=== PATIENT | female | born 1935 | race Caucasian/White ===

== ENCOUNTER 2017-05-30 13:54 | Inpatient (IN) | payer MEDICARE, SELFPAY ==
[2017-05-30] VITALS (15 sets, daily range): BP systolic 128–178; BP diastolic 63–100; PULSE 68–101; RESP 14–20; TEMP 36.5–36.8; O2SAT 96–98; BMI 24.3; BMI 24.1
--- NOTE | 2017-05-30 13:56 | NURSING ---
NO OLD EKGS
--- NOTE | 2017-05-30 14:11 | NURSING ---
NO LW OR POA
--- NOTE | 2017-05-30 14:21 | EKG12_ITS ---
Test Reason : CP Blood Pressure : / mmHG Vent. Rate : 100 BPM Atrial Rate : 100 BPM P-R Int : 166 ms QRS Dur : 102 ms QT Int : 360 ms P-R-T Axes : 063 -43 011 degrees QTc Int : 464 ms Normal sinus rhythm Left axis deviation Nonspecific ST abnormality Abnormal ECG Confirmed by AISHWARYA SOOD ([id number]), editor publications ROSINA ROMAN ([id number]) on 06/04/2017 2:05:06 PM Referred By: LEONILA Confirmed By:AISHWARYA SOOD
--- NOTE | 2017-05-30 14:22 | RAD_ITS ---
STUDY: X-RAY CHEST REASON FOR EXAM: Female, 81 years old. 3 day history of chest pain. TECHNIQUE: Single AP portable view of the chest. COMPARISON: Comparison is made with prior study dated March 22, 2017. FINDINGS: EKG electrodes are seen. Hyperinflation. There is no demonstrated pleural abnormality. Normal size heart. A right-sided dual-chamber pacemaker is seen. Normal mediastinum and nida. Normal visualized pulmonary arteries. There is atherosclerotic calcification of the aortic arch with tortuosity. There are degenerative changes of the visualized thoracic spine. Normal visualized ribs, clavicles, and shoulders. There is no demonstrated abnormality of the visualized soft tissue structures of the upper abdomen. RAD/Chest 1 View (Portable) IMPRESSION: Hyperinflation. The lungs are clear. Electronically Signed: Grabiel Gallagher MD at 14:55 EDT Tel [phone], Service support ,
[2017-05-30] MEDS: Aspirin 81 MG TAB.CHEW 324 MG PO (14:28)
[2017-05-30 14:30] LABS: Absolute Lymphocyte Count 1.82 X10^3/ul (0.83-4.51); Absolute Neutrophil Count 4.4 X10^3/uL (2.0-7.7); Basophil# 0.03 X10^3/uL; Basophil% 0.4 % (0-1); Eosinophil# 0.21 X10^3/uL; Hematocrit 36.3 % (37-47); Hemoglobin 12.4 g/dl (12.0-15.0); Lymphocyte # 1.82 X10^3/ul (4.0); Lymphocyte % 26.4 % (19-41); Mean Corp Hgb Conc 34.2 g/gl (32-36); Mean Corpuscular Volume 93.6 fL (81-99); Mean Platelet Vol. 9.8 fl (6.2-12.0); Monocyte# 0.43 X10^3/uL; Monocyte% 6.2 % (0-10); Neutrophil # 4.39 X10^3/uL (2.7-7.7); Neutrophil % 63.9 % (47-70); Platelet Count 192 K/mm3 (150-450); RBC Distribution Width CV 12.1 % (11.6-14.6); RBC Distribution Width SD 40.9 fl (35.1-43.9); Red Blood Count 3.88 M/mm3 (4.2-5.4); White Blood Count 6.9 K/mm3 (4.4-11.0)
[2017-05-30 14:31] LABS: POSITIVE COUNT NO; POSITIVE DIFFERENTIAL NO; POSITIVE MORPHOLOGY NO
[2017-05-30 14:40] LABS: Anion Gap 10 (5-15); BUN 19 mg/dL (7-18); Calcium,Total 9.3 mg/dL (8.5-10.1); Chloride 106 mmol/L (98-107); EST Glomerular Filtration Rate 57 mL/min (>60); Est Glom Filt Rate - Afr Amer 69 mL/min (>60); Estimated Creatinine Clearance 41.05 ml/min; Glucose 109 mg/dL (74-106); Potassium 4.5 mmol/L (3.5-5.1); Sodium Level 140 mmol/L (136-145)
--- NOTE | 2017-05-30 16:32 | ED.VISSUMM ---
- ER Visit Summary Date of Service: 05/30/17 Chief Complaint: Chest pain History of Present Illness: The patient is a 81 F history of CAD prior [place] pacemaker COPD. Patient states for 3 days she has had gradual intermittent chest pain as a heaviness. This mainly on the right side of her chest and radiates to her right shoulder. She has a pacemaker on that side and says she feels like it is the pocket for the pacemaker was then because it moves from time to time. She does have associated dyspnea. Denies any hemoptysis. No pleuritic nature of the pain. She denies fever or cough. No leg pain or swelling. No recent travel, surgery or hospitalization. No history of DVT or PE. No hemoptysis. Physical Examination: Well-appearing older female. Vital signs are stable afebrile. Pulse ox 90% on room air no signs of hypoxia. HEENT exam unremarkable. Neck nontender no JVD. Lungs clear to auscultation bilaterally. Heart regular rhythm no murmur. Chest wall she does have reproducible chest wall tenderness on the right and along the pacemaker. There is no ecchymosis or bruising. There is no redness or warmth. There is no signs of fluid or infection. There is no subcu air. Abdomen soft nontender. Normal bowel sounds no peritoneal signs. Extremities. Calves are without edema or cords. They are nontender. Neurologically she is awake and alert with no focal deficits. Test Results: Chest x-ray shows normal cardiac silhouette. Pacemaker on the right no acute abnormalities read both by myself and the radiologist. EKG sinus rhythm rate of 100. Nonspecific ST-T wave abnormalities. I do not have an old EKG available. The lady must have him she has had stress test but we cannot find any available at this time for comparison. CBC normal. BMP normal. Her initial troponin is slightly elevated 0.09 I did a repeated 2 hours and 0.12. Emergency Department Course and Treatment: Patient definitely has a reproducible chest wall component to this pain. However she describes as heaviness with shortness of breath. Along with 2 abnormal troponins a second higher than the first she will need admission for further evaluation and workup. I will discuss this with the hospitalist and also her child development director Dr. Abbasi. Treatment Plan: Admission for further cardiac evaluation. Disposition: Admission Impression: Acute chest pain uncertain etiology with abnormal troponin Also chest wall pain Right sided pacemaker History of CAD and [place]. This note was generated with [employer] dictation software. It may contain incorrect words, spelling, and punctuation that were not noted in review of the chart prior to signing ED Disposition - Plan for ED Patient: Chief Complaint: Chest Pain Referrals: Rox Huerta DO [Primary Care Provider] -
--- NOTE | 2017-05-30 16:39 | ED.DCSUM_ITS ---
- ER Visit Summary Date of Service: 05/30/17 Chief Complaint: Chest pain History of Present Illness: The patient is a 81 F history of CAD prior [place] pacemaker COPD. Patient states for 3 days she has had gradual intermittent chest pain as a heaviness. This mainly on the right side of her chest and radiates to her right shoulder. She has a pacemaker on that side and says she feels like it is the pocket for the pacemaker was then because it moves from time to time. She does have associated dyspnea. Denies any hemoptysis. No pleuritic nature of the pain. She denies fever or cough. No leg pain or swelling. No recent travel, surgery or hospitalization. No history of DVT or PE. No hemoptysis. Physical Examination: Well-appearing older female. Vital signs are stable afebrile. Pulse ox 90% on room air no signs of hypoxia. HEENT exam unremarkable. Neck nontender no JVD. Lungs clear to auscultation bilaterally. Heart regular rhythm no murmur. Chest wall she does have reproducible chest wall tenderness on the right and along the pacemaker. There is no ecchymosis or bruising. There is no redness or warmth. There is no signs of fluid or infection. There is no subcu air. Abdomen soft nontender. Normal bowel sounds no peritoneal signs. Extremities. Calves are without edema or cords. They are nontender. Neurologically she is awake and alert with no focal deficits. Test Results: Chest x-ray shows normal cardiac silhouette. Pacemaker on the right no acute abnormalities read both by myself and the radiologist. EKG sinus rhythm rate of 100. Nonspecific ST-T wave abnormalities. I do not have an old EKG available. The lady must have him she has had stress test but we cannot find any available at this time for comparison. CBC normal. BMP normal. Her initial troponin is slightly elevated 0.09 I did a repeated 2 hours and 0.12. Emergency Department Course and Treatment: Patient definitely has a reproducible chest wall component to this pain. However she describes as heaviness with shortness of breath. Along with 2 abnormal troponins a second higher than the first she will need admission for further evaluation and workup. I will discuss this with the hospitalist and also her satellite project site monitor Dr. Abbasi. Treatment Plan: Admission for further cardiac evaluation. Disposition: Admission Impression: Acute chest pain uncertain etiology with abnormal troponin Also chest wall pain Right sided pacemaker History of CAD and [place]. This note was generated with [employer] dictation software. It may contain incorrect words, spelling, and punctuation that were not noted in review of the chart prior to signing ED Disposition - Plan for ED Patient: Chief Complaint: Chest Pain Referrals: Rox Huerta DO [Primary Care Provider] -
--- NOTE | 2017-05-30 17:03 | NURSING ---
106 CP, BORDERLINE ELEVATED TROP ASHELFAH
--- NOTE | 2017-05-30 17:25 | PCM.HP.STD ---
Problem List (1) COPD (chronic obstructive pulmonary disease) Status: Chronic (2) Status post placement of cardiac pacemaker Status: Chronic (3) Hypothyroidism Status: Chronic (4) Hypertension Status: Chronic History of Present Illness Date of Admission: 05/30/17 Chief Complaint: Chest pain The patient is a 81 year old F with past medical history as mentioned above presented to the emergency room because of chest pain. Her symptoms started 2 days ago with right-sided chest pain, around her pacemaker and just down to it, dull aching pain, brought up by activity, intermittent pain, 7 out of 10 in severity, not radiating, associated with mild shortness of breath, aggravated by activity and without relieving factors. She denied associated dizziness, lightheadedness, syncope or presyncope. She mentioned that the pain is only around the pacemaker and pacemaker pops up when she lay on her left side. In the emergency room, her vital signs were stable. Her routine blood work was unremarkable. Her chest x-ray showed no acute findings. EKG revealed normal sinus rhythm without acute ischemic changes. Her first troponin was 0.09 and a second troponin went up to 0.12. She is being admitted for chest pain and borderline elevated troponin for evaluation. Past Medical History Past Medical History (Chronic Problems): Chronic Problems COPD (chronic obstructive pulmonary disease) (Chronic) Status post placement of cardiac pacemaker (Chronic) Left foot pain (Chronic) Ganglion cyst of left foot (Chronic) Bone spur of foot (Chronic) Hypothyroidism (Chronic) Hypertension (Chronic) Allergies metformin Allergy (Verified 05/30/17 14:00) Unknown Penicillins [PCN] Allergy (Verified 05/30/17 14:00) Unknown Home Medications: Ambulatory Orders Medication Instructions Recorded Cholecalciferol (VIT D3) [Vitamin 1,000 unit PO DAILY 04/16/15 D] Lansoprazole [Prevacid] 30 mg PO DAILY 04/16/15 Levothyroxine Sodium [Unithroid] 50 mcg PO DAILY 04/16/15 Lisinopril [Zestril] 10 mg PO DAILY 04/16/15 Fluticasone/Salmeterol [Advair 1 each IH BID 12/01/16 250-50 Diskus] Ipratropium/Albuterol Respimat 1 puff INHALATION BID 12/01/16 [Combivent Respimat Inhal [place]] Buspirone HCl [Buspirone HCl] 7.5 mg PO BID 05/30/17 Ipratropium/Albuterol Sulfate 3 ml INHALATION BID PRN 05/30/17 [Duoneb] Surgical History: noncontributory Psychiatric History: No pertinent psych hx 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 Denies: Edema, Heaviness, Light Headedness, Orthopnea, Palpitations, Paroxysmal Noc. Dyspnea, Syncope Respiratory: Reports: Shortness of Breath. Denies: Cough, Pleuritic Pain, Sputum production, Wheezing Gastrointestinal: Denies: Abdominal Pain, Constipation, Diarrhea, Dyspepsia, Nausea, Vomiting Genitourinary: Denies: Dysuria, Frequency, Hematuria Musculoskeletal: Denies: Arm Pain, Back Pain, Foot Pain Skin: Denies: Dryness, Rash Neurological: Denies: Balance problems, Double vision, Change in Speech, Slurred speech, Confusion, Focal weakness, Headaches, Incoordination Psychiatric: Denies: Anxiety, Depression Endocrine: Denies: Change in Body Habitus, Polydipsia VTE Information - Inpt Only VTE Present on Admission: No VTE Mechan Device Prophylaxis: None VTE Pharm Prophylaxis ordered?: Yes - Physical Exam General: Alert, Oriented x3, Cooperative, No apparent distress HEENT: Atraumatic, PERRLA, EOMI Oral: Moist Mucosa, No Gingival or Mucosal Lesions/ Ulcerations Neck: Supple, No JVD, Negative Carotid Bruits, Trachea Midline, Thyroid Normal Size and Texture Lungs: Clear to auscultation, No rhonchi, No wheeze, No rales, Diminished Cardiovascular: Regular rate, Regular Rhythm, Normal S1, Normal S2, PMI Normal Abdomen: Bowel Sounds Present, Soft, Non Tender, Non-Distended, No Hepato-splenomegaly Extremities: No clubbing, No cyanosis, No edema Skin: No rashes, No breakdown Lymphatic: No Cervical, Supraclavicular, or Inguinal Adenopathy Neurological: Cranial nerves II-XII grossly intact, Motor Exam 5/5 strength throughout Psych/Mental Status: Normal Affect, Appropriate, Alert and oriented to time, place, person, mood and affect Vital Signs Temp Pulse Resp BP Pulse Ox 98.0 F 91 14 162/89 H 97 05/30/17 13:54 05/30/17 17:00 05/30/17 16:09 05/30/17 17:00 05/30/17 17:00 Laboratory Tests 05/30/17 05/30/17 05/30/17 Range/Units 15:48 14:00 14:00 WBC 6.9 (4.4-11.0) K/mm3 RBC 3.88 L (4.2-5.4) M/mm3 Hgb 12.4 (12.0-15.0) g/dl Hct 36.3 L (37-47) % MCV 93.6 (81-99) fL MCH 32.0 (27.0-32.0) pg MCHC 34.2 (32-36) g/gl RDW 12.1 (11.6-14.6) % RDW Differential 40.9 (35.1-43.9) fl Plt Count 192 (150-450) K/mm3 MPV 9.8 (6.2-12.0) fl Immature Gran % (Auto) 0.100 (0.0-0.9) % Neut % (Auto) 63.9 (47-70) % Lymph % (Auto) 26.4 (19-41) % [place] % (Auto) 6.2 (0-10) % Eos % (Auto) 3.0 (0-5) % Baso % (Auto) 0.4 (0-1) % Absolute Neuts (auto) 4.4 (2.0-7.7) X10^3/uL Absolute Lymphs (auto) 1.82 (0.83-4.51) X10^3/ul Total Counted Not Reportable Sodium 140 (136-145) mmol/L Potassium 4.5 (3.5-5.1) mmol/L Chloride 106 (98-107) mmol/L Carbon Dioxide 24.0 (21.0-32.0) mmol/L Anion Gap 10 (5-15) BUN 19 H (7-18) mg/dL Creatinine 1.00 (0.55-1.02) mg/dL Estim Creat Clear Calc 41.05 ml/min Est GFR (MDRD) Af Amer 69 (>60) mL/min Est GFR (MDRD) Non-Af 57 L (>60) mL/min BUN/Creatinine Ratio 19.0 (10-20) RATIO Glucose 109 H (74-106) mg/dL Calcium 9.3 (8.5-10.1) mg/dL Troponin I 0.12 H 0.09 H (<0.06) ng/mL Clinical Impression(s) from Imaging Studies Chest X-Ray 05/30/17 14:22 IMPRESSION: Hyperinflation. The lungs are clear. Electronically Signed: Grabiel Gallagher MD at 14:55 EDT Tel [phone], Service support , Assessment/Plan This is a 81 years old female patient medicine because of right-sided chest pain, found to have borderline elevated troponin and she is being admitted for evaluation. #1 atypical chest pain/borderline elevated troponin: The pain is on the right side and it is around the pacemaker location. Revealed no acute ischemic changes. Troponin was 0.09 initially and then went up to 0.12. Patient mentioned that her pain is improving. Her vital signs are stable. Chest x-ray showed no acute findings. Plan: Admit to PCU, cardiac monitoring, serial cardiac enzymes, repeat EKG tomorrow morning, IV morphine as needed for pain, cardiology consult. #2 hypertension: Blood pressure stable, continue lisinopril. #3 hypothyroidism: Continue levothyroxine. #4 COPD: Clinically stable, pulse ox is normal on room air. Plan to continue Advair, albuterol as needed. Chest x-ray showed no acute findings. #5 status post pacemaker: Not sure why she had this pacemaker. Rate is controlled. Cardiology consulted. #6 DVT prophylaxis: Subcu Lovenox. This note was generated with [employer] software. It may contain incorrect words, spelling, and punctuation that were not noted in checking the note before signing. Code Visit Inpatient E&M: 41169 Init Hosp L3
--- NOTE | 2017-05-30 17:29 | HP.PCM_ITS ---
Problem List (1) COPD (chronic obstructive pulmonary disease) Status: Chronic (2) Status post placement of cardiac pacemaker Status: Chronic (3) Hypothyroidism Status: Chronic (4) Hypertension Status: Chronic History of Present Illness Date of Admission: 05/30/17 Chief Complaint: Chest pain The patient is a 81 year old F with past medical history as mentioned above presented to the emergency room because of chest pain. Her symptoms started 2 days ago with right-sided chest pain, around her pacemaker and just down to it, dull aching pain, brought up by activity, intermittent pain, 7 out of 10 in severity, not radiating, associated with mild shortness of breath, aggravated by activity and without relieving factors. She denied associated dizziness, lightheadedness, syncope or presyncope. She mentioned that the pain is only around the pacemaker and pacemaker pops up when she lay on her left side. In the emergency room, her vital signs were stable. Her routine blood work was unremarkable. Her chest x-ray showed no acute findings. EKG revealed normal sinus rhythm without acute ischemic changes. Her first troponin was 0.09 and a second troponin went up to 0.12. She is being admitted for chest pain and borderline elevated troponin for evaluation. Past Medical History Past Medical History (Chronic Problems): Chronic Problems COPD (chronic obstructive pulmonary disease) (Chronic) Status post placement of cardiac pacemaker (Chronic) Left foot pain (Chronic) Ganglion cyst of left foot (Chronic) Bone spur of foot (Chronic) Hypothyroidism (Chronic) Hypertension (Chronic) Allergies metformin Allergy (Verified 05/30/17 14:00) Unknown Penicillins [PCN] Allergy (Verified 05/30/17 14:00) Unknown Home Medications: Ambulatory Orders Medication Instructions Recorded Cholecalciferol (VIT D3) [Vitamin 1,000 unit PO DAILY 04/16/15 D] Lansoprazole [Prevacid] 30 mg PO DAILY 04/16/15 Levothyroxine Sodium [Unithroid] 50 mcg PO DAILY 04/16/15 Lisinopril [Zestril] 10 mg PO DAILY 04/16/15 Fluticasone/Salmeterol [Advair 1 each IH BID 12/01/16 250-50 Diskus] Ipratropium/Albuterol Respimat 1 puff INHALATION BID 12/01/16 [Combivent Respimat Inhal [place]] Buspirone HCl [Buspirone HCl] 7.5 mg PO BID 05/30/17 Ipratropium/Albuterol Sulfate 3 ml INHALATION BID PRN 05/30/17 [Duoneb] Surgical History: noncontributory Psychiatric History: No pertinent psych hx 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 Denies: Edema, Heaviness, Light Headedness, Orthopnea, Palpitations, Paroxysmal Noc. Dyspnea, Syncope Respiratory: Reports: Shortness of Breath. Denies: Cough, Pleuritic Pain, Sputum production, Wheezing Gastrointestinal: Denies: Abdominal Pain, Constipation, Diarrhea, Dyspepsia, Nausea, Vomiting Genitourinary: Denies: Dysuria, Frequency, Hematuria Musculoskeletal: Denies: Arm Pain, Back Pain, Foot Pain Skin: Denies: Dryness, Rash Neurological: Denies: Balance problems, Double vision, Change in Speech, Slurred speech, Confusion, Focal weakness, Headaches, Incoordination Psychiatric: Denies: Anxiety, Depression Endocrine: Denies: Change in Body Habitus, Polydipsia VTE Information - Inpt Only VTE Present on Admission: No VTE Mechan Device Prophylaxis: None VTE Pharm Prophylaxis ordered?: Yes - Physical Exam General: Alert, Oriented x3, Cooperative, No apparent distress HEENT: Atraumatic, PERRLA, EOMI Oral: Moist Mucosa, No Gingival or Mucosal Lesions/ Ulcerations Neck: Supple, No JVD, Negative Carotid Bruits, Trachea Midline, Thyroid Normal Size and Texture Lungs: Clear to auscultation, No rhonchi, No wheeze, No rales, Diminished Cardiovascular: Regular rate, Regular Rhythm, Normal S1, Normal S2, PMI Normal Abdomen: Bowel Sounds Present, Soft, Non Tender, Non-Distended, No Hepato- splenomegaly Extremities: No clubbing, No cyanosis, No edema Skin: No rashes, No breakdown Lymphatic: No Cervical, Supraclavicular, or Inguinal Adenopathy Neurological: Cranial nerves II-XII grossly intact, Motor Exam 5/5 strength throughout Psych/Mental Status: Normal Affect, Appropriate, Alert and oriented to time, place, person, mood and affect Vital Signs Temp Pulse Resp BP Pulse Ox 98.0 F 91 14 162/89 H 97 05/30/17 13:54 05/30/17 17:00 05/30/17 16:09 05/30/17 17:00 05/30/17 17:00 Laboratory Tests 3 05/30/17 05/30/17 05/30/17 Range/Units 15:48 14:00 14:00 WBC 6.9 (4.4-11.0) K/mm3 RBC 3.88 L (4.2-5.4) M/mm3 Hgb 12.4 (12.0-15.0) g/dl Hct 36.3 L (37-47) % MCV 93.6 (81-99) fL MCH 32.0 (27.0-32.0) pg MCHC 34.2 (32-36) g/gl RDW 12.1 (11.6-14.6) % RDW Differential 40.9 (35.1-43.9) fl Plt Count 192 (150-450) K/mm3 MPV 9.8 (6.2-12.0) fl Immature Gran % (Auto) 0.100 (0.0-0.9) % Neut % (Auto) 63.9 (47-70) % Lymph % (Auto) 26.4 (19-41) % Person % (Auto) 6.2 (0-10) % Eos % (Auto) 3.0 (0-5) % Baso % (Auto) 0.4 (0-1) % Absolute Neuts (auto) 4.4 (2.0-7.7) X10^3/uL Absolute Lymphs (auto) 1.82 (0.83-4.51) X10^3/ul Total Counted Not Reportable Sodium 140 (136-145) mmol/L Potassium 4.5 (3.5-5.1) mmol/L Chloride 106 (98-107) mmol/L Carbon Dioxide 24.0 (21.0-32.0) mmol/L Anion Gap 10 (5-15) BUN 19 H (7-18) mg/dL Creatinine 1.00 (0.55-1.02) mg/dL Estim Creat Clear Calc 41.05 ml/min Est GFR (MDRD) Af Amer 69 (>60) mL/min Est GFR (MDRD) Non-Af 57 L (>60) mL/min BUN/Creatinine Ratio 19.0 (10-20) RATIO Glucose 109 H (74-106) mg/dL Calcium 9.3 (8.5-10.1) mg/dL Troponin I 0.12 H 0.09 H (<0.06) ng/mL Clinical Impression(s) from Imaging Studies Chest X-Ray 05/30/17 14:22 IMPRESSION: Hyperinflation. The lungs are clear. Electronically Signed: Grabiel Gallagher MD at 14:55 EDT Tel [phone], Service support , Assessment/Plan This is a 81 years old female patient medicine because of right-sided chest pain , found to have borderline elevated troponin and she is being admitted for evaluation. #1 atypical chest pain/borderline elevated troponin: The pain is on the right side and it is around the pacemaker location. Revealed no acute ischemic changes. Troponin was 0.09 initially and then went up to 0.12. Patient mentioned that her pain is improving. Her vital signs are stable. Chest x-ray showed no acute findings. Plan: Admit to PCU, cardiac monitoring, serial cardiac enzymes, repeat EKG tomorrow morning, IV morphine as needed for pain, cardiology consult. #2 hypertension: Blood pressure stable, continue lisinopril. #3 hypothyroidism: Continue levothyroxine. #4 COPD: Clinically stable, pulse ox is normal on room air. Plan to continue Advair, albuterol as needed. Chest x-ray showed no acute findings. #5 status post pacemaker: Not sure why she had this pacemaker. Rate is controlled. Cardiology consulted. #6 DVT prophylaxis: Subcu Lovenox. This note was generated with [employer] software. It may contain incorrect words, spelling, and punctuation that were not noted in checking the note before signing. Code Visit Inpatient E&M: 84990 Init Hosp L3
--- NOTE | 2017-05-30 17:30 | ED.RN ---
DR. SAUCEDA WANTS TO SEE PT PRIOR TO GOING TO PCU.
--- NOTE | 2017-05-30 17:48 | CON.PCM_ITS ---
Reason for Consult Date of Consultation: 05/30/17 Reason for Consultation: Chest discomfort. History of Present Illness: The patient is a 81 year old F with past medical history consisting of coronary artery disease status post pacemaker placement who presented to the emergency room because of chest pain. Her symptoms started 2 days ago with right-sided chest pain, around her pacemaker and just down to it, dull aching pain, brought up by activity, intermittent pain, 7 out of 10 in severity, not radiating, associated with mild shortness of breath, aggravated by activity and without relieving factors. She denied associated dizziness, lightheadedness, syncope or presyncope. She mentioned that the pain is only around the pacemaker and pacemaker pops up when she lay on her left side. The pain around her pacemaker site however is different from this discomfort that she had. She had been seen in the office last fall and complained of mild chest discomfort and underwent a pharmacologic myocardial perfusion stress test in January 2017 which did not demonstrate any evidence of ischemia. You do remember that her last catheterization was performed in 2011. At that time demonstrated ejection fraction of 65%, left anterior descending artery with 20-30% proximal stenosis, first diagonal vessel with 50% ostial stenosis, small septal hspt tutor with 2030% stenosis in the circumflex artery 20% stenosis. Medical therapy was recommended. In the emergency room, her vital signs were stable. Her routine blood work was unremarkable. Her chest x-ray showed no acute findings. EKG revealed normal sinus rhythm without acute ischemic changes. Her first troponin was 0.09 and a second troponin went up to 0.12. I was called because of concerns regarding the elevated troponin and chest pain. She currently is pain-free. Past Medical History Allergies/Adverse Reactions: Allergies metformin Allergy (Verified 05/30/17 14:00) Unknown Penicillins [PCN] Allergy (Verified 05/30/17 14:00) Unknown Home Medications: Ambulatory Orders Medication Instructions Recorded Cholecalciferol (VIT D3) [Vitamin 1,000 unit PO DAILY 04/16/15 D] Lansoprazole [Prevacid] 30 mg PO DAILY 04/16/15 Levothyroxine Sodium [Unithroid] 50 mcg PO DAILY 04/16/15 Lisinopril [Zestril] 10 mg PO DAILY 04/16/15 Fluticasone/Salmeterol [Advair 1 each IH BID 12/01/16 250-50 Diskus] Ipratropium/Albuterol Respimat 1 puff INHALATION BID 12/01/16 [Combivent Respimat Inhal Fate] Buspirone HCl [Buspirone HCl] 7.5 mg PO BID 05/30/17 Ipratropium/Albuterol Sulfate 3 ml INHALATION BID PRN 05/30/17 [Duoneb] Past Medical History (Chronic Problems): Chronic Problems COPD (chronic obstructive pulmonary disease) (Chronic) Status post placement of cardiac pacemaker (Chronic) Left foot pain (Chronic) Ganglion cyst of left foot (Chronic) Bone spur of foot (Chronic) Hypothyroidism (Chronic) Hypertension (Chronic) Surgical History: noncontributory Psychiatric History: No pertinent psych hx MEDICAL POLICY SPECIALIST History: No pertinent MEDICAL POLICY SPECIALIST history - *Family History Maternal History Items: No pertinent history Paternal History Items: No pertinent history Smoking Status: Former smoker Alcohol: None Drugs: None Review of Systems - Review of Systems General: Denies: Fever, Night Sweats, Fatigue Cardiovascular: Reports: Chest Discomfort, Chest Discomfort at Rest. Denies: Shortness of Breath, Orthopnea, PND, Peripheral Edema, Palpitations, Lightheadedness, Dizziness, Near Syncope, Syncope Respiratory: Denies: Cough, Sputum Production, Hemoptysis Gastrointestinal: Denies: Hematemesis, Hematochezia, Melena Genitourinary: Denies: Dysuria, Hematuria Skin: Denies: Rash Subjectve: Pleasant lady in no apparent distress Objective: Vital Signs Temp Pulse Resp BP Pulse Ox 98.0 F 91 14 162/89 H 97 05/30/17 13:54 05/30/17 17:00 05/30/17 16:09 05/30/17 17:00 05/30/17 17:00 General: Awake, Alert, Oriented x 3 HEENT: PERRL, EOMI, Sclera Non Icteric Neck: Supple, Good ROM, No Lymph Node Enlargement Chest Wall: - - Pacer right chest cavity. Lungs: Clear to auscultation Cardiovascular: Regular Rhythm, Normal S1, Normal S2, No Murmurs, No Rubs, No Gallops Vascular: No Carotid Bruits, Normal Femoral Pulses, Normal Radial Pulses, Normal Dorsalis Pedal Pulse, Normal Posterior Tibial Pulses Abdomen: Bowel Sounds Present, Soft, Non Tender, No HSM, No Organomegaly Extremities: No Cyanosis, No Clubbing, No edema Neurological: No Focal Motor or Sensory Deficit Psych/Mental Status: Appropriate Rhythm: EKG: Normal sinus rhythm with nonspecific ST-T wave changes incomplete right bundle branch block. Assessment/Plan 1. Chest pain. Patient presents with chest pain with a different location but with concerning pattern. She also has an abnormal cardiac troponin enzyme. She did have mild coronary artery disease documented approximately 6 years ago and recently had a myocardial perfusion stress test which demonstrated no evidence of ischemia. On the basis of the above as well as the elevated troponin I do not think there is a reason to repeat stress testing. It may be prudent to proceed with a cardiac catheterization to exclude any progression of coronary disease. More than likely it may be secondary to small vessel disease. I have discussed this with her and in the presence of her other family members and she agrees to proceed. We will schedule this on . 2. Hypertension Her blood pressure is under good control on the current medical therapy and I would not suggest making any major changes at this time. 3. Status post pacemaker placement She is status post pacemaker placement with change out. She has been following up in the office and my plan for now is for her to continue office follow-up. Thank you for allowing me to participate in the care of your patient. Please don't hesitate to call if any issues arise
[2017-05-30] MEDS: Clopidogrel Bisulfate 300 MG Tablet PO (18:22)
--- NOTE | 2017-05-30 19:41 | EKG12_ITS ---
Test Reason : CP Blood Pressure : / mmHG Vent. Rate : 081 BPM Atrial Rate : 081 BPM P-R Int : 170 ms QRS Dur : 110 ms QT Int : 412 ms P-R-T Axes : 069 -48 -19 degrees QTc Int : 478 ms Normal sinus rhythm Right bundle branch block Left anterior fascicular block Bifascicular block Abnormal ECG When compared with ECG of 30-MAY-2017 13:56, MANUAL COMPARISON REQUIRED, DATA IS UNCONFIRMED Confirmed by AISHWARYA SOOD ([id number]), non linear editor ROSINA ROMAN ([id number]) on 06/04/2017 2:44:59 PM Referred By: DR BALDERRAMA Confirmed By:AISHWARYA SOOD
[2017-05-30] MEDS: Nitroglycerin Oint 1 INCH PACKET TRANSDERM. (20:58)
--- NOTE | 2017-05-30 22:59 | NURSING ---
Nitro paste was applied unscheduled at 2057. Next dose is due at 0000. RN called pharmacy to ask for doses to be retimed. Jian in pharmacy said to give next dose at 0130 and continue regular schedule after that.
[2017-05-31] VITALS (26 sets, daily range): BP systolic 95–147; BP diastolic 48–84; PULSE 60–83; RESP 11–23; TEMP 36.4–36.9; O2SAT 92–100
[2017-05-31] MEDS: Nitroglycerin Oint 1 INCH PACKET TRANSDERM. ×2 (01:38→06:24)
--- NOTE | 2017-05-31 03:50 | NURSING ---
Pt does not want to watch heart video at this time.
--- NOTE | 2017-05-31 05:55 | EKG12_ITS ---
Test Reason : AM Blood Pressure : / mmHG Vent. Rate : 067 BPM Atrial Rate : 067 BPM P-R Int : 126 ms QRS Dur : 108 ms QT Int : 478 ms P-R-T Axes : 030 -48 -49 degrees QTc Int : 505 ms Suspect unspecified pacemaker failure Sinus rhythm with occasional Premature ventricular complexes alternating with paced atrial rhythm Right bundle branch block Left anterior fascicular block Prolonged QT Abnormal ECG When compared with ECG of 30-MAY-2017 20:35, MANUAL COMPARISON REQUIRED, DATA IS UNCONFIRMED Confirmed by AISHWARYA SOOD ([id number]), editor producer ROSINA ROMAN ([id number]) on 06/04/2017 2:47:15 PM Referred By: REDDY Confirmed By:AISHWARYA SOOD
[2017-05-31] MEDS: 0.9% Normal Saline 1,000 ML 15 ML IV (06:24)
[2017-05-31] MEDS: Levothyroxine 50 MCG Tablet PO (06:24)
[2017-05-31] MEDS: Albuterol 2.5 MG/3 ML VIAL.NEB. INHALATION ×2 (06:50→18:46)
[2017-05-31] MEDS: Budesonide Respules 0.5 MG/2 ML AMPUL.NEB. INHALATION ×2 (06:50→18:46)
[2017-05-31 06:59] LABS: Color, Urine Yellow (Yellow); Glucose, Dipstick Normal (Normal); Ketone-Dipstick Negative (Negative); Leukocyte Esterase-Dipstick 500 /ul (Negative); Nitrite-Dipstick Negative (Negative); Occult Blood-Urine Negative /ul (Negative); Protein-Dipstick Negative (Negative); Urine Bilirubin Dipstick Negative (Negative); Urine Clarity Clear (Clear); Urine Urobilinogen Normal (Normal); Urine pH 6.5 (5.0 - 8.0)
[2017-05-31] MEDS: Clopidogrel Bisulfate 75 MG Tablet PO (07:18)
[2017-05-31] MEDS: Lisinopril 10 MG Tablet PO (07:18)
[2017-05-31 08:04] LABS: Absolute Lymphocyte Count 1.77 X10^3/ul (0.83-4.51); Absolute Neutrophil Count 4.1 X10^3/uL (2.0-7.7); Basophil# 0.02 X10^3/uL; Basophil% 0.3 % (0-1); Eosinophil# 0.24 X10^3/uL; Eosinophils% 3.6 % (0-5); Hematocrit 34.7 % (37-47); Hemoglobin 11.6 g/dl (12.0-15.0); Lymphocyte # 1.77 X10^3/ul (4.0); Lymphocyte % 26.5 % (19-41); Mean Corp Hgb Conc 33.4 g/gl (32-36); Mean Corpuscular Hgb 31.3 pg (27.0-32.0); Mean Corpuscular Volume 93.5 fL (81-99); Mean Platelet Vol. 9.3 fl (6.2-12.0); Monocyte# 0.52 X10^3/uL; Monocyte% 7.8 % (0-10); Neutrophil # 4.13 X10^3/uL (2.7-7.7); Neutrophil % 61.7 % (47-70); Platelet Count 157 K/mm3 (150-450); RBC Distribution Width CV 12.5 % (11.6-14.6); RBC Distribution Width SD 42.4 fl (35.1-43.9); Red Blood Count 3.71 M/mm3 (4.2-5.4); White Blood Count 6.7 K/mm3 (4.4-11.0)
[2017-05-31 08:07] LABS: International Normalized Ratio 1.1; Prothrombin Time (Protime)PT. 13.7 SECONDS (11.7-14.9)
[2017-05-31 08:08] LABS: Partial Thromboplast Time 33.8 Seconds (24.1-36.2)
[2017-05-31 08:13] LABS: POSITIVE COUNT NO; POSITIVE DIFFERENTIAL NO; POSITIVE MORPHOLOGY NO
[2017-05-31 08:18] LABS: Anion Gap 8 (5-15); BUN 14 mg/dL (7-18); BUN/Creat Ratio 16.4 RATIO (10-20); Calcium,Total 8.7 mg/dL (8.5-10.1); Chloride 109 mmol/L (98-107); Creatinine, Serum 0.86 mg/dL (0.55-1.02); EST Glomerular Filtration Rate 68 mL/min (>60); Est Glom Filt Rate - Afr Amer 82 mL/min (>60); Estimated Creatinine Clearance 47.73 ml/min; Glucose 99 mg/dL (74-106); Potassium 4.2 mmol/L (3.5-5.1); Sodium Level 142 mmol/L (136-145)
[2017-05-31] MEDS: Pantoprazole Sodium 40 MG Tablet PO (11:18)
--- NOTE | 2017-05-31 12:43 | PCM.PN.CARD ---
Subjectve: Patient seen and evaluated. Objective: Vital Signs Temp Pulse Resp BP Pulse Ox 98.5 F 76 16 109/65 95 05/31/17 07:48 05/31/17 11:03 05/31/17 07:48 05/31/17 07:48 05/31/17 07:48 Oxygen Delivery Method Room Air Weight: 145 lb 3.2 oz Body Mass Index (BMI) 24.1 Intake and Output for Last 24 Hours 05/29/17 05/30/17 05/31/17 23:59 23:59 23:59 Intake Total 924 / 924 60 60 Balance 924 / 924 60 General: Awake, Alert, Oriented x 3 HEENT: PERRL, EOMI, Sclera Non Icteric Neck: Supple, Good ROM, No Lymph Node Enlargement Lungs: Clear to auscultation Cardiovascular: Regular Rhythm, Normal S1, Normal S2, No Murmurs, No Rubs, No Gallops Vascular: No Carotid Bruits, Normal Femoral Pulses, Normal Radial Pulses, Normal Dorsalis Pedal Pulse, Normal Posterior Tibial Pulses Abdomen: Bowel Sounds Present, Soft, Non Tender, No HSM, No Organomegaly Extremities: No Cyanosis, No Clubbing, No edema Neurological: No Focal Motor or Sensory Deficit 05/30/17 21:17: Troponin I 0.14 H 05/31/17 01:48: Troponin I 0.19 H 05/31/17 06:00: Urine Color Yellow, Urine Clarity Clear, Urine pH 6.5, Ur Specific [place] 1.010, Urine Protein Negative, Urine Glucose (UA) Normal, Urine Ketones Negative, Urine Occult Blood Negative, Urine Nitrite Negative, Urine Bilirubin Negative, Urine Urobilinogen Normal, Ur Leukocyte Esterase 500 H 05/31/17 07:43: WBC 6.7, RBC 3.71 L, Hgb 11.6 L, Hct 34.7 L, MCV 93.5, MCH 31.3, MCHC 33.4, RDW 12.5, RDW Differential 42.4, Plt Count 157, MPV 9.3, Immature Gran % (Auto) 0.100, Neut % (Auto) 61.7, Lymph % (Auto) 26.5, Gem % (Auto) 7.8, Eos % (Auto) 3.6, Baso % (Auto) 0.3, Absolute Neuts (auto) 4.1, Total Counted Not Reportable 05/31/17 07:43: Sodium 142, Potassium 4.2, Chloride 109 H, Carbon Dioxide 25.0, Anion Gap 8, BUN 14, Creatinine 0.86, Est GFR (MDRD) Af Amer 82, Est GFR (MDRD) Non-Af 68, BUN/Creatinine Ratio 16.4, Glucose 99, Calcium 8.7 05/31/17 07:43: PT 13.7, INR 1.1, APTT 33.8 Rhythm: EKG: Normal sinus rhythm with no acute changes. Assessment/Plan 1. Chest pain. Patient presents with chest pain with a different location but with concerning pattern. She also has an abnormal cardiac troponin enzyme. She underwent cardiac catheterization today which demonstrated the following: Left main coronary artery which is normal. Left anterior descending artery with mild disease. First septal director of trauma with ostial 30-40% stenosis. Dominant left circumflex artery with mid tandem 80% stenotic lesions. Nondominant right coronary artery with ostial 40% stenosis. Preserved left ventricular systolic function. Based on the above angiographic findings the patient will be considered for angioplasty and stenting of the circumflex artery. Above discussed with interventionalist and patient. 2. Hypertension Her blood pressure is under good control on the current medical therapy and I would not suggest making any major changes at this time. 3. Status post pacemaker placement She is status post pacemaker placement with change out. She has been following up in the office and my plan for now is for her to continue office follow-up. Thank you for allowing me to participate in the care of your patient. Please don't hesitate to call if any issues arise
--- NOTE | 2017-05-31 12:46 | PN.CARD_ITS ---
Subjectve: Patient seen and evaluated. Objective: Vital Signs Temp Pulse Resp BP Pulse Ox 98.5 F 76 16 109/65 95 05/31/17 07:48 05/31/17 11:03 05/31/17 07:48 05/31/17 07:48 05/31/17 07:48 Oxygen Delivery Method Room Air Weight: 145 lb 3.2 oz Body Mass Index (BMI) 24.1 Intake and Output for Last 24 Hours 05/29/17 05/30/17 05/31/17 23:59 23:59 23:59 Intake Total 924 / 924 60 60 Balance 924 / 924 60 General: Awake, Alert, Oriented x 3 HEENT: PERRL, EOMI, Sclera Non Icteric Neck: Supple, Good ROM, No Lymph Node Enlargement Lungs: Clear to auscultation Cardiovascular: Regular Rhythm, Normal S1, Normal S2, No Murmurs, No Rubs, No Gallops Vascular: No Carotid Bruits, Normal Femoral Pulses, Normal Radial Pulses, Normal Dorsalis Pedal Pulse, Normal Posterior Tibial Pulses Abdomen: Bowel Sounds Present, Soft, Non Tender, No HSM, No Organomegaly Extremities: No Cyanosis, No Clubbing, No edema Neurological: No Focal Motor or Sensory Deficit 05/30/17 21:17: Troponin I 0.14 H 05/31/17 01:48: Troponin I 0.19 H 05/31/17 06:00: Urine Color Yellow, Urine Clarity Clear, Urine pH 6.5, Ur Specific [place] 1.010, Urine Protein Negative, Urine Glucose (UA) Normal, Urine Ketones Negative, Urine Occult Blood Negative, Urine Nitrite Negative, Urine Bilirubin Negative, Urine Urobilinogen Normal, Ur Leukocyte Esterase 500 H 05/31/17 07:43: WBC 6.7, RBC 3.71 L, Hgb 11.6 L, Hct 34.7 L, MCV 93.5, MCH 31.3 , MCHC 33.4, RDW 12.5, RDW Differential 42.4, Plt Count 157, MPV 9.3, Immature Gran % (Auto) 0.100, Neut % (Auto) 61.7, Lymph % (Auto) 26.5, [place] % (Auto) 7.8 , Eos % (Auto) 3.6, Baso % (Auto) 0.3, Absolute Neuts (auto) 4.1, Total Counted Not Reportable 05/31/17 07:43: Sodium 142, Potassium 4.2, Chloride 109 H, Carbon Dioxide 25.0, Anion Gap 8, BUN 14, Creatinine 0.86, Est GFR (MDRD) Af Amer 82, Est GFR (MDRD) Non-Af 68, BUN/Creatinine Ratio 16.4, Glucose 99, Calcium 8.7 05/31/17 07:43: PT 13.7, INR 1.1, APTT 33.8 Rhythm: EKG: Normal sinus rhythm with no acute changes. Assessment/Plan 1. Chest pain. Patient presents with chest pain with a different location but with concerning pattern. She also has an abnormal cardiac troponin enzyme. She underwent cardiac catheterization today which demonstrated the following: Left main coronary artery which is normal. Left anterior descending artery with mild disease. First septal client service executive with ostial 30-40% stenosis. Dominant left circumflex artery with mid tandem 80% stenotic lesions. Nondominant right coronary artery with ostial 40% stenosis. Preserved left ventricular systolic function. Based on the above angiographic findings the patient will be considered for angioplasty and stenting of the circumflex artery. Above discussed with interventionalist and patient. 2. Hypertension Her blood pressure is under good control on the current medical therapy and I would not suggest making any major changes at this time. 3. Status post pacemaker placement She is status post pacemaker placement with change out. She has been following up in the office and my plan for now is for her to continue office follow-up. Thank you for allowing me to participate in the care of your patient. Please don't hesitate to call if any issues arise
--- NOTE | 2017-05-31 12:50 | CL.D_ITS ---
Patient Name: MICK CHINCHILLA Study Date: 05/31/2017 Performing: Pako Abbasi MD Ht: 64.96 inches 165 cm : 1935 Wt: 145.51 lbs 66 kg Age: 81 Gender: female BSA: 1.73 PROCEDURE(S) PERFORMED [id number]/COR/LV CLINICAL PROFILE AND INDICATIONS INDICATIONS: 81-year-old lady with a history of unstable angina. Stress/Imaging Stress/Image Study Performed: No Angina Classification Anginal Classification w/in 2 Weeks: CCS III CAD Presentations: Unstable angina. CONCLUSIONS Significant sequential left circumflex artery stenosis. In a dominant vessel. RECOMMENDATIONS Referred for immediate PCI DESCRIPTION OF PROCEDURE The patient arrived to the procedure lab. The risks and benefits of the procedure as well as a full d escription of our services here and current unavailability of surgical backup were fully explained to the patient and/or their significant other prior to the catheterization. The Timeout was completed, verifying the correct patient and procedure. The patient's procedural site was prepped and draped in the usual fashion. Local anesthetic was given subcutaneously to right groin region with Lidocaine 2%. Using a modified Seldinger technique, Left Coronary Artery selective angiography was performed in multiple views using a 5 Fr. JL4 catheter. Right Coronary Artery selective angiography was then perfo rmed in multiple views using a 5 Fr. 3DRC (Jong) catheter. Left Ventriculography was performed in MCLEOD projection using a 5 Fr. Pigtail catheter. LV to AO pullback pressures were then recorded. CORONARY ANGIOGRAPHY DOMINANCE: Left Dominant LEFT HEART ASSESSMENT Left Ventricular Ejection Fraction: by LV Gram 60 % Normal LV wall motion Normal Left Ventricular systolic function LEFT MAIN: Angiographically normal LEFT ANTERIOR DECENDING ARTERY: Mild luminal irregularities CIRCUMFLEX ARTERY: MID CIRC: Tandem sequential 80% stenosis noted RIGHT CORONARY ARTERY: OSTIAL RCA: 40 % Stenosis COMPLICATIONS PROCEDURE MEDICATIONS Versed 1 mg IV Oxygen: 2 L/min via nasal cannula Baby Aspirin (81mg) 81 Tabs PO @ 05/31/2017 12:22:34 Heparin 6000 unit(s) IV 05/31/2017 12:44:29 Nitro 200 mcg IC 05/31/2017 12:45:50 SUMMARY OF HEMODYNAMIC DATA Time AIR REST ECG 12:10:37 AO 84/56 (69) SA 12:25:35 LV 108/-16, 2 12:33:54 LV 115/-17, 1 12:34:03 LV 124/-6, 14 12:35:48 LVp 123/-6, 14 12:35:51 AOp 125/58 (87) 12:35:56 Signed By Pako Abbasi MD On 05/31/2017 12:49:28 Pako Abbasi MD
--- NOTE | 2017-05-31 13:17 | CL.I_ITS ---
Patient Name: MICK CHINCHILLA Study Date: 05/31/2017 Performing: Breezy Johnson MD Ht: 64.96 inches 165 cm : 1935 Wt: 145.51 lbs 66 kg Age: 81 Gender: female BSA: 1.73 PROCEDURE(S) PERFORMED [id number] W OR WO PTCA, SINGLE CORONARY ARTERY CLINICAL PROFILE AND CO-MORBIDITIES INDICATIONS: 81-year-old lady with a history of unstable angina. Stress/Imaging Stress/Image Study Performed: No Angina Classification Anginal Classification w/in 2 Weeks: CCS III CAD Presentations: Unstable angina. CONCLUSIONS Successful PTCA/AFSHAN of the mid LCX with a 2.5 x 24 Promus Synergy, post dilated proximally with a 2.7 5 x 12 NC balloon; 75%-->0%, no dissection. Successful Mynx closure of RFA. RECOMMENDATIONS Highly recommend quitting all tobacco products Follow up with primary trimming operator Risk factor modification ASA Indefinitley Plavix for at least 12 months Routine post interventional care Refer for Outpatient Cardiac Rehab Manual sheath removal per protocol Follow up with Dr. Abbasi DESCRIPTION OF PROCEDURE The patient arrived to the procedure lab. The risks and benefits of the procedure as well as a full d escription of our services here and current unavailability of surgical backup were fully explained to the patient and/or their significant other prior to the catheterization. The Timeout was completed, verifying the correct patient and procedure. The patient's procedural site was prepped and draped in the usual fashion. Local anesthetic was given subcutaneously to right groin region with Lidocaine 2% Using a modified Seldinger technique, Left Coronary Artery selective angiography was performed in mul tiple views using a 5 Fr. JL4 catheter. Right Coronary Artery selective angiography was then performe d in multiple views using a 5 Fr. 3DRC (Jong) catheter. Left Ventriculography was performed in RA O projection using a 5 Fr. Pigtail catheter. LV to AO pullback pressures were then recorded.The image s were reviewed and options discussed. A decision was then made to proceed with an Intervention, IVUS or other adjunct procedure. Arterial sheath was exchanged for a 6 Fr Sheath Angiogram performed pre balloon dilatation. ebu 3.5 G uide catheter was inserted and engaged into the LCA. bmw Guide wire was advanced to the Circumflex. e merge 2.00 x12 Balloon catheter was advanced across lesion in the circumflex, mid. PTCA balloon infla taniya at 10 atms for 11 secs PTCA balloon inflated at 10 atms for 10 secs Angiogram performed post ball oon dilatation. synergy 2.5 x 24 Drug Eluting stent was advanced across the lesion in the circumflex, mid. Angiogram performed post stent deployment. nc emerge 2.75 x 12 Balloon catheter was inserted po st stent. Angiogram performed post balloon dilatation.. . The arterial sheath was pulled and a Mynx closure device was deployed for hemostasis. INTERVENTION INFORMATION LESION SITE: Circumflex (Mid) Lesion Complexity: High/C, lesion at bifurcation: No, thrombus present: No, lesion length: 24 mm, cul prit lesion: Yes Pre Stenosis: 75 % Pre intervention BENNIE flow: 3 PROCEDURE: Drug Eluting Stent with pre and post dilatation Post Stenosis: 0 % Post intervention BENNIE flow: 3 Lesion Devices: Ramos .014 BMW [place] Straight 190cm Medtronic 6 Fr EBU3.5 100cm Guide Catheter Ernie Sci EMERGE MR 2.00x12 BALLOON Ernie Sci NC EMERGE MR 2.75x12 BALLOON Ernie Sci Synergy MR AFSHAN 2.50x24 COMPLICATIONS No Complications PROCEDURE MEDICATIONS Versed 1 mg IV Oxygen: 2 L/min via nasal cannula Baby Aspirin (81mg) 81 Tabs PO @ 05/31/2017 12:22:34 Heparin 6000 unit(s) IV 05/31/2017 12:44:29 Nitro 200 mcg IC 05/31/2017 12:45:50 Nitro 200 mcg IC 05/31/2017 12:45:50 Nitro 200 mcg IC 05/31/2017 12:50:58 SUMMARY OF HEMODYNAMIC DATA Time AIR REST ECG 12:10:37 AO 84/56 (69) SA 12:25:35 LV 108/-16, 2 12:33:54 LV 115/-17, 1 12:34:03 LV 124/-6, 14 12:35:48 LVp 123/-6, 14 12:35:51 AOp 125/58 (87) 12:35:56 Signed By Breezy Johnson MD On 05/31/2017 13:16:27 Breezy Johnson MD
[2017-05-31 13:25] LABS: ACT Activated Clotting Time 208 sec (74-137)
--- NOTE | 2017-05-31 13:27 | EKG12_ITS ---
Test Reason : POST STENT Blood Pressure : / mmHG Vent. Rate : 068 BPM Atrial Rate : 078 BPM P-R Int : 170 ms QRS Dur : 108 ms QT Int : 420 ms P-R-T Axes : 071 -53 -32 degrees QTc Int : 446 ms Suspect unspecified pacemaker failure Normal sinus rhythm with sinus arrhythmia Right bundle branch block Left anterior fascicular block Bifascicular block Abnormal ECG When compared with ECG of 31-MAY-2017 05:14, MANUAL COMPARISON REQUIRED, DATA IS UNCONFIRMED Confirmed by AISHWARYA SOOD ([id number]), makeup editor ROSINA ROMAN ([id number]) on 06/04/2017 2:35:58 PM Referred By: BARRIE Confirmed By:AISHWARYA SOOD
--- NOTE | 2017-05-31 13:36 | CASEMGMT ---
According to [employer] Medicare website, the following are in-network tertiary facilities: [facility], [place], [facility], [facility], [facility], [facility], and . Romi OSORIO CM
[2017-05-31 14:20] LABS: Hemoglobin 11.1 g/dl (12.0-15.0); Mean Corp Hgb Conc 33.6 g/gl (32-36); Mean Corpuscular Hgb 31.8 pg (27.0-32.0); Mean Corpuscular Volume 94.6 fL (81-99); Mean Platelet Vol. 9.6 fl (6.2-12.0); Platelet Count 169 K/mm3 (150-450); RBC Distribution Width CV 12.4 % (11.6-14.6); RBC Distribution Width SD 41.5 fl (35.1-43.9); Red Blood Count 3.49 M/mm3 (4.2-5.4); White Blood Count 7.5 K/mm3 (4.4-11.0)
[2017-05-31] MEDS: 0.9% Normal Saline 1,000 ML 150 ML IV (14:25)
[2017-05-31 14:34] LABS: CPK Total, Creatine Kinase 134 U/L (26-192)
[2017-05-31 14:35] LABS: Scan Indicated on CBC? Y/N NO
[2017-05-31 20:06] LABS: Hematocrit 31.8 % (37-47); Hemoglobin 10.7 g/dl (12.0-15.0); Mean Corp Hgb Conc 33.6 g/gl (32-36); Mean Corpuscular Volume 95.2 fL (81-99); Mean Platelet Vol. 10.1 fl (6.2-12.0); Platelet Count 180 K/mm3 (150-450); RBC Distribution Width CV 12.7 % (11.6-14.6); RBC Distribution Width SD 44.2 fl (35.1-43.9); Red Blood Count 3.34 M/mm3 (4.2-5.4); White Blood Count 8.2 K/mm3 (4.4-11.0)
[2017-05-31 20:07] LABS: Scan Indicated on CBC? Y/N NO
[2017-05-31 20:26] LABS: CPK Total, Creatine Kinase 108 U/L (26-192)
--- NOTE | 2017-05-31 20:35 | PN_ITS ---
Subjective: Patient is a 81-year-old female with a past medical history of COPD, pacemaker, hypothyroidism, former smoking history and hypertension who presented to the emergency room at [facility] on 05/30/2017 complaining of chest pains. EKG in the ER was unremarkable but the troponin was increased at 0.09. Chest x-ray showed no pleural effusions, pulmonary vascular congestion or infiltrates. CBC was unremarkable. BMP was also unremarkable. She was admitted to a monitored bed on PCU and serial cardiac enzymes were obtained. The fourth troponin had increased to 0.19. She was seen in consultation by Dr. Abbasi and he recommended Cardiac catheterization and the pt and her family were agreeable. Cardiac catheterization showed normal left ventricular wall motion. The left main was angiographically normal, the left anterior descending artery had minimal luminal irregularities but the circumflex artery had tandem sequential 80% stenosis and the ostial RCA was 40% stenosed. Dr. Johnson was consulted and patient underwent successful PTCA/AFSHAN of the mid LCx. Postprocedure she was transferred to the intensive care unit. Current vital signs are pulse rate 68, blood pressure 110/69, Respiratory rate 12 and she was 100% saturated on room air. All lab was personally reviewed. - Physical Exam General: Alert, Oriented x3, Cooperative, No apparent distress Oral: Moist Mucosa Neck: Supple, Trachea Midline Lungs: Clear to auscultation, Diminished Cardiovascular: Regular rate, Regular Rhythm, Normal S1, Normal S2, No rub noted , No Gallop Abdomen: Bowel Sounds Present, Soft, Non Tender, Non-Distended Extremities: No clubbing, No cyanosis, No edema Skin: No rashes Musculoskeletal: Arthritic Changes Neurological: Cranial nerves II-XII grossly intact, Neuro grossly intact Psych/Mental Status: Appropriate Vital Signs Temp Pulse Resp BP Pulse Ox 98.5 F 68 16 110/69 100 05/31/17 07:48 05/31/17 19:00 05/31/17 18:00 05/31/17 18:00 05/31/17 18:00 Oxygen Flow Rate (L/min) 2 Oxygen Delivery Method Nasal Cannula Weight: 145 lb 3.2 oz Body Mass Index (BMI) 24.1 Intake and Output for Last 24 Hours 05/29/17 05/30/17 05/31/17 23:59 23:59 23:59 Intake Total 924 / 924 819 / 819 Output Total 500 / 500 Balance 924 / 924 319 / 319 Laboratory Tests Past 24 Hrs 05/30/17 05/31/17 05/31/17 21:17 01:48 06:00 WBC RBC Hgb Hct MCV MCH MCHC RDW RDW Differential Plt Count MPV Immature Gran % (Auto) Neut % (Auto) Lymph % (Auto) [place] % (Auto) Eos % (Auto) Baso % (Auto) Absolute Neuts (auto) Absolute Lymphs (auto) Total Counted PT INR APTT Activated Clotting Time Sodium Potassium Chloride Carbon Dioxide Anion Gap BUN Creatinine Estim Creat Clear Calc Est GFR (MDRD) Af Amer Est GFR (MDRD) Non-Af BUN/Creatinine Ratio Glucose Calcium Total Creatine Kinase Troponin I 0.14 H 0.19 H Urine Color Yellow Urine Clarity Clear Urine pH 6.5 Ur Specific [place] 1.010 Urine Protein Negative Urine Glucose (UA) Normal Urine Ketones Negative Urine Occult Blood Negative Urine Nitrite Negative Urine Bilirubin Negative Urine Urobilinogen Normal Ur Leukocyte Esterase 500 H 05/31/17 05/31/17 05/31/17 07:43 07:43 07:43 WBC 6.7 RBC 3.71 L Hgb 11.6 L Hct 34.7 L MCV 93.5 MCH 31.3 MCHC 33.4 RDW 12.5 RDW Differential 42.4 Plt Count 157 MPV 9.3 Immature Gran % (Auto) 0.100 Neut % (Auto) 61.7 Lymph % (Auto) 26.5 [place] % (Auto) 7.8 Eos % (Auto) 3.6 Baso % (Auto) 0.3 Absolute Neuts (auto) 4.1 Absolute Lymphs (auto) 1.77 Total Counted Not Reportable PT 13.7 INR 1.1 APTT 33.8 Activated Clotting Time Sodium 142 Potassium 4.2 Chloride 109 H Carbon Dioxide 25.0 Anion Gap 8 BUN 14 Creatinine 0.86 Estim Creat Clear Calc 47.73 Est GFR (MDRD) Af Amer 82 Est GFR (MDRD) Non-Af 68 BUN/Creatinine Ratio 16.4 Glucose 99 Calcium 8.7 Total Creatine Kinase Troponin I Urine Color Urine Clarity Urine pH Ur Specific [place] Urine Protein Urine Glucose (UA) Urine Ketones Urine Occult Blood Urine Nitrite Urine Bilirubin Urine Urobilinogen Ur Leukocyte Esterase 05/31/17 05/31/17 05/31/17 13:04 14:10 14:10 WBC 7.5 RBC 3.49 L Hgb 11.1 L Hct 33.0 L MCV 94.6 MCH 31.8 MCHC 33.6 RDW 12.4 RDW Differential 41.5 Plt Count 169 MPV 9.6 Immature Gran % (Auto) Neut % (Auto) Lymph % (Auto) [place] % (Auto) Eos % (Auto) Baso % (Auto) Absolute Neuts (auto) Absolute Lymphs (auto) Total Counted PT INR APTT Activated Clotting Time 208 H Sodium Potassium Chloride Carbon Dioxide Anion Gap BUN Creatinine Estim Creat Clear Calc Est GFR (MDRD) Af Amer Est GFR (MDRD) Non-Af BUN/Creatinine Ratio Glucose Calcium Total Creatine Kinase 134 Troponin I Urine Color Urine Clarity Urine pH Ur Specific [place] Urine Protein Urine Glucose (UA) Urine Ketones Urine Occult Blood Urine Nitrite Urine Bilirubin Urine Urobilinogen Ur Leukocyte Esterase 05/31/17 05/31/17 19:30 19:30 WBC 8.2 RBC 3.34 L Hgb 10.7 L Hct 31.8 L MCV 95.2 MCH 32.0 MCHC 33.6 RDW 12.7 RDW Differential 44.2 H Plt Count 180 MPV 10.1 Immature Gran % (Auto) Neut % (Auto) Lymph % (Auto) [place] % (Auto) Eos % (Auto) Baso % (Auto) Absolute Neuts (auto) Absolute Lymphs (auto) Total Counted PT INR APTT Activated Clotting Time Sodium Potassium Chloride Carbon Dioxide Anion Gap BUN Creatinine Estim Creat Clear Calc Est GFR (MDRD) Af Amer Est GFR (MDRD) Non-Af BUN/Creatinine Ratio Glucose Calcium Total Creatine Kinase Pending Troponin I Urine Color Urine Clarity Urine pH Ur Specific [place] Urine Protein Urine Glucose (UA) Urine Ketones Urine Occult Blood Urine Nitrite Urine Bilirubin Urine Urobilinogen Ur Leukocyte Esterase Assessment/Plan Impressions 1. NSTEMI 2. S/P PTCA/AFSHAN to the mid circumflex 3. CAD 4. HTN 5. Hypothyroidism 6. history of PM placement 7. COPD Dr. Johnson has ordered lab for the AM.....will add a liver panel Add IS Code Visit Inpatient E&M: 58085 Subs Hosp L2
[2017-05-31 21:24] LABS: AST(SGOT) 20 U/L (15-37); Alanine Aminotransfer ALT/SGPT 18 U/L (13-56); Albumin, Serum 3.6 g/dL (3.2-5.0); Alkaline Phosphatase 63 U/L (45-117); Bilirubin, Direct 0.08 mg/dL (0.00-0.30); Protein, Total 6.6 g/dL (6.4-8.2)
[2017-05-31] MEDS: Metoprolol Tartrate 25 MG Tablet 12.5 MG PO (22:10)
[2017-05-31] MEDS: Atorvastatin Calcium 80 MG Tablet PO (22:13)
[2017-06-01] VITALS (13 sets, daily range): BP systolic 95–124; BP diastolic 56–73; PULSE 60–90; RESP 16–23; TEMP 36.4–36.8; O2SAT 95–99; BMI 24.1
[2017-06-01 01:45] LABS: Hematocrit 32.2 % (37-47); Hemoglobin 10.7 g/dl (12.0-15.0); Mean Corp Hgb Conc 33.2 g/gl (32-36); Mean Corpuscular Hgb 31.5 pg (27.0-32.0); Mean Corpuscular Volume 94.7 fL (81-99); Mean Platelet Vol. 8.9 fl (6.2-12.0); Platelet Count 146 K/mm3 (150-450); RBC Distribution Width CV 12.7 % (11.6-14.6); RBC Distribution Width SD 43.9 fl (35.1-43.9); White Blood Count 7.3 K/mm3 (4.4-11.0)
[2017-06-01 02:02] LABS: Scan Indicated on CBC? Y/N NO
[2017-06-01 02:16] LABS: CPK Total, Creatine Kinase 91 U/L (26-192)
--- NOTE | 2017-06-01 05:55 | EKG12_ITS ---
Test Reason : MORNING EKG Blood Pressure : / mmHG Vent. Rate : 061 BPM Atrial Rate : 061 BPM P-R Int : 172 ms QRS Dur : 108 ms QT Int : 444 ms P-R-T Axes : 078 -55 -42 degrees QTc Int : 446 ms Suspect unspecified pacemaker failure Paced atrial rhythm Right bundle branch block Left anterior fascicular block Septal infarct , age undetermined Abnormal ECG When compared with ECG of 31-MAY-2017 14:01, MANUAL COMPARISON REQUIRED, DATA IS UNCONFIRMED Confirmed by AISHWARYA SOOD ([id number]), film and video editor ROSINA ROMAN ([id number]) on 06/04/2017 2:37:22 PM Referred By: FRAN Confirmed By:AISHWARYA SOOD
[2017-06-01 06:15] LABS: Hematocrit 31.8 % (37-47); Hemoglobin 10.5 g/dl (12.0-15.0); Mean Corpuscular Hgb 31.4 pg (27.0-32.0); Mean Corpuscular Volume 95.2 fL (81-99); Mean Platelet Vol. 9.4 fl (6.2-12.0); Platelet Count 148 K/mm3 (150-450); RBC Distribution Width CV 12.7 % (11.6-14.6); RBC Distribution Width SD 44.1 fl (35.1-43.9); Red Blood Count 3.34 M/mm3 (4.2-5.4); White Blood Count 7.4 K/mm3 (4.4-11.0)
[2017-06-01 06:18] LABS: Scan Indicated on CBC? Y/N NO
[2017-06-01 06:30] LABS: Anion Gap 6 (5-15); BUN 13 mg/dL (7-18); BUN/Creat Ratio 15.4 RATIO (10-20); Calcium,Total 8.6 mg/dL (8.5-10.1); Chloride 111 mmol/L (98-107); Cholesterol 184 mg/dL (200); Creatinine, Serum 0.84 mg/dL (0.55-1.02); EST Glomerular Filtration Rate 69 mL/min (>60); Est Glom Filt Rate - Afr Amer 84 mL/min (>60); Estimated Creatinine Clearance 48.87 ml/min; Glucose 97 mg/dL (74-106); High Density Lipoprotein 48 mg/dL; Potassium 4.4 mmol/L (3.5-5.1); Sodium Level 142 mmol/L (136-145); Triglycerides 80 mg/dL; Very Low Density Lipoprotein 16 mg/dL (5-40)
[2017-06-01] MEDS: Levothyroxine 50 MCG Tablet PO (06:53)
[2017-06-01] MEDS: Albuterol 2.5 MG/3 ML VIAL.NEB. INHALATION (07:11)
[2017-06-01] MEDS: Budesonide Respules 0.5 MG/2 ML AMPUL.NEB. INHALATION (07:11)
--- NOTE | 2017-06-01 08:00 | PCM.DC ---
- Discharge Diagnoses Current Active Problems: Current Active and Chronic Problems COPD (chronic obstructive pulmonary disease) (Chronic) Status post placement of cardiac pacemaker (Chronic) Hypothyroidism (Chronic) Hypertension (Chronic) You will use the following diet at home:: Cardiac - low salt and low fat Your food should be the consistency of: Regular Your liquids should be the consistency of: Regular/Thin Discharge Activity: - - You may remove the dressing in 1 day. You may shower in 1 day. No sex for 10-14 days. Do not lift more than 10 punds for the next 10 days No strenuous activity. You may start a walking program and work up to 30 minutes daily 5-6 times a week. No hills. May shower in (days): 1 May resume sexual activity in: 10-14 days Weight Bearing Status: Full weight bearing Call your doctor if your incision/area has: Continuous Slow Oozing, Sudden Increased Bleeding, Increased Pain/ Swelling, Increased Redness, Foul Smelling Discharge, Swelling at the incision site Call your doctor if you observe: Fever of 101 or Higher, Shortness of breath, Dizziness, Fainting spells, Swelling in the ankles, Chest pain, - - Notify Dr. Abbasi if racing heart, bleeding from the Puncture site in the R groin or any swelling, redness increased warmth to touch, purulent discharge, fever or chills. Cleanse incision/area with: Soap & Water Additional Instructions: Dr. Abbasi wants you to follow up in the office in 1 week for the nurse practitioner to check the puncture site in the right groin and see how you are doing. Pending Tests on Discharge: none Allergies/Adverse Reactions: Allergies metformin Allergy (Verified 05/30/17 14:00) Unknown Penicillins [PCN] Allergy (Verified 05/30/17 14:00) Unknown Medications to take at Discharge Cholecalciferol (VIT D3) [Vitamin D3] 1,000 unit PO DAILY 04/16/15 Lansoprazole [Prevacid] 30 mg PO DAILY 04/16/15 Levothyroxine Sodium [Unithroid] 50 mcg PO DAILY 04/16/15 Lisinopril [Zestril] 10 mg PO DAILY 04/16/15 Fluticasone/Salmeterol [Advair 250-50 Diskus] 1 each IH BID 09/15/17 Ipratropium/Albuterol Respimat [Combivent Respimat Inhal Fifty Six] 1 puff INHALATION BID 12/01/16 Buspirone HCl 7.5 mg PO BID 05/30/17 Ipratropium/Albuterol Sulfate [Duoneb] 3 ml INHALATION BID PRN 05/30/17 Acetaminophen [Tylenol Tablet] 650 mg PO Q6H PRN PRN tablet 06/01/17 Atorvastatin Calcium [Lipitor] 80 mg PO QHS #30 tab 06/01/17 Clopidogrel Bisulfate [Plavix] 75 mg PO DAILY #30 tab 06/01/17 Lisinopril [Zestril] 10 mg PO DAILY #30 tab 06/01/17 Metoprolol Tartrate [Lopressor (beta virgilio)] 12.5 mg PO BID #60 tab 06/01/17 The following prescriptions were given: Atorvastatin Calcium [Lipitor] 80 mg PO QHS #30 tab Clopidogrel Bisulfate [Plavix] 75 mg PO DAILY #30 tab Lisinopril [Zestril] 10 mg PO DAILY #30 tab Metoprolol Tartrate [Lopressor (beta virgilio)] 12.5 mg PO BID #60 tab Primary Care Physician: Rox Huerta DO [Primary Care Provider] - Please follow up with your Primary Care Physician in: 2-3 weeks Please Follow Up With: Pako Abbasi MD When: 1 week Please Follow Up With: Oumar Palmer MD When: has appt for Monday 06/05 Proposed Discharge Date: 06/01/17
--- NOTE | 2017-06-01 08:06 | PN.CARD_ITS ---
Subjectve: Patient seen and evaluated and appears to be doing well with no complaints no arm pain anymore Objective: Vital Signs Temp Pulse Resp BP Pulse Ox 97.5 F L 68 17 124/61 H 98 06/01/17 07:49 06/01/17 07:49 06/01/17 07:49 06/01/17 07:49 06/01/17 07:49 Oxygen Flow Rate (L/min) 2 Oxygen Delivery Method Room Air Weight: 145 lb 3.2 oz Body Mass Index (BMI) 24.1 Intake and Output for Last 24 Hours 05/30/17 05/31/17 06/01/17 23:59 23:59 23:59 Intake Total 924 / 924 819 / 819 1126 / 1126 Output Total 500 / 500 700 / 700 Balance 924 / 924 319 / 319 426 / 426 General: Awake, Alert, Oriented x 3 HEENT: PERRL, EOMI, Sclera Non Icteric Neck: Supple, Good ROM, No Lymph Node Enlargement Lungs: Clear to auscultation Cardiovascular: Regular Rhythm, Normal S1, Normal S2, No Murmurs, No Rubs, No Gallops Vascular: No Carotid Bruits, Normal Femoral Pulses, Normal Radial Pulses, Normal Dorsalis Pedal Pulse, Normal Posterior Tibial Pulses Abdomen: Bowel Sounds Present, Soft, Non Tender, No HSM, No Organomegaly Extremities: No Cyanosis, No Clubbing, No edema Neurological: No Focal Motor or Sensory Deficit 05/31/17 01:48: Total Bilirubin 0.30, Direct Bilirubin 0.08 05/31/17 07:43: WBC 6.7, RBC 3.71 L, Hgb 11.6 L, Hct 34.7 L, MCV 93.5, MCH 31.3 , MCHC 33.4, RDW 12.5, RDW Differential 42.4, Plt Count 157, MPV 9.3, Immature Gran % (Auto) 0.100, Neut % (Auto) 61.7, Lymph % (Auto) 26.5, [place] % (Auto) 7.8 , Eos % (Auto) 3.6, Baso % (Auto) 0.3, Absolute Neuts (auto) 4.1, Total Counted Not Reportable 05/31/17 07:43: Sodium 142, Potassium 4.2, Chloride 109 H, Carbon Dioxide 25.0, Anion Gap 8, BUN 14, Creatinine 0.86, Est GFR (MDRD) Af Amer 82, Est GFR (MDRD) Non-Af 68, BUN/Creatinine Ratio 16.4, Glucose 99, Calcium 8.7 05/31/17 07:43: PT 13.7, INR 1.1, APTT 33.8 05/31/17 14:10: WBC 7.5, RBC 3.49 L, Hgb 11.1 L, Hct 33.0 L, MCV 94.6, MCH 31.8 , MCHC 33.6, RDW 12.4, RDW Differential 41.5, Plt Count 169, MPV 9.6 05/31/17 19:30: WBC 8.2, RBC 3.34 L, Hgb 10.7 L, Hct 31.8 L, MCV 95.2, MCH 32.0 , MCHC 33.6, RDW 12.7, RDW Differential 44.2 H, Plt Count 180, MPV 10.1 06/01/17 01:30: WBC 7.3, RBC 3.40 L, Hgb 10.7 L, Hct 32.2 L, MCV 94.7, MCH 31.5 , MCHC 33.2, RDW 12.7, RDW Differential 43.9, Plt Count 146 L, MPV 8.9 06/01/17 06:00: Sodium 142, Potassium 4.4, Chloride 111 H, Carbon Dioxide 25.0, Anion Gap 6, BUN 13, Creatinine 0.84, Est GFR (MDRD) Af Amer 84, Est GFR (MDRD) Non-Af 69, BUN/Creatinine Ratio 15.4, Glucose 97, Calcium 8.6, Triglycerides 80 , Cholesterol 184, LDL Cholesterol 120, VLDL Cholesterol 16, HDL Cholesterol 48 06/01/17 06:00: WBC 7.4, RBC 3.34 L, Hgb 10.5 L, Hct 31.8 L, MCV 95.2, MCH 31.4 , MCHC 33.0, RDW 12.7, RDW Differential 44.1 H, Plt Count 148 L, MPV 9.4 Rhythm: EKG: ECHO: Stress Test: Cardiac Cath: PCI: CT Surgery: Holter monitor: EPS: PPM: CXR: Chest CT Scan: Assessment/Plan 1. Chest pain. Patient presents with chest pain with a different location but with concerning pattern. She also has an abnormal cardiac troponin enzyme. She underwent cardiac catheterization which demonstrated the following: Left main coronary artery which is normal. Left anterior descending artery with mild disease. First septal fixed income analyst with ostial 30-40% stenosis. Dominant left circumflex artery with mid tandem 80% stenotic lesions. Nondominant right coronary artery with ostial 40% stenosis. Preserved left ventricular systolic function. Based on the above angiographic findings the patient went successful angioplasty and stenting of the circumflex artery lesions. This morning is completely free of chest and arm pain. She developed a mild hematoma which is soft with no bruit. Hemoglobin is noted to be stable and creatinine is also stable. EKG demonstrates normal sinus rhythm. 2. Hypertension Her blood pressure is under good control on the current medical therapy and I would not suggest making any major changes at this time. 3. Status post pacemaker placement She is status post pacemaker placement with change out. She has been following up in the office and my plan for now is for her to continue office follow-up. Thank you for allowing me to participate in the care of your patient. Please don't hesitate to call if any issues arise From the cardiovascular standpoint she can be discharged and for her to take it easy and to have an office visit in a week to check her groin. Above discussed with hospitalist.
--- NOTE | 2017-06-01 08:14 | PCM.DC.SUM ---
Discharge Date and Diagnosis - Problem List Patient Problems: Active and Suspected Problems Status post percutaneous transluminal coronary angioplasty (Acute) Coronary artery disease (Acute) NSTEMI (non-ST elevated myocardial infarction) (Acute) Date of Admission: 05/30/17 Date of Discharge: 06/01/17 - Primary Discharge Diagnosis Active and Suspected Problems Status post percutaneous transluminal coronary angioplasty (Acute) Mid LCx Coronary artery disease (Acute) NSTEMI (non-ST elevated myocardial infarction) (Acute) - Secondary Discharge Diagnosis Chronic Problems Dyslipidemia (Chronic) COPD (chronic obstructive pulmonary disease) (Chronic) Status post placement of cardiac pacemaker (Chronic) Left foot pain (Chronic) Ganglion cyst of left foot (Chronic) Bone spur of foot (Chronic) Hypothyroidism (Chronic) Hypertension (Chronic) Hospital Course and Treatment Imaging Results: Clinical Impression(s) from Imaging Studies Chest X-Ray 05/30/17 14:22 IMPRESSION: Hyperinflation. The lungs are clear. Electronically Signed: Grabiel Gallagher MD at 14:55 EDT Tel [phone], Service support , Laboratory Tests 05/30/17 05/30/17 05/30/17 14:00 14:00 15:48 WBC 6.9 RBC 3.88 L Hgb 12.4 Hct 36.3 L MCV 93.6 MCH 32.0 MCHC 34.2 RDW 12.1 RDW Differential 40.9 Plt Count 192 MPV 9.8 Immature Gran % (Auto) 0.100 Neut % (Auto) 63.9 Lymph % (Auto) 26.4 [place] % (Auto) 6.2 Eos % (Auto) 3.0 Baso % (Auto) 0.4 Absolute Neuts (auto) 4.4 Absolute Lymphs (auto) 1.82 Total Counted Not Reportable PT INR APTT Activated Clotting Time Sodium 140 Potassium 4.5 Chloride 106 Carbon Dioxide 24.0 Anion Gap 10 BUN 19 H Creatinine 1.00 Estim Creat Clear Calc 41.05 Est GFR (MDRD) Af Amer 69 Est GFR (MDRD) Non-Af 57 L BUN/Creatinine Ratio 19.0 Glucose 109 H Calcium 9.3 Total Bilirubin Direct Bilirubin AST ALT Alkaline Phosphatase Total Creatine Kinase Troponin I 0.09 H 0.12 H Total Protein Albumin Globulin Triglycerides Cholesterol LDL Cholesterol VLDL Cholesterol HDL Cholesterol Urine Color Urine Clarity Urine pH Ur Specific [place] Urine Protein Urine Glucose (UA) Urine Ketones Urine Occult Blood Urine Nitrite Urine Bilirubin Urine Urobilinogen Ur Leukocyte Esterase 05/30/17 05/31/17 05/31/17 21:17 01:48 01:48 WBC RBC Hgb Hct MCV MCH MCHC RDW RDW Differential Plt Count MPV Immature Gran % (Auto) Neut % (Auto) Lymph % (Auto) [place] % (Auto) Eos % (Auto) Baso % (Auto) Absolute Neuts (auto) Absolute Lymphs (auto) Total Counted PT INR APTT Activated Clotting Time Sodium Potassium Chloride Carbon Dioxide Anion Gap BUN Creatinine Estim Creat Clear Calc Est GFR (MDRD) Af Amer Est GFR (MDRD) Non-Af BUN/Creatinine Ratio Glucose Calcium Total Bilirubin 0.30 Direct Bilirubin 0.08 AST 20 ALT 18 Alkaline Phosphatase 63 Total Creatine Kinase Troponin I 0.14 H 0.19 H Total Protein 6.6 Albumin 3.6 Globulin 3.0 Triglycerides Cholesterol LDL Cholesterol VLDL Cholesterol HDL Cholesterol Urine Color Urine Clarity Urine pH Ur Specific [place] Urine Protein Urine Glucose (UA) Urine Ketones Urine Occult Blood Urine Nitrite Urine Bilirubin Urine Urobilinogen Ur Leukocyte Esterase 05/31/17 05/31/17 05/31/17 06:00 07:43 07:43 WBC 6.7 RBC 3.71 L Hgb 11.6 L Hct 34.7 L MCV 93.5 MCH 31.3 MCHC 33.4 RDW 12.5 RDW Differential 42.4 Plt Count 157 MPV 9.3 Immature Gran % (Auto) 0.100 Neut % (Auto) 61.7 Lymph % (Auto) 26.5 [place] % (Auto) 7.8 Eos % (Auto) 3.6 Baso % (Auto) 0.3 Absolute Neuts (auto) 4.1 Absolute Lymphs (auto) 1.77 Total Counted Not Reportable PT INR APTT Activated Clotting Time Sodium 142 Potassium 4.2 Chloride 109 H Carbon Dioxide 25.0 Anion Gap 8 BUN 14 Creatinine 0.86 Estim Creat Clear Calc 47.73 Est GFR (MDRD) Af Amer 82 Est GFR (MDRD) Non-Af 68 BUN/Creatinine Ratio 16.4 Glucose 99 Calcium 8.7 Total Bilirubin Direct Bilirubin AST ALT Alkaline Phosphatase Total Creatine Kinase Troponin I Total Protein Albumin Globulin Triglycerides Cholesterol LDL Cholesterol VLDL Cholesterol HDL Cholesterol Urine Color Yellow Urine Clarity Clear Urine pH 6.5 Ur Specific [place] 1.010 Urine Protein Negative Urine Glucose (UA) Normal Urine Ketones Negative Urine Occult Blood Negative Urine Nitrite Negative Urine Bilirubin Negative Urine Urobilinogen Normal Ur Leukocyte Esterase 500 H 05/31/17 05/31/17 05/31/17 07:43 13:04 14:10 WBC RBC Hgb Hct MCV MCH MCHC RDW RDW Differential Plt Count MPV Immature Gran % (Auto) Neut % (Auto) Lymph % (Auto) [place] % (Auto) Eos % (Auto) Baso % (Auto) Absolute Neuts (auto) Absolute Lymphs (auto) Total Counted PT 13.7 INR 1.1 APTT 33.8 Activated Clotting Time 208 H Sodium Potassium Chloride Carbon Dioxide Anion Gap BUN Creatinine Estim Creat Clear Calc Est GFR (MDRD) Af Amer Est GFR (MDRD) Non-Af BUN/Creatinine Ratio Glucose Calcium Total Bilirubin Direct Bilirubin AST ALT Alkaline Phosphatase Total Creatine Kinase 134 Troponin I Total Protein Albumin Globulin Triglycerides Cholesterol LDL Cholesterol VLDL Cholesterol HDL Cholesterol Urine Color Urine Clarity Urine pH Ur Specific [place] Urine Protein Urine Glucose (UA) Urine Ketones Urine Occult Blood Urine Nitrite Urine Bilirubin Urine Urobilinogen Ur Leukocyte Esterase 05/31/17 05/31/17 05/31/17 14:10 19:30 19:30 WBC 7.5 8.2 RBC 3.49 L 3.34 L Hgb 11.1 L 10.7 L Hct 33.0 L 31.8 L MCV 94.6 95.2 MCH 31.8 32.0 MCHC 33.6 33.6 RDW 12.4 12.7 RDW Differential 41.5 44.2 H Plt Count 169 180 MPV 9.6 10.1 Immature Gran % (Auto) Neut % (Auto) Lymph % (Auto) [place] % (Auto) Eos % (Auto) Baso % (Auto) Absolute Neuts (auto) Absolute Lymphs (auto) Total Counted PT INR APTT Activated Clotting Time Sodium Potassium Chloride Carbon Dioxide Anion Gap BUN Creatinine Estim Creat Clear Calc Est GFR (MDRD) Af Amer Est GFR (MDRD) Non-Af BUN/Creatinine Ratio Glucose Calcium Total Bilirubin Direct Bilirubin AST ALT Alkaline Phosphatase Total Creatine Kinase 108 Troponin I Total Protein Albumin Globulin Triglycerides Cholesterol LDL Cholesterol VLDL Cholesterol HDL Cholesterol Urine Color Urine Clarity Urine pH Ur Specific [place] Urine Protein Urine Glucose (UA) Urine Ketones Urine Occult Blood Urine Nitrite Urine Bilirubin Urine Urobilinogen Ur Leukocyte Esterase 06/01/17 06/01/17 06/01/17 01:30 01:30 06:00 WBC 7.3 RBC 3.40 L Hgb 10.7 L Hct 32.2 L MCV 94.7 MCH 31.5 MCHC 33.2 RDW 12.7 RDW Differential 43.9 Plt Count 146 L MPV 8.9 Immature Gran % (Auto) Neut % (Auto) Lymph % (Auto) [place] % (Auto) Eos % (Auto) Baso % (Auto) Absolute Neuts (auto) Absolute Lymphs (auto) Total Counted PT INR APTT Activated Clotting Time Sodium 142 Potassium 4.4 Chloride 111 H Carbon Dioxide 25.0 Anion Gap 6 BUN 13 Creatinine 0.84 Estim Creat Clear Calc 48.87 Est GFR (MDRD) Af Amer 84 Est GFR (MDRD) Non-Af 69 BUN/Creatinine Ratio 15.4 Glucose 97 Calcium 8.6 Total Bilirubin Direct Bilirubin AST ALT Alkaline Phosphatase Total Creatine Kinase 91 Troponin I Total Protein Albumin Globulin Triglycerides 80 Cholesterol 184 LDL Cholesterol 120 VLDL Cholesterol 16 HDL Cholesterol 48 Urine Color Urine Clarity Urine pH Ur Specific [place] Urine Protein Urine Glucose (UA) Urine Ketones Urine Occult Blood Urine Nitrite Urine Bilirubin Urine Urobilinogen Ur Leukocyte Esterase 06/01/17 06:00 WBC 7.4 RBC 3.34 L Hgb 10.5 L Hct 31.8 L MCV 95.2 MCH 31.4 MCHC 33.0 RDW 12.7 RDW Differential 44.1 H Plt Count 148 L MPV 9.4 Immature Gran % (Auto) Neut % (Auto) Lymph % (Auto) [place] % (Auto) Eos % (Auto) Baso % (Auto) Absolute Neuts (auto) Absolute Lymphs (auto) Total Counted PT INR APTT Activated Clotting Time Sodium Potassium Chloride Carbon Dioxide Anion Gap BUN Creatinine Estim Creat Clear Calc Est GFR (MDRD) Af Amer Est GFR (MDRD) Non-Af BUN/Creatinine Ratio Glucose Calcium Total Bilirubin Direct Bilirubin AST ALT Alkaline Phosphatase Total Creatine Kinase Troponin I Total Protein Albumin Globulin Triglycerides Cholesterol LDL Cholesterol VLDL Cholesterol HDL Cholesterol Urine Color Urine Clarity Urine pH Ur Specific [place] Urine Protein Urine Glucose (UA) Urine Ketones Urine Occult Blood Urine Nitrite Urine Bilirubin Urine Urobilinogen Ur Leukocyte Esterase Dr[facility] Procedures: Cardiac catheterization, - - PTCA/AFSHAN to the mid LCX Summary of Care Provided: Patient is a 81-year-old female with a past medical history of COPD, pacemaker, hypothyroidism, former smoking history and hypertension who presented to the emergency room at [facility] on 05/30/2017 complaining of chest pains. EKG in the ER was unremarkable but the troponin was increased at 0.09. Chest x-ray showed no pleural effusions, pulmonary vascular congestion or infiltrates. CBC was unremarkable. BMP was also unremarkable. She was admitted to a monitored bed on PCU and serial cardiac enzymes were obtained. The fourth troponin had increased to 0.19. She was seen in consultation by Dr. Abbasi and he recommended Cardiac catheterization and the pt and her family were agreeable. Cardiac catheterization showed normal left ventricular wall motion. The left main was angiographically normal, the left anterior descending artery had minimal luminal irregularities but the circumflex artery had tandem sequential 80% stenosis and the ostial RCA was 40% stenosed. Dr. Johnson was consulted and patient underwent successful PTCA/AFSHAN of the mid LCx. Postprocedure she was transferred to the intensive care unit. Post procedure course was unremarkable. She had no significant ventricular ectopy and VS were stable. she denied CP on the morning of DC and stated that her breathing was much better. The Lungs were CTA and the Heart had a RRR with no MM, No gallop and no rub. There is bruising at the puncture site in the R groin but no palpable hematoma and no pain. There was no fresh blood on the bandage. Dr. Abbasi recommended DC and follow up in the office in 1 week for a groin check. she was discharged on Atorvastatin, clopidogrel, aspirin, lisinopril and metoprolol. She will continue her other home medications. She has a follow-up appointment with Dr. Palmer on 06/05. She was instructed to follow-up with Dr. Huerta in 2-[address] Abbasi's office in 1 week. If she has any bleeding, redness, purulent discharge, swelling or increased warmth to touch at the site of the right groin puncture she will return to the emergency room or call Dr. Abbasi's office to be seen. She will need a lipid panel and liver panel in 6 weeks. This note was generated with [employer]ette dictation software. It may contain incorrect words, spelling, and punctuation that were not noted in checking the note before signing. Discharge Activity: - - You may remove the dressing in 1 day. You may shower in 1 day. No sex for 10-14 days. Do not lift more than 10 punds for the next 10 days No strenuous activity. You may start a walking program and work up to 30 minutes daily 5-6 times a week. No hills. May shower in (days): 1 May resume sexual activity in: 10-14 days Weight Bearing Status: Full weight bearing Call your doctor if your incision/area has: Continuous Slow Oozing, Sudden Increased Bleeding, Increased Pain/ Swelling, Increased Redness, Foul Smelling Discharge, Swelling at the incision site Call your doctor if you observe: Fever of 101 or Higher, Shortness of breath, Dizziness, Fainting spells, Swelling in the ankles, Chest pain, - - Notify Dr. Abbasi if racing heart, bleeding from the Puncture site in the R groin or any swelling, redness increased warmth to touch, purulent discharge, fever or chills. Cleanse incision/area with: Soap & Water Home Medications: Medications to take at Discharge Cholecalciferol (VIT D3) [Vitamin D3] 1,000 unit PO DAILY 04/16/15 Lansoprazole [Prevacid] 30 mg PO DAILY 04/16/15 Levothyroxine Sodium [Unithroid] 50 mcg PO DAILY 04/16/15 Lisinopril [Zestril] 10 mg PO DAILY 04/16/15 Fluticasone/Salmeterol [Advair 250-50 Diskus] 1 each IH BID 12/01/16 Ipratropium/Albuterol Respimat [Combivent Respimat Inhal [employer] Mdl] 1 puff INHALATION BID 12/01/16 Buspirone HCl 7.5 mg PO BID 05/30/17 Ipratropium/Albuterol Sulfate [Duoneb] 3 ml INHALATION BID PRN 05/30/17 Acetaminophen [Tylenol Tablet] 650 mg PO Q6H PRN PRN tablet 06/01/17 Atorvastatin Calcium [Lipitor] 80 mg PO QHS #30 tab 06/01/17 Clopidogrel Bisulfate [Plavix] 75 mg PO DAILY #30 tab 06/01/17 Lisinopril [Zestril] 10 mg PO DAILY #30 tab 06/01/17 Metoprolol Tartrate [Lopressor (beta freddie)] 12.5 mg PO BID #60 tab 06/01/17 Following Prescrptions Were Given to Patient: Atorvastatin Calcium [Lipitor] 80 mg PO QHS #30 tab Clopidogrel Bisulfate [Plavix] 75 mg PO DAILY #30 tab Lisinopril [Zestril] 10 mg PO DAILY #30 tab Metoprolol Tartrate [Lopressor (beta freddie)] 12.5 mg PO BID #60 tab Primary Care Physician: Rox Huerta DO [Primary Care Provider] - Please follow up with your Primary Care Physician in: 2-3 weeks Please Follow Up With: Pako Abbasi MD When: 1 week Please Follow Up With: Oumar Palmer MD When: has appt for Monday 06/05 Disposition: Home Minutes spent on discharge:: 37 Patient Condition:: Good Meaningful Use Info Meaningful Use Diagnoses (Choose all that apply): AMI - AMI Aspirin given w/in 24hrs of arrival?: Yes ASA at discharge?: Yes Statins at discharge?: Yes Inderjit/ARB at discharge?: Yes Beta Freddie at discharge?: Yes Done w/ Acute UT measure.: Yes Code Visit Inpatient E&M: [id number] Disch Hosp
--- NOTE | 2017-06-01 08:47 | CRPHASE1 ---
Patient Data/Charges Drop Hammer Setter Up:: Breezy Johnson Refer Phase II:: Yes Phase II Referral:: [facility] Start Phase II:: After follow up visit with principal system software engineer Phase I Charge:: Level I - Education Risk Factors/Lifestyle Smoking Status: Former smoker - quit 1994 Hx Hypertension: Yes Hx Diabetes Mellitus Type 2: No Hx Dyslipidemia: Yes Hx Obesity: No Height: 1.65 m Weight:: 65.771 kg BMI: 24.1 Post-Menopausal: Yes Stress: Home/Family Risk Factor for Sedentary Lifestyle: Lowest Risk Family History: Heart Disease, Stroke Past Cardiac Illness: Coronary Artery Disease, Myocardial Infarction Laboratory Values: Cardiac Rehab Phase I Labs Triglycerides 80 mg/dL (-199) 06/01/17 06:00 Cholesterol 184 mg/dL (200) 06/01/17 06:00 LDL Cholesterol 120 mg/dL (0-130) 06/01/17 06:00 HDL Cholesterol 48 mg/dL (40-) 06/01/17 06:00 Phase I Education Given On:: [place], Nutrition, Antiplatelet medication, CHF Issues Affecting Care:: None Knowledge of Condition:: Yes Learning Preferences: Verbal, Written, Audio/Visual, Demonstration Hospital Course Pain Description: Sharp - sharp chest and right arm pain Medical/Surgical History [place]:: Yes Angina:: Yes CAD:: Yes COPD:: Yes Asthma:: Yes Hypertension:: Yes Dyslipidemia:: Yes Arthritis:: Yes Orthopedic:: Yes - back surgery, foot surgery Ambulation Notes:: Walks 30 min twice daily prior to event. Discharge/Home/Social Eval Marital Status: - 3 years ago. Exercise/Recreation/Interests:: walks her dog
--- NOTE | 2017-06-01 08:53 | CRPHASE1_ITS ---
Patient Data/Charges Dude Ranch Manager:: rBeezy Johnson Refer Phase II:: Yes Phase II Referral:: [facility] Start Phase II:: After follow up visit with in home nanny Phase I Charge:: Level I - Education Risk Factors/Lifestyle Smoking Status: Former smoker - quit 1994 Hx Hypertension: Yes Hx Diabetes Mellitus Type 2: No Hx Dyslipidemia: Yes Hx Obesity: No Height: 1.65 m Weight:: 65.771 kg BMI: 24.1 Post-Menopausal: Yes Stress: Home/Family Risk Factor for Sedentary Lifestyle: Lowest Risk Family History: Heart Disease, Stroke Past Cardiac Illness: Coronary Artery Disease, Myocardial Infarction Laboratory Values: Cardiac Rehab Phase I Labs Triglycerides 80 mg/dL (-199) 06/01/17 06:00 Cholesterol 184 mg/dL (200) 06/01/17 06:00 LDL Cholesterol 120 mg/dL (0-130) 06/01/17 06:00 HDL Cholesterol 48 mg/dL (40-) 06/01/17 06:00 Phase I Education Given On:: [place], Nutrition, Antiplatelet medication, CHF Issues Affecting Care:: None Knowledge of Condition:: Yes Learning Preferences: Verbal, Written, Audio/Visual, Demonstration Hospital Course Pain Description: Sharp - sharp chest and right arm pain Medical/Surgical History [place]:: Yes Angina:: Yes CAD:: Yes COPD:: Yes Asthma:: Yes Hypertension:: Yes Dyslipidemia:: Yes Arthritis:: Yes Orthopedic:: Yes - back surgery, foot surgery Ambulation Notes:: Walks 30 min twice daily prior to event. Discharge/Home/Social Eval Marital Status: - 3 years ago. Exercise/Recreation/Interests:: walks her dog
--- NOTE | 2017-06-01 08:53 | CRPH1.INSTRU ---
General Education CAD and cardiac anatomy and function:: Patient communicates acknowledgment, Needs reinforcement Explanation of diagnoses and procedures:: Patient communicates acknowledgment, Needs reinforcement Sign/Symptoms of MS:: Patient communicates acknowledgment, Needs reinforcement Antiplatelet therapy: Patient communicates acknowledgment, Needs reinforcement Proper use of NTG-SL: Patient communicates acknowledgment, Needs reinforcement Emergency procedures and activation of EMS: Patient communicates acknowledgment, Needs reinforcement Compliance of all prescribed medications: Patient communicates acknowledgment, Needs reinforcement Smoking Patient Nicotine/Smoking Risk Factors Are:: Non-smoker Recommendations Include:: Previous smoker; encourage continued cessation Nicotine/Smoking Response Code:: Patient communicates acknowledgment Dyslipidemia Patient Dyslipidemia Risk Factors Are:: Total Cholesterol, Triglycerides, HDL, LDL Recommendations Include:: Lipid profile provided, Reviewed NCEP/ATP guidelines, Therapeutic Lifestyle Change dietary guidelines Dyslipidemia Response Code:: Patient communicates acknowledgment, Needs reinforcement Overweight/Obesity Patient Overweight/Obesity Risk Factors Are:: BMI Normal [24-29 & > 65 years old] Recommendations Include:: Exercise 5-7 times/week Overweight/Obesity:: Patient communicates acknowledgment Hypertension Recommendations Include:: Maintain BP <130/85, DASH dietary guidelines, Decrease/maintain normal body weight Hypertension:: Patient communicates acknowledgment, Needs reinforcement Heart Disease Patient Heart Disease Risk Factors Are:: Family history of heart disease < 65 years old, Previous cardiac event Recommendations Include:: Educated family members of their risk, Educated family members of importance of prevention of heart disease Heart Disease Response Code:: Patient communicates acknowledgment, Needs reinforcement Diabetes Patient Diabetes Risk Factors Are:: No documented hx of diabetes Diabetes:: Not instructed Metabolic Syndrome Metabolic Syndrome Response Code:: Not instructed Sedentary Recommendations Include:: Discussed home walking program, Monitored Outpatient Cardiac Rehab Sedentary Response Code:: Patient communicates acknowledgment, Needs reinforcement Stress Recommendations Include:: Identification of stressors, and assessment of coping skills, Stress management techniques Stress Response Code:: Patient communicates acknowledgment, Needs reinforcement
--- NOTE | 2017-06-01 08:56 | CRPH1.INST_ITS ---
General Education CAD and cardiac anatomy and function:: Patient communicates acknowledgment, Needs reinforcement Explanation of diagnoses and procedures:: Patient communicates acknowledgment, Needs reinforcement Sign/Symptoms of CT:: Patient communicates acknowledgment, Needs reinforcement Antiplatelet therapy: Patient communicates acknowledgment, Needs reinforcement Proper use of NTG-SL: Patient communicates acknowledgment, Needs reinforcement Emergency procedures and activation of EMS: Patient communicates acknowledgment , Needs reinforcement Compliance of all prescribed medications: Patient communicates acknowledgment, Needs reinforcement Smoking Patient Nicotine/Smoking Risk Factors Are:: Non-smoker Recommendations Include:: Previous smoker; encourage continued cessation Nicotine/Smoking Response Code:: Patient communicates acknowledgment Dyslipidemia Patient Dyslipidemia Risk Factors Are:: Total Cholesterol, Triglycerides, HDL, LDL Recommendations Include:: Lipid profile provided, Reviewed NCEP/ATP guidelines, Therapeutic Lifestyle Change dietary guidelines Dyslipidemia Response Code:: Patient communicates acknowledgment, Needs reinforcement Overweight/Obesity Patient Overweight/Obesity Risk Factors Are:: BMI Normal [24-29 & > 65 years old ] Recommendations Include:: Exercise 5-7 times/week Overweight/Obesity:: Patient communicates acknowledgment Hypertension Recommendations Include:: Maintain BP <130/85, DASH dietary guidelines, Decrease /maintain normal body weight Hypertension:: Patient communicates acknowledgment, Needs reinforcement Heart Disease Patient Heart Disease Risk Factors Are:: Family history of heart disease < 65 years old, Previous cardiac event Recommendations Include:: Educated family members of their risk, Educated family members of importance of prevention of heart disease Heart Disease Response Code:: Patient communicates acknowledgment, Needs reinforcement Diabetes Patient Diabetes Risk Factors Are:: No documented hx of diabetes Diabetes:: Not instructed Metabolic Syndrome Metabolic Syndrome Response Code:: Not instructed Sedentary Recommendations Include:: Discussed home walking program, Monitored Outpatient Cardiac Rehab Sedentary Response Code:: Patient communicates acknowledgment, Needs reinforcement Stress Recommendations Include:: Identification of stressors, and assessment of coping skills, Stress management techniques Stress Response Code:: Patient communicates acknowledgment, Needs reinforcement
[2017-06-01] MEDS: Metoprolol Tartrate 25 MG Tablet 12.5 MG PO (09:01)
[2017-06-01] MEDS: Clopidogrel Bisulfate 75 MG Tablet PO (09:04)
[2017-06-01] MEDS: Pantoprazole Sodium 40 MG Tablet PO (09:04)
[2017-06-01] MEDS: Lisinopril 10 MG Tablet PO (09:05)
== END 2017-06-01 11:20 | disposition home or self-care (01) | DRG 247 ==
LOC: ED 15:38 → PCU 17:07 → ICU 05-31 13:23
PROVIDERS: Internal Medicine Cardiovascular Disease; Admitting Provider Hospitalist; Emergency Provider Emergency Medicine; Family Provider Internal Medicine; PCP Internal Medicine; Visit Provider Internal Medicine
DX: I21.4 Non-ST elevation (NSTEMI) myocardial infarction (principal); J44.9 Chronic obstructive pulmonary disease, unspecified; E03.9 Hypothyroidism, unspecified; I10 Essential (primary) hypertension; Z95.0 Presence of cardiac pacemaker; E78.5 Hyperlipidemia, unspecified; Z87.891 Personal history of nicotine dependence; I25.110 Atherosclerotic heart disease of native coronary artery with unstable angina pectoris
CPT/HCPCS: 36415; 71045; 80048; 80061; 80076; 81002; 82550; 84484; 85025; 85027; 85347; 85610; 85730; 92928; 93005; 93458; 94640; 99285; C1760; J7030; J7040; A4216; C1725; C1769; C1874; C1887; C9600; Q9967

== ENCOUNTER → 2017-06-27 12:39 | Outpatient (CLI) | payer MEDICARE, SELFPAY ==
[2017-06-01 08:52] VITALS: BMI 24.1
--- NOTE | 2017-06-27 12:50 | PCM.CR.ITP ---
Exercise - Initial Assessment - Visit Date of Eval: 06/27/17 - Initial Eval - Stages of Change Stages of Change:: Contemplate - Exercise Prescription Mode:: Treadmill, Biodyne, Rower, Airdyne, NuStep, Arm Ergometer Angina with exercise?: No Target Heart Rate:: 98-106 - Hypertension Do any of the following apply?: Yes Resting Blood Pressure:: 150/50 - Intervention Home Exercise/Activity Goal:: Sitting Time <3 hrs/day - Education Goals:: Warm-up, RPE BELINDA Scale, S/S, Safe Exercise, Self-Monitoring - Exercise Program Goals Exercise Program Goals: Aerobic Activity >30 min, B/P <140/90 Nutrition - Initial Assessment - Program Goals Nutrition Program Goals: LDL <70. Total Cholesterol <200. HDL >45. Triglycerides <150. HgbA1C <7%. BMI <25 - Visit Date of Assessment:: 06/27/17 - Stages of Change Stages of Change:: Contemplate - Diabetes Diabetes:: No - Weight Management Height: 1.65 m Weight:: 65.771 kg Total Score:: 6 - Intervention Referral to dietitian:: No Referral to Diabetic Clinic:: No Will attend diet classes:: Yes - Education Gave educational materials for:: Signs & symptoms of hypoglycemia, Signs & symptoms of hyperglycemia, Relate diabetes to coronary artery disease, Healthy eating Tobacco - Initial Assessment - Program Goals Tobacco Program Goals: Complete smoking cessation. Attend education classes. Improve Knowledge Test score - Stage of Change Stages of Change:: Contemplate - Learning Barriers Learning Barriers: Vision Total Score:: 8 - Family Support Do you have family support?: Yes - Tobacco Use Tobacco Use: Non-smoker How long ago did you quit using tobacco products?: Greater than or equal to 6 months ago Do you use smokeless tobacco?: No - Intervention Smoking Cessation Referral:: No Individual Education/Counseling:: No Education Schedule Given:: Yes - Education Gave educational material for:: Tobacco triggers, Coronary artery disease, Risk factors, Sexuality, Medical compliance, Cardiac A&P, Angina signs & symptoms Psychosocial - Initial Assess - Target Goals Target Goals: Assess presence or absence of depression. Using a valid screening tool, maximizes coping skills. Positive support system - Stages of Change Stages of Change:: Contemplate - Psychosocial Test Tool Used:: HANDS Depression Questionnaire Total Mood Screening Score:: 9 Self-Efficacy Score:: 3 - Intervention PS - Interventions: Yes Attend Stress Management Classes, Yes Uses Stress Management Skills, No Referral to Mental Health, No Referral to [facility] Case Management, No Referral to Physician - Education Gave educational materials for:: Coping techniques, Signs & symptoms of depression, Stress management, Relaxation techniques - Assistive Devices Assistive Devices:: None Fall Risk Assessed:: Yes Patient Health Questionnaire Initial Assessment 1. Little interest or pleasure in doing things: Several days 2. Feeling down, depressed, or hopeless: Not at all 3. Trouble falling or staying asleep, or sleeping too much: More than half the days 4. Feeling tired or having little energy: More than half the days 5. Poor appetite or overeating: More than half the days 6. Feeling bad about yourself -- or that you are a failure or have let yourself or your family down: Not at all 7. Trouble concentrating on things, such as reading the newspaper or watching television: Not at all 8. Moving or speaking so slowly that other people could have noticed. Or the opposite - being so fidgety or restless that you have been moving around a lot more than usual: More than half the days 9. Thoughts that you would be better off , or of hurting yourself in some way: Not at all How difficult have these problems made it for you to do your work, take care of things at home, or get along with other people?: Somewhat difficult Total Score: 9 Knowledge Test - Check your knowledge Initial The #1 cause of in the [place] each year is:: Heart disease Which of the following is a common treatment for heart disease?: Coronary artery stents The arteries that feed the heart are called:: Coronary arteries HDL cholesterol is known as the good cholesterol.: True What disease increases your risk for heart disease?: Diabetes What food product raises blood cholesterol level the most?: Cholesterol The bad cholesterol in the blood is called:: LDL Hypertension is another word for:: High blood pressure A blood pressure reading of 148/88 is considered normal.: False Exercise will only benefit your health when your heart rate reaches a target level.: False Total Score:: 8 Self-Efficacy Initial Assessment We would like to know how confident you are in doing certain activities. Please select your confidence level for:: Select your confidence level for the following using the scale 1-10 where 1 is not at all confident and 10 is totally confident. Your score is the average of all 6 responses. Fatigue: How confident are you that you can keep the fatigue caused by your disease from interfering with the things you want to do? Select Number: 2 Physical Discomfort or Pain: How confident are you that you can keep the physical discomfort or pain of your disease from interfering with the things you want to do? Select Number: 5 Emotional Distress: How confident are you that you can keep the emotional distress caused by your disease from interfering with the things you want to do? Select Number: 4 Other Symptoms or Health Problems: How confident are you that you can keep other symptoms or health problems from interfering with the things you want to do? Select Number: 1 Different Tasks and Activities: How confident are you that you can do the different tasks and activities needed to manage your health condition so as to reduce your need to see a doctor? Select Number: 2 Medication: How confident are you that you can do things other than just taking medication to reduce how much your illness affects your everyday life? Select Number: 6 Total Score:: 3 Nutrition Survey - Nutrition Survey Instructions Scoring Instructions: Scoring is as follows: Yes = 1 points. No = 0 point. Patient score that is >/=12 is considered to be at potential nutritional risk and could benefit from a referral to a registered dietitian. - Nutrition Survey Initial Have you lost >10 lbs over the past 2 months without trying?: Yes Are you following a special diet at home for diabetes, low fat, or low salt?: Yes Are you interested in meeting with a dietitian for help understanding your diet?: Yes Do you eat less than 3 meals a day?: Yes Do you eat fatty meats (garcia, sausage, ribs, etc), fried foods, desserts, large amounts of salad dressings, margarine, butter, or cheese most days?: Yes Do you have food allergies? [Enter types in comment field]: No Do you eat in restaurants more than 3 times a week?: No Do you season food with salt, seasoning salt, or garlic salt?: No Do you used canned, boxed, frozen meals, or soups, seasoning packets?: Yes Total Score:: 6 Cardiac Rehabilitation Goals - Cardiac Rehab Goals Cardiac Rehabilitation Goals: 1. Maintain the individual as the primary focus of care. 2. To improve the patient's quality of life. 3. Identification of cardiac risk factors and provide cardiac risk factor management. 4. Enhance the psychosocial status of the patient. 5. Reconditioning enough to allow the patient to resume customary activities. 6. Control symptoms of cardiac disease - Scale Scale for measuring improvement of personal goals: Enter appropriate number in Comments. 2 = Unchanged. 3 = Slightly Better. 4 = Moderate Improvement. 5 = Met my Goal Initial Assessment Personal Goals: 30-day Re-assessment: Improve management of stress and emotions, Improve energy level, Improve knowledge of cardiac disease, Improve muscle strength and endurance, Improve diet and eating habits (eat healthier), Control risk factors (learn risk factor modification)
--- NOTE | 2017-06-27 12:51 | PCM.CR.HP2 ---
CR - History & Physical - General Arrival date:: 06/27/17 Arrival time:: 12:51 Date of Admission: 05/31/17 Referring Physician: Dr. Pako Abbasi Primary Diagnosis: Z95.5, I25.10, I21.4 05/31/2017 - History of Present Cardiac Event Onset Date: Enter Onset Date of cardiac illnesses in Comment field below Angina:: Yes PTCA:: Yes Were there any complications?: hematoma - Medications Home Medications: Ambulatory Orders Medication Instructions Recorded Cholecalciferol (VIT D3) [Vitamin 1,000 unit PO DAILY 04/16/15 D3] Lansoprazole [Prevacid] 30 mg PO DAILY 04/16/15 Levothyroxine Sodium [Unithroid] 50 mcg PO DAILY 04/16/15 Fluticasone/Salmeterol [Advair 1 ea IH BID 12/01/16 250-50 Diskus] Ipratropium/Albuterol Respimat 1 puff INHALATION BID 12/01/16 [Combivent Respimat Inhal [place]] Ipratropium/Albuterol Sulfate 3 ml INHALATION BID PRN 05/30/17 [Duoneb] Acetaminophen [Tylenol Tablet] 650 mg PO Q6H PRN PRN tab 06/01/17 atorvastatin 80 mg tablet 80 mg PO QHS #90 tab 06/08/17 clopidogrel 75 mg tablet 75 mg PO DAILY #90 tab 06/08/17 lisinopril 10 mg tablet 10 mg PO DAILY #90 tab 06/08/17 metoprolol tartrate 25 mg tablet 12.5 mg PO BID #90 tab 06/08/17 - Allergies Allergies/Adverse Reactions: Allergies metformin Allergy (Verified 06/08/17 13:43) Unknown Penicillins [PCN] Allergy (Verified 06/08/17 13:43) Unknown - Sleep Disorder Evaluation Hx of Sleep Apnea: No Do you snore loudly (louder than talking or can be heard through closed doors)?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 Living Will: Yes Advance Directives Information Provided: Yes Advance Directives on File: Yes DNR Order?:: No Past Medical History - Problems and Co-Morbidities Problems & Co-Morbidities: Dyslipidemia, Hypertension, Sedentary Lifestyle, Anxiety - Past Medical Illness Past Medical Illness: Lung or Breathing Problems - asthma, COPD - Past Cardiac Illness Past Cardiac Illness: Other - pacer - Other Other: Vision/Eye Problems - Cardiology Procedures/Interventions Cardiology Procedures/Interventions: PCI w/Stenting, Heart Catheterization - Past Surgical History Surgical History: noncontributory - Family History Summary Family History: Diabetes: Offspring, Heart Disease: Paternal, Offspring, Stroke: Maternal, Cancer: Sibling, Paternal, Hypertension: Offspring, Maternal Review of Systems - Review of Systems Hints: Right click = Denies (Slash). Left click = Reports ([place]) Review of Present Symptoms: Reports: Shortness of Breath with Exertion - Asthma, COPD, Angina, Fatigue, Appetite - Normal, Sleep - Normal. Denies: Shortness of Breath at Rest, PVD, Operative Discomfort, Wound Healing, Dizziness/Lightheadedness, Heart Arrhythmia/Irregularities, Appetite - Special Diet, Sexual Changes Risk Factor Assessment - Chief Complaint Chief Complaint: CP - Pulse Pulse Rate: 66 - SPO2 99 Pulse Rhythm: Regular - Hypertension How long have you been treated?: 10 Blood Pressure Sitting - Left Arm: 150/50 - Stress Stress: Long-standing, Home/Family - Diabetes Nutrition Referral for Diabetes: No - Obesity Height: 1.65 m Weight:: 65.771 kg Weight in Pounds: 145.0 lbs Body Mass Index (BMI): 24.1 Nutritional Referral for Obesity: No - Physical Inactivity Physical Inactivity: Reg Exercise 30 min/day, Recreational activity - Risk Stratification Risk Guidelines: Moderate Risk: Risk Factor for Smoking, Risk Factor for Dyslipidemia, Risk Factor for Diabetes, Risk Factor for Obesity, Risk Factor for Hypertension, Risk Factor for Sedentary Lifestyle, Risk Factor for Depression - For Smoking Smoking Risk Guidelines: Smoking Low Risk: None or quit greater than 6 months ago. Smoking Moderate Risk: Smoker or quit 6 months or less ago. Smoking High Risk: Smoker - For Dyslipidemia Dyslipidemia Risk Guidelines: Low Risk: Moderate Risk: High Risk: 15-25% fat 25.1-29% fat >/= 30% fat. <7% sat fat 7-9% sat fat >9% sat fat. <150 mg chol 150-299 mg chol >/= 300 mg chol. LDL <100 LDL 100-129 LDL >/= 130. Chol/HDL ratio <5.0 Chol/HDL ratio 5.0-6.0 Chol/HDL ratio >6.0. Triglycerides <100 Triglycerides 100-149 Triglycerides >/= 150 - For Diabetes Mellitus Diabetes Risk Guidelines: Diabetes Low Risk: HgA1c <6.5% and/or FBG <120. Diabetes Moderate Risk: HgA1c 6.6-7.9% and/or FBG 120-180. Diabetes High Risk: HgA1c >/= 8% and/or FBG >180 - For Obesity/Overweight Obesity/Overweight Risk Guidelines: Obesity Low Risk: BMI <25.0. Obesity Moderate Risk: BMI 25-29.9. Obesity High Risk: BMI >/= 30.0 - For Hypertension Hypertension Risk Guidelines: Hypertension Low Risk: Systolic <120 and Diastolic <80. Hypertension Moderate Risk: Systolic 120-139 and Diastolic 80-89. Hypertension High Risk: Systolic >/= 140 and Diastolic >/= 90 - For Sedentary Lifestyle Sedentary Lifestyle Risk Guidelines: Sedentary Lifestyle Low Risk: >/= 1,500 kcal/week. Sedentary Lifestyle Moderate Risk: 700-1,499 kcal/week. Sedentary Lifestyle High Risk: < 700 kcal/week - For Depression Depression Risk Guidelines: Depression Low Risk: Not clinically depressed. Depression Moderate Risk: Mildly depressed. Depression High Risk: Clinically depressed - Family History Family History: Family History (Last Updated 06/08/17 @ 13:43 by Harvey Ortega) Father Cancer Heart disease Mother CVA (cerebral vascular accident) Hypertension Sister Hypertension Cancer Son Diabetes Hypertension Myocardial infarction, Onset Age: 48 Social History - Smoking History Smoking Status: Former smoker Years Smokin Packs Smoked per Day: 2 Hx Tobacco Use: Yes - reformed Hx Smoking Exposure: Yes - Alcohol Use Alcohol Usage: No - Substance Abuse Hx Substance Use: No - Occupation Occupation (List type of work in comments):: Retired - Hobbies, Recreation, Social Activities Hobbies: Farm, Sewing, Reading, Walking, None Recreational Activities: I am able to engage in all my recreational activities Marital Status - Status Marital Status: - Current Living Arrangements Living Environment:: Alone - Children How many children do you have?: 4 Do any of your children live nearby?: Yes - Safety Do you feel safe in your surroundings?: Yes - Assistance Do you need any assistance at home?: none
--- NOTE | 2017-06-27 13:03 | CR.HP_ITS ---
CR - History & Physical - General Arrival date:: 06/27/17 Arrival time:: 12:51 Date of Admission: 05/31/17 Referring Physician: Dr. Pako Abbasi Primary Diagnosis: Z95.5, I25.10, I21.4 05/31/2017 - History of Present Cardiac Event Onset Date: Enter Onset Date of cardiac illnesses in Comment field below Angina:: Yes PTCA:: Yes Were there any complications?: hematoma - Medications Home Medications: Ambulatory Orders Medication Instructions Recorded Cholecalciferol (VIT D3) [Vitamin 1,000 unit PO DAILY 04/16/15 D3] Lansoprazole [Prevacid] 30 mg PO DAILY 04/16/15 Levothyroxine Sodium [Unithroid] 50 mcg PO DAILY 04/16/15 Fluticasone/Salmeterol [Advair 1 ea IH BID 12/01/16 250-50 Diskus] Ipratropium/Albuterol Respimat 1 puff INHALATION BID 12/01/16 [Combivent Respimat Inhal [place]] Ipratropium/Albuterol Sulfate 3 ml INHALATION BID PRN 05/30/17 [Duoneb] Acetaminophen [Tylenol Tablet] 650 mg PO Q6H PRN PRN tab 06/01/17 atorvastatin 80 mg tablet 80 mg PO QHS #90 tab 06/08/17 clopidogrel 75 mg tablet 75 mg PO DAILY #90 tab 06/08/17 lisinopril 10 mg tablet 10 mg PO DAILY #90 tab 06/08/17 metoprolol tartrate 25 mg tablet 12.5 mg PO BID #90 tab 06/08/17 - Allergies Allergies/Adverse Reactions: Allergies metformin Allergy (Verified 06/08/17 13:43) Unknown Penicillins [PCN] Allergy (Verified 06/08/17 13:43) Unknown - Sleep Disorder Evaluation Hx of Sleep Apnea: No Do you snore loudly (louder than talking or can be heard through closed doors)? 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 Living Will: Yes Advance Directives Information Provided: Yes Advance Directives on File: Yes DNR Order?:: No Past Medical History - Problems and Co-Morbidities Problems & Co-Morbidities: Dyslipidemia, Hypertension, Sedentary Lifestyle, Anxiety - Past Medical Illness Past Medical Illness: Lung or Breathing Problems - asthma, COPD - Past Cardiac Illness Past Cardiac Illness: Other - pacer - Other Other: Vision/Eye Problems - Cardiology Procedures/Interventions Cardiology Procedures/Interventions: PCI w/Stenting, Heart Catheterization - Past Surgical History Surgical History: noncontributory - Family History Summary Family History: Diabetes: Offspring, Heart Disease: Paternal, Offspring, Stroke : Maternal, Cancer: Sibling, Paternal, Hypertension: Offspring, Maternal Review of Systems - Review of Systems Hints: Right click = Denies (Slash). Left click = Reports ([place]) Review of Present Symptoms: Reports: Shortness of Breath with Exertion - Asthma , COPD, Angina, Fatigue, Appetite - Normal, Sleep - Normal. Denies: Shortness of Breath at Rest, PVD, Operative Discomfort, Wound Healing, Dizziness/ Lightheadedness, Heart Arrhythmia/Irregularities, Appetite - Special Diet, Sexual Changes Risk Factor Assessment - Chief Complaint Chief Complaint: CP - Pulse Pulse Rate: 66 - SPO2 99 Pulse Rhythm: Regular - Hypertension How long have you been treated?: 10 Blood Pressure Sitting - Left Arm: 150/50 - Stress Stress: Long-standing, Home/Family - Diabetes Nutrition Referral for Diabetes: No - Obesity Height: 1.65 m Weight:: 65.771 kg Weight in Pounds: 145.0 lbs Body Mass Index (BMI): 24.1 Nutritional Referral for Obesity: No - Physical Inactivity Physical Inactivity: Reg Exercise 30 min/day, Recreational activity - Risk Stratification Risk Guidelines: Moderate Risk: Risk Factor for Smoking, Risk Factor for Dyslipidemia, Risk Factor for Diabetes, Risk Factor for Obesity, Risk Factor for Hypertension, Risk Factor for Sedentary Lifestyle, Risk Factor for Depression - For Smoking Smoking Risk Guidelines: Smoking Low Risk: None or quit greater than 6 months ago. Smoking Moderate Risk: Smoker or quit 6 months or less ago. Smoking High Risk: Smoker - For Dyslipidemia Dyslipidemia Risk Guidelines: Low Risk: Moderate Risk: High Risk: 15-25% fat 25.1-29% fat >/= 30% fat. <7% sat fat 7-9% sat fat >9% sat fat. <150 mg chol 150-299 mg chol >/= 300 mg chol. LDL <100 LDL 100-129 LDL >/= 130. Chol/HDL ratio <5.0 Chol/HDL ratio 5.0-6.0 Chol/HDL ratio >6.0. Triglycerides <100 Triglycerides 100-149 Triglycerides >/= 150 - For Diabetes Mellitus Diabetes Risk Guidelines: Diabetes Low Risk: HgA1c <6.5% and/or FBG <120. Diabetes Moderate Risk: HgA1c 6.6-7.9% and/or FBG 120-180. Diabetes High Risk: HgA1c >/= 8% and/or FBG >180 - For Obesity/Overweight Obesity/Overweight Risk Guidelines: Obesity Low Risk: BMI <25.0. Obesity Moderate Risk: BMI 25-29.9. Obesity High Risk: BMI >/= 30.0 - For Hypertension Hypertension Risk Guidelines: Hypertension Low Risk: Systolic <120 and Diastolic <80. Hypertension Moderate Risk: Systolic 120-139 and Diastolic 80-89. Hypertension High Risk: Systolic >/= 140 and Diastolic >/= 90 - For Sedentary Lifestyle Sedentary Lifestyle Risk Guidelines: Sedentary Lifestyle Low Risk: >/= 1 ,500 kcal/week. Sedentary Lifestyle Moderate Risk: 700-1,499 kcal/week. Sedentary Lifestyle High Risk: < 700 kcal/week - For Depression Depression Risk Guidelines: Depression Low Risk: Not clinically depressed. Depression Moderate Risk: Mildly depressed. Depression High Risk: Clinically depressed - Family History Family History: Family History (Last Updated 06/08/17 @ 13:43 by Harvey Ortega) Father Cancer Heart disease Mother CVA (cerebral vascular accident) Hypertension Sister Hypertension Cancer Son Diabetes Hypertension Myocardial infarction, Onset Age: 48 Social History - Smoking History Smoking Status: Former smoker Years Smokin Packs Smoked per Day: 2 Hx Tobacco Use: Yes - reformed Hx Smoking Exposure: Yes - Alcohol Use Alcohol Usage: No - Substance Abuse Hx Substance Use: No - Occupation Occupation (List type of work in comments):: Retired - Hobbies, Recreation, Social Activities Hobbies: Farm, Sewing, Reading, Walking, None Recreational Activities: I am able to engage in all my recreational activities Marital Status - Status Marital Status: - Current Living Arrangements Living Environment:: Alone - Children How many children do you have?: 4 Do any of your children live nearby?: Yes - Safety Do you feel safe in your surroundings?: Yes - Assistance Do you need any assistance at home?: none
[2017-06-27 13:50] VITALS: BP 150/50
[2017-06-27 13:53] VITALS: BP 150/50; PULSE 66; BMI 24.1
== END ==
PROVIDERS: Family Provider Internal Medicine; PCP Internal Medicine; Visit Provider Internal Medicine Cardiovascular Disease
DX: Z95.5 Presence of coronary angioplasty implant and graft (principal); I25.10 Atherosclerotic heart disease of native coronary artery without angina pectoris; I21.4 Non-ST elevation (NSTEMI) myocardial infarction

== ENCOUNTER → 2017-07-13 09:30 | Outpatient (CLI) | payer MEDICARE, SELFPAY ==
[2017-06-01 08:52] VITALS: BMI 24.1
[2017-07-13 12:03] LABS: AST(SGOT) 113 U/L (15-37); Alanine Aminotransfer ALT/SGPT 133 U/L (13-56); Albumin, Serum 3.7 g/dL (3.2-5.0); Alkaline Phosphatase 245 U/L (45-117); Bilirubin, Direct 0.24 mg/dL (0.00-0.30); Cholesterol 116 mg/dL (200); Globulin 3.7 g/dL (2.2-4.2); High Density Lipoprotein 51 mg/dL; Protein, Total 7.4 g/dL (6.4-8.2); Triglycerides 46 mg/dL; Very Low Density Lipoprotein 9 mg/dL (5-40)
== END ==
PROVIDERS: Family Provider Internal Medicine; PCP Internal Medicine; Visit Provider Physician Assistant Medical
DX: E78.5 Hyperlipidemia, unspecified (principal)
CPT/HCPCS: 36415; 80061; 80076

== ENCOUNTER → 2017-08-08 10:53 | Outpatient (CLI) | payer MEDICARE, SELFPAY ==
[2017-06-01 08:52] VITALS: BMI 24.1
--- NOTE | 2017-08-08 10:56 | BD_ITS ---
STUDY: DUAL ENERGY X-RAY ABSORPTIOMETRY / DXA REASON FOR EXAM: Female, 82 years old. The patient is postmenopausal. TECHNIQUE: Bone Mineral Density (BMD) measurements of lumbar spine and bilateral hips were obtained. COMPARISON: None. FINDINGS: Lumbar Spine (L1-L4): g/cm2 (0.962) / T-score (-1.7) / Z-score (0.1) Findings are suggestive of osteopenia with a moderate fracture risk. Increased thoracic kyphosis. Left Femur Total: g/cm2 (0.821) / T-score (-1.5) / Z-score (0.5) Left Femoral Neck: g/cm2 (0.714) / T-score (-2.3) / Z-score (-0.2) Right Femur Total: g/cm2 (0.776) / T-score (-1.8) / Z-score (0.2) Right Femoral Neck: g/cm2 (0.658) / T-score (-2.7) / Z-score (-0.6) BD/Dexa Bone Density Study IMPRESSION: The patient is considered osteoporotic as outlined below according to World Anoop Organization (WHO) criteria with a high fracture risk. Reference Information: The T-score is the number of standard deviations above or below the standard which is normal for young adults at their peak bone mineral density. The World Health Organization (WHO) interprets the T-scores as follows: Above -1 Normal bone density Between -1 and -2.5 Osteopenia Equal to / or below -2.5 Osteoporosis As a practical clinical guideline, osteopenia may be graded as follows: Mild -1 through -1.5 Moderate -1.6 through -2.0 Severe -2.1 through -2.4 The Z-score is the number of standard deviations above or below age-matched controls. A Z-score of less than -1.5 would be considered abnormal. References: 1. NIH Osteoporosis and Related Bone Diseases http://www.osteo.org 2. International Society for Clinical Densitometry http://www.iscd.org 3. National Osteoporosis Foundation http://www.nof.org Electronically Signed: Grabiel Gallagher MD at 12:33 EDT Tel [phone], Service support ,
== END ==
PROVIDERS: Family Provider Internal Medicine; PCP Internal Medicine; Visit Provider Internal Medicine
DX: Z78.0 Asymptomatic menopausal state (principal)
CPT/HCPCS: 77080; 93798

== ENCOUNTER 2017-08-15 13:00 | Outpatient (RCR) | payer MEDICARE, SELFPAY ==
[2017-06-01 08:52] VITALS: BMI 24.1
--- NOTE | 2017-08-08 10:45 | PCM.CR.ITP ---
General Information - General Information Admitting Diagnosis: NSTEMI w/PCI S/P coronary stenting - Education/Goals Barriers to Learning: None Cardiac Rehabilitation Goals: 1. Maintain the individual as the primary focus of care. 2. To improve the patient's quality of life. 3. Identification of cardiac risk factors and provide cardiac risk factor management. 4. Enhance the psychosocial status of the patient. 5. Reconditioning enough to allow the patient to resume customary activities. 6. Control symptoms of cardiac disease Scale for measuring improvement of personal goals: Enter appropriate number in Comments. 2 = Unchanged. 3 = Slightly Better. 4 = Moderate Improvement. 5 = Met my Goal Personal Goals: 30-day Re-assessment: Improve management of stress and emotions, Improve energy level, Improve diet and eating habits (eat healthier) Exercise - 30-day Assessment - Visit Date of Eval: 08/08/17 Session #:: 9 - Stages of Change Stages of Change:: Contemplate - Exercise Prescription Mode:: Treadmill, Airdyne, NuStep Frequency (x/week): 3 Duration:: 30 METs - Progression: 0.5-1 MET as tolerated: 3.6 Target Heart Rate:: 98-106 Max HR 107 - Hypertension Resting Blood Pressure:: 98/52 - 44% MET increase Peak Exercise Blood Pressure:: 152/70 Medication Changes:: No - Education Goals:: Warm-up, RPE BELINDA Scale, S/S, Safe Exercise, Self-Monitoring - Exercise Program Goals Exercise Program Goals: Aerobic Activity >30 min, B/P <130/80 Nutrition - 30-Day Assessment - Program Goals Nutrition Program Goals: LDL <70. Total Cholesterol <200. HDL >45. Triglycerides <150. HgbA1C <7%. BMI <25 - Visit Date of Eval: 08/08/17 - Stages of Change Stages of Change:: Contemplate - Lipids Has the patient seen the dietitian?: No - Diabetes Diabetes:: No - Weight Management Weight:: 63.957 kg - Intervention Referral to dietitian:: No Referral to Diabetic Clinic:: No Will attend diet classes:: Yes - Education Attended class for:: Signs & symptoms of hypoglycemia, Signs & symptoms of hyperglycemia, Relate diabetes to coronary artery disease Tobacco - Initial Assessment - Program Goals Tobacco Program Goals: Complete smoking cessation. Attend education classes. Improve Knowledge Test score - Learning Barriers Learning Barriers: Vision Tobacco - 30-Day Assessment - Program Goals Tobacco Program Goals: Complete smoking cessation. Attend education classes. Improve Knowledge Test score - Stage of Change Stages of Change:: Contemplate - Learning Barriers Learning Barriers: Participates in education - Family Support Do you have family support?: Yes - Tobacco Use Tobacco Use: Non-smoker Do you use smokeless tobacco?: No - Intervention Smoking Cessation Referral:: No Individual Education/Counseling:: No Education Schedule Given:: Yes - Education Attended class for:: Tobacco triggers, Coronary artery disease, Risk factors, Sexuality, Medical compliance, Cardiac A&P, Angina signs & symptoms Psychosocial - Initial Assess - Target Goals Target Goals: Assess presence or absence of depression. Using a valid screening tool, maximizes coping skills. Positive support system - Psychosocial Test Tool Used:: HANDS Depression Questionnaire - Assistive Devices Fall Risk Assessed:: Yes Psychosocial - 30-Day Assess - Target Goals Target Goals: Assess presence or absence of depression. Using a valid screening tool, maximizes coping skills. Positive support system - Stages of Change Stages of Change:: Contemplate - Psychosocial Test Tool Used:: HANDS Depression Questionnaire - Intervention PS - Interventions: Yes Attend Stress Management Classes, Yes Uses Stress Management Skills, No Referral to Mental Health, No Referral to [facility] Case Management, No Referral to Physician - Education Attended classes for:: Coping techniques, Signs & symptoms of depression, Stress management, Relaxation techniques - Assistive Devices Assistive Devices:: None Fall Risk Assessed:: Yes Patient Health Questionnaire 30-Day Re-eval Assessment 1. Little interest or pleasure in doing things: Several days 2. Feeling down, depressed, or hopeless: Not at all 3. Trouble falling or staying asleep, or sleeping too much: More than half the days 4. Feeling tired or having little energy: More than half the days 5. Poor appetite or overeating: More than half the days 6. Feeling bad about yourself -- or that you are a failure or have let yourself or your family down: Not at all 7. Trouble concentrating on things, such as reading the newspaper or watching television: Not at all 8. Moving or speaking so slowly that other people could have noticed. Or the opposite - being so fidgety or restless that you have been moving around a lot more than usual: More than half the days 9. Thoughts that you would be better off , or of hurting yourself in some way: Not at all How difficult have these problems made it for you to do your work, take care of things at home, or get along with other people?: Somewhat difficult Total Score: 9 Self-Efficacy 30-Day Re-eval Assessment We would like to know how confident you are in doing certain activities. Please select your confidence level for:: Select your confidence level for the following using the scale 1-10 where 1 is not at all confident and 10 is totally confident. Your score is the average of all 6 responses. Fatigue: How confident are you that you can keep the fatigue caused by your disease from interfering with the things you want to do? Select Number: 3 Physical Discomfort or Pain: How confident are you that you can keep the physical discomfort or pain of your disease from interfering with the things you want to do? Select Number: 5 Emotional Distress: How confident are you that you can keep the emotional distress caused by your disease from interfering with the things you want to do? Select Number: 4 Other Symptoms or Health Problems: How confident are you that you can keep other symptoms or health problems from interfering with the things you want to do? Select Number: 1 Different Tasks and Activities: How confident are you that you can do the different tasks and activities needed to manage your health condition so as to reduce your need to see a doctor? Select Number: 2 Medication: How confident are you that you can do things other than just taking medication to reduce how much your illness affects your everyday life? Select Number: 6 Total Score:: 3
[2017-08-08 10:52] VITALS: BP 152/70; BP 98/52
== END 2017-08-16 23:59 ==
LOC: CR 13:00
PROVIDERS: Family Provider Internal Medicine; PCP Internal Medicine; Visit Provider Internal Medicine Cardiovascular Disease
DX: Z95.5 Presence of coronary angioplasty implant and graft (principal); I25.10 Atherosclerotic heart disease of native coronary artery without angina pectoris; I21.4 Non-ST elevation (NSTEMI) myocardial infarction
CPT/HCPCS: 93798

== ENCOUNTER → 2017-08-17 09:32 | Outpatient (CLI) | payer MEDICARE, SELFPAY ==
[2017-06-01 08:52] VITALS: BMI 24.1
[2017-08-17 11:02] LABS: AST(SGOT) 28 U/L (15-37); Alanine Aminotransfer ALT/SGPT 26 U/L (13-56); Albumin, Serum 3.7 g/dL (3.2-5.0); Alkaline Phosphatase 92 U/L (45-117); Cholesterol 191 mg/dL (200); Globulin 3.6 g/dL (2.2-4.2); High Density Lipoprotein 54 mg/dL; Protein, Total 7.3 g/dL (6.4-8.2); Triglycerides 70 mg/dL; Very Low Density Lipoprotein 14 mg/dL (5-40)
== END ==
PROVIDERS: Family Provider Internal Medicine; PCP Internal Medicine; Visit Provider Internal Medicine Cardiovascular Disease
DX: E78.00 Pure hypercholesterolemia, unspecified (principal); I25.10 Atherosclerotic heart disease of native coronary artery without angina pectoris; Z95.5 Presence of coronary angioplasty implant and graft; I25.2 Old myocardial infarction
CPT/HCPCS: 36415; 80061; 80076; 93798

== ENCOUNTER → 2017-08-31 14:16 | Outpatient (CLI) | payer MEDICARE, SELFPAY ==
[2017-06-01 08:52] VITALS: BMI 24.1
[2017-08-31 16:21] LABS: BNP,B-Type NATRIURETIC PEPTIDE 71.7 pg/mL (0-100)
== END ==
PROVIDERS: Nurse Practitioner Family; Family Provider Internal Medicine; PCP Internal Medicine; Visit Provider Internal Medicine Cardiovascular Disease
DX: I25.10 Atherosclerotic heart disease of native coronary artery without angina pectoris (principal); I49.5 Sick sinus syndrome; R06.02 Shortness of breath; R53.83 Other fatigue; Z95.0 Presence of cardiac pacemaker; I21.4 Non-ST elevation (NSTEMI) myocardial infarction; Z95.5 Presence of coronary angioplasty implant and graft
CPT/HCPCS: 36415; 83880; 93798

== ENCOUNTER 2017-09-05 13:00 | Outpatient (RCR) | payer MEDICARE, SELFPAY ==
[2017-06-01 08:52] VITALS: BMI 24.1
[2017-08-17 00:12] VITALS: BP 152/70; BP 98/52
[2017-09-07 10:53] VITALS: BP 154/64; BP 170/80
--- NOTE | 2017-09-07 10:53 | CR.ITP_ITS ---
General Information - General Information Admitting Diagnosis: PCI with coronary stenting - Education/Goals Cardiac Rehabilitation Goals: 1. Maintain the individual as the primary focus of care. 2. To improve the patient's quality of life. 3. Identification of cardiac risk factors and provide cardiac risk factor management. 4. Enhance the psychosocial status of the patient. 5. Reconditioning enough to allow the patient to resume customary activities. 6. Control symptoms of cardiac disease Scale for measuring improvement of personal goals: Enter appropriate number in Comments. 2 = Unchanged. 3 = Slightly Better. 4 = Moderate Improvement. 5 = Met my Goal Personal Goals: 60-day Re-assessment: Improve management of stress and emotions , Improve energy level, Improve diet and eating habits (eat healthier) Exercise - 60-Day Assessment - Visit Date of Eval: 09/07/17 - 60.71 % compliant Session #:: 17 - Stages of Change Stages of Change:: Action - Exercise Prescription Mode:: Treadmill, Airdyne, NuStep Frequency (x/week): 3 Duration:: 30 METs: 4.5 80% increase Target Heart Rate:: 112-120 max 112 - Hypertension Resting Blood Pressure:: 154/64 Peak Exercise Blood Pressure:: 170/80 Medication Changes:: No - Intervention Home Exercise/Activity Goal:: Sitting Time <3 hrs/day - Education Goals:: Warm-up, RPE BELINDA Scale, S/S, Safe Exercise, Self-Monitoring - Exercise Program Goals Exercise Program Goals: Aerobic Activity >30 min, B/P <130/80 Nutrition - 60-Day Assessment - Program Goals Nutrition Program Goals: LDL <70. Total Cholesterol <200. HDL >45. Triglycerides <150. HgbA1C <7%. BMI <25 - Visit Date of Eval: 09/07/17 - Stages of Change Stages of Change:: Action - Lipids Has the patient seen the dietitian?: No - Weight Management Weight:: 64.637 kg - Intervention Referral to dietitian:: No Referral to Diabetic Clinic:: No Will attend diet classes:: Yes - Education Attended class for:: Signs & symptoms of hypoglycemia, Signs & symptoms of hyperglycemia, Relate diabetes to coronary artery disease, Healthy eating Tobacco - Initial Assessment - Program Goals Tobacco Program Goals: Complete smoking cessation. Attend education classes. Improve Knowledge Test score - Learning Barriers Learning Barriers: Vision Tobacco - 60-Day Assessment - Program Goals Tobacco Program Goals: Complete smoking cessation. Attend education classes. Improve Knowledge Test score - Stage of Change Stages of Change:: Action - Learning Barriers Learning Barriers: Participates in education - Family Support Do you have family support?: Yes - Tobacco Use Tobacco Use: Non-smoker Do you use smokeless tobacco?: No - Intervention Smoking Cessation Referral:: No Individual Education/Counseling:: No Education Schedule Given:: Yes - Education Attended class for:: Tobacco triggers, Coronary artery disease, Risk factors, Sexuality, Medical compliance, Cardiac A&P, Angina signs & symptoms Psychosocial - Initial Assess - Target Goals Target Goals: Assess presence or absence of depression. Using a valid screening tool, maximizes coping skills. Positive support system - Psychosocial Test Tool Used:: HANDS Depression Questionnaire - Assistive Devices Fall Risk Assessed:: Yes Psychosocial - 60-Day Assess - Target Goals Target Goals: Assess presence or absence of depression. Using a valid screening tool, maximizes coping skills. Positive support system - Stages of Change Stages of Change:: Action - Psychosocial Test Tool Used:: HANDS Depression Questionnaire - Intervention PS - Interventions: Yes Attend Stress Management Classes, Yes Uses Stress Management Skills, No Referral to Mental Health, No Referral to [facility] Case Management, No Referral to Physician - Education Attended classes for:: Coping techniques, Signs & symptoms of depression, Stress management, Relaxation techniques - Assistive Devices Assistive Devices:: None Fall Risk Assessed:: Yes Patient Health Questionnaire 60-Day Re-eval Assessment 1. Little interest or pleasure in doing things: Several days 2. Feeling down, depressed, or hopeless: Not at all 3. Trouble falling or staying asleep, or sleeping too much: More than half the days 4. Feeling tired or having little energy: More than half the days 5. Poor appetite or overeating: More than half the days 6. Feeling bad about yourself -- or that you are a failure or have let yourself or your family down: Not at all 7. Trouble concentrating on things, such as reading the newspaper or watching television: Not at all 8. Moving or speaking so slowly that other people could have noticed. Or the opposite - being so fidgety or restless that you have been moving around a lot more than usual: Not at all 9. Thoughts that you would be better off , or of hurting yourself in some way: Not at all How difficult have these problems made it for you to do your work, take care of things at home, or get along with other people?: Somewhat difficult Total Score: 7 Self-Efficacy 60-Day Re-eval Assessment We would like to know how confident you are in doing certain activities. Please select your confidence level for:: Select your confidence level for the following using the scale 1-10 where 1 is not at all confident and 10 is totally confident. Your score is the average of all 6 responses. Fatigue: How confident are you that you can keep the fatigue caused by your disease from interfering with the things you want to do? Select Number: 4 Physical Discomfort or Pain: How confident are you that you can keep the physical discomfort or pain of your disease from interfering with the things you want to do? Select Number: 5 Emotional Distress: How confident are you that you can keep the emotional distress caused by your disease from interfering with the things you want to do? Select Number: 4 Other Symptoms or Health Problems: How confident are you that you can keep other symptoms or health problems from interfering with the things you want to do? Select Number: 3 Different Tasks and Activities: How confident are you that you can do the different tasks and activities needed to manage your health condition so as to reduce your need to see a doctor? Select Number: 4 Medication: How confident are you that you can do things other than just taking medication to reduce how much your illness affects your everyday life? Select Number: 4 Total Score:: 4
== END 2017-09-15 23:59 ==
LOC: CR 13:00
PROVIDERS: Family Provider Internal Medicine; PCP Internal Medicine; Visit Provider Internal Medicine Cardiovascular Disease
DX: I21.4 Non-ST elevation (NSTEMI) myocardial infarction (principal); Z95.5 Presence of coronary angioplasty implant and graft; I25.10 Atherosclerotic heart disease of native coronary artery without angina pectoris
CPT/HCPCS: 93798

== ENCOUNTER → 2017-09-05 15:22 | Outpatient (CLI) | payer MEDICARE, SELFPAY ==
[2017-06-01 08:52] VITALS: BMI 24.1
[2017-09-05 15:55] LABS: Hematocrit 34.8 % (37-47); Hemoglobin 11.7 g/dl (12.0-15.0); Mean Corp Hgb Conc 33.6 g/gl (32-36); Mean Corpuscular Hgb 31.1 pg (27.0-32.0); Mean Corpuscular Volume 92.6 fL (81-99); Mean Platelet Vol. 9.5 fl (6.2-12.0); Platelet Count 212 K/mm3 (150-450); RBC Distribution Width CV 12.2 % (11.6-14.6); Red Blood Count 3.76 M/mm3 (4.2-5.4); Scan Indicated on CBC? Y/N NO; White Blood Count 8.3 K/mm3 (4.4-11.0)
[2017-09-05 16:19] LABS: Anion Gap 7 (5-15); BUN 18 mg/dL (7-18); BUN/Creat Ratio 18.6 RATIO (10-20); Calcium,Total 9.1 mg/dL (8.5-10.1); Chloride 104 mmol/L (98-107); Creatinine, Serum 0.97 mg/dL (0.55-1.02); EST Glomerular Filtration Rate 59 mL/min (>60); Est Glom Filt Rate - Afr Amer 71 mL/min (>60); Glucose 88 mg/dL (74-106); Potassium 4.4 mmol/L (3.5-5.1); Sodium Level 140 mmol/L (136-145)
== END ==
PROVIDERS: Family Provider Internal Medicine; PCP Internal Medicine; Visit Provider Internal Medicine Cardiovascular Disease
DX: R06.02 Shortness of breath (principal)
CPT/HCPCS: 36415; 80048; 85027

== ENCOUNTER 2017-09-10 09:49 | Day surgery (SDC) | payer MEDICARE, SELFPAY ==
[2017-06-01 08:52] VITALS: BMI 24.1
[2017-09-07 10:54] VITALS: BMI 23.3
--- NOTE | 2017-09-10 10:51 | CON.PCM_ITS ---
Reason for Consult Date of Consultation: 09/10/17 Reason for Consultation: Chest pain History of Present Illness: The patient is a 82 year old F with past medical history consisting of coronary artery disease status post pacemaker placement who had presented to the emergency room in May because of chest pain. She denied associated dizziness, lightheadedness, syncope or presyncope. She mentioned that the pain is only around the pacemaker and pacemaker pops up when she lay on her left side. The pain around her pacemaker site however is different from this discomfort that she had. She had been seen in the office last fall and complained of mild chest discomfort and underwent a pharmacologic myocardial perfusion stress test in January 2017 which did not demonstrate any evidence of ischemia. You do remember that her last catheterization was performed in 2011. At that time demonstrated ejection fraction of 65%, left anterior descending artery with 20-30% proximal stenosis, first diagonal vessel with 50% ostial stenosis, small septal lens silverer with 20 to 30% stenosis in the circumflex artery 20% stenosis. Medical therapy was recommended. In May when she presented with the chest discomfort it was decided for her to undergo a cardiac catheterization and this was performed her left main coronary artery had mild disease right coronary artery had an ostial 30% stenosis the left anterior descending artery had mild disease. She did have tandem lesions in the circumflex artery and underwent angioplasty and stenting with a 2.5?24 mm Promus drug-eluting stent to the circumflex artery. She had done well since then but then started to complain of chest discomfort once again and so was seen in the office she had her medications changed but she continued to have recurrent chest discomfort and therefore it was decided to proceed with a cardiac catheterization. Past Medical History Allergies/Adverse Reactions: Allergies metformin Allergy (Verified 07/17/17 10:53) Unknown Penicillins [PCN] Allergy (Verified 07/17/17 10:53) Unknown atorvastatin Adverse Reaction (Severe, Verified 07/17/17 10:53) elevated liver enzymes Home Medications: Ambulatory Orders Medication Instructions Recorded Cholecalciferol (VIT D3) [Vitamin 1,000 unit PO DAILY 04/16/15 D3] Lansoprazole [Prevacid] 30 mg PO DAILY 04/16/15 Levothyroxine Sodium [Unithroid] 50 mcg PO DAILY 04/16/15 Ipratropium/Albuterol Respimat 1 puff INHALATION BID 12/01/16 [Combivent Respimat Inhal [place]] Ipratropium/Albuterol Sulfate 3 ml INHALATION BID PRN 05/30/17 [Duoneb] Acetaminophen [Tylenol Tablet] 650 mg PO Q6H PRN PRN tab 06/01/17 clopidogrel 75 mg tablet 75 mg PO DAILY #90 tab 06/08/17 lisinopril 10 mg tablet 10 mg PO DAILY #90 tab 06/08/17 metoprolol tartrate 25 mg tablet 12.5 mg PO BID #90 tab 08/03/17 atorvastatin 40 mg tablet 40 mg PO .every other day #90 tab 08/28/17 isosorbide mononitrate ER 30 mg 30 mg PO QAM #30 tab 08/31/17 tablet,extended release 24 hr aspirin 81 mg tablet,delayed 81 mg PO QDAY 09/05/17 release Past Medical History (Chronic Problems): Chronic Problems (Last Updated 07/31/17 @ 19:06 by Nikki Tamayo) Sick sinus syndrome (Chronic) Cardiac pacemaker in situ (Chronic) Pacemaker implant 12/18/06; Generator change 04/19/15 HLD (hyperlipidemia) (Chronic) Complete heart block by electrocardiogram (Chronic) Encounter for long-term current use of high risk medication (Chronic) Atherosclerotic heart disease of [place] coronary artery without angina pectoris (Chronic) Nonrheumatic mitral (valve) prolapse (Chronic) Dyslipidemia (Chronic) COPD (chronic obstructive pulmonary disease) (Chronic) Left foot pain (Chronic) Ganglion cyst of left foot (Chronic) Bone spur of foot (Chronic) Hypothyroidism (Chronic) Hypertension (Chronic) Surgical History: noncontributory - *Family History Maternal Family History: Family History (Last Reviewed 07/17/17 @ 11:10 by Pako Abbasi MD) Father Cancer Heart disease Mother CVA (cerebral vascular accident) Hypertension Sister Hypertension Cancer Son Diabetes Hypertension Myocardial infarction, Onset Age: 48 History Items: No pertinent history Paternal Family History: Family History (Last Reviewed 07/17/17 @ 11:10 by Pako Abbasi MD) Father Cancer Heart disease Mother CVA (cerebral vascular accident) Hypertension Sister Hypertension Cancer Son Diabetes Hypertension Myocardial infarction, Onset Age: 48 History Items: No pertinent history Smoking Status: Former smoker Alcohol: None Drugs: None Review of Systems - Review of Systems General: Denies: Fever, Night Sweats, Fatigue Cardiovascular: Reports: Chest Discomfort, Chest Discomfort with Exertion. Denies: Shortness of Breath, Orthopnea, PND, Peripheral Edema, Palpitations, Lightheadedness, Dizziness, Near Syncope, Syncope Respiratory: Denies: Cough, Sputum Production, Hemoptysis Gastrointestinal: Denies: Hematemesis, Hematochezia, Melena Genitourinary: Denies: Dysuria, Hematuria Skin: Denies: Rash Subjectve: Pleasant lady in no apparent distress Objective: Weight: 140 lb Body Mass Index (BMI) 23.3 General: Awake, Alert, Oriented x 3 HEENT: PERRL, EOMI, Sclera Non Icteric Neck: Supple, Good ROM, No Lymph Node Enlargement Lungs: Clear to auscultation Cardiovascular: Regular Rhythm, Normal S1, Normal S2, No Murmurs, No Rubs, No Gallops Vascular: No Carotid Bruits, Normal Femoral Pulses, Normal Radial Pulses, Normal Dorsalis Pedal Pulse, Normal Posterior Tibial Pulses Abdomen: Bowel Sounds Present, Soft, Non Tender, No HSM, No Organomegaly Extremities: No Cyanosis, No Clubbing, No edema Neurological: No Focal Motor or Sensory Deficit Rhythm: EKG: ECHO: Stress Test: Cardiac Cath: PCI: CT Surgery: Holter monitor: EPS: PPM: CXR: Chest CT Scan: Assessment/Plan 1. Recurrent chest pain. She does have a history of coronary artery disease status post angioplasty and stenting with a drug-eluting stent to the circumflex artery in May of this year. She has continued with beta-virgilio and clopidogrel and has been on cardiac rehabilitation however due to recurrent chest discomfort it was decided to pursue a cardiac catheterization. The risk benefits and alternatives have been explained to her she understands and agrees to proceed. 2. Hyperlipidemia. She does have a history of hyperlipidemia on high intensity statin her most recent lipid profile demonstrated a total cholesterol of 116, LDL of 56, and HDL of 51. She did have elevated liver function tests and therefore her atorvastatin was discontinued and a repeat lipid profile will be performed. 3. Status post cardiac pacemaker placement. She does have a sequential AV pacemaker which has been interrogated with a pacemaker battery change in 2016 no significant arrhythmias have been noted. 4. Hypertension. Her blood pressure appears to be under good control and will continue the current medical therapy. No major changes will be made at this time. Thank you for allowing me to participate in the care of your patient. Please don't hesitate to call if any issues arise
--- NOTE | 2017-09-10 11:34 | CL.D_ITS ---
Patient Name: MICK CHINCHILLA Study Date: 09/10/2017 Performing: Pako Abbasi MD Ht: 65 inches 165 cm : 1935 Wt: 141.3 lbs 64 kg Age: 82 Gender: female BSA: 1.7 PROCEDURE(S) PERFORMED [id number]/LV CLINICAL PROFILE AND INDICATIONS Indications: Worsening Angina Heart Failure: None Stress/Imaging Stress/Image Study Performed: No CAD Presentations: Symptom unlikely to be ischemic. CONCLUSIONS Mild coronary artery disease involving the second obtuse marginal vessel. Previously placed stent is patent. RECOMMENDATIONS Medical therapy DESCRIPTION OF PROCEDURE The patient arrived to the procedure lab. The risks and benefits of the procedure as well as a full d escription of our services here and current unavailability of surgical backup were fully explained to the patient and/or their significant other prior to the catheterization. The Timeout was completed, verifying the correct patient and procedure. The patient's procedural site was prepped and draped in the usual fashion. Local anesthetic was given subcutaneously to right radial region with Lidocaine 2% . Using a modified Seldinger technique, arterial access was obtained via the right radial artery, a 6 Fr sheath was inserted. Left Coronary Artery selective angiography was performed in multiple views u sing a 5 Fr. 4.0 [place] catheter. Right Coronary Artery selective angiography was then performed in mu ltiple views using a 5 Fr. 4.0 [place] catheter. Left Ventriculography was performed in MCLEOD projection using a 5 Fr. Pigtail catheter. LV to AO pullback pressures were then recorded.The arterial sheath wa s pulled and a TR Band was applied for hemostasis. 18cc of air CORONARY ANGIOGRAPHY DOMINANCE: Left Dominant LEFT HEART ASSESSMENT Left Ventricular Ejection Fraction: by LV Gram 60 % Normal LV wall motion Normal Left Ventricular systolic function LEFT MAIN: Angiographically normal LEFT ANTERIOR DECENDING ARTERY: Mild luminal irregularities OSTIAL LAD: 30 % Stenosis CIRCUMFLEX ARTERY: MID CIRC: Previously placed stent is patent OM 2: Proximal - Moderate luminal irregularities up to 50% RIGHT CORONARY ARTERY: Mild luminal irregularities COMPLICATIONS No Complications PROCEDURE MEDICATIONS Versed 1 mg IV Oxygen: 2 L/min via nasal cannula Heparin diluted in 23cc Heparinized saline. Patient given 10cc IA of this solution. 09/10/2017 11:12: 12 Verapamil 2.5mg, Ntg 100mcgs, 2000 units of Heparin diluted in 23cc Heparinized saline. Patient give n 10cc IA of this solution. 09/10/2017 11:12:12 SUMMARY OF HEMODYNAMIC DATA Time AIR REST ECG 10:33:24 AO 128/72 (96) SA 11:13:50 LV 121/4, 0 11:21:51 LV 122/5, 14 11:21:59 LV 100/7, 15 11:22:42 LVp 100/7, 16 11:22:46 AOp 106/54 (76) 11:22:51 Signed By Pako Abbasi MD On 09/10/2017 11:33:39 AM Pako Abbasi MD
== END 2017-09-10 15:15 | disposition home or self-care (01) ==
LOC: CLSP 09:49
PROVIDERS: Family Provider Internal Medicine; PCP Internal Medicine; Visit Provider Internal Medicine Cardiovascular Disease
DX: I25.10 Atherosclerotic heart disease of native coronary artery without angina pectoris (principal); Z95.5 Presence of coronary angioplasty implant and graft; Z95.0 Presence of cardiac pacemaker; Z79.899 Other long term (current) drug therapy; Z79.82 Long term (current) use of aspirin; J44.9 Chronic obstructive pulmonary disease, unspecified; E03.9 Hypothyroidism, unspecified; I10 Essential (primary) hypertension; Z87.891 Personal history of nicotine dependence
CPT/HCPCS: 93005; 93458; 99152; 99153; J7040; Q9967; A4216; C1769; C1894

== ENCOUNTER 2017-10-15 13:00 | Outpatient (RCR) | payer MEDICARE, SELFPAY ==
[2017-06-01 08:52] VITALS: BMI 24.1
[2017-09-16 00:18] VITALS: BP 154/64; BP 170/80
[2017-10-10 09:22] VITALS: BP 150/78; BP 200/90
--- NOTE | 2017-10-10 09:23 | CR.ITP_ITS ---
General Information - General Information Admitting Diagnosis: PCI with coronary stenting - Education/Goals Barriers to Learning: None Cardiac Rehabilitation Goals: 1. Maintain the individual as the primary focus of care. 2. To improve the patient's quality of life. 3. Identification of cardiac risk factors and provide cardiac risk factor management. 4. Enhance the psychosocial status of the patient. 5. Reconditioning enough to allow the patient to resume customary activities. 6. Control symptoms of cardiac disease Scale for measuring improvement of personal goals: Enter appropriate number in Comments. 2 = Unchanged. 3 = Slightly Better. 4 = Moderate Improvement. 5 = Met my Goal Personal Goals: Discharge Reassessment: Improve management of stress and emotions, Improve energy level, Improve diet and eating habits (eat healthier) Exercise - 90-Day Assessment - Visit Date of Eval: 10/10/17 - Stages of Change Stages of Change:: Action - Exercise Prescription Mode:: Treadmill, Airdyne, NuStep Frequency (x/week): 3 Duration:: 30 METs: 5 Target Heart Rate:: 112-120 Max HR 116 - Hypertension Resting Blood Pressure:: 150/78 Peak Exercise Blood Pressure:: 200/90 Medication Changes:: Yes - 08/31 started Imdur 30 mg QD - Intervention Home Exercise/Activity Goal:: Sitting Time <3 hrs/day - Education Goals:: Warm-up, RPE BELINDA Scale, S/S, Safe Exercise, Self-Monitoring - Exercise Program Goals Exercise Program Goals: Aerobic Activity >30 min, B/P <130/80 Nutrition - 90-Day Assessment - Program Goals Nutrition Program Goals: LDL <70. Total Cholesterol <200. HDL >45. Triglycerides <150. HgbA1C <7%. BMI <25 - Visit Date of Eval: 10/10/17 - Stages of Change Stages of Change:: Action - Lipids Has the patient seen the dietitian?: No - Weight Management Weight:: 64.41 kg - Intervention Referral to dietitian:: No Referral to Diabetic Clinic:: No Will attend diet classes:: Yes - Education Attended class for:: Signs & symptoms of hypoglycemia, Signs & symptoms of hyperglycemia, Relate diabetes to coronary artery disease, Healthy eating Tobacco - Initial Assessment - Program Goals Tobacco Program Goals: Complete smoking cessation. Attend education classes. Improve Knowledge Test score - Learning Barriers Learning Barriers: Vision Tobacco - 90-Day Assessment - Program Goals Tobacco Program Goals: Complete smoking cessation. Attend education classes. Improve Knowledge Test score - Stage of Change Stages of Change:: Action - Learning Barriers Learning Barriers: Participates in education - Family Support Do you have family support?: Yes - Tobacco Use Tobacco Use: Non-smoker Do you use smokeless tobacco?: No - Intervention Smoking Cessation Referral:: No Individual Education/Counseling:: No Education Schedule Given:: Yes - Education Attended class for:: Tobacco triggers, Coronary artery disease, Risk factors, Sexuality, Medical compliance, Cardiac A&P, Angina signs & symptoms Psychosocial - 90-Day Assess - Target Goals Target Goals: Assess presence or absence of depression. Using a valid screening tool, maximizes coping skills. Positive support system - Stages of Change Stages of Change:: Action - Psychosocial Test Tool Used:: HANDS Depression Questionnaire - Intervention PS - Interventions: Yes Attend Stress Management Classes, Yes Uses Stress Management Skills, No Referral to Mental Health, No Referral to [facility] Case Management, No Referral to Physician - Education Attended classes for:: Coping techniques, Signs & symptoms of depression, Stress management, Relaxation techniques - Assistive Devices Assistive Devices:: None Fall Risk Assessed:: Yes Patient Health Questionnaire 90-Day Re-eval Assessment 1. Little interest or pleasure in doing things: Several days 2. Feeling down, depressed, or hopeless: Not at all 3. Trouble falling or staying asleep, or sleeping too much: More than half the days 4. Feeling tired or having little energy: More than half the days 5. Poor appetite or overeating: More than half the days 6. Feeling bad about yourself -- or that you are a failure or have let yourself or your family down: Not at all 7. Trouble concentrating on things, such as reading the newspaper or watching television: Not at all 8. Moving or speaking so slowly that other people could have noticed. Or the opposite - being so fidgety or restless that you have been moving around a lot more than usual: Not at all 9. Thoughts that you would be better off , or of hurting yourself in some way: Not at all How difficult have these problems made it for you to do your work, take care of things at home, or get along with other people?: Not difficult at all Total Score: 7 Self-Efficacy 90-Day Re-eval Assessment We would like to know how confident you are in doing certain activities. Please select your confidence level for:: Select your confidence level for the following using the scale 1-10 where 1 is not at all confident and 10 is totally confident. Your score is the average of all 6 responses. Fatigue: How confident are you that you can keep the fatigue caused by your disease from interfering with the things you want to do? Select Number: 5 Physical Discomfort or Pain: How confident are you that you can keep the physical discomfort or pain of your disease from interfering with the things you want to do? Select Number: 5 Emotional Distress: How confident are you that you can keep the emotional distress caused by your disease from interfering with the things you want to do? Select Number: 5 Other Symptoms or Health Problems: How confident are you that you can keep other symptoms or health problems from interfering with the things you want to do? Select Number: 5 Different Tasks and Activities: How confident are you that you can do the different tasks and activities needed to manage your health condition so as to reduce your need to see a doctor? Select Number: 5 Medication: How confident are you that you can do things other than just taking medication to reduce how much your illness affects your everyday life? Select Number: 5 Total Score:: 5
== END 2017-10-16 23:59 ==
LOC: CR 13:00
PROVIDERS: Family Provider Internal Medicine; PCP Internal Medicine; Visit Provider Internal Medicine Cardiovascular Disease
DX: I21.4 Non-ST elevation (NSTEMI) myocardial infarction (principal); I25.10 Atherosclerotic heart disease of native coronary artery without angina pectoris; Z95.5 Presence of coronary angioplasty implant and graft
CPT/HCPCS: 93798

== ENCOUNTER 2017-10-31 13:00 | Outpatient (RCR) | payer MEDICARE, SELFPAY ==
[2017-06-01 08:52] VITALS: BMI 24.1
[2017-10-17 00:24] VITALS: BP 150/78; BP 200/90
--- NOTE | 2017-11-09 14:50 | PCM.CR.ITP ---
Exercise - Final/Discharge - Visit Date of Eval: 11/09/17 - Stages of Change Stages of Change:: Action - Exercise Prescription Mode:: Treadmill, Rower, Airdyne, NuStep Frequency (x/week): 3 Duration:: 35 METs: 5 Target Heart Rate:: 112-120 - Hypertension Do any of the following apply?: Yes Resting Blood Pressure:: 122/64 Peak Exercise Blood Pressure:: 184/84 - Intervention Home Exercise/Activity Goal:: Moderate Exercise 30 min/day x 5 days/wk - Education Goal Progress: Goal Met - Exercise Program Goals Exercise Program Goals: Aerobic Activity >30 min Nutrition - Final Assessment - Program Goals Nutrition Program Goals: LDL <70. Total Cholesterol <200. HDL >45. Triglycerides <150. HgbA1C <7%. BMI <25 - Visit Date of Eval: 11/09/17 - Stages of Change Stages of Change:: Action - Diabetes Diabetes:: No Insulin: No Non-Insulin Dependent?: No - Weight Management Height: 5 ft 5 in Weight:: 142 lb - Intervention Referral to dietitian:: No Referral to Diabetic Clinic:: No Will attend diet classes:: Yes - Education Education Goal Reached?: Yes Tobacco - Initial Assessment - Program Goals Tobacco Program Goals: Complete smoking cessation. Attend education classes. Improve Knowledge Test score - Learning Barriers Learning Barriers: Vision Tobacco - Final Assessment - Program Goals Tobacco Program Goals: Complete smoking cessation. Attend education classes. Improve Knowledge Test score - Stage of Change Stages of Change:: Action - Learning Barriers Cardiac Knowledge Test Score:: 20 - Family Support Do you have family support?: Yes - Tobacco Use Tobacco Use: Non-smoker Do you use smokeless tobacco?: No - Intervention Smoking Cessation Referral:: No Individual Education/Counseling:: No Education Schedule Given:: Yes - Education Education Goal Reached?: Yes Psychosocial - Initial Assess - Target Goals Target Goals: Assess presence or absence of depression. Using a valid screening tool, maximizes coping skills. Positive support system - Psychosocial Test Tool Used:: HANDS Depression Questionnaire - Assistive Devices Fall Risk Assessed:: Yes Psychosocial - Final Assessmen - Target Goals Target Goals: Assess presence or absence of depression. Using a valid screening tool, maximizes coping skills. Positive support system - Stages of Change Stages of Change:: Action - Psychosocial Test Tool Used:: HANDS Depression Questionnaire - Intervention PS - Interventions: Yes Attend Stress Management Classes, Yes Uses Stress Management Skills, No Referral to Mental Health, No Referral to [facility] Case Management, No Referral to Physician - Education Education Goal Reached?: Yes - Patient/Program Goal Preventative Medication(s):: Aspirin, Clopidogrel, Beta virgilio, Statin/lipid - Assistive Devices Assistive Devices:: None Fall Risk Assessed:: Yes Patient Health Questionnaire Discharge Assessment 1. Little interest or pleasure in doing things: Not at all 2. Feeling down, depressed, or hopeless: Not at all 3. Trouble falling or staying asleep, or sleeping too much: Not at all 4. Feeling tired or having little energy: Not at all 5. Poor appetite or overeating: Not at all 6. Feeling bad about yourself -- or that you are a failure or have let yourself or your family down: Not at all 7. Trouble concentrating on things, such as reading the newspaper or watching television: Not at all 8. Moving or speaking so slowly that other people could have noticed. Or the opposite - being so fidgety or restless that you have been moving around a lot more than usual: Not at all 9. Thoughts that you would be better off , or of hurting yourself in some way: Not at all How difficult have these problems made it for you to do your work, take care of things at home, or get along with other people?: Not difficult at all Total Score: 0 JUSTICE-Q SV Test - Statements CAD is a disease of the arteries in the heart: False Examples of risk factors for heart disease: True Angina is chest pain or discomfort: True The benefits of resistance training include: True Eating more meat and dairy products: False Anti-platelet medications such as aspirin are important: True The only effective way to manage stress: False An exercise warm-up slowly increases heart rate: True Prepared, processed foods usually have high sodium: True Depression is common after a heart attack: True The statin medications lower cholesterol: True To control blood pressure, lower the amount of sodium: True If someone gets chest discomfort during walking: False Transfats are partially hydrogenated vegetable oils: True Sleep apnea that is not treated increases the risk: False To control cholesterol, one should become a vegetarian: False Someone knows if he/she is exercising at the right level: True Diabetes cannot be prevented with exercise & health eating: False Stress is a large risk for heart attack: True A diet that can help lower blood pressure is rich in: True - Total Score Total Correct Responses: 20 Self-Efficacy Discharge Assessment We would like to know how confident you are in doing certain activities. Please select your confidence level for:: Select your confidence level for the following using the scale 1-10 where 1 is not at all confident and 10 is totally confident. Your score is the average of all 6 responses. Fatigue: How confident are you that you can keep the fatigue caused by your disease from interfering with the things you want to do? Select Number: 10 Physical Discomfort or Pain: How confident are you that you can keep the physical discomfort or pain of your disease from interfering with the things you want to do? Select Number: 10 Emotional Distress: How confident are you that you can keep the emotional distress caused by your disease from interfering with the things you want to do? Select Number: 10 Other Symptoms or Health Problems: How confident are you that you can keep other symptoms or health problems from interfering with the things you want to do? Select Number: 10 Different Tasks and Activities: How confident are you that you can do the different tasks and activities needed to manage your health condition so as to reduce your need to see a doctor? Select Number: 10 Medication: How confident are you that you can do things other than just taking medication to reduce how much your illness affects your everyday life? Select Number: 10 Total Score:: 10 Nutrition Survey - Nutrition Survey Instructions Scoring Instructions: Scoring is as follows: Yes = 1 points. No = 0 point. Patient score that is >/=12 is considered to be at potential nutritional risk and could benefit from a referral to a registered dietitian. - Nutrition Survey Discharge Have you lost >10 lbs over the past 2 months without trying?: No Are you following a special diet at home for diabetes, low fat, or low salt?: Yes Are you interested in meeting with a dietitian for help understanding your diet?: No Do you eat less than 3 meals a day?: No Do you eat fatty meats (garcia, sausage, ribs, etc), fried foods, desserts, large amounts of salad dressings, margarine, butter, or cheese most days?: No Do you have food allergies? [Enter types in comment field]: No Do you eat in restaurants more than 3 times a week?: No Do you season food with salt, seasoning salt, or garlic salt?: No Do you used canned, boxed, frozen meals, or soups, seasoning packets?: No Total Score:: 1
[2017-11-09 14:56] VITALS: BP 122/64; BP 184/84
== END 2017-11-16 23:59 ==
LOC: CR 13:00
PROVIDERS: Family Provider Internal Medicine; PCP Internal Medicine; Visit Provider Internal Medicine Cardiovascular Disease
DX: I21.4 Non-ST elevation (NSTEMI) myocardial infarction (principal); I25.10 Atherosclerotic heart disease of native coronary artery without angina pectoris; Z95.5 Presence of coronary angioplasty implant and graft
CPT/HCPCS: 93798

== ENCOUNTER → 2018-07-02 09:12 | Outpatient (CLI) | payer MEDICARE, SELFPAY ==
[2017-06-01 08:52] VITALS: BMI 24.1
[2018-01-18 11:09] VITALS: BMI 23.4
[2018-07-02 09:30] LABS: Mucous, Urine 0 SEEN /hpf (<or=2+); Red Blood Cells-Urine 0 SEEN /hpf (0-5)
[2018-07-02 10:59] LABS: Absolute Lymphocyte Count 1.36 X10^3/ul (0.83-4.51); Absolute Neutrophil Count 4.6 X10^3/uL (2.0-7.7); Basophil# 0.03 X10^3/uL; Basophil% 0.4 % (0-1); Eosinophil# 0.26 X10^3/uL; Eosinophils% 3.8 % (0-5); Hematocrit 37.3 % (37-47); Hemoglobin 12.6 g/dl (12.0-15.0); Lymphocyte # 1.36 X10^3/ul (4.0); Lymphocyte % 20.1 % (19-41); Mean Corp Hgb Conc 33.8 g/gl (32-36); Mean Corpuscular Hgb 31.3 pg (27.0-32.0); Mean Corpuscular Volume 92.8 fL (81-99); Mean Platelet Vol. 9.7 fl (6.2-12.0); Monocyte# 0.51 X10^3/uL; Monocyte% 7.5 % (0-10); Neutrophil # 4.59 X10^3/uL (2.7-7.7); Neutrophil % 68.1 % (47-70); Platelet Count 219 K/mm3 (150-450); RBC Distribution Width CV 12.1 % (11.6-14.6); RBC Distribution Width SD 40.1 fl (35.1-43.9); Red Blood Count 4.02 M/mm3 (4.2-5.4); White Blood Count 6.8 K/mm3 (4.4-11.0)
[2018-07-02 11:00] LABS: Color, Urine Yellow (Yellow); Glucose, Dipstick Normal (Normal); Ketone-Dipstick Negative (Negative); Leukocyte Esterase-Dipstick 500 /ul (Negative); Nitrite-Dipstick Positive (Negative); Occult Blood-Urine 10 /ul (Negative); Protein-Dipstick Negative (Negative); Urine Bilirubin Dipstick Negative (Negative); Urine Clarity Sl. Cloudy (Clear); Urine Urobilinogen Normal (Normal)
[2018-07-02 11:04] LABS: POSITIVE COUNT NO; POSITIVE DIFFERENTIAL NO; POSITIVE MORPHOLOGY NO
[2018-07-02 11:06] LABS: Bacteria 1+ /hpf (None Seen); Squamous Epithelial Cells - UA 0-5 SEEN /hpf (5-10); White Blood Cells >100 SEEN /hpf (0-5)
[2018-07-02 11:17] LABS: Microalbumin,Random Urine 20.9 mg/L (NO RANGE EST.); Microalbumin:Creatinine Ratio 21.5 mg/g CRE (<30 mg/g CRE)
[2018-07-02 11:33] LABS: ALB/GLOB Ratio 1.2 RATIO (0.9-2.4); AST(SGOT) 25 U/L (15-37); Alanine Aminotransfer ALT/SGPT 24 U/L (13-56); Albumin, Serum 3.9 g/dL (3.2-5.0); Alkaline Phosphatase 88 U/L (45-117); Anion Gap 3 (5-15); BUN 13 mg/dL (7-18); BUN/Creat Ratio 13.9 RATIO (10-20); Bilirubin, Direct 0.16 mg/dL (0.00-0.30); Calcium,Total 9.2 mg/dL (8.5-10.1); Chloride 107 mmol/L (98-107); Cholesterol 156 mg/dL (200); Creatinine, Serum 0.93 mg/dL (0.55-1.02); EST Glomerular Filtration Rate 61 mL/min (>60); Est Glom Filt Rate - Afr Amer 74 mL/min (>60); Free T3 2.2 pg/mL (2.18-3.98); Globulin 3.3 g/dL (2.2-4.2); Glucose 89 mg/dL (74-106); High Density Lipoprotein 61 mg/dL; Potassium 4.2 mmol/L (3.5-5.1); Protein, Total 7.2 g/dL (6.4-8.2); Sodium Level 138 mmol/L (136-145); T4 Free Direct 0.94 ng/dL (0.76-1.46); Thyroid Stim Hormone (TSH) 1.68 uIU/mL (0.358-3.74); Triglycerides 85 mg/dL; Very Low Density Lipoprotein 17 mg/dL (5-40)
[2018-07-04 12:08] LABS: CHOLESTEROL TOTAL 166 mg/dL (100-199); HDL-C 62 mg/dL (>39); HDL-P TOTAL 35.9 umol/L (>=30.5); SMALL LDL-P 383 nmol/L (<=527); TRIGLYCERIDES 92 mg/dL (0-149)
[2018-07-04 16:25] LABS: INSULIN RESISTANCE SCORE <25 (<=45); LDL SIZE 21.1 nm (>20.5); LDL-C 86 mg/dL (0-99); LDL-P 967 nmol/L (<1000)
== END ==
PROVIDERS: Family Provider Internal Medicine; PCP Internal Medicine; Referring Provider Nurse Practitioner Family; Visit Provider Nurse Practitioner Family
DX: E78.5 Hyperlipidemia, unspecified (principal); E03.9 Hypothyroidism, unspecified; I10 Essential (primary) hypertension
CPT/HCPCS: 80053; 80061; 81001; 82043; 82248; 82570; 83704; 84439; 84443; 84481; 85025

== ENCOUNTER → 2018-08-21 | Outpatient (CLI) | payer MEDICARE, SELFPAY ==
[2017-06-01 08:52] VITALS: BMI 24.1
[2018-07-23 10:37] VITALS: BMI 24.1
[2018-08-21 11:47] LABS: Absolute Lymphocyte Count 1.51 X10^3/ul (0.83-4.51); Absolute Neutrophil Count 4.7 X10^3/uL (2.0-7.7); Basophil# 0.04 X10^3/uL; Basophil% 0.6 % (0-1); Eosinophil# 0.18 X10^3/uL; Eosinophils% 2.6 % (0-5); Hematocrit 36.6 % (37-47); Hemoglobin 12.6 g/dl (12.0-15.0); Lymphocyte # 1.51 X10^3/ul (4.0); Mean Corp Hgb Conc 34.4 g/gl (32-36); Mean Corpuscular Hgb 31.3 pg (27.0-32.0); Mean Corpuscular Volume 90.8 fL (81-99); Mean Platelet Vol. 9.6 fl (6.2-12.0); Monocyte# 0.43 X10^3/uL; Monocyte% 6.3 % (0-10); Neutrophil # 4.68 X10^3/uL (2.7-7.7); Neutrophil % 68.4 % (47-70); Platelet Count 211 K/mm3 (150-450); RBC Distribution Width CV 11.8 % (11.6-14.6); RBC Distribution Width SD 38.2 fl (35.1-43.9); Red Blood Count 4.03 M/mm3 (4.2-5.4); White Blood Count 6.9 K/mm3 (4.4-11.0)
[2018-08-21 11:50] LABS: POSITIVE COUNT NO; POSITIVE DIFFERENTIAL NO; POSITIVE MORPHOLOGY NO
== END | disposition home or self-care (01) ==
LOC: LAB 11:09
PROVIDERS: Family Provider Internal Medicine; PCP Internal Medicine; Referring Provider Internal Medicine Pulmonary Disease; Visit Provider Internal Medicine Pulmonary Disease
DX: J44.9 Chronic obstructive pulmonary disease, unspecified (principal); I27.20 Pulmonary hypertension, unspecified
CPT/HCPCS: 36415; 85025

== ENCOUNTER → 2018-11-05 11:53 | Outpatient (CLI) | payer MEDICARE, SELFPAY ==
[2017-06-01 08:52] VITALS: BMI 24.1
[2018-07-23 10:37] VITALS: BMI 24.1
--- NOTE | 2018-11-05 11:55 | BI_ITS ---
MAMMOGRAPHY - BILATERAL SCREENING 3-D TOMOSYNTHESIS REASON FOR EXAM: Female, 83 years old. Bilateral Screening 3-D tomosynthesis PERTINENT HISTORY: Sister with breast cancer.. TECHNIQUE: 2-D mammograms and 3-D Tomosynthesis of the breast (s) were performed. CAD was performed. COMPARISON: 03/08/2017. FINDINGS: The breast composition is heterogeneously dense that can obscure small breast masses. Stable right pacemaker. Scattered benign calcifications are seen. No dense spiculated masses or suspicious microcalcifications are identified. No architectural distortion is identified. There is no skin thickening or retraction. There has been no significant change since the prior study. BI/SCREEN MAMM (CAD) W/GENEVIEVE BILAT IMPRESSION: No mammographic signs of malignancy. Routine yearly mammograms recommended. ASSESSMENT CATEGORY: BIRADS Category 2: Benign. A letter regarding these results will be sent to the patient by the facility within 30 days. FOLLOW UP RECOMMENDATION: Yearly follow up mammogram recommended. (A) Approximately 10% of breast cancers are not detected by mammography. A normal mammogram should not delay biopsy of a clinically suspicious abnormality. Electronically Signed: Darell Monte MD at 16:32 EDT Tel [phone], Service support ,
== END ==
PROVIDERS: Family Provider Internal Medicine; PCP Internal Medicine; Referring Provider Internal Medicine; Visit Provider Internal Medicine
DX: Z12.31 Encounter for screening mammogram for malignant neoplasm of breast (principal); Z80.3 Family history of malignant neoplasm of breast
CPT/HCPCS: 77063; 77067

== ENCOUNTER → 2019-01-21 11:25 | Outpatient (CLI) | payer MEDICARE, SELFPAY ==
[2017-06-01 08:52] VITALS: BMI 24.1
[2018-07-23 10:37] VITALS: BMI 24.1
== END ==
PROVIDERS: Family Provider Family Medicine; PCP Family Medicine; Referring Provider Family Medicine; Visit Provider Family Medicine
DX: R30.0 Dysuria (principal)
CPT/HCPCS: 87077; 87086; 87088; 87186

== ENCOUNTER 2019-02-18 11:30 | Outpatient (RCR) | payer MEDICARE, SELFPAY ==
[2017-06-01 08:52] VITALS: BMI 24.1
[2018-07-23 10:37] VITALS: BMI 24.1
--- NOTE | 2018-12-03 12:56 | HP.PTEVAL ---
Patient's Visit Information MICK CHINCHILLA is a 83 year old F referred to Physical Therapy by Jian Savage MD with a diagnosis of LUMBAGO W/SCIATICA AND THORACIC PAIN.. Date of Evaluation: 12/03/18 Physical Therapist: Harika Fraire PT, Cert MDT - Visit Plan Frequency: 2x /Week Duration: 4-6 Weeks Plan: *PACEMAKER*. PROGRESS ROM AND STRENGTHEING SLOW AND CAREFULLY*. POSTURE CORRECTION/STRENGTHENING, INSTRUCTION IN APPROPRIATE BODY MECHANICS AND ACTIVITY MODIFICATIONS. DLS STARTING WITH A NEUTRAL SPINE PROGRESSING ROM TOLERATED. ALLIE LE ROM, STRETCHING AND STRENGTHENING. HEP INSTRUCTION. - Subjective Findings: Work/Leisure: RETIRED. Disability: NO. Present symptoms: ALLIE GROIN PAIN DOWN TOP OF LEGS INTO KNEES AND INTO FEET AND TOES LEFT > RIGHT. NO LOW BACK PAIN. NO UPPER BACK PAIN. ALLIE FOOT NUMBNESS (FOREFOOT AND TOES). Present since: OCT 23 2018 (LONG HISTORY OF BACK PROBLEMS). Pain Scale: WORST 9/10, LEAST 6/10. Currently: 7/10. PATIENT REPORTS SHE IS GETTING WORSE AND IT IS SCARY. Commenced as a result of: NO APPARENT REASON. Symptoms at onset: RECTAL PAIN THEN GROIN PAIN. Worse: WALKING, GROCERY SHOPPING, MOWING, SITTING, GETTING IN/OUT OF CAR, LEG CRAMPS GETTING IN AND OUT OF BED, LIFTING. Better: LYING DOWN, [place]. Disturbed sleep: YES. Previous history/Previous treatment: PATIENT REPORTS EPISODE OF SEVERE CONSTIPATION THAT SHE SELF TREATED AND EVENTUALLY RESOLVED. SHE FEELS THIS IS WHAT STARTED HER GROIN AND LEG SX'S. BACK SURGERY [address] CHONG AT [facility]. PATIENT DESCRIBES HAVING A LUMBAR FUSION 2 YEARS AGO. PHYSICAL THERAPY HERE AT [facility] AFTER THE SURGERY. NO TREVOR'S. CHIRO TREATMENT A LONG LONG TIME AGO. HURT BACK IN FACTORY AND OFF FOR 3 MONTHS A LONG TIME AGO. LONG HISTORY OF BACK PAIN. Coughing/sneezing/straining: NO EFFECT. Gait: WEAK. ESPECIALLY LEFT LEG. TIME AND DISTANCE LIMITED. USING CANE IF NEEDED. Difficulty initiating urinatin: NO. Accidents: NO. NO FALLS. Unexplained weight loss: NO. Imaging: NONE RECENT THAT PATIENT CAN RE-CALL AND NO RECENT IMAGING FOUND IN [facility] EMR. PMH/Recent major surgery: ALLIE FOOT SURGERY. LEFT FOOT ABOUT A YEAR AGO. RIGHT FOOT ABOUT 10 YEARS AGO. GANGLION CYSTS REMOVED FROM FEET. REPORTS SHE WAS FINE AFTER HER FOOT SURGERIES. *PACEMAKER* HEART ATTACK 2017, HEART STENT, COPD, HTN, NOT DIABETIC. NO CANCER. NO STROKE. HISTORY OF DIZZINESS - GETS VERTIGO ATTACKS. PLOF (Prior Level of Function): USE TO WALK HER DOG 30 MINUTES TWICE A DAY. STATES SHE WAS DOING FINE UNTIL SHE CAME HOME FROM [place]. OTHER: PATIENT REPORTS SHE DELAYED STARTING PT UNTIL NOW (ORDERED 2 WEEKS AGO) DUE TO JUST HAVING EYE SURGERY. STATES SHE HAS TO CALL THE DOCTOR TODAY ABOUT AN ACID REFLUX PRESCRIPTION AND SHE IS GOING TO LET THEM KNOW SHE IS WORSENING. - Objective Sitting/Standing Posture: POOR INCREASED KYPHOSIS. DECREASED LORDOSIS. RIGHT ILIAC CREST HIGHER THAN LEFT. Active Correction of posture: NE. Other Observations: INDEP ANTALGIC GAIT INTO PT X APPROX 300 FEET. Motor deficit: ALLIE HIP AND KNEE WEAKNESS. ALLIE ANKLE DORSIFLEX AND EHL 5/5. ALLIE HIPS 4-/5, RIGHT KNEE 4/5, LEFT KNEE 4-/5. Sensory deficit: ALLIE LE LIGHT TOUCH SENSATION APPEARS TO BE INTACT AND SYMMETRICAL BUT TOES ARE TINGLY WITH LIGHT TOUCH. ROM deficit: PATIENT HAS TIGHT ALLIE HIP IR LEFT > RIGHT, TIGHT ALLIE HIP FLEXORS, TIGHT HS AND GASTROC-SOLEUS COMPLEX'S. LLE ROM TESTING PROVOKED LEFT THIGH CRAMPING THAT SUBSIDED QUICKLY. Reflexes: UNABLE TO ELICIT ALLIE LE DTR'S. Dural Signs: POSITIVE ALLIE LE'S. Lumbar mvmt loss: flex - MOD. ext - ANNEMARIE. R SG - ANNEMARIE. L SG - ANNEMARIE. PATIENT IS UNABLE TO STAND ERECT AND LEFT SG TESTING RESULTS IN C/O INCREASED LLE PAIN. Core strength: POOR. Palpation: NO ACUTE TENDERNESS WITH PALPATION OF THE THORACIC, LUMBAR, SACRAL, PELVIC OR HIP REGIONS. OTHER: LEFT HIP IR TESTING PROVOKES LEFT HIP/THIGH PAIN. RECOMMENDED PATIENT USE CANE IN RIGHT UE FOR SAFETY. PATIENT IS AGREEABLE. - Goals Goal 1:: DECREASE C/O ALLIE GROIN AND LE SX'S. Goal Time Frame: 4-6 Weeks Goal 2:: IMPROVE PERSONAL CARE, LIFTING, WALKING, STANDING, SITTING, SLEEP, SOCIAL LIFE, TRAVEL AND HOMEMAKING FUNCTION Goal Time Frame: 4-6 Weeks Goal 3:: INSTRUCT IN PROPHYLAXIS Goal Time Frame: 4-6 Weeks - Rehabilitation Potential Rehabilitation Potential: Fair - Anticipated Interventions Patient/Client Instruction: Educate patient on: Condition, Plan of Care, Risk Factors, Benefits of Fitness Program For the Purpose of:: To improve self management Therapeutic Exercise to Include: Strength training, Body mechanics, Postural training, Flexibilty training, Dynamic Lumbar Stabilization, Scapular Strength/Stabilization For the Purpose of:: To decrease pain, To improve muscle performance and motor function, To increase tolerance to activity/condition/position, To improve ability of physical actions for home/community/work/leisure, To improve gait and locomotor functions Cryotherapy (ice pack, ice massage): Yes Thermo therapy (hot pack): Yes Thank you for the opportunity to evaluate your patient. For Medicare and Medicare HMO plans, please review the plan of care and approve it. It will need to be FAXED BACK to us at [phone] for Medicare purposes. For Medicare only, by signing this I certify the plan of care. Please let me know if there are questions or concerns regarding this plan of care. Physician Signature: Date:
--- NOTE | 2019-01-20 12:38 | HP.PTREVAL_ITS ---
Jian Savage MD, It has been my pleasure to treat MICK CHINCHILLA over the last 8 visits for LUMBAGO W/SCIATICA AND THORACIC PAIN.. Please see the progress note below for an update on the physical therapy plan of care! Subjective: PATIENT REPORTS THAT THE NUMBNESS IN HER LEGS IS GONE BUT LAST SUNDAY NIGHT SHE WOKE UP WITH AN 8/[address] DOWN HER RIGHT LE AND IT TOOK HER ABOUT 5 MINUTES TO GET RID OF IT. SHE REPORTS THAT OVER-ALL HER LEG SX'S ARE A LOT BETTER THAN WHEN SHE STARTED PT BUT THERE ARE SOME EX'S SHE CAN'T DO VERY WELL. STATES SHE HAS A LOT OF DOCTORS SILVER'TS COMING UP AND WANTS TO CONTINUE PT IF THE DOCTORS ARE OK WITH IT. SHE REPORTS SHE LOVES SOME OF THE EX'S BUT SOME OF THEM SHE JUST CAN'T DO VERY WELL. PATIENT REPORTS SHE ONLY USES A CANE WHEN SHE WALKS HER DOG. PATIENT REPORTS SHE DOES NOT WANT TO USE CANE OTHERWISE. Objective/Function: PATIENT HAS MADE SOME PROGRESS TOWARD THE SET PT GOALS AND IS A GOOD CANDIDATE TO CONTINUE PT TOLERATED. UPON EXAM TODAY: INDEP ANTALGIC GAIT INTO PT X APPROX 300 FEET. Motor deficit: ALLIE HIP AND KNEE WEAKNESS. ALLIE ANKLE DORSIFLEX AND EHL 5/5. ALLIE HIPS 4-/5, RIGHT KNEE 4/5, LEFT KNEE 4-/5. Sensory deficit: ALLIE LE LIGHT TOUCH SENSATION APPEARS TO BE INTACT AND SYMMETRICAL BUT TOES ARE TINGLY WITH LIGHT TOUCH. ROM deficit: PATIENT HAS TIGHT ALLIE HIP IR LEFT > RIGHT, TIGHT ALLIE HIP FLEXORS, TIGHT HS AND GASTROC- SOLEUS COMPLEX'S. Dural Signs: NEGATIVE ALLIE LE'S. Lumbar mvmt loss: flex - MOD. ext - ANNEMARIE. R SG - ANNEMARIE. L SG - ANNEMARIE. PATIENT IS UNABLE TO STAND ERECT. LUMBAR ROM TESTING INCREASES LBP BUT DOES NOT PROVOKE LE SX'S TODAY. Core strength: POOR. Palpation: NO ACUTE TENDERNESS WITH PALPATION OF THE THORACIC, LUMBAR, SACRAL, PELVIC OR HIP REGIONS. OTHER: LEFT HIP IR TESTING PROVOKES LEFT HIP/THIGH PAIN. RECOMMENDED PATIENT USE CANE IN RIGHT UE FOR SAFETY. PATIENT IS RELUCTANT. Plan Plan: *PACEMAKER*. PROGRESS ROM AND STRENGTHEING SLOW AND CAREFULLY*. POSTURE CORRECTION/STRENGTHENING, INSTRUCTION IN APPROPRIATE BODY MECHANICS AND ACTIVITY MODIFICATIONS. DLS STARTING WITH A NEUTRAL SPINE PROGRESSING ROM TOLERATED. ALLIE LE ROM, STRETCHING AND STRENGTHENING. HEP INSTRUCTION. Goals Goal 1:: DECREASE C/O ALLIE GROIN AND LE SX'S. Goal Time Frame: 4-6 Weeks Goal Progress: Progressing Goal 2:: IMPROVE PERSONAL CARE, LIFTING, WALKING, STANDING, SITTING, SLEEP, SOCIAL LIFE, TRAVEL AND HOMEMAKING FUNCTION Goal Time Frame: 4-6 Weeks Goal Progress: Progressing Goal 3:: INSTRUCT IN PROPHYLAXIS Goal Time Frame: 4-6 Weeks Goal Progress: Progressing Anticipated Interventions Patient/Client Instruction: Educate patient on: Condition, Plan of Care, Risk Factors, Benefits of Fitness Program For the Purpose of:: To improve self management Therapeutic Exercise to Include: Strength training, Body mechanics, Postural training, Flexibilty training, Dynamic Lumbar Stabilization, Scapular Strength/Stabilization For the Purpose of:: To decrease pain, To improve muscle performance and motor function, To increase tolerance to activity/condition/position, To improve ability of physical actions for home/community/work/leisure, To improve gait and locomotor functions Cryotherapy (ice pack, ice massage): Yes Thermo therapy (hot pack): Yes Please do not hesitate to contact me at [phone] by phone or if you have questions or concerns regarding this new plan of care! Sincerely, Harika Fraire, PT, Cert MDT
--- NOTE | 2019-02-18 12:08 | HP.PTDCSUM ---
HP - PT D/C Summary It has been my pleasure to treat MICK CHINCHILLA under orders from Jian Savage MD, for the diagnosis of LUMBAGO W/SCIATICA AND THORACIC PAIN. for a total of 14 visit(s). Discharge Date: 02/18/19 Please see the following information for a summary of their discharge status. - Subjective Subjective: I'M DOING A LOT BETTER. I AM SLEEPING BETTER. LOTS BETTER AND GOING FURTHER WALKING THE DOG - I DON'T GET OUT OF BREATHE LIKE I DID. I DON'T HAVE THAT PAIN RUNNING DOWN MY LEGS LIKE I DID. PLANS TO DO SILVER SNEAKERS AND HEP NOW. 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 PAIN AND VERY TIRED AFTER. - Pain LOW BACK Pain Intensity (Out of 10): 0 r hip Pain Intensity (Out of 10): 5 bilat knees Pain Intensity (Out of 10): 0 hands Pain Intensity (Out of 10): 6 bilat feet Pain Intensity (Out of 10): 0 R Sh Pain Intensity (Out of 10): 6 - Overall Improvement % Improvement: 60 - Objective Objective/Function: PATIENT HAS MADE GREAT PROGRESS WITH PT. UPON EXAM TODAY: INDEP GAIT INTO AND OUT OF PT X APPROX 300 FEET WITH FAIR CADANCE AND NO LOB. Motor deficit: ALLIE LE STRENGTH 5/5 WITH MMT'ING EXCEPT HIPS 4/5. Sensory deficit: ALLIE LE LIGHT TOUCH SENSATION APPEARS TO BE INTACT AND SYMMETRICAL BUT TOES ARE TINGLY WITH LIGHT TOUCH. ROM deficit: PATIENT HAS TIGHT ALLIE HIP IR LEFT > RIGHT, TIGHT ALLIE HIP FLEXORS, TIGHT HS AND GASTROC-SOLEUS COMPLEX'S. Dural Signs: NEGATIVE ALLIE LE'S. Lumbar mvmt loss: flex - NIL. ext - ANNEMARIE. R SG - ANNEMARIE. L SG - ANNEMARIE. PATIENT IS UNABLE TO STAND ERECT. LUMBAR ROM TESTING DOES NOT INCREASE LBP TODAY. Core strength: POOR. Palpation: NO ACUTE TENDERNESS WITH PALPATION OF THE THORACIC, LUMBAR, SACRAL, PELVIC OR HIP REGIONS. OTHER: LEFT HIP IR TESTING NO LONGER PROVOKES LEFT HIP/THIGH PAIN. - Goals Goal 1:: DECREASE C/O ALLIE GROIN AND LE SX'S. Goal Progress: Goal Met Goal 2:: IMPROVE PERSONAL CARE, LIFTING, WALKING, STANDING, SITTING, SLEEP, SOCIAL LIFE, TRAVEL AND HOMEMAKING FUNCTION Goal Progress: Goal Met Goal 3:: INSTRUCT IN PROPHYLAXIS Goal Progress: Goal Met - Plan Plan: D/C. PATIENT AGREEABLE. - D/C Information If there are questions or concerns regarding this patient's physical therapy, please feel free to call me at [phone]. Thank you for the referral of this patient. Sincerely, Harika Fraire, PT, Cert MDT
== END 2019-02-18 19:00 | disposition home or self-care (01) ==
LOC: PT 11:30
PROVIDERS: Family Provider Family Medicine; PCP Family Medicine; Referring Provider Family Medicine; Visit Provider Family Medicine
DX: M54.40 Lumbago with sciatica, unspecified side (principal); M54.6 Pain in thoracic spine
CPT/HCPCS: 97110; 97162; 97530

== ENCOUNTER → 2019-02-25 10:47 | Outpatient (CLI) | payer MEDICARE, SELFPAY ==
[2017-06-01 08:52] VITALS: BMI 24.1
[2019-01-27 13:45] VITALS: BMI 24.1
--- NOTE | 2019-02-25 10:49 | ECHOD_ITS ---
Reason For Study: DYSPNEA Procedure This was a 2D Doppler, Color Flow transthoracic echocardiogram. Exam performed in department. Left Ventricle Normal LV size. Left ventricular systolic function is normal. The estimated ejection fraction is 65 %. No regional wall motion abnormalities noted. Right Ventricle Normal RV size. ICD or pacer leads identified within the right ventricle. Normal systolic function. Atria Normal left atrium. Normal right atrium. ICD or pacer leads identified within the right atrium. Mitral Valve Normal mitral valve. Mild (1+) eccentric mitral valve insufficiency. Tricuspid Valve Normal tricuspid valve. Mild (1+) tricuspid valve insufficiency. Pulmonary artery systolic pressure is 28 mmHg. Aortic Valve Normal aortic valve. Trisinus/trileaflet aortic valve. Pulmonic Valve Normal pulmonic valve. Great Vessels Normal aortic root. The pulmonary artery is normal size. Normal inferior vena cava. Pericardium/Pleural No pericardial effusion. MMode/2D Measurements & Calculations LVIDd: 4.5 cm IVSd: 0.66 cm Ao root diam: 2.7 cm LVIDs: 3.1 cm LVPWd: 0.81 cm RVDd: 3.0 cm FS: 31.7 % LAV(MOD-bp): 52.1 ml LVAd ap4: 25.7 cm2 SV(MOD-sp4): 43.8 ml LAV(MOD-bp) Indexed: 30.7 ml/m2 EDV(MOD-sp4): 74.1 ml LAV(MOD-sp2): 44.7 ml EDV(sp4-el): 75.7 ml LAV(MOD-sp4): 55.2 ml LVAs ap4: 14.5 cm2 ESV(MOD-sp4): 30.4 ml ESV(sp4-el): 30.7 ml EF(MOD-sp4): 59.1 % EF(sp4-el): 59.4 % SV(sp4-el): 45.0 ml LA A4 area: 19.5 cm2 LA dimension(2D): 4.3 cm RA A4 area: 13.5 cm2 Time Measurements MV dec time: 0.34 sec Doppler Measurements & Calculations MV E max james: 65.6 cm/sec Lat Peak E' James: 9.4 cm/sec Med Peak E' James: 5.6 cm/sec MV A max james: 64.2 cm/sec E/E' lat: 7.0 E/E' med: 11.7 MV E/A: 1.0 Ao V2 max: 134.6 cm/sec LV V1 max: 93.2 cm/sec TR max james: 245.9 cm/sec Ao max P.3 mmHg LV V1 max P.5 mmHg TR max P.3 mmHg Interpretation Summary Normal LV size. Left ventricular systolic function is normal. The estimated ejection fraction is 65 %. Mild (1+) tricuspid valve insufficiency. Pulmonary artery systolic pressure is 28 mmHg. Ordering Physician: Gosia King/Pako Abbasi Referring Physician: GOSIA MARRUFO Performed By: Rochelle Gutierrez, RDYSABEL, RVT
== END ==
PROVIDERS: Family Provider Family Medicine; PCP Internal Medicine; Referring Provider Nurse Practitioner Family; Visit Provider Nurse Practitioner Family
DX: R06.09 Other forms of dyspnea (principal); R06.02 Shortness of breath; I44.2 Atrioventricular block, complete; I25.10 Atherosclerotic heart disease of native coronary artery without angina pectoris; I10 Essential (primary) hypertension; R78.5 Finding of other psychotropic drug in blood; E78.5 Hyperlipidemia, unspecified; Z95.5 Presence of coronary angioplasty implant and graft
CPT/HCPCS: 93306

== ENCOUNTER → 2019-05-21 09:26 | Outpatient (CLI) | payer MEDICARE, SELFPAY ==
[2017-06-01 08:52] VITALS: BMI 24.1
[2019-01-27 13:45] VITALS: BMI 24.1
[2019-05-21 10:23] LABS: Anion Gap 7 (5-15); BUN 19 mg/dL (7-18); BUN/Creat Ratio 19.6 RATIO (10-20); Calcium,Total 8.9 mg/dL (8.5-10.1); Chloride 109 mmol/L (98-107); Cholesterol 179 mg/dL (200); Creatinine, Serum 0.97 mg/dL (0.55-1.02); EST Glomerular Filtration Rate 59 mL/min (>60); Est Glom Filt Rate - Afr Amer 71 mL/min (>60); Glucose 97 mg/dL (74-106); High Density Lipoprotein 61 mg/dL; Potassium 4.1 mmol/L (3.5-5.1); Sodium Level 138 mmol/L (136-145); Triglycerides 67 mg/dL; Very Low Density Lipoprotein 13 mg/dL (5-40)
== END ==
PROVIDERS: PCP Family Medicine; Referring Provider Family Medicine; Visit Provider Family Medicine
DX: I10 Essential (primary) hypertension (principal)
CPT/HCPCS: 36415; 80048; 80061

== ENCOUNTER → 2019-05-23 11:12 | Outpatient (CLI) | payer MEDICARE, SELFPAY ==
[2017-06-01 08:52] VITALS: BMI 24.1
[2019-01-27 13:45] VITALS: BMI 24.1
--- NOTE | 2019-05-23 11:16 | RAD_ITS ---
HISTORY: HISTORY: left hand pain XR Hand Min 3 Views COMPARISON: None FINDINGS: # of images incl. paperwork: 3 3 views of the left hand. Osteoarthritis is present. This is manifested in the carpal bones is subcortical cystic degenerative change with mild sclerosis. Within the interphalangeal joints there is a slight gullwing deformity of bony remodeling and joint space loss. Within the first carpometacarpal joint there is some sclerosis and lateral subluxation of the first metacarpal on the trapezium. No fractures are perceived. No foreign bodies are demonstrated. RAD/Hand Min 3 Views IMPRESSION: Wrist, and digit changes most consistent with osteoarthritis at 0607 Reported and signed by: Carrillo Carson MD Electronically Signed: Carrillo Carson MD at 6:06 EST Tel , Service support ,
== END ==
PROVIDERS: PCP Family Medicine; Referring Provider Family Medicine; Visit Provider Family Medicine
DX: M79.642 Pain in left hand (principal)
CPT/HCPCS: 73130

== ENCOUNTER → 2019-07-25 10:51 | Outpatient (CLI) | payer MEDICARE, SELFPAY ==
[2017-06-01 08:52] VITALS: BMI 24.1
[2019-01-27 13:45] VITALS: BMI 24.1
--- NOTE | 2019-07-25 10:53 | RAD_ITS ---
STUDY: X-RAY CHEST REASON FOR EXAM: Female, 84 years old. Asthma exacerbation -- weakness, sob, some chest pain -- joint pain TECHNIQUE: PA and lateral views of the chest. COMPARISON: Comparison is made with prior examination of May 30, 2017. FINDINGS: Hyperinflation. Scattered calcified granulomas. There is no demonstrated pleural abnormality. Normal size heart. A right-sided dual-chamber pacemaker is seen. Normal mediastinum and nida. There is prominence of the pulmonary hilar arteries without peripheral pulmonary vascular congestion, suggesting pulmonary hypertension. There is atherosclerotic calcification of the aortic arch with tortuosity. There are diffuse degenerative changes of the visualized thoracic spine. Normal visualized ribs, clavicles, and shoulders. Prior fusion of the lumbar spine. RAD/Chest PA and Lateral IMPRESSION: Hyperinflation. Scattered calcified granulomas. The lungs are clear. Electronically Signed: Grabiel Gallagher, at 12:09 EDT , Service support ,
== END ==
PROVIDERS: PCP Family Medicine; Referring Provider Family Medicine; Visit Provider Family Medicine
DX: J45.901 Unspecified asthma with (acute) exacerbation (principal)
CPT/HCPCS: 71046

== ENCOUNTER 2019-08-17 12:39 | Emergency (ER) | payer MEDICARE, SELFPAY ==
[2017-06-01 08:52] VITALS: BMI 24.1
[2019-01-27 13:45] VITALS: BMI 24.1
[2019-08-17 12:40] VITALS: BP 132/82; PULSE 91; RESP 18; TEMP 36.1; O2SAT 100; BMI 23.1
--- NOTE | 2019-08-17 13:06 | EKG12_ITS ---
Test Reason : WEAKNESS Blood Pressure : / mmHG Vent. Rate : 080 BPM Atrial Rate : 080 BPM P-R Int : 172 ms QRS Dur : 104 ms QT Int : 412 ms P-R-T Axes : 047 -34 039 degrees QTc Int : 475 ms Normal sinus rhythm Left axis deviation Incomplete right bundle branch block Abnormal ECG Confirmed by CONCHIS ALCALA, SUREKHA ([id number]), editor magazine CASSANDRA MARIN ([id number]) on 08/19/2019 1:41:08 PM Referred By: BB Confirmed By:SUREKHA BALDERRAMA MD
--- NOTE | 2019-08-17 13:08 | CT_ITS ---
STUDY: CTA HEAD AND NECK WITH CONTRAST REASON FOR EXAM: Female, 84 years old. Dizziness and intermittent vision loss x several weeks, elevated D-dimer, cough, SOB. RADIATION DOSAGE (If Supplied By Facility): CTDIvol = ( 18.82 ) mGy, DLP = ( 1719.71 ) mGycm TECHNIQUE: CT angiography was performed with a multi-detector CT scanner. Data acquisition was obtained from the skull base through the vertex following intravenous administration of 100mL [id number]. MIP images were reconstructed from the axial data set. Post-processing of the angiographic images was performed, with multiplanar reformation and 3D reconstruction. Individualized dose optimization techniques were used for this CT. COMPARISON: No relevant priors. FINDINGS: Normal bilateral petrous carotid arteries. Normal right cavernous carotid artery with a normal supraclinoid bifurcation. Normal left cavernous carotid artery with a normal supraclinoid bifurcation. There is hypoplastic development of the right A1 segment of the anterior cerebral arteries with an atretic but intact artery. Normal left A1 segments of the anterior cerebral artery. Normal intact anterior communicating artery (ACOM). Normal bilateral A2 segments of the anterior cerebral arteries. Normal right M1 and M2 segments of the middle cerebral arteries, with a normal M1 bifurcation. Normal left M1 and M2 segments of the middle cerebral arteries, with a normal M1 bifurcation. There is non-visualization of the right posterior communicating artery (PCOM). There is non-visualization of the left posterior communicating artery (PCOM). Normal bilateral vertebral arteries. Normal basilar artery with a normal basilar bifurcation. The visualized bilateral superior cerebellar (SCA) arteries are normal. Normal bilateral P1, P2 and visualized P3 segments of the posterior cerebral arteries. There is no demonstrated aneurysm of the [place]. Bilateral lens replacements. AORTIC ARCH: Normal visualized aortic arch. Normal origins of the brachiocephalic, left common carotid, and left subclavian arteries. RIGHT CAROTID ARTERIES: Normal right common carotid artery (CCA). Heavy eccentric mixed soft and calcified bulb plaque with associated 50% proximal ICA stenosis. Residual lumen diameter is 2.5 mm with a poststenotic diameter of 5 mm. Normal visualized cervical portion of the right internal carotid artery. Normal origin of the right external carotid artery (ECA). LEFT CAROTID ARTERIES: Normal left common carotid artery (CCA). Heavy concentric calcified bulb plaque with an associated 60% proximal ICA stenosis. Residual lumen diameter is 2 mm with a poststenotic diameter 5 mm.. Normal visualized cervical portion of the left internal carotid artery. Normal origin of the left external carotid artery (ECA). VERTEBRAL ARTERIES: Normal bilateral vertebral arteries. Pulmonary emphysema. Scarring in the right upper lobe. CT/CTA Head AND Neck W/ Contrast IMPRESSION: No CTA evidence of significant intracranial arterial pathology. 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 50% stenosis of the proximal right ICA in the neck. NASCET criteria was used. Electronically Signed: Kaushik Ha MD at 15:05 EDT Tel , Service support ,
--- NOTE | 2019-08-17 13:12 | ED.DCSUM_ITS ---
History of Present Illness Chief Complaint: Dizziness Informant: Patient Onset: Weeks - 3 Context: Sudden Onset Timing: Intermittent, Lasts - mins Quality and Location: Right Leg Weakness, Left Leg Weakness - worse than right when it happens, - - feels like I'm going to pass out when dizzy Onset: when stands up, especially in AMs when gets out of bed Current Severity: Gone - since lying down Maximum Severity: Severe Worsened by: standing up Relieved by: lying down Associated Symptoms: Nausea - sometimes a little, Chest Pain - sore left of sternum, worse w/ breathing, coughing, and palpation; not at all like the heart pain I had in the past. Negative for: Headache, Vomiting Narrative: Patient presents with dizziness. She states he feels like she is going to pass out and is worse when she stands, better when she is lying down. Feels it worst in the mornings when she gets out of bed. She states she had vertigo in the past, and this is different. Her doctor put her on meclizine for this, and it is not helping consistent with that. She states this is been going on for 3 weeks. She has lost her vision twice, where she basically states her vision went black globally, and she states that both times, she felt very close to passing out. She is also had multiple episodes of basically blurry vision, like it is fading, also occurring when she feels this dizziness. She denotes no lateralizing vision changes such as a visual field cut or changes in just one eye or the other. She has had upper respiratory symptoms for 3 months since May 20, 2019. She talked to her doctor about this and was basically on quarantine for 2 weeks since this was in the middle of the national coronavirus emergency declaration. She was never tested for coronavirus. She said she had a neighbor bring her groceries and she was the only 1 allowed in her home. She lives alone. She states in the last 3 weeks or so, when she stands up and feels dizzy, she feels like her legs are extremely weak and ready to give out on her, and furthermore notices that the weakness is worse in her left leg, and when asked about her arms, she feels some weakness occasionally in her right arm. She denies any facial drooping, trouble speaking or understanding others, or numbness anywhere. She also states she has had chronic pain issues in her right shoulder that go up into her right neck anteriorly. She thinks possibly the weakness in her right arm may be related to the pain that she has had in her right shoulder, which she has been told is related to her rotator cuff possibly being torn. She has had some ringing in both of her ears off and on. She denies any earache or discharge. She denies any fevers except she felt like she had one overnight last night. She is still coughing. Is nonproductive. She also has dyspnea with exertion only, and states it does not feel like her asthma or wheezing. She does not have dyspnea at rest. She does not have leg swelling or calf pain or history of blood clots/DVT/PE. He has been on no a nticoagulants, she has been compliant with her clopidogrel. No history of strokes or TIAs. She states that she has called 911 for this before and had a EMS/paramedics come to her house they did an EKG and they said it looked okay, but she refused to go to the hospital. She also had the vision loss and near syncopal episode when her daughter or granddaughter was there, they helped her inside, she refused to go to the hospital. She states that no way I was going to risk getting the COVID-19 by going to the hospital for any of this. Prior similar symptoms: No Recent Illness/Hospitalization: No - no hospitalization Past Medical History - Allergies and Home Meds Allergies/Adverse Reactions: Allergies metformin Allergy (Verified 08/17/19 12:56) Unknown Penicillins [PCN] Allergy (Verified 08/17/19 12:56) Unknown atorvastatin Adverse Reaction (Severe, Verified 08/17/19 12:56) elevated liver enzymes Primary Care Physician: Jian Savage MD [Primary Care Provider] - Doctors: Elroy - nate Surgical History: angioplasty - cardiac stent, pacemaker implantation - x2 Smoking Status: Former smoker - Family History Maternal Family History: Family History (Last Reviewed 01/27/19 @ 13:42 by Dori Veras) Father Cancer Heart disease Mother CVA (cerebral vascular accident) Hypertension Sister Hypertension Cancer Son Diabetes Hypertension Myocardial infarction, Onset Age: 48 Family History: Reports: No pertinent history Paternal Family History: Family History (Last Reviewed 01/27/19 @ 13:42 by Dori Veras) Father Cancer Heart disease Mother CVA (cerebral vascular accident) Hypertension Sister Hypertension Cancer Son Diabetes Hypertension Myocardial infarction, Onset Age: 48 Family History: Reports: No pertinent history Review of Systems General: Reports: Fever, Subjective. Denies: Chills, Sweats Eyes: Reports: Visual changes - bilaterally - see HPI., - - no eye pain, discharge, redness. Denies: Diplopia ENT: Reports: - - intermittent tinnitus. Denies: Bilateral ear pain, Rhinorrhea, Sore throat Cardiovascular: Reports: Chest pain. Denies: Palpitations Respiratory: Reports: Cough, Dyspnea on exertion. Denies: Dyspnea, Sputum, Orthopnea Gastrointestinal: Reports: Nausea - not now. Denies: Abdominal pain, Vomiting, Diarrhea, Melena, Hematochezia Genitourinary: Denies: Dysuria, Hematuria, Frequency Musculoskeletal: Reports: Neck pain - right anterior, Extremity Pain - R shoulder. Denies: Myalgias, Back pain, Swelling Skin: Denies: Rash, Abscess, Wounds Neurological: Reports: Weakness - see HPI, - - dizziness. Denies: Headache, Numbness STROKE Vital Signs/Narrative: Vital Signs Temp Pulse Resp BP Pulse Ox 08/17/19 12:40 97.0 F L 91 18 132/82 H 100 Inital Vital Signs reviewed: Yes - NIHSS Initial 1a Level of Consciousness: 0 1b LOC Questions (Score 2 if aphasic/stupor): 0 1c LOC Commands (Only score 1st attempt): 0 2 Best Gaze (If aphasic, use reflexive mvmts.): 0 3 Visual: 0 4 Facial Palsy: 0 5 Motor Arm Right (UN = amputation/fusion): 0 5 Motor Arm Left: 0 6 Motor Leg Right: 0 6 Motor Leg Left: 0 7 Limb ataxia (Only + if out of proportion): 0 8 Sensory (Aphasia/stupor=0 or 1, coma=2): 0 9 Best Language: 0 10 Dysarthria (mute, coma=2, intubated=UN): 0 11 Extinction and Inattention (only scored if +): 0 Total Score: 0 General: Well nourished, Well developed, - - Well-appearing, NAD Head: Normocephalic, Atraumatic Eyes: Perrl, EOMI, - - Normal fatigable horizontal nystagmus. No abnormal non- fatigable. No vertical or rotatory nystagmus. ENT: Moist mucous membranes, No rhinorrhea, TM's clear, - - Posterior oropharynx clear. No facial/cranial venous distention noted or flushing.. Negative for: Sinus tenderness Neck: Supple, No lymphadenopathy, - - Tender right anterolateral neck soft tissues, no palpable mass and no skin lesions. Cardiovascular: Regular rate, Regular rhythm, No murmurs Respiratory: No distress, CTA bilaterally, Chest tenderness - Just left of sternum, where patient is having pain, which reproduces it. No crepitance, signs of trauma, rash. Abdomen: Soft, Nontender, Nondistended, Normal bowel sounds Back: Nontender, Normal Inspection. Negative for: CVA tenderness Extremities: Nontender, No edema. Negative for: Calf Tenderness Skin: Normal color, No rash, No Trauma Neurological: Alert, Oriented x3, Cranial nerves II-XII grossly intact, Normal Strength, Normal Sensation, Normal Gait, - - Negative Madhuri-Hallpike bilaterally Psychological: Normal affect, Normal Mood Diagnostic/Tx/Re-eval Impressions Head/Neck CTA 08/17/19 13:08 IMPRESSION: No CTA evidence of significant intracranial arterial pathology. 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 50% stenosis of the proximal right ICA in the neck. NASCET criteria was used. Electronically Signed: Kaushik Ha MD at 15:05 EDT Tel , Service support , Chest X-Ray 08/17/19 13:35 IMPRESSION: No acute pulmonary findings. Electronically Signed: Kaushik Ha MD at 14:08 EDT Tel , Service support , Chest CTA 08/17/19 13:40 IMPRESSION: A small nonocclusive embolus is present in a right lower lobe arterial branch. Electronically Signed: Kaushik Ha MD at 14:53 EDT Tel , Service support , ADDENDUM: 08/17/19 1507 IMPRESSION: A small nonocclusive embolus is present in a right lower lobe arterial branch. N.B. : The above information has been verbally conveyed by Kaushik Ha MD to Leonard Don MD, , on 08/17/2019 15:00:48 (ET). Electronically Signed: Kaushik Ha MD at 14:53 EDT Tel , Service support , 08/17/19 13:08 CTA Head AND Neck W/ Contrast [CT] Stat 08/17/19 13:35 Chest 1 View [RAD] Stat 08/17/19 13:40 CTA Chest W/WO Contrast [CT] Stat Laboratory Results 08/17/19 08/17/19 08/17/19 13:16 13:16 13:16 WBC 7.7 RBC 3.94 L Hgb 12.3 Hct 37.4 MCV 94.9 MCH 31.2 MCHC 32.9 RDW Std Deviation 41.7 RDW Coeff of Guy 12.0 Plt Count 292 MPV 9.2 Immature Gran % (Auto) 0.100 Neut % (Auto) 79.8 H Lymph % (Auto) 13.9 L [place] % (Auto) 5.4 Eos % (Auto) 0.4 Baso % (Auto) 0.4 Absolute Neuts (auto) 6.2 Absolute Lymphs (auto) 1.07 Nucleated RBC % 0 PT 14.1 INR 1.1 APTT 35.8 D-Dimer Quant (PE/DVT) 1.75 H* Sodium 137 Potassium 5.0 Chloride 104 Carbon Dioxide 26.0 Anion Gap 7 BUN 18 Creatinine 1.00 Estim Creat Clear Calc 39.03 Est GFR (MDRD) Af Amer 68 Est GFR (MDRD) Non-Af 56 L BUN/Creatinine Ratio 18.0 Glucose 120 H Calcium 9.3 Troponin I < 0.015 - Rhythm Strip Rhythm Strip: Sinus Rhythm Rate: 80 Ectopy: None - EKG Initial EKG Interpretation: Sinus Rhythm, No Acute Injury Pattern, RBBB - incomplete, LAFB Prior: Unchanged - Medical Decision Making Stroke Team Activated: No - timing Patient presenting with multiple symptoms, some of which are ambiguous and nonspecific. Therefore we started with a d-dimer and a metabolic work-up with EKG, which is unchanged compared with her prior showing an incomplete bifascicular block, and a chest x-ray which is unremarkable similar to the one she states she had a couple weeks ago. Her d-dimer was elevated, so CT angiography of the chest was performed along with CT angiography of the head and neck. Findings include a single nonobstructive pulmonary embolism in the right lung, in addition to bilateral carotid stenosis. Brain is unremarkable and no LVO. Given that she has had the symptoms for 3 weeks I do not think she needs to be admitted to consider a central stroke along with negative imaging. She is fairly sharp mentally, and provides a history suggesting that this is not vertigo, or central vertigo. It sounds more like recurrent near syncope, and and episodes where she has come very close to losing consciousness, she has had blackout of her vision. She has had no focal neurologic-sounding visual field symptoms. I discussed with Dr. Johnson, he agrees with placing her on apixaban and having her discontinue aspirin and Plavix. He agrees that from a cardiac standpoint admission would not be necessary, but he would like to put her on an event monitor. On Sunday, I can have respiratory place a Holter but not an event monitor, so he said that would work, we will do a 48-hour and she already has her six-month appointment with cardiology 48 hours from now. She is comfortable with this plan, however, respiratory has no available Holter monitors or event monitors to place on her at this time. I feel it will be best for her to wait until her appointment which is only in 48 hours, to receive 1 then. ED Disposition - Plan for ED Patient: Disposition: Home or Assisted Living Diagnosis: Pulmonary embolism, Near syncope, Cough, Carotid stenosis, bilateral Instructions: ED Near-Fainting Uncertain Cause, Pulmonary Embolism Prescriptions: Apixaban [Eliquis] 10 mg PO BID 30 Days #74 tab.ds.pk Transmission Status: Pending to [facility]/pharmacy #[id number] Referrals: Jian Savage MD [Primary Care Provider] - Pako Abbasi MD [STAFF PHYSICIAN] - Keep Caryl appointment (on Sunday) Additional Instructions: Discontinue your aspirin and clopidogrel and start the new prescription instead.
[2019-08-17] MEDS: 0.9% Normal Saline 1,000 ML 999 ML IV (13:22)
[2019-08-17 13:24] LABS: Absolute Lymphocyte Count 1.07 X10^3/uL (0.83-4.51); Absolute Neutrophil Count 6.2 X10^3/uL (2.0-7.7); Basophil# 0.03 X10^3/uL; Basophil% 0.4 % (0-1); Eosinophil# 0.03 X10^3/uL; Eosinophils% 0.4 % (0-5); Hematocrit 37.4 % (37-47); Hemoglobin 12.3 g/dL (12.0-15.0); Lymphocyte # 1.07 X10^3/ul (4.0); Lymphocyte % 13.9 % (19-41); Mean Corp Hgb Conc 32.9 g/dL (32-36); Mean Corpuscular Hgb 31.2 pg (27.0-32.0); Mean Corpuscular Volume 94.9 fL (81-99); Mean Platelet Vol. 9.2 fl (6.2-12.0); Monocyte# 0.42 X10^3/uL; Monocyte% 5.4 % (0-10); NRBC Flagged by Analyzer 0 % (0-5); Neutrophil # 6.16 X10^3/uL (2.7-7.7); Neutrophil % 79.8 % (47-70); Platelet Count 292 K/mm3 (150-450); RBC Distribution Width SD 41.7 fl (35.1-43.9); Red Blood Count 3.94 M/mm3 (4.2-5.4); White Blood Count 7.7 K/mm3 (4.4-11.0)
[2019-08-17 13:33] LABS: International Normalized Ratio 1.1; Prothrombin Time (Protime)PT. 14.1 SECONDS (11.7-14.9)
[2019-08-17 13:35] LABS: Partial Thromboplast Time 35.8 Seconds (24.1-36.2)
--- NOTE | 2019-08-17 13:35 | RAD_ITS ---
STUDY: X-RAY CHEST REASON FOR EXAM: Female, 84 years old. SOB, COUGH TECHNIQUE: Single frontal view of the chest. COMPARISON: 07/25/2019 FINDINGS: Dual-chamber pacemaker on the right. The lungs are clear and expanded. There is no demonstrated pleural abnormality. Normal size heart. Normal mediastinum and nida. Normal visualized pulmonary arteries. Normal visualized aortic arch and descending thoracic aorta. Normal visualized thoracic spine. Normal visualized ribs, clavicles, and shoulders. There is no demonstrated abnormality of the visualized soft tissue structures of the upper abdomen. RAD/Chest 1 View IMPRESSION: No acute pulmonary findings. Electronically Signed: Kaushik Ha MD at 14:08 EDT Tel , Service support ,
[2019-08-17 13:40] VITALS: BP 128/84; PULSE 80; RESP 16; O2SAT 97
--- NOTE | 2019-08-17 13:40 | CT_ITS ---
We are attempting to reach an attending provider to discuss findings. An addendum with communication details will be sent when the communication is complete. STUDY: CTA CHEST REASON FOR EXAM: Female, 84 years old. Dizziness and intermittent vision loss x several weeks, elevated D-dimer, cough, SOB. RADIATION DOSAGE (If Supplied By Facility): CTDIvol = ( 18.82 ) mGy, DLP = ( 1719.71 ) mGycm TECHNIQUE: The examination was performed with the intravenous administration of 100mL [id number]. Post-processing of the angiographic images was performed, with multiplanar reformation and 3D reconstruction. Individualized dose optimization techniques were used for this CT. COMPARISON: None. FINDINGS: Pacemaker on the right. A small nonocclusive embolus is present in a right lower lobe arterial branch, best seen on image 90 of series 3. Normal thoracic aorta and visualized great vessels. There is no demonstrated aortic dissection. Normal heart and pericardium. Normal mediastinum. Normal hilar regions. Normal visualized trachea and bronchi. Pulmonary emphysema. Calcified pulmonary granulomata. Normal pleura. Normal chest wall structures. Normal osseous structures. Normal visualized upper abdomen. CT/CTA Chest W/WO Contrast IMPRESSION: A small nonocclusive embolus is present in a right lower lobe arterial branch. Electronically Signed: Kaushik Ha MD at 14:53 EDT Tel , Service support ,
[2019-08-17 13:41] LABS: D-Dimer Quantitative (DVT/PE) 1.75 FEU/ug/m (0.27-0.49)
[2019-08-17 13:44] LABS: Anion Gap 7 (5-15); BUN 18 mg/dL (7-18); Calcium,Total 9.3 mg/dL (8.5-10.1); Chloride 104 mmol/L (98-107); EST Glomerular Filtration Rate 56 mL/min (>60); Est Glom Filt Rate - Afr Amer 68 mL/min (>60); Estimated Creatinine Clearance 39.03 ml/min; Glucose 120 mg/dL (74-106); Sodium Level 137 mmol/L (136-145)
[2019-08-17 14:26] VITALS: BP 145/76; BP 145/78; BP 154/80; PULSE 79; PULSE 88; PULSE 89
[2019-08-17 14:31] VITALS: BP 154/80; PULSE 85; RESP 16; O2SAT 100
[2019-08-17 15:16] VITALS: BP 138/77; PULSE 84; RESP 16; O2SAT 99
[2019-08-17 15:47] VITALS: BP 139/67; PULSE 69; RESP 16; O2SAT 100
== END 2019-08-17 16:35 | disposition home or self-care (01) ==
PROVIDERS: Emergency Provider Emergency Medicine; PCP Family Medicine
DX: I65.23 Occlusion and stenosis of bilateral carotid arteries (principal); I26.99 Other pulmonary embolism without acute cor pulmonale; R05 Cough; G89.29 Other chronic pain; Z82.3 Family history of stroke; Z82.49 Family history of ischemic heart disease and other diseases of the circulatory system; Z87.891 Personal history of nicotine dependence; Z88.0 Allergy status to penicillin; Z95.0 Presence of cardiac pacemaker; Z95.5 Presence of coronary angioplasty implant and graft
CPT/HCPCS: 70496; 70498; 71045; 71275; 80048; 84484; 85025; 85379; 85610; 85730; 93005; 96360; 99285; Q9967; A4216

== ENCOUNTER → 2019-09-03 07:35 | Outpatient (CLI) | payer MEDICARE, SELFPAY ==
[2017-06-01 08:52] VITALS: BMI 24.1
[2019-08-19 11:35] VITALS: BMI 23.1
--- NOTE | 2019-09-03 08:17 | VDLE_ITS ---
Reason For Study: Edema RIGHT LEFT GSV is normal. GSV is normal. CFV is compressible, spontaneous, phasic, CFV is compressible, spontaneous, phasic, competent and demonstrates normal competent, and demonstrates normal augmentation. augmentation. FV is compressible, spontaneous, phasic, FV is compressible, spontaneous, phasic, competent and demonstrates normal competent and demonstrates normal augmentation. augmentation. POP V is compressible, spontaneous, phasic, POP V is compressible, spontaneous, phasic, competent and demonstrates normal competent and demonstrates normal augmentation. augmentation. T/P Trunk is compressible. T/P Trunk is compressible. PTV is compressible. PTV is compressible. RT PerV is compressible. LT PerV is compressible. Right SSV is compressible. Left SSV is partially compressible with Procedure bright intraluminal echoes noted consistent Exam performed in department. with chronic DVT. A preliminary report was called and/or faxed to [facility]. Interpretation Summary Deep veins of the lower extremities are bilaterally patent and compressible segmentally. There is no evidence of deep vein thrombosis on either side. Valvular competence appears intact within the proximal deep venous systems bilaterally. The great saphenous veins appear bilaterally patent and compressible segmentally. The right small saphenous vein is patent and compressible. Chronic venous changes are noted in the left small saphenous vein, which is partially compressible and demonstrates bright intraluminal echogenicity. Ordering Physician: Oumar Palmer Referring Physician: Jian Savage Performed By: Claire Galeano RVT
== END ==
LOC: MTDU 07:35 → CVS 07:38
PROVIDERS: PCP Family Medicine; Referring Provider Internal Medicine Pulmonary Disease; Visit Provider Internal Medicine Pulmonary Disease
DX: R60.0 Localized edema (principal); R05 Cough; R06.00 Dyspnea, unspecified; I26.99 Other pulmonary embolism without acute cor pulmonale
CPT/HCPCS: 87635; 93970; G2023; U0003

== ENCOUNTER → 2019-10-21 10:54 | Outpatient (CLI) | payer MEDICARE, SELFPAY ==
[2017-06-01 08:52] VITALS: BMI 24.1
[2019-08-19 11:35] VITALS: BMI 23.1
--- NOTE | 2019-10-21 10:57 | RAD_ITS ---
STUDY: X-RAY - RIGHT SHOULDER REASON FOR EXAM: Female, 84 years old. patient''s shoulder locked up on her about 1 week ago, pain ever since TECHNIQUE: 4 view(s) of the shoulder. COMPARISON: None. FINDINGS: There is mild degenerative arthrosis of the glenohumeral articulation. There is degenerative arthrosis of the acromioclavicular joint without inferior osseous spur formation. Normal acromion. Normal humeral head and visualized proximal humerus. The soft tissue structures are unremarkable. There is no demonstrated fracture. Normal visualized pulmonary apex. RAD/Shoulder min 2 Views IMPRESSION: Degenerative changes. No acute abnormalities. Electronically Signed: Steven Alcantara MD at 23:14 EDT , Service support ,
== END ==
PROVIDERS: PCP Family Medicine; Referring Provider Family Medicine; Visit Provider Family Medicine
DX: S49.91XA Unspecified injury of right shoulder and upper arm, initial encounter (principal)
CPT/HCPCS: 73030

== ENCOUNTER → 2019-11-17 15:41 | Outpatient (CLI) | payer MEDICARE, SELFPAY ==
[2017-06-01 08:52] VITALS: BMI 24.1
[2019-08-19 11:35] VITALS: BMI 23.1
[2019-11-17 18:30] LABS: Vitamin B12 381 pg/mL (211-911)
[2019-11-17 18:31] LABS: Anion Gap 5 (5-15); BUN 14 mg/dL (7-18); Calcium,Total 9.2 mg/dL (8.5-10.1); Chloride 101 mmol/L (98-107); Creatinine, Serum 0.94 mg/dL (0.55-1.02); EST Glomerular Filtration Rate 61 mL/min (>60); Est Glom Filt Rate - Afr Amer 74 mL/min (>60); Glucose 93 mg/dL (74-106); Magnesium 1.9 mg/dL (1.6-2.6); Potassium 4.5 mmol/L (3.5-5.1); Sodium Level 133 mmol/L (136-145)
== END ==
PROVIDERS: PCP Family Medicine; Referring Provider Family Medicine; Visit Provider Family Medicine
DX: R25.2 Cramp and spasm (principal); R20.0 Anesthesia of skin
CPT/HCPCS: 36415; 80048; 82607; 83735

== ENCOUNTER → 2019-11-19 12:18 | Outpatient (CLI) | payer MEDICARE, SELFPAY ==
[2017-06-01 08:52] VITALS: BMI 24.1
[2019-08-19 11:35] VITALS: BMI 23.1
--- NOTE | 2019-11-19 12:21 | BI_ITS ---
MAMMOGRAPHY - BILATERAL SCREENING REASON FOR EXAM: Female, 84 years old. Routine annual screening examination. PERTINENT HISTORY: Sister with breast cancer. Remote left excisional breast biopsy. TECHNIQUE: Digital bilateral breast genevieve (3D mammographic acquisition) in the CC and MLO projections. 2-D mediolateral oblique (MLO) and craniocaudad (CC) views of both breasts were obtained. CAD: Full Field Digital Mammography with Computer Added Detection was performed. COMPARISON: Comparison is made with prior examination in 11/05/2018 and 03/08/2017. FINDINGS: Breast Composition: The breasts are heterogeneously dense, which may obscure small masses. There are no dominant masses or suspicious calcifications. A battery pack from a right-sided pacemaker is seen in the axillary region of the right breast. Stable benign-appearing bilateral axillary lymph nodes. No other significant abnormalities are identified. There has been no significant change since the prior study. BI/SCREEN MAMM (CAD) W/GENEVIEVE BILAT IMPRESSION: Stable bilateral screening mammogram. Yearly follow-up mammogram recommended. (A) ASSESSMENT CATEGORY: BIRADS Category 2: Benign. A letter regarding these results will be sent to the patient by the facility within 30 days. Approximately 10% of breast cancers are not detected by mammography. A normal mammogram should not delay biopsy of a clinically suspicious abnormality. [id number] Electronically Signed: Grabiel Gallagher, at 13:41 EDT , Service support ,
== END ==
PROVIDERS: PCP Family Medicine; Referring Provider Family Medicine; Visit Provider Family Medicine
DX: Z12.31 Encounter for screening mammogram for malignant neoplasm of breast (principal); Z80.3 Family history of malignant neoplasm of breast
CPT/HCPCS: 77063; 77067

== ENCOUNTER → 2019-11-25 10:42 | Outpatient (CLI) | payer MEDICARE, SELFPAY ==
[2017-06-01 08:52] VITALS: BMI 24.1
[2019-08-19 11:35] VITALS: BMI 23.1
[2019-11-26 07:10] LABS: SARS-COV-2 TOTAL ABS Nonreactive (Nonreactive)
== END ==
PROVIDERS: PCP Family Medicine; Referring Provider Internal Medicine Pulmonary Disease; Visit Provider Internal Medicine Pulmonary Disease
DX: J44.9 Chronic obstructive pulmonary disease, unspecified (principal)
CPT/HCPCS: 36415; 86769

== ENCOUNTER 2020-01-20 15:57 | Inpatient (IN) | payer MEDICARE, SELFPAY ==
[2017-06-01 08:52] VITALS: BMI 24.1
[2019-08-19 11:35] VITALS: BMI 23.1
[2020-01-20] VITALS (14 sets, daily range): BP systolic 101–161; BP diastolic 62–128; PULSE 82–134; RESP 13–22; TEMP 36.6–36.7; O2SAT 90–100; BMI 24.0; BMI 22.7
--- NOTE | 2020-01-20 16:25 | EKG12_ITS ---
Test Reason : SOB Blood Pressure : / mmHG Vent. Rate : 115 BPM Atrial Rate : 271 BPM P-R Int : 000 ms QRS Dur : 108 ms QT Int : 336 ms P-R-T Axes : 000 -46 012 degrees QTc Int : 464 ms Atrial flutter with variable A-V block Incomplete right bundle branch block Left anterior fascicular block ST & T wave abnormality, consider anterior ischemia Abnormal ECG Confirmed by CONCHIS ALCALA, SUREKHA ([id number]), non linear editor CASSANDRA MARIN ([id number]) on 01/22/2020 11:29:37 AM Referred By: ALEX Confirmed By:SUREKHA BALDERRAMA MD
[2020-01-20] MEDS: Metoprolol Tartrate 5 MG/5 ML Vial IV ×2 (16:33→16:48)
--- NOTE | 2020-01-20 17:01 | ED.DCSUM_ITS ---
History of Present Illness Chief Complaint: Shortness of Breath Informant: Patient Narrative: 84-year-old female with a history of paroxysmal atrial fibrillation. She tells me that last week she felt very weak. She has had episodes of vertigo. She states it felt like her heart has been racing. She has a history of A. fib that is paroxysmal in nature. She was on Eliquis due to nonocclusive pulmonary embolism and then was taken off of that and placed on Plavix and then taken off of that and placed back on Eliquis. She also states that her metoprolol was increased from 25 mg twice a day to 50 mg twice a day. It was at this point that she began to feel poorly. She tells me she does not understand why her heart should be racing when her pacemaker is set at 65. She notes a chronic cough that has not changed. She went to see primary care today who did an EKG that showed A. fib with RVR and she was sent to the emergency department. - Past Medical History (1) Paroxysmal atrial fibrillation Status: Chronic (2) Paroxysmal atrial flutter Status: Chronic (3) Right pulmonary embolus Status: Resolved (4) Atherosclerotic heart disease of [place] coronary artery without angina pectoris Status: Chronic (5) NSTEMI (non-ST elevated myocardial infarction) Status: Resolved (6) History of coronary artery stent placement Status: Resolved Comment: PCI-AFSHAN-LCx w/ 2.5 x 24 mm Synergy Stent 05/31/17 (7) Presence of permanent cardiac pacemaker Status: Chronic Comment: Pacemaker implant 12/18/06; Generator change 04/19/15 (8) Complete heart block Status: Chronic (9) Sick sinus syndrome Status: Chronic (10) 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 (11) Essential (primary) hypertension Status: Chronic (12) Hyperlipidemia Status: Chronic Past Medical History - Allergies and Home Meds Allergies/Adverse Reactions: Allergies Penicillins [PCN] Allergy (Verified 01/20/20 18:03) Hives aspirin Adverse Reaction (Severe, Verified 01/20/20 15:58) Severe GI upset atorvastatin Adverse Reaction (Severe, Verified 01/20/20 15:58) elevated liver enzymes metformin Adverse Reaction (Verified 01/20/20 18:03) gi upset Primary Care Physician: Jian Savage MD [Primary Care Provider] - Surgical History: angioplasty - cardiac stent, pacemaker implantation - x2 Smoking Status: Former smoker Drugs: None - Family History Maternal Family History: Family History (Last Reviewed 08/19/19 @ 11:[address] Pako Abbasi MD) Father Cancer Heart disease Mother CVA (cerebral vascular accident) Hypertension Sister Hypertension Cancer Son Diabetes Hypertension Myocardial infarction, Onset Age: 48 Family History: Reports: No pertinent history Paternal Family History: Family History (Last Reviewed 08/19/19 @ 11:[address] Pako Abbasi MD) Father Cancer Heart disease Mother CVA (cerebral vascular accident) Hypertension Sister Hypertension Cancer Son Diabetes Hypertension Myocardial infarction, Onset Age: 48 Family History: Reports: No pertinent history Review of Systems General: Reports: Malaise. Denies: Chills, Fever, Sweats Eyes: Denies: Visual changes - bilaterally, Diplopia ENT: Denies: Rhinorrhea, Sore throat Cardiovascular: Reports: Palpitations, Heart racing. Denies: Chest pain Respiratory: Reports: Cough - Chronic cough. Denies: Dyspnea, Dyspnea on exertion Gastrointestinal: Denies: Abdominal pain, Nausea, Vomiting, Diarrhea, Melena, Hematochezia Genitourinary: Denies: Dysuria, Hematuria, Frequency Musculoskeletal: Denies: Back pain, Extremity Pain Skin: Denies: Rash, Wounds Neurological: Reports: Weakness - Generalized no focal deficits. Denies: Headache, Numbness Physical Exam Vital Signs/Narrative: Vital Signs Temp Pulse Resp BP Pulse Ox 01/20/20 15:59 98.0 F 120 H 18 161/99 H 98 Inital Vital Signs reviewed: Yes General: Well nourished, Well developed, No Acute Distress Head: Normocephalic, Atraumatic Eyes: Perrl, EOMI ENT: Moist mucous membranes, No rhinorrhea Neck: Supple, Nontender Cardiovascular: No murmurs, Irregular, Tachycardia Respiratory: No distress, CTA bilaterally, Chest nontender Abdomen: Soft, Nontender, Nondistended, Normal bowel sounds Back: Nontender, Normal Inspection Extremities: Nontender, No edema Skin: Normal color, No rash Neurological: Alert, Oriented x3, Cranial nerves II-XII grossly intact, Normal Strength, Normal Sensation Psychological: Normal affect, Normal Mood Diagnostic/Tx/Re-eval Clinical Impression(s) from Imaging Studies Chest X-Ray 01/20/20 17:28 IMPRESSION: There are findings consistent with COPD. There is no evidence of acute chest disease. Electronically Signed: Steven Alcantara MD at 17:47 EST , Service support , Laboratory Last Values WBC 9.9 K/mm3 (4.4-11.0) 01/20/20 16:15 RBC 4.24 M/mm3 (4.2-5.4) 01/20/20 16:15 Hgb 13.4 g/dL (12.0-15.0) 01/20/20 16:15 Hct 40.9 % (37-47) 01/20/20 16:15 MCV 96.5 fL (81-99) 01/20/20 16:15 MCH 31.6 pg (27.0-32.0) 01/20/20 16:15 MCHC 32.8 g/dL (32-36) 01/20/20 16:15 RDW Std Deviation 44.4 fl (35.1-43.9) H 01/20/20 16:15 RDW Coeff of Guy 12.6 % (11.6-14.6) 01/20/20 16:15 Plt Count 285 K/mm3 (150-450) 01/20/20 16:15 MPV 9.7 fl (6.2-12.0) 01/20/20 16:15 Immature Gran % (Auto) 0.200 % (0.0-0.9) 01/20/20 16:15 Neut % (Auto) 73.0 % (47-70) H 01/20/20 16:15 Lymph % (Auto) 20.3 % (19-41) 01/20/20 16:15 [place] % (Auto) 5.4 % (0-10) 01/20/20 16:15 Eos % (Auto) 0.7 % (0-5) 01/20/20 16:15 Baso % (Auto) 0.4 % (0-1) 01/20/20 16:15 Absolute Neuts (auto) 7.3 X10^3/uL (2.0-7.7) 01/20/20 16:15 Absolute Lymphs (auto) 2.02 X10^3/uL (0.83-4.51) 01/20/20 16:15 Nucleated RBC % 0 % (0-5) 01/20/20 16:15 PT 17.0 SECONDS (11.7-14.9) H 01/20/20 16:15 INR 1.4 01/20/20 16:15 APTT 37.3 Seconds (24.1-36.2) H 01/20/20 16:15 Sodium 137 mmol/L (136-145) 01/20/20 16:15 Potassium 4.2 mmol/L (3.5-5.1) 01/20/20 16:15 Chloride 104 mmol/L (98-107) 01/20/20 16:15 Carbon Dioxide 28.0 mmol/L (21.0-32.0) 01/20/20 16:15 Anion Gap 5 (5-15) 01/20/20 16:15 BUN 11 mg/dL (7-18) 01/20/20 16:15 Creatinine 1.09 mg/dL (0.55-1.02) H 01/20/20 16:15 Estim Creat Clear Calc 35.81 ml/min 01/20/20 16:15 Est GFR (MDRD) Af Amer 62 mL/min (>60) 01/20/20 16:15 Est GFR (MDRD) Non-Af 51 mL/min (>60) L 01/20/20 16:15 BUN/Creatinine Ratio 10.1 RATIO (10-20) 01/20/20 16:15 Glucose 95 mg/dL (74-106) 01/20/20 16:15 Calcium 9.3 mg/dL (8.5-10.1) 01/20/20 16:15 Total Bilirubin 0.60 mg/dL (0.20-1.00) 01/20/20 16:15 AST 24 U/L (15-37) 01/20/20 16:15 ALT 25 U/L (13-56) 01/20/20 16:15 Alkaline Phosphatase 105 U/L (45-117) 01/20/20 16:15 Troponin I < 0.015 ng/mL (<0.045) 01/20/20 16:15 B-Natriuretic Peptide 289.4 pg/mL (0-100) H 01/20/20 16:15 Total Protein 7.8 g/dL (6.4-8.2) 01/20/20 16:15 Albumin 3.9 g/dL (3.2-5.0) 01/20/20 16:15 Globulin 3.9 g/dL (2.2-4.2) 01/20/20 16:15 Albumin/Globulin Ratio 1.0 RATIO (0.9-2.4) 01/20/20 16:15 - EKG Initial EKG Interpretation: Atrial Fibrillation - EKG demonstrates atrial fibrillation at a rate of 115. Incomplete right bundle branch block pattern noted. - Medical Decision Making Patient received 2 doses of metoprolol and her heart rate actually went higher to about 150 and 160. She received Cardizem was placed on a Cardizem drip. Add a Cardizem rate of 10 her heart rate is now 100-1 10. It does appear to be a trial flutter at this point. ED Disposition - Plan for ED Patient: Disposition: Acute Care Hospital [facility] Diagnosis: Atrial fibrillation with rapid ventricular response Referrals: Jian Savage MD [Primary Care Provider] -
[2020-01-20 17:07] LABS: AST(SGOT) 24 U/L (15-37); Alanine Aminotransfer ALT/SGPT 25 U/L (13-56); Albumin, Serum 3.9 g/dL (3.2-5.0); Alkaline Phosphatase 105 U/L (45-117); Anion Gap 5 (5-15); BUN 11 mg/dL (7-18); BUN/Creat Ratio 10.1 RATIO (10-20); Calcium,Total 9.3 mg/dL (8.5-10.1); Chloride 104 mmol/L (98-107); Creatinine, Serum 1.09 mg/dL (0.55-1.02); EST Glomerular Filtration Rate 51 mL/min (>60); Est Glom Filt Rate - Afr Amer 62 mL/min (>60); Estimated Creatinine Clearance 35.81 ml/min; Globulin 3.9 g/dL (2.2-4.2); Glucose 95 mg/dL (74-106); Potassium 4.2 mmol/L (3.5-5.1); Protein, Total 7.8 g/dL (6.4-8.2); Sodium Level 137 mmol/L (136-145)
[2020-01-20 17:10] LABS: Absolute Lymphocyte Count 2.02 X10^3/uL (0.83-4.51); Absolute Neutrophil Count 7.3 X10^3/uL (2.0-7.7); Basophil# 0.04 X10^3/uL; Basophil% 0.4 % (0-1); Eosinophil# 0.07 X10^3/uL; Eosinophils% 0.7 % (0-5); Hematocrit 40.9 % (37-47); Hemoglobin 13.4 g/dL (12.0-15.0); Lymphocyte # 2.02 X10^3/ul (4.0); Lymphocyte % 20.3 % (19-41); Mean Corp Hgb Conc 32.8 g/dL (32-36); Mean Corpuscular Hgb 31.6 pg (27.0-32.0); Mean Corpuscular Volume 96.5 fL (81-99); Mean Platelet Vol. 9.7 fl (6.2-12.0); Monocyte# 0.54 X10^3/uL; Monocyte% 5.4 % (0-10); NRBC Flagged by Analyzer 0 % (0-5); Neutrophil # 7.25 X10^3/uL (2.7-7.7); Platelet Count 285 K/mm3 (150-450); RBC Distribution Width CV 12.6 % (11.6-14.6); RBC Distribution Width SD 44.4 fl (35.1-43.9); Red Blood Count 4.24 M/mm3 (4.2-5.4); White Blood Count 9.9 K/mm3 (4.4-11.0)
[2020-01-20 17:23] LABS: International Normalized Ratio 1.4
[2020-01-20 17:25] LABS: Partial Thromboplast Time 37.3 Seconds (24.1-36.2)
--- NOTE | 2020-01-20 17:28 | RAD_ITS ---
STUDY: X-RAY CHEST REASON FOR EXAM: Female, 84 years old. SOB, DIZZINESS, LIGHTHEADED SINCE LAST SUNDAY. REPORTS RECENT MEDICATION CHANGES. TECHNIQUE: Single AP portable view of the chest. COMPARISON: 08/17/2019. FINDINGS: There is hyperinflation of the lungs consistent with chronic obstructive lung disease (COPD). No infiltrates or effusions. There is no demonstrated pleural abnormality. Normal size heart. Pacemaker is seen with leads terminating in the right atrium and right ventricle. Normal mediastinum and nida. Normal visualized pulmonary arteries. Normal visualized aortic arch and descending thoracic aorta. Normal visualized thoracic spine. Normal visualized ribs, clavicles, and shoulders. There is no demonstrated abnormality of the visualized soft tissue structures of the upper abdomen. RAD/Chest 1 View (Portable) IMPRESSION: There are findings consistent with COPD. There is no evidence of acute chest disease. Electronically Signed: Steven Alcantara MD at 17:47 EST , Service support ,
[2020-01-20 17:36] LABS: BNP,B-Type NATRIURETIC PEPTIDE 289.4 pg/mL (0-100)
[2020-01-20] MEDS: dilTIAZem 25 MG/5 ML Vial 10 MG IV BOLUS (17:58)
--- NOTE | 2020-01-20 18:59 | PCM.HP.STD ---
History of Present Illness Date of Admission: 01/20/20 Ms Parker is a 84 year old F with a PMH of Afib/Flutter, CAD, 3rd degree heart block s/p pacer, HTN, HPL, GERD, B carotid aa stenosis, COPD, and Hypothyroidism who presented to the ED on 01/20/2020 with increased fatigue, SOB, palpitations, and weakness since her metoprolol was increased to 50 mg last . She states that she has been compliant with all of her meds. She went to her PCP today and they sent her here after an EKG showed A-fib with RVR. She was given 5 mg of Metoprolol in the ED and her HR increased to the 150's with the dose so she was placed on a Cardizem ggt and her HR is now controlled better with HR in the upper 90's to 115 range. She states that she feels that the metoprolol makes her heart race. She denies CP. She is hemodynamically stable and sats are 98-99% on RA. She states that she sees Dr. Abbasi. Her lab work is overall unimpressive and her troponin is negative. Her EKG is c/w Afib with RVR. Pt is on NOAC at baseline. Past Medical History Past Medical History (Chronic Problems): Chronic Problems (Last Updated 12/08/19 @ 14:41 by Trinidad Contreras) Paroxysmal atrial fibrillation (Chronic) Paroxysmal atrial flutter (Chronic) Atherosclerotic heart disease of [place] coronary artery without angina pectoris (Chronic) Presence of permanent cardiac pacemaker (Chronic 04/19/15) Pacemaker implant 12/18/06; Generator change 04/19/15 Complete heart block (Chronic) Sick sinus syndrome (Chronic) 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) Bilateral carotid artery stenosis (Chronic) head\[facility] CTA 08/17/2019 left>right Essential (primary) hypertension (Chronic) Hyperlipidemia (Chronic) Medical History: Medical History (Last Reviewed 01/20/20 @ 19:[address] Myriam Odell, DO) Paroxysmal atrial fibrillation (Chronic) I48.0 Paroxysmal atrial flutter (Chronic) I48.92 Right pulmonary embolus (Resolved) Onset Date: 08/17/19 I26.99 Atherosclerotic heart disease of [place] coronary artery without angina pectoris (Chronic) I25.10 NSTEMI (non-ST elevated myocardial infarction) (Resolved) Onset Date: 05/30/17 I21.4 Complete heart block (Chronic) I44.2 Sick sinus syndrome (Chronic) I49.5 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) I45.2 Bilateral carotid artery stenosis (Chronic) I65.23 head\[facility] CTA 08/17/2019 left>right Essential (primary) hypertension (Chronic) I10 Hyperlipidemia (Chronic) E78.5 Anxiety F41.9 Bone spur of foot M77.50 COPD (chronic obstructive pulmonary disease) J44.9 Diverticulosis K57.90 GERD (gastroesophageal reflux disease) K21.9 Ganglion cyst of left foot M67.472 Hypothyroidism E03.9 Lichen sclerosus L90.0 Osteoarthritis M19.90 Dizziness and giddiness R42 Fatigue R53.83 Intermittent chest pain R07.9 Nonrheumatic mitral (valve) prolapse (Inactive) I34.1 Allergies Penicillins [PCN] Allergy (Verified 01/20/20 18:03) Hives aspirin Adverse Reaction (Severe, Verified 01/20/20 15:58) Severe GI upset atorvastatin Adverse Reaction (Severe, Verified 01/20/20 15:58) elevated liver enzymes metformin Adverse Reaction (Verified 01/20/20 18:03) gi upset Home Medications: Ambulatory Orders Medication Instructions Recorded Cholecalciferol (VIT D3) [Vitamin 1,000 unit PO DAILY 04/16/15 D3] Levothyroxine Sodium [Unithroid] 50 mcg PO DAILY 04/16/15 Ipratropium/Albuterol Respimat 1 puff INHALATION BID 12/01/16 [Combivent Respimat Inhal [place]] Ipratropium/Albuterol Sulfate 3 ml INHALATION BID PRN 05/30/17 [Duoneb] lisinopril 10 mg tablet 10 mg PO DAILY #90 tab 06/08/17 lansoprazole 30 mg capsule,delayed 1 tab PO DAILY 90 Days #90 cap 07/23/18 release nitroglycerin 0.4 mg sublingual 0.4 mg SUBLINGUAL Q5-15M PRN #25 08/03/18 tablet tab Apixaban [Eliquis] 5 mg PO BID 01/20/20 Atorvastatin Calcium [Lipitor] 20 mg PO QHS 01/20/20 Metoprolol Tartrate 12.5 mg PO BID 01/20/20 Pyridoxine HCl [Vitamin B-6] 50 mg PO DAILY 01/20/20 Surgical History: Surgical History (Last Reviewed 01/20/20 @ 19:[address] Myriam Odell DO) History of coronary artery stent placement (Resolved) Onset Date: 05/31/17 Z95.5 PCI-AFSHAN-LCx w/ 2.5 x 24 mm Synergy Stent 05/31/17 Presence of permanent cardiac pacemaker (Chronic) Onset Date: 04/19/15 Z95.0 Pacemaker implant 12/18/06; Generator change 04/19/15 H/O bladder repair surgery Z98.890 H/O excision of ganglion cyst Z98.890 left foot History of appendectomy Z90.49 History of back surgery Z98.890 History of carpal tunnel release Z98.890 History of hysterectomy Z90.710 History of left heart catheterization Onset Date: 09/10/17 Z98.890 Surgical History: angioplasty - cardiac stent, pacemaker implantation - x2 Psychiatric History: No pertinent psych hx 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 Myriam Odell DO) Father Cancer Heart disease Mother CVA (cerebral vascular accident) Hypertension Sister Hypertension Cancer Son Diabetes Hypertension Myocardial infarction, Onset Age: 48 History Items: No pertinent history Paternal Family History: Family History (Last Reviewed 01/20/20 @ 19:[address] Myriam Odell DO) Father Cancer Heart disease Mother CVA (cerebral vascular accident) Hypertension Sister Hypertension Cancer Son Diabetes Hypertension Myocardial infarction, Onset Age: 48 History Items: No pertinent history Review of Systems Constitutional: Reports: Weakness, Fatigue. Denies: Anorexia, Chills, Fever, Night Sweats, Malaise, Weight Change Eyes: Denies: Blurred vision, Cataracts, Conjunctivae Inflammation, Double vision, Drainage, Eyelid Inflammation, Pain, Redness, Vision Change HEENT: Denies: Difficulty Hearing, Difficulty Swallowing, Head Aches, Nasal bleeding, Nasal Congestion, Post Nasal Drip, Sinus Congestion, Sinus Drainage, Sore Throat, Visual Changes Cardiovascular: Denies: Chest Pain, Claudication, Chest Pressure, Chest Tightness, Edema, Heaviness, Light Headedness, Orthopnea, Palpitations, Paroxysmal Noc. Dyspnea, Syncope Respiratory: Reports: Cough - chronic, Shortness of Breath, Shortness of breath at rest, Shortness of breath upon exertion. Denies: Hemoptysis, Pleuritic Pain, Sputum production, Wheezing Gastrointestinal: Denies: Abdominal Pain, Constipation, Diarrhea, Dyspepsia, Hematemesis, Hematochezia, Nausea, Melena, Vomiting Genitourinary: Denies: Dysuria, Frequency, Hematuria, Hesitancy, Incontinence, Nocturia, Retention, Urgency Musculoskeletal: Denies: Back Pain, Joint Pain, Joint stiffness, Joint swelling, Joint Tenderness, Muscle pain, Neck Pain Skin: Denies: Dryness, Jaundice, Lesions, Pruritis, Rash, Skin Changes, Wounds Neurological: Reports: - - 1 bout of vertigo--> now resolved. Denies: Balance problems, Blurred vision, Double vision, Change in Speech, Slurred speech, Confusion, Difficulty swallowing, Focal weakness, Headaches, Incoordination, Numbness, Tingling, Tremor Psychiatric: Denies: Anxiety, Depression Endocrine: Denies: Change in Body Habitus, Heat/ Cold Intolerance, Polydipsia, Polyuria Hematologic/ Lymphatic: Reports: Easy Bruising, Easy Bleeding. Denies: Adenopathy, Anemia, Petechiae, Purpura VTE Information - Inpt Only VTE Present on Admission: No VTE Mechan Device Prophylaxis: None VTE Pharm Prophylaxis ordered?: No Patient Problems: Active and Suspected Problems (Last Updated 12/08/19 @ 14:41 by Trinidad Contreras) Atrial fibrillation with rapid ventricular response (Acute) - Physical Exam Vitals/I&O's: Vital Signs Temp Pulse Resp BP Pulse Ox 98.0 F 118 H 16 132/80 H 98 01/20/20 15:59 01/20/20 18:27 01/20/20 18:27 01/20/20 18:27 01/20/20 18:27 Oxygen Delivery Method Room Air Weight: 65.529 kg Body Mass Index (BMI) 24.0 Intake and Output for Last 24 Hours 01/18/20 01/19/20 01/20/20 23:59 23:59 23:59 Intake Total 1.58 / 1.58 Balance 1.58 / 1.58 General: Alert, Oriented x3, Cooperative, No apparent distress, Well developed, Well nourished, - - older WF who appears younger than stated age HEENT: Atraumatic, PERRLA, EOMI, Normocephalic, EAC Clear Oral: Moist Mucosa, No Gingival or Mucosal Lesions/ Ulcerations Neck: Supple, No JVD, Negative Carotid Bruits, Negative Hepatojugular Reflux, No Nodes, No Nuchal Rigidity, Trachea Midline Lungs: Clear to auscultation, No rhonchi, No wheeze, No rales, Diminished - diffusely Cardiovascular: Normal S1, Normal S2, No murmurs, Irregular Rate, No rub noted, No Gallop, Tachycardic, - - irreg rhythm with few ectopic beats Abdomen: Bowel Sounds Present, Soft, Non Tender, Non-Distended, No Hepato-splenomegaly, No hernias noted Extremities: No cyanosis, No edema, Capillary Refill Less than 3 Seconds, Clubbing - mild, Peripheral Pulses Normal Skin: No rashes, No breakdown Musculoskeletal: No Tenderness to Palpation of Joints or Extremities, No Muscle Wasting, Arthritic Changes Lymphatic: No Cervical, Supraclavicular, or Inguinal Adenopathy Neurological: Cranial nerves II-XII grossly intact, Deep Tendon Reflexes 2+/4 and Symmetrical, Neuro grossly intact, Motor Exam 5/5 strength throughout, Muscle tone normal, Sensory exam intact to light touch and pain, Coordination normal Psych/Mental Status: Normal Affect, Appropriate Laboratory Results 01/20/20 16:15: WBC 9.9, RBC 4.24, Hgb 13.4, Hct 40.9, MCV 96.5, MCH 31.6, MCHC 32.8, RDW Std Deviation 44.4 H, RDW Coeff of [place] 12.6, Plt Count 285, MPV 9.7, Immature Gran % (Auto) 0.200, Neut % (Auto) 73.0 H, Lymph % (Auto) 20.3, [place] % (Auto) 5.4, Eos % (Auto) 0.7, Baso % (Auto) 0.4, Absolute Neuts (auto) 7.3, Absolute Lymphs (auto) 2.02, Nucleated RBC % 0 01/20/20 16:15: PT 17.0 H, INR 1.4, APTT 37.3 H 01/20/20 16:15: Sodium 137, Potassium 4.2, Chloride 104, Carbon Dioxide 28.0, Anion Gap 5, BUN 11, Creatinine 1.09 H, Estim Creat Clear Calc 35.81, Est GFR (MDRD) Af Amer 62, Est GFR (MDRD) Non-Af 51 L, BUN/Creatinine Ratio 10.1, Glucose 95, Calcium 9.3, Total Bilirubin 0.60, AST 24, ALT 25, Alkaline Phosphatase 105, Troponin I < 0.015, Total Protein 7.8, Albumin 3.9, Globulin 3.9, Albumin/Globulin Ratio 1.0 01/20/20 16:15: B-Natriuretic Peptide 289.4 H Current Medications Diltiazem HCl 125 mg/ Dextrose 125 mls @ 5 mls/hr IV .Q25H RICCO; Protocol Last Titration: 01/20/20 18:27 Dose: 10 mg/hr, 10 mls/hr Documented by: Sodium Chloride (0.9% Saline Lock 10 Ml Syringe) 10 - 40 ml IV UD PRN PRN Reason: SALINE FLUSH Assessment/Plan All Active Problems (Last Updated 12/08/19 @ 14:41 by Trinidad Contreras) Atrial fibrillation with rapid ventricular response (Acute) Right pulmonary embolus (Resolved 08/17/19) NSTEMI (non-ST elevated myocardial infarction) (Resolved 05/30/17) History of coronary artery stent placement (Resolved 05/31/17) Left foot pain (Resolved) Afib with RVR -has h/o PAF -BB appear to speed up her HR -Cardizem ggt -continue NOAC -check TSH -has had recent ECHO 02/2019 with EF 65% -consult Dr. Elroy GONZALEZ -mild -monitor HTN/HPL -continue Statin -continue lisinopril -stop BB -Cardizem ggt GERD -PPI H/O SSS/ 3rd Degree HB -has pacer COPD -continue home inhalers Carotid aa Stenosis -continue aggressive mgt of risk factors DVT Prophylaxis -DOAC Code Status -Full Inpatient E&M: 57072 Init Hosp L3
[2020-01-20] MEDS: Atorvastatin Calcium 20 MG Tablet PO (22:03)
[2020-01-20] MEDS: APIXABAN 5 MG TABLET PO (22:03)
[2020-01-20] MEDS: Ipratropium/Albuterol Sulfate 3 ML AMPUL.NEB INHALATION (22:07)
[2020-01-21] VITALS (19 sets, daily range): BP systolic 84–135; BP diastolic 61–101; PULSE 84–105; RESP 16–35; TEMP 37–37.1; O2SAT 90–100
[2020-01-21 05:36] LABS: Absolute Lymphocyte Count 1.79 X10^3/uL (0.83-4.51); Basophil# 0.04 X10^3/uL; Basophil% 0.4 % (0-1); Eosinophil# 0.11 X10^3/uL; Eosinophils% 1.1 % (0-5); Hematocrit 38.5 % (37-47); Hemoglobin 12.4 g/dL (12.0-15.0); Lymphocyte # 1.79 X10^3/ul (4.0); Lymphocyte % 18.7 % (19-41); Mean Corp Hgb Conc 32.2 g/dL (32-36); Mean Corpuscular Hgb 31.4 pg (27.0-32.0); Mean Corpuscular Volume 97.5 fL (81-99); Mean Platelet Vol. 9.3 fl (6.2-12.0); Monocyte# 0.62 X10^3/uL; Monocyte% 6.5 % (0-10); NRBC Flagged by Analyzer 0 % (0-5); Neutrophil % 73.1 % (47-70); Platelet Count 233 K/mm3 (150-450); RBC Distribution Width CV 12.4 % (11.6-14.6); RBC Distribution Width SD 44.3 fl (35.1-43.9); Red Blood Count 3.95 M/mm3 (4.2-5.4); White Blood Count 9.6 K/mm3 (4.4-11.0)
[2020-01-21] MEDS: Levothyroxine 50 MCG Tablet PO (05:53)
[2020-01-21 06:04] LABS: ALB/GLOB Ratio 0.9 RATIO (0.9-2.4); AST(SGOT) 19 U/L (15-37); Alanine Aminotransfer ALT/SGPT 22 U/L (13-56); Albumin, Serum 3.3 g/dL (3.2-5.0); Alkaline Phosphatase 91 U/L (45-117); Anion Gap 6 (5-15); BUN 12 mg/dL (7-18); BUN/Creat Ratio 12.7 RATIO (10-20); Chloride 108 mmol/L (98-107); Creatinine, Serum 0.94 mg/dL (0.55-1.02); EST Glomerular Filtration Rate 60 mL/min (>60); Est Glom Filt Rate - Afr Amer 73 mL/min (>60); Estimated Creatinine Clearance 41.52 ml/min; Globulin 3.6 g/dL (2.2-4.2); Glucose 101 mg/dL (74-106); Magnesium 1.8 mg/dL (1.6-2.6); Phosphorus 3.7 mg/dL (2.5-4.9); Potassium 4.2 mmol/L (3.5-5.1); Protein, Total 6.9 g/dL (6.4-8.2); Sodium Level 139 mmol/L (136-145); Thyroid Stim Hormone (TSH) 1.98 uIU/mL (0.358-3.74)
[2020-01-21] MEDS: Ipratropium/Albuterol Sulfate 3 ML AMPUL.NEB INHALATION (07:50)
--- NOTE | 2020-01-21 07:59 | PCM.CONS.C ---
Reason for Consult Date of Consultation: 01/21/20 Reason for Consultation: Irregular heartbeat History of Present Illness: The patient is a 84 year old F who presented to the emergency room yesterday with palpitations. She says that this has been going on for approximately 4 to 5 days except that her dog was not well so she did not want to leave it and come to the hospital. However yesterday it got bad enough that she decided to present. She was noted to be in atrial fibrillation flutter with a rapid ventricular response rate. She was admitted started on intravenous Cardizem and cardiology was called for further evaluation and management. She has a history of coronary artery disease status post drug-eluting stent to LCx in May 2017, status post permanent pacemaker placement, hypertension, and hyperlipidemia. She had previously developed a pulmonary embolism and was placed on Eliquis. Her clopidogrel has been discontinued. She has had no dizziness or diaphoresis no near syncope or syncope. You do remember that her previous echocardiogram had demonstrated an ejection fraction of 65% with no wall motion abnormalities noted. Previous stress test in January 2017 was normal. Her blood pressure has been under good control. She had her pacemaker interrogated today and is noted to be functioning quite well. Her physical exam demonstrates clear lung barreto regular rate and rhythm and no pedal edema. Past Medical History Allergies/Adverse Reactions: Allergies Penicillins [PCN] Allergy (Verified 01/20/20 18:03) Hives aspirin Adverse Reaction (Severe, Verified 01/20/20 15:58) Severe GI upset atorvastatin Adverse Reaction (Severe, Verified 01/20/20 15:58) elevated liver enzymes metformin Adverse Reaction (Verified 01/20/20 18:03) gi upset Home Medications: Ambulatory Orders Medication Instructions Recorded Cholecalciferol (VIT D3) [Vitamin 1,000 unit PO DAILY 04/16/15 D3] Levothyroxine Sodium [Unithroid] 50 mcg PO DAILY 04/16/15 Ipratropium/Albuterol Respimat 1 puff INHALATION BID 12/01/16 [Combivent Respimat Inhal [place]] Ipratropium/Albuterol Sulfate 3 ml INHALATION BID PRN 05/30/17 [Duoneb] lisinopril 10 mg tablet 10 mg PO DAILY #90 tab 06/08/17 lansoprazole 30 mg capsule,delayed 1 tab PO DAILY 90 Days #90 cap 07/23/18 release nitroglycerin 0.4 mg sublingual 0.4 mg SUBLINGUAL Q5-15M PRN #25 08/03/18 tablet tab Apixaban [Eliquis] 5 mg PO BID 01/20/20 Atorvastatin Calcium [Lipitor] 20 mg PO QHS 01/20/20 Metoprolol Tartrate 12.5 mg PO BID 01/20/20 Pyridoxine HCl [Vitamin B-6] 50 mg PO DAILY 01/20/20 Past Medical History (Chronic Problems): Chronic Problems (Last Reviewed 01/20/20 @ 19:[address] 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 Myriam Odell DO) Father Cancer Heart disease Mother CVA (cerebral vascular accident) Hypertension Sister Hypertension Cancer Son Diabetes Hypertension Myocardial infarction, Onset Age: 48 History Items: No pertinent history Paternal Family History: Family History (Last Reviewed 01/20/20 @ 19:[address] Myriam Odell DO) Father Cancer Heart disease Mother CVA (cerebral vascular accident) Hypertension Sister Hypertension Cancer Son Diabetes Hypertension Myocardial infarction, Onset Age: 48 History Items: No pertinent history Lives: Alone Smoking Status: Former smoker Tobacco Use: Cigarettes Alcohol: None Drugs: None Review of Systems - Review of Systems General: Denies: Fever, Night Sweats, Fatigue HEENT: Denies: Vision Change Cardiovascular: Reports: Palpitations. Denies: Chest Discomfort, Shortness of Breath, Orthopnea, PND, Peripheral Edema, Lightheadedness, Dizziness, Near Syncope, Syncope Respiratory: Denies: Cough, Sputum Production, Hemoptysis Gastrointestinal: Denies: Hematemesis, Hematochezia, Melena Genitourinary: Denies: Dysuria, Hematuria Muscoloskeletal: Denies: Myalgias Skin: Denies: Rash Neurological: Denies: Dizziness Psychiatric: Denies: Anxiety Endocrine: Denies: Heat Intolerance Subjectve: Pleasant lady in no distress Objective: Vital Signs Temp Pulse Resp BP Pulse Ox 98.7 F 97 23 H 84/65 L 92 01/21/20 02:23 01/21/20 07:00 01/21/20 07:00 01/21/20 07:00 01/21/20 07:00 Oxygen Delivery Method Room Air Weight: 138 lb 14.259 oz Body Mass Index (BMI) 22.7 Intake and Output for Last 24 Hours 01/19/20 01/20/20 01/21/20 23:59 23:59 23:59 Intake Total 247.08 / 257.08 80.0 / 80.0 Balance 247.08 / 257.08 80.0 / 80.0 General: Awake, Alert, Oriented x 3 HEENT: PERRL, EOMI, Sclera Non Icteric Neck: Supple, Good ROM, No Lymph Node Enlargement Lungs: Clear to auscultation Cardiovascular: Irregular Rhythm, Normal S1, Normal S2, No Murmurs, No Rubs, No Gallops Vascular: No Carotid Bruits, Normal Femoral Pulses, Normal Radial Pulses, Normal Dorsalis Pedal Pulse, Normal Posterior Tibial Pulses Abdomen: Bowel Sounds Present, Soft, Non Tender, No HSM, No Organomegaly Extremities: No Cyanosis, No Clubbing, No edema Lymphatic: No Lymph Node Enlargement Neurological: No Focal Motor or Sensory Deficit Psych/Mental Status: Appropriate 01/20/20 16:15: WBC 9.9, RBC 4.24, Hgb 13.4, Hct 40.9, MCV 96.5, MCH 31.6, MCHC 32.8, Plt Count 285, MPV 9.7, Immature Gran % (Auto) 0.200, Neut % (Auto) 73.0 H, Lymph % (Auto) 20.3, Moca % (Auto) 5.4, Eos % (Auto) 0.7, Baso % (Auto) 0.4, Absolute Neuts (auto) 7.3, Nucleated RBC % 0 01/20/20 16:15: PT 17.0 H, INR 1.4, APTT 37.3 H 01/20/20 16:15: Sodium 137, Potassium 4.2, Chloride 104, Carbon Dioxide 28.0, Anion Gap 5, BUN 11, Creatinine 1.09 H, Est GFR (MDRD) Af Amer 62, Est GFR (MDRD) Non-Af 51 L, BUN/Creatinine Ratio 10.1, Glucose 95, Calcium 9.3, Total Bilirubin 0.60, Troponin I < 0.015 01/20/20 16:15: B-Natriuretic Peptide 289.4 H 01/21/20 05:18: WBC 9.6, RBC 3.95 L, Hgb 12.4, Hct 38.5, MCV 97.5, MCH 31.4, MCHC 32.2, Plt Count 233, MPV 9.3, Immature Gran % (Auto) 0.200, Neut % (Auto) 73.1 H, Lymph % (Auto) 18.7 L, Moca % (Auto) 6.5, Eos % (Auto) 1.1, Baso % (Auto) 0.4, Absolute Neuts (auto) 7.0, Nucleated RBC % 0 01/21/20 05:18: Sodium 139, Potassium 4.2, Chloride 108 H, Carbon Dioxide 25.0, Anion Gap 6, BUN 12, Creatinine 0.94, Est GFR (MDRD) Af Amer 73, Est GFR (MDRD) Non-Af 60, BUN/Creatinine Ratio 12.7, Glucose 101, Calcium 9.0, Phosphorus 3.7, Magnesium 1.8, Total Bilirubin 0.80 Rhythm: EKG: ECHO: Stress Test: Cardiac Cath: PCI: CT Surgery: Holter monitor: EPS: PPM: CXR: Chest CT Scan: Assessment/Plan 1. Recent onset atrial flutter. Patient appears to have developed recent onset atrial flutter. It was briefly noted on her pacemaker interrogation. She has been on anticoagulation with Eliquis. I would recommend at this time that we perform a DC cardioversion on her. We have ascertained that she has been anticoagulated since December 07 at least. Risk benefits and alternatives explained to her she understands and agrees to proceed. I may recommend an antiarrhythmic post cardioversion 2. Presence of permanent cardiac pacemaker Z95.0 Pacemaker implant 12/18/06; Generator change 04/19/15 She is status post permanent pacemaker implantation it was interrogated today with a battery longevity of 9 to 10 years. Her R waves have been noted to be poor and she has had occasional ventricular high rates suggestive of atrial fibrillation or flutter. The longest episode was on August 15 which lasted for about 20 hours. The plan was to keep her on anticoagulation indefinitely. 3. Essential (primary) hypertension I10 Plan She does have a history of hypertension which is well-controlled at the present time and I would not recommend that we make any changes. 4. History of coronary artery stent placement Z95.5 PCI-AFSHAN-LCx w/ 2.5 x 24 mm Synergy Stent 05/31/17 Plan She does have previous coronary artery stenting. Her last catheterization was in August 2017 it demonstrated patent stent in the circumflex artery obtuse marginal branch circumflex demonstrated moderate luminal irregularities up to 40% with distal LAD of 30%. We will continue her current medications and not make any changes.
--- NOTE | 2020-01-21 08:07 | EKG12_ITS ---
Test Reason : Blood Pressure : / mmHG Vent. Rate : 104 BPM Atrial Rate : 288 BPM P-R Int : 000 ms QRS Dur : 104 ms QT Int : 342 ms P-R-T Axes : 000 -43 048 degrees QTc Int : 449 ms Atrial flutter with variable A-V block with frequent ventricular-paced complexes Left axis deviation ST & T wave abnormality, consider anterior ischemia Abnormal ECG When compared with ECG of 20-JAN-2020 16:20, MANUAL COMPARISON REQUIRED, DATA IS UNCONFIRMED Confirmed by KATHRYN ALCALA, ETHAN ([id number]), general expeditor CASSANDRA MARIN ([id number]) on 01/22/2020 1:02:36 PM Referred By: MAYUR Confirmed By:YESSENIA PERALTA MD
[2020-01-21] MEDS: Amiodarone 200 MG Tablet PO (09:19)
[2020-01-21] MEDS: Pyridoxine HCl 50 MG Tablet PO (09:19)
[2020-01-21] MEDS: APIXABAN 5 MG TABLET PO (09:19)
[2020-01-21] MEDS: Pantoprazole Sodium 40 MG Tablet PO (09:19)
[2020-01-21] MEDS: Lisinopril 10 MG Tablet PO (09:19)
--- NOTE | 2020-01-21 10:26 | CASEMGMT ---
Assessment- SW completed assessment with patient at her bedside. SW also confirmed addresses and contact people. Living situation- Patient lives alone in a mobile home with 3 entry steps. PCP: Dr Jian Savage Specialists: Dr Abbasi-Cardiology and Dr Palmer- Pulmonology (patient said she may not return to [facility]) Pharmacy: [facility] DME: shower chair, walker, cane, bed rails, and raised toilet seat ADL's/IADL's: Patient is independent in all adls and iadls. The only equipment she uses is her shower chair. She said she has been having a little trouble lately with basic things like vacuuming, going to the store etc. She said she is more than willing to pay for help. Past SNF/rehab: No Past HH: No LW: Yes. She is aware it is not on file POA: Yes. She is aware it is not on file. She said her sons are her HCPOAs Plan: Patient has no concerns with going home at discharge. She did say she would like to have someone that could stop in and check on her. She said she could use help with getting groceries and cleaning. She said she knows she would have to pay for it and that is fine. SW gave her a list of private duty agencies. Otherwise she does not feel she will need anything at d/c. Dolores MARCANO
--- NOTE | 2020-01-21 13:12 | NURSING ---
To laboratory apparatus glass blower for Cardioversion.
--- NOTE | 2020-01-21 13:18 | PCM.PN.HOSP ---
<Jayme Morgan - Last Filed: 01/21/20 13:18> Patient Problems: Active and Suspected Problems (Last Reviewed 01/20/20 @ 19:[address] Myriam Odell DO) Atrial fibrillation with rapid ventricular response (Acute) Reason for Visit: A. fib with RVR Subjective: Patient resting comfortably in bed. Had palpitations yesterday, no palpitations today. No shortness of breath, lightheadedness, dizziness, chest pain, pressure, tightness, heaviness, lower extremity edema. Patient doing well waiting for cardioversion today. Vitals/I&O's: Vital Signs Temp Pulse Resp BP Pulse Ox 98.6 F 94 26 H 103/70 95 01/21/20 08:00 01/21/20 12:09 01/21/20 11:59 01/21/20 11:59 01/21/20 11:59 Oxygen Delivery Method Room Air Weight: 138 lb 14.259 oz Body Mass Index (BMI) 22.7 Intake and Output for Last 24 Hours 01/19/20 01/20/20 01/21/20 23:59 23:59 23:59 Intake Total 247.08 / 257.08 129.83 / 129.83 Balance 247.08 / 257.08 129.83 / 129.83 General: Alert, Oriented x3, Cooperative HEENT: Atraumatic, PERRLA, EOMI, Normocephalic Neck: Supple, No JVD, Negative Carotid Bruits Lungs: Clear to auscultation, Normal air movement Cardiovascular: No murmurs, Irregular Rate Abdomen: Bowel Sounds Present, Soft, Non Tender Extremities: No edema, Capillary Refill Less than 3 Seconds Skin: No rashes, No breakdown Musculoskeletal: No Tenderness to Palpation of Joints or Extremities Neurological: Cranial nerves II-XII grossly intact Psych/Mental Status: Normal Affect, Appropriate, Alert and oriented to time, place, person, mood and affect Laboratory Results 01/20/20 16:15: WBC 9.9, RBC 4.24, Hgb 13.4, Hct 40.9, MCV 96.5, MCH 31.6, MCHC 32.8, RDW Std Deviation 44.4 H, RDW Coeff of Guy 12.6, Plt Count 285, MPV 9.7, Immature Gran % (Auto) 0.200, Neut % (Auto) 73.0 H, Lymph % (Auto) 20.3, Webb % (Auto) 5.4, Eos % (Auto) 0.7, Baso % (Auto) 0.4, Absolute Neuts (auto) 7.3, Absolute Lymphs (auto) 2.02, Nucleated RBC % 0 01/20/20 16:15: PT 17.0 H, INR 1.4, APTT 37.3 H 01/20/20 16:15: Sodium 137, Potassium 4.2, Chloride 104, Carbon Dioxide 28.0, Anion Gap 5, BUN 11, Creatinine 1.09 H, Estim Creat Clear Calc 35.81, Est GFR (MDRD) Af Amer 62, Est GFR (MDRD) Non-Af 51 L, BUN/Creatinine Ratio 10.1, Glucose 95, Calcium 9.3, Total Bilirubin 0.60, AST 24, ALT 25, Alkaline Phosphatase 105, Troponin I < 0.015, Total Protein 7.8, Albumin 3.9, Globulin 3.9, Albumin/Globulin Ratio 1.0 01/20/20 16:15: B-Natriuretic Peptide 289.4 H 01/21/20 05:18: WBC 9.6, RBC 3.95 L, Hgb 12.4, Hct 38.5, MCV 97.5, MCH 31.4, MCHC 32.2, RDW Std Deviation 44.3 H, RDW Coeff of Guy 12.4, Plt Count 233, MPV 9.3, Immature Gran % (Auto) 0.200, Neut % (Auto) 73.1 H, Lymph % (Auto) 18.7 L, Webb % (Auto) 6.5, Eos % (Auto) 1.1, Baso % (Auto) 0.4, Absolute Neuts (auto) 7.0, Absolute Lymphs (auto) 1.79, Nucleated RBC % 0 01/21/20 05:18: Sodium 139, Potassium 4.2, Chloride 108 H, Carbon Dioxide 25.0, Anion Gap 6, BUN 12, Creatinine 0.94, Estim Creat Clear Calc 41.52, Est GFR (MDRD) Af Amer 73, Est GFR (MDRD) Non-Af 60, BUN/Creatinine Ratio 12.7, Glucose 101, Calcium 9.0, Phosphorus 3.7, Magnesium 1.8, Total Bilirubin 0.80, AST 19, ALT 22, Alkaline Phosphatase 91, Total Protein 6.9, Albumin 3.3, Globulin 3.6, Albumin/Globulin Ratio 0.9, TSH 1.98 Current Medications Acetaminophen (Acetaminophen 325 Mg Tablet) 650 mg PO Q6H PRN PRN PRN Reason: Pain Score 1-10/Temp > 100.7 F Al Hydroxide/Mg Hydroxide (Mag Hydrox/Al Hydrox/Simeth 30 Ml Udc) 30 ml PO Q6H PRN PRN PRN Reason: Gastric Burning Albuterol Sulfate (Albuterol 2.5 Mg/3 Ml Vial.Neb.) 2.5 mg INHALATION Q2H PRN PRN PRN Reason: SOB/Wheezing Albuterol/Ipratropium (Ipratropium/Albuterol Sulfate 3 Ml Ampul.Neb) 3 ml INHALATION BID.RT [facility] Last Admin: 01/21/20 07:50 Dose: 3 ml Documented by: Amiodarone HCl (Amiodarone 200 Mg Tablet) 200 mg PO BID [facility] Last Admin: 01/21/20 09:19 Dose: 200 mg Documented by: Apixaban (Apixaban 5 Mg Tablet) 5 mg PO BID [facility] Last Admin: 01/21/20 09:19 Dose: 5 mg Documented by: Atorvastatin Calcium (Atorvastatin Calcium 20 Mg Tablet) 20 mg PO QHS [facility] Last Admin: 01/20/20 22:03 Dose: 20 mg Documented by: Cholecalciferol (Cholecalciferol (Vit D3) 1,000 Unit (25mcg)) 1,000 unit PO DAILYCM [facility] Last Admin: 01/21/20 09:19 Dose: 1,000 unit Documented by: Diltiazem HCl 125 mg/ Dextrose 125 mls @ 5 mls/hr IV .Q25H [facility]; Protocol Last Titration: 01/21/20 11:59 Dose: 10 mg/hr, 10 mls/hr Documented by: Sodium Chloride () 500 mls @ 0 mls/hr IV .Q0M [facility] Levothyroxine Sodium (Levothyroxine 50 Mcg Tablet) 50 mcg PO DAILY@0600 [facility] Last Admin: 01/21/20 05:53 Dose: 50 mcg Documented by: Lisinopril (Lisinopril 10 Mg Tablet) 10 mg PO DAILY [facility] Last Admin: 01/21/20 09:19 Dose: 10 mg Documented by: Nitroglycerin (Nitroglycerin (Inpatient Use) 0.4 Mg Tab.Subl) 0.4 mg SUBLINGUAL Q5M PRN PRN Reason: chest pain Ondansetron HCl (Ondansetron 4 Mg/2 Ml Vial) 4 mg IV Q8H PRN PRN PRN Reason: NAUSEA/VOMITING Pantoprazole Sodium (Pantoprazole Sodium 40 Mg Tablet) 40 mg PO DAILY [facility] Last Admin: 01/21/20 09:19 Dose: 40 mg Documented by: Pyridoxine HCl (Pyridoxine Hcl 50 Mg Tablet) [facility] Last Admin: 01/21/20 09:19 Dose: 50 mg Documented by: Sodium Chloride (0.9% Saline Lock 10 Ml Syringe) 10 - 40 ml IV UD PRN PRN Reason: SALINE FLUSH STROKE Vital Signs/Narrative: Vital Signs Pulse Resp BP Pulse Ox 01/21/20 12:09 94 01/21/20 11:59 87 26 H 103/70 95 01/21/20 11:12 96 27 H 98/61 93 01/21/20 10:00 99 18 108/93 H 100 Medical Necessity - Tobacco Use Smoking Status: Former smoker Tobacco Use: Cigarettes Assessment/Plan All Active Problems (Last Reviewed 01/20/20 @ 19:[address] Myriam Odell, DO) Atrial fibrillation with rapid ventricular response (Acute) Right pulmonary embolus (Resolved 08/17/19) NSTEMI (non-ST elevated myocardial infarction) (Resolved 05/30/17) History of coronary artery stent placement (Resolved 05/31/17) Left foot pain (Resolved) 1. Atrial fibrillation, atrial flutter with rapid ventricular response-patient on Cardizem drip this morning, going for cardioversion this afternoon. Amiodarone continued. Cardiology following. Patient has pacemaker in place. TSH normal. Patient has been on Eliquis. 2. CARLOS-ruled out, patient creatinine not significantly above baseline. 3. Sick sinus syndrome-pacemaker in place. 4. COPD-no exacerbation, as needed albuterol 5. History of carotid artery stenosis-continue atorvastatin. 6. GERD-PPI 7. Hypothyroidism-levothyroxine, as above TSH normal. DVT prophylaxis: Eliquis Discharge planning: Cardioversion today, monitor overnight This patient was seen by Jayme Morgan PA-C under the supervision of Doctor Sanya. <Winnie Segundo Leanna - Last Filed: 01/21/20 15:07> Vitals/I&O's: Vital Signs Temp Pulse Resp BP Pulse Ox 98.6 F 84 26 H 103/70 95 01/21/20 08:00 01/21/20 14:58 01/21/20 11:59 01/21/20 11:59 01/21/20 11:59 Oxygen Delivery Method Room Air Weight: 138 lb 14.259 oz Body Mass Index (BMI) 22.7 Intake and Output for Last 24 Hours 01/19/20 01/20/20 01/21/20 23:59 23:59 23:59 Intake Total 247.08 / 257.08 141.66 / 141.66 Balance 247.08 / 257.08 141.66 / 141.66 Laboratory Results 01/20/20 16:15: WBC 9.9, RBC 4.24, Hgb 13.4, Hct 40.9, MCV 96.5, MCH 31.6, MCHC 32.8, RDW Std Deviation 44.4 H, RDW Coeff of Guy 12.6, Plt Count 285, MPV 9.7, Immature Gran % (Auto) 0.200, Neut % (Auto) 73.0 H, Lymph % (Auto) 20.3, Webb % (Auto) 5.4, Eos % (Auto) 0.7, Baso % (Auto) 0.4, Absolute Neuts (auto) 7.3, Absolute Lymphs (auto) 2.02, Nucleated RBC % 0 01/20/20 16:15: PT 17.0 H, INR 1.4, APTT 37.3 H 01/20/20 16:15: Sodium 137, Potassium 4.2, Chloride 104, Carbon Dioxide 28.0, Anion Gap 5, BUN 11, Creatinine 1.09 H, Estim Creat Clear Calc 35.81, Est GFR (MDRD) Af Amer 62, Est GFR (MDRD) Non-Af 51 L, BUN/Creatinine Ratio 10.1, Glucose 95, Calcium 9.3, Total Bilirubin 0.60, AST 24, ALT 25, Alkaline Phosphatase 105, Troponin I < 0.015, Total Protein 7.8, Albumin 3.9, Globulin 3.9, Albumin/Globulin Ratio 1.0 01/20/20 16:15: B-Natriuretic Peptide 289.4 H 01/21/20 05:18: WBC 9.6, RBC 3.95 L, Hgb 12.4, Hct 38.5, MCV 97.5, MCH 31.4, MCHC 32.2, RDW Std Deviation 44.3 H, RDW Coeff of Guy 12.4, Plt Count 233, MPV 9.3, Immature Gran % (Auto) 0.200, Neut % (Auto) 73.1 H, Lymph % (Auto) 18.7 L, Webb % (Auto) 6.5, Eos % (Auto) 1.1, Baso % (Auto) 0.4, Absolute Neuts (auto) 7.0, Absolute Lymphs (auto) 1.79, Nucleated RBC % 0 01/21/20 05:18: Sodium 139, Potassium 4.2, Chloride 108 H, Carbon Dioxide 25.0, Anion Gap 6, BUN 12, Creatinine 0.94, Estim Creat Clear Calc 41.52, Est GFR (MDRD) Af Amer 73, Est GFR (MDRD) Non-Af 60, BUN/Creatinine Ratio 12.7, Glucose 101, Calcium 9.0, Phosphorus 3.7, Magnesium 1.8, Total Bilirubin 0.80, AST 19, ALT 22, Alkaline Phosphatase 91, Total Protein 6.9, Albumin 3.3, Globulin 3.6, Albumin/Globulin Ratio 0.9, TSH 1.98 Current Medications Acetaminophen (Acetaminophen 325 Mg Tablet) 650 mg PO Q6H PRN PRN PRN Reason: Pain Score 1-10/Temp > 100.7 F Al Hydroxide/Mg Hydroxide (Mag Hydrox/Al Hydrox/Simeth 30 Ml Udc) 30 ml PO Q6H PRN PRN PRN Reason: Gastric Burning Albuterol Sulfate (Albuterol 2.5 Mg/3 Ml Vial.Neb.) 2.5 mg INHALATION Q2H PRN PRN PRN Reason: SOB/Wheezing Albuterol/Ipratropium (Ipratropium/Albuterol Sulfate 3 Ml Ampul.Neb) 3 ml INHALATION BID.RT [facility] Last Admin: 01/21/20 07:50 Dose: 3 ml Documented by: Amiodarone HCl (Amiodarone 200 Mg Tablet) 200 mg PO BID [facility] Last Admin: 01/21/20 09:19 Dose: 200 mg Documented by: Apixaban (Apixaban 5 Mg Tablet) 5 mg PO BID [facility] Last Admin: 01/21/20 09:19 Dose: 5 mg Documented by: Atorvastatin Calcium (Atorvastatin Calcium 20 Mg Tablet) 20 mg PO QHS [facility] Last Admin: 01/20/20 22:03 Dose: 20 mg Documented by: Cholecalciferol (Cholecalciferol (Vit D3) 1,000 Unit (25mcg)) [facility] Last Admin: 01/21/20 09:19 Dose: 1,000 unit Documented by: Sodium Chloride () 500 mls @ 0 mls/hr IV .Q0M [facility] Levothyroxine Sodium (Levothyroxine 50 Mcg Tablet) 50 mcg PO DAILY@0600 [facility] Last Admin: 01/21/20 05:53 Dose: 50 mcg Documented by: Lisinopril (Lisinopril 10 Mg Tablet) 10 mg PO DAILY [facility] Last Admin: 01/21/20 09:19 Dose: 10 mg Documented by: Metoprolol Tartrate (Metoprolol Tartrate 25 Mg Tablet) 12.5 mg PO BID [facility] Nitroglycerin (Nitroglycerin (Inpatient Use) 0.4 Mg Tab.Subl) 0.4 mg SUBLINGUAL Q5M PRN PRN Reason: chest pain Ondansetron HCl (Ondansetron 4 Mg/2 Ml Vial) 4 mg IV Q8H PRN PRN PRN Reason: NAUSEA/VOMITING Pantoprazole Sodium (Pantoprazole Sodium 40 Mg Tablet) 40 mg PO DAILY [facility] Last Admin: 01/21/20 09:19 Dose: 40 mg Documented by: Pyridoxine HCl (Pyridoxine Hcl 50 Mg Tablet) [facility] Last Admin: 01/21/20 09:19 Dose: 50 mg Documented by: Sodium Chloride (0.9% Saline Lock 10 Ml Syringe) 10 - 40 ml IV UD PRN PRN Reason: SALINE FLUSH STROKE Vital Signs/Narrative: Vital Signs Pulse Resp BP Pulse Ox 01/21/20 14:58 84 01/21/20 12:09 94 01/21/20 11:59 87 26 H 103/70 95 01/21/20 11:12 96 27 H 98/61 93 Assessment/Plan Patient seen by Jayme Morgan PA-C under my supervision Patient seen and examined. She was admitted with a complaint of palpitations and found to be in A. fib with RVR. She is on Cardizem drip and is for cardioversion today. Patient had no complaints at time of review and felt well. Review of symptoms otherwise negative. O/E: Vital Signs Temp Pulse Resp BP Pulse Ox 98.6 F 84 26 H 103/70 95 01/21/20 08:00 01/21/20 14:58 01/21/20 11:59 01/21/20 11:59 01/21/20 11:59 General: Alert, Oriented x3, Cooperative HEENT: Atraumatic, PERRLA, EOMI, Normocephalic Neck: Supple, No JVD, Negative Carotid Bruits Lungs: Clear to auscultation, Normal air movement Cardiovascular: No murmurs, Irregular Rate, afib, mildly tachycardic Abdomen: Bowel Sounds Present, Soft, Non Tender Extremities: No edema, Capillary Refill Less than 3 Seconds Skin: No rashes, No breakdown Musculoskeletal: No Tenderness to Palpation of Joints or Extremities Neurological: Cranial nerves II-XII grossly intact Psych/Mental Status: Normal Affect, Appropriate, Alert and oriented to time, place, person, mood and affect Plan is for DC cardioversion today, then for likely discharge afterwards. Continue metoprolol and eliquis. Rest as per Jayme Morgan PA-C's note which I reviewed and endorsed. Inpatient E&M: 38484 Subs Hosp L2
--- NOTE | 2020-01-21 13:31 | CARDIOVERS ---
Cardioversion Cardioversion: The patient was brought to the cardiac catheterization lab in the postabsorptive nonsedated state. EKG confirmed atrial flutter. Patient has been on anticoagulation for at least 4 weeks. Informed consent was obtained. The patient was seen by Dr. Coto of the critical care division. Anterior-posterior pads were applied. 40 mg of intravenous propofol was administered in 200 J of synchronized DC biphasic energy were applied. The patient promptly converted back to an AV sequentially paced rhythm. Patient tolerated the procedure well. Conclusion: Successful DC cardioversion from atrial flutter. DC IV Cardizem. Start oral amiodarone 200 mg twice a day for 2 weeks and then 200 mg daily. Continue oral beta-virgilio. Continue anticoagulation. Can probably DC home later today.
--- NOTE | 2020-01-21 13:45 | PRO.PCM_ITS ---
Procedure Report Date of Procedure: 01/21/20 CONSCIOUS SEDATION REPORT DATE OF SERVICE: January 21, 2020 BRIEF HISTORY OF PRESENT ILLNESS: The patient is an 84-year-old female, currently admitted to [facility] after presenting with shortness of breath and heart palpitations. The patient was subsequently found to be in atrial fibrillation with a rapid ventricular rate. The patient has been medically managed by cardiology. Her most recent surface echocardiogram revealed an ejection fraction of 65%. The patient is currently anticoagulated on Eliquis. She denies any previous known anesthetic complications. PHYSICAL EXAMINATION: VITAL SIGNS: Reviewed and were acceptable. GENERAL: The patient is a female, in no apparent distress, speaking in full sentences. HEENT: Normocephalic, atraumatic. Mucous membranes are moist and pink. Good mouth opening noted. Trachea is midline. Good neck mobility. CHEST: S1, S2 irregularly irregular. No murmurs, rubs or gallops were noted. LUNGS: Clear to auscultation bilaterally without appreciable wheezes, rales or rhonchi. ABDOMEN: Soft, nontender, nondistended. Positive bowel sounds. EXTREMITIES: There is no clubbing, cyanosis or edema. ASA Class: II DESCRIPTION OF PROCEDURE: After confirmation of informed consent, the patient's anesthesia plan was revie wed in detail. Propofol was chosen. Risks and benefits were reviewed and the patient agreed to proceed. At 1326, the patient was given 40 mg of propofol. The patient achieved an appropriate level of sedation and was given a 200 joule synchronized cardioversion by Dr. Abbasi at the bedside. This was successful in achieving normal sinus rhythm. The patient was monitored until 1336, at which time she reached her baseline mental status and function. The patient tolerated the procedure well. COMPLICATIONS: None ESTIMATED BLOOD LOSS: None RECOMMENDATIONS: Okay to recover in usual fashion. [id number]: Other Procedure See Report - [id number]
--- NOTE | 2020-01-21 13:57 | DCINST_ITS ---
- Discharge Diagnoses Current Active Problems: Current Active and Chronic Problems (Last Reviewed 01/20/20 @ 19:[address] 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) Essential (primary) hypertension (Chronic) Hyperlipidemia (Chronic) You will use the following diet at home:: Cardiac Your food should be the consistency of: Regular Your liquids should be the consistency of: Regular/Thin Discharge Activity: Return to Normal Activity Allergies/Adverse Reactions: Allergies Penicillins [PCN] Allergy (Verified 01/20/20 18:03) Hives aspirin Adverse Reaction (Severe, Verified 01/20/20 15:58) Severe GI upset atorvastatin Adverse Reaction (Severe, Verified 01/20/20 15:58) elevated liver enzymes metformin Adverse Reaction (Verified 01/20/20 18:03) gi upset Medications to take at Discharge Cholecalciferol (VIT D3) [Vitamin D3] 1,000 unit PO DAILY 04/16/15 Levothyroxine Sodium [Unithroid] 50 mcg PO DAILY 04/16/15 Ipratropium/Albuterol Respimat [Combivent Respimat Inhal [place]] 1 puff INHALATION BID 12/01/16 Ipratropium/Albuterol Sulfate [Duoneb] 3 ml INHALATION BID PRN 05/30/17 lisinopril 10 mg tablet 10 mg PO DAILY #90 tab 06/08/17 lansoprazole 30 mg capsule,delayed release 1 tab PO DAILY 90 Days #90 cap 07/23/18 nitroglycerin 0.4 mg sublingual tablet 0.4 mg SUBLINGUAL Q5-15M PRN #25 tab 08/03/18 Apixaban [Eliquis] 5 mg PO BID 01/20/20 Atorvastatin Calcium [Lipitor] 20 mg PO QHS 01/20/20 Metoprolol Tartrate 12.5 mg PO BID 01/20/20 Pyridoxine HCl [Vitamin B6] 50 mg PO DAILY 01/20/20 Amiodarone HCl [Cordarone] 200 mg PO BID #42 tab 01/21/20 The following prescriptions were given: Amiodarone HCl [Cordarone] 200 mg PO BID #42 tab Transmission Status: Pending to [facility]/pharmacy #[id number] Primary Care Physician: Jian Savage MD [Primary Care Provider] - Please follow up with your Primary Care Physician in: 1-2 weeks Test Results: Test results from this visit will be discussed in further detail at your follow- up appointment, if applicable. Please Follow Up With: Pako Abbasi MD When: as directed Proposed Discharge Date: 01/21/20
--- NOTE | 2020-01-21 13:58 | DS.PCM_ITS ---
<Jayme Morgan - Last Filed: 01/21/20 13:58> Discharge Date and Diagnosis - Problem List Patient Problems: Active and Suspected Problems (Last Reviewed 01/20/20 @ 19:[address] Myriam Odell DO) Atrial fibrillation with rapid ventricular response (Acute) Date of Admission: 01/20/20 Date of Discharge: 01/21/20 - Primary Discharge Diagnosis Acute Problems: Active Problems (Last Reviewed 01/20/20 @ 19:[address] Myriam Odell DO) Atrial fibrillation, atrial flutter, with rapid ventricular response (Acute) status post successful DC cardioversion. - Secondary Discharge Diagnosis Chronic Problems: Chronic Problems (Last Reviewed 01/20/20 @ 19:[address] 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 There is no evidence of acute chest disease. Consults: [place] - Cardiology [facility] - critical care Operations: None Procedures: Cardioversion Summary of Care Provided: Hospital course: The patient is a 84 year old F past medical history of paroxysmal atrial fibrillation, sick sinus syndrome, heart block, status post pacemaker placement, who presented to the emergency room with complaints of increased fatigue, shor tness of breath, palpitations. She was at her PCPs office and found to have atrial fibrillation with rapid ventricular response and subsequently sent to the emergency room. She was started on a Cardizem drip and admitted to the PCU. She appeared to have atrial flutter on the monitor. Cardiology was consulted. She underwent a DC cardioversion successfully. She was placed on amiodarone 200 twice daily for 2 weeks followed by 200 once daily. Her metoprolol and Eliquis will be continued. She was discharged home in stable condition. Follow-up with cardiology as directed, follow-up with PCP in 1 to 2 weeks. This patient was seen by Jayme Morgan PA-C under the supervision of Doctor []. [] Patient Problems: Active and Suspected Problems (Last Reviewed 01/20/20 @ 19:[address] Myriam Odell, DO) Atrial fibrillation with rapid ventricular response (Acute) - Physical Exam Vitals/I&O's: Vital Signs Temp Pulse Resp BP Pulse Ox 98.6 F 94 26 H 103/70 95 01/21/20 08:00 01/21/20 12:09 01/21/20 11:59 01/21/20 11:59 01/21/20 11:59 Oxygen Delivery Method Room Air Weight: 138 lb 14.259 oz Body Mass Index (BMI) 22.7 Intake and Output for Last 24 Hours 01/19/20 01/20/20 01/21/20 23:59 23:59 23:59 Intake Total 247.08 / 257.08 129.83 / 129.83 Balance 247.08 / 257.08 129.83 / 129.83 General: Alert, Oriented x3, Cooperative HEENT: Atraumatic, PERRLA, EOMI, Normocephalic Neck: Supple, No JVD, Negative Carotid Bruits Lungs: Clear to auscultation, Normal air movement Cardiovascular: Regular rate, No murmurs Abdomen: Bowel Sounds Present, Soft, Non Tender Extremities: No edema, Capillary Refill Less than 3 Seconds Skin: No rashes, No breakdown Musculoskeletal: No Tenderness to Palpation of Joints or Extremities Neurological: Cranial nerves II-XII grossly intact Psych/Mental Status: Normal Affect, Appropriate Laboratory Results 01/20/20 16:15: WBC 9.9, RBC 4.24, Hgb 13.4, Hct 40.9, MCV 96.5, MCH 31.6, MCHC 32.8, RDW Std Deviation 44.4 H, RDW Coeff of Guy 12.6, Plt Count 285, MPV 9.7, Immature Gran % (Auto) 0.200, Neut % (Auto) 73.0 H, Lymph % (Auto) 20.3, [place] % (Auto) 5.4, Eos % (Auto) 0.7, Baso % (Auto) 0.4, Absolute Neuts (auto) 7.3, Absolute Lymphs (auto) 2.02, Nucleated RBC % 0 01/20/20 16:15: PT 17.0 H, INR 1.4, APTT 37.3 H 01/20/20 16:15: Sodium 137, Potassium 4.2, Chloride 104, Carbon Dioxide 28.0, Anion Gap 5, BUN 11, Creatinine 1.09 H, Estim Creat Clear Calc 35.81, Est GFR (MDRD) Af Amer 62, Est GFR (MDRD) Non-Af 51 L, BUN/Creatinine Ratio 10.1, Glucose 95, Calcium 9.3, Total Bilirubin 0.60, AST 24, ALT 25, Alkaline Phosphatase 105, Troponin I < 0.015, Total Protein 7.8, Albumin 3.9, Globulin 3.9, Albumin/Globulin Ratio 1.0 01/20/20 16:15: B-Natriuretic Peptide 289.4 H 01/21/20 05:18: WBC 9.6, RBC 3.95 L, Hgb 12.4, Hct 38.5, MCV 97.5, MCH 31.4, MCHC 32.2, RDW Std Deviation 44.3 H, RDW Coeff of Guy 12.4, Plt Count 233, MPV 9.3, Immature Gran % (Auto) 0.200, Neut % (Auto) 73.1 H, Lymph % (Auto) 18.7 L, [place] % (Auto) 6.5, Eos % (Auto) 1.1, Baso % (Auto) 0.4, Absolute Neuts (auto) 7.0, Absolute Lymphs (auto) 1.79, Nucleated RBC % 0 01/21/20 05:18: Sodium 139, Potassium 4.2, Chloride 108 H, Carbon Dioxide 25.0, Anion Gap 6, BUN 12, Creatinine 0.94, Estim Creat Clear Calc 41.52, Est GFR (MDRD) Af Amer 73, Est GFR (MDRD) Non-Af 60, BUN/Creatinine Ratio 12.7, Glucose 101, Calcium 9.0, Phosphorus 3.7, Magnesium 1.8, Total Bilirubin 0.80, AST 19, ALT 22, Alkaline Phosphatase 91, Total Protein 6.9, Albumin 3.3, Globulin 3.6, Albumin/Globulin Ratio 0.9, TSH 1.98 Current Medications Acetaminophen (Acetaminophen 325 Mg Tablet) 650 mg PO Q6H PRN PRN PRN Reason: Pain Score 1-10/Temp > 100.7 F Al Hydroxide/Mg Hydroxide (Mag Hydrox/Al Hydrox/Simeth 30 Ml Udc) 30 ml PO Q6H PRN PRN PRN Reason: Gastric Burning Albuterol Sulfate (Albuterol 2.5 Mg/3 Ml Vial.Neb.) 2.5 mg INHALATION Q2H PRN PRN PRN Reason: SOB/Wheezing Albuterol/Ipratropium (Ipratropium/Albuterol Sulfate 3 Ml Ampul.Neb) 3 ml INHALATION BID.RT [facility] Last Admin: 01/21/20 07:50 Dose: 3 ml Documented by: Amiodarone HCl (Amiodarone 200 Mg Tablet) 200 mg PO BID [facility] Last Admin: 01/21/20 09:19 Dose: 200 mg Documented by: Apixaban (Apixaban 5 Mg Tablet) 5 mg PO BID [facility] Last Admin: 01/21/20 09:19 Dose: 5 mg Documented by: Atorvastatin Calcium (Atorvastatin Calcium 20 Mg Tablet) 20 mg PO QHS [facility] Last Admin: 01/20/20 22:03 Dose: 20 mg Documented by: Cholecalciferol (Cholecalciferol (Vit D3) 1,000 Unit (25mcg)) 1,[facility] Last Admin: 01/21/20 09:19 Dose: 1,000 unit Documented by: Sodium Chloride () 500 mls @ 0 mls/hr IV .Q0M [facility] Levothyroxine Sodium (Levothyroxine 50 Mcg Tablet) 50 mcg PO DAILY@0600 [facility] Last Admin: 01/21/20 05:53 Dose: 50 mcg Documented by: Lisinopril (Lisinopril 10 Mg Tablet) 10 mg PO DAILY [facility] Last Admin: 01/21/20 09:19 Dose: 10 mg Documented by: Metoprolol Tartrate (Metoprolol Tartrate 25 Mg Tablet) 12.5 mg PO BID [facility] Nitroglycerin (Nitroglycerin (Inpatient Use) 0.4 Mg Tab.Subl) 0.4 mg SUBLINGUAL Q5M PRN PRN Reason: chest pain Ondansetron HCl (Ondansetron 4 Mg/2 Ml Vial) 4 mg IV Q8H PRN PRN PRN Reason: NAUSEA/VOMITING Pantoprazole Sodium (Pantoprazole Sodium 40 Mg Tablet) 40 mg PO DAILY [facility] Last Admin: 01/21/20 09:19 Dose: 40 mg Documented by: Pyridoxine HCl (Pyridoxine Hcl 50 Mg Tablet) [facility] Last Admin: 01/21/20 09:19 Dose: 50 mg Documented by: Sodium Chloride (0.9% Saline Lock 10 Ml Syringe) 10 - 40 ml IV UD PRN PRN Reason: SALINE FLUSH Discharge Diet: Low fat/ Low Cholesterol, 2000 mg Sodium Diet Discharge Activity: Return to Normal Activity Home Medications: Medications to take at Discharge Cholecalciferol (VIT D3) [Vitamin D3] 1,000 unit PO DAILY 04/16/15 Levothyroxine Sodium [Unithroid] 50 mcg PO DAILY 04/16/15 Ipratropium/Albuterol Respimat [Combivent Respimat Inhal [place]] 1 puff INHALATION BID 12/01/16 Ipratropium/Albuterol Sulfate [Duoneb] 3 ml INHALATION BID PRN 05/30/17 lisinopril 10 mg tablet 10 mg PO DAILY #90 tab 06/08/17 lansoprazole 30 mg capsule,delayed release 1 tab PO DAILY 90 Days #90 cap 07/23/18 nitroglycerin 0.4 mg sublingual tablet 0.4 mg SUBLINGUAL Q5-15M PRN #25 tab 08/03/18 Apixaban [Eliquis] 5 mg PO BID 01/20/20 Atorvastatin Calcium [Lipitor] 20 mg PO QHS 01/20/20 Metoprolol Tartrate 12.5 mg PO BID 01/20/20 Pyridoxine HCl [Vitamin B6] 50 mg PO DAILY 01/20/20 Amiodarone HCl [Cordarone] 200 mg PO BID #42 tab 01/21/20 Following Prescriptions Were Given to Patient: Amiodarone HCl [Cordarone] 200 mg PO BID #42 tab Transmission Status: Received by [facility]/pharmacy #[id number] Primary Care Physician: Jian Savage MD [Primary Care Provider] - Please follow up with your Primary Care Physician in: 1-2 weeks Please Follow Up With: Pako Abbasi MD When: as directed Disposition: Home Minutes spent on discharge:: 35 Patient Condition:: Stable Medical Necessity - Tobacco Use Smoking Status: Former smoker Tobacco Use: Cigarettes Meaningful Use Info Meaningful Use Diagnoses (Choose all that apply): None applicable <Winnie Segundo - Last Filed: 01/21/20 15:02> Discharge Date and Diagnosis - Primary Discharge Diagnosis Acute Problems: Active Problems (Last Reviewed 01/20/20 @ 19:[address] Myriam Odell DO) Atrial fibrillation with rapid ventricular response (Acute) - Secondary Discharge Diagnosis Chronic Problems: Chronic Problems (Last Reviewed 01/20/20 @ 19:[address] 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 fib as well as sick sinus syndrome s/p pacemaker placement. She was admitted through the ED on 01/20/2020 with complaint of increasing fatigue, shortness of breath and palpitations. She was found to be in A. fib with RVR in her PCPs office and was subsequently sent to the ED. She was started on Cardizem drip and admitted and managed for A. fib with RVR. Cardiology was consulted. Patient had DC cardioversion done on 01/21/2020 and this was successful. Patient was placed on amiodarone 200 mg twice daily for 2 weeks to be followed by 200 mg daily. She is continue her metoprolol and Eliquis. She remained stable and was discharged on 01/21/2020. She is follow-up with cardiology and with her primary care doctor in 1 to 2 weeks. Patient seen and examined prior to discharge. She had no complaints and felt well. Review of symptoms otherwise negative. Palpitations have resolved. Labs and vitals reviewed. Home medication reviewed and reconciled. O/E: Vital Signs Temp Pulse Resp BP Pulse Ox 98.6 F 84 26 H 103/70 95 01/21/20 08:00 01/21/20 14:58 01/21/20 11:59 01/21/20 11:59 01/21/20 11:59 [] General: Alert, Oriented x3, Cooperative HEENT: Atraumatic, PERRLA, EOMI, Normocephalic Neck: Supple, No JVD, Negative Carotid Bruits Lungs: Clear to auscultation, Normal air movement Cardiovascular: No murmurs, Irregular Rate Abdomen: Bowel Sounds Present, Soft, Non Tender Extremities: No edema, Capillary Refill Less than 3 Seconds Skin: No rashes, No breakdown Musculoskeletal: No Tenderness to Palpation of Joints or Extremities Neurological: Cranial nerves II-XII grossly intact Psych/Mental Status: Normal Affect, Appropriate, Alert and oriented to time, place, person, mood and affect Plan is for discharge home today. Patient improved much more quickly than expected and so was discharged on 01/21/2020. Rest as per Jayme Morgan PA-C's notes which I reviewed and endorsed. - Physical Exam Vitals/I&O's: Vital Signs Temp Pulse Resp BP Pulse Ox 98.6 F 94 26 H 103/70 95 01/21/20 08:00 01/21/20 12:09 01/21/20 11:59 01/21/20 11:59 01/21/20 11:59 Oxygen Delivery Method Room Air Weight: 138 lb 14.259 oz Body Mass Index (BMI) 22.7 Intake and Output for Last 24 Hours 01/19/20 01/20/20 01/21/20 23:59 23:59 23:59 Intake Total 247.08 / 257.08 129.83 / 129.83 Balance 247.08 / 257.08 129.83 / 129.83 Laboratory Results 01/20/20 16:15: WBC 9.9, RBC 4.24, Hgb 13.4, Hct 40.9, MCV 96.5, MCH 31.6, MCHC 32.8, RDW Std Deviation 44.4 H, RDW Coeff of Guy 12.6, Plt Count 285, MPV 9.7, Immature Gran % (Auto) 0.200, Neut % (Auto) 73.0 H, Lymph % (Auto) 20.3, [place] % (Auto) 5.4, Eos % (Auto) 0.7, Baso % (Auto) 0.4, Absolute Neuts (auto) 7.3, Absolute Lymphs (auto) 2.02, Nucleated RBC % 0 01/20/20 16:15: PT 17.0 H, INR 1.4, APTT 37.3 H 01/20/20 16:15: Sodium 137, Potassium 4.2, Chloride 104, Carbon Dioxide 28.0, Anion Gap 5, BUN 11, Creatinine 1.09 H, Estim Creat Clear Calc 35.81, Est GFR (MDRD) Af Amer 62, Est GFR (MDRD) Non-Af 51 L, BUN/Creatinine Ratio 10.1, Glucose 95, Calcium 9.3, Total Bilirubin 0.60, AST 24, ALT 25, Alkaline Phosphatase 105, Troponin I < 0.015, Total Protein 7.8, Albumin 3.9, Globulin 3.9, Albumin/Globulin Ratio 1.0 01/20/20 16:15: B-Natriuretic Peptide 289.4 H 01/21/20 05:18: WBC 9.6, RBC 3.95 L, Hgb 12.4, Hct 38.5, MCV 97.5, MCH 31.4, MCHC 32.2, RDW Std Deviation 44.3 H, RDW Coeff of Guy 12.4, Plt Count 233, MPV 9.3, Immature Gran % (Auto) 0.200, Neut % (Auto) 73.1 H, Lymph % (Auto) 18.7 L, [place] % (Auto) 6.5, Eos % (Auto) 1.1, Baso % (Auto) 0.4, Absolute Neuts (auto) 7.0, Absolute Lymphs (auto) 1.79, Nucleated RBC % 0 01/21/20 05:18: Sodium 139, Potassium 4.2, Chloride 108 H, Carbon Dioxide 25.0, Anion Gap 6, BUN 12, Creatinine 0.94, Estim Creat Clear Calc 41.52, Est GFR (MDRD) Af Amer 73, Est GFR (MDRD) Non-Af 60, BUN/Creatinine Ratio 12.7, Glucose 101, Calcium 9.0, Phosphorus 3.7, Magnesium 1.8, Total Bilirubin 0.80, AST 19, ALT 22, Alkaline Phosphatase 91, Total Protein 6.9, Albumin 3.3, Globulin 3.6, Albumin/Globulin Ratio 0.9, TSH 1.98 Current Medications Acetaminophen (Acetaminophen 325 Mg Tablet) 650 mg PO Q6H PRN PRN PRN Reason: Pain Score 1-10/Temp > 100.7 F Al Hydroxide/Mg Hydroxide (Mag Hydrox/Al Hydrox/Simeth 30 Ml Udc) 30 ml PO Q6H PRN PRN PRN Reason: Gastric Burning Albuterol Sulfate (Albuterol 2.5 Mg/3 Ml Vial.Neb.) 2.5 mg INHALATION Q2H PRN PRN PRN Reason: SOB/Wheezing Albuterol/Ipratropium (Ipratropium/Albuterol Sulfate 3 Ml Ampul.Neb) 3 ml INHALATION BID.RT [facility] Last Admin: 01/21/20 07:50 Dose: 3 ml Documented by: Amiodarone HCl (Amiodarone 200 Mg Tablet) 200 mg PO BID [facility] Last Admin: 01/21/20 09:19 Dose: 200 mg Documented by: Apixaban (Apixaban 5 Mg Tablet) 5 mg PO BID [facility] Last Admin: 01/21/20 09:19 Dose: 5 mg Documented by: Atorvastatin Calcium (Atorvastatin Calcium 20 Mg Tablet) 20 mg PO QHS [facility] Last Admin: 01/20/20 22:03 Dose: 20 mg Documented by: Cholecalciferol (Cholecalciferol (Vit D3) 1,000 Unit (25mcg)) 1,000 unit [facility] Last Admin: 01/21/20 09:19 Dose: 1,000 unit Documented by: Sodium Chloride () 500 mls @ 0 mls/hr IV .Q0M [facility] Levothyroxine Sodium (Levothyroxine 50 Mcg Tablet) 50 mcg PO DAILY@0600 [facility] Last Admin: 01/21/20 05:53 Dose: 50 mcg Documented by: Lisinopril (Lisinopril 10 Mg Tablet) 10 mg PO DAILY [facility] Last Admin: 01/21/20 09:19 Dose: 10 mg Documented by: Metoprolol Tartrate (Metoprolol Tartrate 25 Mg Tablet) 12.5 mg PO BID [facility] Nitroglycerin (Nitroglycerin (Inpatient Use) 0.4 Mg Tab.Subl) 0.4 mg SUBLINGUAL Q5M PRN PRN Reason: chest pain Ondansetron HCl (Ondansetron 4 Mg/2 Ml Vial) 4 mg IV Q8H PRN PRN PRN Reason: NAUSEA/VOMITING Pantoprazole Sodium (Pantoprazole Sodium 40 Mg Tablet) 40 mg PO DAILY [facility] Last Admin: 01/21/20 09:19 Dose: 40 mg Documented by: Pyridoxine HCl (Pyridoxine Hcl 50 Mg Tablet) 50 mg [facility]ILY[facility] Last Admin: 01/21/20 09:19 Dose: 50 mg Documented by: Sodium Chloride (0.9% Saline Lock 10 Ml Syringe) 10 - 40 ml IV UD PRN PRN Reason: SALINE FLUSH Inpatient E&M: [id number] Disch Hosp
--- NOTE | 2020-01-21 15:00 | NURSING ---
[place] dc'renetta [facility] [employer] at 1310.
--- NOTE | 2020-01-22 15:55 | CASEMGMT ---
JO VARELA Discharge F/U Phone Call LACE: Silvano Strata: 3 Discharge date: 01/21/2020 Call date: 01/22/2020 Call time: [phone] Admission dx: Afib w/ RVR Pt states has been doing 'pretty good' since discharge. Pt states she has been checking her blood pressure and it has been 'alright.' Pt states no questions regarding discharge instructions/medications at this time. Pt states will schedule f/u with PCP as directed. Pt states no suggestions for [facility] at this time and states 'It was terrific, you all were a lot of fun and made me laugh.' Pt voices no further questions/concerns/needs at this time. [place] JO VARELA
== END 2020-01-21 13:57 | disposition home or self-care (01) | DRG 310 ==
LOC: ED 18:36 → PCU 20:30
PROVIDERS: Admitting Provider Internal Medicine; Emergency Provider Emergency Medicine; PCP Family Medicine; Visit Provider Student in an Organized Health Care Education/Training Program
DX: I48.0 Paroxysmal atrial fibrillation (principal); I10 Essential (primary) hypertension; E78.5 Hyperlipidemia, unspecified; K21.9 Gastro-esophageal reflux disease without esophagitis; J44.9 Chronic obstructive pulmonary disease, unspecified; Z95.0 Presence of cardiac pacemaker; Z95.5 Presence of coronary angioplasty implant and graft; E03.9 Hypothyroidism, unspecified; I48.92 Unspecified atrial flutter; R00.2 Palpitations; I65.23 Occlusion and stenosis of bilateral carotid arteries; I44.2 Atrioventricular block, complete; Z79.01 Long term (current) use of anticoagulants; Z79.890 Hormone replacement therapy; I25.10 Atherosclerotic heart disease of native coronary artery without angina pectoris; Z79.899 Other long term (current) drug therapy; Z82.3 Family history of stroke; Z82.49 Family history of ischemic heart disease and other diseases of the circulatory system; Z83.3 Family history of diabetes mellitus; Z86.711 Personal history of pulmonary embolism; Z90.49 Acquired absence of other specified parts of digestive tract; Z90.710 Acquired absence of both cervix and uterus
CPT/HCPCS: 71045; 80053; 83735; 83880; 84100; 84443; 84484; 85025; 85610; 85730; 92960; 93005; 94640; 99251; 99284; J7040; A4216; G0463

== ENCOUNTER → 2020-01-28 17:42 | Outpatient (CLI) | payer MEDICARE, SELFPAY ==
[2017-06-01 08:52] VITALS: BMI 24.1
[2020-01-20 20:34] VITALS: BMI 22.7
== END ==
PROVIDERS: PCP Family Medicine; Referring Provider Family Medicine; Visit Provider Family Medicine
DX: R30.0 Dysuria (principal)
CPT/HCPCS: 87077; 87086; 87088; 87186

== ENCOUNTER → 2020-03-18 11:09 | Outpatient (CLI) | payer MEDICARE, SELFPAY ==
[2017-06-01 08:52] VITALS: BMI 24.1
[2020-01-20 20:34] VITALS: BMI 22.7
[2020-03-18 13:01] LABS: ALB/GLOB Ratio 0.7 RATIO (0.9-2.4); AST(SGOT) 13 U/L (15-37); Alanine Aminotransfer ALT/SGPT 13 U/L (13-56); Albumin, Serum 3.2 g/dL (3.2-5.0); Alkaline Phosphatase 89 U/L (45-117); Anion Gap 8 (5-15); BUN 22 mg/dL (7-18); BUN/Creat Ratio 15.5 RATIO (10-20); Calcium,Total 9.5 mg/dL (8.5-10.1); Chloride 102 mmol/L (98-107); Creatinine, Serum 1.42 mg/dL (0.55-1.02); EST Glomerular Filtration Rate 38 mL/min (>60); Est Glom Filt Rate - Afr Amer 46 mL/min (>60); Globulin 4.8 g/dL (2.2-4.2); Glucose 79 mg/dL (74-106); Potassium 4.3 mmol/L (3.5-5.1); Sodium Level 136 mmol/L (136-145); Thyroid Stim Hormone (TSH) 5.56 uIU/mL (0.358-3.74)
== END ==
PROVIDERS: PCP Family Medicine; Visit Provider Family Medicine
DX: I48.91 Unspecified atrial fibrillation (principal)
CPT/HCPCS: 36415; 80053; 84443

== ENCOUNTER → 2020-04-06 11:26 | Outpatient (CLI) | payer MEDICARE, SELFPAY ==
[2017-06-01 08:52] VITALS: BMI 24.1
[2020-04-06 10:28] VITALS: BMI 22.6
[2020-04-06 13:02] LABS: AST(SGOT) 17 U/L (15-37); Alanine Aminotransfer ALT/SGPT 16 U/L (13-56); Albumin, Serum 3.5 g/dL (3.2-5.0); Alkaline Phosphatase 99 U/L (45-117); Anion Gap 4 (5-15); BUN 19 mg/dL (7-18); BUN/Creat Ratio 16.5 RATIO (10-20); Bilirubin, Direct 0.18 mg/dL (0.00-0.30); Calcium,Total 9.5 mg/dL (8.5-10.1); Chloride 106 mmol/L (98-107); Creatinine, Serum 1.15 mg/dL (0.55-1.02); EST Glomerular Filtration Rate 48 mL/min (>60); Est Glom Filt Rate - Afr Amer 58 mL/min (>60); Globulin 4.1 g/dL (2.2-4.2); Glucose 86 mg/dL (74-106); Potassium 4.4 mmol/L (3.5-5.1); Protein, Total 7.6 g/dL (6.4-8.2); Sodium Level 139 mmol/L (136-145)
== END ==
PROVIDERS: PCP Family Medicine; Visit Provider Internal Medicine Cardiovascular Disease
DX: I48.92 Unspecified atrial flutter (principal); Z95.0 Presence of cardiac pacemaker; I21.4 Non-ST elevation (NSTEMI) myocardial infarction; I10 Essential (primary) hypertension; E78.5 Hyperlipidemia, unspecified
CPT/HCPCS: 36415; 80048; 80076

== ENCOUNTER 2020-04-19 10:14 | Day surgery (SDC) | payer MEDICARE, SELFPAY ==
[2017-06-01 08:52] VITALS: BMI 24.1
[2020-04-06 10:28] VITALS: BMI 22.6
[2020-04-16 11:27] VITALS: BMI 22.6
--- NOTE | 2020-04-19 06:46 | HP_ITS ---
HPI HPI History of Present Illness Details: MICK CHINCHILLA, is a 84 F who presents to the office today for a cardiovascular outpatient follow-up. She has a history of coronary artery disease status post drug-eluting stent to LCx in May 2017, status post permanent pacemaker placement, hypertension, and hyperlipidemia. She tells me that she has had a rough couple of months where she actually presented to the emergency room in July of 2019 with dizziness and feeling like she was going to pass out. She had had respiratory symptoms in May she talked to her doctor who put her on quarantine for 2 weeks and never tested her for the virus. She really did not run any fever she just felt generalized weakness. On that day when she presented to the emergency room she was evaluated she was noted to have an elevated d-dimer underwent a CAT scan which demonstrated a small nonocclusive thrombus present in the right lower lobe and her aspirin and clopidogrel were discontinued and she was put on Eliquis. You do remember that her previous echocardiogram had demonstrated an ejection fraction of 65% with no wall motion abnormalities noted. Her major complaint at this time is that she feels that her urine is discolored and then she also gets weakness and poor balance in the morning. Her TSH was noted to be elevated. Intake Vital Signs 04/06/20 BP 153/92 H 04/06/20 Position Standing 04/06/20 Pulse 80 04/06/20 Height 5 ft 5 in 04/06/20 Weight: 136 lb 04/06/20 BMI 22.6 04/06/20 BP 162/96 H 04/06/20 Position Sitting 04/06/20 Respiration 16 04/06/20 Pulse 80 04/06/20 Pulse Oximetry (%) 97 Intake Visit Reasons: 6 M FU Allergies Penicillins [PCN] Allergy (Verified 01/20/20 18:03) Hives aspirin Adverse Reaction (Severe, Verified 01/20/20 15:58) Severe GI upset atorvastatin Adverse Reaction (Severe, Verified 01/20/20 15:58) elevated liver enzymes metformin Adverse Reaction (Verified 01/20/20 18:03) gi upset Medications Cholecalciferol (VIT D3) [Vitamin D3] 1,000 unit PO DAILY 04/16/15 [History Confirmed 04/06/20] Levothyroxine Sodium [Unithroid] 50 mcg PO DAILY 04/16/15 [History Confirmed 04/06/20] Ipratropium/Albuterol Respimat [Combivent Respimat Inhal [place]] 1 puff INHALATION BID 12/01/16 [History Confirmed 04/06/20] Ipratropium/Albuterol Sulfate [Duoneb] 3 ml INHALATION BID PRN 05/30/17 [History Confirmed 04/06/20] lisinopril 10 mg tablet 10 mg PO DAILY #90 tab 06/08/17 [Rx Confirmed 04/06/20] lansoprazole 30 mg capsule,delayed release 1 tab PO DAILY 90 Days #90 cap 07/23/18 [History Confirmed 04/06/20] nitroglycerin 0.4 mg sublingual tablet 0.4 mg SUBLINGUAL Q5-15M PRN #25 tab 08/03/18 [Rx Confirmed 04/06/20] Pyridoxine HCl [Vitamin B6] 50 mg PO DAILY 01/20/20 [History Confirmed 01/20/20] apixaban 5 mg tablet 5 mg PO BID #180 tab 02/21/20 [Rx Confirmed 04/06/20] amiodarone 200 mg tablet 200 mg PO DAILY #60 tab 04/06/20 [Rx Confirmed 04/06/20] atorvastatin 40 mg tablet 20 mg PO .QOD tab 04/06/20 [History Confirmed 04/06/20] metoprolol tartrate 25 mg tablet 25 mg PO BID tab 04/06/20 [History Confirmed 04/06/20] Ejection fraction %: 65 to 70 PFSH Medical History Atherosclerotic heart disease of [place] coronary artery without angina pectoris (Chronic) NSTEMI (non-ST elevated myocardial infarction) (Resolved 05/30/17) Complete heart block (Chronic) Sick sinus syndrome (Chronic) 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) Atrial fibrillation with rapid ventricular response (Resolved 01/21/20) Paroxysmal atrial fibrillation (Chronic) Paroxysmal atrial flutter (Chronic) Right pulmonary embolus (Resolved 08/17/19) Bilateral carotid artery stenosis (Chronic) Essential (primary) hypertension (Chronic) Hyperlipidemia (Chronic) Anxiety (Chronic) Bone spur of foot (Chronic) COPD (chronic obstructive pulmonary disease) (Chronic) Diverticulosis (Chronic) GERD (gastroesophageal reflux disease) (Chronic) Ganglion cyst of left foot (Chronic) Hypothyroidism (Chronic) Lichen sclerosus (Chronic) Osteoarthritis (Chronic) Dizziness and giddiness (Inactive) Fatigue (Inactive) Intermittent chest pain (Inactive) Nonrheumatic mitral (valve) prolapse (Inactive) Surgical History History of coronary artery stent placement (Resolved 05/31/17) Presence of permanent cardiac pacemaker (Chronic 04/19/15) H/O bladder repair surgery (Resolved) H/O excision of ganglion cyst (Resolved) History of appendectomy (Resolved) History of back surgery (Resolved) History of cardioversion (Resolved 01/21/20) History of carpal tunnel release (Resolved) History of hysterectomy (Resolved) History of left heart catheterization (Resolved 09/10/17) Family History Father Cancer lung cancer Heart disease Mother CVA (cerebral vascular accident) Hypertension Sister Hypertension Cancer lung cancer Son Diabetes Hypertension Myocardial infarction, Onset Age: 48 Social History (Updated 04/06/20 @ 11:[address] Pako Abbasi MD) Smoking Status: Former smoker ROS Const Const: Negative for fatigue, weakness, headache(s), frequent falls, difficulty sleeping or excessive sweating Eyes Eyes: Negative for loss of peripheral vision, transient loss of vision, blurry vision, double vision or tunnel vision ENT ENT: Positive for dizziness (improving since amio decreased to 100 mg); negative for headache(s), Nosebleed/epistaxis or balance problems Cardio Chest Pain: No Palpitations: No Edema: None Muscle aches with walking: None Additional Details: c/o orange urine and diarrhea since starting amiodarone Resp Respiratory: Negative for SOB with activity, SOB at rest, SOB orthopnea\SOB lying down, Cough or paroxysmal nocturnal dyspnea GI GI: Positive for other (diarrhea); negative nausea, vomiting, heartburn or black,tarry stools : Negative for hematuria Musc Musc: Negative for muscle aches/ myalgia, muscle weakness, joint pain or balance problems Skin Skin: Negative non-healing lesions, rash or unusual bruising Neuro Neuro: Positive for dizziness (improving since amio decreased to 100 mg) and other (RLE weakness, ambulating with cane); negative for lightheadedness, near syncope, syncope, orthostatic symptoms, frequent falls, headache(s), weakness, blurry vision, double vision or lack of coordination Ramses Hematologic/Lymphatic: Negative for easy bleeding or easy bruising Endo Endo: Negative for fatigue, excessive sweating or increased thirst/drinking Psych Psych: Negative for anxiety or depression Allergy Allergy/Immunology: Negative for hives, Negative for rash Cardiology Exam Const Appearance: cooperative, healthy appearing, no acute distress, well developed and well groomed Nutritional Appearance: average body habitus and well nourished Orientation: alert, awake and oriented x3 Head Head: normal to inspection, normocephalic and atraumatic Ears: hearing grossly normal bilaterally and external ears normal Nose: external nose normal, nares normal, nasal mucous membranes and turbinates normal, septum normal, no nasal discharge Face and Sinus: face symmetric Mouth: oral mucosae normal, tongue normal, oropharynx normal and moist mucous membranes Teeth and gingiva: dentition normal Throat: posterior oropharynx normal, tonsils normal and uvula midline Eyes General: appearance normal, both eyes and all related structures Eyelids: eyelids normal Conjunctivae: conjunctivae normal Pupils: PERRL, normal by confrontation and accommodation normal EOM: EOM intact bilaterally Neck Neck: normal visual inspection, trachea midline and no JVD JVD: +5 Carotids: normal carotid upstroke and bounding pulses Chest Chest inspection: normal inspection of the chest, symmetric chest movement and normal respiratory effort Auscultation: Bilateral: Clear to Auscultation Cardio Palpation: normal PMI Rate: regular rate Rhythm: regular rhythm Heart sounds: S1 normal, S2 normal and normal, physiologic split S2; negative rub, gallop or murmur GI GI: normal to inspection, soft, no hepatosplenomegaly and bowel sounds present Neuro General: alert, awake, oriented x3, gait normal, moves all extremities and no focal sensory deficit Skin Skin: no rashes or lesions noted Extremities Pulses: Normal: Right Femoral Pulse, Left Femoral Pulse, Right Dorsalis Pedis Pulse, Left Dorsalis Pedis Pulse, Right Posterior Tibial Pulse, Left Posterior Tibial Pulse, Right Radial Pulse, Left Radial Pulse Lower Extremity Edema: None: Bilateral Musculoskel Musculoskeletal: No joint tenderness Psych Psychological: normal affect Assessment & Plan 1. History of coronary artery stent placement Z95.5 PCI-AFSHAN-LCx w/ 2.5 x 24 mm Synergy Stent 05/31/17 Plan She does have a history of coronary artery disease status post angioplasty and stent placement to the left circumflex artery in May 2017. At this time my recommendation is for her to continue the current medical therapy without as making any changes. Orders Orders: 12 Lead EKG performed by BMS Today 2. Presence of permanent cardiac pacemaker Z95.0 Pacemaker implant 12/18/06; Generator change 04/19/15 Plan She is status post permanent pacemaker implantation. Pacemaker was interrogated during her hospitalization and was noted to be functioning well. She was noted to have periods of atrial fibrillation present. Orders Orders: 12 Lead EKG performed by BMS Today Basic Metabolic Profile (BMP) Today 3. Paroxysmal atrial flutter I48.92 Plan She does have evidence of paroxysmal atrial flutter. Her EKG here today demonstrates atrial flutter with a rate of 87 bpm. She did undergo DC cardioversion but it appears that she has reverted back to atrial fibrillation. She was on a low-dose of amiodarone. She has been on anticoagulation. I would consider her remaining on the anticoagulation and for us to perform a DC cardioversion later. Orders Orders: Basic Metabolic Profile (BMP) Today Liver Profile Today Cardioversion 2 Weeks 4. Essential (primary) hypertension I10 Plan She does have a history of hypertension and her blood pressure is slightly elevated. I would recommend that her beta-virgilio be increased to 25 mg twice a day. This will be the metoprolol. Orders Orders: Basic Metabolic Profile (BMP) Today 5. Hyperlipidemia, unspecified hyperlipidemia type E78.5 Plan She will continue with medium intensity statin at this particular time. Orders Orders: Basic Metabolic Profile (BMP) Today Plan Detail Other Orders Orders: 12 Lead EKG performed by BMS Today I21.4, I25.10, I44.2, I45.2, I48.0, I48.91, I49.5 Basic Metabolic Profile (BMP) Today I21.4 Other Medications New: amiodarone 200 mg PO DAILY 60 tabs 2RF Changed: From: metoprolol tartrate 12.5 mg PO BID bp To: metoprolol tartrate 25 mg PO BID Discontinued: amiodarone Discontinued Reason: Order Changed 100 mg PO DAILY Follow Up 4 Months (mmm) Coding Level of Care Code Off vis,est,level 4 Diagnoses History of coronary artery stent placement Z95.5 Presence of permanent cardiac pacemaker Z95.0 Paroxysmal atrial flutter I48.92 Essential (primary) hypertension I10 Hyperlipidemia, unspecified hyperlipidemia type E78.5 ??Hyperlipidemia type: unspecified Coding Level of Care Code Off vis,est,level 4 Diagnoses History of coronary artery stent placement Z95.5 Presence of permanent cardiac pacemaker Z95.0 Paroxysmal atrial flutter I48.92 Essential (primary) hypertension I10 Hyperlipidemia, unspecified hyperlipidemia type E78.5 ??Hyperlipidemia type: unspecified Supplemental Info Supplemental Information Diagnostics Electrocardiogram 04/06/20 Pacemaker Check 12/10/19 Chest X-Ray 01/20/20
--- NOTE | 2020-04-19 12:07 | CARDIOVERS ---
Cardioversion Cardioversion: DC cardioversion. 84-year-old lady with a history of a pacemaker placement and persistent atrial flutter. Patient was brought to the cardiac catheterization lab in the postabsorptive nonsedated state. Patient was seen by Dr. Valadez of the critical care division. Informed consent was obtained. Patient had been taking anticoagulation continuously. Anterior-posterior pads were applied. The patient was then administered 40 mg of intravenous propofol. 200 J of synchronized DC biphasic energy were applied with prompt reversal to sinus rhythm and AV sequentially paced rhythm. Patient tolerated the procedure well. Conclusion: Successful DC cardioversion to sinus rhythm. Continue anticoagulation. Follow-up per office protocol.
--- NOTE | 2020-04-19 13:51 | PRO.PCM_ITS ---
Problem List (1) Atherosclerotic heart disease of [place] coronary artery without angina pectoris Status: Chronic Qualifiers: (2) Bilateral carotid artery stenosis Status: Chronic Comment: head\Pending Sale To [facility]A 08/17/2019 left>right (3) Essential (primary) hypertension Status: Chronic (4) Paroxysmal atrial fibrillation Status: Chronic (5) Paroxysmal atrial flutter Status: Chronic (6) Sick sinus syndrome Status: Chronic Procedure Report Date of Procedure: 04/19/20 - Conscious sedation CONSCIOUS SEDATION REPORT BRIEF HISTORY OF PRESENT ILLNESS: The patient is an 84-year-old female who presented to [facility] for an elective outpatient cardioversion due to underlying atrial fibrillation. The patient reports no PO intake since midnight. The patient does not have a history of obstructive sleep apnea. The patient reports a history of smoking and COPD. The patient denies any recent constitutional symptoms such as fevers, chills, nausea or vomiting. The patient denies previous anesthetic complications. Patient's last known ejection fraction was 65%. Patient did take Eliquis on the day of the procedure. PHYSICAL EXAMINATION: VITAL SIGNS: Reviewed and were acceptable. GENERAL: The patient is a female, in no apparent distress, speaking in full sentences. HEENT: Normocephalic, atraumatic. Mucous membranes are moist and pink. Good mouth opening noted. Trachea is midline. Good neck mobility. MP II CHEST: S1, S2 irregularly irregular. No murmurs, rubs or gallops were noted. LUNGS: Clear to auscultation bilaterally without appreciable wheezes, rales or rhonchi. ABDOMEN: Soft, nontender, nondistended. Positive bowel sounds. EXTREMITIES: There is no clubbing, cyanosis or edema. ASA Class: II DESCRIPTION OF PROCEDURE: After confirmation of informed consent, the patient's anesthesia plan was reviewed in detail. Propofol was chosen. Risks and benefits were reviewed and the patient agreed to proceed. At 12:01 PM, the patient was given 40 mg of propofol. The patient achieved an appropriate level of sedation and received 1 attempt synchronized cardioversion, at [address] Abbasi at the bedside. This was successful in achieving normal sinus rhythm. The patient was monitored until 12:12 PM, at which time the patient reached their baseline mental status and function. The patient tolerated the procedure well. COMPLICATIONS: None ESTIMATED BLOOD LOSS: None RECOMMENDATIONS: Okay to recover in usual fashion. 9xxxx: Other Procedure See Report - 58584 -11 minutes conscious sedation
== END 2020-04-19 13:20 | disposition home or self-care (01) ==
LOC: CLSP 10:15
PROVIDERS: PCP Family Medicine; Referring Provider Internal Medicine Cardiovascular Disease; Visit Provider Internal Medicine Cardiovascular Disease
DX: I48.0 Paroxysmal atrial fibrillation (principal); J44.9 Chronic obstructive pulmonary disease, unspecified; I25.10 Atherosclerotic heart disease of native coronary artery without angina pectoris; I48.92 Unspecified atrial flutter; I10 Essential (primary) hypertension; E78.5 Hyperlipidemia, unspecified; E03.9 Hypothyroidism, unspecified; K21.9 Gastro-esophageal reflux disease without esophagitis; F41.9 Anxiety disorder, unspecified; I65.23 Occlusion and stenosis of bilateral carotid arteries; Z95.5 Presence of coronary angioplasty implant and graft; Z87.891 Personal history of nicotine dependence; Z95.0 Presence of cardiac pacemaker; Z88.0 Allergy status to penicillin; Z88.6 Allergy status to analgesic agent; Z79.02 Long term (current) use of antithrombotics/antiplatelets; Z79.01 Long term (current) use of anticoagulants; I25.2 Old myocardial infarction
CPT/HCPCS: 92960; 93005; J7040

== ENCOUNTER → 2020-08-09 09:07 | Outpatient (CLI) | payer MEDICARE, SELFPAY ==
[2017-06-01 08:52] VITALS: BMI 24.1
--- NOTE | 2020-08-09 09:11 | RAD_ITS ---
STUDY: X-RAY - RIGHT KNEE REASON FOR EXAM: Right knee pain and giving out for several months. TECHNIQUE: 4 view(s) of the knee. COMPARISON: None. FINDINGS: There is osteopenia. Normal visualized distal femur. Normal visualized proximal tibia and fibula. Normal proximal tibiofibular articulation. There is mild joint space narrowing of the medial femorotibial compartment. There is preservation of joint space of the lateral femorotibial compartment. There is mild joint space narrowing of the patellofemoral articulation. There is chondrocalcinosis. There is soft tissue calcification at the posterior aspect of the knee. RAD/Knee 4 or More Views IMPRESSION: Mild arthrosis of the medial femorotibial and patellofemoral compartments. Chondrocalcinosis. Electronically Signed: Imtiaz Vann MD at 15:00 EDT Tel , Service support ,
[2020-08-09 11:18] LABS: ALB/GLOB Ratio 1.2 RATIO (0.9-2.4); AST(SGOT) 26 U/L (15-37); Alanine Aminotransfer ALT/SGPT 24 U/L (13-56); Albumin, Serum 3.6 g/dL (3.2-5.0); Alkaline Phosphatase 97 U/L (45-117); Anion Gap 9 (5-15); BUN 16 mg/dL (7-18); BUN/Creat Ratio 14.7 RATIO (10-20); Calcium,Total 8.7 mg/dL (8.5-10.1); Chloride 101 mmol/L (98-107); Cholesterol 189 mg/dL (200); Creatinine, Serum 1.09 mg/dL (0.55-1.02); EST Glomerular Filtration Rate 51 mL/min (>60); Est Glom Filt Rate - Afr Amer 62 mL/min (>60); Globulin 3.1 g/dL (2.2-4.2); Glucose 85 mg/dL (74-106); High Density Lipoprotein 58 mg/dL; Potassium 4.3 mmol/L (3.5-5.1); Protein, Total 6.7 g/dL (6.4-8.2); Sodium Level 139 mmol/L (136-145); Thyroid Stim Hormone (TSH) 6.41 uIU/mL (0.358-3.74); Triglycerides 117 mg/dL; Very Low Density Lipoprotein 23 mg/dL (5-40)
== END ==
PROVIDERS: PCP Family Medicine; Referring Provider Family Medicine; Visit Provider Family Medicine
DX: I10 Essential (primary) hypertension (principal); E03.9 Hypothyroidism, unspecified; M25.561 Pain in right knee
CPT/HCPCS: 36415; 73564; 80053; 80061; 84443

== ENCOUNTER → 2020-08-20 11:08 | Outpatient (CLI) | payer MEDICARE, SELFPAY ==
[2017-06-01 08:52] VITALS: BMI 24.1
[2020-08-20 12:45] LABS: Thyroid Stim Hormone (TSH) 4.61 uIU/mL (0.358-3.74)
== END ==
PROVIDERS: PCP Family Medicine; Referring Provider Family Medicine; Visit Provider Family Medicine
DX: E03.9 Hypothyroidism, unspecified (principal)
CPT/HCPCS: 36415; 84443

== ENCOUNTER → 2020-09-01 10:19 | Outpatient (CLI) | payer MEDICARE, SELFPAY ==
[2017-06-01 08:52] VITALS: BMI 24.1
[2020-08-20 13:25] VITALS: BMI 23.9
--- NOTE | 2020-09-02 12:18 | PFT ---
INTRODUCTION: The patient is an 85-year-old female that presents for pulmonary function studies secondary to a diagnosis of atrial fibrillation. Respiratory therapy reported good patient effort. Bronchodilators were used during testing. INTERPRETATION: Forced expiration spirometry demonstrates the presence of a mild large airways obstructive ventilatory defect. There was no significant response to aerosolized bronchodilators. Spirograms are of good quality but do not plateau indicating slow emptying of the lungs. Body plethysmography was performed and revealed a decreased TLC to 4.01 L, 82% of predicted, indicative of a mild restrictive ventilatory impairment. Diffusing capacity by single breath CO is reduced at 55% of predicted. IMPRESSION: Irreversible mild mixed ventilatory defect with moderate reduction in diffusing capacity.
== END ==
PROVIDERS: PCP Family Medicine; Referring Provider Physician Assistant Medical; Visit Provider Physician Assistant Medical
DX: I48.0 Paroxysmal atrial fibrillation (principal)
CPT/HCPCS: 94060; 94726; 94729

== ENCOUNTER 2020-09-16 10:30 | Outpatient (RCR) | payer MEDICARE, SELFPAY ==
[2017-06-01 08:52] VITALS: BMI 24.1
[2020-08-20 13:25] VITALS: BMI 23.9
--- NOTE | 2020-09-02 13:57 | HP.PTEVAL ---
Patient's Visit Information MICK CHINCHILLA is a 85 year old F referred to Physical Therapy by Dr. Jian Savage MD with a diagnosis of LOW BACK PAIN. Date of Evaluation: 09/02/20 Physical Therapist: Harika Fraire PT, Cert MDT - Visit Plan Frequency: 1-2x /Week Duration: 4-6 Weeks Plan: *PACEMAKER*. PROGRESS ROM AND STRENGTHEING SLOW AND CAREFULLY*. POSTURE CORRECTION/STRENGTHENING, INSTRUCTION IN APPROPRIATE BODY MECHANICS AND ACTIVITY MODIFICATIONS. DLS STARTING WITH A NEUTRAL SPINE PROGRESSING ROM TOLERATED. ALLIE LE ROM, STRETCHING AND STRENGTHENING. HEP INSTRUCTION. - Subjective Work/Leisure: RETIRED. Present symptoms: RIGHT LOW BACK, HIP, THIGH, LEG, AND FOOT PAIN. THE WHOLE RIGHT LEG GOES NUMB. MY LEFT LEG IS FINE BUT LEFT FOOT GOES NUMB TOO. RIGHT KNEE PAIN. INTERMITTENT GIVING OUT OF RIGHT LEG. KNEE GOES BACKWARDS. STILL HAS SOME RECTAL PAIN BUT NOT GROIN PAIN. Present since: OCT 2019. Pain Scale: WORST 9/10, LEAST 4/10. Currently: 7/10. Commenced as a result of: NO APPARENT REASON. Symptoms at onset: RIGHT BACK AND LEG. Worse: STANDING WASHING A FEW DISHES (5 MINUTES), ROLLING OVER IN BED, DRIVING, BENDING OVER TO PULL WEEDS, SITTING AT COMPUTER. STATES THERE IS NO WAY SHE CAN DO SOME OF THE HOME EX'S DR. PEREZ GAVE HER. Better: LYING ON THE COUCH, TYLON[place]. Disturbed sleep: YES. Previous history/Previous treatment: BACK SURGERY [address] CHONG AT [facility]. PATIENT DESCRIBES HAVING A LUMBAR FUSION 2 YEARS AGO. PHYSICAL THERAPY HERE AT [facility] AFTER THE SURGERY. NO TREVOR'S. CHIRO TREATMENT A LONG LONG TIME AGO. HURT BACK IN FACTORY AND OFF FOR 3 MONTHS A LONG TIME AGO. LONG HISTORY OF BACK PAIN. PHYSICAL THERAPY 2019 - WITH BENEFIT. Treatment this episode: PT CONSULT. RIGHT KNEE X-RAY - PATIENT REPORTS DR. PEREZ TOLD HER IT HAS ARTHRITIS. NO SPECIALIST CONSULTS. Coughing/sneezing/straining: NEGATIVE. Gait: ANTALGIC GAIT THAT IS TIME AND DISTANCE LIMITED BY R BACK AND LE PAIN. SOMETIMES USES CANE. CAN'T WALK DOG VERY FAR. Difficulty initiating urinatin: NO. Accidents: NO. NO FALLS. Unexplained weight loss: NO. Imaging: NO RECENT BACK X-RAYS. PMH/Recent major surgery: ALLIE FOOT SURGERY. LEFT FOOT ABOUT A YEAR AGO. RIGHT FOOT ABOUT 10 YEARS AGO. GANGLION CYSTS REMOVED FROM FEET. REPORTS SHE WAS FINE AFTER HER FOOT SURGERIES. *PACEMAKER* HEART ATTACK 2017, HEART STENT, COPD, HTN, NOT DIABETIC. NO CANCER. NO STROKE. HISTORY OF DIZZINESS - GETS VERTIGO ATTACKS. OTHER: ON BLOOD THINNERS FOR R LUNG BLOOD CLOT CLOSE TO HEART THAT IS BEING MONITORED. BLOOD PRESSURE GOES UP. PATIENT REPORTS SHE WAS DOING GOOD AFTER PT UNTIL MAY OF 2019 WHEN SHE STARTED HAVING CHEST PAINS, COUGHING AND DIFFICULTY BREATHING. SHE WAS DIAGNOSED WITH UPPER RESPIRATORY INFECTION AND SARS II AND COVID-19. SHE WAS TREATED AT HOME AND REPORTS SHE GOT REALLY WEAK. STARTED TO RECOVER IN AUGUST BUT WAS STILL WALKING WITH WALKER. IN SEPTEMBER 2019 SHE WAS SENT TO THE HOSPITAL BY DR. PEREZ DUE TO VERY HIGH BLOOD PRESSURE. HOSPITALIZED X 2 DAYS. BACK STARTED HURTING AFTER THAT SOMETIME AND THEN RE-ADMIT TO THE HOSPITAL IN MAR 2020 AND HAD TO HAVE HEART SHOCKED. IT DIDN'T WORK AND HAD TO BE SHOCKED AGAIN IN APR AND THEN IT WORKED. - Objective Sitting/Standing Posture: POOR INCREASED KYPHOSIS. DECREASED LORDOSIS. RIGHT ILIAC CREST HIGHER THAN LEFT. SCOLIOSIS. Active Correction of posture: NE. Other Observations: INDEP ANTALGIC GAIT INTO PT X APPROX 300 FEET. DECREASED ALLIE STRIDE LENGTH LENGTH - PATIENT TAKES QUICK, SHORT STEPS. PATIENT IS UNABLE TO TRANSFER SIT TO STAND WITHOUT UE ASSIST. INCREASED DIFFICULTY INITIATING GAIT AFTER SITTING. Motor deficit: ALLIE HIP AND KNEE WEAKNESS. ALLIE ANKLE DORSIFLEX AND EHL 5/5. ALLIE HIPS 4-/5, RIGHT KNEE 4-/5, LEFT KNEE 4-/5. Sensory deficit: ALLIE LE LIGHT TOUCH SENSATION APPEARS TO BE INTACT AND SYMMETRICAL BUT TOES ARE TINGLY WITH LIGHT TOUCH. ROM deficit: PATIENT HAS TIGHT ALLIE HIP IR LEFT > RIGHT, TIGHT ALLIE HIP FLEXORS, TIGHT HS AND GASTROC-SOLEUS COMPLEX'S. Dural Signs: POSITIVE ALLIE LE'S. Lumbar mvmt loss: flex - MOD. ext - ANNEMARIE. R SG - ANNEMARIE. L SG - ANNEMARIE. PATIENT IS UNABLE TO STAND ERECT. PATIENT C/O RIGHT LBP WITH LUMBAR ROM TESTING ALL PLANES. Core strength: POOR. Palpation: NO ACUTE TENDERNESS WITH PALPATION OF THE THORACIC, LUMBAR, SACRAL, PELVIC OR HIP REGIONS. OTHER: LEFT HIP IR TESTING PROVOKES LEFT HIP/THIGH PAIN. TREATMENT: NEUROMUSCULAR REEDUCATION - RETRAINING OF MVMT AND POSTURE FOR SITTING, LYING AND STANDING ACTIVITIES. INSTRUCTED PATIENT TO CONTINUE PRIOR HOME EX'S GIVEN BY DR. PEREZ THAT DO NOT INCREASE PAIN AND TO BRING HEP WITH HER NEXT VISIT. - Goals Goal 1:: DECREASE C/O BACK AND LE SX'S. Goal Time Frame: 4-6 Weeks Goal 2:: IMPROVE PERSONAL CARE, LIFTING, WALKING, SITTING, STANDING, SLEEP, SOCIAL LIFE, TRAVEL/DRIVING AND HOMEMAKING FUNCTION Goal Time Frame: 4-6 Weeks Goal 3:: INSTRUCT IN PROPHYLAXIS Goal Time Frame: 4-6 Weeks - Anticipated Interventions Patient/Client Instruction: Educate patient on: Condition, Plan of Care, Risk Factors For the Purpose of:: To improve self management Therapeutic Exercise to Include: Strength training, Body mechanics, Postural training, Flexibilty training, Gait and locomotor training, Neuromotor development, In an aquatic setting, Dynamic Lumbar Stabilization For the Purpose of:: To decrease pain, To improve muscle performance and motor function, To increase tolerance to activity/condition/position, To improve ability of physical actions for home/community/work/leisure, To improve gait and locomotor functions Thank you for the opportunity to evaluate your patient. For Medicare and Medicare HMO plans, please review the plan of care and approve it. It will need to be FAXED BACK to us at [phone] for Medicare purposes. For Medicare only, by signing this I certify the plan of care. Please let me know if there are questions or concerns regarding this plan of care. Physician Signature: Date:
--- NOTE | 2020-10-05 10:43 | HP.PT.NRP ---
MICK CHINCHILLA was seen in my office for initial evaluation on 09/02/20. The following Plan of Care was established for this patient: Initial Frequency: 1-2x /Week Initial Duration: 4-6 Weeks Patient/Client Instruction: Educate patient on: Condition, Plan of Care, Risk Factors For the Purpose of:: To improve self management Therapeutic Exercise to Include: Strength training, Body mechanics, Postural training, Flexibilty training, Gait and locomotor training, Neuromotor development, In an aquatic setting, Dynamic Lumbar Stabilization For the Purpose of:: To decrease pain, To improve muscle performance and motor function, To increase tolerance to activity/condition/position, To improve ability of physical actions for home/community/work/leisure, To improve gait and locomotor functions This patient was last seen in our office . Pertinent comments regarding their Physical therapy will appear below: This patient has not returned to Physical Therapy and is appropriate to return to MD for further follow-up as needed. At this point I will be discontinuing this patient from physical therapy. I would be happy to see this patient again in the future if found appropriate by the physician. Thank you! Harika Fraire, PT, Cert MDT
== END 2020-09-16 19:00 | disposition home or self-care (01) ==
LOC: PT 10:30
PROVIDERS: PCP Family Medicine; Referring Provider Family Medicine; Visit Provider Family Medicine
DX: M54.5 Low back pain (principal); Z98.890 Other specified postprocedural states
CPT/HCPCS: 97112; 97162; 97530

== ENCOUNTER → 2020-09-16 11:35 | Outpatient (CLI) | payer MEDICARE, SELFPAY ==
[2017-06-01 08:52] VITALS: BMI 24.1
[2020-08-20 13:25] VITALS: BMI 23.9
--- NOTE | 2020-09-16 11:39 | RAD_ITS ---
STUDY: X-RAY - LUMBAR SPINE REASON FOR EXAM: Female, 85 years old. low back pain TECHNIQUE: None. view(s) of the lumbar spine were obtained. COMPARISON: 07/29/2013. FINDINGS: The patient is status post posterior fusion at L2-L3. There is disc prosthesis at this level. There is minimal retrolisthesis of L2 in relation to L3. Otherwise normal lumbar lordosis. There is no substantial scoliosis. There is a normal alignment of the vertebrae. There is diffuse demineralization with multi-level endplate spondylosis. There is multi-level degenerative disc disease with multi-level disc space narrowing. There is no demonstrated fracture. There is atherosclerotic calcification of the abdominal aorta without a demonstrated aneurysm. RAD/Lumbar Spine 2 or 3 Views IMPRESSION: Multilevel degenerative disease as described. Postoperative changes at L2-L3. Minimal retrolisthesis of L2 on L3, stable. No acute fracture. Electronically Signed: Demi Del Real MD at 3:12 EDT , Service support ,
== END ==
PROVIDERS: PCP Family Medicine; Referring Provider Family Medicine; Visit Provider Family Medicine
DX: M54.5 Low back pain (principal)
CPT/HCPCS: 72100

== ENCOUNTER → 2020-10-25 11:09 | Outpatient (CLI) | payer MEDICARE, SELFPAY ==
[2017-06-01 08:52] VITALS: BMI 24.1
[2020-08-20 13:25] VITALS: BMI 23.9
[2020-10-25 16:04] LABS: Thyroid Stim Hormone (TSH) 4.84 uIU/mL (0.358-3.74)
== END ==
PROVIDERS: PCP Family Medicine; Referring Provider Family Medicine; Visit Provider Family Medicine
DX: E03.9 Hypothyroidism, unspecified (principal)
CPT/HCPCS: 36415; 84443

== ENCOUNTER → 2020-11-23 10:03 | Outpatient (CLI) | payer MEDICARE, SELFPAY ==
[2017-06-01 08:52] VITALS: BMI 24.1
[2020-08-20 13:25] VITALS: BMI 23.9
--- NOTE | 2020-11-23 10:06 | BI_ITS ---
MAMMOGRAPHY - BILATERAL SCREENING REASON FOR EXAM: Female, 85 years old. Routine annual screening examination. PERTINENT HISTORY: Sister with breast cancer. Remote left excisional breast biopsy. TECHNIQUE: Digital bilateral breast genevieve (3D mammographic acquisition) in the CC and MLO projections. 2-D mediolateral oblique (MLO) and craniocaudad (CC) views of both breasts were obtained. CAD: Full Field Digital Mammography with Computer Added Detection was performed. COMPARISON: Comparison is made with prior study dated 11/19/2019 and 11/05/2018. FINDINGS: Breast Composition: The breasts are heterogeneously dense, which may obscure small masses. There are no dominant masses or suspicious calcifications. Stable small benign-appearing bilateral axillary lymph nodes. A pacemaker battery pack is seen in the right axillary region. No other significant abnormalities are identified. There has been no significant change since the prior study. BI/SCRN MAMM (CAD)W/GENEVIEVE BILAT IMPRESSION: Stable bilateral screening mammogram. Yearly follow-up mammogram recommended. (A) ASSESSMENT CATEGORY: BIRADS Category 2: Benign. A letter regarding these results will be sent to the patient by the facility within 30 days. Approximately 10% of breast cancers are not detected by mammography. A normal mammogram should not delay biopsy of a clinically suspicious abnormality. [id number] Electronically Signed: Grabiel Gallagher MD at 11:57 EDT , Service support ,
--- NOTE | 2020-11-23 10:24 | BD_ITS ---
STUDY: DUAL ENERGY X-RAY ABSORPTIOMETRY / DXA REASON FOR EXAM: Female, 85 years old. [id number] TECHNIQUE: Bone Mineral Density (BMD) measurements of lumbar spine and bilateral hips were obtained. COMPARISON: Comparison is made with prior study 08/08/2017. FINDINGS: Lumbar Spine (L1-L4): g/cm2 (0.750) / T-score (-2.6) / Z-score (0.2) Findings are suggestive of osteoporosis with a high fracture risk. Left Femur Total: g/cm2 (0.666) / T-score (-2.3) / Z-score (0.0) Left Femoral Neck: g/cm2 (0.516) / T-score (-3.0) / Z-score (-0.6) Right Femur Total: g/cm2 (0.685) / T-score (-2.1) / Z-score (0.1) Right Femoral Neck: g/cm2 (0.528) / T-score (-2.1) / Z-score (-0.4) The T-Scores on the most recent prior examination were: Lumbar Spine (L1-L4): There has been worsening of bone density since the previous examination. Left Femur Total: which represents a worsening of . Right Femur Total: which represents a worsening of . BD/Dexa Bone Density Study IMPRESSION: The patient is considered osteoporotic as outlined below according to World Anoop Organization (WHO) criteria with a high fracture risk. There has been worsening of bone density since the previous examination. Reference Information: The T-score is the number of standard deviations above or below the standard which is normal for young adults at their peak bone mineral density. The World Health Organization (WHO) interprets the T-scores as follows: Above -1 Normal bone density Between -1 and -2.5 Osteopenia Equal to / or below -2.5 Osteoporosis As a practical clinical guideline, osteopenia may be graded as follows: Mild -1 through -1.5 Moderate -1.6 through -2.0 Severe -2.1 through -2.4 The Z-score is the number of standard deviations above or below age-matched controls. A Z-score of less than -1.5 would be considered abnormal. References: 1. NIH Osteoporosis and Related Bone Diseases www osteo.org 2. International Society for Clinical Densitometry www iscd.org 3. National Osteoporosis Foundation www nof.org Electronically Signed: Grabiel Gallagher MD at 13:18 EDT , Service support ,
== END ==
PROVIDERS: PCP Family Medicine; Visit Provider Family Medicine
DX: Z12.31 Encounter for screening mammogram for malignant neoplasm of breast (principal); Z78.0 Asymptomatic menopausal state
CPT/HCPCS: 77063; 77067; 77080

== ENCOUNTER 2021-05-24 14:52 | Outpatient (CLI) | payer MEDICARE, SELFPAY ==
[2017-06-01 08:52] VITALS: BMI 24.1
[2021-05-24 17:20] LABS: AST(SGOT) 27 U/L (15-37); Alanine Aminotransfer ALT/SGPT 31 U/L (13-56); Alkaline Phosphatase 77 U/L (45-117); Anion Gap 4 (5-15); BUN 31 mg/dL (7-18); BUN/Creat Ratio 23.7 RATIO (10-20); Bilirubin, Direct 0.17 mg/dL (0.00-0.30); Calcium,Total 9.2 mg/dL (8.5-10.1); Chloride 98 mmol/L (98-107); Creatinine, Serum 1.31 mg/dL (0.55-1.02); EST Glomerular Filtration Rate 41 mL/min (>60); Est Glom Filt Rate - Afr Amer 50 mL/min (>60); Globulin 3.7 g/dL (2.2-4.2); Glucose 91 mg/dL (74-106); Potassium 4.6 mmol/L (3.5-5.1); Protein, Total 7.7 g/dL (6.4-8.2); Sodium Level 131 mmol/L (136-145); T4 Total, Thyroxin 11.2 ug/dL (4.8-13.9); Thyroid Stim Hormone (TSH) 7.25 uIU/mL (0.358-3.74)
== END 2021-05-24 23:59 | disposition home or self-care (01) ==
LOC: LAB 14:55
PROVIDERS: Referring Provider Internal Medicine Cardiovascular Disease; Visit Provider Internal Medicine Cardiovascular Disease
DX: E78.5 Hyperlipidemia, unspecified (principal); I48.0 Paroxysmal atrial fibrillation; Z95.5 Presence of coronary angioplasty implant and graft
CPT/HCPCS: 36415; 80048; 80076; 84436; 84443

== ENCOUNTER → 2021-09-02 | Outpatient (CLI) | payer MEDICARE, SELFPAY ==
[2017-06-01 08:52] VITALS: BMI 24.1
[2021-09-02 17:39] LABS: Absolute Lymphocyte Count 1.21 X10^3/uL (0.83-4.51); Absolute Neutrophil Count 5.8 X10^3/uL (2.0-7.7); Basophil# 0.04 X10^3/uL; Basophil% 0.5 % (0-1); Eosinophil# 0.17 X10^3/uL; Eosinophils% 2.2 % (0-5); Hemoglobin 12.8 g/dL (12.0-15.0); Lymphocyte # 1.21 X10^3/ul (0.83-4.51); Lymphocyte % 15.6 % (19-41); Mean Corp Hgb Conc 33.7 g/dL (32-36); Mean Corpuscular Hgb 32.9 pg (27.0-32.0); Mean Corpuscular Volume 97.7 fL (81-99); Mean Platelet Vol. 9.6 fl (6.2-12.0); Monocyte# 0.55 X10^3/uL; Monocyte% 7.1 % (0-10); NRBC Flagged by Analyzer 0 % (0-5); Neutrophil # 5.76 X10^3/uL (2.7-7.7); Neutrophil % 74.2 % (47-70); Platelet Count 236 K/mm3 (150-450); RBC Distribution Width SD 43.3 fl (35.1-43.9); Red Blood Count 3.89 M/mm3 (4.2-5.4); White Blood Count 7.8 K/mm3 (4.4-11.0)
[2021-09-02 18:07] LABS: ALB/GLOB Ratio 1.1 RATIO (0.9-2.4); AST(SGOT) 29 U/L (15-37); Alanine Aminotransfer ALT/SGPT 29 U/L (13-56); Albumin, Serum 3.9 g/dL (3.2-5.0); Alkaline Phosphatase 79 U/L (45-117); Anion Gap 6 (5-15); BUN 20 mg/dL (7-18); BUN/Creat Ratio 17.4 RATIO (10-20); Calcium,Total 9.4 mg/dL (8.5-10.1); Chloride 102 mmol/L (98-107); Cholesterol 205 mg/dL (200); Creatinine, Serum 1.15 mg/dL (0.55-1.02); EST Glomerular Filtration Rate 48 mL/min (>60); Est Glom Filt Rate - Afr Amer 58 mL/min (>60); Globulin 3.4 g/dL (2.2-4.2); Glucose 94 mg/dL (74-106); High Density Lipoprotein 56 mg/dL; Magnesium 1.7 mg/dL (1.6-2.6); Potassium 4.4 mmol/L (3.5-5.1); Protein, Total 7.3 g/dL (6.4-8.2); Sodium Level 134 mmol/L (136-145); T4 Free Direct 1.65 ng/dL (0.76-1.46); Triglycerides 152 mg/dL; Very Low Density Lipoprotein 30 mg/dL (5-40)
[2021-09-02 18:23] LABS: Vitamin D,25 Hydroxy 39.1 ng/mL
[2021-09-06 07:46] LABS: Anti-Thyroglobulin AB < 1.0 IU/mL (0.0-0.9); Thyroglobulin, Serum Qt. 37.1 ng/mL (1.5-38.5); Thyroid Peroxidase AB < 8 IU/mL (0-34)
== END | disposition home or self-care (01) ==
LOC: MFPLAB 15:50
PROVIDERS: PCP Family Medicine; Referring Provider Family Medicine; Visit Provider Family Medicine
DX: E03.9 Hypothyroidism, unspecified (principal); I25.10 Atherosclerotic heart disease of native coronary artery without angina pectoris; E55.9 Vitamin D deficiency, unspecified
CPT/HCPCS: 36415; 80053; 80061; 82306; 83735; 84432; 84439; 85025; 86376; 86800

== ENCOUNTER → 2021-10-06 | Outpatient (CLI) | payer MEDICARE, SELFPAY ==
[2017-06-01 08:52] VITALS: BMI 24.1
--- NOTE | 2021-10-06 12:35 | RAD_ITS ---
EXAM: XR RIGHT KNEE, 3 VIEWS CLINICAL INDICATION: PAIN TECHNIQUE: Three views of the right knee. This report was created using [employer] report generation technology. COMPARISON: None. FINDINGS: BONES/JOINTS: Mild medial compartment joint space narrowing. Chondrocalcinosis involving the menisci. No acute fracture. No subluxation. Normal alignment. No sclerotic or destructive changes observed. No joint effusions. SOFT TISSUES: Unremarkable. No soft tissue swelling or gas. No radiopaque foreign body. VASCULATURE: Vascular calcifications. RAD/Knee 3 Views IMPRESSION: 1. Mild medial compartment joint space narrowing. 2. Chondrocalcinosis involving the menisci. Electronically Signed: Jin Thompson MD at 2:23 EDT ,
--- NOTE | 2021-10-06 12:35 | RAD_ITS ---
EXAM: XR LEFT KNEE, 3 VIEWS CLINICAL INDICATION: PAIN TECHNIQUE: Three views of the left knee. This report was created using [employer] report generation technology. COMPARISON: None. FINDINGS: BONES/JOINTS: Mild medial compartment narrowing. Chondrocalcinosis involving the menisci. No acute fracture. No subluxation. Normal alignment. No sclerotic or destructive changes observed. No joint effusions. SOFT TISSUES: Unremarkable. No soft tissue swelling or gas. No radiopaque foreign body. VASCULATURE: Vascular calcifications. RAD/Knee 3 Views IMPRESSION: 1. Mild medial compartment narrowing. 2. Chondrocalcinosis involving the menisci. Electronically Signed: Jin Thompson MD at 2:24 EDT ,
== END | disposition home or self-care (01) ==
LOC: MTRAD 12:34
PROVIDERS: PCP Family Medicine; Referring Provider Family Medicine; Visit Provider Family Medicine
DX: M25.562 Pain in left knee (principal); M25.561 Pain in right knee
CPT/HCPCS: 73562

== ENCOUNTER → 2021-10-19 | Outpatient (CLI) | payer MEDICARE, SELFPAY ==
[2017-06-01 08:52] VITALS: BMI 24.1
--- NOTE | 2021-10-19 10:14 | US_ITS ---
INDICATION: NODULE EXAMINATION: Ultrasound US Thyroid (eg thyroid, parathyroid, parotid) TECHNIQUE: Powers scale and color doppler imaging was performed of the thyroid gland. COMPARISON: None. FINDINGS: RIGHT THYROID LOBE: Homogeneous echotexture with normal vascularity. [No thyroid nodules measuring more than 0.5 cm are visualized. 3 hypoechoic nodules are visualized measuring less than 0.5 cm these measure 0.3 x 0.3 x 0.2 cm, 0.4 x 0.4 x 0.2 cm and 0.3 x 0.3 x 0.2 cm. The right lobe of the thyroid gland measures 4.8 x 2.0 x 1.3 cm. LEFT THYROID LOBE: . Homogeneous echotexture with normal vascularity. [No thyroid nodules measuring more than 0.5 cm are visualized. A hypoechoic nodule is visualized measuring less than 0.5 cm this measures 0.3 x 0.2 x 0.2 cm. The left lobe of the thyroid gland measures 3.7 x 1.3 x 1.0 cm. ISTHMUS: The isthmus measures 0.2 cm in AP diameter.. No thyroid nodules are present. US/Thyroid IMPRESSION: Unremarkable thyroid ultrasound examination. No evidence of nodules measuring more than 0.5 cm. Electronically Signed: Chetan Chan MD at 15:21 EDT ,
--- NOTE | 2021-10-19 14:15 | PFTCOMP ---
COMPLETE PULMONARY FUNCTION TEST INTERPRETATION Brief HPI: Patient is an 86-year-old female, currently under the care of Dr. Viveros, who presents to [facility] for complete pulmonary function tests secondary to diagnosis of thyroid nodule. Respiratory therapist reports good effort and reproducible results. Interpretation: Forced expiration spirometry shows no large airways obstructive ventilatory defect with an FEV1 of 121% predicted. There is no significant bronchodilator response by strict ATS criteria. Spirograms are of good quality and plateau slowly, indicating slowly emptying areas of the lungs. The respiratory flow volume loop shows decreased expiratory flow rates at high lung volumes consistent with small airways obstruction. Lung volumes by body plethysmography show a normal total lung capacity at 5.14 L, 109% predicted. All other lung volumes are within normal limits. Diffusion capacity by carbon monoxide is decreased at 58% predicted. The airway resistance is elevated. Compared to previous pulmonary function tests from 09/01/2020, there has been normalization of lung volumes. Impression: Isolated reduction diffusion capacity consistent with a pulmonary vascular disorder. There is some stigmata of small airways disease also noted, but this did not reach clinical significance by ATS criteria.
== END | disposition home or self-care (01) ==
LOC: US 10:11
PROVIDERS: PCP Family Medicine; Referring Provider Family Medicine; Visit Provider Family Medicine
DX: J44.9 Chronic obstructive pulmonary disease, unspecified (principal); E04.1 Nontoxic single thyroid nodule
CPT/HCPCS: 76536; 94060; 94726; 94729

== ENCOUNTER → 2021-11-15 | Outpatient (CLI) | payer MEDICARE, SELFPAY ==
[2017-06-01 08:52] VITALS: BMI 24.1
[2021-11-15 16:44] LABS: Mucous, Urine 0 SEEN /hpf (<or=2+)
[2021-11-15 17:44] LABS: Color, Urine Yellow (Yellow); Glucose, Dipstick Normal (Normal); Ketone-Dipstick Negative (Negative); Leukocyte Esterase-Dipstick 500 /ul (Negative); Nitrite-Dipstick Negative (Negative); Occult Blood-Urine 10 /ul (Negative); Protein-Dipstick Negative (Negative); Urine Bilirubin Dipstick Negative (Negative); Urine Clarity Sl. Cloudy (Clear); Urine Urobilinogen Normal (Normal); Urine pH 6.5 (5.0 - 8.0)
[2021-11-15 17:48] LABS: Absolute Lymphocyte Count 0.91 X10^3/uL (0.83-4.51); Absolute Neutrophil Count 5.4 X10^3/uL (2.0-7.7); Basophil# 0.03 X10^3/uL; Basophil% 0.4 % (0-1); Eosinophil# 0.05 X10^3/uL; Eosinophils% 0.7 % (0-5); Hemoglobin 12.6 g/dL (12.0-15.0); Lymphocyte # 0.91 X10^3/ul (0.83-4.51); Lymphocyte % 13.2 % (19-41); Mean Corp Hgb Conc 34.1 g/dL (32-36); Mean Corpuscular Hgb 33.4 pg (27.0-32.0); Mean Corpuscular Volume 98.1 fL (81-99); Mean Platelet Vol. 9.3 fl (6.2-12.0); Monocyte# 0.51 X10^3/uL; Monocyte% 7.4 % (0-10); NRBC Flagged by Analyzer 0 % (0-5); Neutrophil # 5.36 X10^3/uL (2.7-7.7); Neutrophil % 78.2 % (47-70); Platelet Count 255 K/mm3 (150-450); RBC Distribution Width CV 12.6 % (11.6-14.6); RBC Distribution Width SD 45.4 fl (35.1-43.9); Red Blood Count 3.77 M/mm3 (4.2-5.4); White Blood Count 6.9 K/mm3 (4.4-11.0)
[2021-11-15 17:57] LABS: Protein, Urine (Random) 19.6 mg/dL (<11.9); Protein:Creat Ratio 151 mg/g CRE (0-200)
[2021-11-15 17:58] LABS: White Blood Cells 25-50 SEEN /hpf (0-5)
[2021-11-15 18:00] LABS: Bacteria 4+ /hpf (None Seen); Squamous Epithelial Cells - UA 5-10 SEEN /hpf (5-10)
[2021-11-15 18:01] LABS: Red Blood Cells-Urine 5-10 SEEN /hpf (0-5)
[2021-11-15 18:07] LABS: AST(SGOT) 38 U/L (15-37); Alanine Aminotransfer ALT/SGPT 42 U/L (13-56); Albumin, Serum 3.5 g/dL (3.2-5.0); Alkaline Phosphatase 74 U/L (45-117); Anion Gap 8 (5-15); BUN 23 mg/dL (7-18); Calcium,Total 8.9 mg/dL (8.5-10.1); Chloride 101 mmol/L (98-107); Creatinine, Serum 1.44 mg/dL (0.55-1.02); EST Glomerular Filtration Rate 37 mL/min (>60); Est Glom Filt Rate - Afr Amer 45 mL/min (>60); Globulin 3.5 g/dL (2.2-4.2); Glucose 89 mg/dL (74-106); Magnesium 1.7 mg/dL (1.6-2.6); Phosphorus 3.1 mg/dL (2.5-4.9); Potassium 4.4 mmol/L (3.5-5.1); Sodium Level 135 mmol/L (136-145); T4 Free Direct 1.16 ng/dL (0.76-1.46); Thyroid Stim Hormone (TSH) 9.75 uIU/mL (0.358-3.74)
[2021-11-16 08:20] LABS: PTHIN 74.2 pg/mL (18.4-80.1)
== END | disposition home or self-care (01) ==
LOC: MFPLAB 16:09
PROVIDERS: PCP Family Medicine; Visit Provider Family Medicine
DX: R82.81 Pyuria (principal); I48.91 Unspecified atrial fibrillation; N18.30 Chronic kidney disease, stage 3 unspecified; E03.9 Hypothyroidism, unspecified
CPT/HCPCS: 36415; 80053; 81001; 82570; 83735; 83970; 84100; 84156; 84439; 84443; 85025; 87077; 87086; 87088; 87186

== ENCOUNTER 2021-11-27 09:30 | Emergency (ER) | payer MEDICARE, SELFPAY ==
[2017-06-01 08:52] VITALS: BMI 24.1
[2021-11-27 09:31] VITALS: BP 85/75; PULSE 61; RESP 19; TEMP 36.4; O2SAT 94; BMI 26.2
[2021-11-27 09:46] VITALS: BP 107/95; PULSE 61; RESP 20; O2SAT 98
--- NOTE | 2021-11-27 10:10 | EKG12_ITS ---
Test Reason : FALL Blood Pressure : / mmHG Vent. Rate : 060 BPM Atrial Rate : 060 BPM P-R Int : 224 ms QRS Dur : 150 ms QT Int : 506 ms P-R-T Axes : 055 -27 081 degrees QTc Int : 506 ms AV dual-paced rhythm with prolonged AV conduction Abnormal ECG Confirmed by CONCHIS ALCALA, SUREKHA ([id number]), continuity editor BINU GONGORA ([id number]) on 11/28/2021 10:24:13 AM Referred By: JEFFREY Confirmed By:SUREKHA BALDERRAMA MD
--- NOTE | 2021-11-27 10:10 | CT_ITS ---
HISTORY: fall, headache. TECHNIQUE: Multiple axial images were obtained of the head without intravenous contrast. A radiation dose optimization technique was used for this scan. 233 images. COMPARISON: 08/17/2019. FINDINGS: BRAIN PARENCHYMA: Multiple foci and zones of low attenuation in the bilateral cerebral white matter compatible with chronic small vessel ischemic gliosis. No acute intra-axial hemorrhage identified. CSF SPACES: Mild generalized volume loss. No midline shift or other significant mass effect. No acute extra-axial hemorrhage seen. OTHER: Intact calvarium. No significant air-fluid levels in the paranasal sinuses or mastoid air cells. Bilateral lens resections. CT/Brain/Head without Contrast IMPRESSION: No acute intracranial process identified. Chronic small vessel ischemic gliosis. Electronically Signed: Bette Irene MD at 11:01 EDT ,
--- NOTE | 2021-11-27 10:11 | EDS_ITS ---
HPI HPI - Fall History of Present Illness Chief Complaint: Fall Detail of Chief Complaint: Presents complaint of not feeling well and a fall this morning Informant: patient Narrative Narrative: Patient presents to the emergency department stating that she is not been feeling well for about 2 months. Patient states that she has been telling her doctors that she has been dizzy and nobody will believe her. Patient try to get out of bed this morning and was feeling woozy. Patient felt like she needed to get to the door to unlock the deadbolt and as she was getting out of bed she fell to the ground and could not get up. Patient denies striking her head or loss consciousness. She is on Eliquis for history of A. fib. She denies chest pain or shortness of breath. She denies fever although she had some sweats last night. Patient currently being treated for UTI and has 3 more days of antibiotics left. Patient lives alone. She has had a cough. She has had the COVID-vaccine. Patient has been having frequent headaches. Patient's had a headache since yesterday. She did vomit 3 times today. She denies any diarrhea. [facility] Medical History Anxiety Atherosclerotic heart disease of [place] coronary artery without angina pectoris Atrial fibrillation with rapid ventricular response (01/21/20) Bilateral carotid artery stenosis Bone spur of foot Complete heart block COPD (chronic obstructive pulmonary disease) Diverticulosis Dizziness and giddiness Essential (primary) hypertension Fatigue Ganglion cyst of left foot GERD (gastroesophageal reflux disease) Hyperlipidemia Hypothyroidism Intermittent chest pain Lichen sclerosus Nonrheumatic mitral (valve) prolapse NSTEMI (non-ST elevated myocardial infarction) (05/30/17) Osteoarthritis Paroxysmal atrial fibrillation Paroxysmal atrial flutter Right bundle branch block (RBBB) with left anterior fascicular block Right pulmonary embolus (08/17/19) Sick sinus syndrome Home Medications cholecalciferol (vitamin D3) 25 mcg (1,000 unit) tablet 1,000 unit PO DAILY SUPP LEMENT 04/16/15 [History Last Taken 01/19/20] lisinopril 10 mg tablet 10 mg PO DAILY #90 tabs 06/08/17 [Rx Last Taken 04/19/20] nitroglycerin 0.4 mg sublingual tablet 0.4 mg sublingual Q5-15M PRN chest pain #25 tabs 08/03/18 [Rx Last Taken Unknown] pyridoxine (vitamin B6) 50 mg tablet 50 mg PO DAILY supplement 01/20/20 [History Last Taken 01/19/20] albuterol sulfate 2.5 mg/0.5 mL solution for nebulization 2.5 mg inhalation Q4H PRN 08/20/20 [History Last Taken Unknown] atorvastatin 40 mg tablet 20 mg PO Q OTHER DAY cholesterol 08/20/20 [History Last Taken Unknown] lansoprazole 15 mg capsule,delayed release 15 mg PO DAILY 08/20/20 [History Last Taken Unknown] meclizine 25 mg tablet 25 mg PO DAILY PRN 08/20/20 [History Last Taken Unknown] montelukast 10 mg tablet 10 mg PO DAILY 08/20/20 [History Last Taken Unknown] tiotropium bromide 2.5 mcg/actuation mist for inhalation (Spiriva Respimat) 2 puff inhalation DAILY 08/20/20 [History Last Taken Unknown] metoprolol tartrate 50 mg tablet 25 mg PO BID #90 tabs 09/30/20 [Rx Last Taken Unknown] apixaban 5 mg tablet 5 mg PO BID blood thinner #180 tabs 02/23/21 [Rx Last Taken Unknown] amiodarone 200 mg tablet 200 mg PO DAILY 05/24/21 [History Last Taken Unknown] levothyroxine 88 mcg tablet 88 mcg PO DAILY 05/27/21 [History Last Taken Unknown] Allergy/AdvReac Type Severity Reaction Status Date / Time Penicillins [PCN] Allergy Hives Verified 11/27/21 09:37 aspirin AdvReac Severe Severe GI Verified 11/27/21 09:37 upset atorvastatin AdvReac Severe elevated Verified 11/27/21 09:37 liver enzymes metformin AdvReac gi upset Verified 11/27/21 09:37 Family History Father Cancer lung cancer Heart disease Mother CVA (cerebral vascular accident) Hypertension Sister Hypertension Cancer lung cancer Son Diabetes Hypertension Myocardial infarction, Onset Age: 48 Surgical History H/O bladder repair surgery H/O excision of ganglion cyst History of appendectomy History of back surgery History of cardioversion (04/19/20) History of carpal tunnel release History of coronary artery stent placement (05/31/17) History of hysterectomy History of left heart catheterization (09/10/17) Presence of permanent cardiac pacemaker (04/19/15) Social History Smoking Status: Former smoker alcohol intake: never substance use type: does not use caffeine: Yes Type: coffee Number of servings: 3 what type of physical activity do you participate in: none seatbelt use: always do you feel safe at home: Yes ROS ROS ED Review of Systems ROS Unobtainable: other Constitutional Constitutional ED: Reports lethargy; Denies chills, fever(s), sweats or weight loss Eyes Eyes: Denies blurry vision, change in vision or diplopia ENT ENT ED: Denies rhinorrhea or sore throat Cardiovascular Cardiovascular: Reports racing heartbeat; Denies chest pain or orthopnea Respiratory/Chest Respiratory/Chest: Reports cough, dyspnea and dyspnea on exertion; Denies orthopnea or sputum Gastrointestinal Gastrointestinal: Denies abdominal pain, diarrhea, nausea or vomiting Genitourinary Genitourinary ED: Denies dysuria, hematuria or urinary frequency Musculoskeletal Musculoskeletal: Denies arthralgias, back pain, myalgias or neck pain Integumentary Denies abscess, Abrasions or rash Neurologic Neurologic: Reports headache(s) and other Details: Dizziness, generalized weakness ; Denies weakness Psychiatric Psychiatric: Denies anxiety, depression or suicidal thoughts Endocrine Endocrinology: Denies polydipsia, polyphagia or polyuria Hematologic/Lymphatic Hematologic/Lymphatic: Denies easy bleeding, easy bruising or lymphadenopathy Allergic/Immunologic Allergic/Immunologic ED: Denies mouth swelling, tongue swelling or urticaria EXAM Physical Exam Const Vital Signs: 11/27/21 09:31 11/27/21 09:46 11/27/21 10:27 Temperature 97.5 F L Temperature Source Temporal Pulse Rate 61 61 Pulse Rate [Lying] 60 Pulse Rate [Sitting (for 1 minute prior to obtaining)] 60 Pulse Rate [Standing (for 1 minute prior to obtaining)] 60 Respiratory Rate 19 H 20 H Blood Pressure 85/75 L 107/95 H Blood Pressure [Lying] 127/56 H Blood Pressure [Sitting (for 1 minute prior to obtaining)] 133/58 H Blood Pressure [Standing (for 1 minute prior to obtaining)] 111/56 L Blood Pressure Mean 78 99 Blood Pressure Mean [Lying] 79 Blood Pressure Mean [Sitting (for 1 minute prior to obtaining)] 83 Blood Pressure Mean [Standing (for 1 minute prior to obtaining)] 74 Pulse Ox 94 98 Oxygen Delivery Method Nasal Cannula Nasal Cannula Oxygen Flow Rate (L/min) 2 2 11/27/21 14:00 Temperature Temperature Source Pulse Rate 68 Pulse Rate [Lying] Pulse Rate [Sitting (for 1 minute prior to obtaining)] Pulse Rate [Standing (for 1 minute prior to obtaining)] Respiratory Rate 24 H Blood Pressure 137/58 H Blood Pressure [Lying] Blood Pressure [Sitting (for 1 minute prior to obtaining)] Blood Pressure [Standing (for 1 minute prior to obtaining)] Blood Pressure Mean 84 Blood Pressure Mean [Lying] Blood Pressure Mean [Sitting (for 1 minute prior to obtaining)] Blood Pressure Mean [Standing (for 1 minute prior to obtaining)] Pulse Ox 97 Oxygen Delivery Method Room Air Oxygen Flow Rate (L/min) Positive well nourished and well developed General Appearance ED: well developed and NAD HEENT Reports TM's clear and moist mucous membranes normocephalic and atraumatic; Negative for trauma or tenderness Tympanic Membrane ED: Yes TM's clear Eyes PERRL and EOMs intact bilaterally General Eye ED: Negative for pale conjunctiva or scleral icterus Neck no lymphadenopathy, supple and no JVD General: Negative for tenderness Chest Wall inspection of chest normal and palpation of chest normal Chest: Negative for tenderness Resp normal respiratory effort and clear to auscultation bilaterally Effort and Inspection: Negative for respiratory distress or pain with movement Auscultation: Negative for rhonchi, wheezes or diminished lung sounds Cardio regular rate, regular rhythm, S1 normal heart sound, S2 normal heart sound and no murmurs Peripheral Pulses: pulses 2+ throughout GI normal to inspection, nondistended, normoactive bowel sounds, soft to palpation, non-tender, non-distended and no masses Back/Spine no CVA tenderness and no thoracic nor lumbar tenderness Extremity normal to inspection General Extremety ED: Negative for edema General Extremity: Negative for edema Neuro oriented x3, CN's II-XII intact bilaterally, no sensory deficits noted and gait normal Neuro Narrative: No focal deficits noted. NIH stroke scale 0. Sensorium / Orientation: awake, alert, oriented to person, oriented to place and oriented to time Motor Exam: strength 5/5 throughout and strength abnormal Psych mental status grossly normal Skin no rashes or lesions noted and no wounds MDM MDM MDM Narrative Medical decision making narrative: IV line established on arrival. Patient placed on a nuclear monitoring technician. Orthostatic vital signs were negative. CT scan of the brain without contrast was unremarkable. Patient had a CBC with differential that showed a slightly elevated white count of 15.1 and etiology of this is unclear. Chemistries unremarkable. Troponin was normal. Urinalysis was unremarkable. EKG showed a paced rhythm. At this point I discussed with patient that she has had the symptoms for several months and etiology is unclear. She describes vertiginous type symptoms and has not seen a neurologist. I will refer her to local neurologist that she would like to go home and does not want to be admitted at this time. Lab Data Attestation: I reviewed the patient's lab results. Labs: Laboratory Results - last 24 hr 11/27/21 11/27/21 11/27/21 09:34 09:34 13:45 WBC 15.1 H RBC 3.64 L Hgb 12.4 Hct 35.5 L MCV 97.5 MCH 34.1 H MCHC 34.9 RDW Std Deviation 45.6 H RDW Coeff of Guy 12.7 Plt Count 235 MPV 9.3 Immature Gran % (Auto) 0.500 Neut % (Auto) 88.7 H Lymph % (Auto) 4.8 L [place] % (Auto) 5.8 Eos % (Auto) 0.1 Baso % (Auto) 0.1 Absolute Neuts (auto) 13.4 H Absolute Lymphs (auto) 0.73 L Nucleated RBC % 0 Sodium 134 L Potassium 4.1 Chloride 101 Carbon Dioxide 25.0 Anion Gap 8 BUN 19 H Creatinine 1.19 H Estim Creat Clear Calc 31.67 Est GFR (MDRD) Af Amer 56 L Est GFR (MDRD) Non-Af 46 L BUN/Creatinine Ratio 16.0 Glucose 181 H Calcium 9.1 Troponin I High Sens 7 Urine Color Yellow Urine Clarity Clear Urine pH 6.5 Ur Specific [place] 1.010 Urine Protein 15 H Urine Glucose (UA) Normal Urine Ketones Negative Urine Occult Blood Negative Urine Nitrite Negative Urine Bilirubin Negative Urine Urobilinogen 1 H Ur Leukocyte Esterase 25 H Urine RBC 0 SEEN Urine WBC 0-5 SEEN Ur Squamous Epith Cells 0 SEEN Urine Bacteria 1+ Urine Mucus 0 SEEN Radiography Diagnostic Testing: Clinical Impression(s) from Imaging Studies Brain CT 11/27/21 10:10 IMPRESSION: No acute intracranial process identified. Chronic small vessel ischemic gliosis. Electronically Signed: Bette Irene MD at 11:01 EDT Reading Location ID and State: [facility] / [place] Tel , Service support , EKG Initial EKG: Attestation: I personally reviewed and interpreted this EKG as follows: Comments: AV dual paced rhythm with prolonged AV conduction Discharge Plan Triage Chief Complaint: Fall ED Provider: Elroy Pardo Dx/Rx/DC Orders Clinical Impression: Dizziness, Headache Instructions: ED Dizziness, Uncertain Cause, ED Fall Prevention Prescriptions: No Action lisinopril 10 mg tablet 10 mg PO DAILY Qty: 90 3RF Spiriva Respimat 2.5 mcg/actuation mist 2 puff inhalation DAILY montelukast 10 mg tablet 10 mg PO DAILY Label Comments: TAKE 1 TABLET BY MOUTH EVERY DAY lansoprazole 15 mg capsule,delayed release(DR/EC) 15 mg PO DAILY Label Comments: TAKE 1 CAPSULE BY MOUTH EVERY DAY albuterol sulfate 2.5 mg/0.5 mL solution for nebulization 2.5 mg inhalation Q4H PRN meclizine 25 mg tablet 25 mg PO DAILY PRN amiodarone 200 mg tablet 200 mg PO DAILY cholecalciferol (vitamin D3) 1,000 UNIT tablet 1,000 unit PO DAILY Label Comments: SUPPLEMENT pyridoxine (vitamin B6) 50 MG tablet 50 mg PO DAILY atorvastatin 40 mg tablet 20 mg PO Q OTHER DAY nitroglycerin 0.4 mg tablet, sublingual 0.4 mg SUBLINGUAL Q5-15M PRN (Reason: chest pain) Qty: 25 3RF Rx Instructions: until response; do not exceed 3 doses per episode metoprolol tartrate 50 mg tablet 25 mg PO BID Qty: 90 3RF apixaban 5 mg tablet 5 mg PO BID Qty: 180 3RF levothyroxine 88 mcg tablet 88 mcg PO DAILY Primary Care Provider: Jian Viveros Referrals: Jian Viveros MD [Primary Care Provider] - Ernesto Story MD [Non-Staff -Ordering Privileges] - 3-5 Days Disposition Disposition: Home, Self Care
[2021-11-27 10:27] VITALS: BP 111/56; BP 127/56; BP 133/58; PULSE 60
[2021-11-27 10:35] LABS: Absolute Lymphocyte Count 0.73 X10^3/uL (0.83-4.51); Absolute Neutrophil Count 13.4 X10^3/uL (2.0-7.7); Basophil# 0.02 X10^3/uL; Basophil% 0.1 % (0-1); Eosinophil# 0.02 X10^3/uL; Eosinophils% 0.1 % (0-5); Hematocrit 35.5 % (37-47); Hemoglobin 12.4 g/dL (12.0-15.0); Lymphocyte # 0.73 X10^3/ul (0.83-4.51); Lymphocyte % 4.8 % (19-41); Mean Corp Hgb Conc 34.9 g/dL (32-36); Mean Corpuscular Hgb 34.1 pg (27.0-32.0); Mean Corpuscular Volume 97.5 fL (81-99); Mean Platelet Vol. 9.3 fl (6.2-12.0); Monocyte# 0.87 X10^3/uL; Monocyte% 5.8 % (0-10); NRBC Flagged by Analyzer 0 % (0-5); Neutrophil % 88.7 % (47-70); Platelet Count 235 K/mm3 (150-450); RBC Distribution Width CV 12.7 % (11.6-14.6); RBC Distribution Width SD 45.6 fl (35.1-43.9); Red Blood Count 3.64 M/mm3 (4.2-5.4); White Blood Count 15.1 K/mm3 (4.4-11.0)
[2021-11-27] MEDS: 0.9% Normal Saline 1,000 ML 150 ML IV (10:38)
[2021-11-27 10:45] LABS: Anion Gap 8 (5-15); BUN 19 mg/dL (7-18); Calcium,Total 9.1 mg/dL (8.5-10.1); Chloride 101 mmol/L (98-107); Creatinine, Serum 1.19 mg/dL (0.55-1.02); EST Glomerular Filtration Rate 46 mL/min (>60); Est Glom Filt Rate - Afr Amer 56 mL/min (>60); Estimated Creatinine Clearance 31.67 ml/min; Glucose 181 mg/dL (74-106); Potassium 4.1 mmol/L (3.5-5.1); Sodium Level 134 mmol/L (136-145); Troponin-I HS 7 pg/mL (3.0-54.0)
[2021-11-27 13:53] LABS: Mucous, Urine 0 SEEN /hpf (<or=2+); Red Blood Cells-Urine 0 SEEN /hpf (0-5); Squamous Epithelial Cells - UA 0 SEEN /hpf (5-10)
[2021-11-27 13:59] LABS: Color, Urine Yellow (Yellow); Glucose, Dipstick Normal (Normal); Ketone-Dipstick Negative (Negative); Leukocyte Esterase-Dipstick 25 /ul (Negative); Nitrite-Dipstick Negative (Negative); Occult Blood-Urine Negative /ul (Negative); Protein-Dipstick 15 mg/dl (Negative); Urine Bilirubin Dipstick Negative (Negative); Urine Clarity Clear (Clear); Urine Urobilinogen 1 mg/dl (Normal); Urine pH 6.5 (5.0 - 8.0)
[2021-11-27 14:00] VITALS: BP 137/58; PULSE 68; RESP 24; O2SAT 97
[2021-11-27 14:21] LABS: Bacteria 1+ /hpf (None Seen); White Blood Cells 0-5 SEEN /hpf (0-5)
== END 2021-11-27 15:15 | disposition home or self-care (01) ==
PROVIDERS: Emergency Provider Emergency Medicine; PCP Family Medicine; Visit Provider Emergency Medicine
DX: R42 Dizziness and giddiness (principal); J44.9 Chronic obstructive pulmonary disease, unspecified; I48.91 Unspecified atrial fibrillation; E78.5 Hyperlipidemia, unspecified; I25.10 Atherosclerotic heart disease of native coronary artery without angina pectoris; Z87.891 Personal history of nicotine dependence; I10 Essential (primary) hypertension; R51.9 Headache, unspecified; I25.2 Old myocardial infarction
CPT/HCPCS: 70450; 80048; 81001; 84484; 85025; 87811; 93005; 99285; J7030; A4216

== ENCOUNTER 2021-12-04 16:22 | Observation (INO) | payer MEDICARE, SELFPAY ==
[2017-06-01 08:52] VITALS: BMI 24.1
[2021-12-04] VITALS (7 sets, daily range): BP systolic 97–144; BP diastolic 46–90; PULSE 62–65; RESP 18–30; TEMP 36.7–36.9; O2SAT 95–100; BMI 22.9; BMI 22.8
--- NOTE | 2021-12-04 17:03 | EKG12_ITS ---
Test Reason : WEAKNESS Blood Pressure : / mmHG Vent. Rate : 064 BPM Atrial Rate : 064 BPM P-R Int : 234 ms QRS Dur : 148 ms QT Int : 482 ms P-R-T Axes : 077 -10 084 degrees QTc Int : 497 ms Atrial-sensed ventricular-paced rhythm with prolonged AV conduction Abnormal ECG Confirmed by CONCHIS ALCALA, SUREKHA ([id number]), video tape editor BINU GONGORA ([id number]) on 12/05/2021 10:54:35 AM Referred By: Confirmed By:SUREKHA BALDERRAMA MD
--- NOTE | 2021-12-04 17:06 | EDS_ITS ---
HPI <LOLIS Valera - Last Filed: 12/04/21 19:15> History of Present Illness Chief Complaint: Weakness Narrative Narrative: 86-year-old female with past medical history of HTN, HLD, COPD, A. fib, pacemaker presents with acute on chronic issues. She states she finished antibiotics for UTI within the last 2 weeks. A week ago she was at the hospital for chronic issues of feeling dizzy, intermittently short of breath. They did not find any acute cause. She states she was unable to schedule appointments with her PCP or case finisher. She is having similar issues where she feels short of breath especially with exertion. She tells me she was on home oxygen about a year ago but her machine . 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 She is a former smoker. She also feels hot and shaky all over intermittently. She is not been eating and drinking much. Her neighbor who is present at bedside checks on her and does not feel she is managing well on her own. Patient has adult children but they are not closely involved or in the area. [facility] <LOLIS Valera - Last Filed: 12/04/21 19:15> [facility] Medical History Anxiety Atherosclerotic heart disease of [place] coronary artery without angina pectoris Atrial fibrillation with rapid ventricular response (01/21/20) Bilateral carotid artery stenosis Bone spur of foot Complete heart block COPD (chronic obstructive pulmonary disease) Diverticulosis Dizziness and giddiness Essential (primary) hypertension Fatigue Ganglion cyst of left foot GERD (gastroesophageal reflux disease) Hyperlipidemia Hypothyroidism Intermittent chest pain Lichen sclerosus Nonrheumatic mitral (valve) prolapse NSTEMI (non-ST elevated myocardial infarction) (05/30/17) Osteoarthritis Paroxysmal atrial fibrillation Paroxysmal atrial flutter Right bundle branch block (RBBB) with left anterior fascicular block Right pulmonary embolus (08/17/19) Sick sinus syndrome Home Medications cholecalciferol (vitamin D3) 25 mcg (1,000 unit) tablet 1,000 unit PO DAILY SUPPLEMENT 04/16/15 [History Last Taken 12/03/21] lisinopril 10 mg tablet 10 mg PO DAILY #90 tabs 06/08/17 [Rx Last Taken 12/03/21 08:00] nitroglycerin 0.4 mg sublingual tablet 0.4 mg sublingual Q5-15M PRN chest pain #25 tabs 08/03/18 [Rx Last Taken Unknown] pyridoxine (vitamin B6) 50 mg tablet 50 mg PO DAILY supplement 01/20/20 [History Last Taken 12/03/21] albuterol sulfate 2.5 mg/0.5 mL solution for nebulization 2.5 mg inhalation Q4H PRN Shortness Of Breath 08/20/20 [History Last Taken Unknown] meclizine 25 mg tablet 25 mg PO DAILY PRN Vertigo 08/20/20 [History Last Taken Unknown] tiotropium bromide 2.5 mcg/actuation mist for inhalation (Spiriva Respimat) 2 puff inhalation DAILY COPD 08/20/20 [History Last Taken 12/03/21] apixaban 5 mg tablet 5 mg PO BID blood thinner #180 tabs 02/23/21 [Rx Last Taken 12/03/21 22:00] amiodarone 200 mg tablet 200 mg PO DAILY heart 05/24/21 [History Last Taken 12/03/21 08:00] levothyroxine 50 mcg tablet 50 mcg PO DAILY thyroid 12/04/21 [History Last Taken 12/03/21] metoprolol tartrate 50 mg tablet 25 mg PO DAILY heart 12/04/21 [History Last Taken 12/03/21 08:00] vit C 250 mg-vit E 90 mg-zinc 40 mg-copper 1 [id number] capsule (PreserVision AREDS-2) 1 cap PO BID eye health 12/04/21 [History Last Taken 12/03/21] Allergy/AdvReac Type Severity Reaction Status Date / Time Penicillins [PCN] Allergy Hives Verified 12/04/21 20:35 aspirin AdvReac Severe Severe GI Verified 12/04/21 20:35 upset atorvastatin AdvReac Severe elevated Verified 12/04/21 20:35 liver enzymes metformin AdvReac gi upset Verified 12/04/21 20:35 Family History Father Cancer lung cancer Heart disease Mother CVA (cerebral vascular accident) Hypertension Sister Hypertension Cancer lung cancer Son Diabetes Hypertension Myocardial infarction, Onset Age: 48 Surgical History H/O bladder repair surgery H/O excision of ganglion cyst History of appendectomy History of back surgery History of cardioversion (04/19/20) History of carpal tunnel release History of coronary artery stent placement (05/31/17) History of hysterectomy History of left heart catheterization (09/10/17) Presence of permanent cardiac pacemaker (04/19/15) Social History Smoking Status: Former smoker alcohol intake: never substance use type: does not use caffeine: Yes Type: coffee Number of servings: 3 what type of physical activity do you participate in: none seatbelt use: always do you feel safe at home: Yes ROS <LOLIS Valera - Last Filed: 12/04/21 19:15> ROS ED ROS Narrative Constitutional: Positive for chills, malaise. Negative for fever, chills. Eyes: Negative for visual change. ENT: Negative for sore throat, ear pain, rhinorrhea. CVS: Negative for palpitations, chest pain, syncope. Respiratory: Positive for shortness of breath. Negative for cough, orthopnea. GI: Negative for abdominal pain, nausea, vomiting, diarrhea, constipation, melena, hematochezia. : Negative for dysuria, hematuria or frequency. Neuro: Negative for headache, motor/sensory dysfunction. Skin: Negative for rash, abscess, or wound. Musc: Negative for joint pain, swelling, trauma. Heme: Negative for easy bruising, bleeding, lymphadenopathy. EXAM <LOLIS Valera - Last Filed: 12/04/21 19:15> Physical Exam Narrative Exam Narrative: CONST: Patient sitting in no acute distress. EYES: Normal inspection. ENT: Normal inspection, dry mucous membranes. NECK: Normal inspection. RESP: No respiratory distress, diminished lung sounds. CVS: Regular rate and rhythm, no murmur, no gallop. ABD: Soft and nontender, no guarding or rebound, nondistended. SKIN: Color normal, no rash, warm, dry, intact. EXTREMITIES: Normal appearance, no pedal edema. NEURO: Oriented x4. PSYCH: Normal affect. Const Vital Signs: 12/04/21 16:44 12/04/21 16:51 12/04/21 18:27 Temperature 98.5 F Temperature Source Oral Pulse Rate 65 62 Respiratory Rate 18 20 H Respiratory Effort Normal Respiratory Pattern Normal Blood Pressure 111/46 L 130/62 H Blood Pressure Mean 67 84 Pulse Ox 97 Oxygen Delivery Method Room Air Room Air <Dr. Dieter Sam DO - Last Filed: 12/05/21 00:42> Physical Exam Const Vital Signs: 12/04/21 16:44 12/04/21 16:51 12/04/21 18:27 Temperature 98.5 F Temperature Source Oral Pulse Rate 65 62 Respiratory Rate 18 20 H Respiratory Effort Normal Respiratory Pattern Normal Blood Pressure 111/46 L 130/62 H Blood Pressure Mean 67 84 Pulse Ox 97 Oxygen Delivery Method Room Air Room Air MDM <LOLIS Valera - Last Filed: 12/04/21 19:15> MDM MDM Narrative Medical decision making narrative: Patient presents with generalized weakness and chills. She also has chronic shortness of breath. She appears well and nontoxic. O2 levels between 88 and 92% she was she was placed on 2 L. She was on home oxygen over a year ago but her machine so this is likely from chronic COPD. Heart is regular and lungs are clear. Work-up shows leukocytosis trending up at 24.2 with bandemia. Lactate is 1.9. Creatinine is 1.43 and she appears to run between 1.0 and 1.4. UA has a mild UTI. Previous urine cultures have all been Klebsiella and were sensitive to Rocephin so this was given. Blood and urine cultures were sent. Chest x-ray shows no acute process. Case will be discussed with the hospitalist for admission. Lab Data Attestation: I reviewed the patient's lab results. Labs: Laboratory Results - last 24 hr 12/04/21 12/04/21 12/04/21 16:50 16:50 16:50 WBC 24.2 H RBC 3.74 L Hgb 12.5 Hct 37.3 MCV 99.7 H MCH 33.4 H MCHC 33.5 RDW Std Deviation 46.8 H RDW Coeff of Guy 12.9 Plt Count 283 MPV 9.2 Immature Gran % (Auto) 2.600 H Neut % (Auto) 94.4 H Lymph % (Auto) 1.0 L [place] % (Auto) 1.8 Eos % (Auto) 0.0 Baso % (Auto) 0.2 Absolute Neuts (auto) 22.9 H Absolute Lymphs (auto) 0.23 L Nucleated RBC % 0 Differential Comment SCANNED Sodium 137 Potassium 4.3 Chloride 102 Carbon Dioxide 25.0 Anion Gap 10 BUN 19 H Creatinine 1.48 H Estim Creat Clear Calc 25.46 Est GFR (MDRD) Af Amer 43 L Est GFR (MDRD) Non-Af 36 L BUN/Creatinine Ratio 12.8 Glucose 125 H Lactic Acid 1.9 Calcium 9.2 Urine Color Urine Clarity Urine pH Ur Specific [place] Urine Protein Urine Glucose (UA) Urine Ketones Urine Occult Blood Urine Nitrite Urine Bilirubin Urine Urobilinogen Ur Leukocyte Esterase Urine RBC Urine WBC Ur Squamous Epith Cells Urine Bacteria Urine Mucus 12/04/21 17:56 WBC RBC Hgb Hct MCV MCH MCHC RDW Std Deviation RDW Coeff of Guy Plt Count MPV Immature Gran % (Auto) Neut % (Auto) Lymph % (Auto) [place] % (Auto) Eos % (Auto) Baso % (Auto) Absolute Neuts (auto) Absolute Lymphs (auto) Nucleated RBC % Differential Comment Sodium Potassium Chloride Carbon Dioxide Anion Gap BUN Creatinine Estim Creat Clear Calc Est GFR (MDRD) Af Amer Est GFR (MDRD) Non-Af BUN/Creatinine Ratio Glucose Lactic Acid Calcium Urine Color Yellow Urine Clarity Clear Urine pH 6.5 Ur Specific [place] 1.010 Urine Protein 30 H Urine Glucose (UA) Normal Urine Ketones 5 H Urine Occult Blood Negative Urine Nitrite Negative Urine Bilirubin Negative Urine Urobilinogen 1 H Ur Leukocyte Esterase 25 H Urine RBC 0 SEEN Urine WBC 5-10 SEEN Ur Squamous Epith Cells 0-5 SEEN Urine Bacteria 1+ Urine Mucus 0 SEEN Radiography Diagnostic Testing: Clinical Impression(s) from Imaging Studies Chest X-Ray 12/04/21 18:09 IMPRESSION: Poor inspiration with some bibasilar atelectasis. Electronically Signed: Yonis Patel MD at 18:28 EDT , <Dr. Dieter Sam, DO - Last Filed: 12/05/21 00:42> [facility] Lab Data Labs: Laboratory Results - last 24 hr 12/04/21 12/04/2122 16:50 16:50 16:50 WBC 24.2 H RBC 3.74 L Hgb 12.5 Hct 37.3 MCV 99.7 H MCH 33.4 H MCHC 33.5 RDW Std Deviation 46.8 H RDW Coeff of Guy 12.9 Plt Count 283 MPV 9.2 Immature Gran % (Auto) 2.600 H Neut % (Auto) 94.4 H Lymph % (Auto) 1.0 L [place] % (Auto) 1.8 Eos % (Auto) 0.0 Baso % (Auto) 0.2 Absolute Neuts (auto) 22.9 H Absolute Lymphs (auto) 0.23 L Nucleated RBC % 0 Differential Comment SCANNED Sodium 137 Potassium 4.3 Chloride 102 Carbon Dioxide 25.0 Anion Gap 10 BUN 19 H Creatinine 1.48 H Estim Creat Clear Calc 25.46 Est GFR (MDRD) Af Amer 43 L Est GFR (MDRD) Non-Af 36 L BUN/Creatinine Ratio 12.8 Glucose 125 H Lactic Acid 1.9 Calcium 9.2 Urine Color Urine Clarity Urine pH Ur Specific [place] Urine Protein Urine Glucose (UA) Urine Ketones Urine Occult Blood Urine Nitrite Urine Bilirubin Urine Urobilinogen Ur Leukocyte Esterase Urine RBC Urine WBC Ur Squamous Epith Cells Urine Bacteria Urine Mucus 12/04/21 17:56 WBC RBC Hgb Hct MCV MCH MCHC RDW Std Deviation RDW Coeff of Guy Plt Count MPV Immature Gran % (Auto) Neut % (Auto) Lymph % (Auto) [place] % (Auto) Eos % (Auto) Baso % (Auto) Absolute Neuts (auto) Absolute Lymphs (auto) Nucleated RBC % Differential Comment Sodium Potassium Chloride Carbon Dioxide Anion Gap BUN Creatinine Estim Creat Clear Calc Est GFR (MDRD) Af Amer Est GFR (MDRD) Non-Af BUN/Creatinine Ratio Glucose Lactic Acid Calcium Urine Color Yellow Urine Clarity Clear Urine pH 6.5 Ur Specific [place] 1.010 Urine Protein 30 H Urine Glucose (UA) Normal Urine Ketones 5 H Urine Occult Blood Negative Urine Nitrite Negative Urine Bilirubin Negative Urine Urobilinogen 1 H Ur Leukocyte Esterase 25 H Urine RBC 0 SEEN Urine WBC 5-10 SEEN Ur Squamous Epith Cells 0-5 SEEN Urine Bacteria 1+ Urine Mucus 0 SEEN Radiography Chest X-Ray - ED: 1 View, Read by ED Physician, Read by Radiologist and No Acute Disease Diagnostic Testing: Clinical Impression(s) from Imaging Studies Chest X-Ray 12/04/21 18:09 IMPRESSION: Poor inspiration with some bibasilar atelectasis. Electronically Signed: Yonis Patel MD at 18:28 EDT , Treatment and Re-Evaluation Narrative: I have personally performed a face to face assessment of the patient and have reviewed the SILVER Note. I performed a substantive portion of the visit including all aspects of the following. My morel findings include: History: Patient presents with generalized weakness that has been getting worse over the past week. Patient was seen here last week for this. Patient had negative work-up and was discharged home. Patient states her weakness is getting progressively worse. Patient denies any chest pain. Patient admits to some shortness of breath. Patient denies any nausea or vomiting. Patient denies any fevers or chills. Exam: Vital signs are stable. Patient is afebrile. Patient is in no acute distress. Oral mucosa is pink and moist. Neck is supple. Trachea is midline. There is no JVD. Heart was regular rate and rhythm. Lungs are clear and equal bilaterally. Abdomen is soft. Bowel sounds are normal. There is no tenderne ss. Cranial nerves II through XII are intact. There are no focal motor or sensory deficits noted. Medical Decision Making: EKG was obtained. On my interpretation, there is a normal sinus rhythm. There are no acute ST or T wave changes. Portable 1 view chest x-ray was obtained. On my interpretation, lung barreto are clear. There is normal cardiac silhouette. Bony thorax is normal. There is no acute process noted. Radiologist also interpreted the x-ray and agrees. CBC shows a leukocytosis of 24.2. Basic metabolic profile was within normal limits. Urinalysis shows leukocyte esterase of 25 with 5-10 white blood cells and 1+ bacteria. Urine culture was ordered. Patient was started on Rocephin here. Patient was admitted to the hospital due to weakness and urinary tract infection. Patient understood and was agreeable with the plan. All questions were answered. Discharge Plan Dx/Rx/DC Orders Clinical Impression: Acute UTI, Generalized weakness, Chronic obstructive pulmonary disease with hypoxia Disposition Disposition: Acute Care Hospital [facility] Discharge Date/Time: 12/04/21 20:15
[2021-12-04 17:28] LABS: Absolute Lymphocyte Count 0.23 X10^3/uL (0.83-4.51); Absolute Neutrophil Count 22.9 X10^3/uL (2.0-7.7); Basophil# 0.04 X10^3/uL; Basophil% 0.2 % (0-1); Eosinophil# 0.01 X10^3/uL; Hematocrit 37.3 % (37-47); Hemoglobin 12.5 g/dL (12.0-15.0); Lymphocyte # 0.23 X10^3/ul (0.83-4.51); Mean Corp Hgb Conc 33.5 g/dL (32-36); Mean Corpuscular Hgb 33.4 pg (27.0-32.0); Mean Corpuscular Volume 99.7 fL (81-99); Mean Platelet Vol. 9.2 fl (6.2-12.0); Monocyte# 0.43 X10^3/uL; Monocyte% 1.8 % (0-10); NRBC Flagged by Analyzer 0 % (0-5); Neutrophil # 22.86 X10^3/uL (2.7-7.7); Neutrophil % 94.4 % (47-70); POSITIVE DIFFERENTIAL YES; Platelet Count 283 K/mm3 (150-450); RBC Distribution Width CV 12.9 % (11.6-14.6); RBC Distribution Width SD 46.8 fl (35.1-43.9); Red Blood Count 3.74 M/mm3 (4.2-5.4); White Blood Count 24.2 K/mm3 (4.4-11.0)
[2021-12-04 17:38] LABS: Differential Indicated SCAN CRITERIA MET
[2021-12-04 17:45] LABS: Anion Gap 10 (5-15); BUN 19 mg/dL (7-18); BUN/Creat Ratio 12.8 RATIO (10-20); Calcium,Total 9.2 mg/dL (8.5-10.1); Chloride 102 mmol/L (98-107); Creatinine, Serum 1.48 mg/dL (0.55-1.02); EST Glomerular Filtration Rate 36 mL/min (>60); Est Glom Filt Rate - Afr Amer 43 mL/min (>60); Estimated Creatinine Clearance 25.46 ml/min; Glucose 125 mg/dL (74-106); Potassium 4.3 mmol/L (3.5-5.1); Sodium Level 137 mmol/L (136-145)
[2021-12-04] MEDS: 0.9% Normal Saline 1,000 ML 999 ML IV (17:50)
[2021-12-04 18:02] LABS: Mucous, Urine 0 SEEN /hpf (<or=2+); Red Blood Cells-Urine 0 SEEN /hpf (0-5)
[2021-12-04 18:05] LABS: Differential Comment SCANNED
--- NOTE | 2021-12-04 18:09 | RAD_ITS ---
STUDY: X-RAY CHEST REASON FOR EXAM: Female, 86 years old. dyspnea TECHNIQUE: Single AP portable view of the chest. COMPARISON: 01/20/2020 FINDINGS: Right subclavian dual-lead pacemaker. Poor inspiration with some bibasilar atelectasis. There is no demonstrated pleural abnormality. Normal size heart. Normal mediastinum and nida. Normal visualized pulmonary arteries. Normal visualized aortic arch and descending thoracic aorta. Normal visualized thoracic spine. Normal visualized ribs, clavicles, and shoulders. There is no demonstrated abnormality of the visualized soft tissue structures of the upper abdomen. RAD/Chest 1 View (Portable) IMPRESSION: Poor inspiration with some bibasilar atelectasis. Electronically Signed: Yonis Patel MD at 18:28 EDT ,
[2021-12-04 18:12] LABS: Color, Urine Yellow (Yellow); Glucose, Dipstick Normal (Normal); Ketone-Dipstick 5 mg/dl (Negative); Leukocyte Esterase-Dipstick 25 /ul (Negative); Nitrite-Dipstick Negative (Negative); Occult Blood-Urine Negative /ul (Negative); Protein-Dipstick 30 mg/dl (Negative); Urine Bilirubin Dipstick Negative (Negative); Urine Clarity Clear (Clear); Urine Urobilinogen 1 mg/dl (Normal); Urine pH 6.5 (5.0 - 8.0)
[2021-12-04 18:26] LABS: Bacteria 1+ /hpf (None Seen); Squamous Epithelial Cells - UA 0-5 SEEN /hpf (5-10); White Blood Cells 5-10 SEEN /hpf (0-5)
[2021-12-04 19:11] LABS: Lactic Acid 1.9 mmol/L (0.4-1.9)
[2021-12-04] MEDS: Ceftriaxone 1 GM/50 ML BAG IV (19:21)
--- NOTE | 2021-12-04 19:27 | PCM.HP.STD ---
[facility] - General General Date of Admission: 12/04/21 Date of Service: 12/04/21 Chief Complaint: weakness HPI Narrative MICK CHINCHILLA, is a 86 F with a significant history of atrial fibrillation; former smoker; hypothyroidism; COPD; CAD status post stent and permanent pacemaker who presents to the emergency department with progressively worsening weakness that started the same day of presentation. Reportedly she was so weak that her legs looked like rubber. She reports chills and rigors. She has a wet cough but is unable to exploit her sputum. She reports shortness of breath at rest. She reports anorexia. She reports blurry vision. Of note she was at the ED a week ago for malaise and fall and she was discharged home. [facility] Medical History Anxiety Atherosclerotic heart disease of [place] coronary artery without angina pectoris Atrial fibrillation with rapid ventricular response (01/21/20) Bilateral carotid artery stenosis Bone spur of foot Complete heart block COPD (chronic obstructive pulmonary disease) Diverticulosis Dizziness and giddiness Essential (primary) hypertension Fatigue Ganglion cyst of left foot GERD (gastroesophageal reflux disease) Hyperlipidemia Hypothyroidism Intermittent chest pain Lichen sclerosus Nonrheumatic mitral (valve) prolapse NSTEMI (non-ST elevated myocardial infarction) (05/30/17) Osteoarthritis Paroxysmal atrial fibrillation Paroxysmal atrial flutter Right bundle branch block (RBBB) with left anterior fascicular block Right pulmonary embolus (08/17/19) Sick sinus syndrome Home Medications cholecalciferol (vitamin D3) 25 mcg (1,000 unit) tablet 1,000 unit PO DAILY SUPPLEMENT 04/16/15 [History Last Taken 01/19/20] lisinopril 10 mg tablet 10 mg PO DAILY #90 tabs 06/08/17 [Rx Last Taken 04/19/20] nitroglycerin 0.4 mg sublingual tablet 0.4 mg sublingual Q5-15M PRN chest pain #25 tabs 08/03/18 [Rx Last Taken Unknown] pyridoxine (vitamin B6) 50 mg tablet 50 mg PO DAILY supplement 01/20/20 [History Last Taken 01/19/20] albuterol sulfate 2.5 mg/0.5 mL solution for nebulization 2.5 mg inhalation Q4H PRN Shortness Of Breath 08/20/20 [History Last Taken Unknown] meclizine 25 mg tablet 25 mg PO DAILY PRN Vertigo 08/20/20 [History Last Taken Unknown] montelukast 10 mg tablet 10 mg PO DAILY 08/20/20 [History Last Taken Unknown] tiotropium bromide 2.5 mcg/actuation mist for inhalation (Spiriva Respimat) 2 puff inhalation DAILY 08/20/20 [History Last Taken Unknown] metoprolol tartrate 50 mg tablet 25 mg PO BID #90 tabs 09/30/20 [Rx Last Taken Unknown] apixaban 5 mg tablet 5 mg PO BID blood thinner #180 tabs 02/23/21 [Rx Last Taken Unknown] amiodarone 200 mg tablet 200 mg PO DAILY 05/24/21 [History Last Taken Unknown] levothyroxine 88 mcg tablet 88 mcg PO DAILY 05/27/21 [History Last Taken Unknown] Allergy/AdvReac Type Severity Reaction Status Date / Time Penicillins [PCN] Allergy Hives Verified 12/04/21 16:54 aspirin AdvReac Severe Severe GI Verified 12/04/21 16:54 upset atorvastatin AdvReac Severe elevated Verified 12/04/21 16:54 liver enzymes metformin AdvReac gi upset Verified 12/04/21 16:54 Family History Father Cancer lung cancer Heart disease Mother CVA (cerebral vascular accident) Hypertension Sister Hypertension Cancer lung cancer Son Diabetes Hypertension Myocardial infarction, Onset Age: 48 Surgical History H/O bladder repair surgery H/O excision of ganglion cyst History of appendectomy History of back surgery History of cardioversion (04/19/20) History of carpal tunnel release History of coronary artery stent placement (05/31/17) History of hysterectomy History of left heart catheterization (09/10/17) Presence of permanent cardiac pacemaker (04/19/15) Social History Smoking Status: Former smoker alcohol intake: never substance use type: does not use caffeine: Yes Type: coffee Number of servings: 3 what type of physical activity do you participate in: none seatbelt use: always do you feel safe at home: Yes ROS ROS Narrative Pertinent positives and pertinent negatives as noted in HPI. All other systems were reviewed and are negative Vital Signs Vital Signs Vital Signs: 12/04/21 16:44 12/04/21 16:51 12/04/21 18:27 Temperature 98.5 F Temperature Source Oral Pulse Rate 65 62 Respiratory Rate 18 20 H Respiratory Effort Normal Respiratory Pattern Normal Blood Pressure 111/46 L 130/62 H Blood Pressure Mean 67 84 Pulse Ox 97 Oxygen Delivery Method Room Air Room Air Oxygen Flow Rate (L/min) 12/04/21 19:26 Temperature 98.1 F Temperature Source Oral Pulse Rate 62 Respiratory Rate 30 H Respiratory Effort Respiratory Pattern Blood Pressure 97/71 Blood Pressure Mean 79 Pulse Ox 95 Oxygen Delivery Method Nasal Cannula Oxygen Flow Rate (L/min) 2 Weight Weight: 62.5 kg Body Mass Index (BMI) 22.9 Physical Exam Narrative Physical exam: General: Well-nourished, well-developed. Head: Normocephalic, atraumatic, no tenderness Eyes: Vision is grossly intact. EOMI ENT, no trauma, moist mucous membranes, no rhinorrhea Neck: Nontender, full range of motion. CVS: Regular rate and rhythm. S1-S2 present. No murmur, gallop or rub. Respiratory : Diminished. No wheezes at the anterior right chest. Abdomen: Soft, nontender, nondistended, normal bowel sounds, no masses : Deferred Back: Nontender, no CVA tenderness, no midline spinal tenderness. Extremities: Nontender full range of motion, no trauma Skin: Normal color, no trauma, abrasions Neuro: Alert, oriented, cranial nerves II through XII grossly intact. Psychiatry: Normal mood. Normal affect. Not depressed. Not anxious. Results Lab / Micro Data Result Diagrams: 12/04/21 16:50 12/04/21 16:50 Labs: Laboratory Results - last 24 hr 12/04/21 16:50: WBC 24.2 H, RBC 3.74 L, Hgb 12.5, Hct 37.3, MCV 99.7 H, MCH 33.4 H, MCHC 33.5, RDW Std Deviation 46.8 H, RDW Coeff of Guy 12.9, Plt Count 283, MPV 9.2, Immature Gran % (Auto) 2.600 H, Neut % (Auto) 94.4 H, Lymph % (Auto) 1.0 L, [place] % (Auto) 1.8, Eos % (Auto) 0.0, Baso % (Auto) 0.2, Absolute Neuts (auto) 22.9 H, Absolute Lymphs (auto) 0.23 L, Nucleated RBC % 0, Differential Comment SCANNED 12/04/21 16:50: Sodium 137, Potassium 4.3, Chloride 102, Carbon Dioxide 25.0, Anion Gap 10, BUN 19 H, Creatinine 1.48 H, Estim Creat Clear Calc 25.46, Est GFR (MDRD) Af Amer 43 L, Est GFR (MDRD) Non-Af 36 L, BUN/Creatinine Ratio 12.8, Glucose 125 H, Calcium 9.2 12/04/21 16:50: Lactic Acid 1.9 12/04/21 17:56: Urine Color Yellow, Urine Clarity Clear, Urine pH 6.5, Ur Specific [place] 1.010, Urine Protein 30 H, Urine Glucose (UA) Normal, Urine Ketones 5 H, Urine Occult Blood Negative, Urine Nitrite Negative, Urine Bilirubin Negative, Urine Urobilinogen 1 H, Ur Leukocyte Esterase 25 H, Urine RBC 0 SEEN, Urine WBC 5-10 SEEN, Ur Squamous Epith Cells 0-5 SEEN, Urine Bacteria 1+, Urine Mucus 0 SEEN Radiology Impression Chest X-Ray 12/04/21 18:09 IMPRESSION: Poor inspiration with some bibasilar atelectasis. Electronically Signed: Yonis Patel MD at 18:28 EDT , Assessment & Plan Assessment/Plan (1) Acute UTI: (2) Generalized weakness: (3) COPD exacerbation: PLAN: Plan Acute UTI On presentation urinalysis showed 25 leukocyte esterase; nitrite negative; urine WBC 5-10; urine bacteria 1+. Urine culture ordered emergency department; follow. Urine culture on 11/15/2021 showed Klebsiella cystica pansensitive but resistant to ampicillin. ESBL negative. Ceftriaxone started emergency department and continued. CBC on presentation showed white count of 24.2. Bandemia was 2.6%. Her white count a week ago was 15.1. Previous white count in hospital system normal. Trend CBC Generalized weakness PT and OT to work with patient for strengthening balance training. In the setting of history of hypothyroidism on Synthroid. TSH ordered. Acute COPD exacerbation Impression of chest x-ray by radiologist: Poor inspiration with some bibasilar atelectasis. Chest x-ray was visualized and independent interpreted and I agree with radiologist interpretation. Patient required 2 L of nasal cannula on presentation. Of note patient previously was on home oxygen but reportedly her oxygen machine out and she reports not knowing how to get oxygen machine at home at this time. Lungs diminished and with mild wheezes. Likely beginning of COPD exacerbation. We will put patient on [id number] DuoNeb. Prednisone ordered. Mucinex ordered. CKD stage IIIb Creatinine with mild bump. Stable. Received normal saline hydration at the ED. Trend BMP. Hypertension Blood pressure is stable Home blood pressure medication continued parameters Trend blood pressure and adjust blood pressure medications. Atrial fibrillation Paced rhythm on presentation. Apixaban, amiodarone and metoprolol continued. DVT prophylaxis: Not indicated as patient is on Eliquis for A. fib. Eliquis continued. Charges/Coding Visit Charges Inpatient E&M: 18823 Init Hosp L3
[2021-12-04] MEDS: predniSONE 20 MG Tablet 40 MG PO (21:13)
[2021-12-04] MEDS: guaiFENesin 600 MG Tablet PO (21:13)
[2021-12-04] MEDS: APIXABAN 5 MG TABLET PO (21:14)
[2021-12-04] MEDS: Metoprolol Tartrate 25 MG Tablet PO (21:14)
[2021-12-05] VITALS (13 sets, daily range): BP systolic 95–122; BP diastolic 40–66; PULSE 61–88; RESP 16–20; TEMP 36.3–36.6; O2SAT 94–99
[2021-12-05] MEDS: Ipratropium/Albuterol Sulfate 3 ML AMPUL.NEB INHALATION ×5 (01:07→19:30)
[2021-12-05] MEDS: Levothyroxine 50 MCG Tablet PO (05:27)
[2021-12-05 05:44] LABS: Absolute Lymphocyte Count 0.32 X10^3/uL (0.83-4.51); Absolute Neutrophil Count 20.2 X10^3/uL (2.0-7.7); Basophil# 0.03 X10^3/uL; Basophil% 0.1 % (0-1); Eosinophil# 0.06 X10^3/uL; Eosinophils% 0.3 % (0-5); Hematocrit 32.4 % (37-47); Hemoglobin 11.1 g/dL (12.0-15.0); Lymphocyte # 0.32 X10^3/ul (0.83-4.51); Lymphocyte % 1.5 % (19-41); Mean Corp Hgb Conc 34.3 g/dL (32-36); Mean Corpuscular Volume 99.4 fL (81-99); Monocyte# 0.18 X10^3/uL; Monocyte% 0.8 % (0-10); NRBC Flagged by Analyzer 0 % (0-5); Neutrophil # 20.19 X10^3/uL (2.7-7.7); Neutrophil % 95.1 % (47-70); POSITIVE DIFFERENTIAL YES; Platelet Count 214 K/mm3 (150-450); RBC Distribution Width CV 13.1 % (11.6-14.6); RBC Distribution Width SD 47.5 fl (35.1-43.9); Red Blood Count 3.26 M/mm3 (4.2-5.4); White Blood Count 21.3 K/mm3 (4.4-11.0)
[2021-12-05 05:46] LABS: Differential Indicated SCAN CRITERIA MET
[2021-12-05 06:08] LABS: Macrocytosis 1+
[2021-12-05 06:20] LABS: Anion Gap 6 (5-15); BUN 20 mg/dL (7-18); BUN/Creat Ratio 17.7 RATIO (10-20); Calcium,Total 8.3 mg/dL (8.5-10.1); Chloride 105 mmol/L (98-107); Creatinine, Serum 1.13 mg/dL (0.55-1.02); EST Glomerular Filtration Rate 49 mL/min (>60); Est Glom Filt Rate - Afr Amer 59 mL/min (>60); Estimated Creatinine Clearance 33.35 ml/min; Glucose 170 mg/dL (74-106); Potassium 4.2 mmol/L (3.5-5.1); Sodium Level 136 mmol/L (136-145); Thyroid Stim Hormone (TSH) 1.87 uIU/mL (0.358-3.74)
[2021-12-05] MEDS: predniSONE 20 MG Tablet 40 MG PO (08:55)
[2021-12-05] MEDS: APIXABAN 5 MG TABLET PO ×2 (08:55→21:18)
[2021-12-05] MEDS: Amiodarone 200 MG Tablet PO (08:55)
[2021-12-05] MEDS: guaiFENesin 600 MG Tablet PO ×2 (08:55→21:18)
[2021-12-05] MEDS: Pyridoxine HCl 50 MG Tablet PO (08:56)
[2021-12-05] MEDS: Cholecalciferol (VIT D3) 25 MCG TABLET (1,000 UNITS) PO (08:56)
[2021-12-05] MEDS: Ensure Plus High Protein 120 ML LIQUID PO ×3 (09:00→17:43)
--- NOTE | 2021-12-05 09:49 | PN.HOSP_ITS ---
Subjective Subjective Patient is an 86-year-old lady admitted with progressive generalized weakness. An assessment of acute cystitis as well as COPD with acute exacerbation made admitted to regular nursing floor for further management Objective Data Objective Data Vital Signs: Vital Signs Temp Pulse Resp BP Pulse Ox O2 Del Method O2 Flow Rate 98 F 78 18 116/66 98 Nasal Cannula 2 12/05/21 03:11 12/05/21 07:10 12/05/21 07:10 12/05/21 03:11 12/05/21 09:38 12/05/21 09:38 12/05/21 09:38 Oxygen Flow Rate (L/min) 2 Oxygen Delivery Method Nasal Cannula Weight: 62.3 kg Body Mass Index (BMI) 22.8 Intake & Output: Intake and Output for Last 24 Hours 12/03/21 12/04/21 12/05/21 23:59 23:59 23:59 Intake Total 1050 / 1050 Output Total 550 / 550 Balance 1050 / 800 -550 / -550 Lab / Micro Data Result Diagrams: 12/05/21 05:12 12/05/21 05:12 Labs: Laboratory Results - last 24 hr 12/04/21 16:50: WBC 24.2 H, RBC 3.74 L, Hgb 12.5, Hct 37.3, MCV 99.7 H, MCH 33.4 H, MCHC 33.5, RDW Std Deviation 46.8 H, RDW Coeff of Guy 12.9, Plt Count 283, MPV 9.2, Immature Gran % (Auto) 2.600 H, Neut % (Auto) 94.4 H, Lymph % (Auto) 1.0 L, [place] % (Auto) 1.8, Eos % (Auto) 0.0, Baso % (Auto) 0.2, Absolute Neuts (auto) 22.9 H, Absolute Lymphs (auto) 0.23 L, Nucleated RBC % 0, Differential C omment SCANNED 12/04/21 16:50: Sodium 137, Potassium 4.3, Chloride 102, Carbon Dioxide 25.0, Anion Gap 10, BUN 19 H, Creatinine 1.48 H, Estim Creat Clear Calc 25.46, Est GFR (MDRD) Af Amer 43 L, Est GFR (MDRD) Non-Af 36 L, BUN/Creatinine Ratio 12.8, Glucose 125 H, Calcium 9.2 12/04/21 16:50: Lactic Acid 1.9 12/04/21 17:56: Urine Color Yellow, Urine Clarity Clear, Urine pH 6.5, Ur Specific [place] 1.010, Urine Protein 30 H, Urine Glucose (UA) Normal, Urine Ketones 5 H, Urine Occult Blood Negative, Urine Nitrite Negative, Urine Bilirubin Negative, Urine Urobilinogen 1 H, Ur Leukocyte Esterase 25 H, Urine RBC 0 SEEN, Urine WBC 5-10 SEEN, Ur Squamous Epith Cells 0-5 SEEN, Urine Bacteria 1+, Urine Mucus 0 SEEN 12/05/21 05:12: WBC 21.3 H, RBC 3.26 L, Hgb 11.1 L, Hct 32.4 L, MCV 99.4 H, MCH 34.0 H, MCHC 34.3, RDW Std Deviation 47.5 H, RDW Coeff of Guy 13.1, Plt Count 214, MPV 9.0, Immature Gran % (Auto) 2.200 H, Neut % (Auto) 95.1 H, Lymph % (Auto) 1.5 L, [place] % (Auto) 0.8, Eos % (Auto) 0.3, Baso % (Auto) 0.1, Absolute Neuts (auto) 20.2 H, Absolute Lymphs (auto) 0.32 L, Nucleated RBC % 0, Macrocytosis 1+ 12/05/21 05:12: Sodium 136, Potassium 4.2, Chloride 105, Carbon Dioxide 25.0, Anion Gap 6, BUN 20 H, Creatinine 1.13 H, Estim Creat Clear Calc 33.35, Est GFR (MDRD) Af Amer 59 L, Est GFR (MDRD) Non-Af 49 L, BUN/Creatinine Ratio 17.7, Glucose 170 H, Calcium 8.3 L, TSH 1.87 Radiography Diagnostic Testing: Radiology Impression Chest X-Ray 12/04/21 18:09 IMPRESSION: Poor inspiration with some bibasilar atelectasis. Electronically Signed: Yonis Patel MD at 18:28 EDT , Physical Exam Narrative GENERAL: cooperative HEENT: Atraumatic; EYES; Anicteric, Normal Conjunctiva NECK; supple, normal thyroid, RESPIRATORY: Diminished to auscultation CARDIOVASCULAR: Regular S1 S2, GI: soft, normoactive bowel sounds, : No Renal angle tenderness; EXTREMITIES: No edema, no clubbing, MUSCULOSKELETAL: no muscle wasting NEURO: Awake; no lateralizing signs. SKIN: No Rash PSYCH; Flat affect Assessment & Plan Assessment/Plan (1) Acute UTI: (2) Generalized weakness: (3) COPD exacerbation: PLAN: Plan Patient is an 86-year-old lady admitted with progressive generalized weakness. An assessment of acute cystitis as well as COPD with acute exacerbation made admitted to regular nursing floor for further management 1. Acute cystitis ? Cultures obtained from 11/15/2021 demonstrated Klebsiella oxytoca, resistant to ampicillin sensitive to cephalosporins. Patient started on Rocephin admitted to regular nursing floor 2. COPD with mild exacerbation ? Managed with bronchodilator treatment 3. Paroxysmal A. fib ? Patient is on amiodarone and metoprolol for rate control and systemic anticoagulation with apixaban 4. Coronary artery disease ? With previous PCI with stent placement to left circumflex lesion in May 2017 5. Conduction system disorder ? Status post pacemaker placement 6. Hypertension - Blood pressure controlled, home medications continued with dose adjustment as needed 7. History of right sided pulmonary embolism ? On apixaban 8. Hypothyroidism - Patient is on levothyroxine home dose continued 9. GERD ? Per history 10. Dyslipidemia ? Per history 11. DVT prophylaxis On apixaban Charges/Coding Visit Charges Inpatient E&M: 04498 Subs Hosp L2
--- NOTE | 2021-12-05 10:20 | CASEMGMT ---
Addendum entered by Aida Negrete 12/05/21 11:39: Pt states she cannot do Sunday appt d/t no transportation. TC to [facility] and rescheduled for Sunday12/12/2021 at 2:40pm. Pt agreeable to this time and updated Harika at [facility]. Addendum entered by Aida Negrete 12/05/21 11:30: Received tc back from Harika at [facility] stating they can accept pt but she will need to be seen by prior to them starting. RN NICHOLE in to pt room to make aware. She is agreeable to CM making appt. TC to [facility], pt set up with appt on Sunday at 3:20p. Notified pt and [facility]. Original Note: RN NICHOLE Assessment: Face to Face with pt for initial transition planning/care coordination assessment. RN NICHOLE introduced self and role at [facility], pt voices understanding and consents to assessment. Pt is A/O x4 and answers all questions appropriately at this time. Pt lying in bed in no distress. Care providers, pharmacy, and demographics verified/updated. Admitting Dx: UTI, generalized weakness PCP:Jackeline Specialists:Elroy, cardio; ever Palmer Preferred Pharmacy: [facility] Insurance: [facility] Prescription Benefit: yes LNOK: Jaswinder Wang, son; Montez Wang, son Living Arrangements: Pt lives alone in a mobile home with 3 steps to enter with a rail. Pt states she is I in ADL's using AD and has fallen in the last 6 mos and had a near fall recently. Transportation: Pt drives self and denies concerns with transportation. Pt has not driven lately and is looking into getting her groceries delivered to not have to go out. DME/HHC/SNF: Pt has a rollator, cane, quad cane, FWW and shower chair. Pt denies hx of HHC or SNF stays. Pt states no concerns with going home at time of dc. Pt is interested in HHC. Discussed expectations of HHC. Pt inquires on community resources. Will request PT, OT and DIPLOMATIC INTERPRETER/TRANSLATOR. Patient was provided a list of HHC providers including quality and resource use data and consistent with the patient?s preferred geographic region, medical needs, and insurance network were provided from the [employer] Guide. Pt chooses [facility]. Pt neighbor came in upon end of assessment. Pt states no further concerns/needs. CM to follow. Advised pt to ask CM if any further question/concerns/needs arise, voices understanding. Pt Goal: Home with HHC Plan: Home with HH. TC josefina Shabazz at [facility], referral made, awaiting acceptance.
[2021-12-05] MEDS: Acetaminophen 325 MG Tablet 650 MG PO (13:11)
[2021-12-05] MEDS: 0.9% Saline Lock 10 ML Syringe IV (13:12)
--- NOTE | 2021-12-05 15:03 | CHAPLAIN ---
Type of Pastoral Visit _x__ Initial Visit ___ Follow-up Visit ___ On-call Visit ___ General Patient Visit ___ Spiritual Assessment ___ Family Conference ___ Bereavement ___ Rapid Response ___ Code Blue ___ Other (describe below) Pastoral Care Referral From _x__ Patient ___ Family ___ Nurse ___ Physician ___ Supervisor Respiratory ___ Commissary Representative ___ Other (describe below) Sacrament/Intervention _x__ Active listening ___ Anointing ___ Samaritan ___ Bereavement ___ Communion _x__ Haleigh exploration ___ _x__ Life review _x__ Prayer ___ Reconciliation ___ Sacrament of Sick _x__ Supportive presence ___ Wedding ___ Other (describe below) Pastoral Comments patient is talkative and explains her current health situation, her [place] background, her family, and the decisions needing to be made about staying in her mobile home or moving to be near a son in [place]; pt welcomes prayer and presence of this backend python developer
[2021-12-05] MEDS: BENZOCAINE/MENTHOL 1 LOZENGE MUCOUS MEM (18:38)
[2021-12-05] MEDS: Ceftriaxone 1 GM/50 ML BAG IV (21:15)
[2021-12-06] VITALS (8 sets, daily range): BP systolic 136–153; BP diastolic 68–70; PULSE 60–64; RESP 15–16; TEMP 36.3–36.6; O2SAT 92–99
[2021-12-06] MEDS: Levothyroxine 50 MCG Tablet PO (05:47)
[2021-12-06 07:33] LABS: Absolute Lymphocyte Count 0.77 X10^3/uL (0.83-4.51); Absolute Neutrophil Count 20.3 X10^3/uL (2.0-7.7); Basophil# 0.03 X10^3/uL; Basophil% 0.1 % (0-1); Eosinophil# 0.11 X10^3/uL; Eosinophils% 0.5 % (0-5); Hematocrit 32.4 % (37-47); Hemoglobin 11.2 g/dL (12.0-15.0); Lymphocyte # 0.77 X10^3/ul (0.83-4.51); Lymphocyte % 3.5 % (19-41); Mean Corp Hgb Conc 34.6 g/dL (32-36); Mean Corpuscular Hgb 33.9 pg (27.0-32.0); Mean Corpuscular Volume 98.2 fL (81-99); Mean Platelet Vol. 9.3 fl (6.2-12.0); Monocyte# 0.68 X10^3/uL; Monocyte% 3.1 % (0-10); NRBC Flagged by Analyzer 0 % (0-5); Neutrophil # 20.25 X10^3/uL (2.7-7.7); Neutrophil % 90.8 % (47-70); POSITIVE DIFFERENTIAL YES; Platelet Count 249 K/mm3 (150-450); RBC Distribution Width SD 46.6 fl (35.1-43.9); White Blood Count 22.3 K/mm3 (4.4-11.0)
--- NOTE | 2021-12-06 07:39 | PN.HOSP_ITS ---
Subjective Subjective Patient seen clinical condition improved. Urine cultures positive for strep species nonsignificant colony count Objective Data Objective Data Vital Signs: Vital Signs Temp Pulse Resp BP Pulse Ox O2 Del Method O2 Flow Rate 97.8 F 60 16 153/68 H 98 Room Air 2 12/06/21 05:00 12/06/21 05:00 12/06/21 05:00 12/06/21 05:00 12/06/21 05:00 12/06/21 05:00 12/06/21 05:00 Oxygen Flow Rate (L/min) 2 Oxygen Delivery Method Room Air Weight: 62.3 kg Body Mass Index (BMI) 22.8 Intake & Output: Intake and Output for Last 24 Hours 12/04/21 12/05/21 12/06/21 23:59 23:59 23:59 Intake Total 1050 / 1050 900 / 900 Output Total 1425 / 1425 300 / 300 Balance 1050 / 800 -525 / -525 -300 / -300 Lab / Micro Data Result Diagrams: 12/06/21 06:10 12/06/21 06:10 Physical Exam Narrative GENERAL: cooperative HEENT: Atraumatic; EYES; Anicteric, Normal Conjunctiva NECK; supple, normal thyroid, RESPIRATORY: Diminished to auscultation CARDIOVASCULAR: Regular S1 S2, GI: soft, normoactive bowel sounds, : No Renal angle tenderness; EXTREMITIES: No edema, no clubbing, MUSCULOSKELETAL: no muscle wasting NEURO: Awake; no lateralizing signs. SKIN: No Rash PSYCH; Flat affect Assessment & Plan Assessment/Plan (1) Acute UTI: (2) Generalized weakness: (3) COPD exacerbation: PLAN: Plan Patient is an 86-year-old lady admitted with progressive generalized weakness. An assessment of acute cystitis as well as COPD with acute exacerbation made admitted to regular nursing floor for further management 1. Acute cystitis ? Cultures obtained from 11/15/2021 demonstrated Klebsiella oxytoca, resistant to ampicillin sensitive to cephalosporins. Patient started on Rocephin admitted to regular nursing floor -12/06/2021 urine cultures no significant colony count with strep species. Patient will be discharged home 2. COPD with mild exacerbation ? Managed with bronchodilator treatment 3. Paroxysmal A. fib ? Patient is on amiodarone and metoprolol for rate control and systemic antico agulation with apixaban 4. Coronary artery disease ? With previous PCI with stent placement to left circumflex lesion in May 2017 5. Conduction system disorder ? Status post pacemaker placement 6. Hypertension - Blood pressure controlled, home medications continued with dose adjustment as needed 7. History of right sided pulmonary embolism ? On apixaban 8. Hypothyroidism - Patient is on levothyroxine home dose continued 9. GERD ? Per history 10. Dyslipidemia ? Per history 11. DVT prophylaxis On apixaban Charges/Coding Visit Charges Inpatient E&M: 83313 Subs Hosp L2
[2021-12-06 07:46] LABS: Differential Indicated SCAN CRITERIA MET
[2021-12-06 08:05] LABS: Platelet Estimate ADEQUATE (ADEQ); Red Cell Morphology NORM C+C NORMAL (NORM C&C)
[2021-12-06 08:10] LABS: Anion Gap 10 (5-15); BUN 27 mg/dL (7-18); BUN/Creat Ratio 23.5 RATIO (10-20); Calcium,Total 8.8 mg/dL (8.5-10.1); Chloride 101 mmol/L (98-107); Creatinine, Serum 1.15 mg/dL (0.55-1.02); EST Glomerular Filtration Rate 48 mL/min (>60); Est Glom Filt Rate - Afr Amer 58 mL/min (>60); Estimated Creatinine Clearance 32.77 ml/min; Glucose 118 mg/dL (74-106); Magnesium 1.9 mg/dL (1.6-2.6); Potassium 4.2 mmol/L (3.5-5.1); Sodium Level 136 mmol/L (136-145)
--- NOTE | 2021-12-06 08:39 | DS.PCM_ITS ---
Providers Date of Admission: 12/04/21 Date of Discharge: 12/06/21 Primary Care Physician: Dr. Jian Viveros MD Reason For Visit: UTI, GENERALIZED WEAKNESS Diagnosis Discharge Diagnosis (1) Acute UTI: Status: Acute Code(s): N39.0 - Urinary tract infection, site not specified (2) Generalized weakness: Status: Acute Code(s): R53.1 - Weakness (3) COPD exacerbation: Status: Chronic Code(s): J44.1 - Chronic obstructive pulmonary disease with (acute) exacerbation Plan Patient is an 86-year-old lady admitted with progressive generalized weakness. An assessment of acute cystitis as well as COPD with acute exacerbation made admitted to regular nursing floor for further management 1. Acute cystitis ? Cultures obtained from 11/15/2021 demonstrated Klebsiella oxytoca, resistant to ampicillin sensitive to cephalosporins. Patient started on Rocephin admitted to regular nursing floor -12/06/2021 urine cultures no significant colony count with strep species. Patient will be discharged home 2. COPD with mild exacerbation ? Managed with bronchodilator treatment 3. Paroxysmal A. fib ? Patient is on amiodarone and metoprolol for rate control and systemic anticoagulation with apixaban 4. Coronary artery disease ? With previous PCI with stent placement to left circumflex lesion in May 2017 5. Conduction system disorder ? Status post pacemaker placement 6. Hypertension - Blood pressure controlled, home medications continued with dose adjustment as needed 7. History of right sided pulmonary embolism ? On apixaban 8. Hypothyroidism - Patient is on levothyroxine home dose continued 9. GERD ? Per history 10. Dyslipidemia ? Per history 11. DVT prophylaxis On apixaban Medications at Discharge Home Medications cholecalciferol (vitamin D3) 25 mcg (1,000 unit) tablet 1,000 unit PO DAILY SUPPLEMENT 04/16/15 lisinopril 10 mg tablet 10 mg PO DAILY #90 tabs 06/08/17 nitroglycerin 0.4 mg sublingual tablet 0.4 mg sublingual Q5-15M PRN chest pain #25 tabs 08/03/18 pyridoxine (vitamin B6) 50 mg tablet 50 mg PO DAILY supplement 01/20/20 albuterol sulfate 2.5 mg/0.5 mL solution for nebulization 2.5 mg inhalation Q4H PRN Shortness Of Breath 08/20/20 meclizine 25 mg tablet 25 mg PO DAILY PRN Vertigo 08/20/20 tiotropium bromide 2.5 mcg/actuation mist for inhalation (Spiriva Respimat) 2 puff inhalation DAILY COPD 08/20/20 apixaban 5 mg tablet 5 mg PO BID blood thinner #180 tabs 02/23/21 amiodarone 200 mg tablet 200 mg PO DAILY heart 05/24/21 levothyroxine 50 mcg tablet 50 mcg PO DAILY thyroid 12/04/21 metoprolol tartrate 50 mg tablet 25 mg PO DAILY heart 12/04/21 vit C 250 mg-vit E 90 mg-zinc 40 mg-copper 1 [id number] capsule (PreserVision AREDS-2) 1 cap PO BID eye health 12/04/21 cefdinir 300 mg capsule 300 mg PO BID #10 caps 12/06/21 Hospital Course Summary of Care Provided Minutes Spent on Discharge: 35 Physical Exam Narrative GENERAL: cooperative HEENT: Atraumatic; EYES; Anicteric, Normal Conjunctiva NECK; supple, normal thyroid, RESPIRATORY: Diminished to auscultation CARDIOVASCULAR: Regular S1 S2, GI: soft, normoactive bowel sounds, : No Renal angle tenderness; EXTREMITIES: No edema, no clubbing, MUSCULOSKELETAL: no muscle wasting NEURO: Awake; no lateralizing signs. SKIN: No Rash PSYCH; Flat affect Weight / BMI Weight Weight: 62.3 kg Body Mass Index (BMI) 22.8 ABG / Lab / Microbiology Data Result Diagrams: 12/06/21 06:10 12/06/21 06:10 Laboratory: Laboratory Results - last 24 hr 12/06/21 06:10: WBC 22.3 H, RBC 3.30 L, Hgb 11.2 L, Hct 32.4 L, MCV 98.2, MCH 33.9 H, MCHC 34.6, RDW Std Deviation 46.6 H, RDW Coeff of Guy 13.0, Plt Count 249, MPV 9.3, Immature Gran % (Auto) 2.000 H, Neut % (Auto) 90.8 H, Lymph % (Auto) 3.5 L, [place] % (Auto) 3.1, Eos % (Auto) 0.5, Baso % (Auto) 0.1, Absolute Neuts (auto) 20.3 H, Absolute Lymphs (auto) 0.77 L, Nucleated RBC % 0, Platelet Estimate ADEQUATE, RBC Morphology NORM C+C 12/06/21 06:10: Sodium 136, Potassium 4.2, Chloride 101, Carbon Dioxide 25.0, Anion Gap 10, BUN 27 H, Creatinine 1.15 H, Estim Creat Clear Calc 32.77, Est GFR (MDRD) Af Amer 58 L, Est GFR (MDRD) Non-Af 48 L, BUN/Creatinine Ratio 23.5 H, Glucose 118 H, Calcium 8.8, Phosphorus 2.0 L, Magnesium 1.9 Microbiology: Microbiology 12/04/21 17:56 Urine, Random Urine Culture - Final Streptococcus group B D/C Instructions Discharge Diet: No restrictions Discharge Activity: Return to Normal Activity Call your doctor if you observe: Fever of 101 or Higher, Shortness of breath, Fainting spells and Chest pain Meaningful Use Info Meaningful Use Diagnoses (Choose all that apply): None applicable Discharge Plan Admission Admit Date/Time: 12/04/21 19:20 Attending Provider: Randall Tong Primary Care Provider: Jian Viveros Consulting Providers: Clifford Larsen Discharge Orders/Prescriptions Prescriptions: New cefdinir 300 mg capsule 300 mg PO BID Qty: 10 0RF Continued lisinopril 10 mg tablet 10 mg PO DAILY Qty: 90 3RF Spiriva Respimat 2.5 mcg/actuation mist 2 puff inhalation DAILY albuterol sulfate 2.5 mg/0.5 mL solution for nebulization 2.5 mg inhalation Q4H PRN (Reason: Shortness Of Breath) meclizine 25 mg tablet 25 mg PO DAILY PRN (Reason: Vertigo) amiodarone 200 mg tablet 200 mg PO DAILY cholecalciferol (vitamin D3) 1,000 UNIT tablet 1,000 unit PO DAILY Label Comments: SUPPLEMENT pyridoxine (vitamin B6) 50 MG tablet 50 mg PO DAILY metoprolol tartrate 50 mg Tablet 25 mg PO DAILY PreserVision AREDS-2 250-90-40-1 mg Capsule 1 cap PO BID levothyroxine 50 mcg Tablet 50 mcg PO DAILY nitroglycerin 0.4 mg tablet, sublingual 0.4 mg SUBLINGUAL Q5-15M PRN (Reason: chest pain) Qty: 25 3RF Rx Instructions: until response; do not exceed 3 doses per episode apixaban 5 mg tablet 5 mg PO BID Qty: 180 3RF Referrals / Follow Up: Jian Viveros MD [Primary Care Provider] - 12/12/21 2:20 pm Disposition Disposition (needs filled in before D/C Order can be placed): Home Health Service Charges/Coding Visit Charges Inpatient E&M: 64160 Disch Hosp
[2021-12-06] MEDS: Amiodarone 200 MG Tablet PO (09:36)
[2021-12-06] MEDS: predniSONE 20 MG Tablet 40 MG PO (09:36)
[2021-12-06] MEDS: APIXABAN 5 MG TABLET PO (09:36)
[2021-12-06] MEDS: Metoprolol Tartrate 25 MG Tablet PO (09:37)
[2021-12-06] MEDS: Pyridoxine HCl 50 MG Tablet PO (09:37)
[2021-12-06] MEDS: Cholecalciferol (VIT D3) 25 MCG TABLET (1,000 UNITS) PO (09:37)
[2021-12-06] MEDS: guaiFENesin 600 MG Tablet PO (09:37)
[2021-12-06] MEDS: Lisinopril 10 MG Tablet PO (09:37)
[2021-12-06] MEDS: Ensure Plus High Protein 120 ML LIQUID PO (09:41)
[2021-12-06] MEDS: Ipratropium/Albuterol Sulfate 3 ML AMPUL.NEB INHALATION (11:05)
--- NOTE | 2021-12-06 11:38 | PHA.DC.MC ---
Pharmacy Service has performed discharge medication reconciliation and counseling for this patient. 1. CEFDINIR 300MG PO BID X 5 DAYS The patient's discharge medication list was reviewed for discrepancies and discrepancies were resolved. Home Medications cholecalciferol (vitamin D3) 25 mcg (1,000 unit) tablet 1,000 unit PO DAILY SUPPLEMENT 04/16/15 lisinopril 10 mg tablet 10 mg PO DAILY #90 tabs 06/08/17 nitroglycerin 0.4 mg sublingual tablet 0.4 mg sublingual Q5-15M PRN chest pain #25 tabs 08/03/18 pyridoxine (vitamin B6) 50 mg tablet 50 mg PO DAILY supplement 01/20/20 albuterol sulfate 2.5 mg/0.5 mL solution for nebulization 2.5 mg inhalation Q4H PRN Shortness Of Breath 08/20/20 meclizine 25 mg tablet 25 mg PO DAILY PRN Vertigo 08/20/20 tiotropium bromide 2.5 mcg/actuation mist for inhalation (Spiriva Respimat) 2 puff inhalation DAILY COPD 08/20/20 apixaban 5 mg tablet 5 mg PO BID blood thinner #180 tabs 02/23/21 amiodarone 200 mg tablet 200 mg PO DAILY heart 05/24/21 levothyroxine 50 mcg tablet 50 mcg PO DAILY thyroid 12/04/21 metoprolol tartrate 50 mg tablet 25 mg PO DAILY heart 12/04/21 vit C 250 mg-vit E 90 mg-zinc 40 mg-copper 1 [id number] capsule (PreserVision AREDS-2) 1 cap PO BID eye health 12/04/21 cefdinir 300 mg capsule 300 mg PO BID #10 caps 12/06/21 The patient was counseled on the following discharge medications and changes in medications for homegoing were reviewed. The Reason for Use, instructions for use, and potential side effects were reviewed for all new medications. The patient's questions regarding all of their medications were answered. The patient was able to verbally demonstrate an understanding of their discharge medications. Patient counseled by graduate student instructorReena.
--- NOTE | 2021-12-06 13:22 | CASEMGMT ---
Pt did not qualify for home oxygen.
== END 2021-12-06 13:35 | disposition home health service (06) | DRG 690 ==
LOC: ED 19:25 → MS3 19:50
PROVIDERS: Physician Assistant; Admitting Provider Hospitalist; Emergency Provider Emergency Medicine; PCP Family Medicine; Visit Provider Internal Medicine
DX: N30.00 Acute cystitis without hematuria (principal); J44.1 Chronic obstructive pulmonary disease with (acute) exacerbation; I48.0 Paroxysmal atrial fibrillation; N18.32 Chronic kidney disease, stage 3b; E78.5 Hyperlipidemia, unspecified; I12.9 Hypertensive chronic kidney disease with stage 1 through stage 4 chronic kidney disease, or unspecified chronic kidney disease; I25.10 Atherosclerotic heart disease of native coronary artery without angina pectoris; K21.9 Gastro-esophageal reflux disease without esophagitis; E03.9 Hypothyroidism, unspecified; Z87.891 Personal history of nicotine dependence; Z95.0 Presence of cardiac pacemaker; Z86.711 Personal history of pulmonary embolism; Z79.899 Other long term (current) drug therapy; Z79.01 Long term (current) use of anticoagulants; Z79.890 Hormone replacement therapy; B95.5 Unspecified streptococcus as the cause of diseases classified elsewhere
CPT/HCPCS: 36415; 71045; 80048; 81001; 83605; 83735; 84100; 84443; 85025; 87040; 87077; 87086; 87088; 93005; 94640; 94668; 96361; 96365; 96366; 97116; 97162; 97166; 97530; 97535; 97802; 99218; 99285; J7030; J7050; A4216; G0378

== ENCOUNTER → 2021-12-16 | Outpatient (CLI) | payer MEDICARE, SELFPAY ==
[2017-06-01 08:52] VITALS: BMI 24.1
[2021-12-16 17:45] LABS: Absolute Neutrophil Count 6.5 X10^3/uL (2.0-7.7); Basophil# 0.03 X10^3/uL; Basophil% 0.3 % (0-1); Eosinophils% 28.4 % (0-5); Hematocrit 35.2 % (37-47); Hemoglobin 11.7 g/dL (12.0-15.0); Lymphocyte % 7.3 % (19-41); Mean Corp Hgb Conc 33.2 g/dL (32-36); Mean Corpuscular Hgb 34.1 pg (27.0-32.0); Mean Corpuscular Volume 102.6 fL (81-99); Mean Platelet Vol. 9.5 fl (6.2-12.0); Monocyte# 0.49 X10^3/uL; Monocyte% 4.5 % (0-10); NRBC Flagged by Analyzer 0 % (0-5); Neutrophil # 6.53 X10^3/uL (2.7-7.7); Neutrophil % 59.2 % (47-70); POSITIVE DIFFERENTIAL YES; Platelet Count 255 K/mm3 (150-450); RBC Distribution Width CV 13.3 % (11.6-14.6); RBC Distribution Width SD 50.9 fl (35.1-43.9); Red Blood Count 3.43 M/mm3 (4.2-5.4)
[2021-12-16 18:13] LABS: ALB/GLOB Ratio 0.9 RATIO (0.9-2.4); AST(SGOT) 36 U/L (15-37); Alanine Aminotransfer ALT/SGPT 53 U/L (13-56); Alkaline Phosphatase 60 U/L (45-117); Anion Gap 9 (5-15); BUN 14 mg/dL (7-18); BUN/Creat Ratio 12.1 RATIO (10-20); Calcium,Total 8.8 mg/dL (8.5-10.1); Chloride 102 mmol/L (98-107); Creatinine, Serum 1.16 mg/dL (0.55-1.02); EST Glomerular Filtration Rate 47 mL/min (>60); Est Glom Filt Rate - Afr Amer 57 mL/min (>60); Globulin 3.5 g/dL (2.2-4.2); Glucose 91 mg/dL (74-106); Potassium 4.5 mmol/L (3.5-5.1); Protein, Total 6.5 g/dL (6.4-8.2); Sodium Level 135 mmol/L (136-145); Thyroid Stim Hormone (TSH) 6.98 uIU/mL (0.358-3.74)
[2021-12-16 18:42] LABS: Differential Indicated SCAN CRITERIA MET; Eosinophil# 3.13 X10^3/uL
[2021-12-16 19:02] LABS: Anisocytosis 1+; Macrocytosis 1+; Platelet Estimate ADEQUATE (ADEQ); Red Cell Morphology N CHROM NORMAL (NORM C&C)
[2021-12-16 19:03] LABS: Erythrocyte Sedimentation Rate 27 mm/hr (0-30)
== END | disposition home or self-care (01) ==
LOC: MFPLAB 14:14
PROVIDERS: PCP Family Medicine; Referring Provider Family Medicine; Visit Provider Family Medicine
DX: R30.0 Dysuria (principal); R53.81 Other malaise; R53.83 Other fatigue
CPT/HCPCS: 36415; 80053; 84443; 85025; 85652; 87077; 87086; 87088; 87186

== ENCOUNTER → 2022-04-20 | Outpatient (CLI) | payer MEDICARE, SELFPAY ==
[2017-06-01 08:52] VITALS: BMI 24.1
--- NOTE | 2022-04-20 12:16 | CDU_ITS ---
Reason For Study: central retinal vein occlusion Rt. Velocities/BP Lt. Velocities/BP Prox CCA 69.2/16.3 cm/sec. Prox CCA 72.9/17.9 cm/sec. Mid CCA 50.4/10.7 cm/sec. Mid CCA 78.4/21.2 cm/sec. Dist CCA 50.4/10.7 cm/sec. Dist CCA 66.3/19.0 cm/sec. Prox ICA 152.1/38.0 cm/sec. Prox ICA 79.6/21.1 cm/sec. Mid ICA 191.6/38.0 cm/sec. Mid ICA 174.1/49.0 cm/sec. Dist ICA 74.0/20.1 cm/sec. Dist ICA 134.6/29.2 cm/sec. Rt. ICA/CCA = 3.8. Lt. ICA/CCA = 2.2. Prox ECA 171.9/20.4 cm/sec. Prox ECA 85.3/12.6 cm/sec. Rt. Vert. 41.0/6.9 cm/sec. Lt. Vert. 46.6/13.5 cm/sec. Right Extracranial There is homogeneous, smooth atherosclerotic plaque noted in the right common carotid artery. There is heterogeneous, irregular atherosclerotic plaque noted in the right internal carotid artery. There is heterogeneous, irregular atherosclerotic plaque noted in the right external carotid artery. Antegrade flow is noted in the right vertebral artery. Left Extracranial There is heterogeneous, irregular atherosclerotic plaque noted in the left common carotid artery. There is heterogeneous, irregular atherosclerotic plaque noted in the left internal carotid artery. There is heterogeneous, irregular atherosclerotic plaque noted in the left external carotid artery. Antegrade flow is noted in the left vertebral artery. Procedure Carotid Duplex 34498. This is a Carotid Duplex examination using B-mode, color flow and specral Doppler. The exam was diagnostic. Exam performed in department. VL/Carotid Duplex Ultrasound Interpretation Summary Moderate (50-69%) stenosis right extracranial internal carotid. Moderate (50-69%) stenosis left extracranial internal carotid. Patent and antegrade vertebrals bilaterally. Ordering Physician: Stanton Calles Performed By: Miles Romo RVT
== END | disposition home or self-care (01) ==
LOC: CVS 12:03
PROVIDERS: PCP Family Medicine; Referring Provider Ophthalmology; Visit Provider Ophthalmology
DX: H34.8120 Central retinal vein occlusion, left eye, with macular edema (principal); I65.23 Occlusion and stenosis of bilateral carotid arteries
CPT/HCPCS: 93880

== ENCOUNTER → 2022-05-30 | Outpatient (CLI) | payer MEDICARE, SELFPAY ==
[2017-06-01 08:52] VITALS: BMI 24.1
[2022-05-30 15:24] LABS: Creatinine, Serum 1.21 mg/dL (0.55-1.02); EST Glomerular Filtration Rate 45 mL/min (>60); Est Glom Filt Rate - Afr Amer 54 mL/min (>60)
== END | disposition home or self-care (01) ==
LOC: LAB 13:53
PROVIDERS: PCP Family Medicine; Referring Provider Surgery Trauma Surgery; Visit Provider Surgery Trauma Surgery
DX: I65.23 Occlusion and stenosis of bilateral carotid arteries (principal)
CPT/HCPCS: 36415; 82565

== ENCOUNTER → 2022-06-13 | Outpatient (CLI) | payer MEDICARE, SELFPAY ==
[2017-06-01 08:52] VITALS: BMI 24.1
[2022-06-13 16:09] LABS: Bacteria 0 SEEN /hpf (None Seen); Mucous, Urine 0 SEEN /hpf (<or=2+); Red Blood Cells-Urine 0 SEEN /hpf (0-5); White Blood Cells 0 SEEN /hpf (0-5)
[2022-06-13 18:13] LABS: Absolute Lymphocyte Count 1.29 X10^3/uL (0.83-4.51); Absolute Neutrophil Count 6.1 X10^3/uL (2.0-7.7); Basophil# 0.06 X10^3/uL; Basophil% 0.7 % (0-1); Eosinophil# 0.13 X10^3/uL; Eosinophils% 1.6 % (0-5); Hematocrit 37.5 % (37-47); Hemoglobin 12.3 g/dL (12.0-15.0); Lymphocyte # 1.29 X10^3/ul (0.83-4.51); Mean Corp Hgb Conc 32.8 g/dL (32-36); Mean Corpuscular Hgb 32.5 pg (27.0-32.0); Mean Corpuscular Volume 99.2 fL (81-99); Mean Platelet Vol. 9.7 fl (6.2-12.0); Monocyte# 0.52 X10^3/uL; Monocyte% 6.4 % (0-10); NRBC Flagged by Analyzer 0 % (0-5); Neutrophil # 6.05 X10^3/uL (2.7-7.7); Neutrophil % 75.1 % (47-70); Platelet Count 244 K/mm3 (150-450); RBC Distribution Width CV 12.5 % (11.6-14.6); RBC Distribution Width SD 44.6 fl (35.1-43.9); Red Blood Count 3.78 M/mm3 (4.2-5.4); White Blood Count 8.1 K/mm3 (4.4-11.0)
[2022-06-13 18:14] LABS: Color, Urine Yellow (Yellow); Glucose, Dipstick Normal (Normal); Ketone-Dipstick Negative (Negative); Leukocyte Esterase-Dipstick Negative /ul (Negative); Nitrite-Dipstick Negative (Negative); Occult Blood-Urine Negative /ul (Negative); Protein-Dipstick Negative (Negative); Specific Gravity, Urine 1.015 (1.002-1.030); Urine Bilirubin Dipstick Negative (Negative); Urine Clarity Clear (Clear); Urine Urobilinogen Normal (Normal)
[2022-06-13 18:53] LABS: Protein, Urine (Random) 6.8 mg/dL (<11.9); Protein:Creat Ratio 152 mg/g CRE (0-200)
[2022-06-13 18:54] LABS: Squamous Epithelial Cells - UA 0-5 SEEN /hpf (5-10)
[2022-06-13 19:02] LABS: ALB/GLOB Ratio 1.1 RATIO (0.9-2.4); AST(SGOT) 36 U/L (15-37); Alanine Aminotransfer ALT/SGPT 35 U/L (13-56); Albumin, Serum 3.7 g/dL (3.2-5.0); Alkaline Phosphatase 74 U/L (45-117); Anion Gap 7 (5-15); BUN 21 mg/dL (7-18); BUN/Creat Ratio 15.4 RATIO (10-20); Calcium,Total 9.2 mg/dL (8.5-10.1); Chloride 105 mmol/L (98-107); Cholesterol 202 mg/dL (200); Creatinine, Serum 1.36 mg/dL (0.55-1.02); EST Glomerular Filtration Rate 39 mL/min (>60); Est Glom Filt Rate - Afr Amer 48 mL/min (>60); Globulin 3.3 g/dL (2.2-4.2); Glucose 107 mg/dL (74-106); High Density Lipoprotein 54 mg/dL; Potassium 4.6 mmol/L (3.5-5.1); Sodium Level 137 mmol/L (136-145); Triglycerides 136 mg/dL; Very Low Density Lipoprotein 27 mg/dL (5-40)
[2022-06-14 08:54] LABS: PTHIN 94.9 pg/mL (18.4-80.1)
== END | disposition home or self-care (01) ==
LOC: MFPLAB 16:05
PROVIDERS: PCP Family Medicine; Referring Provider Family Medicine; Visit Provider Family Medicine
DX: I48.91 Unspecified atrial fibrillation (principal); N18.30 Chronic kidney disease, stage 3 unspecified; E78.5 Hyperlipidemia, unspecified; E03.9 Hypothyroidism, unspecified
CPT/HCPCS: 36415; 80053; 80061; 81001; 82570; 83735; 83970; 84100; 84156; 84439; 84443; 85025

== ENCOUNTER → 2022-07-10 | Outpatient (CLI) | payer MEDICARE, SELFPAY ==
[2017-06-01 08:52] VITALS: BMI 24.1
--- NOTE | 2022-07-10 13:02 | CT_ITS ---
EXAM: CT ANGIOGRAPHY HEAD AND NECK WITH INTRAVENOUS CONTRAST CLINICAL INDICATION: carotid stenosis TECHNIQUE: [place]/head and neck CT angiography protocol performed with intravenous contrast. This CT exam was performed using one or more of the following dose reduction techniques: automated exposure control, adjustment of the mA and/or kV according to patient size, and/or use of iterative reconstruction technique. This report was created using [employer] report generation technology. MIP reconstructed images were created and reviewed. CONTRAST: IV 100mL Isovue-[id number] COMPARISON: None. FINDINGS: HEAD: RIGHT ANTERIOR CEREBRAL ARTERY: Unremarkable. No significant stenosis at the visualized segments. Anterior communicating artery is present. No aneurysm. RIGHT MIDDLE CEREBRAL ARTERY: Unremarkable. No significant stenosis at the visualized segments. No aneurysm. RIGHT POSTERIOR CEREBRAL ARTERY: Unremarkable. No occlusion or significant stenosis. No aneurysm. RIGHT INTRACRANIAL INTERNAL CAROTID ARTERY: Unremarkable. No significant stenosis. No dissection or occlusion. RIGHT INTRACRANIAL VERTEBRAL ARTERY: Unremarkable. No significant stenosis. No dissection or occlusion. LEFT ANTERIOR CEREBRAL ARTERY: Unremarkable. No significant stenosis at the visualized segments. No aneurysm. LEFT MIDDLE CEREBRAL ARTERY: Unremarkable. No significant stenosis at the visualized segments. No aneurysm. LEFT POSTERIOR CEREBRAL ARTERY: Unremarkable. No occlusion or significant stenosis. No aneurysm. LEFT INTRACRANIAL INTERNAL CAROTID ARTERY: The distal internal carotid arteries are widely patent. No significant stenosis. No dissection or occlusion. LEFT INTRACRANIAL VERTEBRAL ARTERY: Unremarkable. No significant stenosis. No dissection or occlusion. BASILAR ARTERY: Unremarkable. No significant stenosis. No aneurysm. OTHER VASCULATURE: There is calcific plaque in the origin and proximal left internal carotid artery which narrows the vessel approximately 70% over a 4 to 5 mm segment. NECK: RIGHT COMMON CAROTID ARTERY: Unremarkable. No significant stenosis. No dissection or occlusion. RIGHT EXTRACRANIAL INTERNAL CAROTID ARTERY: There is calcific and soft plaque seen in the right carotid bulb and proximal right internal carotid artery. This narrows the vessel approximately 60% over 5 mm of the right internal carotid artery. RIGHT EXTERNAL CAROTID ARTERY: Unremarkable. No occlusion. RIGHT EXTRACRANIAL VERTEBRAL ARTERY: Unremarkable. No significant stenosis. No dissection or occlusion. LEFT COMMON CAROTID ARTERY: Unremarkable. No significant stenosis. No dissection or occlusion. LEFT EXTRACRANIAL INTERNAL CAROTID ARTERY: Unremarkable. No significant stenosis. No dissection or occlusion. LEFT EXTERNAL CAROTID ARTERY: Unremarkable. No occlusion. LEFT EXTRACRANIAL VERTEBRAL ARTERY: Unremarkable. No significant stenosis. No dissection or occlusion. BRACHIOCEPHALIC AND SUBCLAVIAN ARTERIES: Unremarkable as visualized. No occlusion or significant stenosis. LUNG APICES: Unremarkable as visualized. HEAD and NECK: BONES/JOINTS: Unremarkable. No discrete lytic or blastic abnormalities. SOFT TISSUES: Unremarkable. CAROTID STENOSIS REFERENCE USING NASCET CRITERIA: % ICA stenosis = (1 - narrowest ICA diameter/diameter of distal cervical ICA) x 100. Mild - <50% stenosis. Moderate - 50-69% stenosis. Severe - 70-94% stenosis. Near occlusion - 95-99% stenosis. Occluded - 100% stenosis. CT/CTA Head AND Neck W/ Contrast IMPRESSION: 1. High-grade stenosis of the origin left internal carotid artery with the vessel narrowed approximately 70 % due to calcific plaque. 2. Moderate to high-grade stenosis of the origin of the right internal carotid artery with the vessel narrowed approximately 60% due to calcific and soft plaque. Electronically Signed: Subhsah Glover MD at 23:50 EDT ,
== END | disposition home or self-care (01) ==
LOC: CT 13:01
PROVIDERS: PCP Family Medicine; Referring Provider Surgery Trauma Surgery; Visit Provider Surgery Trauma Surgery
DX: I65.23 Occlusion and stenosis of bilateral carotid arteries (principal)
CPT/HCPCS: 70496; 70498; Q9967

== ENCOUNTER → 2022-07-21 | Outpatient (CLI) | payer MEDICARE, SELFPAY ==
[2017-06-01 08:52] VITALS: BMI 24.1
--- NOTE | 2022-07-21 16:22 | STRESSREP ---
Stress Test Report Pharmacologic myocardial perfusion stress test. 87-year-old lady for preop evaluation Resting EKG demonstrates sinus rhythm with ventricular pacing at 60 bpm. Resting blood pressure is 130/90 mmHg. 0.4 mg of regadenoson was infused per usual protocol followed by rapid intravenous saline flush injection. Continuous EKG monitoring was performed. The maximum heart rate was 66 bpm which was 48% of max impacted heart rate the maximum workload was 1 metabolic equivalent. At rest there were no ST or T wave changes noted to suggest ischemia and at peak infusion nonspecific ST changes were noted which did not meet the criteria for ischemia. No clinical angina is noted. The final blood pressure was 130/72 mmHg. Myocardial perfusion protocol. 11.8 mCi of technetium 99m sestamibi was injected at rest. 0.4 mg of regadenoson was infused per usual protocol. At peak infusion 33.6 mCi of technetium 99m sestamibi was injected stress images were obtained stress and rest images were reconstructed and compared in the short axis vertical long and horizontal long axis. Gated images were also obtained. Perfusion SPECT analysis: Review of the stress images demonstrate normal uptake of tracer noted in all areas of the myocardium. Apical thinning is noted. The resting images similar demonstrated normal uptake of tracer noted in all areas of the myocardium. Apical thinning is present with no areas of reversibility are noted to suggest ischemia and no previous infarct is noted. Gated SPECT analysis: The gated ejection fraction is normal. Conclusion: Normal pharmacologic myocardial perfusion stress test. Preserved ejection fraction.
== END | disposition home or self-care (01) ==
LOC: CVS 07:05
PROVIDERS: PCP Family Medicine; Referring Provider Physician Assistant Medical; Visit Provider Physician Assistant Medical
DX: Z01.810 Encounter for preprocedural cardiovascular examination (principal); Z95.5 Presence of coronary angioplasty implant and graft; I25.2 Old myocardial infarction
CPT/HCPCS: 78452; 93017; A9500; A4216; J2785

== ENCOUNTER 2022-07-24 05:21 | Inpatient (IN) | payer MEDICARE, SELFPAY ==
[2017-06-01 08:52] VITALS: BMI 24.1
[2022-07-17 14:44] LABS: Absolute Lymphocyte Count 1.28 X10^3/uL (0.83-4.51); Absolute Neutrophil Count 6.5 X10^3/uL (2.0-7.7); Basophil# 0.04 X10^3/uL; Basophil% 0.5 % (0-1); Eosinophil# 0.07 X10^3/uL; Eosinophils% 0.8 % (0-5); Hematocrit 38.3 % (37-47); Hemoglobin 12.8 g/dL (12.0-15.0); Lymphocyte # 1.28 X10^3/ul (0.83-4.51); Lymphocyte % 15.1 % (19-41); Mean Corp Hgb Conc 33.4 g/dL (32-36); Mean Corpuscular Hgb 33.2 pg (27.0-32.0); Mean Corpuscular Volume 99.5 fL (81-99); Mean Platelet Vol. 9.3 fl (6.2-12.0); Monocyte# 0.57 X10^3/uL; Monocyte% 6.7 % (0-10); NRBC Flagged by Analyzer 0 % (0-5); Neutrophil # 6.47 X10^3/uL (2.7-7.7); Neutrophil % 76.5 % (47-70); Platelet Count 225 K/mm3 (150-450); RBC Distribution Width CV 12.7 % (11.6-14.6); RBC Distribution Width SD 46.3 fl (35.1-43.9); Red Blood Count 3.85 M/mm3 (4.2-5.4); White Blood Count 8.5 K/mm3 (4.4-11.0)
[2022-07-17 14:52] LABS: International Normalized Ratio 1.2; Prothrombin Time (Protime)PT. 15.1 SECONDS (11.7-14.9)
[2022-07-17 14:53] LABS: Partial Thromboplast Time 37.9 Seconds (24.1-36.2)
[2022-07-17 15:14] LABS: Anion Gap 5 (5-15); BUN 24 mg/dL (7-18); BUN/Creat Ratio 16.7 RATIO (10-20); Calcium,Total 9.2 mg/dL (8.5-10.1); Chloride 105 mmol/L (98-107); Creatinine, Serum 1.44 mg/dL (0.55-1.02); EST Glomerular Filtration Rate 37 mL/min (>60); Est Glom Filt Rate - Afr Amer 45 mL/min (>60); Glucose 93 mg/dL (74-106); Potassium 4.8 mmol/L (3.5-5.1); Sodium Level 137 mmol/L (136-145)
[2022-07-17 15:16] LABS: AST(SGOT) 31 U/L (15-37); Alanine Aminotransfer ALT/SGPT 28 U/L (13-56); Albumin, Serum 3.8 g/dL (3.2-5.0); Alkaline Phosphatase 84 U/L (45-117); Bilirubin, Direct 0.12 mg/dL (0.00-0.30); Globulin 3.7 g/dL (2.2-4.2); Protein, Total 7.5 g/dL (6.4-8.2)
[2022-07-24] VITALS (25 sets, daily range): BP systolic 97–182; BP diastolic 44–100; PULSE 60–63; RESP 13–23; TEMP 36–36.6; O2SAT 92–100; BMI 22.4; BMI 27.1
[2022-07-24] MEDS: Lactated Ringers 1,000 ML 15 ML IV (06:18)
[2022-07-24] MEDS: Vancomycin IV 1,000 MG/200 ML BAG 200 MG IV (06:19)
--- NOTE | 2022-07-24 07:22 | PCM.HP.BLA ---
History and Physical Allergies Penicillins [PCN] Allergy (Verified 07/17/22 14:58) Hivesaspirin Adverse Reaction (Severe, Verified 07/17/22 14:58) Severe GI upsetatorvastatin Adverse Reaction (Severe, Verified 07/17/22 14:58) elevated liver enzymesmetformin Adverse Reaction (Verified 07/17/22 14:58) gi upset Medications nitroglycerin 0.4 mg sublingual tablet 0.4 mg sublingual Q5-15M PRN chest pain #25 tabs 08/03/18 [Rx Confirmed 07/17/22] albuterol sulfate 2.5 mg/0.5 mL solution for nebulization 2.5 mg inhalation Q4H PRN Shortness Of Breath 08/20/20 [History Confirmed 07/17/22] meclizine 25 mg tablet 25 mg PO DAILY PRN Vertigo 08/20/20 [History Confirmed 07/17/22] levothyroxine 50 mcg tablet 25 mcg PO DAILY thyroid 12/04/21 [History Confirmed 07/17/22] vit C 250 mg-vit E 90 mg-zinc 40 mg-copper 1 ip-[id number]-[id number] capsule (PreserVision AREDS-2) 1 cap PO BID eye health 12/04/21 [History Confirmed 07/17/22] apixaban 5 mg tablet 5 mg PO BID blood thinner #180 tabs 05/05/22 [Rx Confirmed 07/17/22] magnesium oxide 400 mg PO DAILY SUPPLEMENT 05/05/22 [History Confirmed 07/17/22] amiodarone 200 mg tablet 200 mg PO DAILY heart #90 tabs 07/03/22 [Rx Confirmed 07/17/22] lisinopril 20 mg tablet 20 mg PO DAILY BP 07/17/22 [History Confirmed 07/17/22] metoprolol tartrate 25 mg tablet 25 mg PO BID BP 07/17/22 [History Confirmed 07/17/22] multivit with [id number]-#190herbal 18 mg iron-800 mcg-150 mg tablet (Vitamin D3 Complete) 1 tab PO DAILY SUPPLEMENT 07/17/22 [History Confirmed 07/17/22] PFSH Medical History? Ambulates with cane Anxiety Arthritis Atherosclerotic heart disease of [place] coronary artery without angina pectoris Atrial fibrillation with rapid ventricular response (01/21/20) Bilateral carotid artery stenosis Bone spur of foot Cardiology follow-up encounter Chronic cough Complete heart block COPD (chronic obstructive pulmonary disease) Depression Diverticulosis Dizziness and giddiness DVT (deep venous thrombosis) Easy bruising Essential (primary) hypertension Excessive bleeding Fatigue Former smoker Ganglion cyst of left foot Gastric reflux GERD (gastroesophageal reflux disease) History of atrial fibrillation History of echocardiogram History of steroid therapy History of ulceration Hyperlipidemia Hypothyroidism Intermittent chest pain Leg cramps Lichen sclerosus Nonrheumatic mitral (valve) prolapse NSTEMI (non-ST elevated myocardial infarction) (05/30/17) On home oxygen therapy Osteoarthritis Paroxysmal atrial fibrillation Paroxysmal atrial flutter Post-menopausal Restless legs Right bundle branch block (RBBB) with left anterior fascicular block Right pulmonary embolus (08/17/19) Seasonal allergies Sick sinus syndrome Vertigo Walker as ambulation aid Wears dentures Wears glasses Surgical History? H/O bladder repair surgery H/O excision of ganglion cyst History of appendectomy History of back surgery History of cardioversion (04/19/20) History of carpal tunnel release History of coronary artery stent placement (05/31/17) History of hysterectomy History of left heart catheterization (09/10/17) Presence of permanent cardiac pacemaker (04/19/15) Family History? Father Cancer ?? ? lung cancer Heart diseaseMother CVA (cerebral vascular accident) HypertensionSister Hypertension Cancer ?? ? lung cancerSon Diabetes Hypertension Myocardial infarction,? Onset Age: 48 Social History? Smoking Status:? Former smoker alcohol intake:? never substance use type:? does not use caffeine:? Yes Type: coffee Number of servings: 3 what type of physical activity do you participate in:? none seatbelt use:? always do you feel safe at home:? Yes HPI HPI HPI: MICK CHINCHILLA, is a 86 F who presents to the office today for follow up discussion of left carotid stenosis. No new neurologic or vision issues. Has had a CTA and is here to discuss. ROS General General: Yes appetite and weakness; No weight change, fatigue, colon cancer or breast cancer HEENT HEENT: Yes hoarseness; No difficulty swallowing, eye injury, eye surgery or swollen glands Endo Endocrine: Yes thyroid disease and Hair loss; No diabetes mellitus, thyroid cancer, heat intolerance or cold intolerance Skin Skin: No rash or changing moles Musc Musculoskeletal: Yes back problems, arthritis and joint pain; No rheumatoid arthritis or gout Cardio Cardiovascular: Yes pacemaker, heart disease, atrial fibrillation, high blood pressure, heart attack, heart stent, palpitations and shortness of breat with exertion; No murmur or chest pain Psych Psychiatric: No depression, anxiety or hearing voices Resp Respiratory: Yes shortness of breath, No sleep apnea, No cough, Yes COPD, Yes asthma, No emphysema and No wheezing Gastro Gastrointestinal: No abdominal pain, No nausea or vomiting, Yes diarrhea, Yes constipation, No blood in stool, No acid reflux, No hemorrhoids, No ulcers, No gallbladder problem and No black,tarry stools Ramses Hematologic: Yes blood thinners, No blood disorders, No bleeding, No anemia and Yes blood clots Neuro Neurologic: No system reviewed and no additional complaints, except as documented, No as per HPI, No abnormal gait, No abnormal hearing, No abnormal movements, No abnormal speech, No behavioral changes, No burning sensations, No confusion, No convulsions, No disequilibrium, No dizziness, No localized weakness, No frequent falls, No headache(s), No lack of coordination, No loss of vision, No memory loss, Yes numbness, No other visual disturbances, No radicular pain, No restless legs, No sensory deficit, No syncope, Yes tingling, No tremor(s), Yes weakness and No other Exam Const General: cooperative, healthy appearing, comfortable, no acute distress and well developed Nutritional Appearance: well nourished Orientation: alert, awake and oriented [facility]3 [facility]: normocephalic and atraumatic Ears: hearing grossly normal bilaterally Nose: external nose normal Eyes General: appearance normal, both eyes and all related structures EOM: EOM intact bilaterally Neck Neck: normal visual inspection, full ROM and trachea midline Resp Effort & Inspection: normal respiratory effort, able to speak in complete sentences, symmetric chest movement, no audible wheezes, not labored, no stridor and no use of accessory muscles Cardio Rate: regular rate Rhythm: regular rhythm Skin General: no rashes or lesions noted and no erythema Wounds: no wounds Neuro Cranial Nerves: CN's II-XI intact bilaterally and EOM intact bilaterally Speech: speech normal Gait: normal gait Motor: strength 5/5 throughout Sensory Exam: no sensory deficits noted Psych Appearance: grossly normal and well kempt Mental Status: mental status grossly normal Mood: congruent mood Speech and Movement: speech and movement normal Thought Content: normal Judgment: judgment good Coding Level of Care Code Off vis,est,level 3 Diagnoses Bilateral carotid artery stenosis? I65.23 Assessment and Plan Assessment and Plan (1) Bilateral carotid artery stenosis: ?Status:?Chronic ?Comment: Duplex- Interpretation Summary Moderate (50-69%) stenosis right extracranial internal carotid. Moderate (50-69%) stenosis left extracranial internal carotid. Patent and antegrade vertebrals bilaterally. CTA- images reviewed: right ICA 60% stenosis, minimal calcification; left ICA 70%, severe calcification ?Plan: -left CEA
--- NOTE | 2022-07-24 07:30 | PLAQ_PTH ---
PATIENT: MICK CHINCHILLA LOC: [facility] U#:[id number] AGE/SX: 87/F ROOM: [place] [id number] RE07/24/[address]: Dr. Dieter Johnson MD : 1935 BED: 1 DIS: 07/25/2022 SPEC #: [id number] RECD: 07/24/22 10:46 STATUS: PABLO REKristie #: [id number] NANCY: 07/24/22 07:[address]: Dieter Johnson DEPT: SURGICAL PATHOLOGY RECD BY: Rosita García ENTERED: 07/24/22 13:28 SP TYPE: PLAQUE OTHR DR: MD Dr. Jian Bauman MD Tissues: PLAQUE Procedures: Decalcification bone/plaque Surgery Specimen Level III HEADER OPERATION: Carotid endarterectomy PRE-OP DIAGNOSIS: Bilateral carotid artery stenosis TISSUE SUBMITTED: Left carotid plaque MICROSCOPIC DIAGNOSIS Left carotid plaque, endarterectomy: Calcified atheromatous plaque consistent with severe stenosis. AM:dinorah 07/27/2022 GROSS DESCRIPTION Received in fixative is one container labeled with the patient's name and designated left carotid plaque. The specimen consists of two tubular pieces of mcgrath, indurated tissue measuring 1.5 cm in length and 1.0 cm in diameter and 1.5 cm in length and 1.2 cm in diameter. Also present in the container are multiple pieces of mcgrath, indurated tissue measuring in aggregate 1.5 x 0.5 x 0.2 cm. The specimen cuts with gritty sensation. The entire specimen is submitted in one cassette after decalcification. / SJ:dinorah 07/24/2022 TC:5 CPT: 25319, [id number]
[2022-07-24] MEDS: Heparin Injection (Vial) 5,000 UNIT/ML VIAL 5000 UNIT (07:38)
[2022-07-24] MEDS: Bupivacaine 0.25% 30 ML Vial (10:22)
--- NOTE | 2022-07-24 10:30 | PCM.OPRPT ---
Report of Operation Date of Procedure: 07/24/22 Pre-Operative Diagnosis: left carotid stenosis Post-Operative Diagnosis: same Surgery/Procedure Performed:: left carotid endarterectomy Surgeon: Dieter Johnson Type of Anesthesia: General Drains: 19 Fr ONELIA Estimated Blood Loss (mL): 20 Description of Procedure: HPI: Patient is an 87-year-old female with high-grade left carotid artery stenosis and retinal ischemia. She presents for elective endarterectomy. Description of procedure: Upon obtaining form consent and verification correct patient center site the patient was taken to the operating where she was placed under general anesthesia. She was then positioned prepped and draped in usual sterile fashion and timeout was performed. Oblique incision was made along the anterior border the sternocleidomastoid and Bovie electrocautery used to dissect down through subcutaneous tissue down to the level of platysma. The platysma was divided and self-retaining retractors put in position. Further dissection of care with Bovie was carried down to the anterior border the sternocleidomastoid along posterior lateral retraction and exposing the jugular vein. Sharp dissection was then used to dissect free the anterior surface of the jugular and the facial vein was ligated with silk ties and divided. The internal jugular vein was then retracted laterally exposing the carotid vessels and sharp dissection was used to dissect free the proximal common carotid artery. Of note the vagus was in an anterior position so it was mobilized and retracted anteriorly. A right angle used to place a vessel loop and care was taken to identify and protect the vagus nerve. We then carried our dissection distally onto the internal carotid artery beyond the area of palpable and visible plaque. A right angle was used to place a vessel loop around the internal carotid artery with care taken to identify and protect the hypoglossal nerve. Patient was then heparinized and allowed to circulate for 3 minutes during which time the external carotid artery was dissected free with sharp dissection and a right angle used to place a vessel loop. The vessels were then occluded first the internal followed by the common the external. A longitudinal arteriotomy was then created with 11 blade on the common carotid artery and then carried onto the internal carotid artery beyond the area of plaque with Serrato scissors. A 10 [place] shunt was then placed first distally in the internal carotid artery then allowed to backbleed before placing in the common carotid artery. The shunt was interrogated Doppler found a patent low resistance signal. We then performed our endarterectomy with a freer elevator with satisfactory endpoint distally onto the internal carotid artery and eversion endarterectomy onto the external carotid artery. The lumen was then flushed with heparinized saline to clear debris in the distal endpoint tacked with 7-0 Prolene interrupted sutures. A bovine pericardial patch was then brought on the field and secured in position with 6-0 Prolene in a running fashion. Prior to completing the suture line the shunt was removed and the vessels backbled. After completing the suture line the internal carotid artery was allowed to backbleed into the bifurcation then reoccluded its origin. Clamps were then removed from the external and common carotid artery allowing 10 heartbeats of antegrade flow to flush before reestablishing antegrade flow into the internal carotid artery. After clamps were removed satisfactory stasis was noted and the vessels were interrogated with Doppler. The internal carotid artery had low resistance signal in the external carotid artery was patent with appropriate signal. The patient was then reversed with protamine and the incision inspected for hemostasis. A 19 Yoruba channel ONELIA was placed via separate stab incision and the incision was then closed with 2-0 Vicryl, 3-0 Vicryl, 4 Monocryl and Dermabond for the skin. At the conclusion the case patient was awakened anesthesia moving all extremities to command. She was then taken the intensive care unit for hemodynamic and neurologic monitoring.
[2022-07-24] MEDS: 0.45% Normal Saline 1,000 ML 75 ML IV (11:41)
[2022-07-24] MEDS: Labetalol (Prefilled) 20 MG/4 ML 10 MG IV ×2 (11:50→22:01)
[2022-07-24] MEDS: oxyCODONE 5 MG Tablet PO (11:50)
[2022-07-24] MEDS: BENZOCAINE/MENTHOL 1 LOZENGE MUCOUS MEM ×2 (11:50→16:10)
[2022-07-24] MEDS: 0.9% Saline Lock 10 ML Syringe IV ×2 (11:50→22:02)
[2022-07-24] MEDS: Acetaminophen 500 MG Tablet 1000 MG PO ×2 (13:17→20:41)
[2022-07-24 13:28] LABS: ACT Activated Clotting Time 137 sec (74-137)
[2022-07-24 13:29] LABS: ACT Activated Clotting Time 239 sec (74-137)
[2022-07-24 13:29] LABS: ACT Activated Clotting Time 233 sec (74-137)
--- NOTE | 2022-07-24 15:45 | CASEMGMT ---
Addendum entered by Ashley Hood 07/31/22 09:09: VM received from Harika @ [facility] that pt did not go to the appt @ Dr Viveros's office on 07/27 and that she rescheduled it for 08/08, so therefore they are unable to start HHC at this time. Per Harika she has spoken w/the nurse @ Dr Viveros's office to inform them, if HHC is still needed after the office visit, that a new order would be needed from Dr Viveros for HHC. Harika also states she has attempted to contact pt to but she has not returned her call. Addendum entered by Ashley Hood 07/25/22 08:47: 07/24/22 @ 1600. Referral made w/Harika @ [facility]. They are able to accept w/SOC slated for . Pt's PCP requires office visit prior to following for HHC. Appt scheduled w/Dr Viveros for 07/27 @ 10 AM. This was added in pt's discharge plan and pt was [facility] aware of [facility], [facility] and [facility] slated for . She voices appreciation. Original Note: RN CM RESIDENT CARE ASSOCIATE CM to room to meet with patient for initial transition planning/care coordination assessment. RN CM introduced self and role at [facility].? Pt voices understanding and consents to assessment at this time.? Pt sitting up in chair in room in no distress at this time.? Pt is A/O at this time and answers all questions appropriately.?? Care providers, pharmacy, and demographics verified/updated at this time. PCP: Dr Viveros Specialists: Dr Johnson-vascular, G/cardiology Preferred Pharmacy: [facility] Retail Insurance: [facility] Prescription Benefit:? Yes Living Will/HPOA:? Has both LW and HCPOA, who is her son, Montez. Pt made aware AD are not on file @ [facility]. LNOK: 4 sons. 2 are Montez (POA) and Jaswinder. Living Arrangements: Lives alone in mobile home w/3 steps to enter w/railing. Pt states she takes them slowly. Indep w/ADL's and IADL's and manages her own medications. Neighbor helps w/cleaning. Transportation: Pt states drives short distances only. Neighbor helps w/transportation and neighbor's sister will be taking pt home @ discharge. DME: ?States has the following DME:? shower chair, cane, walker, rollator, and nebulizer. Pt states is interested in Medical alert system. Provided at this time. Pt states no need for further DME at this time.? HHC/SNF: No hx of SNF. Has had [facility] HHC in the past and would like them again. Pt declines wanting list of other HHC agencies. Pt states wants therapy and declines need for SN. Pt wishes to return home and states has no concerns with going home at time of discharge.? CM to follow for any further discharge planning/needs.? Pt voices no further concerns/needs at this time.? Advised pt to ask for CM if any further questions/concerns/needs arise.? Voices understanding. PLAN: ?Home w/[facility] HHC: PT/OT Sonia GUEVARA RN CM
[2022-07-24] MEDS: Lisinopril 20 MG Tablet PO (16:06)
[2022-07-24] MEDS: Metoprolol Tartrate 25 MG Tablet PO (20:42)
[2022-07-24] MEDS: Multivitamin (Healthy Eyes) Capsule 1 CAP PO (20:42)
[2022-07-24] MEDS: hydrALAZINE 20 MG/ML Vial 10 MG IV (22:39)
[2022-07-25] VITALS (16 sets, daily range): BP systolic 91–159; BP diastolic 46–94; PULSE 60–65; RESP 13–21; TEMP 36.5–37; O2SAT 94–98; BMI 27.8
[2022-07-25 03:32] LABS: Absolute Lymphocyte Count 0.85 X10^3/uL (0.83-4.51); Absolute Neutrophil Count 7.1 X10^3/uL (2.0-7.7); Basophil# 0.02 X10^3/uL; Basophil% 0.2 % (0-1); Eosinophil# 0.02 X10^3/uL; Eosinophils% 0.2 % (0-5); Hemoglobin 10.2 g/dL (12.0-15.0); Lymphocyte # 0.85 X10^3/ul (0.83-4.51); Lymphocyte % 9.8 % (19-41); Mean Corp Hgb Conc 32.9 g/dL (32-36); Mean Corpuscular Volume 100.3 fL (81-99); Mean Platelet Vol. 9.5 fl (6.2-12.0); Monocyte# 0.67 X10^3/uL; Monocyte% 7.7 % (0-10); NRBC Flagged by Analyzer 0 % (0-5); Neutrophil # 7.12 X10^3/uL (2.7-7.7); Neutrophil % 81.8 % (47-70); Platelet Count 171 K/mm3 (150-450); RBC Distribution Width CV 12.5 % (11.6-14.6); RBC Distribution Width SD 45.6 fl (35.1-43.9); Red Blood Count 3.09 M/mm3 (4.2-5.4); White Blood Count 8.7 K/mm3 (4.4-11.0)
[2022-07-25] MEDS: Acetaminophen 500 MG Tablet 1000 MG PO ×2 (05:32→13:47)
[2022-07-25] MEDS: 0.9% Saline Lock 10 ML Syringe IV (05:32)
[2022-07-25] MEDS: Levothyroxine 50 MCG Tablet 25 MCG PO (05:32)
[2022-07-25] MEDS: Metoprolol Tartrate 25 MG Tablet PO (08:36)
[2022-07-25] MEDS: Magnesium Chloride 64 MG Delay Rel.Tablet 128 MG PO (08:36)
[2022-07-25] MEDS: Amiodarone 200 MG Tablet PO (08:36)
[2022-07-25] MEDS: Multivitamin (Healthy Eyes) Capsule 1 CAP PO (08:36)
[2022-07-25] MEDS: Enoxaparin 40 MG/0.4 ML Syringe SC (08:37)
[2022-07-25] MEDS: Multivitamins,Ther W-Minerals Tablet 1 TABLET PO (08:37)
[2022-07-25] MEDS: Lisinopril 20 MG Tablet PO (08:39)
--- NOTE | 2022-07-25 10:11 | PN.SURG_ITS ---
Subjective Subjective Patient is doing well this morning. Reports she feels much better today than she did yesterday. She is tolerating diet. She is voiding, though with some hesitancy (this is her baseline). She was up to the chair this morning without difficulty. Her BPs have been slightly elevated but overall stable, she received her home BP regimen this morning. No CORLEY, sign/symptoms of stroke, SOB, CP. Objective Data Objective Data A&Ox3, NAD RRR Nonlabored respirations L CEA incision site C/D/I, ONELIA drain in place with minimal drainage this morning. CN's II-XI intact bilaterally Vital Signs: Vital Signs Temp Pulse Resp BP Pulse Ox O2 Del Method O2 Flow Rate 97.7 F L 65 15 145/65 H 95 Room Air 8 07/25/22 08:00 07/25/22 08:36 07/25/22 08:00 07/25/22 08:00 07/25/22 08:00 07/25/22 08:00 07/24/22 11:22 FiO2 25 07/25/22 04:00 Oxygen Flow Rate (L/min) 8 Oxygen Delivery Method Room Air Weight: 142 lb 6.698 oz Body Mass Index (BMI) 27.8 Intake & Output: Intake and Output for Last 24 Hours 07/23/22 07/24/22 07/25/22 23:59 23:59 23:59 Intake Total 618.18 / 618.18 1120 / 1120 Output Total 220 / 430 870 / 870 Balance 398.18 / 188.18 250 / 250 Lab / Micro Data Result Diagrams: 07/25/22 03:20 07/17/22 14:30 Labs: Laboratory Results - last 24 hr 07/24/22 08:17: Activated Clotting Time 137 07/24/22 08:52: Activated Clotting Time 239 H 07/24/22 09:27: Activated Clotting Time 233 H 07/25/22 03:20: WBC 8.7, RBC 3.09 L, Hgb 10.2 L, Hct 31.0 L, MCV 100.3 H, MCH 33.0 H, MCHC 32.9, RDW Std Deviation 45.6 H, RDW Coeff of Guy 12.5, Plt Count 171, MPV 9.5, Immature Gran % (Auto) 0.300, Neut % (Auto) 81.8 H, Lymph % (Auto) 9.8 L, [place] % (Auto) 7.7, Eos % (Auto) 0.2, Baso % (Auto) 0.2, Absolute Neuts (auto) 7.1, Absolute Lymphs (auto) 0.85, Nucleated RBC % 0 Assessment & Plan Assessment/Plan (1) Left carotid artery stenosis: PLAN: Plan She is POD#1 Left carotid endarterectomy. ONELIA Drain was pulled without issue. Arterial line was pulled last night d/t leaking/edema at the site. BP overall stable, home BP meds were restarted this morning. Tolerating diet, voiding, pain well controlled. Patient was up to chair this morning. She will ambulate with nursing this morning/early afternoon. Anticipate discharge this afternoon.
--- NOTE | 2022-07-25 14:10 | PCM.DC.SUM ---
Providers Date of Admission: 07/24/22 Primary Care Physician: Dr. Jian Viveros MD Reason For Visit: LT CAROTID ENDARTERECTOMY Diagnosis Discharge Diagnosis (1) Left carotid artery stenosis: Status: Acute Code(s): I65.22 - Occlusion and stenosis of left carotid artery Plan She is POD#1 Left carotid endarterectomy. ONELIA Drain was pulled without issue. Arterial line was pulled last night d/t leaking/edema at the site. BP overall stable, home BP meds were restarted this morning. Tolerating diet, voiding, pain well controlled. Patient was up to chair this morning. She will ambulate with nursing this morning/early afternoon. Anticipate discharge this afternoon. Medications at Discharge Home Medications nitroglycerin 0.4 mg sublingual tablet 0.4 mg sublingual Q5-15M PRN chest pain #25 tabs 08/03/18 albuterol sulfate 2.5 mg/0.5 mL solution for nebulization 2.5 mg inhalation Q4H PRN Shortness Of Breath 08/20/20 meclizine 25 mg tablet 25 mg PO DAILY PRN Vertigo 08/20/20 levothyroxine 50 mcg tablet 25 mcg PO DAILY thyroid 12/04/21 vit C 250 mg-vit E 90 mg-zinc 40 mg-copper 1 [id number] capsule (PreserVision AREDS-2) 1 cap PO BID eye health 12/04/21 apixaban 5 mg tablet 5 mg PO BID blood thinner #180 tabs 05/05/22 magnesium oxide 400 mg PO DAILY SUPPLEMENT 05/05/22 amiodarone 200 mg tablet 200 mg PO DAILY heart #90 tabs 07/03/22 lisinopril 20 mg tablet 20 mg PO DAILY BP 07/17/22 metoprolol tartrate 25 mg tablet 25 mg PO BID BP 07/17/22 multivit with [id number] 18 mg iron-800 mcg-150 mg tablet (Vitamin D3 Complete) 1 tab PO DAILY SUPPLEMENT 07/17/22 oxycodone 5 mg tablet 5 mg PO Q8H PRN PRN Pain Score 4-10 3 days #9 tabs 07/25/22 Hospital Course Operations - (Left carotid endarterectomy) Summary of Care Provided Hospital Course: Patient had left carotid endarterectomy on 07/24/2022. She tolerated the procedure well. She was routinely admitted to ICU for neurologic and hemodynamic monitoring postoperatively. A ONELIA drain was placed during surgery and removed on POD#1 without issue. She was hypertensive following surgery requiring use of PRN medications to manage BP. Today, however, her home medications were restarted and her pressures have been stable without need for PRNs. I do advise patient to check her blood pressure at home, morning and evening, especially if she has a CORLEY or any lightheadedness and she will call the office if her pressures continue to be elevated. Otherwise, she is voiding without difficulty (other than baseline hesitancy symptoms), she is tolerating a full diet, she is ambulating well and her pain is well controlled. She is medically stable for discharge home with HHC being arranged by [facility]. She will follow-up as an outpatient as scheduled. Physical Exam Const oriented x3 and no apparent distress Resp normal respiratory effort and clear to auscultation bilaterally Cardio regular rate and regular rhythm Extremity no clubbing, cyanosis or edema Skin no rashes or lesions noted Trauma: no lacerations or abrasions Wound Narrative: L neck incision site with surgical glue C/D/I. No significant erythema/swelling/bruising. Weight / BMI Weight Weight: 142 lb 6.698 oz Body Mass Index (BMI) 27.8 ABG / Lab / Microbiology Data Result Diagrams: 07/25/22 03:20 07/17/22 14:30 Laboratory: Laboratory Results - last 24 hr 07/25/22 03:20: WBC 8.7, RBC 3.09 L, Hgb 10.2 L, Hct 31.0 L, MCV 100.3 H, MCH 33.0 H, MCHC 32.9, RDW Std Deviation 45.6 H, RDW Coeff of Guy 12.5, Plt Count 171, MPV 9.5, Immature Gran % (Auto) 0.300, Neut % (Auto) 81.8 H, Lymph % (Auto) 9.8 L, [place] % (Auto) 7.7, Eos % (Auto) 0.2, Baso % (Auto) 0.2, Absolute Neuts (auto) 7.1, Absolute Lymphs (auto) 0.85, Nucleated RBC % 0 D/C Instructions Discharge Diet: No restrictions May shower in (days): 1 Weight Bearing Status: Weight bearing as tolerated Lifting Restricted to (Lbs): 20 Lifting Restrictions: Do not lift greater than 20 pounds for 3 weeks Call your doctor if your incision/area has: Sudden Increased Bleeding, Increased Pain/ Swelling and Foul Smelling Discharge Call your doctor if you observe: Fever of 101 or Higher and Uncontrolled pain Remove Dressing in: 1 day Additional Dressing/Incision Instructions: Tomorrow, you may remove the small bandage over where the drain was located. If there is still some drainage from this area, you may re-cover with a band-aid. If there is no drainage then you may leave it uncovered. The rest of your incision is covered with surgical glue which will protect it, no need to keep this covered. Additional Instructions: The surgical glue over the incision will peel off on its own over the next few weeks. Do not pick at it or try to peel it off. You may shower tomorrow. It is okay for soap and water to run over the incision site. Do not submerge the incision site in water/take a bath for 3 weeks. Do not lift greater than 20 pounds for [address] you feel you can move your head/neck enough to check your blindspots. Do not drive if you are taking the prescription pain medication (oxycodone). Do not take the oxycodone with any other prescription pain medications. You may take it with tylenol. Take the oxycodone only as needed as prescribed. Your blood pressure has been a bit high in the hospital, please continue to check it morning and evening at home. If it continues to be higher than usual or >150 top number/systolic please contact our office for instructions, especially if you are having a headache. Please Follow Up With: Dieter Johnson MD When: 08/08/22 Meaningful Use Info Meaningful Use Diagnoses (Choose all that apply): None applicable Discharge Plan Admission Admit Date/Time: 07/24/22 05:21 Primary Reason for Your Visit: Left carotid endarterectomy Attending Provider: Dieter Johnson Primary Care Provider: Jian Viveros Consulting Providers: Clint Montes Discharge Orders/Prescriptions Prescriptions: New oxycodone 5 mg Tablet 5 mg PO Q8H PRN PRN (Reason: Pain Score 4-10) 3 Days Qty: 9 0RF Continued albuterol sulfate 2.5 mg/0.5 mL solution for nebulization 2.5 mg inhalation Q4H PRN (Reason: Shortness Of Breath) meclizine 25 mg tablet 25 mg PO DAILY PRN (Reason: Vertigo) magnesium oxide 400 mg magnesium capsule 400 mg PO DAILY PreserVision AREDS-2 250-90-40-1 mg Capsule 1 cap PO BID levothyroxine 50 mcg Tablet 25 mcg PO DAILY Vitamin D3 Complete 18 mg iron-800 mcg-150 mg Tablet 1 tab PO DAILY lisinopril 20 mg tablet 20 mg PO DAILY metoprolol tartrate 25 mg tablet 25 mg PO BID nitroglycerin 0.4 mg tablet, sublingual 0.4 mg SUBLINGUAL Q5-15M PRN (Reason: chest pain) Qty: 25 3RF Rx Instructions: until response; do not exceed 3 doses per episode amiodarone 200 mg tablet 200 mg PO DAILY Qty: 90 3RF Held apixaban 5 mg tablet 5 mg PO BID Qty: 180 3RF Hold Instructions: Resume on 07/26/22. Hold your evening dose of Eliquis today. Re-start your Eliquis tomorrow (07/26/22) morning and then continue to take as usual. Referrals / Follow Up: Jian Viveros MD [Primary Care Provider] - 07/27/22 10:00 am Disposition Disposition (needs filled in before D/C Order can be placed): Home Health Service
== END 2022-07-25 15:34 | disposition home health service (06) | DRG 39 ==
LOC: ACINP 05:47 → ICU 11:37
PROVIDERS: Anesthesiology; Admitting Provider Surgery Trauma Surgery; PCP Family Medicine; Referring Provider Surgery Trauma Surgery; Visit Provider Surgery Trauma Surgery
PROC: 03CL0ZZ Extirpation of Matter from Left Internal Carotid Artery, Open Approach (ICD-10-PCS; CPT 35301; principal; 2022-07-24 07:10)
DX: I65.22 Occlusion and stenosis of left carotid artery (principal); E78.5 Hyperlipidemia, unspecified; I48.0 Paroxysmal atrial fibrillation; I10 Essential (primary) hypertension; I25.10 Atherosclerotic heart disease of native coronary artery without angina pectoris; Z87.891 Personal history of nicotine dependence
CPT/HCPCS: 36415; 78452; 80048; 80076; 85025; 85347; 85610; 85730; 86850; 86900; 86901; 88304; 88311; 93017; 94668; 97162; 97166; 97802; 99252; A4648; A9500; J7040; J7120; A4216; G0463; J2785

== ENCOUNTER → 2022-09-28 | Outpatient (CLI) | payer MEDICARE, SELFPAY ==
[2017-06-01 08:52] VITALS: BMI 24.1
[2022-09-28 17:40] LABS: Absolute Lymphocyte Count 1.14 X10^3/uL (0.83-4.51); Absolute Neutrophil Count 5.4 X10^3/uL (2.0-7.7); Basophil# 0.05 X10^3/uL; Basophil% 0.7 % (0-1); Eosinophil# 0.08 X10^3/uL; Eosinophils% 1.1 % (0-5); Hematocrit 35.8 % (37-47); Hemoglobin 11.9 g/dL (12.0-15.0); Lymphocyte # 1.14 X10^3/ul (0.83-4.51); Mean Corp Hgb Conc 33.2 g/dL (32-36); Mean Corpuscular Hgb 33.2 pg (27.0-32.0); Mean Platelet Vol. 9.8 fl (6.2-12.0); Monocyte# 0.49 X10^3/uL; Monocyte% 6.9 % (0-10); NRBC Flagged by Analyzer 0 % (0-5); Neutrophil # 5.37 X10^3/uL (2.7-7.7); Neutrophil % 75.2 % (47-70); Platelet Count 215 K/mm3 (150-450); RBC Distribution Width CV 12.3 % (11.6-14.6); RBC Distribution Width SD 45.1 fl (35.1-43.9); Red Blood Count 3.58 M/mm3 (4.2-5.4); White Blood Count 7.1 K/mm3 (4.4-11.0)
[2022-09-28 18:02] LABS: ALB/GLOB Ratio 1.1 RATIO (0.9-2.4); AST(SGOT) 31 U/L (15-37); Alanine Aminotransfer ALT/SGPT 27 U/L (13-56); Albumin, Serum 3.7 g/dL (3.2-5.0); Alkaline Phosphatase 81 U/L (45-117); Anion Gap 6 (5-15); BUN 23 mg/dL (7-18); BUN/Creat Ratio 17.8 RATIO (10-20); Calcium,Total 8.8 mg/dL (8.5-10.1); Chloride 107 mmol/L (98-107); Cholesterol 187 mg/dL (200); Creatinine, Serum 1.29 mg/dL (0.55-1.02); EST Glomerular Filtration Rate 42 mL/min (>60); Est Glom Filt Rate - Afr Amer 51 mL/min (>60); Globulin 3.5 g/dL (2.2-4.2); Glucose 105 mg/dL (74-106); High Density Lipoprotein 52 mg/dL; Magnesium 2.1 mg/dL (1.6-2.6); Phosphorus 3.1 mg/dL (2.5-4.9); Potassium 4.5 mmol/L (3.5-5.1); Protein, Total 7.2 g/dL (6.4-8.2); Sodium Level 137 mmol/L (136-145); T4 Free Direct 0.78 ng/dL (0.76-1.46); Triglycerides 129 mg/dL; Very Low Density Lipoprotein 26 mg/dL (5-40)
[2022-09-28 18:06] LABS: Vitamin B12 342 pg/mL (211-911)
[2022-09-29 14:15] LABS: PTHIN 113.6 pg/mL (18.4-80.1)
[2022-10-03 17:07] LABS: VITAMIN B6 10.5 ug/L (3.4-65.2); Vitamin B1, Thiamine 148.3 nmol/L (66.5-200.0)
== END | disposition home or self-care (01) ==
LOC: MFPLAB 15:25
PROVIDERS: PCP Family Medicine; Visit Provider Family Medicine
DX: I48.91 Unspecified atrial fibrillation (principal); E03.9 Hypothyroidism, unspecified; E55.9 Vitamin D deficiency, unspecified; E78.5 Hyperlipidemia, unspecified
CPT/HCPCS: 80053; 80061; 82306; 82607; 83735; 83970; 84100; 84207; 84425; 84439; 84443; 85025

== ENCOUNTER → 2022-12-22 | Outpatient (CLI) | payer MEDICARE, SELFPAY ==
[2017-06-01 08:52] VITALS: BMI 24.1
--- NOTE | 2022-12-22 12:38 | ART_ITS ---
Reason For Study: Decreased pedal pulses Procedure A bilateral lower extremity continuous wave Doppler with analog waveform analysis,segmental pressures,and ankle brachial indexes without exercise. Patient ambulates with cane and elevated BP due to not taking medicine, did not exercise patient. Left Segmental Pressures Left brachial= 196mmHg. Left posterior tibial artery = 174mmHg. Left dorsalis pedis artery = 203mmHg. Left digit = 130 mmHg. The left dorsalis pedis waveforms are triphasic. The left posterior tibial artery waveforms are biphasic. Right Segmental Pressures Right brachial= 184mmHg. Right posterior tibial artery = 168mmHg. Right dorsalis pedis artery = 202mmHg. Right digit = 169 mmHg. The right dorsalis pedis waveforms are triphasic. The right posterior tibial artery waveforms are biphasic. Indices The right ankle brachial index by the dorsalis pedis is 1.03. The right ankle brachial index by the posterior tibial artery is 0.86. The right digital-brachial index is 0.86. The left ankle brachial index by the dorsalis pedis is 1.04. The left ankle brachial index by the posterior tibial artery is 0.89. The left digital-brachial index is 0.66. VL/Lower Ext Art Exam w/o Exercis Interpretation Summary Right JORGE 1.03, normal. TBI and Doppler/PVR waveforms of the right leg normal a t rest. Left JORGE 1.04, normal. Doppler/PVR waveforms of the left leg normal at rest. TB I diminished, pedal/digit disease vs spasm Ordering Physician: Jian Viveros Referring Physician: Jian Viveros Performed By: Claire Galeano RVT
== END | disposition home or self-care (01) ==
LOC: CVS 12:38
PROVIDERS: PCP Family Medicine; Referring Provider Family Medicine; Visit Provider Family Medicine
DX: R09.89 Other specified symptoms and signs involving the circulatory and respiratory systems (principal)
CPT/HCPCS: 93923

== ENCOUNTER → 2023-01-12 | Outpatient (CLI) | payer MEDICARE, SELFPAY ==
[2017-06-01 08:52] VITALS: BMI 24.1
[2023-01-12 15:37] LABS: Absolute Neutrophil Count 5.7 X10^3/uL (2.0-7.7); Basophil# 0.04 X10^3/uL; Basophil% 0.5 % (0-1); Eosinophil# 0.13 X10^3/uL; Eosinophils% 1.7 % (0-5); Hematocrit 37.7 % (37-47); Hemoglobin 12.1 g/dL (12.0-15.0); Lymphocyte % 13.4 % (19-41); Mean Corp Hgb Conc 32.1 g/dL (32-36); Mean Corpuscular Hgb 32.1 pg (27.0-32.0); Monocyte# 0.54 X10^3/uL; Monocyte% 7.2 % (0-10); NRBC Flagged by Analyzer 0 % (0-5); Neutrophil # 5.73 X10^3/uL (2.7-7.7); Neutrophil % 76.9 % (47-70); Platelet Count 247 K/mm3 (150-450); RBC Distribution Width CV 12.4 % (11.6-14.6); RBC Distribution Width SD 45.3 fl (35.1-43.9); Red Blood Count 3.77 M/mm3 (4.2-5.4); White Blood Count 7.5 K/mm3 (4.4-11.0)
[2023-01-12 16:14] LABS: Protein, Urine (Random) 9.7 mg/dL (<11.9); Protein:Creat Ratio 159 mg/g CRE (0-200)
[2023-01-12 16:22] LABS: Vitamin B12 321 pg/mL (211-911); Vitamin D,25 Hydroxy 29.8 ng/mL
[2023-01-12 16:33] LABS: AST(SGOT) 27 U/L (15-37); Alanine Aminotransfer ALT/SGPT 28 U/L (13-56); Albumin, Serum 3.7 g/dL (3.2-5.0); Alkaline Phosphatase 93 U/L (45-117); Anion Gap 2 (5-15); BUN 22 mg/dL (7-18); BUN/Creat Ratio 15.7 RATIO (10-20); Calcium,Total 9.1 mg/dL (8.5-10.1); Chloride 107 mmol/L (98-107); Cholesterol 177 mg/dL (200); EST Glomerular Filtration Rate 38 mL/min (>60); Est Glom Filt Rate - Afr Amer 46 mL/min (>60); Globulin 3.8 g/dL (2.2-4.2); Glucose 79 mg/dL (74-106); High Density Lipoprotein 63 mg/dL; Phosphorus 3.4 mg/dL (2.5-4.9); Protein, Total 7.5 g/dL (6.4-8.2); Sodium Level 134 mmol/L (136-145); T4 Free Direct 1.31 ng/dL (0.76-1.46); Triglycerides 88 mg/dL; Very Low Density Lipoprotein 18 mg/dL (5-40)
== END | disposition home or self-care (01) ==
LOC: MFPLAB 13:42
PROVIDERS: PCP Family Medicine; Visit Provider Family Medicine
DX: E53.9 Vitamin B deficiency, unspecified (principal); I48.91 Unspecified atrial fibrillation; N18.30 Chronic kidney disease, stage 3 unspecified; E03.9 Hypothyroidism, unspecified; I12.9 Hypertensive chronic kidney disease with stage 1 through stage 4 chronic kidney disease, or unspecified chronic kidney disease
CPT/HCPCS: 36415; 80053; 80061; 82306; 82570; 82607; 83735; 83970; 84100; 84156; 84207; 84425; 84439; 84443; 85025

== ENCOUNTER → 2023-04-24 | Outpatient (CLI) | payer MEDICARE, SELFPAY ==
[2017-06-01 08:52] VITALS: BMI 24.1
[2023-04-24 14:31] LABS: Bacteria 0 SEEN /hpf (None Seen); Mucous, Urine 0 SEEN /hpf (<or=2+)
[2023-04-24 17:31] LABS: Color, Urine Yellow (Yellow); Glucose, Dipstick Normal (Normal); Ketone-Dipstick Negative (Negative); Leukocyte Esterase-Dipstick 25 /ul (Negative); Nitrite-Dipstick Positive (Negative); Occult Blood-Urine 10 /ul (Negative); Protein-Dipstick 15 mg/dl (Negative); Urine Bilirubin Dipstick Negative (Negative); Urine Clarity Sl. Cloudy (Clear); Urine Urobilinogen Normal (Normal); Urine pH 6.5 (5.0 - 8.0)
[2023-04-24 17:39] LABS: Absolute Lymphocyte Count 1.05 X10^3/uL (0.83-4.51); Absolute Neutrophil Count 5.5 X10^3/uL (2.0-7.7); Basophil# 0.05 X10^3/uL; Basophil% 0.7 % (0-1); Eosinophil# 0.22 X10^3/uL; Hematocrit 37.3 % (37-47); Hemoglobin 11.8 g/dL (12.0-15.0); Lymphocyte # 1.05 X10^3/ul (0.83-4.51); Lymphocyte % 14.3 % (19-41); Mean Corp Hgb Conc 31.6 g/dL (32-36); Mean Corpuscular Hgb 32.1 pg (27.0-32.0); Mean Corpuscular Volume 101.4 fL (81-99); Mean Platelet Vol. 10.1 fl (6.2-12.0); Monocyte# 0.48 X10^3/uL; Monocyte% 6.5 % (0-10); NRBC Flagged by Analyzer 0 % (0-5); Neutrophil # 5.51 X10^3/uL (2.7-7.7); Platelet Count 215 K/mm3 (150-450); RBC Distribution Width CV 12.6 % (11.6-14.6); RBC Distribution Width SD 47.2 fl (35.1-43.9); Red Blood Count 3.68 M/mm3 (4.2-5.4); White Blood Count 7.4 K/mm3 (4.4-11.0)
[2023-04-24 17:41] LABS: Protein, Urine (Random) 10.9 mg/dL (<11.9); Protein:Creat Ratio 191 mg/g CRE (0-200)
[2023-04-24 17:48] LABS: Red Blood Cells-Urine 0-5 SEEN /hpf (0-5); Squamous Epithelial Cells - UA 0-5 SEEN /hpf (5-10); White Blood Cells 0-5 SEEN /hpf (0-5)
[2023-04-24 17:52] LABS: PTHIN 105.6 pg/mL (18.4-80.1)
[2023-04-24 17:58] LABS: Vitamin B12 316 pg/mL (211-911); Vitamin D,25 Hydroxy 31.2 ng/mL
[2023-04-24 18:07] LABS: ALB/GLOB Ratio 1.1 RATIO (0.9-2.4); AST(SGOT) 30 U/L (15-37); Alanine Aminotransfer ALT/SGPT 29 U/L (13-56); Albumin, Serum 3.6 g/dL (3.2-5.0); Alkaline Phosphatase 82 U/L (45-117); Anion Gap 3 (5-15); BUN 22 mg/dL (7-18); BUN/Creat Ratio 15.6 RATIO (10-20); Calcium,Total 8.9 mg/dL (8.5-10.1); Chloride 108 mmol/L (98-107); Cholesterol 209 mg/dL (200); Creatinine, Serum 1.41 mg/dL (0.55-1.02); EST Glomerular Filtration Rate 38 mL/min (>60); Est Glom Filt Rate - Afr Amer 46 mL/min (>60); Globulin 3.4 g/dL (2.2-4.2); Glucose 135 mg/dL (74-106); High Density Lipoprotein 60 mg/dL; Magnesium 1.8 mg/dL (1.6-2.6); Phosphorus 3.2 mg/dL (2.5-4.9); Potassium 4.2 mmol/L (3.5-5.1); Sodium Level 136 mmol/L (136-145); T4 Free Direct 0.98 ng/dL (0.76-1.46); Triglycerides 132 mg/dL; Very Low Density Lipoprotein 26 mg/dL (5-40)
[2023-05-01 00:06] LABS: Vitamin B1, Thiamine 134.3 nmol/L (66.5-200.0)
== END | disposition home or self-care (01) ==
LOC: MFPLAB 14:27
PROVIDERS: PCP Family Medicine; Visit Provider Family Medicine
DX: E21.3 Hyperparathyroidism, unspecified (principal); N18.30 Chronic kidney disease, stage 3 unspecified; E53.9 Vitamin B deficiency, unspecified; E55.9 Vitamin D deficiency, unspecified; I12.9 Hypertensive chronic kidney disease with stage 1 through stage 4 chronic kidney disease, or unspecified chronic kidney disease; E03.9 Hypothyroidism, unspecified
CPT/HCPCS: 36415; 80053; 80061; 81001; 82306; 82570; 82607; 83735; 83970; 84100; 84156; 84425; 84439; 84443; 85025

== ENCOUNTER → 2023-06-01 | Outpatient (CLI) | payer MEDICARE, SELFPAY ==
[2017-06-01 08:52] VITALS: BMI 24.1
--- NOTE | 2023-06-01 11:42 | RAD_ITS ---
STUDY: X-RAY - THORACIC SPINE REASON FOR EXAM: Female, 87 years old. Back pain. TECHNIQUE: 3 view(s) of the thoracic spine were obtained. COMPARISON: None. FINDINGS: Marked osteopenia. Mild anterior wedging of lower thoracic vertebral bodies, age indeterminate, with slight increased kyphosis. No significant scoliosis. Diffuse intervertebral disc space narrowing with osteophyte formation most marked in the lower thoracic and upper lumbar spine. Postsurgical changes at L2-3 described on the dedicated lumbar spine x-ray study. Cardiomegaly, aortic tortuosity with calcification and dual lead cardiac pacer. RAD/Thoracic Spine 2 Views IMPRESSION: Osteopenia with increased kyphosis and diffuse moderate spondylosis as described. No acute abnormality. Electronically Signed: Del Loja MD at 13:31 EDT ,
--- NOTE | 2023-06-01 11:50 | RAD_ITS ---
STUDY: X-RAY - LUMBAR SPINE REASON FOR EXAM: Female, 87 years old. Back pain. TECHNIQUE: 5 view(s) of the lumbar spine were obtained. COMPARISON: 09/16/2020 FINDINGS: Marked osteopenia with accentuated lordosis. No scoliosis. Normal vertebral alignment. Laminectomy with posterior fusion and intervertebral disc at L2-3, unchanged. Diffuse moderate lower thoracic and lumbosacral facet sclerosis. Diffuse intervertebral disc space narrowing with osteophytes most marked at L1-2, L2-3 and L3-4, relatively unchanged. Marked vascular calcification. RAD/L/S Spine Min 4 Views IMPRESSION: Stable osteopenia, postsurgical changes and diffuse moderate lower thoracic and lumbosacral spondylosis. No acute abnormality or erosive changes. Electronically Signed: Del Loja MD at 13:30 EDT ,
== END | disposition home or self-care (01) ==
LOC: MTRAD 11:40
PROVIDERS: PCP Family Medicine; Referring Provider Family Medicine; Visit Provider Family Medicine
DX: M54.9 Dorsalgia, unspecified (principal); G89.29 Other chronic pain
CPT/HCPCS: 72070; 72110

== ENCOUNTER → 2023-07-05 | Outpatient (CLI) | payer MEDICARE, SELFPAY ==
[2017-06-01 08:52] VITALS: BMI 24.1
[2023-07-05 11:09] LABS: Bacteria 0 SEEN /hpf (None Seen); Mucous, Urine 0 SEEN /hpf (<or=2+); Red Blood Cells-Urine 0 SEEN /hpf (0-5); Squamous Epithelial Cells - UA 0 SEEN /hpf (5-10); White Blood Cells 0 SEEN /hpf (0-5)
[2023-07-05 12:25] LABS: Color, Urine Yellow (Yellow); Glucose, Dipstick Normal (Normal); Ketone-Dipstick Negative (Negative); Leukocyte Esterase-Dipstick 100 /ul (Negative); Nitrite-Dipstick Negative (Negative); Occult Blood-Urine Negative /ul (Negative); Protein-Dipstick Negative (Negative); Urine Bilirubin Dipstick Negative (Negative); Urine Clarity Clear (Clear); Urine Urobilinogen Normal (Normal)
[2023-07-05 12:26] LABS: Absolute Lymphocyte Count 0.97 X10^3/uL (0.83-4.51); Absolute Neutrophil Count 5.2 X10^3/uL (2.0-7.7); Basophil# 0.04 X10^3/uL; Basophil% 0.6 % (0-1); Eosinophil# 0.02 X10^3/uL; Eosinophils% 0.3 % (0-5); Hematocrit 35.4 % (37-47); Hemoglobin 11.6 g/dL (12.0-15.0); Lymphocyte # 0.97 X10^3/ul (0.83-4.51); Lymphocyte % 14.2 % (19-41); Mean Corp Hgb Conc 32.8 g/dL (32-36); Mean Corpuscular Hgb 32.4 pg (27.0-32.0); Mean Corpuscular Volume 98.9 fL (81-99); Mean Platelet Vol. 9.8 fl (6.2-12.0); Monocyte# 0.57 X10^3/uL; Monocyte% 8.3 % (0-10); NRBC Flagged by Analyzer 0 % (0-5); Neutrophil # 5.24 X10^3/uL (2.7-7.7); Neutrophil % 76.5 % (47-70); Platelet Count 239 K/mm3 (150-450); RBC Distribution Width CV 12.8 % (11.6-14.6); RBC Distribution Width SD 46.3 fl (35.1-43.9); Red Blood Count 3.58 M/mm3 (4.2-5.4); White Blood Count 6.9 K/mm3 (4.4-11.0)
[2023-07-05 12:43] LABS: Protein:Creat Ratio 244 mg/g CRE (0-200)
[2023-07-05 12:55] LABS: PTHIN 136.7 pg/mL (18.4-80.1)
[2023-07-05 12:56] LABS: ALB/GLOB Ratio 1.1 RATIO (0.9-2.4); AST(SGOT) 35 U/L (15-37); Alanine Aminotransfer ALT/SGPT 30 U/L (13-56); Albumin, Serum 3.6 g/dL (3.2-5.0); Alkaline Phosphatase 86 U/L (45-117); Anion Gap 6 (5-15); BUN 23 mg/dL (7-18); BUN/Creat Ratio 15.9 RATIO (10-20); Calcium,Total 9.4 mg/dL (8.5-10.1); Chloride 106 mmol/L (98-107); Cholesterol 144 mg/dL (200); Creatinine, Serum 1.45 mg/dL (0.55-1.02); EST Glomerular Filtration Rate 36 mL/min (>60); Est Glom Filt Rate - Afr Amer 44 mL/min (>60); Globulin 3.3 g/dL (2.2-4.2); Glucose 101 mg/dL (74-106); High Density Lipoprotein 60 mg/dL; Magnesium 1.9 mg/dL (1.6-2.6); Phosphorus 3.1 mg/dL (2.5-4.9); Potassium 4.6 mmol/L (3.5-5.1); Protein, Total 6.9 g/dL (6.4-8.2); Sodium Level 138 mmol/L (136-145); T4 Free Direct 1.58 ng/dL (0.76-1.46); Thyroid Stim Hormone (TSH) 1.58 uIU/mL (0.358-3.74); Triglycerides 69 mg/dL; Very Low Density Lipoprotein 14 mg/dL (5-40)
[2023-07-05 13:03] LABS: Vitamin B12 295 pg/mL (211-911); Vitamin D,25 Hydroxy 36.6 ng/mL
[2023-07-08 18:06] LABS: Vitamin B1, Thiamine 115.2 nmol/L (66.5-200.0)
== END | disposition home or self-care (01) ==
LOC: MFPLAB 11:05
PROVIDERS: PCP Family Medicine; Visit Provider Family Medicine
DX: I12.9 Hypertensive chronic kidney disease with stage 1 through stage 4 chronic kidney disease, or unspecified chronic kidney disease (principal); I48.91 Unspecified atrial fibrillation; N18.30 Chronic kidney disease, stage 3 unspecified; E53.9 Vitamin B deficiency, unspecified; E03.9 Hypothyroidism, unspecified
CPT/HCPCS: 36415; 80053; 80061; 81001; 82306; 82570; 82607; 83735; 83970; 84100; 84156; 84425; 84439; 84443; 85025

== ENCOUNTER → 2023-07-13 | Outpatient (CLI) | payer MEDICARE, SELFPAY ==
[2017-06-01 08:52] VITALS: BMI 24.1
--- NOTE | 2023-07-13 12:40 | ECHOD_ITS ---
Reason For Study: ASHD Procedure This was a 2D Doppler, Color Flow transthoracic echocardiogram. Exam performed in department. Left Ventricle Normal LV size. The estimated ejection fraction is 65 %. Diastolic function is indeterminate. No regional wall motion abnormalities noted. Right Ventricle Normal RV size. ICD or pacer leads identified within the right ventricle. Normal systolic function. Atria The left atrium is moderately enlarged. Normal right atrium. ICD or pacer leads identified within the right atrium. No doppler evidence for ASD. Mitral Valve There is no mitral valve stenosis. Mild (1+) mitral valve insufficiency. Tricuspid Valve There is no tricuspid stenosis. Mild tricuspid valve insufficiency. Pulmonary artery systolic pressure is 40 mmHg. Aortic Valve Trisinus/trileaflet aortic valve. There is no aortic stenosis. Trivial aortic valve insufficiency. Pulmonic Valve There is no pulmonic valvular stenosis. No pulmonic valve insufficiency. Great Vessels Normal aortic root. Pericardium/Pleural No pericardial effusion. MMode/2D Measurements & Calculations LVIDd: 4.6 cm IVSd: 1.0 cm Ao root diam: 3.1 cm LVIDs: 3.2 cm LVPWd: 1.3 cm RVDd: 3.2 cm FS: 29.3 % LAV(MOD-bp): 72.6 ml LVAd ap4: 25.6 cm2 SV(MOD-sp4): 55.9 ml LAV(MOD-bp) Indexed: 43.0 ml/m2 LVLd ap4: 7.1 cm LAV(MOD-sp2): 61.8 ml EDV(MOD-sp4): 81.0 ml LAV(MOD-sp4): 73.2 ml EDV(sp4-el): 78.4 ml LVAs ap4: 12.7 cm2 LVLs ap4: 5.6 cm ESV(MOD-sp4): 25.1 ml ESV(sp4-el): 24.3 ml EF(MOD-sp4): 69.1 % EF(sp4-el): 69.1 % SV(sp4-el): 54.2 ml LA A4 area: 24.9 cm2 LA dimension(2D): 4.5 cm RA A4 area: 21.3 cm2 TAPSE: 1.6 cm Time Measurements MV dec time: 0.23 sec Doppler Measurements & Calculations MV E max james: 79.1 cm/sec Lat Peak E' James: 10.3 cm/sec Med Peak E' James: 5.7 cm/sec MV A max james: 61.0 cm/sec E/E' lat: 7.7 E/E' med: 13.8 MV E/A: 1.3 MV V2 max: 87.0 cm/sec Ao V2 max: 142.9 cm/sec MV max P.0 mmHg MV dec slope: 353.2 cm/sec2 Ao max P.2 mmHg MV V2 mean: 54.7 cm/sec Ao V2 mean: 105.4 cm/sec MV mean P.3 mmHg Ao mean P.0 mmHg MV V2 VTI: 28.2 cm Ao V2 VTI: 36.4 cm AV (velocity ratio): 0.86 LV V1 max: 136.5 cm/sec TR max james: 276.0 cm/sec LV V1 max P.5 mmHg TR max P.5 mmHg LV V1 mean P.1 mmHg LV V1 mean: 94.9 cm/sec LV V1 VTI: 31.3 cm ECHO/Echo Complete Interpretation Summary The estimated ejection fraction is 65 %. Diastolic function is indeterminate. The left atrium is moderately enlarged. Mild (1+) mitral valve insufficiency. Trivial aortic valve insufficiency. Ordering Physician: Jin Barnes Referring Physician: Jin Barnes Performed By: Tete Santana RCS
== END | disposition home or self-care (01) ==
LOC: CVS 12:39
PROVIDERS: PCP Family Medicine; Referring Provider Internal Medicine Cardiovascular Disease; Visit Provider Internal Medicine Cardiovascular Disease
DX: I25.10 Atherosclerotic heart disease of native coronary artery without angina pectoris (principal)
CPT/HCPCS: 93306

== ENCOUNTER → 2023-09-24 | Outpatient (CLI) | payer MEDICARE, SELFPAY ==
[2017-06-01 08:52] VITALS: BMI 24.1
--- NOTE | 2023-09-24 11:27 | CT_ITS ---
STUDY: CT BRAIN WITHOUT CONTRAST REASON FOR EXAM: Female, 88 years old. Head trauma. Patient is on anticoagulants. RADIATION DOSAGE (If Supplied By Facility): CTDIvol = ( 44.99 ) mGy, DLP = ( 762.36 ) mGycm TECHNIQUE: Transaxial CT imaging of the brain was performed without administration of intravenous contrast material. Individualized dose optimization techniques were used for this CT. COMPARISON: Comparison is made with prior examination dated November 27, 2021. FINDINGS: Normal soft tissue structures. Normal calvarium. There is mild cerebral atrophy with widening of the extra-axial spaces and ventricular dilatation. There are areas of decreased attenuation within the white matter tracts of the supratentorial brain, consistent with microvascular disease changes. Normal basal ganglia and thalami. Normal brainstem. Normal cerebellum. There is no intracranial hemorrhage. There are no findings of an acute ischemic infarction. Atherosclerotic calcification of the vertebral arteries and cavernous portions of the internal carotid arteries bilaterally. Normal visualized paranasal sinuses. CT/Brain/Head without Contrast IMPRESSION: Chronic involutional changes of the brain. Electronically Signed: Grabiel Gallagher MD at 12:11 EDT ,
== END | disposition home or self-care (01) ==
LOC: CT 11:27
PROVIDERS: PCP Family Medicine; Referring Provider Physician Assistant Medical; Visit Provider Physician Assistant Medical
DX: S09.8XXA Other specified injuries of head, initial encounter (principal); Z79.01 Long term (current) use of anticoagulants
CPT/HCPCS: 70450

== ENCOUNTER → 2023-10-02 | Outpatient (CLI) | payer MEDICARE, SELFPAY ==
[2017-06-01 08:52] VITALS: BMI 24.1
[2023-10-02 11:34] LABS: Mucous, Urine 0 SEEN /hpf (<or=2+); Red Blood Cells-Urine 0 SEEN /hpf (0-5)
[2023-10-02 15:22] LABS: Absolute Lymphocyte Count 0.76 X10^3/uL (0.83-4.51); Absolute Neutrophil Count 5.1 X10^3/uL (2.0-7.7); Basophil# 0.04 X10^3/uL; Basophil% 0.6 % (0-1); Color, Urine Yellow (Yellow); Eosinophil# 0.03 X10^3/uL; Eosinophils% 0.5 % (0-5); Glucose, Dipstick Normal (Normal); Hematocrit 36.8 % (37-47); Hemoglobin 12.1 g/dL (12.0-15.0); Ketone-Dipstick Negative (Negative); Leukocyte Esterase-Dipstick 500 /ul (Negative); Lymphocyte # 0.76 X10^3/ul (0.83-4.51); Lymphocyte % 11.6 % (19-41); Mean Corp Hgb Conc 32.9 g/dL (32-36); Mean Corpuscular Hgb 31.8 pg (27.0-32.0); Mean Corpuscular Volume 96.8 fL (81-99); Mean Platelet Vol. 9.7 fl (6.2-12.0); Monocyte# 0.61 X10^3/uL; Monocyte% 9.3 % (0-10); NRBC Flagged by Analyzer 0 % (0-5); Neutrophil # 5.08 X10^3/uL (2.7-7.7); Neutrophil % 77.7 % (47-70); Nitrite-Dipstick Negative (Negative); Occult Blood-Urine 10 /ul (Negative); Platelet Count 251 K/mm3 (150-450); Protein-Dipstick Negative (Negative); RBC Distribution Width CV 12.5 % (11.6-14.6); RBC Distribution Width SD 44.7 fl (35.1-43.9); Urine Bilirubin Dipstick Negative (Negative); Urine Clarity Clear (Clear); Urine Urobilinogen 1 mg/dl (Normal); White Blood Count 6.5 K/mm3 (4.4-11.0)
[2023-10-02 15:35] LABS: Bacteria 2+ /hpf (None Seen); Squamous Epithelial Cells - UA 0-5 SEEN /hpf (5-10); White Blood Cells 0-5 SEEN /hpf (0-5)
[2023-10-02 16:00] LABS: ALB/GLOB Ratio 0.9 RATIO (0.9-2.4); AST(SGOT) 29 U/L (15-37); Alanine Aminotransfer ALT/SGPT 28 U/L (13-56); Albumin, Serum 3.4 g/dL (3.2-5.0); Alkaline Phosphatase 101 U/L (45-117); Anion Gap 6 (5-15); BUN 18 mg/dL (7-18); BUN/Creat Ratio 13.5 RATIO (10-20); Calcium,Total 9.3 mg/dL (8.5-10.1); Chloride 103 mmol/L (98-107); Cholesterol 133 mg/dL (200); Creatinine, Serum 1.33 mg/dL (0.55-1.02); EST Glomerular Filtration Rate 40 mL/min (>60); Est Glom Filt Rate - Afr Amer 49 mL/min (>60); Globulin 3.9 g/dL (2.2-4.2); Glucose 97 mg/dL (74-106); High Density Lipoprotein 53 mg/dL; Potassium 4.6 mmol/L (3.5-5.1); Protein, Total 7.3 g/dL (6.4-8.2); Sodium Level 135 mmol/L (136-145); Thyroid Stim Hormone (TSH) 0.05 uIU/mL (0.358-3.74); Triglycerides 78 mg/dL; Very Low Density Lipoprotein 16 mg/dL (5-40)
[2023-10-03 09:57] LABS: T4 Free Direct 1.97 ng/dL (0.76-1.46)
== END | disposition home or self-care (01) ==
LOC: MFPLAB 11:31
PROVIDERS: PCP Family Medicine; Visit Provider Family Medicine
DX: E03.9 Hypothyroidism, unspecified (principal)
CPT/HCPCS: 36415; 80053; 80061; 81001; 83735; 84439; 84443; 85025

== ENCOUNTER 2023-10-11 13:06 | Emergency (ER) | payer MEDICARE, SELFPAY ==
[2017-06-01 08:52] VITALS: BMI 24.1
[2023-10-11 13:07] VITALS: BP 152/93; PULSE 60; RESP 17; TEMP 35.7; O2SAT 99; BMI 27.4
--- NOTE | 2023-10-11 13:22 | CT_ITS ---
STUDY: CT ABDOMEN AND PELVIS WITH CONTRAST REASON FOR EXAM: Female, 88 years old. abdominal pain RADIATION DOSAGE (If Supplied By Facility): CTDIvol = ( 20.13 ) mGy, DLP = ( 655.73 ) mGycm TECHNIQUE: Transaxial images were obtained from the dome of the diaphragm to the symphysis pubis without oral contrast. IV 100mL Isovue-[id number] was administered. Sagittal and coronal images were reconstructed. Individualized dose optimization techniques were used for this CT. COMPARISON: Comparison is made with prior study dated December 09, 2014. FINDINGS: Calcified granulomas in both lower lobes. A dual-chamber pacemaker is seen. Mild coronary artery calcifications. Minimal degree of central intrahepatic biliary ductal dilatation. Questionable small gallstones. There are multiple benign calcified granulomata of the spleen. Normal pancreas. Normal bilateral adrenal glands. Normal right kidney. Normal left kidney. There is a small hiatal hernia. Normal small intestine. There are scattered colonic diverticula consistent with diverticulosis. There is non-visualization of the appendix. Normal abdominal aorta. Normal inferior vena cava. Normal retroperitoneum. Normal urinary bladder. Normal abdominal wall. Prior fusion at the L1-L2 level. Mild degenerative changes. CT/Abdomen/Pelvis W IV Cont ONLY IMPRESSION: Minimal degree of central intrahepatic biliary ductal dilatation. Questionable small gallstones. Electronically Signed: Grabiel Gallagher MD at 14:47 EDT ,
--- NOTE | 2023-10-11 13:22 | EKG12_ITS ---
Test Reason : FALL Blood Pressure : / mmHG Vent. Rate : 060 BPM Atrial Rate : 060 BPM P-R Int : 224 ms QRS Dur : 156 ms QT Int : 498 ms P-R-T Axes : 000 -31 077 degrees QTc Int : 498 ms AV dual-paced rhythm with prolonged AV conduction Abnormal ECG Confirmed by KATHRYN ALCALA, ETHAN ([id number]), purchasing expeditor NEFTALI SAUER ([id number]) on 10/16/2023 2:00:23 PM Referred By: Confirmed By:YESSENIA PERALTA MD
--- NOTE | 2023-10-11 13:27 | CT_ITS ---
STUDY: CT BRAIN WITHOUT CONTRAST REASON FOR EXAM: Female, 88 years old. Dizzy RADIATION DOSAGE (If Supplied By Facility): CTDIvol = ( 44.99 ) mGy, DLP = ( 812.98 ) mGycm TECHNIQUE: Transaxial CT imaging of the brain was performed without administration of intravenous contrast material. Individualized dose optimization techniques were used for this CT. COMPARISON: Comparison is made with prior study dated September 24, 2023. FINDINGS: Normal soft tissue structures. Normal calvarium. There is mild cerebral atrophy with widening of the extra-axial spaces and ventricular dilatation. There are areas of decreased attenuation within the white matter tracts of the supratentorial brain, consistent with microvascular disease changes. Normal basal ganglia and thalami. Normal brainstem. Normal cerebellum. There is no intracranial hemorrhage. There are no findings of an acute ischemic infarction. Atherosclerotic calcification of the vertebral arteries and cavernous portions of the internal carotid arteries bilaterally. Normal visualized paranasal sinuses. CT/Brain/Head without Contrast IMPRESSION: Chronic involutional changes of the brain. Electronically Signed: Grabiel Gallagher MD at 14:48 EDT ,
[2023-10-11] MEDS: 0.9% Normal Saline (1000mL) 1,000 ML 999 ML IV (13:33)
[2023-10-11 13:49] LABS: Absolute Lymphocyte Count 0.57 X10^3/uL (0.83-4.51); Absolute Neutrophil Count 5.2 X10^3/uL (2.0-7.7); Basophil# 0.02 X10^3/uL; Basophil% 0.3 % (0-1); Eosinophil# 0.01 X10^3/uL; Eosinophils% 0.2 % (0-5); Hematocrit 34.6 % (37-47); Hemoglobin 11.6 g/dL (12.0-15.0); Lymphocyte # 0.57 X10^3/ul (0.83-4.51); Lymphocyte % 9.2 % (19-41); Mean Corp Hgb Conc 33.5 g/dL (32-36); Mean Corpuscular Hgb 31.1 pg (27.0-32.0); Mean Corpuscular Volume 92.8 fL (81-99); Monocyte# 0.41 X10^3/uL; Monocyte% 6.6 % (0-10); NRBC Flagged by Analyzer 0 % (0-5); Neutrophil # 5.16 X10^3/uL (2.7-7.7); Neutrophil % 83.2 % (47-70); POSITIVE DIFFERENTIAL YES; Platelet Count 250 K/mm3 (150-450); RBC Distribution Width CV 12.3 % (11.6-14.6); RBC Distribution Width SD 42.3 fl (35.1-43.9); Red Blood Count 3.73 M/mm3 (4.2-5.4); White Blood Count 6.2 K/mm3 (4.4-11.0)
--- NOTE | 2023-10-11 13:59 | EX.ED.GENINJ ---
HPI <SHAHEED Ronquillo - Last Filed: 10/11/23 16:16> History of Present Illness Chief Complaint: Fall Narrative Narrative: Patient is an 88-year-old female with history of atrial fibrillation on Eliquis hypertension hyperlipidemia who presents to the emergency department for 1 week of cough, 3 days of worsening weakness, diarrhea, dizziness and mechanical fall today. Patient states over the last 3 days, she has been unable to care for herself. Today whenever she got up she felt dizzy, she describes that the room felt unsteady and she was going to fall down and felt immediately nauseous. She does have history of vertigo is unsure if this is what is happening. However she is also concerned because she has not been eating or drinking. She denies any chest pain. Patient states the diarrhea started today. However over last 3 days she has not had any appetite. Brought in by EMS. [facility] <SHAHEED Ronquillo - Last Filed: 10/11/23 16:16> [facility] Medical History Ambulates with cane Anxiety Arthritis Atherosclerotic heart disease of [place] coronary artery without angina pectoris Atrial fibrillation with rapid ventricular response (01/21/20) Bilateral carotid artery stenosis Bone spur of foot Cardiology follow-up encounter Chronic cough Complete heart block COPD (chronic obstructive pulmonary disease) Depression Diverticulosis Dizziness and giddiness DVT (deep venous thrombosis) Easy bruising Essential (primary) hypertension Excessive bleeding Fatigue Former smoker Ganglion cyst of left foot Gastric reflux GERD (gastroesophageal reflux disease) History of atrial fibrillation History of echocardiogram History of steroid therapy History of ulceration Hyperlipidemia Hypothyroidism Intermittent chest pain Leg cramps [place] sclerosus Nonrheumatic mitral (valve) prolapse NSTEMI (non-ST elevated myocardial infarction) (05/30/17) On home oxygen therapy Osteoarthritis Paroxysmal atrial fibrillation Paroxysmal atrial flutter Post-menopausal Restless legs Right bundle branch block (RBBB) with left anterior fascicular block Right pulmonary embolus (08/17/19) Seasonal allergies Sick sinus syndrome Vertigo Walker as ambulation aid Wears dentures Wears glasses Home Medications ?Medication ?Instructions ?Recorded ?Last Taken ?Type nitroglycerin 0.4 mg sublingual 0.4 mg sublingual Q5-15M PRN chest 08/03/18 Unknown Rx tablet pain #25 tabs albuterol sulfate 2.5 mg/0.5 mL 2.5 mg inhalation Q4H PRN 08/20/20 Unknown History solution for nebulization Shortness Of Breath vit C 250 mg-vit E 90 mg-zinc 40 1 cap PO BID eye health 12/04/21 12/03/21 History mg-copper 1 [id number] capsule (PreserVision AREDS-2) magnesium oxide 400 mg PO DAILY SUPPLEMENT 05/05/22 07/23/22 History lisinopril 20 mg tablet 20 mg PO DAILY BP 07/17/22 07/23/22 History albuterol sulfate 90 mcg/actuation 2 puff inhalation Q4H PRN 06/19/23 Unknown History aerosol inhaler cholecalciferol (vitamin D3) 125 125 mcg PO DAILY 06/19/23 Unknown History mcg (5,000 unit) capsule fluticasone propionate 50 1 spray intranasal DAILY 06/19/23 Unknown History mcg/actuation nasal spray,suspension pravastatin 20 mg tablet 20 mg PO QDAY 06/19/23 Unknown History vitamin B complex 1 tab PO DAILY 06/19/23 Unknown History amiodarone 200 mg tablet 200 mg PO DAILY heart #90 tabs 07/11/23 Unknown Rx apixaban 5 mg tablet 5 mg PO BID blood thinner #180 tabs 07/11/23 Unknown Rx levothyroxine 137 mcg tablet 25 mcg PO QDAY 09/24/23 Unknown History meclizine 25 mg chewable tablet 25 mg PO TID PRN dizziness 5 days 10/11/23 Unknown Rx (Antivert) #20 tabs nitrofurantoin 100 mg PO BID 5 days #10 caps 10/11/23 Unknown Rx monohydrate/macrocrystals 100 mg capsule (Macrobid) Allergy/AdvReac Type Severity Reaction Status Date / Time Penicillins (PCN) Allergy Hives Verified 09/24/23 10:00 aspirin AdvReac Severe Severe GI Verified 09/24/23 10:00 upset atorvastatin AdvReac Severe elevated Verified 09/24/23 10:00 liver enzymes metformin AdvReac gi upset Verified 09/24/23 10:00 Family History Father Cancer lung cancer Heart disease Mother CVA (cerebral vascular accident) Hypertension Sister Hypertension Cancer lung cancer Son Diabetes Hypertension Myocardial infarction, Onset Age: 48 Surgical History H/O bladder repair surgery H/O excision of ganglion cyst History of appendectomy History of back surgery History of cardioversion (04/19/20) History of carpal tunnel release History of coronary artery stent placement (05/31/17) History of hysterectomy History of left heart catheterization (09/10/17) Presence of permanent cardiac pacemaker (04/19/15) Social History Smoking Status: Former smoker alcohol intake: never substance use type: does not use caffeine: Yes Type: coffee Number of servings: 3 what type of physical activity do you participate in: none seatbelt use: always do you feel safe at home: Yes ROS <SHAHEED Ronquillo - Last Filed: 10/11/23 16:16> ROS ED ROS Narrative Constitutional: Negative for fever, chills, weight loss. Positive for weakness Eyes: Negative for vision loss, vision change, double vision ENT: Negative for any sore throat, ear pain, congestion Cardiovascular: Negative for any chest pain, tightness, palpitations Respiratory: Negative for any sputum production, hemoptysis, dyspnea, dyspnea on exertion, orthopnea. Positive for cough Gastrointestinal: Negative for any abdominal pain, vomiting, constipation, blood in stool, blood in vomit. Positive for nausea, vomiting : Negative for any urinary frequency, dysuria, retention, blood in urine Muscle skeletal: Negative for any neck pain, back pain Neurological: Negative for any headache. Positive for near syncope, dizziness Skin: Negative for any rashes, itching, abrasions, lacerations Psychiatric: Negative for any depression, anxiety, stress, suicidal ideation, homicidal ideation Hematologic: Negative for any excessive bruising, easy bleeding EXAM <SHAHEED Ronquillo - Last Filed: 10/11/23 16:16> Physical Exam Narrative Exam Narrative: Vital signs reviewed. HEET: Head normocephalic atraumatic, TMs clear bilaterally. Posterior pharynx is clear, dry mucous membranes. Nares clear bilaterally. Neck: Supple with no lymphadenopathy or tenderness. No signs of meningismus. Cardiac: Regular rate and rhythm no murmurs gallops or rubs, equal peripheral pulses bilaterally. Respiratory: Lungs clear to auscultation bilaterally. No chest tenderness. Abdomen: Soft, nondistended. No abdominal bruit or pulsatile masses. No hepatosplenomegaly. Patient did have tenderness to the mid abdomen on evaluation. She did jump off the bed. Extremities: No peripheral edema, no signs of gross trauma or deformity. Active full range of motion of all extremities. Neuro: Cranial nerves II through XII intact, no focal neurological deficits. Skin: Clean dry and intact with no rash, purpura, petechiae, vesicles or pustules. Backs/flank: No CVA tenderness, no midline spinal tenderness, no deformity. Psych: Normal mood and affect. No SI, HI or acute psychosis. Const Vital Signs: 10/11/23 13:07 10/11/23 15:06 10/11/23 15:23 Temperature 96.2 F L Temperature Source Tympanic Pulse Rate 60 66 Respiratory Rate 17 16 Respiratory Effort Normal Respiratory Depth Normal Respiratory Pattern Normal Blood Pressure 152/93 H 175/70 H Blood Pressure Mean 112 105 Pulse Ox 99 95 Oxygen Delivery Method Room Air Room Air 10/11/23 16:29 Temperature 97.3 F L Temperature Source Pulse Rate 67 Respiratory Rate 16 Respiratory Effort Respiratory Depth Respiratory Pattern Blood Pressure 189/79 H Blood Pressure Mean 115 Pulse Ox 99 Oxygen Delivery Method <Dr. Leonard Don MD - Last Filed: 10/11/23 23:44> Physical Exam Const Vital Signs: 10/11/23 13:07 10/11/23 15:06 10/11/23 15:23 Temperature 96.2 F L Temperature Source Tympanic Pulse Rate 60 66 Respiratory Rate 17 16 Respiratory Effort Normal Respiratory Depth Normal Respiratory Pattern Normal Blood Pressure 152/93 H 175/70 H Blood Pressure Mean 112 105 Pulse Ox 99 95 Oxygen Delivery Method Room Air Room Air 10/11/23 16:29 Temperature 97.3 F L Temperature Source Pulse Rate 67 Respiratory Rate 16 Respiratory Effort Respiratory Depth Respiratory Pattern Blood Pressure 189/79 H Blood Pressure Mean 115 Pulse Ox 99 Oxygen Delivery Method MDM <SHAHEED Ronquillo - Last Filed: 10/11/23 16:16> [facility] Lab Data Labs: Laboratory Results - last 24 hr 10/11/23 10/11/23 13:39 14:45 WBC 6.2 RBC 3.73 L Hgb 11.6 L Hct 34.6 L MCV 92.8 MCH 31.1 MCHC 33.5 RDW Std Deviation 42.3 RDW Coeff of [place] 12.3 Plt Count 250 MPV 9.0 Immature Gran % (Auto) 0.500 Neut % (Auto) 83.2 H Lymph % (Auto) 9.2 L [place] % (Auto) 6.6 Eos % (Auto) 0.2 Baso % (Auto) 0.3 Absolute Neuts (auto) 5.2 Absolute Lymphs (auto) 0.57 L Nucleated RBC % 0 Sodium 131 L Potassium 4.5 Chloride 102 Carbon Dioxide 23.0 Anion Gap 6 BUN 13 Creatinine 1.22 H Estim Creat Clear Calc 27.60 Est GFR (MDRD) Af Amer 54 L Est GFR (MDRD) Non-Af 44 L BUN/Creatinine Ratio 10.7 Glucose 112 H Calcium 8.9 Total Bilirubin 0.60 AST 53 H ALT 37 Alkaline Phosphatase 111 Troponin I High Sens 7 Total Protein 7.1 Albumin 3.2 Globulin 3.9 Albumin/Globulin Ratio 0.8 L Lipase 45 Urine Color Yellow Urine Clarity Sl. Cloudy Urine pH 7.0 Ur Specific [place] 1.005 Urine Protein 15 H Urine Glucose (UA) Normal Urine Ketones Negative Urine Occult Blood Negative Urine Nitrite Positive H Urine Bilirubin Negative Urine Urobilinogen Normal Ur Leukocyte Esterase 500 H Urine RBC 0 SEEN Urine WBC 10-25 SEEN Ur Squamous Epith Cells 5-10 SEEN Urine Bacteria 2+ Urine Mucus 0 SEEN Radiography Diagnostic Testing: Clinical Impression(s) from Imaging Studies Abdomen/Pelvis CT 10/11/23 13:22 IMPRESSION: Minimal degree of central intrahepatic biliary ductal dilatation. Questionable small gallstones. Electronically Signed: Grabiel Gallagher MD at 14:47 EDT , Brain CT 10/11/23 13:27 IMPRESSION: Chronic involutional changes of the brain. Electronically Signed: Grabiel Gallagher MD at 14:48 EDT , Chest X-Ray 10/11/23 15:00 IMPRESSION: Scattered calcified granulomas. No acute abnormality is seen. Electronically Signed: Grabiel Gallagher MD at 15:24 EDT , EKG AV dual paced rhythm: Attestation: I personally reviewed and interpreted this EKG as follows: Comments: Paced rhythm, rate of 60 bpm, [place] interval 224 ms, QRS duration 156 ms, no acute ST elevation, no acute infarct noted. Treatment and Re-Evaluation Narrative: Differential diagnosis includes however is not limited to: Diverticulitis, bowel obstruction, pneumoperitoneum, electrolyte abnormality, benign positional vertigo, ACS, NM Patient is in no obvious respiratory distress vital signs are stable, nontoxic-appearing. Presenting the emergency department for dizziness, abdominal pain, weakness over the last 3 days, cough for 1 week. Patient will receive a significant workup, CT scan of the brain, CT scan of the abdomen pelvis will be ordered. All radiologic examinations were read, reviewed by the emergency department attending. From these reads, a plan of care will be put in place. IV fluids, Zofran will be given, patient will be reevaluated. Laboratory values such as troponin, EKG to rule out any ACS or NM. Patient will also receive CBC CMP lipase. Patient CT scan of the brain shows chronic involutional changes of the brain. CT scan of the abdomen pelvis shows minimal degree of central intrahepatic biliary ductal dilatation, some gallstones however no acute process. Chest x-ray shows no acute process. Patient's laboratory values showed a chronic anemia with hemoglobin 11.6, patient's chemistries show a creatinine of 1.2 however this is baseline, patient's AST is slight elevated 53 lipase is negative. Troponin was 7. Urinalysis was positive for infection with 2+ bacteria 10-25 white blood cells, 5 and leukocytes, positive nitrites. This we sent for culture. Started on Macrobid. This could be related to the patient's weakness. After IV fluids, patient was get up, ambulate, patient felt much better. She did request some more Antivert secondary to chronic vertigo. Patient was given strict return precautions return here for any worsening weakness, fever chills nausea vomiting. Stable for discharge. <Dr. Leonard Don MD - Last Filed: 10/11/23 23:44> MDM MDM Narrative Medical decision making narrative: I have personally performed a face to face assessment of the patient and have reviewed the SILVER Note. I performed a substantive portion of the visit including all aspects of the following. My morel findings include: History is patient with multiple complaints. She is having some mild upper abdominal discomfort, episodic vertigo triggered by changing positions or getting up/moving, some nausea with that, occasional headache, some coughing, urinary frequency that is new, chronic pain in her back she cannot tell if this is worse or not, occasional visual disturbance that she cannot tell if is related to any of this. She denies focal peripheral neurologic symptoms or confusion. Exam is no nystagmus or peripheral neurologic deficits. No CVA tenderness. Mild epigastric tenderness no guarding or rebound negative Luo. Lungs are clear to auscultation her heart is regular. She is mentating normally. Medical Decison Making CT of the head images reviewed as well as the report which I agree with, it is negative for anything acute. Abdominal CT images I reviewed and agree with the report, it may show some gallstones but she has a normal white blood count and normal liver enzymes I do not think we need to work her up emergently for acute cholecystitis because I do not think she has that at this time. Her urine does appear to be infected. We treated her with some IV fluids and Zofran she was feeling better enough to get around and move, we offered admission she declines and feels okay to go home working to treat her urinary infection, hopefully this will help some of her symptoms in her abdomen/back as well as urinary frequency, I think the vertigo is a separate problem that sounds more acute on chronic, and more likely to be peripheral. She is comfortable following up. Other additions or changes: [None] Lab Data Labs: Laboratory Results - last 24 hr 10/11/23 10/11/23 13:39 14:45 WBC 6.2 RBC 3.73 L Hgb 11.6 L Hct 34.6 L MCV 92.8 MCH 31.1 MCHC 33.5 RDW Std Deviation 42.3 RDW Coeff of [place] 12.3 Plt Count 250 MPV 9.0 Immature Gran % (Auto) 0.500 Neut % (Auto) 83.2 H Lymph % (Auto) 9.2 L [place] % (Auto) 6.6 Eos % (Auto) 0.2 Baso % (Auto) 0.3 Absolute Neuts (auto) 5.2 Absolute Lymphs (auto) 0.57 L Nucleated RBC % 0 Sodium 131 L Potassium 4.5 Chloride 102 Carbon Dioxide 23.0 Anion Gap 6 BUN 13 Creatinine 1.22 H Estim Creat Clear Calc 27.60 Est GFR (MDRD) Af Amer 54 L Est GFR (MDRD) Non-Af 44 L BUN/Creatinine Ratio 10.7 Glucose 112 H Calcium 8.9 Total Bilirubin 0.60 AST 53 H ALT 37 Alkaline Phosphatase 111 Troponin I High Sens 7 Total Protein 7.1 Albumin 3.2 Globulin 3.9 Albumin/Globulin Ratio 0.8 L Lipase 45 Urine Color Yellow Urine Clarity Sl. Cloudy Urine pH 7.0 Ur Specific [place] 1.005 Urine Protein 15 H Urine Glucose (UA) Normal Urine Ketones Negative Urine Occult Blood Negative Urine Nitrite Positive H Urine Bilirubin Negative Urine Urobilinogen Normal Ur Leukocyte Esterase 500 H Urine RBC 0 SEEN Urine WBC 10-25 SEEN Ur Squamous Epith Cells 5-10 SEEN Urine Bacteria 2+ Urine Mucus 0 SEEN Radiography Diagnostic Testing: Clinical Impression(s) from Imaging Studies Abdomen/Pelvis CT 10/11/23 13:22 IMPRESSION: Minimal degree of central intrahepatic biliary ductal dilatation. Questionable small gallstones. Electronically Signed: Graibel Gallagher MD at 14:47 EDT , Brain CT 10/11/23 13:27 IMPRESSION: Chronic involutional changes of the brain. Electronically Signed: Grabiel Gallagher MD at 14:48 EDT , Chest X-Ray 10/11/23 15:00 IMPRESSION: Scattered calcified granulomas. No acute abnormality is seen. Electronically Signed: Grabiel Gallagher MD at 15:24 EDT , Discharge Plan Triage Chief Complaint: Fall ED Midlevel Provider: Benjie Green ED Provider: Leonard Don Dx/Rx/DC Orders Clinical Impression: Acute UTI, Vertigo, Weakness, Multiple somatic complaints Instructions: Urinary Tract Infections in Women, ED Vertigo, Unspecified, ED Weakness (Uncertain Cause) Prescriptions: New nitrofurantoin monohyd/m-cryst [Macrobid] 100 mg capsule 100 mg PO BID 5 Days Qty: 10 0RF Rx Instructions: must administer with a meal/food meclizine [Antivert] 25 mg tablet,chewable 25 mg PO TID PRN (Reason: dizziness) 5 Days Qty: 20 0RF No Action albuterol sulfate 2.5 mg/0.5 mL solution for nebulization 2.5 mg inhalation Q4H PRN (Reason: Shortness Of Breath) magnesium oxide 400 mg magnesium capsule 400 mg PO DAILY vitamin B complex Tablet 1 tab PO DAILY pravastatin 20 mg tablet 20 mg PO QDAY albuterol sulfate 90 mcg/actuation HFA aerosol inhaler 2 puff inhalation Q4H PRN fluticasone propionate 50 mcg/actuation spray,suspension 1 spray intranasal DAILY cholecalciferol (vitamin D3) 125 mcg (5,000 unit) capsule 125 mcg PO DAILY levothyroxine 137 mcg tablet 25 mcg PO QDAY PreserVision AREDS-2 250-90-40-1 mg Capsule 1 cap PO BID lisinopril 20 mg tablet 20 mg PO DAILY nitroglycerin 0.4 mg tablet, sublingual 0.4 mg SUBLINGUAL Q5-15M PRN (Reason: chest pain) Qty: 25 3RF Rx Instructions: until response; do not exceed 3 doses per episode apixaban 5 mg tablet 5 mg PO BID Qty: 180 3RF amiodarone 200 mg tablet 200 mg PO DAILY Qty: 90 3RF Primary Care Provider: Jian Viveros Referrals: Jian Viveros MD [Primary Care Provider] - Activity Restrictions/Additional Instructions: Increase your hydration. You seem to have a UTI, urine culture was sent. You are given Macrobid twice a day for 5 days. Take the entire dose. Antivert as needed. Print Language: [place] Disposition Disposition: Home, Self Care Discharge Date/Time: 10/11/23 16:39
[2023-10-11 14:13] LABS: ALB/GLOB Ratio 0.8 RATIO (0.9-2.4); AST(SGOT) 53 U/L (15-37); Alanine Aminotransfer ALT/SGPT 37 U/L (13-56); Albumin, Serum 3.2 g/dL (3.2-5.0); Alkaline Phosphatase 111 U/L (45-117); Anion Gap 6 (5-15); BUN 13 mg/dL (7-18); BUN/Creat Ratio 10.7 RATIO (10-20); Calcium,Total 8.9 mg/dL (8.5-10.1); Chloride 102 mmol/L (98-107); Creatinine, Serum 1.22 mg/dL (0.55-1.02); EST Glomerular Filtration Rate 44 mL/min (>60); Est Glom Filt Rate - Afr Amer 54 mL/min (>60); Globulin 3.9 g/dL (2.2-4.2); Glucose 112 mg/dL (74-106); Lipase 45 U/L (13-75); Potassium 4.5 mmol/L (3.5-5.1); Protein, Total 7.1 g/dL (6.4-8.2); Sodium Level 131 mmol/L (136-145); Troponin-I HS 7 pg/mL (3.0-54.0)
[2023-10-11 14:53] LABS: Color, Urine Yellow (Yellow); Glucose, Dipstick Normal (Normal); Ketone-Dipstick Negative (Negative); Leukocyte Esterase-Dipstick 500 /ul (Negative); Mucous, Urine 0 SEEN /hpf (<or=2+); Nitrite-Dipstick Positive (Negative); Occult Blood-Urine Negative /ul (Negative); Protein-Dipstick 15 mg/dl (Negative); Red Blood Cells-Urine 0 SEEN /hpf (0-5); Specific Gravity, Urine 1.005 (1.002-1.030); Urine Bilirubin Dipstick Negative (Negative); Urine Clarity Sl. Cloudy (Clear); Urine Urobilinogen Normal (Normal)
--- NOTE | 2023-10-11 15:00 | RAD_ITS ---
STUDY: X-RAY CHEST REASON FOR EXAM: Female, 88 years old. Cough TECHNIQUE: PA and lateral views of the chest. COMPARISON: Comparison is made with prior studies May 06, 2021. FINDINGS: EKG electrodes are seen. Hyperinflation. Scattered bilateral calcified granulomas. There is no demonstrated pleural abnormality. Normal size heart. Normal mediastinum and nida. Normal visualized pulmonary arteries. Normal visualized aortic arch and descending thoracic aorta. Normal visualized thoracic spine. Normal visualized ribs, clavicles, and shoulders. There is no demonstrated abnormality of the visualized soft tissue structures of the upper abdomen. RAD/Chest PA and Lateral IMPRESSION: Scattered calcified granulomas. No acute abnormality is seen. Electronically Signed: Grabiel Gallagher MD at 15:24 EDT ,
[2023-10-11 15:06] VITALS: BP 175/70; PULSE 66; RESP 16; O2SAT 95
[2023-10-11 15:33] LABS: Bacteria 2+ /hpf (None Seen); Squamous Epithelial Cells - UA 5-10 SEEN /hpf (5-10); White Blood Cells 10-25 SEEN /hpf (0-5)
[2023-10-11] MEDS: Nitrofurantoin Macrocrystals 100 MG Capsule PO (16:26)
[2023-10-11 16:29] VITALS: BP 189/79; PULSE 67; RESP 16; TEMP 36.3; O2SAT 99
== END 2023-10-11 16:39 | disposition home or self-care (01) ==
PROVIDERS: Nurse Practitioner; Emergency Provider Emergency Medicine; PCP Family Medicine; Visit Provider Emergency Medicine
DX: N39.0 Urinary tract infection, site not specified (principal); J44.9 Chronic obstructive pulmonary disease, unspecified; I48.0 Paroxysmal atrial fibrillation; R53.1 Weakness; I25.10 Atherosclerotic heart disease of native coronary artery without angina pectoris; G89.29 Other chronic pain; I10 Essential (primary) hypertension; E78.5 Hyperlipidemia, unspecified; R42 Dizziness and giddiness; Z87.891 Personal history of nicotine dependence; Z95.0 Presence of cardiac pacemaker; Z90.710 Acquired absence of both cervix and uterus; Z95.5 Presence of coronary angioplasty implant and graft; Z82.49 Family history of ischemic heart disease and other diseases of the circulatory system; I25.2 Old myocardial infarction; E03.9 Hypothyroidism, unspecified; Z79.01 Long term (current) use of anticoagulants; W19.XXXA Unspecified fall, initial encounter; Z86.718 Personal history of other venous thrombosis and embolism
CPT/HCPCS: 70450; 71046; 74177; 80053; 81001; 83690; 84484; 85025; 87086; 87088; 87186; 87631; 93005; 96361; 96374; 99283; J7030; Q9967

== ENCOUNTER → 2023-10-25 | Outpatient (CLI) | payer MEDICARE, SELFPAY ==
[2017-06-01 08:52] VITALS: BMI 24.1
[2023-10-25 18:06] LABS: Absolute Neutrophil Count 6.4 X10^3/uL (2.0-7.7); Basophil# 0.06 X10^3/uL; Basophil% 0.7 % (0-1); Eosinophil# 0.57 X10^3/uL; Eosinophils% 6.4 % (0-5); Hemoglobin 12.3 g/dL (12.0-15.0); Lymphocyte % 13.6 % (19-41); Mean Corp Hgb Conc 33.2 g/dL (32-36); Mean Corpuscular Hgb 32.1 pg (27.0-32.0); Mean Corpuscular Volume 96.6 fL (81-99); Mean Platelet Vol. 9.3 fl (6.2-12.0); Monocyte# 0.55 X10^3/uL; Monocyte% 6.2 % (0-10); NRBC Flagged by Analyzer 0 % (0-5); Neutrophil # 6.42 X10^3/uL (2.7-7.7); Neutrophil % 72.6 % (47-70); Platelet Count 269 K/mm3 (150-450); RBC Distribution Width CV 12.5 % (11.6-14.6); RBC Distribution Width SD 44.2 fl (35.1-43.9); Red Blood Count 3.83 M/mm3 (4.2-5.4); White Blood Count 8.8 K/mm3 (4.4-11.0)
[2023-10-25 18:15] LABS: Erythrocyte Sedimentation Rate 10 mm/hr (0-30)
[2023-10-25 18:16] LABS: AST(SGOT) 64 U/L (15-37); Alanine Aminotransfer ALT/SGPT 66 U/L (13-56); Albumin, Serum 3.4 g/dL (3.2-5.0); Alkaline Phosphatase 101 U/L (45-117); Anion Gap 4 (5-15); BUN 18 mg/dL (7-18); BUN/Creat Ratio 14.3 RATIO (10-20); CRP 6.26 mg/L (0.0-3.0); Calcium,Total 9.2 mg/dL (8.5-10.1); Chloride 101 mmol/L (98-107); Creatinine, Serum 1.26 mg/dL (0.55-1.02); EST Glomerular Filtration Rate 43 mL/min (>60); Est Glom Filt Rate - Afr Amer 52 mL/min (>60); Globulin 3.5 g/dL (2.2-4.2); Glucose 102 mg/dL (74-106); Potassium 4.6 mmol/L (3.5-5.1); Protein, Total 6.9 g/dL (6.4-8.2); Sodium Level 132 mmol/L (136-145)
== END | disposition home or self-care (01) ==
LOC: MFPLAB 15:22
PROVIDERS: PCP Family Medicine; Visit Provider Family Medicine
DX: R35.0 Frequency of micturition (principal); J32.9 Chronic sinusitis, unspecified
CPT/HCPCS: 36415; 80053; 85025; 85652; 86140; 87086

== ENCOUNTER → 2024-03-04 | Outpatient (CLI) | payer MEDICARE, SELFPAY ==
[2017-06-01 08:52] VITALS: BMI 24.1
--- NOTE | 2024-03-04 17:14 | RAD_ITS ---
INDICATION: pain EXAMINATION/TECHNIQUE: X-RAY - XR Spine Cervical 2 or 3 Views COMPARISON: None. FINDINGS: VERTEBRAE: Vertebral body height is maintained. There is mild leftward convex curvature which can be due to positioning versus spasm. No fractures noted. No destructive bony process. The odontoid process and prevertebral soft tissue planes have normal appearance. DISCS: Only mild disc space narrowing most notable at C5-6 and marginal osteophyte formation. Multilevel facet hypertrophic changes from C3 through C6. NECK SOFT TISSUES: No prevertebral soft tissue widening. Surgical clips are present in the LEFT neck. LUNG APICES: Clear. RAD/Cerv Spine 2 or 3 Views IMPRESSION: 1. Mild leftward convex curvature, sequelae of muscular spasm versus positioning. 2. No evidence however of fracture or malalignment. 3. Multilevel cervical spondylosis.. Electronically Signed: Yonis Rogers MD at 18:30 EST ,
== END | disposition home or self-care (01) ==
LOC: MTRAD 17:14
PROVIDERS: PCP Family Medicine; Referring Provider Family Medicine; Visit Provider Family Medicine
DX: M54.2 Cervicalgia (principal)
CPT/HCPCS: 72040

== ENCOUNTER → 2024-05-29 | Outpatient (CLI) | payer MEDICARE, SELFPAY ==
[2017-06-01 08:52] VITALS: BMI 24.1
[2024-05-29 17:39] LABS: Absolute Lymphocyte Count 0.99 X10^3/uL (0.83-4.51); Absolute Neutrophil Count 6.2 X10^3/uL (2.0-7.7); Basophil# 0.05 X10^3/uL; Basophil% 0.6 % (0-1); Eosinophil# 0.09 X10^3/uL; Eosinophils% 1.1 % (0-5); Hematocrit 35.2 % (37-47); Hemoglobin 11.8 g/dL (12.0-15.0); Lymphocyte # 0.99 X10^3/ul (0.83-4.51); Lymphocyte % 12.5 % (19-41); Mean Corp Hgb Conc 33.5 g/dL (32-36); Mean Corpuscular Volume 98.3 fL (81-99); Mean Platelet Vol. 9.9 fl (6.2-12.0); Monocyte# 0.59 X10^3/uL; Monocyte% 7.4 % (0-10); NRBC Flagged by Analyzer 0 % (0-5); Neutrophil # 6.18 X10^3/uL (2.7-7.7); Neutrophil % 78.1 % (47-70); Platelet Count 251 K/mm3 (150-450); RBC Distribution Width CV 12.7 % (11.6-14.6); RBC Distribution Width SD 45.7 fl (35.1-43.9); Red Blood Count 3.58 M/mm3 (4.2-5.4); White Blood Count 7.9 K/mm3 (4.4-11.0)
[2024-05-29 20:11] LABS: PTHIN 93 pg/mL (11-61)
[2024-05-29 21:33] LABS: ALB/GLOB Ratio 1.4 RATIO (0.9-2.4); AST(SGOT) 36 U/L (<=31); Alanine Aminotransfer ALT/SGPT 29 U/L (<=34); Albumin, Serum 4.1 g/dL (3.4-4.8); Alkaline Phosphatase 96 U/L (35-104); Anion Gap 13 (5-15); BUN 21 mg/dL (4-19); BUN/Creat Ratio 15.1 RATIO (10-20); Calcium,Total 9.3 mg/dL (7.6-11.0); Carbon Dioxide 21.5 mmol/L (21.0-32.0); Chloride 101 mmol/L (98-108); Creatinine, Serum 1.42 mg/dL (0.70-1.20); EST Glomerular Filtration Rate 36 (>60); Globulin 2.9 g/dL (2.2-4.2); Glucose 93 mg/dL (70-99); Potassium 4.7 mmol/L (3.3-5.1); Sodium Level 135 mmol/L (133-145); Vitamin B12 270 pg/mL (180-914); Vitamin D,25 Hydroxy 29.9 ng/mL (30-100)
[2024-05-29 21:47] LABS: Cholesterol 221 mg/dL (<=200); High Density Lipoprotein 69 mg/dL; Low Density Lipoprotein Calc. 135 mg/dL; Triglycerides 87 mg/dL; Very Low Density Lipoprotein 17 mg/dL (5-40)
[2024-06-05 11:08] LABS: VITAMIN B6 77.3 ug/L (3.4-65.2); Vitamin B1, Thiamine 104.8 nmol/L (66.5-200.0)
== END | disposition home or self-care (01) ==
LOC: MFPLAB 14:13
PROVIDERS: PCP Family Medicine; Referring Provider Family Medicine; Visit Provider Family Medicine
DX: I10 Essential (primary) hypertension (principal); I48.91 Unspecified atrial fibrillation; E03.9 Hypothyroidism, unspecified; E21.3 Hyperparathyroidism, unspecified; E55.9 Vitamin D deficiency, unspecified
CPT/HCPCS: 36415; 80053; 80061; 82306; 82607; 83735; 83970; 84207; 84425; 84439; 84443; 85025

== ENCOUNTER 2024-08-08 07:25 | Day surgery (SDC) | payer MEDICARE, SELFPAY ==
[2017-06-01 08:52] VITALS: BMI 24.1
--- NOTE | 2024-07-29 14:25 | RAD_ITS ---
PROCEDURE: CHEST PA AND LATERAL 07/29/2024 REASON FOR EXAM: FOR PPM GENERATOR CHANGE TECHNIQUE: Frontal and lateral views of the chest. COMPARISON: October 11, 2023 FINDINGS: There is a right-sided cardiac device with wires in position. Heart size is within normal limits. Central vascularity is normal. Stable calcified granulomas are noted in the right and left. There is no acute infiltrate or consolidation. Aortic calcifications are visible. Hardware is partly visible in the lumbar region. RAD/Chest PA and Lateral IMPRESSION: No acute process is identified in the chest. Reading Location: [facility]
[2024-07-29 15:02] LABS: Mucous, Urine 0 SEEN /hpf (<or=2+)
[2024-07-29 15:18] LABS: International Normalized Ratio 1.3; Prothrombin Time (Protime)PT. 16.7 SECONDS (11.7-14.9)
[2024-07-29 15:19] LABS: Hemoglobin 12.3 g/dL (12.0-15.0); Mean Corp Hgb Conc 33.2 g/dL (32-36); Mean Corpuscular Hgb 32.5 pg (27.0-32.0); Mean Corpuscular Volume 97.6 fL (81-99); Mean Platelet Vol. 9.7 fl (6.2-12.0); Platelet Count 260 K/mm3 (150-450); RBC Distribution Width CV 12.3 % (11.6-14.6); RBC Distribution Width SD 44.9 fl (35.1-43.9); Red Blood Count 3.79 M/mm3 (4.2-5.4); White Blood Count 9.6 K/mm3 (4.4-11.0)
[2024-07-29 15:44] LABS: Anion Gap 11 (5-15); BUN 27 mg/dL (4-19); BUN/Creat Ratio 19.4 RATIO (10-20); Calcium,Total 9.8 mg/dL (7.6-11.0); Carbon Dioxide 22.6 mmol/L (21.0-32.0); Chloride 102 mmol/L (98-108); Creatinine, Serum 1.38 mg/dL (0.70-1.20); EST Glomerular Filtration Rate 37 (>60); Glucose 107 mg/dL (70-99); Potassium 4.7 mmol/L (3.3-5.1); Sodium Level 136 mmol/L (133-145)
[2024-07-29 16:09] LABS: Color, Urine Straw (Yellow); Glucose, Dipstick Normal (Normal); Ketone-Dipstick Negative (Negative); Leukocyte Esterase-Dipstick Negative /ul (Negative); Nitrite-Dipstick Negative (Negative); Occult Blood-Urine Negative /ul (Negative); Protein-Dipstick 15 mg/dl (Negative); Urine Bilirubin Dipstick Negative (Negative); Urine Clarity Clear (Clear); Urine Urobilinogen Normal (Normal); Urine pH 6.5 (5.0 - 8.0)
[2024-07-29 18:45] LABS: Squamous Epithelial Cells - UA 0-5 SEEN /hpf (5-10)
[2024-07-29 18:46] LABS: Bacteria RARE /hpf (None Seen); Red Blood Cells-Urine 0-5 SEEN /hpf (0-5); White Blood Cells 0-5 SEEN /hpf (0-5)
[2024-08-07 08:12] VITALS: BMI 27.3
--- NOTE | 2024-08-08 09:57 | CL.IE_ITS ---
Patient: MICK CHINCHILLA Study Date: 08/08/2024 Performing: Pako Abbasi MD : [id number] Age: 89 Gender: female PROCEDURES PERFORMED [id number])BATTERY REMOVAL+REPLACEMENT PACER-DUAL LEAD INDICATIONS Atrioventricular (AV) block PROCEDURE DETAILS The patient was brought to the Catheterization Lab in the postabsorptive nonsedated state. Informed consent was obtained prior to the procedure. Local anesthetic was given subcutaneously to the right subclavian region with Lidocaine 2%. Incision was made to the right subclavicular area. PPM generator was attached to the lead(s) and inserted into the pocket. PPM generator was then interrogated by the perl programmer. Device pocket was irrigated with antibiotic. The PPM generator was sutured in place with 3-0 Vicryl. Local anesthetic was given subcutaneously to the right subclavian region with Lidocaine 2%. Subcutaneous closure was completed with 3-0 Vicryl. Skin closure was completed with 4-0 Vicryl. The patient tolerated the procedure well. Estimated Blood Loss: 15 ml's IMPLANTED / EX-PLANTED DEVICES EXPLANTED DEVICE(S): PPM Generator - Install And Repair Technician: [employer], Model # [id number] , Serial # [id number] IMPLANTED DEVICE(S): PPM Generator - Install And Repair Technician: [employer], Model # ASSURITY MRI , Serial # [id number] DEVICE PARAMETERS DEVICE PARAMETERS: Mode- DDDR Lower rate- 60 Upper rate- 120 CONCLUSIONS / RECOMMENDATIONS Device Conclusions: Successful implantation of a dual chamber pacemaker battery change and replacement Device Recommendations: Follow up with Primary Care Physician PROCEDURE MEDICATIONS Fentanyl 50 mcg IV Versed 1 mg IV Oxygen: 2 L/min via nasal cannula Antibiotic given in appropriate timeframe. Clindamycin 900 mg IV 08/08/2024 08:58:00 Signed By Pako Abbasi MD On 08/08/2024 09:56:51 Pako Abbasi MD
== END 2024-08-08 10:59 | disposition home or self-care (01) ==
PROVIDERS: Internal Medicine Cardiovascular Disease; PCP Family Medicine; Referring Provider Internal Medicine Cardiovascular Disease; Visit Provider Internal Medicine Cardiovascular Disease
DX: Z45.010 Encounter for checking and testing of cardiac pacemaker pulse generator [battery] (principal); J44.9 Chronic obstructive pulmonary disease, unspecified; I48.0 Paroxysmal atrial fibrillation; I44.30 Unspecified atrioventricular block; I25.10 Atherosclerotic heart disease of native coronary artery without angina pectoris; Z95.5 Presence of coronary angioplasty implant and graft; E78.5 Hyperlipidemia, unspecified; I10 Essential (primary) hypertension; Z79.01 Long term (current) use of anticoagulants; Z79.899 Other long term (current) drug therapy; I65.23 Occlusion and stenosis of bilateral carotid arteries; K21.9 Gastro-esophageal reflux disease without esophagitis; Z87.891 Personal history of nicotine dependence
CPT/HCPCS: 33228; 36415; 71046; 80048; 81001; 85027; 85610; 99152; 99153

== ENCOUNTER → 2024-09-23 | Outpatient (CLI) | payer MEDICARE, SELFPAY ==
[2017-06-01 08:52] VITALS: BMI 24.1
[2024-09-23 18:07] LABS: Hematocrit 34.9 % (37-47); Hemoglobin 11.3 g/dL (12.0-15.0); Mean Corp Hgb Conc 32.4 g/dL (32-36); Mean Corpuscular Volume 96.7 fL (81-99); Mean Platelet Vol. 9.7 fl (6.2-12.0); Platelet Count 270 K/mm3 (150-450); RBC Distribution Width CV 12.6 % (11.6-14.6); RBC Distribution Width SD 45.1 fl (35.1-43.9); Red Blood Count 3.61 M/mm3 (4.2-5.4); White Blood Count 8.9 K/mm3 (4.4-11.0)
[2024-09-23 19:09] LABS: AST(SGOT) 44 U/L (<=31); Alanine Aminotransfer ALT/SGPT 32 U/L (<=34); Albumin, Serum 4.2 g/dL (3.4-4.8); Alkaline Phosphatase 106 U/L (35-104); Anion Gap 13 (5-15); BUN 26 mg/dL (4-19); BUN/Creat Ratio 19.3 RATIO (10-20); Calcium,Total 9.5 mg/dL (7.6-11.0); Carbon Dioxide 21.7 mmol/L (21.0-32.0); Chloride 101 mmol/L (98-108); Globulin 3.1 g/dL (2.2-4.2); Glucose 94 mg/dL (70-99); Potassium 4.4 mmol/L (3.3-5.1); Vitamin B12 331 pg/mL (180-914)
[2024-09-24 15:27] LABS: Ferritin 30 ng/mL (22-378); Iron 63 ug/dL (50-170); Iron Binding Capacity,Total 319 ug/dL (250-450); Iron Binding Capacity,Unsat 256 ug/dL (228-428)
[2024-09-25 11:09] LABS: ANTINUCLEAR ANTIBODIES DIRECT Negative (Negative)
[2024-09-27 17:07] LABS: VITAMIN B6 72.2 ug/L (3.4-65.2); Vitamin B1, Thiamine 104.5 nmol/L (66.5-200.0)
== END | disposition home or self-care (01) ==
LOC: MFPLAB 15:13
PROVIDERS: PCP Family Medicine; Referring Provider Family Medicine; Visit Provider Family Medicine
DX: D64.9 Anemia, unspecified (principal); G62.9 Polyneuropathy, unspecified
CPT/HCPCS: 36415; 80053; 82607; 82728; 83540; 83550; 84207; 84425; 85027; 86038

== ENCOUNTER → 2024-10-13 | Outpatient (CLI) | payer MEDICARE, SELFPAY ==
[2017-06-01 08:52] VITALS: BMI 24.1
--- NOTE | 2024-10-13 14:30 | US_ITS ---
PROCEDURE: HEAD/NECK SOFT TISSUE 10/13/2024 REASON FOR EXAM: ATTENTION TO LEFT SUBMANDIBULAR GLAND TECHNIQUE: HEAD/NECK SOFT TISSUE COMPARISON: None FINDINGS: The right submandibular gland measures 3.5 cm x 3.2 cm x 0.9 cm. It is unremarkable. The left submandibular gland measures 3.4 cm x 3.8 cm x 0.8 cm. No mass lesion is seen. US/Head/Neck Soft Tissue IMPRESSION: Symmetrically appearing bilateral submandibular glands. No suspicious abnormality is seen. Reading Location: [id number]
== END | disposition home or self-care (01) ==
LOC: US 14:30
PROVIDERS: PCP Family Medicine; Referring Provider Family Medicine; Visit Provider Family Medicine
DX: R22.1 Localized swelling, mass and lump, neck (principal)
CPT/HCPCS: 76536

== ENCOUNTER → 2024-11-06 | Outpatient (CLI) | payer MEDICARE, SELFPAY ==
[2017-06-01 08:52] VITALS: BMI 24.1
--- NOTE | 2024-11-06 12:42 | RAD_ITS ---
PROCEDURE: ACUTE ABDOMEN INC CHEST 11/06/2024 REASON FOR EXAM: ABD PAIN TECHNIQUE: ACUTE ABDOMEN INC CHEST FINDINGS: LINES: Right-sided pacemaker device with right atrial and right ventricular leads. LUNGS: No focal airspace consolidation. Calcified granulomas bilaterally. PLEURAL SPACES: No pleural effusion. No pneumothorax. HEART: The heart size is normal. MEDIASTINUM: Unremarkable. AORTA: Calcified thoracic and abdominal aorta.. PERITONEUM: No appreciable free air. Multiple left upper quadrant calcifications, likely calcified splenic granulomas. BOWEL: The bowel gas pattern is unremarkable. No bowel obstruction. Moderate colonic stool. BONES: No acute osseous abnormality. Prior spinal instrumentation with fusion hardware at L2-L3. Degenerative changes of the spine and both hips. RAD/Acute Abdomen Inc Chest IMPRESSION: NO ACUTE FINDINGS. Reading Location: [id number]
[2024-11-06 12:51] LABS: Mucous, Urine 0 SEEN /hpf (<or=2+)
[2024-11-06 15:13] LABS: Color, Urine Yellow (Yellow); Glucose, Dipstick Normal (Normal); Ketone-Dipstick Negative (Negative); Leukocyte Esterase-Dipstick 25 /ul (Negative); Nitrite-Dipstick Negative (Negative); Occult Blood-Urine 25 /ul (Negative); Protein-Dipstick 30 mg/dl (Negative); Specific Gravity, Urine 1.010 (1.002-1.030); Urine Bilirubin Dipstick Negative (Negative)
[2024-11-06 15:16] LABS: Hematocrit 37.3 % (37-47); Hemoglobin 12.3 g/dL (12.0-15.0); Immature Granulocytes Count 0.020 X10^3/uL (0.0-0.0); Mean Corp Hgb Conc 33.0 g/dL (32-36); Mean Corpuscular Volume 94.9 fL (81-99); Mean Platelet Vol. 9.9 fl (6.2-12.0); NRBC Flagged by Analyzer 0 % (0-5); Platelet Count 283 K/mm3 (150-450); RBC Distribution Width CV 13.1 % (11.6-14.6); RBC Distribution Width SD 45.4 fl (35.1-43.9); Red Blood Count 3.93 M/mm3 (4.2-5.4); White Blood Count 9.5 K/mm3 (4.4-11.0)
[2024-11-06 15:29] LABS: PTHIN 121 pg/mL (11-61)
[2024-11-06 15:30] LABS: Creatinine, Urine (random) 133.00 mg/dL (28.00-217.00); Protein, Urine (Random) 40.9 mg/dL (0.0-12.0); Protein:Creat Ratio 308 mg/g CRE (0-200)
[2024-11-06 17:18] LABS: Squamous Epithelial Cells - UA 5-10 SEEN /hpf (5-10)
[2024-11-06 17:19] LABS: Red Blood Cells-Urine 0-5 SEEN /hpf (0-5)
[2024-11-06 17:28] LABS: AST(SGOT) 54 U/L (<=31); Alanine Aminotransfer ALT/SGPT 51 U/L (<=34); Albumin, Serum 4.3 g/dL (3.4-4.8); Alkaline Phosphatase 100 U/L (35-104); Anion Gap 17 (5-15); BUN 19 mg/dL (4-19); BUN/Creat Ratio 13.3 RATIO (10-20); Calcium,Total 9.0 mg/dL (7.6-11.0); Carbon Dioxide 19.6 mmol/L (21.0-32.0); Chloride 99 mmol/L (98-108); Globulin 2.8 g/dL (2.2-4.2); Glucose 101 mg/dL (70-99); Magnesium 1.9 mg/dL (1.5-2.2); Potassium 4.2 mmol/L (3.3-5.1)
[2024-11-06 18:27] LABS: Cholesterol 143 mg/dL (<=200); Low Density Lipoprotein Calc. 62 mg/dL; Triglycerides 72 mg/dL; Very Low Density Lipoprotein 14 mg/dL (5-40); Vitamin B12 321 pg/mL (180-914); Vitamin D,25 Hydroxy 30.3 ng/mL (30-100); cholesterol:hdl ratio screen 2.14
== END | disposition home or self-care (01) ==
LOC: MTLAB 12:40
PROVIDERS: PCP Family Medicine; Referring Provider Family Medicine; Visit Provider Family Medicine
DX: I10 Essential (primary) hypertension (principal); E78.5 Hyperlipidemia, unspecified; E21.3 Hyperparathyroidism, unspecified; E03.9 Hypothyroidism, unspecified; R10.9 Unspecified abdominal pain
CPT/HCPCS: 36415; 74022; 80053; 80061; 81001; 82306; 82570; 82607; 83735; 83970; 84156; 84207; 84425; 84439; 84443; 85025

== ENCOUNTER → 2024-11-14 | Outpatient (CLI) | payer MEDICARE, SELFPAY ==
[2017-06-01 08:52] VITALS: BMI 24.1
--- NOTE | 2024-11-14 09:45 | US_ITS ---
PROCEDURE: ABDOMEN LIMITED 11/14/2024 REASON FOR EXAM: POST PRANDIAL RUQ PAIN TECHNIQUE: Procedure Code: USABDL Modality: US Procedure: ABDOMEN LIMITED COMPARISON: None FINDINGS: Liver: Grossly normal size and echotexture. Gallbladder: Mildly distended gallbladder. Common bile duct: Normal measuring 6 mm. . Pancreas: Visualized portions are sonographically unremarkable. Other: The right kidney measures 9.3 cm 4 cm 4.9 cm. The renal cortex measures 1.2 cm. There is a 9 mm x 8 mm x 7 mm cyst in the inferior pole. There is a 3 mm x 3 mm x 3 mm calculus in the right kidney. US/Abdomen Limited IMPRESSION: Mildly distended gallbladder. No evidence of gallstones. Small right renal cyst and small nonobstructive intrarenal calculus. Reading Location: [id number]
== END | disposition home or self-care (01) ==
LOC: US 09:43
PROVIDERS: PCP Family Medicine; Referring Provider Family Medicine; Visit Provider Family Medicine
DX: R10.11 Right upper quadrant pain (principal)
CPT/HCPCS: 76705

== ENCOUNTER 2024-11-16 17:15 | Inpatient (IN) | payer MEDICARE, SELFPAY ==
[2017-06-01 08:52] VITALS: BMI 24.1
[2024-11-16] VITALS (7 sets, daily range): BP systolic 109–156; BP diastolic 56–86; PULSE 60–79; RESP 11–19; TEMP 36.4–36.7; O2SAT 95–100; BMI 25.9; BMI 21.8
--- NOTE | 2024-11-16 17:42 | CT_ITS ---
PROCEDURE: BRAIN/HEAD WITHOUT CONTRAST 11/16/2024 REASON FOR EXAM: FALL. ON BLOOD THINNER. TECHNIQUE: Procedure Code: CTBR Modality: CT Procedure: BRAIN/HEAD WITHOUT CONTRAST Coronal and Sagittal reconstruction series were provided. One or more dose reduction techniques were used (e.g., Automated exposure control, adjustment of the mA and/or kV according to patient size, use of iterative reconstruction technique. RADIATION DOSE SUMMARY: CTDlvol: 90 mGy DLP: 1663 mGycm COMPARISON: October 11, 2023 FINDINGS: Brain: There is no evidence of hemorrhage, acute ischemia or mass. No extra- axial fluid collection, midline shift or mass effect. Low-density in the periventricular white matter and deep white matter of the frontal and parietal lobes greatest in the parietal lobes. CSF Spaces: Mild generalized cerebral atrophy Sinuses/Mastoids: Clear Bones: No fracture CT/Brain/Head without Contrast IMPRESSION: 1. No evidence of intracranial hemorrhage or acute ischemia. 2. Changes of chronic microvascular ischemia and volume loss. Reading Location: [id number]
--- NOTE | 2024-11-16 17:42 | CT_ITS ---
PROCEDURE: SPINE CERVICAL WITHOUT CONTRAS 11/16/2024 REASON FOR EXAM: FALL AND NECK PAIN. TECHNIQUE: Procedure Code: CTS Modality: CT Procedure: SPINE CERVICAL WITHOUT CONTRAS Coronal and Sagittal reconstruction series were provided. One or more dose reduction techniques were used (e.g., Automated exposure control, adjustment of the mA and/or kV according to patient size, use of iterative reconstruction technique. RADIATION DOSE SUMMARY: CTDlvol: 306 mGy DLP: 863 mGycm COMPARISON: March 04, 2024 FINDINGS: Alignment: Mild straightening of the lordosis. Minimal anterolisthesis of C4 on C5 of proximally 2-3 mm. This is degenerative in nature. Vertebrae: No fracture or loss of vertebral body height. Marginal endplate spurs are seen C3/4, C4/5, C5/6, C6/7. Facet hypertrophy and uncinate spurring is seen throughout the cervical spine Soft Tissues: Lung apices are clear. No lymphadenopathy. Surgical clips in the left neck. CT/Spine Cervical without Contras IMPRESSION: No fracture. Multilevel degenerative changes. Reading Location: [id number]
--- NOTE | 2024-11-16 17:42 | EKG12_ITS ---
Test Reason : SYNCOPE Blood Pressure : */* mmHG Vent. Rate : 60 BPM Atrial Rate : 60 BPM P-R Int : 168 ms QRS Dur : 148 ms QT Int : 504 ms P-R-T Axes : * -57 69 degrees QTcB Int : 504 ms AV dual-paced rhythm Abnormal ECG Confirmed by Jin Barnes ([id number]), society editor NEFTALI SAUER ([id number]) on 11/18/2024 10:43:17 AM Referred By: JOE Confirmed By: Jin Barnes
--- NOTE | 2024-11-16 17:43 | CT_ITS ---
PROCEDURE: ABDOMEN/PELVIS W IV CONT ONLY 11/16/2024 REASON FOR EXAM: ABDOMINAL PAIN TECHNIQUE: Procedure Code: CTABDPELIV Modality: CT Procedure: ABDOMEN/PELVIS W IV CONT ONLY Coronal and Sagittal reconstruction series were provided. CONTRAST: Isovue 370 VOLUME: 98 mL One or more dose reduction techniques were used (e.g., Automated exposure control, adjustment of the mA and/or kV according to patient size, use of iterative reconstruction technique. RADIATION DOSE SUMMARY: CTDlvol: 91 mGy DLP: 1663 mGycm COMPARISON: October 11, 2023 FINDINGS: Lung bases: Clear Liver: No change in the minimal intrahepatic duct dilation mainly in the periphery of the left lobe. 7.9 mm hypodensity in the anterior segment right hepatic lobe on image 21 is new. Gallbladder: Normal Spleen: Scattered granulomas are present. Otherwise normal. Pancreas: No acute abnormality. Some dystrophic calcification is seen adjacent to or possibly involving the uncinate process. No change. This may be the sequelae of chronic pancreatitis if there is a history of prior pancreatitis. No main duct dilation. Adrenals: Normal Kidneys: Normal Bladder: Normal Reproductive Organs: Hysterectomy Bowel: Minimal sliding hiatus hernia. Stomach otherwise normal. Small bowel is normal caliber. Colon is unremarkable. Appendix: The appendix is not identified. There is no inflammatory process identified in the right lower quadrant to suggest appendicitis. Lymph nodes: None appear enlarged. Vasculature: [id number] atherosclerotic plaque without aneurysm. Peritoneum / Retroperitoneum: No free air, free fluid or mass. Bones: Degenerative changes of the spine. CT/Abdomen/Pelvis W IV Cont ONLY IMPRESSION: 1. No acute abnormality. 2. Small sliding hiatus hernia. 3. 7 mm hypodensity right hepatic lobe is new and nonspecific. Mild intrahepa tic duct dilation similar to prior exam. Correlate with laboratory values. If desired, nonemergent MRI of the liver cou ld be performed to fully characterize the lesion. 4. Advanced atherosclerosis without aneurysm. 5. Hysterectomy Reading Location: [id number]
--- NOTE | 2024-11-16 17:46 | EDS_ITS ---
HPI History of Present Illness Chief Complaint: Syncope Informant: patient Onset/Context/Timing Onset: Weeks Context: Gradual Onset Timing: Continuous Current Severity: Mild Maximum Severity: Mild Narrative Narrative: [id number]-[id number] female history of A-fib and flutter prior PE, COPD, CAD AD on the blood thinner Eliquis. She has been having abdominal pain last several weeks. Said she has had multiple bowel movements yesterday and today. Today while walking in her home she had a syncopal event woke up on the floor. Complaining of neck pain. Denies any melena. No fever. Intermittently she has had constipation and diarrhea. She has no GI bleed history family states she has had very little to eat recently because she has not felt up to it. Also she has had multiple syncopal episodes in the past and has a pacemaker. Prior similar symptoms: Yes Recent Illness/Hospitalization: No PFSH PFSH Medical History History of steroid therapy Vertigo Seasonal allergies Wears glasses Wears dentures Post-menopausal Depression Ambulates with cane Walker as ambulation aid Arthritis DVT (deep venous thrombosis) Easy bruising Excessive bleeding Restless legs History of ulceration Gastric reflux On home oxygen therapy Former smoker Chronic cough Leg cramps History of echocardiogram Cardiology follow-up encounter History of atrial fibrillation Atrial fibrillation with rapid ventricular response (01/21/20) Paroxysmal atrial fibrillation Paroxysmal atrial flutter Bilateral carotid artery stenosis Right bundle branch block (RBBB) with left anterior fascicular block Right pulmonary embolus (08/17/19) Lichen sclerosus Osteoarthritis Bone spur of foot Hypothyroidism COPD (chronic obstructive pulmonary disease) Ganglion cyst of left foot Essential (primary) hypertension Hyperlipidemia Complete heart block Sick sinus syndrome Diverticulosis GERD (gastroesophageal reflux disease) Anxiety Fatigue Dizziness and giddiness Intermittent chest pain Atherosclerotic heart disease of [place] coronary artery without angina pectoris Nonrheumatic mitral (valve) prolapse NSTEMI (non-ST elevated myocardial infarction) (05/30/17) Home Medications ?Medication ?Instructions ?Recorded ?Last Taken ?Type nitroglycerin 0.4 mg sublingual 0.4 mg sublingual Q5-1 5M PRN chest 08/03/18 Unknown Rx tablet pain #25 tabs vit C 250 mg-vit E 90 mg-zinc 40 1 cap PO BID eye heal th 12/04/21 12/03/21 History mg-copper 1 [id number] capsule (PreserVision AREDS-2) magnesium oxide 400 mg PO DAILY SUPPLEMENT 0 05/05/22 07/23/22 History albuterol sulfate 90 mcg/actuation 2 puff inhalation Q 4H PRN 06/19/23 Unknown History aerosol inhaler shortness of breath or wheez ing cholecalciferol (vitamin D3) 125 125 mcg PO DAILY 05/12 Unknown History mcg (5,000 unit) capsule fluticasone propionate 50 1 spray intranasal DAILY 05/12 Unknown History mcg/actuation nasal spray,suspension vitamin B complex 1 tab PO DAILY 06/19/23 Unkn own History amiodarone 200 mg tablet 200 mg PO DAILY heart #90 ta bs 06/30/24 Unknown Rx levothyroxine 125 mcg tablet 125 mcg PO QDAY 07/29/24 Unknown History omeprazole 40 mg capsule,delayed 40 mg PO QAM 07/29/24 Unknown History release apixaban 5 mg tablet 5 mg PO BID blood thinner #1 80 tabs 09/17/24 Unknown Rx Allergy/AdvReac Type Severity Reaction Status Date / Time Penicillins (PCN) Allergy Hives Verified 07/29/24 13:27 aspirin AdvReac Severe Severe GI Verified 07/29/24 13:27 upset atorvastatin AdvReac Severe elevated Verified 07/29/24 13:27 liver enzymes metformin AdvReac gi upset Verified 07/29/24 13:27 Family History Father Cancer lung cancer Heart disease Mother CVA (cerebral vascular accident) Hypertension Sister Hypertension Cancer lung cancer Son Diabetes Hypertension Myocardial infarction, Onset Age: 48 Surgical History History of cardioversion (04/19/20) History of left heart catheterization (09/10/17) H/O excision of ganglion cyst History of back surgery History of hysterectomy History of carpal tunnel release H/O bladder repair surgery History of appendectomy Presence of permanent cardiac pacemaker (04/19/15) History of coronary artery stent placement (05/31/17) Social History Smoking Status: Former smoker alcohol intake: never substance use type: does not use caffeine: Yes Type: coffee Number of servings: 3 what type of physical activity do you participate in: none seatbelt use: always do you feel safe at home: Yes ROS ROS ED ROS Narrative Abdominal pain for weeks. Constipation diarrhea. Syncopal episode today. Denies any chest pain or shortness of breath. Constitutional Constitutional ED: Denies chills or fever(s) Eyes Eyes: Denies blurry vision ENT ENT ED: Denies ear pain Cardiovascular Cardiovascular: Denies chest pain Respiratory/Chest Respiratory/Chest: Denies cough, dyspnea or dyspnea on exertion Gastrointestinal Gastrointestinal: Reports abdominal pain, constipation and diarrhea; Denies melena, nausea or vomiting Genitourinary Genitourinary ED: Denies dysuria or hematuria Musculoskeletal Musculoskeletal: Denies arthralgias Integumentary Denies abscess Neurologic Neurologic: Denies headache(s) Psychiatric Psychiatric: Denies anxiety Endocrine Endocrinology: Denies cold intolerance Hematologic/Lymphatic Hematologic/Lymphatic: Reports none Allergic/Immunologic Allergic/Immunologic ED: Denies mouth swelling, tongue swelling or urticaria EXAM Physical Exam Narrative Exam Narrative: Eczema female sitting upright in bed. Vital signs stable afebrile. Pulse ox 100% on room air no signs hypoxia. H EENT exam pupils round react light. Moist mucous membranes. There is no signs of trauma to her face or scalp nontender no hematomas. No bruising. Neck she has no spine tenderness she has right lateral neck tenderness. But there is no signs of trauma. Trachea midline. Back and spine nontender. Lungs clear to auscultation bilaterally. Heart paced rhythm rate of 60 no murmur. Chest wall and ribs nontender. Pacemaker on the right. Abdomen is soft nondistended normal bowel sounds without peritoneal signs. No obstruction. No pulsatile mass. Very benign abdominal exam. Positive bowel sounds. Pelvic girdle intact. Moving all 4 extremities. 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 Hips nontender. Normal dorsi plantarflexion. Legs nontender no edema. Neurologically she is awake and alert. Answering questions following commands. Const Vital Signs: 11/16/24 17:17 11/16/24 17:46 11/16/24 19:16 Temperature 97.6 F L Temperature Source Oral Pulse Rate 60 69 Respiratory Rate 16 18 Respiratory Effort Normal Respiratory Pattern Normal Blood Pressure 154/68 H 122/86 H Blood Pressure Mean 96 98 Pulse Ox 100 97 Oxygen Delivery Method Room Air Room Air 11/16/24 20:51 11/16/24 21:00 Temperature Temperature Source Pulse Rate 60 60 Respiratory Rate 18 11 L Respiratory Effort Respiratory Pattern Blood Pressure 130/56 H Blood Pressure Mean 80 Pulse Ox 100 100 Oxygen Delivery Method Positive well nourished and well developed; Negative for cachectic, contractures or unkempt General Appearance ED: well developed and NAD; Negative for unkempt, cachectic, contractures, cyanotic, diaphoretic or pallor Nutritional Appearance: Negative for cachectic HEENT Reports moist mucous membranes Negative for trauma or tenderness Eyes PERRL and EOMs intact bilaterally Neck no lymphadenopathy, supple and no JVD Chest Wall inspection of chest normal and palpation of chest normal Resp normal respiratory effort and clear to auscultation bilaterally Cardio regular rate, regular rhythm, S1 normal heart sound, S2 normal heart sound and no murmurs GI normal to inspection, nondistended, normoactive bowel sounds, non-tender, non- distended and no masses Auscultation: normoactive bowel sounds Palpation: soft; Negative for tender, guarding or rebound tenderness present Back/Spine no CVA tenderness General Back: Negative for CVA tenderness Cervical Spine: Negative for cervical spine tenderness Thoracic Spine / Upper Back: Negative for thoracic spinal tenderness or paraspinal muscle tenderness Lumbar Spine / Lower Back: Negative for lumbar spinal tenderness Extremity normal to inspection General Extremety ED: Negative for edema or tenderness General Extremity: Negative for edema Neuro oriented x3 and CN's II-XII intact bilaterally Sensorium / Orientation: alert Motor Exam: strength 5/5 throughout Psych mental status grossly normal Appearance: Negative for unkempt Skin no rashes or lesions noted and no wounds General Skin Exam: Negative for jaundice or pallor Lesions: No lesion noted Rashes: No rashes noted MDM MDM MDM Narrative Medical decision making narrative: Is [age]-year-old female with abdominal pain for weeks with intermittent diarrhea and constipation and today also the syncopal event which she is also had before in the past. She has a history of atrial fibs and flutter she is on Eliquis. Given her syncope she will get a cardiac workup given her abdominal pain show abdominal workup given her syncopal episode and fall with complaint neck pain should get a CT of her head and neck due to the fall and being on blood thinners. Repeat exam patient is doing well resting comfortably. However she is very weak family said she cannot walk around her home she will be admitted for failure to thrive. I have the hospitalist on page. Nurses are assessing if she is strong enough to walk. Patient is willing to be admitted after discussion with both her and her family her granddaughters at bedside. Currently they are unable to take care of her at home and she lives by herself. No History & Record Review Discussion w/independent historian: Patient Additional record(s) reviewed:: Prior inpatient record, Prior outpatient record, Prior ED visit and Prior labs Lab Data Attestation: I reviewed the patient's lab results. Lab results narrative: CBC shows a white count of 10. H&H 11.6 and 33. Platelets 228. Electrolytes show sodium 134. Gap 15. BUN and creatinine 19 and 1.6. Glucose 105. Liver enzymes elevated AST and ALT. Initial troponin 19. Amylase is normal at 32. Lipase normal at 53. Urinalysis shows rare bacteria but no white or red cells. No nitrates. Labs ar e consistent with priors for comparison. Labs: Laboratory Results - last 24 hr 11/16/24 11/16/24 18:00 19:05 WBC 10.0 RBC 3.72 L Hgb 11.6 L Hct 33.4 L MCV 89.8 MCH 31.2 MCHC 34.7 RDW Std Deviation 42.7 RDW Coeff of Guy 13.1 Plt Count 228 MPV 9.5 Immature Gran % (Auto) 0.500 Neut % (Auto) 85.8 H Lymph % (Auto) 7.1 L [place] % (Auto) 6.4 Eos % (Auto) 0.0 Baso % (Auto) 0.2 Absolute Neuts (auto) 8.6 H Absolute Lymphs (auto) 0.71 L Nucleated RBC % 0 Sodium 134 Potassium 3.7 Chloride 99 Carbon Dioxide 19.1 L Anion Gap 15 BUN 19 Creatinine 1.62 H Estim Creat Clear Calc 19.84 L Est GFR (MDRD) Non-Af 31 L BUN/Creatinine Ratio 11.6 Glucose 105 H Calcium 9.2 Total Bilirubin 0.78 AST 101 H ALT 96 H Alkaline Phosphatase 96 Troponin T High Sens 19 H Total Protein 6.6 Albumin 3.9 Globulin 2.7 Albumin/Globulin Ratio 1.5 Amylase 32 Lipase 53 Urine Color Yellow Urine Clarity Clear Urine pH 7.0 Ur Specific [place] 1.005 Urine Protein 30 H Urine Glucose (UA) Normal Urine Ketones 5 H Urine Occult Blood 10 H Urine Nitrite Negative Urine Bilirubin Negative Urine Urobilinogen Normal Ur Leukocyte Esterase 100 H Urine RBC 0-5 SEEN Urine WBC 0-5 SEEN Ur Squamous Epith Cells 0-5 SEEN Urine Bacteria RARE Urine Mucus 0 SEEN Radiography Diagnostic Testing: Clinical Impression(s) from Imaging Studies Brain CT 11/16/24 17:42 IMPRESSION: 1. No evidence of intracranial hemorrhage or acute ischemia. 2. Changes of chronic microvascular ischemia and volume loss. Reading Location: [id number] Cervical Spine CT 11/16/24 17:42 IMPRESSION: No fracture. Multilevel degenerative changes. Reading Location: [id number] Abdomen/Pelvis CT 11/16/24 17:43 IMPRESSION: 1. No acute abnormality. 2. Small sliding hiatus hernia. 3. 7 mm hypodensity right hepatic lobe is new and nonspecific. Mild intra hepatic duct dilation similar to prior exam. Correlate with laboratory values. If desired, nonemergent MRI of the liver could be performed to fully characterize the lesion. 4. Advanced atherosclerosis without aneurysm. 5. Hysterectomy Reading Location: [id number] Chest X-Ray 11/16/24 18:35 IMPRESSION: No acute cardiopulmonary process. Coronary artery atherosclerosis. Pacemaker in place. Reading Location: [facility] Rhythm Strip Rhythm Strip: Paced Rate: 60 Ectopy: None EKG Initial EKG: Attestation: I personally reviewed and interpreted this EKG as follows: Interpretation: No Acute Injury Pattern and Paced Comments: Paced rhythm rate of 60. Discharge Plan Dx/Rx/DC Orders Clinical Impression: Adult failure to thrive, Chronic anticoagulation, Generalized weakness, Unable to ambulate, Syncope, History of atrial fibrillation, History of COPD, Diarrhea, Chronic kidney disease, Mild dehydration Disposition Disposition: [facility] Care [facility]
--- OUTSIDE RECORDS SUMMARY | 2024-11-16 17:49 | XMS RPT_ITS | CCD ---
Author Organization [facility] CliniSyut Care Team Providers Care Pipe Chipper Name Role Phone Rox Huerta Unavailable [facility], [facility] Unavailable Ernesto Vargas Unavailable Lennox Leger Unavailable Geoff Reyna Unavailable MessengerNinoska Unavailable Unavailable Slarb, Donna Unavailable Unavailable Unavailable Unavailable Rox Huerta Attending Unavailable Rox Huerta Referring Unavailable Rox Huerta Consulting Unavailable Rox Huerta Unavailable [facility], [facility] Unavailable Ernesto Vargas A Unavailable Lennox Leger Unavailable Geoff Reyna Unavailable Messenger, Ninoska Unavailable Unavailable Slarb, Donna Unavailable Unavailable Unavailable Unavailable Gravius, Yumiko Unavailable Unavailable Bologna Ernesto Unavailable Gravius, Yumiko Unavailable Unavailable Messenger, Ninoska Unavailable Unavailable Dr. Jian Savage Primary Care Provider [phone] Dr. Jian Savage Referring Provider Dr. Pako Morocho Attending Provider Dr. Jian Viveros Primary Care Provider Dr. Jian Viveros Referring Provider Dr. Jian Viveros Other Provider Dr. Deepak Valadez Attending Provider Dr. Dieter Sam Emergency Provider Dr. Clifford Larsen Admit Provider Dr. Clifford Larsen Attending Provider Dr. Clifford Larsen Other Provider Dr. Randall Tong Attending Provider Unavailable Dr. Randall Tong Other Provider Unavailable Dr. Jian Viveros Primary Care Provider Dr. Jian Viveros Referring Provider Dr. Clifford Pacheco Attending Provider Dr. Dieter Johnson Attending Provider Dr. Jian Viveros Primary Care Provider Dr. Dieter Johnson Attending Provider [phone] Stanton Calles Referring Provider Dr. Jian Viveros Referring Provider LOLIS Goodman Attending Provider Nikki Tamayo Attending Provider Unavailable Dr. Pako Morocho Attending Provider [phone] Pako Morocho Referring Provider [phone] Jian Viveros Primary Care Provider Dr. Jian Viveros Referring Provider Dr. Dieter Johnson Attending Provider [phone] LOLIS Goodman Referring Provider LOLIS Goodman Other Provider Dr. Pako Morocho Attending Provider [phone] Dieter Johnson Admit Provider Dr. Dieter Johnson Referring Provider Dr. Dieter Johnson Other Provider Dr. Clint Montes Other Provider LOLIS Calvin Attending Provider Dr. Jian Viveros Primary Care Provider Dr. Jian Viveros Referring Provider Nikki Tamaoy Attending Provider Unavailable Dr. Dieter Johnson Attending Provider Dr. Jian Viveros Primary Care Provider Dr. Jian Viveros Referring Provider Nikki Tamayo Attending Provider Unavailable Dr. Jian Vivreos Primary Care Provider Dr. Pako Morocho Attending Provider Dr. Pako Morocho Referring Provider Dr. Jian Viveros Referring Provider Dr. Jin Barnes Attending Provider Dr. Jian Viveros MD Primary Care Provider Dr. Jian Viveros MD Referring Provider Dori Goodman Attending Provider Dr. Jian Viveros MD Attending Provider Dr. Pako Morocho MD Attending Provider Dr. Pako Morocho MD Referring Provider Dr. Jian Viveros MD Primary Care Provider [phone] Dr. Jian Viveros MD Attending Provider Dr. Jian Viveros MD Referring Provider Nikki Tamayo Attending Provider Unavailable Dr. Jin Barnes MD Attending Provider Dr. Pako Morocho MD Referring Provider Rashawn ALCALA, Dr. Min Referring Provider Nikki Tamayo Attending Provider Unavailable Dr. Jian Viveros MD Primary Care Provider Rashawn ALCALA, Dr. Min Attending Provider Jackeline ALCALA, Dr. Jian Dejesus Referring Provider Dr. Jian Viveros MD Attending Provider Jian Viveros Primary Care Unavailable Rashawn, Pako Attending Unavailable Rashawn, [place] Referring Unavailable Schinner, Jian E Primary Care Unavailable Rashawn, [place] Attending Unavailable Schinner, Jian E Primary Care Unavailable Dori Goodman Attending Unavail able Schinner, Jian E Referring Unavailable Rashawn, Pako Attending Unavailable Schinner, Jian E Primary Care Unavailable Rashawn, Pako Referring Unavailable Schinner, Jian E Primary Care Unavailable Rashawn, Pako Attending Unavailable Schinner, Jian E Primary Care Unavailable Rashawn, [place] Referring Unavailable Rashawn, Pako Attending Unavailable Schinner, Jian E Primary Care Unavailable Rashawn, [place] Attending Unavailable Rashawn, [place] Referring Unavailable Schinner, Jian E Referring Unavailable Schinner, Jian E Primary Care Unavailable Schinner, Jian E Attending Unavailable Schinner, Jian E Referring Unavailable Schinner, Jian E Attending Unavailable Schinner, Jian E Primary Care Unavailable Schinner, Jian E Referring Unavailable Schinner, Jian E Primary Care Unavailable SchinnerJian E Attending Unavailable Schinner, Jian E Referring Unavailable Schinner, Jian E Attending Unavailable Schinner, Jian E Primary Care Unavailable Schinner, Jian E Primary Care Unavailable Dori Goodman Referring Unavail able Dori Goodman Attending Unavail able Kishor RUBIN, Ninoska Referring Unavailable Kishor RUBIN, Ninoska Attending Unavailable Schinner, Jian E Primary Care Unavailable Schinner, Jian E Referring Unavailable Schinner, Jian E Attending Unavailable Schinner, Jian E Primary Care Unavailable Schinner, Jian E Attending Unavailable Schinner, Jian E Primary Care Unavailable Schinner, Jian E Referring Unavailable Schinner, Jian E Primary Care Unavailable Rashawn, Pako Attending Unavailable Rashawn, Pako Referring Unavailable Schinner, Jian E Referring Unavailable Jin Barnes Attending Unavailable Schinner, Jian E Primary Care Unavailable Schinner, Jian E Primary Care Unavailable Rashawn, [place] Attending Unavailable Rashawn, [place] Referring Unavailable Allergies Allergy Classification Reported Allergen(s) Allergy Type Date of Onset Reaction(s) Facility (19 sources) albuterol; Translations: [ProAir HFA *ANTIASTHMATIC AND BRONCHODILATOR AGENTS*] Drug Allergy [facility] Work Phone: Comment on above: red and swollen face (19 sources) levoFLOXacin; Translations: [Levaquin *FLUOROQUINOLONES *] Drug Allergy [facility] Work Phone: Comment on above: red face and swollen (20 sources) Penicillins; Translations: [Penicillins] allergy to substance 05-25-19 Rash [facility] Work Phone: (20 sources) Aspirin Drug Allergy 05-25-19 Severe GI upset [facility] (20 sources) atorvastatin Drug Allergy 05-25-19 elevated liver enzymes [facility] (20 sources) metFORMIN Drug Allergy 05-25-19 gi upset [facility] (1 source) Aspirin Drug Allergy 07-30-19 [facility] (1 source) atorvastatin Drug Allergy 07-30-19 [facility] (1 source) metFORMIN Drug Allergy 07-30-19 [facility] Medications Current Medications Medication Drug Class(es) Dates Sig (Normalized) Sig (Original) [id number] 200 actuat albuterol 0.09 mg/actuat metered dose inhaler (20 sources) beta2-Adrenergic Agonist Start: 06-19-2023 Albuterol Sulfate 90 mcg/actuation HFA aerosol inhaler Active 2 NMA INHALATION Q4H as needed for shortness of breath or wheezing June 19, 2023 12:00am Start: 06-19-2023 take 1 puff(s) by in halation every four hours Albuterol Sulfate Active 2 PUFF INHALATION Q4H June 19, 2023 12:00am Start: 08-20-2020 End: 07-29-2024 take 2.5 mg by inhalation every four hours as needed Albuterol Sulfate 2.5 mg/0.5 mL solution for nebulization Discontinued 2.5 mg INHALATION Q4H as needed for Shortness Of Breath August 20, 2020 12:00am July 29, 2024 1:36pm Start: 04-05-2017 End: 04-05-2017 take 2 puff(s) by inhalation every six hours as needed ProAir HFA 108 (90 Base) MCG/ACT Inhalation Aerosol Solution 2 (two) Puff q 6 h prn for 30 days Quantity: 1 {Inhaler} Refills: 0 Ordered: 05-Apr-2017 Rox Huerta DO, DO, Kathleen Start : 05-Apr-2017 End : 05-Apr-2017 Inactive Comments: swollen face and red Comment on above: swollen face and red cholecalciferol 0.125 mg oral capsule (20 sources) Vitamin D Start: 06-19-19 24 take 1 capsule by mouth once daily Cholecalciferol (Vitamin D3) 125 mcg (5,000 unit) capsule Active 125 ug PO DAILY June 19, 2023 12:00am Start: 04-16-2015 take 1000 [IU] by mo [facility] once daily Cholecalciferol (Vitamin D3) Active 1000 UNIT PO DAILY April 16, 2015 1:00am Start: 10-10-2012 VITAMIN D, 100 0UNIT (Oral Capsule) 10 Capsule qd for 90 days Refills: 0 Ordered: 10-Oct-2012 Rox Huerta DO, DO, Kathleen Start : 10-Oct-2012 Active Start: 10-10-2012 take 10 capsules by mouth once daily VITAMIN D, 1000UNIT (Oral Capsule) 10 Capsule qd for 90 days Refills: 0 Ordered: 10-Oct-2012 Rox Huerta DO, DO, Kathleen Start : 10-Oct-2012 Active fluticasone propionate 0.05 mg/actuat metered dose nasal spray (12 sources) Corticosteroid Start: 06-19-2023 Fluticasone Pr opionate 50 mcg/actuation spray,suspension Active 1 NMA INTRANASAL DAILY June 19, 2023 12:00am Start: 06-19-2023 Fluticasone Pr opionate Active 1 SPRAY INTRANASAL DAILY June 19, 2023 12:00am lansoprazole 15 mg delayed release oral capsule (20 sources) Proton Pump Inhibitor Start: 08-20-2020 take 15 mg by mouth once daily Lansoprazole Active 15 MG PO DAILY August 20, 2020 12:00am Start: 04-23-2019 Prevacid 30 MG Oral Capsule Delayed Release [address] qd for 90 days Quantity: 90 {Capsule} Refills: 3 Ordered: 23-Apr-2019 Rox Huerta DO, DO, Kathleen Start : 23-Apr-2019 Active Start: 07-23-2018 End: 08-20-2020 Lansoprazole 30 mg capsule,d elayed release(DR/EC) Discontinued 1 {tbl} PO DAILY 90 90 0 July 23, 2018 12:00am August 20, 2020 1:32pm reflux Start: 05-29-2018 Prevacid 30 MG Oral Capsule Delayed Release [address] qd for 90 days Quantity: 90 {Capsule} Refills: 3 Ordered: 29-May-2018 Rox Huerta DO, DO, Kathleen Start : 29-May-2018 Active Start: 01-20-2016 Prevacid 30 MG Oral Capsule Delayed Release [address] qd for 90 days Quantity: 90 {Capsule} Refills: 3 Ordered: 20-Jan-2016 Rox Huerta DO, DO, Kathleen Start : 20-Jan-2016 Active Start: 04-16-2015 End: 01-18-2018 take 1 capsule by mouth once daily Lansoprazole 30 MG capsule Discontinued 30 mg PO DAILY April 16, 2015 1:00am January 18, 2018 11:11am GERD/ACID REFLUX magnesium oxide 400 mg oral capsule (19 sources) Start: 05-05-2022 take 1 capsule by mouth once daily Magnesium Oxide 400 mg magnesium capsule Active 400 mg PO DAILY May 05, 2022 1:00am SUPPLEMENT montelukast 10 mg oral tablet (20 sources) Leukotriene Receptor Antagonist Start: 08-20-2020 take 10 mg by mouth once daily Montelukast Active 10 MG PO DAILY August 20, 2020 12:00am Start: 01-20-2016 End: 05-21-2017 take 1 tablet by mouth once daily Montelukast Sodium 10 MG Oral Tablet 1 (one) Tablet qd for 30 days Quantity: 30 {Tablet} Refills: 3 Ordered: 21-May-2017 SlaDonna boyd LPN Start : 20-Jan-2016 End : 21-May-2017 Inactive Start: 03-27-2012 End: 08-11-2015 take 1 tablet by mouth once daily SINGULAIR, 10MG (Oral Tablet) 1 Tablet qd for 0 days Quantity: 90 {Tablet} Refills: 3 Ordered: 11-Aug-2015 Gianna Pereira Start : 27-Mar-2012 End : 11-Aug-2015 Inactive nitroglycerin 0.4 mg sublingual tablet (20 sources) Nitrate Vasodilator Start: 04-15-2018 End: 08-03-2018 Nitroglycerin 0.4 mg tablet, sublingual Active 0.4 mg SL every 5 to 15 minutes as needed for chest pain 10 06August 03, 2018 10:54am until response; do not exceed 3 doses per episode Start: 04-15-2018 End: 08-03-2018 Nitroglycerin Active 0.4 MG SL every 5 to 15 minutes August 03, 2018 10:54am until response; do not exceed 3 doses per episode omeprazole 40 mg delayed release oral capsule (9 sources) Proton Pump Inhibitor Start: 07-29-2024 take 1 capsule by mouth once daily in the morning Omeprazole 40 mg capsule,delayed release(DR/EC) Active 40 mg PO EVERY MORNING July 29, 2024 12:00am levothyroxine sodium 0.125 mg oral tablet (20 sources) l-Thyroxine Start: 07-29-2024 take 1 tablet by mouth once daily Levothyroxine 125 mcg tablet Active 125 ug PO daily July 29, 2024 12:00am Start: 02-11-2024 End: 07-29-2024 take 1 tablet by mouth once daily Levothyroxine 100 mcg tablet Discontinued 100 ug PO daily February 11, 2024 1:00am July 29, 2024 1:32pm Start: 09-24-2023 End: 02-11-2024 Levothyroxine 137 mcg tablet Discontinued 25 ug PO daily September 24, 2023 10:01am February 11, 2024 3:09pm Start: 06-19-2023 End: 09-24-2023 take 1 tablet by mouth once daily Levothyroxine 137 mcg tablet Discontinued 137 ug PO daily June 19, 2023 12:00am September 24, 2023 10:02am Start: 12-04-2021 End: 06-19-2023 Levothyroxine 50 mcg Tablet Discontinued 25 ug PO DAILY December 04, 2021 12:00am June 19, 2023 10:51am thyroid Start: 12-04-2021 End: 06-19-2023 take 25 ug by mouth once daily Levothyroxine Discontin ued 25 MCG PO DAILY December 04, 2021 12:00am June 19, 2023 10:51am Start: 12-04-2021 take 50 ug by mouth once daily Levothyroxine Active 50 MCG PO DAILY December 04, 2021 12:00am Start: 05-27-2021 take 88 ug by mouth once daily Levothyroxine Active 88 MCG PO DAILY May 27, 2021 1:00am Start: 05-24-2021 End: 05-27-2021 Levothyroxine 50 mcg tablet Discontinued NMA PO May 24, 2021 1:00am May 27, 2021 11:17am Start: 05-24-2021 End: 05-27-2021 Levothyroxine Discontinued E ACH PO May 24, 2021 1:00am May 27, 2021 11:17am Start: 08-20-2020 End: 05-24-2021 take 1 tablet by mouth once daily Levothyroxine 75 mcg tablet Discontinued 75 ug PO DAILY August 20, 2020 12:00am May 24, 2021 3:16pm Start: 10-09-2018 End: 01-07-2019 take 1 tablet by mouth once daily Levothyroxine Sodium 50 MCG Oral Tablet 1 Tablet qd for 90 days Quantity: 90 {Tablet} Refills: 0 Ordered: 09-Oct-2018 Rox Huerta DO, DO, Kathleen Start : 09-Oct-2018 End : 07-Jan-2019 Inactive Comments: NEEDS APPT FOR MORE REFILLS. Start: 10-09-2018 End: 04-22-2018 take 1 tablet by mouth once daily Levothyroxine Sodium 50 MCG Oral Tablet 1 Tablet qd for 90 days Quantity: 90 {Tablet} Refills: 0 Ordered: 09-Oct-2018 Rox Huerta DO, DO, Kathleen Start : 09-Oct-2018 End : 22-Apr-2018 Active Comments: NEEDS APPT FOR MORE REFILLS. Start: 10-09-2018 End: 04-22-2018 take 1 tablet by mouth once daily Levothyroxine Sodium 50 MCG Oral Tablet 1 Tablet qd for 90 days Quantity: 90 {Tablet} Refills: 0 Ordered: 09-Oct-2018 Rox Huerta DO, DO, Kathleen Start : 09-Oct-2018 End : 22-Apr-2018 Active Comments: NEEDS APPT FOR MORE REFILLS. Start: 10-09-2018 End: 04-22-2018 take 1 tablet by mouth once daily Levothyroxine Sodium 50 MCG Oral Tablet 1 Tablet qd for 90 days Quantity: 90 {Tablet} Refills: 0 Ordered: 09-Oct-2018 Rox Huerta DO, DO, Kathleen Start : 09-Oct-2018 End : 22-Apr-2018 Active Comments: NEEDS APPT FOR MORE REFILLS. Start: 10-09-2018 End: 04-22-2018 take 1 tablet by mouth once daily Levothyroxine Sodium 50 MCG Oral Tablet 1 Tablet qd for 90 days Quantity: 90 {Tablet} Refills: 0 Ordered: 09-Oct-2018 Rox Huerta DO, DO, Kathleen Start : 09-Oct-2018 End : 22-Apr-2018 Active Comments: NEEDS APPT FOR MORE REFILLS. Start: 10-09-2018 End: 04-22-2018 take 1 tablet by mouth once daily Levothyroxine Sodium 50 MCG Oral Tablet 1 Tablet qd for 90 days Quantity: 90 {Tablet} Refills: 0 Ordered: 09-Oct-2018 Rox Huerta DO, DO, Kathleen Start : 09-Oct-2018 End : 22-Apr-2018 Active Comments: NEEDS APPT FOR MORE REFILLS. Start: 10-09-2018 End: 04-22-2018 take 1 tablet by mouth once daily Levothyroxine Sodium 50 MCG Oral Tablet 1 Tablet qd for 90 days Quantity: 90 {Tablet} Refills: 0 Ordered: 09-Oct-2018 Rox Huerta DO, DO, Kathleen Start : 09-Oct-2018 End : 22-Apr-2018 Active Comments: NEEDS APPT FOR MORE REFILLS. Start: 10-09-2018 End: 04-22-2018 take 1 tablet by mouth once daily Levothyroxine Sodium 50 MCG Oral Tablet 1 Tablet qd for 90 days Quantity: 90 {Tablet} Refills: 0 Ordered: 09-Oct-2018 Rox Huerta DO, DO, Kathleen Start : 09-Oct-2018 End : 22-Apr-2018 Active Comments: NEEDS APPT FOR MORE REFILLS. Start: 10-09-2018 End: 04-22-2018 take 1 tablet by mouth once daily Levothyroxine Sodium 50 MCG Oral Tablet 1 Tablet qd for 90 days Quantity: 90 {Tablet} Refills: 0 Ordered: 09-Oct-2018 Rox Huerta DO, DO, Kathleen Start : 09-Oct-2018 End : 22-Apr-2018 Active Comments: NEEDS APPT FOR MORE REFILLS. Start: 10-09-2018 End: 04-22-2018 take 1 tablet by mouth once daily Levothyroxine Sodium 50 MCG Oral Tablet 1 Tablet qd for 90 days Quantity: 90 {Tablet} Refills: 0 Ordered: 09-Oct-2018 Rox Huerta DO, DO, Kathleen Start : 09-Oct-2018 End : 22-Apr-2018 Active Comments: NEEDS APPT FOR MORE REFILLS. Start: 10-09-2018 End: 04-22-2018 take 1 tablet by mouth once daily Levothyroxine Sodium 50 MCG Oral Tablet 1 Tablet qd for 90 days Quantity: 90 {Tablet} Refills: 0 Ordered: 09-Oct-2018 Rox Huerta DO, DO, Kathleen Start : 09-Oct-2018 End : 22-Apr-2018 Active Comments: NEEDS APPT FOR MORE REFILLS. Start: 10-09-2018 End: 04-22-2018 take 1 tablet by mouth once daily Levothyroxine Sodium 50 MCG Oral Tablet 1 Tablet qd for 90 days Quantity: 90 {Tablet} Refills: 0 Ordered: 09-Oct-2018 Rox Huerta DO, DO, Kathleen Start : 09-Oct-2018 End : 22-Apr-2018 Active Comments: NEEDS APPT FOR MORE REFILLS. Start: 10-09-2018 End: 04-22-2018 take 1 tablet by mouth once daily Levothyroxine Sodium 50 MCG Oral Tablet 1 Tablet qd for 90 days Quantity: 90 {Tablet} Refills: 0 Ordered: 09-Oct-2018 Rox Huerta DO, DO, Kathleen Start : 09-Oct-2018 End : 22-Apr-2018 Active Comments: NEEDS APPT FOR MORE REFILLS. Start: 07-12-2018 End: 04-22-2018 take 1 tablet by mouth once daily Levothyroxine Sodium 50 MCG Oral Tablet 1 Tablet qd for 90 days Quantity: 90 {Tablet} Refills: 0 Ordered: 12-Jul-2018 Rox Huerta DO, DO, Kathleen Start : 12-Jul-2018 End : 22-Apr-2018 Active Start: 07-12-2018 End: 04-22-2018 take 1 tablet by mouth once daily Levothyroxine Sodium 50 MCG Oral Tablet 1 Tablet qd for 90 days Quantity: 90 {Tablet} Refills: 0 Ordered: 12-Jul-2018 Rox Huerta DO, DO, Kathleen Start : 12-Jul-2018 End : 22-Apr-2018 Active Start: 04-16-2015 End: 08-20-2020 take 1 tablet by mouth once daily Levothyroxine 50 MCG tablet Discontinued 50 ug PO DAILY April 16, 2015 1:00am August 20, 2020 1:28pm thyroid Comment on above: NEEDS APPT FOR MORE REFILLS. 60 actuat tiotropium 0.0025 mg/actuat inhalation spray (20 sources) Anticholinergic Start: 08-21-19 take 1 puff(s) by inhalation once daily Tiotropium [place] (Spiriva Respimat) 2.5 mcg/actuation mist Active 2 PUFF INHALATION DAILY August 20, 2020 12:00am Start: 03-27-2012 End: 01-20-2016 take 1 capsule by inhalation once daily Spiriva HandiHaler 18 MCG Inhalation Capsule 1 Capsule qd for 0 days Quantity: 3 {Capsule} Refills: 3 Ordered: 20-Jan-2016 Ninoska Kemp RN Start : 27-Mar-2012 End : 20-Jan-2016 Inactive Vit C,Z-Zc-Ihowo-Lutein-Zeax an (Preservision Areds-2) 250-90-40-1 mg Capsule (20 sources) Start: 12-04-2021 take 2 capsules by mouth twice daily Vit C,P-As-Cjtjo-Lutein-Zeaxan (Preservision Areds-2) 250-90-40-1 mg Capsule Active 1 NMA PO TWICE A DAY December 04, 2021 12:00am eye health Start: 12-04-2021 take 2 capsules by m outh twice daily Vit C,L-Ac-Ssgsv-Lutein-Zeaxan (Preservision Areds-2) 250-90-40-1 mg Capsule Active 1 NMA PO TWICE A DAY December 04, 2021 12:00am Start: 12-04-2021 Vit C,E-Zn-Toll Testboard Worker jv-Bztduk-Dqkiqc (Preservision Areds-2) 250-90-40-1 mg Capsule Active 1 CAP PO TWICE A DAY December 03, 2021 11:00pm Start: 12-04-2021 Vit C,E-Zn-Toll Testboard Worker [id number]-Zqqppn-Kshepq (Preservision Areds-2) 250-90-40-1 mg Capsule Active 1 CAP PO TWICE A DAY December 04, 2021 12:00am Vitamin B Complex (2 sources) Start: 06-19-2023 take 1 tablet by mouth once daily Vitamin B Complex Active 1 TABLET PO DAILY June 19, 2023 12:00am Vitamin B Complex tablet (10 sources) Start: 06-19-2023 Vitamin B Comp tammie tablet Active 1 {tbl} PO DAILY June 19, 2023 12:00am Completed/Discontinued Medications Medication Drug Class(es) Dates Sig (Normalized) Sig (Original) acetaminophen 325 mg oral tablet (20 sources) Start: 06-01-2017 End: 01-18-2018 take 2 tablets by mouth every six hours as needed for pain Acetaminophen 325 MG tablet Discontinued 650 mg PO EVERY 6 HOURS NEEDED as needed for Pain, fever, headache 0 June 01, 2017 12:00am January 18, 2018 11:12am Start: 06-01-2017 End: 01-18-2018 take 650 mg by mouth every six hours as needed Acetaminophen Discontinued 650 MG PO EVERY 6 HOURS NEEDED June 01, 2017 12:00am January 18, 2018 11:12am albuterol 0.833 mg/ml / ipratropium bromide 0.167 mg/ml inhalation solution (20 sources) Anticholinergic, beta2-Adrenergic Agonist Start: 05-30-2017 End: 08-20-2020 take 1 mL by inhalation twice daily as needed for wheezing Ipratropium-Albuterol 3 ML solution for nebulization Discontinued 3 mL INHALATION TWICE A DAY as needed for Sob &/Or Wheezing May 30, 2017 12:00am August 20, 2020 1:38pm Start: 05-30-2017 End: 08-20-2020 take 1 mL by inhalation twice daily Ipratropium-Albuterol Discontinued 3 ML INHALATION TWICE A DAY May 30, 2017 12:00am August 20, 2020 1:38pm Start: 12-01-2016 End: 08-20-2020 take 1 puff(s) by inhalation twice daily Ipratropium-Albuterol Discontinued 1 PUFF INHALATION TWICE A DAY December 01, 2016 12:00am August 20, 2020 1:38pm Start: 01-20-2016 End: 08-20-2020 Ipratropium-Albuterol 1 PUFF inhaler Discontinued 1 NMA INHALATION TWICE A DAY December 01, 2016 12:00am August 20, 2020 1:38pm COPD Start: 01-20-2016 take 2 puff(s) by in halation twice daily Combivent Respimat 20-100 MCG/ACT Inhalation Aerosol Solution 2 (two) puffs bid for 30 days Quantity: 1 {Box} Refills: 4 Ordered: 20-Jan-2016 Rox Huerta DO, DO, Kathleen Start : 20-Jan-2016 Active take 18-103 ug by in halation once daily Ipratropium-Albuterol 18-103 MCG/ACT Inhalation Aerosol 1 qd (18-103 MCG/ACT) Active 24 hr ALPRAZolam 0.5 mg extended release oral tablet (19 sources) Benzodiazepine Start: 08-11-2015 End: 01-20-2016 take 1 tablet by mouth every twenty-four hours as needed ALPRAZolam ER 0.5 MG Oral Tablet Extended Release 24 Hour 1 Tablet ER 24HR bid/prn for 90 days Quantity: 120 {Tablet} Refills: 0 Ordered: 20-Jan-2016 Ninoska Kemp RN Start : 11-Aug-2015 End : 20-Jan-2016 Inactive Comments: one hundred and twenty Comment on above: one hundred and twen ty amiodarone hydrochloride 200 mg oral tablet (20 sources) Antiarrhythmic Start: 08-20-2020 End: 08-20-2020 Amiodarone 200 mg tablet Discontinued 100 mg PO DAILY August 20, 2020 1:29pm August 20, 2020 2:08pm Start: 08-20-2020 End: 08-20-2020 take 100 mg by mouth once daily Amiodarone Discontinue d 100 MG PO DAILY August 20, 2020 1:29pm August 20, 2020 2:08pm Start: 04-06-2020 End: 04-06-2020 Amiodarone 200 mg tablet Discontinued 100 mg PO DAILY April 06, 2020 11:35am April 06, 2020 11:59am Start: 04-06-2020 End: 04-06-2020 take 100 mg by mouth once daily Amiodarone Discontinue d 100 MG PO DAILY April 06, 2020 11:35am April 06, 2020 11:59am Start: 02-21-2020 End: 06-30-2024 take 1 tablet by mouth once daily Amiodarone 200 mg tablet Discontinued 200 mg PO DAILY 90 3 July 11, 2023 11:52am June 30, 2024 10:16am heart Start: 01-21-2020 End: 02-21-2020 take 1 tablet by mouth twice daily, then take 1 tablet by mouth once daily Amiodarone 200 MG tablet Discontinued 200 mg PO TWICE A DAY 42 0 January 21, 2020 1:00am February 21, 2020 9:17am 200 mg PO BID for 14 days, then 200 mg qd after that. amLODIPine 5 mg oral tablet (9 sources) Dihydropyridine Calcium Channel Virgilio Start: 07-29-2024 End: 09-04-2024 take 2.5 mg by mouth once daily Amlodipine 5 mg tablet Discontinued 2.5 mg PO daily July 29, 2024 12:00am September 04, 2024 2:04pm apixaban 5 mg oral tablet (20 sources) Factor Xa Inhibitor Start: 12-08-2019 End: 09-17-2024 take 1 tablet by mouth twice daily Apixaban 5 mg tablet Discontinued 5 mg PO TWICE A DAY 180 August 25, 2024 8:25am September 17, 2024 4:53pm blood thinner Start: 08-17-2019 End: 09-16-2019 take 2 tablets by mouth twice daily, then take 1 tablet by mouth twice daily Apixaban 5 MG tablets,dose pack Discontinued 10 mg PO TWICE A DAY 74 August 17, 2019 12:00am September 15, 2019 12:00am September 16, 2019 12:02am 10mg po BID x 7 days; then, 5mg po BID Start: 08-17-2019 End: 09-16-2019 take 10 mg by mouth twice daily, then take 5 mg by mouth twice daily Apixaban Discontinued 10 MG PO TWICE A DAY 74 August 16, 2019 11:00pm September 15, 2019 11:02pm 10mg po BID x 7 days; then, 5mg po BID Start: 08-17-2019 End: 09-16-2019 take 10 mg by mouth twice daily, then take 5 mg by mouth twice daily Apixaban Discontinued 10 MG PO TWICE A DAY 74 August 17, 2019 12:00am September 16, 2019 12:02am 10mg po BID x 7 days; then, 5mg po BID aspirin 81 mg delayed release oral tablet (20 sources) Platelet Aggregation Inhibitor, Nonsteroidal Anti-inflammatory Drug Start: 09-05-2017 End: 08-19-2019 take 1 tablet by mouth once daily Aspirin (Adult Aspirin Regimen) 81 mg tablet,delayed release (DR/EC) Discontinued 81 mg PO daily September 05, 2017 12:00am August 19, 2019 11:54am Start: 03-27-2012 End: 08-11-2015 take 1 tablet by mouth once daily ASPIRIN, 325MG (Oral Tablet) 1 Tablet qd for 0 days Quantity: 90 {Tablet} Refills: 0 Ordered: 11-Aug-2015 Gianna Pereira Start : 27-Mar-2012 End : 11-Aug-2015 Inactive atorvastatin 40 mg oral tablet (20 sources) HMG-CoA Reductase Inhibitor Start: 01-20-2020 End: 08-20-2020 Atorvastatin 40 mg tablet Discontinued 20 mg PO .QOD April 06, 2020 11:58am August 20, 2020 1:38pm cholesterol Start: 01-20-2020 End: 08-20-2020 take 20 mg by mouth every other day Atorvastatin Discontinued 20 MG PO .QOD April 06, 2020 11:58am August 20, 2020 1:38pm Start: 12-31-2017 End: 01-30-2018 take 1 tablet by mouth every other day Atorvastatin Calcium 10 MG Oral Tablet 1 (one) Tablet Tablet qod for 30 days Quantity: 30 {Tablet} Refills: 0 Ordered: 22-Feb-2018 Ninoska Kemp RN Start : 31-Dec-2017 End : 30-Jan-2018 Inactive Comments: giuliana morocho Start: 08-28-2017 End: 01-20-2020 take 1 tablet by mouth every other day Atorvastatin 40 mg tablet Discontinued 40 mg PO .every other day 90 August 28, 2017 5:19pm January 20, 2020 6:25pm Start: 08-28-2017 End: 08-28-2017 take 1 tablet by mouth once daily Atorvastatin 40 mg tablet Discontinued 40 mg PO daily 90 August 28, 2017 12:00am August 28, 2017 5:19pm Start: 06-01-2017 End: 08-02-2017 take 1 tablet by mouth at bedtime Atorvastatin 80 mg tablet Discontinued 80 mg PO AT BEDTIME 90 3 June 08, 2017 2:26pm July 16, 2017 9:16am Comment on above: per rashawn azithromycin 250 mg oral tablet (19 sources) Macrolide Antimicrobial Start: End: take 1 tablet by mouth once daily Zithromax Z-Nicolás 250 MG Oral Tablet tad Tablet qd for 0 days Quantity: 1 {Package} Refills: 0 Ordered: 21-May-2017 Slarb TRASH COLLECTOR SUPERVISOR, Donna Start : 05-Apr-2017 End : 21-May-2017 Inactive benzonatate 200 mg oral capsule (19 sources) Non-narcotic Antitussive Start: End: take 1 capsule by mouth three times daily as needed for cough Benzonatate 200 MG Oral Capsule 1 (one) Capsule tid prn cough for 0 days Quantity: 30 {Capsule} Refills: 0 Ordered: 21-May-2017 Donna Carrillo LPN Start : 22-Mar-2017 End : 21-May-2017 Inactive betamethasone 0.5 mg/ml / clotrimazole 10 mg/ml topical cream (19 sources) Azole Antifungal, Corticosteroid Start: 013 End: Lotrisone 1-0.05 % External Cream 1 Cream prn for 90 days Quantity: 1 {Cream} Refills: 3 Ordered: 20-Jan-2016 Ninoska Kemp RN Start : 27-Mar-2012 End : 20-Jan-2016 Inactive 60 actuat budesonide 0.16 mg/actuat / formoterol fumarate 0.0045 mg/actuat metered dose inhaler (19 sources) Corticosteroid, beta2-Adrenergic Agonist Start: 018 take 2 puff(s) by inhalation once daily Symbicort 160-4.5 MCG/ACT Inhalation Aerosol 2 (two) Puff Puff qd for 0 days Quantity: 1 {Inhalation} Refills: 0 Ordered: 21-Jan-2018 Ninoska Kemp RN Start : 31-Dec-2017 Active Comments: per sibilia Start: 12-31-2017 Symbicort 160- 4.5 MCG/ACT Inhalation Aerosol 2 (two) Puff Puff qd for 0 days Quantity: 1 {Inhalation} Refills: 0 Ordered: 21-Jan-2018 Ninoska Kemp LPN Start : 31-Dec-2017 Active Comments: per jacinda Comment on above: per jacinda busPIRone hydrochloride 7.5 mg oral tablet (20 sources) Start: 12-31-2017 take 0.5 tablet by mouth twice daily BusPIRone HCl 7.5 MG Oral Tablet 1/2 Tablet Tablet bid for 30 days Quantity: 60 {Tablet} Refills: 3 Ordered: 31-Dec-2017 Ninoska Kemp RN Start : 31-Dec-2017 Active Start: 05-30-2017 End: 06-08-2017 take 1 tablet by mouth twice daily Buspirone 7.5 MG tablet Discontinued 7.5 mg PO TWICE A DAY May 30, 2017 12:00am June 08, 2017 2:24pm ANXIETY/DEPRESSION calcium citrate 1040 mg oral tablet (19 sources) Start: 08-11-2015 End: 09-10-2015 take 1 tablet by mouth twice daily CALCIUM CITRATE, 250MG (Oral Tablet) 1 (one) Tablet bid for 30 days Quantity: 30 {Tablet} Refills: 0 Ordered: 11-Nov-2015 Rox Huerta DO, DO, Kathleen Start : 11-Aug-2015 End : 10-Sep-2015 Inactive cefdinir 300 mg oral capsule (20 sources) Cephalosporin Antibacterial Start: 12-06-2021 End: 05-05-2022 take 1 capsule by mouth twice daily Cefdinir 300 mg capsule Discontinued 300 mg PO TWICE A DAY 10 0 December 06, 2021 12:00am May 05, 2022 3:53pm celecoxib 200 mg oral capsule (20 sources) Nonsteroidal Anti-inflammatory Drug Start: 02-10-2013 End: 08-11-2015 take 1 capsule by mouth once daily CELEBREX, 200MG (Oral Capsule) 1 Capsule qd for 0 days Quantity: 90 {Capsule} Refills: 3 Ordered: 11-Aug-2015 Gianna Pereira Start : 10-Feb-2013 End : 11-Aug-2015 Inactive Comments: Mail order. Comment on above: Mail order. ciprofloxacin 250 mg oral tablet (19 sources) Quinolone Antimicrobial Start: 02-08-2016 End: 03-06-2016 take 1 tablet by mouth twice daily Ciprofloxacin HCl 250 MG Oral Tablet 1 (one) Tablet bid for 0 days Quantity: 20 {Tablet} Refills: 0 Ordered: 06-Mar-2016 Ninosak Kemp RN Start : 08-Feb-2016 End : 06-Mar-2016 Inactive clopidogrel 75 mg oral tablet (20 sources) P2Y12 Platelet Inhibitor Start: 11-26-2019 End: 12-08-2019 take 1 tablet by mouth once daily Clopidogrel 75 mg tablet Discontinued 75 mg PO DAILY November 26, 2019 12:00am December 08, 2019 2:38pm Start: 06-01-2017 End: 08-19-2019 take 1 tablet by mouth once daily Clopidogrel 75 mg tablet Discontinued 75 mg PO DAILY April 11, 2019 10:02am August 19, 2019 11:52am codeine phosphate 2 mg/ml / guaiFENesin 20 mg/ml oral solution (19 sources) Opioid Agonist Start: 03-16-2014 End: 08-11-2015 take 1 [tsp_us] by mouth once daily at bedtime as needed for cough CHERATUSSIN AC, 100-10MG/5ML (Oral Syrup) 1 (one) Teaspoon Teaspoon qhs prn for cough for 0 days Quantity: 6 {Ounce} Refills: 0 Ordered: 11-Aug-2015 Gianna ePreira Start : 16-Mar-2014 End : 11-Aug-2015 Inactive denosumab 60 mg/ml injectable solution (19 sources) RANK Ligand Inhibitor Start: 09-27-2017 End: 09-27-2017 Prolia 60 MG/ML Subcutaneous Solution 1 (one) Milliliter q 6mo for 0 days Quantity: 1 {Milliliter} Refills: 1 Ordered: 27-Sep-2017 Rox Huerta DO, DO, Kathleen Start : 27-Sep-2017 End : 27-Sep-2017 Inactive Start: 09-27-2017 End: 09-27-2017 Prolia 60 MG/ML Subcutaneous Solution 1 (one) Milliliter q 6mo for 0 days Quantity: 1 {Milliliter} Refills: 1 Ordered: 27-Sep-2017 Rox Huerta DO, DO, Kathleen Start : 27-Sep-2017 End : 27-Sep-2017 Inactive Fluticasone Propion-Salmeterol (20 sources) Corticosteroid, beta2-Adrenergic Agonist Start: 12-01-2016 End: 07-17-2017 take 1 dose by inhalation twice daily Fluticasone Propion-Salmeterol 1 EACH blister with device Discontinued 1 NMA IH TWICE A DAY December 01, 2016 12:00am July 17, 2017 10:54am ALLERGIES Start: 12-01-2016 End: 07-17-2017 take 1 dose by inhalation twice daily Fluticasone Propion-Salmeterol 1 EACH blister with device Discontinued 1 NMA IH TWICE A DAY December 01, 2016 12:00am July 17, 2017 10:54am Start: 12-01-2016 End: 07-17-2017 Fluticasone Propion-Salmeter ol Discontinued 1 EACH IH TWICE A DAY November 30, 2016 11:00pm July 17, 2017 9:54am Start: 12-01-2016 End: 07-17-2017 Fluticasone Propion-Salmeter ol Discontinued 1 EACH IH TWICE A DAY December 01, 2016 12:00am July 17, 2017 10:54am Start: 06-29-2016 End: 12-31-2017 Advair Diskus 500-50 MCG/DOS E Inhalation Aerosol Powder Breath Activated 1 Aero Pow Br Act bid for 90 days Quantity: 3 {Box} Refills: 3 Ordered: 31-Dec-2017 Rox Huerta DO, DO, Kathleen Start : 29-Jun-2016 End : 31-Dec-2017 Inactive gabapentin 300 mg oral capsule (19 sources) Anti-epileptic Agent Start: 11-12-2014 End: 08-11-2015 NEURONTIN, 300MG (Oral Capsule) 1 (one) Capsule Capsule qhs for 5 days then bid for 0 days Quantity: 60 {Capsule} Refills: 3 Ordered: 11-Aug-2015 Gianna Pereira Start : 12-Nov-2014 End : 11-Aug-2015 Inactive halobetasol propionate 0.5 mg/ml topical cream (19 sources) Corticosteroid Start: 07-28-2015 End: 08-04-2015 ULTRAVATE, 0.05% (External Cream) apply to affected areas Cream sparingly bid for 7 days Quantity: 45 {grams} Refills: 0 Ordered: 28-Jul-2015 Rox Huerta DO, DO, Kathleen Start : 28-Jul-2015 End : 04-Aug-2015 Inactive hydroCHLOROthiazide 25 mg oral tablet (8 sources) Thiazide Diuretic Start: 03-14-2019 take 1 tablet by mouth once daily in the morning hydroCHLOROthiazide 25 MG Oral Tablet 1 (one) Tablet qam for 30 days Quantity: 30 {Tablet} Refills: 2 Ordered: 14-Mar-2019 Rox Huerta DO, DO, Kathleen Start : 14-Mar-2019 Active Start: 12-05-2018 take 1 tablet by casey th once daily in the morning hydroCHLOROthiazide 25 MG Oral Tablet 1 (one) Tablet qam for 0 days Quantity: 30 {Tablet} Refills: 2 Ordered: 05-Dec-2018 Rox Huerta DO, DO, Kathleen Start : 05-Dec-2018 Active Start: 11-08-2018 take 1 tablet by casey th once daily in the morning hydroCHLOROthiazide 25 MG Oral Tablet 1 (one) Tablet qam for 0 days Quantity: 30 {Tablet} Refills: 2 Ordered: 05-Dec-2018 Rox Huerta DO, DO, Kathleen Start : 05-Dec-2018 Active Ipratropium-Albuterol 18-103 MCG/ACT Inhalation Aerosol (1 source) take 18-103 ug by inhalation once daily Ipratropium-Albuterol 18-103 MCG/ACT Inhalation Aerosol 1 qd (18-103 MCG/ACT) Active 24 hr isosorbide mononitrate 30 mg extended release oral tablet (20 sources) Nitrate Vasodilator Star t: 08-17 18 End: 10-05 19 take 1 tablet by mouth once daily in the morning, then take 1 tablet by mouth every twenty-four hours Isosorbide Mononitrate 30 mg tablet extended release 24 hr Discontinued 30 mg PO EVERY MORNING 15 02June 24, 2018 8:55am July 23, 2018 1:29pm isosorbide dinitrate 30 mg oral tablet (19 sources) Nitrate Vasodilator Star t: 12-17 18 End: 12-06 19 take 1 tablet by mouth once daily in the morning Isosorbide Dinitrate 30 MG Oral Tablet 1 (one) Tablet Tablet qam for 0 days Quantity: 30 {Tablet} Refills: 0 Ordered: 25-Oct-2018 Ninoska Kemp RN Start : 31-Dec-2017 End : 25-Oct-2018 Inactive levoFLOXacin 500 mg oral tablet (19 sources) Quinolone Antimicrobial Star t: 07-06 18 End: 03-19 18 take 1 tablet by mouth once daily Levaquin 500 MG Oral Tablet 1 (one) Tablet daily for 7 days Quantity: 7 {Tablet} Refills: 0 Ordered: 22-Mar-2017 Rox Huerta DO, DO, Kathleen Start : 22-Mar-2017 End : 29-Mar-2017 Inactive lisinopril 20 mg oral tablet (20 sources) Angiotensin Converting Enzyme Inhibitor Star t: 04-19 End: 08-17 take 1 tablet by mouth once daily Lisinopril 20 mg tablet Discontinued 20 mg PO DAILY October 29, 2023 8:02am September 04, 2024 2:04pm Start: 10-25-2018 take 1 tablet by casey th once daily Lisinopril 20 MG Oral Tablet 1 (one) Tablet daily for 90 days Quantity: 90 {Tablet} Refills: 3 Ordered: 25-Oct-2018 Rox Huerta DO, DO, Kathleen Start : 25-Oct-2018 Active Start: 12-31-2017 take 1 tablet by casey th once daily Lisinopril 20 MG Oral Tablet 1 (one) Tablet daily for 90 days Quantity: 90 {Tablet} Refills: 3 Ordered: 31-Dec-2017 Rox Huerta DO, DO, Kathleen Start : 31-Dec-2017 Active Start: 04-16-2015 End: 05-05-2022 take 1 tablet by mouth once daily Lisinopril 10 MG tablet Discontinued 10 mg PO DAILY 30 0 June 01, 2017 12:00am June 08, 2017 2:27pm loratadine 10 mg oral tablet (19 sources) Start: 03-27-2012 End: 08-11-2015 take 1 tablet by mouth once daily LORATADINE, 10MG (Oral Tablet) 1 Tablet qd for 90 days Quantity: 90 {Tablet} Refills: 3 Ordered: 11-Aug-2015 Gianna Pereira Start : 27-Mar-2012 End : 11-Aug-2015 Inactive meclizine hydrochloride 25 mg chewable tablet (20 sources) Antiemetic Start: 10-11-2023 End: 07-29-2024 take 1 tablet by mouth three times daily as needed for dizziness Meclizine (Antivert) 25 mg tablet,chewable Discontinued 25 mg PO THREE TIMES A DAY as needed for dizziness 20 5 0 October 11, 2023 4:15pm July 29, 2024 1:35pm Start: 08-20-2020 End: 06-19-2023 take 1 tablet by mouth once daily as needed Meclizine 25 mg tablet Discontinued 25 mg PO DAILY as needed for Vertigo August 20, 2020 12:00am June 19, 2023 10:54am Start: 08-28-2016 End: 05-21-2017 take 1 tablet by mouth every eight hours as needed Meclizine HCl 25 MG Oral Tablet 1 (one) Tablet Tablet q 8 hr prn dizzy for 0 days Quantity: 30 {Tablet} Refills: 0 Ordered: 21-May-2017 Donna Carrillo LPN Start : 28-Aug-2016 End : 21-May-2017 Inactive Start: 03-27-2012 End: 08-11-2015 take 1 tablet by mouth four times daily MECLIZINE HCL, 25MG (Oral Tablet Chewable) 1 Tablet Chewable qid for 90 days Quantity: 360 {Tablet_Chewable} Refills: 1 Ordered: 11-Aug-2015 Gianna Pereira Start : 27-Mar-2012 End : 11-Aug-2015 Inactive meloxicam 7.5 mg oral tablet (19 sources) Nonsteroidal Anti-inflammatory Drug Start: 07-29-2013 End: 08-11-2015 take 1 tablet by mouth once daily for pain MELOXICAM, 7.5MG (Oral Tablet) 1 (one) Tablet Tablet daily for back pain for 0 days Quantity: 30 {Tablet} Refills: 0 Ordered: 11-Aug-2015 Gianna Pereira Start : 29-Jul-2013 End : 11-Aug-2015 Inactive metaxalone 800 mg oral tablet (19 sources) Start: 11-12-2014 End: 08-11-2015 take 1 tablet by mouth twice daily as needed METAXALONE, 800MG (Oral Tablet) 1 (one) Tablet Tablet bid prn for 0 days Quantity: 20 {Tablet} Refills: 0 Ordered: 11-Aug-2015 Gianna Pereira Start : 12-Nov-2014 End : 11-Aug-2015 Inactive 24 hr metFORMIN hydrochloride 500 mg extended release oral tablet (19 sources) Biguanide Start: 06-10-2012 End: 06-10-2012 take 1 tablet by mouth once daily METFORMIN HCL ER, 500MG (Oral Tablet Extended Release 24 Hour) 1 Tablet ER 24HR qd for 0 days Quantity: 30 {Tablet_ER_24HR} Refills: 5 Ordered: 10-Jun-2012 Vera Bhatt MD Start : 10-Jun-2012 End : 10-Jun-2012 Inactive Comments: ?rash Comment on above: ?rash metoprolol tartrate 25 mg oral tablet (20 sources) beta-Adrenergic Virgilio Start: 02-11-2024 End: 09-04-2024 take 1 tablet by mouth twice daily Metoprolol Tartrate 25 mg tablet Discontinued 25 mg PO TWICE A DAY February 11, 2024 1:00am September 04, 2024 2:02pm Start: 06-19-2023 End: 09-24-2023 take 2 tablets by mouth once daily Metoprolol Succinate 50 mg tablet extended release 24 hr Discontinued 25 mg PO DAILY July 19, 2023 11:30am September 24, 2023 10:36am Start: 06-19-2023 take 25 mg by mouth once daily Metoprolol Succinate Active 25 MG PO DAILY June 19, 2023 12:00am Start: 05-05-2022 End: 06-19-2023 take 1 tablet by mouth twice daily Metoprolol Tartrate 25 mg tablet Discontinued 25 mg PO TWICE A DAY July 17, 2022 9:21am June 19, 2023 10:52am BP Start: 12-04-2021 End: 05-05-2022 Metoprolol Tartrate 50 mg Ta blet Discontinued 25 mg PO DAILY December 04, 2021 12:00am May 05, 2022 4:47pm heart Start: 12-04-2021 End: 05-05-2022 take 25 mg by mouth once daily Metoprolol Tartrate Dis continued 25 MG PO DAILY December 04, 2021 12:00am May 05, 2022 4:47pm Start: 08-20-2020 End: 09-30-2020 Metoprolol Tartrate 50 mg ta blet Discontinued 25 mg PO TWICE A DAY August 20, 2020 12:00am September 30, 2020 4:58pm Start: 08-20-2020 End: 09-30-2020 take 25 mg by mouth twice daily Metoprolol Tartrate Di scontinued 25 MG PO TWICE A DAY August 20, 2020 12:00am September 30, 2020 4:58pm Start: 04-06-2020 End: 08-20-2020 take 1 tablet by mouth twice daily Metoprolol Tartrate 25 mg tablet Discontinued 25 mg PO TWICE A DAY April 06, 2020 12:00pm August 20, 2020 1:31pm bp Start: 01-20-2020 End: 04-06-2020 Metoprolol Tartrate 25 MG ta blet Discontinued 12.5 mg PO TWICE A DAY January 20, 2020 1:00am April 06, 2020 12:02pm bp Start: 01-20-2020 End: 04-06-2020 take 12.5 mg by mouth twice daily Metoprolol Tartrate Discontinued 12.5 MG PO TWICE A DAY January 20, 2020 1:00am April 06, 2020 12:02pm Start: 12-08-2019 End: 12-15-2019 take 1 tablet by mouth twice daily Metoprolol Tartrate 50 mg tablet Discontinued 50 mg PO TWICE A DAY 60 December 08, 2019 12:00am December 15, 2019 3:55pm Start: 06-01-2017 End: 12-08-2019 Metoprolol Tartrate 25 mg ta blet Discontinued 12.5 mg PO TWICE A DAY 90 July 17, 2019 10:31am December 08, 2019 2:38pm Start: 06-01-2017 End: 12-08-2019 take 12.5 mg by mouth twice daily Metoprolol Tartrate Discontinued 12.5 MG PO TWICE A DAY July 17, 2019 10:31am December 08, 2019 2:38pm take 0.5 tablet by m outh twice daily Metoprolol Tartrate 25 MG Oral Tablet 1/2 bid (25 MG) Active Uu-Xz-Ibge-Fa-Herbal Cmplx#1 90 (Vitamin D3 Complete) 18 mg iron-800 mcg-150 mg Tablet (16 sources) Start: 07-17-2022 End: 06-19-2023 Se-Px-Tavq-Fa-Herbal Cmplx#1 90 (Vitamin D3 Complete) 18 mg iron-800 mcg-150 mg Tablet Discontinued 1 {tbl} PO DAILY July 17, 2022 12:00am June 19, 2023 10:54am SUPPLEMENT Start: 07-17-2022 End: 06-19-2023 Yp-Yz-Rcvv-Fa-Herbal Cmplx#1 90 (Vitamin D3 Complete) 18 mg iron-800 mcg-150 mg Tablet Discontinued 1 {tbl} PO DAILY July 17, 2022 12:00am June 19, 2023 10:54am Start: 07-17-2022 End: 06-19-2023 take 1 tablet by mouth once daily Ja-Cw-Cyxo-Fa-Herbal Cmplx#190 (Vitamin D3 Complete) 18 mg iron-800 mcg-150 mg Tablet Discontinued 1 TABLET PO DAILY July 17, 2022 12:00am June 19, 2023 10:54am Start: 07-17-2022 take 1 tablet by casey th once daily Tr-Dy-Wmhr-Fa-Herbal Cmplx#190 (Vitamin D3 Complete) 18 mg iron-800 mcg-150 mg Tablet Active 1 TABLET PO DAILY July 16, 2022 11:00pm Start: 07-17-2022 take 1 tablet by casey th once daily Xt-Fi-Yfrr-Fa-Herbal Cmplx#190 (Vitamin D3 Complete) 18 mg iron-800 mcg-150 mg Tablet Active 1 TABLET PO DAILY July 17, 2022 12:00am nitrofurantoin, macrocrystals 25 mg / nitrofurantoin, monohydrate 75 mg oral capsule (10 sources) Nitrofuran Antibacterial Start: 10-11-2023 End: 02-11-2024 take 1 capsule by mouth twice daily at mealtime Nitrofurantoin Monohyd/M-Cryst (Macrobid) 100 mg capsule Discontinued 100 mg PO TWICE A DAY 10 5 0 October 11, 2023 12:00am February 11, 2024 3:10pm must administer with a meal/food oseltamivir 75 mg oral capsule (19 sources) Neuraminidase Inhibitor Start: 03-16-2014 End: 03-21-2014 take 1 capsule by mouth twice daily TAMIFLU, 75MG (Oral Capsule) 1 (one) Capsule Capsule bid for 5 days Quantity: 10 {Capsule} Refills: 0 Ordered: 16-Mar-2014 Libia Lama CNP Start : 16-Mar-2014 End : 21-Mar-2014 Inactive oxyCODONE hydrochloride 5 mg oral tablet (16 sources) Opioid Agonist Start: 07-25-2022 End: 06-19-2023 take 1 tablet by mouth every eight hours as needed for pain Oxycodone 5 mg Tablet Discontinued 5 mg PO EVERY 8 HOURS NEEDED as needed for Pain Score 4-10 9 3 0 July 25, 2022 June 19, 2023 10:54am Postoperative pain Other acute postprocedural pain pravastatin sodium 20 mg oral tablet (12 sources) HMG-CoA Reductase Inhibitor Start: 06-19-2023 End: 07-29-2024 take 1 tablet by mouth once daily Pravastatin 20 mg tablet Discontinued 20 mg PO daily June 19, 2023 12:00am July 29, 2024 1:33pm predniSONE 10 mg oral tablet (20 sources) Start: 04-05-2017 End: 05-21-2017 PredniSONE 10 MG Oral Tablet 1 (one) Tablet 1bidx 2 days, 1 daily x 2 days, 1/2 daily x 4 days for 0 days Quantity: 10 {Tablet} Refills: 0 Ordered: 21-May-2017 Donna Carrillo LPN Start : 05-Apr-2017 End : 21-May-2017 Inactive Start: 06-15-2016 End: 06-20-2016 take 1 tablet by mouth once daily PredniSONE 10 MG Oral Tablet 1 (one) Tablet daily for 5 days Quantity: 5 {Tablet} Refills: 0 Ordered: 15-Jun-2016 Ninoska Iverson Start : 15-Jun-2016 End : 20-Jun-2016 Inactive Start: 02-17-2015 End: 02-27-2015 PREDNISONE, 20MG (Oral Table t) 1 (one) Tablet Tablet bid for 2days then qd for 4days then 1/2 tab qd for 4 days for 10 days Refills: 0 Ordered: 17-Feb-2015 Rox Huerta DO, DO, Kathleen Start : 17-Feb-2015 End : 27-Feb-2015 Inactive Start: 06-11-2012 End: 06-11-2013 PREDNISONE, 20MG (Oral Table t) 2 (two) Tablet uad for 10 days Refills: 0 Ordered: 11-Jun-2013 Ninoska Kemp RN Start : 11-Jun-2012 End : 11-Jun-2013 Inactive sertraline 25 mg oral tablet (20 sources) Serotonin Reuptake Inhibitor Start: 02-11-2024 End: 07-29-2024 take 1 tablet by mouth once daily Sertraline (Zoloft) 25 mg tablet Discontinued 25 mg PO daily February 11, 2024 1:00am July 29, 2024 1:33pm Start: 05-21-2013 End: 08-11-2015 take 1.5 tablets by mouth once daily SERTRALINE HCL, 100MG (Oral Tablet) 1.5 Tablet qd for 0 days Quantity: 135 {Tablet} Refills: 3 Ordered: 11-Aug-2015 Gianna Pereira Start : 21-May-2013 End : 11-Aug-2015 Inactive Comments: new dose Comment on above: new dose simvastatin 40 mg oral tablet (19 sources) HMG-CoA Reductase Inhibitor Start: 12-27-2012 End: 08-11-2015 take 1 tablet by mouth once daily SIMVASTATIN, 40MG (Oral Tablet) 1 Tablet qd for 0 days Quantity: 90 {Tablet} Refills: 3 Ordered: 11-Aug-2015 Gianna Pereira Start : 27-Dec-2012 End : 11-Aug-2015 Inactive traMADol hydrochloride 50 mg oral tablet (20 sources) Opioid Agonist Start: 05-24-2015 End: 08-11-2015 take 1 tablet by mouth every six hours as needed TRAMADOL HCL, 50MG (Oral Tablet) 1 Tablet q 6 hr prn for 0 days Quantity: 10 {Tablet} Refills: 0 Ordered: 11-Aug-2015 Gianna Pereira Start : 24-May-2015 End : 11-Aug-2015 Inactive Comments: ten Start: 01-07-2015 End: 08-11-2015 take 1 tablet by mouth four times daily ULTRAM, 50MG (Oral Tablet) 1 (one) Tablet qid for 30 days Refills: 0 Ordered: 11-Aug-2015 Gianna Pereira Start : 07-Jan-2015 End : 11-Aug-2015 Inactive Comment on above: ten vitamin b6 50 mg oral tablet (20 sources) Start: 01-20-2020 End: 05-05-2022 take 1 tablet by mouth once daily Pyridoxine (Vitamin B6) 50 MG tablet Discontinued 50 mg PO DAILY January 20, 2020 1:00am May 05, 2022 3:53pm supplement Problems Active Problems Problem Classification Problem Date Documented Da te Episodic/Chronic Abdominal pain (20 sources) Acute abdominal pain; Translations: [Right upper quadrant pain] Onset: 5 Resolved: 4 02-01-2015 Episodic Acute myocardial infarction (20 sources) Acute non-ST segment elevation myocardial infarction; Translations: [Acute myocardial infarction] Onset: 8 01-21-2018 Chronic Comment on above: 06/03 s/p stent circumflex artery ( 80%blockage) 07/04 on plavix for one yearDr Rashawn Anxiety disorders (20 sources) Anxiety; Translations: [Acute stress disorder] 01-21-2018 Chronic Asthma (20 sources) Mild intermittent asthma; Translations: [Exacerbation of asthma] 01-21-2018 Chronic Comment on above: sees sibila Asthma (20 sources) Asthma Cardiac dysrhythmias (20 sources) Paroxysmal atrial flutter; Translations: [Unspecified atrial flutter] Onset: 0 Chronic Comment on above: The patient is on am iodarone 200 mg daily with metoprolol. The patient is currently tolerating her medical regiment. She denies any nuisance bleeding. We discussed spreading out her metoprolol and lisinopril if she continues to be lightheaded and dizzy I would discontinue the metoprolol completely. She does have an elevated TSH and this is managed by her primary service. Chronic obstructive pulmonary disease and bronchiectasis (20 sources) Pulmonary emphysema; Translations: [Chronic obstructive lung disease] Resolved: 6 01-21-2018 Chronic Chronic obstructive pulmonary disease and bronchiectasis (20 sources) Bronchitis; Translations: [Bronchitis] Resolved: 8 09-27-2017 Episodic Conditions associated with dizziness or vertigo (20 sources) Vertigo; Translations: [Dizziness and giddiness] Onset: 4 07-04-2017 Episodic Comment on above: improving but has ap pt for eply on sunday i thkn hypoglymeia - - will snack while making dinner bc large gap btw lunch and idnner and take trylenol pill before do gardening instead of after and when eat fruit snack eat prot with it-- Conduction disorders (20 sources) Atrioventricular block, unspecified; Translations: [Cardiac pacemaker in situ] Onset: 6 01-21-2018 Chronic Comment on above: Pacemaker implant ; Generator change 04/19/15 Patient has complete heart block and is pacer dependent. The pacemaker device check was normal May 31, 2023. She has 1.4 years of battery life. Coronary atherosclerosis and other heart disease (20 sources) Coronary atherosclerosis of unspecified type of vessel, [place] or graft; Translations: [Coronary atherosclerosis] 01-21-2018 Chronic Comment on above: Patient has a histor y of coronary disease status post remote stenting. She denies any anginal type symptoms the patient is intolerant of aspirin due to her GI upset she is currently on apixaban 5 mg twice daily she has a history of pulmonary embolus July 2019. Deficiency and other anemia (1 source) Anemia, unspecified; Translations: [Anemia, unspecified] Onset: 5 Episodic Diabetes mellitus without complication (20 sources) Abnormal glucose tolerance test; Translations: [Abnormal glucose tolerance test] Resolved: 6 10-05-2016 Episodic Diseases of white blood cells (20 sources) Leukocytosis; Translations: [Elevated white blood cell count, unspecified] 01-05-2022 Chronic Comment on above: Has resolved. Disorders of lipid metabolism (20 sources) Dyslipidemia; Translations: [Hyperlipidemia] 01-21-2018 Chronic Esophageal disorders (19 sources) Gastroesophageal reflux disease; Translations: [Chronic GERD] 01-21-2018 Chronic Comment on above: pt wants to try qod - or otc str pt wants to try qod - or otc str--- prevacid was working but now no longer otc and others arent working ( own brand etc ) tums dialy so will do prevacid rx Esophageal disorders (20 sources) Esophageal disorders Essential hypertension (20 sources) Hypertensive disorder; Translations: [Benign essential hypertension] Onset: 5 05-21-2017 Chronic Comment on above: new pacemaker Patient reports low blood pressures in the morning when she first gets up that slowly rise up in the 150 systolic range over the day. The blood pressure in the office today was 141/76. Fever of unknown origin (20 sources) Fever with chills; Translations: [Fever and chills] Resolved: 8 09-27-2017 Episodic Comment on above: did /RSV study Fluid and electrolyte disorders (20 sources) Dehydration; Translations: [Dehydration] Resolved: 8 09-27-2017 Episodic Genitourinary symptoms and ill-defined conditions (20 sources) Polyuria; Translations: [Increased frequency of urination] Resolved: 7 10-05-2016 Episodic Comment on above: prob multifactorial -- prolapse, aging, will ck sugars --- HAIC 5.3 so will refer to urology for treatment options: sling?, shannon valentina laser if atrohy is cause?, or pacemaker in bladder ro rx Headache; including migraine (20 sources) Headache; Translations: [Headache] 12-05-2021 Episodic Heart valve disorders (20 sources) Mitral valve prolapse; Translations: [Nonrheumatic mitral (valve) prolapse] 08-19-2019 Chronic Immunizations and screening for infectious disease (20 sources) Need for prophylactic vaccination and inoculation against influenza Episodic Influenza (20 sources) Influenza Malaise and fatigue (20 sources) Fatigue; Translations: [Asthenia] Resolved: 7 02-05-2017 Episodic Comment on above: took female stress b uster kit after loss of adn stressful situ and doing great Normal and/or delivery (19 sources) History of past delivery; Translations: [Vaginal Delivery] 01-21-2018 Episodic Comment on above: [id number] Nutritional deficiencies (20 sources) Vitamin D deficiency; Translations: [Vitamin D deficiency] 01-21-2018 Chronic Occlusion or stenosis of precerebral arteries (20 sources) Bilateral stenosis of carotid arteries; Translations: [Occlusion and stenosis of bilateral carotid arteries] 01-20-2020 Chronic Osteoarthritis (20 sources) Osteoarthritis; Translations: [Osteoarthritis] 01-21-2018 Chronic Comment on above: gets upset stomach o n nsaid or even her asa dauily -- takes tylenol products but not much relief for oa Osteoporosis (20 sources) Other osteoporosis; Translations: [Osteoporosis] 01-21-2018 Chronic Comment on above: prolia not covered - - considered boniva -- caltrate w d and wt bearing exercise for now -- per patient Other aftercare (18 sources) Long-term current use of anticoagulant; Translations: [hand heel seat fitter (current) use of anticoagulants] 09-24-2023 Episodic Other aftercare (1 source) hand heel seat fitter (current) use of anticoagulants; Translations: [snf (current) use of anticoagulants] Onset: 5 Episodic Other bone disease and musculoskeletal deformities (20 sources) Costal chondritis; Translations: [Chondrocostal junction syndrome [Tietze]] 01-05-2022 Episodic Comment on above: improving Other bone disease and musculoskeletal deformities (1 source) Chondrocostal junction syndrome [Tietze]; Translations: [Tietze's disease] 01-05-2022 Episodic Other connective tissue disease (12 sources) Trochanteric bursitis; Translations: [Greater trochanteric bursitis, right] 10-25-2018 Episodic Other connective tissue disease (8 sources) Iliotibial band friction syndrome; Translations: [Iliotibial band syndrome of both sides] 11-08-2018 Episodic Other connective tissue disease (20 sources) Foot pain; Translations: [Pain in left foot] 07-12-2018 Episodic Other diseases of kidney and ureters (17 sources) Renal impairment; Translations: [Renal insufficiency] 01-21-2018 Episodic Other ear and sense organ disorders (19 sources) Unspecified hearing loss; Translations: [Hearing decreased] 01-21-2018 Chronic Other ear and sense organ disorders (19 sources) Impacted cerumen; Translations: [Cerumen impaction] 01-21-2018 Episodic Other endocrine disorders (20 sources) Hypoglycemia; Translations: [Hypoglycemia] 01-21-2018 Chronic Other gastrointestinal disorders (20 sources) Irritable bowel syndrome; Translations: [Irritable Bowel Syndrome] 01-21-2018 Chronic Other injuries and conditions due to external causes (10 sources) Injury of head; Translations: [Other specified injuries of head, initial encounter] 09-24-2023 Episodic Other liver diseases (20 sources) Fatty liver; Translations: [Steatosis of liver] 01-21-2018 Chronic Other liver diseases (20 sources) Jaundice; Translations: [Jaundice (Renamed from Icterus)] Resolved: 3 04-30-2013 Episodic Other lower respiratory disease (19 sources) Dyspnea on exertion; Translations: [SOB (shortness of breath) on exertion] 01-21-2018 Episodic Other lower respiratory disease (20 sources) Cough; Translations: [Cough] 01-21-2018 Episodic Other nervous system disorders (16 sources) Postoperative pain ; Translations: [Other acute postprocedural pain] 07-25-2022 Episodic Other nutritional; endocrine; and metabolic disorders (20 sources) Hypercalcemia; Translations: [Hypercalcemia] Resolved: 8 01-21-2018 Chronic Other nutritional; endocrine; and metabolic disorders (20 sources) Excessive thirst; Translations: [Polydipsia] Resolved: 7 02-05-2017 Episodic Other skin disorders (19 sources) Eruption; Translations: [Rash] 01-21-2018 Episodic Comment on above: etiology - anxiety a nd nervous rash -- excessive dry skin adn scratching Other skin disorders (1 source) Localized swelling, mass and lump, neck; Translations: [Localized swelling, mass and lump, neck] Onset: 5 Episodic Other upper respiratory disease (20 sources) Epistaxis; Translations: [Bleeding from nose] 10-25-2018 Episodic Comment on above: hi bp -- also needs moisuture-- saline nasal spr and humidifier Pulmonary heart disease (20 sources) Pulmonary embolism; Translations: [Other pulmonary embolism without acute cor pulmonale] Onset: 0 08-18-2019 Episodic Residual codes; unclassified (18 sources) Family history of diabetes mellitus Episodic Residual codes; unclassified (20 sources) Memory loss; Translations: [Memory impairment] 01-21-2018 Episodic Residual codes; unclassified (18 sources) H/O: hysterectomy; Translations: [Hysterectomy] 01-21-2018 Episodic Residual codes; unclassified (18 sources) Postmenopausal state; Translations: [Postmenopausal (Renamed from Postmenopausal status)] 01-21-2018 Episodic Residual codes; unclassified (16 sources) Body mass index (BMI) 24.0-24.9, adult; Translations: [Body mass index (BMI) 23.0-23.9, adult] Resolved: 9 09-27-2017 Episodic Residual codes; unclassified (18 sources) Needs influenza immunization; Translations: [NEED FOR PROPHYLACTIC VACCINATION AND INOCULATION AGAINST INFLUENZA (V04.81) (Renamed from NEED FOR PROPHYLACTIC VACCINATION AND INOCULATION AGAINST INFLUENZA)] 01-21-2018 Episodic Residual codes; unclassified (18 sources) FH: Diabetes mellitus; Translations: [FAMILY HISTORY OF DIABETES MELLITUS] 01-21-2018 Episodic Residual codes; unclassified (12 sources) Noncompliance with medication regimen; Translations: [Noncompliance with medications] 10-25-2018 Episodic Residual codes; unclassified (14 sources) Computed tomography result abnormal Episodic Residual codes; unclassified (10 sources) Multiple somatic complaints; Translations: [Other general symptoms and signs] 10-19-2023 Episodic Screening or history of mental health and substance abuse (19 sources) Tobacco use and exposure - finding; Translations: [History of tobacco abuse] 01-21-2018 Chronic Syncope (20 sources) Near syncope; Translations: [Syncope and collapse] 08-18-2019 Episodic Thyroid disorders (19 sources) Hypothyroidism; Translations: [Adult hypothyroidism] 01-21-2018 Chronic Unclassified (20 sources) Other specified abnormal findings of blood chemistry; Translations: [Breast neoplasm screening status] Resolved: 7 02-05-2017 Episodic Comment on above: mamm up to date Unclassified (20 sources) Chill; Translations: [Body mass index (BMI) 23.0-23.9, adult] Resolved: 8 01-20-2016 Episodic Unclassified (20 sources) Unclassified (20 sources) Nonsmoker; Translations: [Non-smoker] 01-21-2018 Unclassified (20 sources) BMI 22.0-22.9, adult Unclassified (20 sources) Benign essential HTN Unclassified (20 sources) Emphysema of lung Unclassified (20 sources) Adult hypothyroidism Unclassified (20 sources) CAD (coronary artery disease) (414.00) Unclassified (20 sources) Pacemaker 01-21-2018 Unclassified (20 sources) Encounter for screening mammogram for breast cancer (Renamed from Encounter for screening mammogram for malignant neoplasm of breast) Unclassified (20 sources) Postmenopausal (Renamed from Postmenopausal status) Unclassified (20 sources) Body mass index (BMI) 24.0-24.9, adult Unclassified (20 sources) Nutritional counseling Unclassified (19 sources) Body mass index 25.0-25.9, adult Unclassified (20 sources) BMI 24.0-24.9, adult Unclassified (20 sources) Benign essential HTN (401.1) Unclassified (12 sources) Noncompliance with medications Unclassified (20 sources) Greater trochanteric bursitis, right Urinary tract infections (20 sources) Acute urinary tract infection; Translations: [Urinary tract infection, site not specified] Episodic Past or Other Problems Problem Classification Problem Date Documented Date Episodic/Chronic Acute myocardial infarction (20 sources) Acute myocardial infarction Administrative/social admission (8 sources) Counseling procedure with explicit context; Translations: [Medical examinations/reports status] Resolved: 05-29-2018 01-21-2018 Episodic Chronic obstructive pulmonary disease and bronchiectasis (19 sources) Chronic obstructive pulmonary disease and bronchiectasis Conditions associated with dizziness or vertigo (20 sources) Conditions associated with dizziness or vertigo Coronary atherosclerosis and other heart disease (7 sources) Presence of coronary angioplasty implant and graft; Translations: [Percutaneous transluminal coronary angioplasty status] Onset: 05-31-2017 Episodic External Injury - Adverse effects of medical drugs (19 sources) Unspecified adverse effect of unspecified drug, medicinal and biological substance; Translations: [Drug reaction] Resolved: 10-07-2012 10-07-2012 Episodic External Injury - Fall (20 sources) Fall; Translations: [Fall] Resolved: 01-20-2016 01-20-2016 Comment on above: fell off of rowing [employer] Other bone disease and musculoskeletal deformities (19 sources) Bone pain; Translations: [Iliac bone pain] Resolved: 02-05-2017 02-05-2017 Episodic Other connective tissue disease (18 sources) Soft tissue lesion of foot region; Translations: [Foot lesion] Resolved: 01-20-2016 01-20-2016 Episodic Comment on above: improved Other connective tissue disease (5 sources) Muscle weakness (generalized); Translations: [Proximal leg weakness] Resolved: 02-05-2017 02-05-2017 Episodic Other connective tissue disease (19 sources) Cramp in lower limb; Translations: [Leg cramps] Resolved: 05-29-2018 01-21-2018 Episodic Other non-traumatic joint disorders (1 source) Disorder of foot; Translations: [Foot lesion] Resolved: 01-20-2016 01-20-2016 Episodic Comment on above: improved Other nutritional; endocrine; and metabolic disorders (19 sources) Body mass index 25-29 - overweight; Translations: [Body mass index 25.0-25.9, adult] Resolved: 02-05-2017 02-05-2017 Chronic Poisoning by other medications and drugs (19 sources) Allergic reaction to drug; Translations: [Allergic reaction to drug, initial encounter] Resolved: 01-21-2018 01-21-2018 Episodic Residual codes; unclassified (18 sources) Generalized aches and pains; Translations: [Body aches] Resolved: 01-20-2016 01-20-2016 Episodic Residual codes; unclassified (15 sources) Vaccination required; Translations: [Encounter for immunization] 08-30-2016 Episodic Residual codes; unclassified (14 sources) Radiology result abnormal; Translations: [Abnormal findings on diagnostic imaging of other specified body structures] Resolved: 02-05-2017 02-05-2017 Episodic Spondylosis; intervertebral disc disorders; other back problems (20 sources) Backache; Translations: [Sciatica] Onset: 04-05-2024 Resolved: 02-05-2017 01-20-2016 Episodic Comment on above: Rt secondary to fall off of a rowing machine cant do mri bc pacem aidan Unclassified (20 sources) Annual Medicare Phyiscal WITHOUT abnormal findings (Renamed from Encounter for general adult medical examination without abnormal findings); Translations: [Patient encounter status] 01-21-2018 Unclassified (20 sources) Encounter for screening for malignant neoplasm of colon (Renamed from Special screening for malignant neoplasms, colon); Translations: [Screening status] 01-21-2018 Comment on above: no scope at 82 y/o - Unclassified (20 sources) Encounter for screening for malignant neoplasm of rectum; Translations: [Patient encounter status] 01-21-2018 Unclassified (20 sources) BMI 23.0-23.9, adult Unclassified (19 sources) Dizzy Unclassified (19 sources) Dizzy spells Unclassified (20 sources) SOB (shortness of breath) on exertion Unclassified (19 sources) Abnormal TSH Unclassified (19 sources) Urine frequency Unclassified (20 sources) Annual Medicare Physical WITH abnormal findings (Renamed from Encounter for general adult medical examination with abnormal findings); Translations: [Patient encounter status] 01-21-2018 Unclassified (20 sources) Leg cramps Unclassified (20 sources) Rash (782.1) Unclassified (20 sources) Iliac bone pain Unclassified (20 sources) Abnormal CT(793.9) Unclassified (20 sources) Foot lesion Unclassified (19 sources) History of tobacco abuse Unclassified (20 sources) LOW BACK PAIN WITH RADICULOPATHY (724.4) Unclassified (20 sources) Annual Medicare Physical (V70.0) Unclassified (5 sources) Bulge of lumbar disc without myelopathy Unclassified (20 sources) Breast screening Unclassified (19 sources) Proximal leg weakness Unclassified (19 sources) Sciatic pain Unclassified (19 sources) Hearing decreased (389.9) Unclassified (19 sources) Preprocedural examination done; Translations: [Pre-op evaluation] Resolved: 02-05-2017 02-05-2017 Unclassified (19 sources) Allergic reaction to drug, initial encounter Unclassified (19 sources) SHINGLES,NEED FOR PROPHYLACTIC VACCINATION AND INOCULATION AGAINST (V05.8) Unclassified (19 sources) Stress Reaction (308.4) Unclassified (19 sources) CERUMEN IMPACTION (380.4) Unclassified (19 sources) Abdominal Pain,RUQ(789.01) Unclassified (19 sources) Pregnancies (); Translations: [Pregnancies ()] 01-21-2018 Comment on above: 4. 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) Unclassified (20 sources) Renal insufficiency; Translations: [Renal insufficiency] 05-29-2018 Unclassified (19 sources) Elevated serum creatinine Unclassified (20 sources) Patient encounter status; Translations: [Annual Medicare Phyiscal WITHOUT abnormal findings (Renamed from Encounter for general adult medical examination without abnormal findings)] Resolved: 05-29-2018 01-21-2018 Comment on above: mamm up to date Unclassified (20 sources) Screening status; Translations: [Encounter for screening for malignant neoplasm of colon (Renamed from Special screening for malignant neoplasms, colon)] 01-21-2018 Comment on above: no scope at 82 y/o - Unclassified (18 sources) Non-smoker; Translations: [Nonsmoker] 03-01-2018 Unclassified (18 sources) Pre-op evaluation Unclassified (20 sources) Body mass index 20-24 - normal; Translations: [BMI 22.0-22.9, adult] Resolved: 05-29-2018 10-25-2018 Unclassified (14 sources) Musculoskeletal finding; Translations: [Proximal leg weakness] Resolved: 02-05-2017 02-05-2017 Unclassified (8 sources) Iliotibial band syndrome of both sides Results Test Name Value Interpretation Reference Range Facility Abdomen Limitedon 11-14-2024 Abdomen Limited [facility] [address] [place] [address] Abdomen Limited MR#: [id number] Acct: [id number] Name: TRINIDAD PARKER Rep #: [id number] : 1935 F 89 From: Grabiel valencia MD PCP: Dr. Jian Viveros MD Status: REG CLI Study: Abdomen Limited Date of Exam: 11/14/24 Exam# [id number] Ordering Dr: Jian Viveros MD PROCEDURE: ABDOMEN LIMITED 11/14/2024 REASON FOR EXAM: POST PRANDIAL RUQ PAIN TECHNIQUE: Procedure Code: USABDL Modality: US Procedure: ABDOMEN LIMITED COMPARISON: None FINDINGS: Liver: Grossly normal size and echotexture. Gallbladder: Mildly distended gallbladder. Common bile duct: Normal measuring 6 mm. . Pancreas: Visualized portions are sonographically unremarkable. Other: The right kidney measures 9.3 cm 4 cm 4.9 cm. The renal cortex measures 1.2 cm. There is a 9 mm x 8 mm x 7 mm cyst in the inferior pole. There is a 3 mm x 3 mm x 3 mm calculus in the right kidney. US/Abdomen Limited IMPRESSION: Mildly distended gallbladder. No evidence of gallstones. Small right renal cyst and small nonobstructive intrarenal calculus. Reading Location: [id number] CC: Dr. Jian Viveros MD Terminal Worker: Signed Normal [facility] L3300.8200on 11-14-2024 VITAMIN B6 19.6 ug/L Normal 3.4-65.2 [facility] Comment on above: Order Comment: Test( s) 561843-Wxrqodl B6was developed and its performance characteristicsdetermined by [facility]. It has not been cleared or approvedby the Food and Drug Administration. Result Comment: Defi ciency: <3.4 Marginal: 3.4 - 5.1 Adequate: >5.1 Performed By: #### L 503.0106, L3300.8200, L400.0001, L501.0900, L506.1001, L3300.8000 ####[facility] [address] [place], [place], [address] Vitamin B1, Thiamineon 11-14 VIT B1 THIAMINE 108.3 nmol/L Normal 66.5-200.0 [facility] Comment on above: Order Comment: Test( s) 112855-Dtanhzv B6was developed and its performance characteristicsdetermined by [facility]. It has not been cleared or approvedby the Food and Drug Administration. Result Comment: Perf ormed at: - [facility] [address] [id number] [employer] Operator: Rick Boone MD, Phone: [phone] Performed By: #### L 503.0106, L3300.8200, L400.0001, L501.0900, L506.1001, L3300.8000 ####[facility] [address] [facility] [place], [address] Absolute lymphocyte countOrd ered By: Jian Viveros on 11-06-2024 Lymphocytes Auto (Unsp spec) [#/Vol] 1.26 10*3/uL 0.83-4.51 [facility] Absolute neutrophil countOrd ered By: Jian Viveros on 11-06-2024 Neutrophils (Bld) [#/Vol] 7.5 10*3/uL 2.0-7.7 [facility] Acute Abdomen Inc Cheston Acute Abdomen Inc Chest [facility] Services [address] [place] [address] Acute Abdomen Inc Chest MR#: [id number] Acct: [id number] Name: TRINIDAD PARKER Rep #: [id number] : 1935 F 89 From: Ernestine Weeks MD PCP: Dr. Jian Viveros MD Status: REG CLI Study: Acute Abdomen Inc Chest Date of Exam: 11/06/24 Exam# [id number] Ordering Dr: Jian Viveros MD PROCEDURE: ACUTE ABDOMEN INC CHEST 11/06/2024 REASON FOR EXAM: ABD PAIN TECHNIQUE: ACUTE ABDOMEN INC CHEST FINDINGS: LINES: Right-sided pacemaker device with right atrial and right ventricular leads. LUNGS: No focal airspace consolidation. Calcified granulomas bilaterally. PLEURAL SPACES: No pleural effusion. No pneumothorax. HEART: The heart size is normal. MEDIASTINUM: Unremarkable. AORTA: Calcified thoracic and abdominal aorta.. PERITONEUM: No appreciable free air. Multiple left upper quadrant calcifications, likely calcified splenic granulomas. BOWEL: The bowel gas pattern is unremarkable. No bowel obstruction. Moderate colonic stool. BONES: No acute osseous abnormality. Prior spinal instrumentation with fusion hardware at L2-L3. Degenerative changes of the spine and both hips. RAD/Acute Abdomen Inc Chest IMPRESSION: NO ACUTE FINDINGS. Reading Location: [id number] CC: Dr. Jian Viveros MD Terminal Worker: Signed Normal [facility] Anion gap in Serum or Plasma Ordered By: Jian Viveros on 11-06-2024 Anion gap [Moles/Vol] 17 mmol/L High 5-15 [facility] Automated lymphocyte count a s percentage of total leukocytesOrdered By: Jian Viveros on 11-06-2024 Lymphocytes/100 WBC Auto (Unsp spec) 13.3 % Low 19-41 [facility] BUN/creatinine ratioOrdered By: Jian Viveros on 11-06-2024 Urea nitrogen/Creatinine [Mass ratio] 13.3 mg/mg 10-20 [facility] Basophil percentageOrdered B y: Jian Viveros on 11-06-2024 Basophils/100 WBC (Bld) 0.5 % 0-1 [facility] Bilirubin Test strip Ql (U)O rdered By: Jian Viveros on 11-06-2024 Bilirubin Ql (U) Negative Negative [facility] Bilirubin, totalOrdered By: Jian Viveros on 11-06-2024 Bilirubin [Mass/Vol] 0.62 mg/dL 0.00-1.30 [facility] CBC W/Diff, Automatedon 10-18 Absolute Lymph 1.26 X10 3/uL Normal 0.83-4.51 [facility] Comment on above: Order Comment: Order Date: 11/06/24Order Info: 0184-1 - CBCD Performed By: #### L 506.0400, L501.9520, L501.5200, L500.4100, L500.4050, L509.1000, L100.0100 ####[facility] [address] [place], [place], [phone] Absolute Neut 7.5 X10 3/uL Normal 2.0-7.7 [facility] Comment on above: Order Comment: Order Date: 11/06/24Order Info: 0184-1 - CBCD Performed By: #### L 506.0400, L501.9520, L501.5200, L500.4100, L500.4050, L509.1000, L100.0100 ####[facility] [address] [place], [address] Basophils/100 WBC (Bld) 0.5 % Normal 0-1 [facility] Comment on above: Order Comment: Order Date: 11/06/24Order Info: 0184-1 - CBCD Performed By: #### L 506.0400, L501.9520, L501.5200, L500.4100, L500.4050, L509.1000, L100.0100 ####[facility] [address] [place], [address] Eosinophils/100 WBC (Bld) 0.1 % Normal 0-5 [facility] Comment on above: Order Comment: Order Date: 11/06/24Order Info: 0184-1 - CBCD Performed By: #### L 506.0400, L501.9520, L501.5200, L500.4100, L500.4050, L509.1000, L100.0100 ####[facility] [address] [place], [address] Erythrocyte distribution width (RBC) [Ratio] 13.1 % Normal 11.6-14.6 [facility] Comment on above: Order Comment: Order Date: 11/06/24Order Info: 0184-1 - CBCD Performed By: #### L 506.0400, L501.9520, L501.5200, L500.4100, L500.4050, L509.1000, L100.0100 ####[facility] [address] [place], [address] Hematocrit (Bld) [Volume fraction] 37.3 % Normal 37-47 [facility] Comment on above: Order Comment: Order Date: 11/06/24Order Info: 0184-1 - CBCD Performed By: #### L 506.0400, L501.9520, L501.5200, L500.4100, L500.4050, L509.1000, L100.0100 ####[facility] [address] [place], [address] Hemoglobin (Bld) [Mass/Vol] 12.3 g/dL Normal 12.0-15.0 [facility] Comment on above: Order Comment: Order Date: 11/06/24Order Info: 0184-1 - CBCD Performed By: #### L 506.0400, L501.9520, L501.5200, L500.4100, L500.4050, L509.1000, L100.0100 ####[facility] [address] [place], [address] IG% 0.200 Normal 0.0-0.9 [facility] Comment on above: Order Comment: Order Date: 11/06/24Order Info: [id number] - CBCD Result Comment: IG% - Immature Granulocytes (promyelocytes, myelocytes and metamyelocytes) > 1% indicates that a LEFT SHIFT is Present. Performed By: #### L 506.0400, L501.9520, L501.5200, L500.4100, L500.4050, L509.1000, L100.0100 ####[facility] [address] [place], [address] Lymphocytes/100 WBC (Bld) 13.3 % Low 19-41 [facility] Comment on above: Order Comment: Order Date: 11/06/24Order Info: 0184-1 - CBCD Performed By: #### L 506.0400, L501.9520, L501.5200, L500.4100, L500.4050, L509.1000, L100.0100 ####[facility] [address] [place], [address] MCH (RBC) [Entitic mass] 31.3 pg Normal 27.0-32.0 [facility] Comment on above: Order Comment: Order Date: 11/06/24Order Info: 018- - CBCD Performed By: #### L 506.0400, L501.9520, L501.5200, L500.4100, L500.4050, L509.1000, L100.0100 ####[facility] [address] [place], [address] MCHC (RBC) [Mass/Vol] 33.0 g/dL Normal 32-36 [facility] Comment on above: Order Comment: Order Date: 11/06/24Order Info: 018- - CBCD Performed By: #### L 506.0400, L501.9520, L501.5200, L500.4100, L500.4050, L509.1000, L100.0100 ####[facility] [address] [place], [address] MCV (RBC) [Entitic vol] 94.9 fL Normal 81-99 [facility] Comment on above: Order Comment: Order Date: 11/06/24Order Info: 018- - CBCD Performed By: #### L 506.0400, L501.9520, L501.5200, L500.4100, L500.4050, L509.1000, L100.0100 ####[facility] [address] [place], [address] Monocytes/100 WBC (Bld) 7.2 % Normal 0-10 [facility] Comment on above: Order Comment: Order Date: 11/06/24Order Info: 018- - CBCD Performed By: #### L 506.0400, L501.9520, L501.5200, L500.4100, L500.4050, L509.1000, L100.0100 ####[facility] [address] [place], [address] Neutrophils/100 WBC (Bld) 78.7 % High 47-70 [facility] Comment on above: Order Comment: Order Date: 11/06/24Order Info: 018- - CBCD Performed By: #### L 506.0400, L501.9520, L501.5200, L500.4100, L500.4050, L509.1000, L100.0100 ####[facility] [address] [place], [address] Nucleated RBC (Bld) [#/Vol] 0 10*3/uL Normal 0-5 [facility] Comment on above: Order Comment: Order Date: 11/06/24Order Info: 018- - CBCD Performed By: #### L 506.0400, L501.9520, L501.5200, L500.4100, L500.4050, L509.1000, L100.0100 ####[facility] [address] [place], [address] Platelet mean volume (Bld) [Entitic vol] 9.9 fL Normal 6.2-12.0 [facility] Comment on above: Order Comment: Order Date: 11/06/24Order Info: 018- - CBCD Performed By: #### L 506.0400, L501.9520, L501.5200, L500.4100, L500.4050, L509.1000, L100.0100 ####[facility] [address] [place], [address] Platelets (Bld) [#/Vol] 283 10*3/uL Normal 150-450 [facility] Comment on above: Order Comment: Order Date: 11/06/24Order Info: 018- - CBCD Performed By: #### L 506.0400, L501.9520, L501.5200, L500.4100, L500.4050, L509.1000, L100.0100 ####[facility] [address] [place], [place], [phone]([phone] RBC (Bld) [#/Vol] 3.93 10*6/uL Low 4.2-5.4 [facility] Comment on above: Order Comment: Order Date: 11/06/24Order Info: 0184-1 - CBCD Performed By: #### L 506.0400, L501.9520, L501.5200, L500.4100, L500.4050, L509.1000, L100.0100 ####[facility] [address] [place], [address] RDW SD 45.4 fl High 35.1-43.9 [facility] Comment on above: Order Comment: Order Date: 11/06/24Order Info: [id number] - CBCD Performed By: #### L 506.0400, L501.9520, L501.5200, L500.4100, L500.4050, L509.1000, L100.0100 ####[facility] [address] [place], [address] WBC (Bld) [#/Vol] 9.5 10*3/uL Normal 4.4-11.0 [facility] Comment on above: Order Comment: Order Date: 11/06/24Order Info: 0184-1 - CBCD Performed By: #### L 506.0400, L501.9520, L501.5200, L500.4100, L500.4050, L509.1000, L100.0100 ####[facility] [address] [place], [place], [id number] Calculated very low density lipoprotein (VLDL) cholesterol measurementOrdered By: Jian Viveros on 11-06-2024 Calculated very low density lipoprotein (VLDL) cholesterol measurement 14 mg/dL 5-40 [facility] Carbon dioxide, total [Moles /volume] in Central venous bloodOrdered By: Jian Viveros on 11-06-2024 CO2 [Moles/Vol] 19.6 mmol/L Low 21.0-32.0 [facility] Chloride assayOrdered By: Nighat Viveros on 11-06-2024 Chloride [Moles/Vol] 99 mmol/L 98-108 [facility] Comprehensive Metabolic Prof ilon 11-06-2024 Albumin [Mass/Vol] 4.3 g/dL Normal 3.4-4.8 [facility] Comment on above: Order Comment: Order Date: 11/06/24Order Info: 785-1 - CMPOrder Info: [id number] - LIPIDOrder Info: [id number] - MGOrder Info: 3 - TSHOrder Info: 3023-7 - T4F Performed By: #### L 506.0400, L501.9520, L501.5200, L500.4100, L500.4050, L509.1000, L100.0100 ####[facility] [address] [place], [address] Albumin/Globulin [Mass ratio] 1.6 {ratio} Normal 0.9-2.4 [facility] Comment on above: Order Comment: Order Date: 11/06/24Order Info: 785-1 - CMPOrder Info: [id number] - LIPIDOrder Info: [id number] - MGOrder Info: 6-3 - TSHOrder Info: 3024-7 - T4F Performed By: #### L 506.0400, L501.9520, L501.5200, L500.4100, L500.4050, L509.1000, L100.0100 ####[facility] [address] [place], [address] ALK PHOS 100 U/L Normal 35-104 [facility] Comment on above: Order Comment: Order Date: 11/06/24Order Info: [id number] - CMPOrder Info: [id number] - LIPIDOrder Info: [id number] - MGOrder Info: 3016-3 - TSHOrder Info: 3024-7 - T4F Performed By: #### L 506.0400, L501.9520, L501.5200, L500.4100, L500.4050, L509.1000, L100.0100 ####[facility] [address] [place], [address] ALT [Catalytic activity/Vol] 51 U/L High <=34 [facility] Comment on above: Order Comment: Order Date: 11/06/24Order Info: 86-1 - CMPOrder Info: [id number] - LIPIDOrder Info: [id number] - MGOrder Info: 3016-3 - TSHOrder Info: 3024-7 - T4F Performed By: #### L 506.0400, L501.9520, L501.5200, L500.4100, L500.4050, L509.1000, L100.0100 ####[facility] [address] [place], [place], [phone] AST [Catalytic activity/Vol] 54 U/L High <=31 [facility] Comment on above: Order Comment: Order Date: 11/06/24Order Info: 86-1 - CMPOrder Info: [id number] - LIPIDOrder Info: [id number] - MGOrder Info: [id number] - TSHOrder Info: 3024-7 - T4F Performed By: #### L 506.0400, L501.9520, L501.5200, L500.4100, L500.4050, L509.1000, L100.0100 ####[facility] [address] [place], [address] Bilirubin [Mass/Vol] 0.62 mg/dL Normal 0.00-1.30 [facility] Comment on above: Order Comment: Order Date: 11/06/24Order Info: [id number] - CMPOrder Info: [id number] - LIPIDOrder Info: [id number] - MGOrder Info: 3016-3 - TSHOrder Info: 3024-7 - T4F Performed By: #### L 506.0400, L501.9520, L501.5200, L500.4100, L500.4050, L509.1000, L100.0100 ####[facility] [address] [place], [address] BUN/CRE 13.3 RATIO Normal 10-20 [facility] Comment on above: Order Comment: Order Date: 11/06/24Order Info: [id number] - CMPOrder Info: [id number] - LIPIDOrder Info: [id number] - MGOrder Info: [id number] - TSHOrder Info: 3024-7 - T4F Performed By: #### L 506.0400, L501.9520, L501.5200, L500.4100, L500.4050, L509.1000, L100.0100 ####[facility] [address] [place], [address] Calcium [Mass/Vol] 9.0 mg/dL Normal 7.6-11.0 [facility] Comment on above: Order Comment: Order Date: 11/06/24Order Info: [id number] - CMPOrder Info: [id number] - LIPIDOrder Info: [id number] - MGOrder Info: [id number] - TSHOrder Info: 3024-7 - T4F Performed By: #### L 506.0400, L501.9520, L501.5200, L500.4100, L500.4050, L509.1000, L100.0100 ####[facility] [address] [place], [address] Chloride [Moles/Vol] 99 mmol/L Normal 98-108 [facility] Comment on above: Order Comment: Order Date: 11/06/24Order Info: [id number] - CMPOrder Info: [id number] - LIPIDOrder Info: [id number] - MGOrder Info: [id number] - TSHOrder Info: 3024-7 - T4F Performed By: #### L 506.0400, L501.9520, L501.5200, L500.4100, L500.4050, L509.1000, L100.0100 ####[facility] [address] [place], [address] CO2 [Moles/Vol] 19.6 mmol/L Low 21.0-32.0 [facility] Comment on above: Order Comment: Order Date: 11/06/24Order Info: [id number] - CMPOrder Info: [id number] - LIPIDOrder Info: [id number] - MGOrder Info: [id number] - TSHOrder Info: 3024-7 - T4F Performed By: #### L 506.0400, L501.9520, L501.5200, L500.4100, L500.4050, L509.1000, L100.0100 ####[facility] [address] [place], [place], [address] Creatinine [Mass/Vol] 1.46 mg/dL High 0.70-1.20 [facility] Comment on above: Order Comment: Order Date: 11/06/24Order Info: 785-1 - CMPOrder Info: [id number] - LIPIDOrder Info: [id number] - MGOrder Info: [id number] - TSHOrder Info: 3024-7 - T4F Performed By: #### L 506.0400, L501.9520, L501.5200, L500.4100, L500.4050, L509.1000, L100.0100 ####[facility] [address] [place], [address] GAP 17 High 5-15 [facility] Comment on above: Order Comment: Order Date: 11/06/24Order Info: [id number] - CMPOrder Info: [id number] - LIPIDOrder Info: [id number] - MGOrder Info: [id number] - TSHOrder Info: 3024-7 - T4F Performed By: #### L 506.0400, L501.9520, L501.5200, L500.4100, L500.4050, L509.1000, L100.0100 ####[facility] [address] [place], [address] GFR/1.73 sq M.predicted among non-blacks MDRD (S/P/Bld) [Vol rate/Area] 35 mL/min/{1.73_m2} Low >60 [facility] Comment on above: Order Comment: Order Date: 11/06/24Order Info: [id number] - CMPOrder Info: [id number] - LIPIDOrder Info: [id number] - MGOrder Info: 3 - TSHOrder Info: 302-7 - T4F Result Comment: mL/m in/1.73m2 CKD-EPI Creatinine Equation (2020) Performed By: #### L 506.0400, L501.9520, L501.5200, L500.4100, L500.4050, L509.1000, L100.0100 ####[facility] [address] [place], [place], [id number] Globulin (S) [Mass/Vol] 2.8 g/dL Normal 2.2-4.2 [facility] Comment on above: Order Comment: Order Date: 11/06/24Order Info: 785-1 - CMPOrder Info: [id number] - LIPIDOrder Info: [id number] - MGOrder Info: [id number] - TSHOrder Info: 7 - T4F Performed By: #### L 506.0400, L501.9520, L501.5200, L500.4100, L500.4050, L509.1000, L100.0100 ####[facility] [address] [place], [place], [address] Glucose [Mass/Vol] 101 mg/dL High 70-99 [facility] Comment on above: Order Comment: Order Date: 11/06/24Order Info: 86-1 - CMPOrder Info: [id number] - LIPIDOrder Info: [id number] - MGOrder Info: [id number] - TSHOrder Info: 3024-7 - T4F Performed By: #### L 506.0400, L501.9520, L501.5200, L500.4100, L500.4050, L509.1000, L100.0100 ####[facility] [address] [place], [address] Potassium [Moles/Vol] 4.2 mmol/L Normal 3.3-5.1 [facility] Comment on above: Order Comment: Order Date: 11/06/24Order Info: [id number] - CMPOrder Info: [id number] - LIPIDOrder Info: [id number] - MGOrder Info: [id number] - TSHOrder Info: 3024-7 - T4F Performed By: #### L 506.0400, L501.9520, L501.5200, L500.4100, L500.4050, L509.1000, L100.0100 ####[facility] [address] [place], [address] Sodium [Moles/Vol] 135 mmol/L Normal 133-145 [facility] Comment on above: Order Comment: Order Date: 11/06/24Order Info: 86-1 - CMPOrder Info: [id number] - LIPIDOrder Info: [id number] - MGOrder Info: [id number] - TSHOrder Info: 3024-7 - T4F Performed By: #### L 506.0400, L501.9520, L501.5200, L500.4100, L500.4050, L509.1000, L100.0100 ####[facility] [address] [place], [address] T PROT 7.0 g/dL Normal 5.9-8.4 [facility] Comment on above: Order Comment: Order Date: 11/06/24Order Info: 86-1 - CMPOrder Info: [id number] - LIPIDOrder Info: [id number] - MGOrder Info: [id number] - TSHOrder Info: 3024-7 - T4F Performed By: #### L 506.0400, L501.9520, L501.5200, L500.4100, L500.4050, L509.1000, L100.0100 ####[facility] [address] [place], [place], [address] Urea nitrogen [Mass/Vol] 19 mg/dL Normal 4-19 [facility] Comment on above: Order Comment: Order Date: 11/06/24Order Info: [id number] - CMPOrder Info: [id number] - LIPIDOrder Info: [id number] - MGOrder Info: [id number] - TSHOrder Info: 3024-7 - T4F Performed By: #### L 506.0400, L501.9520, L501.5200, L500.4100, L500.4050, L509.1000, L100.0100 ####[facility] [address] [place], [address] Eosinophil percentageOrdered By: Jian Viveros on 11-06-2024 Eosinophils/100 WBC (Bld) 0.1 % 0-5 [facility] Erythrocyte distribution wid th ratioOrdered By: Jian Viveros on 11-06-2024 Erythrocyte distribution width (RBC) [Ratio] 13.1 % 11.6-14.6 [facility] Erythrocyte distribution wid th standard deviationOrdered By: Jian Viveros on 11-06-2024 Erythrocyte distribution width (RBC) [Ratio] 45.4 fl High 35.1-43.9 [facility] Glomerular filtration rate ( GFR) estimation/1.73 sq m using serum, plasma, or whole bOrdered By: Jian Viveros on 11-06-2024 GFR/1.73 sq M.predicted among non-blacks MDRD (S/P/Bld) [Vol rate/Area] 35 mL/min/{1.73_m2} Low >60 [facility] Comment on above: mL/min/1.73m2 CKD-EP I Creatinine Equation (2020) Hematocrit Auto (Bld) [Volum e fraction]Ordered By: Jian Viveros on 11-06-2024 Hematocrit (Bld) [Volume fraction] 37.3 % 37-47 [facility] Hemoglobin measurementOrdere d By: Jian Viveros on 11-06-2024 Hemoglobin (Bld) [Mass/Vol] 12.3 g/dL 12.0-15.0 [facility] Immature granulocytes/100 WB C Auto (Bld)Ordered By: Jian Viveros on 11-06-2024 Immature granulocytes/100 WBC (Bld) 0.200 % 0.0-0.9 [facility] Comment on above: IG% - Immature Granu locytes (promyelocytes, myelocytes and metamyelocytes) > 1% indicates that a LEFT SHIFT is Present. Ketones Test strip Ql (U)Ord ered By: Jian Viveros on 11-06-2024 Ketones Ql (U) Negative Negative [facility] LDL calc ser/plasOrdered By: Jian Viveros on 11-06-2024 Cholesterol in LDL [Mass/Vol] 62 mg/dL [facility] Comment on above: Sgykstafna=027-840 m g/dL & Higher Hugt=342 mg/dL or greaterFriedwald Equation for LDL-C Laboratory - Chemistry and C hemistry - challengeOrdered By: Jian Viveros on 11-06-2024 AST [Catalytic activity/Vol] 54 U/L High <32 [facility] Lipid Profileon 11-06-2024 CHOL:HDL 2.14 Normal [facility] Comment on above: Order Comment: Order Date: 11/06/24Order Info: [id number] - CMPOrder Info: [id number] - LIPIDOrder Info: [id number] - MGOrder Info: [id number] - TSHOrder Info: 3023-09 - T4F Performed By: #### L 506.0400, L501.9520, L501.5200, L500.4100, L500.4050, L509.1000, L100.0100 ####[facility] [address] [place], [address] Cholesterol [Mass/Vol] 143 mg/dL Normal <=200 [facility] Comment on above: Order Comment: Order Date: 11/06/24Order Info: [id number] - CMPOrder Info: [id number] - LIPIDOrder Info: [id number] - MGOrder Info: [id number] - TSHOrder Info: 3024-7 - T4F Result Comment: Chol esterol level, Desirable <200 mg/dL Borderline high cholesterol 200-239 mg/dL High cholesterol >=240 mg/dL Recommendations of the NCEP Adult Treatment Panel for the following risk-cutoff thresholds for the [place] population. Performed By: #### L 506.0400, L501.9520, L501.5200, L500.4100, L500.4050, L509.1000, L100.0100 ####[facility] [address] [place], [address] Cholesterol in HDL [Mass/Vol] 67 mg/dL Normal [facility] Comment on above: Order Comment: Order Date: 11/06/24Order Info: [id number] - CMPOrder Info: [id number] - LIPIDOrder Info: [id number] - MGOrder Info: [id number] - TSHOrder Info: 3023-09 T4F Result Comment: Joanne onal Cholesterol Education Program (NCEP) guidelines: <40 mg/dL: Low HDL-cholesterol (major risk factor for CHD) >= 60 mg/dL: High HDL-cholesterol (negative risk factor for CHD) HDL-cholesterol is affected by a number of factors, e.g. smoking, exercise, hormones, sex and age. Performed By: #### L 506.0400, L501.9520, L501.5200, L500.4100, L500.4050, L509.1000, L100.0100 ####[facility] [address] [place], [address] Cholesterol in LDL [Mass/Vol] 62 mg/dL Normal [facility] Comment on above: Order Comment: Order Date: 11/06/24Order Info: [id number] - CMPOrder Info: [id number] - LIPIDOrder Info: [id number] - MGOrder Info: 3 - TSHOrder Info: 3023-09 T4F Result Comment: Bord zxmcuf=728-733 mg/dL Higher Feof=428 mg/dL or greater Friedwald Equation for LDL-C Performed By: #### L 506.0400, L501.9520, L501.5200, L500.4100, L500.4050, L509.1000, L100.0100 ####[facility] [address] [place], [place], [address] Cholesterol in VLDL [Mass/Vol] 14 mg/dL Normal 5-40 [facility] Comment on above: Order Comment: Order Date: 11/06/24Order Info: 86- - CMPOrder Info: [id number] - LIPIDOrder Info: [id number] - MGOrder Info: [id number] - TSHOrder Info: 302-7 - T4F Performed By: #### L 506.0400, L501.9520, L501.5200, L500.4100, L500.4050, L509.1000, L100.0100 ####[facility] [address] [place], [place], [address] Triglyceride [Mass/Vol] 72 mg/dL Normal [facility] Comment on above: Order Comment: Order Date: 11/06/24Order Info: [id number] - CMPOrder Info: - LIPIDOrder Info: - MGOrder Info: 3 - TSHOrder Info: [id number] - T4F Result Comment: The drugs N-Acetylcysteine and Metamizole may falsely depress this assay. Normal range: <150 mg/dL Borderline High: 150-199 mg/dL High: 200-499 mg/dL Very High: >500 mg/dL Performed By: #### L 506.0400, L501.9520, L501.5200, L500.4100, L500.4050, L509.1000, L100.0100 ####[facility] [address] [place], [address] MCV (mean corpuscular volume ) determinationOrdered By: Jian Viveros on 11-06-2024 MCV (RBC) [Entitic vol] 94.9 fL 81-99 [facility] Magnesiumon 11-06-2024 Magnesium [Mass/Vol] 1.9 mg/dL Normal 1.5-2.2 [facility] Comment on above: Order Comment: Order Date: 11/06/24Order Info: [id number]- - CMPOrder Info: - LIPIDOrder Info: [id number] - MGOrder Info: 3 - TSHOrder Info: 3024-7 - T4F Performed By: #### L 506.0400, L501.9520, L501.5200, L500.4100, L500.4050, L509.1000, L100.0100 ####[facility] [address] [place], [address] Magnesium measurement (mass/ volume)Ordered By: Jian Viveros on 11-06-2024 Magnesium (Unsp spec) [Mass/Vol] 1.9 mg/dL 1.5-2.2 [facility] Mean corpuscular hemoglobin (MCH) determinationOrdered By: Jian Viveros on 11-06-2024 MCH (RBC) [Entitic mass] 31.3 pg 27.0-32.0 [facility] Mean corpuscular hemoglobin concentration (MCHC) determinationOrdered By: Jian Viveros on 11-06-2024 MCHC (RBC) [Mass/Vol] 33.0 g/dL 32-36 [facility] Mean platelet volume determi nationOrdered By: Jian Viveros on 11-06-2024 Platelet mean volume (Bld) [Entitic vol] 9.9 fL 6.2-12.0 [facility] Microscopic analysis of urin e for red blood cells (RBC)Ordered By: Jian Viveros on 11-06-2024 Microscopic analysis of urine for red blood cells (RBC) 0-5 SEEN /hpf 0-5 [facility] Monocyte percentageOrdered B y: Jian Viveros on 11-06-2024 Monocytes/100 WBC (Bld) 7.2 % 0-10 [facility] Mucus LM Ql (Urine sed)Order ed By: Jian Viveros on 11-06-2024 Mucus Ql (Urine sed) 0 SEEN /hpf [facility] Neutrophil percentageOrdered By: Jian Viveros on 11-06-2024 Neutrophils/100 WBC (Bld) 78.7 % High 47-70 [facility] Nitrite Test strip Ql (U)Ord ered By: Jian Viveros on 11-06-2024 Nitrite Ql (U) Negative Negative [facility] Nucleated red blood cell per centageOrdered By: Jian Viveros on 11-06-2024 Nucleated RBC/100 WBC (Bld) [Ratio] 0 % 0-5 [facility] PTHINon 11-06-2024 PTH 121 pg/mL High 11-61 [facility] Comment on above: Order Comment: Order Date: 11/06/24Order Info: [id number] - PTHIN Performed By: #### L 506.0400, L501.9520, L501.5200, L500.4100, L500.4050, L509.1000, L100.0100 ####[facility] [address] [place], [address] Platelet countOrdered By: Nighat Viveros on 11-06-2024 Platelets (Bld) [#/Vol] 283 10*3/uL 150-450 [facility] Potassium measurement (mass/ volume)Ordered By: Jian Viveros on 11-06-2024 Potassium (Unsp spec) [Mass/Vol] 4.2 mmol/L 3.3-5.1 [facility] Protein Test strip Ql (U)Ord ered By: Jian Viveros on 11-06-2024 Protein Ql (U) 30 mg/dl High Negative [facility] Protein+Creatinine Ratio,Uri neon 11-06-2024 PROT:CRE RATIO 308 mg/g CRE High 0-200 [facility] Comment on above: Performed By: #### L 503.0106, L3300.8200, L400.0001, L501.0900, L506.1001, L3300.8000 ####[facility] [address] [place], [address] Protein (U) [Mass/Vol] 40.9 mg/dL High 0.0-12.0 [facility] Comment on above: Performed By: #### L 503.0106, L3300.8200, L400.0001, L501.0900, L506.1001, L3300.8000 ####[facility] [address] [place], [address] UR CREAT 133.00 mg/dL Normal 28.00-217. 00 [facility] Comment on above: Performed By: #### L 503.0106, L3300.8200, L400.0001, L501.0900, L506.1001, L3300.8000 ####[facility] [address] [place], [address] RBC Auto (Bld) [#/Vol]Ordere d By: Jian Viveros on 11-06-2024 RBC (Bld) [#/Vol] 3.93 10*6/uL Low 4.2-5.4 [facility] Random urine creatinine benigno urement (mass/volume)Ordered By: Jian Viveros on 11-06-2024 Creatinine Unsp time (U) [Mass/Vol] 133.00 mg/dL 28.00-217. 00 [facility] Screening total cholesterol/ high density lipoprotein (HDL) cholesterol ratioOrdered By: Jian Viveros on 11-06-2024 Cholesterol.total/Cho lesterol in HDL [Mass ratio] 2.14 {ratio} [facility] Serum creatinine measurement (mass/volume)Ordered By: Jian Viveros on 11-06-2024 Creatinine [Mass/Vol] 1.46 mg/dL High 0.70-1.20 [facility] Serum globulin measurementOr dered By: Jian Viveros on 11-06-2024 Globulin (S) [Mass/Vol] 2.8 g/dL 2.2-4.2 [facility] Serum glucose measurement (m ass/volume)Ordered By: Jian Viveros on 11-06-2024 Glucose [Mass/Vol] 101 mg/dL High 70-99 [facility] Serum or plasma alanine murphy otransferase (ALT) measurementOrdered By: Jian Viveros on 11-06-2024 ALT [Catalytic activity/Vol] 51 U/L High <35 [facility] Serum or plasma albumin benigno urement (mass/volume)Ordered By: Jian Viveros on 11-06-2024 Albumin [Mass/Vol] 4.3 g/dL 3.4-4.8 [facility] Serum or plasma albumin/glob ulin mass ratioOrdered By: Jian Viveros on 11-06-2024 Albumin/Globulin [Mass ratio] 1.6 {ratio} 0.9-2.4 [facility] Serum or plasma alkaline marlene sphatase measurementOrdered By: Jian Viveros on 11-06-2024 ALP [Catalytic activity/Vol] 100 U/L 35-104 [facility] Serum or plasma calcium benigno urement (mass/volume)Ordered By: Jian Viveros on 11-06-2024 Calcium [Mass/Vol] 9.0 mg/dL 7.6-11.0 [facility] Serum or plasma cholesterol in HDL measurement (mass/volume)Ordered By: Jian Viveros on 11-06-2024 Cholesterol in HDL [Mass/Vol] 67 mg/dL >40 [facility] Comment on above: National Cholesterol Education Program (NCEP) guidelines:<40 mg/dL: Low HDL-cholesterol (major risk factor for CHD)>= 60 mg/dL: High HDL-cholesterol (negative risk factor for CHD)HDL-cholesterol is affected by a number of factors, e.g. smoking, exercise, hormones, sex and age. Serum or plasma cholesterol measurement (mass/volume)Ordered By: Jian Viveros on 11-06-2024 Cholesterol [Mass/Vol] 143 mg/dL <201 [facility] Comment on above: Cholesterol level, D esirable <200 mg/dLBorderline high cholesterol 200-239 mg/dLHigh cholesterol >=240 mg/dLRecommendations of the NCEP Adult Treatment Panel for the following risk-cutoff thresholds for the [place] population. Serum or plasma urea nitroge n measurement (mass/volume)Ordered By: Jian Viveros on 11-06-2024 Urea nitrogen [Mass/Vol] 19 mg/dL 4-19 [facility] Sodium levelOrdered By: Jian Viveros on 11-06-2024 Sodium [Moles/Vol] 135 mmol/L 133-145 [facility] Squamous epithelial cells de tection in urine sediment by light microscopyOrdered By: Jian Viveros on 11-06-2024 Epithelial cells.squamous LM Ql (Urine sed) 5-10 SEEN /hpf 5-10 [facility] T4 Free Directon 11-06-2024 T4 FREE DIRECT 2.00 ng/dL High 0.76-1.46 [facility] Comment on above: Order Comment: Order Date: 11/06/24Order Info: [id number] - CMPOrder Info: [id number] - LIPIDOrder Info: [id number] - MGOrder Info: 3 - TSHOrder Info: 7 - T4F Performed By: #### L 506.0400, L501.9520, L501.5200, L500.4100, L500.4050, L509.1000, L100.0100 ####[facility] [address] [place], [place], [id number] T4 freeOrdered By: Jian andino on 11-06-2024 Free T4 [Mass/Vol] 2.00 ng/dL High 0.76-1.46 [facility] TSH DL <= 0.005 mIU/L QnOrde red By: Jian Viveros on 11-06-2024 TSH Qn 1.020 uIU/mL 0.300-4.20 0 [facility] Thyroid Stim Hormone (TSH)on 11-06-2024 TSH 1.020 uIU/mL Normal 0.300-4.20 0 [facility] Comment on above: Order Comment: Order Date: 11/06/24Order Info: [id number]- - CMPOrder Info: [id number] - LIPIDOrder Info: [id number] - MGOrder Info: 63 - TSHOrder Info: [id number] - T4F Performed By: #### L 506.0400, L501.9520, L501.5200, L500.4100, L500.4050, L509.1000, L100.0100 ####[facility] [address] [place], [place], [id number] Total proteinOrdered By: Raghu Viveros on 11-06-2024 Protein [Mass/Vol] 7.0 g/dL 5.9-8.4 [facility] Triglycerides measurementOrd ered By: Jian Viveros on 11-06-2024 Triglyceride [Mass/Vol] 72 mg/dL <199 [facility] Comment on above: The drugs N-Acetylcy steine and Metamizole may falsely depress this assay. Normal range: <150 mg/dLBorderline High: 150-199 mg/dLHigh: 200-499 mg/dLVery High: >500 mg/dL Urinalysis, Completeon 11-06 RBC 0-5 SEEN Normal 0-5 [facility] Comment on above: Order Comment: Urine , Random Performed By: #### L 503.0106, L3300.8200, L400.0001, L501.0900, L506.1001, L3300.8000 ####[facility] [address] [place], [address] WBC 5-10 SEEN Normal 0-5 [facility] Comment on above: Order Comment: Urine , Random Performed By: #### L 503.0106, L3300.8200, L400.0001, L501.0900, L506.1001, L3300.8000 ####[facility] [address] [place], [address] EPI,SQUAMOUS 5-10 SEEN Normal 5-10 [facility] Comment on above: Order Comment: Urine , Random Performed By: #### L 503.0106, L3300.8200, L400.0001, L501.0900, L506.1001, L3300.8000 ####[facility] [address] [place], [address] BACTERIA 0 SEEN Normal None Seen [facility] Comment on above: Order Comment: Urine , Random Performed By: #### L 503.0106, L3300.8200, L400.0001, L501.0900, L506.1001, L3300.8000 ####[facility] [address] [place], [address] Mucus Ql (Urine sed) 0 SEEN Normal [facility] Comment on above: Order Comment: Urine , Random Performed By: #### L 503.0106, L3300.8200, L400.0001, L501.0900, L506.1001, L3300.8000 ####[facility] [address] [place], [address] Urine clarityOrdered By: Raghu Viveros on 11-06-2024 Clarity (U) Sl. Cloudy Clear [facility] Urine color determinationOrd ered By: Jian Viveros on 11-06-2024 Color (U) Yellow Yellow [facility] Urine glucose detectionOrder ed By: Jian Viverso on 11-06-2024 Glucose Ql (U) Normal mg/dl Normal [facility] Urine leukocyte esterase det ection by dipstickOrdered By: Jian Viveros on 11-06-2024 Leukocyte esterase Test strip Ql (U) 25 /ul High Negative [facility] Urine pHOrdered By: Jian santoyo on 11-06-2024 pH (U) 6.5 [pH] 5.0 - 8.0 [facility] Urine protein measurement (m ass/volume)Ordered By: Jian Viveros on 11-06-2024 Protein (U) [Mass/Vol] 40.9 mg/dL High 0.0-12.0 [facility] Urine protein/creatinine mas s ratioOrdered By: Jian Viveros on 11-06-2024 Protein/Creatinine (U) [Mass ratio] 308 mg/g CRE High 0-200 [facility] Urine sediment bacteria coun t by microscopy (number/high power field)Ordered By: Jian Viveros on 11-06-2024 Bacteria LM.HPF (Urine sed) [#/Area] 0 /[HPF] None Seen [facility] Urine specific gravity measu rementOrdered By: Jian Viveros on 11-06-2024 Specific gravity (U) [Rel density] 1.010 1.002-1.03 0 [facility] Urine urobilinogen measureme ntOrdered By: Jian Viveros on 11-06-2024 Urobilinogen Ql (U) 1 mg/dl High Normal [facility] Vitamin B12on 11-06-2024 Cobalamin (Vitamin B12) [Mass/Vol] 321 pg/mL Normal 180-914 [facility] Comment on above: Order Comment: Order Date: 11/06/24Order Info: [id number] - CMPOrder Info: [id number] - LIPIDOrder Info: [id number] - MGOrder Info: [id number] - TSHOrder Info: [id number] - T4F Performed By: #### L 503.0106, L3300.8200, L400.0001, L501.0900, L506.1001, L3300.8000 ####[facility] [address] [place], [address] Vitamin B12 ser/plasOrdered By: Jian Viveros on 11-06-2024 Cobalamin (Vitamin B12) [Mass/Vol] 321 pg/mL 180-914 [facility] Vitamin D,25 Hydroxyon 11-06 Vitamin D 25-OH 30.3 ng/mL Normal 30-100 [facility] Comment on above: Order Comment: Order Date: 11/06/24Order Info: [id number] - CMPOrder Info: [id number] - LIPIDOrder Info: - MGOrder Info: [id number] - TSHOrder Info: [id number] - T4F Result Comment: Akosua min D Status Deficiency: <20 ng/mL (50nmol/L) Insufficiency: 20-30 ng/mL (50-75 nmol/L) Sufficiency: 30-100 ng/mL (75-250 nmol/L) Toxicity: >100 ng/mL (>250 nmol/L) Performed By: #### L 503.0106, L3300.8200, L400.0001, L501.0900, L506.1001, L3300.8000 ####[facility] [address] [place], [address] White blood cell (WBC) count Ordered By: Jian Viveros on 11-06-2024 WBC (Bld) [#/Vol] 9.5 10*3/uL 4.4-11.0 [facility] White blood cell countOrdere d By: Jian Viveros on 11-06-2024 White blood cell count 5-10 SEEN /hpf 0-5 [facility] Head/Neck Soft Tissueon 07-2 Head/Neck Soft Tissue [facility] [address] [place] [address] Head/Neck Soft Tissue MR#: [id number] Acct: [id number] Name: TRINIDAD PARKER Rep #: [id number] : 1935 F 89 From: Grabiel valencia MD PCP: Dr. Jian Viveros MD Status: [facility] CL Study: Head/Neck Soft Tissue Date of Exam: 10/13/24 Exam# [id number] Ordering Dr: Jian Viveros MD PROCEDURE: HEAD/NECK SOFT TISSUE 10/13/2024 REASON FOR EXAM: ATTENTION TO LEFT SUBMANDIBULAR GLAND TECHNIQUE: HEAD/NECK SOFT TISSUE COMPARISON: None FINDINGS: The right submandibular gland measures 3.5 cm x 3.2 cm x 0.9 cm. It is unremarkable. The left submandibular gland measures 3.4 cm x 3.8 cm x 0.8 cm. No mass lesion is seen. US/Head/Neck Soft Tissue IMPRESSION: Symmetrically appearing bilateral submandibular glands. No suspicious abnormality is seen. Reading Location: [facility] CC: Dr. Jian Viveros MD Terminal Worker: Signed Normal [facility] L3300.8200on 09-27-2024 VITAMIN B6 72.2 ug/L High 3.4-65.2 [facility] Comment on above: Order Comment: Test( s) [id number] B6was developed and its performance characteristicsdetermined by [facility]. It has not been cleared or approvedby the Food and Drug Administration. Result Comment: Defi ciency: <3.4 Marginal: 3.4 - 5.1 Adequate: >5.1 Performed By: #### L 503.0106, L503.6030, L503.5450, L3300.8000, L3300.8200 ####[facility] [address] [place], [address] Vitamin B1, Thiamineon 09-27 VIT B1 THIAMINE 104.5 nmol/L Normal 66.5-200.0 [facility] Comment on above: Order Comment: Test( s) [id number]-[id number] B6was developed and its performance characteristicsdetermined by [facility]. It has not been cleared or approvedby the Food and Drug Administration. Result Comment: Perf ormed at: [facility] [address] [id number] [employer] Operator: Rick Boone MD, Phone: [phone] Performed By: #### L 503.0106, L503.6030, L503.6550, L3300.8000, L3300.8200 ####[facility] [address] [place], [place], [id number] ANTINUCLEAR ANTIBODIES DIREC Ton 09-25-2024 ASHLEIGH,DIRECT Negative Normal Negative [facility] Comment on above: Order Comment: Order Date: 09/23/24Order Info: [id number] - ASHLEIGH Result Comment: Perf ormed at: [address] [id number] [employer] Operator: Irvin Goins PhD, Phone: [phone] Performed By: #### L 3100.5475, L500.4050, L100.0500 ####[facility] [address] [place], [place], [id number] Ferritinon 09-24-2024 Ferritin [Mass/Vol] 30 ng/mL Normal 22-378 [facility] Comment on above: Order Comment: IVÁN Dejesus ADD YULIA IBC TO BLOOD DRAWN 09/23/24 PER Order Date: 09/23/24Order Info: [id number] - CMP Performed By: #### L 503.0106, L503.6030, L503.6550, L3300.8000, L3300.8200 ####[facility] [address] [place], [place], [id number] Iron+Iron Binding Capacityon 09-24-2024 Iron [Mass/Vol] 63 ug/dL Normal 50-170 [facility] Comment on above: Order Comment: IVÁN Dejesus ADD YULIA IBC TO BLOOD DRAWN 09/23/24 PER Order Date: 09/23/24Order Info: [id number] - CMP Performed By: #### L 503.0106, L503.6030, L503.6550, L3300.8000, L3300.8200 ####[facility] [address] [place], [address] IRON SATURATION 20.0 Normal 13-59 [facility] Comment on above: Order Comment: IVÁN Dejesus ADD YULIA IBC TO BLOOD DRAWN 09/23/24 PER Order Date: 09/23/24Order Info: [id number]- - CMP Performed By: #### L 503.0106, L503.6030, L503.6550, L3300.8000, L3300.8200 ####[facility] [address] [place], [address] TIBC 319 ug/dL Normal 250-450 [facility] Comment on above: Order Comment: IVÁN Dejesus ADD YULIA IBC TO BLOOD DRAWN 09/23/24 PER Order Date: 09/23/24Order Info: [id number] - CMP Performed By: #### L 503.0106, L503.6030, L503.6550, L3300.8000, L3300.8200 ####[facility] [address] [facility] [place], [address] UIBC 256 ug/dL Normal 228-428 [facility] Comment on above: Order Comment: IVÁN Dejesus ADD YULIA IBC TO BLOOD DRAWN 09/23/24 PER Order Date: 09/23/24Order Info: [id number] - CMP Performed By: #### L 503.0106, L503.6030, L503.6550, L3300.8000, L3300.8200 ####[facility] [address] [place], [address] Anion gap in Serum or Plasma Ordered By: Jian Viveros on 09-23-2024 Anion gap [Moles/Vol] 13 mmol/L 5-15 [facility] BUN/creatinine ratioOrdered By: Jian Viveros on 09-23-2024 Urea nitrogen/Creatinine [Mass ratio] 19.3 mg/mg 10-20 [facility] Bilirubin, totalOrdered By: Jian Viveros on 09-23-2024 Bilirubin [Mass/Vol] 0.49 mg/dL 0.00-1.30 [facility] CBC-Complete Blood Cnt No Di ffon 09-23-2024 Erythrocyte distribution width (RBC) [Ratio] 12.6 % Normal 11.6-14.6 [facility] Comment on above: Order Comment: Order Date: 09/23/24Order Info: [id number] - CBC Performed By: #### L 3100.5475, L500.4050, L100.0500 ####[facility] [address] [place], [address] Hematocrit (Bld) [Volume fraction] 34.9 % Low 37-47 [facility] Comment on above: Order Comment: Order Date: 09/23/24Order Info: [id number] - CBC Performed By: #### L 3100.5475, L500.4050, L100.0500 ####[facility] [address] [place], [address] Hemoglobin (Bld) [Mass/Vol] 11.3 g/dL Low 12.0-15.0 [facility] Comment on above: Order Comment: Order Date: 09/23/24Order Info: [id number] - CBC Performed By: #### L 3100.5475, L500.4050, L100.0500 ####[facility] [address] [place], [address] MCH (RBC) [Entitic mass] 31.3 pg Normal 27.0-32.0 [facility] Comment on above: Order Comment: Order Date: 09/23/24Order Info: [id number] - CBC Performed By: #### L 3100.5475, L500.4050, L100.0500 ####[facility] [address] [place], [address] MCHC (RBC) [Mass/Vol] 32.4 g/dL Normal 32-36 [facility] Comment on above: Order Comment: Order Date: 09/23/24Order Info: [id number] - CBC Performed By: #### L 3100.5475, L500.4050, L100.0500 ####[facility] [address] [place], [address] MCV (RBC) [Entitic vol] 96.7 fL Normal 81-99 [facility] Comment on above: Order Comment: Order Date: 09/23/24Order Info: [id number] - CBC Performed By: #### L 3100.5475, L500.4050, L100.0500 ####[facility] [address] [place], [address] Platelet mean volume (Bld) [Entitic vol] 9.7 fL Normal 6.2-12.0 [facility] Comment on above: Order Comment: Order Date: 09/23/24Order Info: [id number] - CBC Performed By: #### L 3100.5475, L500.4050, L100.0500 ####[facility] [address] [place], [address] Platelets (Bld) [#/Vol] 270 10*3/uL Normal 150-450 [facility] Comment on above: Order Comment: Order Date: 09/23/24Order Info: [id number] - CBC Performed By: #### L 3100.5475, L500.4050, L100.0500 ####[facility] [address] [place], [address] RBC (Bld) [#/Vol] 3.61 10*6/uL Low 4.2-5.4 [facility] Comment on above: Order Comment: Order Date: 09/23/24Order Info: [id number] - CBC Performed By: #### L 3100.5475, L500.4050, L100.0500 ####[facility] [address] [place], [address] RDW SD 45.1 fl High 35.1-43.9 [facility] Comment on above: Order Comment: Order Date: 09/23/24Order Info: [id number] - CBC Performed By: #### L 3100.5475, L500.4050, L100.0500 ####[facility] [address] [place], [address] WBC (Bld) [#/Vol] 8.9 10*3/uL Normal 4.4-11.0 [facility] Comment on above: Order Comment: Order Date: 09/23/24Order Info: [id number] - CBC Performed By: #### L 3100.5475, L500.4050, L100.0500 ####[facility] [address] [place], [address] Carbon dioxide, total [Moles /volume] in Central venous bloodOrdered By: Jian Viveros on 09-23-2024 CO2 [Moles/Vol] 21.7 mmol/L 21.0-32.0 [facility] Chloride assayOrdered By: Nighat Viveros on 09-23-2024 Chloride [Moles/Vol] 101 mmol/L 98-108 [facility] Comprehensive Metabolic Prof ilon 09-23-2024 Albumin [Mass/Vol] 4.2 g/dL Normal 3.4-4.8 [facility] Comment on above: Order Comment: Order Date: 09/23/24Order Info: [id number] - CMP Performed By: #### L 3100.5475, L500.4050, L100.0500 ####[facility] [address] [place], [address] Albumin/Globulin [Mass ratio] 1.3 {ratio} Normal 0.9-2.4 [facility] Comment on above: Order Comment: Order Date: 09/23/24Order Info: 0786-1 - CMP Performed By: #### L 3100.5475, L500.4050, L100.0500 ####[facility] [address] [place], [address] ALK PHOS 106 U/L High 35-104 [facility] Comment on above: Order Comment: Order Date: 09/23/24Order Info: 0786-1 - CMP Performed By: #### L 3100.5475, L500.4050, L100.0500 ####[facility] [address] [place], [address] ALT [Catalytic activity/Vol] 32 U/L Normal <=34 [facility] Comment on above: Order Comment: Order Date: 09/23/24Order Info: 0786-1 - CMP Performed By: #### L 3100.5475, L500.4050, L100.0500 ####[facility] [address] [place], [address] AST [Catalytic activity/Vol] 44 U/L High <=31 [facility] Comment on above: Order Comment: Order Date: 09/23/24Order Info: 0786-1 - CMP Performed By: #### L 3100.5475, L500.4050, L100.0500 ####[facility] [address] [place], [address] Bilirubin [Mass/Vol] 0.49 mg/dL Normal 0.00-1.30 [facility] Comment on above: Order Comment: Order Date: 09/23/24Order Info: 0786-1 - CMP Performed By: #### L 3100.5475, L500.4050, L100.0500 ####[facility] [address] [place], [address] BUN/CRE 19.3 RATIO Normal 10-20 [facility] Comment on above: Order Comment: Order Date: 09/23/24Order Info: 0786-1 - CMP Performed By: #### L 3100.5475, L500.4050, L100.0500 ####[facility] [address] [place], [address] Calcium [Mass/Vol] 9.5 mg/dL Normal 7.6-11.0 [facility] Comment on above: Order Comment: Order Date: 09/23/24Order Info: 0786-1 - CMP Performed By: #### L 3100.5475, L500.4050, L100.0500 ####[facility] [address] [place], [address] Chloride [Moles/Vol] 101 mmol/L Normal 98-108 [facility] Comment on above: Order Comment: Order Date: 09/23/24Order Info: 0786-1 - CMP Performed By: #### L 3100.5475, L500.4050, L100.0500 ####[facility] [address] [place], [address] CO2 [Moles/Vol] 21.7 mmol/L Normal 21.0-32.0 [facility] Comment on above: Order Comment: Order Date: 09/23/24Order Info: 0786-1 - CMP Performed By: #### L 3100.5475, L500.4050, L100.0500 ####[facility] [address] [place], [address] Creatinine [Mass/Vol] 1.34 mg/dL High 0.70-1.20 [facility] Comment on above: Order Comment: Order Date: 09/23/24Order Info: 0786-1 - CMP Performed By: #### L 3100.5475, L500.4050, L100.0500 ####[facility] [address] [place], [address] GAP 13 Normal 5-15 [facility] Comment on above: Order Comment: Order Date: 09/23/24Order Info: 0786-1 - CMP Performed By: #### L 3100.5475, L500.4050, L100.0500 ####[facility] [address] [place], [address] GFR/1.73 sq M.predicted among non-blacks MDRD (S/P/Bld) [Vol rate/Area] 38 mL/min/{1.73_m2} Low >60 [facility] Comment on above: Order Comment: Order Date: 09/23/24Order Info: 0786-1 - CMP Result Comment: mL/m in/1.73m2 CKD-EPI Creatinine Equation (2020) Performed By: #### L 3100.5475, L500.4050, L100.0500 ####[facility] [address] [place], [address] Globulin (S) [Mass/Vol] 3.1 g/dL Normal 2.2-4.2 [facility] Comment on above: Order Comment: Order Date: 09/23/24Order Info: 0786-1 - CMP Performed By: #### L 3100.5475, L500.4050, L100.0500 ####[facility] [address] [place], [address] Glucose [Mass/Vol] 94 mg/dL Normal 70-99 [facility] Comment on above: Order Comment: Order Date: 09/23/24Order Info: 0786-1 - CMP Performed By: #### L 3100.5475, L500.4050, L100.0500 ####[facility] [address] [place], [address] Potassium [Moles/Vol] 4.4 mmol/L Normal 3.3-5.1 [facility] Comment on above: Order Comment: Order Date: 09/23/24Order Info: 0786-1 - CMP Performed By: #### L 3100.5475, L500.4050, L100.0500 ####[facility] [address] [place], [address] Sodium [Moles/Vol] 136 mmol/L Normal 133-145 [facility] Comment on above: Order Comment: Order Date: 09/23/24Order Info: 0786-1 - CMP Performed By: #### L 3100.5475, L500.4050, L100.0500 ####[facility] [address] [place], [place], [id number] T PROT 7.2 g/dL Normal 5.9-8.4 [facility] Comment on above: Order Comment: Order Date: 09/23/24Order Info: 0786-1 - CMP Performed By: #### L 3100.5475, L500.4050, L100.0500 ####[facility] [address] [place], [address] Urea nitrogen [Mass/Vol] 26 mg/dL High 4-19 [facility] Comment on above: Order Comment: Order Date: 09/23/24Order Info: 0786-1 - CMP Performed By: #### L 3100.5475, L500.4050, L100.0500 ####[facility] [address] [place], [place], [address] Erythrocyte distribution wid th ratioOrdered By: Jian Viveros on 09-23-2024 Erythrocyte distribution width (RBC) [Ratio] 12.6 % 11.6-14.6 [facility] Erythrocyte distribution wid th standard deviationOrdered By: Jian Viveros on 09-23-2024 Erythrocyte distribution width (RBC) [Ratio] 45.1 fl High 35.1-43.9 [facility] Glomerular filtration rate ( GFR) estimation/1.73 sq m using serum, plasma, or whole bOrdered By: Jian Viveros on 09-23-2024 GFR/1.73 sq M.predicted among non-blacks MDRD (S/P/Bld) [Vol rate/Area] 38 mL/min/{1.73_m2} Low >60 [facility] Comment on above: mL/min/1.73m2 CKD-EP I Creatinine Equation (2020) Hematocrit Auto (Bld) [Volum e fraction]Ordered By: Jian Viveros on 09-23-2024 Hematocrit (Bld) [Volume fraction] 34.9 % Low 37-47 [facility] Hemoglobin measurementOrdere d By: Jian Viveros on 09-23-2024 Hemoglobin (Bld) [Mass/Vol] 11.3 g/dL Low 12.0-15.0 [facility] Iron measurement (mass/mass) Ordered By: Jian Viveros on 09-23-2024 Iron (Unsp spec) [Mass/Mass] 63 ug/dL 50-170 [facility] Laboratory - Chemistry and C hemistry - challengeOrdered By: Jian Viveros on 09-23-2024 AST [Catalytic activity/Vol] 44 U/L High <32 [facility] MCV (mean corpuscular volume ) determinationOrdered By: Jian Viveros on 09-23-2024 MCV (RBC) [Entitic vol] 96.7 fL 81-99 [facility] Mean corpuscular hemoglobin (MCH) determinationOrdered By: Jian Viveros on 09-23-2024 MCH (RBC) [Entitic mass] 31.3 pg 27.0-32.0 [facility] Mean corpuscular hemoglobin concentration (MCHC) determinationOrdered By: Jian Viveros on 09-23-2024 MCHC (RBC) [Mass/Vol] 32.4 g/dL 32-36 [facility] Mean platelet volume determi nationOrdered By: Jian Viveros on 09-23-2024 Platelet mean volume (Bld) [Entitic vol] 9.7 fL 6.2-12.0 [facility] No Panel InformationOrdered By: Jian Viveros on 09-23-2024 Unsaturated Iron Binding Capacity 256 ug/dL 228-428 [facility] Platelet countOrdered By: Nighat Viveros on 09-23-2024 Platelets (Bld) [#/Vol] 270 10*3/uL 150-450 [facility] Potassium measurement (mass/ volume)Ordered By: Jian Viveros on 09-23-2024 Potassium (Unsp spec) [Mass/Vol] 4.4 mmol/L 3.3-5.1 [facility] RBC Auto (Bld) [#/Vol]Ordere d By: Jian Viveros on 09-23-2024 RBC (Bld) [#/Vol] 3.61 10*6/uL Low 4.2-5.4 [facility] Serum creatinine measurement (mass/volume)Ordered By: Jian Viveros on 09-23-2024 Creatinine [Mass/Vol] 1.34 mg/dL High 0.70-1.20 [facility] Serum globulin measurementOr dered By: Jian Viveros on 09-23-2024 Globulin (S) [Mass/Vol] 3.1 g/dL 2.2-4.2 [facility] Serum glucose measurement (m ass/volume)Ordered By: Jian Viveros on 09-23-2024 Glucose [Mass/Vol] 94 mg/dL 70-99 [facility] Serum or plasma alanine murphy otransferase (ALT) measurementOrdered By: Jian Viveros on 09-23-2024 ALT [Catalytic activity/Vol] 32 U/L <35 [facility] Serum or plasma albumin benigno urement (mass/volume)Ordered By: Jian Viveros on 09-23-2024 Albumin [Mass/Vol] 4.2 g/dL 3.4-4.8 [facility] Serum or plasma albumin/glob ulin mass ratioOrdered By: Jian Viveros on 09-23-2024 Albumin/Globulin [Mass ratio] 1.3 {ratio} 0.9-2.4 [facility] Serum or plasma alkaline marlene sphatase measurementOrdered By: Jian Viveros on 09-23-2024 ALP [Catalytic activity/Vol] 106 U/L High 35-104 [facility] Serum or plasma calcium benigno urement (mass/volume)Ordered By: Jian Viveros on 09-23-2024 Calcium [Mass/Vol] 9.5 mg/dL 7.6-11.0 [facility] Serum or plasma ferritin leslie surement (mass/volume)Ordered By: Jian Viveros on 09-23-2024 Ferritin [Mass/Vol] 30 ng/mL 22-378 [facility] Serum or plasma iron saturat ion measurement (mass fraction)Ordered By: Jian Viveros on 09-23-2024 Iron saturation [Mass fraction] 20.0 % 13-59 [facility] Serum or plasma thiamine leslie surement (mass/volume)Ordered By: Jian Viveros on 09-23-2024 Thiamine [Mass/Vol] 104.5 nmol/L 66.5-200.0 [facility] Comment on above: Performed at: - [address] [id number] Director: Rick Boone MD, Phone: [phone] Serum or plasma urea nitroge n measurement (mass/volume)Ordered By: Jian Viveros on 09-23-2024 Urea nitrogen [Mass/Vol] 26 mg/dL High 4-19 [facility] Sodium levelOrdered By: Jian Viveros on 09-23-2024 Sodium [Moles/Vol] 136 mmol/L 133-145 [facility] Total proteinOrdered By: Raghu Viveros on 09-23-2024 Protein [Mass/Vol] 7.2 g/dL 5.9-8.4 [facility] Vitamin B12on 09-23-2024 Cobalamin (Vitamin B12) [Mass/Vol] 331 pg/mL Normal 180-914 [facility] Comment on above: Order Comment: Order Date: 09/23/24Order Info: 0786-1 - CMP Performed By: #### L 503.0106, L503.6030, L503.6550, L3300.8000, L3300.8200 ####[facility] Rxomipdnny0086 [facility] [address] [place], [place], [id number] Vitamin B12 ser/plasOrdered By: Jian Viveros on 09-23-2024 Cobalamin (Vitamin B12) [Mass/Vol] 331 pg/mL 180-914 [facility] White blood cell (WBC) count Ordered By: Jian Viveros on 09-23-2024 WBC (Bld) [#/Vol] 8.9 10*3/uL 4.4-11.0 [facility] Pacemaker Checkon 08-14-2024 Pacemaker Check [facility] [address] [place], [place] [address] Pacemaker Check Date of Service: 05/1642 MR#: [id number] Acct: [id number] Name: TRINIDAD PARKER Rep #: [id number] : 1935 From: Nikki Roni Age/Sex: 89/F Location: [facility] Status: Signed Billing Codes PM Device Codes: 87149 PM Dev Prog Eval, Dual Assessment and Plan Assessment and Plan (1) Sick sinus syndrome: Status: Chronic (2) Complete heart block: Status: Chronic Comment: Patient has complete heart block and is pacer dependent. The pacemaker device check was normal May 31, 2023. She has 1.4 years of battery life. (3) Presence of permanent cardiac pacemaker: Status: Chronic Comment: Pacemaker implant 12/18/06; Generator change 04/19/15 (4) Paroxysmal atrial fibrillation: Status: Chronic Comment: The patient is on amiodarone 200 mg daily with metoprolol. The patient is currently tolerating her medical regiment. She denies any nuisance bleeding. We discussed spreading out her metoprolol and lisinopril if she continues to be lightheaded and dizzy I would discontinue the metoprolol completely. She does have an elevated TSH and this is managed by her primary service. (5) Paroxysmal atrial flutter: Status: Chronic 08/14/241643 Date Nikki Tamayo Heather Signature: Date (if applicable) CC: Normal [facility] TXT:Device Implant / Explant on 08-08-2024 TXT:Device Implant / Explant [facility] Imaging Services [address] [place] [address] TXT:Device Implant / Explant MR#: [id number] Acct: [id number] Name: TRINIADD PARKER Rep #: [id number] : 1935 89 From: Pako Morocho MD PCP: Dr. Jian Viveros MD Status:[facility] Patient: TRINIDAD PARKER Study Date: 08/08/2024 Performing: Pako Morocho MD : 1935 Age: 89 Gender: female PROCEDURES PERFORMED LP07-(40127)BATTERY REMOVAL+REPLACEMENT PACER-DUAL LEAD INDICATIONS Atrioventricular (AV) block PROCEDURE DETAILS The patient was brought to the Catheterization Lab in the postabsorptive nonsedated state. Informed consent was obtained prior to the procedure. Local anesthetic was given subcutaneously to the right subclavian region with Lidocaine 2%. Incision was made to the right subclavicular area. PPM generator was attached to the lead(s) and inserted into the pocket. PPM generator was then interrogated by the object oriented programmer. Device pocket was irrigated with antibiotic. The PPM generator was sutured in place with 3-0 Vicryl. Local anesthetic was given subcutaneously to the right subclavian region with Lidocaine 2%. Subcutaneous closure was completed with 3-0 Vicryl. Skin closure was completed with 4-0 Vicryl. The patient tolerated the procedure well. Estimated Blood Loss: 15 ml's IMPLANTED / EX-PLANTED DEVICES EXPLANTED DEVICE(S): PPM Generator - Customer Operations Associate: [employer], Model # [id number] , Serial # [id number] IMPLANTED DEVICE(S): PPM Generator - Customer Operations Associate: [employer], Model # ASSURITY MRI , Serial # [id number] DEVICE PARAMETERS DEVICE PARAMETERS: Mode- DDDR Lower rate- 60 Upper rate- 120 CONCLUSIONS / RECOMMENDATIONS Device Conclusions: Successful implantation of a dual chamber pacemaker battery change and replacement Device Recommendations: Follow up with Primary Care Physician PROCEDURE MEDICATIONS Fentanyl 50 mcg IV Versed 1 mg IV Oxygen: 2 L/min via nasal cannula Antibiotic given in appropriate timeframe. Clindamycin 900 mg IV 08/08/2024 08:58:00 Signed By Pako Morocho MD On 08/08/2024 09:56:51 Pako Morocho MD 08/08/2457 Date Pako Romero Signature: Date (if indicated) CC: Dr. Pako Morocho MD; Dr. Jian Viveros MD Date Dictated: 08/08/24906 Date Transcribed: 08/08/24955 Terminal Worker: [place] Signed Normal [facility] Anion gap in Serum or Plasma Ordered By: Jin Barnes on 07-29-2024 Anion gap [Moles/Vol] 11 mmol/L 07-31 [facility] BUN/creatinine ratioOrdered By: Jin Barnes on 07-29-2024 Urea nitrogen/Creatinine [Mass ratio] 19.4 mg/mg 01-05 [facility] Basic Metabolic Profile (BMP )on 07-29-2024 BUN/CRE 19.4 RATIO Normal 01-05 [facility] Comment on above: Order Comment: For P PM generator change Performed By: #### L 500.2500, L300.3900, L100.0500, L400.0001 #### [facility] [address] [place], [address] Calcium [Mass/Vol] 9.8 mg/dL Normal 7.6-11.0 [facility] Comment on above: Order Comment: For P PM generator change Performed By: #### L 500.2500, L300.3900, L100.0500, L400.0001 #### [facility] [address] [place], [address] Chloride [Moles/Vol] 102 mmol/L Normal 98-108 [facility] Comment on above: Order Comment: For P PM generator change Performed By: #### L 500.2500, L300.3900, L100.0500, L400.0001 #### [facility] [address] [place], [address] CO2 [Moles/Vol] 22.6 mmol/L Normal 21.0-32.0 [facility] Comment on above: Order Comment: For P PM generator change Performed By: #### L 500.2500, L300.3900, L100.0500, L400.0001 #### [facility] [address] [place], [address] Creatinine [Mass/Vol] 1.38 mg/dL High 0.70-1.20 [facility] Comment on above: Order Comment: For P PM generator change Performed By: #### L 500.2500, L300.3900, L100.0500, L400.0001 #### [facility] [address] [place], [address] GAP 11 Normal 5-15 [facility] Comment on above: Order Comment: For P PM generator change Performed By: #### L 500.2500, L300.3900, L100.0500, L400.0001 #### [facility] [address] [place], [address] GFR/1.73 sq M.predicted among non-blacks MDRD (S/P/Bld) [Vol rate/Area] 37 mL/min/{1.73_m2} Low >60 [facility] Comment on above: Order Comment: For P PM generator change Result Comment: mL/m in/1.73m2 CKD-EPI Creatinine Equation (2020) Performed By: #### L 500.2500, L300.3900, L100.0500, L400.0001 #### [facility] [address] [place], [address] Glucose [Mass/Vol] 107 mg/dL High 70-99 [facility] Comment on above: Order Comment: For P PM generator change Performed By: #### L 500.2500, L300.3900, L100.0500, L400.0001 #### [facility] [address] [place], [address] Potassium [Moles/Vol] 4.7 mmol/L Normal 3.3-5.1 [facility] Comment on above: Order Comment: For P PM generator change Performed By: #### L 500.2500, L300.3900, L100.0500, L400.0001 #### [facility] [address] [place], [address] Sodium [Moles/Vol] 136 mmol/L Normal 133-145 [facility] Comment on above: Order Comment: For P PM generator change Performed By: #### L 500.2500, L300.3900, L100.0500, L400.0001 #### [facility] [address] [place], [address] Urea nitrogen [Mass/Vol] 27 mg/dL High 4-19 [facility] Comment on above: Order Comment: For P PM generator change Performed By: #### L 500.2500, L300.3900, L100.0500, L400.0001 #### [facility] [address] [place], [address] Bilirubin Test strip Ql (U)O rdered By: Jin Barnes on 07-29-2024 Bilirubin Ql (U) Negative Negative [facility] CBC-Complete Blood Cnt No Di ffon 07-29-2024 Erythrocyte distribution width (RBC) [Ratio] 12.3 % Normal 11.6-14.6 [facility] Comment on above: Order Comment: Comme nts: For PPM generator change Performed By: #### L 500.2500, L300.3900, L100.0500, L400.0001 #### [facility] [address] [place], [address] Hematocrit (Bld) [Volume fraction] 37.0 % Normal 37-47 [facility] Comment on above: Order Comment: Comme nts: For PPM generator change Performed By: #### L 500.2500, L300.3900, L100.0500, L400.0001 #### [facility] [address] [place], [address] Hemoglobin (Bld) [Mass/Vol] 12.3 g/dL Normal 12.0-15.0 [facility] Comment on above: Order Comment: Comme nts: For PPM generator change Performed By: #### L 500.2500, L300.3900, L100.0500, L400.0001 #### [facility] [address] [place], [address] MCH (RBC) [Entitic mass] 32.5 pg High 27.0-32.0 [facility] Comment on above: Order Comment: Comme nts: For PPM generator change Performed By: #### L 500.2500, L300.3900, L100.0500, L400.0001 #### [facility] [address] [place], [address] MCHC (RBC) [Mass/Vol] 33.2 g/dL Normal 32-36 [facility] Comment on above: Order Comment: Comme nts: For PPM generator change Performed By: #### L 500.2500, L300.3900, L100.0500, L400.0001 #### [facility] [address] [place], [address] MCV (RBC) [Entitic vol] 97.6 fL Normal 81-99 [facility] Comment on above: Order Comment: Comme nts: For PPM generator change Performed By: #### L 500.2500, L300.3900, L100.0500, L400.0001 #### [facility] [address] [place], [address] Platelet mean volume (Bld) [Entitic vol] 9.7 fL Normal 6.2-12.0 [facility] Comment on above: Order Comment: Comme nts: For PPM generator change Performed By: #### L 500.2500, L300.3900, L100.0500, L400.0001 #### [facility] [address] [place], [address] Platelets (Bld) [#/Vol] 260 10*3/uL Normal 150-450 [facility] Comment on above: Order Comment: Comme nts: For PPM generator change Performed By: #### L 500.2500, L300.3900, L100.0500, L400.0001 #### [facility] [address] [place], [address] RBC (Bld) [#/Vol] 3.79 10*6/uL Low 4.2-5.4 [facility] Comment on above: Order Comment: Comme nts: For PPM generator change Performed By: #### L 500.2500, L300.3900, L100.0500, L400.0001 #### [facility] [address] [place], [address] RDW SD 44.9 fl High 35.1-43.9 [facility] Comment on above: Order Comment: Comme nts: For PPM generator change Performed By: #### L 500.2500, L300.3900, L100.0500, L400.0001 #### [facility] [address] [place], [address] WBC (Bld) [#/Vol] 9.6 10*3/uL Normal 4.4-11.0 [facility] Comment on above: Order Comment: Comme nts: For PPM generator change Performed By: #### L 500.2500, L300.3900, L100.0500, L400.0001 #### [facility] [address] [place], [address] Carbon dioxide, total [Moles /volume] in Central venous bloodOrdered By: Jin Barnes on 07-29-2024 CO2 [Moles/Vol] 22.6 mmol/L 21.0-32.0 [facility] Cardiology Visit Reporton Cardiology Visit Report [facility] [address] [place] [address] OFFICE VISIT Date of Service: 07/29/24 MR#: [id number] Acct: [id number] Name: TRINIDAD PARKER Rep #: [id number] : 1935 Provider: Dr. Jin vargas MD Age/Sex: 89/F Location: [facility] Status: Signed HPI HPI History of Present Illness Details: Patient is 89-year-old white female who comes in with her ST and aide that assists her with her medical care. Patient carries a history of coronary disease status post remote stenting of the circumflex in May 2017 she was recath in August 2017 and the stent was widely patent. The patient is intolerant to aspirin due to GI upset she only has mild residual coronary disease in her cath August 2017. Patient carries a history of hyperlipidemia. She is not certain if she is taken statins or not. She also has a permanent pacemaker in place that is at end-of-life. She is being scheduled for generator change. This is monitored through the [facility]. Patient also carries a history of hypertension her blood pressure was elevated at 180/84 in the office today she brought in several readings from home that vary from 115 systolic up to 163. Patient also had a remote PE in 2019 and is on Eliquis she also has a history of paroxysmal atrial fibrillation on amiodarone and oral anticoagulation with Eliquis. Her device check today showed no evidence of atrial fibrillation. She was last cardioverted April 2020 due to being dizzy. Patient does have a history of carotid disease her left internal carotid artery had an 70% stenosis and a calcified plaque in June 2022 there is moderate to high-grade stenosis in the right internal carotid artery. The patient reports that she had some type of numbness in her left neck after her left internal carotid endarterectomy and refuses to go back to the surgeon to be evaluated. Intake Vital Signs 02/11/24 13:42 07/29/24 13:26 Height 5 ft 5 ft Weight: 140 lb BMI 27.3 BP 180/84 H Blood Pressure Location Lt brachial Position Sitting Respiration 18 Pulse 55 L Pulse Source Monitor Pulse Oximetry (%) 98 Oxygen Delivery Method room air Intake Visit Reasons: 1 Y FU/Sees Jade @ 1 Oil Boiler Required: No Accompanied by: Aide Is patient in pain?: No Allergies Penicillins (PCN) Allergy (Verified 07/29/24 13:27) Hives aspirin Adverse Reaction (Severe, Verified 07/29/24 13:27) Severe GI upset atorvastatin Adverse Reaction (Severe, Verified 07/29/24 13:27) elevated liver enzymes metformin Adverse Reaction (Verified 07/29/24 13:27) gi upset Medications ???Medication ???Instructions ???Recorded ???Confirmed ???Type nitroglycerin 0.4 mg sublingual 0.4 mg sublingual Q5-15M PRN chest 08/03/18 07/29/24 Rx tablet pain #25 tabs vit C 250 mg-vit E 90 mg-zinc 40 1 cap PO BID eye health 12/04/21 0 07/29/24 History mg-copper 1 [id number]-unycjk capsule (PreserVision AREDS-2) magnesium oxide 400 mg PO DAILY SUPPLEMENT 3 07/29/24 History albuterol sulfate 90 mcg/actuation 2 puff inhalation Q4H PRN 07/29/24 History aerosol inhaler cholecalciferol (vitamin D3) 125 125 mcg PO DAILY 06/19/23 07/29/24 History mcg (5,000 unit) capsule fluticasone propionate 50 1 spray intranasal DAILY 06/19/23 07/29/24 History mcg/actuation nasal spray,suspension vitamin B complex 1 tab PO DAILY 06/19/23 07/29/24 H istory apixaban 5 mg tablet 5 mg PO BID blood thinner #180 tab s 07/11/23 07/29/24 Rx lisinopril 20 mg tablet 20 mg PO DAILY #90 TABLETS 4 07/29/24 Rx metoprolol tartrate 25 mg tablet 25 mg PO BID 02/11/24 07/29/24 His tory amiodarone 200 mg tablet 200 mg PO DAILY heart #90 tabs 07/29/24 Rx amlodipine 5 mg tablet 2.5 mg PO QDAY 07/29/24 07/29/24 H istory levothyroxine 125 mcg tablet 125 mcg PO QDAY 07/29/24 07/29/24 History omeprazole 40 mg capsule,delayed 40 mg PO QAM 07/29/24 07/29/24 His tory release Ejection fraction %: 65 Have you fallen in the past year?: Yes [facility] Medical History History of steroid therapy Vertigo Seasonal allergies Wears glasses Wears dentures Post-menopausal Depression Ambulates with cane Walker as ambulation aid Arthritis DVT (deep venous thrombosis) Easy bruising Excessive bleeding Restless legs History of ulceration Gastric reflux On home oxygen therapy Former smoker Chronic cough Leg cramps History of echocardiogram Cardiology follow-up encounter History of atrial fibrillation Atrial fibrillation with rapid ventricular response (01/21/20) Paroxysmal atrial fibrillation Paroxysmal atrial flutter Bilateral carotid artery stenosis Right bundle branch block (RBBB) with l (more content not included)... Normal [facility] Chest PA and Lateralon 07-29 Chest PA and Lateral [facility] Imaging Services [facility] [place], [place] [address] Chest PA and Lateral MR#: [id number] Acct: [id number] Name: TRINIDAD PARKER Rep #: [id number] : 1935 F 89 From: Cristopher Harry MD PCP: Dr. Jian Viveros MD Status: [facility] Study: Chest PA and Lateral Date of Exam: 07/29/24 Exam# [id number] Ordering Dr: Jin Barnes MD PROCEDURE: CHEST PA AND LATERAL 07/29/2024 REASON FOR EXAM: FOR PPM GENERATOR CHANGE TECHNIQUE: Frontal and lateral views of the chest. COMPARISON: October 11, 2023 FINDINGS: There is a right-sided cardiac device with wires in position. Heart size is within normal limits. Central vascularity is normal. Stable calcified granulomas are noted in the right and left. There is no acute infiltrate or consolidation. Aortic calcifications are visible. Hardware is partly visible in the lumbar region. RAD/Chest PA and Lateral IMPRESSION: No acute process is identified in the chest. Reading Location: [facility] CC: Dr. Jian Viveros MD; Dr. Jin Barnes MD Terminal Worker: Signed [facility] Chloride assayOrdered By: Marjan Barnes on 07-29-2024 Chloride [Moles/Vol] 102 mmol/L 98-108 [facility] Erythrocyte distribution wid th ratioOrdered By: Jin Barnes on 07-29-2024 Erythrocyte distribution width (RBC) [Ratio] 12.3 % 11.6-14.6 [facility] Erythrocyte distribution wid th standard deviationOrdered By: Jin Barnes on 07-29-2024 Erythrocyte distribution width (RBC) [Ratio] 44.9 fl High 35.1-43.9 [facility] Glomerular filtration rate ( GFR) estimation/1.73 sq m using serum, plasma, or whole bOrdered By: Jin Barnes on 07-29-2024 GFR/1.73 sq M.predicted among non-blacks MDRD (S/P/Bld) [Vol rate/Area] 37 mL/min/{1.73_m2} Low >60 [facility] Comment on above: mL/min/1.73m2 CKD-EP I Creatinine Equation (2020) Hematocrit Auto (Bld) [Volum e fraction]Ordered By: Jin Barnes on 07-29-2024 Hematocrit (Bld) [Volume fraction] 37.0 % 37-47 [facility] Hemoglobin measurementOrdere d By: Jin Barnes on 07-29-2024 Hemoglobin (Bld) [Mass/Vol] 12.3 g/dL 12.0-15.0 [facility] International normalized rat io (INR) calculationOrdered By: Jin Barnes on 07-29-2024 INR Coag (Bld) [Relative time] 1.3 {INR} [facility] Ketones Test strip Ql (U)Ord ered By: Jin Barnes on 07-29-2024 Ketones Ql (U) Negative Negative [facility] MCV (mean corpuscular volume ) determinationOrdered By: Jin Barnes on 07-29-2024 MCV (RBC) [Entitic vol] 97.6 fL 81-99 [facility] Mean corpuscular hemoglobin (MCH) determinationOrdered By: Jin Barnes on 07-29-2024 MCH (RBC) [Entitic mass] 32.5 pg High 27.0-32.0 [facility] Mean corpuscular hemoglobin concentration (MCHC) determinationOrdered By: Jin Barnes on 07-29-2024 MCHC (RBC) [Mass/Vol] 33.2 g/dL 32-36 [facility] Mean platelet volume determi nationOrdered By: Jin Barnes on 07-29-2024 Platelet mean volume (Bld) [Entitic vol] 9.7 fL 6.2-12.0 [facility] Microscopic analysis of urin e for red blood cells (RBC)Ordered By: Jin Barnes on 07-29-2024 Microscopic analysis of urine for red blood cells (RBC) 0-5 SEEN /hpf 0-5 [facility] Mucus LM Ql (Urine sed)Order ed By: Jin Barnes on 07-29-2024 Mucus Ql (Urine sed) 0 SEEN /hpf [facility] Nitrite Test strip Ql (U)Ord ered By: Jin Barnes on 07-29-2024 Nitrite Ql (U) Negative Negative [facility] Pacemaker Checkon 07-29-2024 Pacemaker Check [facility] [address] [place] [address]. [address] [place] [address] Pacemaker Check Date of Service: 07/29/24 1352 MR#: [id number] Acct: [id number] Name: TRINIDAD PARKER Rep #: [id number] : 1935 From: Nikki Tamayo Age/Sex: 89/F Location: [facility] Status: Signed Billing Codes PM Device Codes: 93071 PM Dev Prog Eval, Dual Assessment and Plan Assessment and Plan (1) Presence of permanent cardiac pacemaker: Status: Chronic Comment: Pacemaker implant 12/18/06; Generator change 04/19/15 (2) Complete heart block: Status: Chronic Comment: Patient has complete heart block and is pacer dependent. The pacemaker device check was normal May 31, 2023. She has 1.4 years of battery life. (3) Paroxysmal atrial fibrillation: Status: Chronic Comment: The patient is on amiodarone 200 mg daily with metoprolol. The patient is currently tolerating her medical regiment. She denies any nuisance bleeding. We discussed spreading out her metoprolol and lisinopril if she continues to be lightheaded and dizzy I would discontinue the metoprolol completely. She does have an elevated TSH and this is managed by her primary service. Orders: Orders CBC-Complete Blood Cnt No Diff Today I44.2 - Atrioventricular block, complete, I48.0 - Paroxysmal atrial fibrillation, Z95.0 - Presence of cardiac pacemaker Basic Metabolic Profile (BMP) Today I44.2 - Atrioventricular block, complete, I48.0 - Paroxysmal atrial fibrillation, Z95.0 - Presence of cardiac pacemaker Prothrombin Time w/INR Today I44.2 - Atrioventricular block, complete, I48.0 - Paroxysmal atrial fibrillation, Z79.01 - hand heel seat fitter (current) use of anticoagulants, Z95.0 - Presence of cardiac pacemaker Urinalysis, Complete Today I44.2 - Atrioventricular block, complete, I48.0 - Paroxysmal atrial fibrillation, Z95.0 - Presence of cardiac pacemaker Chest PA and Lateral Today I44.2 - Atrioventricular block, complete, I48.0 - Paroxysmal atrial fibrillation, Z95.0 - Presence of cardiac pacemaker Pacemaker Generator Change 08/08/24 I44.2 - Atrioventricular block, complete, I48.0 - Paroxysmal atrial fibrillation, Z95.0 - Presence of cardiac pacemaker 07/29/24 1353 Date Nikki Roni Heather Signature: Date (if applicable) CC: Normal [facility] Platelet countOrdered By: Marjan Barnes on 07-29-2024 Platelets (Bld) [#/Vol] 260 10*3/uL 150-450 [facility] Potassium measurement (mass/ volume)Ordered By: Jin Barnes on 07-29-2024 Potassium (Unsp spec) [Mass/Vol] 4.7 mmol/L 3.3-5.1 [facility] Protein Test strip Ql (U)Ord ered By: Jin Barnes on 07-29-2024 Protein Ql (U) 15 mg/dl High Negative [facility] Prothrombin Time w/INRon INR Coag (PPP) [Relative time] 1.3 {INR} Normal [facility] Comment on above: Order Comment: Comme nts: For PPM generator change Performed By: #### L 500.2500, L300.3900, L100.0500, L400.0001 #### [facility] [address] [place], [address] PT Coag (PPP) [Time] 16.7 s High 11.7-14.9 [facility] Comment on above: Order Comment: Comme nts: For PPM generator change Performed By: #### L 500.2500, L300.3900, L100.0500, L400.0001 #### [facility] [address] [facility] [address] [place], [place], [address] [phone] Prothrombin timeOrdered By: Jin Barnes on 07-29-2024 PT Coag (PPP) [Time] 16.7 s High 11.7-14.9 [facility] RBC Auto (Bld) [#/Vol]Ordere d By: Jin Barnes on 07-29-2024 RBC (Bld) [#/Vol] 3.79 10*6/uL Low 4.2-5.4 [facility] Serum creatinine measurement (mass/volume)Ordered By: Jin Barnes on 07-29-2024 Creatinine [Mass/Vol] 1.38 mg/dL High 0.70-1.20 [facility] Serum glucose measurement (m ass/volume)Ordered By: Jin Barnes on 07-29-2024 Glucose [Mass/Vol] 107 mg/dL High 70-99 [facility] Serum or plasma calcium benigno urement (mass/volume)Ordered By: Jin Barnes on 07-29-2024 Calcium [Mass/Vol] 9.8 mg/dL 7.6-11.0 [facility] Serum or plasma urea nitroge n measurement (mass/volume)Ordered By: Jin Barnes on 07-29-2024 Urea nitrogen [Mass/Vol] 27 mg/dL High 4-19 [facility] Sodium levelOrdered By: Medhat Barnes on 07-29-2024 Sodium [Moles/Vol] 136 mmol/L 133-145 [facility] Squamous epithelial cells de tection in urine sediment by light microscopyOrdered By: Jin Barnes on 07-29-2024 Epithelial cells.squamous LM Ql (Urine sed) 0-5 SEEN /hpf 5-10 [facility] Urinalysis, Completeon 07-29 [facility] Normal None Seen [facility] Comment on above: Order Comment: For P PM generator change CUSTOMER DEVELOPMENT REPRESENTATIVE TO SPECIFY Performed By: #### L 500.2500, L300.3900, L100.0500, L400.0001 #### [facility] [address] [place], [address] RBC 0-5 SEEN Normal 0-5 [facility] Comment on above: Order Comment: For P PM generator change CUSTOMER DEVELOPMENT REPRESENTATIVE TO SPECIFY Performed By: #### L 500.2500, L300.3900, L100.0500, L400.0001 #### [facility] [address] [place], [address] WBC 0-5 SEEN Normal 0-5 [facility] Comment on above: Order Comment: For P PM generator change CUSTOMER DEVELOPMENT REPRESENTATIVE TO SPECIFY Performed By: #### L 500.2500, L300.3900, L100.0500, L400.0001 #### [facility] [address] [place], [address] EPI,SQUAMOUS 0-5 SEEN Normal 5-10 [facility] Comment on above: Order Comment: For P PM generator change CUSTOMER DEVELOPMENT REPRESENTATIVE TO SPECIFY Performed By: #### L 500.2500, L300.3900, L100.0500, L400.0001 #### [facility] [address] [place], [address] Mucus Ql (Urine sed) 0 SEEN Normal [facility] Comment on above: Order Comment: For P PM generator change CUSTOMER DEVELOPMENT REPRESENTATIVE TO SPECIFY Performed By: #### L 500.2500, L300.3900, L100.0500, L400.0001 #### [facility] [address] [place], [address] Urine clarityOrdered By: Arnav Barnes on 07-29-2024 Clarity (U) Clear Clear [facility] Urine color determinationOrd ered By: Jin Barnes on 07-29-2024 Color (U) Straw Yellow [facility] Urine glucose detectionOrder ed By: Jin Barnes on 07-29-2024 Glucose Ql (U) Normal mg/dl Normal [facility] Urine leukocyte esterase det ection by dipstickOrdered By: Jin Barnes on 07-29-2024 Leukocyte esterase Test strip Ql (U) Negative Negative [facility] Urine pHOrdered By: Jin Barnes on 07-29-2024 pH (U) 6.5 [pH] 5.0 - 8.0 [facility] Urine sediment bacteria coun t by microscopy (number/high power field)Ordered By: Jin Barnes on 07-29-2024 Bacteria LM.HPF (Urine sed) [#/Area] RARE /hpf None Seen [facility] Urine specific gravity measu rementOrdered By: Jin Barnes on 07-29-2024 Specific gravity (U) [Rel density] 1.010 1.002-1.03 0 [facility] Urine urobilinogen measureme ntOrdered By: Jin Barnes on 07-29-2024 Urobilinogen Ql (U) Normal mg/dl Normal [facility] White blood cell (WBC) count Ordered By: Jin Barnes on 07-29-2024 WBC (Bld) [#/Vol] 9.6 10*3/uL 4.4-11.0 [facility] White blood cell countOrdere d By: Jin Barnes on 07-29-2024 White blood cell count 0-5 SEEN /hpf 0-5 [facility] L3300.8200on 06-05-2024 VITAMIN B6 77.3 ug/L High 3.4-65.2 [facility] Comment on above: Order Comment: Test( s) 547376-Cfvkctg B6was developed and its performance characteristicsdetermined by [employer]. It has not been cleared or approvedby the Food and Drug Administration. Result Comment: Defi ciency: <3.4 Marginal: 3.4 - 5.1 Adequate: >5.1 Performed By: #### L 3300.8000, L3300.8200, L506.1001, L503.0106 ####[facility] [address] [place], [place], [address] Vitamin B1, Thiamineon 06-05 VIT B1 THIAMINE 104.8 nmol/L Normal 66.5-200.0 [facility] Comment on above: Order Comment: Test( s) 661343-Bfpehoy B6was developed and its performance characteristicsdetermined by [facility]. It has not been cleared or approvedby the Food and Drug Administration. Result Comment: Perf ormed at: - [facility] [id number] [employer] Operator: Rick Boone MD, Phone: [phone] Performed By: #### L 3300.8000, L3300.8200, L506.1001, L503.0106 ####[facility] [address] [place], [place], [address] Absolute lymphocyte countOrd ered By: Jian Viveros on 05-29-2024 Lymphocytes Auto (Unsp spec) [#/Vol] 0.99 10*3/uL 0.83-4.51 [facility] Absolute neutrophil countOrd ered By: Jian Viveros on 05-29-2024 Neutrophils (Bld) [#/Vol] 6.2 10*3/uL 2.0-7.7 [facility] Anion gap in Serum or Plasma Ordered By: Jian Viveros on 05-29-2024 Anion gap [Moles/Vol] 13 mmol/L 5-15 [facility] Automated lymphocyte count a s percentage of total leukocytesOrdered By: Jian Viveros on 05-29-2024 Lymphocytes/100 WBC Auto (Unsp spec) 12.5 % Low 19-41 [facility] BUN/creatinine ratioOrdered By: Jian Viveros on 05-29-2024 Urea nitrogen/Creatinine [Mass ratio] 15.1 mg/mg 10-20 [facility] Basophil percentageOrdered B y: Jian Viveros on 05-29-2024 Basophils/100 WBC (Bld) 0.6 % 0-1 [facility] Bilirubin, totalOrdered By: Jian Viveros on 05-29-2024 Bilirubin [Mass/Vol] 0.40 mg/dL 0.00-1.30 [facility] CBC W/Diff, Automatedon 05-17-2024 Absolute Lymph 0.99 X10 3/uL Normal 0.83-4.51 [facility] Comment on above: Order Comment: Order Date: 05/29/24Order Info: [id number]- - CBCD Performed By: #### L 500.4050, L506.0400, L501.9520, L509.1000, L501.5200, L500.4100, L100.0100 ####[facility] [address] [place], [address] Absolute Neut 6.2 X10 3/uL Normal 2.0-7.7 [facility] Comment on above: Order Comment: Order Date: 05/29/24Order Info: 0184- - CBCD Performed By: #### L 500.4050, L506.0400, L501.9520, L509.1000, L501.5200, L500.4100, L100.0100 ####[facility] [address] [place], [address] Basophils/100 WBC (Bld) 0.6 % Normal 0-1 [facility] Comment on above: Order Comment: Order Date: 05/29/24Order Info: 0184- - CBCD Performed By: #### L 500.4050, L506.0400, L501.9520, L509.1000, L501.5200, L500.4100, L100.0100 ####[facility] [address] [place], [address] Eosinophils/100 WBC (Bld) 1.1 % Normal 0-5 [facility] Comment on above: Order Comment: Order Date: 05/29/24Order Info: 0184- - CBCD Performed By: #### L 500.4050, L506.0400, L501.9520, L509.1000, L501.5200, L500.4100, L100.0100 ####[facility] [address] [place], [address] Erythrocyte distribution width (RBC) [Ratio] 12.7 % Normal 11.6-14.6 [facility] Comment on above: Order Comment: Order Date: 05/29/24Order Info: [id number] - CBCD Performed By: #### L 500.4050, L506.0400, L501.9520, L509.1000, L501.5200, L500.4100, L100.0100 ####[facility] [address] [place], [address] Hematocrit (Bld) [Volume fraction] 35.2 % Low 37-47 [facility] Comment on above: Order Comment: Order Date: 05/29/24Order Info: 0184-1 - CBCD Performed By: #### L 500.4050, L506.0400, L501.9520, L509.1000, L501.5200, L500.4100, L100.0100 ####[facility] [address] [place], [place], [phone] Hemoglobin (Bld) [Mass/Vol] 11.8 g/dL Low 12.0-15.0 [facility] Comment on above: Order Comment: Order Date: 05/29/24Order Info: 0184-1 - CBCD Performed By: #### L 500.4050, L506.0400, L501.9520, L509.1000, L501.5200, L500.4100, L100.0100 ####[facility] [address] [place], [address] IG% 0.300 Normal 0.0-0.9 [facility] Comment on above: Order Comment: Order Date: 05/29/24Order Info: [id number] - CBCD Result Comment: IG% - Immature Granulocytes (promyelocytes, myelocytes and metamyelocytes) > 1% indicates that a LEFT SHIFT is Present. Performed By: #### L 500.4050, L506.0400, L501.9520, L509.1000, L501.5200, L500.4100, L100.0100 ####[facility] [address] [place], [address] Lymphocytes/100 WBC (Bld) 12.5 % Low 19-41 [facility] Comment on above: Order Comment: Order Date: 05/29/24Order Info: 0184-1 - CBCD Performed By: #### L 500.4050, L506.0400, L501.9520, L509.1000, L501.5200, L500.4100, L100.0100 ####[facility] [address] [place], [address] MCH (RBC) [Entitic mass] 33.0 pg High 27.0-32.0 [facility] Comment on above: Order Comment: Order Date: 05/29/24Order Info: 0184-1 - CBCD Performed By: #### L 500.4050, L506.0400, L501.9520, L509.1000, L501.5200, L500.4100, L100.0100 ####[facility] [address] [place], [address] MCHC (RBC) [Mass/Vol] 33.5 g/dL Normal 32-36 [facility] Comment on above: Order Comment: Order Date: 05/29/24Order Info: 0184-1 - CBCD Performed By: #### L 500.4050, L506.0400, L501.9520, L509.1000, L501.5200, L500.4100, L100.0100 ####[facility] [address] [place], [address] MCV (RBC) [Entitic vol] 98.3 fL Normal 81-99 [facility] Comment on above: Order Comment: Order Date: 05/29/24Order Info: 0184-1 - CBCD Performed By: #### L 500.4050, L506.0400, L501.9520, L509.1000, L501.5200, L500.4100, L100.0100 ####[facility] [address] [place], [address] Monocytes/100 WBC (Bld) 7.4 % Normal 0-10 [facility] Comment on above: Order Comment: Order Date: 05/29/24Order Info: 0184-1 - CBCD Performed By: #### L 500.4050, L506.0400, L501.9520, L509.1000, L501.5200, L500.4100, L100.0100 ####[facility] [address] [facility] [place], [address] Neutrophils/100 WBC (Bld) 78.1 % High 47-70 [facility] Comment on above: Order Comment: Order Date: 05/29/24Order Info: 0184-1 - CBCD Performed By: #### L 500.4050, L506.0400, L501.9520, L509.1000, L501.5200, L500.4100, L100.0100 ####[facility] [address] [facility] [place], [address] Nucleated RBC (Bld) [#/Vol] 0 10*3/uL Normal 0-5 [facility] Comment on above: Order Comment: Order Date: 05/29/24Order Info: 0184-1 - CBCD Performed By: #### L 500.4050, L506.0400, L501.9520, L509.1000, L501.5200, L500.4100, L100.0100 ####[facility] [address] [facility] [place], [address] Platelet mean volume (Bld) [Entitic vol] 9.9 fL Normal 6.2-12.0 [facility] Comment on above: Order Comment: Order Date: 05/29/24Order Info: [id number] - CBCD Performed By: #### L 500.4050, L506.0400, L501.9520, L509.1000, L501.5200, L500.4100, L100.0100 ####[facility] [address] [place], [address] Platelets (Bld) [#/Vol] 251 10*3/uL Normal 150-450 [facility] Comment on above: Order Comment: Order Date: 05/29/24Order Info: 0184-1 - CBCD Performed By: #### L 500.4050, L506.0400, L501.9520, L509.1000, L501.5200, L500.4100, L100.0100 ####[facility] [address] [place], [address] RBC (Bld) [#/Vol] 3.58 10*6/uL Low 4.2-5.4 [facility] Comment on above: Order Comment: Order Date: 05/29/24Order Info: [id number] - CBCD Performed By: #### L 500.4050, L506.0400, L501.9520, L509.1000, L501.5200, L500.4100, L100.0100 ####[facility] [address] [place], [address] RDW SD 45.7 fl High 35.1-43.9 [facility] Comment on above: Order Comment: Order Date: 05/29/24Order Info: [id number] - CBCD Performed By: #### L 500.4050, L506.0400, L501.9520, L509.1000, L501.5200, L500.4100, L100.0100 ####[facility] [address] [place], [address] WBC (Bld) [#/Vol] 7.9 10*3/uL Normal 4.4-11.0 [facility] Comment on above: Order Comment: Order Date: 05/29/24Order Info: [id number] - CBCD Performed By: #### L 500.4050, L506.0400, L501.9520, L509.1000, L501.5200, L500.4100, L100.0100 ####[facility] [address] [place], [place], [address] Calculated very low density lipoprotein (VLDL) cholesterol measurementOrdered By: Jian Viveros on 05-29-2024 Calculated very low density lipoprotein (VLDL) cholesterol measurement 17 mg/dL -40 [facility] VLDL Cholesterol 17 mg/dL -40 [facility] Carbon dioxide, total [Moles /volume] in Central venous bloodOrdered By: Jian Viveros on 05-29-2024 CO2 [Moles/Vol] 21.5 mmol/L 21.0-32.0 [facility] Chloride assayOrdered By: Nighta Viveros on 05-29-2024 Chloride [Moles/Vol] 101 mmol/L 98-108 [facility] Comprehensive Metabolic Prof ilon 05-29-2024 Albumin [Mass/Vol] 4.1 g/dL Normal 3.4-4.8 [facility] Comment on above: Order Comment: Order Date: 05/29/24Order Info: [id number]- - CMPOrder Info: [id number] - LIPIDOrder Info: [id number] - MGOrder Info: 3 - TSHOrder Info: 7 - T4F Performed By: #### L 500.4050, L506.0400, L501.9520, L509.1000, L501.5200, L500.4100, L100.0100 ####[facility] [address] [place], [place], [address] Albumin/Globulin [Mass ratio] 1.4 {ratio} Normal 0.9-2.4 [facility] Comment on above: Order Comment: Order Date: 05/29/24Order Info: [id number] - CMPOrder Info: [id number] - LIPIDOrder Info: [id number] - MGOrder Info: 3 - TSHOrder Info: [id number] - T4F Performed By: #### L 500.4050, L506.0400, L501.9520, L509.1000, L501.5200, L500.4100, L100.0100 ####[facility] [address] [place], [address] ALK PHOS 96 U/L Normal 35-104 [facility] Comment on above: Order Comment: Order Date: 05/29/24Order Info: [id number] - CMPOrder Info: [id number] - LIPIDOrder Info: [id number] - MGOrder Info: [id number] - TSHOrder Info: [id number] - T4F Performed By: #### L 500.4050, L506.0400, L501.9520, L509.1000, L501.5200, L500.4100, L100.0100 ####[facility] [address] [place], [place], [id number] ALT [Catalytic activity/Vol] 29 U/L Normal <=34 [facility] Comment on above: Order Comment: Order Date: 05/29/24Order Info: [id number] - CMPOrder Info: [id number] - LIPIDOrder Info: [id number] - MGOrder Info: [id number] - TSHOrder Info: 3024-7 - T4F Performed By: #### L 500.4050, L506.0400, L501.9520, L509.1000, L501.5200, L500.4100, L100.0100 ####[facility] [address] [place], [place], [address] AST [Catalytic activity/Vol] 36 U/L High <=31 [facility] Comment on above: Order Comment: Order Date: 05/29/24Order Info: [id number] - CMPOrder Info: [id number] - LIPIDOrder Info: [id number] - MGOrder Info: [id number] - TSHOrder Info: [id number] - T4F Performed By: #### L 500.4050, L506.0400, L501.9520, L509.1000, L501.5200, L500.4100, L100.0100 ####[facility] [address] [place], [address] Bilirubin [Mass/Vol] 0.40 mg/dL Normal 0.00-1.30 [facility] Comment on above: Order Comment: Order Date: 05/29/24Order Info: [id number] - CMPOrder Info: [id number] - LIPIDOrder Info: [id number] - MGOrder Info: [id number] - TSHOrder Info: [id number] - T4F Performed By: #### L 500.4050, L506.0400, L501.9520, L509.1000, L501.5200, L500.4100, L100.0100 ####[facility] [address] [place], [place], [phone]) BUN/CRE 15.1 RATIO Normal 10-20 [facility] Comment on above: Order Comment: Order Date: 05/29/24Order Info: [id number] - CMPOrder Info: [id number] - LIPIDOrder Info: [id number] - MGOrder Info: [id number] - TSHOrder Info: [id number] - T4F Performed By: #### L 500.4050, L506.0400, L501.9520, L509.1000, L501.5200, L500.4100, L100.0100 ####[facility] [address] [place], [place], [phone](852) Calcium [Mass/Vol] 9.3 mg/dL Normal 7.6-11.0 [facility] Comment on above: Order Comment: Order Date: 05/29/24Order Info: [id number] - CMPOrder Info: [id number] - LIPIDOrder Info: [id number] - MGOrder Info: [id number] - TSHOrder Info: [id number] - T4F Performed By: #### L 500.4050, L506.0400, L501.9520, L509.1000, L501.5200, L500.4100, L100.0100 ####[facility] [address] [place], [address] Chloride [Moles/Vol] 101 mmol/L Normal 98-108 [facility] Comment on above: Order Comment: Order Date: 05/29/24Order Info: [id number] - CMPOrder Info: [id number] - LIPIDOrder Info: [id number] - MGOrder Info: [id number] - TSHOrder Info: [id number] - T4F Performed By: #### L 500.4050, L506.0400, L501.9520, L509.1000, L501.5200, L500.4100, L100.0100 ####[facility] [address] [place], [address] CO2 [Moles/Vol] 21.5 mmol/L Normal 21.0-32.0 [facility] Comment on above: Order Comment: Order Date: 05/29/24Order Info: 86-1 - CMPOrder Info: [id number] - LIPIDOrder Info: [id number] - MGOrder Info: [id number] - TSHOrder Info: [id number] - T4F Performed By: #### L 500.4050, L506.0400, L501.9520, L509.1000, L501.5200, L500.4100, L100.0100 ####[facility] [address] [place], [address] Creatinine [Mass/Vol] 1.42 mg/dL High 0.70-1.20 [facility] Comment on above: Order Comment: Order Date: 05/29/24Order Info: [id number] - CMPOrder Info: [id number] - LIPIDOrder Info: [id number] - MGOrder Info: [id number] - TSHOrder Info: [id number] - T4F Performed By: #### L 500.4050, L506.0400, L501.9520, L509.1000, L501.5200, L500.4100, L100.0100 ####[facility] [address] [place], [place], [address] GAP 13 Normal 5-15 [facility] Comment on above: Order Comment: Order Date: 05/29/24Order Info: [id number] - CMPOrder Info: [id number] - LIPIDOrder Info: [id number] - MGOrder Info: [id number] - TSHOrder Info: 3027 - T4F Performed By: #### L 500.4050, L506.0400, L501.9520, L509.1000, L501.5200, L500.4100, L100.0100 ####[facility] [address] [place], [place], [address] GFR/1.73 sq M.predicted among non-blacks MDRD (S/P/Bld) [Vol rate/Area] 36 mL/min/{1.73_m2} Low >60 [facility] Comment on above: Order Comment: Order Date: 05/29/24Order Info: 07- - CMPOrder Info: - LIPIDOrder Info: [id number] - MGOrder Info: 3 - TSHOrder Info: 7 - T4F Result Comment: mL/m in/1.73m2 CKD-EPI Creatinine Equation (2020) Performed By: #### L 500.4050, L506.0400, L501.9520, L509.1000, L501.5200, L500.4100, L100.0100 ####[facility] [address] [place], [place], [address] Globulin (S) [Mass/Vol] 2.9 g/dL Normal 2.2-4.2 [facility] Comment on above: Order Comment: Order Date: 05/29/24Order Info: [id number] - CMPOrder Info: [id number] - LIPIDOrder Info: [id number] - MGOrder Info: 63 - TSHOrder Info: [id number] - T4F Performed By: #### L 500.4050, L506.0400, L501.9520, L509.1000, L501.5200, L500.4100, L100.0100 ####[facility] [address] [place], [address] Glucose [Mass/Vol] 93 mg/dL Normal 70-99 [facility] Comment on above: Order Comment: Order Date: 05/29/24Order Info: [id number] - CMPOrder Info: [id number] - LIPIDOrder Info: [id number] - MGOrder Info: [id number] - TSHOrder Info: [id number] - T4F Performed By: #### L 500.4050, L506.0400, L501.9520, L509.1000, L501.5200, L500.4100, L100.0100 ####[facility] [address] [place], [address] Potassium [Moles/Vol] 4.7 mmol/L Normal 3.3-5.1 [facility] Comment on above: Order Comment: Order Date: 05/29/24Order Info: 86-1 - CMPOrder Info: [id number] - LIPIDOrder Info: [id number] - MGOrder Info: [id number] - TSHOrder Info: [id number] - T4F Performed By: #### L 500.4050, L506.0400, L501.9520, L509.1000, L501.5200, L500.4100, L100.0100 ####[facility] [address] [place], [address] Sodium [Moles/Vol] 135 mmol/L Normal 133-145 [facility] Comment on above: Order Comment: Order Date: 05/29/24Order Info: [id number] - CMPOrder Info: [id number] - LIPIDOrder Info: [id number] - MGOrder Info: [id number] - TSHOrder Info: [id number] - T4F Performed By: #### L 500.4050, L506.0400, L501.9520, L509.1000, L501.5200, L500.4100, L100.0100 ####[facility] [address] [place], [place], [phone] T PROT 7.0 g/dL Normal 5.9-8.4 [facility] Comment on above: Order Comment: Order Date: 05/29/24Order Info: [id number] - CMPOrder Info: [id number] - LIPIDOrder Info: [id number] - MGOrder Info: [id number] - TSHOrder Info: [id number] - T4F Performed By: #### L 500.4050, L506.0400, L501.9520, L509.1000, L501.5200, L500.4100, L100.0100 ####[facility] [address] [place], [place], [phone] Urea nitrogen [Mass/Vol] 21 mg/dL High 4-19 [facility] Comment on above: Order Comment: Order Date: 05/29/24Order Info: [id number]- - CMPOrder Info: [id number] - LIPIDOrder Info: [id number] - MGOrder Info: 3 - TSHOrder Info: [id number] - T4F Performed By: #### L 500.4050, L506.0400, L501.9520, L509.1000, L501.5200, L500.4100, L100.0100 ####[facility] [address] [place], [place], [phone] Eosinophil percentageOrdered By: Jian Viveros on 05-29-2024 Eosinophils/100 WBC (Bld) 1.1 % 0-5 [facility] Erythrocyte distribution wid th ratioOrdered By: Jian Viveros on 05-29-2024 Erythrocyte distribution width (RBC) [Ratio] 12.7 % 11.6-14.6 [facility] Erythrocyte distribution wid th standard deviationOrdered By: Jian Viveros on 05-29-2024 Erythrocyte distribution width (RBC) [Entitic vol] 45.7 fL High 35.1-43.9 [facility] Erythrocyte distribution width (RBC) [Ratio] 45.7 fl High 35.1-43.9 [facility] GFR/1.73 sq M.predicted sebastian g non-blacks MDRD (S/P/Bld) [Vol rate/Area]Ordered By: Jian Viveros on 05-29-2024 Estimated GFR (MDRD) Non-Af Amer 36 Low >60 [facility] Comment on above: mL/min/1.73m2 CKD-EP I Creatinine Equation (2020) Glomerular filtration rate ( GFR) estimation/1.73 sq m using serum, plasma, or whole bOrdered By: Jian Viveros on 05-29-2024 GFR/1.73 sq M.predicted among non-blacks MDRD (S/P/Bld) [Vol rate/Area] 36 mL/min/{1.73_m2} Low >60 [facility] Comment on above: mL/min/1.73m2 CKD-EP I Creatinine Equation (2020) Hematocrit Auto (Bld) [Volum e fraction]Ordered By: Jian Viveros on 05-29-2024 Hematocrit (Bld) [Volume fraction] 35.2 % Low 37-47 [facility] Hemoglobin measurementOrdere d By: Jian Viveros on 05-29-2024 Hemoglobin (Bld) [Mass/Vol] 11.8 g/dL Low 12.0-15.0 [facility] Immature granulocytes/100 WB C Auto (Bld)Ordered By: Jian Viveros on 05-29-2024 Immature granulocytes/100 WBC (Bld) 0.300 % 0.0-0.9 [facility] Comment on above: IG% - Immature Granu locytes (promyelocytes, myelocytes and metamyelocytes) > 1% indicates that a LEFT SHIFT is Present. L503.0106on 05-29-2024 Cobalamin (Vitamin B12) [Mass/Vol] 270 pg/mL Normal 180-914 [facility] Comment on above: Order Comment: Order Date: 05/29/24 Order Info: [id number] - CMP Order Info: [id number] - LIPID Order Info: [id number] - MG Order Info: [id number] - TSH Order Info: [id number] - T4F Performed By: #### L 3300.8000, L3300.8200, L506.1001, L503.0106 #### [facility] [address] [place], [address] L506.1001on 05-29-2024 Vitamin D 25-OH 29.9 ng/mL Low 30-100 [facility] Comment on above: Order Comment: Order Date: 05/29/24Order Info: [id number] - CMPOrder Info: [id number] - LIPIDOrder Info: [id number] - MGOrder Info: 3015-05 - TSHOrder Info: 3023-09 - T4F Result Comment: [place] min D Status Deficiency: <20 ng/mL (50nmol/L) Insufficiency: 20-30 ng/mL (50-75 nmol/L) Sufficiency: 30-100 ng/mL (75-250 nmol/L) Toxicity: >100 ng/mL (>250 nmol/L) Performed By: #### L 3300.8000, L3300.8200, L506.1001, L503.0106 ####[facility] [address] [place], [address] LDL calc ser/plasOrdered By: Jian Viveros on 05-29-2024 Cholesterol in LDL [Mass/Vol] 135 mg/dL [facility] Comment on above: Kdvwxedrxa=035-866 m g/dL & Higher Qrio=949 mg/dL or greater LDL Cholesterol, Calculated 135 mg/dL [facility] Comment on above: Vuzrxfusbu=093-513 m g/dL & Higher Orje=121 mg/dL or greater Laboratory - Chemistry and C hemistry - challengeOrdered By: Jian Viveros on 05-29-2024 AST [Catalytic activity/Vol] 36 U/L High <32 [facility] Lipid Profileon 05-29-2024 CHOL:HDL 3.20 Normal [facility] Comment on above: Order Comment: Order Date: 05/29/24Order Info: [id number]- - CMPOrder Info: [id number] - LIPIDOrder Info: - MGOrder Info: [id number] - TSHOrder Info: 3023-09 - T4F Performed By: #### L 500.4050, L506.0400, L501.9520, L509.1000, L501.5200, L500.4100, L100.0100 ####[facility] [address] [place], [address] Cholesterol [Mass/Vol] 221 mg/dL High <=200 [facility] Comment on above: Order Comment: Order Date: 05/29/24Order Info: [id number] - CMPOrder Info: [id number] - LIPIDOrder Info: [id number] - MGOrder Info: 3015-3 - TSHOrder Info: 7 - T4F Result Comment: Chol esterol level, Desirable <200 mg/dL Borderline high cholesterol 200-239 mg/dL High cholesterol >=240 mg/dL Recommendations of the NCEP Adult Treatment Panel for the following risk-cutoff thresholds for the [place] population. Performed By: #### L 500.4050, L506.0400, L501.9520, L509.1000, L501.5200, L500.4100, L100.0100 ####[facility] [address] [place], [address] Cholesterol in HDL [Mass/Vol] 69 mg/dL Normal [facility] Comment on above: Order Comment: Order Date: 05/29/24Order Info: [id number] - CMPOrder Info: [id number] - LIPIDOrder Info: [id number] - MGOrder Info: 3 - TSHOrder Info: 7 - T4F Result Comment: Joanne onal Cholesterol Education Program (NCEP) guidelines: <40 mg/dL: Low HDL-cholesterol (major risk factor for CHD) >= 60 mg/dL: High HDL-cholesterol (negative risk factor for CHD) HDL-cholesterol is affected by a number of factors, e.g. smoking, exercise, hormones, sex and age. Performed By: #### L 500.4050, L506.0400, L501.9520, L509.1000, L501.5200, L500.4100, L100.0100 ####[facility] [address] [place], [address] Cholesterol in LDL [Mass/Vol] 135 mg/dL Normal [facility] Comment on above: Order Comment: Order Date: 05/29/24Order Info: [id number] - CMPOrder Info: [id number] - LIPIDOrder Info: [id number] - MGOrder Info: [id number] - TSHOrder Info: 7 - T4F Result Comment: Bord szesyx=983-092 mg/dL Higher Dnla=845 mg/dL or greater Performed By: #### L 500.4050, L506.0400, L501.9520, L509.1000, L501.5200, L500.4100, L100.0100 ####[facility] [address] [place], [address] Cholesterol in VLDL [Mass/Vol] 17 mg/dL Normal 5-40 [facility] Comment on above: Order Comment: Order Date: 05/29/24Order Info: [id number] - CMPOrder Info: - LIPIDOrder Info: [id number] - MGOrder Info: [id number] - TSHOrder Info: [id number] - T4F Performed By: #### L 500.4050, L506.0400, L501.9520, L509.1000, L501.5200, L500.4100, L100.0100 ####[facility] [address] [place], [address] Triglyceride [Mass/Vol] 87 mg/dL Normal [facility] Comment on above: Order Comment: Order Date: 05/29/24Order Info: 07 - CMPOrder Info: - LIPIDOrder Info: [id number] - MGOrder Info: [id number] - TSHOrder Info: [id number] - T4F Result Comment: The drugs N-Acetylcysteine and Metamizole may falsely depress this assay. Normal range: <150 mg/dL Borderline High: 150-199 mg/dL High: 200-499 mg/dL Very High: >500 mg/dL Performed By: #### L 500.4050, L506.0400, L501.9520, L509.1000, L501.5200, L500.4100, L100.0100 ####[facility] [address] [place], [place], [address] Lymphocytes Auto (Unsp spec) [#/Vol]Ordered By: Jian Viveros on 05-29-2024 Lymphocytes (Bld) [#/Vol] 0.99 10*3/uL 0.83-4.51 [facility] Lymphocytes/100 WBC Auto (Un sp spec)Ordered By: iJan Viveros on 05-29-2024 Lymphocytes/100 WBC (Bld) 12.5 % Low 19-41 [facility] MCV (mean corpuscular volume ) determinationOrdered By: Jian Viveros on 05-29-2024 MCV (RBC) [Entitic vol] 98.3 fL 81-99 [facility] Magnesiumon 05-29-2024 Magnesium [Mass/Vol] 2.0 mg/dL Normal 1.5-2.2 [facility] Comment on above: Order Comment: Order Date: 05/29/24Order Info: [id number] - CMPOrder Info: [id number] - LIPIDOrder Info: [id number] - MGOrder Info: [id number] - TSHOrder Info: [id number] - T4F Performed By: #### L 500.4050, L506.0400, L501.9520, L509.1000, L501.5200, L500.4100, L100.0100 ####[facility] [address] [place], [place], [id number] Magnesium (Unsp spec) [Mass/ Vol]Ordered By: Jian Viveros on 05-29-2024 Magnesium [Mass/Vol] 2.0 mg/dL 1.5-2.2 [facility] Magnesium measurement (mass/ volume)Ordered By: Jian Viveros on 05-29-2024 Magnesium (Unsp spec) [Mass/Vol] 2.0 mg/dL 1.5-2.2 [facility] Mean corpuscular hemoglobin (MCH) determinationOrdered By: Jian Viveros on 05-29-2024 MCH (RBC) [Entitic mass] 33.0 pg High 27.0-32.0 [facility] Mean corpuscular hemoglobin concentration (MCHC) determinationOrdered By: Jian Viveros on 05-29-2024 MCHC (RBC) [Mass/Vol] 33.5 g/dL 32-36 [facility] Mean platelet volume determi nationOrdered By: Jian Viveros on 05-29-2024 Platelet mean volume (Bld) [Entitic vol] 9.9 fL 6.2-12.0 [facility] Monocyte percentageOrdered B y: Jian Viveros on 05-29-2024 Monocytes/100 WBC (Bld) 7.4 % 0-10 [facility] Neutrophil percentageOrdered By: Jian Viveros on 05-29-2024 Neutrophils/100 WBC (Bld) 78.1 % High 47-70 [facility] Nucleated red blood cell per centageOrdered By: Jian Viveros on 05-29-2024 Nucleated RBC/100 WBC (Bld) [Ratio] 0 % 0-5 [facility] PTH intactOrdered By: Jian martinez on 05-29-2024 Parathyroid Hormone (Intact) 93 pg/mL High [facility] PTHINon 05-29-2024 PTH 93 pg/mL High [facility] Comment on above: Order Comment: Order Date: 05/29/24Order Info: [id number] - PTHIN Performed By: #### L 500.4050, L506.0400, L501.9520, L509.1000, L501.5200, L500.4100, L100.0100 ####[facility] [address] [place], [address] Platelet countOrdered By: Nighat Viveros on 05-29-2024 Platelets (Bld) [#/Vol] 251 10*3/uL 150-450 [facility] Potassium (Unsp spec) [Mass/ Vol]Ordered By: Jian Viveros on 05-29-2024 Potassium [Moles/Vol] 4.7 mmol/L 3.3-5.1 [facility] Potassium measurement (mass/ volume)Ordered By: Jian Viveros on 05-29-2024 Potassium (Unsp spec) [Mass/Vol] 4.7 mmol/L 3.3-5.1 [facility] RBC Auto (Bld) [#/Vol]Ordere d By: Jian Viveros on 05-29-2024 RBC (Bld) [#/Vol] 3.58 10*6/uL Low 4.2-5.4 [facility] Screening total cholesterol/ high density lipoprotein (HDL) cholesterol ratioOrdered By: Jian Viveros on 05-29-2024 Cholesterol.total/Cho lesterol in HDL [Mass ratio] 3.20 {ratio} [facility] Serum creatinine measurement (mass/volume)Ordered By: Jian Viveros on 05-29-2024 Creatinine [Mass/Vol] 1.42 mg/dL High 0.70-1.20 [facility] Serum globulin measurementOr dered By: Jian Viveros on 05-29-2024 Globulin (S) [Mass/Vol] 2.9 g/dL 2.2-4.2 [facility] Serum glucose measurement (m ass/volume)Ordered By: Jian Viveros on 05-29-2024 Glucose [Mass/Vol] 93 mg/dL 70-99 [facility] Serum or plasma alanine murphy otransferase (ALT) measurementOrdered By: Jian Viveros on 05-29-2024 ALT [Catalytic activity/Vol] 29 U/L <35 [facility] Serum or plasma albumin benigno urement (mass/volume)Ordered By: Jian Viveros on 05-29-2024 Albumin [Mass/Vol] 4.1 g/dL 3.4-4.8 [facility] Serum or plasma albumin/glob ulin mass ratioOrdered By: Jian Viveros on 05-29-2024 Albumin/Globulin [Mass ratio] 1.4 {ratio} 0.9-2.4 [facility] Serum or plasma alkaline marlene sphatase measurementOrdered By: Jian Viveros on 05-29-2024 ALP [Catalytic activity/Vol] 96 U/L 35-104 [facility] Serum or plasma calcium benigno urement (mass/volume)Ordered By: Jian Viveros on 05-29-2024 Calcium [Mass/Vol] 9.3 mg/dL 7.6-11.0 [facility] Serum or plasma cholesterol in HDL measurement (mass/volume)Ordered By: Jian Viveros on 03-13-2025 Cholesterol in HDL [Mass/Vol] 69 mg/dL >40 [facility] Comment on above: National Cholesterol Education Program (NCEP) guidelines:<40 mg/dL: Low HDL-cholesterol (major risk factor for CHD)>= 60 mg/dL: High HDL-cholesterol (negative risk factor for CHD)HDL-cholesterol is affected by a number of factors, e.g. smoking, exercise, hormones, sex and age. Serum or plasma cholesterol measurement (mass/volume)Ordered By: Jian Viveros on 05-29-2024 Cholesterol [Mass/Vol] 221 mg/dL High <201 [facility] Comment on above: Cholesterol level, D esirable <200 mg/dLBorderline high cholesterol 200-239 mg/dLHigh cholesterol >=240 mg/dLRecommendations of the NCEP Adult Treatment Panel for the following risk-cutoff thresholds for the [place] population. Serum or plasma thiamine leslie surement (mass/volume)Ordered By: Jian Viveros on 05-29-2024 Thiamine [Mass/Vol] 104.8 nmol/L 66.5-200.0 [facility] Comment on above: Performed at: - [address] [id number] Director: Rick Boone MD, Phone: [phone] Serum or plasma urea nitroge n measurement (mass/volume)Ordered By: Jian Viveros on 05-29-2024 Urea nitrogen [Mass/Vol] 21 mg/dL High 4-19 [facility] Sodium levelOrdered By: Jian Viveros on 05-29-2024 Sodium [Moles/Vol] 135 mmol/L 133-145 [facility] T4 Free Directon 05-29-2024 T4 FREE DIRECT 0.90 ng/dL Normal 0.76-1.46 [facility] Comment on above: Order Comment: Order Date: 05/29/24Order Info: [id number] - CMPOrder Info: [id number] - LIPIDOrder Info: [id number] - MGOrder Info: [id number] - TSHOrder Info: [id number] - T4F Performed By: #### L 500.4050, L506.0400, L501.9520, L509.1000, L501.5200, L500.4100, L100.0100 ####[facility] [address] [place], [address] T4 freeOrdered By: Jian andino on 05-29-2024 Free T4 [Mass/Vol] 0.90 ng/dL 0.76-1.46 [facility] TSH DL <= 0.005 mIU/L QnOrde red By: Jian Viveros on 05-29-2024 Thyroid Stimulating Hormone (TSH) 16.400 uIU/mL High 0.300-4.20 0 [facility] TSH Qn 16.400 uIU/mL High 0.300-4.20 0 [facility] Thiamine [Mass/Vol]Ordered B y: Jian Viveros on 05-29-2024 Whole Blood Vitamin B1 Level 104.8 nmol/L 66.5-200.0 [facility] Comment on above: Performed at: [address] [id number] Director: Rick Boone MD, Phone: [phone] Thyroid Stim Hormone (TSH)on 05-29-2024 TSH 16.400 uIU/mL High 0.300-4.20 0 [facility] Comment on above: Order Comment: Order Date: 05/29/24Order Info: [id number] - CMPOrder Info: [id number] - LIPIDOrder Info: [id number] - MGOrder Info: [id number] - TSHOrder Info: [id number] - T4F Performed By: #### L 500.4050, L506.0400, L501.9520, L509.1000, L501.5200, L500.4100, L100.0100 ####[facility] [address] [place], [address] Total proteinOrdered By: Raghu Viveros on 05-29-2024 Protein [Mass/Vol] 7.0 g/dL 5.9-8.4 [facility] Triglycerides measurementOrd ered By: Jian Viveros on 05-29-2024 Triglyceride [Mass/Vol] 87 mg/dL <199 [facility] Comment on above: The drugs N-Acetylcy steine and Metamizole may falsely depress this assay. Normal range: <150 mg/dLBorderline High: 150-199 mg/dLHigh: 200-499 mg/dLVery High: >500 mg/dL Vitamin B12 ser/plasOrdered By: Jian Viveros on 05-29-2024 Cobalamin (Vitamin B12) [Mass/Vol] 270 pg/mL 180-914 [facility] Vitamin B6, plasmaOrdered By : Jian Viveros on 05-29-2024 Vitamin B6 Level 77.3 ug/L High 3.4-65.2 [facility] Comment on above: Deficiency: <3.4 Mar ginal: 3.4 - 5.1 Adequate: >5.1 Vitamin D, 25-hydroxyOrdered By: Jian Viveros on 05-29-2024 Vitamin D 25-Hydroxy 29.9 ng/mL Low 30-100 [facility] Comment on above: Vitamin D StatusDefi ciency: <20 ng/mL (50nmol/L)Insufficiency: 20-30 ng/mL (50-75 nmol/L)Sufficiency: 30-100 ng/mL (75-250 nmol/L)Toxicity: >100 ng/mL (>250 nmol/L) White blood cell (WBC) count Ordered By: Jian Viveros on 05-29-2024 WBC (Bld) [#/Vol] 7.9 10*3/uL 4.4-11.0 [facility] Cerv Spine 2 or 3 Viewson Cerv Spine 2 or 3 Views [facility] [address] [place] [address] Cerv Spine 2 or 3 Views MR#: [id number] Acct: [id number] Name: TRINIDAD PARKER Rep #: [id number] : 1935 F 88 From: Yonis Larkin PCP: Dr. Jian Viveros MD Status: [facility] Study: Cerv Spine 2 or 3 Views Date of Exam: 03/04/24 Exam# [id number] Ordering Dr: Jian Viveros MD [id number] INDICATION: pain EXAMINATION/TECHNIQUE: X-RAY - XR Spine Cervical 2 or 3 Views COMPARISON: None. FINDINGS: VERTEBRAE: Vertebral body height is maintained. There is mild leftward convex curvature which can be due to positioning versus spasm. No fractures noted. No destructive bony process. The odontoid process and prevertebral soft tissue planes have normal appearance. DISCS: Only mild disc space narrowing most notable at C5-6 and marginal osteophyte formation. Multilevel facet hypertrophic changes from C3 through C6. NECK SOFT TISSUES: No prevertebral soft tissue widening. Surgical clips are present in the LEFT neck. LUNG APICES: Clear. RAD/Cerv Spine 2 or 3 Views IMPRESSION: 1. Mild leftward convex curvature, sequelae of muscular spasm versus positioning. 2. No evidence however of fracture or malalignment. 3. Multilevel cervical spondylosis.. Electronically Signed: Yonis Rogers MD at 18:30 EST , CC: Dr. Jian Viveros MD Terminal Worker: Signed Normal [facility] 12 Lead EKG performed by [facility] on 02-11-2024 12 Lead EKG performed by [facility] [address] [place] [address] 12 Lead EKG performed by [facility] 02/11/24 0751 MR#: [id number] Acct: [id number] Name: TRINIDAD PARKER Rep #: [id number] : 1935 88 From: Dori Bob Attending Dr: LOLIS Lee Status: DEP AMB Ordering Dr: Dori Wong Date: 01/18 08/09 Location: [facility] Sex: F C Admitted: [facility]/12 Lead EKG performed by [facility] ECG Report Interpretation -Electronic ventricular pacemaker Pacemaker ECG, No further analysis Electronically signed on 02/22/2024 at 16:39 by Pako Moroch[employer] Software Version [id number] 02/22/24 1643 Date Dori DANIELLE CC: Dr. Jian Viveros MD Date Dictated: 02/11/24750 Date Transcribed: 02/11/24750 Terminal Worker: RIKKI Signed Normal [facility] Cardiology Visit Reporton Cardiology Visit Report [facility] [facility] [facility] [address] [place] [address] OFFICE VISIT Date of Service: 02/11/24 MR#: [id number] Acct: [id number] Name: TRINIDAD PARKER Rep #: [id number] : 1935 Provider: LOLIS Evangelista Age/Sex: 88/F Location: [facility] Status: Signed HPI HPI History of Present Illness Details: TRINIDAD PARKER, is a 88 F with a history of coronary artery disease status post drug-eluting stent to LCx in May 2017, status post permanent pacemaker placement, hypertension, and hyperlipidemia. In [address] which demonstrated a small nonocclusive thrombus present in the right lower lobe and her aspirin and clopidogrel were discontinued and she was put on Eliquis. She also presented in January of 2020 with atrial fibrillation with a rapid ventricular response rate and underwent DC cardioversion in April 2020. She was put on amiodarone and has done fairly well since then. She did undergo a cardioversion on 04/19/20. Pt notes that she does have dizziness, this is every morning after she takes her medications. She needs to lay down and rest. She also notes left ear pain this was after her LCEA in 07/2022. She has opted not to move to her sons out of state. Her one son in June of this year. Her dog the following month. She notes that she is fatigued. She does not have any chest pain. Her PPM interrogation did not demonstrated any arrhythmias. Intake Vital Signs 10/11/23 13:07 02/11/24 13:42 Height 5 ft 5 ft Weight: 139 lb BMI 27.1 BP 175/94 H Blood Pressure Location Lt brachial Position Sitting Respiration 18 Pulse 59 L Pulse Source Monitor Pulse Oximetry (%) 100 Intake Visit Reasons: 2 M FU Oil Boiler Required: No Is patient in pain?: No Allergies Penicillins (PCN) Allergy (Verified 02/11/24 13:43) Hives aspirin Adverse Reaction (Severe, Verified 02/11/24 13:43) Severe GI upset atorvastatin Adverse Reaction (Severe, Verified 02/11/24 13:43) elevated liver enzymes metformin Adverse Reaction (Verified 02/11/24 13:43) gi upset Medications ???Medication ???Instructions ???Recorded ???Confirmed ???Type nitroglycerin 0.4 mg sublingual 0.4 mg sublingual Q5-15M PRN chest 08/03/18 02/11/24 Rx tablet pain #25 tabs albuterol sulfate 2.5 mg/0.5 mL 2.5 mg inhalation Q4H PRN 08/20/20 02/11/24 History solution for nebulization Shortness Of Breath vit C 250 mg-vit E 90 mg-zinc 40 1 cap PO BID eye health 12/04/21 02/11/24 History mg-copper 1 ex-oiwuuh-[id number] capsule (PreserVision AREDS-2) magnesium oxide 400 mg PO DAILY SUPPLEMENT 05/05/22 02/11/24 History albuterol sulfate 90 mcg/actuation 2 puff inhalation Q4H PRN 06/19/23 02/11/24 History aerosol inhaler cholecalciferol (vitamin D3) 125 125 mcg PO DAILY 06/19/23 02/11/24 History mcg (5,000 unit) capsule fluticasone propionate 50 1 spray intranasal DAILY 06/19/23 02/11/24 History mcg/actuation nasal spray,suspension pravastatin 20 mg tablet 20 mg PO QDAY 06/19/23 02/11/24 History vitamin B complex 1 tab PO DAILY 06/19/23 02/11/24 History amiodarone 200 mg tablet 200 mg PO DAILY heart #90 tabs 07/11/23 02/11/24 Rx apixaban 5 mg tablet 5 mg PO BID blood thinner #180 tabs 07/11/23 02/11/24 Rx meclizine 25 mg chewable tablet 25 mg PO TID PRN dizziness 5 days 10/11/23 02/11/24 Rx (Antivert) #20 tabs lisinopril 20 mg tablet 20 mg PO DAILY #90 TABLETS 10/29/23 02/11/24 Rx levothyroxine 100 mcg tablet 100 mcg PO QDAY 02/11/24 02/11/24 History metoprolol tartrate 25 mg tablet 25 mg PO BID 02/11/24 02/11/24 History sertraline 25 mg tablet (Zoloft) 25 mg PO QDAY 02/11/24 02/11/24 History Have you fallen in the past year?: Yes Nurse's Note: no medication list, states no changes [facility] Medical History History of steroid therapy Vertigo Seasonal allergies Wears glasses Wears dentures Post-menopausal Depression Ambulates with cane Walker as ambulation aid Arthritis DVT (deep venous thrombosis) Easy bruising Excessive bleeding Restless legs History of ulceration Gastric reflux On home oxygen therapy Former smoker Chronic cough Leg cramps History of echocardiogram Cardiology follow-up encounter History of atrial fibrillation Atrial fibrillation with rapid ventricular response (01/21/20) Paroxysmal atrial fibrillation Paroxysmal atrial flutter Bilateral carotid artery stenosis Right bundle branch block (RBBB) with left anterior fascicular block Right pulmonary embolus (08/17/19) Lichen sclerosus Osteoarthritis Bone spur of foot Hypothyroidism COPD (chronic obstructive pulmonary disease) Ganglion cyst of left foot Essential (primary) hypertension Hyperlipidemia Comp (more content not included)... Normal [facility] Absolute lymphocyte countOrd ered By: Jian Viveros on 07-05-2023 Lymphocytes Auto (Unsp spec) [#/Vol] 0.97 10*3/uL 0.83-4.51 [facility] Automated lymphocyte count a s percentage of total leukocytesOrdered By: Jian Viveros on 07-05-2023 Lymphocytes/100 WBC Auto (Unsp spec) 14.2 % 19-41 [facility] Basophil percentageOrdered B y: Jian Viveros on 07-05-2023 Basophil percentage 0 SEEN /hpf 0-5 [facility] Basophil percentage 3.1 mg/dL 2.5-4.9 [facility] Basophils/100 WBC (Bld) 0.6 % 0-1 [facility] Bilirubin [Mass/Vol] 0.70 mg/dL 0.20-1.00 [facility] Comment on above: For patients on eltr ombopag therapy, use of Dimension Petros TBIL is not recommended. Chloride [Moles/Vol] 106 mmol/L 98-107 [facility] Cholesterol [Mass/Vol] 144 mg/dL <200 [facility] Comment on above: <200 mg/dL Desirable 200-240 mg/dL Borderline >240 mg/dL High Risk Eosinophils/100 WBC (Bld) 0.3 % 0-5 [facility] Glucose [Mass/Vol] 101 mg/dL 74-106 [facility] Comment on above: Fasting Glucose resu lt from 100 to 125 mg/dL suggests IMPAIRED HOMEOSTASIS per A.D.A. criteria. Hemoglobin (Bld) [Mass/Vol] 11.6 g/dL 12.0-15.0 [facility] Monocytes/100 WBC (Bld) 8.3 % 0-10 [facility] Neutrophils (Bld) [#/Vol] 5.2 10*3/uL 2.0-7.7 [facility] Neutrophils/100 WBC (Bld) 76.5 % 47-70 [facility] Potassium [Moles/Vol] 4.6 mmol/L 3.5-5.1 [facility] Protein [Mass/Vol] 6.9 g/dL 6.4-8.2 [facility] Sodium [Moles/Vol] 138 mmol/L 136-145 [facility] Triglyceride [Mass/Vol] 69 mg/dL <199 [facility] Comment on above: The drugs N-Acetylcy steine and Metamizole may falsely depress this assay.Serum Triglycerides Reference Interval Normal <150 mg/dL Borderline high 150 - 199 mg/dL High 200 - 499 mg/dL Very High > or = 500 mg/dL WBC (Bld) [#/Vol] 6.9 10*3/uL 4.4-11.0 [facility] Bilirubin Test strip Ql (U)O rdered By: Jian Viveros on 07-05-2023 Bilirubin Ql (U) Negative Negative [facility] Determination of erythrocyte mean corpuscular volume (MCV)Ordered By: Jian Viveros on 07-05-2023 MCV (RBC) [Entitic vol] 98.9 fL 81-99 [facility] Erythrocyte distribution wid th ratioOrdered By: Jian Viveros on 07-05-2023 Erythrocyte distribution width (RBC) [Ratio] 12.8 % 11.6-14.6 [facility] Erythrocyte distribution wid th standard deviationOrdered By: Jian Viveros on 07-05-2023 Erythrocyte distribution width (RBC) [Entitic vol] 46.3 fL 35.1-43.9 [facility] Hematocrit Auto (Bld) [Volum e fraction]Ordered By: Jian Viveros on 07-05-2023 Hematocrit (Bld) [Volume fraction] 35.4 % 37-47 [facility] Immature granulocytes/100 WB C Auto (Bld)Ordered By: Jian Viveros on 07-05-2023 Immature granulocytes/100 WBC (Bld) 0.100 % 0.0-0.9 [facility] Comment on above: IG% - Immature Granu locytes (promyelocytes, myelocytes and metamyelocytes) > 1% indicates that a LEFT SHIFT is Present. Ketones Test strip Ql (U)Ord ered By: Jian Viveros on 07-05-2023 Ketones Ql (U) Negative Negative [facility] Laboratory - Chemistry and C hemistry - challengeOrdered By: Jian Viveros on 07-05-2023 Albumin/Globulin [Mass ratio] 1.1 {ratio} 0.9-2.4 [facility] ALP [Catalytic activity/Vol] 86 U/L 45-117 [facility] ALT [Catalytic activity/Vol] 30 U/L 13-56 [facility] Cholesterol in HDL [Mass/Vol] 60 mg/dL >40 [facility] Comment on above: The drugs N-Acetylcy steine and Metamizole may falsely depress this assay. Reference Range HDL <40 mg/dL Low HDL Cholesterol HDL >or= 60 mg/dL High HDL Cholesterol Cholesterol in LDL [Mass/Vol] 70 mg/dL 0-130 [facility] CO2 [Moles/Vol] 26.0 mmol/L 21.0-32.0 [facility] Cobalamin (Vitamin B12) [Mass/Vol] 295 pg/mL 211-911 [facility] Globulin (S) [Mass/Vol] 3.3 g/dL 2.2-4.2 [facility] Magnesium [Mass/Vol] 1.9 mg/dL 1.6-2.6 [facility] Urea nitrogen/Creatinine [Mass ratio] 15.9 mg/mg 10-20 [facility] - Hematology and Cell countsOrdered By: Jian Viveros on 07-05-2023 MCH (RBC) [Entitic mass] 32.4 pg 27.0-32.0 [facility] MCHC (RBC) [Mass/Vol] 32.8 g/dL 32- [facility] Nucleated RBC/100 WBC (Bld) [Ratio] 0 % 0-5 [facility] Platelet mean volume (Bld) [Entitic vol] 9.8 fL 6.2-12.0 [facility] Platelets (Bld) [#/Vol] 239 10*3/uL 150-450 [facility] Mucus LM Ql (Urine sed)Order ed By: Jina Viveros on 07-05-2023 Mucus Ql (Urine sed) 0 SEEN /hpf [facility] Nitrite Test strip Ql (U)Ord ered By: Jian Viveros on 07-05-2023 Nitrite Ql (U) Negative Negative [facility] No Panel InformationOrdered By: Jian Viveros on 07-05-2023 Urine RBC 0 SEEN /hpf 0-5 [facility] Estimated GFR (MDRD) Amer 44 mL/min >60 [facility] Comment on above: GFR Calc Estimated GFR (MDRD) Non-Af Amer 36 mL/min >60 [facility] Comment on above: Non- GFR Calc Parathyroid Hormone (Intact) 136.7 pg/mL 18.4-80.1 [facility] Vitamin D 25-Hydroxy 36.6 ng/mL [facility] Comment on above: Vitamin D 25(OH) Sta tus Range Deficiency <20 ng/mL (50nmol/L) Insufficiency 20 - 30 ng/mL (50 - 75 nmol/L) Sufficiency 30 - 100 ng/mL (75 - 250 nmol/L) Toxicity >100 ng/mL (>250 nmol/L) VLDL Cholesterol 14 mg/dL 5-40 [facility] Protein Test strip Ql (U)Ord ered By: Jian Viveros on 07-05-2023 Protein Ql (U) Negative Negative [facility] RBC Auto (Bld) [#/Vol]Ordere d By: Jian Viveros on 07-05-2023 RBC (Bld) [#/Vol] 3.58 10*6/uL 4.2-5.4 [facility] Serum or plasma calcium benigno urement (mass/volume)Ordered By: Jian Viveros on 07-05-2023 Calcium [Mass/Vol] 9.4 mg/dL 8.5-10.1 [facility] Serum or plasma creatinine m easurement (mass/volume)Ordered By: Jian Viveros on 07-05-2023 Creatinine [Mass/Vol] 1.45 mg/dL 0.55-1.02 [facility] Comment on above: The validity of the calculated GFR & GFRAA in patients over 70 years has not been determined. Clinical correlation is essential. Serum or plasma thiamine leslie surement (mass/volume)Ordered By: Jian Viveros on 07-05-2023 Thiamine [Mass/Vol] 115.2 nmol/L 66.5-200.0 [facility] Comment on above: Performed at: [address] [id number] Director: Rick Boone MD, Phone: [phone] Serum or plasma thyroid stim ulating hormone (TSH) measurement (units/volume)Ordered By: Jian Viveros on 07-05-2023 TSH Qn 1.58 uIU/mL 0.358-3.74 [facility] Serum or plasma urea nitroge n measurement (mass/volume)Ordered By: Jian Viveros on 07-05-2023 Urea nitrogen [Mass/Vol] 23 mg/dL 10-03 [facility] Squamous epithelial cells de tection in urine sediment by light microscopyOrdered By: Jian Viveros on 07-05-2023 Epithelial cells.squamous LM Ql (Urine sed) 0 SEEN /hpf 5-10 [facility] Thin prep Papanicolaou smear with manual screeningOrdered By: Jian Viveros on 07-05-2023 Protein (U) [Mass/Vol] 7.0 mg/dL 0.0-11.8 [facility] Thin prep Papanicolaou smear with manual screening 3.6 g/dL 3.2-5.0 [facility] Thin prep Papanicolaou smear with manual screening 35 U/L 15-37 [facility] Thin prep Papanicolaou smear with manual screening 6 5-15 [facility] Thin prep Papanicolaou smear with manual screening 1.58 ng/dL 0.76-1.46 [facility] Urine blood detectionOrdered By: Jian Viveros on 07-05-2023 RBC Ql (U) Negative Negative [facility] Urine clarityOrdered By: Raghu Viveros on 07-05-2023 Clarity (U) Clear Clear [facility] Urine color determinationOrd ered By: Jian Viveros on 07-05-2023 Color (U) Yellow Yellow [facility] Urine creatinine measurement (mass/volume)Ordered By: Jian Viveros on 07-05-2023 Creatinine (U) [Mass/Vol] 28.70 mg/dL NO RANGE EST. [facility] Urine glucose detectionOrder ed By: Jian Viveros on 07-05-2023 Glucose Ql (U) Normal mg/dl Normal [facility] Urine leukocyte esterase det ection by dipstickOrdered By: Jian Viveros on 07-05-2023 Leukocyte esterase Test strip Ql (U) 100 /ul Negative [facility] Urine pHOrdered By: Jian santoyo on 07-05-2023 pH (U) 8.0 [pH] 5.0 - 8.0 [facility] Urine protein/creatinine mas s ratioOrdered By: Jian Viveros on 07-05-2023 Protein/Creatinine (U) [Mass ratio] 244 mg/g CRE 0-200 [facility] Urine sediment bacteria coun t by microscopy (number/high power field)Ordered By: Jian Viveros on 07-05-2023 Bacteria LM.HPF (Urine sed) [#/Area] 0 /[HPF] None Seen [facility] Urine specific gravity measu rementOrdered By: Jian Viveros on 07-05-2023 Specific gravity (U) [Rel density] 1.010 1.002-1.03 0 [facility] Urine urobilinogen measureme ntOrdered By: Jian Viveros on 07-05-2023 Urobilinogen Ql (U) Normal mg/dl Normal [facility] Absolute lymphocyte countOrd ered By: Jian Viveros on 04-24-2023 Lymphocytes Auto (Unsp spec) [#/Vol] 1.05 10*3/uL 0.83-4.51 [facility] Automated lymphocyte count a s percentage of total leukocytesOrdered By: Jian Viveros on 04-24-2023 Lymphocytes/100 WBC Auto (Unsp spec) 14.3 % 19-41 [facility] Basophil percentageOrdered B y: Jian Viveros on 04-24-2023 Basophil percentage 0-5 SEEN /hpf 0-5 [facility] Basophil percentage 3.2 mg/dL 2.5-4.9 [facility] Basophils/100 WBC (Bld) 0.7 % 0-1 [facility] Bilirubin [Mass/Vol] 0.60 mg/dL 0.20-1.00 [facility] Comment on above: For patients on eltr ombopag therapy, use of Dimension Petros TBIL is not recommended. Chloride [Moles/Vol] 108 mmol/L 98-107 [facility] Cholesterol [Mass/Vol] 209 mg/dL <200 [facility] Comment on above: <200 mg/dL Desirable 200-240 mg/dL Borderline >240 mg/dL High Risk Eosinophils/100 WBC (Bld) 3.0 % 0-5 [facility] Glucose [Mass/Vol] 135 mg/dL 74-106 [facility] Comment on above: Fasting Glucose resu lt greater than or equal to 126 mg/dL suggests DIABETES MELLITUS per A.D.A. criteria. Hemoglobin (Bld) [Mass/Vol] 11.8 g/dL 12.0-15.0 [facility] Monocytes/100 WBC (Bld) 6.5 % 0-10 [facility] Neutrophils (Bld) [#/Vol] 5.5 10*3/uL 2.0-7.7 [facility] Neutrophils/100 WBC (Bld) 75.0 % 47-70 [facility] Potassium [Moles/Vol] 4.2 mmol/L 3.5-5.1 [facility] Protein [Mass/Vol] 7.0 g/dL 6.4-8.2 [facility] Sodium [Moles/Vol] 136 mmol/L 136-145 [facility] Triglyceride [Mass/Vol] 132 mg/dL <199 [facility] Comment on above: The drugs N-Acetylcy steine and Metamizole may falsely depress this assay.Serum Triglycerides Reference Interval Normal <150 mg/dL Borderline high 150 - 199 mg/dL High 200 - 499 mg/dL Very High > or = 500 mg/dL WBC (Bld) [#/Vol] 7.4 10*3/uL 4.4-11.0 [facility] Bilirubin Test strip Ql (U)O rdered By: Jian Viveros on 04-24-2023 Bilirubin Ql (U) Negative Negative [facility] Determination of erythrocyte mean corpuscular volume (MCV)Ordered By: Jian Viveros on 04-24-2023 MCV (RBC) [Entitic vol] 101.4 fL 81-99 [facility] Erythrocyte distribution wid th ratioOrdered By: Jian Viveros on 04-24-2023 Erythrocyte distribution width (RBC) [Ratio] 12.6 % 11.6-14.6 [facility] Erythrocyte distribution wid th standard deviationOrdered By: Jian Viveros on 04-24-2023 Erythrocyte distribution width (RBC) [Entitic vol] 47.2 fL 35.1-43.9 [facility] Hematocrit Auto (Bld) [Volum e fraction]Ordered By: Jian Viveros on 04-24-2023 Hematocrit (Bld) [Volume fraction] 37.3 % 37-47 [facility] Immature granulocytes/100 WB C Auto (Bld)Ordered By: Jian Viveros on 04-24-2023 Immature granulocytes/100 WBC (Bld) 0.500 % 0.0-0.9 [facility] Comment on above: IG% - Immature Granu locytes (promyelocytes, myelocytes and metamyelocytes) > 1% indicates that a LEFT SHIFT is Present. Ketones Test strip Ql (U)Ord ered By: Jian Viveros on 04-24-2023 Ketones Ql (U) Negative Negative [facility] - Chemistry and C hemistry - challengeOrdered By: Jian Viveros on 04-24-2023 Albumin/Globulin [Mass ratio] 1.1 {ratio} 0.9-2.4 [facility] ALP [Catalytic activity/Vol] 82 U/L 45-117 [facility] ALT [Catalytic activity/Vol] 29 U/L 13-56 [facility] Cholesterol in HDL [Mass/Vol] 60 mg/dL >40 [facility] Comment on above: The drugs N-Acetylcy steine and Metamizole may falsely depress this assay. Reference Range HDL <40 mg/dL Low HDL Cholesterol HDL >or= 60 mg/dL High HDL Cholesterol Cholesterol in LDL [Mass/Vol] 123 mg/dL 0-130 [facility] CO2 [Moles/Vol] 25.0 mmol/L 21.0-32.0 [facility] Cobalamin (Vitamin B12) [Mass/Vol] 316 pg/mL 211-911 [facility] Globulin (S) [Mass/Vol] 3.4 g/dL 2.2-4.2 [facility] Magnesium [Mass/Vol] 1.8 mg/dL 1.6-2.6 [facility] Urea nitrogen/Creatinine [Mass ratio] 15.6 mg/mg 10-20 [facility] - Hematology and Cell countsOrdered By: Jian Viveros on 04-24-2023 MCH (RBC) [Entitic mass] 32.1 pg 27.0-32.0 [facility] MCHC (RBC) [Mass/Vol] 31.6 g/dL 32-36 [facility] Nucleated RBC/100 WBC (Bld) [Ratio] 0 % 0-5 [facility] Platelet mean volume (Bld) [Entitic vol] 10.1 fL 6.2-12.0 [facility] Platelets (Bld) [#/Vol] 215 10*3/uL 150-450 [facility] Mucus LM Ql (Urine sed)Order ed By: Jian Viveros on 04-24-2023 Mucus Ql (Urine sed) 0 SEEN /hpf [facility] Nitrite Test strip Ql (U)Ord ered By: Jian Viveros on 04-24-2023 Nitrite Ql (U) Positive Negative [facility] No Panel InformationOrdered By: Jian Viveros on 04-24-2023 Urine RBC 0-5 SEEN /hpf 0-5 [facility] Estimated GFR (MDRD) Amer 46 mL/min >60 [facility] Comment on above: GFR Calc Estimated GFR (MDRD) Non-Af Amer 38 mL/min >60 [facility] Comment on above: Non- GFR Calc Parathyroid Hormone (Intact) 105.6 pg/mL 18.4-80.1 [facility] Vitamin D 25-Hydroxy 31.2 ng/mL [facility] Comment on above: Vitamin D 25(OH) Sta tus Range Deficiency <20 ng/mL (50nmol/L) Insufficiency 20 - 30 ng/mL (50 - 75 nmol/L) Sufficiency 30 - 100 ng/mL (75 - 250 nmol/L) Toxicity >100 ng/mL (>250 nmol/L) VLDL Cholesterol 26 mg/dL 5-40 [facility] Protein Test strip Ql (U)Ord ered By: Jian Viveros on 04-24-2023 Protein Ql (U) 15 mg/dl Negative [facility] RBC Auto (Bld) [#/Vol]Ordere d By: Jian Viveros on 04-24-2023 RBC (Bld) [#/Vol] 3.68 10*6/uL 4.2-5.4 [facility] Serum or plasma calcium benigno urement (mass/volume)Ordered By: Jian Viveros on 04-24-2023 Calcium [Mass/Vol] 8.9 mg/dL 8.5-10.1 [facility] Serum or plasma creatinine m easurement (mass/volume)Ordered By: Jian Viveros on 04-24-2023 Creatinine [Mass/Vol] 1.41 mg/dL 0.55-1.02 [facility] Comment on above: The validity of the calculated GFR & GFRAA in patients over 70 years has not been determined. Clinical correlation is essential. Serum or plasma thiamine leslie surement (mass/volume)Ordered By: Jian Viveros on 04-24-2023 Thiamine [Mass/Vol] 134.3 nmol/L 66.5-200.0 [facility] Comment on above: Performed at: [address], [place] [id number] Director: Rick Boone MD, Phone: [phone] Serum or plasma thyroid stim ulating hormone (TSH) measurement (units/volume)Ordered By: Jian Viveros on 04-24-2023 TSH Qn 10.30 uIU/mL 0.358-3.74 [facility] Serum or plasma urea nitroge n measurement (mass/volume)Ordered By: Jian Viveros on 04-24-2023 Urea nitrogen [Mass/Vol] 22 mg/dL 7-18 [facility] Squamous epithelial cells de tection in urine sediment by light microscopyOrdered By: Jian Viveros on 04-24-2023 Epithelial cells.squamous LM Ql (Urine sed) 0-5 SEEN /hpf 5-10 [facility] Thin prep Papanicolaou smear with manual screeningOrdered By: Jian Viveros on 04-24-2023 Protein (U) [Mass/Vol] 10.9 mg/dL 0.0-11.8 [facility] Thin prep Papanicolaou smear with manual screening 3.6 g/dL 3.2-5.0 [facility] Thin prep Papanicolaou smear with manual screening 30 U/L 15-37 [facility] Thin prep Papanicolaou smear with manual screening 3 5-15 [facility] Thin prep Papanicolaou smear with manual screening 0.98 ng/dL 0.76-1.46 [facility] Urine blood detectionOrdered By: Jian Viveros on 04-24-2023 RBC Ql (U) 10 /ul Negative [facility] Urine clarityOrdered By: Raghu Viveros on 04-24-2023 Clarity (U) Sl. Cloudy Clear [facility] Urine color determinationOrd ered By: Jian Viveros on 04-24-2023 Color (U) Yellow Yellow [facility] Urine creatinine measurement (mass/volume)Ordered By: Jian Viveros on 04-24-2023 Creatinine (U) [Mass/Vol] 57.00 mg/dL NO RANGE EST. [facility] Urine glucose detectionOrder ed By: Jian Viveros on 04-24-2023 Glucose Ql (U) Normal mg/dl Normal [facility] Urine leukocyte esterase det ection by dipstickOrdered By: Jian Viveros on 04-24-2023 Leukocyte esterase Test strip Ql (U) 25 /ul Negative [facility] Urine pHOrdered By: Jian santoyo on 04-24-2023 pH (U) 6.5 [pH] 5.0 - 8.0 [facility] Urine protein/creatinine mas s ratioOrdered By: Jian Viveros on 04-24-2023 Protein/Creatinine (U) [Mass ratio] 191 mg/g CRE 0-200 [facility] Urine sediment bacteria coun t by microscopy (number/high power field)Ordered By: Jian Viveros on 04-24-2023 Bacteria LM.HPF (Urine sed) [#/Area] 0 /[HPF] None Seen [facility] Urine specific gravity measu rementOrdered By: Jian Viveros on 04-24-2023 Specific gravity (U) [Rel density] 1.010 1.002-1.03 0 [facility] Urine urobilinogen measureme ntOrdered By: Jian Viveros on 04-24-2023 Urobilinogen Ql (U) Normal mg/dl Normal [facility] Absolute lymphocyte countOrd ered By: Jian Viveros on 01-12-2023 Lymphocytes Auto (Unsp spec) [#/Vol] 1.00 10*3/uL 0.83-4.51 [facility] Basophil percentageOrdered B y: Jian Viveros on 01-12-2023 Basophil percentage 3.4 mg/dL 2.5-4.9 [facility] Basophils/100 WBC (Bld) 0.5 % 0-1 [facility] Bilirubin [Mass/Vol] 0.70 mg/dL 0.20-1.00 [facility] Comment on above: For patients on eltr ombopag therapy, use of Dimension Petros TBIL is not recommended. Chloride [Moles/Vol] 107 mmol/L 98-107 [facility] Cholesterol [Mass/Vol] 177 mg/dL <200 [facility] Comment on above: <200 mg/dL Desirable 200-240 mg/dL Borderline >240 mg/dL High Risk Eosinophils/100 WBC (Bld) 1.7 % 0-5 [facility] Glucose [Mass/Vol] 79 mg/dL 74-106 [facility] Neutrophils (Bld) [#/Vol] 5.7 10*3/uL 2.0-7.7 [facility] Neutrophils/100 WBC (Bld) 76.9 % 47-70 [facility] Potassium [Moles/Vol] 4.0 mmol/L 3.5-5.1 [facility] Protein [Mass/Vol] 7.5 g/dL 6.4-8.2 [facility] Sodium [Moles/Vol] 134 mmol/L 136-145 [facility] Triglyceride [Mass/Vol] 88 mg/dL <199 [facility] Comment on above: The drugs N-Acetylcy steine and Metamizole may falsely depress this assay.Serum Triglycerides Reference Interval Normal <150 mg/dL Borderline high 150 - 199 mg/dL High 200 - 499 mg/dL Very High > or = 500 mg/dL WBC (Bld) [#/Vol] 7.5 10*3/uL 4.4-11.0 [facility] Blood erythrocytes count (nu mber/volume)Ordered By: Jian Viveros on 01-12-2023 RBC (Bld) [#/Vol] 3.77 10*6/uL 4.2-5.4 [facility] Blood hemoglobin measurement (mass/volume)Ordered By: Jian Viveros on 01-12-2023 Hemoglobin (Bld) [Mass/Vol] 12.1 g/dL 12.0-15.0 [facility] Blood lymphocytes/100 leukoc ytesOrdered By: Jian Viveros on 01-12-2023 Lymphocytes/100 WBC (Bld) 13.4 % 19-41 [facility] Blood monocytes/100 leukocyt esOrdered By: Jian Viveros on 01-12-2023 Monocytes/100 WBC (Bld) 7.2 % 0-10 [facility] Blood platelet mean volumeOr dered By: Jian Viveros on 01-12-2023 Platelet mean volume (Bld) [Entitic vol] 10.0 fL 6.2-12.0 [facility] Determination of erythrocyte mean corpuscular volume (MCV)Ordered By: Jian Viveros on 01-12-2023 MCV (RBC) [Entitic vol] 100.0 fL 81-99 [facility] Hematocrit Auto (Bld) [Volum e fraction]Ordered By: Jian Viveros on 01-12-2023 Hematocrit (Bld) [Volume fraction] 37.7 % 37-47 [facility] - Chemistry and C hemistry - challengeOrdered By: Jian Viveros on 01-12-2023 ALP [Catalytic activity/Vol] 93 U/L 45-117 [facility] ALT [Catalytic activity/Vol] 28 U/L 13-56 [facility] CO2 [Moles/Vol] 25.0 mmol/L 21.0-32.0 [facility] Cobalamin (Vitamin B12) [Mass/Vol] 321 pg/mL 211-911 [facility] Free T4 [Mass/Vol] 1.31 ng/dL 0.76-1.46 [facility] Globulin (S) [Mass/Vol] 3.8 g/dL 2.2-4.2 [facility] Magnesium [Mass/Vol] 2.0 mg/dL 1.6-2.6 [facility] Urea nitrogen/Creatinine [Mass ratio] 15.7 mg/mg 10-20 [facility] - Hematology and Cell countsOrdered By: Jian Viveros on 01-12-2023 Erythrocyte distribution width (RBC) [Entitic vol] 45.3 fL 35.1-43.9 [facility] Erythrocyte distribution width (RBC) [Ratio] 12.4 % 11.6-14.6 [facility] Immature granulocytes/100 WBC (Bld) 0.300 % 0.0-0.9 [facility] Comment on above: IG% - Immature Granu locytes (promyelocytes, myelocytes and metamyelocytes) > 1% indicates that a LEFT SHIFT is Present. MCH (RBC) [Entitic mass] 32.1 pg 27.0-32.0 [facility] Nucleated RBC/100 WBC (Bld) [Ratio] 0 % 0-5 [facility] MCHC Auto (RBC) [Mass/Vol]Or dered By: Jian Viveros on 01-12-2023 MCHC (RBC) [Mass/Vol] 32.1 g/dL 32-36 [facility] No Panel InformationOrdered By: Jian Viveros on 01-12-2023 Whole Blood Vitamin B1 Level See comment [facility] Comment on above: TEST RESULTS LIMITSV itamin B1 (Thiamine), BloodVit. B1, Whole Blood 143.7 nmol/L 66.5-200.0 TESTING PERFORMED AT [facility]. ORIGINAL REPORT ON FILE IN LAB CONTAINS ADDITIONAL TEST SITE INFORMATION. Estimated GFR (MDRD) Amer 46 mL/min >60 [facility] Comment on above: GFR Calc Estimated GFR (MDRD) Non-Af Amer 38 mL/min >60 [facility] Comment on above: Non- GFR Calc Parathyroid Hormone (Intact) 93.0 pg/mL 18.4-80.1 [facility] Thyroid Stimulating Hormone (TSH) 3.70 uIU/mL 0.358-3.74 [facility] Vitamin D 25-Hydroxy 29.8 ng/mL [facility] Comment on above: Vitamin D 25(OH) Sta tus Range Deficiency <20 ng/mL (50nmol/L) Insufficiency 20 - 30 ng/mL (50 - 75 nmol/L) Sufficiency 30 - 100 ng/mL (75 - 250 nmol/L) Toxicity >100 ng/mL (>250 nmol/L) Platelets bldOrdered By: Raghu Viveros on 01-12-2023 Platelets (Bld) [#/Vol] 247 10*3/uL 150-450 [facility] Serum or plasma albumin benigno urement (mass/volume)Ordered By: Jian Viveros on 01-12-2023 Albumin [Mass/Vol] 3.7 g/dL 3.2-5.0 [facility] Serum or plasma albumin/glob ulin mass ratioOrdered By: Jian Viveros on 01-12-2023 Albumin/Globulin [Mass ratio] 1.0 {ratio} 0.9-2.4 [facility] Serum or plasma calcium benigno urement (mass/volume)Ordered By: Jian Viveros on 01-12-2023 Calcium [Mass/Vol] 9.1 mg/dL 8.5-10.1 [facility] Serum or plasma cholesterol in HDL measurement (mass/volume)Ordered By: Jian Viveros on 01-12-2023 Cholesterol in HDL [Mass/Vol] 63 mg/dL >40 [facility] Comment on above: The drugs N-Acetylcy steine and Metamizole may falsely depress this assay. Reference Range HDL <40 mg/dL Low HDL Cholesterol HDL >or= 60 mg/dL High HDL Cholesterol Serum or plasma cholesterol in VLDL measurement (mass/volume)Ordered By: Jian Viveros on 01-12-2023 Cholesterol in VLDL [Mass/Vol] 18 mg/dL 5-40 [facility] Serum or plasma creatinine m easurement (mass/volume)Ordered By: Jian Viveros on 01-12-2023 Creatinine [Mass/Vol] 1.40 mg/dL 0.55-1.02 [facility] Comment on above: The validity of the calculated GFR & GFRAA in patients over 70 years has not been determined. Clinical correlation is essential. Serum or plasma low density lipoprotein (LDL) cholesterol measurement (mass/volume)Ordered By: Jian Viveros on 01-12-2023 Cholesterol in LDL [Mass/Vol] 96 mg/dL 0-130 [facility] Serum or plasma urea nitroge n measurement (mass/volume)Ordered By: Jian Viveros on 01-12-2023 Urea nitrogen [Mass/Vol] 22 mg/dL 7-18 [facility] Thin prep Papanicolaou smear with manual screeningOrdered By: Jian Viveros on 01-12-2023 Thin prep Papanicolaou smear with manual screening 27 U/L 15-37 [facility] Thin prep Papanicolaou smear with manual screening 2 5-15 [facility] Urine creatinine measurement (mass/volume)Ordered By: Jian Viveros on 01-12-2023 Creatinine (U) [Mass/Vol] 60.90 mg/dL NO RANGE EST. [facility] Urine protein measurement (m ass/volume)Ordered By: Jian Viveros on 01-12-2023 Protein (U) [Mass/Vol] 9.7 mg/dL 0.0-11.8 [facility] Urine protein/creatinine mas s ratioOrdered By: Jian Viveros on 01-12-2023 Protein/Creatinine (U) [Mass ratio] 159 mg/g CRE 0-200 [facility] Absolute lymphocyte countOrd ered By: Jian Viveros on 09-28-2022 Lymphocytes Auto (Unsp spec) [#/Vol] 1.14 10*3/uL 0.83-4.51 [facility] Basophil percentageOrdered B y: Jian Sampsonaldo on 09-28-2022 Basophil percentage 3.1 mg/dL 2.5-4.9 [facility] Basophils/100 WBC (Bld) 0.7 % 0-1 [facility] Bilirubin [Mass/Vol] 0.40 mg/dL 0.20-1.00 [facility] Comment on above: For patients on eltr ombopag therapy, use of Dimension Petros TBIL is not recommended. Chloride [Moles/Vol] 107 mmol/L 98-107 [facility] Cholesterol [Mass/Vol] 187 mg/dL <200 [facility] Comment on above: <200 mg/dL Desirable 200-240 mg/dL Borderline >240 mg/dL High Risk Eosinophils/100 WBC (Bld) 1.1 % 0-5 [facility] Glucose [Mass/Vol] 105 mg/dL 74-106 [facility] Comment on above: Fasting Glucose resu lt from 100 to 125 mg/dL suggests IMPAIRED HOMEOSTASIS per A.D.A. criteria. Neutrophils (Bld) [#/Vol] 5.4 10*3/uL 2.0-7.7 [facility] Neutrophils/100 WBC (Bld) 75.2 % 47-70 [facility] Potassium [Moles/Vol] 4.5 mmol/L 3.5-5.1 [facility] Protein [Mass/Vol] 7.2 g/dL 6.4-8.2 [facility] Sodium [Moles/Vol] 137 mmol/L 136-145 [facility] Triglyceride [Mass/Vol] 129 mg/dL <199 [facility] Comment on above: The drugs N-Acetylcy steine and Metamizole may falsely depress this assay.Serum Triglycerides Reference Interval Normal <150 mg/dL Borderline high 150 - 199 mg/dL High 200 - 499 mg/dL Very High > or = 500 mg/dL WBC (Bld) [#/Vol] 7.1 10*3/uL 4.4-11.0 [facility] Blood erythrocytes count (nu mber/volume)Ordered By: Jian Viveros on 09-28-2022 RBC (Bld) [#/Vol] 3.58 10*6/uL 4.2-5.4 [facility] Blood hemoglobin measurement (mass/volume)Ordered By: Jian Viveros on 09-28-2022 Hemoglobin (Bld) [Mass/Vol] 11.9 g/dL 12.0-15.0 [facility] Blood lymphocytes/100 leukoc ytesOrdered By: Jian Viveros on 09-28-2022 Lymphocytes/100 WBC (Bld) 16.0 % 19-41 [facility] Blood monocytes/100 leukocyt esOrdered By: Jian Viveros on 09-28-2022 Monocytes/100 WBC (Bld) 6.9 % 0-10 [facility] Blood platelet mean volumeOr dered By: Jian Viveros on 09-28-2022 Platelet mean volume (Bld) [Entitic vol] 9.8 fL 6.2-12.0 [facility] Determination of erythrocyte mean corpuscular volume (MCV)Ordered By: Jian Viveros on 09-28-2022 MCV (RBC) [Entitic vol] 100.0 fL 81-99 [facility] Hematocrit Auto (Bld) [Volum e fraction]Ordered By: Jian Viveros on 09-28-2022 Hematocrit (Bld) [Volume fraction] 35.8 % 37-47 [facility] - Chemistry and C hemistry - challengeOrdered By: Jian Viveros on 09-28-2022 ALP [Catalytic activity/Vol] 81 U/L 45-117 [facility] ALT [Catalytic activity/Vol] 27 U/L 13-56 [facility] CO2 [Moles/Vol] 24.0 mmol/L 21.0-32.0 [facility] Cobalamin (Vitamin B12) [Mass/Vol] 342 pg/mL 211-911 [facility] Free T4 [Mass/Vol] 0.78 ng/dL 0.76-1.46 [facility] Globulin (S) [Mass/Vol] 3.5 g/dL 2.2-4.2 [facility] Magnesium [Mass/Vol] 2.1 mg/dL 1.6-2.6 [facility] Urea nitrogen/Creatinine [Mass ratio] 17.8 mg/mg 10-20 [facility] - Hematology and Cell countsOrdered By: Jian Viveros on 09-28-2022 Erythrocyte distribution width (RBC) [Entitic vol] 45.1 fL 35.1-43.9 [facility] Erythrocyte distribution width (RBC) [Ratio] 12.3 % 11.6-14.6 [facility] Immature granulocytes/100 WBC (Bld) 0.100 % 0.0-0.9 [facility] Comment on above: IG% - Immature Granu locytes (promyelocytes, myelocytes and metamyelocytes) > 1% indicates that a LEFT SHIFT is Present. MCH (RBC) [Entitic mass] 33.2 pg 27.0-32.0 [facility] Nucleated RBC/100 WBC (Bld) [Ratio] 0 % 0-5 [facility] MCHC Auto (RBC) [Mass/Vol]Or dered By: Jian Viveros on 09-28-2022 MCHC (RBC) [Mass/Vol] 33.2 g/dL 32-36 [facility] No Panel InformationOrdered By: Jian Viveros on 09-28-2022 Estimated GFR (MDRD) Amer 51 mL/min >60 [facility] Comment on above: GFR Calc Estimated GFR (MDRD) Non-Af Amer 42 mL/min >60 [facility] Comment on above: Non- GFR Calc Parathyroid Hormone (Intact) 113.6 pg/mL 18.4-80.1 [facility] Thyroid Stimulating Hormone (TSH) 21.20 uIU/mL 0.358-3.74 [facility] Vitamin B6 Level 10.5 ug/L 3.4-65.2 [facility] Comment on above: Deficiency: <3.4 Mar ginal: 3.4 - 5.1 Adequate: >5.1 Vitamin D 25-Hydroxy 33.0 ng/mL [facility] Comment on above: Vitamin D 25(OH) Sta tus Range Deficiency <20 ng/mL (50nmol/L) Insufficiency 20 - 30 ng/mL (50 - 75 nmol/L) Sufficiency 30 - 100 ng/mL (75 - 250 nmol/L) Toxicity >100 ng/mL (>250 nmol/L) Whole Blood Vitamin B1 Level 148.3 nmol/L 66.5-200.0 [facility] Comment on above: Performed at: [address] [id number] Director: Rick Boone MD, Phone: [phone] Platelets bldOrdered By: Raghu Viveros on 09-28-2022 Platelets (Bld) [#/Vol] 215 10*3/uL 150-450 [facility] Serum or plasma albumin benigno urement (mass/volume)Ordered By: Jian Viveros on 09-28-2022 Albumin [Mass/Vol] 3.7 g/dL 3.2-5.0 [facility] Serum or plasma albumin/glob ulin mass ratioOrdered By: Jian Viveros on 09-28-2022 Albumin/Globulin [Mass ratio] 1.1 {ratio} 0.9-2.4 [facility] Serum or plasma calcium benigno urement (mass/volume)Ordered By: Jian Viveros on 09-28-2022 Calcium [Mass/Vol] 8.8 mg/dL 8.5-10.1 [facility] Serum or plasma cholesterol in HDL measurement (mass/volume)Ordered By: Jian Viveros on 09-28-2022 Cholesterol in HDL [Mass/Vol] 52 mg/dL >40 [facility] Comment on above: The drugs N-Acetylcy steine and Metamizole may falsely depress this assay. Reference Range HDL <40 mg/dL Low HDL Cholesterol HDL >or= 60 mg/dL High HDL Cholesterol Serum or plasma cholesterol in VLDL measurement (mass/volume)Ordered By: Jian Viveros on 09-28-2022 Cholesterol in VLDL [Mass/Vol] 26 mg/dL 5-40 [facility] Serum or plasma creatinine m easurement (mass/volume)Ordered By: Jian Viveros on 09-28-2022 Creatinine [Mass/Vol] 1.29 mg/dL 0.55-1.02 [facility] Comment on above: The validity of the calculated GFR & GFRAA in patients over 70 years has not been determined. Clinical correlation is essential. Serum or plasma low density lipoprotein (LDL) cholesterol measurement (mass/volume)Ordered By: Jian Viveros on 09-28-2022 Cholesterol in LDL [Mass/Vol] 109 mg/dL 0-130 [facility] Serum or plasma urea nitroge n measurement (mass/volume)Ordered By: Jian Viveros on 09-28-2022 Urea nitrogen [Mass/Vol] 23 mg/dL 7-18 [facility] Thin prep Papanicolaou smear with manual screeningOrdered By: Jian Viveros on 09-28-2022 Thin prep Papanicolaou smear with manual screening 31 U/L 15-37 [facility] Thin prep Papanicolaou smear with manual screening 6 5-15 [facility] Absolute lymphocyte countOrd ered By: Dieter Johnson on 07-25-2022 Lymphocytes Auto (Unsp spec) [#/Vol] 0.85 10*3/uL 0.83-4.51 [facility] Basophil percentageOrdered B y: Dieter Johnson on 07-25-2022 Basophils/100 WBC (Bld) 0.2 % 0-1 [facility] Eosinophils/100 WBC (Bld) 0.2 % 0-5 [facility] Neutrophils (Bld) [#/Vol] 7.1 10*3/uL 2.0-7.7 [facility] Neutrophils/100 WBC (Bld) 81.8 % 47-70 [facility] WBC (Bld) [#/Vol] 8.7 10*3/uL 4.4-11.0 [facility] Blood erythrocytes count (nu mber/volume)Ordered By: Dieter Johnson on 07-25-2022 RBC (Bld) [#/Vol] 3.09 10*6/uL 4.2-5.4 [facility] Blood hemoglobin measurement (mass/volume)Ordered By: Dieter Johnson on 07-25-2022 Hemoglobin (Bld) [Mass/Vol] 10.2 g/dL 12.0-15.0 [facility] Blood lymphocytes/100 leukoc ytesOrdered By: Dieter Johnson on 07-25-2022 Lymphocytes/100 WBC (Bld) 9.8 % 19-41 [facility] Blood monocytes/100 leukocyt esOrdered By: Dieter Johnson on 07-25-2022 Monocytes/100 WBC (Bld) 7.7 % 0-10 [facility] Blood platelet mean volumeOr dered By: Dieter Johnson on 07-25-2022 Platelet mean volume (Bld) [Entitic vol] 9.5 fL 6.2-12.0 [facility] Determination of erythrocyte mean corpuscular volume (MCV)Ordered By: Dieter Johnson on 07-25-2022 MCV (RBC) [Entitic vol] 100.3 fL 81-99 [facility] Hematocrit Auto (Bld) [Volum e fraction]Ordered By: Dieter Johnson on 07-25-2022 Hematocrit (Bld) [Volume fraction] 31.0 % 37-47 [facility] Laboratory - Hematology and Cell countsOrdered By: Dieter Johnson on 07-25-2022 Erythrocyte distribution width (RBC) [Entitic vol] 45.6 fL 35.1-43.9 [facility] Erythrocyte distribution width (RBC) [Ratio] 12.5 % 11.6-14.6 [facility] Immature granulocytes/100 WBC (Bld) 0.300 % 0.0-0.9 [facility] Comment on above: IG% - Immature Granu locytes (promyelocytes, myelocytes and metamyelocytes) > 1% indicates that a LEFT SHIFT is Present. MCH (RBC) [Entitic mass] 33.0 pg 27.0-32.0 [facility] Nucleated RBC/100 WBC (Bld) [Ratio] 0 % 0-5 [facility] MCHC Auto (RBC) [Mass/Vol]Or dered By: Dieter Johnson on 07-25-2022 MCHC (RBC) [Mass/Vol] 32.9 g/dL 32-36 [facility] Platelets bldOrdered By: Sharda Johnson on 07-25-2022 Platelets (Bld) [#/Vol] 171 10*3/uL 150-450 [facility] No Panel InformationOrdered By: Dieter Johnson on 07-24-2022 Activated Clotting Time 233 sec 74-137 [facility] Basophil percentageOrdered B y: Dieter Johnson on 07-17-2022 Chloride [Moles/Vol] 105 mmol/L 98-107 [facility] Glucose [Mass/Vol] 93 mg/dL 74-106 [facility] Potassium [Moles/Vol] 4.8 mmol/L 3.5-5.1 [facility] Sodium [Moles/Vol] 137 mmol/L 136-145 [facility] Basophil percentageOrdered B y: Clint Montes on 07-17-2022 Bilirubin [Mass/Vol] 0.40 mg/dL 0.20-1.00 [facility] Comment on above: For patients on eltr ombopag therapy, use of Dimension Petros TBIL is not recommended. Protein [Mass/Vol] 7.5 g/dL 6.4-8.2 [facility] Direct bilirubinOrdered By: Clint Montes on 07-17-2022 Bilirubin.direct [Mass/Vol] 0.12 mg/dL 0.00-0.30 [facility] INR in Blood by Coagulation assayOrdered By: Clint Montes on 07-17-2022 INR Coag (Bld) [Relative time] 1.2 {INR} [facility] Laboratory - Chemistry and C hemistry - challengeOrdered By: Dieter Johnson on 07-17-2022 CO2 [Moles/Vol] 27.0 mmol/L 21.0-32.0 [facility] Urea nitrogen/Creatinine [Mass ratio] 16.7 mg/mg 10-20 [facility] - Chemistry and C hemistry - challengeOrdered By: Clint Montes on 07-17-2022 ALP [Catalytic activity/Vol] 84 U/L 45-117 [facility] ALT [Catalytic activity/Vol] 28 U/L 13-56 [facility] Globulin (S) [Mass/Vol] 3.7 g/dL 2.2-4.2 [facility] - CoagulationOrde red By: Clint Montes on 07-17-2022 aPTT Coag (Bld) [Time] 37.9 s 24.1-36.2 [facility] PT Coag (PPP) [Time] 15.1 s 11.7-14.9 [facility] No Panel InformationOrdered By: Dieter Johnson on 07-17-2022 Estimated GFR (MDRD) Amer 45 mL/min >60 [facility] Comment on above: GFR Calc Estimated GFR (MDRD) Non-Af Amer 37 mL/min >60 [facility] Comment on above: Non- GFR Calc Serum or plasma albumin benigno urement (mass/volume)Ordered By: Clint Montes on 07-17-2022 Albumin [Mass/Vol] 3.8 g/dL 3.2-5.0 [facility] Serum or plasma calcium benigno urement (mass/volume)Ordered By: Dieter Johnson on 07-17-2022 Calcium [Mass/Vol] 9.2 mg/dL 8.5-10.1 [facility] Serum or plasma creatinine m easurement (mass/volume)Ordered By: Dieter Johnson on 07-17-2022 Creatinine [Mass/Vol] 1.44 mg/dL 0.55-1.02 [facility] Comment on above: The validity of the calculated GFR & GFRAA in patients over 70 years has not been determined. Clinical correlation is essential. Serum or plasma urea nitroge n measurement (mass/volume)Ordered By: Dieter Johnson on 07-17-2022 Urea nitrogen [Mass/Vol] 24 mg/dL 7-18 [facility] Thin prep Papanicolaou smear with manual screeningOrdered By: Dieter Johnson on 07-17-2022 Thin prep Papanicolaou smear with manual screening 5 5-15 [facility] Thin prep Papanicolaou smear with manual screeningOrdered By: Clint Montes on 07-17-2022 Thin prep Papanicolaou smear with manual screening 31 U/L 15-37 [facility] Absolute lymphocyte countOrd ered By: Dr. Viveros on 06-13-2022 Lymphocytes Auto (Unsp spec) [#/Vol] 1.29 10*3/uL 0.83-4.51 [facility] Basophil percentageOrdered B y: Dr. Viveros on 06-13-2022 Basophil percentage 0 SEEN /hpf 0-5 [facility] Basophil percentage 3.0 mg/dL 2.5-4.9 [facility] Basophils/100 WBC (Bld) 0.7 % 0-1 [facility] Bilirubin [Mass/Vol] 0.40 mg/dL 0.20-1.00 [facility] Comment on above: For patients on eltr ombopag therapy, use of Dimension Petros TBIL is not recommended. Chloride [Moles/Vol] 105 mmol/L 98-107 [facility] Cholesterol [Mass/Vol] 202 mg/dL <200 [facility] Comment on above: <200 mg/dL Desirable 200-240 mg/dL Borderline >240 mg/dL High Risk Eosinophils/100 WBC (Bld) 1.6 % 0-5 [facility] Glucose [Mass/Vol] 107 mg/dL 74-106 [facility] Comment on above: Fasting Glucose resu lt from 100 to 125 mg/dL suggests IMPAIRED HOMEOSTASIS per A.D.A. criteria. Neutrophils (Bld) [#/Vol] 6.1 10*3/uL 2.0-7.7 [facility] Neutrophils/100 WBC (Bld) 75.1 % 47-70 [facility] Potassium [Moles/Vol] 4.6 mmol/L 3.5-5.1 [facility] Protein [Mass/Vol] 7.0 g/dL 6.4-8.2 [facility] Sodium [Moles/Vol] 137 mmol/L 136-145 [facility] Triglyceride [Mass/Vol] 136 mg/dL <199 [facility] Comment on above: The drugs N-Acetylcy steine and Metamizole may falsely depress this assay.Serum Triglycerides Reference Interval Normal <150 mg/dL Borderline high 150 - 199 mg/dL High 200 - 499 mg/dL Very High > or = 500 mg/dL WBC (Bld) [#/Vol] 8.1 10*3/uL 4.4-11.0 [facility] Bilirubin Test strip Ql (U)O rdered By: Dr. Viveros on 06-13-2022 Bilirubin Ql (U) Negative Negative [facility] Blood erythrocytes count (nu mber/volume)Ordered By: Dr. Viveros on 06-13-2022 RBC (Bld) [#/Vol] 3.78 10*6/uL 4.2-5.4 [facility] Blood hemoglobin measurement (mass/volume)Ordered By: Dr. Viveros on 06-13-2022 Hemoglobin (Bld) [Mass/Vol] 12.3 g/dL 12.0-15.0 [facility] Blood lymphocytes/100 leukoc ytesOrdered By: Dr. Viveros on 06-13-2022 Lymphocytes/100 WBC (Bld) 16.0 % 19-41 [facility] Blood monocytes/100 leukocyt esOrdered By: Dr. Viveros on 06-13-2022 Monocytes/100 WBC (Bld) 6.4 % 0-10 [facility] Blood platelet mean volumeOr dered By: Dr. Viveros on 06-13-2022 Platelet mean volume (Bld) [Entitic vol] 9.7 fL 6.2-12.0 [facility] Determination of erythrocyte mean corpuscular volume (MCV)Ordered By: Dr. Viveros on 06-13-2022 MCV (RBC) [Entitic vol] 99.2 fL 81-99 [facility] Hematocrit Auto (Bld) [Volum e fraction]Ordered By: Dr. Viveros on 06-13-2022 Hematocrit (Bld) [Volume fraction] 37.5 % 37-47 [facility] Ketones Test strip Ql (U)Ord ered By: Dr. Viveros on 06-13-2022 Ketones Ql (U) Negative Negative [facility] Laboratory - Chemistry and C hemistry - challengeOrdered By: Dr. Viveros on 06-13-2022 ALP [Catalytic activity/Vol] 74 U/L 45-117 [facility] ALT [Catalytic activity/Vol] 35 U/L 13-56 [facility] CO2 [Moles/Vol] 25.0 mmol/L 21.0-32.0 [facility] Free T4 [Mass/Vol] 0.90 ng/dL 0.76-1.46 [facility] Globulin (S) [Mass/Vol] 3.3 g/dL 2.2-4.2 [facility] Magnesium [Mass/Vol] 2.0 mg/dL 1.6-2.6 [facility] Urea nitrogen/Creatinine [Mass ratio] 15.4 mg/mg 10-20 [facility] - Hematology and Cell countsOrdered By: Dr. Viveros on 06-13-2022 Erythrocyte distribution width (RBC) [Entitic vol] 44.6 fL 35.1-43.9 [facility] Erythrocyte distribution width (RBC) [Ratio] 12.5 % 11.6-14.6 [facility] Immature granulocytes/100 WBC (Bld) 0.200 % 0.0-0.9 [facility] Comment on above: IG% - Immature Granu locytes (promyelocytes, myelocytes and metamyelocytes) > 1% indicates that a LEFT SHIFT is Present. MCH (RBC) [Entitic mass] 32.5 pg 27.0-32.0 [facility] Nucleated RBC/100 WBC (Bld) [Ratio] 0 % 0-5 [facility] MCHC Auto (RBC) [Mass/Vol]Or dered By: Dr. Viveros on 06-13-2022 MCHC (RBC) [Mass/Vol] 32.8 g/dL 32-36 [facility] Mucus LM Ql (Urine sed)Order ed By: Dr. Viveros on 06-13-2022 Mucus Ql (Urine sed) 0 SEEN /hpf [facility] Nitrite Test strip Ql (U)Ord ered By: Dr. Viveros on 06-13-2022 Nitrite Ql (U) Negative Negative [facility] No Panel InformationOrdered By: Dr. Viveros on 06-13-2022 Estimated GFR (MDRD) Amer 48 mL/min >60 [facility] Comment on above: GFR Calc Estimated GFR (MDRD) Non-Af Amer 39 mL/min >60 [facility] Comment on above: Non- GFR Calc Parathyroid Hormone (Intact) 94.9 pg/mL 18.4-80.1 [facility] Thyroid Stimulating Hormone (TSH) 13.60 uIU/mL 0.358-3.74 [facility] Platelets bldOrdered By: Dr. Viveros on 06-13-2022 Platelets (Bld) [#/Vol] 244 10*3/uL 150-450 [facility] Protein Test strip Ql (U)Ord ered By: Dr. Viveros on 06-13-2022 Protein Ql (U) Negative Negative [facility] Serum or plasma albumin benigno urement (mass/volume)Ordered By: Dr. Viveros on 06-13-2022 Albumin [Mass/Vol] 3.7 g/dL 3.2-5.0 [facility] Serum or plasma albumin/glob ulin mass ratioOrdered By: Dr. Viveros on 06-13-2022 Albumin/Globulin [Mass ratio] 1.1 {ratio} 0.9-2.4 [facility] Serum or plasma calcium bengino urement (mass/volume)Ordered By: Dr. Viveros on 06-13-2022 Calcium [Mass/Vol] 9.2 mg/dL 8.5-10.1 [facility] Serum or plasma cholesterol in HDL measurement (mass/volume)Ordered By: Dr. Viveros on 06-13-2022 Cholesterol in HDL [Mass/Vol] 54 mg/dL >40 [facility] Comment on above: The drugs N-Acetylcy steine and Metamizole may falsely depress this assay. Reference Range HDL <40 mg/dL Low HDL Cholesterol HDL >or= 60 mg/dL High HDL Cholesterol Serum or plasma cholesterol in VLDL measurement (mass/volume)Ordered By: Dr. Viveros on 06-13-2022 Cholesterol in VLDL [Mass/Vol] 27 mg/dL 5-40 [facility] Serum or plasma creatinine m easurement (mass/volume)Ordered By: Dr. Viveros on 06-13-2022 Creatinine [Mass/Vol] 1.36 mg/dL 0.55-1.02 [facility] Comment on above: The validity of the calculated GFR & GFRAA in patients over 70 years has not been determined. Clinical correlation is essential. Serum or plasma low density lipoprotein (LDL) cholesterol measurement (mass/volume)Ordered By: Dr. Viveros on 06-13-2022 Cholesterol in LDL [Mass/Vol] 121 mg/dL 0-130 [facility] Serum or plasma urea nitroge n measurement (mass/volume)Ordered By: Dr. Viveros on 06-13-2022 Urea nitrogen [Mass/Vol] 21 mg/dL 7-18 [facility] Squamous epithelial cells de tection in urine sediment by light microscopyOrdered By: Dr. Viveros on 06-13-2022 Epithelial cells.squamous LM Ql (Urine sed) 0-5 SEEN /hpf 5-10 [facility] Thin prep Papanicolaou smear with manual screeningOrdered By: Dr. Viveros on 06-13-2022 Thin prep Papanicolaou smear with manual screening 36 U/L 15-37 [facility] Thin prep Papanicolaou smear with manual screening 7 5-15 [facility] Urine blood detectionOrdered By: Dr. Viveros on 06-13-2022 RBC Ql (U) Negative Negative [facility] RBC Ql (U) 0 SEEN /hpf 0-5 [facility] Urine clarityOrdered By: Dr. Viveros on 06-13-2022 Clarity (U) Clear Clear [facility] Urine color determinationOrd ered By: Dr. Viveros on 06-13-2022 Color (U) Yellow Yellow [facility] Urine creatinine measurement (mass/volume)Ordered By: Dr. Viveros on 06-13-2022 Creatinine (U) [Mass/Vol] 44.60 mg/dL NO RANGE EST. [facility] Urine glucose detectionOrder ed By: Dr. Viveros on 06-13-2022 Glucose Ql (U) Normal mg/dl Normal [facility] Urine leukocyte esterase det ection by dipstickOrdered By: Dr. Viveros on 06-13-2022 Leukocyte esterase Test strip Ql (U) Negative Negative [facility] Urine pHOrdered By: Dr. Dewey andino on 06-13-2022 pH (U) 7.0 [pH] 5.0 - 8.0 [facility] Urine protein measurement (m ass/volume)Ordered By: Dr. Viveros on 06-13-2022 Protein (U) [Mass/Vol] 6.8 mg/dL 0.0-11.8 [facility] Urine protein/creatinine mas s ratioOrdered By: Dr. Viveros on 06-13-2022 Protein/Creatinine (U) [Mass ratio] 152 mg/g CRE 0-200 [facility] Urine sediment bacteria coun t by microscopy (number/high power field)Ordered By: Dr. Viveros on 06-13-2022 Bacteria LM.HPF (Urine sed) [#/Area] 0 /[HPF] None Seen [facility] Urine specific gravity measu rementOrdered By: Dr. Viveros on 06-13-2022 Specific gravity (U) [Rel density] 1.015 1.002-1.03 0 [facility] Urobilinogen Auto test strip Ql (U)Ordered By: Dr. Viveros on 06-13-2022 Urobilinogen Ql (U) Normal mg/dl Normal [facility] No Panel InformationOrdered By: Dr. Johnson on 05-30-2022 Estimated GFR (MDRD) Amer 54 mL/min >60 [facility] Comment on above: GFR Calc Estimated GFR (MDRD) Non-Af Amer 45 mL/min >60 [facility] Comment on above: Non- GFR Calc Serum or plasma creatinine m easurement (mass/volume)Ordered By: Dr. Johnson on 05-30-2022 Creatinine [Mass/Vol] 1.21 mg/dL 0.55-1.02 [facility] Comment on above: The validity of the calculated GFR & GFRAA in patients over 70 years has not been determined. Clinical correlation is essential. Absolute lymphocyte counton 12-06-2021 Lymphocytes Auto (Unsp spec) [#/Vol] 0.77 10*3/uL 0.83-4.51 [facility] Work Phone: Basophil percentageon 2021 Basophil percentage 2.0 mg/dL 2.5-4.9 [facility] Work Phone: Basophils/100 WBC (Bld) 0.1 % 0-1 [facility] Work Phone: Chloride [Moles/Vol] 101 mmol/L 98-107 [facility] Work Phone: Eosinophils/100 WBC (Bld) 0.5 % 0-5 [facility] Work Phone: Glucose [Mass/Vol] 118 mg/dL 74-106 [facility] Work Phone: Comment on above: Fasting Glucose resu lt from 100 to 125 mg/dL suggests IMPAIRED HOMEOSTASIS per A.D.A. criteria. Neutrophils (Bld) [#/Vol] 20.3 10*3/uL 2.0-7.7 [facility] Work Phone: Neutrophils/100 WBC (Bld) 90.8 % 47-70 [facility] Work Phone: Potassium [Moles/Vol] 4.2 mmol/L 3.5-5.1 [facility] Work Phone: Sodium [Moles/Vol] 136 mmol/L 136-145 [facility] Work Phone: WBC (Bld) [#/Vol] 22.3 10*3/uL 4.4-11.0 [facility] Work Phone: Blood erythrocytes count (nu mber/volume)on 12-06-2021 RBC (Bld) [#/Vol] 3.30 10*6/uL 4.2-5.4 [facility] Work Phone: Blood hemoglobin measurement (mass/volume)on 12-06-2021 Hemoglobin (Bld) [Mass/Vol] 11.2 g/dL 12.0-15.0 [facility] Work Phone: Blood lymphocytes/100 leukoc yteson 12-06-2021 Lymphocytes/100 WBC (Bld) 3.5 % 19-41 [facility] Work Phone: Blood monocytes/100 leukocyt eson 12-06-2021 Monocytes/100 WBC (Bld) 3.1 % 0-10 [facility] Work Phone: Blood platelet adequacy dete ction by light microscopyon 12-06-2021 Platelets LM Ql (Bld) ADEQUATE ADEQ [facility] Work Phone: Blood platelet mean volumeon 12-06-2021 Platelet mean volume (Bld) [Entitic vol] 9.3 fL 6.2-12.0 [facility] Work Phone: Determination of erythrocyte mean corpuscular volume (MCV)on 12-06-2021 MCV (RBC) [Entitic vol] 98.2 fL 81-99 [facility] Work Phone: Hematocrit Auto (Bld) [Volum e fraction]on 12-06-2021 Hematocrit (Bld) [Volume fraction] 32.4 % 37-47 [facility] Work Phone: Laboratory - Chemistry and C hemistry - challengeon 12-06-2021 CO2 [Moles/Vol] 25.0 mmol/L 21.0-32.0 [facility] Work Phone: Magnesium [Mass/Vol] 1.9 mg/dL 1.6-2.6 [facility] Work Phone: Urea nitrogen/Creatinine [Mass ratio] 23.5 mg/mg - [facility] Work Phone: Laboratory - Hematology and Cell countson 12-06-2021 Erythrocyte distribution width (RBC) [Entitic vol] 46.6 fL 35.1-43.9 [facility] Work Phone: Erythrocyte distribution width (RBC) [Ratio] 13.0 % 11.6-14.6 [facility] Work Phone: Immature granulocytes/100 WBC (Bld) 2.000 % 0.0-0.9 [facility] Work Phone: Comment on above: IG% - Immature Granu locytes (promyelocytes, myelocytes and metamyelocytes) > 1% indicates that a LEFT SHIFT is Present. MCH (RBC) [Entitic mass] 33.9 pg 27.0-32.0 [facility] Work Phone: Nucleated RBC/100 WBC (Bld) [Ratio] 0 % 0-5 [facility] Work Phone: MCHC Auto (RBC) [Mass/Vol]on 12-06-2021 MCHC (RBC) [Mass/Vol] 34.6 g/dL 32-36 [facility] Work Phone: No Panel Informationon 12-06 Estimated Creatinine Clearance Calc 32.77 ml/min [facility] Work Phone: Estimated GFR (MDRD) Amer 58 mL/min >60 [facility] Work Phone: Comment on above: GFR Calc Estimated GFR (MDRD) Non-Af Amer 48 mL/min >60 [facility] Work Phone: Comment on above: Non- GFR Calc Platelets bldon 12-06-2021 Platelets (Bld) [#/Vol] 249 10*3/uL 150-450 [facility] Work Phone: RBC morphologyon 12-06-2021 RBC morphology finding Nom (Bld) NORM C+C NORMAL NORM C&C [facility] Work Phone: Serum or plasma calcium benigno urement (mass/volume)on 12-06-2021 Calcium [Mass/Vol] 8.8 mg/dL 8.5-10.1 [facility] Work Phone: Serum or plasma creatinine m easurement (mass/volume)on 12-06-2021 Creatinine [Mass/Vol] 1.15 mg/dL 0.55-1.02 [facility] Work Phone: Comment on above: The validity of the calculated GFR & GFRAA in patients over 70 years has not been determined. Clinical correlation is essential. Serum or plasma urea nitroge n measurement (mass/volume)on 12-06-2021 Urea nitrogen [Mass/Vol] 27 mg/dL 7-18 [facility] Work Phone: Thin prep Papanicolaou smear with manual screeningon 12-06-2021 Thin prep Papanicolaou smear with manual screening 10 5-15 [facility] Work Phone: Macrocytes detectionon 12-05 [facility]l (Bld) [facility]: No Panel Informationon 12-05 Thyroid Stimulating Hormone (TSH) 1.87 uIU/mL 0.358-3.74 [facility] Work Phone: Absolute lymphocyte counton 12-04-2021 Lymphocytes Auto (Unsp spec) [#/Vol] 0.23 10*3/uL 0.83-4.51 [facility] Work Phone: Basophil percentageon 2021 Basophil percentage 5-10 SEEN /hpf 0-5 [facility] Work Phone: Basophils/100 WBC (Bld) 0.2 % 0-1 [facility] Work Phone: Chloride [Moles/Vol] 102 mmol/L 98-107 [facility] Work Phone: Eosinophils/100 WBC (Bld) 0.0 % 0-5 [facility] Work Phone: Glucose [Mass/Vol] 125 mg/dL 74-106 [facility] Work Phone: Comment on above: Fasting Glucose resu lt from 100 to 125 mg/dL suggests IMPAIRED HOMEOSTASIS per A.D.A. criteria. Lactate [Moles/Vol] 1.9 mmol/L 0.4-2.0 [facility] Work Phone: Neutrophils (Bld) [#/Vol] 22.9 10*3/uL 2.0-7.7 [facility] Work Phone: Neutrophils/100 WBC (Bld) 94.4 % 47-70 [facility] Work Phone: Potassium [Moles/Vol] 4.3 mmol/L 3.5-5.1 [facility] Work Phone: Sodium [Moles/Vol] 137 mmol/L 136-145 [facility] Work Phone: WBC (Bld) [#/Vol] 24.2 10*3/uL 4.4-11.0 [facility] Work Phone: Bilirubin Test strip Ql (U)o n 12-04-2021 Bilirubin Ql (U) Negative Negative [facility] Work Phone: Blood erythrocytes count (nu mber/volume)on 12-04-2021 RBC (Bld) [#/Vol] 3.74 10*6/uL 4.2-5.4 [facility] Work Phone: Blood hemoglobin measurement (mass/volume)on 12-04-2021 Hemoglobin (Bld) [Mass/Vol] 12.5 g/dL 12.0-15.0 [facility] Work Phone: Blood lymphocytes/100 leukoc yteson 12-04-2021 Lymphocytes/100 WBC (Bld) 1.0 % 19-41 [facility] Work Phone: Blood manual differential co mment interpretation (narrative result)on 12-04-2021 Manual differential comment Daniel (Bld) [Interp] SCANNED [facility] Work Phone: Comment on above: NEUTROPHILIA NOTEDLY MPHOPENIA NOTED Blood monocytes/100 leukocyt eson 12-04-2021 Monocytes/100 WBC (Bld) 1.8 % 0-10 [facility] Work Phone: Blood platelet mean volumeon 12-04-2021 Platelet mean volume (Bld) [Entitic vol] 9.2 fL 6.2-12.0 [facility] Work Phone: Determination of erythrocyte mean corpuscular volume (MCV)on 12-04-2021 MCV (RBC) [Entitic vol] 99.7 fL 81-99 [facility] Work Phone: Hematocrit Auto (Bld) [Volum e fraction]on 12-04-2021 Hematocrit (Bld) [Volume fraction] 37.3 % 37-47 [facility] Work Phone: Ketones Test strip Ql (U)on 12-04-2021 Ketones Ql (U) 5 mg/dl Negative [facility] Work Phone: Laboratory - Chemistry and C hemistry - challengeon 12-04-2021 CO2 [Moles/Vol] 25.0 mmol/L 21.0-32.0 [facility] Work Phone: Urea nitrogen/Creatinine [Mass ratio] 12.8 mg/mg 10-20 [facility] Work Phone: Laboratory - Hematology and Cell countson 12-04-2021 Erythrocyte distribution width (RBC) [Entitic vol] 46.8 fL 35.1-43.9 [facility] Work Phone: Erythrocyte distribution width (RBC) [Ratio] 12.9 % 11.6-14.6 [facility] Work Phone: Immature granulocytes/100 WBC (Bld) 2.600 % 0.0-0.9 [facility] Work Phone: Comment on above: IG% - Immature Granu locytes (promyelocytes, myelocytes and metamyelocytes) > 1% indicates that a LEFT SHIFT is Present. MCH (RBC) [Entitic mass] 33.4 pg 27.0-32.0 [facility] Work Phone: Nucleated RBC/100 WBC (Bld) [Ratio] 0 % 0-5 [facility] Work Phone: MCHC Auto (RBC) [Mass/Vol]on 12-04-2021 MCHC (RBC) [Mass/Vol] 33.5 g/dL 32-36 [facility] Work Phone: Mucus LM Ql (Urine sed)on Mucus Ql (Urine sed) 0 SEEN /hpf [facility] Work Phone: Nitrite Test strip Ql (U)on 12-04-2021 Nitrite Ql (U) Negative Negative [facility] Work Phone: No Panel Informationon 12-04 Estimated Creatinine Clearance Calc 25.46 ml/min [facility] Work Phone: Estimated GFR (MDRD) Amer 43 mL/min >60 [facility] Work Phone: Comment on above: GFR Calc Estimated GFR (MDRD) Non-Af Amer 36 mL/min >60 [facility] Work Phone: Comment on above: Non- GFR Calc Platelets bldon 12-04-2021 Platelets (Bld) [#/Vol] 283 10*3/uL 150-450 [facility] Work Phone: Protein Test strip Ql (U)on 12-04-2021 Protein Ql (U) 30 mg/dl Negative [facility] Work Phone: Serum or plasma calcium benigno urement (mass/volume)on 12-04-2021 Calcium [Mass/Vol] 9.2 mg/dL 8.5-10.1 [facility] Work Phone: Serum or plasma creatinine m easurement (mass/volume)on 12-04-2021 Creatinine [Mass/Vol] 1.48 mg/dL 0.55-1.02 [facility] Work Phone: Comment on above: The validity of the calculated GFR & GFRAA in patients over 70 years has not been determined. Clinical correlation is essential. Serum or plasma urea nitroge n measurement (mass/volume)on 12-04-2021 Urea nitrogen [Mass/Vol] 19 mg/dL 10-03 [facility] Work Phone: Squamous epithelial cells de tection in urine sediment by light microscopyon 12-04-2021 Epithelial cells.squamous LM Ql (Urine sed) 0-5 SEEN /hpf 5-10 [facility] Work Phone: Thin prep Papanicolaou smear with manual screeningon 12-04-2021 Thin prep Papanicolaou smear with manual screening 10 5-15 [facility] Work Phone: Urine blood detectionon 11-17 RBC Ql (U) Negative Negative [facility] Work Phone: RBC Ql (U) 0 SEEN /hpf 0-5 [facility] Work Phone: Urine clarityon 12-04-2021 Clarity (U) Clear Clear [facility] Work Phone: Urine color determinationon 12-04-2021 Color (U) Yellow Yellow [facility] Work Phone: Urine glucose detectionon Glucose Ql (U) Normal mg/dl Normal [facility] Work Phone: Urine leukocyte esterase det ection by dipstickon 12-04-2021 Leukocyte esterase Test strip Ql (U) 25 /ul Negative [facility] Work Phone: Urine pHon 12-04-2021 pH (U) 6.5 [pH] 5.0 - 8.0 [facility] Work Phone: Urine sediment bacteria coun t by microscopy (number/high power field)on 12-04-2021 Bacteria LM.HPF (Urine sed) [#/Area] 1 /[HPF] None Seen [facility] Work Phone: Urine specific gravity measu rementon 12-04-2021 Specific gravity (U) [Rel density] 1.010 1.002-1.03 0 [facility] Work Phone: Urobilinogen Auto test strip Ql (U)on 12-04-2021 Urobilinogen Ql (U) 1 mg/dl Normal [facility] Work Phone: Absolute lymphocyte counton 11-27-2021 Lymphocytes Auto (Unsp spec) [#/Vol] 0.73 10*3/uL 0.83-4.51 [facility] Work Phone: Basophil percentageon 2021 Basophil percentage 0-5 SEEN /hpf 0-5 [facility] Work Phone: Basophils/100 WBC (Bld) 0.1 % 0-1 [facility] Work Phone: Chloride [Moles/Vol] 101 mmol/L 98-107 [facility] Work Phone: Eosinophils/100 WBC (Bld) 0.1 % 0-5 [facility] Work Phone: Glucose [Mass/Vol] 181 mg/dL 74-106 [facility] Work Phone: Comment on above: Fasting Glucose resu lt greater than or equal to 126 mg/dL suggests DIABETES MELLITUS per A.D.A. criteria. Neutrophils (Bld) [#/Vol] 13.4 10*3/uL 2.0-7.7 [facility] Work Phone: Neutrophils/100 WBC (Bld) 88.7 % 47-70 [facility] Work Phone: Potassium [Moles/Vol] 4.1 mmol/L 3.5-5.1 [facility] Work Phone: Sodium [Moles/Vol] 134 mmol/L 136-145 [facility] Work Phone: WBC (Bld) [#/Vol] 15.1 10*3/uL 4.4-11.0 [facility] Work Phone: Bilirubin Test strip Ql (U)o n 11-27-2021 Bilirubin Ql (U) Negative Negative [facility] Work Phone: Blood erythrocytes count (nu mber/volume)on 11-27-2021 RBC (Bld) [#/Vol] 3.64 10*6/uL 4.2-5.4 [facility] Work Phone: Blood hemoglobin measurement (mass/volume)on 11-27-2021 Hemoglobin (Bld) [Mass/Vol] 12.4 g/dL 12.0-15.0 [facility] Work Phone: Blood lymphocytes/100 leukoc yteson 11-27-2021 Lymphocytes/100 WBC (Bld) 4.8 % 19-41 [facility] Work Phone: Blood monocytes/100 leukocyt eson 11-27-2021 Monocytes/100 WBC (Bld) 5.8 % 0-10 [facility] Work Phone: Blood platelet mean volumeon 11-27-2021 Platelet mean volume (Bld) [Entitic vol] 9.3 fL 6.2-12.0 [facility] Work Phone: Determination of erythrocyte mean corpuscular volume (MCV)on 11-27-2021 MCV (RBC) [Entitic vol] 97.5 fL 81-99 [facility] Work Phone: Hematocrit Auto (Bld) [Volum e fraction]on 11-27-2021 Hematocrit (Bld) [Volume fraction] 35.5 % 37-47 [facility] Work Phone: Ketones Test strip Ql (U)on 11-27-2021 Ketones Ql (U) Negative Negative [facility] Work Phone: Laboratory - Chemistry and C hemistry - challengeon 11-27-2021 CO2 [Moles/Vol] 25.0 mmol/L 21.0-32.0 [facility] Work Phone: Urea nitrogen/Creatinine [Mass ratio] 16.0 mg/mg 10-20 [facility] Work Phone: Laboratory - Hematology and Cell countson 11-27-2021 Erythrocyte distribution width (RBC) [Entitic vol] 45.6 fL 35.1-43.9 [facility] Work Phone: Erythrocyte distribution width (RBC) [Ratio] 12.7 % 11.6-14.6 [facility] Work Phone: Immature granulocytes/100 WBC (Bld) 0.500 % 0.0-0.9 [facility] Work Phone: Comment on above: IG% - Immature Granu locytes (promyelocytes, myelocytes and metamyelocytes) > 1% indicates that a LEFT SHIFT is Present. MCH (RBC) [Entitic mass] 34.1 pg 27.0-32.0 [facility] Work Phone: Nucleated RBC/100 WBC (Bld) [Ratio] 0 % 0-5 [facility] Work Phone: MCHC Auto (RBC) [Mass/Vol]on 11-27-2021 MCHC (RBC) [Mass/Vol] 34.9 g/dL 32-36 [facility] Work Phone: Mucus LM Ql (Urine sed)on Mucus Ql (Urine sed) 0 SEEN /hpf [facility] Work Phone: Nitrite Test strip Ql (U)on 11-27-2021 Nitrite Ql (U) Negative Negative [facility] Work Phone: No Panel Informationon 11-27 Estimated Creatinine Clearance Calc 31.67 ml/min [facility] Work Phone: Estimated GFR (MDRD) Amer 56 mL/min >60 [facility] Work Phone: Comment on above: GFR Calc Estimated GFR (MDRD) Non-Af Amer 46 mL/min >60 [facility] Work Phone: Comment on above: Non- GFR Calc Troponin I High Sensitivity 7 pg/mL 3.0-54.0 [facility] Work Phone: Comment on above: Please Note: New Joselyn t Units and Gender Specific Reference Ranges. For more information see Policy Stat Procedure Petros High Sensitivity Troponin (TNIH) and attachments. Platelets bldon 11-27-2021 Platelets (Bld) [#/Vol] 235 10*3/uL 150-450 [facility] Work Phone: Protein Test strip Ql (U)on 11-27-2021 Protein Ql (U) 15 mg/dl Negative [facility] Work Phone: Serum or plasma calcium benigno urement (mass/volume)on 11-27-2021 Calcium [Mass/Vol] 9.1 mg/dL 8.5-10.1 [facility] Work Phone: Serum or plasma creatinine m easurement (mass/volume)on 11-27-2021 Creatinine [Mass/Vol] 1.19 mg/dL 0.55-1.02 [facility] Work Phone: Comment on above: The validity of the calculated GFR & GFRAA in patients over 70 years has not been determined. Clinical correlation is essential. Serum or plasma urea nitroge n measurement (mass/volume)on 11-27-2021 Urea nitrogen [Mass/Vol] 19 mg/dL 7-18 [facility] Work Phone: Squamous epithelial cells de tection in urine sediment by light microscopyon 11-27-2021 Epithelial cells.squamous LM Ql (Urine sed) 0 SEEN /hpf 5-10 [facility] Work Phone: Thin prep Papanicolaou smear with manual screeningon 11-27-2021 Thin prep Papanicolaou smear with manual screening 8 5-15 [facility] Work Phone: Urine blood detectionon 11-17 RBC Ql (U) Negative Negative [facility] Work Phone: RBC Ql (U) 0 SEEN /hpf 0-5 [facility] Work Phone: Urine clarityon 11-27-2021 Clarity (U) Clear Clear [facility] Work Phone: Urine color determinationon 11-27-2021 Color (U) Yellow Yellow [facility] Work Phone: Urine glucose detectionon Glucose Ql (U) Normal mg/dl Normal [facility] Work Phone: Urine leukocyte esterase det ection by dipstickon 11-27-2021 Leukocyte esterase Test strip Ql (U) 25 /ul Negative [facility] Work Phone: Urine pHon 11-27-2021 pH (U) 6.5 [pH] 5.0 - 8.0 [facility] Work Phone: Urine sediment bacteria coun t by microscopy (number/high power field)on 11-27-2021 Bacteria LM.HPF (Urine sed) [#/Area] 1 /[HPF] None Seen [facility] Work Phone: Urine specific gravity measu rementon 11-27-2021 Specific gravity (U) [Rel density] 1.010 1.002-1.03 0 [facility] Work Phone: Urobilinogen Auto test strip Ql (U)on 11-27-2021 Urobilinogen Ql (U) 1 mg/dl Normal [facility] Work Phone: Absolute lymphocyte counton 11-15-2021 Lymphocytes Auto (Unsp spec) [#/Vol] 0.91 10*3/uL 0.83-4.51 [facility] Work Phone: Basophil percentageon 2021 Basophil percentage 25-50 SEEN /hpf 0-5 [facility] Work Phone: Basophil percentage 3.1 mg/dL 2.5-4.9 [facility] Work Phone: Basophils/100 WBC (Bld) 0.4 % 0-1 [facility] Work Phone: Bilirubin [Mass/Vol] 0.60 mg/dL 0.20-1.00 [facility] Work Phone: Comment on above: For patients on eltr ombopag therapy, use of Dimension Petros TBIL is not recommended. Chloride [Moles/Vol] 101 mmol/L 98-107 [facility] Work Phone: Eosinophils/100 WBC (Bld) 0.7 % 0-5 [facility] Work Phone: Glucose [Mass/Vol] 89 mg/dL 74-106 [facility] Work Phone: Neutrophils (Bld) [#/Vol] 5.4 10*3/uL 2.0-7.7 [facility] Work Phone: Neutrophils/100 WBC (Bld) 78.2 % 47-70 [facility] Work Phone: Potassium [Moles/Vol] 4.4 mmol/L 3.5-5.1 [facility] Work Phone: Protein [Mass/Vol] 7.0 g/dL 6.4-8.2 [facility] Work Phone: Sodium [Moles/Vol] 135 mmol/L 136-145 [facility] Work Phone: WBC (Bld) [#/Vol] 6.9 10*3/uL 4.4-11.0 [facility] Work Phone: Bilirubin Test strip Ql (U)o n 11-15-2021 Bilirubin Ql (U) Negative Negative [facility] Work Phone: Blood erythrocytes count (nu mber/volume)on 11-15-2021 RBC (Bld) [#/Vol] 3.77 10*6/uL 4.2-5.4 [facility] Work Phone: Blood hemoglobin measurement (mass/volume)on 11-15-2021 Hemoglobin (Bld) [Mass/Vol] 12.6 g/dL 12.0-15.0 [facility] Work Phone: Blood lymphocytes/100 leukoc yteson 11-15-2021 Lymphocytes/100 WBC (Bld) 13.2 % 19-41 [facility] Work Phone: Blood monocytes/100 leukocyt eson 11-15-2021 Monocytes/100 WBC (Bld) 7.4 % 0-10 [facility] Work Phone: Blood platelet mean volumeon 11-15-2021 Platelet mean volume (Bld) [Entitic vol] 9.3 fL 6.2-12.0 [facility] Work Phone: Determination of erythrocyte mean corpuscular volume (MCV)on 11-15-2021 MCV (RBC) [Entitic vol] 98.1 fL 81-99 [facility] Work Phone: Hematocrit Auto (Bld) [Volum e fraction]on 11-15-2021 Hematocrit (Bld) [Volume fraction] 37.0 % 37-47 [facility] Work Phone: Ketones Test strip Ql (U)on 11-15-2021 Ketones Ql (U) Negative Negative [facility] Work Phone: Laboratory - Chemistry and C hemistry - challengeon 11-15-2021 ALP [Catalytic activity/Vol] 74 U/L 45-117 [facility] Work Phone: ALT [Catalytic activity/Vol] 42 U/L 13-56 [facility] Work Phone: CO2 [Moles/Vol] 26.0 mmol/L 21.0-32.0 [facility] Work Phone: Free T4 [Mass/Vol] 1.16 ng/dL 0.76-1.46 [facility] Work Phone: Globulin (S) [Mass/Vol] 3.5 g/dL 2.2-4.2 [facility] Work Phone: Magnesium [Mass/Vol] 1.7 mg/dL 1.6-2.6 [facility] Work Phone: Urea nitrogen/Creatinine [Mass ratio] 16.0 mg/mg 10-20 [facility] Work Phone: Laboratory - Hematology and Cell countson 11-15-2021 Erythrocyte distribution width (RBC) [Entitic vol] 45.4 fL 35.1-43.9 [facility] Work Phone: Erythrocyte distribution width (RBC) [Ratio] 12.6 % 11.6-14.6 [facility] Work Phone: Immature granulocytes/100 WBC (Bld) 0.100 % 0.0-0.9 [facility] Work Phone: Comment on above: IG% - Immature Granu locytes (promyelocytes, myelocytes and metamyelocytes) > 1% indicates that a LEFT SHIFT is Present. MCH (RBC) [Entitic mass] 33.4 pg 27.0-32.0 [facility] Work Phone: Nucleated RBC/100 WBC (Bld) [Ratio] 0 % 0-5 [facility] Work Phone: MCHC Auto (RBC) [Mass/Vol]on 11-15-2021 MCHC (RBC) [Mass/Vol] 34.1 g/dL 32-36 [facility] Work Phone: Mucus LM Ql (Urine sed)on Mucus Ql (Urine sed) 0 SEEN /hpf [facility] Work Phone: Nitrite Test strip Ql (U)on 11-15-2021 Nitrite Ql (U) Negative Negative [facility] Work Phone: No Panel Informationon 11-15 Estimated GFR (MDRD) Amer 45 mL/min >60 [facility] Work Phone: Comment on above: GFR Calc Estimated GFR (MDRD) Non-Af Amer 37 mL/min >60 [facility] Work Phone: Comment on above: Non- GFR Calc Parathyroid Hormone (Intact) 74.2 pg/mL 18.4-80.1 [facility] Work Phone: Thyroid Stimulating Hormone (TSH) 9.75 uIU/mL 0.358-3.74 [facility] Work Phone: Platelets bldon 11-15-2021 Platelets (Bld) [#/Vol] 255 10*3/uL 150-450 [facility] Work Phone: Protein Test strip Ql (U)on 11-15-2021 Protein Ql (U) Negative Negative [facility] Work Phone: Serum or plasma albumin benigno urement (mass/volume)on 11-15-2021 Albumin [Mass/Vol] 3.5 g/dL 3.2-5.0 [facility] Work Phone: Serum or plasma albumin/glob ulin mass ratioon 11-15-2021 Albumin/Globulin [Mass ratio] 1.0 {ratio} 0.9-2.4 [facility] Work Phone: Serum or plasma calcium benigno urement (mass/volume)on 11-15-2021 Calcium [Mass/Vol] 8.9 mg/dL 8.5-10.1 [facility] Work Phone: Serum or plasma creatinine m easurement (mass/volume)on 11-15-2021 Creatinine [Mass/Vol] 1.44 mg/dL 0.55-1.02 [facility] Work Phone: Comment on above: The validity of the calculated GFR & GFRAA in patients over 70 years has not been determined. Clinical correlation is essential. Serum or plasma urea nitroge n measurement (mass/volume)on 11-15-2021 Urea nitrogen [Mass/Vol] 23 mg/dL 7-18 [facility] Work Phone: Squamous epithelial cells de tection in urine sediment by light microscopyon 11-15-2021 Epithelial cells.squamous LM Ql (Urine sed) 5-10 SEEN /hpf 5-10 [facility] Work Phone: Thin prep Papanicolaou smear with manual screeningon 11-15-2021 Thin prep Papanicolaou smear with manual screening 38 U/L 15-37 [facility] Work Phone: Thin prep Papanicolaou smear with manual screening 8 5-15 [facility] Work Phone: Urine blood detectionon 08-3 0-2021 RBC Ql (U) 10 /ul Negative [facility] Work Phone: RBC Ql (U) 5-10 SEEN /hpf 0-5 [facility] Work Phone: Urine clarityon 11-15-2021 Clarity (U) Sl. Cloudy Clear [facility] Work Phone: Urine color determinationon 11-15-2021 Color (U) Yellow Yellow [facility] Work Phone: Urine creatinine measurement (mass/volume)on 11-15-2021 Creatinine (U) [Mass/Vol] 130.00 mg/dL NO RANGE EST. [facility] Work Phone: Urine glucose detectionon Glucose Ql (U) Normal mg/dl Normal [facility] Work Phone: Urine leukocyte esterase det ection by dipstickon 11-15-2021 Leukocyte esterase Test strip Ql (U) 500 /ul Negative [facility] Work Phone: Urine pHon 11-15-2021 pH (U) 6.5 [pH] 5.0 - 8.0 [facility] Work Phone: Urine protein measurement (m ass/volume)on 11-15-2021 Protein (U) [Mass/Vol] 19.6 mg/dL 0.0-11.8 [facility] Work Phone: Urine protein/creatinine mas s ratioon 11-15-2021 Protein/Creatinine (U) [Mass ratio] 151 mg/g CRE 0-200 [facility] Work Phone: Urine sediment bacteria coun t by microscopy (number/high power field)on 11-15-2021 Bacteria LM.HPF (Urine sed) [#/Area] 4 /[HPF] None Seen [facility] Work Phone: Urine specific gravity measu rementon 11-15-2021 Specific gravity (U) [Rel density] 1.010 1.002-1.03 0 [facility] Work Phone: Urobilinogen Auto test strip Ql (U)on 11-15-2021 Urobilinogen Ql (U) Normal mg/dl Normal [facility] Work Phone: Absolute lymphocyte counton 09-02-2021 Lymphocytes Auto (Unsp spec) [#/Vol] 1.21 10*3/uL 0.83-4.51 [facility] Work Phone: Basophil percentageon 2021 Basophils/100 WBC (Bld) 0.5 % 0-1 [facility] Work Phone: Bilirubin [Mass/Vol] 0.60 mg/dL 0.20-1.00 [facility] Work Phone: Comment on above: For patients on eltr ombopag therapy, use of Dimension Petros TBIL is not recommended. Chloride [Moles/Vol] 102 mmol/L 98-107 [facility] Work Phone: Cholesterol [Mass/Vol] 205 mg/dL <200 [facility] Work Phone: Comment on above: <200 mg/dL Desirable 200-240 mg/dL Borderline >240 mg/dL High Risk Eosinophils/100 WBC (Bld) 2.2 % 0-5 [facility] Work Phone: Glucose [Mass/Vol] 94 mg/dL 74-106 [facility] Work Phone: Neutrophils (Bld) [#/Vol] 5.8 10*3/uL 2.0-7.7 [facility] Work Phone: Neutrophils/100 WBC (Bld) 74.2 % 47-70 [facility] Work Phone: Potassium [Moles/Vol] 4.4 mmol/L 3.5-5.1 [facility] Work Phone: Protein [Mass/Vol] 7.3 g/dL 6.4-8.2 [facility] Work Phone: Sodium [Moles/Vol] 134 mmol/L 136-145 [facility] Work Phone: Triglyceride [Mass/Vol] 152 mg/dL <199 [facility] Work Phone: Comment on above: The drugs N-Acetylcy steine and Metamizole may falsely depress this assay.Serum Triglycerides Reference Interval Normal <150 mg/dL Borderline high 150 - 199 mg/dL High 200 - 499 mg/dL Very High > or = 500 mg/dL WBC (Bld) [#/Vol] 7.8 10*3/uL 4.4-11.0 [facility] Work Phone: Blood erythrocytes count (nu mber/volume)on 09-02-2021 RBC (Bld) [#/Vol] 3.89 10*6/uL 4.2-5.4 [facility] Work Phone: Blood hemoglobin measurement (mass/volume)on 09-02-2021 Hemoglobin (Bld) [Mass/Vol] 12.8 g/dL 12.0-15.0 [facility] Work Phone: Blood lymphocytes/100 leukoc yteson 09-02-2021 Lymphocytes/100 WBC (Bld) 15.6 % 19-41 [facility] Work Phone: Blood monocytes/100 leukocyt eson 09-02-2021 Monocytes/100 WBC (Bld) 7.1 % 0-10 [facility] Work Phone: Blood platelet mean volumeon 09-02-2021 Platelet mean volume (Bld) [Entitic vol] 9.6 fL 6.2-12.0 [facility] Work Phone: Determination of erythrocyte mean corpuscular volume (MCV)on 09-02-2021 MCV (RBC) [Entitic vol] 97.7 fL 81-99 [facility] Work Phone: Hematocrit Auto (Bld) [Volum e fraction]on 09-02-2021 Hematocrit (Bld) [Volume fraction] 38.0 % 37-47 [facility] Work Phone: Laboratory - Chemistry and C hemistry - challengeon 09-02-2021 ALP [Catalytic activity/Vol] 79 U/L 45-117 [facility] Work Phone: ALT [Catalytic activity/Vol] 29 U/L 13-56 [facility] Work Phone: CO2 [Moles/Vol] 26.0 mmol/L 21.0-32.0 [facility] Work Phone: Free T4 [Mass/Vol] 1.65 ng/dL 0.76-1.46 [facility] Work Phone: Globulin (S) [Mass/Vol] 3.4 g/dL 2.2-4.2 [facility] Work Phone: Magnesium [Mass/Vol] 1.7 mg/dL 1.6-2.6 [facility] Work Phone: Urea nitrogen/Creatinine [Mass ratio] 17.4 mg/mg 10-20 [facility] Work Phone: Laboratory - Hematology and Cell countson 09-02-2021 Erythrocyte distribution width (RBC) [Entitic vol] 43.3 fL 35.1-43.9 [facility] Work Phone: Erythrocyte distribution width (RBC) [Ratio] 12.0 % 11.6-14.6 [facility] Work Phone: Immature granulocytes/100 WBC (Bld) 0.400 % 0.0-0.9 [facility] Work Phone: Comment on above: IG% - Immature Granu locytes (promyelocytes, myelocytes and metamyelocytes) > 1% indicates that a LEFT SHIFT is Present. MCH (RBC) [Entitic mass] 32.9 pg 27.0-32.0 [facility] Work Phone: Nucleated RBC/100 WBC (Bld) [Ratio] 0 % 0-5 [facility] Work Phone: MCHC Auto (RBC) [Mass/Vol]on 09-02-2021 MCHC (RBC) [Mass/Vol] 33.7 g/dL 32-36 [facility] Work Phone: No Panel Informationon 09-02 Estimated GFR (MDRD) Amer 58 mL/min >60 [facility] Work Phone: Comment on above: GFR Calc Estimated GFR (MDRD) Non-Af Amer 48 mL/min >60 [facility] Work Phone: Comment on above: Non- GFR Calc Thyroglobulin Antibody < 1.0 IU/mL 0.0-0.9 [facility] Work Phone: Comment on above: Thyroglobulin Antibo dy measured by [employer]ier[employer] Thyroglobulin Level 37.1 ng/mL 1.5-38.5 [facility] Work Phone: Comment on above: According to the [facility] [employer],the reference interval for Thyroglobulin (TG) should berelated to euthyroid patients and not for patients whounderwent thyroidectomy. TG reference intervals for thesepatients depend on the residual mass of the thyroid tissueleft after surgery. Establishing a post-operative baselineis recommended. The assay limit of quantitation is 0.1ng/mLThyroglobulin measured by Kiersten [employer] Vitamin D 25-Hydroxy 39.1 ng/mL [facility] Work Phone: Comment on above: Vitamin D 25(OH) Sta tus Range Deficiency <20 ng/mL (50nmol/L) Insufficiency 20 - 30 ng/mL (50 - 75 nmol/L) Sufficiency 30 - 100 ng/mL (75 - 250 nmol/L) Toxicity >100 ng/mL (>250 nmol/L) Platelets bldon 09-02-2021 Platelets (Bld) [#/Vol] 236 10*3/uL 150-450 [facility] Work Phone: Serum or plasma albumin benigno urement (mass/volume)on 09-02-2021 Albumin [Mass/Vol] 3.9 g/dL 3.2-5.0 [facility] Work Phone: Serum or plasma albumin/glob ulin mass ratioon 09-02-2021 Albumin/Globulin [Mass ratio] 1.1 {ratio} 0.9-2.4 [facility] Work Phone: Serum or plasma calcium benigno urement (mass/volume)on 09-02-2021 Calcium [Mass/Vol] 9.4 mg/dL 8.5-10.1 [facility] Work Phone: Serum or plasma cholesterol in HDL measurement (mass/volume)on 09-02-2021 Cholesterol in HDL [Mass/Vol] 56 mg/dL >40 [facility] Work Phone: Comment on above: The drugs N-Acetylcy steine and Metamizole may falsely depress this assay. Reference Range HDL <40 mg/dL Low HDL Cholesterol HDL >or= 60 mg/dL High HDL Cholesterol Serum or plasma cholesterol in VLDL measurement (mass/volume)on 09-02-2021 Cholesterol in VLDL [Mass/Vol] 30 mg/dL 5-40 [facility] Work Phone: Serum or plasma creatinine m easurement (mass/volume)on 09-02-2021 Creatinine [Mass/Vol] 1.15 mg/dL 0.55-1.02 [facility] Work Phone: Comment on above: The validity of the calculated GFR & GFRAA in patients over 70 years has not been determined. Clinical correlation is essential. Serum or plasma low density lipoprotein (LDL) cholesterol measurement (mass/volume)on 09-02-2021 Cholesterol in LDL [Mass/Vol] 119 mg/dL 0-130 [facility] Work Phone: Serum or plasma thyroperoxid ase antibody assay (units/volume)on 09-02-2021 TPO Ab Qn [IU]/mL 0-34 [facility] Work Phone: Comment on above: Performed at: [address] [id number] Director: Irvin Goins PhD, Phone: [phone] Serum or plasma urea nitroge n measurement (mass/volume)on 09-02-2021 Urea nitrogen [Mass/Vol] 20 mg/dL 7-18 [facility] Work Phone: Thin prep Papanicolaou smear with manual screeningon 09-02-2021 Thin prep Papanicolaou smear with manual screening 29 U/L 15-37 [facility] Work Phone: Thin prep Papanicolaou smear with manual screening 6 5-15 [facility] Work Phone: Basophil percentageon 2021 Bilirubin [Mass/Vol] 0.60 mg/dL 0.20-1.00 [facility] Work Phone: Comment on above: For patients on eltr ombopag therapy, use of Dimension Petros TBIL is not recommended. Chloride [Moles/Vol] 98 mmol/L 98-107 [facility] Work Phone: Glucose [Mass/Vol] 91 mg/dL 74-106 [facility] Work Phone: Potassium [Moles/Vol] 4.6 mmol/L 3.5-5.1 [facility] Work Phone: Protein [Mass/Vol] 7.7 g/dL 6.4-8.2 [facility] Work Phone: Sodium [Moles/Vol] 131 mmol/L 136-145 [facility] Work Phone: Direct bilirubinon 2 Bilirubin.direct [Mass/Vol] 0.17 mg/dL 0.00-0.30 [facility] Work Phone: Laboratory - Chemistry and C hemistry - challengeon 05-24-2021 ALP [Catalytic activity/Vol] 77 U/L 45-117 [facility] Work Phone: ALT [Catalytic activity/Vol] 31 U/L 13-56 [facility] Work Phone: CO2 [Moles/Vol] 29.0 mmol/L 21.0-32.0 [facility] Work Phone: Globulin (S) [Mass/Vol] 3.7 g/dL 2.2-4.2 [facility] Work Phone: T4 [Mass/Vol] 11.2 ug/dL 4.8-13.9 [facility] Work Phone: Urea nitrogen/Creatinine [Mass ratio] 23.7 mg/mg 10-20 [facility] Work Phone: No Panel Informationon 05-24 Estimated GFR (MDRD) Amer 50 mL/min >60 [facility] Work Phone: Comment on above: GFR Calc Estimated GFR (MDRD) Non-Af Amer 41 mL/min >60 [facility] Work Phone: Comment on above: Non- GFR Calc Thyroid Stimulating Hormone (TSH) 7.25 uIU/mL 0.358-3.74 [facility] Work Phone: Serum or plasma albumin benigno urement (mass/volume)on 05-24-2021 Albumin [Mass/Vol] 4.0 g/dL 3.2-5.0 [facility] Work Phone: Serum or plasma calcium benigno urement (mass/volume)on 05-24-2021 Calcium [Mass/Vol] 9.2 mg/dL 8.5-10.1 [facility] Work Phone: Serum or plasma creatinine m easurement (mass/volume)on 05-24-2021 Creatinine [Mass/Vol] 1.31 mg/dL 0.55-1.02 [facility] Work Phone: Comment on above: The validity of the calculated GFR & GFRAA in patients over 70 years has not been determined. Clinical correlation is essential. Serum or plasma urea nitroge n measurement (mass/volume)on 05-24-2021 Urea nitrogen [Mass/Vol] 31 mg/dL 7-18 [facility] Work Phone: Thin prep Papanicolaou smear with manual screeningon 05-24-2021 Thin prep Papanicolaou smear with manual screening 27 U/L 15-37 [facility] Work Phone: Thin prep Papanicolaou smear with manual screening 4 5-15 [facility] Work Phone: Jacek 06-29-2020 JESSICA Telephone (GASTTW) ----- TRINIDAD PARKER ([id number]) 1935 F Date Time Provider Department 06/29/20 YAIR RUELAS (GRICELDA) GASTTW During your visit today, we recorded the following information about you: Yair Ruelas APRN.CNP 06/29/2020 1:09 PM Signed Left voicemail for patient regarding health maintenance. Last colonoscopy was in 02/2013 and was recommended repeat in 3 years. Phone number given for patient to call to discuss. Yair Ruelas APRN.CNP Allergies As of Date: 06/29/2020 Noted Allergy Reaction METFORMIN 07/25/2012 8 - GI Upset CODEINE 11/15/2005 Comments: severe headache HAS RECENTLY STARTED TAKING A CODEINE MED. FOR COUGH AND IS TOLERATING IT WELL. 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 BABY ASPIRIN ORAL Take by mouth. CLOPIDOGREL 75 MG TABLET METOPROLOL TARTRATE 25 MG TAB* MECLIZINE 25 MG TABLET meclizine 25 mg Tab ISOSORBIDE MONONITRATE ER 30 * MONTELUKAST 10 MG TABLET Take 10 mg by mouth daily at * BUSPIRONE 7.5 MG TABLET Take 7.5 mg by mouth daily at* PEG 3350-ELECTROLYTES 236 GRA* take as directed on instructi* * BENZONATATE 200 MG CAPSULE * ZYRTEC 10 MG TABLET Take one(1) tablet daily. * PRILOSEC 20 MG CAPSULE,DELAYE* Take one(1) capsule twice abebe* * IPRATROPIUM 18 MCG-ALBUTEROL * * ONE-A-DAY WOMENS FORMULA 27 M* * ADVAIR DISKUS 100 MCG-50 MCG/* Take one(1) inhalation twice * * SPIRIVA WITH HANDIHALER 18 MC* * ZOLOFT 100 MG TABLET Take one(1) tablet daily. * LIPITOR 10 MG TABLET Take one(1) tablet daily. * LISINOPRIL 10 MG TABLET Take one(1) tablet daily. 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] 08/16/2018 Encounter Status:Closed by YAIR RUELAS on 06/29/20 Normal [facility] Metabolic Panel, Basic (8004 8)Ordered By: Materials Handler on 01-21-2018 Calcium mass conc 9.6 mg/dL Normal 8.7-10.3 [facility] Work Phone: Comment on above: PATIENT NOT FASTINGP ERFORMED BY: CB [facility] Nxxrjr9943 [facility] [id number] Chloride molar conc 100 mmol/L Normal 96-106 [facility]pr e[facility] Work Phone: Comment on above: PATIENT NOT FASTINGP ERFORMED BY: DAYDAY [facility] Ppdusc6135 Vann RoadDublin [place] [id number] CO2 molar conc 23 mmol/L Normal 20-29 [facility] Work Phone: Comment on above: PATIENT NOT FASTINGP ERFORMED BY: DAYDAY [facility] Dqukkz4062 [address] RoadDublin [place] [id number] Creatinine mass conc 0.87 mg/dL Normal 0.57-1.00 Comp rehens[facility] Work Phone: Comment on above: PATIENT NOT FASTINGP ERFORMED BY: DAYDAY [facility] Nkhqvm4431 [address] RoadNov[facility] Centerin [place] [id number] GFR/1.73 sq M predicted among blacks CKD-EPI vol rate/area (S/P/Bld) 73 mL/min/1.73 Normal [facility] Work Phone: Comment on above: PATIENT NOT FASTINGP ERFORMED BY: DAYDAY [facility] Sufaie4647 [address] RoadNov[facility] Centerin [place] [id number] GFR/1.73 sq M predicted among non-blacks CKD-EPI vol rate/area (S/P/Bld) 63 mL/min/1.73 Normal [facility] Work Phone: Comment on above: PATIENT NOT FASTINGP ERFORMED BY: DAYDAY [facility] Fbxfza4674 [address] [facility] [place] [id number] Glucose mass conc 86 mg/dL Normal 65-99 [facility] Work Phone: Comment on above: PATIENT NOT FASTINGP ERFORMED BY: DAYDAY [facility] Cfblwt8764 [address] Roadblin [place] [id number] Potassium molar conc 4.9 mmol/L Normal 3.5-5.2 Comp rehens[facility] Work Phone: Comment on above: PATIENT NOT FASTINGP ERFORMED BY: DAYDAY [facility] Hcvpde5929 [address] RoadDublin [place] [id number] Sodium molar conc 138 mmol/L Normal 134-144 [facility] Work Phone: Comment on above: PATIENT NOT FASTINGP ERFORMED BY: [facility] Mdijgg8680 [facility] [id number] Urea nitrogen mass conc 15 mg/dL Normal 8-27 [facility] Work Phone: Comment on above: PATIENT NOT FASTINGP ERFORMED BY: [facility] Greyma0338 [facility] [id number] Urea nitrogen/Creatinine mass ratio 17 mg/mg Normal 12-28 [facility] Work Phone: Comment on above: PATIENT NOT FASTINGP ERFORMED BY: [facility] Vqtqhf2527 [facility] [id number] Basic Metabolic Profile (BMP )Ordered By: Materials Handler on 09-05-2017 Basic metabolic 2000 panel 71 mL/min Normal [facility] Work Phone: Comment on above: GFR Calc Comments: for heart cathComments: for [facility] [address] [place], [place], [id number] Basic metabolic 2000 panel 59 mL/min Abnormal [facility] Work Phone: Comment on above: Non- GFR Calc Comments: for heart cathComments: for [facility] Hy[address]thvtlk[address] [place], [place], [id number] Basic metabolic 2000 panel 0.97 mg/dL Normal 0.55-1.02 [facility] Work Phone: Comment on above: The validity of the calculated GFR AND GFRAA in patients over70 years has not been determined. Clinical correlation isessential. Comments: for heart cathComments: for [facility] Wxbtxmbicp65[address] [place], [place], [phone] Basic metabolic 2000 panel 18 mg/dL Normal 7-18 [facility] Work Phone: Comment on above: Comments: for heart cathComments: for [facility] [address] [place], [place], [id number] Basic metabolic 2000 panel 4.4 mmol/L Normal 3.5-5.1 [facility] Work Phone: Comment on above: Comments: for heart cathComments: for [facility] Oahgziookz[address] [place], [place], [id number] Basic metabolic 2000 panel 7 1 Normal 5-15 [facility] Work Phone: Comment on above: Comments: for heart cathComments: for [facility] Zjhlkbijoi[address] [place], [place], [id number] Basic metabolic 2000 panel 88 mg/dL Normal 74-106 [facility] Work Phone: Comment on above: Please note revised GLUCOSE reference range epkfbrhnd76/02/2018. Comments: for heart cathComments: for [facility] K[address]rxhy[address] [place], [place], [id number] Basic metabolic 2000 panel 104 mmol/L Normal 98-107 [facility] Work Phone: Comment on above: Comments: for heart cathComments: for [facility] Thcwmvblca7[address] [place], [place], [address] Basic metabolic 2000 panel 29.0 mmol/L Normal 21.0-32.0 [facility] Work Phone: Comment on above: Comments: for heart cathComments: for [facility] [address]uzjizmg[address] [place], [address] Basic metabolic 2000 panel 140 mmol/L Normal 136-145 [facility] Work Phone: Comment on above: Comments: for heart cathComments: for [facility] I[address]yucri[address] [place], [address] Basic metabolic 2000 panel 18.6 {RATIO} Normal 10-20 [facility] Work Phone: Comment on above: Comments: for heart cathComments: for [facility] Ixmktfivfx[address] [place], [place], [id number] Basic metabolic 2000 panel 9.1 mg/dL Normal 8.5-10.1 [facility] Work Phone: Comment on above: Comments: for heart cathComments: for [facility] Tdklphyecm[address] [place], [id number] CBC-Complete Blood Cnt No Di ffOrdered By: Materials Handler on 09-05-2017 Erythrocyte distribution width Auto Ratio (RBC) 12.2 % Normal 11.6-14.6 [facility] Work Phone: Erythrocyte distribution width Ratio (RBC) 12.2 % Normal 11.6-14.6 [facility] Work Phone: Comment on above: Comments: For heart cathComments: for [facility] [address]aiiw[address] [place], [address] Hematocrit Auto Volume Fraction (Bld) 34.8 % Abnormal 37-47 [facility] Work Phone: Hematocrit Volume Fraction (Bld) 34.8 % Abnormal 37-47 [facility] Work Phone: Comment on above: Comments: For heart cathComments: for [facility] Qqdrfjbstg74[address] [place], [place], [phone] Hemoglobin mass conc (Bld) 11.7 g/dL Abnormal 12.0-15.0 [facility] Work Phone: Comment on above: Comments: For heart cathComments: for [facility] [address]odwuhyk[address] [place], [place], [phone] MCH Auto Entitic mass (RBC) 31.1 pg Normal 27.0-32.0 [facility] Work Phone: MCH Entitic mass (RBC) 31.1 pg Normal 27.0-32.0 [facility] Work Phone: Comment on above: Comments: For heart cathComments: for [facility] Aulvxnfeoa60[address] [place], [phone] MCHC Auto mass conc (RBC) 33.6 {g/gl} Normal 32-36 [facility] Work Phone: MCHC mass conc (RBC) 33.6 {g/gl} Normal 32-36 [facility] prehensive [facility] Work Phone: Comment on above: Comments: For heart cathComments: for [facility] Bqmgtswbdw4127 [address] [place] [place], [phone] MCV Auto Entitic volume (RBC) 92.6 fL Normal 81-99 [facility] Work Phone: MCV Entitic volume (RBC) 92.6 fL Normal 81-99 [facility] Work Phone: Comment on above: Comments: For heart cathComments: for [facility] Idkvdgdrbj[address]25 [place], [address] Platelet mean volume Auto Entitic volume (Bld) 9.5 fL Normal 6.2-12.0 [facility] Work Phone: Platelet mean volume Entitic volume (Bld) 9.5 fL Normal 6.2-12.0 Comprehen[facility] Work Phone: Comment on above: Comments: For heart cathComments: for [facility] [address]uj[address]padxl5[address] [place], [address] Platelets #/vol (Bld) 212 10*3/uL Normal 150-450 [facility] Work Phone: Comment on above: Comments: For heart cathComments: for [facility] Clygxluiug3752 [place], [address] Platelets Auto #/vol (Bld) 212 10*3/uL Normal 150-450 [facility] Work Phone: RBC #/vol (Bld) 3.76 {M/mm3} Abnormal 4.2-5.4 [facility] ens[facility] Work Phone: Comment on above: Comments: For heart cathComments: for [facility] As[address]wfxdmw[address] [place], [address] RBC Auto #/vol (Bld) 3.76 {M/mm3} Abnormal 4.2-5.4 Co m[facility] Work Phone: RDW SD 41.0 fL Normal 35.1-43.9 [facility] Work Phone: WBC #/vol (Bld) 8.3 10*3/uL Normal 4.4-11.0 Comprehe ns[facility] Work Phone: Comment on above: Comments: For heart cathComments: for [facility] [address] [place], [address] WBC Auto #/vol (Bld) 8.3 10*3/uL Normal 4.4-11.0 [facility] prehensive [facility] Work Phone: CBC-Complete Blood Cnt No Diff 41.0 fL Normal 35.1-43.9 [facility] Work Phone: Comment on above: Comments: For heart cathComments: for [facility] [address] [place], [address] BNP,B-Type NATRIURETIC PEPTI DEOrdered By: Materials Handler on 08-31-2017 B-TYPE SALEEM PEP 71.7 pg/mL Normal 0-100 [facility] Work Phone: BNP,B-Type NATRIURETIC PEPTIDE 71.7 pg/mL Normal 0-100 Comprehensiv e [facility] Work Phone: Comment on above: [facility] [address]jcleb[address] [place], [address] ALKALINE PHOSPHATASE ([id number]) Ordered By: Materials Handler on 08-23-2017 ALP enzyme act/vol 84 [iU]/L Normal 39-117 [facility] Work Phone: Comment on above: PATIENT NOT FASTINGP ERFORMED BY: CB [facility] Ztmyjm8453 [address] RoadDublin [place] [id number]; ov 612 C-REACTIVE PROTEIN ([id number])Or dered By: Materials Handler on 08-23-2017 CRP mass conc 2.0 mg/L Normal 0.0-4.9 Comprehensi [facility] Work Phone: Comment on above: PATIENT NOT FASTINGP ERFORMED BY: CB [facility] Dzxfzc4562 [address] RoadDublin [place] [id number] CALCIUM SERUM ([id number])Ordered By: Materials Handler on 08-23-2017 Calcium mass conc 9.5 mg/dL Normal 8.7-10.3 Compreh ens[facility] Work Phone: Comment on above: PATIENT NOT FASTINGP ERFORMED BY: DAYDAY [facility] Ahhcrq0097 [address] RoadDublin [place] [id number] CBC (AUTO) ([id number])Ordered By : Materials Handler on 08-23-2017 Erythrocyte distribution width Auto Ratio (RBC) 12.9 % Normal 12.3-15.4 [facility] Work Phone: Erythrocyte distribution width Ratio (RBC) 12.9 % Normal 12.3-15.4 [facility] Work Phone: Comment on above: PATIENT NOT FASTINGP ERFORMED BY: DAYDAY [facility] Qntkgo0102 [address] RoadDublin [place] [id number] Hematocrit Auto Volume Fraction (Bld) 37.2 % Normal 34.0-46.6 [facility] Work Phone: Hematocrit Volume Fraction (Bld) 37.2 % Normal 34.0-46.6 [facility] Work Phone: Comment on above: PATIENT NOT FASTINGP ERFORMED BY: CB [facility] Tgrjmd6868 [address] RoadDublin [place] [id number] Hemoglobin mass conc (Bld) 12.1 g/dL Normal 11.1-15.9 [facility] Work Phone: Comment on above: PATIENT NOT FASTINGP ERFORMED BY: CB [facility] Hkfwna7845 [address] RoadDublin [place] [id number] MCH Auto Entitic mass (RBC) 31.1 pg Normal 26.6-33.0 [facility] Work Phone: MCH Entitic mass (RBC) 31.1 pg Normal 26.6-33.0 [facility] Work Phone: Comment on above: PATIENT NOT FASTINGP ERFORMED BY: DAYDAY [facility] Bkdoch7283 [facility] [id number] MCHC Auto mass conc (RBC) 32.5 g/dL Normal 31.5-35.7 [facility] Work Phone: MCHC mass conc (RBC) 32.5 g/dL Normal 31.5-35.7 Comp rehensive [facility] Work Phone: Comment on above: PATIENT NOT FASTINGP ERFORMED BY: DAYDAY LabRomaine DangeloOpcmss5340 [facility] [id number] MCV Auto Entitic volume (RBC) 96 fL Normal 79-97 [facility] Work Phone: MCV Entitic volume (RBC) 96 fL Normal 79-97 [facility] Work Phone: Comment on above: PATIENT NOT FASTINGP ERFORMED BY: DAYDAY [facility] Tzmsne0575 [facility] [id number] Platelets #/vol (Bld) 205 {x10E3/uL} Normal 150-379 [facility] Work Phone: Comment on above: PATIENT NOT FASTINGP ERFORMED BY: CB [facility] Ocaipr6847 [facility] [id number] Platelets Auto #/vol (Bld) 205 {x10E3/uL} Normal 150-379 [facility] Work Phone: RBC #/vol (Bld) 3.89 {x10E6/uL} Normal 3.77-5.28 Comp rehensive [facility] Work Phone: Comment on above: PATIENT NOT FASTINGP ERFORMED BY: DAYDAY [facility] Yatjjn6095 [facility] [id number] RBC Auto #/vol (Bld) 3.89 {x10E6/uL} Normal 3.77-5.28 [facility] Work Phone: WBC #/vol (Bld) 6.7 {x10E3/uL} Normal 3.4-10.8 [facility] Work Phone: Comment on above: PATIENT NOT FASTINGP ERFORMED BY: CB [facility] Ovgbin8462 [address]Dublin [place] [id number] WBC Auto #/vol (Bld) 6.7 {x10E3/uL} Normal 3.4-10.8 [facility] Work Phone: PARATHORMONE ([id number])Ordered By: Materials Handler on 08-23-2017 Parathyrin.intact mass conc 31 pg/mL Normal 15-65 [facility] Work Phone: Comment on above: PATIENT NOT FASTINGP ERFORMED BY: CB [facility] Izyijv2686 [address] RoadDublin [place] [id number] PHOSPHORUS ([id number])Ordered By : Materials Handler on 08-23-2017 Phosphate mass conc 3.6 mg/dL Normal 2.5-4.5 [facility] Work Phone: Comment on above: PATIENT NOT FASTINGP ERFORMED BY: CB [facility] Hdtsbu0940 [address] [place] [id number] SED RATE ERYTHROCYTE ([id number]) Ordered By: Materials Handler on 08-23-2017 ESR Velocity (Bld) 3 mm/h Normal 0-40 [facility] Work Phone: Comment on above: PATIENT NOT FASTINGP ERFORMED BY: CB [facility] Ssbxjs1725 [address]Dublin [place] [id number] SPEP ([id number])Ordered By: Syst em Atg Architect on 08-23-2017 Albumin mass conc 3.5 g/dL Normal 2.9-4.4 [facility] Work Phone: Comment on above: PATIENT NOT FASTINGP ERFORMED BY: CB [facility] Itgucl1571 [address] RoadDublin [place] [id number] Albumin/Globulin mass ratio 1.1 {ratio} Normal 0.7-1.7 [facility] Work Phone: Comment on above: PATIENT NOT FASTINGP ERFORMED BY: CB [facility] Dajfcq7921 [address] RoadNovant [facility] Fors[facility] Centerin [place] [id number] Alpha 1 globulin Elph mass conc 0.2 g/dL Normal 0.0-0.4 [facility] Work Phone: Comment on above: PATIENT NOT FASTINGP ERFORMED BY: CB [facility] Ogwbsb2250 V[address] RoadNovant [facility] Fors[facility] Centerin [place] [id number] Alpha 2 globulin Elph mass conc 0.7 g/dL Normal 0.4-1.0 [facility] Work Phone: Comment on above: PATIENT NOT FASTINGP ERFORMED BY: CB [facility] Pukvtv3248 [address] [facility] [place] [id number] Beta globulin Elph mass conc 1.0 g/dL Normal 0.7-1.3 [facility] Work Phone: Comment on above: PATIENT NOT FASTINGP ERFORMED BY: CB [facility] Ewrnlt3462 [address] RoadNovant [facility] Centerin [place] [id number] Gamma globulin Elph mass conc 1.2 g/dL Normal 0.4-1.8 [facility] Work Phone: Comment on above: PATIENT NOT FASTINGP ERFORMED BY: CB [facility] Bzzteg0849 [address] [facility] [id number] Globulin Calculated mass conc (S) 3.1 g/dL Normal 2.2-3.9 [facility] Work Phone: Globulin mass conc (S) 3.1 g/dL Normal 2.2-3.9 [facility] Work Phone: Comment on above: PATIENT NOT FASTINGP ERFORMED BY: CB [facility] Skmnpb9920 [address] [facility] [place] [id number] Laboratory comment Daniel (Report) SPRCS Normal [facility] Work Phone: Comment on above: Protein electrophore sis scan will follow via computer, mail, orcourier delivery. PATIENT NOT FASTINGP ERFORMED BY: CB [facility] Lfcgkg8235 [address] [facility] [place] [id number] Laboratory report . Normal Compreh ensive [facility] Medicine Work Phone: Comment on above: PATIENT NOT FASTINGP ERFORMED BY: DAYDAY Parks6370 [address] [facility] [id number] Protein mass conc 6.6 g/dL Normal 6.0-8.5 Compreh ens[facility] Work Phone: Comment on above: PATIENT NOT FASTINGP ERFORMED BY: DAYDAY Dangelolin6370 [address] [facility] [id number] Protein.monoclonal Elph mass conc Not Observed Normal [facility] Work Phone: Comment on above: PATIENT NOT FASTINGP ERFORMED BY: DAYDAY Dangelolin6370 [facility] [id number] TSH ([id number])Ordered By: Romotivee m Atg Architect on 08-23-2017 Thyrotropin Qn 1.350 {uIU/mL} Normal 0.450-4.50 0 [facility] Work Phone: Comment on above: PATIENT NOT FASTINGP ERFORMED BY: DAYDAY Paul Qhvsep9486 [facility] [id number] UPEP ([id number])Ordered By: Syst em Atg Architect on 08-23-2017 Albumin/Protein.total Elph mass fraction (U) 34.9 % Normal [facility] Work Phone: Comment on above: PATIENT NOT FASTINGP ERFORMED BY: DAYDAY Paulrp Imehxw9977 [facility] [id number] Alpha 1 globulin/Protein.tota l Elph mass fraction (U) 4.7 % Normal [facility] Work Phone: Comment on above: PATIENT NOT FASTINGP ERFORMED BY: DAYDAY [facility] Lwhwen0481 [facility] [id number] Alpha 2 globulin/Protein.tota l Elph mass fraction (U) 14.0 % Normal [facility] Work Phone: Comment on above: PATIENT NOT FASTINGP ERFORMED BY: DAYDAY [facility] Hgchea5105 [facility] [id number] Beta globulin/Protein.tota l Elph mass fraction (U) 34.6 % Normal [facility] Work Phone: Comment on above: PATIENT NOT FASTINGP ERFORMED BY: CB [facility] Ibruqs1472 [address]ann RoadDublin [place] [id number] Gamma globulin/Protein.tota l Elph mass fraction (U) 11.8 % Normal [facility] Work Phone: Comment on above: PATIENT NOT FASTINGP ERFORMED BY: CB [facility] Gocasi1946 [address]ann RoadDublin [place] [id number] Protein mass conc (U) 7.2 mg/dL Normal Com prehensive [facility] Medicine Work Phone: Comment on above: PATIENT NOT FASTINGP ERFORMED BY: CB [facility] Ymvvbb2932 [address]ann RoadDublin [place] [id number] Protein.monoclonal/Pr otein.total Elph mass fraction (U) Not Observed Normal [facility] Work Phone: Comment on above: PATIENT NOT FASTINGP ERFORMED BY: CB [facility] Qfqfov1015 [address]ann RoadDublin [place] [id number] Vitamin D Hydroxy (14164)Ord ered By: Materials Handler on 08-23-2017 25-Hydroxyvitamin D2+25-Hydroxyvitamin D3 mass conc 34.5 ng/mL Normal 30.0-100.0 [facility] Work Phone: Comment on above: Vitamin D deficiency has been defined by the [place] [employer] and an Endocrine Society practice guideline as alevel of serum 25-OH vitamin D less than 20 ng/mL (1,2).The Endocrine Society went on to further define vitamin Dinsufficiency as a level between 21 and 29 ng/mL (2).1. IOM ([place] [employer]). 2010. Dietary reference intakes for calcium and D. [place]: The National Academies Press.2. Trevon MF, Sherrell JEFFERSON, Treva CORLEY, et al. Evaluation, treatment, and prevention of vitamin D deficiency: an Endocrine Society clinical practice guideline. JCEM. 2010; 96(7):1911-30. PATIENT NOT FASTINGP ERFORMED BY: CB [facility] Wziuds[address] [place] [place] [id number] Lipid ProfileOrdered By: Liam tem Atg Architect on 08-17-2017 Cholesterol in HDL mass conc 54 mg/dL Normal [facility] Work Phone: Comment on above: The drugs N-Acetylcy steine and Metamizole may falselydepress this assay. Reference Range HDL <40 mg/dL Low HDL Cholesterol HDL >or= 60 mg/dL High HDL Cholesterol [facility] [address] [place], [place], [address] Cholesterol in LDL mass conc 123 mg/dL Normal 0-130 [facility] Work Phone: Cholesterol in LDL mass conc 123 mg/dL Normal 0-130 [facility] Work Phone: Comment on above: [facility] [address] [place], [place], [id number] Cholesterol in VLDL mass conc 14 mg/dL Normal 5-40 [facility] Work Phone: Comment on above: [facility] [address] [place], [place], [phone] Cholesterol mass conc 191 mg/dL Normal Com prehensive [facility] Medicine Work Phone: Comment on above: <200 mg/dL Desirable 200-240 mg/dL Borderline >240 mg/dL High Risk [facility] [address] [place], [place], [id number] Triglyceride mass conc 70 mg/dL Normal [facility] Work Phone: Comment on above: The drugs N-Acetylcy steine and Metamizole may falselydepress this assay.Serum Triglycerides Reference Interval Normal <150 mg/dL Borderline high 150 - 199 mg/dL High 200 - 499 mg/dL Very High > or = 500 mg/dL [facility] [address] [place], [place], [id number] Lipid Profile 14 mg/dL Normal 5-40 Comprehensi Internal Medicine Work Phone: Liver ProfileOrdered By: Liam tem Atg Architect on 08-17-2017 Albumin mass conc 3.7 g/dL Normal 3.2-5.0 [facility] Internal Medicine Work Phone: Comment on above: [facility] [address] [place], [place], [address]695[address] ALP enzyme act/vol 92 U/L Normal 45-117 [facility] Work Phone: Comment on above: [facility] [address] [place], [place], [phone] ALT enzyme act/vol 26 U/L Normal 13-56 [facility] Work Phone: Comment on above: [facility] [address] [place], [place], [address] AST enzyme act/vol 28 U/L Normal 15-37 [facility] Work Phone: Comment on above: [facility] [address] [place], [place], [phone] Bilirubin mass conc 0.50 mg/dL Normal 0.20-1.00 [facility] Internal Medicine Work Phone: Comment on above: [facility] [address] [place], [place], [address] Bilirubin.direct mass conc 0.10 mg/dL Normal 0.00-0.30 [facility] Work Phone: Comment on above: [facility] [address] [place], [place], [address] Globulin Calculated mass conc (S) 3.6 g/dL Normal 2.2-4.2 [facility] Work Phone: Globulin mass conc (S) 3.6 g/dL Normal 2.2-4.2 [facility] Work Phone: Comment on above: [facility] [address] [place], [address] Protein mass conc 7.3 g/dL Normal 6.4-8.2 Compreh ensive Internal Medicine Work Phone: Comment on above: [facility] [address] [place], [place], [address] Lipid ProfileOrdered By: Liam tem Atg Architect on 07-13-2017 Cholesterol in HDL mass conc 51 mg/dL Normal [facility] Work Phone: Comment on above: The drugs N-Acetylcy steine and Metamizole may falselydepress this assay. Reference Range HDL <40 mg/dL Low HDL Cholesterol HDL >or= 60 mg/dL High HDL Cholesterol [facility] [address] [place], [address] Cholesterol in LDL mass conc 56 mg/dL Normal 0-130 [facility] Work Phone: Cholesterol in LDL mass conc 56 mg/dL Normal 0-130 [facility] Work Phone: Comment on above: [facility] [address] [place], [place], [address] Cholesterol in VLDL mass conc 9 mg/dL Normal 5-40 [facility] Work Phone: Comment on above: [facility] [address] [place], [place], [address] Cholesterol mass conc 116 mg/dL Normal Com prehensive [facility] Medicine Work Phone: Comment on above: <200 mg/dL Desirable 200-240 mg/dL Borderline >240 mg/dL High Risk [facility] [address] [place], [place], [address] Triglyceride mass conc 46 mg/dL Normal [facility] Work Phone: Comment on above: The drugs N-Acetylcy steine and Metamizole may falselydepress this assay.Serum Triglycerides Reference Interval Normal <150 mg/dL Borderline high 150 - 199 mg/dL High 200 - 499 mg/dL Very High > or = 500 mg/dL [facility] [address] [place], [place], [address] Lipid Profile 9 mg/dL Normal 5-40 Comprehensi ve Internal Medicine Work Phone: Liver ProfileOrdered By: Liam tem Atg Architect on 07-13-2017 Albumin mass conc 3.7 g/dL Normal 3.2-5.0 Compreh ensive Internal Medicine Work Phone: Comment on above: [facility] [address] [place], [place], [address] ALP enzyme act/vol 245 U/L Abnormal 45-117 Compre hensive [facility] Medicine Work Phone: Comment on above: [facility] [address] [place], [place], [address] ALT enzyme act/vol 133 U/L Abnormal 13-56 Compre hensive [facility] Medicine Work Phone: Comment on above: [facility] [address] [place], [place], [address] AST enzyme act/vol 113 U/L Abnormal 15-37 [facility] Work Phone: Comment on above: [facility] [address] [place], [place], [address] Bilirubin mass conc 0.70 mg/dL Normal 0.20-1.00 Compr ehensive Internal Medicine Work Phone: Comment on above: [facility] [address] [place], [place], [address] Bilirubin.direct mass conc 0.24 mg/dL Normal 0.00-0.30 [facility] Work Phone: Comment on above: [facility] [address] [place], [place], [address] Globulin Calculated mass conc (S) 3.7 g/dL Normal 2.2-4.2 [facility] Work Phone: Globulin mass conc (S) 3.7 g/dL Normal 2.2-4.2 [facility] Work Phone: Comment on above: [facility] [address] [place], [place], [address] Protein mass conc 7.4 g/dL Normal 6.4-8.2 Compreh ensive Internal Medicine Work Phone: Comment on above: [facility] [address] [place], [place], [address] Basic Metabolic Profile (BMP )Ordered By: Materials Handler on 05-30-2017 Basic metabolic 2000 panel 19.0 {RATIO} Normal 10-20 [facility] Work Phone: Comment on above: 'TROP' Serial specim en #1, #2, #3, or #4: [address] [place] [address] [place], [place], [address] Basic metabolic 2000 panel 10 1 Normal 5-15 [facility] Work Phone: Comment on above: 'TROP' Serial specim en #1, #2, #3, or #4: [address] [place] [address] [place], [place], [address] Basic metabolic 2000 panel 106 mmol/L Normal 98-107 [facility] Work Phone: Comment on above: 'TROP' Serial specim en #1, #2, #3, or #4: [address] [place] [address] [place], [place], [phone] Basic metabolic 2000 panel 4.5 mmol/L Normal 3.5-5.1 [facility] Work Phone: Comment on above: 'TROP' Serial specim en #1, #2, #3, or #4: [address] [place] [address] [place], [place], [address] Basic metabolic 2000 panel 140 mmol/L Normal 136-145 [facility] Work Phone: Comment on above: 'TROP' Serial specim en #1, #2, #3, or #4: [address] [place] [address] [place], [place], 831351 Basic metabolic 2000 panel 9.3 mg/dL Normal 8.5-10.1 [facility] Work Phone: Comment on above: 'TROP' Serial specim en #1, #2, #3, or #4: [address] [place] [address] [place], [address] Basic metabolic 2000 panel 24.0 mmol/L Normal 21.0-32.0 [facility] Work Phone: Comment on above: 'TROP' Serial specim en #1, #2, #3, or #4: [address] [place] [address] [place], [place], [phone] Basic metabolic 2000 panel 41.05 ml/min Normal [facility] Work Phone: Comment on above: 'TROP' Serial specim en #1, #2, #3, or #4: [address] [place] [address] [place], [address] Basic metabolic 2000 panel 57 mL/min Abnormal [facility] Work Phone: Comment on above: Non- GFR Calc 'TROP' Serial specim en #1, #2, #3, or #4: [address] [place] [address] [place], [address] Basic metabolic 2000 panel 1.00 mg/dL Normal 0.55-1.02 [facility] Work Phone: Comment on above: The validity of the calculated GFR AND GFRAA in patients over70 years has not been determined. Clinical correlation isessential. 'TROP' Serial specim en #1, #2, #3, or #4: [address] [place] [address] [place], [address] Basic metabolic 2000 panel 109 mg/dL Abnormal 74-106 [facility] Work Phone: Comment on above: Fasting Glucose resu lt from 100 to 125 mg/dLsuggests IMPAIRED HOMEOSTASIS per A.D.A. criteria.Please note revised GLUCOSE reference range blknipmyg22/02/2018. 'TROP' Serial specim en #1, #2, #3, or #4: [address] [place] [address] [place], [place], [address] Basic metabolic 2000 panel 69 mL/min Normal [facility] Work Phone: Comment on above: GFR Calc 'TROP' Serial specim en #1, #2, #3, or #4: [address] [place] [address] [place], [place], [address] Basic metabolic 2000 panel 19 mg/dL Abnormal 7-18 [facility] Work Phone: Comment on above: 'TROP' Serial specim en #1, #2, #3, or #4: [address] [place] [address] [place], [place], [address] CBC W/Diff, AutomatedOrdered By: Materials Handler on 05-30-2017 Absolute Lymph 1.82 {X10_3/ul} Normal 0.83-4.51 Compr ehensive [facility] Medicine Work Phone: Absolute Neut 4.4 {X10_3/uL} Normal 2.0-7.7 Compreh ensive Internal Medicine Work Phone: Comment on above: [facility] [address] [place], [address] Basophils/100 WBC (Bld) 0.4 % Normal 0-1 [facility] Work Phone: Comment on above: [facility] [address] [place], [address] Basophils/100 WBC Auto (Bld) 0.4 % Normal 0-1 [facility] Work Phone: Eosinophils/100 WBC (Bld) 3.0 % Normal 0-5 [facility] Work Phone: Comment on above: [facility] [address] [place], [address] Eosinophils/100 WBC Auto (Bld) 3.0 % Normal 0-5 [facility] Work Phone: Erythrocyte distribution width Auto Ratio (RBC) 12.1 % Normal 11.6-14.6 [facility] Work Phone: Erythrocyte distribution width Ratio (RBC) 12.1 % Normal 11.6-14.6 [facility] Work Phone: Comment on above: [facility] [address] [place], [address] Hematocrit Auto Volume Fraction (Bld) 36.3 % Abnormal 37-47 Comprehens [facility] Work Phone: Hematocrit Volume Fraction (Bld) 36.3 % Abnormal 37-47 [facility] Work Phone: Comment on above: [facility] [address] [place], [address] Hemoglobin mass conc (Bld) 12.4 g/dL Normal 12.0-15.0 [facility] Work Phone: Comment on above: [facility] [address] [place], [address] IM GRAN % 0.100 % Normal 0.0-0.9 [facility] Work Phone: Comment on above: IG% - Immature Granu locytes (promyelocytes, myelocytes andmetamyelocytes) > 1% indicates that a LEFT SHIFT is Present. [facility] [address] [place], [address] Lymphocytes #/vol (Bld) 1.82 {X10_3/ul} Normal 0.83-4.51 [facility] Work Phone: Comment on above: [facility] [address] [place], [address] Lymphocytes/100 WBC (Bld) 26.4 % Normal 19-41 [facility] Work Phone: Comment on above: [facility] [address] [place], [address] Lymphocytes/100 WBC Auto (Bld) 26.4 % Normal 19-41 [facility] Work Phone: MCH Auto Entitic mass (RBC) 32.0 pg Normal 27.0-32.0 [facility] Work Phone: MCH Entitic mass (RBC) 32.0 pg Normal 27.0-32.0 [facility] Work Phone: Comment on above: [facility] [address] [place], [address] MCHC Auto mass conc (RBC) 34.2 {g/gl} Normal 32-36 [facility] Work Phone: MCHC mass conc (RBC) 34.2 {g/gl} Normal 32-36 [facility] prehensive Internal Medicine Work Phone: Comment on above: [facility] [address] [place], [address] MCV Auto Entitic volume (RBC) 93.6 fL Normal 81-99 [facility] Work Phone: MCV Entitic volume (RBC) 93.6 fL Normal 81-99 [facility] Work Phone: Comment on above: [facility] [address] [place], [address] Monocytes/100 WBC Auto (Bld) 6.2 % Normal 0-10 [facility] Work Phone: Comment on above: [facility] [address] [place], [address] Monocytes/100 WBC Auto (Bld) 6.2 % Normal 0-10 [facility] Work Phone: Neutrophils/100 WBC (Bld) 63.9 % Normal 47-70 [facility] Work Phone: Comment on above: [facility] [address] [place], [address] Neutrophils/100 WBC Auto (Bld) 63.9 % Normal 47-70 [facility] Work Phone: Platelet mean volume Auto Entitic volume (Bld) 9.8 fL Normal 6.2-12.0 [facility] Work Phone: Platelet mean volume Entitic volume (Bld) 9.8 fL Normal 6.2-12.0 Comprehensi [facility] Medicine Work Phone: Comment on above: [facility] [address] [place], [address] Platelets #/vol (Bld) 192 10*3/uL Normal 150-450 Co [facility] Internal Medicine Work Phone: Comment on above: [facility] [address] [place], [address] Platelets Auto #/vol (Bld) 192 10*3/uL Normal 150-450 [facility] Work Phone: RBC #/vol (Bld) 3.88 {M/mm3} Abnormal 4.2-5.4 Compreh ensive Internal Medicine Work Phone: Comment on above: [facility] [address] [place], [address] RBC Auto #/vol (Bld) 3.88 {M/mm3} Abnormal 4.2-5.4 [facility] Internal Medicine Work Phone: RDW SD 40.9 fL Normal 35.1-43.9 [facility] Internal Medicine Work Phone: Comment on above: [facility] [address] [place], [address] WBC #/vol (Bld) 6.9 10*3/uL Normal 4.4-11.0 Comprehe nsive Internal Medicine Work Phone: Comment on above: [facility] [address] [place], [address] WBC Auto #/vol (Bld) 6.9 10*3/uL Normal 4.4-11.0 [facility] prehensive Internal Medicine Work Phone: CBC W/Diff, Automated 4.4 {X10_3/uL} Normal 2.0-7.7 [facility] Work Phone: CBC W/Diff, Automated 0.100 % Normal 0.0-0.9 [facility] prehensive Internal Medicine Work Phone: Comment on above: IG% - Immature Granu locytes (promyelocytes, myelocytes andmetamyelocytes) > 1% indicates that a LEFT SHIFT is Present. CBC W/Diff, Automated 40.9 fL Normal 35.1-43.9 [facility] prehensive Internal Medicine Work Phone: CBC W/Diff, Automated 1.82 {X10_3/ul} Normal 0.83-4.51 [facility] Work Phone: Troponin-IOrdered By: Materials Handler on 05-30-2017 Troponin I.cardiac mass conc 0.09 ng/mL Abnormal [facility] Work Phone: Comment on above: TROPONIN-I EXPECTED VALUES <0.05 NEGATIVE 0.06 - 0.59 AT RISK OF DE > OR = 0.60 SUGGEST DE 'TROP' Serial specim en #1, #2, #3, or #4: [address] [place] [address] [place], [address] Troponin I.cardiac mass conc 0.12 ng/mL Abnormal [facility] Work Phone: Comment on above: TROPONIN-I EXPECTED VALUES <0.05 NEGATIVE 0.06 - 0.59 AT RISK OF DE > OR = 0.60 SUGGEST DE Has pt arrived? Y'TR OP' Serial specimen #1, #2, #3, or #4: [address] [place] [address] [place], [address] CBC, Platelets & Auto Diff ( [id number])Ordered By: Materials Handler on 05-21-2017 Basophils #/vol (Bld) 0.1 {x10E3/uL} Normal 0.0-0.2 [facility] Work Phone: Comment on above: PATIENT NOT FASTINGP ERFORMED BY: [place] [id number] [facility] [id number] Basophils Auto #/vol (Bld) 0.1 {x10E3/uL} Normal 0.0-0.2 [facility] Work Phone: Basophils/100 WBC (Bld) 1 % Normal [facility] Work Phone: Comment on above: PATIENT NOT FASTINGP ERFORMED BY: [place] [id number] [facility] [id number] Basophils/100 WBC Auto (Bld) 1 % Normal [facility] Work Phone: Eosinophils #/vol (Bld) 0.2 {x10E3/uL} Normal 0.0-0.4 [facility] Work Phone: Comment on above: PATIENT NOT FASTINGP ERFORMED BY: [address] [id number] Eosinophils Auto #/vol (Bld) 0.2 {x10E3/uL} Normal 0.0-0.4 [facility] Work Phone: Eosinophils/100 WBC (Bld) 2 % Normal [facility] Work Phone: Comment on above: PATIENT NOT FASTINGP ERFORMED BY: [place] [id number] [facility] [id number] Eosinophils/100 WBC Auto (Bld) 2 % Normal [facility] Work Phone: Erythrocyte distribution width Auto Ratio (RBC) 13.2 % Normal 12.3-15.4 [facility] Work Phone: Erythrocyte distribution width Ratio (RBC) 13.2 % Normal 12.3-15.4 [facility] Work Phone: Comment on above: PATIENT NOT FASTINGP ERFORMED BY: [place] [id number] [address] [place] [id number] Hematocrit Auto Volume Fraction (Bld) 37.2 % Normal 34.0-46.6 [facility] Internal Medicine Work Phone: Hematocrit Volume Fraction (Bld) 37.2 % Normal 34.0-46.6 [facility] Work Phone: Comment on above: PATIENT NOT FASTINGP ERFORMED BY: CB [facility] Docibf1202 [address] RoadDublin [place] [id number] Hemoglobin mass conc (Bld) 12.5 g/dL Normal 11.1-15.9 [facility] Work Phone: Comment on above: PATIENT NOT FASTINGP ERFORMED BY: DAYDAY Olena Dangelolin6370 [address] RoadDublin [place] [id number] Immature granulocytes #/vol (Bld) 0.0 {x10E3/uL} Normal 0.0-0.1 [facility] Work Phone: Comment on above: PATIENT NOT FASTINGP ERFORMED BY: [facility] Hwwjrk2391 [address] [place] [id number] Immature granulocytes/100 WBC (Bld) 0 % Normal [facility] Work Phone: Comment on above: PATIENT NOT FASTINGP ERFORMED BY: [facility] Ovadhk9860 [address] Road[address]ublin [place] [id number] Lymphocytes #/vol (Bld) 2.2 {x10E3/uL} Normal 0.7-3.1 [facility] Work Phone: Comment on above: PATIENT NOT FASTINGP ERFORMED BY: [facility] Cizofx4[address]ublin [place] [id number] Lymphocytes Auto #/vol (Bld) 2.2 {x10E3/uL} Normal 0.7-3.1 [facility] Work Phone: Lymphocytes/100 WBC (Bld) 26 % Normal [facility] Work Phone: Comment on above: PATIENT NOT FASTINGP ERFORMED BY: CB [facility] Rqypqq0451 [address] [place] [id number] Lymphocytes/100 WBC Auto (Bld) 26 % Normal [facility] Work Phone: MCH Auto Entitic mass (RBC) 31.7 pg Normal 26.6-33.0 [facility] Work Phone: MCH Entitic mass (RBC) 31.7 pg Normal 26.6-33.0 [facility] Work Phone: Comment on above: PATIENT NOT FASTINGP ERFORMED BY: DAYDAY [place] [id number] [facility] [id number] MCHC Auto mass conc (RBC) 33.6 g/dL Normal 31.5-35.7 [facility] Work Phone: MCHC mass conc (RBC) 33.6 g/dL Normal 31.5-35.7 Comp rehensive Internal Medicine Work Phone: Comment on above: PATIENT NOT FASTINGP ERFORMED BY: DAYDAY [place] [id number] [facility] [id number] MCV Auto Entitic volume (RBC) 94 fL Normal 79-97 [facility] Work Phone: MCV Entitic volume (RBC) 94 fL Normal 79-97 [facility] Work Phone: Comment on above: PATIENT NOT FASTINGP ERFORMED BY: DAYDAY [facility] Rnlodr4385 [facility] [id number] Monocytes #/vol (Bld) 0.6 {x10E3/uL} Normal 0.1-0.9 [facility] Work Phone: Comment on above: PATIENT NOT FASTINGP ERFORMED BY: [facility]6370 [facility] [id number] Monocytes Auto #/vol (Bld) 0.6 {x10E3/uL} Normal 0.1-0.9 [facility] Work Phone: Monocytes/100 WBC (Bld) 7 % Normal [facility] Work Phone: Comment on above: PATIENT NOT FASTINGP ERFORMED BY: [place] [id number] [facility] [id number] Monocytes/100 WBC Auto (Bld) 7 % Normal [facility] Work Phone: Neutrophils #/vol (Bld) 5.3 {x10E3/uL} Normal 1.4-7.0 [facility] Work Phone: Comment on above: PATIENT NOT FASTINGP ERFORMED BY: DAYDAY [place] [id number] [facility] [id number] Neutrophils Auto #/vol (Bld) 5.3 {x10E3/uL} Normal 1.4-7.0 [facility] Work Phone: Neutrophils/100 WBC (Bld) 64 % Normal [facility] Work Phone: Comment on above: PATIENT NOT FASTINGP ERFORMED BY: DAYDAY [facility]Rom[facility] DangeloWkrqyx2928 [facility] [id number] Neutrophils/100 WBC Auto (Bld) 64 % Normal [facility] Work Phone: Platelets #/vol (Bld) 245 {x10E3/uL} Normal 150-379 [facility] Work Phone: Comment on above: PATIENT NOT FASTINGP ERFORMED BY: DAYDAY [place] [id number] [facility] [id number] Platelets Auto #/vol (Bld) 245 {x10E3/uL} Normal 150-379 [facility] Work Phone: RBC #/vol (Bld) 3.94 {x10E6/uL} Normal 3.77-5.28 [facility] Internal Medicine Work Phone: Comment on above: PATIENT NOT FASTINGP ERFORMED BY: [facility]6370 [place] [facility] [id number] RBC Auto #/vol (Bld) 3.94 {x10E6/uL} Normal 3.77-5.28 [facility] Work Phone: WBC #/vol (Bld) 8.3 {x10E3/uL} Normal 3.4-10.8 [facility] Internal Medicine Work Phone: Comment on above: PATIENT NOT FASTINGP ERFORMED BY: CB [facility] Jjaatk5660 [address]ann RoadDublin [place] [id number] WBC Auto #/vol (Bld) 8.3 {x10E3/uL} Normal 3.4-10.8 [facility] Work Phone: Metabolic Panel, Comprehensi ve ([id number])Ordered By: Materials Handler on 05-21-2017 Albumin mass conc 4.4 g/dL Normal 3.5-4.[address] [facility] Internal Medicine Work Phone: Comment on above: PATIENT NOT FASTINGP ERFORMED BY: CB [facility] Udfmjs8845 Vann RoadDublin [place] [id number] Albumin/Globulin mass ratio 1.8 {ratio} Normal 1.2-2.2 [facility] Work Phone: Comment on above: PATIENT NOT FASTINGP ERFORMED BY: CB [facility] Trgftw0650 Vann RoadDublin [place] [id number] ALP enzyme act/vol 71 [iU]/L Normal 39-117 [facility] Work Phone: Comment on above: PATIENT NOT FASTINGP ERFORMED BY: CB [facility] Edqjwm7960 [address] RoadDublin [place] [id number] ALT enzyme act/vol 13 [iU]/L Normal 0-32 [facility] Work Phone: Comment on above: PATIENT NOT FASTINGP ERFORMED BY: CB [facility] Rpulgn7543 [address] RoadDublin [place] [id number] AST enzyme act/vol 22 [iU]/L Normal 0-40 [facility] Internal Medicine Work Phone: Comment on above: PATIENT NOT FASTINGP ERFORMED BY: CB [facility] Rypxdt7877 [address]ann RoadDublin [place] [id number] Bilirubin mass conc 0.4 mg/dL Normal 0.0-1.2 [facility] Internal Medicine Work Phone: Comment on above: PATIENT NOT FASTINGP ERFORMED BY: CB [facility] Ipoits7883 Vann RoadDublin [place] [id number] Calcium mass conc 10.7 mg/dL Abnormal 8.7-10.3 Compreh ensive Internal Medicine Work Phone: Comment on above: PATIENT NOT FASTINGP ERFORMED BY: DAYDAY [facility] Rcsust2241 [address] [facility] [id number] Chloride molar conc 101 mmol/L Normal 96-106 Compr ehensive Internal Medicine Work Phone: Comment on above: PATIENT NOT FASTINGP ERFORMED BY: DAYDAY [facility] Mzugit2582 [address] [facility] [id number] CO2 molar conc 24 mmol/L Normal 18-29 Comprehens [facility] Internal Medicine Work Phone: Comment on above: PATIENT NOT FASTINGP ERFORMED BY: DAYDAY [facility] Taaucg0148 [facility] [id number] Creatinine mass conc 0.96 mg/dL Normal 0.57-1.00 Comp rehensive Internal Medicine Work Phone: Comment on above: PATIENT NOT FASTINGP ERFORMED BY: DAYDAY [facility] Fkymwi3417 [address] [facility] [id number] GFR/1.73 sq M predicted among blacks CKD-EPI vol rate/area (S/P/Bld) 65 mL/min/1.73 Normal Comprehensiv e Internal Medicine Work Phone: Comment on above: PATIENT NOT FASTINGP ERFORMED BY: CB [facility] Ewytuj2475 [address] [facility] [id number] GFR/1.73 sq M predicted among non-blacks CKD-EPI vol rate/area (S/P/Bld) 56 mL/min/1.73 Abnormal [facility] Work Phone: Comment on above: PATIENT NOT FASTINGP ERFORMED BY: CB [facility] Vwpoub7763 [address] [facility] [id number] Globulin Calculated mass conc (S) 2.4 g/dL Normal 1.5-4.5 [facility] Work Phone: Globulin mass conc (S) 2.4 g/dL Normal 1.5-4.5 [facility] Work Phone: Comment on above: PATIENT NOT FASTINGP ERFORMED BY: DAYDAY [facility] Amrmhg2433 [address] RoadDublin [place] [id number] Glucose mass conc 108 mg/dL Abnormal 65-99 Compreh ensive Internal Medicine Work Phone: Comment on above: PATIENT NOT FASTINGP ERFORMED BY: DAYDAY [facility] Lrmbmu8560 [address] RoadDublin [place] [id number] Potassium molar conc 4.5 mmol/L Normal 3.5-5.2 Comp rehensive Internal Medicine Work Phone: Comment on above: PATIENT NOT FASTINGP ERFORMED BY: DAYDAY [facility] Gxevtg0089 Vann RoadDublin [place] [id number] Protein mass conc 6.8 g/dL Normal 6.0-8.5 Compreh ensive Internal Medicine Work Phone: Comment on above: PATIENT NOT FASTINGP ERFORMED BY: DAYDAY [facility] Ekaxsc6113 [address] RoadDublin [place] [id number] Sodium molar conc 140 mmol/L Normal 134-144 Compreh ensive Internal Medicine Work Phone: Comment on above: PATIENT NOT FASTINGP ERFORMED BY: DAYDAY LabRomaine DangeloRxrmgj0631 Vann RoadNovant Health Forsyth Medical Centerin [place] [id number] Urea nitrogen mass conc 18 mg/dL Normal 8-27 [facility] Work Phone: Comment on above: PATIENT NOT FASTINGP ERFORMED BY: DAYDAY LabKarinarp Rtwlcu5540 Vann Roadblin [place] [id number] Urea nitrogen/Creatinine mass ratio 19 mg/mg Normal 12-28 [facility] Work Phone: Comment on above: PATIENT NOT FASTINGP ERFORMED BY: DAYDAY [facility] Vrhmio1851 Vann RoadDublin [place] [id number] TSH ([id number])Ordered By: Ying Cordero on 05-21-2017 Thyrotropin Qn 1.640 {uIU/mL} Normal 0.450-4.50 0 [facility] Work Phone: Comment on above: PATIENT NOT FASTINGP ERFORMED BY: LabRomaine DangeloIpfxhf8153 [facility] [id number] Rapid Flu (20860 x 2)Ordered By: Gianna Pereira on 03-22-2017 FLUAV Ag IA Ql (Throat) Negative Normal [facility] Work Phone: HgA1C , Office ([phone])Ordere d By: Lucinda Colbert on 02-05-2017 Hemoglobin A1c/Hemoglobin.total mass fraction (Bld) 5.3 % Normal 4.6 - 7.1 Comprehensiv e Internal Medicine Work Phone: GANGLIONOrdered By: Dorene cronin on 12-08-2016 GANGLION See Note Normal [facility] Work Phone: Comment on above: Patient: MAXI PARKER : 1935 (81/F) Acct Num: [id number] Phys: Fascione DPM,Patricia Unit Num: [id number] Loc: [facility] [place] Specimen: [id number] Received: 12/08/161448 Spec Type: GANGLION TISSUES TISSUES: GROSS DESCRIPTION Received is one container labeled with the patient name and designated ganglioncyst left foot (proximal tag). The specimen consists of one irregular piece oftan soft tissue that measures 7 x 1 x 0.7 cm. A suture is noted and identified as proximal portion. The proximal end is inked black. The sections reveal a focal cystic area. Box Car Checker sections are submitted in one cassette. /SJ:jeremy12/08/16 TC: 5 CPT: 88679 HEADER OPERATION: Excision ganglion cyst, foot PRE-OP DIAGNOSIS: Ganglion cyst, left foot TISSUE SUBMITTED: Ganglion cyst, left foot (proximal tag) MICROSCOPIC DESCRIPTION Slides are reviewed. MICROSCOPIC DIAGNOSIS Soft tissue left foot, excision: Consistent with ganglion cyst. AM:jeremy 12/11/16 Signed Hussein Stephani 12/11/16 [facility] [address] [place], [place], [id number] CBC W/Diff, AutomatedOrdered By: Materials Handler on 12-02-2016 Absolute Lymph 1.87 {X10_3/ul} Normal 0.83-4.51 Compr ehensive Internal Medicine Work Phone: Absolute Neut 3.3 {X10_3/uL} Normal 2.0-7.7 Compreh ensive Internal Medicine Work Phone: Comment on above: [facility] [address] [place], [address] Basophils/100 WBC (Bld) 0.5 % Normal 0-1 [facility] Work Phone: Comment on above: [facility] [address] [place], [address] Basophils/100 WBC Auto (Bld) 0.5 % Normal 0-1 [facility] Work Phone: Eosinophils/100 WBC (Bld) 3.7 % Normal 0-5 [facility] Work Phone: Comment on above: [facility] [address] [place], [address] Eosinophils/100 WBC Auto (Bld) 3.7 % Normal 0-5 [facility] Work Phone: Erythrocyte distribution width Auto Ratio (RBC) 11.9 % Normal 11.6-14.6 [facility] Work Phone: Erythrocyte distribution width Ratio (RBC) 11.9 % Normal 11.6-14.6 [facility] Work Phone: Comment on above: [facility] [address] [place], [address] Hematocrit Auto Volume Fraction (Bld) 36.4 % Abnormal 37-47 Com[facility] Internal [facility] Work Phone: Hematocrit Volume Fraction (Bld) 36.4 % Abnormal 37-47 [facility] Work Phone: Comment on above: [facility] [address] [place], [phone]) Hemoglobin mass conc (Bld) 12.4 g/dL Normal 12.0-15.0 [facility] Work Phone: Comment on above: [facility] [address] [place], [place], [address] IM GRAN % 0.000 % Normal 0.0-0.9 [facility] Work Phone: Comment on above: IG% - Immature Granu locytes (promyelocytes, myelocytes andmetamyelocytes) > 1% indicates that a LEFT SHIFT is Present. [facility] [address] [place], [place], [phone] Lymphocytes #/vol (Bld) 1.87 {X10_3/ul} Normal 0.83-4.51 [facility] Work Phone: Comment on above: [facility] [address] [place], [address] Lymphocytes/100 WBC (Bld) 31.3 % Normal 19-41 [facility] Work Phone: Comment on above: [facility] [address] [place], [address] Lymphocytes/100 WBC Auto (Bld) 31.3 % Normal 19-41 [facility] Work Phone: MCH Auto Entitic mass (RBC) 31.8 pg Normal 27.0-32.0 [facility] Work Phone: MCH Entitic mass (RBC) 31.8 pg Normal 27.0-32.0 [facility] Work Phone: Comment on above: [facility] [address] [place], [place], [id number] MCHC Auto mass conc (RBC) 34.1 {g/gl} Normal 32-36 [facility] Work Phone: MCHC mass conc (RBC) 34.1 {g/gl} Normal 32-36 [facility] prehensive Internal Medicine Work Phone: Comment on above: [facility] [address] [place], [address] MCV Auto Entitic volume (RBC) 93.3 fL Normal 81-99 [facility] Work Phone: MCV Entitic volume (RBC) 93.3 fL Normal 81-99 [facility] Work Phone: Comment on above: [facility] [address] [place], [address] Monocytes/100 WBC Auto (Bld) 8.7 % Normal 0-10 [facility] Work Phone: Comment on above: [facility] [address] [place], [address] Monocytes/100 WBC Auto (Bld) 8.7 % Normal 0-10 [facility] Work Phone: Neutrophils/100 WBC (Bld) 55.8 % Normal 47-70 [facility] Work Phone: Comment on above: [facility] [address] [place], [address] Neutrophils/100 WBC Auto (Bld) 55.8 % Normal 47-70 [facility] Work Phone: Platelet mean volume Auto Entitic volume (Bld) 9.5 fL Normal 6.2-12.0 [facility] Work Phone: Platelet mean volume Entitic volume (Bld) 9.5 fL Normal 6.2-12.0 Comprehensi Internal Medicine Work Phone: Comment on above: [facility] [address] [place], [address] Platelets #/vol (Bld) 217 10*3/uL Normal 150-450 [facility] Internal [facility] Work Phone: Comment on above: [facility] [address] [place], [address] Platelets Auto #/vol (Bld) 217 10*3/uL Normal 150-450 [facility] Work Phone: RBC #/vol (Bld) 3.90 {M/mm3} Abnormal 4.2-5.4 Compreh ensive Internal Medicine Work Phone: Comment on above: [facility] [address] [place], [address] RBC Auto #/vol (Bld) 3.90 {M/mm3} Abnormal 4.2-5.4 Co [facility] Internal [facility] Work Phone: RDW SD 40.2 fL Normal 35.1-43.9 [facility] Work Phone: Comment on above: [facility] [address] [place], [address] WBC #/vol (Bld) 6.0 10*3/uL Normal 4.4-11.0 [facility]prehe [facility] Internal Medicine Work Phone: Comment on above: [facility] [address] [place], [address] WBC Auto #/vol (Bld) 6.0 10*3/uL Normal 4.4-11.0 [facility] prehensive Internal Medicine Work Phone: CBC W/Diff, Automated 3.3 {X10_3/uL} Normal 2.0-7.7 [facility] Work Phone: CBC W/Diff, Automated 0.000 % Normal 0.0-0.9 [facility] prehensive Internal Medicine Work Phone: Comment on above: IG% - Immature Granu locytes (promyelocytes, myelocytes andmetamyelocytes) > 1% indicates that a LEFT SHIFT is Present. CBC W/Diff, Automated 40.2 fL Normal 35.1-43.9 [facility] prehensive Internal Medicine Work Phone: CBC W/Diff, Automated 1.87 {X10_3/ul} Normal 0.83-4.51 [facility] Work Phone: Comprehensive Metabolic Prof ilOrdered By: Materials Handler on 12-02-2016 Comprehensive metabolic 2000 panel 1.19 mg/dL Abnormal 0.55-1.02 Comprehensi ve Internal Medicine Work Phone: Comment on above: The validity of the calculated GFR AND GFRAA in patients over70 years has not been determined. Clinical correlation isessential. [facility] [address] [place], [place], [address] Comprehensive metabolic 2000 panel 17 mg/dL Normal 7-18 Comprehensi ve Internal Medicine Work Phone: Comment on above: [facility] [address] [place], [place], [address] Comprehensive metabolic 2000 panel 0.50 mg/dL Normal 0.20-1.00 Comprehensi ve Internal Medicine Work Phone: Comment on above: [facility] [address] [place], [place], [address] Comprehensive metabolic 2000 panel 71 U/L Normal 45-117 Comprehensi ve Internal Medicine Work Phone: Comment on above: [facility] [address] [place], [place], [address] Comprehensive metabolic 2000 panel 26 U/L Normal 15-37 Comprehensi ve Internal Medicine Work Phone: Comment on above: [facility] [address] [place], [place], [address] Comprehensive metabolic 2000 panel 4.3 mmol/L Normal 3.5-5.1 Comprehensi ve Internal Medicine Work Phone: Comment on above: [facility] [address] [place], [place], [address] Comprehensive metabolic 2000 panel 99 mg/dL Normal 70-110 Comprehensi ve Internal Medicine Work Phone: Comment on above: [facility] [address] [place], [place], [address] Comprehensive metabolic 2000 panel 106 mmol/L Normal 98-107 Comprehensi ve Internal Medicine Work Phone: Comment on above: [facility] [address] [place], [place], [address] Comprehensive metabolic 2000 panel 9.2 mg/dL Normal 8.5-10.1 Comprehensi ve Internal Medicine Work Phone: Comment on above: [facility] [address] [place], [place], [address] Comprehensive metabolic 2000 panel 1.0 {RATIO} Normal 0.9-2.4 Comprehensi ve Internal Medicine Work Phone: Comment on above: [facility] [address] [place], [place], [address] Comprehensive metabolic 2000 panel 3.7 g/dL Abnormal 2.3-3.5 Comprehensi ve Internal Medicine Work Phone: Comment on above: [facility] [address] [place], [place], [address] Comprehensive metabolic 2000 panel 8 1 Normal 5-15 Comprehensi ve Internal Medicine Work Phone: Comment on above: [facility] [address] [place], [place], [address] Comprehensive metabolic 2000 panel 3.8 g/dL Normal 3.4-5.0 Comprehensi ve Internal Medicine Work Phone: Comment on above: [facility] [address] [place], [place], [address] Comprehensive metabolic 2000 panel 140 mmol/L Normal 136-145 Comprehensi ve Internal Medicine Work Phone: Comment on above: [facility] [address] [place], [place], [address] Comprehensive metabolic 2000 panel 7.5 g/dL Normal 6.4-8.2 Comprehensi ve Internal Medicine Work Phone: Comment on above: [facility] [address] [place], [place], [address] Comprehensive metabolic 2000 panel 14.3 {RATIO} Normal 10-20 Comprehensi ve Internal Medicine Work Phone: Comment on above: [facility] [address] [place], [place], [address] Comprehensive metabolic 2000 panel 56 mL/min Abnormal Comprehensi ve Internal Medicine Work Phone: Comment on above: GFR Calc [facility] [address] [place], [place], [address] Comprehensive metabolic 2000 panel 26.0 mmol/L Normal 21.0-32.0 Comprehensi ve Internal Medicine Work Phone: Comment on above: [facility] [address] [place], [place], [address] Comprehensive metabolic 2000 panel 25 U/L Normal 12-78 Comprehensi ve Internal Medicine Work Phone: Comment on above: [facility] [address] [place], [place], [address] Comprehensive metabolic 2000 panel 47 mL/min Abnormal Comprehensi ve Internal Medicine Work Phone: Comment on above: Non- GFR Calc [facility] [address] [place], [place], [address] RENAL FUNCTION PANEL (55497) Ordered By: Materials Handler on 10-13-2016 Albumin mass conc 4.1 g/dL Normal 3.5-4.8 Compreh ensive Internal Medicine Work Phone: Comment on above: PATIENT WAS FASTINGP ERFORMED BY: DAYDAY [facility] Adhrrf7101 [facility] [id number] Calcium mass conc 9.4 mg/dL Normal 8.7-10.3 Compreh ensive Internal Medicine Work Phone: Comment on above: PATIENT WAS FASTINGP ERFORMED BY: [facility] Ayueba2897 [facility] [id number] Chloride molar conc 105 mmol/L Normal 96-106 Compr ehensive Internal Medicine Work Phone: Comment on above: PATIENT WAS FASTINGP ERFORMED BY: CB [facility] Xjgwsc2740 [address] RoadDublin [place] [id number] CO2 molar conc 23 mmol/L Normal 18-29 Comprehens [facility] Internal Medicine Work Phone: Comment on above: PATIENT WAS FASTINGP ERFORMED BY: CB [facility] Rgexfv9200 Vann RoadDublin [place] [id number] Creatinine mass conc 1.11 mg/dL Abnormal 0.57-1.00 Comp [facility] Work Phone: Comment on above: PATIENT WAS FASTINGP ERFORMED BY: CB [facility] Cnumbk7230 Vann RoadDublin [place] [id number] GFR/1.73 sq M predicted among blacks CKD-EPI vol rate/area (S/P/Bld) 55 mL/min/1.73 Abnormal Comprehensiv e Internal Medicine Work Phone: Comment on above: PATIENT WAS FASTINGP ERFORMED BY: DAYDAY [facility] Tiqjrb8672 Vann RoadDublin [place] [id number] GFR/1.73 sq M predicted among non-blacks CKD-EPI vol rate/area (S/P/Bld) 47 mL/min/1.73 Abnormal [facility] Work Phone: Comment on above: PATIENT WAS FASTINGP ERFORMED BY: DAYDAY [facility] Xwyjet9204 Vann RoadDublin [place] [id number] Glucose mass conc 93 mg/dL Normal 65-99 Compreh ensive Internal Medicine Work Phone: Comment on above: PATIENT WAS FASTINGP ERFORMED BY: CB [facility] Rgclab5637 [address] RoadDublin [place] [id number] Phosphate mass conc 3.4 mg/dL Normal 2.5-4.5 Compr ensive Internal Medicine Work Phone: Comment on above: PATIENT WAS FASTINGP ERFORMED BY: CB [facility] Wtcokg6967 Vann RoadDublin [place] [id number] Potassium molar conc 4.9 mmol/L Normal 3.5-5.2 Comp rehensive Internal Medicine Work Phone: Comment on above: PATIENT WAS FASTINGP ERFORMED BY: [facility] Advnht0284 [facility] [id number] Sodium molar conc 143 mmol/L Normal 134-144 Compreh ensive Internal Medicine Work Phone: Comment on above: PATIENT WAS FASTINGP ERFORMED BY: [facility] Kucvld3972 [facility] [id number] Urea nitrogen mass conc 21 mg/dL Normal 8-27 [facility] Work Phone: Comment on above: PATIENT WAS FASTINGP ERFORMED BY: [facility] Yrndxx2347 [facility] [id number] Urea nitrogen/Creatinine mass ratio 19 mg/mg Normal 12- [facility] Work Phone: Comment on above: PATIENT WAS FASTINGP ERFORMED BY: [facility] Xemdmo3954 [facility] [id number] (821 05)Ordered By: Materials Handler on 10-05-2016 AFP.tumor marker mass conc 5.3 ng/mL Normal 0.0-8.3 [facility] Work Phone: Comment on above: Leslie ECLIA methodol ogy PATIENT WAS FASTINGP ERFORMED BY: [facility] Rfcfyy7633 [facility] [id number] BY: [address] [id number] Blood Glucose , Office (8296 2)Ordered By: Rox Huerta on 10-05-2016 Glucose Glucometer molar conc (BldC) 115 1 Normal [facility] Work Phone: CALCIFEDIOL ([id number])Ordered B y: Materials Handler on 10-05-2016 25-Hydroxyvitamin D2+25-Hydroxyvitamin D3 mass conc 54.9 ng/mL Normal 30.0-100.0 [facility] Work Phone: Comment on above: Vitamin D deficiency has been defined by the [place] of[place]icine and an Endocrine Society practice guideline as alevel of serum 25-OH vitamin D less than 20 ng/mL (1,2).The Endocrine Society went on to further define vitamin Dinsufficiency as a level between 21 and 29 ng/mL (2).1. IOM ([place] of Medicine). 2010. Dietary reference intakes for calcium and D. [place]: The National Academies Press.2. Trevon MF, Sherrell JEFFERSON, Treva CORLEY, et al. Evaluation, treatment, and prevention of vitamin D deficiency: an Endocrine Society clinical practice guideline. JCEM. 2010; 96(7):1911-30. PATIENT WAS FASTINGP ERFORMED BY: Border Stylolin6370 [facility] [id number] BY: PEMRED [address] [id number] CBC with auto diff (79272)Or dered By: Materials Handler on 10-05-2016 Basophils #/vol (Bld) 0.0 {x10E3/uL} Normal 0.0-0.2 [facility] Work Phone: Comment on above: PATIENT WAS FASTINGP ERFORMED BY: Border Stylolin6370 [facility] [id number] BY: PEMRED [address] [id number] Basophils Auto #/vol (Bld) 0.0 {x10E3/uL} Normal 0.0-0.2 [facility] Work Phone: Basophils/100 WBC (Bld) 0 % Normal [facility] Work Phone: Comment on above: PATIENT WAS FASTINGP ERFORMED BY: [employer] Qpjtkb5196 [facility] [id number] BY: [employer] [address] [id number] Basophils/100 WBC Auto (Bld) 0 % Normal [facility] Work Phone: Eosinophils #/vol (Bld) 0.2 {x10E3/uL} Normal 0.0-0.4 [facility] Work Phone: Comment on above: PATIENT WAS FASTINGP ERFORMED BY: CB [employer]70 [facility] [id number] BY: [employer] [id number] Eosinophils Auto #/vol (Bld) 0.2 {x10E3/uL} Normal 0.0-0.4 [facility] Work Phone: Eosinophils/100 WBC (Bld) 3 % Normal [facility] Work Phone: Comment on above: PATIENT WAS FASTINGP ERFORMED BY: DAYDAY Mir Vrachalin6370 [facility] [id number] BY: [employer] [id number] Eosinophils/100 WBC Auto (Bld) 3 % Normal [facility] Work Phone: Erythrocyte distribution width Auto Ratio (RBC) 13.0 % Normal 12.3-15.4 [facility] Work Phone: Erythrocyte distribution width Ratio (RBC) 13.0 % Normal 12.3-15.4 [facility] Work Phone: Comment on above: PATIENT WAS FASTINGP ERFORMED BY: DAYDAY [employer]70 [facility] [id number] BY: [employer] [id number] Hematocrit Auto Volume Fraction (Bld) 36.9 % Normal 34.0-46.6 [facility] Internal Medicine Work Phone: Hematocrit Volume Fraction (Bld) 36.9 % Normal 34.0-46.6 [facility] Work Phone: Comment on above: PATIENT WAS FASTINGP ERFORMED BY: [employer]70 [facility] [id number] BY: [employer] [id number] Hemoglobin mass conc (Bld) 12.4 g/dL Normal 11.1-15.9 [facility] Work Phone: Comment on above: PATIENT WAS FASTINGP ERFORMED BY: DAYDAY [facility] Swgpxo9192 [facility] [id number] BY: [address] [id number] Immature granulocytes #/vol (Bld) 0.0 {x10E3/uL} Normal 0.0-0.1 [facility] Work Phone: Comment on above: PATIENT WAS FASTINGP ERFORMED BY: DAYDAY [facility] Mvdvwd6260 [facility] [id number] BY: [address] [id number] Immature granulocytes/100 WBC (Bld) 0 % Normal [facility] Work Phone: Comment on above: PATIENT WAS FASTINGP ERFORMED BY: DAYDAY [employer] Kjbvnx6100 [facility] [id number] BY: [address] [id number] Lymphocytes #/vol (Bld) 1.8 {x10E3/uL} Normal 0.7-3.1 [facility] Work Phone: Comment on above: PATIENT WAS FASTINGP ERFORMED BY: DAYDAY LabCoPalisades Medical CenterWwotys5642 [facility] [id number] BY: [address] [id number] Lymphocytes Auto #/vol (Bld) 1.8 {x10E3/uL} Normal 0.7-3.1 [facility] Work Phone: Lymphocytes/100 WBC (Bld) 25 % Normal [facility] Work Phone: Comment on above: PATIENT WAS FASTINGP ERFORMED BY: DAYDAY [facility] Ogxqah3928 [facility] [id number] BY: [address] [id number] Lymphocytes/100 WBC Auto (Bld) 25 % Normal [facility] Work Phone: MCH Auto Entitic mass (RBC) 30.8 pg Normal 26.6-33.0 [facility] Work Phone: MCH Entitic mass (RBC) 30.8 pg Normal 26.6-33.0 [facility] Work Phone: Comment on above: PATIENT WAS FASTINGP ERFORMED BY: Gigit[address] [id number] BY: [address] [id number] MCHC Auto mass conc (RBC) 33.6 g/dL Normal 31.5-35.7 [facility] Work Phone: MCHC mass conc (RBC) 33.6 g/dL Normal 31.5-35.7 [facility] Internal Medicine Work Phone: Comment on above: PATIENT WAS FASTINGP ERFORMED BY: Gigit[address] [id number] BY: [address] [id number] MCV Auto Entitic volume (RBC) 92 fL Normal 79-97 [facility] Work Phone: MCV Entitic volume (RBC) 92 fL Normal 79-97 [facility] Work Phone: Comment on above: PATIENT WAS FASTINGP ERFORMED BY: Gigit[address] [id number] BY: [address] [id number] Monocytes #/vol (Bld) 0.6 {x10E3/uL} Normal 0.1-0.9 [facility] Work Phone: Comment on above: PATIENT WAS FASTINGP ERFORMED BY: [facility] CenterHypeSpark[address] [id number] BY: [address] [id number] Monocytes Auto #/vol (Bld) 0.6 {x10E3/uL} Normal 0.1-0.9 [facility] Work Phone: Monocytes/100 WBC (Bld) 8 % Normal [facility] Work Phone: Comment on above: PATIENT WAS FASTINGP ERFORMED BY: [employer] Hjwysj1175 [facility] [id number] BY: Gigit[address] [id number] Monocytes/100 WBC Auto (Bld) 8 % Normal [facility] Work Phone: Neutrophils #/vol (Bld) 4.6 {x10E3/uL} Normal 1.4-7.0 [facility] Work Phone: Comment on above: PATIENT WAS FASTINGP ERFORMED BY: Border Stylo[address] [id number] BY: Gigit[address] [id number] Neutrophils Auto #/vol (Bld) 4.6 {x10E3/uL} Normal 1.4-7.0 [facility] Work Phone: Neutrophils/100 WBC (Bld) 64 % Normal [facility] Work Phone: Comment on above: PATIENT WAS FASTINGP ERFORMED BY: Border Stylo[address] [id number] BY: Gigit[address] [id number] Neutrophils/100 WBC Auto (Bld) 64 % Normal [facility] Work Phone: Platelets #/vol (Bld) 256 {x10E3/uL} Normal 150-379 [facility] Work Phone: Comment on above: PATIENT WAS FASTINGP ERFORMED BY: [employer] [id number] BY: [address] [id number] Platelets Auto #/vol (Bld) 256 {x10E3/uL} Normal 150-379 [facility] Work Phone: RBC #/vol (Bld) 4.03 {x10E6/uL} Normal 3.77-5.28 [facility] Work Phone: Comment on above: PATIENT WAS FASTINGP ERFORMED BY: [employer]70 [facility] InformaticsCarolinaEast [facility] Center [id number] BY: [employer] [id number] RBC Auto #/vol (Bld) 4.03 {x10E6/uL} Normal 3.77-5.28 [facility] Work Phone: WBC #/vol (Bld) 7.2 {x10E3/uL} Normal 3.4-10.8 [facility] Work Phone: Comment on above: PATIENT WAS FASTINGP ERFORMED BY: ClassiphixCarolinaEast Medical Center [id number] BY: [employer] [id number] WBC Auto #/vol (Bld) 7.2 {x10E3/uL} Normal 3.4-10.8 [facility] Work Phone: FOLIC ACID SERUM (38258)Orde red By: Materials Handler on 10-05-2016 Folate mass conc ng/mL Normal Comprehe nsive Internal Medicine Work Phone: Comment on above: A serum folate juany ntration of less than 3.1 ng/mL isconsidered to represent clinical deficiency. PATIENT WAS FASTINGP ERFORMED BY: [employer]70 Health InformaticsCarolinaEast [facility] Center [id number] BY: [employer] [id number] HgA1C , Office (90016)Ordere d By: Rox Huerta on 10-05-2016 Hemoglobin A1c/Hemoglobin.total mass fraction (Bld) 5.3 % Normal 4.6 - 7.1 Comprehensiv e Internal Medicine Work Phone: LIPID PANEL (77359)Ordered B y: Materials Handler on 10-05-2016 Cholesterol in HDL mass conc 61 mg/dL Normal [facility] Work Phone: Comment on above: PATIENT WAS FASTINGP ERFORMED BY: CB [facility] Yeavnx3304 Vann RoadDublin [place] [id number] BY: LabCo[address] [id number] Cholesterol in LDL mass conc 155 mg/dL Abnormal 0-99 [facility] Work Phone: Comment on above: PATIENT WAS FASTINGP ERFORMED BY: CB [facility] Ghrpxn0183 Vann RoadDublin [place] [id number] BY: LabCo[address] [id number] Cholesterol in LDL/Cholesterol in HDL mass ratio 2.5 {ratio_units} Normal 0.0-3.2 [facility] Work Phone: Comment on above: LDL/HDL Ratio Men Wo men 1/2 Avg.Risk 1.0 1.5 Avg.Risk 3.6 3.2 2X Avg.Risk 6.2 5.0 3X Avg.Risk 8.0 6.1 PATIENT WAS FASTINGP ERFORMED BY: CB [facility] Qyfhlh9730 [address] [facility]in [place] [id number] BY: LabCo[address] [id number] Cholesterol in VLDL mass conc 18 mg/dL Normal 5-40 [facility] Work Phone: Comment on above: PATIENT WAS FASTINGP ERFORMED BY: CB [facility] Aaioja4620 Vann RoadDublin [place] [id number] BY: [facility] [address] [id number] Cholesterol mass conc 234 mg/dL Abnormal 100-199 [facility] prehensive Internal Medicine Work Phone: Comment on above: PATIENT WAS FASTINGP ERFORMED BY: CB [facility] Jdqtsu5064 Vann RoadDublin [place] [id number] BY: Lab[address] [id number] Triglyceride mass conc 89 mg/dL Normal 0-149 [facility] Work Phone: Comment on above: PATIENT WAS FASTINGP ERFORMED BY: DAYDAY [facility] Xnobis2312 [address] [facility]in [place] [id number] BY: [address] [id number] METABOLIC PANEL, COMPREHENSI VE (44526)Ordered By: Materials Handler on 10-05-2016 Albumin mass conc 4.5 g/dL Normal 3.5-4.[address] [facility] Internal Medicine Work Phone: Comment on above: PATIENT WAS FASTINGP ERFORMED BY: DAYDAY [facility] Tuvmam4310 [facility] [id number] BY: [address] [id number] Albumin/Globulin mass ratio 1.6 {ratio} Normal 1.2-2.2 [facility] Work Phone: Comment on above: PATIENT WAS FASTINGP ERFORMED BY: DAYDAY [facility] Rxlexw1233 [facility] [id number] BY: Lab[address] [id number] ALP enzyme act/vol 66 [iU]/L Normal 39-117 [facility] Work Phone: Comment on above: PATIENT WAS FASTINGP ERFORMED BY: CB [facility] Szpthm0430 [facility] [id number] BY: Lab[address] [id number] ALT enzyme act/vol 19 [iU]/L Normal 0-32 [facility] Work Phone: Comment on above: PATIENT WAS FASTINGP ERFORMED BY: CB [facility] Ynqejv6510 [facility] [id number] BY: Lab[address] [id number] AST enzyme act/vol 32 [iU]/L Normal 0-40 Compre hensive Internal Medicine Work Phone: Comment on above: PATIENT WAS FASTINGP ERFORMED BY: DAYDAY [facility] Yowvwm1763 [address] [facility] [id number] BY: LabCo[address] [id number] Bilirubin mass conc 0.6 mg/dL Normal 0.0-1.2 Compr ehensive Internal Medicine Work Phone: Comment on above: PATIENT WAS FASTINGP ERFORMED BY: DAYDAY [facility] Tcoyre8273 [address] [facility] [id number] BY: LabCo[address] [id number] Calcium mass conc 10.3 mg/dL Normal 8.7-10.3 Compreh ensive Internal Medicine Work Phone: Comment on above: PATIENT WAS FASTINGP ERFORMED BY: DAYDAY [facility] Veptrr4811 [facility] [id number] BY: LabCo[address] [id number] Chloride molar conc 99 mmol/L Normal 96-106 Compr ensive Internal Medicine Work Phone: Comment on above: PATIENT WAS FASTINGP ERFORMED BY: DAYDAY [facility] Ceacgt2910 [facility] [id number] BY: LabCo[address] [id number] CO2 molar conc 22 mmol/L Normal 18-29 Comprehens [facility] Internal Medicine Work Phone: Comment on above: PATIENT WAS FASTINGP ERFORMED BY: CB [facility] Sbdcye3328 [address] [facility] [id number] BY: Lab[address] [id number] Creatinine mass conc 1.03 mg/dL Abnormal 0.57-1.00 Comp rehensive Internal Medicine Work Phone: Comment on above: PATIENT WAS FASTINGP ERFORMED BY: [facility] Tabnpg8833 [facility] [id number] BY: [address] [id number] GFR/1.73 sq M predicted among blacks CKD-EPI vol rate/area (S/P/Bld) 60 mL/min/1.73 Normal Comprehensiv e Internal Medicine Work Phone: Comment on above: PATIENT WAS FASTINGP ERFORMED BY: [facility] Frgxzp1244 [facility] [id number] BY: [address] [id number] GFR/1.73 sq M predicted among non-blacks CKD-EPI vol rate/area (S/P/Bld) 52 mL/min/1.73 Abnormal [facility] Work Phone: Comment on above: PATIENT WAS FASTINGP ERFORMED BY: [facility] Mzogsa0749 [facility] [id number] BY: [address] [id number] Globulin Calculated mass conc (S) 2.8 g/dL Normal 1.5-4.5 [facility] Work Phone: Globulin mass conc (S) 2.8 g/dL Normal 1.5-4.5 [facility] Work Phone: Comment on above: PATIENT WAS FASTINGP ERFORMED BY: [facility] Jlzoid4877 [facility] [id number] BY: Lab[address] [id number] Glucose mass conc 91 mg/dL Normal 65-99 Compreh ensive Internal Medicine Work Phone: Comment on above: PATIENT WAS FASTINGP ERFORMED BY: [facility] Aloihw6227 [facility] [id number] BY: [address] [id number] Potassium molar conc 5.3 mmol/L Abnormal 3.5-5.2 Comp rehensive Internal Medicine Work Phone: Comment on above: PATIENT WAS FASTINGP ERFORMED BY: DAYDAY [facility] Pptkdu8446 [address] [facility] [id number] BY: LabCo[address] [id number] Protein mass conc 7.3 g/dL Normal 6.0-8.5 Compreh ensive Internal Medicine Work Phone: Comment on above: PATIENT WAS FASTINGP ERFORMED BY: CB [facility] Mwoucp5987 [address] [facility] [id number] BY: LabCo[address] [id number] Sodium molar conc 138 mmol/L Normal 134-144 Compreh ensive Internal Medicine Work Phone: Comment on above: PATIENT WAS FASTINGP ERFORMED BY: CB [facility] Stuuqc8443 [address] [facility] [id number] BY: LabCo[address] [id number] Urea nitrogen mass conc 17 mg/dL Normal 8-27 [facility] Work Phone: Comment on above: PATIENT WAS FASTINGP ERFORMED BY: CB [facility] Mnmdrx4133 [address] [facility] [id number] BY: LabCo[address] [id number] Urea nitrogen/Creatinine mass ratio 17 mg/mg Normal 12-28 [facility] Work Phone: Comment on above: PATIENT WAS FASTINGP ERFORMED BY: CB [facility] Jucwji1863 [address] [facility] [place] [id number] BY: Lab[address] [id number] MICROALBUMINOrdered By: Syst em Atg Architect on 10-05-2016 Albumin DL <= 20 mg/L mass conc (U) 3.5 ug/mL Normal [facility] Work Phone: Comment on above: PATIENT WAS FASTINGP ERFORMED BY: [facility] Jylygh5667 [address] [facility] [id number] BY: [address] [id number] Albumin/Creatinine mass ratio (U) 12.1 {mg/g_creat} Normal 0.0-30.0 [facility] Work Phone: Comment on above: PATIENT WAS FASTINGP ERFORMED BY: CB [facility] Bcgumw3702 [facility] [id number] BY: [address] [id number] Creatinine mass conc (U) 28.9 mg/dL Normal [facility] Work Phone: Comment on above: PATIENT WAS FASTINGP ERFORMED BY: [facility] Nmydpb0664 [facility] [id number] BY: [address] [id number] Methymalonic Acid, Serum (83 921)Ordered By: Materials Handler on 10-05-2016 Methylmalonate molar conc 291 nmol/L Normal 0-378 [facility] Work Phone: Comment on above: PATIENT WAS FASTINGP ERFORMED BY: [facility] Ldopcp5180 [facility] [id number] BY: [address] [id number] Microscopic ExaminationOrder ed By: Materials Handler on 10-05-2016 Bacteria LM.HPF #/area (Urine sed) None seen Normal [facility] Work Phone: Comment on above: PATIENT WAS FASTINGP ERFORMED BY: CB [facility] Pijvrm6101 [address] [facility] [id number] BY: [address] [id number] Epithelial cells LM.HPF #/area (Urine sed) None seen Normal 0 - 10 [facility] Work Phone: Comment on above: PATIENT WAS FASTINGP ERFORMED BY: [facility] Edbylt1824 [facility] [id number] BY: [address] [id number] Mucus LM Ql (Urine sed) Present Normal [facility] Work Phone: Mucus Ql (Urine sed) Present Normal Comp rehensive Internal Medicine Work Phone: Comment on above: PATIENT WAS FASTINGP ERFORMED BY: [facility] Lrtzru6572 [facility] [id number] BY: [address] [id number] RBC LM.HPF #/area (Urine sed) 0-2 Normal 0 - 2 [facility] Work Phone: Comment on above: PATIENT WAS FASTINGP ERFORMED BY: LabHypeSpark Dqpoxv5657 [facility] [id number] BY: [address] [id number] WBC LM.HPF #/area (Urine sed) /[HPF] Abnormal 0 - 5 [facility] Work Phone: Comment on above: PATIENT WAS FASTINGP ERFORMED BY: [facility] Uszwnl4279 [facility] [id number] BY: [address] [id number] TSH (94929)Ordered By: Syste m Atg Architect on 10-05-2016 Thyrotropin Qn 3.320 {uIU/mL} Normal 0.450-4.50 0 [facility] Work Phone: Comment on above: PATIENT WAS FASTINGP ERFORMED BY: [facility] Hjqnke5573 [facility] [id number] BY: [address] [id number] URINALYSIS, W/ MICRO ([id number]) Ordered By: Materials Handler on 10-05-2016 Appearance Nom (U) Clear Normal Compre hensive Internal Medicine Work Phone: Comment on above: PATIENT WAS FASTINGP ERFORMED BY: DAYDAY [facility] Refoxr1906 Vann RoadDublin [place] [id number] BY: [facility] [address] [id number] Bilirubin Ql (U) Negative Normal Comprehe nsive Internal Medicine Work Phone: Comment on above: PATIENT WAS FASTINGP ERFORMED BY: CB [facility] Fncajy7810 V[address] RoadDublin [place] [id number] BY: [facility] [address] [id number] Color Nom (U) Yellow Normal Comprehensi ve Internal Medicine Work Phone: Comment on above: PATIENT WAS FASTINGP ERFORMED BY: DAYDAY [facility] Qbvrcs8614 Vann RoadDublin [place] [id number] BY: [facility] [address] [id number] Glucose Ql (U) Negative Normal Comprehens [facility] Work Phone: Comment on above: PATIENT WAS FASTINGP ERFORMED BY: DAYDAY [facility] Dbmoks4670 [address]ann RoadDublin [place] [id number] BY: [facility] [address] [id number] Hemoglobin Ql (U) Negative Normal Compreh ensive Internal Medicine Work Phone: Comment on above: PATIENT WAS FASTINGP ERFORMED BY: CB [facility] Kdtynu5682 [address]ann RoadDublin [place] [id number] BY: LabCo[address] [id number] Hemoglobin Test strip Ql (U) Negative Normal [facility] Work Phone: Ketones Ql (U) Negative Normal Comprehens [facility] Work Phone: Comment on above: PATIENT WAS FASTINGP ERFORMED BY: DAYDAY [facility] Fgmwps6490 [address] RoadDublin [place] [id number] BY: [address] [id number] Leukocyte esterase Test strip Ql (U) 3+ Abnormal [facility] Work Phone: Comment on above: PATIENT WAS FASTINGP ERFORMED BY: DAYDAY [facility] Fluano5728 [address] [facility] [id number] BY: [address] [id number] Microscopic observation LM Nom (Urine sed) See below: Normal [facility] Work Phone: Comment on above: Microscopic was komal cated and was performed. PATIENT WAS FASTINGP ERFORMED BY: DAYDAY [facility] Auirox0483 [facility] [id number] BY: [address] [id number] Nitrite Ql (U) Negative Normal Comprehens [facility] Work Phone: Comment on above: PATIENT WAS FASTINGP ERFORMED BY: DAYDAY [facility] Rqadkl4352 [address] [facility] [id number] BY: [address] [id number] Nitrite Test strip Ql (U) Negative Normal [facility] Work Phone: pH (U) 7.0 [pH] Normal 5.0-7.5 [facility] Work Phone: Comment on above: PATIENT WAS FASTINGP ERFORMED BY: [facility] Pzuxpf8526 [address] [facility] [id number] BY: [address] [id number] pH Test strip (U) 7.0 [pH] Normal 5.0-7.5 Compreh ensive Internal Medicine Work Phone: Protein Ql (U) Negative Normal Comprehens [facility] Work Phone: Comment on above: PATIENT WAS FASTINGP ERFORMED BY: [facility] Bzsepc2071 [address] [facility] [id number] BY: Gigit[address] [id number] Protein Test strip Ql (U) Negative Normal [facility] Work Phone: Specific gravity Relative Density (U) 1.008 1 Normal 1.005-1.03 0 [facility] Work Phone: Comment on above: PATIENT WAS FASTINGP ERFORMED BY: [employer] Xotmzs2404 [address] [facility] [place] [id number] BY: [employer] [id number] Urobilinogen Test strip mass conc (U) 0.2 mg/dL Normal 0.2-1.0 Comprehensiv e Internal Medicine Work Phone: Comment on above: PATIENT WAS FASTINGP ERFORMED BY: [employer] Anser Innovationblin [place] [id number] BY: Gigit[address] [id number] VITAMIN B-12 (CYANOCOBALAMIN ) (11464)Ordered By: Materials Handler on 10-05-2016 Cobalamin (Vitamin B12) mass conc 356 pg/mL Normal 211-946 [facility] Work Phone: Comment on above: PATIENT WAS FASTINGP ERFORMED BY: Life[employer]6370 [address] [facility] [id number] BY: [employer] [id number] T3, FREE (TRIDOTHYRONINE) (8 2884)Ordered By: Materials Handler on 05-29-2016 T3 free mass conc 2.1 pg/mL Normal 2.0-4.4 Compreh ensive Internal Medicine Work Phone: Comment on above: PATIENT NOT FASTINGP ERFORMED BY: [employer] Pzdfyr2471 [address] RoadDublin [place] [id number] T4, FREE (THYROXINE) ([id number]) Ordered By: Materials Handler on 05-29-2016 T4 free mass conc 1.67 ng/dL Normal 0.82-1.77 Compreh ensive Internal Medicine Work Phone: Comment on above: PATIENT NOT FASTINGP ERFORMED BY: [employer] Mtxbmi1167 [facility] [id number] TSH (34520)Ordered By: Ying m Atg Architect on 05-29-2016 Thyrotropin Qn 1.640 {uIU/mL} Normal 0.450-4.50 0 [facility] Work Phone: Comment on above: PATIENT NOT FASTINGP ERFORMED BY: [facility] Joyjwe3136 [facility] [id number] CALCIFIDIOL (84021) VIT D 25 Ordered By: Materials Handler on 02-08-2016 25-Hydroxyvitamin D2+25-Hydroxyvitamin D3 mass conc 27.5 ng/mL Abnormal 30.0-100.0 [facility] Work Phone: Comment on above: Vitamin D deficiency has been defined by the [place] of[facility] Hospitalcine and an Endocrine Society practice guideline as alevel of serum 25-OH vitamin D less than 20 ng/mL (1,2).The Endocrine Society went on to further define vitamin Dinsufficiency as a level between 21 and 29 ng/mL (2).1. IOM ([place] of Medicine). 2010. Dietary reference intakes for calcium and D. [place]: The National Academies Press.2. Trevon MF, Sherrell JEFFERSON, Treva CORLEY, et al. Evaluation, treatment, and prevention of vitamin D deficiency: an Endocrine Society clinical practice guideline. JCEM. 2010; 96(7):1911-30. PATIENT WAS FASTINGP ERFORMED BY: Life[employer]ribe6370 [facility] [id number] CBC W/AUTO DIFF WBC (71474)O rdered By: Materials Handler on 02-08-2016 Basophils #/vol (Bld) 0.0 {x10E3/uL} Normal 0.0-0.2 [facility] Work Phone: Comment on above: PATIENT WAS FASTINGP ERFORMED BY: [facility] Fvsguy8832 [facility] [place] [id number] Basophils Auto #/vol (Bld) 0.0 {x10E3/uL} Normal 0.0-0.2 [facility] Work Phone: Basophils/100 WBC (Bld) 1 % Normal [facility] Work Phone: Comment on above: PATIENT WAS FASTINGP ERFORMED BY: DAYDAY [facility]PointM[facility] Hospital6370 [facility] [id number] Basophils/100 WBC Auto (Bld) 1 % Normal [facility] Work Phone: Eosinophils #/vol (Bld) 0.2 {x10E3/uL} Normal 0.0-0.4 [facility] Work Phone: Comment on above: PATIENT WAS FASTINGP ERFORMED BY: GigitPalisades Medical CenterXhjzdw1005 [facility] [id number] Eosinophils Auto #/vol (Bld) 0.2 {x10E3/uL} Normal 0.0-0.4 [facility] Work Phone: Eosinophils/100 WBC (Bld) 4 % Normal [facility] Work Phone: Comment on above: PATIENT WAS FASTINGP ERFORMED BY: [facility]Point[facility]6370 [facility] [id number] Eosinophils/100 WBC Auto (Bld) 4 % Normal [facility] Work Phone: Erythrocyte distribution width Auto Ratio (RBC) 12.9 % Normal 12.3-15.4 [facility] Work Phone: Erythrocyte distribution width Ratio (RBC) 12.9 % Normal 12.3-15.4 [facility] Work Phone: Comment on above: PATIENT WAS FASTINGP ERFORMED BY: [place] 3792570 [facility] [id number] Hematocrit Auto Volume Fraction (Bld) 36.1 % Normal 34.0-46.6 Comprehens [facility] Work Phone: Hematocrit Volume Fraction (Bld) 36.1 % Normal 34.0-46.6 [facility] Work Phone: Comment on above: PATIENT WAS FASTINGP ERFORMED BY: [facility]6370 [address] [facility] [id number] Hemoglobin mass conc (Bld) 12.2 g/dL Normal 11.1-15.9 [facility] Work Phone: Comment on above: PATIENT WAS FASTINGP ERFORMED BY: [place] 3792570 [address] [facility] [id number] Immature granulocytes #/vol (Bld) 0.0 {x10E3/uL} Normal 0.0-0.1 [facility] Work Phone: Comment on above: PATIENT WAS FASTINGP ERFORMED BY: [place] [id number] [facility] [id number] Immature granulocytes/100 WBC (Bld) 0 % Normal [facility] Work Phone: Comment on above: PATIENT WAS FASTINGP ERFORMED BY: [place] [id number] [facility] [id number] Lymphocytes #/vol (Bld) 1.2 {x10E3/uL} Normal 0.7-3.1 [facility] Work Phone: Comment on above: PATIENT WAS FASTINGP ERFORMED BY: [place] [id number] [facility] [id number] Lymphocytes Auto #/vol (Bld) 1.2 {x10E3/uL} Normal 0.7-3.1 [facility] Work Phone: Lymphocytes/100 WBC (Bld) 24 % Normal [facility] Work Phone: Comment on above: PATIENT WAS FASTINGP ERFORMED BY: [place] [id number] [facility] [id number] Lymphocytes/100 WBC Auto (Bld) 24 % Normal [facility] Work Phone: MCH Auto Entitic mass (RBC) 31.1 pg Normal 26.6-33.0 [facility] Work Phone: MCH Entitic mass (RBC) 31.1 pg Normal 26.6-33.0 [facility] Work Phone: Comment on above: PATIENT WAS FASTINGP ERFORMED BY: DAYDAY [facility] Jeymvp8680 [facility] [id number] MCHC Auto mass conc (RBC) 33.8 g/dL Normal 31.5-35.7 [facility] Work Phone: MCHC mass conc (RBC) 33.8 g/dL Normal 31.5-35.7 Comp rehensive [facility] Medicine Work Phone: Comment on above: PATIENT WAS FASTINGP ERFORMED BY: DAYDAY [place] [id number] [facility] [id number] MCV Auto Entitic volume (RBC) 92 fL Normal 79-97 [facility] Work Phone: MCV Entitic volume (RBC) 92 fL Normal 79-97 [facility] Work Phone: Comment on above: PATIENT WAS FASTINGP ERFORMED BY: DAYDAY [facility] Gypktg3077 [facility] [id number] Monocytes #/vol (Bld) 0.4 {x10E3/uL} Normal 0.1-0.9 [facility] Work Phone: Comment on above: PATIENT WAS FASTINGP ERFORMED BY: DAYDAY [facility] Zoydrn8487 [facility] [id number] Monocytes Auto #/vol (Bld) 0.4 {x10E3/uL} Normal 0.1-0.9 [facility] Work Phone: Monocytes/100 WBC (Bld) 8 % Normal [facility] Work Phone: Comment on above: PATIENT WAS FASTINGP ERFORMED BY: DAYDAY [facility]6370 [facility] [id number] Monocytes/100 WBC Auto (Bld) 8 % Normal [facility] Work Phone: Neutrophils #/vol (Bld) 3.3 {x10E3/uL} Normal 1.4-7.0 [facility] Work Phone: Comment on above: PATIENT WAS FASTINGP ERFORMED BY: DAYDAY [facility] Uumghh9120 [facility] [id number] Neutrophils Auto #/vol (Bld) 3.3 {x10E3/uL} Normal 1.4-7.0 [facility] Work Phone: Neutrophils/100 WBC (Bld) 63 % Normal [facility] Work Phone: Comment on above: PATIENT WAS FASTINGP ERFORMED BY: DAYDAY [facility] Hdaoml3412 [facility] [id number] Neutrophils/100 WBC Auto (Bld) 63 % Normal [facility] Work Phone: Platelets #/vol (Bld) 265 {x10E3/uL} Normal 150-379 [facility] Work Phone: Comment on above: PATIENT WAS FASTINGP ERFORMED BY: DAYDAY [facility] Kbvjdk9128 [facility] [id number] Platelets Auto #/vol (Bld) 265 {x10E3/uL} Normal 150-379 [facility] Work Phone: RBC #/vol (Bld) 3.92 {x10E6/uL} Normal 3.77-5.28 [facility] Internal Medicine Work Phone: Comment on above: PATIENT WAS FASTINGP ERFORMED BY: DAYDAY [facility] Zonoyz7315 [facility] [id number] RBC Auto #/vol (Bld) 3.92 {x10E6/uL} Normal 3.77-5.28 [facility] Work Phone: WBC #/vol (Bld) 5.2 {x10E3/uL} Normal 3.4-10.8 [facility] Internal Medicine Work Phone: Comment on above: PATIENT WAS FASTINGP ERFORMED BY: [facility]6370 [facility] [id number] WBC Auto #/vol (Bld) 5.2 {x10E3/uL} Normal 3.4-10.8 [facility] Work Phone: LIPID PANEL ([id number])Ordered B y: Materials Handler on 02-08-2016 Cholesterol in HDL mass conc 49 mg/dL Normal [facility] Work Phone: Comment on above: PATIENT WAS FASTINGP ERFORMED BY: DAYDAY Parks6370 [facility] [id number] Cholesterol in LDL mass conc 142 mg/dL Abnormal 0-99 [facility] Work Phone: Comment on above: PATIENT WAS FASTINGP ERFORMED BY: DAYDAY Parks6370 [facility] [id number] Cholesterol in LDL/Cholesterol in HDL mass ratio 2.9 {ratio_units} Normal 0.0-3.2 [facility] Work Phone: Comment on above: LDL/HDL Ratio Men Wo men 1/2 Avg.Risk 1.0 1.5 Avg.Risk 3.6 3.2 2X Avg.Risk 6.2 5.0 3X Avg.Risk 8.0 6.1 PATIENT WAS FASTINGP ERFORMED BY: DAYDAY Parks6370 [facility] [id number] Cholesterol in VLDL mass conc 16 mg/dL Normal 5-40 [facility] Work Phone: Comment on above: PATIENT WAS FASTINGP ERFORMED BY: DAYDAY Parks6370 [facility] [id number] Cholesterol mass conc 207 mg/dL Abnormal 100-199 Com prehensive [facility] Medicine Work Phone: Comment on above: PATIENT WAS FASTINGP ERFORMED BY: DAYDAY Parks6370 [facility] [id number] Triglyceride mass conc 80 mg/dL Normal 0-149 [facility] Work Phone: Comment on above: PATIENT WAS FASTINGP ERFORMED BY: DAYDAY Dangelolin6370 [facility] [id number] METABOLIC PANEL, COMPREHENSI VE ([id number])Ordered By: Materials Handler on 02-08-2016 Albumin mass conc 4.1 g/dL Normal 3.5-4.8 Compreh ensive Internal Medicine Work Phone: Comment on above: PATIENT WAS FASTINGP ERFORMED BY: DAYDAY Dangelolin[address] Road[address]ublin [place] [id number] Albumin/Globulin mass ratio 1.5 {ratio} Normal 1.1-2.5 [facility] Internal Medicine Work Phone: Comment on above: PATIENT WAS FASTINGP ERFORMED BY: [facility] Hiouis8985 [address] RoadDublin [place] [id number] ALP enzyme act/vol 73 [iU]/L Normal 39-117 [facility] Internal Medicine Work Phone: Comment on above: PATIENT WAS FASTINGP ERFORMED BY: [facility] Rwoptz9891 [address] RoadDublin [place] [id number] ALT enzyme act/vol 14 [iU]/L Normal 0-32 [facility] Internal Medicine Work Phone: Comment on above: PATIENT WAS FASTINGP ERFORMED BY: [facility] Tzxrge2025 [address] RoadDublin [place] [id number] AST enzyme act/vol 25 [iU]/L Normal 0-40 [facility] Internal Medicine Work Phone: Comment on above: PATIENT WAS FASTINGP ERFORMED BY: [facility] Spkfzv3062 [address] RoadDublin [place] [id number] Bilirubin mass conc 0.4 mg/dL Normal 0.0-1.2 [facility] Internal Medicine Work Phone: Comment on above: PATIENT WAS FASTINGP ERFORMED BY: [facility] Nalttt13[address] RoadDublin [place] [id number] Calcium mass conc 9.9 mg/dL Normal 8.7-10.[address] [facility] Internal Medicine Work Phone: Comment on above: PATIENT WAS FASTINGP ERFORMED BY: [facility] Jipxdw5309 [address] RoadDublin [place] [id number] Chloride molar conc 100 mmol/L Normal 97-106 [facility] Internal Medicine Work Phone: Comment on above: PATIENT WAS FASTINGP ERFORMED BY: [facility] Iyalwj3689 [address] RoadDublin [place] [id number] CO2 molar conc 22 mmol/L Normal 18-29 Comprehens [facility] Internal Medicine Work Phone: Comment on above: PATIENT WAS FASTINGP ERFORMED BY: DAYDAY LabRomaine Parks[address] [facility] [id number] Creatinine mass conc 0.98 mg/dL Normal 0.57-1.00 Comp rehensive [facility] Medicine Work Phone: Comment on above: PATIENT WAS FASTINGP ERFORMED BY: DAYDAY [facility] Tpvtft8168 [address] [facility] [id number] GFR/1.73 sq M predicted among blacks CKD-EPI vol rate/area (S/P/Bld) 64 mL/min/1.73 Normal Comprehensiv e Internal Medicine Work Phone: Comment on above: PATIENT WAS FASTINGP ERFORMED BY: DAYDAY Dangelolin6370 [facility] [id number] GFR/1.73 sq M predicted among non-blacks CKD-EPI vol rate/area (S/P/Bld) 55 mL/min/1.73 Abnormal [facility] Work Phone: Comment on above: PATIENT WAS FASTINGP ERFORMED BY: DAYDAY Paul Dgkgxw1943 [facility] [id number] Globulin Calculated mass conc (S) 2.8 g/dL Normal 1.5-4.5 [facility] Work Phone: Globulin mass conc (S) 2.8 g/dL Normal 1.5-4.5 [facility] Work Phone: Comment on above: PATIENT WAS FASTINGP ERFORMED BY: DAYDAY [facility] Cppkoe6388 [facility] [id number] Glucose mass conc 91 mg/dL Normal 65-99 Compreh ensive Internal Medicine Work Phone: Comment on above: PATIENT WAS FASTINGP ERFORMED BY: DAYDAY LabKarina Leooaj6512 [facility] [id number] Potassium molar conc 4.6 mmol/L Normal 3.5-5.2 Comp rehensive [facility] Work Phone: Comment on above: PATIENT WAS FASTINGP ERFORMED BY: DAYDAY Dangelolin[address]ublin [place] [id number] Protein mass conc 6.9 g/dL Normal 6.0-8.5 Compreh ensive [facility] Medicine Work Phone: Comment on above: PATIENT WAS FASTINGP ERFORMED BY: DAYDAY Parks[address] [place] [id number] Sodium molar conc 138 mmol/L Normal 136-144 Compreh ensive Internal Medicine Work Phone: Comment on above: PATIENT WAS FASTINGP ERFORMED BY: DAYDAY Parks[address] [place] [id number] Urea nitrogen mass conc 15 mg/dL Normal - [facility] Work Phone: Comment on above: PATIENT WAS FASTINGP ERFORMED BY: DAYDAY Parks[address]Duin [place] [id number] Urea nitrogen/Creatinine mass ratio 15 mg/mg Normal 02-11 [facility] Work Phone: Comment on above: PATIENT WAS FASTINGP ERFORMED BY: DAYDAY Parks[address] [facility] HospitalBee Cave Gamesin [place] [id number] MICROALBUMINOrdered By: Syst em Atg Architect on 02-08-2016 Albumin DL <= 20 mg/L mass conc (U) 42.9 ug/mL Normal [facility] Work Phone: Comment on above: PATIENT WAS FASTINGP ERFORMED BY: DAYDAY Parks[address] [facility]in [place] [id number] Albumin/Creatinine mass ratio (U) 39.0 {mg/g_creat} Abnormal 0.0-30.0 [facility] Work Phone: Comment on above: PATIENT WAS FASTINGP ERFORMED BY: DAYDAY LabRomaine DangeloGnnikw4841 [address] RoadDublin [place] [id number] Creatinine mass conc (U) 110.1 mg/dL Normal [facility] Work Phone: Comment on above: PATIENT WAS FASTINGP ERFORMED BY: DAYDAY Dangelolin6[address]Dublin [place] [id number] Microscopic ExaminationOrder ed By: Materials Handler on 02-08-2016 Bacteria LM.HPF #/area (Urine sed) Few Normal [facility] Work Phone: Comment on above: PATIENT WAS FASTINGP ERFORMED BY: DAYDAY LabCoelier Cwewtm3776 [address] [facility]in [place] [id number] Epithelial cells LM.HPF #/area (Urine sed) 0-10 Normal 0 - 10 [facility] Work Phone: Comment on above: PATIENT WAS FASTINGP ERFORMED BY: DAYDAY [facility] Jsajfc0832 [address] [facility]in [place] [id number] Mucus LM Ql (Urine sed) Present Normal [facility] Work Phone: Mucus Ql (Urine sed) Present Normal Comp rehensive [facility] Medicine Work Phone: Comment on above: PATIENT WAS FASTINGP ERFORMED BY: DAYDAY LabCoelier Branen[address] [facility]in [place] [id number] RBC LM.HPF #/area (Urine sed) 3-10 Abnormal 0 - 2 [facility] Work Phone: Comment on above: PATIENT WAS FASTINGP ERFORMED BY: DAYDAY [facility] Dggpog4090 [address] [facility]in [place] [id number] WBC LM.HPF #/area (Urine sed) /[HPF] Abnormal 0 - 5 [facility] Work Phone: Comment on above: PATIENT WAS FASTINGP ERFORMED BY: DAYDAY [facility] Ruwqyh7899 [facility] [id number] TSH ([id number])Ordered By: Syste m Atg Architect on 02-08-2016 Thyrotropin Qn 4.920 {uIU/mL} Abnormal 0.450-4.50 0 [facility] Work Phone: Comment on above: PATIENT WAS FASTINGP ERFORMED BY: DAYDAY [facility] Hiossy3253 [facility]in [place] [id number] URINALYSIS, W/ MICRO ([id number]) Ordered By: Materials Handler on 02-08-2016 Appearance Nom (U) Clear Normal Compre hensive [facility] Medicine Work Phone: Comment on above: PATIENT WAS FASTINGP ERFORMED BY: DAYDAY LabCo Iftavx2256 [address] RoadDublin [place] [id number] Color Nom (U) Yellow Normal Comprehensi ve Internal Medicine Work Phone: Comment on above: PATIENT WAS FASTINGP ERFORMED BY: DAYDAY [facility] Klpawl1435 [address] RoadDublin [place] [id number] Glucose Ql (U) Negative Normal Comprehens bur[facility] Internal [facility] Work Phone: Comment on above: PATIENT WAS FASTINGP ERFORMED BY: [facility] Apyscb0585 [address] RoadDublin [place] [id number] Hemoglobin Ql (U) Negative Normal Compreh ensive [facility] Medicine Work Phone: Comment on above: PATIENT WAS FASTINGP ERFORMED BY: DAYDAY [facility] Ftjmkv3119 [address] RoadDublin [place] [id number] Ketones Ql (U) Negative Normal Comprehens [facility] Work Phone: Comment on above: PATIENT WAS FASTINGP ERFORMED BY: [facility] Wmugms4943 [address] RoadDublin [place] [id number] Leukocyte esterase Test strip Ql (U) 2+ Abnormal [facility] Work Phone: Comment on above: PATIENT WAS FASTINGP ERFORMED BY: DAYDAY LabSt. Louis Va Medical CenterNnfaxj4116 V[address] RoadDublin [place] [id number] Microscopic observation LM Nom (Urine sed) See below: Normal [facility] Work Phone: Comment on above: Microscopic was komal cated and was performed. PATIENT WAS FASTINGP ERFORMED BY: [facility] Hkkujs7728 [address] RoadDublin [place] [id number] Nitrite Test strip Ql (U) Negative Normal [facility] Work Phone: pH (U) 6.5 [pH] Normal 5.0-7.5 [facility] Work Phone: Comment on above: PATIENT WAS FASTINGP ERFORMED BY: [facility] Ktqkfl7380 [address] RoadDublin [place] [id number] pH Test strip (U) 6.5 [pH] Normal 5.0-7.5 Compreh ensive Internal Medicine Work Phone: Urobilinogen Test strip mass conc (U) 0.2 mg/dL Normal 0.2-1.0 Comprehensiv e Internal Medicine Work Phone: Comment on above: PATIENT WAS FASTINGP ERFORMED BY: DAYDAY LabHypeSparkrp Xlsgvl1118 GlistenCumberland Hall Hospital [id number] URINE LISSETTE CULTURE (DAKSHA COL COUNT) ([id number])Ordered By: Materials Handler on 02-08-2016 Bacteria identified Cx Nom (U) Final report Abnormal [facility] Work Phone: Comment on above: PATIENT NOT FASTINGP ERFORMED BY: LabHypeSparkrp Yozzlt5004Instreet NetworkCarolinaEast Medical Center [id number] Information: SRC: Bacteria identified Cx Nom (U) Escherichia coli Abnormal [facility] Work Phone: Comment on above: Greater than 100,000 colony forming units per mL PATIENT NOT FASTINGP ERFORMED BY: LabHypeSparkrp Aiwcif0195 Health InformaticsCarolinaEast Medical Center [id number] Information: SRC: Other Antibiotic [facility] prehensive Internal Medicine Work Phone: Comment on above: S = Susceptible; I = Intermediate; R = Resistant P = Positive; N = Negative MICS are expressed in micrograms per mL Antibiotic RSLT#1 RSLT#2 RSLT#3 RSLT#4Amoxicillin/Clavulanic Acid SAmpicillin SCefepime SCeftriaxone SCefuroxime SCephalothin SCiprofloxacin SErtapenem SGentamicin SImipenem SLevofloxacin SNitrofurantoin SPiperacillin STetracycline STobramycin STrimethoprim/Sulfa S PATIENT NOT FASTINGP ERFORMED BY: LabHypeSparkrp Rlwanq9649 [address] Anser InnovationFirstHealth Moore [facility] [id number] Information: SRC:TEMITOPE Urinalysis, Office ([id number])Or dered By: VIRGINIA Arroyo on 02-08-2016 Bilirubin Ql (U) Negative Normal Comprehe nsive Internal Medicine Work Phone: Comment on above: PATIENT WAS FASTINGP ERFORMED BY: DAYDAY [employer] Xqppjb0911 [address] ShoutWirein [place] [id number] Glucose Test strip mass conc (U) Negative Normal [facility] Work Phone: Hemoglobin Test strip Ql (U) Negative Normal [facility] Work Phone: Leukocyte esterase Test strip Ql (U) Moderate Normal [facility] Work Phone: Nitrite Ql (U) Negative Normal Comprehens [facility] Work Phone: Comment on above: PATIENT WAS FASTINGP ERFORMED BY: DAYDAY [employer] ShoutWireCarolinaEast Medical Center [id number] pH (U) 7.0 [pH] Normal [facility] Work Phone: pH Test strip (U) 7.0 [pH] Normal Compreh ensive Internal Medicine Work Phone: Protein Ql (U) Negative Normal Comprehens bur[facility] Work Phone: Comment on above: PATIENT WAS FASTINGP ERFORMED BY: DAYDAY [employer] Jhjfyn2506 [address] ShoutWireCarolinaEast Medical Center [id number] Protein Test strip Ql (U) Negative Normal [facility] Work Phone: Specific gravity Relative Density (U) 1.015 1 Normal Comprehensi ve Internal Medicine Work Phone: Comment on above: PATIENT WAS FASTINGP ERFORMED BY: DAYDAY LabePropertyData6370 [address] Anser InnovationFirstHealth Moore [facility] [id number] Urobilinogen mass/time (24H U) 2 mg/dL Normal [facility] Work Phone: Blood Glucose , Office ([phone])Ordered By: Ninoska Kemp on 01-20-2016 Glucose Glucometer molar conc (BldC) 85 1 Normal [facility] Work Phone: HgA1C , Office ([phone])Ordere d By: Ninoska Kemp on 01-20-2016 Hemoglobin A1c/Hemoglobin.total mass fraction (Bld) 5.5 % Normal 4.6 - 7.1 Comprehensiv e Internal Medicine Work Phone: Fluid/WashingOrdered By: Liam tem Atg Architect on 09-16-2015 Fluid/Washing See Note Normal Comprehensi ve Internal Medicine Work Phone: Comment on above: Patient: MAXI PARKER : 1935 (80/F) Acct Num: [id number] Phys: Allenone DPM,Patricia Unit Num: [id number] Loc: LABSPEC Specimen: [id number] Received: 09/16/15 - 1424 Spec Type: Fluid TISSUES TISSUES: COMMENT Touch imprint evaluation for crystals by Dr. 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 Negative for uric acid crystals. Case has been reviewed in consultation with Dr. Styles who concurs with the above diagnosis. IDC:AM CULTURE RESULTS No results available. CYTOLOGY GROSS Received is 1 ml of thick red fluid labeled with the patient's name and and designated per the requisition as cyst. A touch imprint prepared for evaluation of the crystals. Submitted for cytology preparation including cell block. / 09/17/15 TC:5 CPT:88011, 16933, 86652 CYTOLOGY STUDY Slides are reviewed. The specimen is bloody and consists of numerous macrophages. Malignant cells are not identified. DIAGNOSIS CYTOLOGY Ganglion cyst versus gout fluid (cytospin and cell block): Negative for malignant cells. Consistent with cyst contents. See cytology study and comment. SJ:dinorah 09/21/15 HEADER OPERATION: Not noted PRE-OP DIAGNOSIS: Ganglion cyst, gout TISSUE SUBMITTED: Cyst Signed Magdi Long 09/21/15 [facility] [address] [place], [place], [id number] Basic Metabolic Profile (BMP )Ordered By: Materials Handler on 04-14-2015 Basic metabolic 2000 panel 4.4 mmol/L Normal 3.5-5.1 [facility] Work Phone: Comment on above: [facility] Vdcsmibbes[address] [place], [place], [address] Basic metabolic 2000 panel 0.88 mg/dL Normal 0.55-1.20 [facility] Work Phone: Comment on above: The validity of the calculated GFR AND GFRAA in patients over70 years has not been determined. Clinical correlation isessential. [facility] [address] [place], [address] Basic metabolic 2000 panel 9 mg/dL Normal 7-18 [facility] Work Phone: Comment on above: [facility] [address] [place], [address] Basic metabolic 2000 panel 29.0 mmol/L Normal 21.0-32.0 [facility] Work Phone: Comment on above: [facility] [address] [place], [address] Basic metabolic 2000 panel 104 mmol/L Normal 98-107 [facility] Work Phone: Comment on above: [facility] [address] [place], [address] Basic metabolic 2000 panel 6 1 Normal 5-15 [facility] Work Phone: Comment on above: [facility] [address] [place], [address] Basic metabolic 2000 panel 10.2 {RATIO} Normal 10-20 [facility] Work Phone: Comment on above: [facility] [address] [place], [address] Basic metabolic 2000 panel 80 mL/min Normal [facility] Work Phone: Comment on above: GFR Calc [facility] [address] [place], [address] Basic metabolic 2000 panel 66 mL/min Normal [facility] Work Phone: Comment on above: Non- GFR Calc [facility] [address] [place], [place], [id number] Basic metabolic 2000 panel 139 mmol/L Normal 136-145 [facility] Work Phone: Comment on above: [facility] [address] [place], [place], [id number] Basic metabolic 2000 panel 9.0 mg/dL Normal 8.5-10.1 [facility] Work Phone: Comment on above: [facility] [address] [place], [place], [address] Basic metabolic 2000 panel 85 mg/dL Normal 70-110 [facility] Work Phone: Comment on above: [facility] [address] [place], [place], [id number] CBC-Complete Blood Cnt No Di ffOrdered By: Materials Handler on 04-14-2015 Erythrocyte distribution width Auto Ratio (RBC) 12.2 % Normal 11.6-14.6 [facility] Work Phone: Erythrocyte distribution width Ratio (RBC) 12.2 % Normal 11.6-14.6 [facility] Work Phone: Comment on above: [facility] [address] [place], [place], [phone] Hematocrit Auto Volume Fraction (Bld) 38.3 % Normal 37-47 [facility] Internal Medicine Work Phone: Hematocrit Volume Fraction (Bld) 38.3 % Normal 37-47 [facility] Work Phone: Comment on above: [facility] [address] [place], [address] Hemoglobin mass conc (Bld) 13.0 g/dL Normal 12.0-15.0 [facility] Work Phone: Comment on above: [facility] [address] [place], [place], [phone] MCH Auto Entitic mass (RBC) 31.8 pg Normal 27.0-32.0 [facility] Work Phone: MCH Entitic mass (RBC) 31.8 pg Normal 27.0-32.0 [facility] Work Phone: Comment on above: [facility] [address] [place], [place], [address] MCHC Auto mass conc (RBC) 33.9 {g/gl} Normal 32-36 [facility] Work Phone: MCHC mass conc (RBC) 33.9 {g/gl} Normal 32-36 [facility] prehensive Internal Medicine Work Phone: Comment on above: [facility] [address] [place], [address] MCV Auto Entitic volume (RBC) 93.6 fL Normal 81-99 [facility] Work Phone: MCV Entitic volume (RBC) 93.6 fL Normal 81-99 [facility] Work Phone: Comment on above: [facility] [address] [place], [address] Platelet mean volume Auto Entitic volume (Bld) 9.6 fL Normal 6.2-12.0 [facility] Work Phone: Platelet mean volume Entitic volume (Bld) 9.6 fL Normal 6.2-12.0 [facility] Work Phone: Comment on above: [facility] [address] [place], [address] Platelets #/vol (Bld) 237 10*3/uL Normal 150-450 [facility] Internal [facility] Work Phone: Comment on above: [facility] [address] [place], [address] Platelets Auto #/vol (Bld) 237 10*3/uL Normal 150-450 [facility] Internal Medicine Work Phone: RBC #/vol (Bld) 4.09 {M/mm3} Abnormal 4.2-5.4 Compreh ensive Internal Medicine Work Phone: Comment on above: [facility] [address] [place], [address] RBC Auto #/vol (Bld) 4.09 {M/mm3} Abnormal 4.2-5.4 Co mprehensive Internal Medicine Work Phone: RDW SD 41.0 fL Normal 35.1-43.9 [facility] Internal [facility] Work Phone: WBC #/vol (Bld) 8.4 10*3/uL Normal 4.4-11.0 Comprehe nsive Internal Medicine Work Phone: Comment on above: [facility] [address] [place], [address] WBC Auto #/vol (Bld) 8.4 10*3/uL Normal 4.4-11.0 Com prehensive Internal Medicine Work Phone: CBC-Complete Blood Cnt No Diff 41.0 fL Normal 35.1-43.9 [facility] Internal Medicine Work Phone: Comment on above: [facility] [address] [place], [address] Prothrombin Time w/INROrdere d By: Materials Handler on 04-14-2015 INR Coag RelTime (PPP) 1.0 {INR} Normal [facility] Medicine Work Phone: Comment on above: [facility] [address] [place], [address] Prothrombin time (PT) Coag time (PPP) 13.6 s Normal 11.7-14.9 [facility] Internal Medicine Work Phone: Comment on above: [facility] [address] [place], [address] Urinalysis, Routine (Dipstic k)Ordered By: Materials Handler on 04-14-2015 BILIRUBIN URINE Negative Normal Comprehen sive Internal Medicine Work Phone: CLARITY Clear Normal [facility] Work Phone: Clarity Nom (U) Clear Normal Comprehen sive Internal Medicine Work Phone: Comment on above: How was Urine Obtain ed? CUSTOMER DEVELOPMENT REPRESENTATIVE TO SPECIFY[facility] [address] [place], [address] COLOR Straw Normal [facility] Internal Medicine Work Phone: Color Nom (U) Straw Normal Comprehensi ve Internal Medicine Work Phone: Comment on above: How was Urine Obtain ed? CUSTOMER DEVELOPMENT REPRESENTATIVE TO SPECIFYMart[facility] [address] [place], [id number] GLUCOSE, UR Normal Normal [facility] Medicine Work Phone: LEUK ESTERASE 100 /ul Abnormal Comprehensi ve Internal Medicine Work Phone: pH UR 6.5 1 Normal 5.0 - 8.0 [facility] Internal Medicine Work Phone: SP.GR. DIPSTX 1.005 1 Normal 1.002-1.03 0 [facility] Medicine Work Phone: Urinalysis, Routine (Dipstick) Normal Normal [facility] Work Phone: Comment on above: How was Urine Obtain ed? CUSTOMER DEVELOPMENT REPRESENTATIVE TO SPECIFYMart[facility] [address] [place], [address] Urinalysis, Routine (Dipstick) Clear Normal [facility] Work Phone: Urinalysis, Routine (Dipstick) 100 /ul Abnormal [facility] Work Phone: Comment on above: How was Urine Obtain ed? CUSTOMER DEVELOPMENT REPRESENTATIVE TO SPECIFYMart[facility] [address] [place], [address] Urinalysis, Routine (Dipstick) Negative Normal [facility] Medicine Work Phone: Comment on above: How was Urine Obtain ed? CUSTOMER DEVELOPMENT REPRESENTATIVE TO SPECIFYMart[facility] [address] [place], [id number] Urinalysis, Routine (Dipstick) Straw Normal [facility] Work Phone: Urinalysis, Routine (Dipstick) 6.5 1 Normal 5.0 - 8.0 [facility] Work Phone: Comment on above: How was Urine Obtain ed? CUSTOMER DEVELOPMENT REPRESENTATIVE TO SPECIFYMart[facility] [address] [place], [address] Urinalysis, Routine (Dipstick) 1.005 1 Normal 1.002-1.03 0 [facility] Medicine Work Phone: Comment on above: How was Urine Obtain ed? CUSTOMER DEVELOPMENT REPRESENTATIVE TO SPECIFYMart[facility] [address] [place], [place], [id number] Bilirubin, DirectOrdered By: Materials Handler on 12-08-2014 Bilirubin.conjugated mass conc 0.10 mg/dL Normal 0.00-0.30 [facility] Medicine Work Phone: Comment on above: Serial Specimen #1, #2 or #3? 1Test performed at:[facility] [address] [place] [address] CA 15-3 Serial MonitorOrdere d By: Materials Handler on 12-08-2014 Cancer Ag 15-3 Qn Normal Compreh ensive Internal Medicine Work Phone: Comment on above: Scanned image report available in EMR Is Patient Fasting? NTest performed at:[facility] [address] [place] [address] Cancer Ag 15-3 Qn 12.7 U/mL Normal 0.0-25.0 Compreh ensive Internal Medicine Work Phone: Comment on above: Leslie ECLIA methodol ogy Is Patient Fasting? NTest performed at:[facility] [address] [place] [address] CA 19-9 Serial MonitorOrdere d By: Materials Handler on 12-08-2014 CA 19-9 2261 24 U/mL Normal 0-35 Comprehensiv e Internal Medicine Work Phone: Comment on above: Leslie ECLIA methodol ogy CA19-9 GRAPH Normal Comprehensiv e Internal Medicine Work Phone: Comment on above: Scanned image report available in EMR CA 19-9 Serial Monitor 24 U/mL Normal 0-35 [facility] Medicine Work Phone: Comment on above: Leslie ECLIA methodol ogy Is Patient Fasting? NTest performed at:[facility] [address] [place] [address] CA 27.29 Serial MonitorOrder ed By: Materials Handler on 12-08-2014 Cancer Ag 27-29 Qn Normal [facility] Internal Medicine Work Phone: Comment on above: Scanned image report available in EMR Is Patient Fasting? NTest performed at:[facility] [address] [place] [address] Cancer Ag 27-29 Qn 13.7 U/mL Normal 0.0-38.6 [facility] Internal Medicine Work Phone: Comment on above: Zechariah Centaur/ACS me thodology Is Patient Fasting? NTest performed at:[facility] [address] [place] [address] CBC W/Diff, AutomatedOrdered By: Materials Handler on 12-08-2014 Absolute Lymph 1.07 {X10_3/ul} Normal 0.83-4.51 Compr ehensive Internal Medicine Work Phone: Absolute Neut 3.8 {X10_3/uL} Normal 2.0-7.7 Compreh ensive Internal Medicine Work Phone: Comment on above: Test performed at:[facility] [address] [place] [address] Basophils/100 WBC (Bld) 0.7 % Normal 0-1 [facility] Medicine Work Phone: Comment on above: Test performed at:[facility] [address] [place] [address] Basophils/100 WBC Auto (Bld) 0.7 % Normal 0-1 [facility] Work Phone: Eosinophils/100 WBC (Bld) 4.8 % Normal 0-5 [facility] Work Phone: Comment on above: Test performed at:[facility] [address] [place] [address] Eosinophils/100 WBC Auto (Bld) 4.8 % Normal 0-5 [facility] Work Phone: Erythrocyte distribution width Auto Ratio (RBC) 12.4 % Normal 11.6-14.6 [facility] Work Phone: Erythrocyte distribution width Ratio (RBC) 12.4 % Normal 11.6-14.6 [facility] Work Phone: Comment on above: Test performed at:[facility] [address] [place] [address] Hematocrit Auto Volume Fraction (Bld) 37.4 % Normal 37-47 Comprehens [facility] Internal Medicine Work Phone: Hematocrit Volume Fraction (Bld) 37.4 % Normal 37-47 [facility] Work Phone: Comment on above: Test performed at:[facility] [address] [place] [address] Hemoglobin mass conc (Bld) 12.6 g/dL Normal 12.0-15.0 [facility] Medicine Work Phone: Comment on above: Test performed at:[facility] [address] [place] [address] IM GRAN % 0.200 % Normal 0.0-0.9 [facility] Work Phone: Comment on above: IG% - Immature Granu locytes (promyelocytes, myelocytes andmetamyelocytes) > 1% indicates that a LEFT SHIFT is Present. Test performed at:[facility] [address] [place] [address] Lymphocytes #/vol (Bld) 1.07 {X10_3/ul} Normal 0.83-4.51 [facility] Work Phone: Comment on above: Test performed at:[facility] [address] [place] [address] Lymphocytes/100 WBC (Bld) 18.9 % Abnormal 19-41 [facility] Work Phone: Comment on above: Test performed at:[facility] [address] [place] [address] Lymphocytes/100 WBC Auto (Bld) 18.9 % Abnormal 19-41 [facility] Work Phone: MCH Auto Entitic mass (RBC) 31.3 pg Normal 27.0-32.0 [facility] Work Phone: MCH Entitic mass (RBC) 31.3 pg Normal 27.0-32.0 [facility] Work Phone: Comment on above: Test performed at:[facility] [address] [place] [address] MCHC Auto mass conc (RBC) 33.7 {g/gl} Normal 32-36 [facility] Work Phone: MCHC mass conc (RBC) 33.7 {g/gl} Normal 32-36 [facility] prehensive Internal Medicine Work Phone: Comment on above: Test performed at:[facility] [address] [place] [address] MCV Auto Entitic volume (RBC) 93.0 fL Normal 81-99 [facility] Work Phone: MCV Entitic volume (RBC) 93.0 fL Normal 81-99 [facility] Work Phone: Comment on above: Test performed at:[facility] [address] [place] [address] Monocytes/100 WBC Auto (Bld) 8.0 % Normal 0-10 [facility] Work Phone: Comment on above: Test performed at:[facility] [address] [place] [address] Monocytes/100 WBC Auto (Bld) 8.0 % Normal 0-10 [facility] Work Phone: Neutrophils/100 WBC (Bld) 67.4 % Normal 47-70 [facility] Work Phone: Comment on above: Test performed at:[facility] [address] [place] [address] Neutrophils/100 WBC Auto (Bld) 67.4 % Normal 47-70 [facility] Work Phone: Platelet mean volume Auto Entitic volume (Bld) 9.3 fL Normal 6.2-12.0 [facility] Work Phone: Platelet mean volume Entitic volume (Bld) 9.3 fL Normal 6.2-12.0 Comprehensi ve Internal Medicine Work Phone: Comment on above: Test performed at:[facility] [address] [place] [address] Platelets #/vol (Bld) 237 10*3/uL Normal 150-450 Co mprehensive Internal Medicine Work Phone: Comment on above: Test performed at:[facility] [address] [place] [address] Platelets Auto #/vol (Bld) 237 10*3/uL Normal 150-450 [facility] Medicine Work Phone: RBC #/vol (Bld) 4.02 {M/mm3} Abnormal 4.2-5.4 Compreh ensive Internal Medicine Work Phone: Comment on above: Test performed at:[facility] [address] [place] [address] RBC Auto #/vol (Bld) 4.02 {M/mm3} Abnormal 4.2-5.4 Co mprehensive Internal Medicine Work Phone: RDW SD 42.1 fL Normal 35.1-43.9 [facility] Medicine Work Phone: Comment on above: Test performed at:[facility] [address] [place] [address] WBC #/vol (Bld) 5.7 10*3/uL Normal 4.4-11.0 Comprehe nsive Internal Medicine Work Phone: Comment on above: Test performed at:[facility] [address] [place] [address] WBC Auto #/vol (Bld) 5.7 10*3/uL Normal 4.4-11.0 Com prehensive Internal Medicine Work Phone: CBC W/Diff, Automated 0.200 % Normal 0.0-0.9 [facility] prehensive Internal Medicine Work Phone: Comment on above: IG% - Immature Granu locytes (promyelocytes, myelocytes andmetamyelocytes) > 1% indicates that a LEFT SHIFT is Present. CBC W/Diff, Automated 42.1 fL Normal 35.1-43.9 [facility] prehensive Internal Medicine Work Phone: CBC W/Diff, Automated 3.8 {X10_3/uL} Normal 2.0-7.7 [facility] Work Phone: CBC W/Diff, Automated 1.07 {X10_3/ul} Normal 0.83-4.51 [facility] Medicine Work Phone: Cancer Antigen 125Ordered By : Materials Handler on 12-08-2014 Cancer Ag 125 Qn 10.1 U/mL Normal 0.0-34.0 Comprehe nsive Internal Medicine Work Phone: Comment on above: Leslie ECLIA methodol ogy Is Patient Fasting? NTest performed at:[facility] [address] [place] [address] Carcinoembryonic AntigenOrde red By: Materials Handler on 12-08-2014 Carcinoembryonic Ag mass conc 2.0 ng/mL Normal 0.0-4.7 [facility] Medicine Work Phone: Comment on above: Leslie ECLIA methodol ogy Nonsmokers <3.9 Smokers <5.6 Is Patient Fasting? NTest performed at:[facility] [address] [place] [address] Comprehensive Metabolic Prof ilOrdered By: Materials Handler on 12-08-2014 Comprehensive metabolic 2000 panel 50 mL/min Abnormal Comprehensi ve Internal Medicine Work Phone: Comment on above: Serial Specimen #1, #2 or #3? 1Test performed at:[facility] [address] [place] [address] Comprehensive metabolic 2000 panel 3.7 g/dL Normal 3.4-5.0 Comprehensi ve Internal Medicine Work Phone: Comment on above: Serial Specimen #1, #2 or #3? 1Test performed at:[facility] [address] [place] [address] Comprehensive metabolic 2000 panel 7.4 g/dL Normal 6.4-8.2 Comprehensi ve Internal Medicine Work Phone: Comment on above: Serial Specimen #1, #2 or #3? 1Test performed at:[facility] [address] [place] [address] Comprehensive metabolic 2000 panel 1.0 {RATIO} Normal 0.9-2.4 Comprehensi ve Internal Medicine Work Phone: Comment on above: Serial Specimen #1, #2 or #3? 1Test performed at:[facility] [address] [place] [address] Comprehensive metabolic 2000 panel 8.8 mg/dL Normal 8.5-10.1 Comprehensi ve Internal Medicine Work Phone: Comment on above: Serial Specimen #1, #2 or #3? 1Test performed at:[facility] [address] [place] [address] Comprehensive metabolic 2000 panel 24 U/L Normal 12-78 Comprehensi ve Internal Medicine Work Phone: Comment on above: Serial Specimen #1, #2 or #3? 1Test performed at:[facility] [address] [place] [address] Comprehensive metabolic 2000 panel 70 U/L Normal 50-136 Comprehensi ve Internal Medicine Work Phone: Comment on above: Serial Specimen #1, #2 or #3? 1Test performed at:[facility] [address] [place] [address] Comprehensive metabolic 2000 panel 15.2 {RATIO} Normal 10-20 Comprehensi ve Internal Medicine Work Phone: Comment on above: Serial Specimen #1, #2 or #3? 1Test performed at:[facility] [address] [place] [address] Comprehensive metabolic 2000 panel 61 mL/min Normal Comprehensi ve Internal Medicine Work Phone: Comment on above: Serial Specimen #1, #2 or #3? 1Test performed at:[facility] [address] [place] [address] Comprehensive metabolic 2000 panel 1.12 mg/dL Normal 0.55-1.20 Comprehensi ve Internal Medicine Work Phone: Comment on above: The validity of the calculated GFR AND GFRAA in patients over70 years has not been determined. Clinical correlation isessential. Serial Specimen #1, #2 or #3? 1Test performed at:[facility] [address] [place] [address] Comprehensive metabolic 2000 panel 0.50 mg/dL Normal 0.20-1.00 Comprehensi ve Internal Medicine Work Phone: Comment on above: Serial Specimen #1, #2 or #3? 1Test performed at:[facility] [address] [place], [place] [id number] Comprehensive metabolic 2000 panel 17 mg/dL Normal 7-18 Comprehensi ve Internal Medicine Work Phone: Comment on above: Serial Specimen #1, #2 or #3? 1Test performed at:[facility] [address] [place] [address] Comprehensive metabolic 2000 panel 82 mg/dL Normal 70-110 Comprehensi ve Internal Medicine Work Phone: Comment on above: Serial Specimen #1, #2 or #3? 1Test performed at:[facility] [address] [place], [place] [address] Comprehensive metabolic 2000 panel 6 1 Normal 5-15 Comprehensi ve Internal Medicine Work Phone: Comment on above: Serial Specimen #1, #2 or #3? 1Test performed at:[facility] [address] [place] [address] Comprehensive metabolic 2000 panel 26.0 mmol/L Normal 21.0-32.0 Comprehensi ve Internal Medicine Work Phone: Comment on above: Serial Specimen #1, #2 or #3? 1Test performed at:[facility] [address] [place] [address] Comprehensive metabolic 2000 panel 103 mmol/L Normal 98-107 Comprehensi ve Internal Medicine Work Phone: Comment on above: Serial Specimen #1, #2 or #3? 1Test performed at:[facility] [address] [place], [place] [address] Comprehensive metabolic 2000 panel 4.5 mmol/L Normal 3.5-5.1 Comprehensi ve Internal Medicine Work Phone: Comment on above: Serial Specimen #1, #2 or #3? 1Test performed at:[facility] [address] [place], [place] [address] Comprehensive metabolic 2000 panel 135 mmol/L Abnormal 136-145 Comprehensi ve Internal Medicine Work Phone: Comment on above: Serial Specimen #1, #2 or #3? 1Test performed at:[facility] [address] [place], [place] [address] Erythrocyte Sed RateOrdered By: Materials Handler on 12-08-2014 SED RATE 14 mm/h Normal 0-30 [facility] Internal Medicine Work Phone: Erythrocyte Sed Rate 14 mm/h Normal 0-30 Comp rehensive Internal Medicine Work Phone: Comment on above: Test performed at:[facility] [address] [place] [address] FerritinOrdered By: Dorene cronin on 12-08-2014 Ferritin mass conc 102 ng/mL Normal 8-252 Compre hensive Internal Medicine Work Phone: Comment on above: Serial Specimen #1, #2 or #3? 1Test performed at:[facility] [address] [place] [address] HaptoglobinOrdered By: Ying Cordero on 12-08-2014 Haptoglobin mass conc 82 mg/dL Normal 34-200 Com prehensive Internal Medicine Work Phone: Comment on above: Performed at: [place] [id number] Director: Irvin Goins PhD, Phone: [phone] Is Patient Fasting? NTest performed at:[facility] [address] [place] [address] Immunoglobulins G/A/M/EOrder ed By: Materials Handler on 12-08-2014 IMMUNO A 1784 181 mg/dL Normal 91-414 Comprehensi ve Internal Medicine Work Phone: IMMUNO E 2173 11 {IU/mL} Normal 0-100 Comprehensi ve Internal Medicine Work Phone: IMMUNO G 1776 1068 mg/dL Normal 700-1600 Comprehensi ve Internal Medicine Work Phone: IMMUNOGL M 1792 55 mg/dL Normal 40-230 Comprehen sive Internal Medicine Work Phone: Immunoglobulins G/A/M/E 1068 mg/dL Normal 700-1600 [facility] Internal Medicine Work Phone: Comment on above: Is Patient Fasting? NTest performed at:[facility] [address] [place], [place] [id number] Immunoglobulins G/A/M/E 181 mg/dL Normal 91-414 [facility] Internal Medicine Work Phone: Comment on above: Is Patient Fasting? NTest performed at:[facility] [address] [place] [address] Immunoglobulins G/A/M/E 55 mg/dL Normal 40-230 [facility] Internal Medicine Work Phone: Comment on above: Is Patient Fasting? NTest performed at:[facility] [address] [place] [address] Immunoglobulins G/A/M/E 11 {IU/mL} Normal 0-100 [facility] Internal Medicine Work Phone: Comment on above: Is Patient Fasting? NTest performed at:[facility] [address] [place] [address] IronOrdered By: System Manag er on 12-08-2014 Iron mass conc 72 ug/dL Normal 50-170 [facility] Internal Medicine Work Phone: Comment on above: Serial Specimen #1, #2 or #3? 1Test performed at:[facility] [address] [place] [address] Iron Binding Capacity,TotalO rdered By: Materials Handler on 12-08-2014 Iron binding capacity mass conc 270 ug/dL Normal 250-450 [facility] Internal Medicine Work Phone: Comment on above: Serial Specimen #1, #2 or #3? 1Test performed at:[facility] [address] [place] [address] [place] Lambda Lt Chn Ser. Mon .Ordered By: Materials Handler on 12-08-2014 Immunoglobulin light chains.kappa.free/Imm unoglobulin light chains.lambda.free mass ratio (S) 20.70 mg/L Abnormal 3.30-19.40 [facility] Medicine Work Phone: Comment on above: Is Patient Fasting? NTest performed at:[facility] [address] [place] [address] Immunoglobulin light chains.kappa.free/Imm unoglobulin light chains.lambda.free mass ratio (S) Normal [facility] Medicine Work Phone: Comment on above: Scanned image report available in EMR Is Patient Fasting? NTest performed at:[facility] [address] [place] [address] Immunoglobulin light chains.kappa.free/Imm unoglobulin light chains.lambda.free mass ratio (S) 1.25 1 Normal 0.26-1.65 [facility] Medicine Work Phone: Comment on above: Is Patient Fasting? NTest performed at:[facility] [address] [place] [address] Immunoglobulin light chains.kappa.free/Imm unoglobulin light chains.lambda.free mass ratio (S) 16.60 mg/L Normal 5.71-26.30 [facility] Work Phone: Comment on above: Is Patient Fasting? NTest performed at:[facility] [address] [place] [address] LDHOrdered By: System Manage r on 12-08-2014 LDH enzyme act/vol 204 U/L Normal 84-246 [facility] Work Phone: Comment on above: Serial Specimen #1, #2 or #3? 1Test performed at:[facility] [address] [place] [address] MagnesiumOrdered By: Materials Handler on 12-08-2014 Magnesium mass conc 1.7 mg/dL Abnormal 1.8-2.4 Compr [facility] Internal Medicine Work Phone: Comment on above: Serial Specimen #1, #2 or #3? 1Test performed at:[facility] [address] [place] [address] Protein Electroph, SOrdered By: Materials Handler on 12-08-2014 Albumin mass conc 4.0 g/dL Normal 3.2-5.[address] [facility] Internal Medicine Work Phone: Comment on above: Is Patient Fasting? NTest performed at:[facility] [address] [place] [address] Albumin/Globulin mass ratio 1.5 {ratio} Normal 0.7-2.0 [facility] Internal Medicine Work Phone: Comment on above: Is Patient Fasting? NTest performed at:[facility] [address] [place] [address] ALPHA-1 GLOBUL 0.2 g/dL Normal 0.1-0.4 Comprehens [facility] Work Phone: ALPHA-2 GLOBUL 0.6 g/dL Normal 0.4-1.2 Comprehens [facility] Work Phone: BETA GLOBULIN 0.9 g/dL Normal 0.5-1.6 Comprehensi ve Internal Medicine Work Phone: Globulin Calculated mass conc (S) 2.6 g/dL Normal 2.0-4.5 [facility] Work Phone: Globulin mass conc (S) 2.6 g/dL Normal 2.0-4.5 [facility] Medicine Work Phone: Comment on above: Is Patient Fasting? NTest performed at:[facility] [address] [place] [address] INTERPRETATION Comment Normal Comprehens [facility] Work Phone: Comment on above: Protein electrophore sis scan will follow via computer,mail, or heavy equipment service technician delivery. The SPE pattern appe ars essentially unremarkable. Evidenceof monoclonal protein is not apparent. M-SPIKE Normal [facility] Internal Medicine Work Phone: Comment on above: Not Observed Protein mass conc 6.6 g/dL Normal 6.0-8.5 Compreh ensive Internal Medicine Work Phone: Comment on above: Is Patient Fasting? NTest performed at:[facility] [address] [place] [address] Protein Electroph, S 0.2 g/dL Normal 0.1-0.4 Comp rehensive Internal Medicine Work Phone: Comment on above: Is Patient Fasting? NTest performed at:[facility] [address] [place] [address] Protein Electroph, S 0.6 g/dL Normal 0.4-1.2 [facility] Internal Medicine Work Phone: Comment on above: Is Patient Fasting? NTest performed at:[facility] [address] [place] [address] Protein Electroph, S 0.9 g/dL Normal 0.5-1.6 [facility] Internal Medicine Work Phone: Comment on above: Is Patient Fasting? NTest performed at:[facility] [address] [place] [address] Protein Electroph, S Normal [facility] Internal Medicine Work Phone: Comment on above: Not Observed Scanned image report available in EMR Is Patient Fasting? NTest performed at:[facility] [address] [place] [address] Protein Electroph, S Comment Normal [facility] Work [facility]: Comment on above: Protein electrophore sis scan will follow via computer,mail, or heavy equipment service technician delivery. The SPE pattern appe ars essentially unremarkable. Evidenceof monoclonal protein is not apparent. Is Patient Fasting? NTest performed at:[facility] [address] [place] [address] Retic PanelOrdered By: Ying pierson Atg Architect on 12-08-2014 IM RET FRACTION 5.80 % Normal 3.00-15.90 [facility] Internal Medicine Work Phone: IPF 1.4 % Normal 1.0-7.9 [facility] Work Phone: Comment on above: Low PLT + Low IPF rowley ggest a bone marrow production disorderLow PLT + high IPF suggests peripheral destruction(e.g.ITP, TTP, HIT, DIC, autoimmune) or bone marrow recoveryTrending of serial IPF measurements is recommended whenevaluating for bone marrow responesValue above normal range indicates an increase in RBCcellular response from bone marrow. RET-HE 32.6 pg Normal 30-35 [facility] Work Phone: RETIC 1.62 % Abnormal 0.5-1.5 [facility] Work Phone: Retic Panel 1.62 % Abnormal 0.5-1.5 [facility] Work Phone: Comment on above: Test performed at:[facility] [address] [place] [address] Retic Panel 32.6 pg Normal 30-35 [facility] Work Phone: Comment on above: Test performed at:[facility] [address] [place] [address] Retic Panel 1.4 % Normal 1.0-7.9 [facility] Work Phone: Comment on above: Low PLT + Low IPF rowley ggest a bone marrow production disorderLow PLT + high IPF suggests peripheral destruction(e.g.ITP, TTP, HIT, DIC, autoimmune) or bone marrow recoveryTrending of serial IPF measurements is recommended whenevaluating for bone marrow responesValue above normal range indicates an increase in RBCcellular response from bone marrow. Test performed at:[facility] [address] [place] [address] Retic Panel 5.80 % Normal 3.00-15.90 [facility] Work Phone: Comment on above: Test performed at:[facility] [address] [place] [address] Thyroid Stim Hormone (TSH)Or dered By: Materials Handler on 12-08-2014 Thyrotropin Qn 2.82 {uIU/mL} Normal 0.358-3.74 Compreh ensive Internal Medicine Work Phone: Comment on above: Serial Specimen #1, #2 or #3? 1Test performed at:[facility] [address] [place] [address] Uric AcidOrdered By: Materials Handler on 12-08-2014 Urate mass conc 6.4 mg/dL Abnormal 2.6-6.0 Comprehen sive Internal Medicine Work Phone: Comment on above: Serial Specimen #1, #2 or #3? 1Test performed at:[facility] [address] [place] [address] Rapid Flu (98532 x 2)Ordered By: Donna Carrillo on 03-16-2014 FLUAV Ag IA Ql (Throat) Negative Normal [facility] Work Phone: Blood Glucose , Office ([phone])Ordered By: Ninoska Kemp on 04-30-2013 Glucose Glucometer molar conc (BldC) 100 1 Normal [facility] Work Phone: C-REACTIVE PROTEIN ([id number])Or dered By: Materials Handler on 04-30-2013 CRP mass conc 4.7 mg/L Normal 0.0-4.9 Comprehensi Internal Medicine Work Phone: Comment on above: PATIENT NOT FASTINGP ERFORMED BY: [employer] [place] [id number] CALCIFIDIOL (92537) VIT D 25 Ordered By: Materials Handler on 04-30-2013 25-Hydroxyvitamin D2+25-Hydroxyvitamin D3 mass conc 35.0 ng/mL Normal 30.0-100.0 [facility] Work Phone: Comment on above: Vitamin D deficiency has been defined by the [place] of[place]icine and an Endocrine Society practice guideline as alevel of serum 25-OH vitamin D less than 20 ng/mL (1,2).The Endocrine Society went on to further define vitamin Dinsufficiency as a level between 21 and 29 ng/mL (2).1. IOM ([place] of Medicine). 2010. Dietary reference intakes for calcium and D. [place]: The National Academies Press.2. Trevon MF, Sherrell JEFFERSON, Treva CORLEY, et al. Evaluation, treatment, and prevention of vitamin D deficiency: an Endocrine Society clinical practice guideline. JCEM. 2010; 96(7):1911-30. PATIENT NOT FASTINGP ERFORMED BY: [employer] [place] [id number] CBC (AUTO) (18801)Ordered By : Materials Handler on 04-30-2013 Erythrocyte distribution width Auto Ratio (RBC) 13.0 % Normal 12.3-15.4 [facility] Work Phone: Erythrocyte distribution width Ratio (RBC) 13.0 % Normal 12.3-15.4 [facility] Work Phone: Comment on above: PATIENT NOT FASTINGP ERFORMED BY: DAYDAY [facility] Vyyaiw4733 [facility] [id number] Hematocrit Auto Volume Fraction (Bld) 41.2 % Normal 34.0-46.6 [facility] Internal Medicine Work Phone: Hematocrit Volume Fraction (Bld) 41.2 % Normal 34.0-46.6 [facility] Work Phone: Comment on above: PATIENT NOT FASTINGP ERFORMED BY: DAYDAY Paul Efmlpi5136 [facility] [id number] Hemoglobin mass conc (Bld) 13.8 g/dL Normal 11.1-15.9 [facility] Work Phone: Comment on above: PATIENT NOT FASTINGP ERFORMED BY: DAYDAY Dangelolin6370 [facility] [id number] MCH Auto Entitic mass (RBC) 31.2 pg Normal 26.6-33.0 [facility] Work Phone: MCH Entitic mass (RBC) 31.2 pg Normal 26.6-33.0 [facility] Work Phone: Comment on above: PATIENT NOT FASTINGP ERFORMED BY: DAYDAY [facility] Mbfkzp7297 [facility] [id number] MCHC Auto mass conc (RBC) 33.5 g/dL Normal 31.5-35.7 [facility] Work Phone: MCHC mass conc (RBC) 33.5 g/dL Normal 31.5-35.[address] [facility] Internal Medicine Work Phone: Comment on above: PATIENT NOT FASTINGP ERFORMED BY: CB [facility] Oneexp6537 [address] [facility] [id number] MCV Auto Entitic volume (RBC) 93 fL Normal 79-97 [facility] Work Phone: MCV Entitic volume (RBC) 93 fL Normal 79-97 [facility] Work Phone: Comment on above: PATIENT NOT FASTINGP ERFORMED BY: CB [facility] Miyxfy0477 [address] [facility] [id number] Platelets #/vol (Bld) 232 {x10E3/uL} Normal 155-379 [facility] Work Phone: Comment on above: PATIENT NOT FASTINGP ERFORMED BY: CB [facility] Yhveaw5309 [address] [facility] [id number] Platelets Auto #/vol (Bld) 232 {x10E3/uL} Normal 155-379 [facility] Work Phone: RBC #/vol (Bld) 4.42 {x10E6/uL} Normal 3.77-5.28 [facility] Work Phone: Comment on above: PATIENT NOT FASTINGP ERFORMED BY: [facility] Woekmm6712 [address] [facility] [id number] RBC Auto #/vol (Bld) 4.42 {x10E6/uL} Normal 3.77-5.28 [facility] Work Phone: WBC #/vol (Bld) 7.5 {x10E3/uL} Normal 3.4-10.8 [facility] Work Phone: Comment on above: PATIENT NOT FASTINGP ERFORMED BY: CB [facility] Jpxpvl4353 [facility] [id number] WBC Auto #/vol (Bld) 7.5 {x10E3/uL} Normal 3.4-10.8 [facility] Work Phone: Folate ([id number])Ordered By: Sy stem Atg Architect on 04-30-2013 Folate mass conc ng/mL Normal Comprehe nsive Internal Medicine Work Phone: Comment on above: A serum folate juany ntration of less than 3.1 ng/mL isconsidered to represent clinical deficiency. PATIENT NOT FASTINGP ERFORMED BY: DAYDAY [facility] Dxihcx3131 [facility] [place] [id number] HgA1C , Office ([id number])Ordere d By: Ninoska Kemp on 04-30-2013 Hemoglobin A1c/Hemoglobin.total mass fraction (Bld) 5.9 % Normal 4.6 - 7.1 Comprehensiv e Internal Medicine Work Phone: METABOLIC PANEL, COMPREHENSI VE ([id number])Ordered By: Materials Handler on 04-30-2013 Albumin mass conc 4.4 g/dL Normal 3.5-4.8 Compreh ensive Internal Medicine Work Phone: Comment on above: PATIENT NOT FASTINGP ERFORMED BY: DAYDAY [facility] Waabtv8251 [address] [facility] [id number] Information: [id number] Albumin/Globulin mass ratio 1.6 {ratio} Normal 1.1-2.5 [facility] Work Phone: Comment on above: PATIENT NOT FASTINGP ERFORMED BY: CB [facility] Kjnvhb2853 [address] An[employer] InnovationDuin [place] [id number] Information: [id number] ALP enzyme act/vol 76 [iU]/L Normal 39-117 [facility] Internal Medicine Work Phone: Comment on above: PATIENT NOT FASTINGP ERFORMED BY: CB [facility] Mrwhdh5146 [address] Anser InnovationNovant Health Forsy[facility] Medical Centerin [place] [id number] Information: [id number] ALT enzyme act/vol 19 [iU]/L Normal 0-32 [facility] Internal Medicine Work Phone: Comment on above: PATIENT NOT FASTINGP ERFORMED BY: CB [facility] Jtfhzh3194 [address] [facility] HospitalD[facility] [place] [id number] Information: [id number] AST enzyme act/vol 26 [iU]/L Normal 0-40 [facility] Internal Medicine Work Phone: Comment on above: PATIENT NOT FASTINGP ERFORMED BY: CB [facility] Viljse3213 [address] [facility] [place] [id number] Information: [id number] Bilirubin mass conc 0.4 mg/dL Normal 0.0-1.2 Compr ehensive Internal Medicine Work Phone: Comment on above: PATIENT NOT FASTINGP ERFORMED BY: DAYDAY [facility] Icpccu5479 [address] [facility] [id number] Information: [id number] Calcium mass conc 9.9 mg/dL Normal 8.6-10.2 Compreh ensive Internal Medicine Work Phone: Comment on above: PATIENT NOT FASTINGP ERFORMED BY: DAYDAY [facility] Wwxvde1562 [address] [facility] [id number] Information: [id number] Chloride molar conc 99 mmol/L Normal 97-108 Compr ensive Internal Medicine Work Phone: Comment on above: PATIENT NOT FASTINGP ERFORMED BY: DAYDAY [facility] Codobe2014 [address] [facility] [id number] Information: [id number] CO2 molar conc 25 mmol/L Normal 19-28 Comprehens burke Internal Medicine Work Phone: Comment on above: PATIENT NOT FASTINGP ERFORMED BY: DAYDAY [facility] Gwiwyt6767 [address] [facility] [id number] Information: [id number] Creatinine mass conc 0.99 mg/dL Normal 0.57-1.00 [facility] Work Phone: Comment on above: PATIENT NOT FASTINGP ERFORMED BY: CB [facility] Kvmfgx2057 [address] [facility] [id number] Information: [id number] GFR/1.73 sq M predicted among blacks CKD-EPI vol rate/area (S/P/Bld) 64 mL/min/1.73 Normal Comprehensiv e Internal Medicine Work Phone: Comment on above: PATIENT NOT FASTINGP ERFORMED BY: DAYDAY [facility] Lxmmpd9260 [facility] [id number] Information: [id number] GFR/1.73 sq M predicted among non-blacks CKD-EPI vol rate/area (S/P/Bld) 56 mL/min/1.73 Abnormal [facility] Work Phone: Comment on above: PATIENT NOT FASTINGP ERFORMED BY: DAYDAY [facility] Aqhovr9286 [facility] [id number] Information: [id number] Globulin Calculated mass conc (S) 2.7 g/dL Normal 1.5-4.5 [facility] Work Phone: Globulin mass conc (S) 2.7 g/dL Normal 1.5-4.5 [facility] Work Phone: Comment on above: PATIENT NOT FASTINGP ERFORMED BY: DAYDAY [facility]6370 [facility] [id number] Information: [id number] Glucose mass conc 85 mg/dL Normal 65-99 Compreh ensive Internal Medicine Work Phone: Comment on above: PATIENT NOT FASTINGP ERFORMED BY: DAYDAY [facility] Hpmvfz7857 [facility] [id number] Information: [id number] Potassium molar conc 5.0 mmol/L Normal 3.5-5.2 Comp rehensive Internal Medicine Work Phone: Comment on above: PATIENT NOT FASTINGP ERFORMED BY: [facility] Wwlnfe0848 [facility] [id number] Information: [id number] Protein mass conc 7.1 g/dL Normal 6.0-8.5 Compreh ensive Internal Medicine Work Phone: Comment on above: PATIENT NOT FASTINGP ERFORMED BY: [facility] Cdlaxo6279 [facility] [id number] Information: [id number] Sodium molar conc 138 mmol/L Normal 134-144 Compreh ensive Internal Medicine Work Phone: Comment on above: PATIENT NOT FASTINGP ERFORMED BY: CB [facility] Ljhvgg5839 [address] RoadDublin [place] [id number] Information: [id number] Urea nitrogen mass conc 17 mg/dL Normal 8- [facility] Work Phone: Comment on above: PATIENT NOT FASTINGP ERFORMED BY: CB [facility] Axslph4368 [address] RoadDublin [place] [id number] Information: [id number] Urea nitrogen/Creatinine mass ratio 17 mg/mg Normal - [facility] Work Phone: Comment on above: PATIENT NOT FASTINGP ERFORMED BY: CB [facility] Jpuqcj4992 [address] RoadDublin [place] [id number] Information: [id number] SED RATE ERYTHROCYTE (14769) Ordered By: Materials Handler on 04-30-2013 ESR Velocity (Bld) 6 mm/h Normal 0-40 [facility] Internal Medicine Work Phone: Comment on above: PATIENT NOT FASTINGP ERFORMED BY: CB [facility] Snelpo6370 [address] [place] [id number] TSH (98151)Ordered By: Ying m Atg Architect on 04-30-2013 Thyrotropin Qn 2.540 {uIU/mL} Normal 0.450-4.50 0 [facility] Work Phone: Comment on above: PATIENT NOT FASTINGP ERFORMED BY: CB [facility] Maaocj2262 [address] Road[address] [place] [id number] VITAMIN B-12 (CYANOCOBALAMIN ) (00094)Ordered By: Materials Handler on 04-30-2013 Cobalamin (Vitamin B12) mass conc 520 pg/mL Normal 211-946 [facility] Work Phone: Comment on above: PATIENT NOT FASTINGP ERFORMED BY: CB [facility] Rduzhp4459 [address] [place] [id number] HgA1C , Office ([id number])Ordere d By: Ninoska Kemp on 12-27-2012 Hemoglobin A1c/Hemoglobin.total mass fraction (Bld) 6.0 % Normal 4.6 - 7.1 Comprehensiv e Internal Medicine Work Phone: ABDOMEN COMPLETEOrdered By: Materials Handler on 12-16-2012 ABDOMEN COMPLETE See Note Normal Comprehe nsive Internal Medicine Work Phone: Comment on above: STUDY: ABDOMINAL ULT RASOUND REASON FOR EXAM: Female, 77 years old. Jaundice. TECHNIQUE: Transabdominal ultrasound was performed with real-time andstatic wallace scale imaging. TECHNICAL QUALITY: Adequate. COMPARISON: None. FINDINGS: Liver: The liver measures 15.0 cm. There is increased echogenicityconsistent with fatty infiltration. The bile ducts are within normallimits. There is hepatic color flow. The direction of portal flow ishepatopetal. There is no demonstrated mass lesion. Gallbladder: Normal distended gallbladder. The gallbladder wallmeasures2.0 mm. There is a negative sonographic Luo's sign. There is nopericholecystic fluid. There are small echogenic foci adherent to theanterior wall of the gallbladder with posterior ringdown artifacts. Thisis suggestive of adenomyomatosis. Common Bile Duct (C.B.D.): The common bile duct measures 3.0 mm. Pancreas: Normal size of the head, body of the pancreas. The tailportion is obscured due to overlying bowel gas. There is normalechogenicity of the pancreas. There is no demonstrated pancreatic massorcyst. Spleen: Mild splenomegaly. The spleen measures 11.4 cm x 4.2 cm x 4.1cm.cm. There are multiple calcified granulomas. Right Kidney: Normal size of the right kidney. The right obvelepnvjjpxz03.7 cm. Normal renal cortex. The right cortex measures 1.2 cm. Thereisno demonstrated renal mass or cyst. There is no right hydronephrosis. Left Kidney: Normal size of the left kidney. The left kidney kzpwkqoj12.3cm. Normal renal cortex. The left cortex measures 1.0 cm. There is nodemonstrated renal mass or cyst. There is no left hydronephrosis. Aorta: Unremarkable. I.V.C.: The IVC is patent. There is no ascites. IMPRESSION:Fatty infiltration of the liver appearFindings suggestive of adenomyomatosis of the gallbladder. Correlationwith nuclear medicine hepatobiliary scan is recommended. Signed:Grabiel Gallagher M.D.December 16, 2012 at 12:39:21 PM [id number] Signed GP/GP If you are the referring physician and would like to consult with theradiologist who provided this interpretation, please contact Milagros Reyes at [phone]. If this radiologist is unavailable, youwill be directed to another radiologist to assist. If you are a patient with a question regarding this report, pleasecontactyour referring physician directly. Professional Interpretation Provided By: [employer], Phone , These documents contain legally protected and confidential healthinformation intended only for the use of the individual or entity namedabove. If you are not the intended recipient, you are hereby notifiedthatany disclosure, copying, distribution, or other use of these documents isstrictly prohibited. If you have received this information in error,pleasenotify the sender immediately and arrange for the return or destructionofthese documents. Dictated on 12/16/12 1239 by Nitesh Gallagher MDranscribed on 12/16/12 1242 by ITS IMPORTSign by Grabiel Gallagher MD on 12/16/12 1243 Sign by: Grabiel Gallagher MD Antinuclear Antibodies Direc tOrdered By: Materials Handler on 12-11-2012 Nuclear Ab Ql (S) Negative Normal Compreh ensive Internal Medicine Work Phone: Comment on above: PERFORMED BY: [employer] [address] [id number] C-Reactive Protein, QuantOrd ered By: Materials Handler on 12-11-2012 CRP mass conc 9.5 mg/L Abnormal 0.0-4.9 Comprehensi ve Internal Medicine Work Phone: Comment on above: PERFORMED BY: [facility] [id number] CBC With Differential/Platel etOrdered By: Materials Handler on 12-11-2012 Basophils #/vol (Bld) 0.0 {x10E3/uL} Normal 0.0-0.2 [facility] Work Phone: Comment on above: PERFORMED BY: [facility] [id number] Basophils Auto #/vol (Bld) 0.0 {x10E3/uL} Normal 0.0-0.2 [facility] Work Phone: Basophils/100 WBC (Bld) 0 % Normal 0-3 [facility] Work Phone: Comment on above: PERFORMED BY: [facility] [id number] Basophils/100 WBC Auto (Bld) 0 % Normal 0-3 [facility] Work Phone: Eosinophils #/vol (Bld) 0.2 {x10E3/uL} Normal 0.0-0.4 [facility] Work Phone: Comment on above: PERFORMED BY: [facility] [id number] Eosinophils Auto #/vol (Bld) 0.2 {x10E3/uL} Normal 0.0-0.4 [facility] Work Phone: Eosinophils/100 WBC (Bld) 2 % Normal 0-5 [facility] Work Phone: Comment on above: PERFORMED BY: [facility] [id number] Eosinophils/100 WBC Auto (Bld) 2 % Normal 0-5 [facility] Work Phone: Erythrocyte distribution width Auto Ratio (RBC) 13.2 % Normal 12.3-15.4 [facility] Work Phone: Erythrocyte distribution width Ratio (RBC) 13.2 % Normal 12.3-15.4 [facility] Work Phone: Comment on above: PERFORMED BY: [employer] [place] [id number] Hematocrit Auto Volume Fraction (Bld) 37.8 % Normal 34.0-46.6 [facility] Internal Medicine Work Phone: Hematocrit Volume Fraction (Bld) 37.8 % Normal 34.0-46.6 [facility] Work Phone: Comment on above: PERFORMED BY: [employer] [place] [id number] Hemoglobin mass conc (Bld) 12.8 g/dL Normal 11.1-15.9 [facility] Work Phone: Comment on above: PERFORMED BY: [employer] [place] [id number] Immature granulocytes #/vol (Bld) 0.0 {x10E3/uL} Normal 0.0-0.1 [facility] Work Phone: Comment on above: PERFORMED BY: [employer]70 [address] Anser InnovationNovant Health Forsy[facility] Medical Centerin [place] [id number] Immature granulocytes/100 WBC (Bld) 0 % Normal 0-2 [facility] Work Phone: Comment on above: PERFORMED BY: [employer]70 [address] Anser InnovationNov[facility] Health Fors[facility] Medical Centerin [place] [id number] Lymphocytes #/vol (Bld) 2.2 {x10E3/uL} Normal 0.7-3.1 [facility] Work Phone: Comment on above: PERFORMED BY: [employer] [facility] [place] [id number] Lymphocytes Auto #/vol (Bld) 2.2 {x10E3/uL} Normal 0.7-3.1 [facility] Work Phone: Lymphocytes/100 WBC (Bld) 19 % Normal 14-46 [facility] Work Phone: Comment on above: PERFORMED BY: [employer]70 [address] Anser InnovationFirst[facility] [id number] Lymphocytes/100 WBC Auto (Bld) 19 % Normal 14-46 [facility] Work Phone: MCH Auto Entitic mass (RBC) 30.8 pg Normal 26.6-33.0 [facility] Work Phone: MCH Entitic mass (RBC) 30.8 pg Normal 26.6-33.0 [facility] Work Phone: Comment on above: PERFORMED BY: [facility] [id number] MCHC Auto mass conc (RBC) 33.9 g/dL Normal 31.5-35.7 [facility] Work Phone: MCHC mass conc (RBC) 33.9 g/dL Normal 31.5-35.7 [facility] Internal Medicine Work Phone: Comment on above: PERFORMED BY: [facility] [id number] MCV Auto Entitic volume (RBC) 91 fL Normal 79-97 [facility] Work Phone: MCV Entitic volume (RBC) 91 fL Normal 79-97 [facility] Work Phone: Comment on above: PERFORMED BY: [facility] [id number] Monocytes #/vol (Bld) 0.6 {x10E3/uL} Normal 0.1-0.9 [facility] Work Phone: Comment on above: PERFORMED BY: [facility] [id number] Monocytes Auto #/vol (Bld) 0.6 {x10E3/uL} Normal 0.1-0.9 [facility] Work Phone: Monocytes/100 WBC (Bld) 5 % Normal 4-12 [facility] Work Phone: Comment on above: PERFORMED BY: [facility] [id number] Monocytes/100 WBC Auto (Bld) 5 % Normal 4-12 [facility] Work Phone: Neutrophils #/vol (Bld) 8.2 {x10E3/uL} Abnormal 1.4-7.0 [facility] Work Phone: Comment on above: PERFORMED BY: [facility] [id number] Neutrophils Auto #/vol (Bld) 8.2 {x10E3/uL} Abnormal 1.4-7.0 [facility] Work Phone: Neutrophils/100 WBC (Bld) 74 % Normal 40-74 [facility] Work Phone: Comment on above: PERFORMED BY: [facility] [id number] Neutrophils/100 WBC Auto (Bld) 74 % Normal 40-74 [facility] Work Phone: Platelets #/vol (Bld) 230 {x10E3/uL} Normal 155-379 [facility] Work Phone: Comment on above: PERFORMED BY: [employer]70 [facility] [id number] Platelets Auto #/vol (Bld) 230 {x10E3/uL} Normal 155-379 [facility] Work Phone: RBC #/vol (Bld) 4.15 {x10E6/uL} Normal 3.77-5.28 Comp rehensive Internal Medicine Work Phone: Comment on above: PERFORMED BY: Mindmancerlin6370 [facility] [id number] RBC Auto #/vol (Bld) 4.15 {x10E6/uL} Normal 3.77-5.28 [facility] Work Phone: WBC #/vol (Bld) 11.3 {x10E3/uL} Abnormal 3.4-10.8 Comp rehensive Internal Medicine Work Phone: Comment on above: PERFORMED BY: Bio[employer]6370 [facility] [id number] WBC Auto #/vol (Bld) 11.3 {x10E3/uL} Abnormal 3.4-10.8 [facility] Work Phone: Comp. Metabolic Panel (14)Or dered By: Materials Handler on 12-11-2012 Albumin mass conc 4.3 g/dL Normal 3.5-4.8 [facility]: Comment on above: PERFORMED BY: [employer] ShoutWireblin [place] [id number] Albumin/Globulin mass ratio 1.6 {ratio} Normal 1.1-2.5 [facility] Work Phone: Comment on above: PERFORMED BY: [employer]bl[place] [id number] ALP enzyme act/vol 76 [iU]/L Normal 45-108 [facility] Work Phone: Comment on above: PERFORMED BY: [employer] [place] [id number] ALT enzyme act/vol 17 [iU]/L Normal 0-32 [facility] Internal Medicine Work Phone: Comment on above: PERFORMED BY: [employer] [place] [id number] AST enzyme act/vol 22 [iU]/L Normal 0-40 [facility] Internal Medicine Work Phone: Comment on above: PERFORMED BY: [employer]70 Health [facility] [place] [id number] Bilirubin mass conc 0.5 mg/dL Normal 0.0-1.2 [facility] Internal Medicine Work Phone: Comment on above: PERFORMED BY: [employer]70 Health In[facility] [place] [id number] Calcium mass conc 9.8 mg/dL Normal 8.6-10.2 [facility] Work Phone: Comment on above: PERFORMED BY: [employer]70 [facility] [employer] [id number] Chloride molar conc 101 mmol/L Normal 97-108 Compr ensive Internal Medicine Work Phone: Comment on above: PERFORMED BY: Bio[employer]6370 [address] RoadBee Cave Gamesblin [place] [id number] CO2 molar conc 22 mmol/L Normal 19-28 [facility] Internal [facility] Work Phone: Comment on above: PERFORMED BY: Bio[employer]6370 [address] ShoutWirebl[place] [id number] Creatinine mass conc 0.95 mg/dL Normal 0.57-1.00 Comp rehensive Internal Medicine Work Phone: Comment on above: PERFORMED BY: Bioceptive6370 [address] RoadBee Cave Gamesblin [place] [id number] GFR/1.73 sq M predicted among blacks CKD-EPI vol rate/area (S/P/Bld) 68 mL/min/1.73 Normal Comprehensiv e Internal Medicine Work Phone: Comment on above: PERFORMED BY: Bio[employer]6370 [address] RoadBee Cave Gamesblin [place] [id number] GFR/1.73 sq M predicted among non-blacks CKD-EPI vol rate/area (S/P/Bld) 59 mL/min/1.73 Abnormal [facility] Work Phone: Comment on above: PERFORMED BY: [employer]6370 [address] Sh[address] [id number] Globulin Calculated mass conc (S) 2.7 g/dL Normal 1.5-4.5 [facility] Work Phone: Globulin mass conc (S) 2.7 g/dL Normal 1.5-4.5 [facility] Work Phone: Comment on above: PERFORMED BY: Bio[employer]6[address] Sh[address] [id number] Glucose mass conc 84 mg/dL Normal 65-99 Compreh ensive Internal Medicine Work Phone: Comment on above: PERFORMED BY: Bio[employer]6370 Health Informaticsbl[place] [id number] Potassium molar conc 4.8 mmol/L Normal 3.5-5.2 Comp rehensive Internal Medicine Work Phone: Comment on above: PERFORMED BY: Bio[employer]6370 [facility] [id number] Protein mass conc 7.0 g/dL Normal 6.0-8.5 Compreh ensive Internal Medicine Work Phone: Comment on above: PERFORMED BY: [employer]6370 [facility] [id number] Sodium molar conc 141 mmol/L Normal 134-144 Compreh ensive Internal Medicine Work Phone: Comment on above: PERFORMED BY: [employer]70 [facility] [id number] Urea nitrogen mass conc 13 mg/dL Normal 8-27 [facility] Work Phone: Comment on above: PERFORMED BY: [employer]70 [facility] [id number] Urea nitrogen/Creatinine mass ratio 14 mg/mg Normal 11-26 [facility] Work Phone: Comment on above: PERFORMED BY: [employer]70 [facility] [id number] Cytomegalovirus (CMV) Ab, Ig GOrdered By: Materials Handler on 12-11-2012 CMV IgG IA Qn 8.8 {index} Abnormal 0.0-0.8 [facility] Work Phone: Comment on above: Negative <0.9 Equivo anel 0.9 - 1.0 Positive >1.0 PERFORMED BY: [employer]70 [facility] [id number] Cytomegalovirus (CMV) Ab, Ig MOrdered By: Materials Handler on 12-11-2012 Cytomegalovirus (CMV) Ab, IgM <0.9 Normal 0.0-0.8 [facility] Work Phone: Comment on above: Negative <0.9 Equivo anel 0.9 - 1.0 Positive >1.0 PERFORMED BY: Bio[employer]6370 [facility] [id number] EBV Acute Infection Antibodi esOrdered By: Materials Handler on 12-11-2012 EBV Acute Infection Antibodies 0.5 {AI} Normal 0.0-0.8 [facility] Work Phone: Comment on above: Negative <0.9 Equivo anel 0.9 - 1.0 Positive >1.0 PERFORMED BY: [employer]70 [facility] [id number] EBV Acute Infection Antibodies <0.2 Normal 0.0-0.8 [facility] Work Phone: Comment on above: Negative <0.9 Equivo anel 0.9 - 1.0 Positive >1.0 PERFORMED BY: [employer]70 [facility] [id number] EBV Acute Infection Antibodies >8.0 Abnormal 0.0-0.8 [facility] Work Phone: Comment on above: Negative <0.9 Equivo anel 0.9 - 1.0 Positive >1.0 PERFORMED BY: [facility] [id number] EBV Acute Infection Antibodies SPRCS Normal [facility] Work Phone: Comment on above: EBV Interpretation C delcid . Interpretation VCA-IgM EA-IgG VCA- IgG NA-ABS . Susceptible - - - - Acute Infection + +or- +or- - Convalescent Phase +or- +or- + + Chronic or Reactivated - + + +or- Old Infection - - +or- + + Antibody Present - Antibody Absent PERFORMED BY: [facility] [id number] Rheumatoid Arthritis FactorO rdered By: Materials Handler on 12-11-2012 Rheumatoid factor Qn 8.3 {IU/mL} Normal 0.0-13.9 [facility] prehensive Internal Medicine Work Phone: Comment on above: PERFORMED BY: [facility] [id number] Sedimentation Rate-Westergre nOrdered By: Materials Handler on 12-11-2012 ESR Velocity (Bld) 19 mm/h Normal 0-40 [facility] Internal [facility] Work Phone: Comment on above: PERFORMED BY: Freta.lá [facility] [id number] TSHOrdered By: System Manage r on 12-11-2012 Thyrotropin Qn 2.660 {uIU/mL} Normal 0.450-4.50 0 [facility] Work Phone: Comment on above: PERFORMED BY: [employer] Romaine Vqkewk4629 [facility] [id number] URINE LISSETTE CULTURE-IDENTIFICA [place] ([id number])Ordered By: Materials Handler on 12-11-2012 Bacteria identified Cx Nom (U) Final report Normal [facility] Work Phone: Comment on above: PATIENT NOT FASTINGP ERFORMED BY: [facility] Wlwlxw2358 [facility] [id number] Information: [id number] Bacteria identified Cx Nom (U) Staphylococcus aureus Normal [facility] Work Phone: Comment on above: 3,000 Colonies/mLBas ed on resistance to penicillin and susceptibility to oxacillinthis isolate would be susceptible to:* Penicillinase-stable penicillins; such as: Cloxacillin Dicloxacillin Nafcillin* Beta-lactam/beta-lactamase inhibitor combinations; such as: Amoxicillin-clavulanic acid Ampicillin-sulbactam* Antistaphylococcal cephems; such as: Cefaclor Cefuroxime* Antistaphylococcal carbapenems; such as: Imipenem Meropenem PATIENT NOT FASTINGP ERFORMED BY: [facility] Yhrvut9480 [facility] [id number] Information: [id number] Bacteria identified Cx Nom (U) Enterococcus faecalis Normal [facility] Work Phone: Comment on above: 10,000-25,000 colony forming units per mLNote: this isolate is vancomycin-susceptible.This information is provided for epidemiologic purposesonly: vancomycin is not among the antibioticsrecommended for therapy of urinary tract infectionscaused by Enterococcus.For Enterococcus species, cephalosporins, aminoglycosides (except forhigh-level resistance screening), clindamycin, and trimethoprim-sulfamethoxazole are not effective clinically. Fluoroquinolones areused primarily for treating urinary tract infections. (CLSI, Q912-P21,2009) PATIENT NOT FASTINGP ERFORMED BY: [facility] Dcypnv1124 [facility] [id number] Information: [id number] Bacteria identified Cx Nom (U) Escherichia coli Normal [facility] Work Phone: Comment on above: 2,000 Colonies/mL PATIENT NOT FASTINGP ERFORMED BY: [facility] Papkqa5310 [facility] [id number] Information: [id number] Other Antibiotic [facility] prehensive Internal Medicine Work Phone: Comment on above: S = Susceptibl e; I = Intermediate; R = Resistant P = Positive; N = Negative MICS are expressed in micrograms per mL Antibiotic RSLT#1 RSLT#2 RSLT#3 RSLT#4Amoxicillin/Clavulanic Acid SAmpicillin SCefazolin SCefepime SCeftriaxone SCefuroxime SCephalothin SCiprofloxacin S S RESBL NErtapenem SGentamicin S SImipenem SLevofloxacin S S ILinezolid SMoxifloxacin INitrofurantoin S S SOxacillin SPenicillin S RPiperacillin SQuinupristin/Dalfopristin SRifampin STetracycline S R STobramycin STrimethoprim/Sulfa S SVancomycin S S PATIENT NOT FASTINGP ERFORMED BY: [facility] Hxedsa4482 [facility] [id number] Information: [id number] Urinalysis, Office ([id number])Or dered By: Lucinda Colbert on 12-11-2012 Bilirubin Ql (U) Negative Normal Comprehe nsive Internal Medicine Work Phone: Glucose Test strip mass conc (U) Negative Normal [facility] Work Phone: Hemoglobin Ql (U) Negative Normal Compreh ensive Internal Medicine Work Phone: Hemoglobin Test strip Ql (U) Negative Normal [facility] Work Phone: Ketones Ql (U) Negative Normal [facility] Work Phone: Leukocyte esterase Test strip Ql (U) Small Normal [facility] Work Phone: Nitrite Ql (U) Negative Normal [facility] Work Phone: Nitrite Test strip Ql (U) Negative Normal [facility] Work Phone: pH (U) 7.0 [pH] Normal [facility] Work Phone: pH Test strip (U) 7.0 [pH] Normal Compreh ensive Internal Medicine Work Phone: Protein Ql (U) Negative Normal [facility] Work Phone: Protein Test strip Ql (U) Negative Normal [facility] Work Phone: Specific gravity Relative Density (U) 1.015 1 Normal Comprehensi ve Internal Medicine Work Phone: Urobilinogen mass/time (24H U) Normal Normal [facility] Work Phone: Vitamin B12 and FolateOrdere d By: Materials Handler on 12-11-2012 Cobalamin (Vitamin B12) mass conc 485 pg/mL Normal 211-946 [facility] Work Phone: Comment on above: PERFORMED BY: [employer]6370 [employer] [id number] Folate mass conc 18.1 ng/mL Normal Comprehe nsive Internal Medicine Work Phone: Comment on above: A serum folate juany ntration of less than 3.1 ng/mL isconsidered to represent clinical deficiency. PERFORMED BY: [employer] [place] [id number] Vitamin D, 25-HydroxyOrdered By: Materials Handler on 12-11-2012 25-Hydroxyvitamin D2+25-Hydroxyvitamin D3 mass conc 34.1 ng/mL Normal 30.0-100.0 [facility] Work Phone: Comment on above: Vitamin D deficiency has been defined by the [place] of[place]icine and an Endocrine Society practice guideline as alevel of serum 25-OH vitamin D less than 20 ng/mL (1,2).The Endocrine Society went on to further define vitamin Dinsufficiency as a level between 21 and 29 ng/mL (2).1. IOM ([place] of [employer]). 2010. Dietary reference intakes for calcium and D. [place]: The National Academies Press.2. Trevon MF, Sherrell JEFFERSON, Treva CORLEY, et al. Evaluation, treatment, and prevention of vitamin D deficiency: an Endocrine Society clinical practice guideline. JCEM. 2010; 96(7):1911-30. PERFORMED BY: [employer] Uasbdb5065 [facility] [id number] BILAT SCRN DIGITAL & CADOrde red By: Materials Handler on 10-10-2012 BILAT SCRN DIGITAL & CAD See Note Normal [facility] Work Phone: Comment on above: MAMMOGRAPHY - BILATE RAL SCREENING REASON FOR EXAM: Female, 77 years old. Routine annual screeningexamination. PERTINENT HISTORY: Non-contributory. TECHNIQUE: Digital examination. Mediolateral oblique (MLO) andcraniocaudad (CC) views of both breasts were obtained. CAD: CAD wasperformed on this study. COMPARISON: Comparison is made with prior outside examination datedNove2010 and January 20, 2010. FINDINGS:The breast composition is composed of scattered fibroglandular tissuesranging from 25% to 50% of the breast. There are no dominant masses or suspicious calcifications. No other significant abnormalities are identified. There has been nosignificant change since the prior study. IMPRESSION:Stable bilateral screening mammogram. Yearly follow-up recommended. (A) ASSESSMENT CATEGORY:BIRADS Category 2: Benign finding(s). A letter regarding these resultswill be sent to the patient by the facility within 30 days. Approximately 10% of breast cancers are not detected by mammography. Anormal mammogram should not delay biopsy of a clinically suspiciousabnormality. Signed:Grabiel Gallagher M.D.October 14, 2012 at 1:00:27 PM [id number] Signed GP/GP If you are the referring physician and would like to consult with theradiologist who provided this interpretation, please contact Milagros Reyes at [phone]. If this radiologist is unavailable, youwill be directed to another radiologist to assist. If you are a patient with a question regarding this report, pleasecontactyour referring physician directly. Professional Interpretation Provided By: [employer], Phone , These documents contain legally protected and confidential healthinformation intended only for the use of the individual or entity namedabove. If you are not the intended recipient, you are hereby notifiedthatany disclosure, copying, distribution, or other use of these documents isstrictly prohibited. If you have received this information in error,pleasenotify the sender immediately and arrange for the return or destructionofthese documents. Dictated on 10/14/12 1300 by Aileen ALCALA,Niteshranscribed on 10/14/12 1303 by ITS IMPORTSign by Grabiel Gallagher MD on 10/14/12 1304 Sign by: Grabiel Gallagher MD Blood Glucose , Office ([phone])Ordered By: Ninoska Kemp on 10-07-2012 Glucose Glucometer molar conc (BldC) 92 1 Normal [facility] Work Phone: CBC WITH MANUAL DIFF ([id number]) Ordered By: Materials Handler on 10-07-2012 Basophils #/vol (Bld) 0.1 {x10E3/uL} Normal 0.0-0.2 [facility] Work Phone: Comment on above: PATIENT WAS FASTINGP ERFORMED BY: [facility]Co[facility] CenterPapnhu7849 [facility] [id number] Information: [id number] Basophils Auto #/vol (Bld) 0.1 {x10E3/uL} Normal 0.0-0.2 [facility] Work Phone: Basophils/100 WBC (Bld) 1 % Normal 0-3 [facility] Work Phone: Comment on above: PATIENT WAS FASTINGP ERFORMED BY: DAYDAY [place] [id number] [facility] [id number] Information: [id number] Basophils/100 WBC Auto (Bld) 1 % Normal 0-3 [facility] Work Phone: Eosinophils #/vol (Bld) 0.2 {x10E3/uL} Normal 0.0-0.4 [facility] Work Phone: Comment on above: PATIENT WAS FASTINGP ERFORMED BY: DAYDAY [place] [id number] [facility] [id number] Information: [id number] Eosinophils Auto #/vol (Bld) 0.2 {x10E3/uL} Normal 0.0-0.4 [facility] Work Phone: Eosinophils/100 WBC (Bld) 3 % Normal 0-7 [facility] Work Phone: Comment on above: PATIENT WAS FASTINGP ERFORMED BY: DAYDAY [place] [address]7570 [facility] [id number] Information: [id number] Eosinophils/100 WBC Auto (Bld) 3 % Normal 0-7 [facility] Work Phone: Erythrocyte distribution width Auto Ratio (RBC) 13.0 % Normal 12.3-15.4 [facility] Work Phone: Erythrocyte distribution width Ratio (RBC) 13.0 % Normal 12.3-15.4 [facility] Work Phone: Comment on above: PATIENT WAS FASTINGP ERFORMED BY: [address] [id number] Information: [id number] Hematocrit Auto Volume Fraction (Bld) 37.6 % Normal 34.0-46.6 [facility] Work Phone: Hematocrit Volume Fraction (Bld) 37.6 % Normal 34.0-46.6 [facility] Work Phone: Comment on above: PATIENT WAS FASTINGP ERFORMED BY: DAYDAY [address] [id number] Information: [id number] Hemoglobin mass conc (Bld) 12.8 g/dL Normal 11.1-15.9 [facility] Work Phone: Comment on above: PATIENT WAS FASTINGP ERFORMED BY: [address] [id number] Information: [id number] Immature granulocytes #/vol (Bld) 0.0 {x10E3/uL} Normal 0.0-0.1 [facility] Work Phone: Comment on above: PATIENT WAS FASTINGP ERFORMED BY: [address] [id number] Information: [id number] Immature granulocytes/100 WBC (Bld) 0 % Normal 0-2 [facility] Work Phone: Comment on above: PATIENT WAS FASTINGP ERFORMED BY: [address] [id number] Information: [id number] Lymphocytes #/vol (Bld) 1.8 {x10E3/uL} Normal 0.7-4.5 [facility] Work Phone: Comment on above: PATIENT WAS FASTINGP ERFORMED BY: [address] [id number] Information: [id number] Lymphocytes Auto #/vol (Bld) 1.8 {x10E3/uL} Normal 0.7-4.5 [facility] Work Phone: Lymphocytes/100 WBC (Bld) 22 % Normal 14-46 [facility] Work Phone: Comment on above: PATIENT WAS FASTINGP ERFORMED BY: [address] RoadDublin [place] [id number] Information: [id number] Lymphocytes/100 WBC Auto (Bld) 22 % Normal 14-46 [facility] Work Phone: MCH Auto Entitic mass (RBC) 31.7 pg Normal 26.6-33.0 [facility] Work Phone: MCH Entitic mass (RBC) 31.7 pg Normal 26.6-33.0 [facility] Work Phone: Comment on above: PATIENT WAS FASTINGP ERFORMED BY: [address] [id number] Information: [id number] MCHC Auto mass conc (RBC) 34.0 g/dL Normal 31.5-35.7 [facility] Work Phone: MCHC mass conc (RBC) 34.0 g/dL Normal 31.5-35.7 [facility] Internal Medicine Work Phone: Comment on above: PATIENT WAS FASTINGP ERFORMED BY: [address] [id number] Information: [id number] MCV Auto Entitic volume (RBC) 93 fL Normal 79-97 [facility] Work Phone: MCV Entitic volume (RBC) 93 fL Normal 79-97 [facility] Work Phone: Comment on above: PATIENT WAS FASTINGP ERFORMED BY: [address] [id number] Information: [id number] Monocytes #/vol (Bld) 0.5 {x10E3/uL} Normal 0.1-1.0 [facility] Work Phone: Comment on above: PATIENT WAS FASTINGP ERFORMED BY: [address] [id number] Information: [id number] Monocytes Auto #/vol (Bld) 0.5 {x10E3/uL} Normal 0.1-1.0 [facility] Work Phone: Monocytes/100 WBC (Bld) 6 % Normal 4-13 [facility] Work Phone: Comment on above: PATIENT WAS FASTINGP ERFORMED BY: DAYDAY [place] [address]7570 [facility] [id number] Information: [id number] Monocytes/100 WBC Auto (Bld) 6 % Normal 4-13 [facility] Work Phone: Neutrophils #/vol (Bld) 5.7 {x10E3/uL} Normal 1.8-7.8 [facility] Work Phone: Comment on above: PATIENT WAS FASTINGP ERFORMED BY: DAYDAY [place] [address]7570 [facility] [id number] Information: [id number] Neutrophils Auto #/vol (Bld) 5.7 {x10E3/uL} Normal 1.8-7.8 [facility] Work Phone: Neutrophils/100 WBC (Bld) 68 % Normal 40-74 [facility] Work Phone: Comment on above: PATIENT WAS FASTINGP ERFORMED BY: DAYDAY [facility] HospitalRomaine DangeloEpecar9133 [facility] [id number] Information: [id number] Neutrophils/100 WBC Auto (Bld) 68 % Normal 40-74 [facility] Work Phone: Platelets #/vol (Bld) 226 {x10E3/uL} Normal 140-415 [facility] Work Phone: Comment on above: PATIENT WAS FASTINGP ERFORMED BY: DAYDAY [place] [address]7570 [facility] [id number] Information: [id number] Platelets Auto #/vol (Bld) 226 {x10E3/uL} Normal 140-415 [facility] Work Phone: RBC #/vol (Bld) 4.04 {x10E6/uL} Normal 3.77-5.28 Comp rehensive Internal Medicine Work Phone: Comment on above: PATIENT WAS FASTINGP ERFORMED BY: DAYDAY JessieRomaine Ofmqra5023 [facility] [id number] Information: [id number] RBC Auto #/vol (Bld) 4.04 {x10E6/uL} Normal 3.77-5.28 [facility] Work Phone: WBC #/vol (Bld) 8.3 {x10E3/uL} Normal 4.0-10.5 [facility] Internal Medicine Work Phone: Comment on above: PATIENT WAS FASTINGP ERFORMED BY: DAYDAY [facility] Ktmgxe1096 [facility] [id number] Information: [id number] WBC Auto #/vol (Bld) 8.3 {x10E3/uL} Normal 4.0-10.5 [facility] Work Phone: HgA1C , Office ([phone])Ordere d By: Ninoska Kemp on 10-07-2012 Hemoglobin A1c/Hemoglobin.total mass fraction (Bld) 5.7 % Normal 4.6 - 7.1 Comprehensiv e Internal Medicine Work Phone: LIPID PANEL ([id number])Ordered B y: Materials Handler on 10-07-2012 Cholesterol in HDL mass conc 54 mg/dL Normal [facility] Work Phone: Comment on above: According to ATP-III Guidelines, HDL-C >59 mg/dL is considered anegative risk factor for CHD. PATIENT WAS FASTINGP ERFORMED BY: DAYDAY [employer] Lpkvcv9192 [address] Anser InnovationFirst[facility] [id number] Cholesterol in LDL mass conc 141 mg/dL Abnormal 0-99 [facility] Work Phone: Comment on above: PATIENT WAS FASTINGP ERFORMED BY: DAYDAY [employer] Nummfs6778 [facility] [id number] Cholesterol in LDL/Cholesterol in HDL mass ratio 2.6 {ratio_units} Normal 0.0-3.2 [facility] Work Phone: Comment on above: PATIENT WAS FASTINGP ERFORMED BY: DAYDAY LabCoelier Zdemjn7663 Vann Roadblin [place] [id number] Cholesterol in VLDL mass conc 20 mg/dL Normal 5-40 [facility] Work Phone: Comment on above: PATIENT WAS FASTINGP ERFORMED BY: DAYDAY LabRomaine DangeloDftize3779 Vann RoadNovant Health Forsyth Medical [place] [id number] Cholesterol mass conc 215 mg/dL Abnormal 100-199 Com prehensive Internal Medicine Work Phone: Comment on above: PATIENT WAS FASTINGP ERFORMED BY: DAYDAY LabCoelier Fndiob1044 [facility] [place] [id number] Triglyceride mass conc 98 mg/dL Normal 0-149 [facility] Work Phone: Comment on above: PATIENT WAS FASTINGP ERFORMED BY: DAYDAY LabRomaine DangeloWurbtv4804 [facility] [id number] METABOLIC PANEL, COMPREHENSI VE ([id number])Ordered By: Materials Handler on 10-07-2012 Albumin mass conc 4.3 g/dL Normal 3.5-4.8 Compreh [facility] Work Phone: Comment on above: PATIENT WAS FASTINGP ERFORMED BY: DAYDAY LabCoelier DangeloTbftsv5919 [facility] [id number] Albumin/Globulin mass ratio 1.6 {ratio} Normal 1.1-2.5 [facility] Work Phone: Comment on above: PATIENT WAS FASTINGP ERFORMED BY: DAYDAY LabCoeleir DangeloGhnlrs7148 [facility] [id number] ALP enzyme act/vol 76 [iU]/L Normal 45-108 Compre [facility] Internal Medicine Work Phone: Comment on above: PATIENT WAS FASTINGP ERFORMED BY: DAYDAY [facility] Ddijbf0272 [facility] [id number] ALT enzyme act/vol 19 [iU]/L Normal 0-32 Compre [facility] Internal Medicine Work Phone: Comment on above: PATIENT WAS FASTINGP ERFORMED BY: DAYDAY LabCo Zqhrfc1566 [facility] [place] [id number] AST enzyme act/vol 24 [iU]/L Normal 0-40 Compre [facility] Internal Medicine Work Phone: Comment on above: PATIENT WAS FASTINGP ERFORMED BY: DAYDAY [facility] Qeiymk4000 Vann RoadDublin [place] [id number] Bilirubin mass conc 0.5 mg/dL Normal 0.0-1.2 Compr ensive Internal Medicine Work Phone: Comment on above: PATIENT WAS FASTINGP ERFORMED BY: [facility] Wxssml7975 [facility] RoadNov[facility] Centerin [place] [id number] Calcium mass conc 9.8 mg/dL Normal 8.6-10.2 Compreh [facility] Work Phone: Comment on above: PATIENT WAS FASTINGP ERFORMED BY: DAYDAY LabCo Nmkyww2651 [facility]in [place] [id number] Chloride molar conc 100 mmol/L Normal 97-108 Compr ensive Internal Medicine Work Phone: Comment on above: PATIENT WAS FASTINGP ERFORMED BY: DAYDAY LabCo Lkqica8387 [facility]in [place] [id number] CO2 molar conc 22 mmol/L Normal 19-28 Comprehens [facility] Work Phone: Comment on above: PATIENT WAS FASTINGP ERFORMED BY: DAYDAY LabCo Tufsgr5688 [facility]in [place] [id number] Creatinine mass conc 0.96 mg/dL Normal 0.57-1.00 Comp [facility] Work Phone: Comment on above: PATIENT WAS FASTINGP ERFORMED BY: [facility] Nwjukg3423 [address] RoadNovant [facility] Forsy[facility] Medical Centerin [place] [id number] GFR/1.73 sq M predicted among blacks CKD-EPI vol rate/area (S/P/Bld) 67 mL/min/1.73 Normal Comprehensiv e Internal Medicine Work Phone: Comment on above: PATIENT WAS FASTINGP ERFORMED BY: [facility] Kcyqmy2927 [address] RoadNovant [facility] Forsy[facility] Medical Centerin [place] [id number] GFR/1.73 sq M predicted among non-blacks CKD-EPI vol rate/area (S/P/Bld) 58 mL/min/1.73 Abnormal [facility] Work Phone: Comment on above: PATIENT WAS FASTINGP ERFORMED BY: DAYDAY Olena Dangelolin6370 [facility] [id number] Globulin Calculated mass conc (S) 2.7 g/dL Normal 1.5-4.5 [facility] Work Phone: Globulin mass conc (S) 2.7 g/dL Normal 1.5-4.5 [facility] Work Phone: Comment on above: PATIENT WAS FASTINGP ERFORMED BY: DAYDAY JessieRomaine DangeloKvxtnj6199 [facility] [id number] Glucose mass conc 93 mg/dL Normal 65-99 Compreh ensive Internal Medicine Work Phone: Comment on above: PATIENT WAS FASTINGP ERFORMED BY: DAYDAY Paul Ricctt4934 [facility] [id number] Potassium molar conc 5.0 mmol/L Normal 3.5-5.2 Comp rehensive Internal Medicine Work Phone: Comment on above: PATIENT WAS FASTINGP ERFORMED BY: DAYDAY JessieRomaine DangeloGpbqjl1886 [facility] [id number] Protein mass conc 7.0 g/dL Normal 6.0-8.5 Compreh ensive Internal Medicine Work Phone: Comment on above: PATIENT WAS FASTINGP ERFORMED BY: DAYDAY LabKarina Zgwqtz1945 [facility] [id number] Sodium molar conc 136 mmol/L Normal 134-144 Compreh ensive Internal Medicine Work Phone: Comment on above: PATIENT WAS FASTINGP ERFORMED BY: DAYDAY LabCo Rezlww1682 [facility] [id number] Urea nitrogen mass conc 14 mg/dL Normal 8-27 [facility] Work Phone: Comment on above: PATIENT WAS FASTINGP ERFORMED BY: DAYDAY LabMet[facility] Dokvug8205 [facility] [id number] Urea nitrogen/Creatinine mass ratio 15 mg/mg Normal 11-26 [facility] Work Phone: Comment on above: PATIENT WAS FASTINGP ERFORMED BY: DAYDAY Dangelolin6370 V[address] Roadblin [place] [id number] MICROALBUMINOrdered By: Syst em Atg Architect on 10-07-2012 Albumin DL <= 20 mg/L mass conc (U) mg/dL Normal 0.0-17.0 [facility] Work Phone: Comment on above: PATIENT WAS FASTINGP ERFORMED BY: DAYDAY Dangelolin6370 [facility] RoadNovant [facility] Medical Centerin [place] [id number] Albumin/Creatinine mass ratio (U) <3.7 Normal 0.0-30.0 [facility] Work Phone: Comment on above: PATIENT WAS FASTINGP ERFORMED BY: DAYDAY Dangelolin6370 [facility]First[facility] [id number] Creatinine mass conc (U) 26.8 mg/dL Normal 15.0-278.0 [facility] Work Phone: Comment on above: PATIENT WAS FASTINGP ERFORMED BY: DAYDAY Parks6370 [facility] [place] [id number] Microscopic ExaminationOrder ed By: Materials Handler on 10-07-2012 Bacteria LM.HPF #/area (Urine sed) Few Normal [facility] Work Phone: Comment on above: PATIENT WAS FASTINGP ERFORMED BY: DAYDAY Dangelolin6370 [facility] [place] [id number] Epithelial cells LM.HPF #/area (Urine sed) None seen Normal 0 - 10 [facility] Work Phone: Comment on above: PATIENT WAS FASTINGP ERFORMED BY: DAYDAY LabRomaine DangeloRftzqh0640 [address] RoadDublin [place] [id number] RBC LM.HPF #/area (Urine sed) None seen Normal 0 - 3 [facility] Work Phone: Comment on above: PATIENT WAS FASTINGP ERFORMED BY: DAYDAY LabRomaine DangeloZioybg9396 [facility] [id number] WBC LM.HPF #/area (Urine sed) None seen Normal 0 - 5 [facility] Work Phone: Comment on above: PATIENT WAS FASTINGP ERFORMED BY: DAYDAY [facility] Thdiko4473 V[address] RoadDublin [place] [id number] TSH ([id number])Ordered By: Syste m Atg Architect on 10-07-2012 Thyrotropin Qn 3.100 {uIU/mL} Normal 0.450-4.50 0 [facility] Work Phone: Comment on above: PATIENT WAS FASTINGP ERFORMED BY: DAYDAY [facility] Akvnks8386 [address] RoadDublin [place] [id number] URINALYSIS, W/ MICRO ([id number]) Ordered By: Materials Handler on 10-07-2012 Appearance Nom (U) Clear Normal Compre hensive Internal Medicine Work Phone: Comment on above: PATIENT WAS FASTINGP ERFORMED BY: DAYDAY [facility] Wicdws7839 [address] RoadDublin [place] [id number] Bilirubin Ql (U) Negative Normal Comprehe nsive Internal Medicine Work Phone: Comment on above: PATIENT WAS FASTINGP ERFORMED BY: DAYDAY [facility] Jvxiys5549 [address] RoadDublin [place] [id number] Color Nom (U) Yellow Normal Comprehensi ve Internal Medicine Work Phone: Comment on above: PATIENT WAS FASTINGP ERFORMED BY: DAYDAY [facility] Njxzav4984 [address] RoadDublin [place] [id number] Glucose Ql (U) Negative Normal Comprehens [facility] Internal [facility] Work Phone: Comment on above: PATIENT WAS FASTINGP ERFORMED BY: DAYDAY [facility] Kqyfsz5390 [address] RoadDublin [place] [id number] Hemoglobin Ql (U) Negative Normal Compreh ensive Internal Medicine Work Phone: Comment on above: PATIENT WAS FASTINGP ERFORMED BY: DAYDAY [facility] Pilykp8992 [address] RoadDublin [place] [id number] Hemoglobin Test strip Ql (U) Negative Normal [facility] Work Phone: Ketones Ql (U) Negative Normal Comprehens [facility] Work Phone: Comment on above: PATIENT WAS FASTINGP ERFORMED BY: DAYDAY Parks6370 [address] RoadDublin [place] [id number] Leukocyte esterase Test strip Ql (U) Negative Normal [facility] Work Phone: Comment on above: PATIENT WAS FASTINGP ERFORMED BY: DAYDAY Sanford70 [address] RoadDublin [place] [id number] Microscopic observation LM Nom (Urine sed) MICRON Normal [facility] Work Phone: Comment on above: Microscopic follows if indicated. PATIENT WAS FASTINGP ERFORMED BY: DAYDAY Parks6370 [address]ublin [place] [id number] Microscopic observation LM Nom (Urine sed) See below: Normal [facility] Work Phone: Comment on above: PATIENT WAS FASTINGP ERFORMED BY: DAYDAY Sanford70 [address] RoadDublin [place] [id number] Nitrite Ql (U) Negative Normal Comprehens [facility] Work Phone: Comment on above: PATIENT WAS FASTINGP ERFORMED BY: DAYDAY Sanford70 [address]Dublin [place] [id number] Nitrite Test strip Ql (U) Negative Normal [facility] Work Phone: pH (U) 7.5 [pH] Normal 5.0-7.5 [facility] Work Phone: Comment on above: PATIENT WAS FASTINGP ERFORMED BY: DAYDAY Dangelolin6370 [address] RoadDublin [place] [id number] pH Test strip (U) 7.5 [pH] Normal 5.0-7.5 Compreh ensive Internal Medicine Work Phone: Protein Ql (U) Negative Normal Comprehens [facility] Work Phone: Comment on above: PATIENT WAS FASTINGP ERFORMED BY: DAYDAY Parks6370 [address] [place] [id number] Protein Test strip Ql (U) Negative Normal [facility] Work Phone: Specific gravity Relative Density (U) <=1.005 Abnormal 1.005-1.03 0 [facility] Work Phone: Comment on above: PATIENT WAS FASTINGP ERFORMED BY: [employer]6370 [facility] TogetherFirstHealth [facility] [id number] Urobilinogen Test strip mass conc (U) 0.2 mg/dL Normal 0.0-1.9 Comprehensiv e Internal Medicine Work Phone: Comment on above: PATIENT WAS FASTINGP ERFORMED BY: LifeScribe6370 VannNPRFirstHealth [facility] [id number] Vitamin D Hydroxy (52662)Ord ered By: Materials Handler on 10-07-2012 25-Hydroxyvitamin D2+25-Hydroxyvitamin D3 mass conc 22.2 ng/mL Abnormal 30.0-100.0 [facility] Work Phone: Comment on above: Vitamin D deficiency has been defined by the [place] of[place]icine and an Endocrine Society practice guideline as alevel of serum 25-OH vitamin D less than 20 ng/mL (1,2).The Endocrine Society went on to further define vitamin Dinsufficiency as a level between 21 and 29 ng/mL (2).1. IOM ([place] of Medicine). 2010. Dietary reference intakes for calcium and D. [place]: The National Academies Press.2. Trevon MF, Sherrell NC, Treva CORLEY, et al. Evaluation, treatment, and prevention of vitamin D deficiency: an Endocrine Society clinical practice guideline. JCEM. 2010; 96(7):1911-30. PATIENT WAS FASTINGP ERFORMED BY: [employer] Tkrjeu3844 [facility] [id number] Hemoglobin Glyclated (HGB A1 C) (59855)Ordered By: Materials Handler on 06-03-2012 Hemoglobin A1c/Hemoglobin.total mass fraction (Bld) 6.2 % Abnormal 4.8-5.6 Comprehensiv e Internal Medicine Work Phone: Comment on above: . Increased risk for diabetes: 5.7 - 6.4 Diabetes: >6.4 Glycemic control for adults with diabetes: <7.0 PATIENT NOT FASTINGP ERFORMED BY: [employer] Xnkrwj5791 V[address] RoadDublin [place] [id number] Information: ADD [id number] AND DRAW FEE 99 0066 ASHLEIGH (ANTINUCLEAR ANTIBODY) ( 18950)Ordered By: Materials Handler on 03-27-2012 Nuclear Ab Ql (S) Negative Normal Compreh ensive Internal Medicine Work Phone: Comment on above: PATIENT NOT FASTINGP ERFORMED BY: [employer] Sadcjl5167 [address] RoadDublin [place] [id number] C-REACTIVE PROTEIN (60954)Or dered By: Materials Handler on 03-27-2012 CRP mass conc 3.2 mg/L Normal 0.0-4.9 Comprehensi ve Internal Medicine Work Phone: Comment on above: PATIENT NOT FASTINGP ERFORMED BY: [employer] Flfrlp9536 Vann ShoutWireblin [place] [id number] CALCIFIDIOL (18286) VIT D 25 Ordered By: Materials Handler on 03-27-2012 25-Hydroxyvitamin D2+25-Hydroxyvitamin D3 mass conc 15.9 ng/mL Abnormal 30.0-100.0 [facility] Work Phone: Comment on above: Vitamin D deficiency has been defined by the [place] of[place]icine and an Endocrine Society practice guideline as alevel of serum 25-OH vitamin D less than 20 ng/mL (1,2).The Endocrine Society went on to further define vitamin Dinsufficiency as a level between 21 and 29 ng/mL (2).1. IOM ([place]). 2010. Dietary reference intakes for calcium and D. [place]: The National Academies Press.2. Trevon MF, Sherrell [place], Treva CORLEY, et al. Evaluation, treatment, and prevention of vitamin D deficiency: an Endocrine Society clinical practice guideline. JCEM. 2010; 96(7):1911-30. PATIENT NOT FASTINGP ERFORMED BY: Solution Dynamics Grouprp Cuwjbz3171 [address] RoadDublin [place] [id number] CBC (AUTO) (17089)Ordered By : Materials Handler on 03-27-2012 Erythrocyte distribution width Auto Ratio (RBC) 12.7 % Normal 12.3-15.4 [facility] Work Phone: Erythrocyte distribution width Ratio (RBC) 12.7 % Normal 12.3-15.4 [facility] Work Phone: Comment on above: PATIENT NOT FASTINGP ERFORMED BY: DAYDAY LabCo Tjfwdm9185 V[facility] [id number] Hematocrit Auto Volume Fraction (Bld) 37.9 % Normal 34.0-46.6 [facility] Internal Medicine Work Phone: Hematocrit Volume Fraction (Bld) 37.9 % Normal 34.0-46.6 [facility] Internal Medicine Work Phone: Comment on above: PATIENT NOT FASTINGP ERFORMED BY: DAYDAY LabRomaine DangeloMdqrov4901 [facility] [id number] Hemoglobin mass conc (Bld) 13.1 g/dL Normal 11.1-15.9 [facility] Work Phone: Comment on above: PATIENT NOT FASTINGP ERFORMED BY: DAYDAY LabCo Jbsfpv9035 [facility] [id number] MCH Auto Entitic mass (RBC) 31.6 pg Normal 26.6-33.0 [facility] Work Phone: MCH Entitic mass (RBC) 31.6 pg Normal 26.6-33.0 [facility] Work Phone: Comment on above: PATIENT NOT FASTINGP ERFORMED BY: DAYDAY LabCo Dcxpso0960 [facility] [id number] MCHC Auto mass conc (RBC) 34.6 g/dL Normal 31.5-35.7 [facility] Work Phone: MCHC mass conc (RBC) 34.6 g/dL Normal 31.5-35.7 Comp [facility] Internal Medicine Work Phone: Comment on above: PATIENT NOT FASTINGP ERFORMED BY: DAYDAY [facility] Afyoxf2010 [facility] [facility] [id number] MCV Auto Entitic volume (RBC) 92 fL Normal 79-97 [facility] Work Phone: MCV Entitic volume (RBC) 92 fL Normal 79-97 [facility] Work Phone: Comment on above: PATIENT NOT FASTINGP ERFORMED BY: DAYDAY Humbertoelier Yiskhn0631 [facility] [id number] Platelets #/vol (Bld) 249 {x10E3/uL} Normal 140-415 [facility] Work Phone: Comment on above: PATIENT NOT FASTINGP ERFORMED BY: DAYDAY JessieRomaine Wofjwv1371 [facility] [id number] Platelets Auto #/vol (Bld) 249 {x10E3/uL} Normal 140-415 [facility] Work Phone: RBC #/vol (Bld) 4.14 {x10E6/uL} Normal 3.77-5.28 Comp [facility] Work Phone: Comment on above: PATIENT NOT FASTINGP ERFORMED BY: DAYDAY MilePointKarinaPenny [place] 9511670 [facility] [id number] RBC Auto #/vol (Bld) 4.14 {x10E6/uL} Normal 3.77-5.28 [facility] Work Phone: WBC #/vol (Bld) 9.2 {x10E3/uL} Normal 4.0-10.5 [facility] Work Phone: Comment on above: PATIENT NOT FASTINGP ERFORMED BY: DAYDAY GigitPalisades Medical CenterElcvan4697 [facility] [id number] WBC Auto #/vol (Bld) 9.2 {x10E3/uL} Normal 4.0-10.5 [facility] Work Phone: Folate ([id number])Ordered By: Julio stem Atg Architect on 03-27-2012 Folate mass conc 14.0 ng/mL Normal Comprehe nsive Internal Medicine Work Phone: Comment on above: A serum folate juany ntration of less than 3.1 ng/mL isconsidered to represent clinical deficiency. PATIENT NOT FASTINGP ERFORMED BY: GigitPalisades Medical CenterQyftty8472 [facility] [id number] METABOLIC PANEL, COMPREHENSI VE ([id number])Ordered By: Materials Handler on 03-27-2012 Albumin mass conc 4.5 g/dL Normal 3.5-4.8 Compreh ensive Internal Medicine Work Phone: Comment on above: PATIENT NOT FASTINGP ERFORMED BY: DAYDAY [facility] Ssmceq7066 [address] RoadDublin [place] [id number] Albumin/Globulin mass ratio 1.8 {ratio} Normal 1.1-2.5 [facility] Work Phone: Comment on above: PATIENT NOT FASTINGP ERFORMED BY: CB [facility] Zepvwg8844 [address] RoadDublin [place] [id number] ALP enzyme act/vol 70 [iU]/L Normal 25-165 Compre [facility] Internal Medicine Work Phone: Comment on above: PATIENT NOT FASTINGP ERFORMED BY: DAYDAY [facility] Nxnhxi0250 [address] RoadDublin [place] [id number] ALT enzyme act/vol 20 [iU]/L Normal 0-32 Compre [facility] Internal Medicine Work Phone: Comment on above: PATIENT NOT FASTINGP ERFORMED BY: DAYDAY [facility] Vueube4177 [address] RoadDublin [place] [id number] AST enzyme act/vol 24 [iU]/L Normal 0-40 Compre [facility] Internal Medicine Work Phone: Comment on above: PATIENT NOT FASTINGP ERFORMED BY: CB [facility] Yieiix1929 [address] RoadDublin [place] [id number] Bilirubin mass conc 0.3 mg/dL Normal 0.0-1.2 Compr [facility] Internal Medicine Work Phone: Comment on above: PATIENT NOT FASTINGP ERFORMED BY: CB [facility] Dbmknz5928 [address] RoadDublin [place] [id number] Calcium mass conc 9.7 mg/dL Normal 8.6-10.2 Compreh ensive Internal Medicine Work Phone: Comment on above: PATIENT NOT FASTINGP ERFORMED BY: CB [facility] Vispuf4755 [address] RoadDublin [place] [id number] Chloride molar conc 101 mmol/L Normal 97-108 Compr ehensive Internal Medicine Work Phone: Comment on above: PATIENT NOT FASTINGP ERFORMED BY: DAYDAY LabRomaine Parks6370 [facility] [id number] CO2 molar conc 22 mmol/L Normal 20-32 Comprehens [facility] Internal [facility] Work Phone: Comment on above: PATIENT NOT FASTINGP ERFORMED BY: DAYDAY [facility] Srykzg5575 [facility] [id number] Creatinine mass conc 1.01 mg/dL Abnormal 0.57-1.00 Comp rehensive Internal Medicine Work Phone: Comment on above: PATIENT NOT FASTINGP ERFORMED BY: DAYDAY Dangelolin6370 [facility] [id number] GFR/1.73 sq M predicted among blacks CKD-EPI vol rate/area (S/P/Bld) 63 mL/min/1.73 Normal Comprehensiv e Internal Medicine Work Phone: Comment on above: PATIENT NOT FASTINGP ERFORMED BY: DAYDAY [facility] Dzzsjy9008 [facility] [id number] GFR/1.73 sq M predicted among non-blacks CKD-EPI vol rate/area (S/P/Bld) 55 mL/min/1.73 Abnormal [facility] Work Phone: Comment on above: PATIENT NOT FASTINGP ERFORMED BY: DAYDAY [facility] Zcjczy1675 [facility] [id number] Globulin Calculated mass conc (S) 2.5 g/dL Normal 1.5-4.5 [facility] Work Phone: Globulin mass conc (S) 2.5 g/dL Normal 1.5-4.5 [facility] Work Phone: Comment on above: PATIENT NOT FASTINGP ERFORMED BY: DAYDAY [facility] Zgfjap4824 [facility] [id number] Glucose mass conc 84 mg/dL Normal 65-99 Compreh ensive Internal Medicine Work Phone: Comment on above: PATIENT NOT FASTINGP ERFORMED BY: DAYDAY LabRomaine DangeloKizaef6152 [facility] [place] [id number] Potassium molar conc 4.8 mmol/L Normal 3.5-5.2 Comp rehensive Internal Medicine Work Phone: Comment on above: PATIENT NOT FASTINGP ERFORMED BY: DAYDAY LabCoelier Ndzjsy6461 V[address] [facility] [id number] Protein mass conc 7.0 g/dL Normal 6.0-8.5 Compreh ensive Internal Medicine Work Phone: Comment on above: PATIENT NOT FASTINGP ERFORMED BY: DAYDAY LabCoelier DangeloTxjmgo4069 [address] [facility] [id number] Sodium molar conc 136 mmol/L Normal 134-144 Compreh ensive Internal Medicine Work Phone: Comment on above: PATIENT NOT FASTINGP ERFORMED BY: DAYDAY Parks6370 [facility] [id number] Urea nitrogen mass conc 15 mg/dL Normal 8-27 [facility] Work Phone: Comment on above: PATIENT NOT FASTINGP ERFORMED BY: DAYDAY LabRomaine DangeloBjagzq3300 [facility] [id number] Urea nitrogen/Creatinine mass ratio 15 mg/mg Normal 11-26 [facility] Work Phone: Comment on above: PATIENT NOT FASTINGP ERFORMED BY: DAYDAY Parks6370 [facility] [id number] RHEUMATOID FACTOR-QUANT (861 31)Ordered By: Materials Handler on 03-27-2012 Rheumatoid factor Qn 7.4 {IU/mL} Normal 0.0-13.9 Com prehensive Internal Medicine Work Phone: Comment on above: PATIENT NOT FASTINGP ERFORMED BY: DAYDAY LabRomaine DangeloXgwwju9900 V[address] [facility] [id number] SED RATE ERYTHROCYTE ([id number]) Ordered By: Materials Handler on 03-27-2012 ESR Velocity (Bld) 9 mm/h Normal 0-40 Compre [facility] Internal Medicine Work Phone: Comment on above: PATIENT NOT FASTINGP ERFORMED BY: CB [facility] Rxkasd0442 [address] RoadDublin [place] [id number] TSH ([id number])Ordered By: Ying m Atg Architect on 03-27-2012 Thyrotropin Qn 2.220 {uIU/mL} Normal 0.450-4.50 0 [facility] Work Phone: Comment on above: PATIENT NOT FASTINGP ERFORMED BY: CB [facility] Dgbbhq0795 [address] RoadDublin [place] [id number] VITAMIN B-12 (CYANOCOBALAMIN ) ([id number])Ordered By: Materials Handler on 03-27-2012 Cobalamin (Vitamin B12) mass conc 401 pg/mL Normal 211-946 [facility] Work Phone: Comment on above: PATIENT NOT FASTINGP ERFORMED BY: CB [facility] Iczpnq6300 [address] RoadDublin [place] [id number] Culture, urine Bacteria identified Cx Nom (U) Klebsiella oxytoca [facility] Work Phone: Bacteria identified Cx Nom (U) Streptococcus group B [facility] Work Phone: Vital Signs Date Time Vital Sign Value Performing Clinician Facility 08-08-2024 07:49-0400 Body height 152.[address] Jian Viveros MD Work Phone: [facility] 08-08-2024 07:49-0400 Body weight 63.[address] Jian Viveros MD Work Phone: [facility] 08-07-2024 08:12-0400 Body mass index (BMI) [Ratio] 27.3 kg/m2 Dr. Jian Viveros MD Work Phone: [facility] 07-29-2024 13:26-0400 Body height 152.[address] Jian Viveros MD Work Phone: [facility] 07-29-2024 13:26-0400 Body mass index (BMI) [Ratio] 27.3 kg/m2 Dr. Jian Viveros MD Work Phone: [facility] 07-29-2024 13:26-0400 Body weight 63.[address] Jian Viveros MD Work Phone: [facility] 07-29-2024 13:26-0400 Diastolic blood pressure 84 mm[Hg] Dr. Jian Viveros MD Work Phone: [facility] 07-29-2024 13:26-0400 Heart rate 55 /min Dr. Jian Viveros MD Work Phone: [facility] 07-29-2024 13:26-0400 Respiratory rate 18 /min Dr. Jian Viveros MD Work Phone: [phone] [address] 07-29-2024 13:26-0400 SaO2% (BldA) [Mass fraction] 98 % Dr. Jian Viveros MD Work Phone: [facility] 07-29-2024 13:26-0400 Systolic blood pressure 180 mm[Hg] Dr. Jian Viveros MD Work Phone: [facility] 02-11-2024 13:42-0500 Body height 152.[address] Jian Viveros MD Work Phone: [phone] [address] [address] 02-11-2024 13:42-0500 Body mass index (BMI) [Ratio] 27.1 kg/m2 Dr. Jian Viveros MD Work Phone: [phone])[phone] [address] [address] 02-11-2024 13:42-0500 Body weight 63.[address] Jian Viveros MD Work Phone: [facility] 02-11-2024 13:42-0500 Diastolic blood pressure 94 mm[Hg] Dr. Jian Viveros MD Work Phone: [facility] 02-11-2024 13:42-0500 Heart rate 59 /min Dr. Jian Viveros MD Work Phone: [facility] 02-11-2024 13:42-0500 Respiratory rate 18 /min Dr. Jian Viveros MD Work Phone: [facility] 02-11-2024 13:42-0500 SaO2% (BldA) [Mass fraction] 100 % Dr. Jian Viveros MD Work Phone: [facility] 02-11-2024 13:42-0500 Systolic blood pressure 175 mm[Hg] Dr. Jian Viveros MD Work Phone: [facility] 06-19-2023 10:43-0400 Body height 152.[address] Jian Viveros Work Phone: [facility] 06-19-2023 10:43-0400 Body mass index (BMI) [Ratio] 27.7 kg/m2 Dr. Jian Viveros Work Phone: [phone] [address] [address] 06-19-2023 10:43-0400 Body weight 64.[address] Jian Viveros Work Phone: 4(351)[phone] [address] [address] 06-19-2023 10:43-0400 Diastolic blood pressure 76 mm[Hg] Dr. Jian Viveros Work Phone: [facility] 06-19-2023 10:43-0400 Heart rate 60 /min Dr. Jian Viveros Work Phone: [facility] 06-19-2023 10:43-0400 Respiratory rate 18 /min Dr. Jian Viveros Work Phone: [facility] 06-19-2023 10:43-0400 Systolic blood pressure 141 mm[Hg] Dr. Jian Viveros Work Phone: [facility] 08-08-2022 14:37-0400 Diastolic blood pressure 90 mm[Hg] Dr. Jian Viveros Work Phone: [facility] 08-08-2022 14:37-0400 Heart rate 60 /min Dr. Jian Viveros Work Phone: [facility] 08-08-2022 14:37-0400 Respiratory rate 16 /min Dr. Jian Viveros Work Phone: [facility] 08-08-2022 14:37-0400 SaO2% (BldA) [Mass fraction] 100 % Dr. Jian Viveros Work Phone: [facility] 08-08-2022 14:37-0400 Systolic blood pressure 178 mm[Hg] Dr. Jian Viveros Work Phone: [facility] 07-25-2022 14:00-0400 Diastolic blood pressure 71 mm[Hg] Dr. Jian Viveros Work Phone: [facility] 07-25-2022 14:00-0400 Heart rate 60 /min Dr. Jian Viveros Work Phone: [facility] 07-25-2022 14:00-0400 Respiratory rate 17 /min Dr. Jian Viveros Work Phone: [facility] 07-25-2022 14:00-0400 SaO2% (BldA) [Mass fraction] 97 % Dr. Jian Viveros Work Phone: [facility] 07-25-2022 14:00-0400 Systolic blood pressure 159 mm[Hg] Dr. Jian Viveros Work Phone: [facility] 07-25-2022 13:00-0400 Body temperature 97.9 [degF] Dr. Jian Viveros Work Phone: [facility] 07-25-2022 06:00-0400 Body mass index (BMI) [Ratio] 27.8 kg/m2 Dr. Jian Viveros Work Phone: [facility] 07-25-2022 06:00-0400 Body weight 64.[address] Jian Viveros Work Phone: [facility] 07-25-2022 04:00-0400 Inhaled oxygen concentration 25 % Dr. Jian Viveros Work Phone: [facility] 07-24-2022 15:09-0400 Body height 152.[address] Jian Viveros Work Phone: [facility] 07-24-2022 11:22-0400 Inhaled oxygen flow rate 8 L/min Dr. Jian Viveros Work Phone: [facility] 07-17-2022 14:52-0400 Body weight 61.[address] Jian Viveros Work Phone: [facility] 07-17-2022 14:52-0400 Diastolic blood pressure 90 mm[Hg] Dr. Jian Viveros Work Phone: [facility] 07-17-2022 14:52-0400 Heart rate 64 /min Dr. Jian Viveros Work Phone: [facility] 07-17-2022 14:52-0400 Respiratory rate 18 /min Dr. Jian Viveros Work Phone: [facility] 07-17-2022 14:52-0400 SaO2% (BldA) [Mass fraction] 100 % Dr. Jian Viveros Work Phone: [facility] 07-17-2022 14:52-0400 Systolic blood pressure 158 mm[Hg] Dr. Jian Viveros Work Phone: [facility] 05-30-2022 13:05-0400 Body temperature 97.7 [degF] Dr. Jian Viveros Work Phone: [facility] 05-30-2022 13:05-0400 Body weight 61.[address] Jian Viveros Work Phone: [facility] 05-30-2022 13:05-0400 Diastolic blood pressure 80 mm[Hg] Dr. Jian Viveros Work Phone: [facility] 05-30-2022 13:05-0400 Heart rate 60 /min Dr. Jian Viveros Work Phone: [facility] 05-30-2022 13:05-0400 Respiratory rate 16 /min Dr. Jian Viveros Work Phone: [facility] 05-30-2022 13:05-0400 SaO2% (BldA) [Mass fraction] 98 % Dr. Jian Viveros Work Phone: [facility] 05-30-2022 13:05-0400 Systolic blood pressure 176 mm[Hg] Dr. Jian Viveros Work Phone: [facility] 05-05-2022 14:47-0500 Body height 165.[address] Jian Viveros Work Phone: [facility] 05-05-2022 14:46-0500 Body mass index (BMI) [Ratio] 22.9 kg/m2 Dr. Jian Viveros Work Phone: [facility] 05-05-2022 14:46-0500 Body weight 62.[address] Jian Viveros Work Phone: [facility] 05-05-2022 14:46-0500 Diastolic blood pressure 93 mm[Hg] Dr. Jian Viveros Work Phone: [facility] 05-05-2022 14:46-0500 Heart rate 59 /min Dr. Jian Viveros Work Phone: [facility] 05-05-2022 14:46-0500 Respiratory rate 18 /min Dr. Jian Viveros Work Phone: [facility] 05-05-2022 14:46-0500 SaO2% (BldA) [Mass fraction] 100 % Dr. Jian Viveros Work Phone: [facility] 05-05-2022 14:46-0500 Systolic blood pressure 168 mm[Hg] Dr. Jian Viveros Work Phone: [facility] 01-05-2022 14:07-0400 Body height 165.[address] Jian Viveros Work Phone: [facility] 01-05-2022 14:06-0400 Body mass index (BMI) [Ratio] 22.6 kg/m2 Dr. Jian Viveros Work Phone: [facility] 01-05-2022 14:06-0400 Body temperature 98 [degF] Dr. Jian Viveros Work Phone: [facility] 01-05-2022 14:06-0400 Body weight 61.[address] Jian Viveros Work Phone: [facility] 01-05-2022 14:06-0400 Diastolic blood pressure 90 mm[Hg] Dr. Jian Viveros Work Phone: [facility] 01-05-2022 14:06-0400 Heart rate 60 /min Dr. Jian Viveros Work Phone: [facility] 01-05-2022 14:06-0400 Respiratory rate 15 /min Dr. Jian Viveros Work Phone: [facility] 01-05-2022 14:06-0400 SaO2% (BldA) [Mass fraction] 100 % Dr. Jian Viveros Work Phone: [facility] 01-05-2022 14:06-0400 Systolic blood pressure 153 mm[Hg] Dr. Jian Viveros Work Phone: [facility] 12-06-2021 10:21-0400 SaO2% (BldA) [Mass fraction] 99 % Dr. Jian Viveros Work Phone: [facility] Work Phone: 12-06-2021 09:37-0400 Heart rate 64 /min Dr. Jian Vvieros Work Phone: [facility] Work Phone: 12-06-2021 09:30-0400 Body temperature 97.4 [degF] Dr. Jian Viveros Work Phone: [facility] Work Phone: 12-06-2021 09:30-0400 Diastolic blood pressure 70 mm[Hg] Dr. Jian Viveros Work Phone: [facility] Work Phone: 12-06-2021 09:30-0400 Respiratory rate 15 /min Dr. Jian Viveros Work Phone: [facility] Work Phone: 12-06-2021 09:30-0400 Systolic blood pressure 136 mm[Hg] Dr. Jian Viveros Work Phone: [facility] Work Phone: 12-06-2021 07:45-0400 Inhaled oxygen flow rate 2 L/min Dr. Jian Viveros Work Phone: [facility] Work Phone: 12-05-2021 14:43-0400 Body height 165.[address] Jian Viveros Work Phone: [facility] Work Phone: 12-05-2021 14:43-0400 Body weight 62.[address] Jian Viveros Work Phone: [facility] Work Phone: 12-04-2021 20:20-0400 Body mass index (BMI) [Ratio] 22.8 kg/m2 Dr. Jian Viveros Work Phone: [facility] Work Phone: 12-04-2021 19:26-0400 Body temperature 98.1 [degF] Dr. Jian Viveros Work Phone: [facility] Work Phone: 12-04-2021 19:26-0400 Diastolic blood pressure 71 mm[Hg] Dr. Jian Viveros Work Phone: [facility] Work Phone: 12-04-2021 19:26-0400 Heart rate 62 /min Dr. Jian Viveros Work Phone: [facility] Work Phone: 12-04-2021 19:26-0400 Inhaled oxygen flow rate 2 L/min Dr. Jian Viveros Work Phone: [facility] Work Phone: 12-04-2021 19:26-0400 Respiratory rate 30 /min Dr. Jian Viveros Work Phone: [facility] Work Phone: 12-04-2021 19:26-0400 SaO2% (BldA) [Mass fraction] 95 % Dr. Jian Viveros Work Phone: [facility] Work Phone: 12-04-2021 19:26-0400 Systolic blood pressure 97 mm[Hg] Dr. Jian Viveros Work Phone: [facility] Work Phone: 12-04-2021 16:44-0400 Body height 165.[address] Jian Viveros Work Phone: [facility] Work Phone: 12-04-2021 16:44-0400 Body mass index (BMI) [Ratio] 22.9 kg/m2 Dr. Jian Viveros Work Phone: [facility] Work Phone: 12-04-2021 16:44-0400 Body weight 62.[address] Jian iVveros Work Phone: [facility] Work Phone: 11-27-2021 14:00-0400 Diastolic blood pressure 58 mm[Hg] Dr. Jian Viveros Work Phone: [facility] Work Phone: 11-27-2021 14:00-0400 Heart rate 68 /min Dr. Jian Viveros Work Phone: [facility] Work Phone: 11-27-2021 14:00-0400 Respiratory rate 24 /min Dr. Jian Viveros Work Phone: [facility] Work Phone: 11-27-2021 14:00-0400 SaO2% (BldA) [Mass fraction] 97 % Dr. Jian Viveros Work Phone: [facility] Work Phone: 11-27-2021 14:00-0400 Systolic blood pressure 137 mm[Hg] Dr. Jian Viveros Work Phone: [facility] Work Phone: 11-27-2021 09:46-0400 Inhaled oxygen flow rate 2 L/min Dr. Jian Viveros Work Phone: [facility] Work Phone: 11-27-2021 09:31-0400 Body height 165.[address] Jian Viveros Work Phone: [facility] Work Phone: 11-27-2021 09:31-0400 Body mass index (BMI) [Ratio] 26.2 kg/m2 Dr. Jian Viveros Work Phone: [facility] Work Phone: 11-27-2021 09:31-0400 Body temperature 97.5 [degF] Dr. Jian Viveros Work Phone: [facility] Work Phone: 11-27-2021 09:31-0400 Body weight 71.[address] Jian Viveros Work Phone: [facility] Work Phone: 05-24-2021 12:26-0500 Body height 165.[address] Jian Savage Work Phone: [facility] Work Phone: 05-24-2021 12:26-0500 Body mass index (BMI) [Ratio] 23.9 kg/m2 Dr. Jian Savage Work Phone: [facility] Work Phone: 05-24-2021 12:26-0500 Body weight 65.[address] Jian Savage Work Phone: [facility] Work Phone: 05-24-2021 12:26-0500 Diastolic blood pressure 94 mm[Hg] Dr. Jian Savage Work Phone: [facility] Work Phone: 05-24-2021 12:26-0500 Heart rate 60 /min Dr. Jian Savage Work Phone: [facility] Work Phone: 05-24-2021 12:26-0500 Respiratory rate 16 /min Dr. Jian Savage Work Phone: [facility] Work Phone: 05-24-2021 12:26-0500 SaO2% (BldA) [Mass fraction] 98 % Dr. Jian Savage Work Phone: [facility] Work Phone: 05-24-2021 12:26-0500 Systolic blood pressure 186 mm[Hg] Dr. Jian Savage Work Phone: [facility] Work Phone: 11-08-2018 12:15-0400 BMI (Body Mass Index) 23.02 kg/m2 Rox Huerta [facility] Work Phone: 11-08-2018 12:15-0400 Body weight 63.73 kg Rox Bradley [facility] Work Phone: 11-08-2018 12:15-0400 BP Diastolic 82 mm[Hg] Rox Huerta [facility] Work Phone: Comment on above: Patient Position: Sitting; Cuff Location : Left Arm; Cuff Size: Large 11-08-2018 12:15-0400 BP Systolic 158 mm[Hg] Rox Bradley [facility] Work Phone: Comment on above: Patient Position: Sitting; Cuff Location : Left Arm; Cuff Size: Large 11-08-2018 12:15-0400 BSA (Body Surface Area) 1.71 m2 Rox Huerta [facility] Work Phone: 11-08-2018 12:15-0400 Height 166.37 cm Rox Huerta [facility] Work Phone: 11-08-2018 12:15-0400 Pulse (Heart Rate) 67 /min Rox Huerta [facility] Work Phone: Comment on above: Pattern: Regular 11-08-2018 12:15-0400 Pulse Oximetry 99 % Rox Huerta [facility] Work Phone: Comment on above: Room air 11-08-2018 12:15-0400 Respiratory Rate 18 /min Rox Huerta [facility] Work Phone: Comment on above: Pattern: Unlabored 10-25-2018 10:22-0400 BMI (Body Mass Index) 22.84 kg/m2 Rox Huerta [facility] Work Phone: 10-25-2018 10:22-0400 Body weight 63.22 kg Rox Huerta [facility] Work Phone: 10-25-2018 10:22-0400 BP Diastolic 92 mm[Hg] Rox Huerta [facility] Work Phone: Comment on above: Patient Position: Sitting; Cuff Location : Left Arm; Cuff Size: Standard 10-25-2018 10:22-0400 BP Systolic 180 mm[Hg] Rox Huerta [facility] Work Phone: Comment on above: Patient Position: Sitting; Cuff Location : Left Arm; Cuff Size: Standard 10-25-2018 10:22-0400 BSA (Body Surface Area) 1.71 m2 Rox Huerta [facility] Work Phone: 10-25-2018 10:22-0400 Height 166.37 cm Rox Huerta [facility] Work Phone: 10-25-2018 10:22-0400 Pulse (Heart Rate) 84 /min Rox Huerta [facility] Work Phone: Comment on above: Pattern: Regular 10-25-2018 10:22-0400 Pulse Oximetry 98 % Rox Huerta [facility] Work Phone: Comment on above: Room air 10-25-2018 10:22-0400 Respiratory Rate 20 /min Rox [facility] Work Phone: Comment on above: Pattern: Unlabored 05-29-2018 12:05-0400 BMI (Body Mass Index) 23.31 kg/m2 Rox Huerta [facility] Work Phone: 05-29-2018 12:05-0400 Body weight 64.52 kg Rox [facility] Work Phone: 05-29-2018 12:05-0400 BP Diastolic 82 mm[Hg] Rox [facility] Work Phone: Comment on above: Patient Position: Sitting; Cuff Location : Left Arm; Cuff Size: Large 05-29-2018 12:05-0400 BP Systolic 160 mm[Hg] Rox [facility] Work Phone: Comment on above: Patient Position: Sitting; Cuff Location : Left Arm; Cuff Size: Large 05-29-2018 12:05-0400 BSA (Body Surface Area) 1.72 m2 Rox [facility] Work Phone: 05-29-2018 12:05-0400 Height 166.37 cm Rox [facility] Work Phone: 05-29-2018 12:05-0400 Pulse (Heart Rate) 59 /min Rox [facility] Work Phone: Comment on above: Pattern: Regular 05-29-2018 12:05-0400 Pulse Oximetry 96 % Rox [facility] Work Phone: Comment on above: Room air 05-29-2018 12:05-0400 Respiratory Rate 18 /min Rox [facility] Work Phone: Comment on above: Pattern: Unlabored 05-29-2018 12:05-0400 Weight 64.52 kg Rox [facility] Work Phone: 03-01-2018 11:13-0500 BMI (Body Mass Index) 23.31 kg/m2 Rox [facility] Work Phone: 03-01-2018 11:13-0500 Body weight 64.52 kg Rox Huerta [facility] Work Phone: 03-01-2018 11:13-0500 BP Diastolic 82 mm[Hg] Rox Huerta [facility] Work Phone: Comment on above: Patient Position: Sitting; Cuff Location : Left Arm; Cuff Size: Large 03-01-2018 11:13-0500 BP Systolic 124 mm[Hg] Rox Huerta [facility] Work Phone: Comment on above: Patient Position: Sitting; Cuff Location : Left Arm; Cuff Size: Large 03-01-2018 11:13-0500 BSA (Body Surface Area) 1.72 m2 Rox Huerta [facility] Work Phone: 03-01-2018 11:13-0500 Height 166.37 cm Rox Huerta [facility] Work Phone: 03-01-2018 11:13-0500 Pulse (Heart Rate) 84 /min Rox Hureta [facility] Work Phone: Comment on above: Pattern: Regular 03-01-2018 11:13-0500 Pulse Oximetry 99 % Rox Huerta [facility] Work Phone: Comment on above: Room air 03-01-2018 11:13-0500 Respiratory Rate 18 /min Rox Huerta [facility] Work Phone: Comment on above: Pattern: Unlabored 03-01-2018 11:13-0500 Weight 64.52 kg Rox Huerta [facility] Work Phone: 01-21-2018 11:37-0500 BMI (Body Mass Index) 23.31 kg/m2 Rox Huerta [facility] Work Phone: 01-21-2018 11:37-0500 Body weight 64.52 kg Rox Huerta [facility] Work Phone: 01-21-2018 11:37-0500 BP Diastolic 70 mm[Hg] Rox Huerta [facility] Work Phone: Comment on above: Patient Position: Sitting; Cuff Location : Left Arm; Cuff Size: Standard 01-21-2018 11:37-0500 BP Systolic 128 mm[Hg] Rox Huerta [facility] Work Phone: Comment on above: Patient Position: Sitting; Cuff Location : Left Arm; Cuff Size: Standard 01-21-2018 11:37-0500 BSA (Body Surface Area) 1.72 m2 Rox Huerta [facility] Work Phone: 01-21-2018 11:37-0500 Height 166.37 cm Rox Huerta [facility] Work Phone: 01-21-2018 11:37-0500 Pulse (Heart Rate) 66 /min Rox Huerta [facility] Work Phone: Comment on above: Pattern: Regular 01-21-2018 11:37-0500 Pulse Oximetry 99 % Rox Huerta [facility] Work Phone: Comment on above: Room air 01-21-2018 11:37-0500 Respiratory Rate 18 /min Rox Huerta [facility] Work Phone: Comment on above: Pattern: Unlabored 01-21-2018 11:37-0500 Weight 64.52 kg Rox Huerta [facility] Work Phone: 12-31-2017 10:12-0400 BMI (Body Mass Index) 23.19 kg/m2 Rox Huerta [facility] Work Phone: 12-31-2017 10:12-0400 Body weight 64.18 kg Rox Huerta [facility] Work Phone: 12-31-2017 10:12-0400 BP Diastolic 78 mm[Hg] Rox Huerta [facility] Work Phone: Comment on above: Patient Position: Sitting; Cuff Location : Left Arm; Cuff Size: Standard 12-31-2017 10:12-0400 BP Systolic 138 mm[Hg] Rox Huerta [facility] Work Phone: Comment on above: Patient Position: Sitting; Cuff Location : Left Arm; Cuff Size: Standard 12-31-2017 10:12-0400 BSA (Body Surface Area) 1.72 m2 Rox Huerta [facility] Work Phone: 12-31-2017 10:12-0400 Height 166.37 cm Rox Huerta [facility] Work Phone: 12-31-2017 10:12-0400 Pulse (Heart Rate) 80 /min Rox Huerta [facility] Work Phone: Comment on above: Pattern: Regular 12-31-2017 10:12-0400 Pulse Oximetry 98 % Rox Huerta [facility] Work Phone: Comment on above: Room air 12-31-2017 10:12-0400 Respiratory Rate 18 /min Rox Huerta [facility] Work Phone: Comment on above: Pattern: Unlabored 12-31-2017 10:12-0400 Weight 64.18 kg Rox Huerta [facility] Work Phone: 09-27-2017 12:18-0400 BMI (Body Mass Index) 23.29 kg/m2 Rox Huerta [facility] Work Phone: 09-27-2017 12:18-0400 Body Temperature 97.6 [degF] Rox Huerta [facility] Work Phone: Comment on above: Method: Temporal 09-27-2017 12:18-0400 Body weight 64.47 kg Rox Huerta [facility] Work Phone: 09-27-2017 12:18-0400 BP Diastolic 68 mm[Hg] Rox Huerta [facility] Work Phone: Comment on above: Patient Position: Sitting; Cuff Location : Left Arm; Cuff Size: Large 09-27-2017 12:18-0400 BP Systolic 140 mm[Hg] Rox Huerta [facility] Work Phone: Comment on above: Patient Position: Sitting; Cuff Location : Left Arm; Cuff Size: Large 09-27-2017 12:18-0400 BSA (Body Surface Area) 1.72 m2 Rox Huerta [facility] Work Phone: 09-27-2017 12:18-0400 Height 166.37 cm Rox Huerta [facility] Work Phone: 09-27-2017 12:18-0400 Pulse (Heart Rate) 80 /min Rox Huerta [facility] Work Phone: Comment on above: Pattern: Regular 09-27-2017 12:18-0400 Pulse Oximetry 97 % Rox Huerta [facility] Work Phone: Comment on above: Room air 09-27-2017 12:18-0400 Respiratory Rate 16 /min Rox Huerta [facility] Work Phone: Comment on above: Pattern: Unlabored 09-27-2017 12:18-0400 Weight 64.47 kg Rox Huerta [facility] Work Phone: 08-23-2017 12:47-0400 BMI (Body Mass Index) 22.98 kg/m2 Rxo Huerta [facility] Work Phone: 08-23-2017 12:47-0400 Body weight 63.62 kg Rox Huerta [facility] Work Phone: 08-23-2017 12:47-0400 BP Diastolic 80 mm[Hg] Rox Huerta [facility] Work Phone: Comment on above: Patient Position: Sitting; Cuff Location : Left Arm; Cuff Size: Standard 08-23-2017 12:47-0400 BP Systolic 144 mm[Hg] Rox Huerta [facility] Work Phone: Comment on above: Patient Position: Sitting; Cuff Location : Left Arm; Cuff Size: Standard 08-23-2017 12:47-0400 BSA (Body Surface Area) 1.71 m2 Rox Huerta [facility] Work Phone: 08-23-2017 12:47-0400 Height 166.37 cm Rox Huerta [facility] Work Phone: 08-23-2017 12:47-0400 Pulse (Heart Rate) 64 /min Rox Huerta [facility] Work Phone: Comment on above: Pattern: Regular 08-23-2017 12:47-0400 Respiratory Rate 16 /min Rox Huerta [facility] Work Phone: Comment on above: Pattern: Unlabored 08-23-2017 12:47-0400 Weight 63.62 kg Rox uHerta [facility] Work Phone: 08-02-2017 13:53-0400 BMI (Body Mass Index) 22.98 kg/m2 Rox Huerta [facility] Work Phone: Comment on above: hearing wnlDr. Adhikari and had a glauc kong test 08-02-2017 13:53-0400 Body weight 63.62 kg Rox Huerta [facility] Work Phone: Comment on above: hearing wnlDr. Adhikari and had a glauc kong test 08-02-2017 13:53-0400 BP Diastolic 86 mm[Hg] Rox Huerta [facility] Work Phone: Comment on above: Patient Position: Sitting; Cuff Location : Left Arm; Cuff Size: Large hearing wnlDr. Jazte rson and had a glaucoma test 08-02-2017 13:53-0400 BP Systolic 146 mm[Hg] Rox Huerta [facility] Work Phone: Comment on above: Patient Position: Sitting; Cuff Location : Left Arm; Cuff Size: Large hearing wnlDr. Patte rson and had a glaucoma test 08-02-2017 13:53-0400 BSA (Body Surface Area) 1.71 m2 Rox Huerta [facility] Work Phone: Comment on above: hearing wnlDr. Adhikari and had a glauc kong test 08-02-2017 13:53-0400 Height 166.37 cm Rox Huerta [facility] Work Phone: Comment on above: hearing wnlDr. Adhikari and had a glauc kong test 08-02-2017 13:53-0400 Pulse (Heart Rate) 58 /min Rox Huerta [facility] Work Phone: Comment on above: Pattern: Regular hearing wnlDr. Álvaro ortega and had a glaucoma test 08-02-2017 13:53-0400 Pulse Oximetry 98 % Rox Huerta [facility] Work Phone: Comment on above: Room air hearing wnlDr. Álvaro ortega and had a glaucoma test 08-02-2017 13:53-0400 Respiratory Rate 18 /min Rox Huerta [facility] Work Phone: Comment on above: Pattern: Unlabored hearing wnlDr. Álvaro ortega and had a glaucoma test 08-02-2017 13:53-0400 Weight 63.62 kg Rox Huerta [facility] Work Phone: Comment on above: hearing willlDr. Zeynep and had a glauc kong test 07-04-2017 11:32-0400 BMI (Body Mass Index) 23.29 kg/m2 Rox Huerta [facility] Work Phone: 07-04-2017 11:32-0400 Body Temperature 97.1 [degF] Rox [facility] Internal Medicine Work Phone: Comment on above: Method: Temporal 07-04-2017 11:32-0400 Body weight 64.47 kg Rox [facility] Internal Medicine Work Phone: 07-04-2017 11:32-0400 BP Diastolic 70 mm[Hg] Rox [facility] Internal Medicine Work Phone: Comment on above: Patient Position: Sitting; Cuff Location : Left Arm; Cuff Size: Large 07-04-2017 11:32-0400 BP Systolic 158 mm[Hg] Rox [facility] Internal Medicine Work Phone: Comment on above: Patient Position: Sitting; Cuff Location : Left Arm; Cuff Size: Large 07-04-2017 11:32-0400 BSA (Body Surface Area) 1.72 m2 Rox [facility] Internal Medicine Work Phone: 07-04-2017 11:32-0400 Height 166.37 cm Rox [facility] Internal Medicine Work Phone: 07-04-2017 11:32-0400 Pulse (Heart Rate) 70 /min Rox [facility] Internal Medicine Work Phone: Comment on above: Pattern: Regular 07-04-2017 11:32-0400 Pulse Oximetry 99 % Rox [facility] Internal Medicine Work Phone: Comment on above: Room air 07-04-2017 11:32-0400 Respiratory Rate 18 /min Rox [facility] Internal Medicine Work Phone: Comment on above: Pattern: Unlabored 07-04-2017 11:32-0400 Weight 64.47 kg Rox [facility] Internal Medicine Work Phone: 06-25-2017 11:36-0400 BMI (Body Mass Index) 23.8 kg/m2 Rox Huerta [facility] Internal Medicine Work Phone: 06-25-2017 11:36-0400 Body weight 65.89 kg Rox Huerta [facility] Internal Medicine Work Phone: 06-25-2017 11:36-0400 BP Diastolic 90 mm[Hg] Rox [facility] Internal Medicine Work Phone: Comment on above: Patient Position: Sitting; Cuff Location : Left Arm; Cuff Size: Large 06-25-2017 11:36-0400 BP Systolic 154 mm[Hg] Rox [facility] Internal Medicine Work Phone: Comment on above: Patient Position: Sitting; Cuff Location : Left Arm; Cuff Size: Large 06-25-2017 11:36-0400 BSA (Body Surface Area) 1.74 m2 Rox [facility] Internal Medicine Work Phone: 06-25-2017 11:36-0400 Height 166.37 cm Rox [facility] Internal Medicine Work Phone: 06-25-2017 11:36-0400 Pulse (Heart Rate) 75 /min Rox [facility] Internal Medicine Work Phone: Comment on above: Pattern: Regular 06-25-2017 11:36-0400 Pulse Oximetry 97 % Rox [facility] Internal Medicine Work Phone: Comment on above: Room air 06-25-2017 11:36-0400 Respiratory Rate 18 /min Rox [facility] Internal Medicine Work Phone: Comment on above: Pattern: Unlabored 06-25-2017 11:36-0400 Weight 65.89 kg Rox [facility] Internal Medicine Work Phone: 05-21-2017 14:52-0500 BMI (Body Mass Index) 23.93 kg/m2 Rox Huerta [facility] Internal Medicine Work Phone: 05-21-2017 14:52-0500 Body Temperature 98.2 [degF] Rox [facility] Internal Medicine Work Phone: 05-21-2017 14:52-0500 Body weight 66.23 kg Rox [facility] Internal Medicine Work Phone: 05-21-2017 14:52-0500 BP Diastolic 82 mm[Hg] Rox [facility] Internal Medicine Work Phone: Comment on above: Patient Position: Sitting; Cuff Location : Left Arm; Cuff Size: Standard 05-21-2017 14:52-0500 BP Systolic 154 mm[Hg] Rox [facility] Internal Medicine Work Phone: Comment on above: Patient Position: Sitting; Cuff Location : Left Arm; Cuff Size: Standard 05-21-2017 14:52-0500 BSA (Body Surface Area) 1.74 m2 Rox [facility] Internal Medicine Work Phone: 05-21-2017 14:52-0500 Height 166.37 cm Rox [facility] Internal Medicine Work Phone: 05-21-2017 14:52-0500 Pulse (Heart Rate) 77 /min Rox [facility] Internal Medicine Work Phone: Comment on above: Pattern: Regular 05-21-2017 14:52-0500 Pulse Oximetry 99 % Rox [facility] Internal Medicine Work Phone: Comment on above: Room air 05-21-2017 14:52-0500 Respiratory Rate 16 /min Rox [facility] Internal Medicine Work Phone: Comment on above: Pattern: Unlabored 05-21-2017 14:52-0500 Weight 66.23 kg Rox [facility] Internal Medicine Work Phone: 04-12-2017 12:53-0500 BMI (Body Mass Index) 23.82 kg/m2 Rox Huerta [facility] Internal Medicine Work Phone: 04-12-2017 12:53-0500 Body weight 65.94 kg Rox [facility] Internal Medicine Work Phone: 04-12-2017 12:53-0500 BP Diastolic 80 mm[Hg] Rox [facility] Internal Medicine Work Phone: Comment on above: Patient Position: Sitting; Cuff Location : Left Arm; Cuff Size: Large 04-12-2017 12:53-0500 BP Systolic 122 mm[Hg] Rox [facility] Internal Medicine Work Phone: Comment on above: Patient Position: Sitting; Cuff Location : Left Arm; Cuff Size: Large 04-12-2017 12:53-0500 BSA (Body Surface Area) 1.74 m2 Rox [facility] Internal Medicine Work Phone: 04-12-2017 12:53-0500 Height 166.37 cm Rox Hu[facility] Internal Medicine Work Phone: 04-12-2017 12:53-0500 Pulse (Heart Rate) 77 /min Rox [facility] Internal Medicine Work Phone: Comment on above: Pattern: Regular 04-12-2017 12:53-0500 Pulse Oximetry 98 % Rox [facility] Internal Medicine Work Phone: Comment on above: Room air 04-12-2017 12:53-0500 Respiratory Rate 18 /min Rox [facility] Internal Medicine Work Phone: Comment on above: Pattern: Unlabored 04-12-2017 12:53-0500 Weight 65.94 kg [facility] Work Phone: 04-05-2017 14:24-0500 BMI (Body Mass Index) 23.82 kg/m2 [facility]ox [facility] Work Phone: 04-05-2017 14:24-0500 Body weight 65.94 kg [facility]ox [facility] Work Phone: 04-05-2017 14:24-0500 BP Diastolic 100 mm[Hg] [facility] Work Phone: Comment on above: Patient Position: Sitting; Cuff Location : Left Arm; Cuff Size: Standard 04-05-2017 14:24-0500 BP Systolic 162 mm[Hg] [facility] Work Phone: Comment on above: Patient Position: Sitting; Cuff Location : Left Arm; Cuff Size: Standard 04-05-2017 14:24-0500 BSA (Body Surface Area) 1.74 m2 [facility] Work Phone: 04-05-2017 14:24-0500 Height 166.37 cm [facility] Work Phone: 04-05-2017 14:24-0500 Pulse (Heart Rate) 81 /min [facility] Work Phone: Comment on above: Pattern: Regular 04-05-2017 14:24-0500 Pulse Oximetry 91 % [facility] Work Phone: Comment on above: Room air 04-05-2017 14:24-0500 Respiratory Rate 18 /min [facility] Work Phone: Comment on above: Pattern: Unlabored 04-05-2017 14:24-0500 Weight 65.94 kg [facility] Work Phone: 03-22-2017 10:12-0500 BMI (Body Mass Index) 24.66 kg/m2 [facility] Work Phone: 03-22-2017 10:12-0500 Body weight 68.27 kg Rox [facility] Internal Medicine Work Phone: 03-22-2017 10:12-0500 BP Diastolic 60 mm[Hg] Rox [facility] Internal Medicine Work Phone: Comment on above: Patient Position: Sitting; Cuff Location : Left Arm; Cuff Size: Large 03-22-2017 10:12-0500 BP Systolic 110 mm[Hg] Rox [facility] Internal Medicine Work Phone: Comment on above: Patient Position: Sitting; Cuff Location : Left Arm; Cuff Size: Large 03-22-2017 10:12-0500 BSA (Body Surface Area) 1.76 m2 Rox [facility] Internal Medicine Work Phone: 03-22-2017 10:12-0500 Height 166.37 cm Rox [facility] Medicine Work Phone: 03-22-2017 10:12-0500 Pulse (Heart Rate) 61 /min Rox [facility] Internal Medicine Work Phone: Comment on above: Pattern: Regular 03-22-2017 10:12-0500 Pulse Oximetry 98 % Rox [facility] Internal Medicine Work Phone: Comment on above: Room air 03-22-2017 10:12-0500 Respiratory Rate 18 /min Rox [facility] Internal Medicine Work Phone: Comment on above: Pattern: Unlabored 03-22-2017 10:12-0500 Weight 68.27 kg Rox [facility] Internal Medicine Work Phone: 02-05-2017 11:21-0500 BMI (Body Mass Index) 24.66 kg/m2 Rox Aguiar [facility] Internal Medicine Work Phone: 02-05-2017 11:21-0500 Body weight 68.27 kg Rox [facility] Internal Medicine Work Phone: 02-05-2017 11:21-0500 BP Diastolic 70 mm[Hg] Rox [facility] Internal Medicine Work Phone: Comment on above: Patient Position: Sitting; Cuff Location : Left Arm; Cuff Size: Standard 02-05-2017 11:21-0500 BP Systolic 120 mm[Hg] Rox [facility] Internal Medicine Work Phone: Comment on above: Patient Position: Sitting; Cuff Location : Left Arm; Cuff Size: Standard 02-05-2017 11:21-0500 BSA (Body Surface Area) 1.76 m2 Rox [facility] Internal Medicine Work Phone: 02-05-2017 11:21-0500 Height 166.37 cm Rox [facility] Internal Medicine Work Phone: 02-05-2017 11:21-0500 Pulse (Heart Rate) 82 /min Rox [facility] Internal Medicine Work Phone: Comment on above: Pattern: Regular 02-05-2017 11:21-0500 Pulse Oximetry 98 % Rox [facility] Internal Medicine Work Phone: Comment on above: Room air 02-05-2017 11:21-0500 Respiratory Rate 16 /min Rox [facility] Internal Medicine Work Phone: Comment on above: Pattern: Unlabored 02-05-2017 11:21-0500 Weight 68.27 kg Rox [facility] Internal Medicine Work Phone: 11-17-2016 11:22-0400 BMI (Body Mass Index) 24.99 kg/m2 Rox Huerta [facility] Internal Medicine Work Phone: 11-17-2016 11:22-0400 Body weight 69.17 kg Rox Huerta [facility] Internal Medicine Work Phone: 11-17-2016 11:22-0400 BP Diastolic 78 mm[Hg] Rox [facility] Internal Medicine Work Phone: Comment on above: Patient Position: Sitting; Cuff Location : Left Arm; Cuff Size: Large 11-17-2016 11:22-0400 BP Systolic 122 mm[Hg] Rox [facility] Internal Medicine Work Phone: Comment on above: Patient Position: Sitting; Cuff Location : Left Arm; Cuff Size: Large 11-17-2016 11:22-0400 BSA (Body Surface Area) 1.77 m2 Rox [facility] Internal Medicine Work Phone: 11-17-2016 11:22-0400 Height 166.37 cm Rox [facility] Internal Medicine Work Phone: 11-17-2016 11:22-0400 Pulse (Heart Rate) 77 /min Rox [facility] Internal Medicine Work Phone: Comment on above: Pattern: Regular 11-17-2016 11:22-0400 Pulse Oximetry 98 % Rox [facility] Internal Medicine Work Phone: Comment on above: Room air 11-17-2016 11:22-0400 Respiratory Rate 16 /min Rox [facility] Internal Medicine Work Phone: Comment on above: Pattern: Unlabored 11-17-2016 11:22-0400 Weight 69.17 kg Rox [facility] Internal Medicine Work Phone: 10-05-2016 10:18-0400 BMI (Body Mass Index) 24.48 kg/m2 Rox Huerta [facility] Internal Medicine Work Phone: 10-05-2016 10:18-0400 Body weight 67.76 kg Rox Huerta [facility] Internal Medicine Work Phone: 10-05-2016 10:18-0400 BP Diastolic 78 mm[Hg] Rox [facility] Internal Medicine Work Phone: Comment on above: Patient Position: Sitting; Cuff Location : Left Arm; Cuff Size: Large 10-05-2016 10:18-0400 BP Systolic 120 mm[Hg] Rox [facility] Internal Medicine Work Phone: Comment on above: Patient Position: Sitting; Cuff Location : Left Arm; Cuff Size: Large 10-05-2016 10:18-0400 BSA (Body Surface Area) 1.76 m2 Rox [facility] Internal Medicine Work Phone: 10-05-2016 10:18-0400 Height 166.37 cm Rox [facility] Internal Medicine Work Phone: 10-05-2016 10:18-0400 Pulse (Heart Rate) 89 /min Rox [facility] Internal Medicine Work Phone: Comment on above: Pattern: Regular 10-05-2016 10:18-0400 Pulse Oximetry 98 % Rox [facility] Internal Medicine Work Phone: Comment on above: Room air 10-05-2016 10:18-0400 Respiratory Rate 18 /min Rox [facility] Internal Medicine Work Phone: Comment on above: Pattern: Unlabored 10-05-2016 10:18-0400 Weight 67.76 kg Rox Hu[facility] Internal Medicine Work Phone: 08-30-2016 11:59-0400 BMI (Body Mass Index) 24.27 kg/m2 Rox Huerta [facility] Internal Medicine Work Phone: 08-30-2016 11:59-0400 Body weight 67.19 kg Rox Huerta [facility] Internal Medicine Work Phone: 08-30-2016 11:59-0400 BP Diastolic 78 mm[Hg] Rox [facility] Internal Medicine Work Phone: Comment on above: Patient Position: Sitting; Cuff Location : Left Arm; Cuff Size: Standard 08-30-2016 11:59-0400 BP Systolic 120 mm[Hg] Rox [facility] Internal Medicine Work Phone: Comment on above: Patient Position: Sitting; Cuff Location : Left Arm; Cuff Size: Standard 08-30-2016 11:59-0400 BSA (Body Surface Area) 1.75 m2 Rox [facility] Internal Medicine Work Phone: 08-30-2016 11:59-0400 Height 166.37 cm Rox [facility] Medicine Work Phone: 08-30-2016 11:59-0400 Pulse (Heart Rate) 76 /min Rox [facility] Internal Medicine Work Phone: Comment on above: Pattern: Regular 08-30-2016 11:59-0400 Pulse Oximetry 98 % Rox [facility] Internal Medicine Work Phone: Comment on above: Room air 08-30-2016 11:59-0400 Respiratory Rate 18 /min Rox [facility] Internal Medicine Work Phone: Comment on above: Pattern: Unlabored 08-30-2016 11:59-0400 Weight 67.19 kg Rox [facility] Internal Medicine Work Phone: 08-28-2016 14:28-0400 BMI (Body Mass Index) 24.27 kg/m2 Rox Huerta [facility] Internal Medicine Work Phone: 08-28-2016 14:28-0400 Body weight 67.19 kg Rox [facility] Internal Medicine Work Phone: 08-28-2016 14:28-0400 BP Diastolic 84 mm[Hg] Rox [facility] Internal Medicine Work Phone: Comment on above: Patient Position: Sitting; Cuff Location : Left Arm; Cuff Size: Standard 08-28-2016 14:28-0400 BP Systolic 182 mm[Hg] Rox [facility] Internal Medicine Work Phone: Comment on above: Patient Position: Sitting; Cuff Location : Left Arm; Cuff Size: Standard 08-28-2016 14:28-0400 BSA (Body Surface Area) 1.75 m2 Rox [facility] Internal Medicine Work Phone: 08-28-2016 14:28-0400 Height 166.37 cm Rox [facility] Medicine Work Phone: 08-28-2016 14:28-0400 Pulse (Heart Rate) 92 /min Rox [facility] Medicine Work Phone: Comment on above: Pattern: Regular 08-28-2016 14:28-0400 Pulse Oximetry 98 % Rox [facility] Internal Medicine Work Phone: Comment on above: Room air 08-28-2016 14:28-0400 Respiratory Rate 18 /min Rox [facility] Internal Medicine Work Phone: Comment on above: Pattern: Unlabored 08-28-2016 14:28-0400 Weight 67.19 kg Rox Huerta [facility] Internal Medicine Work Phone: 06-29-2016 11:32-0400 BMI (Body Mass Index) 24.77 kg/m2 Rox Huerta [facility] Internal Medicine Work Phone: 06-29-2016 11:32-0400 Body weight 68.55 kg Rox [facility]erta [facility] Internal Medicine Work Phone: 06-29-2016 11:32-0400 BP Diastolic 80 mm[Hg] Rox [facility] Internal Medicine Work Phone: Comment on above: Patient Position: Sitting; Cuff Location : Left Arm; Cuff Size: Standard 06-29-2016 11:32-0400 BP Systolic 138 mm[Hg] Rox [facility] Internal Medicine Work Phone: Comment on above: Patient Position: Sitting; Cuff Location : Left Arm; Cuff Size: Standard 06-29-2016 11:32-0400 BSA (Body Surface Area) 1.77 m2 Rox [facility] Internal Medicine Work Phone: 06-29-2016 11:32-0400 Height 166.37 cm Rox [facility] Medicine Work Phone: 06-29-2016 11:32-0400 Pulse (Heart Rate) 76 /min Rox [facility] Internal Medicine Work Phone: Comment on above: Pattern: Regular 06-29-2016 11:32-0400 Pulse Oximetry 98 % Rox [facility] Internal Medicine Work Phone: Comment on above: Room air 06-29-2016 11:32-0400 Respiratory Rate 18 /min Rox [facility] Internal Medicine Work Phone: Comment on above: Pattern: Unlabored 06-29-2016 11:32-0400 Weight 68.55 kg Rox [facility]erta [facility] Internal Medicine Work Phone: 06-15-2016 11:17-0400 BMI (Body Mass Index) 24.77 kg/m2 [facility] Work Phone: 06-15-2016 11:17-0400 Body weight 68.55 kg Rox [facility] Medicine Work Phone: 06-15-2016 11:17-0400 BP Diastolic 78 mm[Hg] Rox [facility] Medicine Work Phone: Comment on above: Patient Position: Sitting; Cuff Location : Left Arm; Cuff Size: Large 06-15-2016 11:17-0400 BP Systolic 138 mm[Hg] Rox [facility] Internal Medicine Work Phone: Comment on above: Patient Position: Sitting; Cuff Location : Left Arm; Cuff Size: Large 06-15-2016 11:17-0400 BSA (Body Surface Area) 1.77 m2 Rox [facility] Work Phone: 06-15-2016 11:17-0400 Height 166.37 cm Rox [facility] Medicine Work Phone: 06-15-2016 11:17-0400 Pulse (Heart Rate) 80 /min Rox [facility] Medicine Work Phone: Comment on above: Pattern: Regular 06-15-2016 11:17-0400 Pulse Oximetry 98 % Rox [facility] Internal Medicine Work Phone: Comment on above: Room air 06-15-2016 11:17-0400 Respiratory Rate 18 /min Rox [facility] Work Phone: Comment on above: Pattern: Unlabored 06-15-2016 11:17-0400 Weight 68.55 kg Rox [facility]erta [facility] Medicine Work Phone: 05-25-2016 11:19-0500 BMI (Body Mass Index) 24.83 kg/m2 [facility] Work Phone: 05-25-2016 11:19-0500 Body weight 68.72 kg Rox [facility]erta [facility] Medicine Work Phone: 05-25-2016 11:19-0500 BP Diastolic 82 mm[Hg] Rox [facility] Internal Medicine Work Phone: Comment on above: Patient Position: Sitting; Cuff Location : Left Arm; Cuff Size: Large 05-25-2016 11:19-0500 BP Systolic 158 mm[Hg] Rox [facility] Medicine Work Phone: Comment on above: Patient Position: Sitting; Cuff Location : Left Arm; Cuff Size: Large 05-25-2016 11:19-0500 BSA (Body Surface Area) 1.77 m2 Rox [facility] Medicine Work Phone: 05-25-2016 11:19-0500 Height 166.37 cm Rox [facility] Medicine Work Phone: 05-25-2016 11:19-0500 Pulse (Heart Rate) 90 /min Rox [facility] Medicine Work Phone: Comment on above: Pattern: Regular 05-25-2016 11:19-0500 Pulse Oximetry 98 % Rox [facility] Medicine Work Phone: Comment on above: Room air 05-25-2016 11:19-0500 Respiratory Rate 18 /min Rox [facility] Work Phone: Comment on above: Pattern: Unlabored 05-25-2016 11:19-0500 Weight 68.72 kg Rox Huerta [facility] Medicine Work Phone: 03-06-2016 11:26-0500 BMI (Body Mass Index) 24.46 kg/m2 Rox Huerta [facility] Internal Medicine Work Phone: 03-06-2016 11:26-0500 Body weight 67.7 kg Rox Huerta [facility] Medicine Work Phone: 03-06-2016 11:26-0500 BP Diastolic 78 mm[Hg] Rox [facility] Medicine Work Phone: Comment on above: Patient Position: Sitting; Cuff Location : Left Arm; Cuff Size: Standard 03-06-2016 11:26-0500 BP Systolic 138 mm[Hg] Rox [facility] Medicine Work Phone: Comment on above: Patient Position: Sitting; Cuff Location : Left Arm; Cuff Size: Standard 03-06-2016 11:26-0500 BSA (Body Surface Area) 1.76 m2 Rox [facility] Work Phone: 03-06-2016 11:26-0500 Height 166.37 cm Rox [facility] Medicine Work Phone: 03-06-2016 11:26-0500 Pulse (Heart Rate) 89 /min Rox [facility] Work Phone: Comment on above: Pattern: Regular 03-06-2016 11:26-0500 Pulse Oximetry 99 % Rox [facility] Work Phone: Comment on above: Room air 03-06-2016 11:26-0500 Respiratory Rate 18 /min Rox [facility] Work Phone: Comment on above: Pattern: Unlabored 03-06-2016 11:26-0500 Weight 67.7 kg Rox Hu[facility] Internal Medicine Work Phone: 02-08-2016 11:30-0500 BMI (Body Mass Index) 24.6 kg/m2 Rox Huerta [facility] Internal Medicine Work Phone: Comment on above: hearing wnlDr. Rivas and had a glaucom a test done 02-08-2016 11:30-0500 Body weight 68.1 kg Rox Huerta [facility] Internal Medicine Work Phone: Comment on above: hearing wnlDr. Rivas and had a glaucom a test done 02-08-2016 11:30-0500 BP Diastolic 82 mm[Hg] Rox Hu[facility] Internal Medicine Work Phone: Comment on above: Patient Position: Sitting; Cuff Location : Left Arm; Cuff Size: Standard hearing wnlDr. Judith christopher and had a glaucoma test done 02-08-2016 11:30-0500 BP Systolic 148 mm[Hg] Rox [facility] Internal Medicine Work Phone: Comment on above: Patient Position: Sitting; Cuff Location : Left Arm; Cuff Size: Standard hearing wnlDr. Wong er and had a glaucoma test done 02-08-2016 11:30-0500 BSA (Body Surface Area) 1.76 m2 Rox [facility] Internal Medicine Work Phone: Comment on above: hearing wnlDr. Rivas and had a glaucom a test done 02-08-2016 11:30-0500 Height 166.37 cm [facility] Internal Medicine Work Phone: Comment on above: hearing willlDrKatharina Rivas and had a glaucom a test done 02-08-2016 11:30-0500 Pulse (Heart Rate) 79 /min [facility] Internal Medicine Work Phone: Comment on above: Pattern: Regular hearing wnlDr. Wong er and had a glaucoma test done 02-08-2016 11:30-0500 Pulse Oximetry 98 % Rox [facility] Internal Medicine Work Phone: Comment on above: Room air hearing wnlDr. Wong er and had a glaucoma test done 02-08-2016 11:30-0500 Respiratory Rate 18 /min Rox [facility] Internal Medicine Work Phone: Comment on above: Pattern: Unlabored hearing wnlDr. Wong er and had a glaucoma test done 02-08-2016 11:30-0500 Weight 68.1 kg Rox [facility] Internal Medicine Work Phone: Comment on above: hearing wnlDr. Rivas and had a glaucom a test done 01-20-2016 10:58-0400 BMI (Body Mass Index) 25.28 kg/m2 Rox [facility] Internal Medicine Work Phone: 01-20-2016 10:58-0400 Body weight 69.97 kg [facility] Internal Medicine Work Phone: 01-20-2016 10:58-0400 BP Diastolic 78 mm[Hg] [facility] Internal Medicine Work Phone: Comment on above: Patient Position: Sitting; Cuff Location : Left Arm; Cuff Size: Large 01-20-2016 10:58-0400 BP Systolic 142 mm[Hg] Rox [facility]erta [facility] Internal Medicine Work Phone: Comment on above: Patient Position: Sitting; Cuff Location : Left Arm; Cuff Size: Large 01-20-2016 10:58-0400 BSA (Body Surface Area) 1.78 m2 Rox Huerta [facility] Internal Medicine Work Phone: 01-20-2016 10:58-0400 Height 166.37 cm Rox Huerta [facility] Medicine Work Phone: 01-20-2016 10:58-0400 Pulse (Heart Rate) 71 /min Rox Huerta [facility] Internal Medicine Work Phone: Comment on above: Pattern: Regular 01-20-2016 10:58-0400 Pulse Oximetry 98 % Rox [facility]erta [facility] Internal Medicine Work Phone: Comment on above: Room air 01-20-2016 10:58-0400 Respiratory Rate 18 /min Rox Huerta [facility] Internal Medicine Work Phone: Comment on above: Pattern: Unlabored 01-20-2016 10:58-0400 Weight 69.97 kg Rox Huerta [facility] Internal Medicine Work Phone: 08-11-2015 11:02-0400 BMI (Body Mass Index) 23.11 kg/m2 Rox Huerta [facility] Internal Medicine Work Phone: 08-11-2015 11:02-0400 Body weight 63.96 kg Rox Huerta [facility] Internal Medicine Work Phone: 08-11-2015 11:02-0400 BP Diastolic 60 mm[Hg] Rox Huerta [facility] Internal Medicine Work Phone: Comment on above: Patient Position: Sitting; Cuff Location : Left Arm; Cuff Size: Standard 08-11-2015 11:02-0400 BP Systolic 120 mm[Hg] Rox Huerta [facility] Internal Medicine Work Phone: Comment on above: Patient Position: Sitting; Cuff Location : Left Arm; Cuff Size: Standard 08-11-2015 11:02-0400 BSA (Body Surface Area) 1.71 m2 Rox Huerta [facility] Internal Medicine Work Phone: 08-11-2015 11:02-0400 Height 166.37 cm Rox Huerta [facility] Internal Medicine Work Phone: 08-11-2015 11:02-0400 Pulse (Heart Rate) 75 /min Rox Huerta [facility] Internal Medicine Work Phone: Comment on above: Pattern: Regular 08-11-2015 11:02-0400 Pulse Oximetry 98 % Rox Huerta [facility] Internal Medicine Work Phone: Comment on above: Room air 08-11-2015 11:02-0400 Respiratory Rate 18 /min Rox Huerta [facility] Internal Medicine Work Phone: Comment on above: Pattern: Unlabored 08-11-2015 11:02-0400 Weight 63.96 kg Rox Huerta [facility] Internal Medicine Work Phone: 02-17-2015 14:05-0500 BMI (Body Mass Index) 25.79 kg/m2 Rox Huerta [facility] Internal Medicine Work Phone: 02-17-2015 14:05-0500 Body Temperature 97.6 [degF] Rox Huerta [facility] Internal Medicine Work Phone: Comment on above: Method: Tympanic 02-17-2015 14:05-0500 Body weight 71.39 kg Rox Huerta [facility] Internal Medicine Work Phone: 02-17-2015 14:05-0500 BP Diastolic 62 mm[Hg] Rox Huerta [facility] Internal Medicine Work Phone: Comment on above: Patient Position: Sitting; Cuff Location : Left Arm; Cuff Size: Standard 02-17-2015 14:05-0500 BP Systolic 122 mm[Hg] Rox Huerta [facility] Internal Medicine Work Phone: Comment on above: Patient Position: Sitting; Cuff Location : Left Arm; Cuff Size: Standard 02-17-2015 14:05-0500 BSA (Body Surface Area) 1.8 m2 Rox Huerta [facility] Internal Medicine Work Phone: 02-17-2015 14:05-0500 Height 166.37 cm Rox Huerta [facility] Internal Medicine Work Phone: 02-17-2015 14:05-0500 Pulse (Heart Rate) 82 /min Rox Huerta [facility] Internal Medicine Work Phone: Comment on above: Pattern: Regular 02-17-2015 14:05-0500 Pulse Oximetry 93 % Rox Huerta [facility] Internal Medicine Work Phone: Comment on above: Room air 02-17-2015 14:05-0500 Respiratory Rate 18 /min Rox Huerta [facility] Internal Medicine Work Phone: Comment on above: Pattern: Unlabored 02-17-2015 14:05-0500 Weight 71.39 kg Rox Huerta [facility] Internal Medicine Work Phone: 01-07-2015 09:19-0400 BMI (Body Mass Index) 26.28 kg/m2 Rox Huerta [facility] Internal Medicine Work Phone: 01-07-2015 09:19-0400 Body weight 72.75 kg Rox Huerta [facility] Internal Medicine Work Phone: 01-07-2015 09:19-0400 BP Diastolic 70 mm[Hg] Rox Huerta [facility] Internal Medicine Work Phone: Comment on above: Patient Position: Sitting; Cuff Location : Left Arm; Cuff Size: Standard 01-07-2015 09:19-0400 BP Systolic 120 mm[Hg] Rox Huerta [facility] Internal Medicine Work Phone: Comment on above: Patient Position: Sitting; Cuff Location : Left Arm; Cuff Size: Standard 01-07-2015 09:19-0400 BSA (Body Surface Area) 1.81 m2 Rox Huerta [facility] Internal Medicine Work Phone: 01-07-2015 09:190400 Height 166.37 cm Rox Huerta [facility] Medicine Work Phone: 01-07-2015 09:19-0400 Pulse (Heart Rate) 71 /min Rox Huerta [facility] Internal Medicine Work Phone: Comment on above: Pattern: Regular 01-07-2015 09:19-0400 Pulse Oximetry 97 % Rox Huerta [facility] Internal Medicine Work Phone: Comment on above: Room air 01-07-2015 09:19-0400 Respiratory Rate 18 /min Rox Huerta [facility] Internal Medicine Work Phone: Comment on above: Pattern: Unlabored 01-07-2015 09:19-0400 Weight 72.75 kg Rox Huerta [facility] Internal Medicine Work Phone: 12-10-2014 08:55-0400 BMI (Body Mass Index) 26.38 kg/m2 Rox Huerta [facility] Internal Medicine Work Phone: 12-10-2014 08:55-0400 Body Temperature 97.6 [degF] Rox Huerta [facility] Internal Medicine Work Phone: Comment on above: Method: Temporal 12-10-2014 08:55-0400 Body weight 73.03 kg Rox Huerta [facility] Medicine Work Phone: 12-10-2014 08:55-0400 BP Diastolic 68 mm[Hg] Rox Huerta [facility] Internal Medicine Work Phone: Comment on above: Patient Position: Sitting; Cuff Location : Left Arm; Cuff Size: Standard 12-10-2014 08:55-0400 BP Systolic 108 mm[Hg] Rox Huerta [facility] Internal Medicine Work Phone: Comment on above: Patient Position: Sitting; Cuff Location : Left Arm; Cuff Size: Standard 12-10-2014 08:55-0400 BSA (Body Surface Area) 1.81 m2 Rox Huerta [facility] Internal Medicine Work Phone: 12-10-2014 08:55-0400 Height 166.37 cm Rox Huerta [facility] Medicine Work Phone: 12-10-2014 08:55-0400 Pulse (Heart Rate) 72 /min Rox Huerta [facility] Medicine Work Phone: Comment on above: Pattern: Regular 12-10-2014 08:55-0400 Respiratory Rate 17 /min Rox Huerta [facility] Internal Medicine Work Phone: Comment on above: Pattern: Unlabored 12-10-2014 08:55-0400 Weight 73.03 kg Rox Huerta [facility] Internal Medicine Work Phone: 12-02-2014 07:57-0400 BMI (Body Mass Index) 25.56 kg/m2 Rox Huerta [facility] Internal Medicine Work Phone: 12-02-2014 07:57-0400 Body Temperature 97.2 [degF] Rox Huerta [facility] Medicine Work Phone: Comment on above: Method: Temporal 12-02-2014 07:57-0400 Body weight 70.76 kg Rox Huerta [facility] Medicine Work Phone: 12-02-2014 07:57-0400 BP Diastolic 68 mm[Hg] Rox Huerta [facility] Medicine Work Phone: Comment on above: Patient Position: Sitting; Cuff Location : Left Arm; Cuff Size: Standard 12-02-2014 07:57-0400 BP Systolic 126 mm[Hg] Rox Huerta [facility] Medicine Work Phone: Comment on above: Patient Position: Sitting; Cuff Location : Left Arm; Cuff Size: Standard 12-02-2014 07:57-0400 BSA (Body Surface Area) 1.79 m2 Rox Huerta [facility] Medicine Work Phone: 12-02-2014 07:57-0400 Height 166.37 cm Rox Huerta [facility] Medicine Work Phone: 12-02-2014 07:57-0400 Pulse (Heart Rate) 91 /min Rox Huerta [facility] Medicine Work Phone: Comment on above: Pattern: Regular 12-02-2014 07:57-0400 Pulse Oximetry 98 % Rox Huerta [facility] Medicine Work Phone: Comment on above: Room air 12-02-2014 07:57-0400 Respiratory Rate 16 /min Rox Huerta [facility] Medicine Work Phone: Comment on above: Pattern: Unlabored 12-02-2014 07:57-0400 Weight 70.76 kg Rox Huerta [facility] Medicine Work Phone: 11-26-2014 11:43-0400 BMI (Body Mass Index) 25.56 kg/m2 Rox Huerta [facility] Internal Medicine Work Phone: Comment on above: had eye exam with Dr Moore in [place] 6mos ago with glaucoma test 11-26-2014 11:43-0400 Body weight 70.76 kg Rox Huerta [facility] Internal Medicine Work Phone: Comment on above: had eye exam with Dr Moore in [place] 6mos ago with glaucoma test 11-26-2014 11:43-0400 BP Diastolic 74 mm[Hg] Rox Bradley [facility] Medicine Work Phone: Comment on above: Patient Position: Sitting; Cuff Location : Left Arm; Cuff Size: Standard had eye exam with Dr Moore in [place] 6mos ago with glaucoma test 11-26-2014 11:43-0400 BP Systolic 124 mm[Hg] Rox Huerta [facility] Medicine Work Phone: Comment on above: Patient Position: Sitting; Cuff Location : Left Arm; Cuff Size: Standard had eye exam with Dr Moore in [place] 6mos ago with glaucoma test 11-26-2014 11:43-0400 BSA (Body Surface Area) 1.79 m2 Rox Cohenon [facility] Medicine Work Phone: Comment on above: had eye exam with Dr Moore in [place] 6mos ago with glaucoma test 11-26-2014 11:43-0400 Height 166.37 cm Rox Bradley [facility] Medicine Work Phone: Comment on above: had eye exam with Dr Moore in [place] 6mos ago with glaucoma test 11-26-2014 11:43-0400 Pulse (Heart Rate) 74 /min Rox Bradley [facility] Work Phone: Comment on above: Pattern: Regular had eye exam with Dr Moore in [place] 6mos ago with glaucoma test 11-26-2014 11:43-0400 Respiratory Rate 17 /min Rox Cohenon [facility] Work Phone: Comment on above: Pattern: Unlabored had eye exam with Dr Moore in [place] 6mos ago with glaucoma test 11-26-2014 11:43-0400 Weight 70.76 kg Rox Cohenon [facility] Medicine Work Phone: Comment on above: had eye exam with Dr Moore in [place] 6mos ago with glaucoma test 11-12-2014 12:30-0400 BMI (Body Mass Index) 27.09 kg/m2 Roxalyson Huerta [facility] Internal Medicine Work Phone: 11-12-2014 12:30-0400 Body Temperature 98.2 [degF] Rox Cohenon [facility] Medicine Work Phone: Comment on above: Method: Temporal 11-12-2014 12:30-0400 Body weight 74.99 kg Rox Cohenon [facility] Medicine Work Phone: 11-12-2014 12:30-0400 BP Diastolic 74 mm[Hg] Rox Huerta [facility] Medicine Work Phone: Comment on above: Patient Position: Sitting; Cuff Location : Left Arm; Cuff Size: Standard 11-12-2014 12:30-0400 BP Systolic 122 mm[Hg] Rox Huerta [facility] Medicine Work Phone: Comment on above: Patient Position: Sitting; Cuff Location : Left Arm; Cuff Size: Standard 11-12-2014 12:30-0400 BSA (Body Surface Area) 1.83 m2 Rox Cohenon [facility] Work Phone: 11-12-2014 12:30-0400 Height 166.37 cm Rox Bradley [facility] Medicine Work Phone: 11-12-2014 12:30-0400 Pulse (Heart Rate) 72 /min Roxtherese Huerta [facility] Medicine Work Phone: Comment on above: Pattern: Regular 11-12-2014 12:30-0400 Respiratory Rate 16 /min Rox Huerta [facility] Work Phone: Comment on above: Pattern: Unlabored 11-12-2014 12:30-0400 Weight 74.99 kg Rox Huerta [facility] Work Phone: 03-18-2014 13:24-0500 BMI (Body Mass Index) 27.09 kg/m2 Rox Huerta [facility] Internal Medicine Work Phone: 03-18-2014 13:24-0500 Body Temperature 97.9 [degF] Rox Huerta [facility] Medicine Work Phone: Comment on above: Method: Oral 03-18-2014 13:24-0500 Body weight 74.99 kg Rox Huerta [facility] Medicine Work Phone: 03-18-2014 13:24-0500 BP Diastolic 72 mm[Hg] Rox Huerta [facility] Medicine Work Phone: Comment on above: Patient Position: Sitting; Cuff Location : Left Arm; Cuff Size: Standard 03-18-2014 13:24-0500 BP Systolic 116 mm[Hg] Rox Huerta [facility] Work Phone: Comment on above: Patient Position: Sitting; Cuff Location : Left Arm; Cuff Size: Standard 03-18-2014 13:24-0500 BSA (Body Surface Area) 1.83 m2 Rox Huerta [facility] Work Phone: 03-18-2014 13:24-0500 Height 166.37 cm Rox Huerta [facility] Medicine Work Phone: 03-18-2014 13:24-0500 Pulse (Heart Rate) 60 /min Rox Huerta [facility] Work Phone: Comment on above: Pattern: Regular 03-18-2014 13:24-0500 Pulse Oximetry 96 % Rox Huerta [facility] Medicine Work Phone: Comment on above: Room air 03-18-2014 13:24-0500 Respiratory Rate 18 /min Rox Huerta [facility] Work Phone: 03-18-2014 13:24-0500 Weight 74.99 kg Rox Huerta [facility] Work Phone: 03-16-2014 15:49-0500 BMI (Body Mass Index) 27.09 kg/m2 Rox [facility]ar [facility] Work Phone: 03-16-2014 15:49-0500 Body Temperature 97.7 [degF] Rox Huerta [facility] Work Phone: Comment on above: Method: Oral 03-16-2014 15:49-0500 Body weight 74.99 kg Rox Huerta [facility] Medicine Work Phone: 03-16-2014 15:49-0500 BP Diastolic 60 mm[Hg] Rox Huerta [facility] Medicine Work Phone: Comment on above: Patient Position: Sitting; Cuff Location : Left Arm; Cuff Size: Standard 03-16-2014 15:49-0500 BP Systolic 110 mm[Hg] Rox Huerta [facility] Medicine Work Phone: Comment on above: Patient Position: Sitting; Cuff Location : Left Arm; Cuff Size: Standard 03-16-2014 15:49-0500 BSA (Body Surface Area) 1.83 m2 Rox Huerta [facility] Medicine Work Phone: 03-16-2014 15:49-0500 Height 166.37 cm Rox Huerta [facility] Medicine Work Phone: 03-16-2014 15:49-0500 Pulse (Heart Rate) 70 /min Rox Huerta [facility] Medicine Work Phone: Comment on above: Pattern: Regular 03-16-2014 15:49-0500 Respiratory Rate 18 /min Rox Huerta [facility] Medicine Work Phone: 03-16-2014 15:49-0500 Weight 74.99 kg Rox Huerta [facility] Medicine Work Phone: 07-29-2013 14:15-0400 BMI (Body Mass Index) 27.09 kg/m2 Rox Aguiar [facility] Internal Medicine Work Phone: 07-29-2013 14:15-0400 Body Temperature 98.6 [degF] Rox Huerta [facility] Medicine Work Phone: Comment on above: Method: Oral 07-29-2013 14:15-0400 Body weight 74.99 kg Rox Huerta [facility] Medicine Work Phone: 07-29-2013 14:15-0400 BP Diastolic 74 mm[Hg] Rox Huerta [facility] Work Phone: Comment on above: Patient Position: Sitting; Cuff Location : Left Arm; Cuff Size: Standard 07-29-2013 14:15-0400 BP Systolic 126 mm[Hg] Rox Huerta [facility] Medicine Work Phone: Comment on above: Patient Position: Sitting; Cuff Location : Left Arm; Cuff Size: Standard 07-29-2013 14:15-0400 BSA (Body Surface Area) 1.83 m2 Rox Huerta [facility] Medicine Work Phone: 07-29-2013 14:15-0400 Height 166.37 cm Rox Huerta [facility] Medicine Work Phone: 07-29-2013 14:15-0400 Pulse (Heart Rate) 86 /min Rox Huerta [facility] Work Phone: Comment on above: Pattern: Regular 07-29-2013 14:15-0400 Pulse Oximetry 98 % Rox Huerta [facility] Medicine Work Phone: Comment on above: Room air 07-29-2013 14:15-0400 Respiratory Rate 18 /min Rox Huerta [facility] Work Phone: 07-29-2013 14:15-0400 Weight 74.99 kg Rox Huerta [facility] Work Phone: 06-11-2013 14:07-0400 BMI (Body Mass Index) 27.09 kg/m2 Rox Aguiar [facility] Internal Medicine Work Phone: Comment on above: vision DrGuptahearinf [facility] 06-11-2013 14:07-0400 Body Temperature 96.1 [degF] [facility]: Comment on above: Method: Oral vision [facility] 06-11-2013 14:07-0400 Body [facility] 74.99 [facility] Work [facility]: Comment on above: vision [facility] 06-11-2013 14:07-0400 BP Diastolic 70 mm[Hg] Rox [facility] Internal Medicine Work Phone: Comment on above: Patient Position: Sitting; Cuff Location : Left Arm; Cuff Size: Large vision [facility] 06-11-2013 14:07-0400 BP Systolic 120 mm[Hg] [facility] Work [facility]: Comment on above: Patient Position: Sitting; Cuff Location : Left Arm; Cuff Size: Large vision [facility] 06-11-2013 14:07-0400 BSA (Body Surface Area) 1.83 m2 Rox [facility] Internal Medicine Work Phone: Comment on above: vision [facility] 06-11-2013 14:07-0400 Height 166.37 cm Rox [facility] Internal Medicine Work Phone: Comment on above: vision [facility] 06-11-2013 14:07-0400 Pulse (Heart Rate) 77 /min Rox [facility] Internal Medicine Work Phone: Comment on above: Pattern: Regular vision [facility] 06-11-2013 14:07-0400 Pulse Oximetry 97 % Rox [facility] Internal Medicine Work Phone: Comment on above: Room air vision [facility] 06-11-2013 14:07-0400 Respiratory Rate 20 /min Rox [facility] Internal Medicine Work Phone: Comment on above: Pattern: Unlabored vision [facility] 06-11-2013 14:07-0400 Weight 74.99 kg Rox Huerta [facility] Medicine Work Phone: Comment on above: vision [facility]ptahearinf [facility] 05-21-2013 13:06-0500 BMI (Body Mass Index) 26.93 kg/m2 [facility] Work Phone: 05-21-2013 13:06-0500 Body Temperature 97.6 [degF] Rox Huerat [facility] Medicine Work Phone: Comment on above: Method: Oral 05-21-2013 13:06-0500 Body weight 74.53 kg Rox Huerta [facility] Medicine Work Phone: 05-21-2013 13:06-0500 BP Diastolic 80 mm[Hg] Rox Huerta [facility] Medicine Work Phone: Comment on above: Patient Position: Sitting; Cuff Location : Left Arm; Cuff Size: Large 05-21-2013 13:06-0500 BP Systolic 120 mm[Hg] Rox Huerta [facility] Medicine Work Phone: Comment on above: Patient Position: Sitting; Cuff Location : Left Arm; Cuff Size: Large 05-21-2013 13:06-0500 BSA (Body Surface Area) 1.83 m2 Rox Huerta [facility] Medicine Work Phone: 05-21-2013 13:06-0500 Height 166.37 cm Rox Huerta [facility] Work Phone: 05-21-2013 13:06-0500 Pulse (Heart Rate) 77 /min Rox Huerta [facility] Medicine Work Phone: Comment on above: Pattern: Regular 05-21-2013 13:06-0500 Pulse Oximetry 97 % Rox Huerta [facility] Medicine Work Phone: Comment on above: Room air 05-21-2013 13:06-0500 Respiratory Rate 20 /min Rox Huerta [facility] Medicine Work Phone: Comment on above: Pattern: Unlabored 05-21-2013 13:06-0500 Weight 74.53 kg Rox Huerta [facility] Medicine Work Phone: 04-30-2013 09:58-0500 BMI (Body Mass Index) 26.6 kg/m2 Rox Aguiar [facility] Work Phone: 04-30-2013 09:58-0500 Body weight 73.62 kg Rox Huerta [facility] Medicine Work Phone: 04-30-2013 09:58-0500 BP Diastolic 80 mm[Hg] Rox Huerta [facility] Medicine Work Phone: Comment on above: Patient Position: Sitting; Cuff Location : Left Arm; Cuff Size: Large 04-30-2013 09:58-0500 BP Systolic 120 mm[Hg] Rox Huerta [facility] Medicine Work Phone: Comment on above: Patient Position: Sitting; Cuff Location : Left Arm; Cuff Size: Large 04-30-2013 09:58-0500 BSA (Body Surface Area) 1.82 m2 Rox Huerta [facility] Medicine Work Phone: 04-30-2013 09:58-0500 Height 166.37 cm Rox Huerta [facility] Medicine Work Phone: 04-30-2013 09:58-0500 Pulse (Heart Rate) 59 /min Rox Huerta [facility] Medicine Work Phone: Comment on above: Pattern: Regular 04-30-2013 09:58-0500 Pulse Oximetry 98 % Rox Huerta [facility] Medicine Work Phone: Comment on above: Room air 04-30-2013 09:58-0500 Respiratory Rate 20 /min Rox Huerta [facility] Medicine Work Phone: Comment on above: Pattern: Unlabored 04-30-2013 09:58-0500 Weight 73.62 kg Rox Huerta [facility] Medicine Work Phone: 12-27-2012 11:15-0400 BMI (Body Mass Index) 26.58 kg/m2 Rox Aguiar [facility] Internal Medicine Work Phone: 12-27-2012 11:15-0400 Body weight 73.57 kg Rox Huerta [facility] Medicine Work Phone: 12-27-2012 11:15-0400 BP Diastolic 76 mm[Hg] Rox Huerta [facility] Work Phone: Comment on above: Patient Position: Sitting; Cuff Location : Left Arm; Cuff Size: Standard 12-27-2012 11:15-0400 BP Systolic 148 mm[Hg] Rox Huerta [facility] Work Phone: Comment on above: Patient Position: Sitting; Cuff Location : Left Arm; Cuff Size: Standard 12-27-2012 11:15-0400 BSA (Body Surface Area) 1.82 m2 Rox Huerta [facility] Medicine Work Phone: 12-27-2012 11:15-0400 Height 166.37 cm Rox Huerta [facility] Work Phone: 12-27-2012 11:15-0400 Pulse (Heart Rate) 70 /min Rox Huerta [facility] Work Phone: Comment on above: Pattern: Regular 12-27-2012 11:15-0400 Pulse Oximetry 98 % Rox Huerta [facility] Medicine Work Phone: Comment on above: Room air 12-27-2012 11:15-0400 Respiratory Rate 20 /min Rox Huerta [facility] Work Phone: Comment on above: Pattern: Unlabored 12-27-2012 11:15-0400 Weight 73.57 kg Rox Huerta [facility] Medicine Work Phone: 12-11-2012 15:13-0400 BMI (Body Mass Index) 26.61 kg/m2 Rox Huerta [facility] Internal Medicine Work Phone: 12-11-2012 15:13-0400 Body Temperature 98.1 [degF] Rox Huerta [facility] Medicine Work Phone: Comment on above: Method: Oral 12-11-2012 15:13-0400 Body weight 73.65 kg Rox Huerta [facility] Medicine Work Phone: 12-11-2012 15:13-0400 BP Diastolic 62 mm[Hg] Rox Huerta [facility] Work Phone: Comment on above: Patient Position: Sitting; Cuff Location : Left Arm; Cuff Size: Large 12-11-2012 15:13-0400 BP Systolic 122 mm[Hg] Rox [facility] Work Phone: Comment on above: Patient Position: Sitting; Cuff Location : Left Arm; Cuff Size: Large 12-11-2012 15:13-0400 BSA (Body Surface Area) 1.82 m2 Rox Huerta [facility] Medicine Work Phone: 12-11-2012 15:130400 Height 166.37 cm Rox Huerta [facility] Medicine Work Phone: 12-11-2012 15:13-0400 Pulse (Heart Rate) 60 /min Rox Huerta [facility] Work Phone: Comment on above: Pattern: Regular 12-11-2012 15:13-0400 Pulse Oximetry 98 % Rox Huerta [facility] Medicine Work Phone: Comment on above: Room air 12-11-2012 15:13-0400 Respiratory Rate 18 /min Rox Huerta [facility] Medicine Work Phone: Comment on above: Pattern: Unlabored 12-11-2012 15:13-0400 Weight 73.65 kg Rox Huerta [facility] Internal Medicine Work Phone: 10-07-2012 10:10-0400 BMI (Body Mass Index) 26.61 kg/m2 Rox Huerta [facility] Internal Medicine Work Phone: 10-07-2012 10:10-0400 Body Temperature 97.8 [degF] Rox Huerta [facility] Medicine Work Phone: Comment on above: Method: Oral 10-07-2012 10:10-0400 Body weight 73.65 kg Rox Huerta [facility] Medicine Work Phone: 10-07-2012 10:10-0400 BP Diastolic 62 mm[Hg] Rox Huerta [facility] Medicine Work Phone: Comment on above: Patient Position: Sitting; Cuff Location : Left Arm; Cuff Size: Large 10-07-2012 10:10-0400 BP Systolic 118 mm[Hg] Rox Huerta [facility] Medicine Work Phone: Comment on above: Patient Position: Sitting; Cuff Location : Left Arm; Cuff Size: Large 10-07-2012 10:10-0400 BSA (Body Surface Area) 1.82 m2 Rox Huerta [facility] Internal Medicine Work Phone: 10-07-2012 10:100400 Height 166.37 cm Rox Huerta [facility] Internal Medicine Work Phone: 10-07-2012 10:10-0400 Pulse (Heart Rate) 62 /min Rox Huerta [facility] Internal Medicine Work Phone: Comment on above: Pattern: Regular 10-07-2012 10:100400 Pulse Oximetry 96 % Rox Huerta [facility] Internal Medicine Work Phone: Comment on above: Room air 10-07-2012 10:100400 Respiratory Rate 20 /min Rox Huerta [facility] Internal Medicine Work Phone: Comment on above: Pattern: Unlabored 10-07-2012 10:10-0400 Weight 73.65 kg Rox Huerta [facility] Internal Medicine Work Phone: 07-05-2012 08:26-0400 BMI (Body Mass Index) 26.57 kg/m2 Rox Huerta [facility] Internal Medicine Work Phone: 07-05-2012 08:26-0400 Body Temperature 97.5 [degF] Rox Huerta [facility] Internal Medicine Work Phone: 07-05-2012 08:26-0400 Body weight 73.54 kg Rox Huerta [facility] Internal Medicine Work Phone: 07-05-2012 08:26-0400 BP Diastolic 78 mm[Hg] Rox Huerta [facility] Internal Medicine Work Phone: Comment on above: Patient Position: Sitting; Cuff Location : Left Arm; Cuff Size: Standard 07-05-2012 08:26-0400 BP Systolic 115 mm[Hg] Rox Huerta [facility] Internal Medicine Work Phone: Comment on above: Patient Position: Sitting; Cuff Location : Left Arm; Cuff Size: Standard 07-05-2012 08:26-0400 BSA (Body Surface Area) 1.82 m2 Rox Huerta [facility] Internal Medicine Work Phone: 07-05-2012 08:26-0400 Height 166.37 cm Rox Huerta [facility] Internal Medicine Work Phone: 07-05-2012 08:26-0400 Pulse (Heart Rate) 68 /min Rox Huerta [facility] Internal Medicine Work Phone: Comment on above: Pattern: Regular 07-05-2012 08:26-0400 Respiratory Rate 16 /min Rox Huerta [facility] Internal Medicine Work Phone: Comment on above: Pattern: Unlabored 07-05-2012 08:26-0400 Weight 73.54 kg oRx Huerta [facility] Internal Medicine Work Phone: 06-11-2012 11:46-0400 BMI (Body Mass Index) 26.73 kg/m2 Rox Huerta [facility] Internal Medicine Work Phone: 06-11-2012 11:46-0400 Body Temperature 97.7 [degF] Rox Huerta [facility] Internal Medicine Work Phone: Comment on above: Method: Oral 06-11-2012 11:46-0400 Body weight 73.99 kg Rox Huerta [facility] Internal Medicine Work Phone: 06-11-2012 11:46-0400 BP Diastolic 62 mm[Hg] Rox Huerta [facility] Internal Medicine Work Phone: Comment on above: Patient Position: Sitting; Cuff Location : Left Arm; Cuff Size: Large 06-11-2012 11:46-0400 BP Systolic 120 mm[Hg] Rox Huerta [facility] Internal Medicine Work Phone: Comment on above: Patient Position: Sitting; Cuff Location : Left Arm; Cuff Size: Large 06-11-2012 11:46-0400 BSA (Body Surface Area) 1.82 m2 Rox Huerta [facility] Internal Medicine Work Phone: 06-11-2012 11:46-0400 Height 166.37 cm Rox Huerta [facility] Internal Medicine Work Phone: 06-11-2012 11:46-0400 Pulse (Heart Rate) 80 /min Rox Huerta [facility] Internal Medicine Work Phone: Comment on above: Pattern: Regular 06-11-2012 11:46-0400 Respiratory Rate 18 /min Rox Huerta [facility] Internal Medicine Work Phone: Comment on above: Pattern: Unlabored 06-11-2012 11:46-0400 Weight 73.99 kg Rox Huerta [facility] Internal Medicine Work Phone: 06-07-2012 09:31-0400 BMI (Body Mass Index) 26.73 kg/m2 Rox Huerta [facility] Internal Medicine Work Phone: 06-07-2012 09:31-0400 Body weight 73.99 kg Rox Huerta [facility] Internal Medicine Work Phone: 06-07-2012 09:31-0400 BP Diastolic 78 mm[Hg] Rox Huerta [facility] Internal Medicine Work Phone: Comment on above: Patient Position: Sitting; Cuff Location : Left Arm; Cuff Size: Large 06-07-2012 09:31-0400 BP Systolic 122 mm[Hg] Rox Huerta [facility] Internal Medicine Work Phone: Comment on above: Patient Position: Sitting; Cuff Location : Left Arm; Cuff Size: Large 06-07-2012 09:31-0400 BSA (Body Surface Area) 1.82 m2 Rox Huetra [facility] Internal Medicine Work Phone: 06-07-2012 09:31-0400 Height 166.37 cm Rox Huerta [facility] Internal Medicine Work Phone: 06-07-2012 09:31-0400 Pulse (Heart Rate) 72 /min Rox Huerta [facility] Internal Medicine Work Phone: Comment on above: Pattern: Regular 06-07-2012 09:31-0400 Respiratory Rate 20 /min Rox Huerta [facility] Internal Medicine Work Phone: Comment on above: Pattern: Unlabored 06-07-2012 09:31-0400 Weight 73.99 kg Rox Huerta [facility] Medicine Work Phone: 06-03-2012 09:290400 BMI (Body Mass Index) 26.73 kg/m2 Rox Huerta [facility] Internal Medicine Work Phone: Comment on above: hearing wnlvision with correction ou=20/ 30 od=20/30 os=20/40 06-03-2012 09:29-0400 Body Temperature 97 [degF] [facility]: Comment on above: Method: Oral hearing wnlvision wi th correction ou=20/30 od=20/30 os=20/40 06-03-2012 09:290400 Body weight 73.99 [facility] Work [facility]: Comment on above: hearing wnlvision with correction ou=20/ 30 od=20/30 os=20/40 06-03-2012 09:29-0400 BP Diastolic 80 mm[Hg] Rox [facility] Internal Medicine Work Phone: Comment on above: Patient Position: Sitting; Cuff Location : Left Arm; Cuff Size: Large hearing wnlvision wi th correction ou=20/30 od=20/30 os=20/40 06-03-2012 09:29-0400 BP Systolic 138 mm[Hg] [facility] Internal Medicine Work Phone: Comment on above: Patient Position: Sitting; Cuff Location : Left Arm; Cuff Size: Large hearing wnlvision wi th correction ou=20/30 od=20/30 os=20/40 06-03-2012 09:29-0400 BSA (Body Surface Area) 1.82 m2 [facility] Internal Medicine Work Phone: Comment on above: hearing wnlvision with correction ou=20/ 30 od=20/30 os=20/40 06-03-2012 09:290400 Height 166.37 cm [facility] Work [facility]: Comment on above: hearing wnlvision with correction ou=20/ 30 od=20/30 os=20/40 06-03-2012 09:29-0400 Pulse (Heart Rate) 80 /min [facility] Work Phone: Comment on above: Pattern: Regular hearing wnlvision wi th correction ou=20/30 od=20/30 os=20/40 06-03-2012 09:29-0400 Respiratory Rate 20 /min [facility] Work Phone: Comment on above: Pattern: Unlabored hearing wnlvision wi th correction ou=20/30 od=20/30 os=20/40 06-03-2012 09:290400 [facility] 73.99 [facility] Work [facility]: Comment on above: hearing wnlvision with correction ou=20/ 30 od=20/30 os=20/40 03-27-2012 13:51-0500 BMI (Body Mass Index) 26.12 kg/m2 Rox Huerta [facility] Internal Medicine Work Phone: 03-27-2012 13:51-0500 Body Temperature 97.8 [degF] Rox [facility] Internal Medicine Work Phone: Comment on above: Method: Oral 03-27-2012 13:51-0500 Body weight 72.29 kg Rox [facility] Internal Medicine Work Phone: 03-27-2012 13:51-0500 BP Diastolic 68 mm[Hg] [facility] Internal Medicine Work Phone: Comment on above: Patient Position: Sitting; Cuff Location : Left Arm; Cuff Size: Large 03-27-2012 13:51-0500 BP Systolic 118 mm[Hg] Rox [facility] Internal Medicine Work Phone: Comment on above: Patient Position: Sitting; Cuff Location : Left Arm; Cuff Size: Large 03-27-2012 13:51-0500 BSA (Body Surface Area) 1.81 m2 Rox Huerta [facility] Medicine Work Phone: 03-27-2012 13:51-0500 Height 166.37 cm Rox Huerta [facility] Medicine Work Phone: 03-27-2012 13:51-0500 Pulse (Heart Rate) 64 /min Rox Huerta [facility] Medicine Work Phone: Comment on above: Pattern: Regular 03-27-2012 13:51-0500 Respiratory Rate 18 /min Rox Huerta [facility] Medicine Work Phone: Comment on above: Pattern: Unlabored 03-27-2012 13:51-0500 Weight 72.29 kg Rox Huerta [facility] Internal Medicine Work Phone: Encounters Encounter Date Encounter Type Care Provider Facility Start: 11-14-2024 ambulatory Jian Viveros [facility] Start: 11-07-2024 End: 11-07-[address] Jian Viveros MD Work Phone: -[facility] Start: 11-07-2024 End: 11-07-[address] Pako Morocho MD -[facility] Work Phone: Start: 11-06-2024 End: 11-06-[address] Jian Viveros MD Work Phone: -[facility] Start: 11-06-2024 End: 11-06-[address] [facility] Work Phone: Start: 11-06-2024 End: 11-06-2024 ambulatory Jian Viveros Facility:[facility] Start: 10-13-2024 End: 10-13-[address] Jian Viveros MD Work Phone: -Ultrasound [facility] Start: 10-13-2024 End: 10-13-[address] Jian Viveros MD -Ultrasound [facility] Work Phone: Start: 10-13-2024 End: 10-13-2024 ambulatory Jian Viveros Facility:[facility] Start: 09-23-2024 End: 09-23-[address] Jian Viveros MD Work Phone: -Laboratory [facility] Start: 09-23-2024 End: 09-23-[address] Jian Viveros MD -Laboratory [facility] Start: 09-23-2024 End: 09-23-2024 ambulatory Jian Viveros Facility:[facility] Start: 08-14-2024 End: 08-14-[address] Jian Viveros MD Work Phone: [facility] Work Phone: Start: 08-14-2024 End: 08-14-2024 Patient encounter procedure Nikki Roni -[facility] Work Phone: Start: 08-08-2024 End: 08-08-2024 Admission to same day surgery center Dr. Pako Morocho MD -[employer]/Special Procedures Work Phone: Start: 08-08-2024 End: 08-08-2024 ambulatory Jian Viveros Facility:[facility] [place] Start: 07-29-2024 End: 07-29-[address] Jian Viveros MD Work Phone: [facility] Work Phone: Start: 07-29-2024 End: 07-29-[address] Jin Barnes MD -[facility] Work Phone: Start: 05-29-2024 End: 05-29-[address] Jian Viveros MD Work Phone: [facility] Work Phone: Start: 05-29-2024 End: 05-29-[address] [facility] Start: 05-29-2024 End: 05-29-2024 ambulatory Jian Viveros Facility:[facility] Start: 05-19-2024 End: 05-19-2024 ambulatory Pako Morocho Facility:[facility] Start: 05-19-2024 End: 05-19-[address] Pako Morocho MD -[facility] Work Phone: Start: 04-17-2024 ambulatory Jian Viveros Facilit y:[facility] Start: 03-04-2024 End: 03-04-[address] [facility] Start: 03-04-2024 End: 03-04-2024 ambulatory Jian Viveros Facility:[facility] Start: 02-11-2024 End: 02-11-2024 Patient encounter procedure Dori Wong PA -[facility] Work Phone: Start: 02-11-2024 End: 02-11-2024 ambulatory Jian Viveros Facility:[facility] Start: 01-31-2024 End: 01-31-2024 ambulatory Jian Viveros Facility:[facility] Start: 07-13-2023 End: 07-13-[address] Jian Viveros Work Phone: [facility] Work Phone: Start: 07-13-2023 End: 07-13-[address] Jian Viveros Work Phone: [facility]-Cardiovascular Services Work Phone: Start: 07-05-2023 End: 07-05-[address] Jian Viveros Work Phone: [facility] Work Phone: Start: 07-05-2023 End: 07-05-[address] Jian Viveros Work Phone: [facility] Start: 06-19-2023 End: 06-19-[address] Jian Viveros Work Phone: [facility] Work Phone: Start: 06-01-2023 End: 06-01-[address] Jian Viveros Work Phone: [facility] Work Phone: Start: 06-01-2023 End: 06-01-[address] Jian Viveros Work Phone: [facility] Work Phone: Start: 05-31-2023 End: 05-31-[address] Jian Viveros Work Phone: [facility] Work Phone: Start: 04-24-2023 End: 04-24-2023 ambulatory [facility] Work Phone: Start: 04-24-2023 End: 04-24-2023 Patient encounter procedure [facility] Start: 01-12-2023 End: 01-12-2023 Patient encounter procedure [facility] Start: 12-22-2022 Non-patient / Non-visit Dr. Jian [facility] Start: 12-22-2022 End: 12-22-[address] Jian Viveros Work Phone: [facility] Work Phone: Start: 12-22-2022 End: 12-22-[address] [facility]Jan [facility] Start: 11-23-2022 End: 11-23-[address] Jian Viveros Work Phone: [facility] Work Phone: Start: 09-28-2022 End: 09-28-[address] Jian Viveros Work Phone: [facility] Work Phone: Start: 09-28-2022 End: 09-28-[address] Jian Viveros Work Phone: [facility] Start: 08-08-2022 End: 08-08-[address] Jian Viveros Work Phone: [facility] Work Phone: Start: 07-25-2022 Non-patient / Non-visit Dr. Jian Viveros Work Phone: [facility] Start: 07-24-2022 Non-patient / Non-visit Dr. Jian Viveros Work Phone: [facility] Start: 07-24-2022 End: 07-25-2022 Evaluation and management of inpatient Dr. Jian Viveros Work Phone: [facility]-Intensive Care Unit Work Phone: Start: 07-21-2022 Non-patient / Non-visit Dr. Jian Viveros Work Phone: [facility] Start: 07-21-2022 End: 07-21-[address] [facility] Start: 07-17-2022 End: 07-17-[address] Jian Viveros Work Phone: [facility] Work Phone: Start: 07-10-2022 End: 07-10-[address] Jian Viveros Work Phone: [facility] Work Phone: Start: 07-10-2022 End: 07-10-[address] Jian Viveros Work Phone: [facility] Start: 06-13-2022 End: 06-13-[address] Jian Viveros Work Phone: [facility] Work Phone: Start: 06-13-2022 End: 06-13-[address] Jian Viveros Work Phone: [facility] Start: 05-30-2022 End: 05-30-[address] Jian Viveros Work Phone: [facility] Work Phone: Start: 05-30-2022 End: 05-30-[address] Jian Viveros Work Phone: [facility] V[facility] Start: 05-18-2022 End: 05-18-[address] Jian Viveros Work Phone: [facility] Start: 05-05-2022 End: 05-05-[address] Jian Viveros Work Phone: [facility] Start: 04-20-2022 Non-patient / Non-visit Dr. Jian Viveros Work Phone: [facility] Start: 04-20-2022 End: 04-20-[address] Jian Viveros Work Phone: [facility] Work Phone: Start: 04-20-2022 End: 04-20-[address] Jian Viveros Work Phone: [facility]-Cardiovascular Services Start: 01-05-2022 End: 01-05-[address] Jian Viveros Work Phone: [facility] Start: 12-06-2021 Non-patient / Non-visit Dr. Jian Viveros Work Phone: [facility] Inpatient Physicians Start: 12-05-2021 Non-patient / Non-visit Dr. Jian Viveros Work Phone: [facility] Phys[facility] Start: 12-04-2021 Non-patient / Non-visit Dr. Jian Viveros Work Phone: [facility]patient Phys[facility] Start: 12-04-2021 End: 12-06-2021 Evaluation and management of inpatient Dr. Jian Viveros Work Phone: [facility]-Medical Surgical 3 Start: 11-27-2021 End: 11-27-2021 Emergency department patient visit Dr. Jian Viveros Work Phone: [facility]-Emergency Department Start: 11-15-2021 End: 11-15-[address] [facility] Start: 10-19-2021 Non-patient / Non-visit Dr. Jian Viveros Work Phone: [facility] Start: 10-19-2021 End: 10-19-[address] Jian Viveros Work Phone: [facility] [place], [facility] Start: 10-06-2021 End: 10-06-2021 [facility] encounter [facility] Start: 09-02-2021 End: 09-02-[address] Jian Savage Work Phone: [facility] Start: 05-24-2021 End: 05-24-[address] [facility] Start: 11-08-2018 End: 11-08-2018 Office outpatient visit 15 minutes Rox Huerta [facility] Internal Medicine Start: 10-25-2018 End: 10-25-2018 Office outpatient visit 25 minutes Rox Mohan Internal Medicine Start: 10-25-2018 Review Rox Huerta [facility] Medicine Start: 05-29-2018 Patient encounter procedure Rox Mohan Internal Med Start: 05-29-2018 End: 05-29-2018 Office outpatient visit 25 minutes Rox Mohan Internal Medicine Start: 05-29-2018 Review Rox Huerta [facility] Start: 03-01-2018 End: 03-01-2018 Office outpatient visit 15 minutes Rxo Mohan Internal Medicine Start: 01-21-2018 End: 01-21-2018 Office outpatient visit 25 minutes Rox Mohan Internal Medicine Start: 12-31-2017 End: 12-31-2017 Office outpatient visit 40 minutes Rox Mohan Internal Medicine Start: 10-08-2017 End: 10-08-2017 Phone Encounter Rox Mohan [facility] Start: 09-27-2017 End: 09-28-2017 Office outpatient visit 25 minutes Rox Mohan Internal Medicine Start: 08-23-2017 End: 08-23-2017 Office outpatient visit 15 minutes Rox Mohan Internal Medicine Start: 08-02-2017 End: 08-02-2017 Periodic preventive med est patient 65yrs& older Rox Mohan Internal Medicine Start: 07-04-2017 End: 07-04-2017 Office outpatient visit 15 minutes Rox Mohan Internal Medicine Start: 06-25-2017 End: 06-25-2017 Office outpatient visit 25 minutes Rox Mohan Internal [facility] Start: 05-22-2017 End: 05-22-2017 Annotation/Addendum Rox Mohan [facility] Start: 05-21-2017 End: 05-21-2017 Office outpatient visit 15 minutes Rox Mohan Internal Medicine Start: 04-12-2017 End: 04-12-2017 Office outpatient visit 15 minutes Rox Mohan [facility] Start: 04-05-2017 End: 04-05-2017 Office outpatient visit 15 minutes Rox Mohan [facility] Start: 03-22-2017 End: 03-22-2017 Office outpatient visit 15 minutes Rox Mohan [facility] Medicine Start: 02-05-2017 End: 02-05-2017 Office outpatient visit 25 minutes Rox Mohan Internal Medicine Start: 11-17-2016 End: 11-17-2016 Office outpatient visit 25 minutes Rox Mohan [facility] Medicine Start: 10-16-2016 End: 10-16-2016 Phone Encounter Rox Mohan [facility] Start: 10-10-2016 End: 10-10-2016 Phone Encounter Rox Mohan [facility] Start: 10-05-2016 End: 10-05-2016 Office outpatient visit 40 minutes Rox Mohan Internal Medicine Start: 08-30-2016 End: 08-30-2016 Office outpatient visit 10 minutes Rox Mohan Internal Medicine Start: 08-28-2016 End: 08-28-2016 Office outpatient visit 25 minutes Rox Mohan Internal Medicine Start: 06-29-2016 End: 06-29-2016 Office outpatient visit 15 minutes Rox Mohan Internal Medicine Start: 06-15-2016 End: 06-15-2016 Office outpatient visit 25 minutes Rox Mohan [facility] Start: 05-25-2016 End: 05-25-2016 Office outpatient visit 25 minutes Rox Mohan [facility] Start: 03-06-2016 End: 03-06-2016 Office outpatient visit 25 minutes Rox Mohan [facility] Start: 02-08-2016 End: 02-08-2016 Periodic preventive med est patient 65yrs& older Rox Mohan Internal Medicine Start: 01-20-2016 End: 01-20-2016 Office outpatient visit 25 minutes Rox Mohan [facility] Medicine Start: 08-11-2015 End: 08-11-2015 Office outpatient visit 15 minutes Rox Mohan [facility] Start: 02-17-2015 End: 02-17-2015 Office outpatient visit 15 minutes Rox Mohan [facility] Start: 01-07-2015 End: 01-07-2015 Office outpatient visit 15 minutes Rox Mohan [facility] Start: 12-10-2014 End: 12-10-2014 Office outpatient visit 25 minutes Rox Mohan [facility] Start: 12-02-2014 End: 12-02-2014 Office outpatient visit 10 minutes Rox Mohan [facility] Start: 11-26-2014 End: 11-26-2014 Office outpatient visit 25 minutes Rox Mohan [facility] Medicine Start: 11-12-2014 End: 11-12-2014 Office outpatient visit 25 minutes Roxalyson Cohenon [facility] Medicine Start: 03-18-2014 End: 03-18-2014 Office outpatient visit 25 minutes Roxalyson Huerta [facility] Medicine Start: 03-16-2014 End: 03-16-2014 Office outpatient visit 25 minutes Rox Huerta [facility] Start: 01-21-2014 End: 01-21-2014 Office outpatient visit 5 minutes Rox Bradley [facility] Medicine Start: 12-18-2013 End: 12-26-2013 Office outpatient visit 5 minutes Rox Bradley [facility] Start: 07-29-2013 End: 07-29-2013 Office outpatient visit 25 minutes Roxalyson Huerta [facility] Medicine Start: 06-11-2013 End: 06-11-2013 Patient encounter Rox Huerta [facility] Start: 05-21-2013 End: 05-21-2013 Patient encounter Rox Huerta [facility] Start: 04-30-2013 End: 04-30-2013 Patient encounter Rox Huerta [facility] Start: 12-27-2012 End: 12-27-2012 Patient encounter Rox Huerta [facility] Start: 12-16-2012 End: 12-16-2012 Phone Encounter Rox Huerta [facility] Start: 12-11-2012 End: 12-11-2012 Patient encounter Rox Huerta [facility] Start: 10-07-2012 End: 10-07-2012 Patient encounter Rox Huerta [facility] Start: 07-05-2012 End: 07-05-2012 Patient encounter Roxalyson Huerta [facility] Start: 06-11-2012 End: 06-11-2012 Patient encounter Rox Huerta [facility] Start: 06-07-2012 End: 06-07-2012 Patient encounter Rox Huerta [facility] Start: 06-03-2012 End: 06-03-2012 Patient encounter Rox Huerta [facility] Start: 03-27-2012 End: 03-27-2012 Phone Encounter Rox Huerta [facility] Start: 03-27-2012 End: 03-27-2012 Patient encounter Rox Huerta [facility] Procedures Date Procedure Procedure Detail Performing Clinician Start: 11-06-[address] Jian Viveros MD Work Phone: Start: 11-06-2024 Urnls dip stick/tablet reagent auto microscopy Dr. Jian Viveros MD Work Phone: Start: 11-06-2024 Vitamin D, 25-hydroxy measurement Dr. Jian Viveros MD Work Phone: Comment on above: Vitamin D StatusDeficiency: <20 ng/mL (5 0nmol/L)Insufficiency: 20-30 ng/mL (50-75 nmol/L)Sufficiency: 30-100 ng/mL (75-250 nmol/L)Toxicity: >100 ng/mL (>250 nmol/L) Start: 11-06-2024 Plain X-ray abdomen Dr. Jian Viveros MD Work Phone: Start: 10-13-2024 Ultrasonography of thyroid and parathyroid Dr. Jian Viveros MD Work Phone: Start: 09-23-[address] Jian Viveros MD Work Phone: Comment on above: Performed at: [place] [id number] Director: Irvin Goins PhD, Phone: [phone] Start: 09-23-2024 Total iron binding capacity measurement Dr. Jian Viveros MD Work Phone: Start: 09-23-[address] Jian Viveros MD Work Phone: Comment on above: Deficiency: <3.4 Marginal: 3.4 - 5.1 Alyssa quate: >5.1 Start: 07-29-2024 Urnls dip stick/tablet reagent auto microscopy Dr. Jian Viveros MD Work Phone: Start: 07-29-2024 X-ray of chest, PA and lateral views Dr. Jian Viveros MD Work Phone: Start: 05-29-[address] Jian Viveros MD Work Phone: Start: 05-29-[address] Jian Viveros MD Work Phone: Comment on above: Deficiency: <3.4 Marginal: 3.4 - 5.1 Alyssa quate: >5.1 Start: 05-29-2024 Vitamin D, 25-hydroxy measurement Dr. Jian Viveros MD Work Phone: Comment on above: Vitamin D StatusDeficiency: <20 ng/mL (5 0nmol/L)Insufficiency: 20-30 ng/mL (50-75 nmol/L)Sufficiency: 30-100 ng/mL (75-250 nmol/L)Toxicity: >100 ng/mL (>250 nmol/L) Start: 03-04-2024 X-ray of cervical spine Dr. Jian quintanilla MD Work Phone: Start: 02-11-2024 Evaluation of diagnostic study results Dr. Jian Viveros MD Work Phone: Start: 06-01-2023 X-ray of lumbosacral spine Dr. Jian Viveros Work Phone: Start: 06-01-2023 Radiography of thoracic spine Dr. Jian Viveros Work Phone: Start: 07-24-[address] Jian Viveros Work Phone: Start: 07-21-2022 Cardiovascular stress test using pharmacologic stress agent Dr. Jian Viveros Work Phone: Start: 07-10-2022 CT angiography of head and neck Dr. Jian Viveros Work Phone: Start: 12-04-2021 Plain chest X-ray Dr. Jian Viveros Work Phone: Start: 11-27-2021 CT of head without contrast Dr. Jian Viveros Work Phone: Start: 10-19-2021 US scan of thyroid Dr. 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 [place] [address] OFFICE VISIT Date of Service: 01/27/19 MR#: [id number] Acct: [id number] Name: TRINIDAD PARKER Rep #: [id number] : 1935 Provider: SCOTTIE Gabriel Age/Sex: 83/F Location: [facility] Status: Signed Intake Vital Signs01/27/19 Body Mass Index (BMI) 24.1 01/27/19 Height 5 ft 5 in 01/27/19 Weight: 141 lb 4 oz 01/27/19 Body Mass Index (BMI) 23.5 01/27/19 Blood Pressure 118/78 Intake Visit Reasons: Labial cyst, Dr. Savage ref, ok per EM Oil Boiler Required: No Is patient in pain?: No Allergies metformin Allergy (Verified 01/27/19 13:41) Unknown Penicillins [PCN] Allergy (Verified 01/27/19 13:41) Unknown atorvastatin Adverse Reaction (Severe, Verified 01/27/19 13:41) elevated liver enzymes Medications Cholecalciferol (VIT D3) [Vitamin D3] 1,000 unit PO DAILY 04/16/15 [History Confirmed 01/27/19] Levothyroxine Sodium [Unithroid] 50 mcg PO DAILY 04/16/15 [History Confirmed 01/27/19] Ipratropium/Albuterol Respimat [Combivent Respimat Inhal [place]] 1 puff INHALATION BID 12/01/16 [History Confirmed 01/27/19] Ipratropium/Albuterol Sulfate [Duoneb] 3 ml INHALATION BID PRN 05/30/17 [History Confirmed 01/27/19] lisinopril 10 mg tablet 10 mg PO DAILY #90 tab 06/08/17 [Rx Confirmed 01/27/19] atorvastatin 40 mg tablet 40 mg PO .every other day #90 tab 08/28/17 [Rx Confirmed 01/27/19] aspirin 81 mg tablet,delayed release 81 mg PO QDAY 09/05/17 [History Confirmed 01/27/19] clopidogrel 75 mg tablet 75 mg PO DAILY #90 tab 07/01/18 [Rx Confirmed 01/27/19] lansoprazole 30 mg capsule,delayed release PO 90 Days #90 cap 07/23/18 [History Confirmed 01/27/19] nitroglycerin 0.4 mg sublingual tablet 0.4 mg SUBLINGUAL Q5-15M PRN #25 tab 08/03/18 [Rx Confirmed 01/27/19] metoprolol tartrate 25 mg tablet 12.5 mg PO BID #90 tab 08/08/18 [Rx Confirmed 01/27/19] hydrochlorothiazide 25 mg tablet 25 mg PO DAILY 01/23/19 [History Confirmed 01/27/19] clobetasol 0.05 % topical cream 1 applic TOPICAL .COMPLEX #15 g 01/27/19 [Rx Confirmed 01/27/19] Is last menstrual period known: No Post menopausal: Yes Patient : No : No PFSH Medical History Essential (primary) hypertension (Chronic) Hyperlipidemia (Chronic) Complete heart block (Chronic) Sick sinus syndrome (Chronic) Atherosclerotic heart disease of [place] coronary artery without angina pectoris (Chronic) Nonrheumatic mitral (valve) prolapse (Chronic) NSTEMI (non-ST elevated myocardial infarction) (Resolved 05/30/17) Anxiety (Chronic) Bone spur of foot (Chronic) COPD (chronic obstructive pulmonary disease) (Chronic) Diverticulosis (Chronic) GERD (gastroesophageal reflux disease) (Chronic) Ganglion cyst of left foot (Chronic) Hypothyroidism (Chronic) Osteoarthritis (Chronic) Dizziness and giddiness (Inactive) Fatigue (Inactive) Intermittent chest pain (Inactive) Surgical History Presence of permanent cardiac pacemaker (Chronic 04/19/15) History of coronary artery stent placement (Resolved 05/31/17) H/O bladder repair surgery (Resolved) H/O excision of ganglion cyst (Resolved) History of appendectomy (Resolved) History of back surgery (Resolved) History of carpal tunnel release (Resolved) History of hysterectomy (Resolved) History of left heart catheterization (Resolved 09/10/17) Family History Father Cancer lung cancer Heart disease Mother CVA (cerebral vascular accident) Hypertension Sister Hypertension Cancer lung cancer Son Diabetes Hypertension Myocardial infarction, Onset Age: 48 Social History (Updated 01/27/19 @ 14:09 by Niecy Gabriel NP-C) Smoking Status: Former smoker alcohol intake: never substance use type: does not use caffeine: Yes Type: coffee Number of servings: 3 what type of physical activity do you participate in: none seatbelt use: always do you feel safe at home: Yes HPI Labial cyst, Dr. Savage ref, ok per EM: Details: TRINIDAD PARKER is a 83 year old who presents for new patient evaluation of vulvar lesion and itching. Referral per Dr. Jian Savage. States that she is on cephalexin for lesion per PCP. She is not sexually active Pregancy History 4 Elective abortions Hx Para 4 Spontaneous abortions ROS Const Constitutional: Reports system reviewed and no additional complaints, except as docu Eyes Eyes: Reports system reviewed and no additional complaints, except as docu GI GI: Denies abdominal pain or change in bowel habits : Reports as per HPI Exam Const General: cooperative, no acute distress Nutritional Appearance: well nourished Orientation: oriented x3 Other: Healing vulvar abscess inner left labia <1cm in size. Silver whitening noted around clitoral pardo extending down bilateral labia and around anus. Cracking noted near anus Regression of bilateral labia minora Assessment AND Plan Problems 1. Lichen sclerosus L90.0 2. Inclusion cyst of vulva N90.7 Plan Cyst on inner labia is resolving Rx clobetesol RTO 4 weeks Medications New: clobetasol 0.05% 1 applic TOPICAL apply thin layer as directed bid X 2 weeks then daily X 2 weeks; apply thin layer; massage in to cover area 15 grams 2RF Coding Level of Care Code Off vis,new,level 3 Diagnoses Lichen sclerosus L90.0 Inclusion cyst of vulva N90.7 01/27/19 1409 <Electronically signed by Niecy HUMMEL> Date Niecy HUMMEL Cosigner Signature: Date (if applicable) CC: Rox Huerta Start: 01-23-2019 End: 01-23-2019 Cardiology Visit Report Comments: See Note; NOTES: [facility] [address] [place] [address] OFFICE VISIT Date of Service: 01/23/19 MR#: [id number] Acct: [id number] Name: TRINIDAD PARKER Rep #: [id number] : 1935 Provider: SHAHEED King Age/Sex: 83/F Location: [facility] Status: Signed HPI HPI History of Present Illness Details: TRINIDAD PARKER, is a 83 F who presents to the office today for a cardiovascular outpatient follow-up. She has a history of coronary artery disease status post drug-eluting stent to LCx in May 2017, status post permanent pacemaker placement, hypertension, and hyperlipidemia. She denies arm, jaw, or neck discomfort. Her exercise tolerance is stable. She denies symptoms of near syncope, or syncopal episodes. She denies edema or claudication issues. She denies orthopnea, PND, blood in urine, blood in stool, myalgia. She states taking a nap in the afternoon d/t fatigue. She states multiple stressors that she relates to her Atrial-flutter episodes. She states associated fatigue. Both were short lasting. She has spaced her blood pressure medication to help with her dizziness. She states lightheadedness and dizziness with activity from being over tired. She states with her stress she notes short lasting chest discomfort. This resolves with rest. She denies chest pain with ambulation/activity. She continues with intermittent shortness of breath that is most noted during times of stress. Intake Vital Signs01/23/19 Height 5 ft 5 in 01/23/19 Weight: 147 lb 01/23/19 Body Mass Index (BMI) 24.4 01/23/19 Blood Pressure 146/76 H 01/23/19 Blood Pressure Location Lt brachial Intake Visit Reasons: 6 M FU; Pacer 1pm Oil Boiler Required: No Accompanied by: None Is patient in pain?: No Allergies metformin Allergy (Verified 01/23/19 13:14) Unknown Penicillins [PCN] Allergy (Verified 01/23/19 13:14) Unknown atorvastatin Adverse Reaction (Severe, Verified 01/23/19 13:14) elevated liver enzymes Medications Cholecalciferol (VIT D3) [Vitamin D3] 1,000 unit PO DAILY 04/16/15 [History Confirmed 01/23/19] Levothyroxine Sodium [Unithroid] 50 mcg PO DAILY 04/16/15 [History Confirmed 01/23/19] Ipratropium/Albuterol Respimat [Combivent Respimat Inhal [place]] 1 puff INHALATION BID 12/01/16 [History Confirmed 01/23/19] Ipratropium/Albuterol Sulfate [Duoneb] 3 ml INHALATION BID PRN 05/30/17 [History Confirmed 01/23/19] lisinopril 10 mg tablet 10 mg PO DAILY #90 tab 06/08/17 [Rx Confirmed 01/23/19] atorvastatin 40 mg tablet 40 mg PO .every other day #90 tab 08/28/17 [Rx Confirmed 01/23/19] aspirin 81 mg tablet,delayed release 81 mg PO QDAY 09/05/17 [History Confirmed 01/23/19] clopidogrel 75 mg tablet 75 mg PO DAILY #90 tab 07/01/18 [Rx Confirmed 01/23/19] lansoprazole 30 mg capsule,delayed release PO 90 Days #90 cap 07/23/18 [History Confirmed 01/23/19] nitroglycerin 0.4 mg sublingual tablet 0.4 mg SUBLINGUAL Q5-15M PRN #25 tab 08/03/18 [Rx Confirmed 01/23/19] metoprolol tartrate 25 mg tablet 12.5 mg PO BID #90 tab 08/08/18 [Rx Confirmed 01/23/19] hydrochlorothiazide 25 mg tablet 25 mg PO DAILY 01/23/19 [History Confirmed 01/23/19] [facility] Medical History (Updated 01/23/19 @ 15:32 by NADAI CordovaC) Essential (primary) hypertension (Chronic) Hyperlipidemia (Chronic) Complete heart block (Chronic) Sick sinus syndrome (Chronic) Atherosclerotic heart disease of [place] coronary artery without angina pectoris (Chronic) Nonrheumatic mitral (valve) prolapse (Chronic) NSTEMI (non-ST elevated myocardial infarction) (Resolved 05/30/17) Anxiety (Chronic) Bone spur of foot (Chronic) COPD (chronic obstructive pulmonary disease) (Chronic) Diverticulosis (Chronic) GERD (gastroesophageal reflux disease) (Chronic) Ganglion cyst of left foot (Chronic) Hypothyroidism (Chronic) Osteoarthritis (Chronic) Dizziness and giddiness (Inactive) Fatigue (Inactive) Intermittent chest pain (Inactive) Surgical History (Updated 07/12/18 @ 10:04 by Trinidad Contreras) Presence of permanent cardiac pacemaker (Chronic 04/19/15) History of coronary artery stent placement (Resolved 05/31/17) H/O bladder repair surgery (Resolved) H/O excision of ganglion cyst (Resolved) History of appendectomy (Resolved) History of back surgery (Resolved) History of carpal tunnel release (Resolved) History of hysterectomy (Resolved) History of left heart catheterization (Resolved 09/10/17) Family History (Updated 06/08/17 @ 13:43 by Harvey Ortega) Father Cancer lung cancer Heart disease Mother CVA (cerebral vascular accident) Hypertension Sister Hypertension Cancer lung cancer Son Diabetes Hypertension Myocardial infarction, Onset Age: 48 Social History (Updated 01/23/19 @ 15:33 by Jian King, TEAMCENTER SOLUTION ARCHITECT-C) Smoking Status: Former smoker alcohol intake: never substance use type: does not use caffeine: Yes Type: coffee Number of servings: 3 what type of physical activity do you participate in: none seatbelt use: always do you feel safe at home: Yes ROS Const Const: Positive for fatigue; negative for weakness, body ache, fever(s) or chills ENT ENT: Positive for dizziness Cardio Chest Pain: Yes Palpitations: No Edema: None Muscle aches with walking: None Resp Respiratory: Positive for SOB with activity; negative for SOB at rest, SOB orthopnea\SOB lying down or paroxysmal nocturnal dyspnea GI GI: Negative nausea, vomiting blood/hematemesis, bright, red blood in stools or black,tarry stools : Negative for hematuria or frequent nighttime urination/ nocturia Musc Musc: Negative for muscle aches/ myalgia Skin Skin: Negative non-healing lesions or rash Neuro Neuro: Positive for dizziness and lightheadedness; negative for near syncope, syncope, orthostatic symptoms or weakness Endo Endo: Positive for fatigue Allergy Allergy/Immunology: Negative for rash Cardiology Exam Const Appearance: cooperative, healthy appearing, comfortable and no acute distress Nutritional Appearance: average body habitus and well nourished Orientation: alert, awake and oriented x3 Head Head: normal to inspection Ears: hearing grossly normal bilaterally Nose: external nose normal Face and Sinus: face symmetric Mouth: oral mucosae normal Eyes General: appearance normal, both eyes and all related structures Eyelids: eyelids normal EOM: EOM intact bilaterally Neck Neck: normal visual inspection and no JVD Carotids: normal carotid upstroke Chest Chest inspection: normal inspection of the chest, symmetric chest movement and normal respiratory effort; negative cough Auscultation: Bilateral: Clear to Auscultation Cardio Rate: regular rate Rhythm: regular rhythm Heart sounds: S1 normal and S2 normal; negative rub, gallop or murmur GI GI: normal to inspection Neuro General: alert, awake, oriented x3 and CN's II-XI intact bilaterally Skin Skin: no rashes or lesions noted Extremities Pulses: Normal: Right Posterior Tibial Pulse, Left Posterior Tibial Pulse, Right Radial Pulse, Left Radial Pulse Lower Extremity Edema: None: Bilateral Psych Psychological: normal affect Assessment AND Plan 1. Atherosclerosis of [place] coronary artery of [place] heart without angina pectoris I25.10 PCI-AFSHAN-LCx w/ 2.5 x 24 mm Synergy Stent 05/31/17 Plan Patient does acknowledge chest pain during times of stress and intermittent shortness of breath. This appears atypical for coronary artery disease. Her heart catheterization in August 2017 showed ostial LAD with 30% stenosis, mid LCx with patent previous placed stent, OM 2 with moderate luminal irregularities up to 40%, and mild luminal irregularities of RCA. Due to her continued shortness of breath and unknown etiology of her symptoms, she will undergo an echocardiogram to help assess LV function and wall motion. Based on results, further recommendation be made. Orders Orders: 2. History of coronary artery stent placement Z95.5 PCI-AFSHAN-LCx w/ 2.5 x 24 mm Synergy Stent 05/31/17 Plan Her most recent heart catheterization August 2017 showed patent LCx stent. Her OM 2 showed moderate luminal irregularities up to 40% and ostial LAD with 30% stenosis. At this time she will continue current medications and we will continue to monitor. Orders Orders: 3. Sick sinus syndrome I49.5 Plan She is status post permanent pacemaker for this. Her pacemaker report prior to office visit showed battery longevity 9.5-10.5 years AP percent at 61% HOSPICE SOCIAL WORKER percent less than 1% and 2V HR episodes of atrial flutter with RVR on 01/04 and 10/08. Patient does acknowledge feeling fatigue that she believes was associated with those to atrial fibrillation episodes. She is on aspirin and Plavix therapy. She is on low-dose beta-virgilio. At this time, we will continue to monitor. 4. Presence of permanent cardiac pacemaker Z95.0 Pacemaker implant 12/18/06; Generator change 04/19/15 Plan Patient's pacemaker/ICD appears to be functioning appropriately. We will continue to monitor this with routine/scheduled follow-ups. 5. Essential (primary) hypertension I10 Plan Patient's blood pressure is well-controlled. We will continue to monitor. We will not make any medication regimen changes. Orders Orders: 6. Hyperlipidemia, unspecified hyperlipidemia type E78.5 Plan Lipid panel from June 2018 showed cholesterol: 156, HDL: 62, LDL: 86, and triglycerides: 85. She will continue current statin medication. Orders Orders: Plan Detail Other Orders Orders: Additional Comments Thank you for allowing us to participate in the patients plan of care, if you have any questions please do not hesitate to call. This note was generated using a voice recognition system and there may be incorrect words, spelling or punctuation that were not noted when reviewing the office note prior to saving. 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 transplanted heart: [place] heart History of coronary artery stent placement Z95.5 Sick sinus syndrome I49.5 Presence of permanent cardiac pacemaker Z95.0 Essential (primary) hypertension I10 Hyperlipidemia, unspecified hyperlipidemia type E78.5 Hyperlipidemia type: unspecified Coding Level of Care Code Off vis,est,level 4 Diagnoses Atherosclerosis of [place] coronary artery of [place] heart without angina pectoris I25.10 [place] vs. transplanted heart: [place] heart History of coronary artery stent placement Z95.5 Sick sinus syndrome I49.5 Presence of permanent cardiac pacemaker Z95.0 Essential (primary) hypertension I10 Hyperlipidemia, unspecified hyperlipidemia type E78.5 Hyperlipidemia type: unspecified Supplemental Info Supplemental Information Heart catheterization from August 2017 showed ejection fraction of 60%, left main as angiographically normal, ostial LAD with 30% stenosis, mid LCx with previous placed stent as patent, OM 2 with proximal moderate luminal irregularities up to 40%, and RCA with mild luminal irregularities. Medical management was recommended. Carotid duplex ultrasound from November 2011 showed no significant atherotic plaque or stenosis noted internal carotid arteries bilaterally. Bilateral internal carotid artery stenosis less than 50%, which is not hemodynamically significant. Echocardiogram 11/30/2011: Estimated ejection fraction of 63%, mild diffuse mitral thickening, mild mitral valve prolapse, mild mitral valve insufficiency, trivial tricuspid valve in systole, aortic sclerosis, no stenosis, trivial aortic valve insufficiency, trivial pulmonic valve insufficiency, RVSP of 26 mmHg, ICD or pacer leads identified within the right atrium and right ventricle. Stress test from January 2017 was a normal pharmacologic myocardial perfusion stress test with a preserved ejection fraction of 84%. Labs LDL Cholesterol 86 mg/dL (0-99) 07/02/18 HDL Cholesterol 62 mg/dL (>39) 07/02/18 Triglycerides 85 mg/dL (-199) 07/02/18 VLDL Cholesterol 17 mg/dL (5-40) 07/02/18 Diagnostics Pacemaker Check 01/23/19 01/23/19 1533 <Electronically signed by Jian HUMMEL> Date Jian HUMMEL Cosigner Signature: Date (if applicable) CC: Rox Jones Start: 01-23-2019 End: 01-23-2019 Pacemaker Check Comments: See Note; NOTES: [facility] [place] [address] Pacemaker Check Date of Service: 01/23/19 1344 MR#: [id number] Acct: [id number] Name: TRINIDAD PARKER Karl Rep #: [id number] : 1935 From: Nikki Tamayo Age/Sex: 83/F Location: [facility] Status: Signed Billing Codes PM Device Codes: PM Dev Prog Eval, Dual 01/23/19 1346 <Electronically signed by Nikki Tamayo > Date Nikki Romero Signature: Date (if applicable) CC: Rox Huerta Start: 11-05-2018 End: 11-05-2018 SCREEN MAMM (CAD) W/GENEVIEVE BILAT Comments: See Note; NOTES: [facility] Imaging Services [address] [place] [address] SCREEN MAMM (CAD) W/GENEVIEVE BILAT MR#: [id number] Acct: [id number] Name: TRINIDAD PARKER Rep #: [id number] : 1935 F 83 From: Darell Monte MD PCP: Rox Huerta DO Status: REG CLI Study: SCREEN MAMM (CAD) W/GENEVIEVE BILAT Date of Exam: 11/05/18 Exam# [id number] Ordering Dr: Rox Huerta DO MAMMOGRAPHY - BILATERAL SCREENING 3-D TOMOSYNTHESIS REASON FOR EXAM: Female, 83 years old. Bilateral Screening 3-D tomosynthesis PERTINENT HISTORY: Sister with breast cancer.. TECHNIQUE: 2-D mammograms and 3-D Tomosynthesis of the breast (s) were performed. CAD was performed. COMPARISON: 03/08/2017. FINDINGS: The breast composition is heterogeneously dense that can obscure small breast masses. Stable right pacemaker. Scattered benign calcifications are seen. No dense spiculated masses or suspicious microcalcifications are identified. No architectural distortion is identified. There is no skin thickening or retraction. There has been no significant change since the prior study. BI/SCREEN MAMM (CAD) W/GENEVIEVE BILAT IMPRESSION: No mammographic signs of malignancy. Routine yearly mammograms recommended. ASSESSMENT CATEGORY: BIRADS Category 2: Benign. A letter regarding these results will be sent to the patient by the facility within 30 days. FOLLOW UP RECOMMENDATION: Yearly follow up mammogram recommended. (A) Approximately 10% of breast cancers are not detected by mammography. A normal mammogram should not delay biopsy of a clinically suspicious abnormality. Electronically Signed: Darell Monte MD at 16:32 EDT Tel [phone], Service support , CC: Rox Huerta DO Terminal Worker: Signed Rox Huerta Work Phone: Start: 07-24-2018 End: 07-24-2018 Pacemaker Check Comments: See Note; NOTES: [facility] [address] [place] [address] Pacemaker Check Date of Service: 07/24/18718 MR#: [id number] Acct: [id number] Name: RENÉEPITATRINIDAD Karl Rep #: [id number] : 1935 From: Nikki Tamayo Age/Sex: 83/F Location: [facility] Status: Signed Billing Codes PM Device Codes: PM Dev Prog Eval, Dual 07/24/18719 <Electronically signed by Nikki Tamayo > Date Nikki Tamayo Cosigner Signature: Date (if applicable) CC: Rox Huerta Start: 07-23-2018 End: 07-23-2018 Cardiology Visit Report Comments: See Note; NOTES: [facility] [address] [place], [place] [address] OFFICE VISIT Date of Service: 07/23/18 MR#: [id number] Acct: [id number] Name: TRINIDAD PARKER Rep #: [id number] : 1935 Provider: Pako Morocho MD Age/Sex: 83/F Location: [facility] Status: Signed HPI HPI Details: TRINIDAD PARKER, is a 83 F who presents to the office today for a cardiovascular outpatient follow-up. She has a history of coronary artery disease status post drug-eluting stent to LCx in May 2017, status post permanent pacemaker placement, hypertension, and hyperlipidemia. Pt. denies arm, jaw, or neck discomfort. Her exercise tolerance is stable. Pt. denies symptoms of CHF, palpitations, near syncope, or syncopal episodes. Pt. denies edema or claudication issues. Patient says that she has been under significant amount of stress. She says that her blood pressures at home with a radial cuff has been elevated. She is also had some problems with her vision. She has had no dizziness or diaphoresis near syncope or syncope. You do remember she also had a pacemaker generator change in 2015. Her physical exam here today demonstrates clear lung barreto regular rate and rhythm and no pedal edema. Intake Vital Signs07/23/18 Height 5 ft 5 in Intake Visit Reasons: 6 M FU; Pacer @ 1pm Allergies metformin Allergy (Verified 07/23/18 10:38) Unknown Penicillins [PCN] Allergy (Verified 07/23/18 10:38) Unknown atorvastatin Adverse Reaction (Severe, Verified 07/23/18 10:38) elevated liver enzymes Medications Cholecalciferol (VIT D3) [Vitamin D3] 1,000 unit PO DAILY 04/16/15 [History Confirmed 07/23/18] Levothyroxine Sodium [Unithroid] 50 mcg PO DAILY 04/16/15 [History Confirmed 07/23/18] Ipratropium/Albuterol Respimat [Combivent Respimat Inhal [place]] 1 puff INHALATION BID 12/01/16 [History Confirmed 07/23/18] Ipratropium/Albuterol Sulfate [Duoneb] 3 ml INHALATION BID PRN 05/30/17 [History Confirmed 07/23/18] lisinopril 10 mg tablet 10 mg PO DAILY #90 tab 06/08/17 [Rx Confirmed 07/23/18] metoprolol tartrate 25 mg tablet 12.5 mg PO BID #90 tab 08/03/17 [Rx Confirmed 07/23/18] atorvastatin 40 mg tablet 40 mg PO .every other day #90 tab 08/28/17 [Rx Confirmed 07/23/18] aspirin 81 mg tablet,delayed release 81 mg PO QDAY 09/05/17 [History Confirmed 07/23/18] nitroglycerin 0.4 mg sublingual tablet 0.4 mg SUBLINGUAL Q5-15M PRN #25 tab 04/15/18 [Rx Confirmed 07/23/18] clopidogrel 75 mg tablet 75 mg PO DAILY #90 tab 07/01/18 [Rx Confirmed 07/23/18] lansoprazole 30 mg capsule,delayed release PO 90 Days #90 cap 07/23/18 [History Confirmed 07/23/18] [facility] Medical History Essential (primary) hypertension (Chronic) Hyperlipidemia (Chronic) Complete heart block (Chronic) Sick sinus syndrome (Chronic) Atherosclerotic heart disease of [place] coronary artery without angina pectoris (Chronic) Nonrheumatic mitral (valve) prolapse (Chronic) NSTEMI (non-ST elevated myocardial infarction) (Resolved 05/30/17) Anxiety (Chronic) Bone spur of foot (Chronic) COPD (chronic obstructive pulmonary disease) (Chronic) Diverticulosis (Chronic) GERD (gastroesophageal reflux disease) (Chronic) Ganglion cyst of left foot (Chronic) Hypothyroidism (Chronic) Osteoarthritis (Chronic) Dizziness and giddiness (Inactive) Fatigue (Inactive) Intermittent chest pain (Inactive) Surgical History Presence of permanent cardiac pacemaker (Chronic 04/19/15) History of coronary artery stent placement (Resolved 05/31/17) H/O bladder repair surgery (Resolved) H/O excision of ganglion cyst (Resolved) History of appendectomy (Resolved) History of back surgery (Resolved) History of carpal tunnel release (Resolved) History of hysterectomy (Resolved) History of left heart catheterization (Resolved 09/10/17) Family History Father Cancer lung cancer Heart disease Mother CVA (cerebral vascular accident) Hypertension Sister Hypertension Cancer lung cancer Son Diabetes Hypertension Myocardial infarction, Onset Age: 48 Social History Smoking Status: Former smoker alcohol intake: never substance use type: does not use caffeine: Yes Type: coffee Number of servings: 3 what type of physical activity do you participate in: none seatbelt use: always do you feel safe at home: Yes ROS Const Const: Positive for fatigue (in the afternoon), weakness and other (Becomes very weak and tired after taking metoprolol); negative for headache(s), frequent falls, difficulty sleeping or excessive sweating Eyes Eyes: Positive for change in vision and other (Sensitivity to bright lights); negative for loss of peripheral vision, transient loss of vision, blurry vision, double vision or tunnel vision ENT ENT: Negative for headache(s), dizziness, Nosebleed/epistaxis or balance problems Cardio Chest Pain: No Palpitations: No Edema: None Muscle aches with walking: None Resp Respiratory: Negative for SOB with activity, SOB at rest, SOB orthopnea\SOB lying down, Cough or paroxysmal nocturnal dyspnea GI GI: Negative nausea, vomiting, heartburn or black,tarry stools : Negative for hematuria Musc Musc: Negative for muscle aches/ myalgia, muscle weakness, joint pain or balance problems Skin Skin: Negative non-healing lesions, rash or unusual bruising Neuro Neuro: Positive for lightheadedness and weakness; negative for dizziness, near syncope, syncope, orthostatic symptoms, frequent falls, headache(s), blurry vision, double vision or lack of coordination Rams[place] Hematologic/Lymphatic: Negative for easy bleeding or easy bruising Endo Endo: Positive for fatigue (in the afternoon); negative for excessive sweating or increased thirst/drinking Psych Psych: Negative for anxiety or depression Allergy Allergy/Immunology: Negative for hives, Negative for rash Cardiology Exam Const Appearance: cooperative, healthy appearing, no acute distress, well developed and well groomed Nutritional Appearance: average body habitus and well nourished Orientation: alert, awake and oriented x3 Head Head: normal to inspection, normocephalic and atraumatic Ears: hearing grossly normal bilaterally and external ears normal Nose: external nose normal, nares normal, nasal mucous membranes and turbinates normal, septum normal, no nasal discharge Face and Sinus: face symmetric Mouth: oral mucosae normal, tongue normal, oropharynx normal and moist mucous membranes Teeth and gingiva: dentition normal Throat: posterior oropharynx normal, tonsils normal and uvula midline Eyes General: appearance normal, both eyes and all related structures Eyelids: eyelids normal Conjunctivae: conjunctivae normal Pupils: PERRL, normal by confrontation and accommodation normal EOM: EOM intact bilaterally Neck Neck: normal visual inspection, trachea midline and no JVD JVD: +5 Carotids: normal carotid upstroke and bounding pulses Chest Chest inspection: normal inspection of the chest, symmetric chest movement and normal respiratory effort Auscultation: Bilateral: Clear to Auscultation Cardio Palpation: normal PMI Rate: regular rate Rhythm: regular rhythm Heart sounds: S1 normal, S2 normal and normal, physiologic split S2; negative rub, gallop or murmur GI GI: normal to inspection, soft, no hepatosplenomegaly and bowel sounds present Neuro General: alert, awake, oriented x3, gait normal, moves all extremities and no focal sensory deficit Skin Skin: no rashes or lesions noted Extremities Pulses: Normal: Right Femoral Pulse, Left Femoral Pulse, Right Dorsalis Pedis Pulse, Left Dorsalis Pedis Pulse, Right Posterior Tibial Pulse, Left Posterior Tibial Pulse, Right Radial Pulse, Left Radial Pulse Lower Extremity Edema: None: Bilateral Musculoskel Musculoskeletal: No joint tenderness Psych Psychological: normal affect Assessment AND Plan 1. Essential (primary) hypertension I10 Plan She does have a history of hypertension but her blood pressure is under good control at this particular time I would recommend that she continue the lisinopril as well as the beta-virgilio. Her isosorbide can be discontinued. 2. Presence of permanent cardiac pacemaker Z95.0 Pacemaker implant 12/18/06; Generator change 04/19/15 Plan She does have permanent pacemaker implanted. Her pacemaker was interrogated today she is a paced V sensed at 60 bpm battery longevity is 10 years she has had no mode switches. Overall her pacemaker appears to be functioning well. 3. Atherosclerosis of [place] coronary artery of [place] heart without angina pectoris I25.10 PCI-AFSHAN-LCx w/ 2.5 x 24 mm Synergy Stent 05/31/17 Plan She does have a history of atherosclerotic cardiovascular disease. She underwent a cardiac catheterization in August 2017 which demonstrated patent stents with an ejection fraction of 60%. She will continue with aspirin the clopidogrel. I think we can discontinue the isosorbide at this time as she does not appear to have had any angina. 4. Hyperlipidemia E78.5 Plan She does have a history of hyperlipidemia she will continue on her current dose of statin. Her most recent lipid profile demonstrated total cholesterol 156, LDL of 86 and HDL of 62. No changes will be made. Some fatigue as well as visual issues and occasional dizziness. I am suggesting that we discontinue the isosorbide and continue to observe her. Thank you for allowing me to participate in her care. Thank you for allowing me to participate in the care of your patient. Please don't hesitate to call if any issues arise Plan Detail Other Medications Discontinued: isosorbide mononitrate ER Discontinued Reason: Order [id number] mg PO QAM 30 tabs 11RF d Follow Up 6 Months (r) Coding Level of Care Code Off vis,est,level 4 Diagnoses Essential (primary) hypertension I10 Presence of permanent cardiac pacemaker Z95.0 Atherosclerosis of [place] coronary artery of [place] heart without angina pectoris I25.10 [place] vs. transplanted heart: [place] heart Hyperlipidemia E78.5 Coding Level of Care Code Off vis,est,level 4 Diagnoses Essential (primary) hypertension I10 Presence of permanent cardiac pacemaker Z95.0 Atherosclerosis of [place] coronary artery of [place] heart without angina pectoris I25.10 [place] vs. transplanted heart: [place] heart Hyperlipidemia E78.5 Supplemental Info Supplemental Information Labs LDL Cholesterol 86 mg/dL (0-99) 07/02/18 HDL Cholesterol 62 mg/dL (>39) 07/02/18 Triglycerides 85 mg/dL (-199) 07/02/18 VLDL Cholesterol 17 mg/dL (5-40) 07/02/18 Diagnostics Electrocardiogram 09/10/17 Pacemaker Check 01/18/18 Cardiac Catheterization 09/10/17 07/23/18 1330 <Electronically signed by Pako Morocho MD> Date Pako Morocho MD Cosigner Signature: Date (if applicable) CC: Rox Jones Start: 05-30-2018 End: 05-30-2018 Cardiology Visit Report Comments: See Note; NOTES: [facility] [place] [address] OFFICE VISIT Date of Service: 01/18/18 MR#: [id number] Acct: [id number] Name: TRINIDDA PARKER Rep #: [id number] : 1935 Provider: SCOTTIE King Age/Sex: 82/F Location: [facility] [place] Status: Signed HPI HPI Chief Complaint: Follow-up visit Details: TRINIDAD PARKER, is a 82 F who presents to the office today for a cardiovascular outpatient follow-up. She has a history of coronary artery disease status post drug-eluting stent to LCx in May 2017, status post permanent pacemaker placement, hypertension, and hyperlipidemia. Pt. denies arm, jaw, or neck discomfort. Her exercise tolerance is stable. Pt. denies symptoms of CHF, palpitations, near syncope, or syncopal episodes. Pt. denies edema or claudication issues. Pt. denies orthopnea, PND, blood in urine, blood in stool, myalgia, or unexplainable fatigue. She states a funny feeling in her right side of chest that she describes as a pressure. This occurs when really busy and stressed/nervous. There are no associated secondary symptoms. She states lightheadedness and dizziness at times after taking medications. She states taking a 30min-60min nap mid day. Intake Vital Signs01/18/18 Height 5 ft 5 in 01/18/18 Weight: 141 lb 01/18/18 Body Mass Index (BMI) 23.4 01/18/18 Blood Pressure 142/62 H H 01/18/18 Blood Pressure Location Lt brachial Intake Visit Reasons: 6 M FU; pacer @ 11am Oil Boiler Required: No Accompanied by: None Is patient in pain?: No Allergies metformin Allergy (Verified 07/17/17 10:53) Unknown Penicillins [PCN] Allergy (Verified 07/17/17 10:53) Unknown atorvastatin Adverse Reaction (Severe, Verified 07/17/17 10:53) elevated liver enzymes Medications Cholecalciferol (VIT D3) [Vitamin D3] 1,000 unit PO DAILY 04/16/15 [History Confirmed 01/18/18] Levothyroxine Sodium [Unithroid] 50 mcg PO DAILY 04/16/15 [History Confirmed 01/18/18] Ipratropium/Albuterol Respimat [Combivent Respimat Inhal [place]] 1 puff INHALATION BID 12/01/16 [History Confirmed 01/18/18] Ipratropium/Albuterol Sulfate [Duoneb] 3 ml INHALATION BID PRN 05/30/17 [History Confirmed 01/18/18] clopidogrel 75 mg tablet 75 mg PO DAILY #90 tab 06/08/17 [Rx Confirmed 01/18/18] lisinopril 10 mg tablet 10 mg PO DAILY #90 tab 06/08/17 [Rx Confirmed 01/18/18] metoprolol tartrate 25 mg tablet 12.5 mg PO BID #90 tab 08/03/17 [Rx Confirmed 01/18/18] atorvastatin 40 mg tablet 40 mg PO .every other day #90 tab 08/28/17 [Rx Confirmed 01/18/18] isosorbide mononitrate ER 30 mg tablet,extended release 24 hr 30 mg PO QAM #30 tab 08/31/17 [Rx Confirmed 01/18/18] aspirin 81 mg tablet,delayed release 81 mg PO QDAY 09/05/17 [History Confirmed 01/18/18] PFSH Medical History Sick sinus syndrome (Chronic) HLD (hyperlipidemia) (Chronic) Complete heart block by electrocardiogram (Chronic) Atherosclerotic heart disease of [place] coronary artery without angina pectoris (Chronic) Nonrheumatic mitral (valve) prolapse (Chronic) Atherosclerosis of coronary artery of [place] heart without angina pectoris (Acute) NSTEMI (non-ST elevated myocardial infarction) (Acute) COPD (chronic obstructive pulmonary disease) (Chronic) Hypothyroidism (Chronic) Hypertension (Chronic) Dizziness and giddiness (Acute) Fatigue (Acute) Intermittent chest pain (Acute) Anxiety (Chronic) Diverticulosis (Chronic) GERD (gastroesophageal reflux disease) (Chronic) Surgical History Cardiac pacemaker in situ (Chronic) History of coronary artery stent placement (Acute 05/31/17) Family History Father Cancer lung cancer Heart disease Mother CVA (cerebral vascular accident) Hypertension Sister Hypertension Cancer lung cancer Son Diabetes Hypertension Myocardial infarction, Onset Age: 48 Social History Smoking Status: Former smoker alcohol intake: never substance use type: does not use caffeine: Yes Type: coffee Number of servings: 3 what type of physical activity do you participate in: none seatbelt use: always do you feel safe at home: Yes ROS Const Const: Negative for body ache, fever(s), chills, fatigue or weakness ENT ENT: Positive for dizziness Cardio Chest Pain: Yes Palpitations: No Edema: None Muscle aches with walking: None Resp Respiratory: Negative for SOB with activity, SOB at rest, SOB orthopnea\SOB lying down or paroxysmal nocturnal dyspnea GI GI: Negative nausea, black,tarry stools, bright, red blood in stools or vomiting blood/hematemesis : Negative for hematuria or frequent nighttime urination/ nocturia Musc Musc: Negative for muscle aches/ myalgia Skin Skin: Negative non-healing lesions or rash Neuro Neuro: Positive for dizziness and lightheadedness; negative for weakness, near syncope, syncope or orthostatic symptoms Endo Endo: Negative for fatigue Allergy Allergy/Immunology: Negative for rash Cardiology Exam Const Appearance: cooperative, healthy appearing, comfortable and no acute distress Nutritional Appearance: average body habitus and well nourished Orientation: alert, awake and oriented x3 Head Head: normal to inspection Ears: hearing grossly normal bilaterally Nose: external nose normal Face and Sinus: face symmetric Mouth: oral mucosae normal Eyes General: appearance normal, both eyes and all related structures Eyelids: eyelids normal EOM: EOM intact bilaterally Neck Neck: no JVD and normal visual inspection Carotids: normal carotid upstroke Chest Chest inspection: normal inspection of the chest and normal respiratory effort; negative cough Auscultation: Bilateral: Clear to Auscultation Cardio Rate: regular rate Rhythm: regular rhythm Heart sounds: S1 normal and S2 normal; negative rub, gallop or murmur GI GI: normal to inspection Neuro General: alert, awake, oriented x3 and CN's II-XI intact bilaterally Skin Skin: no rashes or lesions noted Extremities Pulses: Normal: Right Posterior Tibial Pulse, Left Posterior Tibial Pulse, Right Radial Pulse, Left Radial Pulse Lower Extremity Edema: None: Bilateral Psych Psychological: normal affect Supplemental Info Heart catheterization from August 2017 showed ejection fraction of 60%, left main as angiographically normal, ostial LAD with 30% stenosis, mid LCx with previous placed stent as patent, OM 2 with proximal moderate luminal irregularities up to 40%, and RCA with mild luminal irregularities. Medical management was recommended. Carotid duplex ultrasound from November 2011 showed no significant atherotic plaque or stenosis noted internal carotid arteries bilaterally. Bilateral internal carotid artery stenosis less than 50%, which is not hemodynamically significant. Estimated ejection fraction of 63%, mild diffuse mitral thickening, mild mitral valve prolapse, mild mitral valve insufficiency, trivial tricuspid valve in systole, aortic sclerosis, no stenosis, trivial aortic valve insufficiency, trivial pulmonic valve insufficiency, RVSP of 26 mmHg, ICD or pacer leads identified within the right atrium and right ventricle. Stress test from January 2017 was a normal pharmacologic myocardial perfusion stress test with a preserved ejection fraction of 84%. Assessment AND Plan 1. Dizziness R42 SHAHEED Finley She was asked to adjust the timing of her medications. She was asked to take isosorbide and lisinopril at different times. Hopefully this improves her lightheaded and dizziness that she experiences after medications. There will be no adjustments with her metoprolol at this time. 2. Atherosclerosis of [place] coronary artery of [place] heart without angina pectoris I25.10 SHAHEED Finley Patient denies any chest pain, arm pain, jaw pain, neck pain, shortness of breath, or fatigue suggestive of angina at this time. We will continue to monitor this. We will not make any medication regimen changes and will continue risk factor modification. 3. History of coronary artery stent placement Z95.5 [id number] Cx 2.5 x 24 mm Synergy Stent 05/31/17 SHAHEED Finley Her most recent heart catheterization August 2017 showed patent LCx stent. Her OM 2 showed moderate luminal irregularities up to 40% and ostial LAD with 30% stenosis. At this time she will continue current medications and we will continue to monitor. 4. Cardiac pacemaker in situ Z95.0 Pacemaker implant 12/18/06; Generator change 04/19/15 SHAHEED Finley Her most recent pacemaker check from January 2018 showed AP%=54%, HOSPICE SOCIAL WORKER%=2.2%, battery longevity of 10-10.6 years, 5 MS episodes comprising of less than 1% total time, episode of atrial flutter on 12/09/2017 for 1 minute and 20 seconds, and 2 VHR episodes. She will continue to follow-up with pacemaker clinic on a routine/scheduled basis. 5. Essential hypertension I10 SHHAEED Finley Her blood pressure is slightly elevated. Her medication will be adjusted as outlined above. She was asked to continue to monitor blood pressure at home and contact our office if it increases. 6. Pure hypercholesterolemia E78.00 SHAHEED Finley Her most recent lipid panel from August 2017 showed cholesterol: 191, HDL: 54, LDL: 123, and triglycerides: 70. Her liver function also normalized at this time. She has adjusted her atorvastatin to 40 mg every other day. She will undergo repeat liver and lipid panel for further evaluation at her convenience. Plan Detail Other Orders Orders: Other Medications Discontinued: acetaminophen Discontinued Reason: Pt no 650 mg (2 x 325 mg) PO Q6H PRN PRN 0RF Pain, longer taking fever, headache Additional Comments - NADIA CordovaC Discussed the above patient with Dr. Morocho, he agrees with the plan of care. Thank you for allowing us to participate in the patients plan of care, if you have any questions please do not hesitate to call. This note was generated using a voice recognition system and there may be incorrect words, spelling or punctuation that were not noted when reviewing the office note prior to saving. 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 transplanted heart: [place] heart History of coronary artery stent placement Z95.5 Cardiac pacemaker in situ Z95.0 Essential hypertension I10 Hypertension type: essential hypertension Pure hypercholesterolemia E78.00 Hyperlipidemia type: pure hypercholesterolemia Coding Level of Care Code Off vis,est,level 3 Diagnoses Dizziness R42 Atherosclerosis of [place] coronary artery of [place] heart without angina pectoris I25.10 [place] vs. transplanted heart: [place] heart History of coronary artery stent placement Z95.5 Cardiac pacemaker in situ Z95.0 Essential hypertension I10 Hypertension type: essential hypertension Pure hypercholesterolemia E78.00 Hyperlipidemia type: pure hypercholesterolemia 01/18/18 1249 <Electronically signed by Jian ZUNIGAC> Date Jian ZUNIGAC 01/21/18 0717<Electronically signed by Pako Morocho MD> Cosigner Signature: Date (if applicable) Pako Morocho MD CC: Rox Jones Start: 01-21-2018 End: 01-21-2018 Pacemaker Check Comments: See Note; NOTES: [facility] [address] [place] [address] Pacemaker Check Date of Service: 01/18/18 1450 MR#: [id number] Acct: [id number] Name: RENÉETRINIDAD Karl Rep #: [id number] : 1935 From: Nikki Tamayo Age/Sex: 82/F Location: [facility] [place] Status: Signed Billing Codes PM Device Codes: PM Dev Prog Eval, Dual 01/18/18 145 <Electronically signed by Nikki Tamayo > Date Nikki Tamayo 01/21/18 0717<Electronically signed by Pako Morocho MD> Cosigner Signature: Date (if applicable) Pako Morocho MD CC: Rox Huerta Start: 09-10-2017 End: 09-10-2017 Consultation Comments: See Note; NOTES: [facility] Medical Records Department [address] [place] [address] Consultation 09/10/17 1043 MR#: [id number] Acct: [id number] Name: TRINIDAD PARKER Rep #: [id number] : 1935 82 From: Pako Morocho MD PCP: Rox Huerta DO Status: REG SD Y Location: [facility] Reason for Consult Date of Consultation: 09/10/17 Reason for Consultation: Chest pain History of Present Illness: The patient is a 82 year old F with past medical history consisting of coronary artery disease status post pacemaker placement who had presented to the emergency room in May because of chest pain. She denied associated dizziness, lightheadedness, syncope or presyncope. She mentioned that the pain is only around the pacemaker and pacemaker pops up when she lay on her left side. The pain around her pacemaker site however is different from this discomfort that she had. She had been seen in the office last fall and complained of mild chest discomfort and underwent a pharmacologic myocardial perfusion stress test in January 2017 which did not demonstrate any evidence of ischemia. You do remember that her last catheterization was performed in 2011. At that time demonstrated ejection fraction of 65%, left anterior descending artery with 20-30% proximal stenosis, first diagonal vessel with 50% ostial stenosis, small septal software engineer kernel with 20 to 30% stenosis in the circumflex artery 20% stenosis. Medical therapy was recommended. In May when she presented with the chest discomfort it was decided for her to undergo a cardiac catheterization and this was performed her left main coronary artery had mild disease right coronary artery had an ostial 30% stenosis the left anterior descending artery had mild disease. She did have tandem lesions in the circumflex artery and underwent angioplasty and stenting with a 2.5 24 mm Promus drug-eluting stent to the circumflex artery. She had done well since then but then started to complain of chest discomfort once again and so was seen in the office she had her medications changed but she continued to have recurrent chest discomfort and therefore it was decided to proceed with a cardiac catheterization. Past Medical History Allergies/Adverse Reactions: Allergies metformin Allergy (Verified 07/17/17 10:53) Unknown Penicillins [PCN] Allergy (Verified 07/17/17 10:53) Unknown atorvastatin Adverse Reaction (Severe, Verified 07/17/17 10:53) elevated liver enzymes Home Medications: Ambulatory Orders Medication Instructions Recorded Cholecalciferol (VIT D3) [Vitamin 1,000 unit PO DAILY 04/16/15 Past Medical History (Chronic Problems): Chronic Problems (Last Updated 07/31/17 @ 19:06 by Nikki Tamayo) Sick sinus syndrome (Chronic) Cardiac pacemaker in situ (Chronic) Pacemaker implant 12/18/06; Generator change 04/19/15 HLD (hyperlipidemia) (Chronic) Complete heart block by electrocardiogram (Chronic) Encounter for long-term current use of high risk medication (Chronic) Atherosclerotic heart disease of [place] coronary artery without angina pectoris (Chronic) Nonrheumatic mitral (valve) prolapse (Chronic) Dyslipidemia (Chronic) COPD (chronic obstructive pulmonary disease) (Chronic) Left foot pain (Chronic) Ganglion cyst of left foot (Chronic) Bone spur of foot (Chronic) Hypothyroidism (Chronic) Hypertension (Chronic) Surgical History: noncontributory - *Family History Maternal Family History: Family History (Last Reviewed 07/17/17 @ 11:10 by Pako Morocho MD) Father Cancer Heart disease Mother CVA (cerebral vascular accident) Hypertension Sister Hypertension Cancer Son Diabetes Hypertension Myocardial infarction, Onset Age: 48 History Items: No pertinent history Paternal Family History: Family History (Last Reviewed 07/17/17 @ 11:10 by Pako Morocho MD) Father Cancer Heart disease Mother CVA (cerebral vascular accident) Hypertension Sister Hypertension Cancer Son Diabetes Hypertension Myocardial infarction, Onset Age: 48 History Items: No pertinent history Smoking Status: Former smoker Alcohol: None Drugs: None Review of Systems - Review of Systems General: Denies: Fever, Night Sweats, Fatigue Cardiovascular: Reports: Chest Discomfort, Chest Discomfort with Exertion. Denies: Shortness of Breath, Orthopnea, PND, Peripheral Edema, Palpitations, Lightheadedness, Dizziness, Near Syncope, Syncope Respiratory: Denies: Cough, Sputum Production, Hemoptysis Gastrointestinal: Denies: Hematemesis, Hematochezia, Melena Genitourinary: Denies: Dysuria, Hematuria Skin: Denies: Rash Subjectve: Pleasant lady in no apparent distress Objective: Weight: 140 lb Body Mass Index (BMI) 23.3 General: Awake, Alert, Oriented x 3 HEENT: PERRL, EOMI, Sclera Non Icteric Neck: Supple, Good ROM, No Lymph Node Enlargement Lungs: Clear to auscultation Cardiovascular: Regular Rhythm, Normal S1, Normal S2, No Murmurs, No Rubs, No Gallops Vascular: No Carotid Bruits, Normal Femoral Pulses, Normal Radial Pulses, Normal Dorsalis Pedal Pulse, Normal Posterior Tibial Pulses Abdomen: Bowel Sounds Present, Soft, Non Tender, No HSM, No Organomegaly Extremities: No Cyanosis, No Clubbing, No edema Neurological: No Focal Motor or Sensory Deficit Rhythm: EKG: ECHO: Stress Test: Cardiac Cath: PCI: CT Surgery: Holter monitor: EPS: PPM: CXR: Chest CT Scan: Assessment/Plan 1. Recurrent chest pain. She does have a history of coronary artery disease status post angioplasty and stenting with a drug-eluting stent to the circumflex artery in May of this year. She has continued with beta-virgilio and clopidogrel and has been on cardiac rehabilitation however due to recurrent chest discomfort it was decided to pursue a cardiac catheterization. The risk benefits and alternatives have been explained to her she understands and agrees to proceed. 2. Hyperlipidemia. She does have a history of hyperlipidemia on high intensity statin her most recent lipid profile demonstrated a total cholesterol of 116, LDL of 56, and HDL of 51. She did have elevated liver function tests and therefore her atorvastatin was discontinued and a repeat lipid profile will be performed. 3. Status post cardiac pacemaker placement. She does have a sequential AV pacemaker which has been interrogated with a pacemaker battery change in 2015 no significant arrhythmias have been noted. 4. Hypertension. Her blood pressure appears to be under good control and will continue the current medical therapy. No major changes will be made at this time. Thank you for allowing me to participate in the care of your patient. Please don't hesitate to call if any issues arise 09/10/17 1051 <Electronically signed by Pako Morocho MD> Date Pako Morocho MD Cosigner Signature (if applicable): Date CC: Pako Morocho MD; Rox Huerta DO Signed Rox Huerta Start: 09-05-2017 End: 09-05-2017 Office Visit Report Comments: See Note; NOTES: [facility] [address] [place] [address] OFFICE VISIT Date of Service: 09/05/17 MR#: [id number] Acct: [id number] Patient: TRINIDAD PARKER Rep #: [id number] : 1935 Provider: Pako Morocho MD Age/Sex: 82/F Location: [facility] [place] Status: Signed Intake Intake Visit Reasons: cath teaching and EKG Chief Complaint: CHEST PAIN W/ BRODERLINE TROPONIN Allergies metformin Allergy (Verified 07/17/17 10:53) Unknown Penicillins [PCN] Allergy (Verified 07/17/17 10:53) Unknown atorvastatin Adverse Reaction (Severe, Verified 07/17/17 10:53) elevated liver enzymes Medications Cholecalciferol (VIT D3) [Vitamin D3] 1,000 unit PO DAILY 04/16/15 [History Confirmed 07/17/17] Lansoprazole [Prevacid] 30 mg PO DAILY 04/16/15 [History Confirmed 07/17/17] Levothyroxine Sodium [Unithroid] 50 mcg PO DAILY 04/16/15 [History Confirmed 07/17/17] Ipratropium/Albuterol Respimat [Combivent Respimat Inhal [place]] 1 puff INHALATION BID 12/01/16 [History Confirmed 07/17/17] Ipratropium/Albuterol Sulfate [Duoneb] 3 ml INHALATION BID PRN 05/30/17 [History Confirmed 07/17/17] Acetaminophen [Tylenol Tablet] 650 mg PO Q6H PRN PRN tab 06/01/17 [Rx Confirmed 07/17/17] clopidogrel 75 mg tablet 75 mg PO DAILY #90 tab 06/08/17 [Rx Confirmed 07/17/17] lisinopril 10 mg tablet 10 mg PO DAILY #90 tab 06/08/17 [Rx Confirmed 07/17/17] metoprolol tartrate 25 mg tablet 12.5 mg PO BID #90 tab 08/03/17 [Rx] atorvastatin 40 mg tablet 40 mg PO .every other day #90 tab 08/28/17 [Rx] isosorbide mononitrate ER 30 mg tablet,extended release 24 hr 30 mg PO QAM #30 tab 08/31/17 [Rx] aspirin 81 mg tablet,delayed release 81 mg PO QDAY 09/05/17 [History] Assessment AND Plan Orders Orders: Nursing Note Pt here for heart cath instructions. Cath scheduled for Sunday at 11:30 am, pt to arrive at 10am. 09/05/17 4694 <Electronically signed by Pako Morocho MD> Date Pako Morocho MD Cosigner Signature: Date (if applicable) CC: Rox Jones Start: 08-08-2017 End: 08-08-2017 Dexa Bone Density Study Comments: See Note; NOTES: [facility] Imaging Services [address] [place] [address] Dexa Bone Density Study MR#: [id number] Acct: [id number] Name: TRINIDAD PARKER Rep #: [id number] : 1935 F 82 From: Grabiel Gallagher MD PCP: Rox Huerta DO Status: REG CLI Study: Dexa Bone Density Study Date of Exam: 08/08/17 Exam# [id number] Ordering Dr: Rox Huerta DO STUDY: DUAL ENERGY X-RAY ABSORPTIOMETRY / DXA REASON FOR EXAM: Female, 82 years old. The patient is postmenopausal. TECHNIQUE: Bone Mineral Density (BMD) measurements of lumbar spine and bilateral hips were obtained. COMPARISON: None. FINDINGS: Lumbar Spine (L1-L4): g/cm2 (0.962) / T-score (-1.7) / Z-score (0.1) Findings are suggestive of osteopenia with a moderate fracture risk. Increased thoracic kyphosis. Left Femur Total: g/cm2 (0.821) / T-score (-1.5) / Z-score (0.5) Left Femoral Neck: g/cm2 (0.714) / T-score (-2.3) / Z-score (-0.2) Right Femur Total: g/cm2 (0.776) / T-score (-1.8) / Z-score (0.2) Right Femoral Neck: g/cm2 (0.658) / T-score (-2.7) / Z-score (-0.6) BD/Dexa Bone Density Study IMPRESSION: The patient is considered osteoporotic as outlined below according to World Anoop Organization (WHO) criteria with a high fracture risk. Reference Information: The T-score is the number of standard deviations above or below the standard which is normal for young adults at their peak bone mineral density. The World Health Organization (WHO) interprets the T-scores as follows: Above -1 Normal bone density Between -1 and -2.5 Osteopenia Equal to / or below -2.5 Osteoporosis As a practical clinical guideline, osteopenia may be graded as follows: Mild -1 through -1.5 Moderate -1.6 through -2.0 Severe -2.1 through -2.4 The Z-score is the number of standard deviations above or below age-matched controls. A Z-score of less than -1.5 would be considered abnormal. References: 1. NIH Osteoporosis and Related Bone Diseases http://www.osteo.org 2. International Society for Clinical Densitometry http://www.iscd.org 3. National Osteoporosis Foundation http://www.nof.org Electronically Signed: Grabiel Gallagher MD at 12:33 EDT Tel [phone], Service support , CC: Rox Huerta DO Terminal Worker: Signed Rox Huerta Work Phone: Start: 08-01-2017 End: 08-01-2017 Pacemaker Check Comments: See Note; NOTES: [facility] [address] [place] [address]. [address] [place] [address] Pacemaker Check Date of Service: 07/17/17 1726 MR#: [id number] Acct: [id number] Name: TRINIDAD PARKER Rep #: [id number] : 1935 From: Nikki Tamayo Age/Sex: 81/F Location: [facility] [place] Status: Signed Comments Summary Comments: Dual Chamber Pacemaker Evaluation: See attached scanned object oriented programmer report. Interrogation shows 4 MS episodes, <1% total time and 1 VHR episode since 01/19/17. Stored e-gram for VHR 0n 05/28/17 shows what appears to be supraventricular tachycardia @ 190 bpm x 7 beats. Right pectoral pocket/incision w/o s/s of infection or erosion. Pt states she had DE approx 1 mos ago and had been tired. Starts Cardiac Rehab on 07/18/17. Presenting rhythm shows AV sequential paced @ 60 ppm. HOSPICE SOCIAL WORKER=1.4%. Estimate battery life 10 to 10.8 yrs. Device and lead measurements remain stable. No parameter changes made. Counters cleared. Next f/u appt scheduled for in 6 mos. Device Device Date Interviewed: 07/17/17 Follow-up Location: in office Interview Reason: routine follow up Customer Operations Associate: [employer] Name: Patricia AL Model: 2240 Serial #: [id number] Implant Date: 04/19/15 Year(s): 2 Implant Physician: Dr. Pako Morocho/[facility] Patient Characteristics Atrial Indication: sick sinus syndrome AV/Node Indication: Complete heart block Ejection fraction %: 60 to 64 (11/30/2011) By: Echo Underlying rhythm: Sinus bradycardia Pacemaker Dependent: No Device Characteristics Device: Dual Chamber Type: Pacemaker Remote Follow-Up: No Device Physical Exam Yes Incision well healed Leads Lead #1 Customer Operations Associate Lead 1: [employer] Model Lead 1: 1688T Serial# Lead 1: [id number] Date Implanted Lead 1: 01/07/07 Position Lead 1: RA Lead #2 Customer Operations Associate Lead 2: [employer] Model Lead 2: 1688T Serial# Lead 2: [id number] Date Implanted Lead 2: 01/07/07 Position Lead 2: RA Lead #3 Customer Operations Associate Lead 3: [employer] Model Lead 3: 1688T Serial# Lead 3: [id number] Date Implanted Lead 3: 01/07/07 Position Lead 3: RV Juan Jose Settings radycardia Mode and Timing Settings Pacemaker Mode: DDDR Base Rate: 60 bpm Max Track Rate: 125 bpm Max Sensor Rate: 115 bpm Maximum AV Delay: 275 msec Bradycardia Output and Sensitivity Settings Right Atrium: 0.5 msec, 2.0 volts, 0.5 mV sensitivity. Right Ventricle: 0.5 msec, Automatic0.875 volts, 2 mV sensitivity. Billing Codes PM Device Codes: PM Dev Prog Eval, Dual Assessment AND Plan Problems 1. Cardiac pacemaker in situ Z95.0 Pacemaker implant 12/18/06; Generator change 04/19/15 2. Complete heart block by electrocardiogram I44.2 07/31/17 1907 <Electronically signed by Nikki Tamayo > Date Nikki Tamayo 08/01/17 0739<Electronically signed by Pako Morocho MD> Cosigner Signature: Date (if applicable) Pako Morocho MD CC: Rox Huerta Start: 07-17-2017 End: 07-17-2017 Cardiology Visit Report Comments: See Note; NOTES: [facility] [address] [place] [address] OFFICE VISIT Date of Service: 07/17/17 MR#: [id number] Acct: [id number] Name: TRINIDAD PARKER Rep #: [id number] : 1935 Provider: Pako Morocho MD Age/Sex: 81/F Location: [facility] [place] Status: Signed HPI HPI Chief Complaint: Follow-up visit Details: The patient is a 81 year old F with past medical history consisting of coronary artery disease status post pacemaker placement who presented to the emergency room because of chest pain in May of this year. You do remember that her last catheterization was performed in 2011. At that time demonstrated ejection fraction of 65%, left anterior descending artery with 20-30% proximal stenosis, first diagonal vessel with 50% ostial stenosis, small septal software engineer kernel with 2030% stenosis in the circumflex artery 20% stenosis. Medical therapy was recommended. After she presented in May she underwent a repeat cardiac catheterization which demonstrated tandem 80% stenotic lesions in the circumflex artery, the left anterior descending artery had mild luminal irregularities in the right coronary artery had a 30% stenosis. She underwent angioplasty and stenting with a 2.5 24 mm Promus drug-eluting stent to the circumflex artery and has done well. She is denied any chest pain or shortness breath or paroxysmal nocturnal dyspnea or pedal edema she has had some muscle aches and mild discomfort at her groin site but otherwise she has been doing well. Intake Vital Signs07/17/17 Height 5 ft 5 in 07/17/17 Weight: 140 lb 07/17/17 Body Mass Index (BMI) 23.3 07/17/17 Blood Pressure 122/64 07/17/17 Blood Pressure Location Lt brachial Intake Visit Reasons: 6 M FU (pacer @ 11:30am) Oil Boiler Required: No Accompanied by: None Is patient in pain?: No Allergies metformin Allergy (Verified 07/17/17 10:53) Unknown Penicillins [PCN] Allergy (Verified 07/17/17 10:53) Unknown atorvastatin Adverse Reaction (Severe, Verified 07/17/17 10:53) elevated liver enzymes Medications Cholecalciferol (VIT D3) [Vitamin D3] 1,000 unit PO DAILY 04/16/15 [History Confirmed 07/17/17] Lansoprazole [Prevacid] 30 mg PO DAILY 04/16/15 [History Confirmed 07/17/17] Levothyroxine Sodium [Unithroid] 50 mcg PO DAILY 04/16/15 [History Confirmed 07/17/17] Ipratropium/Albuterol Respimat [Combivent Respimat Inhal [place]] 1 puff INHALATION BID 12/01/16 [History Confirmed 07/17/17] Ipratropium/Albuterol Sulfate [Duoneb] 3 ml INHALATION BID PRN 05/30/17 [History Confirmed 07/17/17] Acetaminophen [Tylenol Tablet] 650 mg PO Q6H PRN PRN tab 06/01/17 [Rx Confirmed 07/17/17] clopidogrel 75 mg tablet 75 mg PO DAILY #90 tab 06/08/17 [Rx Confirmed 07/17/17] lisinopril 10 mg tablet 10 mg PO DAILY #90 tab 06/08/17 [Rx Confirmed 07/17/17] metoprolol tartrate 25 mg tablet 12.5 mg PO BID #90 tab 06/08/17 [Rx Confirmed 07/17/17] Ejection fraction %: 60 to 64 (63% per echo 11/30/2011 at [facility]) [facility] Medical History HLD (hyperlipidemia) (Chronic) Complete heart block by electrocardiogram (Chronic) Atherosclerotic heart disease of [place] coronary artery without angina pectoris (Chronic) Nonrheumatic mitral (valve) prolapse (Chronic) Atherosclerosis of coronary artery of [place] heart without angina pectoris (Acute) NSTEMI (non-ST elevated myocardial infarction) (Acute) COPD (chronic obstructive pulmonary disease) (Chronic) Hypothyroidism (Chronic) Hypertension (Chronic) Dizziness and giddiness (Acute) Fatigue (Acute) Intermittent chest pain (Acute) Anxiety (Chronic) Diverticulosis (Chronic) GERD (gastroesophageal reflux disease) (Chronic) Surgical History Cardiac pacemaker in situ (Chronic) History of coronary artery stent placement (Acute 05/31/17) Family History Father Cancer lung cancer Heart disease Mother CVA (cerebral vascular accident) Hypertension Sister Hypertension Cancer lung cancer Son Diabetes Hypertension Myocardial infarction, Onset Age: 48 Social History Smoking Status: Former smoker alcohol intake: never substance use type: does not use caffeine: Yes Type: coffee Number of servings: 3 what type of physical activity do you participate in: none seatbelt use: always do you feel safe at home: Yes ROS Const Const: Positive for fatigue; negative for body ache, fever(s), chills, night sweats, daytime sleepiness, difficulty sleeping, weight gain, weight loss, increased appetite, poor appetite, anorexia, other, frequent falls, headache(s), weakness or excessive sweating Eyes Eyes: Negative for blind spots, loss of peripheral vision, transient loss of vision, change in vision, floaters, tunnel vision, other, blurry vision or double vision ENT ENT: Negative for hearing loss, tinnitus, Nosebleed/epistaxis, post nasal drip, bleeding gums, hoarseness, neck pain, dry mouth, other, balance problems, dizziness, headache(s), tongue swelling or lip swelling Cardio Chest Pain: No Palpitations: No Edema: None Muscle aches with walking: None Resp Respiratory: Positive for SOB with activity; negative for SOB at rest, SOB orthopnea\SOB lying down, Cough, Coughing up blood/hemoptysis, chest congestion, pain on inspiration, snoring, stridor, wheezing, crackles, paroxysmal nocturnal dyspnea or other GI GI: Positive for nausea; negative vomiting, heartburn, constipation, belching, bloating, cramping, vomiting blood/hematemesis, bright, red blood in stools, black,tarry stools, loose stools, Difficulty Swallowing or other : Negative for hematuria, frequent nighttime urination/ nocturia, erectile dysfunction or abnormal vaginal bleeding Musc Musc: Positive for muscle aches/ myalgia (Right lower extremity); negative for muscle weakness, joint pain or balance problems Skin Skin: Negative redness, non-healing lesions, unusual bruising, skin ulcer, wounds, jaundice, other or rash Neuro Neuro: Negative for dizziness, lightheadedness, near syncope, syncope, orthostatic symptoms, frequent falls, headache(s), weakness, confusion, memory loss, restless legs, blurry vision, double vision, vertigo, seizures, lack of coordination or other Ramses Hematologic/Lymphatic: Negative for easy bleeding, easy bruising, enlarged lymph nodes or other Endo Endo: Positive for fatigue; negative for cold intolerance, heat intolerance, excessive sweating, flushing, increased thirst/drinking, increased hunger, hair loss, hair growth or other Psych Psych: Negative for anxiety, depression, thoughts of harming anyone, thoughts of harming yourself, visual hallucinations, panic attacks or audible hallucinations Allergy Allergy/Immunology: Negative for throat swelling, Negative for tongue swelling, Negative for hives, Negative for rash, Negative for lip swelling Cardiology Exam Const Appearance: cooperative, healthy appearing, well developed, well groomed and no acute distress Nutritional Appearance: well nourished and average body habitus Orientation: alert, awake and oriented x3 Head Head: normal to inspection, normocephalic and atraumatic Ears: hearing grossly normal bilaterally and external ears normal Nose: external nose normal, nasal mucous membranes and turbinates normal, nares normal, septum normal, no nasal discharge Face and Sinus: face symmetric Mouth: oral mucosae normal, tongue normal, oropharynx normal and moist mucous membranes Teeth and gingiva: dentition normal Throat: posterior oropharynx normal, tonsils normal and uvula midline Eyes General: appearance normal, both eyes and all related structures Eyelids: eyelids normal Conjunctivae: conjunctivae normal Pupils: PERRL, normal by confrontation and accommodation normal EOM: EOM intact bilaterally Neck Neck: normal visual inspection, trachea midline and no JVD JVD: +5 Carotids: normal carotid upstroke and bounding pulses Chest Chest inspection: normal inspection of the chest, symmetric chest movement and normal respiratory effort Auscultation: Bilateral: Clear to Auscultation Cardio Palpation: normal PMI Rate: regular rate Rhythm: regular rhythm Heart sounds: S1 normal, S2 normal and normal, physiologic split S2; negative rub, gallop or murmur GI GI: normal to inspection, soft, no hepatosplenomegaly and bowel sounds present Neuro General: alert, awake, oriented x3, no focal sensory deficit, gait normal and moves all extremities Skin Skin: no rashes or lesions noted Extremities Pulses: Normal: Right Femoral Pulse, Left Femoral Pulse, Right Dorsalis Pedis Pulse, Left Dorsalis Pedis Pulse, Right Posterior Tibial Pulse, Left Posterior Tibial Pulse, Right Radial Pulse, Left Radial Pulse Lower Extremity Edema: None: Bilateral Musculoskel Musculoskeletal: No joint tenderness Psych Psychological: normal affect Assessment AND Plan 1. NSTEMI (non-ST elevated myocardial infarction) I21.4 Plan She does have coronary artery disease and status post Darlyn plasty and stenting with a drug-eluting stent to the circumflex artery. The plan will be for her to continue on the beta virgilio clopidogrel and to start cardiac rehabilitation. She can also exercise as tolerated. 2. Pure hypercholesterolemia E78.00; E78.0 Plan She does have a history of hyperlipidemia and was started on high intensity statin her recent lipid profile demonstrated a cluster 116 LDL 56 and HDL of 51. Unfortunately her liver function tests were elevated with an alkaline phosphatase of 245, ALT of 133 and AST of 115. Her atorvastatin has thus been discontinued and a lipid repeat liver function tests we obtained in a month. Orders Orders: 3. Cardiac pacemaker in situ Z95.0 Pacemaker implant 12/18/06; Generator change 04/19/15 Plan She does have a pacemaker in situ with a generator change in 2015. Her presenting rhythm at this time is AV sequentially paced rhythm with battery longevity of 10 years and she did have one episode of supraventricular tachyarrhythmia in May lasting 2 seconds. No other changes will be made. 4. Essential hypertension I10 Plan Her blood pressure appears to be under excellent control at this particular time and no other major changes will be advocated. Thank you for allowing me to participate in the care of your patient. Please don't hesitate to call if any issues arise Plan Detail Follow Up 6 Months (mmm) Coding Level of Care Code Off vis,est,level 4 Diagnoses NSTEMI (non-ST elevated myocardial infarction) I21.4 Pure hypercholesterolemia E78.00; E78.0 Hyperlipidemia type: pure hypercholesterolemia Cardiac pacemaker in situ Z95.0 Essential hypertension I10 Hypertension type: essential hypertension Coding Level of Care Code Off vis,est,level 4 Diagnoses NSTEMI (non-ST elevated myocardial infarction) I21.4 Pure hypercholesterolemia E78.00; E78.0 Hyperlipidemia type: pure hypercholesterolemia Cardiac pacemaker in situ Z95.0 Essential hypertension I10 Hypertension type: essential hypertension 07/17/17 1116 <Electronically signed by Pako Morocho MD> Date Pako Morocho MD Cosigner Signature: Date (if applicable) CC: Rox Jones Start: 06-28-2017 End: 06-28-2017 CR - History AND Physical Comments: See Note; NOTES: [facility] Cardiac Rehab [address] [place] [address] CR - History AND Physical MR#: [id number] Acct: [id number] Name: TRINIDAD PARKER Rep #: [id number] : 1935 81 From: Miles Romo BS, RVT PCP: Rox Huerta DO DOS: 06/27/17 CR - History AND Physical - General Arrival date:: 06/27/17 Arrival time:: 12:51 Date of Admission: 05/31/17 Referring Physician: Dr. Pako Morocho Primary Diagnosis: Z95.5, I25.10, I21.4 05/31/2017 - History of Present Cardiac Event Onset Date: Enter Onset Date of cardiac illnesses in Comment field below Angina:: Yes PTCA:: Yes Were there any complications?: hematoma - Medications Home Medications: Ambulatory Orders Medication Instructions Recorded Cholecalciferol (VIT D3) [Vitamin 1,000 unit PO DAILY 04/16/15 D3] Lansoprazole [Prevacid] 30 mg PO DAILY 04/16/15 Levothyroxine Sodium [Unithroid] 50 mcg PO DAILY 04/16/15 - Allergies Allergies/Adverse Reactions: Allergies metformin Allergy (Verified 06/08/17 13:43) Unknown Penicillins [PCN] Allergy (Verified 06/08/17 13:43) Unknown - Sleep Disorder Evaluation Hx of Sleep Apnea: No Do you snore loudly (louder than talking or can be heard through closed doors)?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 Power of Livestock Ranch Hand: Yes Living Will: Yes Advance Directives Information Provided: Yes Advance Directives on File: Yes DNR Order?:: No Past Medical History - Problems and Co-Morbidities Problems AND Co-Morbidities: Dyslipidemia, Hypertension, Sedentary Lifestyle, Anxiety - Past Medical Illness Past Medical Illness: Lung or Breathing Problems - asthma, COPD - Past Cardiac Illness Past Cardiac Illness: Other - pacer - Other Other: Vision/Eye Problems - Cardiology Procedures/Interventions Cardiology Procedures/Interventions: PCI w/Stenting, Heart Catheterization - Past Surgical History Surgical History: noncontributory - Family History Summary Family History: Diabetes: Offspring, Heart Disease: Paternal, Offspring, Stroke: Maternal, Cancer: Sibling, Paternal, Hypertension: Offspring, Maternal Review of Systems - Review of Systems Hints: Right click = Denies (Slash). Left click = Reports ([place]) Review of Present Symptoms: Reports: Shortness of Breath with Exertion - Asthma, COPD, Angina, Fatigue, Appetite - Normal, Sleep - Normal. Denies: Shortness of Breath at Rest, PVD, Operative Discomfort, Wound Healing, Dizziness/Lightheadedness, Heart Arrhythmia/Irregularities, Appetite - Special Diet, Sexual Changes Risk Factor Assessment - Chief Complaint Chief Complaint: CP - Pulse Pulse Rate: 66 - SPO2 99 Pulse Rhythm: Regular - Hypertension How long have you been treated?: 10 Blood Pressure Sitting - Left Arm: 150/50 - Stress Stress: Long-standing, Home/Family - Diabetes Nutrition Referral for Diabetes: No - Obesity Height: 1.65 m Weight:: 65.771 kg Weight in Pounds: 145.0 lbs Body Mass Index (BMI): 24.1 Nutritional Referral for Obesity: No - Physical Inactivity Physical Inactivity: Reg Exercise 30 min/day, Recreational activity - Risk Stratification Risk Guidelines: Moderate Risk: Risk Factor for Smoking, Risk Factor for Dyslipidemia, Risk Factor for Diabetes, Risk Factor for Obesity, Risk Factor for Hypertension, Risk Factor for Sedentary Lifestyle, Risk Factor for Depression - For Smoking Smoking Risk Guidelines: Smoking Low Risk: None or quit greater than 6 months ago. Smoking Moderate Risk: Smoker or quit 6 months or less ago. Smoking High Risk: Smoker - For Dyslipidemia Dyslipidemia Risk Guidelines: Low Risk: Moderate Risk: High Risk: 15-25% fat 25.1-29% fat >/= 30% fat. <7% sat fat 7-9% sat fat >9% sat fat. <150 mg chol 150-299 mg chol >/= 300 mg chol. LDL <100 LDL 100-129 LDL >/= 130. Chol/HDL ratio <5.0 Chol/HDL ratio 5.0-6.0 Chol/HDL ratio >6.0. Triglycerides <100 Triglycerides 100-149 Triglycerides >/= 150 - For Diabetes Mellitus Diabetes Risk Guidelines: Diabetes Low Risk: HgA1c <6.5% and/or FBG <120. Diabetes Moderate Risk: HgA1c 6.6-7.9% and/or FBG 120-180. Diabetes High Risk: HgA1c >/= 8% and/or FBG >180 - For Obesity/Overweight Obesity/Overweight Risk Guidelines: Obesity Low Risk: BMI <25.0. Obesity Moderate Risk: BMI 25-29.9. Obesity High Risk: BMI >/= 30.0 - For Hypertension Hypertension Risk Guidelines: Hypertension Low Risk: Systolic <120 and Diastolic <80. Hypertension Moderate Risk: Systolic 120-139 and Diastolic 80-89. Hypertension High Risk: Systolic >/= 140 and Diastolic >/= 90 - For Sedentary Lifestyle Sedentary Lifestyle Risk Guidelines: Sedentary Lifestyle Low Risk: >/= 1,500 kcal/week. Sedentary Lifestyle Moderate Risk: 700-1,499 kcal/week. Sedentary Lifestyle High Risk: < 700 kcal/week - For Depression Depression Risk Guidelines: Depression Low Risk: Not clinically depressed. Depression Moderate Risk: Mildly depressed. Depression High Risk: Clinically depressed - Family History Family History: Family History (Last Updated 06/08/17 @ 13:43 by Harvey Ortega) Father Cancer Heart disease Mother CVA (cerebral vascular accident) Hypertension Sister Hypertension Cancer Son Diabetes Hypertension Myocardial infarction, Onset Age: 48 Social History - Smoking History Smoking Status: Former smoker Years Smokin Packs Smoked per Day: 2 Hx Tobacco Use: Yes - reformed Hx Smoking Exposure: Yes - Alcohol Use Alcohol Usage: No - Substance Abuse Hx Substance Use: No - Occupation Occupation (List type of work in comments):: Retired - Hobbies, Recreation, Social Activities Hobbies: Farm, Sewing, Reading, Walking, None Recreational Activities: I am able to engage in all my recreational activities Marital Status - Status Marital Status: - Current Living Arrangements Living Environment:: Alone - Children How many children do you have?: 4 Do any of your children live nearby?: Yes - Safety Do you feel safe in your surroundings?: Yes - Assistance Do you need any assistance at home?: none 06/27/17 1353 <Electronically signed by Miles WONG RVT> Date Miles WONG RVT Outcome assessment reviewed. Exercise plan approved as documented. Treatment plan and goals support patient needs/abilities. Continue with current plan. I certify the patient demonstrates improvement and remains willing and capable of participation. the patient continues to benefit from cardiac rehab services/training. The patient may continue at current intensity, endurance and modality and progress per protocol. 06/28/17 0942 <Electronically signed by Pako Morocho MD> [place] Signature: Date Pako Morocho MD CC: Signed Rox Huerta Start: 06-08-2017 End: 06-08-2017 Cardiology Visit Report Comments: See Note; NOTES: [facility] [address] [place], [place] [address] OFFICE VISIT Date of Service: 06/08/17 MR#: [id number] Acct: [id number] Name: TRINIDAD PARKER Rep #: [id number] : 1935 Provider: Dori Wong Age/Sex: 81/F Location: [facility] Status: Signed HPI HPI Details: TRINIDAD PARKER, is a 81 F who presents to the office today for a hospital follow-up. She was admitted to [facility] on May 31 for chest and left arm discomfort. Second troponin was elevated at 0.19. She underwent a diagnostic heart catheterization which demonstrated significant disease of the circumflex where he underwent stenting for this. Post catheterization she was noted to have a hematoma and no bruit at time of discharge. Patient does have a history of coronary artery disease, pacemaker placement for complete heart block and hypertension. Pt sts that she does not have any further chest pain/left arm pain. She does not have any worsening SOB. She does not have orthopnea. She does not have any near syncope/syncope. She does occasionally have lightheadedness. She does not have any palpitations. She does not have any edema. Intake Vital Signs06/08/17 Height 5 ft 5 in 06/08/17 Weight: 145 lb 06/08/17 Body Mass Index (BMI) 24.1 06/08/17 Blood Pressure 120/62 06/08/17 Blood Pressure Location Lt brachial Intake Visit Reasons: CP/ Elevated troponin Oil Boiler Required: No Accompanied by: None Is patient in pain?: Yes (heart cath insertion site) Pain scale (1-10): 3 Allergies metformin Allergy (Verified 06/08/17 13:43) Unknown Penicillins [PCN] Allergy (Verified 06/08/17 13:43) Unknown Medications Cholecalciferol (VIT D3) [Vitamin D3] 1,000 unit PO DAILY 04/16/15 [History Confirmed 06/05/17] Lansoprazole [Prevacid] 30 mg PO DAILY 04/16/15 [History Confirmed 06/05/17] Levothyroxine Sodium [Unithroid] 50 mcg PO DAILY 04/16/15 [History Confirmed 06/05/17] Fluticasone/Salmeterol [Advair 250-50 Diskus] 1 ea IH BID 12/01/16 [History Confirmed 06/08/17] Ipratropium/Albuterol Respimat [Combivent Respimat Inhal [place]] 1 puff INHALATION BID 12/01/16 [History Confirmed 06/08/17] Ipratropium/Albuterol Sulfate [Duoneb] 3 ml INHALATION BID PRN 05/30/17 [History Confirmed 06/08/17] Acetaminophen [Tylenol Tablet] 650 mg PO Q6H PRN PRN tab 06/01/17 [Rx Confirmed 06/08/17] atorvastatin 80 mg tablet 80 mg PO QHS #90 tab 06/08/17 [Rx Confirmed 06/08/17] clopidogrel 75 mg tablet 75 mg PO DAILY #90 tab 06/08/17 [Rx Confirmed 06/08/17] lisinopril 10 mg tablet 10 mg PO DAILY #90 tab 06/08/17 [Rx Confirmed 06/08/17] metoprolol tartrate 25 mg tablet 12.5 mg PO BID #90 tab 06/08/17 [Rx Confirmed 06/08/17] PFSH Medical History HLD (hyperlipidemia) (Chronic) Complete heart block by electrocardiogram (Chronic) Atherosclerotic heart disease of [place] coronary artery without angina pectoris (Chronic) Nonrheumatic mitral (valve) prolapse (Chronic) Atherosclerosis of coronary artery of [place] heart without angina pectoris (Acute) Hypertension (Chronic) Dizziness and giddiness (Acute) Fatigue (Acute) Intermittent chest pain (Acute) Surgical History History of coronary artery stent placement (Acute 05/31/17) Status post placement of cardiac pacemaker (Chronic) Family History Father Cancer lung cancer Heart disease Mother CVA (cerebral vascular accident) Hypertension Sister Hypertension Cancer lung cancer Son Diabetes Hypertension Myocardial infarction, Onset Age: 48 Social History Smoking Status: Former smoker alcohol intake: never substance use type: does not use caffeine: Yes Type: coffee what type of physical activity do you participate in: none seatbelt use: always do you feel safe at home: Yes ROS Const Const: Negative for weakness, fatigue, fever(s) or headache(s) Eyes Eyes: Negative for blind spots, loss of peripheral vision or transient loss of vision ENT ENT: Negative for headache(s), dizziness, tinnitus or Nosebleed/epistaxis Cardio Chest Pain: No Palpitations: No Edema: None Muscle aches with walking: None Resp Respiratory: Negative for SOB with activity, SOB at rest, SOB orthopnea\SOB lying down or Cough GI GI: Negative nausea, vomiting, heartburn or vomiting blood/hematemesis : Negative for hematuria Musc Musc: Negative for muscle aches/ myalgia Neuro Neuro: Negative for weakness, headache(s), dizziness, near syncope, syncope, lightheadedness or orthostatic symptoms Ramses Hematologic/Lymphatic: Negative for easy bleeding Endo Endo: Negative for fatigue Cardiology Exam Const Appearance: cooperative, no acute distress and well developed Orientation: alert, awake and oriented x3 Head Head: normocephalic and atraumatic Mouth: moist mucous membranes Eyes General: appearance normal, both eyes and all related structures Conjunctivae: conjunctivae normal Pupils: PERRL EOM: EOM intact bilaterally Neck Neck: normal visual inspection, no lymphadenopathy and no JVD Carotids: Negative bruit Neck Mass: Negative Neck mass Chest Chest inspection: normal inspection of the chest, symmetric chest movement and Pacemaker/ICD Yes left pectoral incision Auscultation: Bilateral: Clear to Auscultation Cardio Palpation: normal PMI Rate: regular rate Rhythm: regular rhythm Heart sounds: S1 normal and S2 normal; negative rub, gallop or murmur GI GI: normal to inspection, soft, no hepatosplenomegaly and bowel sounds present; negative tender Neuro General: alert, awake, oriented x3, CN's II-XI intact bilaterally and moves all extremities Extremities Pulses: Normal: Right Femoral Pulse, Left Femoral Pulse (Hematoma noted at that is 3 x 2, no bruit noted, old ecchymosis noted), Right Posterior Tibial Pulse, Left Posterior Tibial Pulse, Right Radial Pulse, Left Radial Pulse Lower Extremity Edema: None: Bilateral Psych Psychological: normal affect Assessment AND Plan 1. Atherosclerosis of [place] coronary artery of [place] heart without angina pectoris I25.10 Plan - LOLIS Lee Patient has not had any episodes of chest discomfort or arm discomfort since she has had her stent done. She will continue with current aggressive medical management. She knows she needs to stay on her Plavix for at least one year. She was advised to start cardiac rehab. Patient Instructions - LOLIS Lee If you do not here back from cardiac rehab next week give them a call Orders Orders: 2. Essential hypertension I10 Plan - LOLIS Lee Blood pressure is well controlled on current medications, we do not recommend any changes at this time. 3. Dyslipidemia E78.5 Plan - LOLIS Lee Patient was recently started on statins. She is due to have her lipids checked again at the end of June. Will adjust accordingly. Patient Instructions - LOLIS Lee you need to have fasting labs done at the end of june. Orders Orders: 4. Status post placement of cardiac pacemaker Z95.0 Pacemaker implant 12/18/06; Generator change 04/19/15 Plan - LOLIS Lee Pacemaker is functioning appropriately. We will continue to monitor at routine scheduled pacemaker interrogations. 5. Hematoma and contusion T14.8XXA Plan - LOLIS Lee Patient's hematoma from her heart catheterization is improving. We will continue to monitor. She was advised of symptoms Plan Detail Other Orders Orders: Other Medications Refilled: Additional Comments - LOLIS Lee The above patient was discussed with Dr. Morocho, he agrees with plan of care. Thank you for allowing us to participate in patient's plan of care, if you have any questions please do not hesitate to call. This note was generated using a voice recognition system and there may be incorrect words, spelling or punctuation errors that were not noted when reviewing the office note prior to saving. Follow Up 06/08/17 (Keep as is) Coding Level of Care Code Off vis,est,level 3 Diagnoses Atherosclerosis of [place] coronary artery of [place] heart without angina pectoris I25.10 [place] vs. transplanted heart: [place] heart Essential hypertension I10 Hypertension type: essential hypertension Dyslipidemia E78.5 Status post placement of cardiac pacemaker Z95.0 Hematoma and contusion T14.8XXA Coding Level of Care Code Off vis,est,level 3 Diagnoses Atherosclerosis of [place] coronary artery of [place] heart without angina pectoris I25.10 [place] vs. transplanted heart: [place] heart Essential hypertension I10 Hypertension type: essential hypertension Dyslipidemia E78.5 Status post placement of cardiac pacemaker Z95.0 Hematoma and contusion T14.8XXA 06/08/17 1445 <Electronically signed by Dori DANIELLE> Date Dori DANIELLE 06/08/17 1700<Electronically signed by Pako Morocho MD> Cosigner Signature: Date (if applicable) Pako Morocho MD CC: Rox Jones Start: 06-08-2017 End: 06-23-2017 12 Lead EKG performed by [facility] Comments: See Note; NOTES: [facility] [address] [place] [address] 12 Lead EKG performed by [facility] 06/08/17 1345 MR#: [id number] Acct: [id number] Name: TRINIDAD PARKER Karl Rep #: [id number] : 1935 81 From: Dori DANIELLE Attending Dr: Dori Wogn Status: DEP AMB Ordering Dr: Dori Wong Date: 06/08/17 Location: [facility] Sex: F C Admitted: [facility]/12 Lead EKG performed by [facility] Electronic atrial pacemaker Low voltage in precordial leads. -Incomplete right undle branch block and left axis -anterior fascicular block. -Right atrial nlargement. ABNORMAL 06/09/17 1201 <Electronically signed by Dori DANIELLE> Date Dori DANIELLE CC: Rox Huerta DO Date Dictated: 06/08/171344 Date Transcribed: 06/08/171344 Terminal Worker: RIKKI Signed Rox Huerta Start: 05-31-2017 History of placement of stent for coronary artery disease History of coronary artery stent placement Dr. Jian Savage Work Phone: Comment on above: PCI-AFSHAN-LCx w/ 2.5 x 24 mm Synergy Stent 05/31/17 Start: 05-30-2017 End: 05-30-2017 Chest 1 View (Portable) Comments: See Note; NOTES: [facility] Imaging Services [address] [place] [address] Chest 1 View (Portable) MR#: [id number] Acct: [id number] Name: TRINIDAD PARKER Rep #: [id number] : 1935 F 81 From: Grabiel Gallagher MD PCP: Rox Huerta DO Status: PRE ER Study: Chest 1 View (Portable) Date of Exam: 05/30/17 Exam# [id number] Ordering Dr: Rudy Christian MD STUDY: X-RAY CHEST REASON FOR EXAM: Female, 81 years old. 3 day history of chest pain. TECHNIQUE: Single AP portable view of the chest. COMPARISON: Comparison is made with prior study dated March 22, 2017. FINDINGS: EKG electrodes are seen. Hyperinflation. There is no demonstrated pleural abnormality. Normal size heart. A right-sided dual-chamber pacemaker is seen. Normal mediastinum and nida. Normal visualized pulmonary arteries. There is atherosclerotic calcification of the aortic arch with tortuosity. There are degenerative changes of the visualized thoracic spine. Normal visualized ribs, clavicles, and shoulders. There is no demonstrated abnormality of the visualized soft tissue structures of the upper abdomen. RAD/Chest 1 View (Portable) IMPRESSION: Hyperinflation. The lungs are clear. Electronically Signed: Grabiel Gallagher MD at 14:55 EDT Tel [phone], Service support , CC: Rudy Christian MD; Rox Huerta DO Terminal Worker: Signed Rox Huerta Start: 03-22-2017 End: 03-22-2017 Chest PA and Lateral Comments: See Note; NOTES: [facility] Imaging Services [address] [place] [address] Chest PA and Lateral MR#: [id number] Acct: [id number] Name: TRINIDAD PARKER Rep #: [id number] : 1935 F 81 From: Laura Navarrete MD PCP: Rox Huerta DO Status: REG CLI Study: Chest PA and Lateral Date of Exam: 03/22/17 Exam# [id number] Ordering Dr: Rox Huerta DO STUDY: X-RAY CHEST REASON FOR EXAM: Female, 81 years old. Cough, congestion and achy feeling. TECHNIQUE: 2 views COMPARISON: Prior chest radiograph of December 02, 2016 FINDINGS: Lung barreto are well expanded to mildly hyperexpanded without new consolidation or focal atelectasis. Scattered calcified granuloma. Normal size heart. Dual-chamber pacemaker remains in good position. Normal visualized pulmonary arteries. There is atherosclerotic calcification of the aortic arch with tortuosity. There are diffuse degenerative changes of the visualized thoracic spine. There is degenerative osteoarthritis of the bilateral shoulders. There is no demonstrated abnormality of the visualized soft tissue structures of the upper abdomen. RAD/Chest PA and Lateral IMPRESSION: No acute cardiopulmonary findings or changes. Negative for new consolidation, focal atelectasis or a substantial pleural effusion. Stigmata of old granulomatous disease. Mild hyperexpansion. Dual chamber pacemaker remains in good position. Atherosclerosis. Electronically Signed: Laura Navarrete MD at 16:00 EST , Service support , CC: Rox Huerta DO Terminal Worker: Signed Rox Huerta Work Phone: Start: 03-08-2017 End: 03-08-2017 SCREENING MAMM (CAD), BILAT Comments: See Note; NOTES: [facility] Imaging Services [address] [place] [address] SCREENING MAMM (CAD), BILAT MR#: [id number] Acct: [id number] Name: TRINIDAD PARKER Rep #: [id number] : 1935 F 81 From: Grabiel Gallagher MD PCP: Rox Huerta DO Status: REG CLI Study: SCREENING MAMM (CAD), BILAT Date of Exam: 03/08/17 Exam# [id number] Ordering Dr: Rox Huerta DO MAMMOGRAPHY - BILATERAL SCREENING REASON FOR EXAM: Female, 81 years old. Routine annual screening examination. PERTINENT HISTORY: Sister with breast cancer. Remote left excisional breast biopsy. TECHNIQUE: Digital bilateral breast genevieve (3D mammographic acquisition) in the CC and MLO projections. 2-D mediolateral oblique (MLO) and craniocaudad (CC) views of both breasts were obtained. CAD: Full Field Digital Mammography with Computer Added Detection was performed. COMPARISON: Comparison is made with prior study dated October 05, 2013 and October 10, 2012. FINDINGS: Breast Composition: The breasts are heterogeneously dense, which may obscure small masses. There are no dominant masses or suspicious calcifications. Stable appearance of the bilateral axillary lymph nodes. A pacemaker battery pack is seen in the right axillary region. No other significant abnormalities are identified. There has been no significant change since the prior study. HPBI/SCREENING MAMM (CAD), BILAT IMPRESSION: Stable bilateral screening mammogram. Yearly follow-up mammogram recommended. (A) ASSESSMENT CATEGORY: BIRADS Category 2: Benign. A letter regarding these results will be sent to the patient by the facility within 30 days. Approximately 10% of breast cancers are not detected by mammography. A normal mammogram should not delay biopsy of a clinically suspicious abnormality. [id number] Electronically Signed: Grabiel Gallagher MD at 15:38 EST Tel [phone], Service support , CC: Rox Huerta DO Terminal Worker: Signed Rox Huerta Work Phone: Start: 01-29-2017 End: 01-29-2017 Stress Report Comments: See Note; NOTES: [facility] Cardiovascular Services [address] [address] MR#: [id number] Acct: [id number] Name: TRINIDAD PARKER Rep #: [id number] : 1935 81 From: Pako Morocho MD Primary Care: Rox Huerta DO Status: REG CLI Ordering Dr: Sex: F C Stress Test Report - Stress Test Report Stress Test Report: Pharmacologic myocardial perfusion stress test. 81-year-old lady with a history of chest pain. Stress protocol: Resting EKG demonstrates normal sinus rhythm with a rate of 77 bpm and incomplete right bundle branch block. Resting blood pressure is 132/82. 0.4 mg of regadenoson was infused per usual protocol followed by rapid intravenous saline flush injection. Continuous EKG monitoring was performed. The patient maintained sinus rhythm throughout the recording. At rest there were no ST or T-wave changes noted suggest abnormal flow reserve. At peak infusion no ST or T-wave changes were noted suggest abnormal flow reserve. No clinical angina was noted. The resting blood pressure is 132/82 with a peak blood pressure 140/82. Myocardial perfusion protocol: 11.7 mCi of technetium 99m sestamibi was injected at rest. 0.4 mg of regadenoson was infused per usual protocol. At peak infusion 33.1 mCi of technetium 99m sestamibi was injected. Stress images were obtained. Stress and resting images were reconstructed and compared in the short axis vertical long and horizontal long axis. Gated images were also obtained. Perfusion SPECT analysis:. Review of the stress images demonstrate normal uptake of tracer noted in all areas of the myocardium. The resting images similarly demonstrate normal uptake of tracer noted in all areas of the myocardium. No reversibility is noted suggest ischemia. No previous infarct is noted. Gated SPECT analysis. Gated ejection fraction is noted to be 84%. Conclusion: Normal pharmacologic myocardial perfusion stress test. 2. preserved ejection fraction. 01/29/171748 <Electronically signed by Pako Morocho MD> Date Pako Morocho MD CC: Pako Morocho MD; Rox Huerta DO Date Dictated: 01/29/171744 Date Transcribed: 01/29/171744 Terminal Worker: [place] Signed Rox Huerta Start: 01-19-2017 End: 01-19-2017 Inital Evaluation (1) - PT Comments: See Note; NOTES: [facility] [address] [place], [place] [address] Fax REHABILITATION SERVICES INITIAL EVALUATION MR#: [id number] Acct: [id number] Name: TRINIDAD PARKER Rep #: [id number] : 1935 81 From: Donna Pemberton MPT Referring Dr.: Patricia Roland DPM Status: REG RCR Insurance: MEDICARE PART A B FOR[facility]LY [facility] Patient's Visit Information TRINIDAD PARKER is a 81 year old F referred to Physical Therapy by Patricia Roland DPM with a diagnosis of L ganglion cysts removar. Date of Evaluation: 01/17/17 Physical Therapist: Donna Pemberton - Visit Plan Frequency: 2x /Week Duration: 6 Weeks Plan: 2X/ week for 6 weeks for L great toe ROM/PROM, L ankle ROM, L ankle strength, gait training, functional activities, balance activities with US with HEP. - Subjective Subjective: Pt had L foot surgery on Dec 08 where they took out 4 cysts out of her foot. She reports that she can not wear a shoe because it hurt too much and rubs on the incision. She feels that she limps when she walks and it does hurt when her foot is down and she is walking around. She wore a blue shoe until 2 weeks ago. She does not see the Dr under Feb 16, 2017. SHe can do stairs ok....walking is the worst. She has the cane but does not want to rely on that at all. She just started driving. She feels like someone is taking a vice and someone is squeezing it and letting it go. - Pain L foot pain Pain Intensity (Out of 10): 0 - Objective Gait: Walks with decrease stance time on the L LE and decrease toe push off on the L. Very hyper-sensitive to the touch over the incison. Ankle AROM L: DF neutral, PF 45 degrees. MMT: not tested due to increase pain. Tight gastroc on the B but much worse on the L. Very little toe movement (great big toe on the L with towel scrunches). Very tight PF of great toe with manual stretching - Goals Goal 1:: I HEP - Rehabilitation Potential Rehabilitation Potential: Good - Anticipated Interventions Patient/Client Instruction: Educate patient on: Condition, Plan of Care For the Purpose of:: To decrease pain, To decrease swelling/inflammation, To increase ROM, To improve nutrient delivery to tissue, To increase oxygenation perfusion, To improve muscle performance and motor function, To improve ability to perform ADL's, To increase tolerance to activity/condition/position, To improve gait and locomotor functions, To improve health of tissue, To decrease soft tissue restriction, To increase flexibility/ROM, To improve balance Therapeutic Exercise to Include: Strength training, Balance training, Postural training, Flexibilty training, Gait and locomotor training, Neuromotor development, Passive ROM, Active ROM For the Purpose of:: To decrease pain, To decrease swelling/inflammation, To increase ROM, To improve nutrient delivery to tissue, To improve muscle performance and motor function, To improve ability to perform ADL's, To increase tolerance to activity/condition/position, To decrease level of supervision to perform tasks, To improve gait and locomotor functions, To improve health of tissue, To decrease soft tissue restriction, To increase flexibility/ROM, To improve balance, To improve safety with gait Functional Training to Include: Gait training For the Purpose of:: To improve gait and locomotor functions Manual Therapy Techniques to Include: Passive ROM, Soft tissue mobilization For the Purpose of:: To decrease pain, To increase ROM, To improve nutrient delivery to tissue, To improve muscle performance and motor function, To improve ability to perform ADL's Ultrasound (thermal/non thermal): Yes For the Purpose of:: To decrease pain, To decrease swelling/inflammation, To increase ROM, To improve nutrient delivery to tissue, To improve muscle performance and motor function Thank you for the opportunity to evaluate your patient. For Medicare and Medicare HMO plans, please review the plan of care and approve it. It will need to be FAXED BACK to us at [phone] for Medicare purposes. Please let me know if there are questions or concerns regarding this plan of care. Physician Signature: ___Date: <Electronically signed by Donna Pemberton MPT> 01/19/17 1405 CC: Patricia Roland DPM; Rox Huerta DO Signed For Medicare only, by signing this I certify the plan of care. Physicians Signature Date Rox Huerta Start: 12-17-2016 End: 12-17-2016 Operative Report Comments: See Note; NOTES: [facility] Medical Records Department [address] [place] [address] Operative Report 12/08/16 1438 MR#: [id number] Acct: [id number] Name: TRINIDAD PARKER Rep #: [id number] : 1935 81 From: Patricia Roland DPM PCP: Rox Huerta DO Status: [facility] Location: [facility] [place] Problem List (1) Ganglion cyst of left foot Status: Chronic (2) Left foot pain Status: Chronic (3) Bone spur of foot Status: Chronic Report of Operation Date of Procedure: 12/08/16 - Surgeon: Patricia Roland DPM. Technology Coach: Jin Harris, PGY 2 Pre-Operative Diagnosis: left foot ganglion cyst. Post-Operative Diagnosis: left foot ganglion cyst. left foot dorsal bone spur Surgery/Procedure Performed:: excision of ganglion cyst with spur excision of left foot Description of Surgical Findings:: Hemostasis: Left well-padded pneumatic ankle tourniquet, 250 mmHg, 53 minutes Materials 2-0 and 3-0 Vicryl, 4-0 nylon Complications: none silverer: Chloe Benavidez Type of Anesthesia:: Local MAC - Preoperative injection: 13 mL of 1 :1 mixture of 1% lidocaine plain and Marcaine plain administered in anterior ankle block fashion postoperative injection: 8 cc of 1-1 mixture of same anesthetic administered in the local infiltrated manner to cyst excision site of left foot Specimen's removed: Soft tissue mass/cyst left dorsal foot (proximal tag) Estimated Blood Loss (mL): < 20 mL Description of Procedure: Indications: This 81-year-old female with significant past medical history of coronary artery disease disease including pacemaker placement, COPD, dyslipidemia, GERD, irritable bowel syndrome, hypothyroidism, hypertension, anxiety, and previous smoking habits (not current) has ongoing continuous left foot pain. She developed a soft mobile mass that was drained 3 times by her primary care physician and in home sales representative. The fluid from the cyst was tested and it was consistent with a ganglion cyst material. This is affecting her ability to complete her daily activities and wear shoes. She has also tried a compression dressing, pain medication, activity modification, cortisone injections, and rest. The cyst does measure clinically approximately 2.3 cm in diameter and is raised approximately a centimeter and half dorsal to the first and second metatarsal tarsal region. Her x-ray does not demonstrate any osseous destruction or acute injuries. There is soft tissue increased contour at the site of the cyst. Her neurovascular status is intact however she has new parasthesia development to the great toe that has progressed. She has failed conservative care and wants to proceed with surgery at this time. The possible benefits, risks, complications, risks, and anticipated healing time, and management were discussed in detail with the patient. No guarantees were made. Preoperative clearance was obtained by her primary care physician Dr. Huerta and she was risk stratified as low risk for this MAC and local anesthesia type procedure. Her preoperative diagnostic data was reviewed including EKG without acute cardiopulmonary changes compared to previous tests, chest xray consistent with COPD and without acute changes, CBC, and CMP. She understands that potential complications and risks may include the following but not limited to:, Pain, infection, swelling, need for additional surgery, recurrence of the cyst, infection, loss of sensation or numbness which is already present preoperatively, loss of limb, function, life. Her questions were answered. Informed surgical consent and surgical the surgical limb were signed. Procedure in detail: The patient was transported to the operating room via cart and placed on the operating table in supine position. Final verification of the patient, surgery, and limited designation was performed in the timeout procedure. MAC anesthesia was initiated preoperatively. Clindamycin was administered preoperatively and her penicillin allergy is noted. A well-padded pneumatic left ankle tourniquet was placed. The left lower extremity was prepped and draped in the usual aseptic manner. The tourniquet was inflated at this time. Surgery began as the following after an Esmarch bandage was used to exsanguinate the surgical limb: Attention was first directed to the dorsal medial aspect of the left foot in which a 5 cm curvilinear incision was made over the palpable 2.5 diameter mass with smaller proximal lateral satellite mobile mass ( 0.5 cm) that was palpable through the skin. Blunt dissection was performed down to immediately identify this cyst taking care to identify, protect, and retract all neurovascular structures at this point and throughout the remainder of the surgery. The mass was mobilized and appeared to be communicating with the sheath of the extensor hallucis longus tendon. There was a stalk that did travel even further distally down into the capsule of the first metatarsophalangeal joint in which the incision was extended distally. The stalk was identified and tied off with Vicryl suture and further cauterized with Bovie technique. The distal aspect of this cyst was released and there appeared to be multiple lobulated areas and this was followed proximally to the proximal lateral satellite cyst which an additional stalk was identified to be coming from the proximal midfoot area this was tied off with Vicryl and cauterized in a similar fashion to the distal stalks. The cyst was noted to be surrounding the entire sheath of the extensor hallucis longus tendon but not invading the actual tendon tissues. There were three main lobulations. Therefore the sheath was excised off of any adjacent tissue to prevent the chance of recurrence. Upon removal of this cyst it was tagged proximally and sent to pathology for further evaluation. There was no infection or other deep invasion into the adjacent tissues. There was no necrosis. After removal, the deeper midfoot was evaluated and there was a prominent spur noted to the dorsal proximal first metatarsal base area. A rongeur was used to smooth and remove this. Saline copious irrigation was performed. The tourniquet was deflated at this time and there was no pulsatile bleeding noted. Brisk capillary refill time is noted to all digits of the left foot. Deep closure was performed with 2-0 and 3-0 Vicryl. The skin was next reapproximated with 4-0 nylon utilizing horizontal and simple suture techniques. A postoperative injection was administered as noted above. A dressing consisting of Betadine soaked Adaptic, 4 x 4 gauze, Amol, and Inderjit wraps were applied. After procedure: The patient tolerated the procedure and anesthesia well and was transferred to the PACU with vital signs stable and vascular status intact to left lower extremity. She will be transferred home after continued PACU stability and pain control. She is to keep her dressing clean, dry, and intact until she follows up with Dr. Roland at the [facility] in one week. To ice and elevate for pain and inflammation management. She was also given postoperative pain medication and advised on proper and safe use. She already has a surgical shoe and was advised to weight-bear as tolerated taking care to avoid tight strap placement over the incision site. All postoperative orders were entered electronically including postoperative foot x-ray. Again the soft tissue mass was sent to pathology and these results are pending. Patricia Roland DPM [facility] [phone] 12/17/16 1140 <Electronically signed by Patricia Roland DPM> Date Patricia Roland DPM CC: Patricia Roland DPM; Rox Huerta DO Signed Rox Huerta Start: 12-08-2016 End: 12-08-2016 Foot 2 Views Comments: See Note; NOTES: [facility] Imaging Services [address] [place] [address] Foot 2 Views MR#: [id number] Acct: [id number] Name: TRINIDAD PARKER Rep #: [id number] : 1935 F 81 From: Grabiel Gallagher MD PCP: Rox Huerta DO Status: [facility] Study: Foot 2 Views Date of Exam: 12/08/16 Exam# [id number] Ordering Dr: Patricia Roland DPM STUDY: X-RAY - LEFT FOOT CLINICAL: Female, 81 years old. Postoperative spur reduction in the dorsal aspect of the foot. TECHNIQUE: AP and lateral. view(s) of the foot. COMPARISON: None. FINDINGS: There is an enthesophyte involving the posterior superior calcaneus at the site of insertion of the Achilles tendon. Small plantar spur. Normal visualized subtalar, talonavicular, calcaneocuboid, tarsal and tarsometatarsal articulations. Normal metatarsi. Normal metatarsophalangeal joint of the great toe. Normal tibial and fibular sesamoid bones. Normal interphalangeal joint of the great toe. Normal phalanges of the great toe. Normal second through fifth metatarsophalangeal joints. Normal interphalangeal joints and phalanges of the lesser toes. Soft tissue swelling. RAD/Foot 2 Views IMPRESSION: Postoperative soft tissue swelling. Electronically Signed: Grabiel Gallagher MD at 14:42 EDT Tel [phone], Service support , CC: Patricia Roland DPM; Rox Huerta DO Terminal Worker: Signed Rox Huerta Start: 12-08-2016 End: 12-08-2016 Discharge Instruction Comments: See Note; NOTES: [facility] Medical Records Department [address] [place] [address] Instructions for Home/Discharge Instructions 12/08/16 1057 MR#: [id number] Acct: [id number] Name: RENÉETRINIDAD M Rep #: [id number] : 1935 81 From: Patricia Roland DPM PCP: Rox Huerta DO Status: REG MAC Discharge Diet: No Restrictions Discharge Activity: May not drive while taking narcotic pain medications., - Weight Bearing Status: Weight bearing as tolerated - surgical shoe. limit excessive activity Keep extremity elevated above heart level: Left Leg Call your doctor if your incision/area has: Continuous Slow Oozing, Sudden Increased Bleeding, Increased Pain/ Swelling, Increased Redness, Foul Smelling Discharge, Swelling at the incision site Call your doctor if you observe: Fever of 101 or Higher, Coldness, Increased Pain, Numbness or Tingling, Change in Color, Inability to urinate, Inability to have a bowel movement, Using more than one pad per hour, Shortness of breath, Dizziness, Fainting spells, Swelling in the ankles, Chest pain, Prolonged hiccoughing, Increased palpitations (irregular heartbeat), Calf discomfort, Uncontrolled pain Cleanse incision/area with: Keep Dressing Clean AND Dry Allergies/Adverse Reactions: Allergies metformin Allergy (Verified 12/01/16 13:56) Unknown Penicillins [PCN] Allergy (Verified 12/01/16 13:56) Unknown Medications to take at Discharge Cholecalciferol (VIT D3) [Vitamin D] 1,000 unit PO DAILY 04/16/15 Lansoprazole [Prevacid] 30 mg PO DAILY 04/16/15 Levothyroxine Sodium [Unithroid] 50 mcg PO DAILY 04/16/15 Lisinopril [Zestril] 10 mg PO DAILY 04/16/15 Loratadine [Claritin] 10 mg PO PRN PRN 04/16/15 Fluticasone/Salmeterol [Advair 250-50 Diskus] 1 each IH BID 12/01/16 Ipratropium/Albuterol Respimat [Combivent Respimat Inhal [place]] 1 puff INHALATION BID 12/01/16 Primary Care Physician: Rox Huerta DO [Primary Care Provider] - Please Follow Up With: Patricia Roland When: 1 week at the [facility]; call [phone] if questions earlier Proposed Discharge Date: 12/08/16 12/08/16 1102 <Electronically signed by Patricia Roland DPM> Date Patricia Roland DPM CC: Rox Bradley HERNDON Rox Huerta Start: 12-02-2016 End: 12-02-2016 Chest PA and Lateral Comments: See Note; NOTES: [facility] Imaging Services [address] [place] [address] Chest PA and Lateral MR#: [id number] Acct: [id number] Name: TRINIDAD PARKER Rep #: [id number] : 1935 F 81 From: Milan Hernandez PCP: Rox Huerta DO Status: PRE SDC Study: Chest PA and Lateral Date of Exam: 12/02/16 Exam# [id number] Ordering Dr: Patricia Roland DPM STUDY: X-RAY CHEST REASON FOR EXAM: Female, 81 years old. Preop. TECHNIQUE: PA and lateral views of the chest. COMPARISON: 04/14/2015 FINDINGS: Right subclavian cardiac pacemaker is again seen in place. There is hyperinflation of the lungs consistent with chronic obstructive lung disease (COPD). A few scattered small calcified granulomas are seen in both lungs. Perihilar chronic mild interstitial thickening. There is no demonstrated pleural abnormality. Normal size heart. There are small calcified mediastinal lymph nodes. There is prominence of the pulmonary hilar arteries without peripheral pulmonary vascular congestion. Atherosclerotic calcification of the aortic arch. There is demineralization of the osseous structures. Increased thoracic kyphosis. There is no obvious acute bony process. Postsurgical lumbar spine. There is no demonstrated abnormality of the visualized soft tissue structures of the upper abdomen. RAD/Chest PA and Lateral IMPRESSION: 1. Stable-appearing chest. No acute cardiopulmonary abnormality noted. 2. COPD changes. Electronically Signed: Bobbi Hernandez MD at 9:00 EDT Tel , Service support , CC: Patricia Roland DPM; Rox Huerta DO Terminal Worker: Signed Rox Huerta Start: 09-05-2016 End: 09-05-2016 Inital Evaluation (1) - PT Comments: See Note; NOTES: [facility] [address] [place], [place] [address] Fax REHABILITATION SERVICES INITIAL EVALUATION MR#: [id number] Acct: [id number] Name: TRINIDAD PARKER Rep #: [id number] : 1935 81 From: Dieter Fan DPT, OCS, CSCS Referring Dr.: Rox Huerta DO Status: REG RCR Insurance: MEDICARE PART A B ANTHEM Patient's Visit Information TRINIDAD PARKER is a 81 year old F referred to Physical Therapy by Rox Huetra with a diagnosis of vertigo. Date of Evaluation: 09/04/16 Physical Therapist: Dieter Fan DPT, OC - Visit Plan Frequency: 1x/Week Duration: 4-6 Weeks Plan: weekly as needed x 4-6 for monitor positional and treat with adaptation as helpful. - Subjective Subjective: Gets this every spring. This is the worst year. Room spinning is how it started. Woke up two weeks ago Sunday and the room was spinning when she opened her eyes. Had to hold on to get to bathroom. Same thing happened two hours later. Much better now as nothing is spinning but does not feel like she is walking right or seeing right. Slightly upset stomach. This is an intermittent feeling that is improving. Sleep is OK. Tired all the time. Avoids everythin and is sitting alot. Feels OK sitting and doing nothing. No falls. L ear feels full. Not employed but usually never ists, cuts grass, weed shop, visit kids, holiness. - Objective Walks back to [facility] room I, transfers are I chair and bed. C/S AROM WFL and no pain. - B hallpike hipolito, - roll test. No dizzyness or nystagmus. Balance is good. Oculomotor: no nystagmus with gaze or head shake. Pursuit, saccades and VOR are normal without symptoms. VOR walking is challenging and blurry. - B head thrust. - Balance Scores Functional Gait Assessment Score: 26 % Disability: 13.3400 - Goals Goal 1:: abolish dizzy feeling without meds Goal Time Frame: 2-4 Weeks Goal 2:: Back to normal activities without symptoms. Goal Time Frame: 2-4 Weeks - Rehabilitation Potential Physical Therapy Diagnosis: improving vertigo likely unilateral vestibulopathy. Rehabilitation Potential: Fair - Anticipated Interventions Patient/Client Instruction: Educate patient on: Condition, Plan of Care Other: to diminish dizzyness. Comment: adaptation exercises and positional monitor. For the Purpose of:: To improve ability of physical actions for home/community/work/leisure Thank you for the opportunity to evaluate your patient. For Medicare and Medicare HMO plans, please review the plan of care and approve it. It will need to be FAXED BACK to us at [phone] for Medicare purposes. Please let me know if there are questions or concerns regarding this plan of care. Physician Signature: ___Date: <Electronically signed by Dieter Fan DPT, [facility], [facility]> 09/05/16 0923 CC: Rox Huerta DO EBG Signed For Medicare only, by signing this I certify the plan of care. Physicians Signature Date Rox Huerta Start: 04-20-2015 End: 04-20-2015 Operative Report Comments: See Note; NOTES: [facility] Medical Records Department [address] [place] [address] Operative Report MR#: [id number] Acct: [id number] Name: TRINIDAD PARKER Rep #: [id number] : 1935 79 From: Pako Morocho MD PCP: Rox Huerta DO Status: REG CLI DATE OF SERVICE: PROCEDURE: Pacemaker generator change out. INDICATIONS: End-of-life replacement index. DESCRIPTION OF PROCEDURE: After informed consent was obtained, the patient was brought to the cardiac catheterization lab in the postabsorptive nonsedated state. Xylocaine 1% was used to anesthetize over the right infraclavicular area. The patient had received intravenous vancomycin. Using sharp and blunt dissection, the old pacemaker generator was explanted. The leads were sequentially tested. P waves were tested at 3.0 millivolts with impedance of 468 ohms and threshold of 0.5 volts at 0.5 milliseconds. R waves tested at 5.7 millivolts, impedance of 555 ohms and threshold of 0.6 volts at 0.5 milliseconds. The new pacemaker generator was then connected. It was a [employer], model #[id number], serial #[id number]. The leads were inserted. The set screws were tightened and the entire device placed into the pocket after bacitracin solution was used in the pocket. The pocket was then closed in 2 layers with 3-0 and 4-0 Vicryl. Steri-Strips were applied. The patient tolerated the procedure well. Sponge, instrument and needle counts were all normal. Pako Morocho MD T: NTS JOB: [id number] 04/20/15 1729 <Electronically signed by Pako Morocho MD> Date Pako Morocho MD Cosigner Signature (If Indicated): Date CC: Pako Morocho MD; Rox Huerta DO Date Dictated: 04/19/15 1359 Date Transcribed: 04/19/151358 Terminal Worker: Signed Rox Huerta Start: 12-25-2014 End: 12-25-2014 PT Discharge Summary Comments: See Note; NOTES: [facility] [address] [place] [address] Fax REHABILITATION SERVICES DISCHARGE SUMMARY MR#: [id number] Acct: [id number] Name: TRINIDAD PARKER Rep #: [id number] : 1935 79 From: Harika Fraire Referring Dr.: Rox Huerta DO Status: PRE RCR Eval Date: Discharge Date: DATE OF SERVICE: This patient was referred to physical therapy by Dr. Rox Huerta with a diagnosis of low back pain with radiculopathy. She has been seen in our clinic times a total of 3 visits. Her physical therapy has mainly consisted of therapeutic exercise for trunk and lower extremity and postural strengthening. She then canceled all remaining appointments stating that she was going to be seeing an oncologist. I am discharging her chart at this time. Harika Fraire, PT T: NTS JOB: [id number] <Electronically signed by Harika Fraire > 12/25/14 1351 CC: Rox Huerta DO Signed Rox Huerta Start: 12-09-2014 End: 12-10-2014 Abdomen/Pelvis WITH Contrast Comments: See Note; NOTES: [facility] Imaging Services [address] [place] [address] CAT Scan Report MR#: [id number] Acct: [id number] Name: TRINIDAD PARKER Rep #: [id number] : 1935 F 79 From: Leah Lua MD PCP: Rox Huerta DO Status: REG CLI Study: Abdomen/Pelvis WITH Contrast Date of Exam: 12/09/14 Exam# [id number] Ordering Dr: Roney Reyna MD STUDY: CT ABDOMEN AND PELVIS WITH CONTRAST REASON FOR EXAM: Female, 79 years old. Back and bone pain, bilateral leg numbness, difficult to stand. Controlled hypertension. Borderline diabetes. History of pacemaker and COPD. RADIATION DOSAGE (If Supplied By Facility): CTDIvol = ( 25.31 ) mGy, DLP = ( 3549.64 ) mGycm TECHNIQUE: Transaxial 3.75 mm enhanced and delayed images were obtained from the dome of the diaphragm to the symphysis pubis with oral contrast. 100 ml of Isovue 300 contrast was administered. Sagittal and coronal images were reconstructed. COMPARISON: CT chest 03/22/2005 FINDINGS: Multiple calcified nodules in the lung bases, mild interstitial prominence and hyperinflation. Mild cardiac enlargement without pericardial effusion. Mild streak artifact caused by right atrial and ventricular pacemaker leads. There is decreased attenuation of the liver consistent with steatosis. Normal gallbladder and extrahepatic biliary system. There are multiple benign calcified granulomata of the spleen. Normal pancreas. Normal bilateral adrenal glands. Normal right kidney. Normal left kidney. There is no obstructive uropathy, obstructive renal or ureteral calculi. Normal visualized stomach. Normal small intestine. Normal colon. There is non-visualization of the appendix. There is diffuse atherosclerotic calcification of the abdominal aorta, without a demonstrated aneurysm. Normal inferior vena cava. Normal retroperitoneum. Normal urinary bladder. The uterus is not visualized. Normal abdominal wall. There are diffuse degenerative and discogenic changes of the visualized lumbar spine and sacroiliac joints. There is demineralization of osseous structures. There is heterogeneous trabecular pattern in the left ilium and L4 vertebral body. Retrolisthesis L2 on L3. IMPRESSION: There is no acute abdomen and pelvic pathology. There is old granulomatous disease. Hepatic steatosis. Degenerative and discogenic disease. Heterogeneous trabecular pattern with osteopenia. A neoplastic etiology is not excluded such as multiple myeloma. Arterial sclerosis. Electronically Signed: Leah Lua MD at 6:05 EDT , Service support [phone], CC: Rox Reyna Terminal Worker: Signed Rox Huerta Start: 12-09-2014 End: 12-10-2014 Chest WITH Contrast Comments: See Note; NOTES: [facility] [facility] [address] [place] [address] CAT Scan Report MR#: [id number] Acct: [id number] Name: TRINIDAD PARKER Rep #: [id number] : 1935 F 79 From: Leah Lua MD PCP: Rox Huerta DO Status: REG CLI Study: Chest WITH Contrast Date of Exam: 12/09/14 Exam# [id number] Ordering Dr: Roney Reyna MD STUDY: CT CHEST WITH CONTRAST REASON FOR EXAM: Female, 79 years old. Back and bone pain, bilateral leg numbness, difficult to stand. Controlled hypertension. Borderline diabetes. History of pacemaker and COPD. RADIATION DOSAGE (If Supplied By Facility): CTDIvol = ( 25.31 ) mGy, DLP = ( 3549.64 ) mGycm TECHNIQUE: High resolution 2.5 mm transaxial imaging was performed following intravenous administration of 100ml ml of Isovue 300 contrast material. Multiplanar coronal and sagittal images were reformatted. COMPARISON: CT chest 03/22/2005 axial images. FINDINGS: There is moderate emphysema with bilateral too numerous to count stable the largest in the posterior right lower lobe measuring 0.9 x 0.9 cm and in the left lower lobe 0.9 x 1 cm. Calcified and noncalcified parenchymal nodules There is no demonstrated pleural abnormality. There is mild cardiac enlargement. There is no pericardial effusion. There is a multilead permanent pacemaker. There are calcified mediastinal and bilateral hilar lymph nodes. Normal enhanced pulmonary arteries. There is atherosclerotic tortuosity of the aortic arch and descending thoracic aorta. There are multi-level degenerative changes of the thoracic spine. There is a small hiatal hernia and multiple splenic granulomata. IMPRESSION: Moderate emphysema, slightly progressed since previous examination. There is old granulomatous disease. No pulmonary edema, congestive heart failure or confluent pneumonia. Interval placement of right atrial and ventricular dual pacemaker, mild cardiac enlargement. Electronically Signed: Leah Lua MD at 5:51 EDT , Service support [phone], CC: Rox Huerta DO; Roney Reyna Terminal Worker: Signed Rox Huerta Start: 11-17-2014 End: 11-17-2014 Spine Lumbar without Contrast Comments: See Note; NOTES: [facility] Imaging Services [address] [place] [address] CAT Scan Report MR#: [id number] Acct: [id number] Name: TRINIDAD PARKER Rep #: [id number] : 1935 F 79 From: Bib Moses MD PCP: Rox Huerta DO Status: REG CLI Study: Spine Lumbar without Contrast Date of Exam: 11/17/14 Exam# [id number] Ordering Dr: Rox Huerta DO STUDY: CT LUMBAR SPINE WITHOUT CONTRAST REASON FOR EXAM: Female, 79 years old. Low back pain. RADIATION DOSAGE (If Supplied By Facility): CTDIvol = ( 29.03 ) mGy, DLP = ( 758.17 ) mGycm TECHNIQUE: The patient was scanned in a multi detector CT scanner. High resolution transaxial imaging was performed. Images were obtained from T12-L1 to S1. Sagittal and coronal images were reconstructed. COMPARISON: 5 views of the lumbar spine July 29, 2013. FINDINGS: Normal lumbar lordosis. There is a mild levoscoliosis of the lumbar spine. There is 4-5 mm retrolistheses of L2 on L3. There is spotty demineralization of the vertebrae of the lumbar spine. Diffuse increased lucency of the L4 vertebra with thickened trabeculae suggest vertebral hemangioma. There is no demonstrated compression deformity or fracture of the visualized lumbar vertebrae. L1-2: Anterolateral endplate spondylosis greater on the left. Borderline disc height narrowing with left anterolateral protrusion and mild vacuum phenomenon. Mild degenerative arthroses of the bilateral facet joints. Normal central canal and bilateral lateral recesses. Normal bilateral intervertebral neural foramina. L2-3: Anterolateral endplate spondylosis and sclerosis, greater on the right. Moderate to severe disc narrowing, greater on the right, With vacuum phenomena. There is a right posterolateral disc bulge. There is widening of the bilateral facet joints, accompanied by mild to moderate hypertrophic degenerative change, greater on the right. Mild narrowing of the central canal as well as bone and disc impingement on the bilateral lateral recesses. There is moderate encroachment on the bilateral intervertebral neural foramina with probable irritation/impingement on the nerve roots after they exit the foramina. L3-4: Anterior endplate spondylosis. Mild disc height narrowing with annular bulge. Mild degenerative change of the bilateral facet joints as well as calcification of the ligamentum flavum. There is disc effacement of the central canal and bilateral lateral recesses. Mild narrowing of the bilateral intervertebral neural foramina. L4-5: Anterior endplate spurring. Mild to moderate disc narrowing with annular bulge. Moderately severe degenerative arthroses of the bilateral facet joints, as well as calcification of the ligamentum flavum. Mild narrowing of the central canal and bilateral lateral recesses. Mild narrowing of the bilateral intervertebral neural foramina. L5-S1: Mild endplate spurring. Normal disc height with an annular bulge and marginal disc calcifications. Moderate degenerative arthrosis of the. Normal central canal and bilateral lateral recesses. Normal bilateral intervertebral neural foramina. Normal visualized paraspinous soft tissue structures. There is diffuse aortoiliac atherosclerotic calcification. IMPRESSION: 1. Multilevel degenerative changes, as described above, including a 4-5 mm L2-3 retrolisthesis. 2. Probable hemangioma involvement of the L4 vertebra. 3. Diffuse aortoiliac atherosclerotic calcification. Electronically Signed: Amish Moses MD at 18:52 EDT , Service support [phone], CC: Rox Huerta DO Terminal Worker: Signed Rox Huerta Work Phone: Start: 11-17-2014 End: 11-17-2014 Inital Evaluation - PT Comments: See Note; NOTES: [facility] [address] [place] [address]. [address] [place] [address] Fax REHABILITATION SERVICES INITIAL EVALUATION MR#: [id number] Acct: [id number] Name: TRINIDAD PARKER Rep #: [id number] : 1935 79 From: Harika Fraire Referring : Rox Huerta DO Status: DIS RCR Insurance: MEDICARE PART A B Eval Date: DATE OF SERVICE: 11/16/2014 SUBJECTIVE: This patient was referred to physical therapy by Dr. Huerta with low back pain with radiculopathy. She presents to physical therapy with complaint of constant bilateral low back pain ranging 5-8/10 and intermittent bilateral lower extremity pain, numbness, tingling and weakness. She reports that her on July 27, 2014, and therefore she has been doing more than normal for the last 6-8 months. About 2 weeks ago, she was sitting on the couch when her left leg went numb, then her right also. She could not get up. Currently, her symptoms are unchanging. Bending, rising from sitting, standing, walking, and being on the move increases her pain. She reports decreased pain in sitting, lying and with medication. The pain is disturbing her sleep. She has a prior history of low back pain that started more than 10 years ago. She had a work injury quite a while ago that took her off work for 3 months and got better with physical therapy. She then had another injury lifting at a [employer], which was helped again by physical therapy. Currently, straining increases her pain. She is unable to walk normally, but is not using any assistive devices. She has bowel and bladder incontinence that started about [address] Huerta is aware of it. I right away cautioned her to make sure that she keep Dr. Huerta up-to-date on the symptoms. She is currently taking prednisone, muscle relaxer and Meloxicam, which she feels are helpful. PAST MEDICAL HISTORY: Significant for having a PACEMAKER, COPD, emphysema, allergies and high blood pressure. She denies having cancer, diabetes or history of stroke; however, she did have a heart attack. She has a CAT scan of her lumbar spine pending tomorrow. She denies having been in any other accidents or any unexplained weight loss. OBJECTIVE: This patient ambulates independently into physical therapy with an antalgic gait pattern, but no assistive devices. Her sitting posture is poor. Her standing posture is poor. She has a reduced lumbar lordosis and increased kyphosis. Bilateral lower extremity strength: Right hip flexion 4-/5, knee extension 4-/5, knee flexion 4/5, ankle dorsiflexion 5/5, extensor hallucis longus 5/5. Left hip flexion 4/5, knee extension 5/5, knee flexion 5/5, ankle dorsiflexion 5/5 and extensor hallucis longus 5/5. Bilateral lower extremity reflexes are 1/2. Bilateral lower extremity light touch sensation appears to be intact and symmetrical. Bilateral lower extremity dural signs are negative. The patient has major lumbar movement loss in all planes except for flexion, which is moderate. She has complaint of increased pain with lumbar range of motion testing in all planes. All transfers are slow and antalgic. She has poor core strength. She has tenderness of the lumbar spine with light palpation, but not tender in the sacrum or thoracic regions. TREATMENT: The patient was seen today for instruction in use of lumbar support in sitting, avoidance of bending, lifting and twisting. ASSESSMENT: This patient is a 79-year-old female with recent onset of increased low back pain and bilateral lower extremity numbness. Oswestry equals 64 percent, [id number], [id number]. GOALS: 1. Decrease complaint of low back pain. 2. Decrease complaint of bilateral lower extremity symptoms. 3. Improve bending, rising from sitting, standing, walking and sleep function. 4. Instruct in prophylaxis. PLAN: We plan to see this patient 2-3 times a week x4-6 weeks (for 10 visits) for instruction in proper posture control/body mechanics, aquatic therapy for pain relief, and general mobility and core strengthening as tolerated to help meet the above goals. She was agreeable with this plan of care. Harika Fraire, PT T: CRUZ JOB: [id number] <Electronically signed by Harika Fraire > 11/17/14 1426 CC: Signed For Medicare only, by signing this I certify the plan of care. Physicians Signature Date Rox Huerta Start: 10-13-2013 End: 10-13-2013 Bilat Scrn Digital & CAD Comments: See Note; NOTES: [facility] [address] [place] [address] Breast Imaging Report MR#: [id number] Acct: [id number] Name: TRINIDAD PARKER Rep #: [id number] : 1935 F 78 From: Grabiel Gallagher MD PCP: Rox Huerta DO Status: REG CLI Exam# [id number] Ordering Dr: Rox Huerta DO MAMMOGRAPHY - BILATERAL SCREENING REASON FOR EXAM: Female, 78 years old. Routine annual screening examination. PERTINENT HISTORY: Breast tenderness. TECHNIQUE: Digital examination. Mediolateral oblique (MLO) and craniocaudad (CC) views of both breasts were obtained. CAD: CAD was performed on this study. COMPARISON: Comparison is made with prior study dated October 10, 2012 and prior outside examination dated January 31, 2011. FINDINGS: The breast composition is heterogeneously dense, ranging from 51% to 75% of the total breast volume, which may obscure small masses. There are no dominant masses or suspicious calcifications. Stable bilateral axillary lymph nodes. No other significant abnormalities are identified. There has been no significant change since the prior study. IMPRESSION: Stable bilateral screening mammogram. Yearly follow-up recommended. (A) ASSESSMENT CATEGORY: BIRADS Category 2: Benign finding(s). A letter regarding these results will be sent to the patient by the facility within 30 days. Approximately 10% of breast cancers are not detected by mammography. A normal mammogram should not delay biopsy of a clinically suspicious abnormality. Electronically Signed: Grabiel Gallagher MD at 10:18 EDT Tel [phone], Service support [phone], CC: Rox Huerta DO Terminal Worker: Signed Rox Bradley Work Phone: Start: 07-29-2013 End: 07-29-2013 L/S Spine Min 4 Views Comments: See Note; NOTES: [facility] Services [address] [place] [address] Radiology Report MR#: [id number] Acct: [id number] Name: TRINIDAD PARKER Rep #: [id number] : 1935 F 78 From: Steven Alcantara MD PCP: oRx Huerta DO Status: REG CLI Study: L/S Spine Min 4 Views Date of Exam: 07/29/13 Exam# [id number] Ordering Dr: Libia Lama STUDY: X-RAY - LUMBAR SPINE REASON FOR EXAM: Female, 78 years old. Pain. Injury. TECHNIQUE: 5 view(s) of the lumbar spine were obtained. COMPARISON: None FINDINGS: Normal lumbar lordosis. There is a levoscoliosis of the lumbar spine. 7 mm of anterolisthesis of L3 relative to L2 is seen. There is otherwise normal curvature and alignment. There is moderate degenerative disc disease at L2-L3 with chronic endplate changes. No compression fractures are seen. There is atherosclerotic calcification of the abdominal aorta without a demonstrated aneurysm. IMPRESSION: No definite acute abnormality. Prominent degenerative changes at L2-L3. Electronically Signed: Steven Alcantara MD at 16:09 EDT Tel , Service support [phone], RAD/L/S Spine Min 4 Views IMPRESSION: No definite acute abnormality. Prominent degenerative changes at L2-L3. Electronically Signed: Steven Alcantara MD at 16:09 EDT Tel , Service support [phone], CC: Libia Lama; Rox Huerta DO Terminal Worker: Signed Libia Lama Work Phone: Start: 12-20-2012 End: 12-25-2012 Hepatobilliary Imaging Comments: See Note; NOTES: [facility] Imaging Services [address] [place] [address] Nuclear Medicine Report MR#: [id number] Acct: [id number] Name: TRINIDAD PARKER Rep #: [id number] : 1935 F 77 From: Yonis Colmenares PCP: Rox Huerta DO Status: REG CLI Study: Hepatobilliary Imaging Date of Exam: 12/20/12 Exam# [id number] Ordering Dr: Rox Huerta DO CLINICAL: 77-year-old female with reported history of right upper quadrant abdominal pain. RADIONUCLIDE HEPATOBILIARY SCINTIGRAPHY COMPARISON: Abdominal ultrasound report 12/16/12 FINDINGS: Following the intravenous administration of 5.2 mCi of Tc Mebrofenin, hepatobiliary images reveal: 1. Relatively prompt and homogeneous radiopharmaceutical concentration is noted by a normal sized liver. No parenchymal defects are identified. 2. Gallbladder activity is identified at 30 minutes post radiopharmaceutical administration. 3. Small intestinal tract is not visualized during 60 minutes of pre-fatty meal sequential imaging acquisition. Small bowel is observed following fatty meal provision. 4. Washout of the radiopharmaceutical by the hepatic parenchyma appears qualitatively delayed. The patient was administered a fatty meal (8 ounces Ensure). The post fatty meal consumption gallbladder ejection fraction calculated at 60 minutes was noted to be 86.2 % (normal greater than 30%). IMPRESSION: 1. A gallbladder ejection fraction calculated to greater than 30% following the administration of a consumed fatty meal makes the probability of functional hepatobiliary disease (gallbladder and/or sphincter of Oddi dyskinesia) and/or organic hepatobiliary disease (chronic acalculous cholecystitis and/or cystic duct syndrome) to be low. (Juan, J Nucl Med 43: 1603, 2002). 2. 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 Signed: Yonis Colmenares M.D. December 21, 2012 at 10:54:18 AM EDT [phone] Electronically Signed RB/RB If you are the referring physician and would like to consult with the radiologist who provided this interpretation, please contact Yonis Colmenares M.D. at [phone]. If this radiologist is unavailable, you will be directed to another radiologist to assist. If you are a patient with a question regarding this report, please contact your referring physician directly. Professional Interpretation Provided By: [employer], Phone , CLINICAL: 77-year-old female with reported history of right upper quadrant abdominal pain. RADIONUCLIDE HEPATOBILIARY SCINTIGRAPHY COMPARISON: Abdominal ultrasound report 12/16/12 FINDINGS: Following the intravenous administration of 5.2 mCi of Tc Mebrofenin, hepatobiliary images reveal: 1. Relatively prompt and homogeneous radiopharmaceutical concentration is noted by a normal sized liver. No parenchymal defects are identified. 2. Gallbladder activity is identified at 30 minutes post radiopharmaceutical administration. 3. Small intestinal tract is not visualized during 60 minutes of pre-fatty meal sequential imaging acquisition. Small bowel is observed following fatty meal provision. 4. Washout of the radiopharmaceutical by the hepatic parenchyma appears qualitatively delayed. The patient was administered a fatty meal (8 ounces Ensure). The post fatty meal consumption gallbladder ejection fraction calculated at 60 minutes was noted to be 86.2 % (normal greater than 30%). IMPRESSION: 1. A gallbladder ejection fraction calculated to greater than 30% following the administration of a consumed fatty meal makes the probability of functional hepatobiliary disease (gallbladder and/or sphincter of Oddi dyskinesia) and/or organic hepatobiliary disease (chronic acalculous cholecystitis and/or cystic duct syndrome) to be low. (Alfreda and Nnamdi, J Nucl Med 43: 1603, 2002). 2. 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 Signed: Yonis Colmenares M.D. December 21, 2012 at 10:54:58 AM EDT [phone] Electronically Signed RB/RB If you are the referring physician and would like to consult with the radiologist who provided this interpretation, please contact Yonis Colmenares M.D. at [phone]. If this radiologist is unavailable, you will be directed to another radiologist to assist. If you are a patient with a question regarding this report, please contact your referring physician directly. Professional Interpretation Provided By: [employer], Phone , These documents contain legally protected and confidential health information intended only for the use of the individual or entity named above. If you are not the intended recipient, you are hereby notified that any disclosure, copying, distribution, or other use of these documents is strictly prohibited. If you have received this information in error, please notify the sender immediately and arrange for the return or destruction of these documents. CC: Rox Huerta DO Terminal Worker: Signed Rox Huerta Work Phone: Appendectomy [facility] Messenger Appendectomy [facility] Messenger Appendectomy Yumiko Gravius Bladder tied up Ninoska Messen asad Bladder tied up Ninoska Messen asad Bladder tied up Yumiko Gravi us Cataract Surgery Ninoska Messe nger Cataract Surgery Ninoska Messe nger Cataract Surgery Yumiko Grav ius Colon sx [facility]inoska Messenger Colon sx Ninoska Messenger Colon sx Yumiko Gravius History of carotid endarterectomy History of left-sided carotid endarterectomy Dr. Jian Viveros Work Phone: new pace maker put i n 2015 [facility] Messenger new pace maker put i n 2015 [facility] Messenger new pace maker put i n 2016 Yumiko Gravius spinal fusion surger y 2016 [facility] Messenger Comment on above: dr Blaise Aparicio MD spinal fusion surger y 2015 [facility] [employer] Messenger Comment on above: dr Blaise Aparicio MD spinal fusion surger y 2015 [facility] Yumiko Gravius Comment on above: dr Blaise Aparicio MD Urine culture Dr. Jian carlson Work Phone: Viral antigen assay Dr. Jian Viveros Work Phone: Plan of Treatment Date Care Activity Detail Author Start: 11-19-2024 ambulatory Ambulatory Facility:[facility] Start: 11-06-2024 Thiamine measurement [facility] Start: 11-06-2024 Vitamin B6 measurement [facility] Start: 05-23-2025 Patient discharge [facility] Start: 07-29-2024 XR Chest PA and Lateral [facility] Start: 04-24-2023 Thiamine measurement [facility] Start: 09-28-2022 Thiamine measurement [facility] Start: 09-28-2022 Vitamin B6 measurement [facility] Start: 07-25-2022 Patient discharge [facility] Start: 07-24-2022 [facility] Start: 07-24-2022 Referral to service [facility] Start: 07-24-2022 Ambulation without limitation [facility] Start: 07-24-2022 Assessment of risk of venous thromboembolism [facility] Start: 07-24-2022 Catheterization of vein [facility] Start: 07-24-2022 Continuous pulse oximetry [facility] Start: 07-24-2022 Deep breathing and coughing exercises [facility] Start: 07-24-2022 Elevation of head of bed [facility] Start: 07-24-2022 Incentive spirometry [facility] Start: 07-24-2022 Insertion of catheter into peripheral vein [facility] Start: 07-24-2022 Measuring intake and output [facility] Start: 07-24-2022 Notification of physician [facility] Start: 07-24-2022 Oxygen therapy [facility] Start: 07-24-2022 Patient referral to dietitian [facility] Start: 07-24-2022 Providing care according to standard [facility] Start: 07-24-2022 Provision of activity privileges [facility] Start: 07-24-2022 Referral to occupational therapist [facility] Start: 07-24-2022 Referral to service [facility] Start: 07-24-2022 Vital signs measurements [facility] Start: 07-24-2022 [facility] Start: 07-24-2022 Following clinical pathway protocol [facility] Start: 07-24-2022 Admission procedure [facility] Start: 07-24-2022 Maintenance of invasive device [facility] Start: 07-24-2022 Inhalation therapy procedure [facility] Start: 12-08-2021 Blood chemistry [facility] Work Phone: Start: 12-07-2021 Blood chemistry [facility] Work Phone: Start: 12-06-2021 Patient discharge [facility] Work Phone: Start: 12-05-2021 Referral to service [facility] Work Phone: Start: 12-04-2021 Following clinical pathway protocol [facility] Work Phone: Start: 12-04-2021 Assessment of risk of venous thromboembolism [facility] Work Phone: Start: 12-04-2021 Catheterization of vein [facility] Work Phone: Start: 12-04-2021 Inhalation therapy procedure [facility] Work Phone: Start: 12-04-2021 Insertion of catheter into peripheral vein [facility] Work Phone: Start: 12-04-2021 Oxygen therapy [facility] Work Phone: Start: 12-04-2021 Physiotherapy of chest [facility] Work Phone: Start: 12-04-2021 Providing care according to standard [facility] Work Phone: Start: 12-04-2021 Provision of activity privileges [facility] Work Phone: Start: 12-04-2021 Referral to occupational therapist [facility] Work Phone: Start: 12-04-2021 Referral to service [facility] Work Phone: Start: 12-04-2021 End: 12-04-2021 Blood culture [facility] Work Phone: Start: 12-04-2021 Verification routine [facility] Work Phone: Start: 12-04-2021 Following clinical pathway protocol [facility] Work Phone: Start: 12-04-2021 Admission procedure [facility] Work Phone: Start: 12-04-2021 End: 12-04-2021 [facility] Work Phone: Start: 12-04-2021 End: 12-04-2021 Blood culture [facility] Work Phone: Start: 12-04-2021 End: 12-04-2021 [facility] Work Phone: Start: 12-04-2021 Patient referral to dietitian [facility] Work Phone: Start: 11-08-2018 Provider Instructions for Treatment Continue Current Prescription(s) [facility] Work Phone: Start: 10-25-2018 Procedure Education Eprescribed prescriptions ([id number]) [facility] Work Phone: Start: 10-25-2018 Provider Instructions for Treatment [facility] Work Phone: Start: 05-29-2018 Provider Instructions for Treatment [facility] Work Phone: Start: 05-29-2018 T4 free mass conc T4, FREE (THYROXINE) ([id number]) [facility] Work Phone: Start: 05-29-2018 T3 free mass conc T3, FREE (TRIDOTHYRONINE) (20904) [facility] Work Phone: Start: 05-29-2018 Thyrotropin Qn TSH (56265) [facility] Work Phone: Start: 05-29-2018 Lipoprotein blood daksha numbers & subclasses NMR Profile (25309) [facility] Work Phone: Start: 05-29-2018 Protein mass conc NMR Profile (26137) [facility] Work Phone: Start: 05-29-2018 Urnls dip stick/tablet reagent auto microscopy URINALYSIS, W/ MICRO (53649) [facility] Work Phone: Start: 05-29-2018 Urine albumin quantitative MICROALBUMIN: CREATININE RATIO (45760) AND (29027) [facility] Work Phone: Start: 05-29-2018 Comprehensive metabolic panel METABOLIC PANEL, COMPREHENSIVE (98981) [facility] Work Phone: Start: 05-29-2018 Blood count complete auto&auto difrntl wbc CBC W/AUTO DIFF WBC (90838) [facility] Work Phone: Start: 03-01-2018 Provider Instructions for Treatment [facility] Work Phone: Start: 01-21-2018 Provider Instructions for Treatment [facility] Work Phone: Start: 01-21-2018 Basic metabolic panel calcium total Metabolic Panel, Basic (76299) [facility] Work Phone: Start: 12-31-2017 Provider Instructions for Treatment [facility] Work Phone: Start: 09-28-2017 Provider Instructions for Treatment [facility] Work Phone: Start: 08-23-2017 Procedure Education Eprescribed prescriptions (G8553) [facility] Work Phone: Start: 08-23-2017 Provider Instructions for Treatment [facility] Work Phone: Start: 08-02-2017 Oncology colorectal screening daksha 10 dna markrs Cologuard - Strool Based DNA Test, CRC SCREEN (44671) [facility] Work Phone: Start: 08-02-2017 Provider Instructions for Treatment [facility] Work Phone: Start: 06-25-2017 Provider Instructions for Treatment [facility] Work Phone: Start: 05-22-2017 Calcium mass conc CALCIUM SERUM (97721) [facility] Work Phone: Start: 05-22-2017 Calcium ionized CALCIUM, IONIZED (89887) [facility] Work Phone: Start: 05-22-2017 25 hydroxy includes fractions if performed CALCIFEDIOL (04474) [facility] Work Phone: Start: 05-22-2017 Assay of parathormone PARATHORMONE (42986) [facility] Work Phone: Start: 05-21-2017 Procedure Education Eprescribed prescriptions (G8553) [facility] Work Phone: Start: 05-21-2017 Provider Instructions for Treatment Follow up in 2 weeks [facility] Work Phone: Start: 04-12-2017 Provider Instructions for Treatment Continue Current Prescription(s) [facility] Work Phone: Start: 04-05-2017 Provider Instructions for Treatment Follow up in 1 week [facility] Work Phone: Start: 03-22-2017 Provider Instructions for Treatment Solu Medrol Injection/ Education [facility] Work Phone: Start: 02-05-2017 Procedure Education Eprescribed prescriptions (G8553) [facility] Work Phone: Start: 02-05-2017 Provider Instructions for Treatment [facility] Work Phone: Start: 02-05-2017 Thyrotropin Qn TSH (58519) [facility] Work Phone: Start: 02-05-2017 25 hydroxy includes fractions if performed CALCIFEDIOL (18002) [facility] Work Phone: Start: 02-05-2017 Urine albumin quantitative MICROALBUMIN: CREATININE RATIO (83198) AND (33446) [facility] Work Phone: Start: 02-05-2017 Comprehensive metabolic panel METABOLIC PANEL, COMPREHENSIVE (34906) [facility] Work Phone: Start: 02-05-2017 Lipid panel LIPID PANEL (34966) [facility] Work Phone: Start: 02-05-2017 Blood count complete auto&auto difrntl wbc CBC with auto diff (46304) [facility] Work Phone: Start: 11-17-2016 Provider Instructions for Treatment [facility] Work Phone: Start: 10-16-2016 Basic metabolic panel calcium total METABOLIC PANEL, BASIC (37123) [facility] Work Phone: Start: 10-05-2016 Provider Instructions for Treatment [facility] Work Phone: Start: 08-30-2016 Provider Instructions for Treatment Continue Current Prescription(s) [facility] Work Phone: Start: 08-28-2016 Provider Instructions for Treatment [facility] Work Phone: Start: 06-29-2016 Provider Instructions for Treatment [facility] Work Phone: Start: 06-15-2016 Provider Instructions for Treatment [facility] Work Phone: Start: 05-25-2016 Procedure Education Eprescribed prescriptions (G8553) [facility] Work Phone: Start: 05-25-2016 Provider Instructions for Treatment [facility] Work Phone: Start: 05-25-2016 25 hydroxy includes fractions if performed CALCIFIDIOL (82355) VIT D 25 [facility] Work Phone: Start: 05-25-2016 T4 free mass conc T4, FREE (THYROXINE) (03136) [facility] Work Phone: Start: 05-25-2016 T3 free mass conc T3, FREE (TRIDOTHYRONINE) (29235) [facility] Work Phone: Start: 05-25-2016 Thyrotropin Qn TSH (35826) [facility] Work Phone: Start: 05-25-2016 Urnls dip stick/tablet reagent auto microscopy URINALYSIS, W/ MICRO (14995) [facility] Work Phone: Start: 05-25-2016 Urine albumin quantitative MICROALBUMIN: CREATININE RATIO (10135) AND (68371) [facility] Work Phone: Start: 05-25-2016 Comprehensive metabolic panel METABOLIC PANEL, COMPREHENSIVE (47674) [facility] Work Phone: Start: 05-25-2016 Lipid panel LIPID PANEL (51226) [facility] Work Phone: Start: 05-25-2016 Blood count complete auto&auto difrntl wbc CBC W/AUTO DIFF WBC (02292) [facility] Work Phone: Start: 03-06-2016 Provider Instructions for Treatment Reviewed Lab [facility] Work Phone: Start: 02-08-2016 Procedure Education Eprescribed prescriptions (G8553) [facility] Work Phone: Start: 02-08-2016 Provider Instructions for Treatment [facility] Work Phone: Start: 02-08-2016 Blood occult fecal hgb deter ia qual feces 1-3 FECAL OCCULT- Tubes sent home (40296) [facility] Work Phone: Start: 01-20-2016 Procedure Education Eprescribed prescriptions (G8553) [facility] Work Phone: Start: 01-20-2016 Provider Instructions for Treatment [facility] Work Phone: Start: 08-11-2015 Procedure Education Eprescribed prescriptions (G8553) [facility] Work Phone: Start: 08-11-2015 Provider Instructions for Treatment Follow up in 1 week [facility] Work Phone: Start: 02-17-2015 Procedure Education Eprescribed prescriptions (G8553) [facility] Work Phone: Start: 02-17-2015 Provider Instructions for Treatment Reviewed Diagnostic Tests [facility] Work Phone: Start: 01-07-2015 Provider Instructions for Treatment [facility] Work Phone: Start: 12-10-2014 Procedure Education Eprescribed prescriptions (G8553) [facility] Work Phone: Start: 12-10-2014 Provider Instructions for Treatment [facility] Work Phone: Start: 12-02-2014 Procedure Education Eprescribed prescriptions (G8553) [facility] Work Phone: Start: 11-26-2014 Procedure Education Eprescribed prescriptions (G8553) [facility] Work Phone: Start: 11-26-2014 Provider Instructions for Treatment [facility] Work Phone: Start: 11-12-2014 Procedure Education Eprescribed prescriptions (G8553) [facility] Work Phone: Start: 11-12-2014 Provider Instructions for Treatment Follow up in 2 weeks [facility] Work Phone: Start: 03-16-2014 Provider Instructions for Treatment Follow up in 2 days [facility] Work Phone: Start: 07-29-2013 Provider Instructions for Treatment Follow up in 2 weeks [facility] Work Phone: Start: 06-11-2013 Provider Instructions for Treatment [facility] Work Phone: Start: 05-21-2013 Provider Instructions for Treatment Reviewed Lab [facility] Work Phone: Start: 04-30-2013 Provider Instructions for Treatment [facility] Work Phone: Start: 12-27-2012 Patient Education [facility] Work Phone: Start: 12-27-2012 Provider Instructions for Treatment [facility] Work Phone: Start: 12-11-2012 Antibody cytomegalovirus cmv CMV ANTIBODY (55318) [facility] Work Phone: Start: 12-11-2012 Antibody cytomegalovirus cmv igm CMV IGM ANTBDY (65226) [facility] Work Phone: Start: 12-11-2012 Antibody kareem-patino eb virus viral capsid vca EB ANTIBODY VIRAL CAPSID (45700) X2 [facility] Work Phone: Start: 12-11-2012 Antibody kareem-pation eb virus nuclear ag ebna EB ANTIBODY NUCLR ANTIGN (44903) [facility] Work Phone: Start: 12-11-2012 Antibody kareem-patino eb virus early antigen ea EB ANTIBODY EARLY ANTIGN (05038) [facility] Work Phone: Start: 12-11-2012 25 hydroxy includes fractions if performed CALCIFIDIOL (72605) VIT D 25 [facility] Work Phone: Start: 12-11-2012 Assay of folic acid serum Folate (67390) [facility] Work Phone: Start: 12-11-2012 Cobalamin (Vitamin B12) mass conc VITAMIN B-12 (CYANOCOBALAMIN) (27236) [facility] Work Phone: Start: 12-11-2012 Thyrotropin Qn TSH (95726) [facility] Work Phone: Start: 12-11-2012 Sedimentation rate rbc non-automated SED RATE ERYTHROCYTE (02544) [facility] Work Phone: Start: 12-11-2012 Rheumatoid factor quantitative RHEUMATOID FACTOR-QUANT (72774) [facility] Work Phone: Start: 12-11-2012 Comprehensive metabolic panel METABOLIC PANEL, COMPREHENSIVE (23645) [facility] Work Phone: Start: 12-11-2012 CRP mass conc C-REACTIVE PROTEIN (51259) [facility] Work Phone: Start: 12-11-2012 Blood count complete automated CBC (AUTO) (63076) [facility] Work Phone: Start: 12-11-2012 Nuclear Ab IF titer (S) ASHLEIGH (ANTINUCLEAR ANTIBODY) (70193) [facility] Work Phone: Start: 12-11-2012 Provider Instructions for Treatment [facility] Work Phone: Start: 10-07-2012 Patient Education Allergies: allergen [facility] Work Phone: Start: 10-07-2012 Provider Instructions for Treatment [facility] Work Phone: Start: 07-05-2012 Patient Education Allergies: allergies [facility] Work Phone: Start: 06-11-2012 Patient Education Itching: itch [facility] Work Phone: Start: 06-11-2012 Provider Instructions for Treatment [facility] Work Phone: Start: 06-07-2012 Provider Instructions for Treatment [facility] Work Phone: Start: 06-03-2012 Provider Instructions for Treatment [facility] Work Phone: Start: 03-27-2012 Provider Instructions for Treatment [facility] Work Phone: Bacteria identified in Blood by Culture Blood Culture [facility] Work Phone: Bacteria identified in Urine by Culture Urine Culture [facility] Work Phone: Basic metabolic 2008 panel with ionized calcium - Serum or Plasma [facility] Blood culture [facility] Work Phone: Complete blood count [facility] CTA Head vessels and Neck vessels W contrast IV [facility] Patient referral [facility] Work Phone: Prothrombin time [facility] Replacement of elect ronic heart device, pulse generator [facility] Urinalysis complete panel - Urine [facility] US Carotid arteries [facility] US Carotid arteries [facility] Heart [facility] Work Phone: [facility] Work Phone: [facility] Work Phone: [facility] Work Phone: [facility] Work Phone: [facility] Work [facility] Work Phone: [facility] Work Phone[facility] Work Phone: [facility] Work [facility] Work Phone: [facility] Work Phone: [facility] Work Phone: [facility] Work Phone: [facility] Work Phone: [facility] Work Phone: [facility] Work Phone: [facility] Work Phone: [facility] Work Phone: [facility] Work Phone: [facility] Work Phone[facility] Work Phone: [facility] Work Phone: [facility] Work Phone: [facility] Work Phone[facility] Work Phone: [facility] Work Phone: [facility] Work Phone: [facility] Work Phone: [facility] Work Phone: [facility] Work Phone: [facility] Work Phone: [facility] Work Phone: [facility] Work Phone: [facility] Work Phone[facility] Work Phone[facility] Work Phone: [facility] Work Phone: [facility] Work Phone: [facility] Work Phone: Immunizations Immunization Date Immunization Notes Care Provider Fa [facility] 08-20-2020 Covjocelin (Moderna) Dr. Jian santoyo Work Phone: [facility] 07-23-2020 Jeimy SalazarModernmukesh) Dr. Jian santoyo Work Phone: [facility] 01-17-2018 pneumococcal conjuga te vaccine, 7 valent Rox Huerta [facility] Work Phone: Payers Date Payer Category Payer Self-pay [id number] 2023 Unknown [id number] 2018 Medicare [id number] 2014 Unknown [id number] 2002 Medicare [id number] 2002 Medicare [id number] 1935 Unknown [id number] 6 Private Health Insurance [facility] [id number] Unknown [employer] Life Ins/Medicare Unknown [id number] Unknown [id number] [id number] 2 Unknown [id number] 2.16.840.1.822931.3.579.2.46 2 Unknown [id number] 2.16.840.1.888898.3.579.2.46 2 Unknown [id number] 2.16.840.1.677619.3.579.2.46 2 Unknown [id number] 2.16.840.1.648679.3.579.2.46 2 Unknown [id number] 2.16.840.1.593199.3.579.2.46 2 Unknown [id number] 2.16.840.1.537259.3.579.2.46 2 Unknown [id number] 2.16.840.1.205850.3.579.2.46 2 Unknown [id number] 2.16.840.1.074444.3.579.2.46 2 Unknown [id number] 2.16.840.1.904397.3.579.2.46 2 Unknown [id number] 2.16.840.1.955559.3.579.2.46 2 Unknown [id number] 2.16.840.1.258623.3.579.2.46 2 Unknown [id number] 2.16.840.1.356295.3.579.2.46 2 Unknown [id number] 2.16.840.1.974774.3.579.2.46 2 Unknown [id number] 2.16.840.1.861817.3.579.2.46 2 Unknown [id number] 2.16.840.1.210565.3.579.2.46 2 Unknown [id number] 2.16.840.1.279143.3.579.2.46 2 Unknown [id number] 2.16.840.1.796830.3.579.2.46 2 Unknown [id number] 2.16.840.1.738816.3.579.2.46 2 Unknown [id number] 2.16.840.1.792344.3.579.2.46 2 Social History Date Type Detail Facility Caffeine Use Former smoker [facility] Work Phone: Comment on above: qd Exercise History: Does not exercise. [facility] Work Phone: Living Situation: Lives with spouse. [facility] Work Phone: Pets/Animals: Dog. [facility] Work Phone: Tobacco use: Former smoker. [facility] Work Phone: Start: 05-24-2021 End: 06-19-2023 Tobacco smoking status [facility] Unknown if ever smoked [facility] Start: 01-20-2020 None [facility] Start: 01-20-2020 Alone [facility] Start: 01-20-2020 Cigarettes [facility] Start: 1935 Sex Assigned At Female [facility] Start: 10-11-2023 End: 08-08-2024 Tobacco smoking status [facility] Ex-smoker (finding) [facility] Start: 06-10-2024 Sex Female (finding) [facility] Medical Equipment Procedure Code Equipment Code Equipment Origin al Text Equipment Identifier Dates Endarterectomy, carotid Cardiovascular patch, animal-derived [id number] FDA Start: 07-24-2022 Endarterectomy, carotid Ligation clip, metallic [id number] FDA Start: 07-24-2022 Endarterectomy, carotid Ligation clip, metallic [id number] FDA Start: 07-24-2022 Endarterectomy, carotid Ligation clip, metallic [id number] FDA Start: 07-24-2022 Endarterectomy, carotid Ligation clip, metallic [id number] FDA Start: 07-24-2022 Endarterectomy, carotid Ligation clip, metallic [id number] FDA Start: 07-24-2022 LANCETS (Miscellaneous) 1 Misc qd for 90 days Quantity: 1 {Box} Refills: 3 Ordered: 21-May-2013 Bradley DO, Rox Bradley DO, Rox Start : 21-May-2013 Active Start: 05-21-2013 LANCETS (Miscellaneous) 1 Misc qd for 90 days Quantity: 1 {Box} Refills: 3 Ordered: 21-May-2013 Bradley DO, Rox Bradley DO, Rox Start : 21-May-2013 Active Start: 05-21-2013 LANCETS (Miscellaneous) 1 Misc qd for 90 days Quantity: 1 {Box} Refills: 3 Ordered: 21-May-2013 Bradley DO, Rox Bradley DO, Rox Start : 21-May-2013 Active Start: 05-21-2013 LANCETS (Miscellaneous) 1 Misc qd for 90 days Quantity: 1 {Box} Refills: 3 Ordered: 21-May-2013 Bradley DO, Rox Bradley DO, Rox Start : 21-May-2013 Active Start: 05-21-2013 LANCETS (Miscellaneous) 1 Misc qd for 90 days Quantity: 1 {Box} Refills: 3 Ordered: 21-May-2013 Bradley DO, Rox Bradley DO, Rox Start : 21-May-2013 Active Start: 05-21-2013 LANCETS (Miscellaneous) 1 Misc qd for 90 days Quantity: 1 {Box} Refills: 3 Ordered: 21-May-2013 Bradley DO, Rox Bradley DO, Rox Start : 21-May-2013 Active Start: 05-21-2013 LANCETS (Miscellaneous) 1 Misc qd for 90 days Quantity: 1 {Box} Refills: 3 Ordered: 21-May-2013 Bradley DO, Rox Bradley DO, Rox Start : 21-May-2013 Active Start: 05-21-2013 LANCETS (Miscellaneous) 1 Misc qd for 90 days Quantity: 1 {Box} Refills: 3 Ordered: 21-May-2013 Bradley DO, Rox Bradley DO, Rox Start : 21-May-2013 Active Start: 05-21-2013 LANCETS (Miscellaneous) 1 Misc qd for 90 days Quantity: 1 {Box} Refills: 3 Ordered: 21-May-2013 Bradley DO, Rox Bradley DO, Rox Start : 21-May-2013 Active Start: 05-21-2013 LANCETS (Miscellaneous) 1 Misc qd for 90 days Quantity: 1 {Box} Refills: 3 Ordered: 21-May-2013 Bradley DO, Rox Bradley DO, Rox Start : 21-May-2013 Active Start: 05-21-2013 LANCETS (Miscellaneous) 1 Misc qd for 90 days Quantity: 1 {Box} Refills: 3 Ordered: 21-May-2013 Bradley DO, Rox Bradley DO, Rox Start : 21-May-2013 Active Start: 05-21-2013 LANCETS (Miscellaneous) 1 Misc qd for 90 days Quantity: 1 {Box} Refills: 3 Ordered: 21-May-2013 Bradley DO, Rox Bradley DO, Rox Start : 21-May-2013 Active Start: 05-21-2013 LANCETS (Miscellaneous) 1 Misc qd for 90 days Quantity: 1 {Box} Refills: 3 Ordered: 21-May-2013 Bradley DO, Rox Bradley DO, Rox Start : 21-May-2013 Active Start: 05-21-2013 LANCETS (Miscellaneous) 1 Misc qd for 90 days Quantity: 1 {Box} Refills: 3 Ordered: 21-May-2013 Bradley DO, Rox Bradley DO, Rox Start : 21-May-2013 Active Start: 05-21-2013 LANCETS (Miscellaneous) 1 Misc qd for 90 days Quantity: 1 {Box} Refills: 3 Ordered: 21-May-2013 Rox Huerta DO, DO, Kathleen Start : 21-May-2013 Active Start: 05-21-2013 LANCETS (Miscellaneous) 1 Misc qd for 90 days Quantity: 1 {Box} Refills: 3 Ordered: 21-May-2013 Rox Huerta DO, DO, Kathleen Start : 21-May-2013 Active Start: 05-21-2013 LANCETS (Miscellaneous) 1 Misc qd for 90 days Quantity: 1 {Box} Refills: 3 Ordered: 21-May-2013 Rox Huerta DO, DO, Kathleen Start : 21-May-2013 Active Start: 05-21-2013 LANCETS (Miscellaneous) 1 Misc qd for 90 days Quantity: 1 {Box} Refills: 3 Ordered: 21-May-2013 Rox Huerta DO, DO, Kathleen Start : 21-May-2013 Active Start: 05-21-2013 LANCETS (Miscellaneous) 1 Misc qd for 90 days Quantity: 1 {Box} Refills: 3 Ordered: 21-May-2013 Rox Huerta DO, DO, Kathleen Start : 21-May-2013 Active Start: 05-21-2013 LANCETS (Miscellaneous) 1 Misc qd for 90 days Quantity: 1 {Box} Refills: 3 Ordered: 21-May-2013 Rox Huerta DO, DO, Kathleen Start : 21-May-2013 Active Start: 05-21-2013 ([id number]) Dual-chamber implantable pacemaker, rate-responsive ()[id number] FDA Start: 08-08-2024 Goals Date Patient Goal Desired Activity /State Functional Status Date Assessment Result Facility 07-25-2022 Functional status Up ad arnaldo [facility] Work Phone: 12-06-2021 Functional status Chair [facility] Work Phone: Mental Status Date Assessment Result Facility 07-25-2022 Cognitive function Voice/Name [facility] Work Phone: 12-06-2021 Cognitive function Appropriate;Cooperativ e [facility] Work Phone: 12-05-2021 Cognitive function Arousable To Voice/Nam e [facility] Work Phone: 12-04-2021 Cognitive function Level Of Cons ciousness Awake;Alert [facility] Work Phone: 11-27-2021 Cognitive function Awake;Alert;A ppropriate;Follow s Commands [facility] Work Phone: Clinical Notes 04-19-2015 to 11-06-2024 Note Date & Type Note Facility 11-06-2024 Radiology Diagnostic study note [facility] Imaging Services [address] [place] [address] Acute Abdomen Inc Chest MR#: [id number] Acct: [id number] Name: TRINIDAD PARKER Rep #: [id number] : 1935 F 89 From: Oj Weeks MD PCP: Dr. Jian Viveros MD Status: RE G CLI Study:Acute Abdomen Inc Chest Date of Exam: 11/06/24 Exam# [id number] Ordering Dr: Jian Viveros MD PROCEDURE: ACUTE ABDOMEN INC CHEST 11/06/2024 REASON FOR EXAM: ABD PAIN TECHNIQUE: ACUTE ABDOMEN INC CHEST FINDINGS: LINES: Right-sided pacemaker device with right atrial and right ventricular leads. LUNGS: No focal airspace consolidation. Calcified granulomas bilaterally. PLEURAL SPACES: No pleural effusion. No pneumothorax. HEART: The heart size is normal. MEDIASTINUM: Unremarkable. AORTA: Calcified thoracic and abdominal aorta.. PERITONEUM: No appreciable free air. Multiple left upper quadrant calcifications, likely calcified splenic granulomas. BOWEL: The bowel gas pattern is unremarkable. No bowel obstruction. Moderate colonic stool. BONES: No acute osseous abnormality. Prior spinal instrumentation with fusion hardwareat L2-L3. Degenerative changes of the spine and both hips. RAD/Acute Abdomen Inc Chest IMPRESSION: NO ACUTE FINDINGS. Reading Location: [id number] CC: Dr. Jian Viveros MD ~ Terminal Worker: Signed [facility] 10-15-2024 Radiology Diagnostic study note [facility] Imaging Services [address] [place] [address] Head/Neck Soft Tissue MR#: [id number] Acct: [id number] Name: TRINIDAD PARKER Rep #: [id number] : 1935 F 89 From: Howard Gallagher MD PCP: Dr. Jian Viveros MD Status: RE G CLI Study:Head/Neck Soft Tissue Date of Exam: 10/13/24 Exam# [id number] Ordering Dr: Jian Viveros MD PROCEDURE: HEAD/NECK SOFT TISSUE 10/13/2024 REASON FOR EXAM: ATTENTION TO LEFT SUBMANDIBULAR GLAND TECHNIQUE: HEAD/NECK SOFT TISSUE COMPARISON: None FINDINGS: The right submandibular gland measures 3.5 cm x 3.2 cm x 0.9 cm. It is unremarkable. The left submandibular gland measures 3.4 cm x 3.8 cm x 0.8 cm. No mass lesion is seen. US/Head/Neck Soft Tissue IMPRESSION: Symmetrically appearing bilateral submandibular glands. No suspicious abnormality is seen. Reading Location: [facility] CC: Dr. Jian Viveros MD ~ Terminal Worker: Signed [facility] 08-14-2024 Procedure note [facility] 07-29-2024 Evaluation note Diagnosis Onset Date Resolution Complete heart block chronic July 29, 2024 12:52pm Paroxysmal atrial fibrillation chronic July 29, 2024 12:52pm Presence of permanent cardiac pacemaker April 19, 2015 chronic July 29, 2024 12:52pm snf current use of anticoagulant therapy acute July 29, 2024 12:53pm Atherosclerotic heart disease of [place] coronary artery without angina pectoris chronic July 29, 2024 12:53pm Hyperlipidemia chronic July 29, 2024 12:53pm Paroxysmal atrial fibrillation chronic July 29, 2024 12:53pm Presence of permanent cardiac pacemaker April 19, 2015 chronic July 29, 2024 12:53pm [facility] Work Phone: [phone] Evaluation note* Diagnosis Onset Date Resolution Status Admit Date Complete heart block chronic July 29, 2024 12:52pm Paroxysmal atrial fibrillation chronic July 29, 2024 12:52pm Presence of permanent cardia c pacemaker April 19, 2015 chronic July 29 12:52pm snf current use of anticoagulant therapy acute July 29, 2024 12:53pm Atherosclerotic heart diseas e of [place] coronary artery without angina pectoris chronic July 12:53pm Hyperlipidemia chronic July 29, 2024 12:53pm Paroxysmal atrial fibrillation chronic July 29, 2024 12:53pm Presence of permanent cardia c pacemaker April 19, 2015 chronic July 29 12:53pm Complete heart block chronic August 14, 2024 12:58pm Paroxysmal atrial fibrillation chronic August 14, 2024 12:58pm Paroxysmal atrial flutter chronic August 14, 2024 12:58pm Presence of permanent cardia c pacemaker April 19, 2015 chronic August 14 12:58pm Sick sinus syndrome chronic July 182024 12:58pm [facility] Work Phone: [phone] Procedure [facility] [address] [place] [address] Pacemaker Check Date of Service: 07/29/24 1352 MR#: [id number] Acct: [id number] Name: TRINIDAD PARKER Rep #: [id number] : 1935 From: Nikki quintanilla Age/Sex: 89/F Location: [facility] [place] Status: Signed Billing Codes PM Device Codes: 20269 PM Dev Prog Eval, Dual Assessment and Plan Assessment and Plan (1) Presence of permanent cardiac pacemaker: Status: Chronic Comment: Pacemaker implant 12/18/06; Generator change 04/19/15 (2) Complete heart block: Status: Chronic Comment: Patient has complete heart block and is pacer dependent. The pacemaker device check was normal May 31, 2023. She has 1.4 years of battery life. (3) Paroxysmal atrial fibrillation: Status: Chronic Comment: The patient is on amiodarone 200 mg daily with metoprolol. The patient is currently tolerating her medical regiment. She denies any nuisance bleeding. We discussed spreading out her metoprolol and lisinopril if she continues to be lightheaded and dizzy I would discontinue the metoprolol completely.She does have an elevated TSH and this is managed by her primary service. Orders: Orders CBC-Complete Blood Cnt No Diff Today I44.2 - Atrioventricular block, complete, I48.0 - Paroxysmal atrial fibrillation, Z95.0 - Presence of cardiac pacemaker Basic Metabolic Profile (BMP) Today I44.2 - Atrioventricular block, complete, I48.0 - Paroxysmal atrial fibrillation, Z95.0 - Presence of cardiac pacemaker Prothrombin Time w/INR Today I44.2 - Atrioventricular block, complete, I48.0 - Paroxysmal atrial fibrillation, Z79.01 - snf (current) use of anticoagulants, Z95.0 - Presence of cardiac pacemaker Urinalysis, Complete Today I44.2 - Atrioventricular block, complete, I48.0 - Paroxysmal atrial fibrillation, Z95.0 - Presence of cardiac pacemaker Chest PA and Lateral Today I44.2 - Atrioventricular block, complete, I48.0 - Paroxysmal atrial fibrillation, Z95.0 - Presence of cardiac pacemaker Pacemaker Generator Change 08/08/24 I44.2 - Atrioventricular block, complete, I48.0 - Paroxysmal atrial fibrillation, Z95.0 - Presence of cardiac pacemaker 07/29/24 1353 > Date _ Nikki Romero Signature: Date (if applicable) CC: ~ [facility]11-25-2024 Evaluation note* Diagnosis Onset Date Resolution Status Admit Date Dizziness acute February 11, 2024 1:39pm Atherosclerotic heart disease of [place] coronary artery without angina pectoris chronic February 10, 2 024 1:39pm Essential (primary) hypertension chronic February 10, 2 024 1:39pm Paroxysmal atrial fibrillation chronic February 10, 2 024 1:39pm Presence of permanent cardiac pacemaker April 19, 2015 chronic February 102023 1:39pm [facility] Work Phone: 1([phone]) 209-185707-27-2021 NoteHNO ID: [id number] Author: Chance Zhang MD Service: ? Author Type: Physician Type: Progress Notes Filed: 10/12/2020 3:16 PM Note Text: Assessment and Plan 1. 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 3. Fuchs' corneal dystrophy of both eyes -mild guttaae 4. 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 Pseudophakia of both eyes -stable both eyes s/p YAG capsulotomy both eyes Plan: -patient has undergone multiple hospitalizations for respiratory infections, and had 2 cardioversions since last visit -feels that vision has been worse since hospitalization -stable both eyes exam today including OCT macula and refraction -will try artificial tears -follow-up 6 months with refraction, pachymetry, dilation, OCT nerve and macula if not better, sooner as needed I have confirmed and edited as necessary the relevant ophthalmic history, ROS, and the neuro exam findings as obtained by others. I have seen and examined Trinidad Parker. I have discussed the case and the management of this patient's care with the Resident/Fellow, if applicable. I also have reviewed and agree with the assessment and plan as stated above and agree with all of its relevant components. Chance Zhang MD October 12, 2020 3:13 [facility]02-01-2016 Evaluation note* Diagnosis Onset Date Resolution Status Essential (primary) hypertension chronic Hyperlipidemia chronic Paroxysmal atrial fibrillation chronic Presence of permanent cardiac pacemaker April 19, 2015 chronic History of coronary artery stent placement May 31, 2017 resolved [facility] Work Phone: 1([phone]) 713-450602-01-2016 Evaluation note* Diagnosis Onset Date Resolution Status Essential (primary) hypertension chronic Hyperlipidemia chronic Paroxysmal atrial fibrillation chronic Presence of permanent cardiac pacemaker April 19, 2015 chronic History of coronary artery stent placement May 31, 2017 resolved Complete heart block chronic Paroxysmal atrial fibrillation chronic Paroxysmal atrial flutter bj Presence of permanent cardiac pacemaker April 19, 2015 chronic 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 Sick sinus syndrome chronic Bilateral carotid artery stenosis chronic [facility] Work Phone: [phone]) 520-717802-01-2016 Evaluation note* Diagnosis Onset Date Resolution Status Complete heart block chronic Paroxysmal atrial fibrillation chronic Paroxysmal atrial flutter ch ronic Presence of permanent cardiac pacemaker April 19, 2015 chronic 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 Sick sinus syndrome chronic [facility] Work Phone: 1([phone]) 196-973602-01-2016 Evaluation note* Diagnosis Onset Date Resolution Status Complete heart block chronic Paroxysmal atrial fibrillation chronic Presence of permanent cardiac pacemaker April 19, 2015 chronic 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 History of coronary artery stent placement May 31, 2017 resolved [facility] Work Phone: 1([phone]) 862-810102-01-2016 Evaluation note* Diagnosis Onset Date Resolution Status Complete heart block chronic Paroxysmal atrial fibrillation chronic Presence of permanent cardiac pacemaker April 19, 2015 chronic 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 History of coronary artery stent placement May 31, 2017 resolved Atherosclerotic heart diseas e of [place] coronary artery without angina pectoris chronic Complete heart block chronic Essential (primary) hypertension chronic Paroxysmal atrial fibrillation chronic [facility] Work Phone: [phone]) 268-506902-01-2016 Evaluation note* Diagnosis Onset Date Resolution Status Admit Date Complete heart block chronic July 29, 2024 12:52pm Paroxysmal atrial fibrillation chronic July 29, 2024 12:52pm Presence of permanent cardiac pacemaker April 19, 2015 chronic July 29, 025 12:52pm [facility] Work Phone: Evaluation noteNo assessment information available [facility] Work Phone: Evaluation note* Diagnosis Onset Date Resolution Status Acute UTI acute Generalized weakness acute Chronic obstructive pulmonary disease with hypoxia chronic COPD exacerbation chronic [facility] Work Phone: Evaluation note* Diagnosis Onset Date Resolution Status Leukocytosis (leucocytosis) acute Acute costochondritis resolv ed [facility] Work Phone: Evaluation note* Diagnosis Onset Date Resolution Status Bilateral carotid artery stenosis chronic Left carotid artery stenosis acute Bilateral carotid artery stenosis chronic [facility] Work Phone: Reason for referral (narrative)No reason for referral information available[facility] Work Phone: Family History No Family History Records FoundUnknown Family Member Name Dates Details Alcohol Abuse Status:Active Anxiety Disorder Status:Active Cancer Status:Active Diabetes Mellitus Status:Active Heart Disease Status:Active Hypercholesterolemia Status:Active Hypertension Status:Active Thyroid problems Status:Active Ulcer Disease Status:Active Unknown Family Member Name Dates Details Alcohol Abuse Status:Active Anxiety Disorder Status:Active Cancer Status:Active Diabetes Mellitus Status:Active Heart Disease Status:Active Hypercholesterolemia Status:Active Hypertension Status:Active Thyroid problems Status:Active Ulcer Disease Status:Active Unknown Family Member Name Dates Details Alcohol Abuse Status:Active Anxiety Disorder Status:Active Cancer Status:Active Diabetes Mellitus Status:Active Heart Disease Status:Active Hypercholesterolemia Status:Active Hypertension Status:Active Thyroid problems Status:Active Ulcer Disease Status:Active Unknown Family Member Name Dates Details Alcohol Abuse Status:Active Anxiety Disorder Status:Active Cancer Status:Active Diabetes Mellitus Status:Active Heart Disease Status:Active Hypercholesterolemia Status:Active Hypertension Status:Active Thyroid problems Status:Active Ulcer Disease Status:Active Unknown Family Member Name Dates Details Alcohol Abuse Status:Active Anxiety Disorder Status:Active Cancer Status:Active Diabetes Mellitus Status:Active Heart Disease Status:Active Hypercholesterolemia Status:Active Hypertension Status:Active Thyroid problems Status:Active Ulcer Disease Status:Active Unknown Family Member Name Dates Details Alcohol Abuse Status:Active Anxiety Disorder Status:Active Cancer Status:Active Diabetes Mellitus Status:Active Heart Disease Status:Active Hypercholesterolemia Status:Active Hypertension Status:Active Thyroid problems Status:Active Ulcer Disease Status:Active Unknown Family Member Name Dates Details Alcohol Abuse Status:Active Anxiety Disorder Status:Active Cancer Status:Active Diabetes Mellitus Status:Active Heart Disease Status:Active Hypercholesterolemia Status:Active Hypertension Status:Active Thyroid problems Status:Active Ulcer Disease Status:Active Unknown Family Member Name Dates Details Alcohol Abuse Status:Active Anxiety Disorder Status:Active Cancer Status:Active Diabetes Mellitus Status:Active Heart Disease Status:Active Hypercholesterolemia Status:Active Hypertension Status:Active Thyroid problems Status:Active Ulcer Disease Status:Active Unknown Family Member Name Dates Details Alcohol Abuse Status:Active Anxiety Disorder Status:Active Cancer Status:Active Diabetes Mellitus Status:Active Heart Disease Status:Active Hypercholesterolemia Status:Active Hypertension Status:Active Thyroid problems Status:Active Ulcer Disease Status:Active Unknown Family Member Name Dates Details Alcohol Abuse Status:Active Anxiety Disorder Status:Active Cancer Status:Active Diabetes Mellitus Status:Active Heart Disease Status:Active Hypercholesterolemia Status:Active Hypertension Status:Active Thyroid problems Status:Active Ulcer Disease Status:Active Unknown Family Member Name Dates Details Alcohol Abuse Status:Active Anxiety Disorder Status:Active Cancer Status:Active Diabetes Mellitus Status:Active Heart Disease Status:Active Hypercholesterolemia Status:Active Hypertension Status:Active Thyroid problems Status:Active Ulcer Disease Status:Active Unknown Family Member Name Dates Details Alcohol Abuse Status:Active Anxiety Disorder Status:Active Cancer Status:Active Diabetes Mellitus Status:Active Heart Disease Status:Active Hypercholesterolemia Status:Active Hypertension Status:Active Thyroid problems Status:Active Ulcer Disease Status:Active Relationship Condition Age at Onset Recorded Date/T alexx father Malignant neoplasm Unknown Cardiac disease Unknown mother Cerebrovascular accident (CVA) Unknown Hypertension Unknown sister Hypertension Unknown Malignant neoplasm Unknown son Diabetes mellitus Unknown Myocardial infarction 50 Instructions Name Dates Details Nonsmoker : How to access he alth information online Indication:Nonsmoker Nonsmoker : How to access he alth information online - Detail Indication:Nonsmoker Nonsmoker : Patient Instruct ions Indication:Nonsmoker SOB (shortness of breath) on exertion : Patient Instructions Indication:SOB (shortness of breath) on exertion Hypercalcemia : How to acces s health information online Indication:Hypercalcemia Hypercalcemia : How to acces s health information online - Detail Indication:Hypercalcemia Hypercalcemia : Patient Inst ructions Indication:Hypercalcemia Acute myocardial infarction, unspecified DE type, unspecified artery : cardiovascular counseling Indication:Acute myocardial infarction, unspecified DE type, unspecified artery Hypertension : How to access health information online Indication:Hypertension Hypertension : How to access health information online - Detail Indication:Hypertension Hypertension : Patient Instr uctions Indication:Hypertension BMI 24.0-24.9, adult : How t o access health information online Indication:BMI 24.0-24.9, adult BMI 24.0-24.9, adult : How t o access health information online - Detail Indication:BMI 24.0-24.9, adult BMI 24.0-24.9, adult : Patie nt Instructions Indication:BMI 24.0-24.9, adult Body mass index (BMI) 24.0-2 4.9, adult : How to access health information online Indication:Body mass index (BMI) 24.0-24.9, adult Body mass index (BMI) 24.0-2 4.9, adult : How to access health information online - Detail Indication:Body mass index (BMI) 24.0-24.9, adult Body mass index (BMI) 24.0-2 4.9, adult : Patient Instructions Indication:Body mass index (BMI) 24.0-24.9, adult FATIGUE : Patient Instructio ns Indication:FATIGUE Abnormal glucose tolerance t est : How to access health information online Indication:Abnormal glucose tolerance test Abnormal glucose tolerance t est : How to access health information online - Detail Indication:Abnormal glucose tolerance test Abnormal glucose tolerance t est : Patient Instructions Indication:Abnormal glucose tolerance test Benign essential HTN : How t o access health information online Indication:Benign essential HTN Benign essential HTN : How t o access health information online - Detail Indication:Benign essential HTN Benign essential HTN : Patie nt Instructions Indication:Benign essential HTN Iliac bone pain : How to acc ess health information online Indication:Iliac bone pain Iliac bone pain : How to acc ess health information online - Detail Indication:Iliac bone pain Iliac bone pain : Patient In structions Indication:Iliac bone pain Foot lesion : How to access health information online Indication:Foot lesion Foot lesion : How to access health information online - Detail Indication:Foot lesion Foot lesion : Patient Instru ctions Indication:Foot lesion Low back pain potentially as sociated with radiculopathy : How to access health information online Indication:Low back pain potentially associated with radiculopathy Low back pain potentially as sociated with radiculopathy : How to access health information online - Detail Indication:Low back pain potentially associated with radiculopathy Low back pain potentially as sociated with radiculopathy : Patient Instructions Indication:Low back pain potentially associated with radiculopathy Encounter for immunization : Patient Instructions Indication:Encounter for immunization Rash : Patient Instructions Indication:Rash Name Dates Details Nonsmoker : How to access he alth information online Indication:Nonsmoker Nonsmoker : How to access he alth information online - Detail Indication:Nonsmoker Nonsmoker : Patient Instruct ions Indication:Nonsmoker SOB (shortness of breath) on exertion : Patient Instructions Indication:SOB (shortness of breath) on exertion Hypercalcemia : How to acces s health information online Indication:Hypercalcemia Hypercalcemia : How to acces s health information online - Detail Indication:Hypercalcemia Hypercalcemia : Patient Inst ructions Indication:Hypercalcemia Acute myocardial infarction, unspecified DE type, unspecified artery : cardiovascular counseling Indication:Acute myocardial infarction, unspecified DE type, unspecified artery Hypertension : How to access health information online Indication:Hypertension Hypertension : How to access health information online - Detail Indication:Hypertension Hypertension : Patient Instr uctions Indication:Hypertension BMI 24.0-24.9, adult : How t o access health information online Indication:BMI 24.0-24.9, adult BMI 24.0-24.9, adult : How t o access health information online - Detail Indication:BMI 24.0-24.9, adult BMI 24.0-24.9, adult : Patie nt Instructions Indication:BMI 24.0-24.9, adult Body mass index (BMI) 24.0-2 4.9, adult : How to access health information online Indication:Body mass index (BMI) 24.0-24.9, adult Body mass index (BMI) 24.0-2 4.9, adult : How to access health information online - Detail Indication:Body mass index (BMI) 24.0-24.9, adult Body mass index (BMI) 24.0-2 4.9, adult : Patient Instructions Indication:Body mass index (BMI) 24.0-24.9, adult FATIGUE : Patient Instructio ns Indication:FATIGUE Abnormal glucose tolerance t est : How to access health information online Indication:Abnormal glucose tolerance test Abnormal glucose tolerance t est : How to access health information online - Detail Indication:Abnormal glucose tolerance test Abnormal glucose tolerance t est : Patient Instructions Indication:Abnormal glucose tolerance test Benign essential HTN : How t o access health information online Indication:Benign essential HTN Benign essential HTN : How t o access health information online - Detail Indication:Benign essential HTN Benign essential HTN : Patie nt Instructions Indication:Benign essential HTN Iliac bone pain : How to acc ess health information online Indication:Iliac bone pain Iliac bone pain : How to acc ess health information online - Detail Indication:Iliac bone pain Iliac bone pain : Patient In structions Indication:Iliac bone pain Foot lesion : How to access health information online Indication:Foot lesion Foot lesion : How to access health information online - Detail Indication:Foot lesion Foot lesion : Patient Instru ctions Indication:Foot lesion Low back pain potentially as sociated with radiculopathy : How to access health information online Indication:Low back pain potentially associated with radiculopathy Low back pain potentially as sociated with radiculopathy : How to access health information online - Detail Indication:Low back pain potentially associated with radiculopathy Low back pain potentially as sociated with radiculopathy : Patient Instructions Indication:Low back pain potentially associated with radiculopathy Encounter for immunization : Patient Instructions Indication:Encounter for immunization Rash : Patient Instructions Indication:Rash Name Dates Details Nonsmoker : How to access he alth information online Indication:Nonsmoker Nonsmoker : How to access he alth information online - Detail Indication:Nonsmoker Nonsmoker : Patient Instruct ions Indication:Nonsmoker SOB (shortness of breath) on exertion : Patient Instructions Indication:SOB (shortness of breath) on exertion Hypercalcemia : How to acces s health information online Indication:Hypercalcemia Hypercalcemia : How to acces s health information online - Detail Indication:Hypercalcemia Hypercalcemia : Patient Inst ructions Indication:Hypercalcemia Acute myocardial infarction, unspecified DE type, unspecified artery : cardiovascular counseling Indication:Acute myocardial infarction, unspecified DE type, unspecified artery Hypertension : How to access health information online Indication:Hypertension Hypertension : How to access health information online - Detail Indication:Hypertension Hypertension : Patient Instr uctions Indication:Hypertension BMI 24.0-24.9, adult : How t o access health information online Indication:BMI 24.0-24.9, adult BMI 24.0-24.9, adult : How t o access health information online - Detail Indication:BMI 24.0-24.9, adult BMI 24.0-24.9, adult : Patie nt Instructions Indication:BMI 24.0-24.9, adult Body mass index (BMI) 24.0-2 4.9, adult : How to access health information online Indication:Body mass index (BMI) 24.0-24.9, adult Body mass index (BMI) 24.0-2 4.9, adult : How to access health information online - Detail Indication:Body mass index (BMI) 24.0-24.9, adult Body mass index (BMI) 24.0-2 4.9, adult : Patient Instructions Indication:Body mass index (BMI) 24.0-24.9, adult FATIGUE : Patient Instructio ns Indication:FATIGUE Abnormal glucose tolerance t est : How to access health information online Indication:Abnormal glucose tolerance test Abnormal glucose tolerance t est : How to access health information online - Detail Indication:Abnormal glucose tolerance test Abnormal glucose tolerance t est : Patient Instructions Indication:Abnormal glucose tolerance test Benign essential HTN : How t o access health information online Indication:Benign essential HTN Benign essential HTN : How t o access health information online - Detail Indication:Benign essential HTN Benign essential HTN : Patie nt Instructions Indication:Benign essential HTN Iliac bone pain : How to acc ess health information online Indication:Iliac bone pain Iliac bone pain : How to acc ess health information online - Detail Indication:Iliac bone pain Iliac bone pain : Patient In structions Indication:Iliac bone pain Foot lesion : How to access health information online Indication:Foot lesion Foot lesion : How to access health information online - Detail Indication:Foot lesion Foot lesion : Patient Instru ctions Indication:Foot lesion Low back pain potentially as sociated with radiculopathy : How to access health information online Indication:Low back pain potentially associated with radiculopathy Low back pain potentially as sociated with radiculopathy : How to access health information online - Detail Indication:Low back pain potentially associated with radiculopathy Low back pain potentially as sociated with radiculopathy : Patient Instructions Indication:Low back pain potentially associated with radiculopathy Encounter for immunization : Patient Instructions Indication:Encounter for immunization Rash : Patient Instructions Indication:Rash Name Dates Details Nonsmoker : How to access he alth information online Indication:Nonsmoker Nonsmoker : How to access he alth information online - Detail Indication:Nonsmoker Nonsmoker : Patient Instruct ions Indication:Nonsmoker SOB (shortness of breath) on exertion : Patient Instructions Indication:SOB (shortness of breath) on exertion Hypercalcemia : How to acces s health information online Indication:Hypercalcemia Hypercalcemia : How to acces s health information online - Detail Indication:Hypercalcemia Hypercalcemia : Patient Inst ructions Indication:Hypercalcemia Acute myocardial infarction, unspecified DE type, unspecified artery : cardiovascular counseling Indication:Acute myocardial infarction, unspecified DE type, unspecified artery Hypertension : How to access health information online Indication:Hypertension Hypertension : How to access health information online - Detail Indication:Hypertension Hypertension : Patient Instr uctions Indication:Hypertension BMI 24.0-24.9, adult : How t o access health information online Indication:BMI 24.0-24.9, adult BMI 24.0-24.9, adult : How t o access health information online - Detail Indication:BMI 24.0-24.9, adult BMI 24.0-24.9, adult : Patie nt Instructions Indication:BMI 24.0-24.9, adult Body mass index (BMI) 24.0-2 4.9, adult : How to access health information online Indication:Body mass index (BMI) 24.0-24.9, adult Body mass index (BMI) 24.0-2 4.9, adult : How to access health information online - Detail Indication:Body mass index (BMI) 24.0-24.9, adult Body mass index (BMI) 24.0-2 4.9, adult : Patient Instructions Indication:Body mass index (BMI) 24.0-24.9, adult FATIGUE : Patient Instructio ns Indication:FATIGUE Abnormal glucose tolerance t est : How to access health information online Indication:Abnormal glucose tolerance test Abnormal glucose tolerance t est : How to access health information online - Detail Indication:Abnormal glucose tolerance test Abnormal glucose tolerance t est : Patient Instructions Indication:Abnormal glucose tolerance test Benign essential HTN : How t o access health information online Indication:Benign essential HTN Benign essential HTN : How t o access health information online - Detail Indication:Benign essential HTN Benign essential HTN : Patie nt Instructions Indication:Benign essential HTN Iliac bone pain : How to acc ess health information online Indication:Iliac bone pain Iliac bone pain : How to acc ess health information online - Detail Indication:Iliac bone pain Iliac bone pain : Patient In structions Indication:Iliac bone pain Foot lesion : How to access health information online Indication:Foot lesion Foot lesion : How to access health information online - Detail Indication:Foot lesion Foot lesion : Patient Instru ctions Indication:Foot lesion Low back pain potentially as sociated with radiculopathy : How to access health information online Indication:Low back pain potentially associated with radiculopathy Low back pain potentially as sociated with radiculopathy : How to access health information online - Detail Indication:Low back pain potentially associated with radiculopathy Low back pain potentially as sociated with radiculopathy : Patient Instructions Indication:Low back pain potentially associated with radiculopathy Encounter for immunization : Patient Instructions Indication:Encounter for immunization Rash : Patient Instructions Indication:Rash Name Dates Details How to access health informa tion online Indication:Nonsmoker Start:29-May-2018 Instruction Type:Patient Education How to access health informa tion online - Detail Indication:Nonsmoker Start:29-May-2018 Instruction Type:Patient Education Patient Instructions Indication:Nonsmoker Start:29-May-2018 Instruction Type:Provider Instructions for Treatment How to access health informa tion online Indication:Nonsmoker Start:01-Mar-2018 Instruction Type:Patient Education How to access health informa tion online - Detail Indication:Nonsmoker Start:01-Mar-2018 Instruction Type:Patient Education Patient Instructions Indication:Nonsmoker Start:01-Mar-2018 Instruction Type:Provider Instructions for Treatment How to access health informa tion online Indication:Nonsmoker Start:21-Jan-2018 Instruction Type:Patient Education How to access health informa tion online - Detail Indication:Nonsmoker Start:21-Jan-2018 Instruction Type:Patient Education Patient Instructions Indication:Nonsmoker Start:21-Jan-2018 Instruction Type:Provider Instructions for Treatment How to access health informa tion online Indication:Nonsmoker Start:31-Dec-2017 Instruction Type:Patient Education How to access health informa tion online - Detail Indication:Nonsmoker Start:31-Dec-2017 Instruction Type:Patient Education Patient Instructions Indication:Nonsmoker Start:31-Dec-2017 Instruction Type:Provider Instructions for Treatment Patient Instructions Indication:SOB (shortness of breath) on exertion Start:28-Sep-2017 Instruction Type:Provider Instructions for Treatment How to access health informa tion online Indication:Hypercalcemia Start:23-Aug-2017 Instruction Type:Patient Education How to access health informa tion online - Detail Indication:Hypercalcemia Start:23-Aug-2017 Instruction Type:Patient Education Patient Instructions Indication:Hypercalcemia Start:23-Aug-2017 Instruction Type:Provider Instructions for Treatment cardiovascular counseling Indication:Acute myocardial infarction, unspecified DE type, unspecified artery Start:02-Aug-2017 Instruction Type:Provider Instructions for Treatment How to access health informa tion online Indication:Nonsmoker Start:02-Aug-2017 Instruction Type:Patient Education How to access health informa tion online - Detail Indication:Nonsmoker Start:02-Aug-2017 Instruction Type:Patient Education Patient Instructions Indication:Nonsmoker Start:02-Aug-2017 Instruction Type:Provider Instructions for Treatment How to access health informa tion online Indication:Nonsmoker Start:04-Jul-2017 Instruction Type:Patient Education How to access health informa tion online - Detail Indication:Nonsmoker Start:04-Jul-2017 Instruction Type:Patient Education Patient Instructions Indication:Nonsmoker Start:04-Jul-2017 Instruction Type:Provider Instructions for Treatment How to access health informa tion online Indication:Nonsmoker Start:25-Jun-2017 Instruction Type:Patient Education How to access health informa tion online - Detail Indication:Nonsmoker Start:25-Jun-2017 Instruction Type:Patient Education Patient Instructions Indication:Nonsmoker Start:25-Jun-2017 Instruction Type:Provider Instructions for Treatment How to access health informa tion online Indication:Hypertension Start:21-May-2017 Instruction Type:Patient Education How to access health informa tion online - Detail Indication:Hypertension Start:21-May-2017 Instruction Type:Patient Education Patient Instructions Indication:Hypertension Start:21-May-2017 Instruction Type:Provider Instructions for Treatment How to access health informa tion online Indication:BMI 24.0-24.9, adult Start:12-Apr-2017 Instruction Type:Patient Education How to access health informa tion online - Detail Indication:BMI 24.0-24.9, adult Start:12-Apr-2017 Instruction Type:Patient Education Patient Instructions Indication:BMI 24.0-24.9, adult Start:12-Apr-2017 Instruction Type:Provider Instructions for Treatment How to access health informa tion online Indication:Nonsmoker Start:05-Apr-2017 Instruction Type:Patient Education How to access health informa tion online - Detail Indication:Nonsmoker Start:05-Apr-2017 Instruction Type:Patient Education Patient Instructions Indication:Nonsmoker Start:05-Apr-2017 Instruction Type:Provider Instructions for Treatment How to access health informa tion online Indication:Nonsmoker Start:22-Mar-2017 Instruction Type:Patient Education How to access health informa tion online - Detail Indication:Nonsmoker Start:22-Mar-2017 Instruction Type:Patient Education Patient Instructions Indication:Nonsmoker Start:22-Mar-2017 Instruction Type:Provider Instructions for Treatment How to access health informa tion online Indication:BMI 24.0-24.9, adult Start:05-Feb-2017 Instruction Type:Patient Education How to access health informa tion online - Detail Indication:BMI 24.0-24.9, adult Start:05-Feb-2017 Instruction Type:Patient Education Patient Instructions Indication:BMI 24.0-24.9, adult Start:05-Feb-2017 Instruction Type:Provider Instructions for Treatment How to access health informa tion online Indication:Body mass index (BMI) 24.0-24.9, adult Start:17-Nov-2016 Instruction Type:Patient Education How to access health informa tion online - Detail Indication:Body mass index (BMI) 24.0-24.9, adult Start:17-Nov-2016 Instruction Type:Patient Education Patient Instructions Indication:Body mass index (BMI) 24.0-24.9, adult Start:17-Nov-2016 Instruction Type:Provider Instructions for Treatment How to access health informa tion online Indication:Nonsmoker Start:05-Oct-2016 Instruction Type:Patient Education How to access health informa tion online - Detail Indication:Nonsmoker Start:05-Oct-2016 Instruction Type:Patient Education Patient Instructions Indication:Nonsmoker Start:05-Oct-2016 Instruction Type:Provider Instructions for Treatment How to access health informa tion online Indication:Nonsmoker Start:30-Aug-2016 Instruction Type:Patient Education How to access health informa tion online - Detail Indication:Nonsmoker Start:30-Aug-2016 Instruction Type:Patient Education Patient Instructions Indication:Nonsmoker Start:30-Aug-2016 Instruction Type:Provider Instructions for Treatment How to access health informa tion online Indication:Nonsmoker Start:28-Aug-2016 Instruction Type:Patient Education How to access health informa tion online - Detail Indication:Nonsmoker Start:28-Aug-2016 Instruction Type:Patient Education Patient Instructions Indication:Nonsmoker Start:28-Aug-2016 Instruction Type:Provider Instructions for Treatment How to access health informa tion online Indication:Body mass index (BMI) 24.0-24.9, adult Start:29-Jun-2016 Instruction Type:Patient Education How to access health informa tion online - Detail Indication:Body mass index (BMI) 24.0-24.9, adult Start:29-Jun-2016 Instruction Type:Patient Education Patient Instructions Indication:Body mass index (BMI) 24.0-24.9, adult Start:29-Jun-2016 Instruction Type:Provider Instructions for Treatment How to access health informa tion online Indication:Nonsmoker Start:15-Jun-2016 Instruction Type:Patient Education How to access health informa tion online - Detail Indication:Nonsmoker Start:15-Jun-2016 Instruction Type:Patient Education Patient Instructions Indication:Nonsmoker Start:15-Jun-2016 Instruction Type:Provider Instructions for Treatment How to access health informa tion online Indication:Nonsmoker Start:25-May-2016 Instruction Type:Patient Education How to access health informa tion online - Detail Indication:Nonsmoker Start:25-May-2016 Instruction Type:Patient Education Patient Instructions Indication:Nonsmoker Start:25-May-2016 Instruction Type:Provider Instructions for Treatment Patient Instructions Indication:FATIGUE Start:06-Mar-2016 Instruction Type:Provider Instructions for Treatment How to access health informa tion online Indication:Nonsmoker Start:08-Feb-2016 Instruction Type:Patient Education How to access health informa tion online - Detail Indication:Nonsmoker Start:08-Feb-2016 Instruction Type:Patient Education Patient Instructions Indication:Nonsmoker Start:08-Feb-2016 Instruction Type:Provider Instructions for Treatment How to access health informa tion online Indication:Abnormal glucose tolerance test Start:20-Jan-2016 Instruction Type:Patient Education How to access health informa tion online - Detail Indication:Abnormal glucose tolerance test Start:20-Jan-2016 Instruction Type:Patient Education Patient Instructions Indication:Abnormal glucose tolerance test Start:20-Jan-2016 Instruction Type:Provider Instructions for Treatment How to access health informa tion online Indication:Benign essential HTN Start:11-Aug-2015 Instruction Type:Patient Education How to access health informa tion online - Detail Indication:Benign essential HTN Start:11-Aug-2015 Instruction Type:Patient Education Patient Instructions Indication:Benign essential HTN Start:11-Aug-2015 Instruction Type:Provider Instructions for Treatment How to access health informa tion online Indication:Iliac bone pain Start:17-Feb-2015 Instruction Type:Patient Education How to access health informa tion online - Detail Indication:Iliac bone pain Start:17-Feb-2015 Instruction Type:Patient Education Patient Instructions Indication:Iliac bone pain Start:17-Feb-2015 Instruction Type:Provider Instructions for Treatment How to access health informa tion online Indication:Foot lesion Start:10-Dec-2014 Instruction Type:Patient Education How to access health informa tion online - Detail Indication:Foot lesion Start:10-Dec-2014 Instruction Type:Patient Education Patient Instructions Indication:Foot lesion Start:10-Dec-2014 Instruction Type:Provider Instructions for Treatment How to access health informa tion online Indication:Foot lesion Start:02-Dec-2014 Instruction Type:Patient Education How to access health informa tion online - Detail Indication:Foot lesion Start:02-Dec-2014 Instruction Type:Patient Education Patient Instructions Indication:Foot lesion Start:02-Dec-2014 Instruction Type:Provider Instructions for Treatment How to access health informa tion online Indication:Low back pain potentially associated with radiculopathy Start:26-Nov-2014 Instruction Type:Patient Education How to access health informa tion online - Detail Indication:Low back pain potentially associated with radiculopathy Start:26-Nov-2014 Instruction Type:Patient Education Patient Instructions Indication:Low back pain potentially associated with radiculopathy Start:26-Nov-2014 Instruction Type:Provider Instructions for Treatment How to access health informa tion online Indication:Low back pain potentially associated with radiculopathy Start:12-Nov-2014 Instruction Type:Patient Education How to access health informa tion online - Detail Indication:Low back pain potentially associated with radiculopathy Start:12-Nov-2014 Instruction Type:Patient Education Patient Instructions Indication:Low back pain potentially associated with radiculopathy Start:12-Nov-2014 Instruction Type:Provider Instructions for Treatment Patient Instructions Indication:Encounter for immunization Start:11-Jun-2013 Instruction Type:Provider Instructions for Treatment Patient Instructions Indication:FATIGUE Start:30-Apr-2013 Instruction Type:Provider Instructions for Treatment Patient Instructions Indication:FATIGUE Start:27-Dec-2012 Instruction Type:Provider Instructions for Treatment Patient Instructions Indication:Abnormal glucose tolerance test Start:07-Oct-2012 Instruction Type:Provider Instructions for Treatment Patient Instructions Indication:Rash Start:05-Jul-2012 Instruction Type:Provider Instructions for Treatment Patient Instructions Indication:Rash Start:11-Jun-2012 Instruction Type:Provider Instructions for Treatment Patient Instructions Indication:Abnormal glucose tolerance test Start:07-Jun-2012 Instruction Type:Provider Instructions for Treatment Name Dates Details How to access health informa tion online Indication:Nonsmoker Start:25-Oct-2018 Instruction Type:Patient Education How to access health informa tion online - Detail Indication:Nonsmoker Start:25-Oct-2018 Instruction Type:Patient Education Patient Instructions Indication:Nonsmoker Start:25-Oct-2018 Instruction Type:Provider Instructions for Treatment How to access health informa tion online Indication:Nonsmoker Start:29-May-2018 Instruction Type:Patient Education How to access health informa tion online - Detail Indication:Nonsmoker Start:29-May-2018 Instruction Type:Patient Education Patient Instructions Indication:Nonsmoker Start:29-May-2018 Instruction Type:Provider Instructions for Treatment How to access health informa tion online Indication:Nonsmoker Start:01-Mar-2018 Instruction Type:Patient Education How to access health informa tion online - Detail Indication:Nonsmoker Start:01-Mar-2018 Instruction Type:Patient Education Patient Instructions Indication:Nonsmoker Start:01-Mar-2018 Instruction Type:Provider Instructions for Treatment How to access health informa tion online Indication:Nonsmoker Start:21-Jan-2018 Instruction Type:Patient Education How to access health informa tion online - Detail Indication:Nonsmoker Start:21-Jan-2018 Instruction Type:Patient Education Patient Instructions Indication:Nonsmoker Start:21-Jan-2018 Instruction Type:Provider Instructions for Treatment How to access health informa tion online Indication:Nonsmoker Start:31-Dec-2017 Instruction Type:Patient Education How to access health informa tion online - Detail Indication:Nonsmoker Start:31-Dec-2017 Instruction Type:Patient Education Patient Instructions Indication:Nonsmoker Start:31-Dec-2017 Instruction Type:Provider Instructions for Treatment Patient Instructions Indication:SOB (shortness of breath) on exertion Start:28-Sep-2017 Instruction Type:Provider Instructions for Treatment How to access health informa tion online Indication:Hypercalcemia Start:23-Aug-2017 Instruction Type:Patient Education How to access health informa tion online - Detail Indication:Hypercalcemia Start:23-Aug-2017 Instruction Type:Patient Education Patient Instructions Indication:Hypercalcemia Start:23-Aug-2017 Instruction Type:Provider Instructions for Treatment cardiovascular counseling Indication:Acute myocardial infarction, unspecified DE type, unspecified artery Start:02-Aug-2017 Instruction Type:Provider Instructions for Treatment How to access health informa tion online Indication:Nonsmoker Start:02-Aug-2017 Instruction Type:Patient Education How to access health informa tion online - Detail Indication:Nonsmoker Start:02-Aug-2017 Instruction Type:Patient Education Patient Instructions Indication:Nonsmoker Start:02-Aug-2017 Instruction Type:Provider Instructions for Treatment How to access health informa tion online Indication:Nonsmoker Start:04-Jul-2017 Instruction Type:Patient Education How to access health informa tion online - Detail Indication:Nonsmoker Start:04-Jul-2017 Instruction Type:Patient Education Patient Instructions Indication:Nonsmoker Start:04-Jul-2017 Instruction Type:Provider Instructions for Treatment How to access health informa tion online Indication:Nonsmoker Start:25-Jun-2017 Instruction Type:Patient Education How to access health informa tion online - Detail Indication:Nonsmoker Start:25-Jun-2017 Instruction Type:Patient Education Patient Instructions Indication:Nonsmoker Start:25-Jun-2017 Instruction Type:Provider Instructions for Treatment How to access health informa tion online Indication:Hypertension Start:21-May-2017 Instruction Type:Patient Education How to access health informa tion online - Detail Indication:Hypertension Start:21-May-2017 Instruction Type:Patient Education Patient Instructions Indication:Hypertension Start:21-May-2017 Instruction Type:Provider Instructions for Treatment How to access health informa tion online Indication:BMI 24.0-24.9, adult Start:12-Apr-2017 Instruction Type:Patient Education How to access health informa tion online - Detail Indication:BMI 24.0-24.9, adult Start:12-Apr-2017 Instruction Type:Patient Education Patient Instructions Indication:BMI 24.0-24.9, adult Start:12-Apr-2017 Instruction Type:Provider Instructions for Treatment How to access health informa tion online Indication:Nonsmoker Start:05-Apr-2017 Instruction Type:Patient Education How to access health informa tion online - Detail Indication:Nonsmoker Start:05-Apr-2017 Instruction Type:Patient Education Patient Instructions Indication:Nonsmoker Start:05-Apr-2017 Instruction Type:Provider Instructions for Treatment How to access health informa tion online Indication:Nonsmoker Start:22-Mar-2017 Instruction Type:Patient Education How to access health informa tion online - Detail Indication:Nonsmoker Start:22-Mar-2017 Instruction Type:Patient Education Patient Instructions Indication:Nonsmoker Start:22-Mar-2017 Instruction Type:Provider Instructions for Treatment How to access health informa tion online Indication:BMI 24.0-24.9, adult Start:05-Feb-2017 Instruction Type:Patient Education How to access health informa tion online - Detail Indication:BMI 24.0-24.9, adult Start:05-Feb-2017 Instruction Type:Patient Education Patient Instructions Indication:BMI 24.0-24.9, adult Start:05-Feb-2017 Instruction Type:Provider Instructions for Treatment How to access health informa tion online Indication:Body mass index (BMI) 24.0-24.9, adult Start:17-Nov-2016 Instruction Type:Patient Education How to access health informa tion online - Detail Indication:Body mass index (BMI) 24.0-24.9, adult Start:17-Nov-2016 Instruction Type:Patient Education Patient Instructions Indication:Body mass index (BMI) 24.0-24.9, adult Start:17-Nov-2016 Instruction Type:Provider Instructions for Treatment How to access health informa tion online Indication:Nonsmoker Start:05-Oct-2016 Instruction Type:Patient Education How to access health informa tion online - Detail Indication:Nonsmoker Start:05-Oct-2016 Instruction Type:Patient Education Patient Instructions Indication:Nonsmoker Start:05-Oct-2016 Instruction Type:Provider Instructions for Treatment How to access health informa tion online Indication:Nonsmoker Start:30-Aug-2016 Instruction Type:Patient Education How to access health informa tion online - Detail Indication:Nonsmoker Start:30-Aug-2016 Instruction Type:Patient Education Patient Instructions Indication:Nonsmoker Start:30-Aug-2016 Instruction Type:Provider Instructions for Treatment How to access health informa tion online Indication:Nonsmoker Start:28-Aug-2016 Instruction Type:Patient Education How to access health informa tion online - Detail Indication:Nonsmoker Start:28-Aug-2016 Instruction Type:Patient Education Patient Instructions Indication:Nonsmoker Start:28-Aug-2016 Instruction Type:Provider Instructions for Treatment How to access health informa tion online Indication:Body mass index (BMI) 24.0-24.9, adult Start:29-Jun-2016 Instruction Type:Patient Education How to access health informa tion online - Detail Indication:Body mass index (BMI) 24.0-24.9, adult Start:29-Jun-2016 Instruction Type:Patient Education Patient Instructions Indication:Body mass index (BMI) 24.0-24.9, adult Start:29-Jun-2016 Instruction Type:Provider Instructions for Treatment How to access health informa tion online Indication:Nonsmoker Start:15-Jun-2016 Instruction Type:Patient Education How to access health informa tion online - Detail Indication:Nonsmoker Start:15-Jun-2016 Instruction Type:Patient Education Patient Instructions Indication:Nonsmoker Start:15-Jun-2016 Instruction Type:Provider Instructions for Treatment How to access health informa tion online Indication:Nonsmoker Start:25-May-2016 Instruction Type:Patient Education How to access health informa tion online - Detail Indication:Nonsmoker Start:25-May-2016 Instruction Type:Patient Education Patient Instructions Indication:Nonsmoker Start:25-May-2016 Instruction Type:Provider Instructions for Treatment Patient Instructions Indication:FATIGUE Start:06-Mar-2016 Instruction Type:Provider Instructions for Treatment How to access health informa tion online Indication:Nonsmoker Start:08-Feb-2016 Instruction Type:Patient Education How to access health informa tion online - Detail Indication:Nonsmoker Start:08-Feb-2016 Instruction Type:Patient Education Patient Instructions Indication:Nonsmoker Start:08-Feb-2016 Instruction Type:Provider Instructions for Treatment How to access health informa tion online Indication:Abnormal glucose tolerance test Start:20-Jan-2016 Instruction Type:Patient Education How to access health informa tion online - Detail Indication:Abnormal glucose tolerance test Start:20-Jan-2016 Instruction Type:Patient Education Patient Instructions Indication:Abnormal glucose tolerance test Start:20-Jan-2016 Instruction Type:Provider Instructions for Treatment How to access health informa tion online Indication:Benign essential HTN Start:11-Aug-2015 Instruction Type:Patient Education How to access health informa tion online - Detail Indication:Benign essential HTN Start:11-Aug-2015 Instruction Type:Patient Education Patient Instructions Indication:Benign essential HTN Start:11-Aug-2015 Instruction Type:Provider Instructions for Treatment How to access health informa tion online Indication:Iliac bone pain Start:17-Feb-2015 Instruction Type:Patient Education How to access health informa tion online - Detail Indication:Iliac bone pain Start:17-Feb-2015 Instruction Type:Patient Education Patient Instructions Indication:Iliac bone pain Start:17-Feb-2015 Instruction Type:Provider Instructions for Treatment How to access health informa tion online Indication:Foot lesion Start:10-Dec-2014 Instruction Type:Patient Education How to access health informa tion online - Detail Indication:Foot lesion Start:10-Dec-2014 Instruction Type:Patient Education Patient Instructions Indication:Foot lesion Start:10-Dec-2014 Instruction Type:Provider Instructions for Treatment How to access health informa tion online Indication:Foot lesion Start:02-Dec-2014 Instruction Type:Patient Education How to access health informa tion online - Detail Indication:Foot lesion Start:02-Dec-2014 Instruction Type:Patient Education Patient Instructions Indication:Foot lesion Start:02-Dec-2014 Instruction Type:Provider Instructions for Treatment How to access health informa tion online Indication:Low back pain potentially associated with radiculopathy Start:26-Nov-2014 Instruction Type:Patient Education How to access health informa tion online - Detail Indication:Low back pain potentially associated with radiculopathy Start:26-Nov-2014 Instruction Type:Patient Education Patient Instructions Indication:Low back pain potentially associated with radiculopathy Start:26-Nov-2014 Instruction Type:Provider Instructions for Treatment How to access health informa tion online Indication:Low back pain potentially associated with radiculopathy Start:12-Nov-2014 Instruction Type:Patient Education How to access health informa tion online - Detail Indication:Low back pain potentially associated with radiculopathy Start:12-Nov-2014 Instruction Type:Patient Education Patient Instructions Indication:Low back pain potentially associated with radiculopathy Start:12-Nov-2014 Instruction Type:Provider Instructions for Treatment Patient Instructions Indication:Encounter for immunization Start:11-Jun-2013 Instruction Type:Provider Instructions for Treatment Patient Instructions Indication:FATIGUE Start:30-Apr-2013 Instruction Type:Provider Instructions for Treatment Patient Instructions Indication:FATIGUE Start:27-Dec-2012 Instruction Type:Provider Instructions for Treatment Patient Instructions Indication:Abnormal glucose tolerance test Start:07-Oct-2012 Instruction Type:Provider Instructions for Treatment Patient Instructions Indication:Rash Start:05-Jul-2012 Instruction Type:Provider Instructions for Treatment Patient Instructions Indication:Rash Start:11-Jun-2012 Instruction Type:Provider Instructions for Treatment Patient Instructions Indication:Abnormal glucose tolerance test Start:07-Jun-2012 Instruction Type:Provider Instructions for Treatment Name Dates Details How to access health informa tion online Indication:Nonsmoker Start:25-Oct-2018 Instruction Type:Patient Education How to access health informa tion online - Detail Indication:Nonsmoker Start:25-Oct-2018 Instruction Type:Patient Education Patient Instructions Indication:Nonsmoker Start:25-Oct-2018 Instruction Type:Provider Instructions for Treatment How to access health informa tion online Indication:Nonsmoker Start:29-May-2018 Instruction Type:Patient Education How to access health informa tion online - Detail Indication:Nonsmoker Start:29-May-2018 Instruction Type:Patient Education Patient Instructions Indication:Nonsmoker Start:29-May-2018 Instruction Type:Provider Instructions for Treatment How to access health informa tion online Indication:Nonsmoker Start:01-Mar-2018 Instruction Type:Patient Education How to access health informa tion online - Detail Indication:Nonsmoker Start:01-Mar-2018 Instruction Type:Patient Education Patient Instructions Indication:Nonsmoker Start:01-Mar-2018 Instruction Type:Provider Instructions for Treatment How to access health informa tion online Indication:Nonsmoker Start:21-Jan-2018 Instruction Type:Patient Education How to access health informa tion online - Detail Indication:Nonsmoker Start:21-Jan-2018 Instruction Type:Patient Education Patient Instructions Indication:Nonsmoker Start:21-Jan-2018 Instruction Type:Provider Instructions for Treatment How to access health informa tion online Indication:Nonsmoker Start:31-Dec-2017 Instruction Type:Patient Education How to access health informa tion online - Detail Indication:Nonsmoker Start:31-Dec-2017 Instruction Type:Patient Education Patient Instructions Indication:Nonsmoker Start:31-Dec-2017 Instruction Type:Provider Instructions for Treatment Patient Instructions Indication:SOB (shortness of breath) on exertion Start:28-Sep-2017 Instruction Type:Provider Instructions for Treatment How to access health informa tion online Indication:Hypercalcemia Start:23-Aug-2017 Instruction Type:Patient Education How to access health informa tion online - Detail Indication:Hypercalcemia Start:23-Aug-2017 Instruction Type:Patient Education Patient Instructions Indication:Hypercalcemia Start:23-Aug-2017 Instruction Type:Provider Instructions for Treatment cardiovascular counseling Indication:Acute myocardial infarction, unspecified DE type, unspecified artery Start:02-Aug-2017 Instruction Type:Provider Instructions for Treatment How to access health informa tion online Indication:Nonsmoker Start:02-Aug-2017 Instruction Type:Patient Education How to access health informa tion online - Detail Indication:Nonsmoker Start:02-Aug-2017 Instruction Type:Patient Education Patient Instructions Indication:Nonsmoker Start:02-Aug-2017 Instruction Type:Provider Instructions for Treatment How to access health informa tion online Indication:Nonsmoker Start:04-Jul-2017 Instruction Type:Patient Education How to access health informa tion online - Detail Indication:Nonsmoker Start:04-Jul-2017 Instruction Type:Patient Education Patient Instructions Indication:Nonsmoker Start:04-Jul-2017 Instruction Type:Provider Instructions for Treatment How to access health informa tion online Indication:Nonsmoker Start:25-Jun-2017 Instruction Type:Patient Education How to access health informa tion online - Detail Indication:Nonsmoker Start:25-Jun-2017 Instruction Type:Patient Education Patient Instructions Indication:Nonsmoker Start:25-Jun-2017 Instruction Type:Provider Instructions for Treatment How to access health informa tion online Indication:Hypertension Start:21-May-2017 Instruction Type:Patient Education How to access health informa tion online - Detail Indication:Hypertension Start:21-May-2017 Instruction Type:Patient Education Patient Instructions Indication:Hypertension Start:21-May-2017 Instruction Type:Provider Instructions for Treatment How to access health informa tion online Indication:BMI 24.0-24.9, adult Start:12-Apr-2017 Instruction Type:Patient Education How to access health informa tion online - Detail Indication:BMI 24.0-24.9, adult Start:12-Apr-2017 Instruction Type:Patient Education Patient Instructions Indication:BMI 24.0-24.9, adult Start:12-Apr-2017 Instruction Type:Provider Instructions for Treatment How to access health informa tion online Indication:Nonsmoker Start:05-Apr-2017 Instruction Type:Patient Education How to access health informa tion online - Detail Indication:Nonsmoker Start:05-Apr-2017 Instruction Type:Patient Education Patient Instructions Indication:Nonsmoker Start:05-Apr-2017 Instruction Type:Provider Instructions for Treatment How to access health informa tion online Indication:Nonsmoker Start:22-Mar-2017 Instruction Type:Patient Education How to access health informa tion online - Detail Indication:Nonsmoker Start:22-Mar-2017 Instruction Type:Patient Education Patient Instructions Indication:Nonsmoker Start:22-Mar-2017 Instruction Type:Provider Instructions for Treatment How to access health informa tion online Indication:BMI 24.0-24.9, adult Start:05-Feb-2017 Instruction Type:Patient Education How to access health informa tion online - Detail Indication:BMI 24.0-24.9, adult Start:05-Feb-2017 Instruction Type:Patient Education Patient Instructions Indication:BMI 24.0-24.9, adult Start:05-Feb-2017 Instruction Type:Provider Instructions for Treatment How to access health informa tion online Indication:Body mass index (BMI) 24.0-24.9, adult Start:17-Nov-2016 Instruction Type:Patient Education How to access health informa tion online - Detail Indication:Body mass index (BMI) 24.0-24.9, adult Start:17-Nov-2016 Instruction Type:Patient Education Patient Instructions Indication:Body mass index (BMI) 24.0-24.9, adult Start:17-Nov-2016 Instruction Type:Provider Instructions for Treatment How to access health informa tion online Indication:Nonsmoker Start:05-Oct-2016 Instruction Type:Patient Education How to access health informa tion online - Detail Indication:Nonsmoker Start:05-Oct-2016 Instruction Type:Patient Education Patient Instructions Indication:Nonsmoker Start:05-Oct-2016 Instruction Type:Provider Instructions for Treatment How to access health informa tion online Indication:Nonsmoker Start:30-Aug-2016 Instruction Type:Patient Education How to access health informa tion online - Detail Indication:Nonsmoker Start:30-Aug-2016 Instruction Type:Patient Education Patient Instructions Indication:Nonsmoker Start:30-Aug-2016 Instruction Type:Provider Instructions for Treatment How to access health informa tion online Indication:Nonsmoker Start:28-Aug-2016 Instruction Type:Patient Education How to access health informa tion online - Detail Indication:Nonsmoker Start:28-Aug-2016 Instruction Type:Patient Education Patient Instructions Indication:Nonsmoker Start:28-Aug-2016 Instruction Type:Provider Instructions for Treatment How to access health informa tion online Indication:Body mass index (BMI) 24.0-24.9, adult Start:29-Jun-2016 Instruction Type:Patient Education How to access health informa tion online - Detail Indication:Body mass index (BMI) 24.0-24.9, adult Start:29-Jun-2016 Instruction Type:Patient Education Patient Instructions Indication:Body mass index (BMI) 24.0-24.9, adult Start:29-Jun-2016 Instruction Type:Provider Instructions for Treatment How to access health informa tion online Indication:Nonsmoker Start:15-Jun-2016 Instruction Type:Patient Education How to access health informa tion online - Detail Indication:Nonsmoker Start:15-Jun-2016 Instruction Type:Patient Education Patient Instructions Indication:Nonsmoker Start:15-Jun-2016 Instruction Type:Provider Instructions for Treatment How to access health informa tion online Indication:Nonsmoker Start:25-May-2016 Instruction Type:Patient Education How to access health informa tion online - Detail Indication:Nonsmoker Start:25-May-2016 Instruction Type:Patient Education Patient Instructions Indication:Nonsmoker Start:25-May-2016 Instruction Type:Provider Instructions for Treatment Patient Instructions Indication:FATIGUE Start:06-Mar-2016 Instruction Type:Provider Instructions for Treatment How to access health informa tion online Indication:Nonsmoker Start:08-Feb-2016 Instruction Type:Patient Education How to access health informa tion online - Detail Indication:Nonsmoker Start:08-Feb-2016 Instruction Type:Patient Education Patient Instructions Indication:Nonsmoker Start:08-Feb-2016 Instruction Type:Provider Instructions for Treatment How to access health informa tion online Indication:Abnormal glucose tolerance test Start:20-Jan-2016 Instruction Type:Patient Education How to access health informa tion online - Detail Indication:Abnormal glucose tolerance test Start:20-Jan-2016 Instruction Type:Patient Education Patient Instructions Indication:Abnormal glucose tolerance test Start:20-Jan-2016 Instruction Type:Provider Instructions for Treatment How to access health informa tion online Indication:Benign essential HTN Start:11-Aug-2015 Instruction Type:Patient Education How to access health informa tion online - Detail Indication:Benign essential HTN Start:11-Aug-2015 Instruction Type:Patient Education Patient Instructions Indication:Benign essential HTN Start:11-Aug-2015 Instruction Type:Provider Instructions for Treatment How to access health informa tion online Indication:Iliac bone pain Start:17-Feb-2015 Instruction Type:Patient Education How to access health informa tion online - Detail Indication:Iliac bone pain Start:17-Feb-2015 Instruction Type:Patient Education Patient Instructions Indication:Iliac bone pain Start:17-Feb-2015 Instruction Type:Provider Instructions for Treatment How to access health informa tion online Indication:Foot lesion Start:10-Dec-2014 Instruction Type:Patient Education How to access health informa tion online - Detail Indication:Foot lesion Start:10-Dec-2014 Instruction Type:Patient Education Patient Instructions Indication:Foot lesion Start:10-Dec-2014 Instruction Type:Provider Instructions for Treatment How to access health informa tion online Indication:Foot lesion Start:02-Dec-2014 Instruction Type:Patient Education How to access health informa tion online - Detail Indication:Foot lesion Start:02-Dec-2014 Instruction Type:Patient Education Patient Instructions Indication:Foot lesion Start:02-Dec-2014 Instruction Type:Provider Instructions for Treatment How to access health informa tion online Indication:Low back pain potentially associated with radiculopathy Start:26-Nov-2014 Instruction Type:Patient Education How to access health informa tion online - Detail Indication:Low back pain potentially associated with radiculopathy Start:26-Nov-2014 Instruction Type:Patient Education Patient Instructions Indication:Low back pain potentially associated with radiculopathy Start:26-Nov-2014 Instruction Type:Provider Instructions for Treatment How to access health informa tion online Indication:Low back pain potentially associated with radiculopathy Start:12-Nov-2014 Instruction Type:Patient Education How to access health informa tion online - Detail Indication:Low back pain potentially associated with radiculopathy Start:12-Nov-2014 Instruction Type:Patient Education Patient Instructions Indication:Low back pain potentially associated with radiculopathy Start:12-Nov-2014 Instruction Type:Provider Instructions for Treatment Patient Instructions Indication:Encounter for immunization Start:11-Jun-2013 Instruction Type:Provider Instructions for Treatment Patient Instructions Indication:FATIGUE Start:30-Apr-2013 Instruction Type:Provider Instructions for Treatment Patient Instructions Indication:FATIGUE Start:27-Dec-2012 Instruction Type:Provider Instructions for Treatment Patient Instructions Indication:Abnormal glucose tolerance test Start:07-Oct-2012 Instruction Type:Provider Instructions for Treatment Patient Instructions Indication:Rash Start:05-Jul-2012 Instruction Type:Provider Instructions for Treatment Patient Instructions Indication:Rash Start:11-Jun-2012 Instruction Type:Provider Instructions for Treatment Patient Instructions Indication:Abnormal glucose tolerance test Start:07-Jun-2012 Instruction Type:Provider Instructions for Treatment Name Dates Details How to access health informa tion online Indication:Nonsmoker Start:08-Nov-2018 Instruction Type:Patient Education How to access health informa tion online - Detail Indication:Nonsmoker Start:08-Nov-2018 Instruction Type:Patient Education Patient Instructions Indication:Nonsmoker Start:08-Nov-2018 Instruction Type:Provider Instructions for Treatment How to access health informa tion online Indication:Nonsmoker Start:25-Oct-2018 Instruction Type:Patient Education How to access health informa tion online - Detail Indication:Nonsmoker Start:25-Oct-2018 Instruction Type:Patient Education Patient Instructions Indication:Nonsmoker Start:25-Oct-2018 Instruction Type:Provider Instructions for Treatment How to access health informa tion online Indication:Nonsmoker Start:29-May-2018 Instruction Type:Patient Education How to access health informa tion online - Detail Indication:Nonsmoker Start:29-May-2018 Instruction Type:Patient Education Patient Instructions Indication:Nonsmoker Start:29-May-2018 Instruction Type:Provider Instructions for Treatment How to access health informa tion online Indication:Nonsmoker Start:01-Mar-2018 Instruction Type:Patient Education How to access health informa tion online - Detail Indication:Nonsmoker Start:01-Mar-2018 Instruction Type:Patient Education Patient Instructions Indication:Nonsmoker Start:01-Mar-2018 Instruction Type:Provider Instructions for Treatment How to access health informa tion online Indication:Nonsmoker Start:21-Jan-2018 Instruction Type:Patient Education How to access health informa tion online - Detail Indication:Nonsmoker Start:21-Jan-2018 Instruction Type:Patient Education Patient Instructions Indication:Nonsmoker Start:21-Jan-2018 Instruction Type:Provider Instructions for Treatment How to access health informa tion online Indication:Nonsmoker Start:31-Dec-2017 Instruction Type:Patient Education How to access health informa tion online - Detail Indication:Nonsmoker Start:31-Dec-2017 Instruction Type:Patient Education Patient Instructions Indication:Nonsmoker Start:31-Dec-2017 Instruction Type:Provider Instructions for Treatment Patient Instructions Indication:SOB (shortness of breath) on exertion Start:28-Sep-2017 Instruction Type:Provider Instructions for Treatment How to access health informa tion online Indication:Hypercalcemia Start:23-Aug-2017 Instruction Type:Patient Education How to access health informa tion online - Detail Indication:Hypercalcemia Start:23-Aug-2017 Instruction Type:Patient Education Patient Instructions Indication:Hypercalcemia Start:23-Aug-2017 Instruction Type:Provider Instructions for Treatment cardiovascular counseling Indication:Acute myocardial infarction, unspecified DE type, unspecified artery Start:02-Aug-2017 Instruction Type:Provider Instructions for Treatment How to access health informa tion online Indication:Nonsmoker Start:02-Aug-2017 Instruction Type:Patient Education How to access health informa tion online - Detail Indication:Nonsmoker Start:02-Aug-2017 Instruction Type:Patient Education Patient Instructions Indication:Nonsmoker Start:02-Aug-2017 Instruction Type:Provider Instructions for Treatment How to access health informa tion online Indication:Nonsmoker Start:04-Jul-2017 Instruction Type:Patient Education How to access health informa tion online - Detail Indication:Nonsmoker Start:04-Jul-2017 Instruction Type:Patient Education Patient Instructions Indication:Nonsmoker Start:04-Jul-2017 Instruction Type:Provider Instructions for Treatment How to access health informa tion online Indication:Nonsmoker Start:25-Jun-2017 Instruction Type:Patient Education How to access health informa tion online - Detail Indication:Nonsmoker Start:25-Jun-2017 Instruction Type:Patient Education Patient Instructions Indication:Nonsmoker Start:25-Jun-2017 Instruction Type:Provider Instructions for Treatment How to access health informa tion online Indication:Hypertension Start:21-May-2017 Instruction Type:Patient Education How to access health informa tion online - Detail Indication:Hypertension Start:21-May-2017 Instruction Type:Patient Education Patient Instructions Indication:Hypertension Start:21-May-2017 Instruction Type:Provider Instructions for Treatment How to access health informa tion online Indication:BMI 24.0-24.9, adult Start:12-Apr-2017 Instruction Type:Patient Education How to access health informa tion online - Detail Indication:BMI 24.0-24.9, adult Start:12-Apr-2017 Instruction Type:Patient Education Patient Instructions Indication:BMI 24.0-24.9, adult Start:12-Apr-2017 Instruction Type:Provider Instructions for Treatment How to access health informa tion online Indication:Nonsmoker Start:05-Apr-2017 Instruction Type:Patient Education How to access health informa tion online - Detail Indication:Nonsmoker Start:05-Apr-2017 Instruction Type:Patient Education Patient Instructions Indication:Nonsmoker Start:05-Apr-2017 Instruction Type:Provider Instructions for Treatment How to access health informa tion online Indication:Nonsmoker Start:22-Mar-2017 Instruction Type:Patient Education How to access health informa tion online - Detail Indication:Nonsmoker Start:22-Mar-2017 Instruction Type:Patient Education Patient Instructions Indication:Nonsmoker Start:22-Mar-2017 Instruction Type:Provider Instructions for Treatment How to access health informa tion online Indication:BMI 24.0-24.9, adult Start:05-Feb-2017 Instruction Type:Patient Education How to access health informa tion online - Detail Indication:BMI 24.0-24.9, adult Start:05-Feb-2017 Instruction Type:Patient Education Patient Instructions Indication:BMI 24.0-24.9, adult Start:05-Feb-2017 Instruction Type:Provider Instructions for Treatment How to access health informa tion online Indication:Body mass index (BMI) 24.0-24.9, adult Start:17-Nov-2016 Instruction Type:Patient Education How to access health informa tion online - Detail Indication:Body mass index (BMI) 24.0-24.9, adult Start:17-Nov-2016 Instruction Type:Patient Education Patient Instructions Indication:Body mass index (BMI) 24.0-24.9, adult Start:17-Nov-2016 Instruction Type:Provider Instructions for Treatment How to access health informa tion online Indication:Nonsmoker Start:05-Oct-2016 Instruction Type:Patient Education How to access health informa tion online - Detail Indication:Nonsmoker Start:05-Oct-2016 Instruction Type:Patient Education Patient Instructions Indication:Nonsmoker Start:05-Oct-2016 Instruction Type:Provider Instructions for Treatment How to access health informa tion online Indication:Nonsmoker Start:30-Aug-2016 Instruction Type:Patient Education How to access health informa tion online - Detail Indication:Nonsmoker Start:30-Aug-2016 Instruction Type:Patient Education Patient Instructions Indication:Nonsmoker Start:30-Aug-2016 Instruction Type:Provider Instructions for Treatment How to access health informa tion online Indication:Nonsmoker Start:28-Aug-2016 Instruction Type:Patient Education How to access health informa tion online - Detail Indication:Nonsmoker Start:28-Aug-2016 Instruction Type:Patient Education Patient Instructions Indication:Nonsmoker Start:28-Aug-2016 Instruction Type:Provider Instructions for Treatment How to access health informa tion online Indication:Body mass index (BMI) 24.0-24.9, adult Start:29-Jun-2016 Instruction Type:Patient Education How to access health informa tion online - Detail Indication:Body mass index (BMI) 24.0-24.9, adult Start:29-Jun-2016 Instruction Type:Patient Education Patient Instructions Indication:Body mass index (BMI) 24.0-24.9, adult Start:29-Jun-2016 Instruction Type:Provider Instructions for Treatment How to access health informa tion online Indication:Nonsmoker Start:15-Jun-2016 Instruction Type:Patient Education How to access health informa tion online - Detail Indication:Nonsmoker Start:15-Jun-2016 Instruction Type:Patient Education Patient Instructions Indication:Nonsmoker Start:15-Jun-2016 Instruction Type:Provider Instructions for Treatment How to access health informa tion online Indication:Nonsmoker Start:25-May-2016 Instruction Type:Patient Education How to access health informa tion online - Detail Indication:Nonsmoker Start:25-May-2016 Instruction Type:Patient Education Patient Instructions Indication:Nonsmoker Start:25-May-2016 Instruction Type:Provider Instructions for Treatment Patient Instructions Indication:FATIGUE Start:06-Mar-2016 Instruction Type:Provider Instructions for Treatment How to access health informa tion online Indication:Nonsmoker Start:08-Feb-2016 Instruction Type:Patient Education How to access health informa tion online - Detail Indication:Nonsmoker Start:08-Feb-2016 Instruction Type:Patient Education Patient Instructions Indication:Nonsmoker Start:08-Feb-2016 Instruction Type:Provider Instructions for Treatment How to access health informa tion online Indication:Abnormal glucose tolerance test Start:20-Jan-2016 Instruction Type:Patient Education How to access health informa tion online - Detail Indication:Abnormal glucose tolerance test Start:20-Jan-2016 Instruction Type:Patient Education Patient Instructions Indication:Abnormal glucose tolerance test Start:20-Jan-2016 Instruction Type:Provider Instructions for Treatment How to access health informa tion online Indication:Benign essential HTN Start:11-Aug-2015 Instruction Type:Patient Education How to access health informa tion online - Detail Indication:Benign essential HTN Start:11-Aug-2015 Instruction Type:Patient Education Patient Instructions Indication:Benign essential HTN Start:11-Aug-2015 Instruction Type:Provider Instructions for Treatment How to access health informa tion online Indication:Iliac bone pain Start:17-Feb-2015 Instruction Type:Patient Education How to access health informa tion online - Detail Indication:Iliac bone pain Start:17-Feb-2015 Instruction Type:Patient Education Patient Instructions Indication:Iliac bone pain Start:17-Feb-2015 Instruction Type:Provider Instructions for Treatment How to access health informa tion online Indication:Foot lesion Start:10-Dec-2014 Instruction Type:Patient Education How to access health informa tion online - Detail Indication:Foot lesion Start:10-Dec-2014 Instruction Type:Patient Education Patient Instructions Indication:Foot lesion Start:10-Dec-2014 Instruction Type:Provider Instructions for Treatment How to access health informa tion online Indication:Foot lesion Start:02-Dec-2014 Instruction Type:Patient Education How to access health informa tion online - Detail Indication:Foot lesion Start:02-Dec-2014 Instruction Type:Patient Education Patient Instructions Indication:Foot lesion Start:02-Dec-2014 Instruction Type:Provider Instructions for Treatment How to access health informa tion online Indication:Low back pain potentially associated with radiculopathy Start:26-Nov-2014 Instruction Type:Patient Education How to access health informa tion online - Detail Indication:Low back pain potentially associated with radiculopathy Start:26-Nov-2014 Instruction Type:Patient Education Patient Instructions Indication:Low back pain potentially associated with radiculopathy Start:26-Nov-2014 Instruction Type:Provider Instructions for Treatment How to access health informa tion online Indication:Low back pain potentially associated with radiculopathy Start:12-Nov-2014 Instruction Type:Patient Education How to access health informa tion online - Detail Indication:Low back pain potentially associated with radiculopathy Start:12-Nov-2014 Instruction Type:Patient Education Patient Instructions Indication:Low back pain potentially associated with radiculopathy Start:12-Nov-2014 Instruction Type:Provider Instructions for Treatment Patient Instructions Indication:Encounter for immunization Start:11-Jun-2013 Instruction Type:Provider Instructions for Treatment Patient Instructions Indication:FATIGUE Start:30-Apr-2013 Instruction Type:Provider Instructions for Treatment Patient Instructions Indication:FATIGUE Start:27-Dec-2012 Instruction Type:Provider Instructions for Treatment Patient Instructions Indication:Abnormal glucose tolerance test Start:07-Oct-2012 Instruction Type:Provider Instructions for Treatment Patient Instructions Indication:Rash Start:05-Jul-2012 Instruction Type:Provider Instructions for Treatment Patient Instructions Indication:Rash Start:11-Jun-2012 Instruction Type:Provider Instructions for Treatment Patient Instructions Indication:Abnormal glucose tolerance test Start:07-Jun-2012 Instruction Type:Provider Instructions for Treatment Name Dates Details How to access health informa tion online Indication:Nonsmoker Start:08-Nov-2018 Instruction Type:Patient Education How to access health informa tion online - Detail Indication:Nonsmoker Start:08-Nov-2018 Instruction Type:Patient Education Patient Instructions Indication:Nonsmoker Start:08-Nov-2018 Instruction Type:Provider Instructions for Treatment How to access health informa tion online Indication:Nonsmoker Start:25-Oct-2018 Instruction Type:Patient Education How to access health informa tion online - Detail Indication:Nonsmoker Start:25-Oct-2018 Instruction Type:Patient Education Patient Instructions Indication:Nonsmoker Start:25-Oct-2018 Instruction Type:Provider Instructions for Treatment How to access health informa tion online Indication:Nonsmoker Start:29-May-2018 Instruction Type:Patient Education How to access health informa tion online - Detail Indication:Nonsmoker Start:29-May-2018 Instruction Type:Patient Education Patient Instructions Indication:Nonsmoker Start:29-May-2018 Instruction Type:Provider Instructions for Treatment How to access health informa tion online Indication:Nonsmoker Start:01-Mar-2018 Instruction Type:Patient Education How to access health informa tion online - Detail Indication:Nonsmoker Start:01-Mar-2018 Instruction Type:Patient Education Patient Instructions Indication:Nonsmoker Start:01-Mar-2018 Instruction Type:Provider Instructions for Treatment How to access health informa tion online Indication:Nonsmoker Start:21-Jan-2018 Instruction Type:Patient Education How to access health informa tion online - Detail Indication:Nonsmoker Start:21-Jan-2018 Instruction Type:Patient Education Patient Instructions Indication:Nonsmoker Start:21-Jan-2018 Instruction Type:Provider Instructions for Treatment How to access health informa tion online Indication:Nonsmoker Start:31-Dec-2017 Instruction Type:Patient Education How to access health informa tion online - Detail Indication:Nonsmoker Start:31-Dec-2017 Instruction Type:Patient Education Patient Instructions Indication:Nonsmoker Start:31-Dec-2017 Instruction Type:Provider Instructions for Treatment Patient Instructions Indication:SOB (shortness of breath) on exertion Start:28-Sep-2017 Instruction Type:Provider Instructions for Treatment How to access health informa tion online Indication:Hypercalcemia Start:23-Aug-2017 Instruction Type:Patient Education How to access health informa tion online - Detail Indication:Hypercalcemia Start:23-Aug-2017 Instruction Type:Patient Education Patient Instructions Indication:Hypercalcemia Start:23-Aug-2017 Instruction Type:Provider Instructions for Treatment cardiovascular counseling Indication:Acute myocardial infarction, unspecified DE type, unspecified artery Start:02-Aug-2017 Instruction Type:Provider Instructions for Treatment How to access health informa tion online Indication:Nonsmoker Start:02-Aug-2017 Instruction Type:Patient Education How to access health informa tion online - Detail Indication:Nonsmoker Start:02-Aug-2017 Instruction Type:Patient Education Patient Instructions Indication:Nonsmoker Start:02-Aug-2017 Instruction Type:Provider Instructions for Treatment How to access health informa tion online Indication:Nonsmoker Start:04-Jul-2017 Instruction Type:Patient Education How to access health informa tion online - Detail Indication:Nonsmoker Start:04-Jul-2017 Instruction Type:Patient Education Patient Instructions Indication:Nonsmoker Start:04-Jul-2017 Instruction Type:Provider Instructions for Treatment How to access health informa tion online Indication:Nonsmoker Start:25-Jun-2017 Instruction Type:Patient Education How to access health informa tion online - Detail Indication:Nonsmoker Start:25-Jun-2017 Instruction Type:Patient Education Patient Instructions Indication:Nonsmoker Start:25-Jun-2017 Instruction Type:Provider Instructions for Treatment How to access health informa tion online Indication:Hypertension Start:21-May-2017 Instruction Type:Patient Education How to access health informa tion online - Detail Indication:Hypertension Start:21-May-2017 Instruction Type:Patient Education Patient Instructions Indication:Hypertension Start:21-May-2017 Instruction Type:Provider Instructions for Treatment How to access health informa tion online Indication:BMI 24.0-24.9, adult Start:12-Apr-2017 Instruction Type:Patient Education How to access health informa tion online - Detail Indication:BMI 24.0-24.9, adult Start:12-Apr-2017 Instruction Type:Patient Education Patient Instructions Indication:BMI 24.0-24.9, adult Start:12-Apr-2017 Instruction Type:Provider Instructions for Treatment How to access health informa tion online Indication:Nonsmoker Start:05-Apr-2017 Instruction Type:Patient Education How to access health informa tion online - Detail Indication:Nonsmoker Start:05-Apr-2017 Instruction Type:Patient Education Patient Instructions Indication:Nonsmoker Start:05-Apr-2017 Instruction Type:Provider Instructions for Treatment How to access health informa tion online Indication:Nonsmoker Start:22-Mar-2017 Instruction Type:Patient Education How to access health informa tion online - Detail Indication:Nonsmoker Start:22-Mar-2017 Instruction Type:Patient Education Patient Instructions Indication:Nonsmoker Start:22-Mar-2017 Instruction Type:Provider Instructions for Treatment How to access health informa tion online Indication:BMI 24.0-24.9, adult Start:05-Feb-2017 Instruction Type:Patient Education How to access health informa tion online - Detail Indication:BMI 24.0-24.9, adult Start:05-Feb-2017 Instruction Type:Patient Education Patient Instructions Indication:BMI 24.0-24.9, adult Start:05-Feb-2017 Instruction Type:Provider Instructions for Treatment How to access health informa tion online Indication:Body mass index (BMI) 24.0-24.9, adult Start:17-Nov-2016 Instruction Type:Patient Education How to access health informa tion online - Detail Indication:Body mass index (BMI) 24.0-24.9, adult Start:17-Nov-2016 Instruction Type:Patient Education Patient Instructions Indication:Body mass index (BMI) 24.0-24.9, adult Start:17-Nov-2016 Instruction Type:Provider Instructions for Treatment How to access health informa tion online Indication:Nonsmoker Start:05-Oct-2016 Instruction Type:Patient Education How to access health informa tion online - Detail Indication:Nonsmoker Start:05-Oct-2016 Instruction Type:Patient Education Patient Instructions Indication:Nonsmoker Start:05-Oct-2016 Instruction Type:Provider Instructions for Treatment How to access health informa tion online Indication:Nonsmoker Start:30-Aug-2016 Instruction Type:Patient Education How to access health informa tion online - Detail Indication:Nonsmoker Start:30-Aug-2016 Instruction Type:Patient Education Patient Instructions Indication:Nonsmoker Start:30-Aug-2016 Instruction Type:Provider Instructions for Treatment How to access health informa tion online Indication:Nonsmoker Start:28-Aug-2016 Instruction Type:Patient Education How to access health informa tion online - Detail Indication:Nonsmoker Start:28-Aug-2016 Instruction Type:Patient Education Patient Instructions Indication:Nonsmoker Start:28-Aug-2016 Instruction Type:Provider Instructions for Treatment How to access health informa tion online Indication:Body mass index (BMI) 24.0-24.9, adult Start:29-Jun-2016 Instruction Type:Patient Education How to access health informa tion online - Detail Indication:Body mass index (BMI) 24.0-24.9, adult Start:29-Jun-2016 Instruction Type:Patient Education Patient Instructions Indication:Body mass index (BMI) 24.0-24.9, adult Start:29-Jun-2016 Instruction Type:Provider Instructions for Treatment How to access health informa tion online Indication:Nonsmoker Start:15-Jun-2016 Instruction Type:Patient Education How to access health informa tion online - Detail Indication:Nonsmoker Start:15-Jun-2016 Instruction Type:Patient Education Patient Instructions Indication:Nonsmoker Start:15-Jun-2016 Instruction Type:Provider Instructions for Treatment How to access health informa tion online Indication:Nonsmoker Start:25-May-2016 Instruction Type:Patient Education How to access health informa tion online - Detail Indication:Nonsmoker Start:25-May-2016 Instruction Type:Patient Education Patient Instructions Indication:Nonsmoker Start:25-May-2016 Instruction Type:Provider Instructions for Treatment Patient Instructions Indication:FATIGUE Start:06-Mar-2016 Instruction Type:Provider Instructions for Treatment How to access health informa tion online Indication:Nonsmoker Start:08-Feb-2016 Instruction Type:Patient Education How to access health informa tion online - Detail Indication:Nonsmoker Start:08-Feb-2016 Instruction Type:Patient Education Patient Instructions Indication:Nonsmoker Start:08-Feb-2016 Instruction Type:Provider Instructions for Treatment How to access health informa tion online Indication:Abnormal glucose tolerance test Start:20-Jan-2016 Instruction Type:Patient Education How to access health informa tion online - Detail Indication:Abnormal glucose tolerance test Start:20-Jan-2016 Instruction Type:Patient Education Patient Instructions Indication:Abnormal glucose tolerance test Start:20-Jan-2016 Instruction Type:Provider Instructions for Treatment How to access health informa tion online Indication:Benign essential HTN Start:11-Aug-2015 Instruction Type:Patient Education How to access health informa tion online - Detail Indication:Benign essential HTN Start:11-Aug-2015 Instruction Type:Patient Education Patient Instructions Indication:Benign essential HTN Start:11-Aug-2015 Instruction Type:Provider Instructions for Treatment How to access health informa tion online Indication:Iliac bone pain Start:17-Feb-2015 Instruction Type:Patient Education How to access health informa tion online - Detail Indication:Iliac bone pain Start:17-Feb-2015 Instruction Type:Patient Education Patient Instructions Indication:Iliac bone pain Start:17-Feb-2015 Instruction Type:Provider Instructions for Treatment How to access health informa tion online Indication:Foot lesion Start:10-Dec-2014 Instruction Type:Patient Education How to access health informa tion online - Detail Indication:Foot lesion Start:10-Dec-2014 Instruction Type:Patient Education Patient Instructions Indication:Foot lesion Start:10-Dec-2014 Instruction Type:Provider Instructions for Treatment How to access health informa tion online Indication:Foot lesion Start:02-Dec-2014 Instruction Type:Patient Education How to access health informa tion online - Detail Indication:Foot lesion Start:02-Dec-2014 Instruction Type:Patient Education Patient Instructions Indication:Foot lesion Start:02-Dec-2014 Instruction Type:Provider Instructions for Treatment How to access health informa tion online Indication:Low back pain potentially associated with radiculopathy Start:26-Nov-2014 Instruction Type:Patient Education How to access health informa tion online - Detail Indication:Low back pain potentially associated with radiculopathy Start:26-Nov-2014 Instruction Type:Patient Education Patient Instructions Indication:Low back pain potentially associated with radiculopathy Start:26-Nov-2014 Instruction Type:Provider Instructions for Treatment How to access health informa tion online Indication:Low back pain potentially associated with radiculopathy Start:12-Nov-2014 Instruction Type:Patient Education How to access health informa tion online - Detail Indication:Low back pain potentially associated with radiculopathy Start:12-Nov-2014 Instruction Type:Patient Education Patient Instructions Indication:Low back pain potentially associated with radiculopathy Start:12-Nov-2014 Instruction Type:Provider Instructions for Treatment Patient Instructions Indication:Encounter for immunization Start:11-Jun-2013 Instruction Type:Provider Instructions for Treatment Patient Instructions Indication:FATIGUE Start:30-Apr-2013 Instruction Type:Provider Instructions for Treatment Patient Instructions Indication:FATIGUE Start:27-Dec-2012 Instruction Type:Provider Instructions for Treatment Patient Instructions Indication:Abnormal glucose tolerance test Start:07-Oct-2012 Instruction Type:Provider Instructions for Treatment Patient Instructions Indication:Rash Start:05-Jul-2012 Instruction Type:Provider Instructions for Treatment Patient Instructions Indication:Rash Start:11-Jun-2012 Instruction Type:Provider Instructions for Treatment Patient Instructions Indication:Abnormal glucose tolerance test Start:07-Jun-2012 Instruction Type:Provider Instructions for Treatment Name Dates Details How to access health informa tion online Indication:Nonsmoker Start:08-Nov-2018 Instruction Type:Patient Education How to access health informa tion online - Detail Indication:Nonsmoker Start:08-Nov-2018 Instruction Type:Patient Education Patient Instructions Indication:Nonsmoker Start:08-Nov-2018 Instruction Type:Provider Instructions for Treatment How to access health informa tion online Indication:Nonsmoker Start:25-Oct-2018 Instruction Type:Patient Education How to access health informa tion online - Detail Indication:Nonsmoker Start:25-Oct-2018 Instruction Type:Patient Education Patient Instructions Indication:Nonsmoker Start:25-Oct-2018 Instruction Type:Provider Instructions for Treatment How to access health informa tion online Indication:Nonsmoker Start:29-May-2018 Instruction Type:Patient Education How to access health informa tion online - Detail Indication:Nonsmoker Start:29-May-2018 Instruction Type:Patient Education Patient Instructions Indication:Nonsmoker Start:29-May-2018 Instruction Type:Provider Instructions for Treatment How to access health informa tion online Indication:Nonsmoker Start:01-Mar-2018 Instruction Type:Patient Education How to access health informa tion online - Detail Indication:Nonsmoker Start:01-Mar-2018 Instruction Type:Patient Education Patient Instructions Indication:Nonsmoker Start:01-Mar-2018 Instruction Type:Provider Instructions for Treatment How to access health informa tion online Indication:Nonsmoker Start:21-Jan-2018 Instruction Type:Patient Education How to access health informa tion online - Detail Indication:Nonsmoker Start:21-Jan-2018 Instruction Type:Patient Education Patient Instructions Indication:Nonsmoker Start:21-Jan-2018 Instruction Type:Provider Instructions for Treatment How to access health informa tion online Indication:Nonsmoker Start:31-Dec-2017 Instruction Type:Patient Education How to access health informa tion online - Detail Indication:Nonsmoker Start:31-Dec-2017 Instruction Type:Patient Education Patient Instructions Indication:Nonsmoker Start:31-Dec-2017 Instruction Type:Provider Instructions for Treatment Patient Instructions Indication:SOB (shortness of breath) on exertion Start:28-Sep-2017 Instruction Type:Provider Instructions for Treatment How to access health informa tion online Indication:Hypercalcemia Start:23-Aug-2017 Instruction Type:Patient Education How to access health informa tion online - Detail Indication:Hypercalcemia Start:23-Aug-2017 Instruction Type:Patient Education Patient Instructions Indication:Hypercalcemia Start:23-Aug-2017 Instruction Type:Provider Instructions for Treatment cardiovascular counseling Indication:Acute myocardial infarction, unspecified DE type, unspecified artery Start:02-Aug-2017 Instruction Type:Provider Instructions for Treatment How to access health informa tion online Indication:Nonsmoker Start:02-Aug-2017 Instruction Type:Patient Education How to access health informa tion online - Detail Indication:Nonsmoker Start:02-Aug-2017 Instruction Type:Patient Education Patient Instructions Indication:Nonsmoker Start:02-Aug-2017 Instruction Type:Provider Instructions for Treatment How to access health informa tion online Indication:Nonsmoker Start:04-Jul-2017 Instruction Type:Patient Education How to access health informa tion online - Detail Indication:Nonsmoker Start:04-Jul-2017 Instruction Type:Patient Education Patient Instructions Indication:Nonsmoker Start:04-Jul-2017 Instruction Type:Provider Instructions for Treatment How to access health informa tion online Indication:Nonsmoker Start:25-Jun-2017 Instruction Type:Patient Education How to access health informa tion online - Detail Indication:Nonsmoker Start:25-Jun-2017 Instruction Type:Patient Education Patient Instructions Indication:Nonsmoker Start:25-Jun-2017 Instruction Type:Provider Instructions for Treatment How to access health informa tion online Indication:Hypertension Start:21-May-2017 Instruction Type:Patient Education How to access health informa tion online - Detail Indication:Hypertension Start:21-May-2017 Instruction Type:Patient Education Patient Instructions Indication:Hypertension Start:21-May-2017 Instruction Type:Provider Instructions for Treatment How to access health informa tion online Indication:BMI 24.0-24.9, adult Start:12-Apr-2017 Instruction Type:Patient Education How to access health informa tion online - Detail Indication:BMI 24.0-24.9, adult Start:12-Apr-2017 Instruction Type:Patient Education Patient Instructions Indication:BMI 24.0-24.9, adult Start:12-Apr-2017 Instruction Type:Provider Instructions for Treatment How to access health informa tion online Indication:Nonsmoker Start:05-Apr-2017 Instruction Type:Patient Education How to access health informa tion online - Detail Indication:Nonsmoker Start:05-Apr-2017 Instruction Type:Patient Education Patient Instructions Indication:Nonsmoker Start:05-Apr-2017 Instruction Type:Provider Instructions for Treatment How to access health informa tion online Indication:Nonsmoker Start:22-Mar-2017 Instruction Type:Patient Education How to access health informa tion online - Detail Indication:Nonsmoker Start:22-Mar-2017 Instruction Type:Patient Education Patient Instructions Indication:Nonsmoker Start:22-Mar-2017 Instruction Type:Provider Instructions for Treatment How to access health informa tion online Indication:BMI 24.0-24.9, adult Start:05-Feb-2017 Instruction Type:Patient Education How to access health informa tion online - Detail Indication:BMI 24.0-24.9, adult Start:05-Feb-2017 Instruction Type:Patient Education Patient Instructions Indication:BMI 24.0-24.9, adult Start:05-Feb-2017 Instruction Type:Provider Instructions for Treatment How to access health informa tion online Indication:Body mass index (BMI) 24.0-24.9, adult Start:17-Nov-2016 Instruction Type:Patient Education How to access health informa tion online - Detail Indication:Body mass index (BMI) 24.0-24.9, adult Start:17-Nov-2016 Instruction Type:Patient Education Patient Instructions Indication:Body mass index (BMI) 24.0-24.9, adult Start:17-Nov-2016 Instruction Type:Provider Instructions for Treatment How to access health informa tion online Indication:Nonsmoker Start:05-Oct-2016 Instruction Type:Patient Education How to access health informa tion online - Detail Indication:Nonsmoker Start:05-Oct-2016 Instruction Type:Patient Education Patient Instructions Indication:Nonsmoker Start:05-Oct-2016 Instruction Type:Provider Instructions for Treatment How to access health informa tion online Indication:Nonsmoker Start:30-Aug-2016 Instruction Type:Patient Education How to access health informa tion online - Detail Indication:Nonsmoker Start:30-Aug-2016 Instruction Type:Patient Education Patient Instructions Indication:Nonsmoker Start:30-Aug-2016 Instruction Type:Provider Instructions for Treatment How to access health informa tion online Indication:Nonsmoker Start:28-Aug-2016 Instruction Type:Patient Education How to access health informa tion online - Detail Indication:Nonsmoker Start:28-Aug-2016 Instruction Type:Patient Education Patient Instructions Indication:Nonsmoker Start:28-Aug-2016 Instruction Type:Provider Instructions for Treatment How to access health informa tion online Indication:Body mass index (BMI) 24.0-24.9, adult Start:29-Jun-2016 Instruction Type:Patient Education How to access health informa tion online - Detail Indication:Body mass index (BMI) 24.0-24.9, adult Start:29-Jun-2016 Instruction Type:Patient Education Patient Instructions Indication:Body mass index (BMI) 24.0-24.9, adult Start:29-Jun-2016 Instruction Type:Provider Instructions for Treatment How to access health informa tion online Indication:Nonsmoker Start:15-Jun-2016 Instruction Type:Patient Education How to access health informa tion online - Detail Indication:Nonsmoker Start:15-Jun-2016 Instruction Type:Patient Education Patient Instructions Indication:Nonsmoker Start:15-Jun-2016 Instruction Type:Provider Instructions for Treatment How to access health informa tion online Indication:Nonsmoker Start:25-May-2016 Instruction Type:Patient Education How to access health informa tion online - Detail Indication:Nonsmoker Start:25-May-2016 Instruction Type:Patient Education Patient Instructions Indication:Nonsmoker Start:25-May-2016 Instruction Type:Provider Instructions for Treatment Patient Instructions Indication:FATIGUE Start:06-Mar-2016 Instruction Type:Provider Instructions for Treatment How to access health informa tion online Indication:Nonsmoker Start:08-Feb-2016 Instruction Type:Patient Education How to access health informa tion online - Detail Indication:Nonsmoker Start:08-Feb-2016 Instruction Type:Patient Education Patient Instructions Indication:Nonsmoker Start:08-Feb-2016 Instruction Type:Provider Instructions for Treatment How to access health informa tion online Indication:Abnormal glucose tolerance test Start:20-Jan-2016 Instruction Type:Patient Education How to access health informa tion online - Detail Indication:Abnormal glucose tolerance test Start:20-Jan-2016 Instruction Type:Patient Education Patient Instructions Indication:Abnormal glucose tolerance test Start:20-Jan-2016 Instruction Type:Provider Instructions for Treatment How to access health informa tion online Indication:Benign essential HTN Start:11-Aug-2015 Instruction Type:Patient Education How to access health informa tion online - Detail Indication:Benign essential HTN Start:11-Aug-2015 Instruction Type:Patient Education Patient Instructions Indication:Benign essential HTN Start:11-Aug-2015 Instruction Type:Provider Instructions for Treatment How to access health informa tion online Indication:Iliac bone pain Start:17-Feb-2015 Instruction Type:Patient Education How to access health informa tion online - Detail Indication:Iliac bone pain Start:17-Feb-2015 Instruction Type:Patient Education Patient Instructions Indication:Iliac bone pain Start:17-Feb-2015 Instruction Type:Provider Instructions for Treatment How to access health informa tion online Indication:Foot lesion Start:10-Dec-2014 Instruction Type:Patient Education How to access health informa tion online - Detail Indication:Foot lesion Start:10-Dec-2014 Instruction Type:Patient Education Patient Instructions Indication:Foot lesion Start:10-Dec-2014 Instruction Type:Provider Instructions for Treatment How to access health informa tion online Indication:Foot lesion Start:02-Dec-2014 Instruction Type:Patient Education How to access health informa tion online - Detail Indication:Foot lesion Start:02-Dec-2014 Instruction Type:Patient Education Patient Instructions Indication:Foot lesion Start:02-Dec-2014 Instruction Type:Provider Instructions for Treatment How to access health informa tion online Indication:Low back pain potentially associated with radiculopathy Start:26-Nov-2014 Instruction Type:Patient Education How to access health informa tion online - Detail Indication:Low back pain potentially associated with radiculopathy Start:26-Nov-2014 Instruction Type:Patient Education Patient Instructions Indication:Low back pain potentially associated with radiculopathy Start:26-Nov-2014 Instruction Type:Provider Instructions for Treatment How to access health informa tion online Indication:Low back pain potentially associated with radiculopathy Start:12-Nov-2014 Instruction Type:Patient Education How to access health informa tion online - Detail Indication:Low back pain potentially associated with radiculopathy Start:12-Nov-2014 Instruction Type:Patient Education Patient Instructions Indication:Low back pain potentially associated with radiculopathy Start:12-Nov-2014 Instruction Type:Provider Instructions for Treatment Patient Instructions Indication:Encounter for immunization Start:11-Jun-2013 Instruction Type:Provider Instructions for Treatment Patient Instructions Indication:FATIGUE Start:30-Apr-2013 Instruction Type:Provider Instructions for Treatment Patient Instructions Indication:FATIGUE Start:27-Dec-2012 Instruction Type:Provider Instructions for Treatment Patient Instructions Indication:Abnormal glucose tolerance test Start:07-Oct-2012 Instruction Type:Provider Instructions for Treatment Patient Instructions Indication:Rash Start:05-Jul-2012 Instruction Type:Provider Instructions for Treatment Patient Instructions Indication:Rash Start:11-Jun-2012 Instruction Type:Provider Instructions for Treatment Patient Instructions Indication:Abnormal glucose tolerance test Start:07-Jun-2012 Instruction Type:Provider Instructions for Treatment Name Dates Details How to access health informa tion online Indication:Nonsmoker Start:29-May-2018 Instruction Type:Patient Education How to access health informa tion online - Detail Indication:Nonsmoker Start:29-May-2018 Instruction Type:Patient Education Patient Instructions Indication:Nonsmoker Start:29-May-2018 Instruction Type:Provider Instructions for Treatment How to access health informa tion online Indication:Nonsmoker Start:01-Mar-2018 Instruction Type:Patient Education How to access health informa tion online - Detail Indication:Nonsmoker Start:01-Mar-2018 Instruction Type:Patient Education Patient Instructions Indication:Nonsmoker Start:01-Mar-2018 Instruction Type:Provider Instructions for Treatment How to access health informa tion online Indication:Nonsmoker Start:21-Jan-2018 Instruction Type:Patient Education How to access health informa tion online - Detail Indication:Nonsmoker Start:21-Jan-2018 Instruction Type:Patient Education Patient Instructions Indication:Nonsmoker Start:21-Jan-2018 Instruction Type:Provider Instructions for Treatment How to access health informa tion online Indication:Nonsmoker Start:31-Dec-2017 Instruction Type:Patient Education How to access health informa tion online - Detail Indication:Nonsmoker Start:31-Dec-2017 Instruction Type:Patient Education Patient Instructions Indication:Nonsmoker Start:31-Dec-2017 Instruction Type:Provider Instructions for Treatment Patient Instructions Indication:SOB (shortness of breath) on exertion Start:28-Sep-2017 Instruction Type:Provider Instructions for Treatment How to access health informa tion online Indication:Hypercalcemia Start:23-Aug-2017 Instruction Type:Patient Education How to access health informa tion online - Detail Indication:Hypercalcemia Start:23-Aug-2017 Instruction Type:Patient Education Patient Instructions Indication:Hypercalcemia Start:23-Aug-2017 Instruction Type:Provider Instructions for Treatment cardiovascular counseling Indication:Acute myocardial infarction, unspecified DE type, unspecified artery Start:02-Aug-2017 Instruction Type:Provider Instructions for Treatment How to access health informa tion online Indication:Nonsmoker Start:02-Aug-2017 Instruction Type:Patient Education How to access health informa tion online - Detail Indication:Nonsmoker Start:02-Aug-2017 Instruction Type:Patient Education Patient Instructions Indication:Nonsmoker Start:02-Aug-2017 Instruction Type:Provider Instructions for Treatment How to access health informa tion online Indication:Nonsmoker Start:04-Jul-2017 Instruction Type:Patient Education How to access health informa tion online - Detail Indication:Nonsmoker Start:04-Jul-2017 Instruction Type:Patient Education Patient Instructions Indication:Nonsmoker Start:04-Jul-2017 Instruction Type:Provider Instructions for Treatment How to access health informa tion online Indication:Nonsmoker Start:25-Jun-2017 Instruction Type:Patient Education How to access health informa tion online - Detail Indication:Nonsmoker Start:25-Jun-2017 Instruction Type:Patient Education Patient Instructions Indication:Nonsmoker Start:25-Jun-2017 Instruction Type:Provider Instructions for Treatment How to access health informa tion online Indication:Hypertension Start:21-May-2017 Instruction Type:Patient Education How to access health informa tion online - Detail Indication:Hypertension Start:21-May-2017 Instruction Type:Patient Education Patient Instructions Indication:Hypertension Start:21-May-2017 Instruction Type:Provider Instructions for Treatment How to access health informa tion online Indication:BMI 24.0-24.9, adult Start:12-Apr-2017 Instruction Type:Patient Education How to access health informa tion online - Detail Indication:BMI 24.0-24.9, adult Start:12-Apr-2017 Instruction Type:Patient Education Patient Instructions Indication:BMI 24.0-24.9, adult Start:12-Apr-2017 Instruction Type:Provider Instructions for Treatment How to access health informa tion online Indication:Nonsmoker Start:05-Apr-2017 Instruction Type:Patient Education How to access health informa tion online - Detail Indication:Nonsmoker Start:05-Apr-2017 Instruction Type:Patient Education Patient Instructions Indication:Nonsmoker Start:05-Apr-2017 Instruction Type:Provider Instructions for Treatment How to access health informa tion online Indication:Nonsmoker Start:22-Mar-2017 Instruction Type:Patient Education How to access health informa tion online - Detail Indication:Nonsmoker Start:22-Mar-2017 Instruction Type:Patient Education Patient Instructions Indication:Nonsmoker Start:22-Mar-2017 Instruction Type:Provider Instructions for Treatment How to access health informa tion online Indication:BMI 24.0-24.9, adult Start:05-Feb-2017 Instruction Type:Patient Education How to access health informa tion online - Detail Indication:BMI 24.0-24.9, adult Start:05-Feb-2017 Instruction Type:Patient Education Patient Instructions Indication:BMI 24.0-24.9, adult Start:05-Feb-2017 Instruction Type:Provider Instructions for Treatment How to access health informa tion online Indication:Body mass index (BMI) 24.0-24.9, adult Start:17-Nov-2016 Instruction Type:Patient Education How to access health informa tion online - Detail Indication:Body mass index (BMI) 24.0-24.9, adult Start:17-Nov-2016 Instruction Type:Patient Education Patient Instructions Indication:Body mass index (BMI) 24.0-24.9, adult Start:17-Nov-2016 Instruction Type:Provider Instructions for Treatment How to access health informa tion online Indication:Nonsmoker Start:05-Oct-2016 Instruction Type:Patient Education How to access health informa tion online - Detail Indication:Nonsmoker Start:05-Oct-2016 Instruction Type:Patient Education Patient Instructions Indication:Nonsmoker Start:05-Oct-2016 Instruction Type:Provider Instructions for Treatment How to access health informa tion online Indication:Nonsmoker Start:30-Aug-2016 Instruction Type:Patient Education How to access health informa tion online - Detail Indication:Nonsmoker Start:30-Aug-2016 Instruction Type:Patient Education Patient Instructions Indication:Nonsmoker Start:30-Aug-2016 Instruction Type:Provider Instructions for Treatment How to access health informa tion online Indication:Nonsmoker Start:28-Aug-2016 Instruction Type:Patient Education How to access health informa tion online - Detail Indication:Nonsmoker Start:28-Aug-2016 Instruction Type:Patient Education Patient Instructions Indication:Nonsmoker Start:28-Aug-2016 Instruction Type:Provider Instructions for Treatment How to access health informa tion online Indication:Body mass index (BMI) 24.0-24.9, adult Start:29-Jun-2016 Instruction Type:Patient Education How to access health informa tion online - Detail Indication:Body mass index (BMI) 24.0-24.9, adult Start:29-Jun-2016 Instruction Type:Patient Education Patient Instructions Indication:Body mass index (BMI) 24.0-24.9, adult Start:29-Jun-2016 Instruction Type:Provider Instructions for Treatment How to access health informa tion online Indication:Nonsmoker Start:15-Jun-2016 Instruction Type:Patient Education How to access health informa tion online - Detail Indication:Nonsmoker Start:15-Jun-2016 Instruction Type:Patient Education Patient Instructions Indication:Nonsmoker Start:15-Jun-2016 Instruction Type:Provider Instructions for Treatment How to access health informa tion online Indication:Nonsmoker Start:25-May-2016 Instruction Type:Patient Education How to access health informa tion online - Detail Indication:Nonsmoker Start:25-May-2016 Instruction Type:Patient Education Patient Instructions Indication:Nonsmoker Start:25-May-2016 Instruction Type:Provider Instructions for Treatment Patient Instructions Indication:FATIGUE Start:06-Mar-2016 Instruction Type:Provider Instructions for Treatment How to access health informa tion online Indication:Nonsmoker Start:08-Feb-2016 Instruction Type:Patient Education How to access health informa tion online - Detail Indication:Nonsmoker Start:08-Feb-2016 Instruction Type:Patient Education Patient Instructions Indication:Nonsmoker Start:08-Feb-2016 Instruction Type:Provider Instructions for Treatment How to access health informa tion online Indication:Abnormal glucose tolerance test Start:20-Jan-2016 Instruction Type:Patient Education How to access health informa tion online - Detail Indication:Abnormal glucose tolerance test Start:20-Jan-2016 Instruction Type:Patient Education Patient Instructions Indication:Abnormal glucose tolerance test Start:20-Jan-2016 Instruction Type:Provider Instructions for Treatment How to access health informa tion online Indication:Benign essential HTN Start:11-Aug-2015 Instruction Type:Patient Education How to access health informa tion online - Detail Indication:Benign essential HTN Start:11-Aug-2015 Instruction Type:Patient Education Patient Instructions Indication:Benign essential HTN Start:11-Aug-2015 Instruction Type:Provider Instructions for Treatment How to access health informa tion online Indication:Iliac bone pain Start:17-Feb-2015 Instruction Type:Patient Education How to access health informa tion online - Detail Indication:Iliac bone pain Start:17-Feb-2015 Instruction Type:Patient Education Patient Instructions Indication:Iliac bone pain Start:17-Feb-2015 Instruction Type:Provider Instructions for Treatment How to access health informa tion online Indication:Foot lesion Start:10-Dec-2014 Instruction Type:Patient Education How to access health informa tion online - Detail Indication:Foot lesion Start:10-Dec-2014 Instruction Type:Patient Education Patient Instructions Indication:Foot lesion Start:10-Dec-2014 Instruction Type:Provider Instructions for Treatment How to access health informa tion online Indication:Foot lesion Start:02-Dec-2014 Instruction Type:Patient Education How to access health informa tion online - Detail Indication:Foot lesion Start:02-Dec-2014 Instruction Type:Patient Education Patient Instructions Indication:Foot lesion Start:02-Dec-2014 Instruction Type:Provider Instructions for Treatment How to access health informa tion online Indication:Low back pain potentially associated with radiculopathy Start:26-Nov-2014 Instruction Type:Patient Education How to access health informa tion online - Detail Indication:Low back pain potentially associated with radiculopathy Start:26-Nov-2014 Instruction Type:Patient Education Patient Instructions Indication:Low back pain potentially associated with radiculopathy Start:26-Nov-2014 Instruction Type:Provider Instructions for Treatment How to access health informa tion online Indication:Low back pain potentially associated with radiculopathy Start:12-Nov-2014 Instruction Type:Patient Education How to access health informa tion online - Detail Indication:Low back pain potentially associated with radiculopathy Start:12-Nov-2014 Instruction Type:Patient Education Patient Instructions Indication:Low back pain potentially associated with radiculopathy Start:12-Nov-2014 Instruction Type:Provider Instructions for Treatment Patient Instructions Indication:Encounter for immunization Start:11-Jun-2013 Instruction Type:Provider Instructions for Treatment Patient Instructions Indication:FATIGUE Start:30-Apr-2013 Instruction Type:Provider Instructions for Treatment Patient Instructions Indication:FATIGUE Start:27-Dec-2012 Instruction Type:Provider Instructions for Treatment Patient Instructions Indication:Abnormal glucose tolerance test Start:07-Oct-2012 Instruction Type:Provider Instructions for Treatment Patient Instructions Indication:Rash Start:05-Jul-2012 Instruction Type:Provider Instructions for Treatment Patient Instructions Indication:Rash Start:11-Jun-2012 Instruction Type:Provider Instructions for Treatment Patient Instructions Indication:Abnormal glucose tolerance test Start:07-Jun-2012 Instruction Type:Provider Instructions for Treatment Advance Directives No Advanced Directives Records Found Name Dates Details Immunization Registry [place] - Effective on 03/01/2018. Expiration date unspecified Effective:01-Mar-2018 Name Dates Details Immunization Registry [place] - Effective on 03/01/2018. Expiration date unspecified Effective:01-Mar-2018 Name Dates Details Immunization Registry [place] - Effective on 03/01/2018. Expiration date unspecified Effective:01-Mar-2018 Name Dates Details Immunization Registry [place] - Effective on 03/01/2018. Expiration date unspecified Effective:01-Mar-2018 Name Dates Details Immunization Registry [place] - Effective on 03/01/2018. Expiration date unspecified Effective:01-Mar-2018 Name Dates Details Immunization Registry [place] - Effective on 03/01/2018. Expiration date unspecified Effective:01-Mar-2018 Name Dates Details Immunization Registry [place] - Effective on 03/01/2018. Expiration date unspecified Effective:01-Mar-2018 Name Dates Details Immunization Registry [place] - Effective on 03/01/2018. Expiration date unspecified Effective:01-Mar-2018 Name Dates Details Immunization Registry [place] - Effective on 03/01/2018. Expiration date unspecified Effective:01-Mar-2018 Name Dates Details Immunization Registry [place] - Effective on 03/01/2018. Expiration date unspecified Effective:01-Mar-2018 Advance Directive Response Recorded Date/ Time Advance Directives Yes April 19, 2020 11:46am Living Will Yes April 19 11:46am Power of Livestock [place] Yes April 19, 2020 11:46am Advance Directive Response Recorded Date/ Time Name of Medical Power of Livestock [place] MIGUEL VARGAS November 27, 2021 9:39am Advance Directives Yes April 19, 2020 11:46am Living Will Yes November 27, 2021 9:39am Power of Livestock [place] Yes November 9:39am Advance Directive Response Recorded Date/ Time Name of Medical Power of Livestock [place] MONTEZ Wilson, MIGUEL November 27, 2021 9:39am Advance Directives Yes April 19, 2020 11:46am Living Will No December 04, 2021 4:52pm Power of Livestock [place] No November 4:52pm Advance Directive Response Recorded Date/ Time Name of Medical Power of Livestock [place] MONTEZ WANG, SON November 27, 2021 9:39am Name of Medical Power of Livestock [place] Montez Wang and Leon Wang December 04, 2021 8:37pm Advance Directives Yes April 19, 2020 11:46am Living Will Yes December 04, 2021 8:37pm Power of Livestock [place] Yes November 8:37pm Advance Directive Response Recorded Date/ Time Advance Directives Yes April 19, 2020 10:46am Living Will Yes December 04, 2021 7:37pm Power of Livestock [place] Yes November 7:37pm Advance Directive Response Recorded Date/ Time Advance Directives Yes April 19, 2020 11:46am Living Will Yes December 04, 2021 8:37pm Power of Livestock [place] Yes November 8:37pm Advance Directive Response Recorded Date/ Time Name of Medical Power of Livestock [place] Oumar Parker - son July 24, 2022 11:35am Advance Directives Yes April 19, 2020 11:46am Living Will Yes July 24, 2022 11 :35am Power of Livestock [place] Yes July 24, 2022 11:35am Advance Directive Response Recorded Date/ Time Advance Directives Yes April 19, 2020 11:46am Living Will Yes July 24, 2022 11 :35am Power of Livestock [place] Yes July 24, 2022 11:35am Advance Directive Response Recorded Date/ Time Advance Directives Yes April 19, 2020 10:46am Living Will Yes July 24, 2022 10 :35am Power of Livestock [place] Yes July 24, 2022 10:35am Advance Directive Response Recorded Date/ Time Living Will Yes October 11, 2023 1:12pm Do you have a Healthcare Power of Livestock [place]? Yes October 11, 2023 1:12pm Advance Directives Yes April 19, 2020 11:46am Advance Directive Response Recorded Date/ Time Advance Directives Yes April 19, 2020 11:46am Advance Directive Response Recorded Date/ Time Advance Directives on File Yes July 182024 7:49am Living Will Yes August 08, 2024 7 :49am Do you have a Healthcare Power of Livestock [place]? Yes August 08, 2024 7:49am Name of Medical Power of Livestock [place] Oumar Wang August 08, 2024 7:49am Advance Directives Yes August 08 7:49am Summary Purpose Chief Complaint and Reason for Visit Chief Complaint 9 m fu EORDERS Reason for Visit Essential (primary) hypertension Hyperlipidemia Paroxysmal atrial fibrillation Presence of permanent cardiac pacemaker History of coronary artery stent placement Chief Complaint knee pain- BOTH Chief Complaint knee pain- BOTH THYROID NODULE/COPD THYROID NODULE/COPD Chief Complaint knee pain- BOTH THYROID NODULE/COPD THYROID NODULE/COPD fall Chief Complaint knee pain- BOTH THYROID NODULE/COPD THYROID NODULE/COPD fall UTI, GENERALIZED WEAKNESS UTI, GENERALIZED WEAKNESS Reason for Visit Acute UTI Generalized weakness Chronic obstructive pulmonary disease with hypoxia COPD exacerbation Chief Complaint knee pain- BOTH THYROID NODULE/COPD THYROID NODULE/COPD fall UTI, GENERALIZED WEAKNESS UTI, GENERALIZED WEAKNESS UTI, GENERALIZED WEAKNESS UTI, GENERALIZED WEAKNESS Reason for Visit Acute UTI Generalized weakness Chronic obstructive pulmonary disease with hypoxia COPD exacerbation Chief Complaint 1WK LABS PRIOR LT EYE CENTRAL RETINAL VEIN OCCLUSION Reason for Visit Leukocytosis (leucoc ytosis) Acute costochondritis Chief Complaint LT EYE CENTRAL RETIN AL VEIN OCCLUSION 1 y fu and talk about med changes OVER DUE FOR PACER CHECK Consult E ORDER Reason for Visit Essential (primary) hypertension Hyperlipidemia Paroxysmal atrial fibrillation Presence of permanent cardiac pacemaker History of coronary artery stent placement Complete heart block Paroxysmal atrial fibrillation Paroxysmal atrial flutter 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 Sick sinus syndrome Bilateral carotid artery stenosis Chief Complaint LT EYE CENTRAL RETIN AL VEIN OCCLUSION 1 y fu and talk about med changes OVER DUE FOR PACER CHECK Consult E ORDER CAROTID STENOSIS Reason for Visit Essential (primary) hypertension Hyperlipidemia Paroxysmal atrial fibrillation Presence of permanent cardiac pacemaker History of coronary artery stent placement Complete heart block Paroxysmal atrial fibrillation Paroxysmal atrial flutter 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 Sick sinus syndrome Bilateral carotid artery stenosis Chief Complaint CAROTID STENOSIS FU DISCUSS SURGERY PRE OP PRE OP LT CAROTID ENDARTERECTOMY LT CAROTID ENDARTERECTOMY LT CAROTID ENDARTERECTOMY 2-3 WK FU Reason for Visit Bilateral carotid ar arnel stenosis Left carotid artery stenosis Bilateral carotid artery stenosis Chief Complaint 6 mos PPM f/u DECREASED PEDAL PULSES Reason for Visit Complete heart block Paroxysmal atrial fibrillation Paroxysmal atrial flutter 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 Sick sinus syndrome Chief Complaint 6 mos PPM f/u BACK PAIN Reason for Visit Complete heart block Paroxysmal atrial fibrillation 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 History of coronary artery stent placement Chief Complaint Pacer Check Remote 6 mos PPM f/u BACK PAIN CP / SOB / DIZZINESS PER JADE ATHEROSCLEROTIC HEART DISEASE Reason for Visit Complete heart block Paroxysmal atrial fibrillation 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 History of coronary artery stent placement Atherosclerotic heart disease of [place] coronary artery without angina pectoris Complete heart block Essential (primary) hypertension Paroxysmal atrial fibrillation Chief Complaint Admit Date 2 M FU February 11, 2024 1:39pm pain March 04, 2024 5:13pm Pacer Check Remote May 19, 2024 5:47 pm Reason for Visit Admit Date Dizziness February 11, 2024 1:39pm Atherosclerotic heart diseas e of [place] coronary artery without angina pectoris February 11, 2024 1:39pm Essential (primary) hypertension Novembe r 2023 1:39pm Paroxysmal atrial fibrillation February 11, 2024 1:39pm Presence of permanent cardiac pacemaker February 11, 2024 1:39pm Chief Complaint Admit Date Pacer Check Remote May 19, 2024 5:47 pm Annual In-Clinic Check/Sees MH @ 1:30 Ma y 2024 12:52pm 1 Y FU/Sees Jade @ 1 July 29, 2024 12:53 pm Reason for Visit Admit Date Complete heart block July 29, 2024 12:5 2pm Paroxysmal atrial fibrillation July 29, 2024 12:52pm Presence of permanent cardiac pacemaker July 29, 2024 12:52pm Reason for Visit Admit Date Complete heart block July 29, 2024 12:5 2pm Paroxysmal atrial fibrillation July 29, 2024 12:52pm Presence of permanent cardiac pacemaker July 29, 2024 12:52pm 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 July 29, 2024 12:53pm Atherosclerotic heart diseas e of [place] coronary artery without angina pectoris July 29, 2024 12:53pm Hyperlipidemia July 29, 2024 12:53 pm Paroxysmal atrial fibrillation July 29, 2024 12:53pm Presence of permanent cardiac pacemaker July 29, 2024 12:53pm Chief Complaint Admit Date Pacer Check Remote May 19, 2024 5:47 pm Pacer Check Remote July 29, 2024 9:00a m Annual In-Clinic Check/Sees MH @ 1:30 Ma y 2024 12:52pm 1 Y FU/Sees Jade @ 1 July 29, 2024 12:53 pm Chief Complaint Admit Date Pacer Check Remote May 19, 2024 5:47 pm Pacer Check Remote July 29, 2024 9:00a m Annual In-Clinic Check/Sees MH @ 1:30 Ma y 2024 12:52pm 1 Y FU/Sees Jade @ 1 July 29, 2024 12:53 pm #[id number] for Normal battery depletion with Dr. Morocho August 08, 2024 7:25am 1 wk s/p PPM generator change f/u August 142024 12:58pm Reason for Visit Admit Date Complete heart block July 29, 2024 12:5 2pm Paroxysmal atrial fibrillation July 29, 2024 12:52pm Presence of permanent cardiac pacemaker July 29, 2024 12:52pm snf current use of anticoagulant t herapy July 29, 2024 12:53pm Atherosclerotic heart diseas e of [place] coronary artery without angina pectoris July 29, 2024 12:53pm Hyperlipidemia July 29, 2024 12:53 pm Paroxysmal atrial fibrillation July 29, 2024 12:53pm Presence of permanent cardiac pacemaker July 29, 2024 12:53pm Complete heart block August 14, 2024 12:5 8pm Paroxysmal atrial fibrillation August 14, 2024 12:58pm Paroxysmal atrial flutter August 14, 2024 12:58pm Presence of permanent cardiac pacemaker August 14, 2024 12:58pm Sick sinus syndrome August 14, 2024 12:58 pm Chief Complaint Admit Date Pacer Check Remote May 19, 2024 5:47 pm Pacer Check Remote July 29, 2024 9:00a m Annual In-Clinic Check/Sees MH @ 1:30 Ma y 2024 12:52pm 1 Y FU/Sees Jade @ 1 July 29, 2024 12:53 pm #[id number] for Normal battery depletion with Dr. Morocho August 08, 2024 7:25am Pacer Check Remote August 14, 2024 9:00a m 1 wk s/p PPM generator change f/u August 142024 12:58pm Chief Complaint Admit Date Pacer Check Remote July 29, 2024 9:00a m Annual In-Clinic Check/Sees MH @ 1:30 Ma y 2024 12:52pm 1 Y FU/Sees Jade @ 1 July 29, 2024 12:53 pm #[id number] for Normal battery depletion with Dr. Morocho August 08, 2024 7:25am Pacer Check Remote August 14, 2024 9:00a m 1 wk s/p PPM generator change f/u August 142024 12:58pm Chief Complaint Admit Date Pacer Check Remote July 29, 2024 9:00a m Annual In-Clinic Check/Sees MH @ 1:30 Ma y 2024 12:52pm 1 Y FU/Sees Jade @ 1 July 29, 2024 12:53 pm #[id number] for Normal battery depletion with Dr. Morocho August 08, 2024 7:25am Pacer Check Remote August 14, 2024 9:00a m 1 wk s/p PPM generator change f/u August 142024 12:58pm attention to left submandibular gland Ju ly 2024 2:30pm Chief Complaint Admit Date Pacer Check Remote July 29, 2024 9:00a m Annual In-Clinic Check/Sees MH @ 1:30 Ma y 2024 12:52pm 1 Y FU/Sees Jade @ 1 July 29, 2024 12:53 pm #[id number] for Normal battery depletion with Dr. Morocho August 08, 2024 7:25am Pacer Check Remote August 14, 2024 9:00a m 1 wk s/p PPM generator change f/u August 142024 12:58pm attention to left submandibular gland Ju ly 2024 2:30pm INT ORDERS/XRAY ABDOMINAL November 06, 2 025 12:39pm Pacer Check Remote November 07, 2024 2: 00am Additional Source Comments INFORMATION SOURCE (unrecogn ized section and content) DATE CREATED AUTHOR 05/30/2018 [facility] DATE CREATED AUTHOR AUTHOR'S ORGANIZ ATION 04/27/2021 [facility] DATE CREATED AUTHOR AUTHOR'S ORGANIZ ATION 11/16/2024 [facility] [place], [place] Goals (unrecognized section and content) Goals may be documented in a n alternate sectionGoals may be documented in an alternate sectionGoals may be documented in an alternate sectionGoals may be documented in an alternate sectionGoals may be documented in an alternate sectionGoals may be documented in an alternate sectionGoals may be documented in an alternate sectionGoals may be documented in an alternate sectionGoals may be documented in an alternate sectionGoals may be documented in an alternate sectionGoals may be documented in an alternate sectionGoals may be documented in an alternate sectionGoals may be documented in an alternate sectionGoals may be documented in an alternate sectionGoals may be documented in an alternate sectionGoals may be documented in an alternate sectionGoals may be documented in an alternate sectionGoals may be documented in an alternate sectionGoals may be documented in an alternate sectionGoals may be documented in an alternate sectionGoals may be documented in an alternate sectionGoals may be documented in an alternate sectionGoals may be documented in an alternate sectionGoals may be documented in an alternate section Care Teams (unrecognized sec tion and content) Team Status: Active Member Role Status Dates Dr. Jian Viveros MD Primary Care Provider Active Team Status: Inactive Member Role Status Dates Dr. Jian Viveros MD Primary Care Provider Active Start: May 19, 2024 End: May 19, 2024 Dr. Pako Morocho MD Attending Provider Active S tart: May 19, 2024 End: May 19, 2024 Dr. Pako Morocho MD Referring Provider Active S tart: May 19, 2024 End: May 19, 2024 Team Status: Inactive Member Role Status Dates Dr. Jian Viveros MD Primary Care Provider Active Start: May 29, 2024 End: May 29, 2024 Dr. Jian Viveros MD Attending Provider Active Start: May 29, 2024 End: May 29, 2024 Dr. Jian Viveros MD Referring Provider Active Start: May 29, 2024 End: May 29, 2024 Team Status: Active Member Role Status Dates Dr. Jian Viveros MD Primary Care Provider Active Start: July 29, 2024 Dr. Jian Viveros MD Referring Provider Active Start: July 29, 2024 Nikki Tamayo Attending Provider Active Start: 2024 Team Status: Inactive Member Role Status Dates Dr. Jian Viveros MD Primary Care Provider Active Start: July 29, 2024 End: July 29, 2024 Dr. Jian Viveros MD Referring Provider Active Start: July 29, 2024 End: July 29, 2024 Dr. Jin Barnes MD Attending Provider Active Start: July 29, 2024 End: July 29, 2024 Team Status: Active Member Role Status Dates Dr. Jian Savage MD Family Provider Active Dr. Jian Viveros MD Primary Care Provider Active Team Status: Inactive Member Role Status Dates Dr. Jian Viveros MD Primary Care Provider, Referr ing Provider Active Dr. Clifford Pacheco MD Attending Provider Active Team Status: Active Member Role Status Dates Dr. Jian Viveros MD Primary Care Provider Active Dr. Dieter Johnson MD Attending Provider Active Team Status: Inactive Member Role Status Dates Dr. Jian Viveros MD Primary Care Provider Active Dr. Stanton Calles MD Attending Provider, Referring P rovider Active Team Status: Inactive Member Role Status Dates Dr. Jian Viveros MD Primary Care Provider, Referr ing Provider Active Dori Wong PA, PA Attending Provider Active Team Status: Active Member Role Status Dates Dr. Jian Viveros MD Primary Care Provider Active Dr. Dieter Johnson MD Attending Provider Active Dr. Stanton Calles MD Referring Provider Active Team Status: Inactive Member Role Status Dates Dr. Jian Viveros MD Primary Care Provider, Referr ing Provider Active Dr. Dieter Johnson MD Attending Provider Active Team Status: Inactive Member Role Status Dates Dr. Jian Viveros MD Primary Care Provider, Referr ing Provider Active Nikki Tamayo Attending Provider Active Team Status: Inactive Member Role Status Dates Dr. Jian Viveros MD Primary Care Provider Active Dr. Dieter Johnson MD Attending Provider, Referring Pro vider Active Team Status: Inactive Member Role Status Dates Dr. Jian Viveros MD Primary Care Provider Active Nikki Tamayo Active Dr. Pako Morocho MD Attending Provider, Referring Pro vider Active Team Status: Inactive Member Role Status Dates Dr. Jian Viveros MD Primary Care Pr ovider, Attending Provider, Referring Provider Active Team Status: Active Member Role Status Dates Dr. Jian Viveros MD Primary Care Provider Active Dori Wong PA, PA Referring Provider, Other Provider Active Dr. Pako Morocho MD Attending Provider Active Team Status: Active Member Role Status Dates Dr. Jian Viveros MD Primary Care Provider Active Dr. Dieter Johnson MD Admit Provider, Att ending Provider, Referring Provider, Other Provider Active Dr. Clint Montes MD Other Provider Active Team Status: Active Member Role Status Dates Dr. Jian Viveros MD Primary Care Provider Active Dr. Dieter Johnson MD Admit Provider, Ref erring Provider, Other Provider Active Dr. Clint Montes MD Other Provider Active LOLIS Marte Attending Provider Active Team Status: Inactive Member Role Status Dates Dr. Jian Viveros MD Primary Care Provider Active Dr. Dieter Johnson MD Admit Provider, Att ending Provider, Referring Provider Active Dr. Clint Montes MD Other Provider Active Team Status: Inactive Member Role Status Dates Dr. Jian Viveros MD Primary Care Provider Active Dori DANIELLE PA Attending Provider, Referr ing Provider Active Team Status: Inactive Member Role Status Dates Dr. Jian Viveros MD Primary Care Provider, Attend ing Provider Active Team Status: Inactive Member Role Status Dates Dr. Jian Viveros MD Primary Care Provider, Referr ing Provider Active Dr. Jin Barnes MD Attending Provider Active Team Status: Inactive Member Role Status Dates Dr. Jian Viveros MD Primary Care Provider Active Dr. Pako Morocho MD Attending Provider Active Team Status: Active Member Role Status Dates Dr. Jian Viveros MD Primary Care Provider Active Dr. Jin Barnes MD Attending Provider, Referring Provider Active Team Status: Inactive Member Role Status Dates Dr. Jian Viveros MD Primary Care Provider Active Dr. Jin Barnes MD Attending Provider, Referring Provider Active Team Status: Inactive Member Role Status Dates Dr. Jian Viveros MD Primary Care Provider Active Start: February 11, 2024 End: February 11, 2024 Dr. Jian Viveros MD Referring Provider Active Start: February 11, 2024 End: February 11, 2024 Dori DANIELLE PA Attending Provider Active Start: February 11, 2024 End: February 11, 2024 Team Status: Inactive Member Role Status Dates Dr. Jian Viveros MD Primary Care Provider Active Start: March 04, 2024 End: March 04, 2024 Dr. Jian Viveros MD Attending Provider Active Start: March 04, 2024 End: March 04, 2024 Dr. Jian Viveros MD Referring Provider Active Start: March 04, 2024 End: March 04, 2024 Team Status: Inactive Member Role Status Dates Dr. Jian Viveros MD Primary Care Provider Active Start: July 29, 2024 End: July 29, 2024 Dr. Jian Viveros MD Referring Provider Active Start: July 29, 2024 End: July 29, 2024 Nikki Tamayo Attending Provider Active Start: M ay 2024 End: July 29, 2024 Team Status: Inactive Member Role Status Dates Dr. Jian Viveros MD Primary Care Provider Active Start: July 29, 2024 End: July 29, 2024 Dr. Pako Morocho MD Attending Provider Active S tart: July 29, 2024 End: July 29, 2024 Team Status: Inactive Member Role Status Dates Dr. Jian Viveros MD Primary Care Provider Active Start: August 08, 2024 End: August 08, 2024 Dr. Pako Morocho MD Attending Provider Active S tart: August 08, 2024 End: August 08, 2024 Dr. Pako Morocho MD Referring Provider Active S tart: August 08, 2024 End: August 08, 2024 Team Status: Inactive Member Role Status Dates Dr. Jian Viveros MD Primary Care Provider Active Start: August 14, 2024 End: August 14, 2024 Dr. Jian Viveros MD Referring Provider Active Start: August 14, 2024 End: August 14, 2024 Nikki Tamayo Attending Provider Active Start: M ay 2024 End: August 14, 2024 Team Status: Inactive Member Role Status Dates Dr. Jian Viveros MD Primary Care Provider Active Start: July 29, 2024 End: July 29, 2024 Dr. Pako Morocho MD Attending Provider Active S tart: July 29, 2024 End: July 29, 2024 Dr. Pako Morocho MD Referring Provider Active S tart: July 29, 2024 End: July 29, 2024 Team Status: Inactive Member Role Status Dates Dr. Jian Viveros MD Primary Care Provider Active Start: August 14, 2024 End: August 14, 2024 Dr. Pako Morocho MD Attending Provider Active S tart: August 14, 2024 End: August 14, 2024 Team Status: Active Member Role/Relationship Status Dates Dr. Jian Viveros MD Primary Care Provider Active Team Status: Inactive Member Role/Relationship Status Dates Dr. Jian Viveros MD Primary Care Provider Active Start: July 29, 2024 End: July 29, 2024 Dr. Pako Morocho MD Attending Provider Active S tart: July 29, 2024 End: July 29, 2024 Dr. Pako Morocho MD Referring Provider Active S tart: July 29, 2024 End: July 29, 2024 Team Status: Inactive Member Role/Relationship Status Dates Dr. Jian Viveros MD Primary Care Provider Active Start: July 29, 2024 End: July 29, 2024 Dr. Pako Morocho MD Attending Provider Active S tart: July 29, 2024 End: July 29, 2024 Dr. Pako Morocho MD Referring Provider Active S tart: July 29, 2024 End: July 29, 2024 Team Status: Inactive Member Role/Relationship Status Dates Dr. Jian Viveros MD Primary Care Provider Active Start: July 29, 2024 End: July 29, 2024 Dr. Jian Viveros MD Referring Provider Active Start: July 29, 2024 End: July 29, 2024 Dr. Jin Barnes MD Attending Provider Active Start: July 29, 2024 End: July 29, 2024 Team Status: Inactive Member Role/Relationship Status Dates Dr. Jian Viveros MD Primary Care Provider Active Start: August 08, 2024 End: August 08, 2024 Dr. Pako Morocho MD Attending Provider Active S tart: August 08, 2024 End: August 08, 2024 Dr. Pako Morocho MD Referring Provider Active S tart: August 08, 2024 End: August 08, 2024 Team Status: Inactive Member Role/Relationship Status Dates Dr. Jian Viveros MD Primary Care Provider Active Start: August 14, 2024 End: August 14, 2024 Dr. Pako Morocho MD Attending Provider Active S tart: August 14, 2024 End: August 14, 2024 Team Status: Inactive Member Role/Relationship Status Dates Dr. Jian Viveros MD Primary Care Provider Active Start: August 14, 2024 End: August 14, 2024 Dr. Pako Morocho MD Attending Provider Active S tart: August 14, 2024 End: August 14, 2024 Dr. Pako Morocho MD Referring Provider Active S tart: August 14, 2024 End: August 14, 2024 Team Status: Inactive Member Role/Relationship Status Dates Dr. Jian Viveros MD Primary Care Provider Active Start: September 23, 2024 End: September 23, 2024 Dr. Jian Viveros MD Attending Provider Active Start: September 23, 2024 End: September 23, 2024 Dr. Jian Viveros MD Referring Provider Active Start: September 23, 2024 End: September 23, 2024 Team Status: Inactive Member Role/Relationship Status Dates Dr. Jian Viveros MD Primary Care Provider Active Start: October 13, 2024 End: October 13, 2024 Dr. Jian Viveros MD Attending Provider Active Start: October 13, 2024 End: October 13, 2024 Dr. Jian Viveros MD Referring Provider Active Start: October 13, 2024 End: October 13, 2024 Team Status: Inactive Member Role/Relationship Status Dates Dr. Jian Viveros MD Primary Care Provider Active Start: November 06, 2024 End: November 06, 2024 Dr. Jian Viveros MD Attending Provider Active Start: November 06, 2024 End: November 06, 2024 Dr. Jian Viveros MD Referring Provider Active Start: November 06, 2024 End: November 06, 2024 Team Status: Active Member Role/Relationship Status Dates Dr. Jian Viverso MD Primary Care Provider Active Start: November 07, 2024 Dr. Pako Morocho MD Attending Provider Active S tart: November 07, 2024 Team Status: Inactive Member Role/Relationship Status Dates Dr. Jian Viveros MD Primary Care Provider Active Start: November 07, 2024 End: November 07, 2024 Dr. Pako Morocho MD Attending Provider Active S tart: November 07, 2024 End: November 07, 2024 FOR RECORDS PERTAINING TO PATIENTS WHO ARE OR HAVE BEEN ENROLLED IN A CHEMICAL DEPENDENCY/SUBSTANCEABUSE PROGRAM, SOME INFORMATION MAY BE OMITTED. This clinical summary was aggregated from multiple sources. Caution should be exercised in using it in the provision of clinical care. This summary normalizes information from multiple sources, and as a consequence, information in this document may materially change the coding, format and clinical context of patient data. In addition, data may be omitted in some cases. CLINICAL DECISIONS SHOULD BE BASED ON THE PRIMARY CLINICAL RECORDS. [facility]. provides no warranty or guarantee of the accuracy or completeness of information in this document.
--- NOTE | 2024-11-16 17:50 | ED.RN ---
PT HAS BEEN STRUGGLING WITH CONSTIPATION AND WHILE RUSHING TO THE BATHROOM HAD A SYNCOPAL EPISODE. PT STATES SHE WAS TRYING TO HURRY D/T FEELING LIKE THE WAS HAVING A BM ON HERSELF. SHE STATES IT WAS AN EXPLOSION PT'S NEIGHBOR FOUND HER AND SHE HAD A BM ALL OVER HER. PT STATES SHE IS TO GET A HOLTER MONITOR SUNDAY. SHE CURRENTLY HAS A PACEMAKER/DEFIB.
--- NOTE | 2024-11-16 18:14 | ED.RN ---
BLOOD DRAWN BY A-EMT STUDENT, NATHAN
[2024-11-16] MEDS: 0.9% Normal Saline (1000mL) 1,000 ML 999 ML IV (18:16)
[2024-11-16 18:20] LABS: Hematocrit 33.4 % (37-47); Hemoglobin 11.6 g/dL (12.0-15.0); Immature Granulocytes Count 0.050 X10^3/uL (0.0-0.0); Mean Corp Hgb Conc 34.7 g/dL (32-36); Mean Corpuscular Volume 89.8 fL (81-99); Mean Platelet Vol. 9.5 fl (6.2-12.0); NRBC Flagged by Analyzer 0 % (0-5); Platelet Count 228 K/mm3 (150-450); RBC Distribution Width CV 13.1 % (11.6-14.6); RBC Distribution Width SD 42.7 fl (35.1-43.9); Red Blood Count 3.72 M/mm3 (4.2-5.4); White Blood Count 10.0 K/mm3 (4.4-11.0)
[2024-11-16 18:35] LABS: Troponin T High Sensitivity 19 ng/L (<=14)
--- NOTE | 2024-11-16 18:35 | RAD_ITS ---
PROCEDURE: CHEST PA AND LATERAL 11/16/2024 REASON FOR EXAM: SYNCOPE TECHNIQUE: Procedure Code: RADCXR Modality: DX Procedure: CHEST PA AND LATERAL COMPARISON: July 29, 2024 FINDINGS: Hardware: Dual lead pacemaker is in place with its lead tips overlying the right atrium and right ventricular apex. Heart: Normal-size. Coronary artery atherosclerosis. Aortic atherosclerosis. Mediastinum: No mass Lungs: Clear. No pneumothorax or pleural effusion. 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 Surgical clips over the left neck. RAD/Chest PA and Lateral IMPRESSION: No acute cardiopulmonary process. Coronary artery atherosclerosis. Pacemaker in place. Reading Location: [id number]
[2024-11-16 18:37] LABS: AST(SGOT) 101 U/L (<=31); Alanine Aminotransfer ALT/SGPT 96 U/L (<=34); Albumin, Serum 3.9 g/dL (3.4-4.8); Alkaline Phosphatase 96 U/L (35-104); Amylase 32 U/L (28-100); Anion Gap 15 (5-15); BUN 19 mg/dL (4-19); BUN/Creat Ratio 11.6 RATIO (10-20); Calcium,Total 9.2 mg/dL (7.6-11.0); Carbon Dioxide 19.1 mmol/L (21.0-32.0); Chloride 99 mmol/L (98-108); Estimated Creatinine Clearance 19.84 ml/min (50-250); Globulin 2.7 g/dL (2.2-4.2); Glucose 105 mg/dL (70-99); Lipase 53 U/L (13-75); Potassium 3.7 mmol/L (3.3-5.1)
--- NOTE | 2024-11-16 18:52 | CM.ED ---
Social Work Date of referral: 11/16/24 Reason for referral: Advanced Care Directives (ACD's) not on file. Referred by: Social Work Identification Patient provided consent to social work visit. cut and cover line worker requested patient to bring in a copy of the ACD's which patient was agreeable to. Destinee Menendez, HOME VISITOR, AUTOMATIC SCREWMAKER
[2024-11-16 19:10] LABS: Mucous, Urine 0 SEEN /hpf (<or=2+)
[2024-11-16 19:12] LABS: Color, Urine Yellow (Yellow); Glucose, Dipstick Normal (Normal); Ketone-Dipstick 5 mg/dl (Negative); Leukocyte Esterase-Dipstick 100 /ul (Negative); Nitrite-Dipstick Negative (Negative); Occult Blood-Urine 10 /ul (Negative); Protein-Dipstick 30 mg/dl (Negative); Specific Gravity, Urine 1.005 (1.002-1.030); Urine Bilirubin Dipstick Negative (Negative)
[2024-11-16 19:44] LABS: Red Blood Cells-Urine 0-5 SEEN /hpf (0-5); Squamous Epithelial Cells - UA 0-5 SEEN /hpf (5-10)
--- NOTE | 2024-11-16 21:56 | HP.PCM.HOS_ITS ---
[facility] - General General Date of Admission: 11/16/24 Date of Service: 11/16/24 Chief Complaint: Syncope and Abdominal Pain. [facility] Narrative MICK CHINCHILLA, is a 89 F with a past medical history of essential hypertension; on amlodipine, hypothyroidism; levothyroxine, overweight; with BMI 25.9 this admission, CAD; s/p NSTEMI with LCx stent (2017), paroxysmal atrial fibrillation; on amiodarone and apixaban twice daily, history of SSS; s/p PPM (2006 with generator change 2015), history of nonrheumatic mitral valve prolapse, history of Left DVT/PE (2019), history of bilateral carotid artery stenosis; s/p Left CEA, history of recurrent syncope with multiple falls, former tobacco abuse (quit 1995); subsequent COPD, history of vertigo, RLS, history of diverticulosis, GERD; on omeprazole and OA; s/p back surgery causing patient ambulating with cane at baseline who presents [facility] ER complaining of syncope and abdominal pain. Ms. Chinchilla reports her symptoms began over the last several weeks with intermittent abdominal pain complicated by intermittent alternating constipation and diarrhea. She informed the ER provider she had multiple bowel movements yesterday and today and today while walking in her home she had a syncopal event and woke up on the floor. She hit her head and she noted neck pain but she denies blood in stools. She denies associated fever, chills, changes in vision, discharge from eyes, runny nose, sore throat, ear pain, chest pain, palpitations, heart racing, lower extremity edema, shortness of breath, cough, dysuria, hematuria, headache or rash. In the ER she was noted to have clinical evidence of Generalized Weakness with Ambulatory Dysfunction with unremarkable vital signs, laboratory studies and imaging with CT scan of the head that revealed no evidence of ICH or acute ischemia with chronic microvascular ischemia and volume loss with CT scan of the cervical spine without contrast that revealed multilevel degenerative changes in addition to CT scan of the abdomen and pelvis without IV contrast that showed no acute abnormality plus CXR that revealed no acute cardiopulmonary process with coronary artery atherosclerosis with pacemaker in place in the setting of known recurrent syncope with multiple falls. She was then admitted to the PCU for syncope evaluation in addition to investigation for cause of diarrhea and abdominal pain for status is expected to extend beyond 2 midnights. PFSH Medical History (Updated 11/16/24 @ 23:57 by Niyah Clarke) ICD (implantable cardioverter-defibrillator) in place History of steroid therapy Vertigo Seasonal allergies Wears glasses Wears dentures Post-menopausal Depression Ambulates with cane Walker as ambulation aid Arthritis DVT (deep venous thrombosis) Easy bruising Excessive bleeding Restless legs History of ulceration Gastric reflux On home oxygen therapy Former smoker Chronic cough Leg cramps History of echocardiogram Cardiology follow-up encounter History of atrial fibrillation Atrial fibrillation with rapid ventricular response (01/21/20) Paroxysmal atrial fibrillation Paroxysmal atrial flutter Bilateral carotid artery stenosis Right bundle branch block (RBBB) with left anterior fascicular block Right pulmonary embolus (08/17/19) Lichen sclerosus Osteoarthritis Bone spur of foot Hypothyroidism COPD (chronic obstructive pulmonary disease) Ganglion cyst of left foot Essential (primary) hypertension Hyperlipidemia Complete heart block Sick sinus syndrome Diverticulosis GERD (gastroesophageal reflux disease) Anxiety Fatigue Dizziness and giddiness Intermittent chest pain Atherosclerotic heart disease of [place] coronary artery without angina pectoris Nonrheumatic mitral (valve) prolapse NSTEMI (non-ST elevated myocardial infarction) (05/30/17) Home Medications ?Medication ?Instructions ?Recorded ?Last Taken ?Type nitroglycerin 0.4 mg sublingual 0.4 mg sublingual Q5-1 5M PRN chest 08/03/18 Unknown Rx tablet pain #25 tabs vit C 250 mg-vit E 90 mg-zinc 40 1 cap PO BID eye heal th 12/04/21 12/03/21 History mg-copper 1 [id number] capsule (PreserVision AREDS-2) albuterol sulfate 90 mcg/actuation 2 puff inhalation Q 4H PRN 06/19/23 Unknown History aerosol inhaler shortness of breath or wheez ing cholecalciferol (vitamin D3) 125 125 mcg PO DAILY supp lement 06/19/23 Unknown History mcg (5,000 unit) capsule fluticasone propionate 50 1 spray intranasal DAILY 05/12 Unknown History mcg/actuation nasal spray,suspension vitamin B complex 1 tab PO DAILY supplement Unknown History amiodarone 200 mg tablet 200 mg PO DAILY heart #90 ta bs 06/30/24 Unknown Rx omeprazole 40 mg capsule,delayed 40 mg PO QAM 07/29/24 Unknown History release apixaban 5 mg tablet 5 mg PO BID blood thinner #1 80 tabs 09/17/24 Unknown Rx amlodipine 10 mg tablet 10 mg PO DAILY 11/16/24 Unkn own History levothyroxine 100 mcg tablet 100 mcg PO DAILY 11/16/24 Unknown History Allergy/AdvReac Type Severity Reaction Status Date / Time Penicillins (PCN) Allergy Hives Verified 07/29/24 13:27 aspirin AdvReac Severe Severe GI Verified 07/29/24 13:27 upset atorvastatin AdvReac Severe elevated Verified 07/29/24 13:27 liver enzymes metformin AdvReac gi upset Verified 07/29/24 13:27 Family History Father Cancer lung cancer Heart disease Mother CVA (cerebral vascular accident) Hypertension Sister Hypertension Cancer lung cancer Son Diabetes Hypertension Myocardial infarction, Onset Age: 48 Surgical History History of cardioversion (04/19/20) History of left heart catheterization (09/10/17) H/O excision of ganglion cyst History of back surgery History of hysterectomy History of carpal tunnel release H/O bladder repair surgery History of appendectomy Presence of permanent cardiac pacemaker (04/19/15) History of coronary artery stent placement (05/31/17) Social History Smoking Status: Former smoker alcohol intake: never substance use type: does not use caffeine: Yes Type: coffee Number of servings: 3 what type of physical activity do you participate in: none seatbelt use: always do you feel safe at home: Yes ROS ROS Narrative Review of Systems: Constitutional: Patient denies fever or chills. Eyes: Patient denies change in vision or discharge from eyes. ENT: Patient denies runny nose, sore throat or ear pain. Resp: Patient denies shortness of breath or cough. CV: Patient admits to syncopal event with loss of consciousness but she denies chest pain, palpitations, heart racing or lower extremity edema. GI: Patient admits to generalized cramping abdominal pain with alternating constipation and diarrhea as per HPI. She denies nausea, vomiting or blood in stools. : Patient denies dysuria, hematuria or urinary frequency. MSK: Patient denies arthralgias or myalgias. Skin: Patient denies rash, abscess, wounds or jaundice. Psych: Patient denies symptoms of uncontrolled depression or anxiety. Neuro: Patient denies headache, paresthesias or focal neurologic deficits. Allergy: Patient denies lip swelling, tongue swelling or urticaria. Hematology: Patient admits to easy bleeding and easy bruisability on apixaban. Endocrinology: Patient denies polyuria, polydipsia, polyphagia or heat/cold intolerance. 14 point ROS otherwise negative except for positives noted above in HPI. Vital Signs Vital Signs Vital Signs: 11/16/24 17:17 11/16/24 17:46 11/16/24 19:16 Temperature 97.6 F L Temperature Source Oral Pulse Rate 60 69 Respiratory Rate 16 18 Respiratory Effort Normal Respiratory Pattern Normal Blood Pressure 154/68 H 122/86 H Blood Pressure Mean 96 98 Pulse Ox 100 97 Oxygen Delivery Method Room Air Room Air 11/16/24 20:51 11/16/24 21:00 11/16/24 21:52 Temperature 98.1 F Temperature Source Pulse Rate 60 60 79 Respiratory Rate 18 11 L 19 H Respiratory Effort Respiratory Pattern Blood Pressure 130/56 H 156/71 H Blood Pressure Mean 80 99 Pulse Ox 100 100 95 Oxygen Delivery Method Weight Weight: 132 lb 11.492 oz Body Mass Index (BMI) 25.9 Physical Exam Const alert, oriented x3, no apparent distress and average body habitus Constitutional Narrative: Patient is chronically ill but nontoxic appearance. General Appearance: cooperative HEENT normocephalic, head/scalp atraumatic, hearing grossly normal bilaterally and moist oral mucous membranes Eyes PERRL, EOMs intact bilaterally and conjunctivae normal Neck no lymphadenopathy, supple and no JVD Resp normal respiratory effort, no retractions, no use of accessory muscles and clear to auscultation bilaterally Cardio regular rate and regular rhythm GI normal to inspection, nondistended, normoactive bowel sounds, soft to palpation, non-tender and non-distended Extremity normal to inspection, full ROM and no clubbing, cyanosis or edema Skin Skin Narrative: Patient has no evidence of rash, abscess, wounds or jaundice. Neuro oriented x3, CN's II-XII intact bilaterally, moves all extremities and no focal motor deficits Sensorium / Orientation: awake, alert, oriented to person, oriented to place and oriented to time Speech: speech normal Psych affect normal Results Medical Records Data Attestation: I reviewed the patient's medical records Lab / Micro Data Attestation: I reviewed the patient's lab results. 11/16/24 18:00 11/16/24 18:00 Labs: Laboratory Results - last 24 hr 11/16/24 18:00: WBC 10.0, RBC 3.72 L, Hgb 11.6 L, Hct 33.4 L, MCV 89.8, MCH 31.2, MCHC 34.7, RDW Std Deviation 42.7, RDW Coeff of Guy 13.1, Plt Count 228, MPV 9.5, Immature Gran % (Auto) 0.500, Neut % (Auto) 85.8 H, Lymph % (Auto) 7.1 L, [place] % (Auto) 6.4, Eos % (Auto) 0.0, Baso % (Auto) 0.2, Absolute Neuts (auto) 8.6 H, Absolute Lymphs (auto) 0.71 L, Nucleated RBC % 0, Sodium 134, Potassium 3.7, Chloride 99, Carbon Dioxide 19.1 L, Anion Gap 15, BUN 19, Creatinine 1.62 H , Estim Creat Clear Calc 19.84 L, Est GFR (MDRD) Non-Af 31 L, BUN/Creatinine Ratio 11.6, Glucose 105 H, Calcium 9.2, Total Bilirubin 0.78, AST 101 H, ALT 96 H, Alkaline Phosphatase 96, Troponin T High Sens 19 H, Total Protein 6.6, Albumin 3.9, Globulin 2.7, Albumin/Globulin Ratio 1.5, Amylase 32, Lipase 53 11/16/24 19:05: Urine Color Yellow, Urine Clarity Clear, Urine pH 7.0, Ur Specific [place] 1.005, Urine Protein 30 H, Urine Glucose (UA) Normal, Urine Ketones 5 H, Urine Occult Blood 10 H, Urine Nitrite Negative, Urine Bilirubin Negative, Urine Urobilinogen Normal, Ur Leukocyte Esterase 100 H, Urine RBC 0-5 SEEN, Urine WBC 0-5 SEEN, Ur Squamous Epith Cells 0-5 SEEN, Urine Bacteria RARE, Urine Mucus 0 SEEN Rhythm Strip Rhythm Strip: Paced Rate: 60 Ectopy: None Imaging Radiology Impression Brain CT 11/16/24 17:42 IMPRESSION: 1. No evidence of intracranial hemorrhage or acute ischemia. 2. Changes of chronic microvascular ischemia and volume loss. Reading Location: [facility] Cervical Spine CT 11/16/24 17:42 IMPRESSION: No fracture. Multilevel degenerative changes. Reading Location: [facility] Abdomen/Pelvis CT 11/16/24 17:43 IMPRESSION: 1. No acute abnormality. 2. Small sliding hiatus hernia. 3. 7 mm hypodensity right hepatic lobe is new and nonspecific. Mild intrahepatic duct dilation similar to prior exam. Correlate with laboratory values. If desired, nonemergent MRI of the liver could be performed to fully characterize the lesion. 4. Advanced atherosclerosis without aneurysm. 5. Hysterectomy Reading Location: [facility] Chest X-Ray 11/16/24 18:35 IMPRESSION: No acute cardiopulmonary process. Coronary artery atherosclerosis. Pacemaker in place. Reading Location: [facility] Assessment & Plan Assessment/Plan (1) Syncope and collapse: (2) Frequent falls: (3) Diarrhea: QUALIFIERS: Diarrhea type: presumed infectious Qualified Code(s): R19.7 - Diarrhea, unspecified (4) Abdominal pain: QUALIFIERS: Abdominal location: generalized Qualified Code(s): R 10.84 - Generalized abdominal pain (5) Intermittent constipation: (6) Paroxysmal atrial fibrillation: (7) halfway current use of anticoagulant therapy: (8) Overweight (BMI 25.0-29.9): PLAN: Plan 1. Syncope and Collapse in the setting of previously known recurrent syncope; multiple falls - Admit to PCU. Check new echocardiogram to reevaluate LVEF with last one done in July 2023 that revealed LVEF ~65% with indeterminate diastolic dysfunction, mild (1+) mitral valve insufficiency with moderately enlarged Left atrium. Check carotid Doppler to evaluate for stenosis. Serialize troponin. Otherwise, gently volume resuscitate and monitor for improvement. 2. Diarrhea with Abdominal Pain and intermittent Constipation complicating #1 - Check stool studies and place on enteric precautions. Give acetaminophen as needed for [id number] (level 1-5/10) pain or fever. Give morphine IV as needed for severe (level 6-10/10) pain. 3. Generalized Weakness with Ambulatory Dysfunction attributable to #1 & #2 in the setting of previously known OA; s/p back surgery causing patient ambulating with cane at baseline - PT/OT and Case Management to see this patient on-rounds in the AM fo further recommendations with help appreciated in advance. 4. Paroxysmal atrial fibrillation; on amiodarone and apixaban twice daily adding to the medical complexity of #1 - #3 - This patient is a poor candidate for DOAC with recurrent falls as risks probably outweigh any potential benefits, but will defer final decision to stop to dayshift hospitalist/cardiology. 5. Overweight; with BMI 25.9 this admission - Weight loss will be recommended. Check TSH. 6. Essential hypertension; on amlodipine - Continue amlodipine as previous. 7. Hypothyroidism; levothyroxine - Maintain levothyroxine and check TSH. 8. CAD; s/p NSTEMI with LCx stent (2017) - Noted. 9. History of SSS; s/p PPM (2006 with generator change 2015) - Noted with PPM functioning at time of admission. 10. History of nonrheumatic mitral valve prolapse - Noted. 11. History of Left DVT/PE (2019) - Noted. 12. History of bilateral carotid artery stenosis; s/p Left CEA - We are checking carotid Doppler for #1. 13. Former tobacco abuse (quit 1995); subsequent COPD - Stable with no evidence of acute flare a this time. Give nebulizers prn. 14. RLS - Stable. 15. History of diverticulosis - Noted. 16. GERD; on omeprazole - Maintain PPI. 17. DVT prophylaxis - Patient on apixaban for #4 which will be continued for now. Total time: Approximately (but not less than) 75 minutes. Charges/Coding Visit Charges Inpatient E&M: 49759 Init Hosp L3
--- NOTE | 2024-11-16 22:43 | CDU_ITS ---
Reason For Study Reason For Study: STENOSIS Rt. Velocities/BP Lt. Velocities/BP Prox CCA 83.3/10.8 cm/sec. Prox CCA 108.9/19.4 cm/sec. Mid CCA 105.2/19.4 cm/sec. Mid CCA 101.6/19.4 cm/sec. Dist CCA 74.4/15.5 cm/sec. Dist CCA 97.9/19.4 cm/sec. Prox ICA 314.8/33.8 cm/sec. Prox ICA 79.3/19.2 cm/sec. Mid ICA 59.1/8.6 cm/sec. Mid ICA 83.2/21.1 cm/sec. Dist ICA 81.0/15.1 cm/sec. Dist ICA 65.5/19.3 cm/sec. Rt. ICA/CCA = 314.8/105.2=3.0. Lt. ICA/CCA = 83.2/101.6=0.8. Prox ECA 331.1/29.2 cm/sec. Prox ECA 94.2/12.1 cm/sec. Rt. Vert. 61.3/9.7 cm/sec. Lt. Vert. 45.0/11.0 cm/sec. Right Extracranial There is homogeneous, smooth atherosclerotic plaque noted in the right common carotid artery. There is heterogeneous, irregular atherosclerotic plaque noted in the right internal carotid artery. There is heterogeneous, irregular atherosclerotic plaque noted in the right external carotid artery. Antegrade flow is noted in the right vertebral artery. There is heterogeneous, irregular atherosclerotic plaque noted in the right bulb. Left Extracranial There is heterogeneous, smooth atherosclerotic plaque noted in the left common carotid artery. There is homogeneous, smooth atherosclerotic plaque noted in the left internal carotid artery. There is intimal thickening but no significant atherosclerotic plaque noted in the left external carotid artery. Antegrade flow is noted in the left vertebral artery. Procedure Carotid Duplex 30571. This is a Carotid Duplex examination using B-mode, color flow and specral Doppler. Exam performed portable in patient room. VL/Carotid Duplex Ultrasound Interpretation Summary Severe (>70%) stenosis right extracranial internal carotid. Mild (<50%) stenosi s left extracranial internal carotid. Flow within the vertebral arteries is antegrade bilaterally. Elevated velocitie s are noted in the right external carotid artery, indicative of stenosis >50%. Ordering Physician: Randall Eid Referring Physician: Jian Viveros Performed By: Estelita Yo RVT, RDCS and Student
--- NOTE | 2024-11-16 22:43 | ECHOD_ITS ---
Reason For Study Reason For Study: Syncope Procedure This was a 2D Doppler, Color Flow transthoracic echocardiogram. Exam performed portable in patient room. Left Ventricle Normal left ventricle. The estimated ejection fraction is 55???60 %. Right Ventricle Normal right ventricle. Normal systolic function. Atria Normal left atrium. Normal right atrium. Mitral Valve The mitral valve is structurally normal. No prolapse or stenosis seen. Mild (1+) mitral valve insufficiency. Tricuspid Valve Normal tricuspid valve. Mild (1+) tricuspid valve insufficiency. Aortic Valve Trisinus/trileaflet aortic valve. Pulmonic Valve The pulmonic valve is not well visualized. Great Vessels The aortic root is not well visualized. Pericardium/Pleural No pericardial effusion. MMode/2D Measurements & Calculations LVIDd: 4.1 cm IVSd: 1.0 cm Ao root diam: 1.1 cm LVIDs: 2.4 cm LVPWd: 1.1 cm RVDd: 3.7 cm FS: 41.5 % LAV(MOD-bp): 51.3 ml LVAd ap4: 22.1 cm2 SV(MOD-sp4): 38.7 ml LAV(MOD-bp) Indexed: 33.4 ml/m2 LVLd ap4: 6.7 cm SI(MOD-sp4): 25.3 ml/m2 LAV(MOD-sp2): 37.9 ml EDV(MOD-sp4): 59.9 ml LAV(MOD-sp4): 52.2 ml EDV(sp4-el): 61.8 ml LVAs ap4: 11.3 cm2 LVLs ap4: 5.6 cm ESV(MOD-sp4): 21.1 ml ESV(sp4-el): 19.3 ml EF(MOD-sp4): 64.7 % EF(sp4-el): 68.7 % SV(sp4-el): 42.5 ml LA A4 area: 18.8 cm2 LA dimension(2D): 4.5 cm RA A4 area: 11.7 cm2 Time Measurements MV dec time: 0.21 sec Doppler Measurements & Calculations MV E max james: 78.0 cm/sec Lat Peak E' James: 15.6 cm/sec Med Peak E' James: 7.3 cm/sec MV A max james: 58.9 cm/sec E/E' lat: 5.0 E/E' med: 10.7 MV E/A: 1.3 MV V2 max: 95.1 cm/sec MV P1/2t max james: 97.1 cm/sec Ao V2 max: 121.9 cm/sec MV max P.6 mmHg MV P1/2t: 79.6 msec Ao max P.0 mmHg MV V2 mean: 47.7 cm/sec Ao V2 mean: 84.4 cm/sec MV mean P.1 mmHg MV dec slope: 357.3 cm/sec2 Ao mean P.3 mmHg MV V2 VTI: 29.8 cm MVA(P1/2t): 2.8 cm2 Ao V2 VTI: 27.8 cm AV (velocity ratio): 0.64 LV V1 max: 79.0 cm/sec MR max james: 415.9 cm/sec PA V2 max: 73.0 cm/sec LV V1 max P.5 mmHg MR max P.2 mmHg LV V1 mean P.5 mmHg LV V1 mean: 56.4 cm/sec LV V1 VTI: 17.8 cm TR max james: 288.1 cm/sec TR max P.3 mmHg ECHO/Echo Complete Interpretation Summary The estimated ejection fraction is 55???60 %. Normal LV systolic function Mild MR Mild TR In comparison to previous echocardiogram no significant change. Ordering Physician: Randall Eid Performed By: Jesus Manuel Tovar RCS
--- OUTSIDE RECORDS SUMMARY | 2024-11-16 22:53 | XMS RPT_ITS | CCD ---
Author Organization [facility] CliniSysc Care Team Providers Care C Wpf Developer Name Role Phone Rox Huerta Unavailable [facility] Unavailable Ernesto Vargas Unavailable Lennox Leger Unavailable Geoff Reyna Unavailable MessengerNinoska Unavailable Unavailable Slarb, Donna Unavailable Unavailable Unavailable Unavailable Rox Huerta Attending Unavailable Rox Huerta Referring Unavailable Rox Huerta Consulting Unavailable Rox Huerta Unavailable [facility] Unavailable Ernesto Vargas A Unavailable Lennox Leger Unavailable Geoff Reyna Unavailable Messenger, Ninoska Unavailable Unavailable Slarb, Donna Unavailable Unavailable Unavailable Unavailable Gravius, Yumiko Unavailable Unavailable Bologna Ernesto Unavailable Gravius, Yumiko Unavailable Unavailable Messenger, Ninoska Unavailable Unavailable Dr. Jian Savage Primary Care Provider Dr. Jian Savage Referring Provider Dr. Pako Morocho Attending Provider Dr. Jian Viveros Primary Care Provider Dr. Jian Viveros Referring Provider [phone] Dr. Jian Viveros Other Provider Dr. Deepak [...] Provider Nikki Tamayo Attending Provider Unavailable Dr. Dieter Johnson Attending Provider Dr. Jian Viveros Primary Care Provider Dr. Jian Viveros Referring Provider Nikki Tamayo Attending Provider Unavailable Dr. Jian Viveros Primary Care Provider Dr. Pako Morocho Attending [...] Jian Viveros MD Primary Care Provider [phone] Dr. Jian Viveros MD Attending Provider Dr. [...] Provider Dr. Jian Viveros MD Attending Provider [phone] Jian Viveros Primary Care Unavailable Rashawn, Pako Attending Unavailable Rashawn, [place] Referring Unavailable Schinner, Jian E Primary Care Unavailable Rashawn, [place] Attending Unavailable Schinner, Jian E Primary Care Unavailable Dori Goodman Attending Unavail able Schinner, Jian E Referring Unavailable Rashawn, Pako Attending Unavailable Schinner, Jian E Primary Care Unavailable Rashawn, Pako Referring Unavailable Schinner, Jian E Primary Care Unavailable Rashawn, Pako Attending Unavailable Schinner, Jian E Primary Care Unavailable Rashawn, [place] Referring Unavailable Rashawn, Pako Attending Unavailable Schinner, Jian E Primary Care Unavailable Rashawn, [place] Attending Unavailable Rashawn, [place] Referring Unavailable Schinner, Jian E Referring Unavailable [...] Schinner, Jian E Primary Care Unavailable Rashawn, [place] Attending Unavailable Rashwan, [place] Referring Unavailable Allergies Allergy Classification Reported Allergen(s) [...] Aspirin Drug Allergy 05-25-19 Severe GI upset [facility] (20 sources) atorvastatin Drug Allergy 05-25-19 elevated liver enzymes [facility] (20 sources) metFORMIN Drug Allergy 05-25-19 gi upset [facility] (1 source) Aspirin Drug Allergy 07-30-19 [facility] Repository (1 source) atorvastatin Drug Allergy 07-30-19 [facility] Repository (1 source) metFORMIN Drug Allergy 07-30-19 [facility] Repository Medications Current Medications Medication Drug Class(es) Dates Sig (Normalized) Sig (Original) [id number] 200 actuat albuterol 0.09 mg/actuat metered dose [...] Start: 04-16-2015 take 1000 [IU] by mo [facility] once daily Cholecalciferol (Vitamin D3) [...] 1 puff(s) by inhalation once daily Tiotropium [place] (Spiriva Respimat) 2.5 mcg/actuation mist Active 2 PUFF INHALATION DAILY August 20, 2020 12:00am Start: 03-27-2012 End: 01-20-2016 take 1 capsule by inhalation once daily Spiriva HandiHaler 18 MCG Inhalation Capsule 1 Capsule qd for 0 days Quantity: 3 {Capsule} Refills: 3 Ordered: 20-Jan-2016 Ninoska Kemp RN Start : 27-Mar-2012 End : 20-Jan-2016 Inactive Vit C,X-Fm-Toaen-Lutein-Zeax an (Preservision Areds-2) 250-90-40-1 mg Capsule (20 sources) Start: 12-04-2021 take 2 capsules by mouth twice daily Vit C,P-Qa-Krota-Lutein-Zeaxan (Preservision Areds-2) 250-90-40-1 mg Capsule Active 1 NMA PO TWICE A DAY December 04, 2021 12:00am eye health Start: 12-04-2021 take 2 capsules by m outh twice daily Vit C,Y-Hn-Nahfu-Lutein-Zeaxan (Preservision Areds-2) 250-90-40-1 mg Capsule Active 1 NMA PO TWICE A DAY December 04, 2021 12:00am Start: 12-04-2021 Vit C,E-Zn-Pressure Controller he-Lfkhuv-Jcdrdn (Preservision Areds-2) 250-90-40-1 mg Capsule Active 1 CAP PO TWICE A DAY December 03, 2021 11:00pm Start: 12-04-2021 Vit C,E-Zn-Pressure Controller ae-Nyuank-Jiatva (Preservision Areds-2) 250-90-40-1 mg Capsule Active 1 [...] 1 {Package} Refills: 0 Ordered: 21-May-2017 Slarb STABLE HELPER, Donna Start : 05-Apr-2017 End : 21-May-2017 [...] Quantity: 20 {Tablet} Refills: 0 Ordered: 06-Mar-2016 Ninoska Kemp RN Start : 08-Feb-2016 End : [...] 6 {Ounce} Refills: 0 Ordered: 11-Aug-2015 Gianna Pereira Start : 16-Mar-2014 End : 11-Aug-2015 Inactive [...] Oral Tablet 1/2 bid (25 MG) Active My-Nr-Ffof-Fa-Herbal Cmplx#1 90 (Vitamin D3 Complete) 18 mg iron-800 mcg-150 mg Tablet (16 sources) Start: 07-17-2022 End: 06-19-2023 Mi-Rw-Aigf-Fa-Herbal Cmplx#1 90 (Vitamin D3 Complete) 18 mg iron-800 mcg-150 mg Tablet Discontinued 1 {tbl} PO DAILY July 17, 2022 12:00am June 19, 2023 10:54am SUPPLEMENT Start: 07-17-2022 End: 06-19-2023 Kf-Gd-Vjfn-Fa-Herbal Cmplx#1 90 (Vitamin D3 Complete) 18 mg iron-800 mcg-150 mg Tablet Discontinued 1 {tbl} PO DAILY July 17, 2022 12:00am June 19, 2023 10:54am Start: 07-17-2022 End: 06-19-2023 take 1 tablet by mouth once daily Zn-Hy-Uofu-Fa-Herbal Cmplx#190 (Vitamin D3 Complete) 18 mg iron-800 mcg-150 mg Tablet Discontinued 1 TABLET PO DAILY July 17, 2022 12:00am June 19, 2023 10:54am Start: 07-17-2022 take 1 tablet by casey th once daily Iv-Iy-Njvh-Fa-Herbal Cmplx#190 (Vitamin D3 Complete) 18 mg iron-800 mcg-150 mg Tablet Active 1 TABLET PO DAILY July 16, 2022 11:00pm Start: 07-17-2022 take 1 tablet by casey th once daily Ml-Uo-Aoxx-Fa-Herbal Cmplx#190 (Vitamin D3 Complete) 18 mg iron-800 [...] Coronary atherosclerosis of unspecified type of vessel, [place] or graft; Translations: [Coronary atherosclerosis] 01-21-2018 Chronic [...] [Vaginal Delivery] 01-21-2018 Episodic Comment on above: [id number] Nutritional deficiencies (20 sources) Vitamin D deficiency; [...] sources) Long-term current use of anticoagulant; Translations: [watermaster (current) use of anticoagulants] 09-24-2023 Episodic Other aftercare (1 source) watermaster (current) use of anticoagulants; Translations: [longterm (current) use of anticoagulants] Onset: 5 Episodic [...] Comment on above: fell 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 Jian Viveros MD Status: REG CLI Study: Abdomen Limited Date of Exam: 11/14/24 Exam# [id number] Ordering Dr: Jian Viveros MD PROCEDURE: ABDOMEN [...] and small nonobstructive intrarenal calculus. Reading Location: [id number] CC: Dr. Jian Viveros MD Qc Chemist: Signed Normal [facility] L3300.8200on 11-14-2024 VITAMIN B6 19.6 ug/L Normal 3.4-65.2 [facility] Comment on above: Order Comment: Test( s) 447692-Xstvxkm B6was developed and its performance characteristicsdetermined by [facility]. It has not been cleared or approvedby the Food and Drug Administration. Result Comment: Defi ciency: <3.4 Marginal: 3.4 - 5.1 Adequate: >5.1 Performed By: #### L 503.0106, L3300.8200, L400.0001, L501.0900, L506.1001, L3300.8000 ####[facility] [address] [place], [place], [address] Vitamin B1, Thiamineon 11-14 VIT B1 THIAMINE 108.3 nmol/L Normal 66.5-200.0 [facility] Comment on above: Order Comment: Test( s) 523285-Comgisg B6was developed and its performance characteristicsdetermined by [facility]. It has not been cleared or approvedby the Food and Drug Administration. Result Comment: Perf ormed at: - [facility] [address] [id number] Ground Operations Supervisor: Rick Boone MD, Phone: [phone] Performed By: #### L 503.0106, L3300.8200, L400.0001, L501.0900, L506.1001, L3300.8000 ####[facility] [address] [facility] [place], [address] Absolute lymphocyte countOrd ered By: Jian Viveros on 11-06-2024 Lymphocytes Auto (Unsp spec) [#/Vol] 1.26 10*3/uL 0.83-4.51 [facility] Absolute neutrophil countOrd ered By: Jian Viveros on 11-06-2024 Neutrophils (Bld) [#/Vol] 7.5 10*3/uL 2.0-7.7 [facility] Acute Abdomen Inc Cheston Acute Abdomen Inc Chest [facility] Imaging Services [address] [place] [address] Acute Abdomen Inc Chest MR#: [id number] Acct: [id number] Name: TRINIDAD PARKER Rep #: [id number] : 1935 F 89 From: Ernestine Weeks MD PCP: Dr. Jian Viveros MD Status: REG CLI Study: Acute Abdomen Inc Chest Date of Exam: 11/06/24 Exam# [id number] Ordering Dr: Jian Viveros MD PROCEDURE: ACUTE [...] Chest IMPRESSION: NO ACUTE FINDINGS. Reading Location: [id number] CC: Dr. Jian Viveros MD Qc Chemist: Signed Normal [facility] Anion gap in Serum or Plasma Ordered By: Jian Viveros on 11-06-2024 Anion gap [Moles/Vol] 17 mmol/L High 5-15 [facility] Automated lymphocyte count a s percentage of total leukocytesOrdered By: Jian Viveros on 11-06-2024 Lymphocytes/100 WBC Auto (Unsp spec) 13.3 % Low 19-41 [facility] BUN/creatinine ratioOrdered By: Jian Viveros on 11-06-2024 Urea nitrogen/Creatinine [Mass ratio] 13.3 mg/mg 10-20 [facility] Basophil percentageOrdered B y: Jian Viveros on 11-06-2024 Basophils/100 WBC (Bld) 0.5 % 0-1 [facility] Bilirubin Test strip Ql (U)O rdered By: Jian Viveros on 11-06-2024 Bilirubin Ql (U) Negative Negative [facility] Bilirubin, totalOrdered By: Jian Viveros on 11-06-2024 Bilirubin [Mass/Vol] 0.62 mg/dL 0.00-1.30 [facility] CBC W/Diff, Automatedon 10-18 Absolute Lymph 1.26 X10 3/uL Normal 0.83-4.51 [facility] Comment on above: Order Comment: Order Date: 11/06/24Order Info: 0184-1 - CBCD Performed By: #### L 506.0400, L501.9520, L501.5200, L500.4100, L500.4050, L509.1000, L100.0100 ####[facility] [address] [place], [place], [phone] Absolute Neut 7.5 X10 3/uL Normal 2.0-7.7 [facility] Comment on above: Order Comment: Order Date: 11/06/24Order Info: 0184-1 - CBCD Performed By: #### L 506.0400, L501.9520, L501.5200, L500.4100, L500.4050, L509.1000, L100.0100 ####[facility] [address] [place], [address] Basophils/100 WBC (Bld) 0.5 % Normal 0-1 [facility] Comment on above: Order Comment: Order Date: 11/06/24Order Info: 0184-1 - CBCD Performed By: #### L 506.0400, L501.9520, L501.5200, L500.4100, L500.4050, L509.1000, L100.0100 ####[facility] [address] [place], [address] Eosinophils/100 WBC (Bld) 0.1 % Normal 0-5 [facility] Comment on above: Order Comment: Order Date: 11/06/24Order Info: 0184-1 - CBCD Performed By: #### L 506.0400, L501.9520, L501.5200, L500.4100, L500.4050, L509.1000, L100.0100 ####[facility] [address] [place], [address] Erythrocyte distribution width (RBC) [Ratio] 13.1 % Normal 11.6-14.6 [facility] Comment on above: Order Comment: Order Date: 11/06/24Order Info: 0184-1 - CBCD Performed By: #### L 506.0400, L501.9520, L501.5200, L500.4100, L500.4050, L509.1000, L100.0100 ####[facility] [address] [place], [address] Hematocrit (Bld) [Volume fraction] 37.3 % Normal 37-47 [facility] Comment on above: Order Comment: Order Date: 11/06/24Order Info: 0184-1 - CBCD Performed By: #### L 506.0400, L501.9520, L501.5200, L500.4100, L500.4050, L509.1000, L100.0100 ####[facility] [address] [place], [address] Hemoglobin (Bld) [Mass/Vol] 12.3 g/dL Normal 12.0-15.0 [facility] Comment on above: Order Comment: Order Date: 11/06/24Order Info: 0184-1 - CBCD Performed By: #### L 506.0400, L501.9520, L501.5200, L500.4100, L500.4050, L509.1000, L100.0100 ####[facility] [address] [place], [address] IG% 0.200 Normal 0.0-0.9 [facility] Comment on above: Order Comment: Order Date: 11/06/24Order Info: 0184-1 - CBCD Result Comment: IG% - Immature Granulocytes (promyelocytes, myelocytes and metamyelocytes) > 1% indicates that a LEFT SHIFT is Present. Performed By: #### L 506.0400, L501.9520, L501.5200, L500.4100, L500.4050, L509.1000, L100.0100 ####[facility] [address] [place], [address] Lymphocytes/100 WBC (Bld) 13.3 % Low 19-41 [facility] Comment on above: Order Comment: Order Date: 11/06/24Order Info: 0184-1 - CBCD Performed By: #### L 506.0400, L501.9520, L501.5200, L500.4100, L500.4050, L509.1000, L100.0100 ####[facility] [address] [place], [address] MCH (RBC) [Entitic mass] 31.3 pg Normal 27.0-32.0 [facility] Comment on above: Order Comment: Order Date: 11/06/24Order Info: 018- - CBCD Performed By: #### L 506.0400, L501.9520, L501.5200, L500.4100, L500.4050, L509.1000, L100.0100 ####[facility] [address] [place], [address] MCHC (RBC) [Mass/Vol] 33.0 g/dL Normal 32-36 [facility] Comment on above: Order Comment: Order Date: 11/06/24Order Info: 018- - CBCD Performed By: #### L 506.0400, L501.9520, L501.5200, L500.4100, L500.4050, L509.1000, L100.0100 ####[facility] [address] [place], [address] MCV (RBC) [Entitic vol] 94.9 fL Normal 81-99 [facility] Comment on above: Order Comment: Order Date: 11/06/24Order Info: 018- - CBCD Performed By: #### L 506.0400, L501.9520, L501.5200, L500.4100, L500.4050, L509.1000, L100.0100 ####[facility] [address] [place], [address] Monocytes/100 WBC (Bld) 7.2 % Normal 0-10 [facility] Comment on above: Order Comment: Order Date: 11/06/24Order Info: 018- - CBCD Performed By: #### L 506.0400, L501.9520, L501.5200, L500.4100, L500.4050, L509.1000, L100.0100 ####[facility] [address] [place], [address] Neutrophils/100 WBC (Bld) 78.7 % High 47-70 [facility] Comment on above: Order Comment: Order Date: 11/06/24Order Info: 018- - CBCD Performed By: #### L 506.0400, L501.9520, L501.5200, L500.4100, L500.4050, L509.1000, L100.0100 ####[facility] [address] [place], [address] Nucleated RBC (Bld) [#/Vol] 0 10*3/uL Normal 0-5 [facility] Comment on above: Order Comment: Order Date: 11/06/24Order Info: 018- - CBCD Performed By: #### L 506.0400, L501.9520, L501.5200, L500.4100, L500.4050, L509.1000, L100.0100 ####[facility] [address] [place], [address] Platelet mean volume (Bld) [Entitic vol] 9.9 fL Normal 6.2-12.0 [facility] Comment on above: Order Comment: Order Date: 11/06/24Order Info: 018- - CBCD Performed By: #### L 506.0400, L501.9520, L501.5200, L500.4100, L500.4050, L509.1000, L100.0100 ####[facility] [address] [place], [address] Platelets (Bld) [#/Vol] 283 10*3/uL Normal 150-450 [facility] Comment on above: Order Comment: Order Date: 11/06/24Order Info: 018- - CBCD Performed By: #### L 506.0400, L501.9520, L501.5200, L500.4100, L500.4050, L509.1000, L100.0100 ####[facility] [address] [place], [place], [phone](529) RBC (Bld) [#/Vol] 3.93 10*6/uL Low 4.2-5.[address] [facility] Comment on above: Order Comment: Order Date: 11/06/24Order Info: 0184-1 - CBCD Performed By: #### L 506.0400, L501.9520, L501.5200, L500.4100, L500.4050, L509.1000, L100.0100 ####[facility] [address] [place], [address] RDW SD 45.4 fl High 35.1-43.9 [facility] Comment on above: Order Comment: Order Date: 11/06/24Order Info: 0184-1 - CBCD Performed By: #### L 506.0400, L501.9520, L501.5200, L500.4100, L500.4050, L509.1000, L100.0100 ####[facility] [address] [place], [address] WBC (Bld) [#/Vol] 9.5 10*3/uL Normal 4.4-11.0 [facility] Comment on above: Order Comment: Order Date: 11/06/24Order Info: 0184-1 - CBCD Performed By: #### L 506.0400, L501.9520, L501.5200, L500.4100, L500.4050, L509.1000, L100.0100 ####[facility] [address] [place], [place], [address] Calculated very low density lipoprotein (VLDL) cholesterol measurementOrdered By: Jian Viveros on 11-06-2024 Calculated very low density lipoprotein (VLDL) cholesterol measurement 14 mg/dL 5-40 [facility] Carbon dioxide, total [Moles /volume] in Central venous bloodOrdered By: Jian Viveros on 11-06-2024 CO2 [Moles/Vol] 19.6 mmol/L Low 21.0-32.0 [facility] Chloride assayOrdered By: Nighat Viveros on 11-06-2024 Chloride [Moles/Vol] 99 mmol/L 98-108 [facility] Comprehensive Metabolic Prof ilon 11-06-2024 Albumin [Mass/Vol] 4.3 g/dL Normal 3.4-4.8 [facility] Comment on above: Order Comment: Order Date: 11/06/24Order Info: 785-1 - CMPOrder Info: [id number] - LIPIDOrder Info: [id number] - MGOrder Info: 3 - TSHOrder Info: 3023-7 - T4F Performed By: #### L 506.0400, L501.9520, L501.5200, L500.4100, L500.4050, L509.1000, L100.0100 ####[facility] [address] [place], [address] Albumin/Globulin [Mass ratio] 1.6 {ratio} Normal 0.9-2.4 [facility] Comment on above: Order Comment: Order Date: 11/06/24Order Info: 785-1 - CMPOrder Info: [id number] - LIPIDOrder Info: [id number] - MGOrder Info: 6-3 - TSHOrder Info: 3024-7 - T4F Performed By: #### L 506.0400, L501.9520, L501.5200, L500.4100, L500.4050, L509.1000, L100.0100 ####[facility] [address] [place], [address] ALK PHOS 100 U/L Normal 35-104 [facility] Comment on above: Order Comment: Order Date: 11/06/24Order Info: [id number] - CMPOrder Info: [id number] - LIPIDOrder Info: [id number] - MGOrder Info: 3016-3 - TSHOrder Info: 3024-7 - T4F Performed By: #### L 506.0400, L501.9520, L501.5200, L500.4100, L500.4050, L509.1000, L100.0100 ####[facility] [address] [place], [address] ALT [Catalytic activity/Vol] 51 U/L High <=34 [facility] Comment on above: Order Comment: Order Date: 11/06/24Order Info: 86-1 - CMPOrder Info: [id number] - LIPIDOrder Info: [id number] - MGOrder Info: 3016-3 - TSHOrder Info: 3024-7 - T4F Performed By: #### L 506.0400, L501.9520, L501.5200, L500.4100, L500.4050, L509.1000, L100.0100 ####[facility] [address] [place], [place], [phone] [Catalytic activity/Vol] 54 U/L High <=31 [facility] Comment on above: Order Comment: Order Date: 11/06/24Order Info: 86-1 - CMPOrder Info: [id number] - LIPIDOrder Info: [id number] - MGOrder Info: 3016-3 - TSHOrder Info: 3024-7 - T4F Performed By: #### L 506.0400, L501.9520, L501.5200, L500.4100, L500.4050, L509.1000, L100.0100 ####[facility] [address] [place], [address] Bilirubin [Mass/Vol] 0.62 mg/dL Normal 0.00-1.30 [facility] Comment on above: Order Comment: Order Date: 11/06/24Order Info: [id number] - CMPOrder Info: [id number] - LIPIDOrder Info: [id number] - MGOrder Info: [id number] - TSHOrder Info: 3024-7 - T4F Performed By: #### L 506.0400, L501.9520, L501.5200, L500.4100, L500.4050, L509.1000, L100.0100 ####[facility] [address] [place], [address] BUN/CRE 13.3 RATIO Normal 10-20 [facility] Comment on above: Order Comment: Order Date: 11/06/24Order Info: [id number] - CMPOrder Info: [id number] - LIPIDOrder Info: [id number] - MGOrder Info: 3016-3 - TSHOrder Info: 3024-7 - T4F Performed By: #### L 506.0400, L501.9520, L501.5200, L500.4100, L500.4050, L509.1000, L100.0100 ####[facility] [address] [place], [address] Calcium [Mass/Vol] 9.0 mg/dL Normal 7.6-11.0 [facility] Comment on above: Order Comment: Order Date: 11/06/24Order Info: 0786-1 - CMPOrder Info: [id number] - LIPIDOrder Info: [id number] - MGOrder Info: 3016-3 - TSHOrder Info: 3024-7 - T4F Performed By: #### L 506.0400, L501.9520, L501.5200, L500.4100, L500.4050, L509.1000, L100.0100 ####[facility] [address] [place], [address] Chloride [Moles/Vol] 99 mmol/L Normal 98-108 [facility] Comment on above: Order Comment: Order Date: 11/06/24Order Info: [id number] - CMPOrder Info: [id number] - LIPIDOrder Info: [id number] - MGOrder Info: 3016-3 - TSHOrder Info: 3024-7 - T4F Performed By: #### L 506.0400, L501.9520, L501.5200, L500.4100, L500.4050, L509.1000, L100.0100 ####[facility] [address] [place], [address] CO2 [Moles/Vol] 19.6 mmol/L Low 21.0-32.0 [facility] Comment on above: Order Comment: Order Date: 11/06/24Order Info: [id number] - CMPOrder Info: [id number] - LIPIDOrder Info: [id number] - MGOrder Info: [id number] - TSHOrder Info: 3024-7 - T4F Performed By: #### L 506.0400, L501.9520, L501.5200, L500.4100, L500.4050, L509.1000, L100.0100 ####[facility] [address] [place], [place], [address] Creatinine [Mass/Vol] 1.46 mg/dL High 0.70-1.20 [facility] Comment on above: Order Comment: Order Date: 11/06/24Order Info: 785-1 - CMPOrder Info: [id number] - LIPIDOrder Info: [id number] - MGOrder Info: [id number] - TSHOrder Info: 3024-7 - T4F Performed By: #### L 506.0400, L501.9520, L501.5200, L500.4100, L500.4050, L509.1000, L100.0100 ####[facility] [address] [place], [address] GAP 17 High 5-15 [facility] Comment on above: Order Comment: Order Date: 11/06/24Order Info: 0786-1 - CMPOrder Info: [id number] - LIPIDOrder Info: [id number] - MGOrder Info: 3016-3 - TSHOrder Info: 3024-7 - T4F Performed By: #### L 506.0400, L501.9520, L501.5200, L500.4100, L500.4050, L509.1000, L100.0100 ####[facility] [address] [place], [address] GFR/1.73 sq M.predicted among non-blacks MDRD (S/P/Bld) [Vol rate/Area] 35 mL/min/{1.73_m2} Low >60 [facility] Comment on above: Order Comment: Order Date: 11/06/24Order Info: [id number] - CMPOrder Info: [id number] - LIPIDOrder Info: [id number] - MGOrder Info: 3 - TSHOrder Info: 302-7 - T4F Result Comment: mL/m in/1.73m2 CKD-EPI Creatinine Equation (2020) Performed By: #### L 506.0400, L501.9520, L501.5200, L500.4100, L500.4050, L509.1000, L100.0100 ####[facility] [address] [place], [place], [address] Globulin (S) [Mass/Vol] 2.8 g/dL Normal 2.2-4.2 [facility] Comment on above: Order Comment: Order Date: 11/06/24Order Info: 785-1 - CMPOrder Info: [id number] - LIPIDOrder Info: [id number] - MGOrder Info: [id number] - TSHOrder Info: 7 - T4F Performed By: #### L 506.0400, L501.9520, L501.5200, L500.4100, L500.4050, L509.1000, L100.0100 ####[facility] [address] [place], [place], [id number] Glucose [Mass/Vol] 101 mg/dL High 70-99 [facility] – [place] Comment on above: Order Comment: Order Date: 11/06/24Order Info: 86-1 - CMPOrder Info: [id number] - LIPIDOrder Info: [id number] - MGOrder Info: [id number] - TSHOrder Info: [id number] - T4F Performed By: #### L 506.0400, L501.9520, L501.5200, L500.4100, L500.4050, L509.1000, L100.0100 ####[facility] [address] [place], [address] Potassium [Moles/Vol] 4.2 mmol/L Normal 3.3-5.1 [facility] Comment on above: Order Comment: Order Date: 11/06/24Order Info: [id number] - CMPOrder Info: [id number] - LIPIDOrder Info: [id number] - MGOrder Info: [id number] - TSHOrder Info: [id number] - T4F Performed By: #### L 506.0400, L501.9520, L501.5200, L500.4100, L500.4050, L509.1000, L100.0100 ####[facility] [address] [place], [address] Sodium [Moles/Vol] 135 mmol/L Normal 133-145 [facility] Comment on above: Order Comment: Order Date: 11/06/24Order Info: 86-1 - CMPOrder Info: [id number] - LIPIDOrder Info: [id number] - MGOrder Info: [id number] - TSHOrder Info: [id number] - T4F Performed By: #### L 506.0400, L501.9520, L501.5200, L500.4100, L500.4050, L509.1000, L100.0100 ####[facility] [address] [place], [address] T PROT 7.0 g/dL Normal 5.9-8.4 [facility] Comment on above: Order Comment: Order Date: 11/06/24Order Info: 86-1 - CMPOrder Info: [id number] - LIPIDOrder Info: [id number] - MGOrder Info: [id number] - TSHOrder Info: [id number] - T4F Performed By: #### L 506.0400, L501.9520, L501.5200, L500.4100, L500.4050, L509.1000, L100.0100 ####[facility] [address] [place], [place], [address] Urea nitrogen [Mass/Vol] 19 mg/dL Normal 4-19 [facility] Comment on above: Order Comment: Order Date: 11/06/24Order Info: [id number] - CMPOrder Info: [id number] - LIPIDOrder Info: [id number] - MGOrder Info: [id number] - TSHOrder Info: [id number] - T4F Performed By: #### L 506.0400, L501.9520, L501.5200, L500.4100, L500.4050, L509.1000, L100.0100 ####[facility] [address] [place], [address] Eosinophil percentageOrdered By: Jian Viveros on 11-06-2024 Eosinophils/100 WBC (Bld) 0.1 % 0-5 [facility] Erythrocyte distribution wid th ratioOrdered By: Jian Viveros on 11-06-2024 Erythrocyte distribution width (RBC) [Ratio] 13.1 % 11.6-14.6 [facility] Erythrocyte distribution wid th standard deviationOrdered By: Jian Viveros on 11-06-2024 Erythrocyte distribution width (RBC) [Ratio] 45.4 fl High 35.1-43.9 [facility] Glomerular filtration rate ( GFR) estimation/1.73 sq m using serum, plasma, or whole bOrdered By: Jian Viveros on 11-06-2024 GFR/1.73 sq M.predicted among non-blacks MDRD (S/P/Bld) [Vol rate/Area] 35 mL/min/{1.73_m2} Low >60 [facility] Comment on above: mL/min/1.73m2 CKD-EP I Creatinine Equation (2020) Hematocrit Auto (Bld) [Volum e fraction]Ordered By: Jian Viveros on 11-06-2024 Hematocrit (Bld) [Volume fraction] 37.3 % 37-47 [facility] Hemoglobin measurementOrdere d By: Jian Viveros on 11-06-2024 Hemoglobin (Bld) [Mass/Vol] 12.3 g/dL 12.0-15.0 [facility] Immature granulocytes/100 WB C Auto (Bld)Ordered By: Jian Viveros on 11-06-2024 Immature granulocytes/100 WBC (Bld) 0.200 % 0.0-0.9 [facility] Comment on above: IG% - Immature Granu locytes (promyelocytes, myelocytes and metamyelocytes) > 1% indicates that a LEFT SHIFT is Present. Ketones Test strip Ql (U)Ord ered By: Jian Viveros on 11-06-2024 Ketones Ql (U) Negative Negative [facility] LDL calc ser/plasOrdered By: Jian Viveros on 11-06-2024 Cholesterol in LDL [Mass/Vol] 62 mg/dL [facility] Comment on above: Dopnxdymss=368-109 m g/dL & Higher Snej=382 mg/dL or greaterFriedwald Equation for LDL-C Laboratory - Chemistry and C hemistry - challengeOrdered By: Jian Viveros on 11-06-2024 AST [Catalytic activity/Vol] 54 U/L High <32 [facility] Lipid Profileon 11-06-2024 CHOL:HDL 2.14 Normal [facility] Comment on above: Order Comment: Order Date: 11/06/24Order Info: [id number] - CMPOrder Info: [id number] - LIPIDOrder Info: [id number] - MGOrder Info: [id number] - TSHOrder Info: [id number] - T4F Performed By: #### L 506.0400, L501.9520, L501.5200, L500.4100, L500.4050, L509.1000, L100.0100 ####[facility] [address] [facility] [place], [address] Cholesterol [Mass/Vol] 143 mg/dL Normal <=200 [facility] Comment on above: Order Comment: Order Date: 11/06/24Order Info: [id number] - CMPOrder Info: [id number] - LIPIDOrder Info: [id number] - MGOrder Info: [id number] - TSHOrder Info: [id number] - T4F Result Comment: Chol esterol level, Desirable <200 mg/dL Borderline high cholesterol 200-239 mg/dL High cholesterol >=240 mg/dL Recommendations of the NCEP Adult Treatment Panel for the following risk-cutoff thresholds for the [place] population. Performed By: #### L 506.0400, L501.9520, L501.5200, L500.4100, L500.4050, L509.1000, L100.0100 ####[facility] [address] [place], [address] Cholesterol in HDL [Mass/Vol] 67 mg/dL Normal [facility] Comment on above: Order Comment: Order Date: 11/06/24Order Info: [id number] - CMPOrder Info: [id number] - LIPIDOrder Info: [id number] - MGOrder Info: [id number] - TSHOrder Info: [id number] T4F Result Comment: Joanne onal Cholesterol Education Program (NCEP) guidelines: <40 mg/dL: Low HDL-cholesterol (major risk factor for CHD) >= 60 mg/dL: High HDL-cholesterol (negative risk factor for CHD) HDL-cholesterol is affected by a number of factors, e.g. smoking, exercise, hormones, sex and age. Performed By: #### L 506.0400, L501.9520, L501.5200, L500.4100, L500.4050, L509.1000, L100.0100 ####[facility] [address] [place], [address] Cholesterol in LDL [Mass/Vol] 62 mg/dL Normal [facility] Comment on above: Order Comment: Order Date: 11/06/24Order Info: [id number] - CMPOrder Info: [id number] - LIPIDOrder Info: [id number] - MGOrder Info: 3 - TSHOrder Info: [id number] T4F Result Comment: Bord fnzsee=032-824 mg/dL Higher Aivo=879 mg/dL or greater Friedwald Equation for LDL-C Performed By: #### L 506.0400, L501.9520, L501.5200, L500.4100, L500.4050, L509.1000, L100.0100 ####[facility] [address] [place], [place], [address] Cholesterol in VLDL [Mass/Vol] 14 mg/dL Normal 5-40 [facility] Comment on above: Order Comment: Order Date: 11/06/24Order Info: 86- - CMPOrder Info: [id number] - LIPIDOrder Info: [id number] - MGOrder Info: [id number] - TSHOrder Info: 302-7 - T4F Performed By: #### L 506.0400, L501.9520, L501.5200, L500.4100, L500.4050, L509.1000, L100.0100 ####[facility] [address] [place], [place], [address] Triglyceride [Mass/Vol] 72 mg/dL Normal [facility] Comment on above: Order Comment: Order Date: [...] 506.0400, L501.9520, L501.5200, L500.4100, L500.4050, L509.1000, L100.0100 ####[facility] [address] [place], [address] MCV (mean corpuscular volume ) determinationOrdered By: Jian Viveros on 11-06-2024 MCV (RBC) [Entitic vol] 94.9 fL 81-99 [facility] Magnesiumon 11-06-2024 Magnesium [Mass/Vol] 1.9 mg/dL Normal 1.5-2.2 [facility] Comment on above: Order Comment: Order Date: 11/06/24Order Info: [id number] - CMPOrder Info: - LIPIDOrder Info: [id number] - MGOrder Info: 3 - TSHOrder Info: [id number] - T4F Performed By: #### L 506.0400, L501.9520, L501.5200, L500.4100, L500.4050, L509.1000, L100.0100 ####[facility] [address] [place], [address] Magnesium measurement (mass/ volume)Ordered By: Jian Viveros on 11-06-2024 Magnesium (Unsp spec) [Mass/Vol] 1.9 mg/dL 1.5-2.2 [facility] Mean corpuscular hemoglobin (MCH) determinationOrdered By: Jian Viveros on 11-06-2024 MCH (RBC) [Entitic mass] 31.3 pg 27.0-32.0 [facility] Mean corpuscular hemoglobin concentration (MCHC) determinationOrdered By: Jian Viveros on 11-06-2024 MCHC (RBC) [Mass/Vol] 33.0 g/dL 32-36 [facility] Mean platelet volume determi nationOrdered By: Jian Viveros on 11-06-2024 Platelet mean volume (Bld) [Entitic vol] 9.9 fL 6.2-12.0 [facility] Microscopic analysis of urin e for red blood cells (RBC)Ordered By: Jian Viveros on 11-06-2024 Microscopic analysis of urine for red blood cells (RBC) 0-5 SEEN /hpf 0-5 [facility] Monocyte percentageOrdered B y: Jian Viveros on 11-06-2024 Monocytes/100 WBC (Bld) 7.2 % 0-10 [facility] Mucus LM Ql (Urine sed)Order ed By: Jian Viveros on 11-06-2024 Mucus Ql (Urine sed) 0 SEEN /hpf [facility] Neutrophil percentageOrdered By: Jian Viveros on 11-06-2024 Neutrophils/100 WBC (Bld) 78.7 % High 47-70 [facility] Nitrite Test strip Ql (U)Ord ered By: Jian Viveros on 11-06-2024 Nitrite Ql (U) Negative Negative [facility] Nucleated red blood cell per centageOrdered By: Jian Viveros on 11-06-2024 Nucleated RBC/100 WBC (Bld) [Ratio] 0 % 0-5 [facility] PTHINon 11-06-2024 PTH 121 pg/mL High 11-61 [facility] Comment on above: Order Comment: Order Date: 11/06/24Order Info: [id number] - PTHIN Performed By: #### L 506.0400, L501.9520, L501.5200, L500.4100, L500.4050, L509.1000, L100.0100 ####[facility] [address] [place], [address] Platelet countOrdered By: Nighat Viveros on 11-06-2024 Platelets (Bld) [#/Vol] 283 10*3/uL 150-450 [facility] Potassium measurement (mass/ volume)Ordered By: Jian Viveros on 11-06-2024 Potassium (Unsp spec) [Mass/Vol] 4.2 mmol/L 3.3-5.1 [facility] Protein Test strip Ql (U)Ord ered By: Jian Viveros on 11-06-2024 Protein Ql (U) 30 mg/dl High Negative [facility] Protein+Creatinine Ratio,Uri neon 11-06-2024 PROT:CRE RATIO 308 mg/g CRE High 0-200 [facility] Comment on above: Performed By: #### L 503.0106, L3300.8200, L400.0001, L501.0900, L506.1001, L3300.8000 ####[facility] [address] [place], [address] Protein (U) [Mass/Vol] 40.9 mg/dL High 0.0-12.0 [facility] Comment on above: Performed By: #### L 503.0106, L3300.8200, L400.0001, L501.0900, L506.1001, L3300.8000 ####[facility] [address] [place], [address] UR CREAT 133.00 mg/dL Normal 28.00-217. 00 [facility] Comment on above: Performed By: #### L 503.0106, L3300.8200, L400.0001, L501.0900, L506.1001, L3300.8000 ####[facility] [address] [place], [address] RBC Auto (Bld) [#/Vol]Ordere d By: Jian Viveros on 11-06-2024 RBC (Bld) [#/Vol] 3.93 10*6/uL Low 4.2-5.[address] [facility] Random urine creatinine benigno urement (mass/volume)Ordered By: Jian Viveros on 11-06-2024 Creatinine Unsp time (U) [Mass/Vol] 133.00 mg/dL 28.00-217. 00 [facility] Screening total cholesterol/ high density lipoprotein (HDL) cholesterol ratioOrdered By: Jian Viveros on 11-06-2024 Cholesterol.total/Cho lesterol in HDL [Mass ratio] 2.14 {ratio} [facility] Serum creatinine measurement (mass/volume)Ordered By: Jian Viveros on 11-06-2024 Creatinine [Mass/Vol] 1.46 mg/dL High 0.70-1.20 [facility] Serum globulin measurementOr dered By: Jian Viveros on 11-06-2024 Globulin (S) [Mass/Vol] 2.8 g/dL 2.2-4.2 [facility] Serum glucose measurement (m ass/volume)Ordered By: Jian Viveros on 11-06-2024 Glucose [Mass/Vol] 101 mg/dL High 70-99 [facility] Serum or plasma alanine murphy otransferase (ALT) measurementOrdered By: Jian Viveros on 11-06-2024 ALT [Catalytic activity/Vol] 51 U/L High <35 [facility] Serum or plasma albumin benigno urement (mass/volume)Ordered By: Jian Viveros on 11-06-2024 Albumin [Mass/Vol] 4.3 g/dL 3.4-4.8 [facility] Serum or plasma albumin/glob ulin mass ratioOrdered By: Jian Viveros on 11-06-2024 Albumin/Globulin [Mass ratio] 1.6 {ratio} 0.9-2.4 [facility] Serum or plasma alkaline marlene sphatase measurementOrdered By: Jian Viveros on 11-06-2024 ALP [Catalytic activity/Vol] 100 U/L 35-104 [facility] Serum or plasma calcium benigno urement (mass/volume)Ordered By: Jian Viveros on 11-06-2024 Calcium [Mass/Vol] 9.0 mg/dL 7.6-11.0 [facility] Serum or plasma cholesterol in HDL measurement (mass/volume)Ordered By: Jian Viveros on 11-06-2024 Cholesterol in HDL [Mass/Vol] 67 mg/dL >40 [facility] Comment on above: National Cholesterol Education Program (NCEP) guidelines:<40 mg/dL: Low HDL-cholesterol (major risk factor for CHD)>= 60 mg/dL: High HDL-cholesterol (negative risk factor for CHD)HDL-cholesterol is affected by a number of factors, e.g. smoking, exercise, hormones, sex and age. Serum or plasma cholesterol measurement (mass/volume)Ordered By: Jian Viveros on 11-06-2024 Cholesterol [Mass/Vol] 143 mg/dL <201 [facility] Comment on above: Cholesterol level, D esirable <200 mg/dLBorderline high cholesterol 200-239 mg/dLHigh cholesterol >=240 mg/dLRecommendations of the NCEP Adult Treatment Panel for the following risk-cutoff thresholds for the [place] population. Serum or plasma urea nitroge n measurement (mass/volume)Ordered By: Jian Viveros on 11-06-2024 Urea nitrogen [Mass/Vol] 19 mg/dL 4-19 [facility] Sodium levelOrdered By: Jian Viveros on 11-06-2024 Sodium [Moles/Vol] 135 mmol/L 133-145 [facility] Squamous epithelial cells de tection in urine sediment by light microscopyOrdered By: Jian Viveros on 11-06-2024 Epithelial cells.squamous LM Ql (Urine sed) 5-10 SEEN /hpf 5-10 [facility] T4 Free Directon 11-06-2024 T4 FREE DIRECT 2.00 ng/dL High 0.76-1.46 [facility] Comment on above: Order Comment: Order Date: 11/06/24Order Info: [id number] - CMPOrder Info: [id number] - LIPIDOrder Info: [id number] - MGOrder Info: 3 - TSHOrder Info: 7 - T4F Performed By: #### L 506.0400, L501.9520, L501.5200, L500.4100, L500.4050, L509.1000, L100.0100 ####[facility] [address] [place], [place], [address] T4 freeOrdered By: Jian andino on 11-06-2024 Free T4 [Mass/Vol] 2.00 ng/dL High 0.76-1.46 [facility] TSH DL <= 0.005 mIU/L QnOrde red By: Jian Viveros on 11-06-2024 TSH Qn 1.020 uIU/mL 0.300-4.20 0 [facility] Thyroid Stim Hormone (TSH)on 11-06-2024 TSH 1.020 uIU/mL Normal 0.300-4.20 0 [facility] Comment on above: Order Comment: Order Date: 11/06/24Order Info: [id number]- - CMPOrder Info: [id number] - LIPIDOrder Info: [id number] - MGOrder Info: 63 - TSHOrder Info: [id number] - T4F Performed By: #### L 506.0400, L501.9520, L501.5200, L500.4100, L500.4050, L509.1000, L100.0100 ####[facility] [address] [place], [place], [address] Total proteinOrdered By: Raghu Viveros on 11-06-2024 Protein [Mass/Vol] 7.0 g/dL 5.9-8.4 [facility] Triglycerides measurementOrd ered By: Jian Viveros on 11-06-2024 Triglyceride [Mass/Vol] 72 mg/dL <199 [facility] Comment on above: The drugs N-Acetylcy steine and Metamizole may falsely depress this assay. Normal range: <150 mg/dLBorderline High: 150-199 mg/dLHigh: 200-499 mg/dLVery High: >500 mg/dL Urinalysis, Completeon 11-06 RBC 0-5 SEEN Normal 0-5 [facility] Comment on above: Order Comment: Urine , Random Performed By: #### L 503.0106, L3300.8200, L400.0001, L501.0900, L506.1001, L3300.8000 ####[facility] [address] [place], [address] WBC 5-10 SEEN Normal 0-5 [facility] Comment on above: Order Comment: Urine , Random Performed By: #### L 503.0106, L3300.8200, L400.0001, L501.0900, L506.1001, L3300.8000 ####[facility] [address] [place], [address] EPI,SQUAMOUS 5-10 SEEN Normal 5-10 [facility] Comment on above: Order Comment: Urine , Random Performed By: #### L 503.0106, L3300.8200, L400.0001, L501.0900, L506.1001, L3300.8000 ####[facility] [address] [place], [address] BACTERIA 0 SEEN Normal None Seen [facility] Comment on above: Order Comment: Urine , Random Performed By: #### L 503.0106, L3300.8200, L400.0001, L501.0900, L506.1001, L3300.8000 ####[facility] [address] [place], [address] Mucus Ql (Urine sed) 0 SEEN Normal [facility] Comment on above: Order Comment: Urine , Random Performed By: #### L 503.0106, L3300.8200, L400.0001, L501.0900, L506.1001, L3300.8000 ####[facility] [address] [place], [address] Urine clarityOrdered By: Raghu Viveros on 11-06-2024 Clarity (U) Sl. Cloudy Clear [facility] Urine color determinationOrd ered By: Jain Viveros on 11-06-2024 Color (U) Yellow Yellow [facility] Urine glucose detectionOrder ed By: Jian Viveros on 11-06-2024 Glucose Ql (U) Normal mg/dl Normal [facility] Urine leukocyte esterase det ection by dipstickOrdered By: Jian Viveros on 11-06-2024 Leukocyte esterase Test strip Ql (U) 25 /ul High Negative [facility] Urine pHOrdered By: Jian santoyo on 11-06-2024 pH (U) 6.5 [pH] 5.0 - 8.0 [facility] Urine protein measurement (m ass/volume)Ordered By: Jian Viveros on 11-06-2024 Protein (U) [Mass/Vol] 40.9 mg/dL High 0.0-12.0 [facility] Urine protein/creatinine mas s ratioOrdered By: Jian Viveros on 11-06-2024 Protein/Creatinine (U) [Mass ratio] 308 mg/g CRE High 0-200 [facility] Urine sediment bacteria coun t by microscopy (number/high power field)Ordered By: Jian Viveros on 11-06-2024 Bacteria LM.HPF (Urine sed) [#/Area] 0 /[HPF] None Seen [facility] Urine specific gravity measu rementOrdered By: Jian Viveros on 11-06-2024 Specific gravity (U) [Rel density] 1.010 1.002-1.03 0 [facility] Urine urobilinogen measureme ntOrdered By: Jian Viveros on 11-06-2024 Urobilinogen Ql (U) 1 mg/dl High Normal [facility] Vitamin B12on 11-06-2024 Cobalamin (Vitamin B12) [Mass/Vol] 321 pg/mL Normal 180-914 [facility] Comment on above: Order Comment: Order Date: 11/06/24Order Info: [id number] - CMPOrder Info: [id number] - LIPIDOrder Info: [id number] - MGOrder Info: [id number] - TSHOrder Info: [id number] - T4F Performed By: #### L 503.0106, L3300.8200, L400.0001, L501.0900, L506.1001, L3300.8000 ####[facility] [address] [place], [address] Vitamin B12 ser/plasOrdered By: Jian Viveros on 11-06-2024 Cobalamin (Vitamin B12) [Mass/Vol] 321 pg/mL 180-914 [facility] Vitamin D,25 Hydroxyon 11-06 Vitamin D 25-OH 30.3 ng/mL Normal 30-100 [facility] Comment on above: Order Comment: Order Date: 11/06/24Order Info: [id number] - CMPOrder Info: [id number] - LIPIDOrder Info: - MGOrder Info: [id number] - TSHOrder Info: [id number] - T4F Result Comment: [place] min D Status Deficiency: <20 ng/mL (50nmol/L) Insufficiency: 20-30 ng/mL (50-75 nmol/L) Sufficiency: 30-100 ng/mL (75-250 nmol/L) Toxicity: >100 ng/mL (>250 nmol/L) Performed By: #### L 503.0106, L3300.8200, L400.0001, L501.0900, L506.1001, L3300.8000 ####[facility] [address] [place], [address] White blood cell (WBC) count Ordered By: Jian Viveros on 11-06-2024 WBC (Bld) [#/Vol] 9.5 10*3/uL 4.4-11.0 [facility] White blood cell countOrdere d By: Jian Viveros on 11-06-2024 White blood cell count 5-10 SEEN /hpf 0-5 [facility] Head/Neck Soft Tissueon 07-2 Head/Neck Soft Tissue [facility] Imaging Services [address] [place] [address] Head/Neck Soft Tissue MR#: [id number] Acct: [id number] Name: TRINIDAD PARKER Rep #: [id number] : 1935 F 89 From: Grabiel valencia MD PCP: Dr. Jian Viveros MD Status: [facility] Study: Head/Neck Soft Tissue Date of Exam: 10/13/24 Exam# [id number] Ordering Dr: Jian Viveros MD PROCEDURE: HEAD/NECK [...] No suspicious abnormality is seen. Reading Location: [facility] CC: Dr. Jian Viveros MD Qc Chemist: Signed Normal [facility] L3300.8200on 09-27-2024 VITAMIN B6 72.2 ug/L High 3.4-65.2 [facility] Comment on above: Order Comment: Test( s) 922290-Gaeiocm B6was developed and its performance characteristicsdetermined by [facility]. It has not been cleared or approvedby the Food and Drug Administration. Result Comment: Defi ciency: <3.4 Marginal: 3.4 - 5.1 Adequate: >5.1 Performed By: #### L 503.0106, L503.6030, L503.6050, L3300.8000, L3300.8200 ####[facility] [address] [place], [address] Vitamin B1, Thiamineon 09-27 VIT B1 THIAMINE 104.5 nmol/L Normal 66.5-200.0 [facility] Comment on above: Order Comment: Test( s) 372352-Rpomdhi B6was developed and its performance characteristicsdetermined by [facility]. It has not been cleared or approvedby the Food and Drug Administration. Result Comment: Perf ormed at: [facility] [address] [id number] [employer] Supervisor: Rick Boone MD, Phone: [phone] Performed By: #### L 503.0106, L503.6030, L503.6550, L3300.8000, L3300.8200 ####[facility] [address] [place], [place], [address] ANTINUCLEAR ANTIBODIES DIREC Ton 09-25-2024 ASHLEIGH,DIRECT Negative Normal Negative [facility] Comment on above: Order Comment: Order Date: 09/23/24Order Info: [id number] - ASHLEIGH Result Comment: Perf ormed at: [address] [id number] Ground Operations Supervisor: Irvin Goins PhD, Phone: [phone] Performed By: #### L 3100.5475, L500.4050, L100.0500 ####[facility] [address] [place], [place], [id number] Ferritinon 09-24-2024 Ferritin [Mass/Vol] 30 ng/mL Normal 22-[address] [facility] Comment on above: Order Comment: IVÁN Dejesus ADD YULIA IBC TO BLOOD DRAWN 09/23/24 PER Order Date: 09/23/24Order Info: [id number] - CMP Performed By: #### L 503.0106, L503.6030, L503.6550, L3300.8000, L3300.8200 ####[facility] [address] [place], [place], [address] Iron+Iron Binding Capacityon 09-24-2024 Iron [Mass/Vol] 63 ug/dL Normal 50-170 [facility] Comment on above: Order Comment: IVÁN Dejesus ADD YULIA IBC TO BLOOD DRAWN 09/23/24 PER Order Date: 09/23/24Order Info: [id number] - CMP Performed By: #### L 503.0106, L503.6030, L503.6550, L3300.8000, L3300.8200 ####[facility] [address] [place], [address] IRON SATURATION 20.0 Normal 13-59 [facility] Comment on above: Order Comment: IVÁN Dejesus ADD YULIA IBC TO BLOOD DRAWN 09/23/24 PER Order Date: 09/23/24Order Info: 0786- - CMP Performed By: #### L 503.0106, L503.6030, L503.6550, L3300.8000, L3300.8200 ####[facility] [address] [place], [address] TIBC 319 ug/dL Normal 250-450 [facility] Comment on above: Order Comment: IVÁN Dejesus ADD YULIA IBC TO BLOOD DRAWN 09/23/24 PER Order Date: 09/23/24Order Info: [id number] - CMP Performed By: #### L 503.0106, L503.6030, L503.6550, L3300.8000, L3300.8200 ####[facility] [address] [facility] [place], [address] UIBC 256 ug/dL Normal 228-428 [facility] Comment on above: Order Comment: IVÁN Dejesus ADD YULIA IBC TO BLOOD DRAWN 09/23/24 PER Order Date: 09/23/24Order Info: 0786-1 - CMP Performed By: #### L 503.0106, L503.6030, L503.6550, L3300.8000, L3300.8200 ####[facility] [address], [address] Anion gap in Serum or Plasma Ordered By: Jian Viveros on 09-23-2024 Anion gap [Moles/Vol] 13 mmol/L 5-15 [facility] BUN/creatinine ratioOrdered By: Jian Viveros on 09-23-2024 Urea nitrogen/Creatinine [Mass ratio] 19.3 mg/mg 10-20 [facility] Bilirubin, totalOrdered By: Jian Viveros on 09-23-2024 Bilirubin [Mass/Vol] 0.49 mg/dL 0.00-1.30 [facility] CBC-Complete Blood Cnt No Di ffon 09-23-2024 Erythrocyte distribution width (RBC) [Ratio] 12.6 % Normal 11.6-14.6 [facility] Comment on above: Order Comment: Order Date: 09/23/24Order Info: [id number] - CBC Performed By: #### L 3100.5475, L500.4050, L100.0500 ####[facility] [address] [place], [address] Hematocrit (Bld) [Volume fraction] 34.9 % Low 37-47 [facility] Comment on above: Order Comment: Order Date: 09/23/24Order Info: [id number] - CBC Performed By: #### L 3100.5475, L500.4050, L100.0500 ####[facility] [address] [place], [address] Hemoglobin (Bld) [Mass/Vol] 11.3 g/dL Low 12.0-15.0 [facility] Comment on above: Order Comment: Order Date: 09/23/24Order Info: [id number] - CBC Performed By: #### L 3100.5475, L500.4050, L100.0500 ####[facility] [address] [place], [address] MCH (RBC) [Entitic mass] 31.3 pg Normal 27.0-32.0 [facility] Comment on above: Order Comment: Order Date: 09/23/24Order Info: [id number] - CBC Performed By: #### L 3100.5475, L500.4050, L100.0500 ####[facility] [address] [place], [address] MCHC (RBC) [Mass/Vol] 32.4 g/dL Normal 32-36 [facility] Comment on above: Order Comment: Order Date: 09/23/24Order Info: [id number] - CBC Performed By: #### L 3100.5475, L500.4050, L100.0500 ####[facility] [address] [place], [address] MCV (RBC) [Entitic vol] 96.7 fL Normal 81-99 [facility] Comment on above: Order Comment: Order Date: 09/23/24Order Info: [id number] - CBC Performed By: #### L 3100.5475, L500.4050, L100.0500 ####[facility] [address] [place], [address] Platelet mean volume (Bld) [Entitic vol] 9.7 fL Normal 6.2-12.0 [facility] Comment on above: Order Comment: Order Date: 09/23/24Order Info: [id number] - CBC Performed By: #### L 3100.5475, L500.4050, L100.0500 ####[facility] [address] [place], [address] Platelets (Bld) [#/Vol] 270 10*3/uL Normal 150-450 [facility] Comment on above: Order Comment: Order Date: 09/23/24Order Info: [id number] - CBC Performed By: #### L 3100.5475, L500.4050, L100.0500 ####[facility] [address] [place], [address] RBC (Bld) [#/Vol] 3.61 10*6/uL Low 4.2-5.[address] [facility] Comment on above: Order Comment: Order Date: 09/23/24Order Info: [id number] - CBC Performed By: #### L 3100.5475, L500.4050, L100.0500 ####[facility] [address] [place], [address] RDW SD 45.1 fl High 35.1-43.9 [facility] Comment on above: Order Comment: Order Date: 09/23/24Order Info: [id number] - CBC Performed By: #### L 3100.5475, L500.4050, L100.0500 ####[facility] [address] [place], [address] WBC (Bld) [#/Vol] 8.9 10*3/uL Normal 4.4-11.0 [facility] Comment on above: Order Comment: Order Date: 09/23/24Order Info: [id number] - CBC Performed By: #### L 3100.5475, L500.4050, L100.0500 ####[facility] [address] [place], [address] Carbon dioxide, total [Moles /volume] in Central venous bloodOrdered By: Jian Viveros on 09-23-2024 CO2 [Moles/Vol] 21.7 mmol/L 21.0-32.0 [facility] Chloride assayOrdered By: Nighat Viveros on 09-23-2024 Chloride [Moles/Vol] 101 mmol/L 98-108 [facility] Comprehensive Metabolic Prof ilon 09-23-2024 Albumin [Mass/Vol] 4.2 g/dL Normal 3.4-4.8 [facility] Comment on above: Order Comment: Order Date: 09/23/24Order Info: [id number] - CMP Performed By: #### L 3100.5475, L500.4050, L100.0500 ####[facility] [address] [place], [address] Albumin/Globulin [Mass ratio] 1.3 {ratio} Normal 0.9-2.4 [facility] Comment on above: Order Comment: Order Date: 09/23/24Order Info: 0786-1 - CMP Performed By: #### L 3100.5475, L500.4050, L100.0500 ####[facility] [address] [place], [address] ALK PHOS 106 U/L High 35-104 [facility] Comment on above: Order Comment: Order Date: 09/23/24Order Info: 0786-1 - CMP Performed By: #### L 3100.5475, L500.4050, L100.0500 ####[facility] [address] [place], [address] ALT [Catalytic activity/Vol] 32 U/L Normal <=34 [facility] Comment on above: Order Comment: Order Date: 09/23/24Order Info: 0786-1 - CMP Performed By: #### L 3100.5475, L500.4050, L100.0500 ####[facility] [address] [place], [address] AST [Catalytic activity/Vol] 44 U/L High <=31 [facility] Comment on above: Order Comment: Order Date: 09/23/24Order Info: 0786-1 - CMP Performed By: #### L 3100.5475, L500.4050, L100.0500 ####[facility] [address] [place], [address] Bilirubin [Mass/Vol] 0.49 mg/dL Normal 0.00-1.30 [facility] Comment on above: Order Comment: Order Date: 09/23/24Order Info: 0786-1 - CMP Performed By: #### L 3100.5475, L500.4050, L100.0500 ####[facility] [address] [place], [address] BUN/CRE 19.3 RATIO Normal 10-20 [facility] Comment on above: Order Comment: Order Date: 09/23/24Order Info: 0786-1 - CMP Performed By: #### L 3100.5475, L500.4050, L100.0500 ####[facility] [address] [place], [address] Calcium [Mass/Vol] 9.5 mg/dL Normal 7.6-11.0 [facility] Comment on above: Order Comment: Order Date: 09/23/24Order Info: 0786-1 - CMP Performed By: #### L 3100.5475, L500.4050, L100.0500 ####[facility] [address] [place], [address] Chloride [Moles/Vol] 101 mmol/L Normal 98-108 [facility] Comment on above: Order Comment: Order Date: 09/23/24Order Info: 0786-1 - CMP Performed By: #### L 3100.5475, L500.4050, L100.0500 ####[facility] [address] [place], [address] CO2 [Moles/Vol] 21.7 mmol/L Normal 21.0-32.0 [facility] Comment on above: Order Comment: Order Date: 09/23/24Order Info: 0786-1 - CMP Performed By: #### L 3100.5475, L500.4050, L100.0500 ####[facility] [address] [place], [address] Creatinine [Mass/Vol] 1.34 mg/dL High 0.70-1.20 [facility] Comment on above: Order Comment: Order Date: 09/23/24Order Info: 0786-1 - CMP Performed By: #### L 3100.5475, L500.4050, L100.0500 ####[facility] [address] [place], [address] GAP 13 Normal 5-15 [facility] Comment on above: Order Comment: Order Date: 09/23/24Order Info: 0786-1 - CMP Performed By: #### L 3100.5475, L500.4050, L100.0500 ####[facility] [address] [place], [address] GFR/1.73 sq M.predicted among non-blacks MDRD (S/P/Bld) [Vol rate/Area] 38 mL/min/{1.73_m2} Low >60 [facility] Comment on above: Order Comment: Order Date: 09/23/24Order Info: 0786-1 - CMP Result Comment: mL/m in/1.73m2 CKD-EPI Creatinine Equation (2020) Performed By: #### L 3100.5475, L500.4050, L100.0500 ####[facility] [address] [place], [address] Globulin (S) [Mass/Vol] 3.1 g/dL Normal 2.2-4.2 [facility] Comment on above: Order Comment: Order Date: 09/23/24Order Info: 0786-1 - CMP Performed By: #### L 3100.5475, L500.4050, L100.0500 ####[facility] [address] [place], [address] Glucose [Mass/Vol] 94 mg/dL Normal 70-99 [facility] Comment on above: Order Comment: Order Date: 09/23/24Order Info: 0786-1 - CMP Performed By: #### L 3100.5475, L500.4050, L100.0500 ####[facility] [address] [place], [address] Potassium [Moles/Vol] 4.4 mmol/L Normal 3.3-5.1 [facility] Comment on above: Order Comment: Order Date: 09/23/24Order Info: 0786-1 - CMP Performed By: #### L 3100.5475, L500.4050, L100.0500 ####[facility] [address] [place], [address] Sodium [Moles/Vol] 136 mmol/L Normal 133-145 [facility] Comment on above: Order Comment: Order Date: 09/23/24Order Info: 0786-1 - CMP Performed By: #### L 3100.5475, L500.4050, L100.0500 ####[facility] [address] [place], [place], [id number] T PROT 7.2 g/dL Normal 5.9-8.4 [facility] Comment on above: Order Comment: Order Date: 09/23/24Order Info: 0786-1 - CMP Performed By: #### L 3100.5475, L500.4050, L100.0500 ####[facility] [address] [place], [address] Urea nitrogen [Mass/Vol] 26 mg/dL High 4-19 [facility] Comment on above: Order Comment: Order Date: 09/23/24Order Info: 0786-1 - CMP Performed By: #### L 3100.5475, L500.4050, L100.0500 ####[facility] [address] [place], [place], [address] Erythrocyte distribution wid th ratioOrdered By: Jian Viveros on 09-23-2024 Erythrocyte distribution width (RBC) [Ratio] 12.6 % 11.6-14.6 [facility] Erythrocyte distribution wid th standard deviationOrdered By: Jian Viveros on 09-23-2024 Erythrocyte distribution width (RBC) [Ratio] 45.1 fl High 35.1-43.9 [facility] Glomerular filtration rate ( GFR) estimation/1.73 sq m using serum, plasma, or whole bOrdered By: Jian Viveros on 09-23-2024 GFR/1.73 sq M.predicted among non-blacks MDRD (S/P/Bld) [Vol rate/Area] 38 mL/min/{1.73_m2} Low >60 [facility] Comment on above: mL/min/1.73m2 CKD-EP I Creatinine Equation (2020) Hematocrit Auto (Bld) [Volum e fraction]Ordered By: Jian Viveros on 09-23-2024 Hematocrit (Bld) [Volume fraction] 34.9 % Low 37-47 [facility] Hemoglobin measurementOrdere d By: Jian Viveros on 09-23-2024 Hemoglobin (Bld) [Mass/Vol] 11.3 g/dL Low 12.0-15.0 [facility] Iron measurement (mass/mass) Ordered By: Jian Viveros on 09-23-2024 Iron (Unsp spec) [Mass/Mass] 63 ug/dL 50-170 [facility] Laboratory - Chemistry and C hemistry - challengeOrdered By: Jian Viveros on 09-23-2024 AST [Catalytic activity/Vol] 44 U/L High <32 [facility] MCV (mean corpuscular volume ) determinationOrdered By: Jian Viveros on 09-23-2024 MCV (RBC) [Entitic vol] 96.7 fL 81-99 [facility] Mean corpuscular hemoglobin (MCH) determinationOrdered By: Jian Viveros on 09-23-2024 MCH (RBC) [Entitic mass] 31.3 pg 27.0-32.0 [facility] Mean corpuscular hemoglobin concentration (MCHC) determinationOrdered By: Jian Viveros on 09-23-2024 MCHC (RBC) [Mass/Vol] 32.4 g/dL 32-36 [facility] Mean platelet volume determi nationOrdered By: Jian Viveros on 09-23-2024 Platelet mean volume (Bld) [Entitic vol] 9.7 fL 6.2-12.0 [facility] No Panel InformationOrdered By: Jian Viveros on 09-23-2024 Unsaturated Iron Binding Capacity 256 ug/dL 228-428 [facility] Platelet countOrdered By: Nighat Viveros on 09-23-2024 Platelets (Bld) [#/Vol] 270 10*3/uL 150-450 [facility] Potassium measurement (mass/ volume)Ordered By: Jian Viveros on 09-23-2024 Potassium (Unsp spec) [Mass/Vol] 4.4 mmol/L 3.3-5.1 [facility] RBC Auto (Bld) [#/Vol]Ordere d By: Jian Viveros on 09-23-2024 RBC (Bld) [#/Vol] 3.61 10*6/uL Low 4.2-5.[address] [facility] Serum creatinine measurement (mass/volume)Ordered By: Jian Viveros on 09-23-2024 Creatinine [Mass/Vol] 1.34 mg/dL High 0.70-1.20 [facility] Serum globulin measurementOr dered By: Jian Viveros on 09-23-2024 Globulin (S) [Mass/Vol] 3.1 g/dL 2.2-4.2 [facility] Serum glucose measurement (m ass/volume)Ordered By: Jian Viveros on 09-23-2024 Glucose [Mass/Vol] 94 mg/dL 70-99 [facility] Serum or plasma alanine murphy otransferase (ALT) measurementOrdered By: Jian Viveros on 09-23-2024 ALT [Catalytic activity/Vol] 32 U/L <35 [facility] Serum or plasma albumin benigno urement (mass/volume)Ordered By: Jian Viveros on 09-23-2024 Albumin [Mass/Vol] 4.2 g/dL 3.4-4.8 [facility] Serum or plasma albumin/glob ulin mass ratioOrdered By: Jian Viveros on 09-23-2024 Albumin/Globulin [Mass ratio] 1.3 {ratio} 0.9-2.4 [facility] Serum or plasma alkaline marlene sphatase measurementOrdered By: Jian Viveros on 09-23-2024 ALP [Catalytic activity/Vol] 106 U/L High 35-104 [facility] Serum or plasma calcium benigno urement (mass/volume)Ordered By: Jian Viveros on 09-23-2024 Calcium [Mass/Vol] 9.5 mg/dL 7.6-11.0 [facility] Serum or plasma ferritin leslie surement (mass/volume)Ordered By: iJan Viveros on 09-23-2024 Ferritin [Mass/Vol] 30 ng/mL 22-[address] [facility] Serum or plasma iron saturat ion measurement (mass fraction)Ordered By: Jian Viveros on 09-23-2024 Iron saturation [Mass fraction] 20.0 % 13-59 [facility] Serum or plasma thiamine leslie surement (mass/volume)Ordered By: Jian Viveros on 09-23-2024 Thiamine [Mass/Vol] 104.5 nmol/L 66.5-200.0 [facility] Comment on above: Performed at: - [address] [id number] Director: Rick Boone MD, Phone: [phone] Serum or plasma urea nitroge n measurement (mass/volume)Ordered By: Jian Viveros on 09-23-2024 Urea nitrogen [Mass/Vol] 26 mg/dL High 4-19 [facility] Sodium levelOrdered By: Jian Viveros on 09-23-2024 Sodium [Moles/Vol] 136 mmol/L 133-145 [facility] Total proteinOrdered By: Raghu Viveros on 09-23-2024 Protein [Mass/Vol] 7.2 g/dL 5.9-8.4 [facility] Vitamin B12on 09-23-2024 Cobalamin (Vitamin B12) [Mass/Vol] 331 pg/mL Normal 180-914 [facility] Comment on above: Order Comment: Order Date: 09/23/24Order Info: 0786-1 - CMP Performed By: #### L 503.0106, L503.6030, L503.6550, L3300.8000, L3300.8200 ####[facility] [address] [facility] [address] [place], [place], [id number] Vitamin B12 ser/plasOrdered By: Jian Viveros on 09-23-2024 Cobalamin (Vitamin B12) [Mass/Vol] 331 pg/mL 180-914 [facility] White blood cell (WBC) count Ordered By: Jian Viveros on 09-23-2024 WBC (Bld) [#/Vol] 8.9 10*3/uL 4.4-11.0 [facility] Pacemaker Checkon 08-14-2024 Pacemaker Check [facility] [address] [place], [place] [address] Pacemaker Check Date of Service: 05/1642 MR#: [id number] Acct: [id number] Name: TRINIDAD PARKER Rep #: [id number] : 1935 From: Nikki Roni Age/Sex: 89/F [place] [facility] [place]: Signed Billing Codes PM Device Codes: 67963 PM Dev Prog Eval, Dual Assessment and [...] Heather Signature: Date (if applicable) CC: Normal [facility] TXT:Device Implant / Explant on 08-08-2024 TXT:Device Implant / Explant [facility] Imaging Services [address] [place] [address] TXT:Device Implant / Explant MR#: [id number] Acct: [id number] Name: TRINIDAD PARKER Rep #: [id number] : 1935 89 From: Pako Morocho MD PCP: Dr. Jian Viveros MD Status:[facility] Patient: TRINIDAD PARKER Study Date: 08/08/2024 Performing: Pako Morocho MD : 1935 Age: 89 Gender: female PROCEDURES PERFORMED LP07-(82621)BATTERY REMOVAL+REPLACEMENT PACER-DUAL LEAD INDICATIONS Atrioventricular (AV) block [...] PPM generator was then interrogated by the sas programmer analyst. Device pocket was irrigated with antibiotic. The PPM generator was sutured in place with 3-0 Vicryl. Local anesthetic was given subcutaneously to the right subclavian region with Lidocaine 2%. Subcutaneous closure was completed with 3-0 Vicryl. Skin closure was completed with 4-0 Vicryl. The patient tolerated the procedure well. Estimated Blood Loss: 15 ml's IMPLANTED / EX-PLANTED DEVICES EXPLANTED DEVICE(S): PPM Generator - [employer]: [employer], Model # [id number] , Serial # [id number] IMPLANTED DEVICE(S): PPM Generator - Wel[employer]: [employer], Model # ASSURITY MRI , Serial # [id number] DEVICE PARAMETERS DEVICE PARAMETERS: Mode- DDDR Lower [...] MD Date Dictated: 08/08/24906 Date Transcribed: 08/08/24955 Qc Chemist: CO Signed Normal [facility] Anion gap in Serum or Plasma Ordered By: Jin Barnes on 07-29-2024 Anion gap [Moles/Vol] 11 mmol/L 07-31 [facility] BUN/creatinine ratioOrdered By: Jin Barnes on 07-29-2024 Urea nitrogen/Creatinine [Mass ratio] 19.4 mg/mg 01-05 [facility] Basic Metabolic Profile (BMP )on 07-29-2024 BUN/CRE 19.4 RATIO Normal 01-05 [facility] Comment on above: Order Comment: For P PM generator change Performed By: #### L 500.2500, L300.3900, L100.0500, L400.0001 #### [facility] Laboratory [address] [place], [address] Calcium [Mass/Vol] 9.8 mg/dL Normal 7.6-11.0 [facility] Comment on above: Order Comment: For P PM generator change Performed By: #### L 500.2500, L300.3900, L100.0500, L400.0001 #### [facility] [address] [place], [address] Chloride [Moles/Vol] 102 mmol/L Normal 98-108 [facility] Comment on above: Order Comment: For P PM generator change Performed By: #### L 500.2500, L300.3900, L100.0500, L400.0001 #### [facility] [address] [place], [address] CO2 [Moles/Vol] 22.6 mmol/L Normal 21.0-32.0 [facility] Comment on above: Order Comment: For P PM generator change Performed By: #### L 500.2500, L300.3900, L100.0500, L400.0001 #### [facility] [address] [place], [address] Creatinine [Mass/Vol] 1.38 mg/dL High 0.70-1.20 [facility] Comment on above: Order Comment: For P PM generator change Performed By: #### L 500.2500, L300.3900, L100.0500, L400.0001 #### [facility] [address] [place], [address] GAP 11 Normal 5-15 [facility] Comment on above: Order Comment: For P PM generator change Performed By: #### L 500.2500, L300.3900, L100.0500, L400.0001 #### [facility] [address] [place], [address] GFR/1.73 sq M.predicted among non-blacks MDRD (S/P/Bld) [Vol rate/Area] 37 mL/min/{1.73_m2} Low >60 [facility] Comment on above: Order Comment: For P PM generator change Result Comment: mL/m in/1.73m2 CKD-EPI Creatinine Equation (2020) Performed By: #### L 500.2500, L300.3900, L100.0500, L400.0001 #### [facility] [address] [place], [address] Glucose [Mass/Vol] 107 mg/dL High 70-99 [facility] Comment on above: Order Comment: For P PM generator change Performed By: #### L 500.2500, L300.3900, L100.0500, L400.0001 #### [facility] [address] [place], [address] Potassium [Moles/Vol] 4.7 mmol/L Normal 3.3-5.1 [facility] Comment on above: Order Comment: For P PM generator change Performed By: #### L 500.2500, L300.3900, L100.0500, L400.0001 #### [facility] [address] [place], [address] Sodium [Moles/Vol] 136 mmol/L Normal 133-145 [facility] Comment on above: Order Comment: For P PM generator change Performed By: #### L 500.2500, L300.3900, L100.0500, L400.0001 #### [facility] [address] [place], [address] Urea nitrogen [Mass/Vol] 27 mg/dL High 4-19 [facility] Comment on above: Order Comment: For P PM generator change Performed By: #### L 500.2500, L300.3900, L100.0500, L400.0001 #### [facility] [address] [place], [address] Bilirubin Test strip Ql (U)O rdered By: Jin Barnes on 07-29-2024 Bilirubin Ql (U) Negative Negative [facility] CBC-Complete Blood Cnt No Di ffon 07-29-2024 Erythrocyte distribution width (RBC) [Ratio] 12.3 % Normal 11.6-14.6 [facility] Comment on above: Order Comment: Comme nts: For PPM generator change Performed By: #### L 500.2500, L300.3900, L100.0500, L400.0001 #### [facility] [address] [place], [address] Hematocrit (Bld) [Volume fraction] 37.0 % Normal 37-47 [facility] Comment on above: Order Comment: Comme nts: For PPM generator change Performed By: #### L 500.2500, L300.3900, L100.0500, L400.0001 #### [facility] [address] [place], [address] Hemoglobin (Bld) [Mass/Vol] 12.3 g/dL Normal 12.0-15.0 [facility] Comment on above: Order Comment: Comme nts: For PPM generator change Performed By: #### L 500.2500, L300.3900, L100.0500, L400.0001 #### [facility] [address] [place], [address] MCH (RBC) [Entitic mass] 32.5 pg High 27.0-32.0 [facility] Comment on above: Order Comment: Comme nts: For PPM generator change Performed By: #### L 500.2500, L300.3900, L100.0500, L400.0001 #### [facility] [address] [place], [address] MCHC (RBC) [Mass/Vol] 33.2 g/dL Normal 32-36 [facility] Comment on above: Order Comment: Comme nts: For PPM generator change Performed By: #### L 500.2500, L300.3900, L100.0500, L400.0001 #### [facility] [address] [place], [address] MCV (RBC) [Entitic vol] 97.6 fL Normal 81-99 [facility] Comment on above: Order Comment: Comme nts: For PPM generator change Performed By: #### L 500.2500, L300.3900, L100.0500, L400.0001 #### [facility] [address] [place], [address] Platelet mean volume (Bld) [Entitic vol] 9.7 fL Normal 6.2-12.0 [facility] Comment on above: Order Comment: Comme nts: For PPM generator change Performed By: #### L 500.2500, L300.3900, L100.0500, L400.0001 #### [facility] [address] [place], [address] Platelets (Bld) [#/Vol] 260 10*3/uL Normal 150-450 [facility] Comment on above: Order Comment: Comme nts: For PPM generator change Performed By: #### L 500.2500, L300.3900, L100.0500, L400.0001 #### [facility] [address] [place], [address] RBC (Bld) [#/Vol] 3.79 10*6/uL Low 4.2-5.[address] [facility] Comment on above: Order Comment: Comme nts: For PPM generator change Performed By: #### L 500.2500, L300.3900, L100.0500, L400.0001 #### [facility] [facility] [address] [place], [address] RDW SD 44.9 fl High 35.1-43.9 [facility] Comment on above: Order Comment: Comme nts: For PPM generator change Performed By: #### L 500.2500, L300.3900, L100.0500, L400.0001 #### [facility] [address] [place], [address] WBC (Bld) [#/Vol] 9.6 10*3/uL Normal 4.4-11.0 [facility] Comment on above: Order Comment: Comme nts: For PPM generator change Performed By: #### L 500.2500, L300.3900, L100.0500, L400.0001 #### [facility] [address] [place], [address] Carbon dioxide, total [Moles /volume] in Central venous bloodOrdered By: Jin Barnes on 07-29-2024 CO2 [Moles/Vol] 22.6 mmol/L 21.0-32.0 [facility] Cardiology Visit Reporton Cardiology Visit Report [facility] [address] [place] [address] OFFICE VISIT Date of Service: 07/29/24 MR#: [id number] Acct: [id number] Name: TRINIDAD PARKER Rep #: [id number] : 1935 Provider: Dr. Jin vargas MD Age/Sex: 89/F Location: [facility] Status: Signed HPI HPI History of [...] generator change. This is monitored through the [facility]. Patient also carries a history [...] Reasons: 1 Y FU/Sees Jade @ 1 Environment Coordinator Required: No Accompanied by: Aide Is patient [...] health 12/04/21 0 07/29/24 History mg-copper 1 qf-byhoqi-rzagkw capsule (PreserVision AREDS-2) magnesium oxide 400 mg [...] you fallen in the past year?: Yes [facility] Medical History History of steroid therapy Vertigo [...] with l (more content not included)... Normal [facility] Chest PA and Lateralon 07-29 Chest PA and Lateral [facility] Imaging Services [facility] [place], [place] [address] Chest PA and Lateral MR#: [id number] Acct: [id number] Name: TRINIDAD PARKER Rep #: [id number] : 1935 F 89 From: Cristopher Harry MD PCP: Dr. Jian Viveros MD [place] [facility] [place]: Chest PA and Lateral Date of Exam: 07/29/24 Exam# [id number] Ordering Dr: Jin Barnes MD PROCEDURE: CHEST [...] Jian Viveros MD; Dr. Jin Barnes MD Qc Chemist: Signed [facility] Chloride assayOrdered By: Marjan Barnes on 07-29-2024 Chloride [Moles/Vol] 102 mmol/L 98-108 [facility] Erythrocyte distribution wid th ratioOrdered By: Jin Barnes on 07-29-2024 Erythrocyte distribution width (RBC) [Ratio] 12.3 % 11.6-14.6 [facility] Erythrocyte distribution wid th standard deviationOrdered By: Jin Barnes on 07-29-2024 Erythrocyte distribution width (RBC) [Ratio] 44.9 fl High 35.1-43.9 [facility] Glomerular filtration rate ( GFR) estimation/1.73 sq m using serum, plasma, or whole bOrdered By: Jin Barnes on 07-29-2024 GFR/1.73 sq M.predicted among non-blacks MDRD (S/P/Bld) [Vol rate/Area] 37 mL/min/{1.73_m2} Low >60 [facility] Comment on above: mL/min/1.73m2 CKD-EP I Creatinine Equation (2020) Hematocrit Auto (Bld) [Volum e fraction]Ordered By: Jin Barnes on 07-29-2024 Hematocrit (Bld) [Volume fraction] 37.0 % 37-47 [facility] Hemoglobin measurementOrdere d By: Jin Barnes on 07-29-2024 Hemoglobin (Bld) [Mass/Vol] 12.3 g/dL 12.0-15.0 [facility] International normalized rat io (INR) calculationOrdered By: Jin Barnes on 07-29-2024 INR Coag (Bld) [Relative time] 1.3 {INR} [facility] Ketones Test strip Ql (U)Ord ered By: Jin Barnes on 07-29-2024 Ketones Ql (U) Negative Negative [facility] MCV (mean corpuscular volume ) determinationOrdered By: Jin Barnes on 07-29-2024 MCV (RBC) [Entitic vol] 97.6 fL 81-99 [facility] Mean corpuscular hemoglobin (MCH) determinationOrdered By: Jin Barnes on 07-29-2024 MCH (RBC) [Entitic mass] 32.5 pg High 27.0-32.0 [facility] Mean corpuscular hemoglobin concentration (MCHC) determinationOrdered By: Jin Barnes on 07-29-2024 MCHC (RBC) [Mass/Vol] 33.2 g/dL 32-36 [facility] Mean platelet volume determi nationOrdered By: Jin Barnes on 07-29-2024 Platelet mean volume (Bld) [Entitic vol] 9.7 fL 6.2-12.0 [facility] Microscopic analysis of urin e for red blood cells (RBC)Ordered By: Jin Barnes on 07-29-2024 Microscopic analysis of urine for red blood cells (RBC) 0-5 SEEN /hpf 0-5 [facility] Mucus LM Ql (Urine sed)Order ed By: Jin Barnes on 07-29-2024 Mucus Ql (Urine sed) 0 SEEN /hpf [facility] Nitrite Test strip Ql (U)Ord ered By: Jin Barnes on 07-29-2024 Nitrite Ql (U) Negative Negative [facility] Pacemaker Checkon 07-29-2024 Pacemaker Check [facility] [address] [place] [address]. [address] [place] [address] Pacemaker Check Date of Service: 07/29/24 1352 MR#: [id number] Acct: [id number] Name: TRINIDAD PARKER Rep #: [id number] : 1935 From: Nikki Tamayo Age/Sex: 89/F [place] [facility] [place] Status: Signed Billing Codes PM Device Codes: 88559 PM Dev Prog Eval, Dual Assessment and [...] I48.0 - Paroxysmal atrial fibrillation, Z79.01 - watermaster (current) use of anticoagulants, Z95.0 - Presence [...] Heather Signature: Date (if applicable) CC: Normal [facility] Platelet countOrdered By: Marjan Barnes on 07-29-2024 Platelets (Bld) [#/Vol] 260 10*3/uL 150-450 [facility] Potassium measurement (mass/ volume)Ordered By: Jin Barnes on 07-29-2024 Potassium (Unsp spec) [Mass/Vol] 4.7 mmol/L 3.3-5.1 [facility] Protein Test strip Ql (U)Ord ered By: Jin Barnes on 07-29-2024 Protein Ql (U) 15 mg/dl High Negative [facility] Prothrombin Time w/INRon INR Coag (PPP) [Relative time] 1.3 {INR} Normal [facility] Comment on above: Order Comment: Comme nts: For PPM generator change Performed By: #### L 500.2500, L300.3900, L100.0500, L400.0001 #### [facility] [address] [place], [address] PT Coag (PPP) [Time] 16.7 s High 11.7-14.9 [facility] Comment on above: Order Comment: Comme nts: For PPM generator change Performed By: #### L 500.2500, L300.3900, L100.0500, L400.0001 #### [facility] [address] [facility] [address] [place], [place], [address] [phone] Prothrombin timeOrdered By: Jin Barnes on 07-29-2024 PT Coag (PPP) [Time] 16.7 s High 11.7-14.9 [facility] RBC Auto (Bld) [#/Vol]Ordere d By: Jin Barnes on 07-29-2024 RBC (Bld) [#/Vol] 3.79 10*6/uL Low 4.2-5.[address] [facility] Serum creatinine measurement (mass/volume)Ordered By: Jin Barnes on 07-29-2024 Creatinine [Mass/Vol] 1.38 mg/dL High 0.70-1.20 [facility] Serum glucose measurement (m ass/volume)Ordered By: Jin Barnes on 07-29-2024 Glucose [Mass/Vol] 107 mg/dL High 70-99 [facility] Serum or plasma calcium benigno urement (mass/volume)Ordered By: Jin Barnes on 07-29-2024 Calcium [Mass/Vol] 9.8 mg/dL 7.6-11.0 [facility] Serum or plasma urea nitroge n measurement (mass/volume)Ordered By: Jin Barnes on 07-29-2024 Urea nitrogen [Mass/Vol] 27 mg/dL High 4-19 [facility] Sodium levelOrdered By: Medhat Barnes on 07-29-2024 Sodium [Moles/Vol] 136 mmol/L 133-145 [facility] Squamous epithelial cells de tection in urine sediment by light microscopyOrdered By: Jin Barnes on 07-29-2024 Epithelial cells.squamous LM Ql (Urine sed) 0-5 SEEN /hpf 5-10 [facility] Urinalysis, Completeon 07-29 BACTERIA RARE Normal None Seen [facility] Comment on above: Order Comment: For P PM generator change CREDIT ANALYSIS MANAGER TO SPECIFY Performed By: #### L 500.2500, L300.3900, L100.0500, L400.0001 #### [facility] [address] [place], [address] RBC 0-5 SEEN Normal 0-5 [facility] Comment on above: Order Comment: For P PM generator change CREDIT ANALYSIS MANAGER TO SPECIFY Performed By: #### L 500.2500, L300.3900, L100.0500, L400.0001 #### [facility] [address] [place], [address] WBC 0-5 SEEN Normal 0-5 [facility] Comment on above: Order Comment: For P PM generator change CREDIT ANALYSIS MANAGER TO SPECIFY Performed By: #### L 500.2500, L300.3900, L100.0500, L400.0001 #### [facility] [address] [place], [address] EPI,SQUAMOUS 0-5 SEEN Normal 5-10 [facility] Comment on above: Order Comment: For P PM generator change CREDIT ANALYSIS MANAGER TO SPECIFY Performed By: #### L 500.2500, L300.3900, L100.0500, L400.0001 #### [facility] [address] [place], [address] Mucus Ql (Urine sed) 0 SEEN Normal [facility] Comment on above: Order Comment: For P PM generator change CREDIT ANALYSIS MANAGER TO SPECIFY Performed By: #### L 500.2500, L300.3900, L100.0500, L400.0001 #### [facility] [address] [place], [address] Urine clarityOrdered By: Arnav Barnes on 07-29-2024 Clarity (U) Clear Clear [facility] Urine color determinationOrd ered By: Jin Barnes on 07-29-2024 Color (U) Straw Yellow [facility] Urine glucose detectionOrder ed By: Jin Barnes on 07-29-2024 Glucose Ql (U) Normal mg/dl Normal [facility] Urine leukocyte esterase det ection by dipstickOrdered By: Jin Barnes on 07-29-2024 Leukocyte esterase Test strip Ql (U) Negative Negative [facility] Urine pHOrdered By: Jin Barnes on 07-29-2024 pH (U) 6.5 [pH] 5.0 - 8.0 [facility] Urine sediment bacteria coun t by microscopy (number/high power field)Ordered By: Jin Barnes on 07-29-2024 Bacteria LM.HPF (Urine sed) [#/Area] RARE /hpf None Seen [facility] Urine specific gravity measu rementOrdered By: Jin Barnes on 07-29-2024 Specific gravity (U) [Rel density] 1.010 1.002-1.03 0 [facility] Urine urobilinogen measureme ntOrdered By: Jin Barnes on 07-29-2024 Urobilinogen Ql (U) Normal mg/dl Normal [facility] White blood cell (WBC) count Ordered By: Jin Barnes on 07-29-2024 WBC (Bld) [#/Vol] 9.6 10*3/uL 4.4-11.0 [facility] White blood cell countOrdere d By: Jin Barnes on 07-29-2024 White blood cell count 0-5 SEEN /hpf 0-5 [facility] L3300.8200on 06-05-2024 VITAMIN B6 77.3 ug/L High 3.4-65.2 [facility] Comment on above: Order Comment: Test( s) 726096-Poxhsnp B6was developed and its performance characteristicsdetermined by [employer]. It has not been cleared or approvedby the Food and Drug Administration. Result Comment: Defi ciency: <3.4 Marginal: 3.4 - 5.1 Adequate: >5.1 Performed By: #### L 3300.8000, L3300.8200, L506.1001, L503.0106 ####[facility] [address] [place], [place], [address] Vitamin B1, Thiamineon 06-05 VIT B1 THIAMINE 104.8 nmol/L Normal 66.5-200.0 [facility] Comment on above: Order Comment: Test( s) 425683-Njtfvuz B6was developed and its performance characteristicsdetermined by [facility]. It has not been cleared or approvedby the Food and Drug Administration. Result Comment: Perf ormed at: - [facility] [id number] [employer] Supervisor: Rick Boone MD, Phone: [phone] Performed By: #### L 3300.8000, L3300.8200, L506.1001, L503.0106 ####[facility] [address] [place], [place], [address] Absolute lymphocyte countOrd ered By: Jian Viveros on 05-29-2024 Lymphocytes Auto (Unsp spec) [#/Vol] 0.99 10*3/uL 0.83-4.51 [facility] Absolute neutrophil countOrd ered By: Jian Viveros on 05-29-2024 Neutrophils (Bld) [#/Vol] 6.2 10*3/uL 2.0-7.7 [facility] Anion gap in Serum or Plasma Ordered By: Jian Viveros on 05-29-2024 Anion gap [Moles/Vol] 13 mmol/L 5-15 [facility] Automated lymphocyte count a s percentage of total leukocytesOrdered By: Jian Viveros on 05-29-2024 Lymphocytes/100 WBC Auto (Unsp spec) 12.5 % Low 19-41 [facility] BUN/creatinine ratioOrdered By: Jian Viveros on 05-29-2024 Urea nitrogen/Creatinine [Mass ratio] 15.1 mg/mg 10-20 [facility] Basophil percentageOrdered B y: Jian Viveros on 05-29-2024 Basophils/100 WBC (Bld) 0.6 % 0-1 [facility] Bilirubin, totalOrdered By: Jian Viveros on 05-29-2024 Bilirubin [Mass/Vol] 0.40 mg/dL 0.00-1.30 [facility] CBC W/Diff, Automatedon 05-17-2024 Absolute Lymph 0.99 X10 3/uL Normal 0.83-4.51 [facility] Comment on above: Order Comment: Order Date: 05/29/24Order Info: 0184- - CBCD Performed By: #### L 500.4050, L506.0400, L501.9520, L509.1000, L501.5200, L500.4100, L100.0100 ####[facility] [address] [place], [address] Absolute Neut 6.2 X10 3/uL Normal 2.0-7.7 [facility] Comment on above: Order Comment: Order Date: 05/29/24Order Info: 0184- - CBCD Performed By: #### L 500.4050, L506.0400, L501.9520, L509.1000, L501.5200, L500.4100, L100.0100 ####[facility] [address] [place], [address] Basophils/100 WBC (Bld) 0.6 % Normal 0-1 [facility] Comment on above: Order Comment: Order Date: 05/29/24Order Info: 0184- - CBCD Performed By: #### L 500.4050, L506.0400, L501.9520, L509.1000, L501.5200, L500.4100, L100.0100 ####[facility] [address] [place], [address] Eosinophils/100 WBC (Bld) 1.1 % Normal 0-5 [facility] Comment on above: Order Comment: Order Date: 05/29/24Order Info: 0184- - CBCD Performed By: #### L 500.4050, L506.0400, L501.9520, L509.1000, L501.5200, L500.4100, L100.0100 ####[facility] [address] [place], [address] Erythrocyte distribution width (RBC) [Ratio] 12.7 % Normal 11.6-14.6 [facility] Comment on above: Order Comment: Order Date: 05/29/24Order Info: 0184-1 - CBCD Performed By: #### L 500.4050, L506.0400, L501.9520, L509.1000, L501.5200, L500.4100, L100.0100 ####[facility] [address] [place], [address] Hematocrit (Bld) [Volume fraction] 35.2 % Low 37-47 [facility] Comment on above: Order Comment: Order Date: 05/29/24Order Info: 0184-1 - CBCD Performed By: #### L 500.4050, L506.0400, L501.9520, L509.1000, L501.5200, L500.4100, L100.0100 ####[facility] [address] [place], [place], [address] Hemoglobin (Bld) [Mass/Vol] 11.8 g/dL Low 12.0-15.0 [facility] Comment on above: Order Comment: Order Date: 05/29/24Order Info: 0184-1 - CBCD Performed By: #### L 500.4050, L506.0400, L501.9520, L509.1000, L501.5200, L500.4100, L100.0100 ####[facility] [address] [place], [address] IG% 0.300 Normal 0.0-0.9 [facility] Comment on above: Order Comment: Order Date: 05/29/24Order Info: 0184-1 - CBCD Result Comment: IG% - Immature Granulocytes (promyelocytes, myelocytes and metamyelocytes) > 1% indicates that a LEFT SHIFT is Present. Performed By: #### L 500.4050, L506.0400, L501.9520, L509.1000, L501.5200, L500.4100, L100.0100 ####[facility] [address] [place], [address] Lymphocytes/100 WBC (Bld) 12.5 % Low 19-41 [facility] Comment on above: Order Comment: Order Date: 05/29/24Order Info: 0184-1 - CBCD Performed By: #### L 500.4050, L506.0400, L501.9520, L509.1000, L501.5200, L500.4100, L100.0100 ####[facility] [address] [place], [address] MCH (RBC) [Entitic mass] 33.0 pg High 27.0-32.0 [facility] Comment on above: Order Comment: Order Date: 05/29/24Order Info: 0184-1 - CBCD Performed By: #### L 500.4050, L506.0400, L501.9520, L509.1000, L501.5200, L500.4100, L100.0100 ####[facility] [address] [place], [address] MCHC (RBC) [Mass/Vol] 33.5 g/dL Normal 32-36 [facility] Comment on above: Order Comment: Order Date: 05/29/24Order Info: 0184-1 - CBCD Performed By: #### L 500.4050, L506.0400, L501.9520, L509.1000, L501.5200, L500.4100, L100.0100 ####[facility] [address] [place], [address] MCV (RBC) [Entitic vol] 98.3 fL Normal 81-99 [facility] Comment on above: Order Comment: Order Date: 05/29/24Order Info: 0184-1 - CBCD Performed By: #### L 500.4050, L506.0400, L501.9520, L509.1000, L501.5200, L500.4100, L100.0100 ####[facility] [address] [place], [address] Monocytes/100 WBC (Bld) 7.4 % Normal 0-10 [facility] Comment on above: Order Comment: Order Date: 05/29/24Order Info: 0184-1 - CBCD Performed By: #### L 500.4050, L506.0400, L501.9520, L509.1000, L501.5200, L500.4100, L100.0100 ####[facility] [address] [facility] [place], [address] Neutrophils/100 WBC (Bld) 78.1 % High 47-70 [facility] Comment on above: Order Comment: Order Date: 05/29/24Order Info: 0184-1 - CBCD Performed By: #### L 500.4050, L506.0400, L501.9520, L509.1000, L501.5200, L500.4100, L100.0100 ####[facility] [address] [facility] [place], [address] Nucleated RBC (Bld) [#/Vol] 0 10*3/uL Normal 0-5 [facility] Comment on above: Order Comment: Order Date: 05/29/24Order Info: 0184-1 - CBCD Performed By: #### L 500.4050, L506.0400, L501.9520, L509.1000, L501.5200, L500.4100, L100.0100 ####[facility] [address] [facility] [place], [address] Platelet mean volume (Bld) [Entitic vol] 9.9 fL Normal 6.2-12.0 [facility] Comment on above: Order Comment: Order Date: 05/29/24Order Info: 0184-1 - CBCD Performed By: #### L 500.4050, L506.0400, L501.9520, L509.1000, L501.5200, L500.4100, L100.0100 ####[facility] [address] [place], [address] Platelets (Bld) [#/Vol] 251 10*3/uL Normal 150-450 [facility] Comment on above: Order Comment: Order Date: 05/29/24Order Info: 0184-1 - CBCD Performed By: #### L 500.4050, L506.0400, L501.9520, L509.1000, L501.5200, L500.4100, L100.0100 ####[facility] [address] [place], [address] RBC (Bld) [#/Vol] 3.58 10*6/uL Low 4.2-5.[address] [facility] Comment on above: Order Comment: Order Date: 05/29/24Order Info: 0184-1 - CBCD Performed By: #### L 500.4050, L506.0400, L501.9520, L509.1000, L501.5200, L500.4100, L100.0100 ####[facility] [address] [place], [address] RDW SD 45.7 fl High 35.1-43.9 [facility] Comment on above: Order Comment: Order Date: 05/29/24Order Info: 0184-1 - CBCD Performed By: #### L 500.4050, L506.0400, L501.9520, L509.1000, L501.5200, L500.4100, L100.0100 ####[facility] [address] [place], [address] WBC (Bld) [#/Vol] 7.9 10*3/uL Normal 4.4-11.0 [facility] Comment on above: Order Comment: Order Date: 05/29/24Order Info: 0184-1 - CBCD Performed By: #### L 500.4050, L506.0400, L501.9520, L509.1000, L501.5200, L500.4100, L100.0100 ####[facility] [address] [place], [place], [address] Calculated very low density lipoprotein (VLDL) cholesterol measurementOrdered By: Jian Viveros on 05-29-2024 Calculated very low density lipoprotein (VLDL) cholesterol measurement 17 mg/dL -40 [facility] VLDL Cholesterol 17 mg/dL -40 [facility] Carbon dioxide, total [Moles /volume] in Central venous bloodOrdered By: Jian Viveros on 05-29-2024 CO2 [Moles/Vol] 21.5 mmol/L 21.0-32.0 [facility] Chloride assayOrdered By: Nighat Viveros on 05-29-2024 Chloride [Moles/Vol] 101 mmol/L 98-108 [facility] Comprehensive Metabolic Prof ilon 05-29-2024 Albumin [Mass/Vol] 4.1 g/dL Normal 3.4-4.8 [facility] Comment on above: Order Comment: Order Date: 05/29/24Order Info: 0786- - CMPOrder Info: [id number] - LIPIDOrder Info: [id number] - MGOrder Info: 3 - TSHOrder Info: 7 - T4F Performed By: #### L 500.4050, L506.0400, L501.9520, L509.1000, L501.5200, L500.4100, L100.0100 ####[facility] [address] [place], [place], [address] Albumin/Globulin [Mass ratio] 1.4 {ratio} Normal 0.9-2.4 [facility] Comment on above: Order Comment: Order Date: 05/29/24Order Info: [id number] - CMPOrder Info: [id number] - LIPIDOrder Info: [id number] - MGOrder Info: 3 - TSHOrder Info: [id number] - T4F Performed By: #### L 500.4050, L506.0400, L501.9520, L509.1000, L501.5200, L500.4100, L100.0100 ####[facility] [address] [place], [address] ALK PHOS 96 U/L Normal 35-104 [facility] Comment on above: Order Comment: Order Date: 05/29/24Order Info: [id number] - CMPOrder Info: [id number] - LIPIDOrder Info: [id number] - MGOrder Info: [id number] - TSHOrder Info: 3024-7 - T4F Performed By: #### L 500.4050, L506.0400, L501.9520, L509.1000, L501.5200, L500.4100, L100.0100 ####[facility] [address] [place], [place], [address] ALT [Catalytic activity/Vol] 29 U/L Normal <=34 [facility] Comment on above: Order Comment: Order Date: 05/29/24Order Info: [id number] - CMPOrder Info: [id number] - LIPIDOrder Info: [id number] - MGOrder Info: [id number] - TSHOrder Info: 3024-7 - T4F Performed By: #### L 500.4050, L506.0400, L501.9520, L509.1000, L501.5200, L500.4100, L100.0100 ####[facility] [address] [place], [place], [address] AST [Catalytic activity/Vol] 36 U/L High <=31 [facility] Comment on above: Order Comment: Order Date: 05/29/24Order Info: [id number] - CMPOrder Info: [id number] - LIPIDOrder Info: [id number] - MGOrder Info: [id number] - TSHOrder Info: 3024-7 - T4F Performed By: #### L 500.4050, L506.0400, L501.9520, L509.1000, L501.5200, L500.4100, L100.0100 ####[facility] [address] [place], [address] Bilirubin [Mass/Vol] 0.40 mg/dL Normal 0.00-1.30 [facility] Comment on above: Order Comment: Order Date: 05/29/24Order Info: [id number] - CMPOrder Info: [id number] - LIPIDOrder Info: [id number] - MGOrder Info: [id number] - TSHOrder Info: 3024-7 - T4F Performed By: #### L 500.4050, L506.0400, L501.9520, L509.1000, L501.5200, L500.4100, L100.0100 ####[facility] [address] [place], [place], [id number](830) BUN/CRE 15.1 RATIO Normal 10-20 [facility] Comment on above: Order Comment: Order Date: 05/29/24Order Info: [id number] - CMPOrder Info: [id number] - LIPIDOrder Info: [id number] - MGOrder Info: [id number] - TSHOrder Info: 3024-7 - T4F Performed By: #### L 500.4050, L506.0400, L501.9520, L509.1000, L501.5200, L500.4100, L100.0100 ####[facility] [address] [place], [place], [phone](750) Calcium [Mass/Vol] 9.3 mg/dL Normal 7.6-11.0 [facility] Comment on above: Order Comment: Order Date: 05/29/24Order Info: [id number] - CMPOrder Info: [id number] - LIPIDOrder Info: [id number] - MGOrder Info: [id number] - TSHOrder Info: [id number] - T4F Performed By: #### L 500.4050, L506.0400, L501.9520, L509.1000, L501.5200, L500.4100, L100.0100 ####[facility] [address] [place], [address] Chloride [Moles/Vol] 101 mmol/L Normal 98-108 [facility] Comment on above: Order Comment: Order Date: 05/29/24Order Info: [id number] - CMPOrder Info: [id number] - LIPIDOrder Info: [id number] - MGOrder Info: [id number] - TSHOrder Info: 3024-7 - T4F Performed By: #### L 500.4050, L506.0400, L501.9520, L509.1000, L501.5200, L500.4100, L100.0100 ####[facility] [address] [place], [address] CO2 [Moles/Vol] 21.5 mmol/L Normal 21.0-32.0 [facility] Comment on above: Order Comment: Order Date: 05/29/24Order Info: 86-1 - CMPOrder Info: [id number] - LIPIDOrder Info: [id number] - MGOrder Info: [id number] - TSHOrder Info: 3024-7 - T4F Performed By: #### L 500.4050, L506.0400, L501.9520, L509.1000, L501.5200, L500.4100, L100.0100 ####[facility] [address] [place], [address] Creatinine [Mass/Vol] 1.42 mg/dL High 0.70-1.20 [facility] Comment on above: Order Comment: Order Date: 05/29/24Order Info: [id number] - CMPOrder Info: [id number] - LIPIDOrder Info: [id number] - MGOrder Info: [id number] - TSHOrder Info: 3024-7 - T4F Performed By: #### L 500.4050, L506.0400, L501.9520, L509.1000, L501.5200, L500.4100, L100.0100 ####[facility] [address] [place], [place], [address] GAP 13 Normal 5-15 [facility] Comment on above: Order Comment: Order Date: 05/29/24Order Info: [id number] - CMPOrder Info: [id number] - LIPIDOrder Info: [id number] - MGOrder Info: 3015-3 - TSHOrder Info: 3027 - T4F Performed By: #### L 500.4050, L506.0400, L501.9520, L509.1000, L501.5200, L500.4100, L100.0100 ####[facility] [address] [place], [place], [address] GFR/1.73 sq M.predicted among non-blacks MDRD (S/P/Bld) [Vol rate/Area] 36 mL/min/{1.73_m2} Low >60 [facility] Comment on above: Order Comment: Order Date: 05/29/24Order Info: 07- - CMPOrder Info: - LIPIDOrder Info: [id number] - MGOrder Info: 3 - TSHOrder Info: 7 - T4F Result Comment: mL/m in/1.73m2 CKD-EPI Creatinine Equation (2020) Performed By: #### L 500.4050, L506.0400, L501.9520, L509.1000, L501.5200, L500.4100, L100.0100 ####[facility] [address] [place], [place], [address] Globulin (S) [Mass/Vol] 2.9 g/dL Normal 2.2-4.2 [facility] Comment on above: Order Comment: Order Date: 05/29/24Order Info: [id number] - CMPOrder Info: [id number] - LIPIDOrder Info: [id number] - MGOrder Info: 63 - TSHOrder Info: 3024-7 - T4F Performed By: #### L 500.4050, L506.0400, L501.9520, L509.1000, L501.5200, L500.4100, L100.0100 ####[facility] [address] [place], [address] Glucose [Mass/Vol] 93 mg/dL Normal 70-99 [facility] Comment on above: Order Comment: Order Date: 05/29/24Order Info: [id number] - CMPOrder Info: [id number] - LIPIDOrder Info: [id number] - MGOrder Info: [id number] - TSHOrder Info: 3024-7 - T4F Performed By: #### L 500.4050, L506.0400, L501.9520, L509.1000, L501.5200, L500.4100, L100.0100 ####[facility] [address] [place], [address] Potassium [Moles/Vol] 4.7 mmol/L Normal 3.3-5.1 [facility] Comment on above: Order Comment: Order Date: 05/29/24Order Info: 86-1 - CMPOrder Info: [id number] - LIPIDOrder Info: [id number] - MGOrder Info: 3016-3 - TSHOrder Info: 3024-7 - T4F Performed By: #### L 500.4050, L506.0400, L501.9520, L509.1000, L501.5200, L500.4100, L100.0100 ####[facility] [address] [place], [address] Sodium [Moles/Vol] 135 mmol/L Normal 133-145 [facility] Comment on above: Order Comment: Order Date: 05/29/24Order Info: [id number] - CMPOrder Info: [id number] - LIPIDOrder Info: [id number] - MGOrder Info: [id number] - TSHOrder Info: 3024-7 - T4F Performed By: #### L 500.4050, L506.0400, L501.9520, L509.1000, L501.5200, L500.4100, L100.0100 ####[facility] [address] [place], [place], [address] T PROT 7.0 g/dL Normal 5.9-8.4 [facility] Comment on above: Order Comment: Order Date: 05/29/24Order Info: [id number] - CMPOrder Info: [id number] - LIPIDOrder Info: [id number] - MGOrder Info: [id number] - TSHOrder Info: 302-7 - T4F Performed By: #### L 500.4050, L506.0400, L501.9520, L509.1000, L501.5200, L500.4100, L100.0100 ####[facility] [address] [place], [place], [address] Urea nitrogen [Mass/Vol] 21 mg/dL High 4-19 [facility] Comment on above: Order Comment: Order Date: 05/29/24Order Info: 0786- - CMPOrder Info: [id number] - LIPIDOrder Info: [id number] - MGOrder Info: 3 - TSHOrder Info: [id number] - T4F Performed By: #### L 500.4050, L506.0400, L501.9520, L509.1000, L501.5200, L500.4100, L100.0100 ####[facility] [address] [place], [place], [id number] Eosinophil percentageOrdered By: Jian Viveros on 05-29-2024 Eosinophils/100 WBC (Bld) 1.1 % 0-5 [facility] Erythrocyte distribution wid th ratioOrdered By: Jian Viveros on 05-29-2024 Erythrocyte distribution width (RBC) [Ratio] 12.7 % 11.6-14.6 [facility] Erythrocyte distribution wid th standard deviationOrdered By: Jian Viveros on 05-29-2024 Erythrocyte distribution width (RBC) [Entitic vol] 45.7 fL High 35.1-43.9 [facility] Erythrocyte distribution width (RBC) [Ratio] 45.7 fl High 35.1-43.9 [facility] GFR/1.73 sq M.predicted sebastian g non-blacks MDRD (S/P/Bld) [Vol rate/Area]Ordered By: Jian Viveros on 05-29-2024 Estimated GFR (MDRD) Non-Af Amer 36 Low >60 [facility] Comment on above: mL/min/1.73m2 CKD-EP I Creatinine Equation (2020) Glomerular filtration rate ( GFR) estimation/1.73 sq m using serum, plasma, or whole bOrdered By: Jian Viveros on 05-29-2024 GFR/1.73 sq M.predicted among non-blacks MDRD (S/P/Bld) [Vol rate/Area] 36 mL/min/{1.73_m2} Low >60 [facility] Comment on above: mL/min/1.73m2 CKD-EP I Creatinine Equation (2020) Hematocrit Auto (Bld) [Volum e fraction]Ordered By: Jian Viveros on 05-29-2024 Hematocrit (Bld) [Volume fraction] 35.2 % Low 37-47 [facility] Hemoglobin measurementOrdere d By: Jian Viveros on 05-29-2024 Hemoglobin (Bld) [Mass/Vol] 11.8 g/dL Low 12.0-15.0 [facility] Immature granulocytes/100 WB C Auto (Bld)Ordered By: Jian Viveros on 05-29-2024 Immature granulocytes/100 WBC (Bld) 0.300 % 0.0-0.9 [facility] Comment on above: IG% - Immature Granu locytes (promyelocytes, myelocytes and metamyelocytes) > 1% indicates that a LEFT SHIFT is Present. L503.0106on 05-29-2024 Cobalamin (Vitamin B12) [Mass/Vol] 270 pg/mL Normal 180-914 [facility] Comment on above: Order Comment: Order Date: 05/29/24 Order Info: [id number] - CMP Order Info: [id number] - LIPID Order Info: [id number] - MG Order Info: [id number] - TSH Order Info: 3024-7 - T4F Performed By: #### L 3300.8000, L3300.8200, L506.1001, L503.0106 #### [facility] [address] [place], [address] L506.1001on 05-29-2024 Vitamin D 25-OH 29.9 ng/mL Low 30-100 [facility] Comment on above: Order Comment: Order Date: 05/29/24Order Info: [id number] - CMPOrder Info: [id number] - LIPIDOrder Info: [id number] - MGOrder Info: [id number] - TSHOrder Info: 3023-09 - T4F Result Comment: [place]os[place] min D Status Deficiency: <20 ng/mL (50nmol/L) Insufficiency: 20-30 ng/mL (50-75 nmol/L) Sufficiency: 30-100 ng/mL (75-250 nmol/L) Toxicity: >100 ng/mL (>250 nmol/L) Performed By: #### L 3300.8000, L3300.8200, L506.1001, L503.0106 ####[facility] [address] [place], [address] LDL calc ser/plasOrdered By: Jian Viveros on 05-29-2024 Cholesterol in LDL [Mass/Vol] 135 mg/dL [facility] Comment on above: Cziamadhet=670-123 m g/dL & Higher Tywa=182 mg/dL or greater LDL Cholesterol, Calculated 135 mg/dL [facility] Comment on above: Myzukupbum=682-117 m g/dL & Higher Fywb=734 mg/dL or greater Laboratory - Chemistry and C hemistry - challengeOrdered By: Jian Viveros on 05-29-2024 AST [Catalytic activity/Vol] 36 U/L High <32 [facility] Lipid Profileon 05-29-2024 CHOL:HDL 3.20 Normal [facility] Comment on above: Order Comment: Order Date: 05/29/24Order Info: 0786- - CMPOrder Info: [id number] - LIPIDOrder Info: - MGOrder Info: [id number] - TSHOrder Info: [id number] - T4F Performed By: #### L 500.4050, L506.0400, L501.9520, L509.1000, L501.5200, L500.4100, L100.0100 ####[facility] [address] [place], [address] Cholesterol [Mass/Vol] 221 mg/dL High <=200 [facility] Comment on above: Order Comment: Order Date: 05/29/24Order Info: [id number] - CMPOrder Info: [id number] - LIPIDOrder Info: [id number] - MGOrder Info: [id number] - TSHOrder Info: 7 - T4F Result Comment: Chol esterol level, Desirable <200 mg/dL Borderline high cholesterol 200-239 mg/dL High cholesterol >=240 mg/dL Recommendations of the NCEP Adult Treatment Panel for the following risk-cutoff thresholds for the [place] population. Performed By: #### L 500.4050, L506.0400, L501.9520, L509.1000, L501.5200, L500.4100, L100.0100 ####[facility] [address] [place], [address] Cholesterol in HDL [Mass/Vol] 69 mg/dL Normal [facility] Comment on above: Order Comment: Order Date: 05/29/24Order Info: [id number] - CMPOrder Info: [id number] - LIPIDOrder Info: [id number] - MGOrder Info: 3 - TSHOrder Info: [...] 500.4050, L506.0400, L501.9520, L509.1000, L501.5200, L500.4100, L100.0100 ####[facility] [address] [place], [address] Cholesterol in LDL [Mass/Vol] 135 mg/dL Normal [facility] Comment on above: Order Comment: Order Date: 05/29/24Order Info: 0786- - CMPOrder Info: [id number] - LIPIDOrder Info: [id number] - MGOrder Info: [id number] - TSHOrder Info: 7 - T4F Result Comment: Bord byevkv=108-392 mg/dL Higher Hqxq=655 mg/dL or greater Performed By: #### L 500.4050, L506.0400, L501.9520, L509.1000, L501.5200, L500.4100, L100.0100 ####[facility] [address] [place], [address] Cholesterol in VLDL [Mass/Vol] 17 mg/dL Normal 5-40 [facility] Comment on above: Order Comment: Order Date: 05/29/24Order Info: [id number] - CMPOrder Info: - LIPIDOrder Info: [id number] - MGOrder Info: [id number] - TSHOrder Info: 3023-09 - T4F Performed By: #### L 500.4050, L506.0400, L501.9520, L509.1000, L501.5200, L500.4100, L100.0100 ####[facility] [address] [place], [address] Triglyceride [Mass/Vol] 87 mg/dL Normal [facility] Comment on above: Order Comment: Order Date: 05/29/24Order Info: 07 - CMPOrder Info: - LIPIDOrder Info: [id number] - MGOrder Info: [id number] - TSHOrder Info: 3024-7 - T4F Result Comment: The drugs N-Acetylcysteine and Metamizole may falsely depress this assay. Normal range: <150 mg/dL Borderline High: 150-199 mg/dL High: 200-499 mg/dL Very High: >500 mg/dL Performed By: #### L 500.4050, L506.0400, L501.9520, L509.1000, L501.5200, L500.4100, L100.0100 ####[facility] [address] [place], [place], [address] Lymphocytes Auto (Unsp spec) [#/Vol]Ordered By: Jian Viveros on 05-29-2024 Lymphocytes (Bld) [#/Vol] 0.99 10*3/uL 0.83-4.51 [facility] Lymphocytes/100 WBC Auto (Un sp spec)Ordered By: Jian Viveros on 05-29-2024 Lymphocytes/100 WBC (Bld) 12.5 % Low 19-41 [facility] MCV (mean corpuscular volume ) determinationOrdered By: Jian Viveros on 05-29-2024 MCV (RBC) [Entitic vol] 98.3 fL 81-99 [facility] Magnesiumon 05-29-2024 Magnesium [Mass/Vol] 2.0 mg/dL Normal 1.5-2.2 [facility] Comment on above: Order Comment: Order Date: 05/29/24Order Info: [id number] - CMPOrder Info: [id number] - LIPIDOrder Info: [id number] - MGOrder Info: [id number] - TSHOrder Info: 3024-7 - T4F Performed By: #### L 500.4050, L506.0400, L501.9520, L509.1000, L501.5200, L500.4100, L100.0100 ####[facility] [address] [place], [place], [address] Magnesium (Unsp spec) [Mass/ Vol]Ordered By: Jian Viveros on 05-29-2024 Magnesium [Mass/Vol] 2.0 mg/dL 1.5-2.2 [facility] Magnesium measurement (mass/ volume)Ordered By: Jian Viveros on 05-29-2024 Magnesium (Unsp spec) [Mass/Vol] 2.0 mg/dL 1.5-2.2 [facility] Mean corpuscular hemoglobin (MCH) determinationOrdered By: Jian Viveros on 05-29-2024 MCH (RBC) [Entitic mass] 33.0 pg High 27.0-32.0 [facility] Mean corpuscular hemoglobin concentration (MCHC) determinationOrdered By: Jian Viveros on 05-29-2024 MCHC (RBC) [Mass/Vol] 33.5 g/dL 32-36 [facility] Mean platelet volume determi nationOrdered By: Jian Viveros on 05-29-2024 Platelet mean volume (Bld) [Entitic vol] 9.9 fL 6.2-12.0 [facility] Monocyte percentageOrdered B y: Jian Viveros on 05-29-2024 Monocytes/100 WBC (Bld) 7.4 % 0-10 [facility] Neutrophil percentageOrdered By: Jian Viveros on 05-29-2024 Neutrophils/100 WBC (Bld) 78.1 % High 47-70 [facility] Nucleated red blood cell per centageOrdered By: Jian Viveros on 05-29-2024 Nucleated RBC/100 WBC (Bld) [Ratio] 0 % 0-5 [facility] PTH intactOrdered By: Jian martinez on 05-29-2024 Parathyroid Hormone (Intact) 93 pg/mL High [facility] PTHINon 05-29-2024 PTH 93 pg/mL High [facility] Comment on above: Order Comment: Order Date: 05/29/24Order Info: [id number] - PTHIN Performed By: #### L 500.4050, L506.0400, L501.9520, L509.1000, L501.5200, L500.4100, L100.0100 ####[facility] [address] [place], [address] Platelet countOrdered By: Nighat Viveros on 05-29-2024 Platelets (Bld) [#/Vol] 251 10*3/uL 150-450 [facility] Potassium (Unsp spec) [Mass/ Vol]Ordered By: Jian Viveros on 05-29-2024 Potassium [Moles/Vol] 4.7 mmol/L 3.3-5.1 [facility] Potassium measurement (mass/ volume)Ordered By: Jian Viveros on 05-29-2024 Potassium (Unsp spec) [Mass/Vol] 4.7 mmol/L 3.3-5.1 [facility] RBC Auto (Bld) [#/Vol]Ordere d By: Jian Viveros on 05-29-2024 RBC (Bld) [#/Vol] 3.58 10*6/uL Low 4.2-5.[address] [facility] Screening total cholesterol/ high density lipoprotein (HDL) cholesterol ratioOrdered By: Jian Viveros on 05-29-2024 Cholesterol.total/Cho lesterol in HDL [Mass ratio] 3.20 {ratio} [facility] Serum creatinine measurement (mass/volume)Ordered By: Jian Viveros on 05-29-2024 Creatinine [Mass/Vol] 1.42 mg/dL High 0.70-1.20 [facility] Serum globulin measurementOr dered By: Jian Viveros on 05-29-2024 Globulin (S) [Mass/Vol] 2.9 g/dL 2.2-4.2 [facility] Serum glucose measurement (m ass/volume)Ordered By: Jian Viveros on 05-29-2024 Glucose [Mass/Vol] 93 mg/dL 70-99 [facility] Serum or plasma alanine murphy otransferase (ALT) measurementOrdered By: Jian Viveros on 05-29-2024 ALT [Catalytic activity/Vol] 29 U/L <35 [facility] Serum or plasma albumin benigno urement (mass/volume)Ordered By: Jian Viveros on 05-29-2024 Albumin [Mass/Vol] 4.1 g/dL 3.4-4.8 [facility] Serum or plasma albumin/glob ulin mass ratioOrdered By: Jian Viveros on 05-29-2024 Albumin/Globulin [Mass ratio] 1.4 {ratio} 0.9-2.4 [facility] Serum or plasma alkaline marlene sphatase measurementOrdered By: Jian Viveros on 05-29-2024 ALP [Catalytic activity/Vol] 96 U/L 35-104 [facility] Serum or plasma calcium benigno urement (mass/volume)Ordered By: Jian Viveros on 05-29-2024 Calcium [Mass/Vol] 9.3 mg/dL 7.6-11.0 [facility] Serum or plasma cholesterol in HDL measurement (mass/volume)Ordered By: Jian Viveros on 03-13-2025 Cholesterol in HDL [Mass/Vol] 69 mg/dL >40 [facility] Comment on above: National Cholesterol Education Program (NCEP) guidelines:<40 mg/dL: Low HDL-cholesterol (major risk factor for CHD)>= 60 mg/dL: High HDL-cholesterol (negative risk factor for CHD)HDL-cholesterol is affected by a number of factors, e.g. smoking, exercise, hormones, sex and age. Serum or plasma cholesterol measurement (mass/volume)Ordered By: Jian Viveros on 05-29-2024 Cholesterol [Mass/Vol] 221 mg/dL High <201 [facility] Comment on above: Cholesterol level, D esirable <200 mg/dLBorderline high cholesterol 200-239 mg/dLHigh cholesterol >=240 mg/dLRecommendations of the NCEP Adult Treatment Panel for the following risk-cutoff thresholds for the [place] population. Serum or plasma thiamine leslie surement (mass/volume)Ordered By: Jian Viveros on 05-29-2024 Thiamine [Mass/Vol] 104.8 nmol/L 66.5-200.0 [facility] Comment on above: Performed at: - [address] [id number] Director: Rick Boone MD, Phone: [phone] Serum or plasma urea nitroge n measurement (mass/volume)Ordered By: Jian Viveros on 05-29-2024 Urea nitrogen [Mass/Vol] 21 mg/dL High 4-19 [facility] Sodium levelOrdered By: Jian Viveros on 05-29-2024 Sodium [Moles/Vol] 135 mmol/L 133-145 [facility] T4 Free Directon 05-29-2024 T4 FREE DIRECT 0.90 ng/dL Normal 0.76-1.46 [facility] Comment on above: Order Comment: Order Date: 05/29/24Order Info: [id number] - CMPOrder Info: [id number] - LIPIDOrder Info: [id number] - MGOrder Info: [id number] - TSHOrder Info: 3024-7 - T4F Performed By: #### L 500.4050, L506.0400, L501.9520, L509.1000, L501.5200, L500.4100, L100.0100 ####[facility] [address] [place], [address] T4 freeOrdered By: Jian andino on 05-29-2024 Free T4 [Mass/Vol] 0.90 ng/dL 0.76-1.46 [facility] TSH DL <= 0.005 mIU/L QnOrde red By: Jian Viveros on 05-29-2024 Thyroid Stimulating Hormone (TSH) 16.400 uIU/mL High 0.300-4.20 0 [facility] TSH Qn 16.400 uIU/mL High 0.300-4.20 0 [facility] Thiamine [Mass/Vol]Ordered B y: Jian Viveros on 05-29-2024 Whole Blood Vitamin B1 Level 104.8 nmol/L 66.5-200.0 [facility] Comment on above: Performed at: [address] [id number] Director: Rick Boone MD, Phone: [phone] Thyroid Stim Hormone (TSH)on 05-29-2024 TSH 16.400 uIU/mL High 0.300-4.20 0 [facility] Comment on above: Order Comment: Order Date: 05/29/24Order Info: [id number] - CMPOrder Info: [id number] - LIPIDOrder Info: [id number] - MGOrder Info: [id number] - TSHOrder Info: 3024-7 - T4F Performed By: #### L 500.4050, L506.0400, L501.9520, L509.1000, L501.5200, L500.4100, L100.0100 ####[facility] [address] [place], [address] Total proteinOrdered By: Raghu Viveros on 05-29-2024 Protein [Mass/Vol] 7.0 g/dL 5.9-8.4 [facility] Triglycerides measurementOrd ered By: Jian Viveros on 05-29-2024 Triglyceride [Mass/Vol] 87 mg/dL <199 [facility] Comment on above: The drugs N-Acetylcy steine and Metamizole may falsely depress this assay. Normal range: <150 mg/dLBorderline High: 150-199 mg/dLHigh: 200-499 mg/dLVery High: >500 mg/dL Vitamin B12 ser/plasOrdered By: Jian Viveros on 05-29-2024 Cobalamin (Vitamin B12) [Mass/Vol] 270 pg/mL 180-914 [facility] Vitamin B6, plasmaOrdered By : Jian Viveros on 05-29-2024 Vitamin B6 Level 77.3 ug/L High 3.4-65.2 [facility] Comment on above: Deficiency: <3.4 Mar ginal: 3.4 - 5.1 Adequate: >5.1 Vitamin D, 25-hydroxyOrdered By: Jian Viveros on 05-29-2024 Vitamin D 25-Hydroxy 29.9 ng/mL Low 30-100 [facility] Comment on above: Vitamin D StatusDefi ciency: <20 ng/mL (50nmol/L)Insufficiency: 20-30 ng/mL (50-75 nmol/L)Sufficiency: 30-100 ng/mL (75-250 nmol/L)Toxicity: >100 ng/mL (>250 nmol/L) White blood cell (WBC) count Ordered By: Jian Viveros on 05-29-2024 WBC (Bld) [#/Vol] 7.9 10*3/uL 4.4-11.0 [facility] Cerv Spine 2 or 3 Viewson Cerv Spine 2 or 3 Views [facility] Imaging Services [address] [place] [address] Cerv Spine 2 or 3 Views MR#: [id number] Acct: [id number] Name: TRINIDAD PARKER Rep #: [id number] : 1935 F 88 From: Yonis Larkin PCP: Dr. Jian Viveros MD Status: [facility] Study: Cerv Spine 2 or 3 Views Date of Exam: 03/04/24 Exam# [id number] Ordering Dr: Jian Viveros MD [id number] INDICATION: pain EXAMINATION/TECHNIQUE: X-RAY - XR Spine [...] EST , CC: Dr. Jian Viveros MD Qc Chemist: Signed Normal [facility] 12 Lead [place] [facility] [place]-11-2024 12 Lead EKG performed by [facility] [address] [place] [address] 12 Lead EKG performed [place] [facility] 02/11/24 0751 MR#: [id number] Acct: [id number] Name: TRINIDAD PARKER Rep #: [id number] : 1935 88 From: Dori Bob Attending Dr: LOLIS Lee Status: DEP AMB Ordering Dr: Dori Wong Date: 01/18 08/09 [place] [facility] [place]: F C [place] [facility]12 Lead E[place] [facility] ECG Report Interpretation -Electronic ventricular pacemaker Pacemaker ECG, No further analysis Electronically signed on 02/22/2024 at 16:39 by Pak[employer] Version [id number] 02/22/24 1643 Date Dori DANIELLE CC: Dr. Jian Viveros MD Date Dictated: 02/11/24750 Date Transcribed: 02/11/24750 Qc Chemist: RIKKI Signed Normal [facility] Cardiology Visit Reporton Cardiology Visit Report [facility] [facility] [address] [place] [address] OFFICE VISIT Date of Service: 02/11/24 MR#: [id number] Acct: [id number] Name: TRINIDAD PARKER Rep #: [id number] : 1935 Provider: LOLIS Evangelista Age/Sex: 88/F Location: [facility] Status: Signed HPI HPI History of [...] 100 Intake Visit Reasons: 2 M FU Environment Coordinator Required: No Is patient in pain?: No [...] eye health 12/04/21 02/11/24 History mg-copper 1 pg-fftrot-qxpzag capsule (PreserVision AREDS-2) magnesium oxide 400 mg [...] Note: no medication list, states no changes [facility] Medical History History of steroid therapy Vertigo [...] Hyperlipidemia Comp (more content not included)... Normal [facility] Absolute lymphocyte countOrd ered By: Jian Viveros on 07-05-2023 Lymphocytes Auto (Unsp spec) [#/Vol] 0.97 10*3/uL 0.83-4.51 [facility] Automated lymphocyte count a s percentage of total leukocytesOrdered By: Jian Viveros on 07-05-2023 Lymphocytes/100 WBC Auto (Unsp spec) 14.2 % 19-41 [facility] Basophil percentageOrdered B y: Jian Viveros on 07-05-2023 Basophil percentage 0 SEEN /hpf 0-5 [facility] Basophil percentage 3.1 mg/dL 2.5-4.[address] [facility] Basophils/100 WBC (Bld) 0.6 % 0-1 [facility] Bilirubin [Mass/Vol] 0.70 mg/dL 0.20-1.00 [facility] Comment on above: For patients on eltr ombopag therapy, use of Dimension [place] TBIL is not recommended. Chloride [Moles/Vol] 106 mmol/L 98-107 [facility] Cholesterol [Mass/Vol] 144 mg/dL <200 [facility] Comment on above: <200 mg/dL Desirable 200-240 mg/dL Borderline >240 mg/dL High Risk Eosinophils/100 WBC (Bld) 0.3 % 0-5 [facility] Glucose [Mass/Vol] 101 mg/dL 74-106 [facility] Comment on above: Fasting Glucose resu lt from 100 to 125 mg/dL suggests IMPAIRED HOMEOSTASIS per A.D.A. criteria. Hemoglobin (Bld) [Mass/Vol] 11.6 g/dL 12.0-15.0 [facility] Monocytes/100 WBC (Bld) 8.3 % 0-10 [facility] [facility] Neutrophils (Bld) [#/Vol] 5.2 10*3/uL 2.0-7.7 [facility] Neutrophils/100 WBC (Bld) 76.5 % 47-70 [facility] Potassium [Moles/Vol] 4.6 mmol/L 3.5-5.1 [facility] Protein [Mass/Vol] 6.9 g/dL 6.4-8.2 [facility] Sodium [Moles/Vol] 138 mmol/L 136-145 [facility] Triglyceride [Mass/Vol] 69 mg/dL <199 [facility] Comment on above: The drugs N-Acetylcy steine and Metamizole may falsely depress this assay.Serum Triglycerides Reference Interval Normal <150 mg/dL Borderline high 150 - 199 mg/dL High 200 - 499 mg/dL Very High > or = 500 mg/dL WBC (Bld) [#/Vol] 6.9 10*3/uL 4.4-11.0 [facility] Bilirubin Test strip Ql (U)O rdered By: Jian Viveros on 07-05-2023 Bilirubin Ql (U) Negative Negative [facility] Determination of erythrocyte mean corpuscular volume (MCV)Ordered By: Jian Viveros on 07-05-2023 MCV (RBC) [Entitic vol] 98.9 fL 81-99 [facility] Erythrocyte distribution wid th ratioOrdered By: Jian Viveros on 07-05-2023 Erythrocyte distribution width (RBC) [Ratio] 12.8 % 11.6-14.6 [facility] Erythrocyte distribution wid th standard deviationOrdered By: Jian Viveros on 07-05-2023 Erythrocyte distribution width (RBC) [Entitic vol] 46.3 fL 35.1-43.9 [facility] Hematocrit Auto (Bld) [Volum e fraction]Ordered By: Jian Viveros on 07-05-2023 Hematocrit (Bld) [Volume fraction] 35.4 % 37-47 [facility] Immature granulocytes/100 WB C Auto (Bld)Ordered By: Jian Viveros on 07-05-2023 Immature granulocytes/100 WBC (Bld) 0.100 % 0.0-0.9 [facility] Comment on above: IG% - Immature Granu locytes (promyelocytes, myelocytes and metamyelocytes) > 1% indicates that a LEFT SHIFT is Present. Ketones Test strip Ql (U)Ord ered By: Jian Viveros on 07-05-2023 Ketones Ql (U) Negative Negative [facility] Laboratory - Chemistry and C hemistry - challengeOrdered By: Jian Viveros on 07-05-2023 Albumin/Globulin [Mass ratio] 1.1 {ratio} 0.9-2.4 [facility] ALP [Catalytic activity/Vol] 86 U/L 45-117 [facility] ALT [Catalytic activity/Vol] 30 U/L 13-56 [facility] Cholesterol in HDL [Mass/Vol] 60 mg/dL >40 [facility] Comment on above: The drugs N-Acetylcy steine and Metamizole may falsely depress this assay. Reference Range HDL <40 mg/dL Low HDL Cholesterol HDL >or= 60 mg/dL High HDL Cholesterol Cholesterol in LDL [Mass/Vol] 70 mg/dL 0-130 [facility] CO2 [Moles/Vol] 26.0 mmol/L 21.0-32.0 [facility] Cobalamin (Vitamin B12) [Mass/Vol] 295 pg/mL 211-911 [facility] Globulin (S) [Mass/Vol] 3.3 g/dL 2.2-4.2 [facility] Magnesium [Mass/Vol] 1.9 mg/dL 1.6-2.6 [facility] Urea nitrogen/Creatinine [Mass ratio] 15.9 mg/mg 10-20 [facility] Laboratory - Hematology and Cell countsOrdered By: Jian Viveros on 07-05-2023 MCH (RBC) [Entitic mass] 32.4 pg 27.0-32.0 [facility] MCHC (RBC) [Mass/Vol] 32.8 g/dL 32- [facility] Nucleated RBC/100 WBC (Bld) [Ratio] 0 % 0-5 [facility] Platelet mean volume (Bld) [Entitic vol] 9.8 fL 6.2-12.0 [facility] Platelets (Bld) [#/Vol] 239 10*3/uL 150-450 [facility] Mucus LM Ql (Urine sed)Order ed By: Jian Viveros on 07-05-2023 Mucus Ql (Urine sed) 0 SEEN /hpf [facility] Nitrite Test strip Ql (U)Ord ered By: Jian Viverso on 07-05-2023 Nitrite Ql (U) Negative Negative [facility] No Panel InformationOrdered By: Jian Viveros on 07-05-2023 Urine RBC 0 SEEN /hpf 0-5 [facility] Estimated GFR (MDRD) Amer 44 mL/min >60 [facility] Comment on above: GFR Calc Estimated GFR (MDRD) Non-Af Amer 36 mL/min >60 [facility] Comment on above: Non- GFR Calc Parathyroid Hormone (Intact) 136.7 pg/mL 18.4-80.1 [facility] Vitamin D 25-Hydroxy 36.6 ng/mL [facility] Comment on above: Vitamin D 25(OH) Sta tus Range Deficiency <20 ng/mL (50nmol/L) Insufficiency 20 - 30 ng/mL (50 - 75 nmol/L) Sufficiency 30 - 100 ng/mL (75 - 250 nmol/L) Toxicity >100 ng/mL (>250 nmol/L) VLDL Cholesterol 14 mg/dL 5-40 [facility] Protein Test strip Ql (U)Ord ered By: Jian Viveros on 07-05-2023 Protein Ql (U) Negative Negative [facility] RBC Auto (Bld) [#/Vol]Ordere d By: Jian Viveros on 07-05-2023 RBC (Bld) [#/Vol] 3.58 10*6/uL 4.2-5.[address] [facility] Serum or plasma calcium benigno urement (mass/volume)Ordered By: Jian Viveros on 07-05-2023 Calcium [Mass/Vol] 9.4 mg/dL 8.5-10.1 [facility] Serum or plasma creatinine m easurement (mass/volume)Ordered By: Jian Viveros on 07-05-2023 Creatinine [Mass/Vol] 1.45 mg/dL 0.55-1.02 [facility] Comment on above: The validity of the calculated GFR & GFRAA in patients over 70 years has not been determined. Clinical correlation is essential. Serum or plasma thiamine leslie surement (mass/volume)Ordered By: Jian Viveros on 07-05-2023 Thiamine [Mass/Vol] 115.2 nmol/L 66.5-200.0 [facility] Comment on above: Performed at: [address] [id number] Director: Rick Boone MD, Phone: [phone] Serum or plasma thyroid stim ulating hormone (TSH) measurement (units/volume)Ordered By: Jian Viveros on 07-05-2023 TSH Qn 1.58 uIU/mL 0.358-3.74 [facility] Serum or plasma urea nitroge n measurement (mass/volume)Ordered By: Jian Viveros on 07-05-2023 Urea nitrogen [Mass/Vol] 23 mg/dL 10-03 [facility] Squamous epithelial cells de tection in urine sediment by light microscopyOrdered By: Jian Viveros on 07-05-2023 Epithelial cells.squamous LM Ql (Urine sed) 0 SEEN /hpf 5-10 [facility] Thin prep Papanicolaou smear with manual screeningOrdered By: Jian Viveros on 07-05-2023 Protein (U) [Mass/Vol] 7.0 mg/dL 0.0-11.8 [facility] Thin prep Papanicolaou smear with manual screening 3.6 g/dL 3.2-5.0 [facility] Thin prep Papanicolaou smear with manual screening 35 U/L 15-37 [facility] Thin prep Papanicolaou smear with manual screening 6 5-15 [facility] Thin prep Papanicolaou smear with manual screening 1.58 ng/dL 0.76-1.46 [facility] Urine blood detectionOrdered By: Jian Viveros on 07-05-2023 RBC Ql (U) Negative Negative [facility] Urine clarityOrdered By: Raghu Viveros on 07-05-2023 Clarity (U) Clear Clear [facility] Urine color determinationOrd ered By: Jian Viveros on 07-05-2023 Color (U) Yellow Yellow [facility] Urine creatinine measurement (mass/volume)Ordered By: Jian Viveros on 07-05-2023 Creatinine (U) [Mass/Vol] 28.70 mg/dL NO RANGE EST. [facility] Urine glucose detectionOrder ed By: Jian Viveros on 07-05-2023 Glucose Ql (U) Normal mg/dl Normal [facility] Urine leukocyte esterase det ection by dipstickOrdered By: Jian Viveros on 07-05-2023 Leukocyte esterase Test strip Ql (U) 100 /ul Negative [facility] Urine pHOrdered By: Jian santoyo on 07-05-2023 pH (U) 8.0 [pH] 5.0 - 8.0 [facility] Urine protein/creatinine mas s ratioOrdered By: Jian Viveros on 07-05-2023 Protein/Creatinine (U) [Mass ratio] 244 mg/g CRE 0-200 [facility] Urine sediment bacteria coun t by microscopy (number/high power field)Ordered By: Jian Viveros on 07-05-2023 Bacteria LM.HPF (Urine sed) [#/Area] 0 /[HPF] None Seen [facility] Urine specific gravity measu rementOrdered By: Jian Viveros on 07-05-2023 Specific gravity (U) [Rel density] 1.010 1.002-1.03 0 [facility] Urine urobilinogen measureme ntOrdered By: Jian Viveros on 07-05-2023 Urobilinogen Ql (U) Normal mg/dl Normal [facility] Absolute lymphocyte countOrd ered By: Jian Viveros on 04-24-2023 Lymphocytes Auto (Unsp spec) [#/Vol] 1.05 10*3/uL 0.83-4.51 [facility] Automated lymphocyte count a s percentage of total leukocytesOrdered By: Jian Viveros on 04-24-2023 Lymphocytes/100 WBC Auto (Unsp spec) 14.3 % 19-41 [facility] Basophil percentageOrdered B y: Jian Viveros on 04-24-2023 Basophil percentage 0-5 SEEN /hpf 0-5 [facility] Basophil percentage 3.2 mg/dL 2.5-4.[address] [facility] Basophils/100 WBC (Bld) 0.7 % 0-1 [facility] Bilirubin [Mass/Vol] 0.60 mg/dL 0.20-1.00 [facility] Comment on above: For patients on eltr ombopag therapy, use of Dimension [place] TBIL is not recommended. Chloride [Moles/Vol] 108 mmol/L 98-107 [facility] Cholesterol [Mass/Vol] 209 mg/dL <200 [facility] Comment on above: <200 mg/dL Desirable 200-240 mg/dL Borderline >240 mg/dL High Risk Eosinophils/100 WBC (Bld) 3.0 % 0-5 [facility] Glucose [Mass/Vol] 135 mg/dL 74-106 [facility] Comment on above: Fasting Glucose resu lt greater than or equal to 126 mg/dL suggests DIABETES MELLITUS per A.D.A. criteria. Hemoglobin (Bld) [Mass/Vol] 11.8 g/dL 12.0-15.0 [facility] Monocytes/100 WBC (Bld) 6.5 % 0-10 [facility] Neutrophils (Bld) [#/Vol] 5.5 10*3/uL 2.0-7.7 [facility] Neutrophils/100 WBC (Bld) 75.0 % 47-70 [facility] Potassium [Moles/Vol] 4.2 mmol/L 3.5-5.1 [facility] Protein [Mass/Vol] 7.0 g/dL 6.4-8.2 [facility] Sodium [Moles/Vol] 136 mmol/L 136-145 [facility] Triglyceride [Mass/Vol] 132 mg/dL <199 [facility] Comment on above: The drugs N-Acetylcy steine and Metamizole may falsely depress this assay.Serum Triglycerides Reference Interval Normal <150 mg/dL Borderline high 150 - 199 mg/dL High 200 - 499 mg/dL Very High > or = 500 mg/dL WBC (Bld) [#/Vol] 7.4 10*3/uL 4.4-11.0 [facility] Bilirubin Test strip Ql (U)O rdered By: Jian Viveros on 04-24-2023 Bilirubin Ql (U) Negative Negative [facility] Determination of erythrocyte mean corpuscular volume (MCV)Ordered By: Jian Viveros on 04-24-2023 MCV (RBC) [Entitic vol] 101.4 fL 81-99 [facility] Erythrocyte distribution wid th ratioOrdered By: Jian Viveros on 04-24-2023 Erythrocyte distribution width (RBC) [Ratio] 12.6 % 11.6-14.6 [facility] Erythrocyte distribution wid th standard deviationOrdered By: Jian Viveros on 04-24-2023 Erythrocyte distribution width (RBC) [Entitic vol] 47.2 fL 35.1-43.9 [facility] Hematocrit Auto (Bld) [Volum e fraction]Ordered By: Jian Viveros on 04-24-2023 Hematocrit (Bld) [Volume fraction] 37.3 % 37-47 [facility] Immature granulocytes/100 WB C Auto (Bld)Ordered By: Jian Viveros on 04-24-2023 Immature granulocytes/100 WBC (Bld) 0.500 % 0.0-0.9 [facility] Comment on above: IG% - Immature Granu locytes (promyelocytes, myelocytes and metamyelocytes) > 1% indicates that a LEFT SHIFT is Present. Ketones Test strip Ql (U)Ord ered By: Jian Viveros on 04-24-2023 Ketones Ql (U) Negative Negative [facility] Laboratory - Chemistry and C hemistry - challengeOrdered By: Jian Viveros on 04-24-2023 Albumin/Globulin [Mass ratio] 1.1 {ratio} 0.9-2.4 [facility] ALP [Catalytic activity/Vol] 82 U/L 45-117 [facility] ALT [Catalytic activity/Vol] 29 U/L 13-56 [facility] Cholesterol in HDL [Mass/Vol] 60 mg/dL >40 [facility] Comment on above: The drugs N-Acetylcy steine and Metamizole may falsely depress this assay. Reference Range HDL <40 mg/dL Low HDL Cholesterol HDL >or= 60 mg/dL High HDL Cholesterol Cholesterol in LDL [Mass/Vol] 123 mg/dL 0-130 [facility] CO2 [Moles/Vol] 25.0 mmol/L 21.0-32.0 [facility] Cobalamin (Vitamin B12) [Mass/Vol] 316 pg/mL 211-911 [facility] Globulin (S) [Mass/Vol] 3.4 g/dL 2.2-4.2 [facility] Magnesium [Mass/Vol] 1.8 mg/dL 1.6-2.6 [facility] Urea nitrogen/Creatinine [Mass ratio] 15.6 mg/mg 10-20 [facility] Laboratory - Hematology and Cell countsOrdered By: Jian Viveros on 04-24-2023 MCH (RBC) [Entitic mass] 32.1 pg 27.0-32.0 [facility] MCHC (RBC) [Mass/Vol] 31.6 g/dL 32-36 [facility] Nucleated RBC/100 WBC (Bld) [Ratio] 0 % 0-5 [facility] Platelet mean volume (Bld) [Entitic vol] 10.1 fL 6.2-12.0 [facility] Platelets (Bld) [#/Vol] 215 10*3/uL 150-450 [facility] Mucus LM Ql (Urine sed)Order ed By: Jian Viveros on 04-24-2023 Mucus Ql (Urine sed) 0 SEEN /hpf [facility] Nitrite Test strip Ql (U)Ord ered By: Jian Viveros on 04-24-2023 Nitrite Ql (U) Positive Negative [facility] No Panel InformationOrdered By: Jian Viveros on 04-24-2023 Urine RBC 0-5 SEEN /hpf 0-5 [facility] Estimated GFR (MDRD) Amer 46 mL/min >60 [facility] Comment on above: GFR Calc Estimated GFR (MDRD) Non-Af Amer 38 mL/min >60 [facility] Comment on above: Non- GFR Calc Parathyroid Hormone (Intact) 105.6 pg/mL 18.4-80.1 [facility] Vitamin D 25-Hydroxy 31.2 ng/mL [facility] Comment on above: Vitamin D 25(OH) Sta tus Range Deficiency <20 ng/mL (50nmol/L) Insufficiency 20 - 30 ng/mL (50 - 75 nmol/L) Sufficiency 30 - 100 ng/mL (75 - 250 nmol/L) Toxicity >100 ng/mL (>250 nmol/L) VLDL Cholesterol 26 mg/dL 5-40 [facility] Protein Test strip Ql (U)Ord ered By: Jian Viveros on 04-24-2023 Protein Ql (U) 15 mg/dl Negative [facility] RBC Auto (Bld) [#/Vol]Ordere d By: Jian Viveros on 04-24-2023 RBC (Bld) [#/Vol] 3.68 10*6/uL 4.2-5.[address] [facility] Serum or plasma calcium benigno urement (mass/volume)Ordered By: Jian Viveros on 04-24-2023 Calcium [Mass/Vol] 8.9 mg/dL 8.5-10.1 [facility] Serum or plasma creatinine m easurement (mass/volume)Ordered By: Jian Viveros on 04-24-2023 Creatinine [Mass/Vol] 1.41 mg/dL 0.55-1.02 [facility] Comment on above: The validity of the calculated GFR & GFRAA in patients over 70 years has not been determined. Clinical correlation is essential. Serum or plasma thiamine leslie surement (mass/volume)Ordered By: Jian Viveros on 04-24-2023 Thiamine [Mass/Vol] 134.3 nmol/L 66.5-200.0 [facility] Comment on above: Performed at: [address], [place] [id number] Director: Rick Boone MD, Phone: [phone] Serum or plasma thyroid stim ulating hormone (TSH) measurement (units/volume)Ordered By: Jian Viveros on 04-24-2023 TSH Qn 10.30 uIU/mL 0.358-3.74 [facility] Serum or plasma urea nitroge n measurement (mass/volume)Ordered By: Jian Viveros on 04-24-2023 Urea nitrogen [Mass/Vol] 22 mg/dL 7-18 [facility] Squamous epithelial cells de tection in urine sediment by light microscopyOrdered By: Jian Viveros on 04-24-2023 Epithelial cells.squamous LM Ql (Urine sed) 0-5 SEEN /hpf 5-10 [facility] Thin prep Papanicolaou smear with manual screeningOrdered By: Jian Viveros on 04-24-2023 Protein (U) [Mass/Vol] 10.9 mg/dL 0.0-11.8 [facility] Thin prep Papanicolaou smear with manual screening 3.6 g/dL 3.2-5.0 [facility] Thin prep Papanicolaou smear with manual screening 30 U/L 15-37 [facility] Thin prep Papanicolaou smear with manual screening 3 5-15 [facility] Thin prep Papanicolaou smear with manual screening 0.98 ng/dL 0.76-1.46 [facility] Urine blood detectionOrdered By: Jian Viveros on 04-24-2023 RBC Ql (U) 10 /ul Negative [facility] Urine clarityOrdered By: Raghu Viveros on 04-24-2023 Clarity (U) Sl. Cloudy Clear [facility] Urine color determinationOrd ered By: Jian Viveros on 04-24-2023 Color (U) Yellow Yellow [facility] Urine creatinine measurement (mass/volume)Ordered By: Jian Viverso on 04-24-2023 Creatinine (U) [Mass/Vol] 57.00 mg/dL NO RANGE EST. [facility] Urine glucose detectionOrder ed By: Jian Viveros on 04-24-2023 Glucose Ql (U) Normal mg/dl Normal [facility] Urine leukocyte esterase det ection by dipstickOrdered By: Jian Viveros on 04-24-2023 Leukocyte esterase Test strip Ql (U) 25 /ul Negative [facility] Urine pHOrdered By: Jian santoyo on 04-24-2023 pH (U) 6.5 [pH] 5.0 - 8.0 [facility] Urine protein/creatinine mas s ratioOrdered By: Jian Viveros on 04-24-2023 Protein/Creatinine (U) [Mass ratio] 191 mg/g CRE 0-200 [facility] Urine sediment bacteria coun t by microscopy (number/high power field)Ordered By: Jian Viveros on 04-24-2023 Bacteria LM.HPF (Urine sed) [#/Area] 0 /[HPF] None Seen [facility] Urine specific gravity measu rementOrdered By: Jian Viveros on 04-24-2023 Specific gravity (U) [Rel density] 1.010 1.002-1.03 0 [facility] Urine urobilinogen measureme ntOrdered By: Jian Viveros on 04-24-2023 Urobilinogen Ql (U) Normal mg/dl Normal [facility] Absolute lymphocyte countOrd ered By: Jian Viveros on 01-12-2023 Lymphocytes Auto (Unsp spec) [#/Vol] 1.00 10*3/uL 0.83-4.51 [facility] Basophil percentageOrdered B y: Jian Viveros on 01-12-2023 Basophil percentage 3.4 mg/dL 2.5-4.[address] [facility] Basophils/100 WBC (Bld) 0.5 % 0-1 [facility] Bilirubin [Mass/Vol] 0.70 mg/dL 0.20-1.00 [facility] Comment on above: For patients on eltr ombopag therapy, use of Dimension [place] TBIL is not recommended. Chloride [Moles/Vol] 107 mmol/L 98-107 [facility] Cholesterol [Mass/Vol] 177 mg/dL <200 [facility] Comment on above: <200 mg/dL Desirable 200-240 mg/dL Borderline >240 mg/dL High Risk Eosinophils/100 WBC (Bld) 1.7 % 0-5 [facility] Glucose [Mass/Vol] 79 mg/dL 74-106 [facility] Neutrophils (Bld) [#/Vol] 5.7 10*3/uL 2.0-7.7 [facility] Neutrophils/100 WBC (Bld) 76.9 % 47-70 [facility] Potassium [Moles/Vol] 4.0 mmol/L 3.5-5.1 [facility] Protein [Mass/Vol] 7.5 g/dL 6.4-8.2 [facility] Sodium [Moles/Vol] 134 mmol/L 136-145 [facility] Triglyceride [Mass/Vol] 88 mg/dL <199 [facility] Comment on above: The drugs N-Acetylcy steine and Metamizole may falsely depress this assay.Serum Triglycerides Reference Interval Normal <150 mg/dL Borderline high 150 - 199 mg/dL High 200 - 499 mg/dL Very High > or = 500 mg/dL WBC (Bld) [#/Vol] 7.5 10*3/uL 4.4-11.0 [facility] Blood erythrocytes count (nu mber/volume)Ordered By: Jian Viveros on 01-12-2023 RBC (Bld) [#/Vol] 3.77 10*6/uL 4.2-5.[address] [facility] Blood hemoglobin measurement (mass/volume)Ordered By: Jian Viveros on 01-12-2023 Hemoglobin (Bld) [Mass/Vol] 12.1 g/dL 12.0-15.0 [facility] Blood lymphocytes/100 leukoc ytesOrdered By: Jian Viveros on 01-12-2023 Lymphocytes/100 WBC (Bld) 13.4 % 19-41 [facility] Blood monocytes/100 leukocyt esOrdered By: Jian Viveros on 01-12-2023 Monocytes/100 WBC (Bld) 7.2 % 0-10 [facility] Blood platelet mean volumeOr dered By: Jian Viveros on 01-12-2023 Platelet mean volume (Bld) [Entitic vol] 10.0 fL 6.2-12.0 [facility] Determination of erythrocyte mean corpuscular volume (MCV)Ordered By: Jian Viveros on 01-12-2023 MCV (RBC) [Entitic vol] 100.0 fL 81-99 [facility] Hematocrit Auto (Bld) [Volum e fraction]Ordered By: Jian Viveros on 01-12-2023 Hematocrit (Bld) [Volume fraction] 37.7 % 37-47 [facility] Laboratory - Chemistry and C hemistry - challengeOrdered By: Jian Viveros on 01-12-2023 ALP [Catalytic activity/Vol] 93 U/L 45-117 [facility] ALT [Catalytic activity/Vol] 28 U/L 13-56 [facility] CO2 [Moles/Vol] 25.0 mmol/L 21.0-32.0 [facility] Cobalamin (Vitamin B12) [Mass/Vol] 321 pg/mL 211-911 [facility] Free T4 [Mass/Vol] 1.31 ng/dL 0.76-1.46 [facility] Globulin (S) [Mass/Vol] 3.8 g/dL 2.2-4.2 [facility] Magnesium [Mass/Vol] 2.0 mg/dL 1.6-2.6 [facility] Urea nitrogen/Creatinine [Mass ratio] 15.7 mg/mg 10-20 [facility] Laboratory - Hematology and Cell countsOrdered By: Jian Viveros on 01-12-2023 Erythrocyte distribution width (RBC) [Entitic vol] 45.3 fL 35.1-43.9 [facility] Erythrocyte distribution width (RBC) [Ratio] 12.4 % 11.6-14.6 [facility] Immature granulocytes/100 WBC (Bld) 0.300 % 0.0-0.9 [facility] Comment on above: IG% - Immature Granu locytes (promyelocytes, myelocytes and metamyelocytes) > 1% indicates that a LEFT SHIFT is Present. MCH (RBC) [Entitic mass] 32.1 pg 27.0-32.0 [facility] Nucleated RBC/100 WBC (Bld) [Ratio] 0 % 0-5 [facility] MCHC Auto (RBC) [Mass/Vol]Or dered By: Jian Viveros on 01-12-2023 MCHC (RBC) [Mass/Vol] 32.1 g/dL 32-36 [facility] No Panel InformationOrdered By: Jian Viveros on 01-12-2023 Whole Blood Vitamin B1 Level See comment [facility] Comment on above: TEST RESULTS LIMITSV itamin B1 (Thiamine), BloodVit. B1, Whole Blood 143.7 nmol/L 66.5-200.0 TESTING PERFORMED AT [facility]. ORIGINAL REPORT ON FILE IN LAB CONTAINS ADDITIONAL TEST SITE INFORMATION. Estimated GFR (MDRD) Amer 46 mL/min >60 [facility] Comment on above: GFR Calc Estimated GFR (MDRD) Non-Af Amer 38 mL/min >60 [facility] Comment on above: Non- GFR Calc Parathyroid Hormone (Intact) 93.0 pg/mL 18.4-80.1 [facility] Thyroid Stimulating Hormone (TSH) 3.70 uIU/mL 0.358-3.74 [facility] Vitamin D 25-Hydroxy 29.8 ng/mL [facility] Comment on above: Vitamin D 25(OH) Sta tus Range Deficiency <20 ng/mL (50nmol/L) Insufficiency 20 - 30 ng/mL (50 - 75 nmol/L) Sufficiency 30 - 100 ng/mL (75 - 250 nmol/L) Toxicity >100 ng/mL (>250 nmol/L) Platelets bldOrdered By: Raghu Viveros on 01-12-2023 Platelets (Bld) [#/Vol] 247 10*3/uL 150-450 [facility] Serum or plasma albumin benigno urement (mass/volume)Ordered By: Jian Viveros on 01-12-2023 Albumin [Mass/Vol] 3.7 g/dL 3.2-5.0 [facility] Serum or plasma albumin/glob ulin mass ratioOrdered By: Jian Viveros on 01-12-2023 Albumin/Globulin [Mass ratio] 1.0 {ratio} 0.9-2.4 [facility] Serum or plasma calcium benigno urement (mass/volume)Ordered By: Jian Viveros on 01-12-2023 Calcium [Mass/Vol] 9.1 mg/dL 8.5-10.1 [facility] Serum or plasma cholesterol in HDL measurement (mass/volume)Ordered By: Jian Viveros on 01-12-2023 Cholesterol in HDL [Mass/Vol] 63 mg/dL >40 [facility] Comment on above: The drugs N-Acetylcy steine and Metamizole may falsely depress this assay. Reference Range HDL <40 mg/dL Low HDL Cholesterol HDL >or= 60 mg/dL High HDL Cholesterol Serum or plasma cholesterol in VLDL measurement (mass/volume)Ordered By: Jian Viveros on 01-12-2023 Cholesterol in VLDL [Mass/Vol] 18 mg/dL 5-40 [facility] Serum or plasma creatinine m easurement (mass/volume)Ordered By: Jian Viveros on 01-12-2023 Creatinine [Mass/Vol] 1.40 mg/dL 0.55-1.02 [facility] Comment on above: The validity of the calculated GFR & GFRAA in patients over 70 years has not been determined. Clinical correlation is essential. Serum or plasma low density lipoprotein (LDL) cholesterol measurement (mass/volume)Ordered By: Jian Viveros on 01-12-2023 Cholesterol in LDL [Mass/Vol] 96 mg/dL 0-130 [facility] Serum or plasma urea nitroge n measurement (mass/volume)Ordered By: Jian Viveros on 01-12-2023 Urea nitrogen [Mass/Vol] 22 mg/dL 7-18 [facility] Thin prep Papanicolaou smear with manual screeningOrdered By: Jian Viveros on 01-12-2023 Thin prep Papanicolaou smear with manual screening 27 U/L 15-37 [facility] Thin prep Papanicolaou smear with manual screening 2 5-15 [facility] Urine creatinine measurement (mass/volume)Ordered By: Jina Viveros on 01-12-2023 Creatinine (U) [Mass/Vol] 60.90 mg/dL NO RANGE EST. [facility] Urine protein measurement (m ass/volume)Ordered By: Jian Viveros on 01-12-2023 Protein (U) [Mass/Vol] 9.7 mg/dL 0.0-11.8 [facility] Urine protein/creatinine mas s ratioOrdered By: Jian Viveros on 01-12-2023 Protein/Creatinine (U) [Mass ratio] 159 mg/g CRE 0-200 [facility] Absolute lymphocyte countOrd ered By: Jian Viveros on 09-28-2022 Lymphocytes Auto (Unsp spec) [#/Vol] 1.14 10*3/uL 0.83-4.51 [facility] Basophil percentageOrdered B y: Jian Sampsonaldo on 09-28-2022 Basophil percentage 3.1 mg/dL 2.5-4.[address] [facility] Basophils/100 WBC (Bld) 0.7 % 0-1 [facility] Bilirubin [Mass/Vol] 0.40 mg/dL 0.20-1.00 [facility] Comment on above: For patients on eltr ombopag therapy, use of Dimension [place] TBIL is not recommended. Chloride [Moles/Vol] 107 mmol/L 98-107 [facility] Cholesterol [Mass/Vol] 187 mg/dL <200 [facility] Comment on above: <200 mg/dL Desirable 200-240 mg/dL Borderline >240 mg/dL High Risk Eosinophils/100 WBC (Bld) 1.1 % 0-5 [facility] Glucose [Mass/Vol] 105 mg/dL 74-106 [facility] Comment on above: Fasting Glucose resu lt from 100 to 125 mg/dL suggests IMPAIRED HOMEOSTASIS per A.D.A. criteria. Neutrophils (Bld) [#/Vol] 5.4 10*3/uL 2.0-7.7 [facility] Neutrophils/100 WBC (Bld) 75.2 % 47-70 [facility] Potassium [Moles/Vol] 4.5 mmol/L 3.5-5.1 [facility] Protein [Mass/Vol] 7.2 g/dL 6.4-8.2 [facility] Sodium [Moles/Vol] 137 mmol/L 136-145 [facility] Triglyceride [Mass/Vol] 129 mg/dL <199 [facility] Comment on above: The drugs N-Acetylcy steine and Metamizole may falsely depress this assay.Serum Triglycerides Reference Interval Normal <150 mg/dL Borderline high 150 - 199 mg/dL High 200 - 499 mg/dL Very High > or = 500 mg/dL WBC (Bld) [#/Vol] 7.1 10*3/uL 4.4-11.0 [facility] Blood erythrocytes count (nu mber/volume)Ordered By: Jian Viveros on 09-28-2022 RBC (Bld) [#/Vol] 3.58 10*6/uL 4.2-5.[address] [facility] Blood hemoglobin measurement (mass/volume)Ordered By: Jian Viveros on 09-28-2022 Hemoglobin (Bld) [Mass/Vol] 11.9 g/dL 12.0-15.0 [facility] Blood lymphocytes/100 leukoc ytesOrdered By: Jian Viveros on 09-28-2022 Lymphocytes/100 WBC (Bld) 16.0 % 19-41 [facility] Blood monocytes/100 leukocyt esOrdered By: Jian Viveros on 09-28-2022 Monocytes/100 WBC (Bld) 6.9 % 0-10 [facility] Blood platelet mean volumeOr dered By: Jian Viveros on 09-28-2022 Platelet mean volume (Bld) [Entitic vol] 9.8 fL 6.2-12.0 [facility] Determination of erythrocyte mean corpuscular volume (MCV)Ordered By: Jian Viveros on 09-28-2022 MCV (RBC) [Entitic vol] 100.0 fL 81-99 [facility] Hematocrit Auto (Bld) [Volum e fraction]Ordered By: Jian Viveros on 09-28-2022 Hematocrit (Bld) [Volume fraction] 35.8 % 37-47 [facility] Laboratory - Chemistry and C hemistry - challengeOrdered By: Jian Viveros on 09-28-2022 ALP [Catalytic activity/Vol] 81 U/L 45-117 [facility] ALT [Catalytic activity/Vol] 27 U/L 13-56 [facility] CO2 [Moles/Vol] 24.0 mmol/L 21.0-32.0 [facility] Cobalamin (Vitamin B12) [Mass/Vol] 342 pg/mL 211-911 [facility] Free T4 [Mass/Vol] 0.78 ng/dL 0.76-1.46 [facility] Globulin (S) [Mass/Vol] 3.5 g/dL 2.2-4.2 [facility] Magnesium [Mass/Vol] 2.1 mg/dL 1.6-2.6 [facility] Urea nitrogen/Creatinine [Mass ratio] 17.8 mg/mg 10-20 [facility] Laboratory - Hematology and Cell countsOrdered By: Jian Viveros on 09-28-2022 Erythrocyte distribution width (RBC) [Entitic vol] 45.1 fL 35.1-43.9 [facility] Erythrocyte distribution width (RBC) [Ratio] 12.3 % 11.6-14.6 [facility] Immature granulocytes/100 WBC (Bld) 0.100 % 0.0-0.9 [facility] Comment on above: IG% - Immature Granu locytes (promyelocytes, myelocytes and metamyelocytes) > 1% indicates that a LEFT SHIFT is Present. MCH (RBC) [Entitic mass] 33.2 pg 27.0-32.0 [facility] Nucleated RBC/100 WBC (Bld) [Ratio] 0 % 0-5 [facility] MCHC Auto (RBC) [Mass/Vol]Or dered By: Jian Viveros on 09-28-2022 MCHC (RBC) [Mass/Vol] 33.2 g/dL 32-36 [facility] No Panel InformationOrdered By: Jian Viveros on 09-28-2022 Estimated GFR (MDRD) Amer 51 mL/min >60 [facility] Comment on above: GFR Calc Estimated GFR (MDRD) Non-Af Amer 42 mL/min >60 [facility] Comment on above: Non- GFR Calc Parathyroid Hormone (Intact) 113.6 pg/mL 18.4-80.1 [facility] Thyroid Stimulating Hormone (TSH) 21.20 uIU/mL 0.358-3.74 [facility] Vitamin B6 Level 10.5 ug/L 3.4-65.2 [facility] Comment on above: Deficiency: <3.4 Mar ginal: 3.4 - 5.1 Adequate: >5.1 Vitamin D 25-Hydroxy 33.0 ng/mL [facility] Comment on above: Vitamin D 25(OH) Sta tus Range Deficiency <20 ng/mL (50nmol/L) Insufficiency 20 - 30 ng/mL (50 - 75 nmol/L) Sufficiency 30 - 100 ng/mL (75 - 250 nmol/L) Toxicity >100 ng/mL (>250 nmol/L) Whole Blood Vitamin B1 Level 148.3 nmol/L 66.5-200.0 [facility] Comment on above: Performed at: [address] [id number] Director: Rick Boone MD, Phone: [phone] Platelets bldOrdered By: Raghu Viveros on 09-28-2022 Platelets (Bld) [#/Vol] 215 10*3/uL 150-450 [facility] Serum or plasma albumin benigno urement (mass/volume)Ordered By: Jian Viveros on 09-28-2022 Albumin [Mass/Vol] 3.7 g/dL 3.2-5.0 [facility] Serum or plasma albumin/glob ulin mass ratioOrdered By: Jian Viveros on 09-28-2022 Albumin/Globulin [Mass ratio] 1.1 {ratio} 0.9-2.4 [facility] Serum or plasma calcium benigno urement (mass/volume)Ordered By: Jian Viveros on 09-28-2022 Calcium [Mass/Vol] 8.8 mg/dL 8.5-10.1 [facility] Serum or plasma cholesterol in HDL measurement (mass/volume)Ordered By: Jian Viveros on 09-28-2022 Cholesterol in HDL [Mass/Vol] 52 mg/dL >40 [facility] Comment on above: The drugs N-Acetylcy steine and Metamizole may falsely depress this assay. Reference Range HDL <40 mg/dL Low HDL Cholesterol HDL >or= 60 mg/dL High HDL Cholesterol Serum or plasma cholesterol in VLDL measurement (mass/volume)Ordered By: Jian Viveros on 09-28-2022 Cholesterol in VLDL [Mass/Vol] 26 mg/dL 5-40 [facility] Serum or plasma creatinine m easurement (mass/volume)Ordered By: Jian Viveros on 09-28-2022 Creatinine [Mass/Vol] 1.29 mg/dL 0.55-1.02 [facility] Comment on above: The validity of the calculated GFR & GFRAA in patients over 70 years has not been determined. Clinical correlation is essential. Serum or plasma low density lipoprotein (LDL) cholesterol measurement (mass/volume)Ordered By: Jian Viveros on 09-28-2022 Cholesterol in LDL [Mass/Vol] 109 mg/dL 0-130 [facility] Serum or plasma urea nitroge n measurement (mass/volume)Ordered By: Jian Viveros on 09-28-2022 Urea nitrogen [Mass/Vol] 23 mg/dL 7-18 [facility] Thin prep Papanicolaou smear with manual screeningOrdered By: Jian Viveros on 09-28-2022 Thin prep Papanicolaou smear with manual screening 31 U/L 15-37 [facility] Thin prep Papanicolaou smear with manual screening 6 5-15 [facility] Absolute lymphocyte countOrd ered By: Dieter Johnson on 07-25-2022 Lymphocytes Auto (Unsp spec) [#/Vol] 0.85 10*3/uL 0.83-4.51 [facility] Basophil percentageOrdered B y: Dieter Johnson on 07-25-2022 Basophils/100 WBC (Bld) 0.2 % 0-1 [facility] Eosinophils/100 WBC (Bld) 0.2 % 0-5 [facility] Neutrophils (Bld) [#/Vol] 7.1 10*3/uL 2.0-7.7 [facility] Neutrophils/100 WBC (Bld) 81.8 % 47-70 [facility] WBC (Bld) [#/Vol] 8.7 10*3/uL 4.4-11.0 [facility] Blood erythrocytes count (nu mber/volume)Ordered By: Dieter Johnson on 07-25-2022 RBC (Bld) [#/Vol] 3.09 10*6/uL 4.2-5.[address] [facility] Blood hemoglobin measurement (mass/volume)Ordered By: Dieter Johnson on 07-25-2022 Hemoglobin (Bld) [Mass/Vol] 10.2 g/dL 12.0-15.0 [facility] Blood lymphocytes/100 leukoc ytesOrdered By: Dieter Johnson on 07-25-2022 Lymphocytes/100 WBC (Bld) 9.8 % 19-41 [facility] Blood monocytes/100 leukocyt esOrdered By: Dieter Johnson on 07-25-2022 Monocytes/100 WBC (Bld) 7.7 % 0-10 [facility] Blood platelet mean volumeOr dered By: Dieter Johnson on 07-25-2022 Platelet mean volume (Bld) [Entitic vol] 9.5 fL 6.2-12.0 [facility] Determination of erythrocyte mean corpuscular volume (MCV)Ordered By: Dieter Johnson on 07-25-2022 MCV (RBC) [Entitic vol] 100.3 fL 81-99 [facility] Hematocrit Auto (Bld) [Volum e fraction]Ordered By: Dieter Johnson on 07-25-2022 Hematocrit (Bld) [Volume fraction] 31.0 % 37-47 [facility] Laboratory - Hematology and Cell countsOrdered By: Dieter Johnson on 07-25-2022 Erythrocyte distribution width (RBC) [Entitic vol] 45.6 fL 35.1-43.9 [facility] Erythrocyte distribution width (RBC) [Ratio] 12.5 % 11.6-14.6 [facility] Immature granulocytes/100 WBC (Bld) 0.300 % 0.0-0.9 [facility] Comment on above: IG% - Immature Granu locytes (promyelocytes, myelocytes and metamyelocytes) > 1% indicates that a LEFT SHIFT is Present. MCH (RBC) [Entitic mass] 33.0 pg 27.0-32.0 [facility] Nucleated RBC/100 WBC (Bld) [Ratio] 0 % 0-5 [facility] MCHC Auto (RBC) [Mass/Vol]Or dered By: Dieter Johnson on 07-25-2022 MCHC (RBC) [Mass/Vol] 32.9 g/dL 32-36 [facility] Platelets bldOrdered By: Sharda Johnson on 07-25-2022 Platelets (Bld) [#/Vol] 171 10*3/uL 150-450 [facility] No Panel InformationOrdered By: Dieter Johnson on 07-24-2022 Activated Clotting Time 233 sec 74-137 [facility] Basophil percentageOrdered B y: Dieter Johnson on 07-17-2022 Chloride [Moles/Vol] 105 mmol/L 98-107 [facility] Glucose [Mass/Vol] 93 mg/dL 74-106 [facility] Potassium [Moles/Vol] 4.8 mmol/L 3.5-5.1 [facility] Sodium [Moles/Vol] 137 mmol/L 136-145 [facility] Basophil percentageOrdered B y: Clint Montes on 07-17-2022 Bilirubin [Mass/Vol] 0.40 mg/dL 0.20-1.00 [facility] Comment on above: For patients on eltr ombopag therapy, use of Dimension [place] TBIL is not recommended. Protein [Mass/Vol] 7.5 g/dL 6.4-8.2 [facility] Direct bilirubinOrdered By: Clint Montes on 07-17-2022 Bilirubin.direct [Mass/Vol] 0.12 mg/dL 0.00-0.30 [facility] INR in Blood by Coagulation assayOrdered By: Clint Montes on 07-17-2022 INR Coag (Bld) [Relative time] 1.2 {INR} [facility] Laboratory - Chemistry and C hemistry - challengeOrdered By: Dieter Johnson on 07-17-2022 CO2 [Moles/Vol] 27.0 mmol/L 21.0-32.0 [facility] Urea nitrogen/Creatinine [Mass ratio] 16.7 mg/mg 10-20 [facility] Laboratory - Chemistry and C hemistry - challengeOrdered By: Clint Montes on 07-17-2022 ALP [Catalytic activity/Vol] 84 U/L 45-117 [facility] ALT [Catalytic activity/Vol] 28 U/L 13-56 [facility] Globulin (S) [Mass/Vol] 3.7 g/dL 2.2-4.2 [facility] Laboratory - CoagulationOrde red By: Clint Montes on 07-17-2022 aPTT Coag (Bld) [Time] 37.9 s 24.1-36.2 [facility] PT Coag (PPP) [Time] 15.1 s 11.7-14.9 [facility] No Panel InformationOrdered By: Dieter Johnson on 07-17-2022 Estimated GFR (MDRD) Amer 45 mL/min >60 [facility] Comment on above: GFR Calc Estimated GFR (MDRD) Non-Af Amer 37 mL/min >60 [facility] Comment on above: Non- GFR Calc Serum or plasma albumin benigno urement (mass/volume)Ordered By: Clint Montes on 07-17-2022 Albumin [Mass/Vol] 3.8 g/dL 3.2-5.0 [facility] Serum or plasma calcium benigno urement (mass/volume)Ordered By: Dieter Johnson on 07-17-2022 Calcium [Mass/Vol] 9.2 mg/dL 8.5-10.1 [facility] Serum or plasma creatinine m easurement (mass/volume)Ordered By: Dieter Johnson on 07-17-2022 Creatinine [Mass/Vol] 1.44 mg/dL 0.55-1.02 [facility] Comment on above: The validity of the calculated GFR & GFRAA in patients over 70 years has not been determined. Clinical correlation is essential. Serum or plasma urea nitroge n measurement (mass/volume)Ordered By: Dieter Johnson on 07-17-2022 Urea nitrogen [Mass/Vol] 24 mg/dL 7-18 [facility] Thin prep Papanicolaou smear with manual screeningOrdered By: Dietre Johnson on 07-17-2022 Thin prep Papanicolaou smear with manual screening 5 5-15 [facility] Thin prep Papanicolaou smear with manual screeningOrdered By: Clint Montes on 07-17-2022 Thin prep Papanicolaou smear with manual screening 31 U/L 15-37 [facility] Absolute lymphocyte countOrd ered By: Dr. Viveros on 06-13-2022 Lymphocytes Auto (Unsp spec) [#/Vol] 1.29 10*3/uL 0.83-4.51 [facility] Basophil percentageOrdered B y: Dr. Viveros on 06-13-2022 Basophil percentage 0 SEEN /hpf 0-5 [facility] Basophil percentage 3.0 mg/dL 2.5-4.[address] [facility] Basophils/100 WBC (Bld) 0.7 % 0-1 [facility] Bilirubin [Mass/Vol] 0.40 mg/dL 0.20-1.00 [facility] Comment on above: For patients on eltr ombopag therapy, use of Dimension [place] TBIL is not recommended. Chloride [Moles/Vol] 105 mmol/L 98-107 [facility] Cholesterol [Mass/Vol] 202 mg/dL <200 [facility] Comment on above: <200 mg/dL Desirable 200-240 mg/dL Borderline >240 mg/dL High Risk Eosinophils/100 WBC (Bld) 1.6 % 0-5 [facility] Glucose [Mass/Vol] 107 mg/dL 74-106 [facility] Comment on above: Fasting Glucose resu lt from 100 to 125 mg/dL suggests IMPAIRED HOMEOSTASIS per A.D.A. criteria. Neutrophils (Bld) [#/Vol] 6.1 10*3/uL 2.0-7.7 [facility] Neutrophils/100 WBC (Bld) 75.1 % 47-70 [facility] Potassium [Moles/Vol] 4.6 mmol/L 3.5-5.1 [facility] Protein [Mass/Vol] 7.0 g/dL 6.4-8.2 [facility] Sodium [Moles/Vol] 137 mmol/L 136-145 [facility] Triglyceride [Mass/Vol] 136 mg/dL <199 [facility] Comment on above: The drugs N-Acetylcy steine and Metamizole may falsely depress this assay.Serum Triglycerides Reference Interval Normal <150 mg/dL Borderline high 150 - 199 mg/dL High 200 - 499 mg/dL Very High > or = 500 mg/dL WBC (Bld) [#/Vol] 8.1 10*3/uL 4.4-11.0 [facility] Bilirubin Test strip Ql (U)O rdered By: Dr. Viveros on 06-13-2022 Bilirubin Ql (U) Negative Negative [facility] Blood erythrocytes count (nu mber/volume)Ordered By: Dr. Viveros on 06-13-2022 RBC (Bld) [#/Vol] 3.78 10*6/uL 4.2-5.[address] [facility] Blood hemoglobin measurement (mass/volume)Ordered By: Dr. Viveros on 06-13-2022 Hemoglobin (Bld) [Mass/Vol] 12.3 g/dL 12.0-15.0 [facility] Blood lymphocytes/100 leukoc ytesOrdered By: Dr. Viveros on 06-13-2022 Lymphocytes/100 WBC (Bld) 16.0 % 19-41 [facility] Blood monocytes/100 leukocyt esOrdered By: Dr. Viveros on 06-13-2022 Monocytes/100 WBC (Bld) 6.4 % 0-10 [facility] Blood platelet mean volumeOr dered By: Dr. Viveros on 06-13-2022 Platelet mean volume (Bld) [Entitic vol] 9.7 fL 6.2-12.0 [facility] Determination of erythrocyte mean corpuscular volume (MCV)Ordered By: Dr. Viveros on 06-13-2022 MCV (RBC) [Entitic vol] 99.2 fL 81-99 [facility] Hematocrit Auto (Bld) [Volum e fraction]Ordered By: Dr. Viveros on 06-13-2022 Hematocrit (Bld) [Volume fraction] 37.5 % 37-47 [facility] Ketones Test strip Ql (U)Ord ered By: Dr. Viveros on 06-13-2022 Ketones Ql (U) Negative Negative [facility] Laboratory - Chemistry and C hemistry - challengeOrdered By: Dr. Viveros on 06-13-2022 ALP [Catalytic activity/Vol] 74 U/L 45-117 [facility] ALT [Catalytic activity/Vol] 35 U/L 13-56 [facility] CO2 [Moles/Vol] 25.0 mmol/L 21.0-32.0 [facility] Free T4 [Mass/Vol] 0.90 ng/dL 0.76-1.46 [facility] Globulin (S) [Mass/Vol] 3.3 g/dL 2.2-4.2 [facility] Magnesium [Mass/Vol] 2.0 mg/dL 1.6-2.6 [facility] Urea nitrogen/Creatinine [Mass ratio] 15.4 mg/mg 10-20 [facility] Laboratory - Hematology and Cell countsOrdered By: Dr. Viveros on 06-13-2022 Erythrocyte distribution width (RBC) [Entitic vol] 44.6 fL 35.1-43.9 [facility] Erythrocyte distribution width (RBC) [Ratio] 12.5 % 11.6-14.6 [facility] Immature granulocytes/100 WBC (Bld) 0.200 % 0.0-0.9 [facility] Comment on above: IG% - Immature Granu locytes (promyelocytes, myelocytes and metamyelocytes) > 1% indicates that a LEFT SHIFT is Present. MCH (RBC) [Entitic mass] 32.5 pg 27.0-32.0 [facility] Nucleated RBC/100 WBC (Bld) [Ratio] 0 % 0-5 [facility] MCHC Auto (RBC) [Mass/Vol]Or dered By: Dr. Viveros on 06-13-2022 MCHC (RBC) [Mass/Vol] 32.8 g/dL 32-36 [facility] Mucus LM Ql (Urine sed)Order ed By: Dr. Viveros on 06-13-2022 Mucus Ql (Urine sed) 0 SEEN /hpf [facility] Nitrite Test strip Ql (U)Ord ered By: Dr. Viveros on 06-13-2022 Nitrite Ql (U) Negative Negative [facility] No Panel InformationOrdered By: Dr. Viveros on 06-13-2022 Estimated GFR (MDRD) Amer 48 mL/min >60 [facility] Comment on above: GFR Calc Estimated GFR (MDRD) Non-Af Amer 39 mL/min >60 [facility] Comment on above: Non- GFR Calc Parathyroid Hormone (Intact) 94.9 pg/mL 18.4-80.1 [facility] Thyroid Stimulating Hormone (TSH) 13.60 uIU/mL 0.358-3.74 [facility] Platelets bldOrdered By: Dr. Viveros on 06-13-2022 Platelets (Bld) [#/Vol] 244 10*3/uL 150-450 [facility] Protein Test strip Ql (U)Ord ered By: Dr. Viveros on 06-13-2022 Protein Ql (U) Negative Negative [facility] Serum or plasma albumin benigno urement (mass/volume)Ordered By: Dr. Viveros on 06-13-2022 Albumin [Mass/Vol] 3.7 g/dL 3.2-5.0 [facility] Serum or plasma albumin/glob ulin mass ratioOrdered By: Dr. Viveros on 06-13-2022 Albumin/Globulin [Mass ratio] 1.1 {ratio} 0.9-2.4 [facility] Serum or plasma calcium benigno urement (mass/volume)Ordered By: Dr. Viveros on 06-13-2022 Calcium [Mass/Vol] 9.2 mg/dL 8.5-10.1 [facility] Serum or plasma cholesterol in HDL measurement (mass/volume)Ordered By: Dr. Viveros on 06-13-2022 Cholesterol in HDL [Mass/Vol] 54 mg/dL >40 [facility] Comment on above: The drugs N-Acetylcy steine and Metamizole may falsely depress this assay. Reference Range HDL <40 mg/dL Low HDL Cholesterol HDL >or= 60 mg/dL High HDL Cholesterol Serum or plasma cholesterol in VLDL measurement (mass/volume)Ordered By: Dr. Viveros on 06-13-2022 Cholesterol in VLDL [Mass/Vol] 27 mg/dL 5-40 [facility] Serum or plasma creatinine m easurement (mass/volume)Ordered By: Dr. Viveros on 06-13-2022 Creatinine [Mass/Vol] 1.36 mg/dL 0.55-1.02 [facility] Comment on above: The validity of the calculated GFR & GFRAA in patients over 70 years has not been determined. Clinical correlation is essential. Serum or plasma low density lipoprotein (LDL) cholesterol measurement (mass/volume)Ordered By: Dr. Viveros on 06-13-2022 Cholesterol in LDL [Mass/Vol] 121 mg/dL 0-130 [facility] Serum or plasma urea nitroge n measurement (mass/volume)Ordered By: Dr. iVveros on 06-13-2022 Urea nitrogen [Mass/Vol] 21 mg/dL 7-18 [facility] Squamous epithelial cells de tection in urine sediment by light microscopyOrdered By: Dr. Viveros on 06-13-2022 Epithelial cells.squamous LM Ql (Urine sed) 0-5 SEEN /hpf 5-10 [facility] Thin prep Papanicolaou smear with manual screeningOrdered By: Dr. Viveros on 06-13-2022 Thin prep Papanicolaou smear with manual screening 36 U/L 15-37 [facility] Thin prep Papanicolaou smear with manual screening 7 5-15 [facility] Urine blood detectionOrdered By: Dr. Viveros on 06-13-2022 RBC Ql (U) Negative Negative [facility] RBC Ql (U) 0 SEEN /hpf 0-5 [facility] Urine clarityOrdered By: Dr. Viveros on 06-13-2022 Clarity (U) Clear Clear [facility] Urine color determinationOrd ered By: Dr. Viveros on 06-13-2022 Color (U) Yellow Yellow [facility] Urine creatinine measurement (mass/volume)Ordered By: Dr. Viveros on 06-13-2022 Creatinine (U) [Mass/Vol] 44.60 mg/dL NO RANGE EST. [facility] Urine glucose detectionOrder ed By: Dr. Viveros on 06-13-2022 Glucose Ql (U) Normal mg/dl Normal [facility] Urine leukocyte esterase det ection by dipstickOrdered By: Dr. Viveros on 06-13-2022 Leukocyte esterase Test strip Ql (U) Negative Negative [facility] Urine pHOrdered By: Dr. Dewey andino on 06-13-2022 pH (U) 7.0 [pH] 5.0 - 8.0 [facility] Urine protein measurement (m ass/volume)Ordered By: Dr. Viveros on 06-13-2022 Protein (U) [Mass/Vol] 6.8 mg/dL 0.0-11.8 [facility] Urine protein/creatinine mas s ratioOrdered By: Dr. Viveros on 06-13-2022 Protein/Creatinine (U) [Mass ratio] 152 mg/g CRE 0-200 [facility] Urine sediment bacteria coun t by microscopy (number/high power field)Ordered By: Dr. Viveros on 06-13-2022 Bacteria LM.HPF (Urine sed) [#/Area] 0 /[HPF] None Seen [facility] Urine specific gravity measu rementOrdered By: Dr. Viveros on 06-13-2022 Specific gravity (U) [Rel density] 1.015 1.002-1.03 0 [facility] Urobilinogen Auto test strip Ql (U)Ordered By: Dr. Viveros on 06-13-2022 Urobilinogen Ql (U) Normal mg/dl Normal [facility] No Panel InformationOrdered By: Dr. Johnson on 05-30-2022 Estimated GFR (MDRD) Amer 54 mL/min >60 [facility] Comment on above: GFR Calc Estimated GFR (MDRD) Non-Af Amer 45 mL/min >60 [facility] Comment on above: Non- GFR Calc Serum or plasma creatinine m easurement (mass/volume)Ordered By: Dr. Johnson on 05-30-2022 Creatinine [Mass/Vol] 1.21 mg/dL 0.55-1.02 [facility] Comment on above: The validity of the calculated GFR & GFRAA in patients over 70 years has not been determined. Clinical correlation is essential. Absolute lymphocyte counton 12-06-2021 Lymphocytes Auto (Unsp spec) [#/Vol] 0.77 10*3/uL 0.83-4.51 [facility] Work Phone: Basophil percentageon 2021 Basophil percentage 2.0 mg/dL 2.5-4.[address] [facility] Work Phone: Basophils/100 WBC (Bld) 0.1 % 0-1 [facility] Work Phone: Chloride [Moles/Vol] 101 mmol/L 98-107 [facility] Work Phone: Eosinophils/100 WBC (Bld) 0.5 % 0-5 [facility] Work Phone: Glucose [Mass/Vol] 118 mg/dL 74-106 [facility] Work Phone: Comment on above: Fasting Glucose resu lt from 100 to 125 mg/dL suggests IMPAIRED HOMEOSTASIS per A.D.A. criteria. Neutrophils (Bld) [#/Vol] 20.3 10*3/uL 2.0-7.7 [facility] Work Phone: Neutrophils/100 WBC (Bld) 90.8 % 47-70 [facility] Work Phone: Potassium [Moles/Vol] 4.2 mmol/L 3.5-5.1 [facility] Work Phone: Sodium [Moles/Vol] 136 mmol/L 136-145 [facility] Work Phone: WBC (Bld) [#/Vol] 22.3 10*3/uL 4.4-11.[address] [facility] Work Phone: Blood erythrocytes count (nu mber/volume)on 12-06-2021 RBC (Bld) [#/Vol] 3.30 10*6/uL 4.2-5.[address] [facility] Work Phone: Blood hemoglobin measurement (mass/volume)on 12-06-2021 Hemoglobin (Bld) [Mass/Vol] 11.2 g/dL 12.0-15.0 [facility] Work Phone: Blood lymphocytes/100 leukoc yteson 12-06-2021 Lymphocytes/100 WBC (Bld) 3.5 % 19-41 [facility] Work Phone: Blood monocytes/100 leukocyt eson 12-06-2021 Monocytes/100 WBC (Bld) 3.1 % 0-10 [facility] Work Phone: Blood platelet adequacy dete ction by light microscopyon 12-06-2021 Platelets LM Ql (Bld) ADEQUATE ADEQ [facility] Work Phone: Blood platelet mean volumeon 12-06-2021 Platelet mean volume (Bld) [Entitic vol] 9.3 fL 6.2-12.0 [facility] Work Phone: Determination of erythrocyte mean corpuscular volume (MCV)on 12-06-2021 MCV (RBC) [Entitic vol] 98.2 fL 81-99 [facility] Work Phone: Hematocrit Auto (Bld) [Volum e fraction]on 12-06-2021 Hematocrit (Bld) [Volume fraction] 32.4 % 37-47 [facility] Work Phone: Laboratory - Chemistry and C hemistry - challengeon 12-06-2021 CO2 [Moles/Vol] 25.0 mmol/L 21.0-32.0 [facility] Work Phone: Magnesium [Mass/Vol] 1.9 mg/dL 1.6-2.6 [facility] Work Phone: Urea nitrogen/Creatinine [Mass ratio] 23.5 mg/mg - [facility] Work Phone: Laboratory - Hematology and Cell countson 12-06-2021 Erythrocyte distribution width (RBC) [Entitic vol] 46.6 fL 35.1-43.9 [facility] Work Phone: Erythrocyte distribution width (RBC) [Ratio] 13.0 % 11.6-14.6 [facility] Work Phone: Immature granulocytes/100 WBC (Bld) 2.000 % 0.0-0.9 [facility] Work Phone: Comment on above: IG% - Immature Granu locytes (promyelocytes, myelocytes and metamyelocytes) > 1% indicates that a LEFT SHIFT is Present. MCH (RBC) [Entitic mass] 33.9 pg 27.0-32.0 [facility] Work Phone: Nucleated RBC/100 WBC (Bld) [Ratio] 0 % 0-5 [facility] Work Phone: MCHC Auto (RBC) [Mass/Vol]on 12-06-2021 MCHC (RBC) [Mass/Vol] 34.6 g/dL 32-36 [facility] Work Phone: No Panel Informationon 12-06 Estimated Creatinine Clearance Calc 32.77 ml/min [facility] Work Phone: Estimated GFR (MDRD) Amer 58 mL/min >60 [facility] Work Phone: Comment on above: GFR Calc Estimated GFR (MDRD) Non-Af Amer 48 mL/min >60 [facility] Work Phone: Comment on above: Non- GFR Calc Platelets bldon 12-06-2021 Platelets (Bld) [#/Vol] 249 10*3/uL 150-450 [facility] Work Phone: RBC morphologyon 12-06-2021 RBC morphology finding Nom (Bld) NORM C+C NORMAL NORM C&C [facility] Work Phone: Serum or plasma calcium benigno urement (mass/volume)on 12-06-2021 Calcium [Mass/Vol] 8.8 mg/dL 8.5-10.1 [facility] Work Phone: Serum or plasma creatinine m easurement (mass/volume)on 12-06-2021 Creatinine [Mass/Vol] 1.15 mg/dL 0.55-1.02 [facility] Work Phone: Comment on above: The validity of the calculated GFR & GFRAA in patients over 70 years has not been determined. Clinical correlation is essential. Serum or plasma urea nitroge n measurement (mass/volume)on 12-06-2021 Urea nitrogen [Mass/Vol] 27 mg/dL 7-18 [facility] Work Phone: Thin prep Papanicolaou smear with manual screeningon 12-06-2021 Thin prep Papanicolaou smear with manual screening 10 5-15 [facility] Work Phone: Macrocytes detectionon 12-05 [facility]Bld) [facility]: No Panel Informationon 12-05 Thyroid Stimulating Hormone (TSH) 1.87 uIU/mL 0.358-3.74 [facility] Work Phone: Absolute lymphocyte counton 12-04-2021 Lymphocytes Auto (Unsp spec) [#/Vol] 0.23 10*3/uL 0.83-4.51 [facility] Work Phone: Basophil percentageon 2021 Basophil percentage 5-10 SEEN /hpf 0-5 [facility] Work Phone: Basophils/100 WBC (Bld) 0.2 % 0-1 [facility] Work Phone: Chloride [Moles/Vol] 102 mmol/L 98-107 [facility] Work Phone: Eosinophils/100 WBC (Bld) 0.0 % 0-5 [facility] Work Phone: Glucose [Mass/Vol] 125 mg/dL 74-106 [facility] Work Phone: Comment on above: Fasting Glucose resu lt from 100 to 125 mg/dL suggests IMPAIRED HOMEOSTASIS per A.D.A. criteria. Lactate [Moles/Vol] 1.9 mmol/L 0.4-2.[address] [facility] Work Phone: Neutrophils (Bld) [#/Vol] 22.9 10*3/uL 2.0-7.7 [facility] Work Phone: Neutrophils/100 WBC (Bld) 94.4 % 47-70 [facility] Work Phone: Potassium [Moles/Vol] 4.3 mmol/L 3.5-5.1 [facility] Work Phone: Sodium [Moles/Vol] 137 mmol/L 136-145 [facility] Work Phone: WBC (Bld) [#/Vol] 24.2 10*3/uL 4.4-11.[address] [facility] Work Phone: Bilirubin Test strip Ql (U)o n 12-04-2021 Bilirubin Ql (U) Negative Negative [facility] Work Phone: Blood erythrocytes count (nu mber/volume)on 12-04-2021 RBC (Bld) [#/Vol] 3.74 10*6/uL 4.2-5.[address] [facility] Work Phone: Blood hemoglobin measurement (mass/volume)on 12-04-2021 Hemoglobin (Bld) [Mass/Vol] 12.5 g/dL 12.0-15.0 [facility] Work Phone: Blood lymphocytes/100 leukoc yteson 12-04-2021 Lymphocytes/100 WBC (Bld) 1.0 % 19-41 [facility] Work Phone: Blood manual differential co mment interpretation (narrative result)on 12-04-2021 Manual differential comment Daniel (Bld) [Interp] SCANNED [facility] Work Phone: Comment on above: NEUTROPHILIA NOTEDLY MPHOPENIA NOTED Blood monocytes/100 leukocyt eson 12-04-2021 Monocytes/100 WBC (Bld) 1.8 % 0-10 [facility] Work Phone: Blood platelet mean volumeon 12-04-2021 Platelet mean volume (Bld) [Entitic vol] 9.2 fL 6.2-12.0 [facility] Work Phone: Determination of erythrocyte mean corpuscular volume (MCV)on 12-04-2021 MCV (RBC) [Entitic vol] 99.7 fL 81-99 [facility] Work Phone: Hematocrit Auto (Bld) [Volum e fraction]on 12-04-2021 Hematocrit (Bld) [Volume fraction] 37.3 % 37-47 [facility] Work Phone: Ketones Test strip Ql (U)on 12-04-2021 Ketones Ql (U) 5 mg/dl Negative [facility] Work Phone: Laboratory - Chemistry and C hemistry - challengeon 12-04-2021 CO2 [Moles/Vol] 25.0 mmol/L 21.0-32.0 [facility] Work Phone: Urea nitrogen/Creatinine [Mass ratio] 12.8 mg/mg 10-20 [facility] Work Phone: Laboratory - Hematology and Cell countson 12-04-2021 Erythrocyte distribution width (RBC) [Entitic vol] 46.8 fL 35.1-43.9 [facility] Work Phone: Erythrocyte distribution width (RBC) [Ratio] 12.9 % 11.6-14.6 [facility] Work Phone: Immature granulocytes/100 WBC (Bld) 2.600 % 0.0-0.9 [facility] Work Phone: Comment on above: IG% - Immature Granu locytes (promyelocytes, myelocytes and metamyelocytes) > 1% indicates that a LEFT SHIFT is Present. MCH (RBC) [Entitic mass] 33.4 pg 27.0-32.0 [facility] Work Phone: Nucleated RBC/100 WBC (Bld) [Ratio] 0 % 0-5 [facility] Work Phone: MCHC Auto (RBC) [Mass/Vol]on 12-04-2021 MCHC (RBC) [Mass/Vol] 33.5 g/dL 32-36 [facility] Work Phone: Mucus LM Ql (Urine sed)on Mucus Ql (Urine sed) 0 SEEN /hpf [facility] Work Phone: Nitrite Test strip Ql (U)on 12-04-2021 Nitrite Ql (U) Negative Negative [facility] Work Phone: No Panel Informationon 12-04 Estimated Creatinine Clearance Calc 25.46 ml/min [facility] Work Phone: Estimated GFR (MDRD) Amer 43 mL/min >60 [facility] Work Phone: Comment on above: GFR Calc Estimated GFR (MDRD) Non-Af Amer 36 mL/min >60 [facility] Work Phone: Comment on above: Non- GFR Calc Platelets bldon 12-04-2021 Platelets (Bld) [#/Vol] 283 10*3/uL 150-450 [facility] Work Phone: Protein Test strip Ql (U)on 12-04-2021 Protein Ql (U) 30 mg/dl Negative [facility] Work Phone: Serum or plasma calcium benigno urement (mass/volume)on 12-04-2021 Calcium [Mass/Vol] 9.2 mg/dL 8.5-10.1 [facility] Work Phone: Serum or plasma creatinine m easurement (mass/volume)on 12-04-2021 Creatinine [Mass/Vol] 1.48 mg/dL 0.55-1.02 [facility] Work Phone: Comment on above: The validity of the calculated GFR & GFRAA in patients over 70 years has not been determined. Clinical correlation is essential. Serum or plasma urea nitroge n measurement (mass/volume)on 12-04-2021 Urea nitrogen [Mass/Vol] 19 mg/dL 10-03 [facility] Work Phone: Squamous epithelial cells de tection in urine sediment by light microscopyon 12-04-2021 Epithelial cells.squamous LM Ql (Urine sed) 0-5 SEEN /hpf 5-10 [facility] Work Phone: Thin prep Papanicolaou smear with manual screeningon 12-04-2021 Thin prep Papanicolaou smear with manual screening 10 5-15 [facility] Work Phone: Urine blood detectionon 11-17 RBC Ql (U) Negative Negative [facility] Work Phone: RBC Ql (U) 0 SEEN /hpf 0-5 [facility] Work Phone: Urine clarityon 12-04-2021 Clarity (U) Clear Clear [facility] Work Phone: Urine color determinationon 12-04-2021 Color (U) Yellow Yellow [facility] Work Phone: Urine glucose detectionon Glucose Ql (U) Normal mg/dl Normal [facility] Work Phone: Urine leukocyte esterase det ection by dipstickon 12-04-2021 Leukocyte esterase Test strip Ql (U) 25 /ul Negative [facility] Work Phone: Urine pHon 12-04-2021 pH (U) 6.5 [pH] 5.0 - 8.0 [facility] Work Phone: Urine sediment bacteria coun t by microscopy (number/high power field)on 12-04-2021 Bacteria LM.HPF (Urine sed) [#/Area] 1 /[HPF] None Seen [facility] Work Phone: Urine specific gravity measu rementon 12-04-2021 Specific gravity (U) [Rel density] 1.010 1.002-1.03 0 [facility] Work Phone: Urobilinogen Auto test strip Ql (U)on 12-04-2021 Urobilinogen Ql (U) 1 mg/dl Normal [facility] Work Phone: Absolute lymphocyte counton 11-27-2021 Lymphocytes Auto (Unsp spec) [#/Vol] 0.73 10*3/uL 0.83-4.51 [facility] Work Phone: Basophil percentageon 2021 Basophil percentage 0-5 SEEN /hpf 0-5 [facility] Work Phone: Basophils/100 WBC (Bld) 0.1 % 0-1 [facility] Work Phone: Chloride [Moles/Vol] 101 mmol/L 98-107 [facility] Work Phone: Eosinophils/100 WBC (Bld) 0.1 % 0-5 [facility] Work Phone: Glucose [Mass/Vol] 181 mg/dL 74-106 [facility] Work Phone: Comment on above: Fasting Glucose resu lt greater than or equal to 126 mg/dL suggests DIABETES MELLITUS per A.D.A. criteria. Neutrophils (Bld) [#/Vol] 13.4 10*3/uL 2.0-7.7 [facility] Work Phone: Neutrophils/100 WBC (Bld) 88.7 % 47-70 [facility] Work Phone: Potassium [Moles/Vol] 4.1 mmol/L 3.5-5.1 [facility] Work Phone: Sodium [Moles/Vol] 134 mmol/L 136-[facility]: WBC (Bld) [#/Vol] 15.1 10*3/uL 4.4-11.[address] [facility] Work Phone: Bilirubin Test strip Ql (U)o n 11-27-2021 Bilirubin Ql (U) Negative Negative [facility] Work Phone: Blood erythrocytes count (nu mber/volume)on 11-27-2021 RBC (Bld) [#/Vol] 3.64 10*6/uL 4.2-5.[address] [facility] Work Phone: Blood hemoglobin measurement (mass/volume)on 11-27-2021 Hemoglobin (Bld) [Mass/Vol] 12.4 g/dL 12.0-15.0 [facility] Work Phone: Blood lymphocytes/100 leukoc yteson 11-27-2021 Lymphocytes/100 WBC (Bld) 4.8 % 19-41 [facility] Work Phone: Blood monocytes/100 leukocyt eson 11-27-2021 Monocytes/100 WBC (Bld) 5.8 % 0-10 [facility] Work Phone: Blood platelet mean volumeon 11-27-2021 Platelet mean volume (Bld) [Entitic vol] 9.3 fL 6.2-12.0 [facility] Work Phone: Determination of erythrocyte mean corpuscular volume (MCV)on 11-27-2021 MCV (RBC) [Entitic vol] 97.5 fL 81-99 [facility] Work Phone: Hematocrit Auto (Bld) [Volum e fraction]on 11-27-2021 Hematocrit (Bld) [Volume fraction] 35.5 % 37-47 [facility] Work Phone: Ketones Test strip Ql (U)on 11-27-2021 Ketones Ql (U) Negative Negative [facility] Work Phone: Laboratory - Chemistry and C hemistry - challengeon 11-27-2021 CO2 [Moles/Vol] 25.0 mmol/L 21.0-32.0 [facility] Work Phone: Urea nitrogen/Creatinine [Mass ratio] 16.0 mg/mg 10-20 [facility] Work Phone: Laboratory - Hematology and Cell countson 11-27-2021 Erythrocyte distribution width (RBC) [Entitic vol] 45.6 fL 35.1-43.9 [facility] Work Phone: Erythrocyte distribution width (RBC) [Ratio] 12.7 % 11.6-14.6 [facility] Work Phone: Immature granulocytes/100 WBC (Bld) 0.500 % 0.0-0.9 [facility] Work Phone: Comment on above: IG% - Immature Granu locytes (promyelocytes, myelocytes and metamyelocytes) > 1% indicates that a LEFT SHIFT is Present. MCH (RBC) [Entitic mass] 34.1 pg 27.0-32.0 [facility] Work Phone: Nucleated RBC/100 WBC (Bld) [Ratio] 0 % 0-5 [facility] Work Phone: MCHC Auto (RBC) [Mass/Vol]on 11-27-2021 MCHC (RBC) [Mass/Vol] 34.9 g/dL 32-36 [facility] Work Phone: Mucus LM Ql (Urine sed)on Mucus Ql (Urine sed) 0 SEEN /hpf [facility] Work Phone: Nitrite Test strip Ql (U)on 11-27-2021 Nitrite Ql (U) Negative Negative [facility] Work Phone: No Panel Informationon 11-27 Estimated Creatinine Clearance Calc 31.67 ml/min [facility] Work Phone: Estimated GFR (MDRD) Amer 56 mL/min >60 [facility] Work Phone: Comment on above: GFR Calc Estimated GFR (MDRD) Non-Af Amer 46 mL/min >60 [facility] Work Phone: Comment on above: Non- GFR Calc Troponin I High Sensitivity 7 pg/mL 3.0-54.0 [facility] Work Phone: Comment on above: Please Note: New Joselyn t Units and Gender Specific Reference Ranges. For more information see Policy Stat Procedure [place] High Sensitivity Troponin (TNIH) and attachments. Platelets bldon 11-27-2021 Platelets (Bld) [#/Vol] 235 10*3/uL 150-450 [facility] Work Phone: Protein Test strip Ql (U)on 11-27-2021 Protein Ql (U) 15 mg/dl Negative [facility] Work Phone: Serum or plasma calcium benigno urement (mass/volume)on 11-27-2021 Calcium [Mass/Vol] 9.1 mg/dL 8.5-10.1 [facility] Work Phone: Serum or plasma creatinine m easurement (mass/volume)on 11-27-2021 Creatinine [Mass/Vol] 1.19 mg/dL 0.55-1.02 [facility] Work Phone: Comment on above: The validity of the calculated GFR & GFRAA in patients over 70 years has not been determined. Clinical correlation is essential. Serum or plasma urea nitroge n measurement (mass/volume)on 11-27-2021 Urea nitrogen [Mass/Vol] 19 mg/dL 7-18 [facility] Work Phone: Squamous epithelial cells de tection in urine sediment by light microscopyon 11-27-2021 Epithelial cells.squamous LM Ql (Urine sed) 0 SEEN /hpf 5-10 [facility] Work Phone: Thin prep Papanicolaou smear with manual screeningon 11-27-2021 Thin prep Papanicolaou smear with manual screening 8 5-15 [facility] Work Phone: Urine blood detectionon 11-17 RBC Ql (U) Negative Negative [facility] Work Phone: RBC Ql (U) 0 SEEN /hpf 0-5 [facility] Work Phone: Urine clarityon 11-27-2021 Clarity (U) Clear Clear [facility] Work Phone: Urine color determinationon 11-27-2021 Color (U) Yellow Yellow [facility] Work Phone: Urine glucose detectionon Glucose Ql (U) Normal mg/dl Normal [facility] Work Phone: Urine leukocyte esterase det ection by dipstickon 11-27-2021 Leukocyte esterase Test strip Ql (U) 25 /ul Negative [facility] Work Phone: Urine pHon 11-27-2021 pH (U) 6.5 [pH] 5.0 - 8.0 [facility] Work Phone: Urine sediment bacteria coun t by microscopy (number/high power field)on 11-27-2021 Bacteria LM.HPF (Urine sed) [#/Area] 1 /[HPF] None Seen [facility] Work Phone: Urine specific gravity measu rementon 11-27-2021 Specific gravity (U) [Rel density] 1.010 1.002-1.03 0 [facility] Work Phone: Urobilinogen Auto test strip Ql (U)on 11-27-2021 Urobilinogen Ql (U) 1 mg/dl Normal [facility] Work Phone: Absolute lymphocyte counton 11-15-2021 Lymphocytes Auto (Unsp spec) [#/Vol] 0.91 10*3/uL 0.83-4.51 [facility] Work Phone: Basophil percentageon 2021 Basophil percentage 25-50 SEEN /hpf 0-5 [facility] Work Phone: Basophil percentage 3.1 mg/dL 2.5-4.[address] [facility] Work Phone: Basophils/100 WBC (Bld) 0.4 % 0-1 [facility] Work Phone: Bilirubin [Mass/Vol] 0.60 mg/dL 0.20-1.00 [facility] Work Phone: Comment on above: For patients on eltr ombopag therapy, use of Dimension [place] TBIL is not recommended. Chloride [Moles/Vol] 101 mmol/L 98-107 [facility] Work Phone: Eosinophils/100 WBC (Bld) 0.7 % 0-5 [facility] Work Phone: Glucose [Mass/Vol] 89 mg/dL 74-106 [facility] Work Phone: Neutrophils (Bld) [#/Vol] 5.4 10*3/uL 2.0-7.7 [facility] Work Phone: Neutrophils/100 WBC (Bld) 78.2 % 47-70 [facility] Work Phone: Potassium [Moles/Vol] 4.4 mmol/L 3.5-5.1 [facility] Work Phone: Protein [Mass/Vol] 7.0 g/dL 6.4-8.2 [facility] Work Phone: Sodium [Moles/Vol] 135 mmol/L 136-145 [facility] Work Phone: WBC (Bld) [#/Vol] 6.9 10*3/uL 4.4-11.0 [facility] Work Phone: Bilirubin Test strip Ql (U)o n 11-15-2021 Bilirubin Ql (U) Negative Negative [facility] Work Phone: Blood erythrocytes count (nu mber/volume)on 11-15-2021 RBC (Bld) [#/Vol] 3.77 10*6/uL 4.2-5.[address] [facility] Work Phone: Blood hemoglobin measurement (mass/volume)on 11-15-2021 Hemoglobin (Bld) [Mass/Vol] 12.6 g/dL 12.0-15.0 [facility] Work Phone: Blood lymphocytes/100 leukoc yteson 11-15-2021 Lymphocytes/100 WBC (Bld) 13.2 % 19-41 [facility] Work Phone: Blood monocytes/100 leukocyt eson 11-15-2021 Monocytes/100 WBC (Bld) 7.4 % 0-10 [facility] Work Phone: Blood platelet mean volumeon 11-15-2021 Platelet mean volume (Bld) [Entitic vol] 9.3 fL 6.2-12.0 [facility] Work Phone: Determination of erythrocyte mean corpuscular volume (MCV)on 11-15-2021 MCV (RBC) [Entitic vol] 98.1 fL 81-99 [facility] Work Phone: Hematocrit Auto (Bld) [Volum e fraction]on 11-15-2021 Hematocrit (Bld) [Volume fraction] 37.0 % 37-47 [facility] Work Phone: Ketones Test strip Ql (U)on 11-15-2021 Ketones Ql (U) Negative Negative [facility] Work Phone: Laboratory - Chemistry and C hemistry - challengeon 11-15-2021 ALP [Catalytic activity/Vol] 74 U/L 45-117 [facility] Work Phone: ALT [Catalytic activity/Vol] 42 U/L 13-56 [facility] Work Phone: CO2 [Moles/Vol] 26.0 mmol/L 21.0-32.0 [facility] Work Phone: Free T4 [Mass/Vol] 1.16 ng/dL 0.76-1.46 [facility] Work Phone: Globulin (S) [Mass/Vol] 3.5 g/dL 2.2-4.2 [facility] Work Phone: Magnesium [Mass/Vol] 1.7 mg/dL 1.6-2.6 [facility] Work Phone: Urea nitrogen/Creatinine [Mass ratio] 16.0 mg/mg 10-20 [facility] Work Phone: Laboratory - Hematology and Cell countson 11-15-2021 Erythrocyte distribution width (RBC) [Entitic vol] 45.4 fL 35.1-43.9 [facility] Work Phone: Erythrocyte distribution width (RBC) [Ratio] 12.6 % 11.6-14.6 [facility] Work Phone: Immature granulocytes/100 WBC (Bld) 0.100 % 0.0-0.9 [facility] Work Phone: Comment on above: IG% - Immature Granu locytes (promyelocytes, myelocytes and metamyelocytes) > 1% indicates that a LEFT SHIFT is Present. MCH (RBC) [Entitic mass] 33.4 pg 27.0-32.0 [facility] Work Phone: Nucleated RBC/100 WBC (Bld) [Ratio] 0 % 0-5 [facility] Work Phone: MCHC Auto (RBC) [Mass/Vol]on 11-15-2021 MCHC (RBC) [Mass/Vol] 34.1 g/dL 32-36 [facility] Work Phone: Mucus LM Ql (Urine sed)on Mucus Ql (Urine sed) 0 SEEN /hpf [facility] Work Phone: Nitrite Test strip Ql (U)on 11-15-2021 Nitrite Ql (U) Negative Negative [facility] Work Phone: No Panel Informationon 11-15 Estimated GFR (MDRD) Amer 45 mL/min >60 [facility] Work Phone: Comment on above: GFR Calc Estimated GFR (MDRD) Non-Af Amer 37 mL/min >60 [facility] Work Phone: Comment on above: Non- GFR Calc Parathyroid Hormone (Intact) 74.2 pg/mL 18.4-80.1 [facility] Work Phone: Thyroid Stimulating Hormone (TSH) 9.75 uIU/mL 0.358-3.74 [facility] Work Phone: Platelets bldon 11-15-2021 Platelets (Bld) [#/Vol] 255 10*3/uL 150-450 [facility] Work Phone: Protein Test strip Ql (U)on 11-15-2021 Protein Ql (U) Negative Negative [facility] Work Phone: Serum or plasma albumin benigno urement (mass/volume)on 11-15-2021 Albumin [Mass/Vol] 3.5 g/dL 3.2-5.0 [facility] Work Phone: Serum or plasma albumin/glob ulin mass ratioon 11-15-2021 Albumin/Globulin [Mass ratio] 1.0 {ratio} 0.9-2.4 [facility] Work Phone: Serum or plasma calcium benigno urement (mass/volume)on 11-15-2021 Calcium [Mass/Vol] 8.9 mg/dL 8.5-10.1 [facility] Work Phone: Serum or plasma creatinine m easurement (mass/volume)on 11-15-2021 Creatinine [Mass/Vol] 1.44 mg/dL 0.55-1.02 [facility] Work Phone: Comment on above: The validity of the calculated GFR & GFRAA in patients over 70 years has not been determined. Clinical correlation is essential. Serum or plasma urea nitroge n measurement (mass/volume)on 11-15-2021 Urea nitrogen [Mass/Vol] 23 mg/dL 7-18 [facility] Work Phone: Squamous epithelial cells de tection in urine sediment by light microscopyon 11-15-2021 Epithelial cells.squamous LM Ql (Urine sed) 5-10 SEEN /hpf 5-10 [facility] Work Phone: Thin prep Papanicolaou smear with manual screeningon 11-15-2021 Thin prep Papanicolaou smear with manual screening 38 U/L 15-37 [facility] Work Phone: Thin prep Papanicolaou smear with manual screening 8 5-15 [facility] Work Phone: Urine blood detectionon 08-3 0-2021 RBC Ql (U) 10 /ul Negative [facility] Work Phone: RBC Ql (U) 5-10 SEEN /hpf 0-5 [facility] Work Phone: Urine clarityon 11-15-2021 Clarity (U) Sl. Cloudy Clear [facility] Work Phone: Urine color determinationon 11-15-2021 Color (U) Yellow Yellow [facility] Work Phone: Urine creatinine measurement (mass/volume)on 11-15-2021 Creatinine (U) [Mass/Vol] 130.00 mg/dL NO RANGE EST. [facility] Work Phone: Urine glucose detectionon Glucose Ql (U) Normal mg/dl Normal [facility] Work Phone: Urine leukocyte esterase det ection by dipstickon 11-15-2021 Leukocyte esterase Test strip Ql (U) 500 /ul Negative [facility] Work Phone: Urine pHon 11-15-2021 pH (U) 6.5 [pH] 5.0 - 8.0 [facility] Work Phone: Urine protein measurement (m ass/volume)on 11-15-2021 Protein (U) [Mass/Vol] 19.6 mg/dL 0.0-11.8 [facility] Work Phone: Urine protein/creatinine mas s ratioon 11-15-2021 Protein/Creatinine (U) [Mass ratio] 151 mg/g CRE 0-200 [facility] Work Phone: Urine sediment bacteria coun t by microscopy (number/high power field)on 11-15-2021 Bacteria LM.HPF (Urine sed) [#/Area] 4 /[HPF] None Seen [facility] Work Phone: Urine specific gravity measu rementon 11-15-2021 Specific gravity (U) [Rel density] 1.010 1.002-1.03 0 [facility] Work Phone: Urobilinogen Auto test strip Ql (U)on 11-15-2021 Urobilinogen Ql (U) Normal mg/dl Normal [facility] Work Phone: Absolute lymphocyte counton 09-02-2021 Lymphocytes Auto (Unsp spec) [#/Vol] 1.21 10*3/uL 0.83-4.51 [facility] Work Phone: Basophil percentageon 2021 Basophils/100 WBC (Bld) 0.5 % 0-1 [facility] Work Phone: Bilirubin [Mass/Vol] 0.60 mg/dL 0.20-1.00 [facility] Work Phone: Comment on above: For patients on eltr ombopag therapy, use of Dimension [place] TBIL is not recommended. Chloride [Moles/Vol] 102 mmol/L 98-107 [facility] Work Phone: Cholesterol [Mass/Vol] 205 mg/dL <200 [facility] Work Phone: Comment on above: <200 mg/dL Desirable 200-240 mg/dL Borderline >240 mg/dL High Risk Eosinophils/100 WBC (Bld) 2.2 % 0-5 [facility] Work Phone: Glucose [Mass/Vol] 94 mg/dL 74-106 [facility] Work Phone: Neutrophils (Bld) [#/Vol] 5.8 10*3/uL 2.0-7.7 [facility] Work Phone: Neutrophils/100 WBC (Bld) 74.2 % 47-70 [facility] Work Phone: Potassium [Moles/Vol] 4.4 mmol/L 3.5-5.1 [facility] Work Phone: Protein [Mass/Vol] 7.3 g/dL 6.4-8.2 [facility] Work Phone: Sodium [Moles/Vol] 134 mmol/L 136-145 [facility] Work Phone: Triglyceride [Mass/Vol] 152 mg/dL <199 [facility] Work Phone: Comment on above: The drugs N-Acetylcy steine and Metamizole may falsely depress this assay.Serum Triglycerides Reference Interval Normal <150 mg/dL Borderline high 150 - 199 mg/dL High 200 - 499 mg/dL Very High > or = 500 mg/dL WBC (Bld) [#/Vol] 7.8 10*3/uL 4.4-11.0 [facility] Work Phone: Blood erythrocytes count (nu mber/volume)on 09-02-2021 RBC (Bld) [#/Vol] 3.89 10*6/uL 4.2-5.[address] [facility] Work Phone: Blood hemoglobin measurement (mass/volume)on 09-02-2021 Hemoglobin (Bld) [Mass/Vol] 12.8 g/dL 12.0-15.0 [facility] Work Phone: Blood lymphocytes/100 leukoc yteson 09-02-2021 Lymphocytes/100 WBC (Bld) 15.6 % 19-41 [facility] Work Phone: Blood monocytes/100 leukocyt eson 09-02-2021 Monocytes/100 WBC (Bld) 7.1 % 0-10 [facility] Work Phone: Blood platelet mean volumeon 09-02-2021 Platelet mean volume (Bld) [Entitic vol] 9.6 fL 6.2-12.0 [facility] Work Phone: Determination of erythrocyte mean corpuscular volume (MCV)on 09-02-2021 MCV (RBC) [Entitic vol] 97.7 fL 81-99 [facility] Work Phone: Hematocrit Auto (Bld) [Volum e fraction]on 09-02-2021 Hematocrit (Bld) [Volume fraction] 38.0 % 37-47 [facility] Work Phone: Laboratory - Chemistry and C hemistry - challengeon 09-02-2021 ALP [Catalytic activity/Vol] 79 U/L 45-117 [facility] Work Phone: ALT [Catalytic activity/Vol] 29 U/L 13-56 [facility] Work Phone: CO2 [Moles/Vol] 26.0 mmol/L 21.0-32.0 [facility] Work Phone: Free T4 [Mass/Vol] 1.65 ng/dL 0.76-1.46 [facility] Work Phone: Globulin (S) [Mass/Vol] 3.4 g/dL 2.2-4.2 [facility] Work Phone: Magnesium [Mass/Vol] 1.7 mg/dL 1.6-2.6 [facility] Work Phone: Urea nitrogen/Creatinine [Mass ratio] 17.4 mg/mg 10-20 [facility] Work Phone: Laboratory - Hematology and Cell countson 09-02-2021 Erythrocyte distribution width (RBC) [Entitic vol] 43.3 fL 35.1-43.9 [facility] Work Phone: Erythrocyte distribution width (RBC) [Ratio] 12.0 % 11.6-14.6 [facility] Work Phone: Immature granulocytes/100 WBC (Bld) 0.400 % 0.0-0.9 [facility] Work Phone: Comment on above: IG% - Immature Granu locytes (promyelocytes, myelocytes and metamyelocytes) > 1% indicates that a LEFT SHIFT is Present. MCH (RBC) [Entitic mass] 32.9 pg 27.0-32.0 [facility] Work Phone: Nucleated RBC/100 WBC (Bld) [Ratio] 0 % 0-5 [facility] Work Phone: MCHC Auto (RBC) [Mass/Vol]on 09-02-2021 MCHC (RBC) [Mass/Vol] 33.7 g/dL 32-36 [facility] Work Phone: No Panel Informationon 09-02 Estimated GFR (MDRD) Amer 58 mL/min >60 [facility] Work Phone: Comment on above: GFR Calc Estimated GFR (MDRD) Non-Af Amer 48 mL/min >60 [facility] Work Phone: Comment on above: Non- GFR Calc Thyroglobulin Antibody < 1.0 IU/mL 0.0-0.9 [facility] Work Phone: Comment on above: Thyroglobulin Antibo dy measured by Kiersten CoulterMethodology Thyroglobulin Level 37.1 ng/mL 1.5-38.[address] [facility] Work Phone: Comment on above: According to the [facility] [employer] of Clinical [employer],the reference interval for Thyroglobulin (TG) should berelated to euthyroid patients and not for patients whounderwent thyroidectomy. TG reference intervals for thesepatients depend on the residual mass of the thyroid tissueleft after surgery. Establishing a post-operative baselineis recommended. The assay limit of quantitation is 0.1ng/mLThyroglobulin measured by Kiersten Nunu [employer] Vitamin D 25-Hydroxy 39.1 ng/mL [facility] Work Phone: Comment on above: Vitamin D 25(OH) Sta tus Range Deficiency <20 ng/mL (50nmol/L) Insufficiency 20 - 30 ng/mL (50 - 75 nmol/L) Sufficiency 30 - 100 ng/mL (75 - 250 nmol/L) Toxicity >100 ng/mL (>250 nmol/L) Platelets bldon 09-02-2021 Platelets (Bld) [#/Vol] 236 10*3/uL 150-450 [facility] Work Phone: Serum or plasma albumin benigno urement (mass/volume)on 09-02-2021 Albumin [Mass/Vol] 3.9 g/dL 3.2-5.0 [facility] Work Phone: Serum or plasma albumin/glob ulin mass ratioon 09-02-2021 Albumin/Globulin [Mass ratio] 1.1 {ratio} 0.9-2.4 [facility] Work Phone: Serum or plasma calcium benigno urement (mass/volume)on 09-02-2021 Calcium [Mass/Vol] 9.4 mg/dL 8.5-10.1 [facility] Work Phone: Serum or plasma cholesterol in HDL measurement (mass/volume)on 09-02-2021 Cholesterol in HDL [Mass/Vol] 56 mg/dL >40 [facility] Work Phone: Comment on above: The drugs N-Acetylcy steine and Metamizole may falsely depress this assay. Reference Range HDL <40 mg/dL Low HDL Cholesterol HDL >or= 60 mg/dL High HDL Cholesterol Serum or plasma cholesterol in VLDL measurement (mass/volume)on 09-02-2021 Cholesterol in VLDL [Mass/Vol] 30 mg/dL 5-40 [facility] Work Phone: Serum or plasma creatinine m easurement (mass/volume)on 09-02-2021 Creatinine [Mass/Vol] 1.15 mg/dL 0.55-1.02 [facility] Work Phone: Comment on above: The validity of the calculated GFR & GFRAA in patients over 70 years has not been determined. Clinical correlation is essential. Serum or plasma low density lipoprotein (LDL) cholesterol measurement (mass/volume)on 09-02-2021 Cholesterol in LDL [Mass/Vol] 119 mg/dL 0-130 [facility] Work Phone: Serum or plasma thyroperoxid ase antibody assay (units/volume)on 09-02-2021 TPO Ab Qn [IU]/mL 0-34 [facility] Work Phone: Comment on above: Performed at: [address] [id number] Director: Irvin Goins PhD, Phone: [phone] Serum or plasma urea nitroge n measurement (mass/volume)on 09-02-2021 Urea nitrogen [Mass/Vol] 20 mg/dL 7-18 [facility] Work Phone: Thin prep Papanicolaou smear with manual screeningon 09-02-2021 Thin prep Papanicolaou smear with manual screening 29 U/L 15-37 [facility] Work Phone: Thin prep Papanicolaou smear with manual screening 6 5-15 [facility] Work Phone: Basophil percentageon 2021 Bilirubin [Mass/Vol] 0.60 mg/dL 0.20-1.00 [facility] Work Phone: Comment on above: For patients on eltr ombopag therapy, use of Dimension [place] TBIL is not recommended. Chloride [Moles/Vol] 98 mmol/L 98-107 [facility] Work Phone: Glucose [Mass/Vol] 91 mg/dL 74-106 [facility] Work Phone: Potassium [Moles/Vol] 4.6 mmol/L 3.5-5.1 [facility] Work Phone: Protein [Mass/Vol] 7.7 g/dL 6.4-8.2 [facility] Work Phone: Sodium [Moles/Vol] 131 mmol/L 136-145 [facility] Work Phone: Direct bilirubinon 2 Bilirubin.direct [Mass/Vol] 0.17 mg/dL 0.00-0.30 [facility] Work Phone: Laboratory - Chemistry and C hemistry - challengeon 05-24-2021 ALP [Catalytic activity/Vol] 77 U/L 45-117 [facility] Work Phone: ALT [Catalytic activity/Vol] 31 U/L 13-56 [facility] Work Phone: CO2 [Moles/Vol] 29.0 mmol/L 21.0-32.0 [facility] Work Phone: Globulin (S) [Mass/Vol] 3.7 g/dL 2.2-4.2 [facility] Work Phone: T4 [Mass/Vol] 11.2 ug/dL 4.8-13.9 [facility] Work Phone: Urea nitrogen/Creatinine [Mass ratio] 23.7 mg/mg 10-20 [facility] Work Phone: No Panel Informationon 05-24 Estimated GFR (MDRD) Amer 50 mL/min >60 [facility] Work Phone: Comment on above: GFR Calc Estimated GFR (MDRD) Non-Af Amer 41 mL/min >60 [facility] Work Phone: Comment on above: Non- GFR Calc Thyroid Stimulating Hormone (TSH) 7.25 uIU/mL 0.358-3.74 [facility] Work Phone: Serum or plasma albumin benigno urement (mass/volume)on 05-24-2021 Albumin [Mass/Vol] 4.0 g/dL 3.2-5.0 [facility] Work Phone: Serum or plasma calcium benigno urement (mass/volume)on 05-24-2021 Calcium [Mass/Vol] 9.2 mg/dL 8.5-10.1 [facility] Work Phone: Serum or plasma creatinine m easurement (mass/volume)on 05-24-2021 Creatinine [Mass/Vol] 1.31 mg/dL 0.55-1.02 [facility] Work Phone: Comment on above: The validity of the calculated GFR & GFRAA in patients over 70 years has not been determined. Clinical correlation is essential. 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 [[id number]] Prescriptions as of 06/29/2020 Sig: CARBOXYMETHYL 0.5 [...] Status:Closed by YAIR RUELAS on 06/29/20 Normal [facility] Metabolic Panel, Basic (8004 [id number])Ordered By: Cashier Courtesy Booth on 01-21-2018 Calcium mass conc 9.6 mg/dL Normal 8.7-10.3 [facility] Work Phone: Comment on above: PATIENT NOT FASTINGP ERFORMED BY: CB [facility] [id number] [facility]EC[facility] [id number] Chloride molar conc 100 mmol/L Normal 96-106 [facility] Work Phone: Comment on above: PATIENT NOT FASTINGP ERFORMED BY: DAYDAY [facility] [id number]ann RoadDublin [place] [id number] CO2 molar conc 23 mmol/L Normal 20-29 [facility] Work Phone: Comment on above: PATIENT NOT FASTINGP ERFORMED BY: DAYDAY [facility] [id number] Vann RoadDublin [place] [id number] Creatinine mass conc 0.87 mg/dL Normal 0.57-1.00 [facility] Work Phone: Comment on above: PATIENT NOT FASTINGP ERFORMED BY: DAYDAY [facility] [id number] RoadHaywood Regional Medical Centerin [place] [id number] GFR/1.73 sq M predicted among blacks CKD-EPI vol rate/area (S/P/Bld) 73 mL/min/1.73 Normal [facility] Work Phone: Comment on above: PATIENT NOT FASTINGP ERFORMED BY: DAYDAY [facility] [id number] [address] RoadHaywood Regional Medical Centerin [place] [id number] GFR/1.73 sq M predicted among non-blacks CKD-EPI vol rate/area (S/P/Bld) 63 mL/min/1.73 Normal [facility] Work Phone: Comment on above: PATIENT NOT FASTINGP ERFORMED BY: DAYDAY [facility] [id number] [facility] [place] [id number] Glucose mass conc 86 mg/dL Normal 65-99 [facility] Work Phone: Comment on above: PATIENT NOT FASTINGP ERFORMED BY: DAYDAY [facility] [id number] Roadblin [place] [id number] Potassium molar conc 4.9 mmol/L Normal 3.5-5.2 [facility] Work Phone: Comment on above: PATIENT NOT FASTINGP ERFORMED BY: DAYDAY [facility] [id number] Vann RoadDublin [place] [id number] Sodium molar conc 138 mmol/L Normal 134-144 [facility] Work Phone: Comment on above: PATIENT NOT FASTINGP ERFORMED BY: [facility] [id number] [facility] [id number] Urea nitrogen mass conc 15 mg/dL Normal 8-27 [facility] Work Phone: Comment on above: PATIENT NOT FASTINGP ERFORMED BY: [facility] [id number] [facility] [id number] Urea nitrogen/Creatinine mass ratio 17 mg/mg Normal 12-28 [facility] Work Phone: Comment on above: PATIENT NOT FASTINGP ERFORMED BY: [facility] [id number] [facility] [id number] Basic Metabolic Profile (BMP )Ordered By: Cashier Courtesy Booth on 09-05-2017 Basic metabolic 2000 panel 71 mL/min Normal [facility] Work Phone: Comment on above: GFR Calc Comments: for heart cathComments: for [facility] [address] [place], [place], [id number] Basic metabolic 2000 panel 59 mL/min Abnormal [facility] Work Phone: Comment on above: Non- GFR Calc Comments: for heart cathComments: for [facility] [address] [place], [place], [phone] Basic metabolic 2000 panel 0.97 mg/dL Normal 0.55-1.02 [facility] Work Phone: Comment on above: The validity of the calculated GFR AND GFRAA in patients over70 years has not been determined. Clinical correlation isessential. Comments: for heart cathComments: for [facility] [address] [place], [place], [phone] Basic metabolic 2000 panel 18 mg/dL Normal 7-18 [facility] Work Phone: Comment on above: Comments: for heart cathComments: for [facility] [address] [place], [place], [id number] Basic metabolic 2000 panel 4.4 mmol/L Normal 3.5-5.1 [facility] Work Phone: Comment on above: Comments: for heart cathComments: for [facility] [address] [place], [place], [id number] Basic metabolic 2000 panel 7 1 Normal 5-15 [facility] Work Phone: Comment on above: Comments: for heart cathComments: for [facility] [address] [place], [place], [id number] Basic metabolic 2000 panel 88 mg/dL Normal 74-106 [facility] Work Phone: Comment on above: Please note revised GLUCOSE reference range tcerqpbhm77/02/2018. Comments: for heart cathComments: for [facility] [address] [place], [place], [id number] Basic metabolic 2000 panel 104 mmol/L Normal 98-107 [facility] Work Phone: Comment on above: Comments: for heart cathComments: for [facility] [address] [place], [place], [id number] Basic metabolic 2000 panel 29.0 mmol/L Normal 21.0-32.0 [facility] Work Phone: Comment on above: Comments: for heart cathComments: for [facility] [address] [place], [address] Basic metabolic 2000 panel 140 mmol/L Normal 136-145 [facility] Work Phone: Comment on above: Comments: for heart cathComments: for [facility] [address] [place], [address] Basic metabolic 2000 panel 18.6 {RATIO} Normal 10-20 [facility] Work Phone: Comment on above: Comments: for heart cathComments: for [facility] [address] [place], [place], [id number] Basic metabolic 2000 panel 9.1 mg/dL Normal 8.5-10.1 [facility] Work Phone: Comment on above: Comments: for heart cathComments: for [facility] [address] [place], [id number] CBC-Complete Blood Cnt No Di ffOrdered By: Cashier Courtesy Booth on 09-05-2017 Erythrocyte distribution width Auto Ratio (RBC) 12.2 % Normal 11.6-14.6 [facility] Work Phone: Erythrocyte distribution width Ratio (RBC) 12.2 % Normal 11.6-14.6 [facility] Work Phone: Comment on above: Comments: For heart cathComments: for [facility] [address] [place], [address] Hematocrit Auto Volume Fraction (Bld) 34.8 % Abnormal 37-47 [facility] Work Phone: Hematocrit Volume Fraction (Bld) 34.8 % Abnormal 37-47 [facility] Work Phone: Comment on above: Comments: For heart cathComments: for [facility] [address] [place], [place], [id number] Hemoglobin mass conc (Bld) 11.7 g/dL Abnormal 12.0-15.0 [facility] Work Phone: Comment on above: Comments: For heart cathComments: for [facility] [address] [place], [place], [phone] MCH Auto Entitic mass (RBC) 31.1 pg Normal 27.0-32.0 [facility] Work Phone: MCH Entitic mass (RBC) 31.1 pg Normal 27.0-32.0 [facility] Work Phone: Comment on above: Comments: For heart cathComments: for [facility] [address] [place], [phone] MCHC Auto mass conc (RBC) 33.6 {g/gl} Normal 32-36 [facility] Work Phone: MCHC mass conc (RBC) 33.6 {g/gl} Normal 32-36 [facility] Work Phone: Comment on above: Comments: For heart cathComments: for [facility] [address] [place], [phone] MCV Auto Entitic volume (RBC) 92.6 fL Normal 81-99 [facility] Work Phone: MCV Entitic volume (RBC) 92.6 fL Normal 81-99 [facility] Work Phone: Comment on above: Comments: For heart cathComments: for [facility] [address] [place], [address] Platelet mean volume Auto Entitic volume (Bld) 9.5 fL Normal 6.2-12.0 [facility] Work Phone: Platelet mean volume Entitic volume (Bld) 9.5 fL Normal 6.2-12.0 [facility] Work Phone: Comment on above: Comments: For heart cathComments: for [facility] [address] [place], [address] Platelets #/vol (Bld) 212 10*3/uL Normal 150-450 [facility] Work Phone: Comment on above: Comments: For heart cathComments: for [facility] [address] [place], [address] Platelets Auto #/vol (Bld) 212 10*3/uL Normal 150-450 [facility] Work Phone: RBC #/vol (Bld) 3.76 {M/mm3} Abnormal 4.2-5.4 [facility] Work Phone: Comment on above: Comments: For heart cathComments: for [facility] [address] [place], [address] RBC Auto #/vol (Bld) 3.76 {M/mm3} Abnormal 4.2-5.4 [facility] Work Phone: RDW SD 41.0 fL Normal 35.1-43.9 [facility] Work Phone: WBC #/vol (Bld) 8.3 10*3/uL Normal 4.4-11.0 [facility] Work Phone: Comment on above: Comments: For heart cathComments: for [facility] [address] [place], [address] WBC Auto #/vol (Bld) 8.3 10*3/uL Normal 4.4-11.0 [facility] prehensive [facility] Work Phone: CBC-Complete Blood Cnt No Diff 41.0 fL Normal 35.1-43.9 [facility] Work Phone: Comment on above: Comments: For heart cathComments: for [facility] [address] [place], [address] BNP,B-Type NATRIURETIC PEPTI DEOrdered By: Cashier Courtesy Booth on 08-31-2017 B-TYPE SALEEM PEP 71.7 pg/mL Normal 0-100 [facility] Work Phone: BNP,B-Type NATRIURETIC PEPTIDE 71.7 pg/mL Normal 0-100 [facility] Work Phone: Comment on above: [facility] [address] [place], [address] ALKALINE PHOSPHATASE ([id number]) Ordered By: Cashier Courtesy Booth on 08-23-2017 ALP enzyme act/vol 84 [iU]/L Normal 39-117 Compre [facility] Internal Medicine Work Phone: Comment on above: PATIENT NOT FASTINGP ERFORMED BY: CB [facility] Lejgkq0743 Vann RoadDublin [place] [id number]; ov 612 C-REACTIVE PROTEIN ([id number])Or dered By: Cashier Courtesy Booth on 08-23-2017 CRP mass conc 2.0 mg/L Normal 0.0-4.9 Comprehensi Internal Medicine Work Phone: Comment on above: PATIENT NOT FASTINGP ERFORMED BY: CB [facility] Gdtnxf1087 Vann RoadDublin [place] [id number] CALCIUM SERUM ([id number])Ordered By: Cashier Courtesy Booth on 08-23-2017 Calcium mass conc 9.5 mg/dL Normal 8.7-10.3 Compreh ensive Internal Medicine Work Phone: Comment on above: PATIENT NOT FASTINGP ERFORMED BY: DAYDAY [facility] Esussh4842 [address] RoadDublin [place] [id number] CBC (AUTO) ([id number])Ordered By : Cashier Courtesy Booth on 08-23-2017 Erythrocyte distribution width Auto Ratio (RBC) 12.9 % Normal 12.3-15.4 [facility] Work Phone: Erythrocyte distribution width Ratio (RBC) 12.9 % Normal 12.3-15.4 [facility] Work Phone: Comment on above: PATIENT NOT FASTINGP ERFORMED BY: DAYDAY [facility] Auqfbl3198 [address] RoadDublin [place] [id number] Hematocrit Auto Volume Fraction (Bld) 37.2 % Normal 34.0-46.6 Comprehens [facility] Internal Medicine Work Phone: Hematocrit Volume Fraction (Bld) 37.2 % Normal 34.0-46.6 [facility] Work Phone: Comment on above: PATIENT NOT FASTINGP ERFORMED BY: CB [facility] Qwdorg0205 [address] RoadDublin [place] [id number] Hemoglobin mass conc (Bld) 12.1 g/dL Normal 11.1-15.9 [facility] Work Phone: Comment on above: PATIENT NOT FASTINGP ERFORMED BY: CB [facility] Ykyegw3483 Vann RoadDublin [place] [id number] MCH Auto Entitic mass (RBC) 31.1 pg Normal 26.6-33.0 [facility] Work Phone: MCH Entitic mass (RBC) 31.1 pg Normal 26.6-33.0 [facility] Work Phone: Comment on above: PATIENT NOT FASTINGP ERFORMED BY: DAYDAY [facility] Hsqfuv6295 [facility] [id number] MCHC Auto mass conc (RBC) 32.5 g/dL Normal 31.5-35.7 [facility] Work Phone: MCHC mass conc (RBC) 32.5 g/dL Normal 31.5-35.7 Comp rehensive Internal Medicine Work Phone: Comment on above: PATIENT NOT FASTINGP ERFORMED BY: DAYDAY LabRomaine DangeloExdhnn0806 [facility] [id number] MCV Auto Entitic volume (RBC) 96 fL Normal 79-97 [facility] Work Phone: MCV Entitic volume (RBC) 96 fL Normal 79-97 [facility] Work Phone: Comment on above: PATIENT NOT FASTINGP ERFORMED BY: DAYDAY [facility] Ycbwqt2466 [facility] [id number] Platelets #/vol (Bld) 205 {x10E3/uL} Normal 150-379 [facility] Work Phone: Comment on above: PATIENT NOT FASTINGP ERFORMED BY: CB [facility] Trxwpu1689 [facility] [id number] Platelets Auto #/vol (Bld) 205 {x10E3/uL} Normal 150-379 [facility] Work Phone: RBC #/vol (Bld) 3.89 {x10E6/uL} Normal 3.77-5.28 Comp rehensive Internal Medicine Work Phone: Comment on above: PATIENT NOT FASTINGP ERFORMED BY: DAYDAY [facility] Tlkfmi4564 [facility] [id number] RBC Auto #/vol (Bld) 3.89 {x10E6/uL} Normal 3.77-5.28 [facility] Internal Medicine Work Phone: WBC #/vol (Bld) 6.7 {x10E3/uL} Normal 3.4-10.8 [facility] Internal Medicine Work Phone: Comment on above: PATIENT NOT FASTINGP ERFORMED BY: CB [facility] Qbhtmq8091 [address]Dublin [place] [id number] WBC Auto #/vol (Bld) 6.7 {x10E3/uL} Normal 3.4-10.8 [facility] Internal Medicine Work Phone: PARATHORMONE ([id number])Ordered By: Cashier Courtesy Booth on 08-23-2017 Parathyrin.intact mass conc 31 pg/mL Normal 15-65 [facility] Internal Medicine Work Phone: Comment on above: PATIENT NOT FASTINGP ERFORMED BY: CB [facility] Mwrqbm9283 [address] RoadDublin [place] [id number] PHOSPHORUS ([id number])Ordered By : Cashier Courtesy Booth on 08-23-2017 Phosphate mass conc 3.6 mg/dL Normal 2.5-4.5 [facility] Internal Medicine Work Phone: Comment on above: PATIENT NOT FASTINGP ERFORMED BY: CB [facility] Kncetr3081 [address] RoadDublin [place] [id number] SED RATE ERYTHROCYTE ([id number]) Ordered By: Cashier Courtesy Booth on 08-23-2017 ESR Velocity (Bld) 3 mm/h Normal 0-40 [facility] Internal Medicine Work Phone: Comment on above: PATIENT NOT FASTINGP ERFORMED BY: CB [facility] Sfbhxs1490 [address] RoadDublin [place] [id number] SPEP ([id number])Ordered By: Syst em [employer] Referral Clerk on 08-23-2017 Albumin mass conc 3.5 g/dL Normal 2.9-4.4 [facility] Internal Medicine Work Phone: Comment on above: PATIENT NOT FASTINGP ERFORMED BY: CB [facility] Falkdj9892 [address] RoadDublin [place] [id number] Albumin/Globulin mass ratio 1.1 {ratio} Normal 0.7-1.7 [facility] Work Phone: Comment on above: PATIENT NOT FASTINGP ERFORMED BY: CB [facility] Dhoqzi4462 V[address] RoadHaywood [facility] Centerin [place] [id number] Alpha 1 globulin Elph mass conc 0.2 g/dL Normal 0.0-0.4 [facility] Work Phone: Comment on above: PATIENT NOT FASTINGP ERFORMED BY: CB [facility] Moncxo1737 V[address] RoadHaywood [facility] Centerin [place] [id number] Alpha 2 globulin Elph mass conc 0.7 g/dL Normal 0.4-1.0 [facility] Work Phone: Comment on above: PATIENT NOT FASTINGP ERFORMED BY: CB [facility] Cpddds4329 Vann [facility] [place] [id number] Beta globulin Elph mass conc 1.0 g/dL Normal 0.7-1.3 [facility] Work Phone: Comment on above: PATIENT NOT FASTINGP ERFORMED BY: CB [facility] Udtglk7805 V[address] RoadHaywood [facility] Centerin [place] [id number] Gamma globulin Elph mass conc 1.2 g/dL Normal 0.4-1.8 [facility] Work Phone: Comment on above: PATIENT NOT FASTINGP ERFORMED BY: CB [facility] Ymrlxs4712 [address] [facility] [id number] Globulin Calculated mass conc (S) 3.1 g/dL Normal 2.2-3.9 [facility] Work Phone: Globulin mass conc (S) 3.1 g/dL Normal 2.2-3.9 [facility] Work Phone: Comment on above: PATIENT NOT FASTINGP ERFORMED BY: CB [facility] Vqisgv4387 Vann [facility] [place] [id number] Laboratory comment Daniel (Report) SPRCS Normal [facility] Work Phone: Comment on above: Protein electrophore sis scan will follow via computer, mail, orcourier delivery. PATIENT NOT FASTINGP ERFORMED BY: CB [facility] Ztaoks1349 [address] [facility] [place] [id number] Laboratory report . Normal Compreh ensive Internal Medicine Work Phone: Comment on above: PATIENT NOT FASTINGP ERFORMED BY: DAYDAY Parks6370 [address] [facility] [id number] Protein mass conc 6.6 g/dL Normal 6.0-8.5 Compreh ensive Internal Medicine Work Phone: Comment on above: PATIENT NOT FASTINGP ERFORMED BY: DAYDAY Dangelolin6370 [address] [facility] [id number] Protein.monoclonal Elph mass conc Not Observed Normal [facility] Work Phone: Comment on above: PATIENT NOT FASTINGP ERFORMED BY: DAYDAY Dangelolin6370 [facility] [id number] TSH ([id number])Ordered By: FashionFreax GmbHe m [employer] Referral Clerk on 08-23-2017 Thyrotropin Qn 1.350 {uIU/mL} Normal 0.450-4.50 0 [facility] Work Phone: Comment on above: PATIENT NOT FASTINGP ERFORMED BY: DAYDAY Paul Dmuhvx7018 [facility] [id number] UPEP ([id number])Ordered By: Syst em [employer] Referral Clerk on 08-23-2017 Albumin/Protein.total Elph mass fraction (U) 34.9 % Normal [facility] Work Phone: Comment on above: PATIENT NOT FASTINGP ERFORMED BY: DAYDAY Paulrp Pvprth8967 [facility] [id number] Alpha 1 globulin/Protein.tota l Elph mass fraction (U) 4.7 % Normal [facility] Work Phone: Comment on above: PATIENT NOT FASTINGP ERFORMED BY: DAYDAY [facility] Cjwkec4015 [facility] [id number] Alpha 2 globulin/Protein.tota l Elph mass fraction (U) 14.0 % Normal [facility] Work Phone: Comment on above: PATIENT NOT FASTINGP ERFORMED BY: DAYDAY [facility] Ahmasu7555 [facility] [id number] Beta globulin/Protein.tota l Elph mass fraction (U) 34.6 % Normal [facility] Work Phone: Comment on above: PATIENT NOT FASTINGP ERFORMED BY: CB [facility] Fhfgaq2458 [address] RoadDublin [place] [id number] Gamma globulin/Protein.tota l Elph mass fraction (U) 11.8 % Normal [facility] Work Phone: Comment on above: PATIENT NOT FASTINGP ERFORMED BY: CB [facility] Oyhwgh9036 [address] RoadDublin [place] [id number] Protein mass conc (U) 7.2 mg/dL Normal Com prehensive Internal Medicine Work Phone: Comment on above: PATIENT NOT FASTINGP ERFORMED BY: CB [facility] Njyuun8139 [address] RoadDublin [place] [id number] Protein.monoclonal/Pr otein.total Elph mass fraction (U) Not Observed Normal [facility] Work Phone: Comment on above: PATIENT NOT FASTINGP ERFORMED BY: CB [facility] Vvaksy3614 Vann RoadDublin [place] [id number] Vitamin D Hydroxy ([id number])Ord ered By: Cashier Courtesy Booth on 08-23-2017 25-Hydroxyvitamin D2+25-Hydroxyvitamin D3 mass conc 34.5 ng/mL Normal 30.0-100.0 [facility] Work Phone: Comment on above: Vitamin D deficiency has been defined by the [place] ofMedicine and an Endocrine Society practice guideline as alevel of serum 25-OH vitamin D less than 20 ng/mL (1,2).The Endocrine Society went on to further define vitamin Dinsufficiency as a level between 21 and 29 ng/mL (2).1. IOM ([place] of Medicine). 2010. Dietary reference intakes for calcium and D. [place]: The National Academies Press.2. Trevon MF, Sherrell JEFFERSON, Treva CORLEY, et al. Evaluation, treatment, and prevention of vitamin D deficiency: an Endocrine Society clinical practice guideline. JCEM. 2010; 96(7):1911-30. PATIENT NOT FASTINGP ERFORMED BY: CB [facility] Sesqmq3368 [place] [id number] Lipid ProfileOrdered By: Liam tem [employer] Referral Clerk on 08-17-2017 Cholesterol in HDL mass conc 54 mg/dL Normal [facility] Work Phone: Comment on above: The drugs N-Acetylcy steine and Metamizole may falselydepress this assay. Reference Range HDL <40 mg/dL Low HDL Cholesterol HDL >or= 60 mg/dL High HDL Cholesterol [facility] [address] [place], [place], [phone] Cholesterol in LDL mass conc 123 mg/dL Normal 0-130 [facility] Work Phone: Cholesterol in LDL mass conc 123 mg/dL Normal 0-130 [facility] Work Phone: Comment on above: [facility] [address] [place], [place], [address] Cholesterol in VLDL mass conc 14 mg/dL Normal 5-40 [facility] Work Phone: Comment on above: [facility] [address] [place], [place], [phone] Cholesterol mass conc 191 mg/dL Normal Com prehensive Internal Medicine Work Phone: Comment on above: <200 mg/dL Desirable 200-240 mg/dL Borderline >240 mg/dL High Risk [facility] [address] [place], [place], [phone] Triglyceride mass conc 70 mg/dL Normal [facility] Work Phone: Comment on above: The drugs N-Acetylcy steine and Metamizole may falselydepress this assay.Serum Triglycerides Reference Interval Normal <150 mg/dL Borderline high 150 - 199 mg/dL High 200 - 499 mg/dL Very High > or = 500 mg/dL [facility] [address] [place], [place], [phone] Lipid Profile 14 mg/dL Normal 5-40 Comprehensi Internal Medicine Work Phone: Liver ProfileOrdered By: Liam tem [employer] Referral Clerk on 08-17-2017 Albumin mass conc 3.7 g/dL Normal 3.2-5.0 [facility] Internal Medicine Work Phone: Comment on above: [facility] [address] [place], [place], [address] ALP enzyme act/vol 92 U/L Normal 45-117 [facility] Work Phone: Comment on above: [facility] [address] [place], [place], [phone] ALT enzyme act/vol 26 U/L Normal 13-56 [facility] Internal [facility] Work Phone: Comment on above: [facility] [address] [place], [place], [address] AST enzyme act/vol 28 U/L Normal 15-37 [facility] Work Phone: Comment on above: [facility] [address] [place], [place], [address] Bilirubin mass conc 0.50 mg/dL Normal 0.20-1.00 [facility] Internal Medicine Work Phone: Comment on above: [facility] [address] [place], [place], [address] Bilirubin.direct mass conc 0.10 mg/dL Normal 0.00-0.30 [facility] Work Phone: Comment on above: [facility] [address] [place], [place], [phone] Globulin Calculated mass conc (S) 3.6 g/dL Normal 2.2-4.2 [facility] Work Phone: Globulin mass conc (S) 3.6 g/dL Normal 2.2-4.2 [facility] Work Phone: Comment on above: [facility] [address] [place], [address] Protein mass conc 7.3 g/dL Normal 6.4-8.2 Compreh ensive Internal Medicine Work Phone: Comment on above: [facility] [address] [place], [place], [phone] Lipid ProfileOrdered By: Liam tem [employer] Referral Clerk on 07-13-2017 Cholesterol in HDL mass conc 51 mg/dL Normal [facility] Work Phone: Comment on above: The drugs N-Acetylcy steine and Metamizole may falselydepress this assay. Reference Range HDL <40 mg/dL Low HDL Cholesterol HDL >or= 60 mg/dL High HDL Cholesterol [facility] [address] [place], [address] Cholesterol in LDL mass conc 56 mg/dL Normal 0-130 [facility] Work Phone: Cholesterol in LDL mass conc 56 mg/dL Normal 0-130 [facility] Work Phone: Comment on above: [facility] [address] [place], [place], [address] Cholesterol in VLDL mass conc 9 mg/dL Normal 5-40 [facility] Work Phone: Comment on above: [facility] [address] [place], [place], [address] Cholesterol mass conc 116 mg/dL Normal Com prehensive Internal Medicine Work Phone: Comment on above: <200 mg/dL Desirable 200-240 mg/dL Borderline >240 mg/dL High Risk [facility] [address] [place], [place], [phone] Triglyceride mass conc 46 mg/dL Normal [facility] Work Phone: Comment on above: The drugs N-Acetylcy steine and Metamizole may falselydepress this assay.Serum Triglycerides Reference Interval Normal <150 mg/dL Borderline high 150 - 199 mg/dL High 200 - 499 mg/dL Very High > or = 500 mg/dL [facility] [address] [place], [place], [address] Lipid Profile 9 mg/dL Normal 5-40 Comprehensi ve Internal Medicine Work Phone: Liver ProfileOrdered By: Liam tem Temporary [employer] Referral Clerk on 07-13-2017 Albumin mass conc 3.7 g/dL Normal 3.2-5.0 Compreh ensive Internal Medicine Work Phone: Comment on above: [facility] [address] [place], [place], [phone] ALP enzyme act/vol 245 U/L Abnormal 45-117 Compre hensive Internal Medicine Work Phone: Comment on above: [facility] [address] [place], [place], [phone] ALT enzyme act/vol 133 U/L Abnormal 13-56 Compre hensive Internal Medicine Work Phone: Comment on above: [facility] [address] [place], [place], [address] AST enzyme act/vol 113 U/L Abnormal 15-37 Compre [facility] Internal Medicine Work Phone: Comment on above: [facility] [address] [place], [place], [address] Bilirubin mass conc 0.70 mg/dL Normal 0.20-1.00 Compr ehensive Internal Medicine Work Phone: Comment on above: [facility] [address] [place], [place], [address] Bilirubin.direct mass conc 0.24 mg/dL Normal 0.00-0.30 [facility] Work Phone: Comment on above: [facility] [address] [place], [place], [address] Globulin Calculated mass conc (S) 3.7 g/dL Normal 2.2-4.2 [facility] Work Phone: Globulin mass conc (S) 3.7 g/dL Normal 2.2-4.2 [facility] Work Phone: Comment on above: [facility] [address] [place], [place], [address] Protein mass conc 7.4 g/dL Normal 6.4-8.2 Compreh ensive Internal Medicine Work Phone: Comment on above: [facility] [address] [place], [place], [address] Basic Metabolic Profile (BMP )Ordered By: Cashier Courtesy Booth on 05-30-2017 Basic metabolic 2000 panel 19.0 {RATIO} Normal 10-20 [facility] Work Phone: Comment on above: 'TROP' Serial specim en #1, #2, #3, or #4: [address] [place] [address] [place], [place], [phone] Basic metabolic 2000 panel 10 1 Normal 5-15 [facility] Work Phone: Comment on above: 'TROP' Serial specim en #1, #2, #3, or #4: [address] [place] [address] [place], [place], [address] Basic metabolic 2000 panel 106 mmol/L Normal 98-107 [facility] Work Phone: Comment on above: 'TROP' Serial specim en #1, #2, #3, or #4: [address] [place] [address] [place], [place], [phone] Basic metabolic 2000 panel 4.5 mmol/L Normal 3.5-5.1 [facility] Work Phone: Comment on above: 'TROP' Serial specim en #1, #2, #3, or #4: [address] [place] [address] [place], [place], [address] Basic metabolic 2000 panel 140 mmol/L Normal 136-145 [facility] Work Phone: Comment on above: 'TROP' Serial specim en #1, #2, #3, or #4: [address] [place] [address] [place], [place], 2049[address] Basic metabolic 2000 panel 9.3 mg/dL Normal 8.5-10.1 [facility] Work Phone: Comment on above: 'TROP' Serial specim en #1, #2, #3, or #4: [address] [place] [address] [place], [address] Basic metabolic 2000 panel 24.0 mmol/L Normal 21.0-32.0 [facility] Work Phone: Comment on above: 'TROP' Serial specim en #1, #2, #3, or #4: [address] [place] [address] [place], [place], [phone] Basic metabolic 2000 panel 41.05 ml/min Normal [facility] Work Phone: Comment on above: 'TROP' Serial specim en #1, #2, #3, or #4: [address] [place] [address] [place], [address] Basic metabolic 2000 panel 57 mL/min Abnormal [facility] Work Phone: Comment on above: Non- GFR Calc 'TROP' Serial specim en #1, #2, #3, or #4: [address] [place] [address] [place], [address] Basic metabolic 2000 panel 1.00 mg/dL Normal 0.55-1.02 [facility] Work Phone: Comment on above: The validity of the calculated GFR AND GFRAA in patients over70 years has not been determined. Clinical correlation isessential. 'TROP' Serial specim en #1, #2, #3, or #4: [address] [place] [address] [place], [address] Basic metabolic 2000 panel 109 mg/dL Abnormal 74-106 [facility] Work Phone: Comment on above: Fasting Glucose resu lt from 100 to 125 mg/dLsuggests IMPAIRED HOMEOSTASIS per A.D.A. criteria.Please note revised GLUCOSE reference range [email or web address]/02/2018. 'TROP' Serial specim en #1, #2, #3, or #4: [address] [place] [address] [place], [place], [address] Basic metabolic 2000 panel 69 mL/min Normal [facility] Work Phone: Comment on above: GFR Calc 'TROP' Serial specim en #1, #2, #3, or #4: [address] [place] [address] [place], [place], [address] Basic metabolic 2000 panel 19 mg/dL Abnormal 7-18 [facility] Work Phone: Comment on above: 'TROP' Serial specim en #1, #2, #3, or #4: [address] [place] [address] [place], [place], [phone] CBC W/Diff, AutomatedOrdered By: Cashier Courtesy Booth on 05-30-2017 Absolute Lymph 1.82 {X10_3/ul} Normal 0.83-4.51 Compr ehensive Internal Medicine Work Phone: Absolute Neut 4.4 {X10_3/uL} Normal 2.0-7.7 Compreh ensive Internal Medicine Work Phone: Comment on above: [facility] [address] [place], [address] Basophils/100 WBC (Bld) 0.4 % Normal 0-1 [facility] Work Phone: Comment on above: [facility] [address] [place], [address] Basophils/100 WBC Auto (Bld) 0.4 % Normal 0-1 [facility] Work Phone: Eosinophils/100 WBC (Bld) 3.0 % Normal 0-5 [facility] Work Phone: Comment on above: [facility] [address] [place], [address] Eosinophils/100 WBC Auto (Bld) 3.0 % Normal 0-5 [facility] Work Phone: Erythrocyte distribution width Auto Ratio (RBC) 12.1 % Normal 11.6-14.6 [facility] Work Phone: Erythrocyte distribution width Ratio (RBC) 12.1 % Normal 11.6-14.6 [facility] Work Phone: Comment on above: [facility] [address] [place], [address] Hematocrit Auto Volume Fraction (Bld) 36.3 % Abnormal 37-47 Comprehens [facility] Internal Medicine Work Phone: Hematocrit Volume Fraction (Bld) 36.3 % Abnormal 37-47 [facility] Work Phone: Comment on above: [facility] [address] [place], [address] Hemoglobin mass conc (Bld) 12.4 g/dL Normal 12.0-15.0 [facility] Work Phone: Comment on above: [facility] [address] [place], [address] IM GRAN % 0.100 % Normal 0.0-0.9 [facility] Work Phone: Comment on above: IG% - Immature Granu locytes (promyelocytes, myelocytes andmetamyelocytes) > 1% indicates that a LEFT SHIFT is Present. [facility] [address] [place], [address] Lymphocytes #/vol (Bld) 1.82 {X10_3/ul} Normal 0.83-4.51 [facility] Work Phone: Comment on above: [facility] [address] [place], [address] Lymphocytes/100 WBC (Bld) 26.4 % Normal 19-41 [facility] Work Phone: Comment on above: [facility] [address] [place], [address] Lymphocytes/100 WBC Auto (Bld) 26.4 % Normal 19-41 [facility] Work Phone: MCH Auto Entitic mass (RBC) 32.0 pg Normal 27.0-32.0 [facility] Work Phone: MCH Entitic mass (RBC) 32.0 pg Normal 27.0-32.0 [facility] Work Phone: Comment on above: [facility] [address] [place], [address] MCHC Auto mass conc (RBC) 34.2 {g/gl} Normal 32-36 [facility] Work Phone: MCHC mass conc (RBC) 34.2 {g/gl} Normal 32-36 [facility] prehensive Internal Medicine Work Phone: Comment on above: [facility] [address] [place], [address] MCV Auto Entitic volume (RBC) 93.6 fL Normal 81-99 [facility] Work Phone: MCV Entitic volume (RBC) 93.6 fL Normal 81-99 [facility] Work Phone: Comment on above: [facility] [address] [place], [address] Monocytes/100 WBC Auto (Bld) 6.2 % Normal 0-10 [facility] Work Phone: Comment on above: [facility] [address] [place], [address] Monocytes/100 WBC Auto (Bld) 6.2 % Normal 0-10 [facility] Work Phone: Neutrophils/100 WBC (Bld) 63.9 % Normal 47-70 [facility] Work Phone: Comment on above: [facility] [address] [place], [address] Neutrophils/100 WBC Auto (Bld) 63.9 % Normal 47-70 [facility] Work Phone: Platelet mean volume Auto Entitic volume (Bld) 9.8 fL Normal 6.2-12.0 [facility] Work Phone: Platelet mean volume Entitic volume (Bld) 9.8 fL Normal 6.2-12.0 Comprehensi Internal Medicine Work Phone: Comment on above: [facility] [address] [place], [address] Platelets #/vol (Bld) 192 10*3/uL Normal 150-450 [facility] Internal Medicine Work Phone: Comment on above: [facility] [address] [place], [address] Platelets Auto #/vol (Bld) 192 10*3/uL Normal 150-450 [facility] Work Phone: RBC #/vol (Bld) 3.88 {M/mm3} Abnormal 4.2-5.4 Compreh ensive Internal Medicine Work Phone: Comment on above: [facility] [address] [place], [address] RBC Auto #/vol (Bld) 3.88 {M/mm3} Abnormal 4.2-5.4 [facility] Internal Medicine Work Phone: RDW SD 40.9 fL Normal 35.1-43.9 [facility] Internal Medicine Work Phone: Comment on above: [facility] [address] [place], [address] WBC #/vol (Bld) 6.9 10*3/uL Normal 4.4-11.0 Comprehe nsive Internal Medicine Work Phone: Comment on above: [facility] [address] [place], [address] WBC Auto #/vol (Bld) 6.9 10*3/uL Normal 4.4-11.0 [facility] prehensive Internal Medicine Work Phone: CBC W/Diff, Automated 4.4 {X10_3/uL} Normal 2.0-7.7 [facility] Work Phone: CBC W/Diff, Automated 0.100 % Normal 0.0-0.9 [facility] prehensive Internal Medicine Work Phone: Comment on above: IG% - Immature Granu locytes (promyelocytes, myelocytes andmetamyelocytes) > 1% indicates that a LEFT SHIFT is Present. CBC W/Diff, Automated 40.9 fL Normal 35.1-43.9 [facility] prehensive Internal Medicine Work Phone: CBC W/Diff, Automated 1.82 {X10_3/ul} Normal 0.83-4.51 [facility] Work Phone: Troponin-IOrdered By: Cashier Courtesy Booth on 05-30-2017 Troponin I.cardiac mass conc 0.09 ng/mL Abnormal [facility] Work Phone: Comment on above: TROPONIN-I EXPECTED VALUES <0.05 NEGATIVE 0.06 - 0.59 AT RISK OF [place] > [place] = 0.60 SUGGEST [place] 'TROP' Serial specim en #1, #2, #3, or #4: [address] [place] [address] [place], [address] Troponin I.cardiac mass conc 0.12 ng/mL Abnormal [facility] Work Phone: Comment on above: TROPONIN-I EXPECTED VALUES <0.05 NEGATIVE 0.06 - 0.59 AT RISK OF [place] > OR = 0.60 SUGGEST [place] Has pt arrived? Y'TR OP' Serial specimen #1, #2, #3, or #4: [address] [place] [address] [place], [address] CBC, Platelets & Auto Diff ( [id number])Ordered By: Cashier Courtesy Booth on 05-21-2017 Basophils #/vol (Bld) 0.1 {x10E3/uL} Normal 0.0-0.2 [facility] Work Phone: Comment on above: PATIENT NOT FASTINGP ERFORMED BY: [place] [id number] [facility] [id number] Basophils Auto #/vol (Bld) 0.1 {x10E3/uL} Normal 0.0-0.2 [facility] Work Phone: Basophils/100 WBC (Bld) 1 % Normal [facility] Work Phone: Comment on above: PATIENT NOT FASTINGP ERFORMED BY: [place] [id number] [facility] [id number] Basophils/100 WBC Auto (Bld) 1 % Normal [facility] Work Phone: Eosinophils #/vol (Bld) 0.2 {x10E3/uL} Normal 0.0-0.4 [facility] Work Phone: Comment on above: PATIENT NOT FASTINGP ERFORMED BY: [address] [id number] Eosinophils Auto #/vol (Bld) 0.2 {x10E3/uL} Normal 0.0-0.4 [facility] Work Phone: Eosinophils/100 WBC (Bld) 2 % Normal [facility] Work Phone: Comment on above: PATIENT NOT FASTINGP ERFORMED BY: [place] [id number] [facility] [id number] Eosinophils/100 WBC Auto (Bld) 2 % Normal [facility] Work Phone: Erythrocyte distribution width Auto Ratio (RBC) 13.2 % Normal 12.3-15.4 [facility] Work Phone: Erythrocyte distribution width Ratio (RBC) 13.2 % Normal 12.3-15.4 [facility] Work Phone: Comment on above: PATIENT NOT FASTINGP ERFORMED BY: [place] [id number] [address] [place] [id number] Hematocrit Auto Volume Fraction (Bld) 37.2 % Normal 34.0-46.6 [facility] Internal Medicine Work Phone: Hematocrit Volume Fraction (Bld) 37.2 % Normal 34.0-46.6 [facility] Work Phone: Comment on above: PATIENT NOT FASTINGP ERFORMED BY: CB [facility] Fsjyvs[address]ublin [place] [id number] Hemoglobin mass conc (Bld) 12.5 g/dL Normal 11.1-15.9 [facility] Work Phone: Comment on above: PATIENT NOT FASTINGP ERFORMED BY: DAYDAY Olena Dangelolin6370 [address] RoadDublin [place] [id number] Immature granulocytes #/vol (Bld) 0.0 {x10E3/uL} Normal 0.0-0.1 [facility] Work Phone: Comment on above: PATIENT NOT FASTINGP ERFORMED BY: [facility] Cmyxgw5353 [address]Dublin [place] [id number] Immature granulocytes/100 WBC (Bld) 0 % Normal [facility] Work Phone: Comment on above: PATIENT NOT FASTINGP ERFORMED BY: [facility] Ubwksa4916 [address]ublin [place] [id number] Lymphocytes #/vol (Bld) 2.2 {x10E3/uL} Normal 0.7-3.1 [facility] Work Phone: Comment on above: PATIENT NOT FASTINGP ERFORMED BY: [facility] Fspfov0022 [address] Road[address]ublin [place] [id number] Lymphocytes Auto #/vol (Bld) 2.2 {x10E3/uL} Normal 0.7-3.1 [facility] Work Phone: Lymphocytes/100 WBC (Bld) 26 % Normal [facility] Work Phone: Comment on above: PATIENT NOT FASTINGP ERFORMED BY: CB [facility] Xgoiii6107 [address]ublin [place] [id number] Lymphocytes/100 WBC Auto (Bld) 26 % Normal [facility] Work Phone: MCH Auto Entitic mass (RBC) 31.7 pg Normal 26.6-33.0 [facility] Work Phone: MCH Entitic mass (RBC) 31.7 pg Normal 26.6-33.0 [facility] Work Phone: Comment on above: PATIENT NOT FASTINGP ERFORMED BY: DAYDAY [place] [id number] [facility] [id number] MCHC Auto mass conc (RBC) 33.6 g/dL Normal 31.5-35.7 [facility] Work Phone: MCHC mass conc (RBC) 33.6 g/dL Normal 31.5-35.7 Comp rehensive Internal Medicine Work Phone: Comment on above: PATIENT NOT FASTINGP ERFORMED BY: DAYDAY [place] [id number] [facility] [id number] MCV Auto Entitic volume (RBC) 94 fL Normal 79-97 [facility] Work Phone: MCV Entitic volume (RBC) 94 fL Normal 79-97 [facility] Work Phone: Comment on above: PATIENT NOT FASTINGP ERFORMED BY: DAYDAY [facility] Cxgksq4466 [facility] [id number] Monocytes #/vol (Bld) 0.6 {x10E3/uL} Normal 0.1-0.9 [facility] Work Phone: Comment on above: PATIENT NOT FASTINGP ERFORMED BY: [facility]6370 [facility] [id number] Monocytes Auto #/vol (Bld) 0.6 {x10E3/uL} Normal 0.1-0.9 [facility] Work Phone: Monocytes/100 WBC (Bld) 7 % Normal [facility] Work Phone: Comment on above: PATIENT NOT FASTINGP ERFORMED BY: [place] [id number] [facility] [id number] Monocytes/100 WBC Auto (Bld) 7 % Normal [facility] Work Phone: Neutrophils #/vol (Bld) 5.3 {x10E3/uL} Normal 1.4-7.0 [facility] Work Phone: Comment on above: PATIENT NOT FASTINGP ERFORMED BY: DAYDAY [place] [id number] [facility] [id number] Neutrophils Auto #/vol (Bld) 5.3 {x10E3/uL} Normal 1.4-7.0 [facility] Work Phone: Neutrophils/100 WBC (Bld) 64 % Normal [facility] Work Phone: Comment on above: PATIENT NOT FASTINGP ERFORMED BY: DAYDAY [facility]Rom[facility] DangeloHhahkq5314 [facility] [id number] Neutrophils/100 WBC Auto (Bld) 64 % Normal [facility] Work Phone: Platelets #/vol (Bld) 245 {x10E3/uL} Normal 150-379 [facility] Work Phone: Comment on above: PATIENT NOT FASTINGP ERFORMED BY: DAYDAY [place] [id number] [facility] [id number] Platelets Auto #/vol (Bld) 245 {x10E3/uL} Normal 150-379 [facility] Work Phone: RBC #/vol (Bld) 3.94 {x10E6/uL} Normal 3.77-5.28 [facility] Internal Medicine Work Phone: Comment on above: PATIENT NOT FASTINGP ERFORMED BY: [facility]6370 [facility] [id number] RBC Auto #/vol (Bld) 3.94 {x10E6/uL} Normal 3.77-5.28 [facility] Work Phone: WBC #/vol (Bld) 8.3 {x10E3/uL} Normal 3.4-10.8 [facility] Internal Medicine Work Phone: Comment on above: PATIENT NOT FASTINGP ERFORMED BY: CB [facility] Zgfhia7679 [address]Dublin [place] [id number] WBC Auto #/vol (Bld) 8.3 {x10E3/uL} Normal 3.4-10.8 [facility] Work Phone: Metabolic Panel, Comprehensi ve ([id number])Ordered By: Cashier Courtesy Booth on 05-21-2017 Albumin mass conc 4.4 g/dL Normal 3.5-4.8 Compreh [facility] Internal Medicine Work Phone: Comment on above: PATIENT NOT FASTINGP ERFORMED BY: CB [facility] Koeuzc6932 [address] RoadDublin [place] [id number] Albumin/Globulin mass ratio 1.8 {ratio} Normal 1.2-2.2 [facility] Work Phone: Comment on above: PATIENT NOT FASTINGP ERFORMED BY: CB [facility] Jzogwa4449 [address] RoadDublin [place] [id number] ALP enzyme act/vol 71 [iU]/L Normal 39-117 [facility] Internal [facility] Work Phone: Comment on above: PATIENT NOT FASTINGP ERFORMED BY: CB [facility] Vcytsh5894 [address] RoadDublin [place] [id number] ALT enzyme act/vol 13 [iU]/L Normal 0-32 [facility] Internal [facility] Work Phone: Comment on above: PATIENT NOT FASTINGP ERFORMED BY: CB [facility] Gnycqc6087 [address] RoadDublin [place] [id number] AST enzyme act/vol 22 [iU]/L Normal 0-40 [facility] Internal Medicine Work Phone: Comment on above: PATIENT NOT FASTINGP ERFORMED BY: CB [facility] Qopbcl5258 [address]Dublin [place] [id number] Bilirubin mass conc 0.4 mg/dL Normal 0.0-1.2 [facility] Internal Medicine Work Phone: Comment on above: PATIENT NOT FASTINGP ERFORMED BY: CB [facility] Wzgwms2952 [address]Dublin [place] [id number] Calcium mass conc 10.7 mg/dL Abnormal 8.7-10.3 Compreh ensive Internal Medicine Work Phone: Comment on above: PATIENT NOT FASTINGP ERFORMED BY: DAYDAY [facility] Cdpqnp[address] [facility] [id number] Chloride molar conc 101 mmol/L Normal 96-106 Compr ehensive Internal Medicine Work Phone: Comment on above: PATIENT NOT FASTINGP ERFORMED BY: DAYDAY [facility] Vpkszp[address] [facility] [id number] CO2 molar conc 24 mmol/L Normal 18-29 Comprehens [facility] Internal Medicine Work Phone: Comment on above: PATIENT NOT FASTINGP ERFORMED BY: DAYDAY [facility] Nsbtdk9116 [facility] [id number] Creatinine mass conc 0.96 mg/dL Normal 0.57-1.00 Comp rehensive Internal Medicine Work Phone: Comment on above: PATIENT NOT FASTINGP ERFORMED BY: DAYDAY [facility] Nygjht[address] [facility] [id number] GFR/1.73 sq M predicted among blacks CKD-EPI vol rate/area (S/P/Bld) 65 mL/min/1.73 Normal Comprehensiv e Internal Medicine Work Phone: Comment on above: PATIENT NOT FASTINGP ERFORMED BY: CB [facility] Yclmky[address]75 [address] [facility] [id number] GFR/1.73 sq M predicted among non-blacks CKD-EPI vol rate/area (S/P/Bld) 56 mL/min/1.73 Abnormal [facility] Work Phone: Comment on above: PATIENT NOT FASTINGP ERFORMED BY: CB [facility] Skwajv[address]013 [address] [facility] [id number] Globulin Calculated mass conc (S) 2.4 g/dL Normal 1.5-4.5 [facility] Work Phone: Globulin mass conc (S) 2.4 g/dL Normal 1.5-4.5 [facility] Work Phone: Comment on above: PATIENT NOT FASTINGP ERFORMED BY: DAYDAY [facility] Dpufzf6395 [address]Dublin [place] [id number] Glucose mass conc 108 mg/dL Abnormal 65-99 Compreh ensive Internal Medicine Work Phone: Comment on above: PATIENT NOT FASTINGP ERFORMED BY: DAYDAY [facility] Byinsv6154 [address]ublin [place] [id number] Potassium molar conc 4.5 mmol/L Normal 3.5-5.2 Comp rehensive Internal Medicine Work Phone: Comment on above: PATIENT NOT FASTINGP ERFORMED BY: DAYDAY [facility] Mptnqi5237 [address] RoadDublin [place] [id number] Protein mass conc 6.8 g/dL Normal 6.0-8.5 Compreh ensive Internal Medicine Work Phone: Comment on above: PATIENT NOT FASTINGP ERFORMED BY: DAYDAY [facility] Ouxufz6898 [address]Dublin [place] [id number] Sodium molar conc 140 mmol/L Normal 134-144 Compreh ensive Internal Medicine Work Phone: Comment on above: PATIENT NOT FASTINGP ERFORMED BY: DAYDAY LabRomaine DangeloBltizz3324 V[address] RoadHaywood Regional Medical Centerin [place] [id number] Urea nitrogen mass conc 18 mg/dL Normal 8-27 [facility] Work Phone: Comment on above: PATIENT NOT FASTINGP ERFORMED BY: DAYDAY LabKarinarp Qwiale7601 V[address] Roadblin [place] [id number] Urea nitrogen/Creatinine mass ratio 19 mg/mg Normal 12-28 [facility] Work Phone: Comment on above: PATIENT NOT FASTINGP ERFORMED BY: DAYDAY [facility] Fltzup4379 [address]Dublin [place] [id number] TSH ([id number])Ordered By: Ying Cordero on 05-21-2017 Thyrotropin Qn 1.640 {uIU/mL} Normal 0.450-4.50 0 [facility] Work Phone: Comment on above: PATIENT NOT FASTINGP ERFORMED BY: LabRomaine DangeloOudfgq4702 [facility] [id number] Rapid Flu (04596 x 2)Ordered By: Gianna Pereira on 03-22-2017 FLUAV Ag IA Ql (Throat) Negative Normal [facility] Work Phone: HgA1C , Office ([phone])Ordere d By: Lucinda Colbert on 02-05-2017 Hemoglobin A1c/Hemoglobin.total mass fraction (Bld) 5.3 % Normal 4.6 - 7.1 Comprehensiv e Internal Medicine Work Phone: GANGLIONOrdered By: Dorene cronin on 12-08-2016 GANGLION See Note Normal [facility] Work Phone: Comment on above: Patient: MAXI PARKER : 1935 (81/F) Acct Num: [id number] Phys: Fascione DPM,Patricia Unit Num: [id number] [place] [facility] [place]: [id number] Received: 12/08/161448 Spec Type: GANGLION TISSUES TISSUES: [...] The sections reveal a focal cystic area. Floral Department Specialist sections are submitted in one cassette. /SJ:jeremy12/08/16 TC: 5 CPT: 97618 HEADER OPERATION: Excision ganglion cyst, foot PRE-OP DIAGNOSIS: Ganglion cyst, left foot TISSUE SUBMITTED: Ganglion cyst, left foot (proximal tag) MICROSCOPIC DESCRIPTION Slides are reviewed. MICROSCOPIC DIAGNOSIS Soft tissue left foot, excision: Consistent with ganglion cyst. AM:jeremy 12/11/16 Signed Hussein Stephani 12/11/16 [facility] [address] [place], [place], [id number] CBC W/Diff, AutomatedOrdered By: Cashier Courtesy Booth on 12-02-2016 Absolute Lymph 1.87 {X10_3/ul} Normal 0.83-4.51 Compr ehensive Internal Medicine Work Phone: Absolute Neut 3.3 {X10_3/uL} Normal 2.0-7.7 Compreh ensive Internal Medicine Work Phone: Comment on above: [facility] [address] [place], [address] Basophils/100 WBC (Bld) 0.5 % Normal 0-1 [facility] Work Phone: Comment on above: [facility] [address] [place], [address] Basophils/100 WBC Auto (Bld) 0.5 % Normal 0-1 [facility] Work Phone: Eosinophils/100 WBC (Bld) 3.7 % Normal 0-5 [facility] Work Phone: Comment on above: [facility] [address] [place], [address] Eosinophils/100 WBC Auto (Bld) 3.7 % Normal 0-5 [facility] Work Phone: Erythrocyte distribution width Auto Ratio (RBC) 11.9 % Normal 11.6-14.6 [facility] Work Phone: Erythrocyte distribution width Ratio (RBC) 11.9 % Normal 11.6-14.6 [facility] Work Phone: Comment on above: [facility] [address] [place], [address] Hematocrit Auto Volume Fraction (Bld) 36.4 % Abnormal 37-47 Comprehens [facility] Internal Medicine Work Phone: Hematocrit Volume Fraction (Bld) 36.4 % Abnormal 37-47 [facility] Work Phone: Comment on above: [facility] [address] [place], [phone] Hemoglobin mass conc (Bld) 12.4 g/dL Normal 12.0-15.0 [facility] Work Phone: Comment on above: [facility] [address] [place], [place], [phone] IM GRAN % 0.000 % Normal 0.0-0.9 [facility] Work Phone: Comment on above: IG% - Immature Granu locytes (promyelocytes, myelocytes andmetamyelocytes) > 1% indicates that a LEFT SHIFT is Present. [facility] [address] [place], [place], [phone] Lymphocytes #/vol (Bld) 1.87 {X10_3/ul} Normal 0.83-4.51 [facility] Work Phone: Comment on above: [facility] [address] [place], [address] Lymphocytes/100 WBC (Bld) 31.3 % Normal 19-41 [facility] Work Phone: Comment on above: [facility] [address] [place], [address] Lymphocytes/100 WBC Auto (Bld) 31.3 % Normal 19-41 [facility] Work Phone: MCH Auto Entitic mass (RBC) 31.8 pg Normal 27.0-32.0 [facility] Work Phone: MCH Entitic mass (RBC) 31.8 pg Normal 27.0-32.0 [facility] Work Phone: Comment on above: [facility] [address] [place], [place], [phone] MCHC Auto mass conc (RBC) 34.1 {g/gl} Normal 32-36 [facility] Work Phone: MCHC mass conc (RBC) 34.1 {g/gl} Normal 32-36 [facility] prehensive Internal Medicine Work Phone: Comment on above: [facility] [address] [place], [address] MCV Auto Entitic volume (RBC) 93.3 fL Normal 81-99 [facility] Work Phone: MCV Entitic volume (RBC) 93.3 fL Normal 81-99 [facility] Work Phone: Comment on above: [facility] [address] [place], [address] Monocytes/100 WBC Auto (Bld) 8.7 % Normal 0-10 [facility] Work Phone: Comment on above: [facility] [address] [place], [address] Monocytes/100 WBC Auto (Bld) 8.7 % Normal 0-10 [facility] Work Phone: Neutrophils/100 WBC (Bld) 55.8 % Normal 47-70 [facility] Work Phone: Comment on above: [facility] [address] [place], [address] Neutrophils/100 WBC Auto (Bld) 55.8 % Normal 47-70 [facility] Work Phone: Platelet mean volume Auto Entitic volume (Bld) 9.5 fL Normal 6.2-12.0 [facility] Work Phone: Platelet mean volume Entitic volume (Bld) 9.5 fL Normal 6.2-12.0 Comprehensi Internal Medicine Work Phone: Comment on above: [facility] [address] [place], [address] Platelets #/vol (Bld) 217 10*3/uL Normal 150-450 Co [facility] Internal Medicine Work Phone: Comment on above: [facility] [address] [place], [address] Platelets Auto #/vol (Bld) 217 10*3/uL Normal 150-450 [facility] Work Phone: RBC #/vol (Bld) 3.90 {M/mm3} Abnormal 4.2-5.4 Compreh ensive Internal Medicine Work Phone: Comment on above: [facility] [address] [place], [address] RBC Auto #/vol (Bld) 3.90 {M/mm3} Abnormal 4.2-5.4 Co [facility] Internal [facility] Work Phone: RDW SD 40.2 fL Normal 35.1-43.9 [facility] Work Phone: Comment on above: [facility] [address] [place], [address] WBC #/vol (Bld) 6.0 10*3/uL Normal 4.4-11.0 Comprehe [facility] Internal Medicine Work Phone: Comment on above: [facility] [address] [place], [address] WBC Auto #/vol (Bld) 6.0 10*3/uL Normal 4.4-11.0 [facility] prehensive Internal Medicine Work Phone: CBC W/Diff, Automated 3.3 {X10_3/uL} Normal 2.0-7.7 [facility] Work Phone: CBC W/Diff, Automated 0.000 % Normal 0.0-0.9 [facility] prehensive Internal Medicine Work Phone: Comment on above: IG% - Immature Granu locytes (promyelocytes, myelocytes andmetamyelocytes) > 1% indicates that a LEFT SHIFT is Present. CBC W/Diff, Automated 40.2 fL Normal 35.1-43.9 [facility] prehensive Internal Medicine Work Phone: CBC W/Diff, Automated 1.87 {X10_3/ul} Normal 0.83-4.51 [facility] Work Phone: Comprehensive Metabolic Prof ilOrdered By: Cashier Courtesy Booth on 12-02-2016 Comprehensive metabolic 2000 panel 1.19 mg/dL Abnormal 0.55-1.02 Comprehensi ve Internal Medicine Work Phone: Comment on above: The validity of the calculated GFR AND GFRAA in patients over70 years has not been determined. Clinical correlation isessential. [facility] [address] [place], [place], [address] Comprehensive metabolic 2000 panel 17 mg/dL Normal 7-18 Comprehensi ve Internal Medicine Work Phone: Comment on above: [facility] [address] [place], [place], [address] Comprehensive metabolic 2000 panel 0.50 mg/dL Normal 0.20-1.00 Comprehensi ve Internal Medicine Work Phone: Comment on above: [facility] [address] [place], [place], [phone] Comprehensive metabolic 2000 panel 71 U/L Normal 45-117 Comprehensi ve Internal Medicine Work Phone: Comment on above: [facility] [address] [place], [place], [phone] Comprehensive metabolic 2000 panel 26 U/L Normal 15-37 Comprehensi ve Internal Medicine Work Phone: Comment on above: [facility] [address] [place], [place], [address] Comprehensive metabolic 2000 panel 4.3 mmol/L Normal 3.5-5.1 Comprehensi ve Internal Medicine Work Phone: Comment on above: [facility] [address] [place], [place], [phone] Comprehensive metabolic 2000 panel 99 mg/dL Normal 70-110 Comprehensi ve Internal Medicine Work Phone: Comment on above: [facility] [address] [place], [place], [phone] Comprehensive metabolic 2000 panel 106 mmol/L Normal 98-107 Comprehensi ve Internal Medicine Work Phone: Comment on above: [facility] [address] [place], [place], [id number] Comprehensive metabolic 2000 panel 9.2 mg/dL Normal 8.5-10.1 Comprehensi ve Internal Medicine Work Phone: Comment on above: [facility] [address] [place], [place], [id number] Comprehensive metabolic 2000 panel 1.0 {RATIO} Normal 0.9-2.4 Comprehensi ve Internal Medicine Work Phone: Comment on above: [facility] [address] [place], [place], [address] Comprehensive metabolic 2000 panel 3.7 g/dL Abnormal 2.3-3.5 Comprehensi ve Internal Medicine Work Phone: Comment on above: [facility] [address] [place], [place], [address] Comprehensive metabolic 2000 panel 8 1 Normal 5-15 Comprehensi ve Internal Medicine Work Phone: Comment on above: [facility] [address] [place], [place], [id number] Comprehensive metabolic 2000 panel 3.8 g/dL Normal 3.4-5.0 Comprehensi ve Internal Medicine Work Phone: Comment on above: [facility] [address] [place], [place], [address] Comprehensive metabolic 2000 panel 140 mmol/L Normal 136-145 Comprehensi ve Internal Medicine Work Phone: Comment on above: [facility] [address] [place], [place], [id number] Comprehensive metabolic 2000 panel 7.5 g/dL Normal 6.4-8.2 Comprehensi ve Internal Medicine Work Phone: Comment on above: [facility] [address] [place], [place], [address] Comprehensive metabolic 2000 panel 14.3 {RATIO} Normal 10-20 Comprehensi ve Internal Medicine Work Phone: Comment on above: [facility] [address] [place], [place], [address] Comprehensive metabolic 2000 panel 56 mL/min Abnormal Comprehensi ve Internal Medicine Work Phone: Comment on above: GFR Calc [facility] [address] [place], [place], [address] Comprehensive metabolic 2000 panel 26.0 mmol/L Normal 21.0-32.0 Comprehensi ve Internal Medicine Work Phone: Comment on above: [facility] [address] [place], [place], [address] Comprehensive metabolic 2000 panel 25 U/L Normal 12-78 Comprehensi ve Internal Medicine Work Phone: Comment on above: [facility] [address] [place], [place], [address] Comprehensive metabolic 2000 panel 47 mL/min Abnormal Comprehensi ve Internal Medicine Work Phone: Comment on above: Non- GFR Calc [facility] [address] [place], [place], [address] RENAL FUNCTION PANEL ([id number]) Ordered By: Cashier Courtesy Booth on 10-13-2016 Albumin mass conc 4.1 g/dL Normal 3.5-4.8 Compreh ensive Internal Medicine Work Phone: Comment on above: PATIENT WAS FASTINGP ERFORMED BY: DAYDAY [facility] Emnuer0902 [facility] [id number] Calcium mass conc 9.4 mg/dL Normal 8.7-10.3 Compreh ensive Internal Medicine Work Phone: Comment on above: PATIENT WAS FASTINGP ERFORMED BY: [facility] Xuzwvj8111 [facility] [id number] Chloride molar conc 105 mmol/L Normal 96-106 Compr ehensive Internal Medicine Work Phone: Comment on above: PATIENT WAS FASTINGP ERFORMED BY: CB [facility] Wrxiro3172 [address] RoadDublin [place] [id number] CO2 molar conc 23 mmol/L Normal 18-29 Comprehens burke Internal Medicine Work Phone: Comment on above: PATIENT WAS FASTINGP ERFORMED BY: CB [facility] Scelzy6592 [address]ann RoadDublin [place] [id number] Creatinine mass conc 1.11 mg/dL Abnormal 0.57-1.00 Comp [facility] Work Phone: Comment on above: PATIENT WAS FASTINGP ERFORMED BY: CB [facility] Awzyoi9223 [address]ann RoadDublin [place] [id number] GFR/1.73 sq M predicted among blacks CKD-EPI vol rate/area (S/P/Bld) 55 mL/min/1.73 Abnormal Comprehensiv e Internal Medicine Work Phone: Comment on above: PATIENT WAS FASTINGP ERFORMED BY: DAYDAY [facility] Oulszd3352 [address] RoadDublin [place] [id number] GFR/1.73 sq M predicted among non-blacks CKD-EPI vol rate/area (S/P/Bld) 47 mL/min/1.73 Abnormal Comprehensive Internal Medicine Work Phone: Comment on above: PATIENT WAS FASTINGP ERFORMED BY: DAYDAY [facility] Uaswjy6214 [address] RoadDublin [place] [id number] Glucose mass conc 93 mg/dL Normal 65-99 Compreh ensive Internal Medicine Work Phone: Comment on above: PATIENT WAS FASTINGP ERFORMED BY: CB [facility] Mikaxs3304 [address] RoadDublin [place] [id number] Phosphate mass conc 3.4 mg/dL Normal 2.5-4.5 Compr ensive Internal Medicine Work Phone: Comment on above: PATIENT WAS FASTINGP ERFORMED BY: CB [facility] Lqyqyl4359 [address] RoadDublin [place] [id number] Potassium molar conc 4.9 mmol/L Normal 3.5-5.2 Comp rehensive Internal Medicine Work Phone: Comment on above: PATIENT WAS FASTINGP ERFORMED BY: [facility] Lphpna5134 [facility] [id number] Sodium molar conc 143 mmol/L Normal 134-144 Compreh ensive Internal Medicine Work Phone: Comment on above: PATIENT WAS FASTINGP ERFORMED BY: [facility] Dfuevz4475 [facility] [id number] Urea nitrogen mass conc 21 mg/dL Normal 8-27 Comprehensive Internal Medicine Work Phone: Comment on above: PATIENT WAS FASTINGP ERFORMED BY: [facility] Agzurf1508 [facility] [id number] Urea nitrogen/Creatinine mass ratio 19 mg/mg Normal 12- Comprehensive Internal Medicine Work Phone: Comment on above: PATIENT WAS FASTINGP ERFORMED BY: [facility] Tbjnpi7225 [facility] [id number]-YNSJFWMMMEF-ONYOB (821 05)Ordered By: Cashier Courtesy Booth on 10-05-2016 AFP.tumor marker mass conc 5.3 ng/mL Normal 0.0-8.3 [facility] Internal Medicine Work Phone: Comment on above: Leslie ECLIA methodol ogy PATIENT WAS FASTINGP ERFORMED BY: [facility] Rjjzkb3734 [facility] [id number] BY: [address] [id number] Blood Glucose , Office (8296 2)Ordered By: Rox Huerta on 10-05-2016 Glucose Glucometer molar conc (BldC) 115 1 Normal [facility] Medicine Work Phone: CALCIFEDIOL ([id number])Ordered B y: Cashier Courtesy Booth on 10-05-2016 25-Hydroxyvitamin D2+25-Hydroxyvitamin D3 mass conc 54.9 ng/mL Normal 30.0-100.0 [facility] Internal Medicine Work Phone: Comment on above: Vitamin D deficiency has been defined by the [place] ofMedicine and an Endocrine Society practice guideline as alevel of serum 25-OH vitamin D less than 20 ng/mL (1,2).The Endocrine Society went on to further define vitamin Dinsufficiency as a level between 21 and 29 ng/mL (2).1. IOM ([place] of Medicine). 2010. Dietary reference intakes for calcium and D. [place]: The National Academies Press.2. Trevon MF, Sherrell JEFFERSON, Treva CORLEY, et al. Evaluation, treatment, and prevention of vitamin D deficiency: an Endocrine Society clinical practice guideline. JCEM. 2010; 96(7):1911-30. PATIENT WAS FASTINGP ERFORMED BY: Anonymous Youlin6370 [facility] [id number] BY: [employer] [address] [id number] CBC with auto diff ([id number])Or dered By: Cashier Courtesy Booth on 10-05-2016 Basophils #/vol (Bld) 0.0 {x10E3/uL} Normal 0.0-0.2 [facility] Medicine Work Phone: Comment on above: PATIENT WAS FASTINGP ERFORMED BY: Anonymous Youlin6370 [facility] [id number] BY: [employer] [address] [id number] Basophils Auto #/vol (Bld) 0.0 {x10E3/uL} Normal 0.0-0.2 [facility] Internal [facility] Work Phone: Basophils/100 WBC (Bld) 0 % Normal [facility] Work Phone: Comment on above: PATIENT WAS FASTINGP ERFORMED BY: [employer] Rcwkrt2082 [facility] [id number] BY: [employer] [address] [id number] Basophils/100 WBC Auto (Bld) 0 % Normal [facility] Work Phone: Eosinophils #/vol (Bld) 0.2 {x10E3/uL} Normal 0.0-0.4 [facility] Internal Medicine Work Phone: Comment on above: PATIENT WAS FASTINGP ERFORMED BY: CB [employer]70 [facility] [id number] BY: [employer] [id number] Eosinophils Auto #/vol (Bld) 0.2 {x10E3/uL} Normal 0.0-0.4 [facility] Work Phone: Eosinophils/100 WBC (Bld) 3 % Normal [facility] Work Phone: Comment on above: PATIENT WAS FASTINGP ERFORMED BY: DAYDAY [employer] Upstatelin6370 [facility] [id number] BY: [employer] [id number] Eosinophils/100 WBC Auto (Bld) 3 % Normal [facility] Work Phone: Erythrocyte distribution width Auto Ratio (RBC) 13.0 % Normal 12.3-15.4 [facility] Work Phone: Erythrocyte distribution width Ratio (RBC) 13.0 % Normal 12.3-15.4 [facility] Work Phone: Comment on above: PATIENT WAS FASTINGP ERFORMED BY: DAYDAY [employer]70 [facility] [id number] BY: [employer] [id number] Hematocrit Auto Volume Fraction (Bld) 36.9 % Normal 34.0-46.6 [facility] Internal Medicine Work Phone: Hematocrit Volume Fraction (Bld) 36.9 % Normal 34.0-46.6 [facility] Internal Medicine Work Phone: Comment on above: PATIENT WAS FASTINGP ERFORMED BY: Swoodoo70 [facility] [id number] BY: [employer] [id number] Hemoglobin mass conc (Bld) 12.4 g/dL Normal 11.1-15.9 [facility] Internal Medicine Work Phone: Comment on above: PATIENT WAS FASTINGP ERFORMED BY: DAYDAY [facility] Bozmit2103 [facility] [id number] BY: [address] [id number] Immature granulocytes #/vol (Bld) 0.0 {x10E3/uL} Normal 0.0-0.1 [facility] Work Phone: Comment on above: PATIENT WAS FASTINGP ERFORMED BY: DAYDAY [facility] Iopolw9421 [facility] [id number] BY: [address] [id number] Immature granulocytes/100 WBC (Bld) 0 % Normal [facility] Work Phone: Comment on above: PATIENT WAS FASTINGP ERFORMED BY: DAYDAY [facility] Nwmfjz0374 [facility] [id number] BY: [address] [id number] Lymphocytes #/vol (Bld) 1.8 {x10E3/uL} Normal 0.7-3.1 [facility] Work Phone: Comment on above: PATIENT WAS FASTINGP ERFORMED BY: DAYDAY [facility] SomersetWpzmrl8452 [facility] [id number] BY: [address] [id number] Lymphocytes Auto #/vol (Bld) 1.8 {x10E3/uL} Normal 0.7-3.1 [facility] Work Phone: Lymphocytes/100 WBC (Bld) 25 % Normal [facility] Work Phone: Comment on above: PATIENT WAS FASTINGP ERFORMED BY: DAYDAY [facility] Cwtxce0100 [facility] [id number] BY: [address] [id number] Lymphocytes/100 WBC Auto (Bld) 25 % Normal [facility] Work Phone: MCH Auto Entitic mass (RBC) 30.8 pg Normal 26.6-33.0 [facility] Work Phone: MCH Entitic mass (RBC) 30.8 pg Normal 26.6-33.0 [facility] Work Phone: Comment on above: PATIENT WAS FASTINGP ERFORMED BY: [employer] [id number] BY: [address] [id number] MCHC Auto mass conc (RBC) 33.6 g/dL Normal 31.5-35.7 [facility] Work Phone: MCHC mass conc (RBC) 33.6 g/dL Normal 31.5-35.7 [facility] Internal Medicine Work Phone: Comment on above: PATIENT WAS FASTINGP ERFORMED BY: [employer] [id number] BY: [address] [id number] MCV Auto Entitic volume (RBC) 92 fL Normal 79-97 [facility] Medicine Work Phone: MCV Entitic volume (RBC) 92 fL Normal 79-97 [facility] Medicine Work Phone: Comment on above: PATIENT WAS FASTINGP ERFORMED BY: [employer] [id number] BY: [address] [id number] Monocytes #/vol (Bld) 0.6 {x10E3/uL} Normal 0.1-0.9 [facility] Internal Medicine Work Phone: Comment on above: PATIENT WAS FASTINGP ERFORMED BY: [facility] Memorial HospitalBlack Fox Meadery Corp[address] [id number] BY: [address] [id number] Monocytes Auto #/vol (Bld) 0.6 {x10E3/uL} Normal 0.1-0.9 [facility] Work Phone: Monocytes/100 WBC (Bld) 8 % Normal [facility] Work Phone: Comment on above: PATIENT WAS FASTINGP ERFORMED BY: [employer] Zommpd3158 [facility] [id number] BY: [employer] [id number] Monocytes/100 WBC Auto (Bld) 8 % Normal [facility] Work Phone: Neutrophils #/vol (Bld) 4.6 {x10E3/uL} Normal 1.4-7.0 [facility] Work Phone: Comment on above: PATIENT WAS FASTINGP ERFORMED BY: Anonymous You[address] [id number] BY: [employer] [id number] Neutrophils Auto #/vol (Bld) 4.6 {x10E3/uL} Normal 1.4-7.0 [facility] Work Phone: Neutrophils/100 WBC (Bld) 64 % Normal [facility] Work Phone: Comment on above: PATIENT WAS FASTINGP ERFORMED BY: Anonymous You[address] [id number] BY: [employer] [id number] Neutrophils/100 WBC Auto (Bld) 64 % Normal [facility] Work Phone: Platelets #/vol (Bld) 256 {x10E3/uL} Normal 150-379 [facility] Work Phone: Comment on above: PATIENT WAS FASTINGP ERFORMED BY: [employer] [id number] BY: [address] [id number] Platelets Auto #/vol (Bld) 256 {x10E3/uL} Normal 150-379 [facility] Internal Medicine Work Phone: RBC #/vol (Bld) 4.03 {x10E6/uL} Normal 3.77-5.28 [facility] Work Phone: Comment on above: PATIENT WAS FASTINGP ERFORMED BY: Swood[employer]70 [place] [employer]Former[employer] [facility] [id number] BY: Sq[employer] [id number] RBC Auto #/vol (Bld) 4.03 {x10E6/uL} Normal 3.77-5.28 [facility] Work Phone: WBC #/vol (Bld) 7.2 {x10E3/uL} Normal 3.4-10.8 [facility] Work Phone: Comment on above: PATIENT WAS FASTINGP ERFORMED BY: OctoshapeFormerly [facility] [id number] BY: Sqoot[address] [id number] WBC Auto #/vol (Bld) 7.2 {x10E3/uL} Normal 3.4-10.8 [facility] Work Phone: FOLIC ACID SERUM (07985)Orde red By: Cashier Courtesy Booth on 10-05-2016 Folate mass conc ng/mL Normal Comprehe nsive Internal Medicine Work Phone: Comment on above: A serum folate juany ntration of less than 3.1 ng/mL isconsidered to represent clinical deficiency. PATIENT WAS FASTINGP ERFORMED BY: Swoodoo70 [place] [employer]Former[employer] [facility] [id number] BY: Sqoot[address] [id number] HgA1C , Office (50491)Ordere d By: Rox Huerta on 10-05-2016 Hemoglobin A1c/Hemoglobin.total mass fraction (Bld) 5.3 % Normal 4.6 - 7.1 Comprehensiv e Internal Medicine Work Phone: LIPID PANEL (18171)Ordered B y: Cashier Courtesy Booth on 10-05-2016 Cholesterol in HDL mass conc 61 mg/dL Normal [facility] Work Phone: Comment on above: PATIENT WAS FASTINGP ERFORMED BY: CB [facility] Qnfnho2461 [address] RoadDublin [place] [id number] BY: [facility]Co[address] [id number] Cholesterol in LDL mass conc 155 mg/dL Abnormal 0-99 [facility] Work Phone: Comment on above: PATIENT WAS FASTINGP ERFORMED BY: CB [facility] Oalcmx8576 Vann RoadDublin [place] [id number] BY: [facility]Co[address] [id number] Cholesterol in LDL/Cholesterol in HDL mass ratio 2.5 {ratio_units} Normal 0.0-3.2 [facility] Work Phone: Comment on above: LDL/HDL Ratio Men Wo men 1/2 Avg.Risk 1.0 1.5 Avg.Risk 3.6 3.2 2X Avg.Risk 6.2 5.0 3X Avg.Risk 8.0 6.1 PATIENT WAS FASTINGP ERFORMED BY: CB [facility] Jlxfrb[address] [facility] [place] [id number] BY: [facility] [id number] Cholesterol in VLDL mass conc 18 mg/dL Normal 5-40 [facility] Work Phone: Comment on above: PATIENT WAS FASTINGP ERFORMED BY: CB [facility] Iuwuyt1165 [address] RoadDublin [place] [id number] BY: [facility] [address] [id number] Cholesterol mass conc 234 mg/dL Abnormal 100-199 [facility] prehensive Internal Medicine Work Phone: Comment on above: PATIENT WAS FASTINGP ERFORMED BY: CB [facility] Goggwt3034 [address] RoadDublin [place] [id number] BY: Lab[address] [id number] Triglyceride mass conc 89 mg/dL Normal 0-149 [facility] Internal Medicine Work Phone: Comment on above: PATIENT WAS FASTINGP ERFORMED BY: DAYDAY [facility] Uksebb80[address] [facility] [place] [id number] BY: [address] [id number] METABOLIC PANEL, COMPREHENSI VE (65569)Ordered By: Cashier Courtesy Booth on 10-05-2016 Albumin mass conc 4.5 g/dL Normal 3.5-4.8 Compreh [facility] Internal Medicine Work Phone: Comment on above: PATIENT WAS FASTINGP ERFORMED BY: DAYDAY [facility] Jjzxfu7215 [facility] [id number] BY: [address] [id number] Albumin/Globulin mass ratio 1.6 {ratio} Normal 1.2-2.2 [facility] Work Phone: Comment on above: PATIENT WAS FASTINGP ERFORMED BY: DAYDAY [facility] Nalozf4539 [facility] [id number] BY: Lab[address] [id number] ALP enzyme act/vol 66 [iU]/L Normal 39-117 [facility] Internal Medicine Work Phone: Comment on above: PATIENT WAS FASTINGP ERFORMED BY: CB [facility] Oshkir3902 [facility] [id number] BY: Lab[address] [id number] ALT enzyme act/vol 19 [iU]/L Normal 0-32 [facility] Internal Medicine Work Phone: Comment on above: PATIENT WAS FASTINGP ERFORMED BY: CB [facility] Cknkcc3146 [facility] [id number] BY: Lab[address] [id number] AST enzyme act/vol 32 [iU]/L Normal 0-40 Compre hensive Internal Medicine Work Phone: Comment on above: PATIENT WAS FASTINGP ERFORMED BY: DAYDAY [facility] Ykcdeh8933 [address] [facility] [id number] BY: [facility]Co[address] [id number] Bilirubin mass conc 0.6 mg/dL Normal 0.0-1.2 Compr ehensive Internal Medicine Work Phone: Comment on above: PATIENT WAS FASTINGP ERFORMED BY: DAYDAY [facility] Vkfkxg5328 [address] [facility] [id number] BY: [facility] [id number] Calcium mass conc 10.3 mg/dL Normal 8.7-10.3 Compreh ensive Internal Medicine Work Phone: Comment on above: PATIENT WAS FASTINGP ERFORMED BY: DAYDAY [facility] Dtobkd2829 [facility] [id number] BY: [facility] [id number] Chloride molar conc 99 mmol/L Normal 96-106 Compr ensive Internal Medicine Work Phone: Comment on above: PATIENT WAS FASTINGP ERFORMED BY: DAYDAY [facility] Cjkszt7396 [facility] [id number] BY: [facility] [id number] CO2 molar conc 22 mmol/L Normal 18-29 Comprehens burke Internal Medicine Work Phone: Comment on above: PATIENT WAS FASTINGP ERFORMED BY: CB [facility] Qbvyvh6281 [facility] [facility] [id number] BY: Lab[address] [id number] Creatinine mass conc 1.03 mg/dL Abnormal 0.57-1.00 Comp rehensive Internal Medicine Work Phone: Comment on above: PATIENT WAS FASTINGP ERFORMED BY: [facility] Agjbpi7150 [facility] [id number] BY: [address] [id number] GFR/1.73 sq M predicted among blacks CKD-EPI vol rate/area (S/P/Bld) 60 mL/min/1.73 Normal Comprehensiv e Internal Medicine Work Phone: Comment on above: PATIENT WAS FASTINGP ERFORMED BY: [facility] Ctxrnw6172 [facility] [id number] BY: [address] [id number] GFR/1.73 sq M predicted among non-blacks CKD-EPI vol rate/area (S/P/Bld) 52 mL/min/1.73 Abnormal [facility] Work Phone: Comment on above: PATIENT WAS FASTINGP ERFORMED BY: [facility] Nusbiz3857 [facility] [id number] BY: [address] [id number] Globulin Calculated mass conc (S) 2.8 g/dL Normal 1.5-4.5 [facility] Work Phone: Globulin mass conc (S) 2.8 g/dL Normal 1.5-4.5 [facility] Work Phone: Comment on above: PATIENT WAS FASTINGP ERFORMED BY: [facility] Sojzki0164 [facility] [id number] BY: Lab[address] [id number] Glucose mass conc 91 mg/dL Normal 65-99 Compreh ensive Internal Medicine Work Phone: Comment on above: PATIENT WAS FASTINGP ERFORMED BY: [facility] Uxjhtr6209 [facility] [id number] BY: [address] [id number] Potassium molar conc 5.3 mmol/L Abnormal 3.5-5.2 Comp rehensive Internal Medicine Work Phone: Comment on above: PATIENT WAS FASTINGP ERFORMED BY: DAYDAY [facility] Vqizfo2866 [facility] [id number] BY: [facility] [id number] Protein mass conc 7.3 g/dL Normal 6.0-8.5 Compreh ensive Internal Medicine Work Phone: Comment on above: PATIENT WAS FASTINGP ERFORMED BY: CB [facility] Eynjad3519 [facility] [id number] BY: [facility] [id number] Sodium molar conc 138 mmol/L Normal 134-144 Compreh ensive Internal Medicine Work Phone: Comment on above: PATIENT WAS FASTINGP ERFORMED BY: CB [facility] Yxjubx7624 [facility] [id number] BY: [facility] [id number] Urea nitrogen mass conc 17 mg/dL Normal 8-27 [facility] Work Phone: Comment on above: PATIENT WAS FASTINGP ERFORMED BY: CB [facility] Btljoz5924 [facility] [id number] BY: [facility] [id number] Urea nitrogen/Creatinine mass ratio 17 mg/mg Normal 12-28 [facility] Work Phone: Comment on above: PATIENT WAS FASTINGP ERFORMED BY: CB [facility] Hzgunl4803 [address] [facility] [place] [id number] BY: Lab[address] [id number] MICROALBUMINOrdered By: Syst em [employer] Referral Clerk on 10-05-2016 Albumin DL <= 20 mg/L mass conc (U) 3.5 ug/mL Normal [facility] Work Phone: Comment on above: PATIENT WAS FASTINGP ERFORMED BY: [facility] Zzsbog5745 [facility] [id number] BY: [address] [id number] Albumin/Creatinine mass ratio (U) 12.1 {mg/g_creat} Normal 0.0-30.0 [facility] Work Phone: Comment on above: PATIENT WAS FASTINGP ERFORMED BY: CB [facility] Gkjpfe5925 [facility] [id number] BY: [address] [id number] Creatinine mass conc (U) 28.9 mg/dL Normal [facility] Work Phone: Comment on above: PATIENT WAS FASTINGP ERFORMED BY: [facility] Jtsriq3042 [facility] [id number] BY: [address] [id number] Methymalonic Acid, Serum (83 921)Ordered By: Cashier Courtesy Booth on 10-05-2016 Methylmalonate molar conc 291 nmol/L Normal 0-378 [facility] Work Phone: Comment on above: PATIENT WAS FASTINGP ERFORMED BY: [facility] Rbrans5970 [facility] [id number] BY: [address] [id number] Microscopic ExaminationOrder ed By: Cashier Courtesy Booth on 10-05-2016 Bacteria LM.HPF #/area (Urine sed) None seen Normal [facility] Work Phone: Comment on above: PATIENT WAS FASTINGP ERFORMED BY: CB [facility] Gasnbi2225 [facility] [id number] BY: [address] [id number] Epithelial cells LM.HPF #/area (Urine sed) None seen Normal 0 - 10 [facility] Work Phone: Comment on above: PATIENT WAS FASTINGP ERFORMED BY: [facility] Dtcnec1695 [facility] [id number] BY: [address] [id number] Mucus LM Ql (Urine sed) Present Normal [facility] Work Phone: Mucus Ql (Urine sed) Present Normal Comp rehensive Internal Medicine Work Phone: Comment on above: PATIENT WAS FASTINGP ERFORMED BY: [facility] Vmviwh2167 [facility] [id number] BY: [address] [id number] RBC LM.HPF #/area (Urine sed) 0-2 Normal 0 - 2 [facility] Work Phone: Comment on above: PATIENT WAS FASTINGP ERFORMED BY: [facility] [employer] Dlvwej1934 [facility] [id number] BY: [address] [id number] WBC LM.HPF #/area (Urine sed) /[HPF] Abnormal 0 - 5 [facility] Work Phone: Comment on above: PATIENT WAS FASTINGP ERFORMED BY: [facility] Izpedo6189 [facility] [id number] BY: [address] [id number] TSH ([id number])Ordered By: Syste m [employer]porary Help [employer] Referral Clerk on 10-05-2016 Thyrotropin Qn 3.320 {uIU/mL} Normal 0.450-4.50 0 [facility] Work Phone: Comment on above: PATIENT WAS FASTINGP ERFORMED BY: [facility] Gwrzio7984 [facility] [id number] BY: [address] [id number] URINALYSIS, W/ MICRO ([id number]) Ordered By: Cashier Courtesy Booth on 10-05-2016 Appearance Nom (U) Clear Normal Compre hensive [facility] Medicine Work Phone: Comment on above: PATIENT WAS FASTINGP ERFORMED BY: DAYDAY [facility] Vuzbsy0604 Vann RoadDublin [place] [id number] BY: [facility] [address] [id number] Bilirubin Ql (U) Negative Normal Comprehe nsive Internal Medicine Work Phone: Comment on above: PATIENT WAS FASTINGP ERFORMED BY: CB [facility] Iquyjy8059 Vann RoadDublin [place] [id number] BY: [facility] [address] [id number] Color Nom (U) Yellow Normal Comprehensi ve Internal Medicine Work Phone: Comment on above: PATIENT WAS FASTINGP ERFORMED BY: DAYDAY [facility] Kiyzfl4343 Vann RoadDublin [place] [id number] BY: [facility] [address] [id number] Glucose Ql (U) Negative Normal Comprehens [facility] Work Phone: Comment on above: PATIENT WAS FASTINGP ERFORMED BY: DAYDAY [facility] Medrzx6160 [address]ann RoadDublin [place] [id number] BY: [facility] [address] [id number] Hemoglobin Ql (U) Negative Normal Compreh ensive Internal Medicine Work Phone: Comment on above: PATIENT WAS FASTINGP ERFORMED BY: CB [facility] Mkjitd9372 Vann RoadDublin [place] [id number] BY: [facility] [id number] Hemoglobin Test strip Ql (U) Negative Normal [facility] Work Phone: Ketones Ql (U) Negative Normal Comprehens [facility] Work Phone: Comment on above: PATIENT WAS FASTINGP ERFORMED BY: DAYDAY [facility] Hsgpua8242 Vann RoadDublin [place] [id number] BY: [address] [id number] Leukocyte esterase Test strip Ql (U) 3+ Abnormal [facility] Work Phone: Comment on above: PATIENT WAS FASTINGP ERFORMED BY: DAYDAY [facility] Cbnmkz4740 [address] [facility] [id number] BY: [address] [id number] Microscopic observation LM Nom (Urine sed) See below: Normal [facility] Work Phone: Comment on above: Microscopic was komal cated and was performed. PATIENT WAS FASTINGP ERFORMED BY: DAYDAY [facility] Fegyog5953 [facility] [id number] BY: [address] [id number] Nitrite Ql (U) Negative Normal Comprehens [facility] Work Phone: Comment on above: PATIENT WAS FASTINGP ERFORMED BY: DAYDAY [facility] Vesvgr5221 [address] [facility] [id number] BY: [address] [id number] Nitrite Test strip Ql (U) Negative Normal [facility] Work Phone: pH (U) 7.0 [pH] Normal 5.0-7.5 [facility] Work Phone: Comment on above: PATIENT WAS FASTINGP ERFORMED BY: [facility] Erflfx7354 [address] [facility] [id number] BY: [address] [id number] pH Test strip (U) 7.0 [pH] Normal 5.0-7.5 Compreh ensive [facility] Medicine Work Phone: Protein Ql (U) Negative Normal Comprehens [facility] Work Phone: Comment on above: PATIENT WAS FASTINGP ERFORMED BY: [facility] Xvpwgq6991 [address] [facility] [id number] BY: [employer] [id number] Protein Test strip Ql (U) Negative Normal [facility] Work Phone: Specific gravity Relative Density (U) 1.008 1 Normal 1.005-1.03 0 [facility] Work Phone: Comment on above: PATIENT WAS FASTINGP ERFORMED BY: [employer] Wuxfpt0816 [address] [facility] [place] [id number] BY: [employer] [id number] Urobilinogen Test strip mass conc (U) 0.2 mg/dL Normal 0.2-1.0 Comprehensiv e Internal Medicine Work Phone: Comment on above: PATIENT WAS FASTINGP ERFORMED BY: [employer] Sompharmaceuticalsblin [place] [id number] BY: [employer] [id number] VITAMIN B-12 (CYANOCOBALAMIN ) (11282)Ordered By: Cashier Courtesy Booth on 10-05-2016 Cobalamin (Vitamin B12) mass conc 356 pg/mL Normal 211-946 [facility] Work Phone: Comment on above: PATIENT WAS FASTINGP ERFORMED BY: [place] [employer] Max6370 [address] [facility] [id number] BY: [employer] [id number] T3, FREE (TRIDOTHYRONINE) (3 2536)Ordered By: Cashier Courtesy Booth on 05-29-2016 T3 free mass conc 2.1 pg/mL Normal 2.0-4.4 Compreh ensive Internal Medicine Work Phone: Comment on above: PATIENT NOT FASTINGP ERFORMED BY: [employer] Pzpdsq0627 [address] RoadDublin [place] [id number] T4, FREE (THYROXINE) (09402) Ordered By: Cashier Courtesy Booth on 05-29-2016 T4 free mass conc 1.67 ng/dL Normal 0.82-1.77 Compreh ensive Internal Medicine Work Phone: Comment on above: PATIENT NOT FASTINGP ERFORMED BY: [employer] Qwksex9761 [facility] [id number] TSH ([id number])Ordered By: Ying m Temporary Help Agency Referral Clerk on 05-29-2016 Thyrotropin Qn 1.640 {uIU/mL} Normal 0.450-4.50 0 [facility] Work Phone: Comment on above: PATIENT NOT FASTINGP ERFORMED BY: [facility] Eduhab3931 [facility] [id number] CALCIFIDIOL (56503) VIT D 25 Ordered By: Cashier Courtesy Booth on 02-08-2016 25-Hydroxyvitamin D2+25-Hydroxyvitamin D3 mass conc 27.5 ng/mL Abnormal 30.0-100.0 [facility] Work Phone: Comment on above: Vitamin D deficiency has been defined by the [place] of[facility] Hospitalcine and an Endocrine Society practice guideline as alevel of serum 25-OH vitamin D less than 20 ng/mL (1,2).The Endocrine Society went on to further define vitamin Dinsufficiency as a level between 21 and 29 ng/mL (2).1. IOM ([place] of Medicine). 2010. Dietary reference intakes for calcium and D. [place]: The National Academies Press.2. Trevon MF, Sherrell JEFFERSON, Treva CORLEY, et al. Evaluation, treatment, and prevention of vitamin D deficiency: an Endocrine Society clinical practice guideline. JCEM. 2010; 96(7):1911-30. PATIENT WAS FASTINGP ERFORMED BY: [employer] Max6370 [facility] [id number] CBC W/AUTO DIFF WBC (92077)O rdered By: Cashier Courtesy Booth on 02-08-2016 Basophils #/vol (Bld) 0.0 {x10E3/uL} Normal 0.0-0.2 [facility] Work Phone: Comment on above: PATIENT WAS FASTINGP ERFORMED BY: [facility] Nnhvvj0165 [facility] [place] [id number] Basophils Auto #/vol (Bld) 0.0 {x10E3/uL} Normal 0.0-0.2 [facility] Work Phone: Basophils/100 WBC (Bld) 1 % Normal [facility] Work Phone: Comment on above: PATIENT WAS FASTINGP ERFORMED BY: DAYDAY [facility]Va [facility]6370 [facility] [id number] Basophils/100 WBC Auto (Bld) 1 % Normal [facility] Work Phone: Eosinophils #/vol (Bld) 0.2 {x10E3/uL} Normal 0.0-0.4 [facility] Work Phone: Comment on above: PATIENT WAS FASTINGP ERFORMED BY: [facility] GrommetRobert [facility] SomersetYfeyqu5042 [facility] [id number] Eosinophils Auto #/vol (Bld) 0.2 {x10E3/uL} Normal 0.0-0.4 [facility] Work Phone: Eosinophils/100 WBC (Bld) 4 % Normal [facility] Work Phone: Comment on above: PATIENT WAS FASTINGP ERFORMED BY: [facility] SoftwareVa [facility]6370 [facility] [id number] Eosinophils/100 WBC Auto (Bld) 4 % Normal [facility] Work Phone: Erythrocyte distribution width Auto Ratio (RBC) 12.9 % Normal 12.3-15.4 [facility] Work Phone: Erythrocyte distribution width Ratio (RBC) 12.9 % Normal 12.3-15.4 [facility] Work Phone: Comment on above: PATIENT WAS FASTINGP ERFORMED BY: [place] 1213070 [facility] [id number] Hematocrit Auto Volume Fraction (Bld) 36.1 % Normal 34.0-46.6 Comprehens [facility] Work Phone: Hematocrit Volume Fraction (Bld) 36.1 % Normal 34.0-46.6 [facility] Work Phone: Comment on above: PATIENT WAS FASTINGP ERFORMED BY: [facility]6370 [address] [facility] [id number] Hemoglobin mass conc (Bld) 12.2 g/dL Normal 11.1-15.9 [facility] Work Phone: Comment on above: PATIENT WAS FASTINGP ERFORMED BY: [place] 1213070 [facility] [id number] Immature granulocytes #/vol (Bld) 0.0 {x10E3/uL} Normal 0.0-0.1 [facility] Work Phone: Comment on above: PATIENT WAS FASTINGP ERFORMED BY: [place] 1213070 [facility] [id number] Immature granulocytes/100 WBC (Bld) 0 % Normal [facility] Work Phone: Comment on above: PATIENT WAS FASTINGP ERFORMED BY: [place] 1213070 [facility] [id number] Lymphocytes #/vol (Bld) 1.2 {x10E3/uL} Normal 0.7-3.1 [facility] Work Phone: Comment on above: PATIENT WAS FASTINGP ERFORMED BY: [place] 1213070 [facility] [id number] Lymphocytes Auto #/vol (Bld) 1.2 {x10E3/uL} Normal 0.7-3.1 [facility] Work Phone: Lymphocytes/100 WBC (Bld) 24 % Normal [facility] Work Phone: Comment on above: PATIENT WAS FASTINGP ERFORMED BY: [place] 1213070 [facility] [id number] Lymphocytes/100 WBC Auto (Bld) 24 % Normal [facility] Work Phone: MCH Auto Entitic mass (RBC) 31.1 pg Normal 26.6-33.0 [facility] Work Phone: MCH Entitic mass (RBC) 31.1 pg Normal 26.6-33.0 [facility] Work Phone: Comment on above: PATIENT WAS FASTINGP ERFORMED BY: DAYDAY [facility] Nqswzv3990 [facility] [id number] MCHC Auto mass conc (RBC) 33.8 g/dL Normal 31.5-35.7 [facility] Work Phone: MCHC mass conc (RBC) 33.8 g/dL Normal 31.5-35.7 Comp rehensive Internal Medicine Work Phone: Comment on above: PATIENT WAS FASTINGP ERFORMED BY: DAYDAY [place] 9493170 [facility] [id number] MCV Auto Entitic volume (RBC) 92 fL Normal 79-97 [facility] Work Phone: MCV Entitic volume (RBC) 92 fL Normal 79-97 [facility] Work Phone: Comment on above: PATIENT WAS FASTINGP ERFORMED BY: DAYDAY [facility] ComplexKarina Ohqphm0719 [facility] [id number] Monocytes #/vol (Bld) 0.4 {x10E3/uL} Normal 0.1-0.9 [facility] Work Phone: Comment on above: PATIENT WAS FASTINGP ERFORMED BY: DAYDAY [facility] Meutmf6089 [facility] [id number] Monocytes Auto #/vol (Bld) 0.4 {x10E3/uL} Normal 0.1-0.9 [facility] Work Phone: Monocytes/100 WBC (Bld) 8 % Normal [facility] Work Phone: Comment on above: PATIENT WAS FASTINGP ERFORMED BY: DAYDAY [facility]6370 [facility] [id number] Monocytes/100 WBC Auto (Bld) 8 % Normal [facility] Work Phone: Neutrophils #/vol (Bld) 3.3 {x10E3/uL} Normal 1.4-7.0 [facility] Work Phone: Comment on above: PATIENT WAS FASTINGP ERFORMED BY: DAYDAY [facility] Nympnb7140 [facility] [id number] Neutrophils Auto #/vol (Bld) 3.3 {x10E3/uL} Normal 1.4-7.0 [facility] Work Phone: Neutrophils/100 WBC (Bld) 63 % Normal [facility] Work Phone: Comment on above: PATIENT WAS FASTINGP ERFORMED BY: DAYDAY [facility] Fqxlff3613 [facility] [id number] Neutrophils/100 WBC Auto (Bld) 63 % Normal [facility] Work Phone: Platelets #/vol (Bld) 265 {x10E3/uL} Normal 150-379 [facility] Work Phone: Comment on above: PATIENT WAS FASTINGP ERFORMED BY: DAYDAY [facility] Nccbwz4533 [facility] [id number] Platelets Auto #/vol (Bld) 265 {x10E3/uL} Normal 150-379 [facility] Work Phone: RBC #/vol (Bld) 3.92 {x10E6/uL} Normal 3.77-5.28 [facility] Work Phone: Comment on above: PATIENT WAS FASTINGP ERFORMED BY: DAYDAY [facility] Hxgats1544 [facility] [id number] RBC Auto #/vol (Bld) 3.92 {x10E6/uL} Normal 3.77-5.28 [facility] Work Phone: WBC #/vol (Bld) 5.2 {x10E3/uL} Normal 3.4-10.8 [facility] Work Phone: Comment on above: PATIENT WAS FASTINGP ERFORMED BY: [facility]6370 [facility] [id number] WBC Auto #/vol (Bld) 5.2 {x10E3/uL} Normal 3.4-10.8 [facility] Work Phone: LIPID PANEL ([id number])Ordered B y: Cashier Courtesy Booth on 02-08-2016 Cholesterol in HDL mass conc 49 mg/dL Normal [facility] Work Phone: Comment on above: PATIENT WAS FASTINGP ERFORMED BY: DAYDAY Parks6370 [facility] [id number] Cholesterol in LDL mass conc 142 mg/dL Abnormal 0-99 [facility] Work Phone: Comment on above: PATIENT WAS FASTINGP ERFORMED BY: DAYDAY Parks6370 [facility] [id number] Cholesterol in LDL/Cholesterol in HDL mass ratio 2.9 {ratio_units} Normal 0.0-3.2 [facility] Work Phone: Comment on above: LDL/HDL Ratio Men Wo men 1/2 Avg.Risk 1.0 1.5 Avg.Risk 3.6 3.2 2X Avg.Risk 6.2 5.0 3X Avg.Risk 8.0 6.1 PATIENT WAS FASTINGP ERFORMED BY: DAYDAY Parks6370 [facility] [id number] Cholesterol in VLDL mass conc 16 mg/dL Normal 5-40 [facility] Work Phone: Comment on above: PATIENT WAS FASTINGP ERFORMED BY: DAYDAY Parks6370 [facility] [id number] Cholesterol mass conc 207 mg/dL Abnormal 100-199 Com prehensive Internal Medicine Work Phone: Comment on above: PATIENT WAS FASTINGP ERFORMED BY: DAYDAY Parks6370 [facility] [id number] Triglyceride mass conc 80 mg/dL Normal 0-149 [facility] Work Phone: Comment on above: PATIENT WAS FASTINGP ERFORMED BY: DAYDAY Dangelolin6370 [facility] [id number] METABOLIC PANEL, COMPREHENSI VE (48384)Ordered By: Cashier Courtesy Booth on 02-08-2016 Albumin mass conc 4.1 g/dL Normal 3.5-4.8 Compreh ensive Internal Medicine Work Phone: Comment on above: PATIENT WAS FASTINGP ERFORMED BY: DAYDAY Dangelolin6370 [address] Road[address]ublin [place] [id number] Albumin/Globulin mass ratio 1.5 {ratio} Normal 1.1-2.5 [facility] Internal Medicine Work Phone: Comment on above: PATIENT WAS FASTINGP ERFORMED BY: [facility] Ogegls6539 Vann RoadDublin [place] [id number] ALP enzyme act/vol 73 [iU]/L Normal 39-117 [facility] Internal Medicine Work Phone: Comment on above: PATIENT WAS FASTINGP ERFORMED BY: [facility] Uscmyy5399 [address]ann RoadDublin [place] [id number] ALT enzyme act/vol 14 [iU]/L Normal 0-32 [facility] Internal Medicine Work Phone: Comment on above: PATIENT WAS FASTINGP ERFORMED BY: [facility] Zzvpez9897 [address] RoadDublin [place] [id number] AST enzyme act/vol 25 [iU]/L Normal 0-40 [facility] Internal Medicine Work Phone: Comment on above: PATIENT WAS FASTINGP ERFORMED BY: [facility] Ercpgq3350 [address] RoadDublin [place] [id number] Bilirubin mass conc 0.4 mg/dL Normal 0.0-1.2 [facility] Internal Medicine Work Phone: Comment on above: PATIENT WAS FASTINGP ERFORMED BY: [facility] Zisqpo8803 [address] RoadDublin [place] [id number] Calcium mass conc 9.9 mg/dL Normal 8.7-10.3 Compreh [facility] Internal Medicine Work Phone: Comment on above: PATIENT WAS FASTINGP ERFORMED BY: [facility] Iwjtbf5666 [address] RoadDublin [place] [id number] Chloride molar conc 100 mmol/L Normal 97-106 [facility] Internal Medicine Work Phone: Comment on above: PATIENT WAS FASTINGP ERFORMED BY: [facility] Xtgplu1613 [address] RoadDublin [place] [id number] CO2 molar conc 22 mmol/L Normal 18-29 Comprehens [facility] Work Phone: Comment on above: PATIENT WAS FASTINGP ERFORMED BY: DAYDAY LabRomaine Parks6370 [address] [facility] [id number] Creatinine mass conc 0.98 mg/dL Normal 0.57-1.00 Comp rehensive Internal Medicine Work Phone: Comment on above: PATIENT WAS FASTINGP ERFORMED BY: DAYDAY [facility] Ijljng9602 [address] [facility] [id number] GFR/1.73 sq M predicted among blacks CKD-EPI vol rate/area (S/P/Bld) 64 mL/min/1.73 Normal Comprehensiv e Internal Medicine Work Phone: Comment on above: PATIENT WAS FASTINGP ERFORMED BY: DAYDAY Dangelolin6370 [facility] [id number] GFR/1.73 sq M predicted among non-blacks CKD-EPI vol rate/area (S/P/Bld) 55 mL/min/1.73 Abnormal [facility] Work Phone: Comment on above: PATIENT WAS FASTINGP ERFORMED BY: DAYDAY Paul Thattb2924 [facility] [id number] Globulin Calculated mass conc (S) 2.8 g/dL Normal 1.5-4.5 [facility] Work Phone: Globulin mass conc (S) 2.8 g/dL Normal 1.5-4.5 [facility] Work Phone: Comment on above: PATIENT WAS FASTINGP ERFORMED BY: DAYDAY [facility] Zblwqn3427 [facility] [id number] Glucose mass conc 91 mg/dL Normal 65-99 Compreh ensive Internal Medicine Work Phone: Comment on above: PATIENT WAS FASTINGP ERFORMED BY: DAYDAY LabKarina Xenllx6622 [facility] [id number] Potassium molar conc 4.6 mmol/L Normal 3.5-5.2 Comp rehensive Internal Medicine Work Phone: Comment on above: PATIENT WAS FASTINGP ERFORMED BY: DAYDAY Dangelolin6370 [address] RoadDublin [place] [id number] Protein mass conc 6.9 g/dL Normal 6.0-8.5 Compreh ensive Internal Medicine Work Phone: Comment on above: PATIENT WAS FASTINGP ERFORMED BY: DAYDAY Parks6370 [address] RoadDublin [place] [id number] Sodium molar conc 138 mmol/L Normal 136-144 Compreh ensive Internal Medicine Work Phone: Comment on above: PATIENT WAS FASTINGP ERFORMED BY: DAYDAY Parks6370 [address]ublin [place] [id number] Urea nitrogen mass conc 15 mg/dL Normal - [facility] Work Phone: Comment on above: PATIENT WAS FASTINGP ERFORMED BY: DAYDAY Parks6370 [address] RoadDuin [place] [id number] Urea nitrogen/Creatinine mass ratio 15 mg/mg Normal 02-11 [facility] Work Phone: Comment on above: PATIENT WAS FASTINGP ERFORMED BY: DAYDAY Parks6370 [address] [facility] HospitalRentamusin [place] [id number] MICROALBUMINOrdered By: Syst em Temporary Help Agency Referral Clerk on 02-08-2016 Albumin DL <= 20 mg/L mass conc (U) 42.9 ug/mL Normal [facility] Work Phone: Comment on above: PATIENT WAS FASTINGP ERFORMED BY: DAYDAY Parks6370 [address] [facility] [place] [id number] Albumin/Creatinine mass ratio (U) 39.0 {mg/g_creat} Abnormal 0.0-30.0 [facility] Work Phone: Comment on above: PATIENT WAS FASTINGP ERFORMED BY: DAYDAY LabRomaine DangeloLhqqgs5481 [address] RoadDublin [place] [id number] Creatinine mass conc (U) 110.1 mg/dL Normal [facility] Work Phone: Comment on above: PATIENT WAS FASTINGP ERFORMED BY: DAYDAY Dangelolin6370 [address] Road[address]ublin [place] [id number] Microscopic ExaminationOrder ed By: Cashier Courtesy Booth on 02-08-2016 Bacteria LM.HPF #/area (Urine sed) Few Normal [facility] Work Phone: Comment on above: PATIENT WAS FASTINGP ERFORMED BY: DAYDAY LabCoelier Cayuai0064 [address] [facility] [place] [id number] Epithelial cells LM.HPF #/area (Urine sed) 0-10 Normal 0 - 10 [facility] Work Phone: Comment on above: PATIENT WAS FASTINGP ERFORMED BY: DAYDAY [facility] Swjgsj9839 [address] [facility]in [place] [id number] Mucus LM Ql (Urine sed) Present Normal [facility] Work Phone: Mucus Ql (Urine sed) Present Normal Comp rehensive Internal Medicine Work Phone: Comment on above: PATIENT WAS FASTINGP ERFORMED BY: DAYDAY LabCoelier Rgkigd3321 [address] [facility]in [place] [id number] RBC LM.HPF #/area (Urine sed) 3-10 Abnormal 0 - 2 [facility] Work Phone: Comment on above: PATIENT WAS FASTINGP ERFORMED BY: DAYDAY [facility] Dtknry3961 [address] [facility]in [place] [id number] WBC LM.HPF #/area (Urine sed) /[HPF] Abnormal 0 - 5 [facility] Work Phone: Comment on above: PATIENT WAS FASTINGP ERFORMED BY: DAYDAY [facility] Cylmeu1733 [facility] [id number] TSH ([id number])Ordered By: Syste m Temporary [employer] Referral Clerk on 02-08-2016 Thyrotropin Qn 4.920 {uIU/mL} Abnormal 0.450-4.50 0 [facility] Work Phone: Comment on above: PATIENT WAS FASTINGP ERFORMED BY: DAYDAY [facility] Jyklsu4306 [facility] [place] [id number] URINALYSIS, W/ MICRO ([id number]) Ordered By: Cashier Courtesy Booth on 02-08-2016 Appearance Nom (U) Clear Normal Compre hensive Internal Medicine Work Phone: Comment on above: PATIENT WAS FASTINGP ERFORMED BY: DAYDAY [facility] Brzkyg8293 [address] RoadDublin [place] [id number] Color Nom (U) Yellow Normal Comprehensi ve Internal Medicine Work Phone: Comment on above: PATIENT WAS FASTINGP ERFORMED BY: DAYDAY [facility] Cuwrou7293 [address] RoadDublin [place] [id number] Glucose Ql (U) Negative Normal Comprehens [facility] Work Phone: Comment on above: PATIENT WAS FASTINGP ERFORMED BY: [facility] Oowxyi6262 [address] RoadDublin [place] [id number] Hemoglobin Ql (U) Negative Normal Compreh ensive Internal Medicine Work Phone: Comment on above: PATIENT WAS FASTINGP ERFORMED BY: DAYDAY [facility] Wsrbbp4673 [address] RoadDublin [place] [id number] Ketones Ql (U) Negative Normal Comprehens [facility] Work Phone: Comment on above: PATIENT WAS FASTINGP ERFORMED BY: [facility] Drlbin1469 [address] RoadDublin [place] [id number] Leukocyte esterase Test strip Ql (U) 2+ Abnormal [facility] Work Phone: Comment on above: PATIENT WAS FASTINGP ERFORMED BY: DYADAY LabSsm Depaul Health CenterVpnemn8204 [address] RoadDublin [place] [id number] Microscopic observation LM Nom (Urine sed) See below: Normal [facility] Work Phone: Comment on above: Microscopic was komal cated and was performed. PATIENT WAS FASTINGP ERFORMED BY: [facility] Dklfhp9103 [address] RoadDublin [place] [id number] Nitrite Test strip Ql (U) Negative Normal [facility] Work Phone: pH (U) 6.5 [pH] Normal 5.0-7.5 [facility] Work Phone: Comment on above: PATIENT WAS FASTINGP ERFORMED BY: [facility] Rzsbyi5896 Vann RoadDublin [place] [id number] pH Test strip (U) 6.5 [pH] Normal 5.0-7.5 Compreh ensive Internal Medicine Work Phone: Urobilinogen Test strip mass conc (U) 0.2 mg/dL Normal 0.2-1.0 Comprehensiv e Internal Medicine Work Phone: Comment on above: PATIENT WAS FASTINGP ERFORMED BY: DAYDAY LabBlack Fox Meadery Corprp [id number] [facility] [id number] URINE LISSETTE CULTURE (DAKSHA COL COUNT) ([id number])Ordered By: Cashier Courtesy Booth on 02-08-2016 Bacteria identified Cx Nom (U) Final report Abnormal [facility] Work Phone: Comment on above: PATIENT NOT FASTINGP ERFORMED BY: LabBlack Fox Meadery Corprp [id number] [employer] AnalyticsFormerly [facility] [id number] Information: SRC: Bacteria identified Cx Nom (U) Escherichia coli Abnormal [facility] Work Phone: Comment on above: Greater than 100,000 colony forming units per mL PATIENT NOT FASTINGP ERFORMED BY: LabBlack Fox Meadery Corprp Acugpd4692 [place] SiliconFormerly [facility] [id number] Information: SRC: Other Antibiotic [facility] 24h00 [facility] prehensive Internal Medicine Work Phone: Comment on above: S = Susceptible; I = Intermediate; R = Resistant P = Positive; N = Negative MICS are expressed in micrograms per mL Antibiotic RSLT#1 RSLT#2 RSLT#3 RSLT#4Amoxicillin/Clavulanic Acid SAmpicillin SCefepime SCeftriaxone SCefuroxime SCephalothin SCiprofloxacin SErtapenem SGentamicin SImipenem SLevofloxacin SNitrofurantoin SPiperacillin STetracycline STobramycin STrimethoprim/Sulfa S PATIENT NOT FASTINGP ERFORMED BY: LabBlack Fox Meadery Corprp Sacvpq9316 [address] SompharmaceuticalsECU [facility] [id number] Information: SRC:TEMITOPE Urinalysis, Office ([id number])Or dered By: VIRGINIA Arroyo on 02-08-2016 Bilirubin Ql (U) Negative Normal Comprehe nsive Internal Medicine Work Phone: Comment on above: PATIENT WAS FASTINGP ERFORMED BY: DAYDAY MiRTLE Medical Asthsw8432 [address] GapJumpersin [place] [id number] Glucose Test strip mass conc (U) Negative Normal [facility] Work Phone: Hemoglobin Test strip Ql (U) Negative Normal [facility] Work Phone: Leukocyte esterase Test strip Ql (U) Moderate Normal [facility] Work Phone: Nitrite Ql (U) Negative Normal Comprehens burke [facility] Work Phone: Comment on above: PATIENT WAS FASTINGP ERFORMED BY: DAYDAY eVoter6370 [address] GapJumpersFormerly [facility] [id number] pH (U) 7.0 [pH] Normal [facility] Work Phone: pH Test strip (U) 7.0 [pH] Normal Compreh ensive Internal Medicine Work Phone: Protein Ql (U) Negative Normal Comprehens burke [facility] Work Phone: Comment on above: PATIENT WAS FASTINGP ERFORMED BY: DAYDAY The G[employer] Ttzkxm8048 [address] GapJumpersFormerly [facility] [id number] Protein Test strip Ql (U) Negative Normal [facility] Work Phone: Specific gravity Relative Density (U) 1.015 1 Normal Comprehensi ve Internal Medicine Work Phone: Comment on above: PATIENT WAS FASTINGP ERFORMED BY: DAYDAY LabOrigami Logic6370 [address] SompharmaceuticalsECU [facility] [id number] Urobilinogen mass/time (24H U) 2 mg/dL Normal [facility] Work Phone: Blood Glucose , Office ([phone])Ordered By: Ninoska Kemp on 01-20-2016 Glucose Glucometer molar conc (BldC) 85 1 Normal [facility] Work Phone: HgA1C , Office ([id number])Ordere d By: Ninoska Kemp on 01-20-2016 Hemoglobin A1c/Hemoglobin.total mass fraction (Bld) 5.5 % Normal 4.6 - 7.1 Comprehensiv e Internal Medicine Work Phone: Fluid/WashingOrdered By: Liam tem Temporary Help Agency Referral Clerk on 09-16-2015 Fluid/Washing See Note Normal Comprehensi ve Internal Medicine Work Phone: Comment on above: Patient: MAXI PARKER : 1935 (80/F) Acct Num: [id number] Phys: Allenone DPM,Patricia Unit Num: [id number] Loc: LABSPEC Specimen: [id number] Received: 09/16/15 - [...] preparation including cell block. / 09/17/15 TC:5 CPT:00027, 47469, 13877 CYTOLOGY STUDY Slides are reviewed. The specimen is bloody and consists of numerous macrophages. Malignant cells are not identified. DIAGNOSIS CYTOLOGY Ganglion cyst versus gout fluid (cytospin and cell block): Negative for malignant cells. Consistent with cyst contents. See cytology study and comment. SJ:dinorah 09/21/15 HEADER OPERATION: Not noted PRE-OP DIAGNOSIS: Ganglion cyst, gout TISSUE SUBMITTED: Cyst Signed Magdi Long 09/21/15 [facility] [address] [place], [place], [id number] Basic Metabolic Profile (BMP )Ordered By: Cashier Courtesy Booth on 04-14-2015 Basic metabolic 2000 panel 4.4 mmol/L Normal 3.5-5.1 [facility] Work Phone: Comment on above: [facility] [address] [place], [place], [id number] Basic metabolic 2000 panel 0.88 mg/dL Normal 0.55-1.20 [facility] Work Phone: Comment on above: The validity of the calculated GFR AND GFRAA in patients over70 years has not been determined. Clinical correlation isessential. [facility] [address] [place], [address] Basic metabolic 2000 panel 9 mg/dL Normal 7-18 [facility] Work Phone: Comment on above: [facility] [address] [place], [address] Basic metabolic 2000 panel 29.0 mmol/L Normal 21.0-32.0 [facility] Work Phone: Comment on above: [facility] [address] [place], [address] Basic metabolic 2000 panel 104 mmol/L Normal 98-107 [facility] Work Phone: Comment on above: [facility] [address] [place], [address] Basic metabolic 2000 panel 6 1 Normal 5-15 [facility] Work Phone: Comment on above: [facility] [address] [place], [address] Basic metabolic 2000 panel 10.2 {RATIO} Normal 10-20 [facility] Work Phone: Comment on above: [facility] [address] [place], [address] Basic metabolic 2000 panel 80 mL/min Normal [facility] Work Phone: Comment on above: GFR Calc [facility] [address] [place], [address] Basic metabolic 2000 panel 66 mL/min Normal [facility] Work Phone: Comment on above: Non- GFR Calc [facility] [address] [place], [place], [phone] Basic metabolic 2000 panel 139 mmol/L Normal 136-145 [facility] Work Phone: Comment on above: [facility] [address] [place], [place], [id number] Basic metabolic 2000 panel 9.0 mg/dL Normal 8.5-10.1 [facility] Work Phone: Comment on above: [facility] [address] [place], [place], [phone] Basic metabolic 2000 panel 85 mg/dL Normal 70-110 [facility] Work Phone: Comment on above: [facility] [address] [place], [place], [phone] CBC-Complete Blood Cnt No Di ffOrdered By: Cashier Courtesy Booth on 04-14-2015 Erythrocyte distribution width Auto Ratio (RBC) 12.2 % Normal 11.6-14.6 [facility] Work Phone: Erythrocyte distribution width Ratio (RBC) 12.2 % Normal 11.6-14.6 [facility] Work Phone: Comment on above: [facility] [address] [place], [place], [phone] Hematocrit Auto Volume Fraction (Bld) 38.3 % Normal 37-47 [facility] Internal [facility] Work Phone: Hematocrit Volume Fraction (Bld) 38.3 % Normal 37-47 [facility] Work Phone: Comment on above: [facility] [address] [place], [address] Hemoglobin mass conc (Bld) 13.0 g/dL Normal 12.0-15.0 [facility] Work Phone: Comment on above: [facility] [address] [place], [place], [phone] MCH Auto Entitic mass (RBC) 31.8 pg Normal 27.0-32.0 [facility] Work Phone: MCH Entitic mass (RBC) 31.8 pg Normal 27.0-32.0 [facility] Work Phone: Comment on above: [facility] [address] [place], [place], [phone] MCHC Auto mass conc (RBC) 33.9 {g/gl} Normal 32-36 [facility] Work Phone: MCHC mass conc (RBC) 33.9 {g/gl} Normal 32-36 [facility] prehensive Internal Medicine Work Phone: Comment on above: [facility] [address] [place], [address] MCV Auto Entitic volume (RBC) 93.6 fL Normal 81-99 [facility] Work Phone: MCV Entitic volume (RBC) 93.6 fL Normal 81-99 [facility] Work Phone: Comment on above: [facility] [address] [place], [address] Platelet mean volume Auto Entitic volume (Bld) 9.6 fL Normal 6.2-12.0 [facility] Work Phone: Platelet mean volume Entitic volume (Bld) 9.6 fL Normal 6.2-12.0 [facility] Internal [facility] Work Phone: Comment on above: [facility] [address] [place], [address] Platelets #/vol (Bld) 237 10*3/uL Normal 150-450 [facility] Work Phone: Comment on above: [facility] [address] [place], [address] Platelets Auto #/vol (Bld) 237 10*3/uL Normal 150-450 [facility] Work Phone: RBC #/vol (Bld) 4.09 {M/mm3} Abnormal 4.2-5.4 Compreh ensive Internal Medicine Work Phone: Comment on above: [facility] [address] [place], [address] RBC Auto #/vol (Bld) 4.09 {M/mm3} Abnormal 4.2-5.4 Co mprehensive [facility] Work Phone: RDW SD 41.0 fL Normal 35.1-43.9 [facility] Work Phone: WBC #/vol (Bld) 8.4 10*3/uL Normal 4.4-11.0 Comprehe nsive Internal Medicine Work Phone: Comment on above: [facility] [address] [place], [address] WBC Auto #/vol (Bld) 8.4 10*3/uL Normal 4.4-11.0 Com prehensive Internal Medicine Work Phone: CBC-Complete Blood Cnt No Diff 41.0 fL Normal 35.1-43.9 [facility] Work Phone: Comment on above: [facility] [address] [place], [address] Prothrombin Time w/INROrdere d By: Cashier Courtesy Booth on 04-14-2015 INR Coag RelTime (PPP) 1.0 {INR} Normal [facility] Work Phone: Comment on above: [facility] [address] [place], [address] Prothrombin time (PT) Coag time (PPP) 13.6 s Normal 11.7-14.9 [facility] Work Phone: Comment on above: [facility] [address] [place], [address] Urinalysis, Routine (Dipstic k)Ordered By: Cashier Courtesy Booth on 04-14-2015 BILIRUBIN URINE Negative Normal Comprehen sive Internal Medicine Work Phone: CLARITY Clear Normal [facility] Work Phone: Clarity Nom (U) Clear Normal Comprehen sive Internal Medicine Work Phone: Comment on above: How was Urine Obtain ed? CREDIT ANALYSIS MANAGER TO [facility] [address] [place], [address] COLOR Straw Normal [facility] Work Phone: Color Nom (U) Straw Normal Comprehensi ve Internal Medicine Work Phone: Comment on above: How was Urine Obtain ed? CREDIT ANALYSIS MANAGER TO SPECIFYReg[facility] [address] [place], [phone] GLUCOSE, UR Normal Normal [facility] Work Phone: LEUK ESTERASE 100 /ul Abnormal Comprehensi ve Internal Medicine Work Phone: pH UR 6.5 1 Normal 5.0 - 8.0 [facility] Work Phone: SP.GR. DIPSTX 1.005 1 Normal 1.002-1.03 0 [facility] Work Phone: Urinalysis, Routine (Dipstick) Normal Normal [facility] Work Phone: Comment on above: How was Urine Obtain ed? CREDIT ANALYSIS MANAGER TO SPECIFYReg[facility] [address] [place], [address] Urinalysis, Routine (Dipstick) Clear Normal [facility] Work Phone: Urinalysis, Routine (Dipstick) 100 /ul Abnormal [facility] Work Phone: Comment on above: How was Urine Obtain ed? CREDIT ANALYSIS MANAGER TO [facility]CIFYReg[facility] [address] [place], [address] Urinalysis, Routine (Dipstick) Negative Normal [facility] Work Phone: Comment on above: How was Urine Obtain ed? CREDIT ANALYSIS MANAGER TO [facility]CIFYReg[facility] [address] [place], [phone] Urinalysis, Routine (Dipstick) Straw Normal [facility] Work Phone: Urinalysis, Routine (Dipstick) 6.5 1 Normal 5.0 - 8.0 [facility] Work Phone: Comment on above: How was Urine Obtain ed? CREDIT ANALYSIS MANAGER TO [facility]IFYReg[facility] [address] [place], [address] Urinalysis, Routine (Dipstick) 1.005 1 Normal 1.002-1.03 0 [facility] Work Phone: Comment on above: How was Urine Obtain ed? CREDIT ANALYSIS MANAGER TO SPECIFYReg[facility] [address] [place], [place], [phone] Bilirubin, DirectOrdered By: Cashier Courtesy Booth on 12-08-2014 Bilirubin.conjugated mass conc 0.10 mg/dL Normal 0.00-0.30 [facility] Work Phone: Comment on above: Serial Specimen #1, #2 or #3? 1Test performed at:[facility] [address] [place] [place] [address] CA 15-3 Serial MonitorOrdere d By: Cashier Courtesy Booth on 12-08-2014 Cancer Ag 15-3 Qn Normal Compreh ensive Internal Medicine Work Phone: Comment on above: Scanned image report available in EMR Is Patient Fasting? NTest performed at:[facility] [address] [place] [address] Cancer Ag 15-3 Qn 12.7 U/mL Normal 0.0-25.0 Compreh ensive Internal Medicine Work Phone: Comment on above: Leslie ECLIA methodol ogy Is Patient Fasting? NTest performed at:[facility] [address] [place] [address] CA 19-9 Serial MonitorOrdere d By: Cashier Courtesy Booth on 12-08-2014 CA 19-9 2261 24 U/mL [...] methodol ogy Is Patient Fasting? NTest performed at:[facility] [address] [place] [address] CA 27.29 Serial MonitorOrder ed By: Cashier Courtesy Booth on 12-08-2014 Cancer Ag 27-29 Qn Normal [facility] Internal Medicine Work Phone: Comment on above: Scanned image report available in EMR Is Patient Fasting? NTest performed at:[facility] [address] [place] [address] Cancer Ag 27-29 Qn 13.7 U/mL Normal 0.0-38.6 [facility] Internal Medicine Work Phone: Comment on above: Zechariah Centaur/ACS me thodology Is Patient Fasting? NTest performed at:[facility] [address] [place] [address] CBC W/Diff, AutomatedOrdered By: Cashier Courtesy Booth on 12-08-2014 Absolute Lymph 1.07 {X10_3/ul} Normal 0.83-4.51 Compr ehensive Internal Medicine Work Phone: Absolute Neut 3.8 {X10_3/uL} Normal 2.0-7.7 Compreh ensive Internal Medicine Work Phone: Comment on above: Test performed at:[facility] [address] [place] [address] Basophils/100 WBC (Bld) 0.7 % Normal 0-1 [facility] Work Phone: Comment on above: Test performed at:[facility] [address] [place] [address] Basophils/100 WBC Auto (Bld) 0.7 % Normal 0-1 [facility] Work Phone: Eosinophils/100 WBC (Bld) 4.8 % Normal 0-5 [facility] Work Phone: Comment on above: Test performed at:[facility] [address] [place] [address] Eosinophils/100 WBC Auto (Bld) 4.8 % Normal 0-5 [facility] Work Phone: Erythrocyte distribution width Auto Ratio (RBC) 12.4 % Normal 11.6-14.6 [facility] Work Phone: Erythrocyte distribution width Ratio (RBC) 12.4 % Normal 11.6-14.6 [facility] Work Phone: Comment on above: Test performed at:[facility] [address] [place] [address] Hematocrit Auto Volume Fraction (Bld) 37.4 % Normal 37-47 Comprehens burke Internal Medicine Work Phone: Hematocrit Volume Fraction (Bld) 37.4 % Normal 37-47 [facility] Work Phone: Comment on above: Test performed at:[facility] [address] [place] [address] Hemoglobin mass conc (Bld) 12.6 g/dL Normal 12.0-15.0 [facility] Work Phone: Comment on above: Test performed at:[facility] [address] [place] [address] IM GRAN % 0.200 % Normal 0.0-0.9 [facility] Work Phone: Comment on above: IG% - Immature Granu locytes (promyelocytes, myelocytes andmetamyelocytes) > 1% indicates that a LEFT SHIFT is Present. Test performed at:[facility] [address] [place] [address] Lymphocytes #/vol (Bld) 1.07 {X10_3/ul} Normal 0.83-4.51 [facility] Work Phone: Comment on above: Test performed at:[facility] [address] [place] [address] Lymphocytes/100 WBC (Bld) 18.9 % Abnormal 19-41 [facility] Work Phone: Comment on above: Test performed at:[facility] [address] [place] [address] Lymphocytes/100 WBC Auto (Bld) 18.9 % Abnormal 19-41 [facility] Work Phone: MCH Auto Entitic mass (RBC) 31.3 pg Normal 27.0-32.0 [facility] Work Phone: MCH Entitic mass (RBC) 31.3 pg Normal 27.0-32.0 [facility] Work Phone: Comment on above: Test performed at:[facility] [address] [place] [address] MCHC Auto mass conc (RBC) 33.7 {g/gl} Normal 32-36 [facility] Work Phone: MCHC mass conc (RBC) 33.7 {g/gl} Normal 32-36 [facility] prehensive Internal Medicine Work Phone: Comment on above: Test performed at:[facility] [address] [place] [address] MCV Auto Entitic volume (RBC) 93.0 fL Normal 81-99 [facility] Work Phone: MCV Entitic volume (RBC) 93.0 fL Normal 81-99 [facility] Work Phone: Comment on above: Test performed at:[facility] [address] [place] [address] Monocytes/100 WBC Auto (Bld) 8.0 % Normal 0-10 [facility] Work Phone: Comment on above: Test performed at:[facility] [address] [place] [address] Monocytes/100 WBC Auto (Bld) 8.0 % Normal 0-10 [facility] Work Phone: Neutrophils/100 WBC (Bld) 67.4 % Normal 47-70 [facility] Work Phone: Comment on above: Test performed at:[facility] [address] [place] [address] Neutrophils/100 WBC Auto (Bld) 67.4 % Normal 47-70 [facility] Work Phone: Platelet mean volume Auto Entitic volume (Bld) 9.3 fL Normal 6.2-12.0 [facility] Work Phone: Platelet mean volume Entitic volume (Bld) 9.3 fL Normal 6.2-12.0 Comprehensi ve Internal Medicine Work Phone: Comment on above: Test performed at:[facility] [address] [place] [address] Platelets #/vol (Bld) 237 10*3/uL Normal 150-450 Co mprehensive Internal Medicine Work Phone: Comment on above: Test performed at:[facility] [address] [place] [address] Platelets Auto #/vol (Bld) 237 10*3/uL Normal 150-450 [facility] Work Phone: RBC #/vol (Bld) 4.02 {M/mm3} Abnormal 4.2-5.4 Compreh ensive Internal Medicine Work Phone: Comment on above: Test performed at:[facility] [address] [place] [address] RBC Auto #/vol (Bld) 4.02 {M/mm3} Abnormal 4.2-5.4 Co mprehensive Internal Medicine Work Phone: RDW SD 42.1 fL Normal 35.1-43.9 [facility] Work Phone: Comment on above: Test performed at:[facility] [address] [place] [address] WBC #/vol (Bld) 5.7 10*3/uL Normal 4.4-11.0 Comprehe nsive Internal Medicine Work Phone: Comment on above: Test performed at:[facility] [address] [place] [address] WBC Auto #/vol (Bld) 5.7 10*3/uL Normal 4.4-11.0 Com prehensive Internal Medicine Work Phone: CBC W/Diff, Automated 0.200 % Normal 0.0-0.9 [facility] prehensive Internal Medicine Work Phone: Comment on above: IG% - Immature Granu locytes (promyelocytes, myelocytes andmetamyelocytes) > 1% indicates that a LEFT SHIFT is Present. CBC W/Diff, Automated 42.1 fL Normal 35.1-43.9 [facility] prehensive Internal Medicine Work Phone: CBC W/Diff, Automated 3.8 {X10_3/uL} Normal 2.0-7.7 [facility] Work Phone: CBC W/Diff, Automated 1.07 {X10_3/ul} Normal 0.83-4.51 [facility] Work Phone: Cancer Antigen 125Ordered By : Cashier Courtesy Booth on 12-08-2014 Cancer Ag 125 Qn 10.1 U/mL Normal 0.0-34.0 Comprehe nsive Internal Medicine Work Phone: Comment on above: Leslie ECLIA methodol ogy Is Patient Fasting? NTest performed at:[facility] [address] [place] [address] Carcinoembryonic AntigenOrde red By: Cashier Courtesy Booth on 12-08-2014 Carcinoembryonic Ag mass conc 2.0 ng/mL Normal 0.0-4.7 [facility] Work Phone: Comment on above: Leslie ECLIA methodol ogy Nonsmokers <3.9 Smokers <5.6 Is Patient Fasting? NTest performed at:[facility] [address] [place] [address] Comprehensive Metabolic Prof ilOrdered By: Cashier Courtesy Booth on 12-08-2014 Comprehensive metabolic 2000 panel 50 mL/min Abnormal Comprehensi ve Internal Medicine Work Phone: Comment on above: Serial Specimen #1, #2 or #3? 1Test performed at:[facility] [address] [facility] [place] [address] Comprehensive metabolic 2000 panel 3.7 g/dL Normal 3.4-5.0 Comprehensi ve Internal Medicine Work Phone: Comment on above: Serial Specimen #1, #2 or #3? 1Test performed at:[facility] [address] [place] [address] Comprehensive metabolic 2000 panel 7.4 g/dL Normal 6.4-8.2 Comprehensi ve Internal Medicine Work Phone: Comment on above: Serial Specimen #1, #2 or #3? 1Test performed at:[facility] [address] [place] [address] Comprehensive metabolic 2000 panel 1.0 {RATIO} Normal 0.9-2.4 Comprehensi ve Internal Medicine Work Phone: Comment on above: Serial Specimen #1, #2 or #3? 1Test performed at:[facility] [address] [place] [address] Comprehensive metabolic 2000 panel 8.8 mg/dL Normal 8.5-10.1 Comprehensi ve Internal Medicine Work Phone: Comment on above: Serial Specimen #1, #2 or #3? 1Test performed at:[facility] [address] [facility] [place] [address] Comprehensive metabolic 2000 panel 24 U/L Normal 12-78 Comprehensi ve Internal Medicine Work Phone: Comment on above: Serial Specimen #1, #2 or #3? 1Test performed at:[facility] [address] [place] [address] Comprehensive metabolic 2000 panel 70 U/L Normal 50-136 Comprehensi ve Internal Medicine Work Phone: Comment on above: Serial Specimen #1, #2 or #3? 1Test performed at:[facility] [address] [place] [address] Comprehensive metabolic 2000 panel 15.2 {RATIO} Normal 10-20 Comprehensi ve Internal Medicine Work Phone: Comment on above: Serial Specimen #1, #2 or #3? 1Test performed at:[facility] [address] [place] [address] Comprehensive metabolic 2000 panel 61 mL/min Normal Comprehensi ve Internal Medicine Work Phone: Comment on above: Serial Specimen #1, #2 or #3? 1Test performed at:[facility] [address] [place] [address] Comprehensive metabolic 2000 panel 1.12 mg/dL Normal 0.55-1.20 Comprehensi ve Internal Medicine Work Phone: Comment on above: The validity of the calculated GFR AND GFRAA in patients over70 years has not been determined. Clinical correlation isessential. Serial Specimen #1, #2 or #3? 1Test performed at:[facility] [address] [place] [address] Comprehensive metabolic 2000 panel 0.50 mg/dL Normal 0.20-1.00 Comprehensi ve Internal Medicine Work Phone: Comment on above: Serial Specimen #1, #2 or #3? 1Test performed at:[facility] [address] [place], [place] [id number] Comprehensive metabolic 2000 panel 17 mg/dL Normal 7-18 Comprehensi ve Internal Medicine Work Phone: Comment on above: Serial Specimen #1, #2 or #3? 1Test performed at:[facility] [address] [place] [address] Comprehensive metabolic 2000 panel 82 mg/dL Normal 70-110 Comprehensi ve Internal Medicine Work Phone: Comment on above: Serial Specimen #1, #2 or #3? 1Test performed at:[facility] [address] [place], [place] [id number] Comprehensive metabolic 2000 panel 6 1 Normal 5-15 Comprehensi ve Internal Medicine Work Phone: Comment on above: Serial Specimen #1, #2 or #3? 1Test performed at:[facility] [address] [place] [address] Comprehensive metabolic 2000 panel 26.0 mmol/L Normal 21.0-32.0 Comprehensi ve Internal Medicine Work Phone: Comment on above: Serial Specimen #1, #2 or #3? 1Test performed at:[facility] [address] [place] [address] Comprehensive metabolic 2000 panel 103 mmol/L Normal 98-107 Comprehensi ve Internal Medicine Work Phone: Comment on above: Serial Specimen #1, #2 or #3? 1Test performed at:[facility] [address] [place], [place] [id number] Comprehensive metabolic 2000 panel 4.5 mmol/L Normal 3.5-5.1 Comprehensi ve Internal Medicine Work Phone: Comment on above: Serial Specimen #1, #2 or #3? 1Test performed at:[facility] [address] [place], [place] [id number] Comprehensive metabolic 2000 panel 135 mmol/L Abnormal 136-145 Comprehensi ve Internal Medicine Work Phone: Comment on above: Serial Specimen #1, #2 or #3? 1Test performed at:[facility] [address] [place], [place] [id number] Erythrocyte Sed RateOrdered By: Cashier Courtesy Booth on 12-08-2014 SED RATE 14 mm/h Normal 0-30 [facility] Medicine Work Phone: Erythrocyte Sed Rate 14 mm/h Normal 0-30 Comp rehensive Internal Medicine Work Phone: Comment on above: Test performed at:[facility] [address] [address] FerritinOrdered By: Dorene cronin on 12-08-2014 Ferritin mass conc 102 ng/mL Normal 8-252 Compre hensive Internal Medicine Work Phone: Comment on above: Serial Specimen #1, #2 or #3? 1Test performed at:[facility] [address] [place] [address] HaptoglobinOrdered By: Ying Cordero on 12-08-2014 Haptoglobin mass conc 82 mg/dL Normal 34-200 Com prehensive Internal Medicine Work Phone: Comment on above: Performed at: [place] [id number] Director: Irvin Goins PhD, Phone: [phone] Is Patient Fasting? NTest performed at:[facility] [address] [place] [address] Immunoglobulins G/A/M/EOrder ed By: Cashier Courtesy Booth on 12-08-2014 IMMUNO A 1784 181 mg/dL [...] on above: Is Patient Fasting? NTest performed at:[facility] [address] [place], [place] [id number] Immunoglobulins G/A/M/E 181 mg/dL Normal 91-414 [facility] Work Phone: Comment on above: Is Patient Fasting? NTest performed at:[facility] [address] [place] [address] Immunoglobulins G/A/M/E 55 mg/dL Normal 40-230 [facility] Work Phone: Comment on above: Is Patient Fasting? NTest performed at:[facility] [address] [place] [address] Immunoglobulins G/A/M/E 11 {IU/mL} Normal 0-100 [facility] Work Phone: Comment on above: Is Patient Fasting? NTest performed at:[facility] [address] [place] [address] IronOrdered By: System Manag er on 12-08-2014 Iron mass conc 72 ug/dL Normal 50-170 [facility] Internal Medicine Work Phone: Comment on above: Serial Specimen #1, #2 or #3? 1Test performed at:[facility] [address] [place] [address] Iron Binding Capacity,TotalO rdered By: Cashier Courtesy Booth on 12-08-2014 Iron binding capacity mass conc 270 ug/dL Normal 250-450 [facility] Work Phone: Comment on above: Serial Specimen #1, #2 or #3? 1Test performed at:[facility] [address] [place] [address] Canyon Lambda Lt Chn Ser. Mon .Ordered By: Cashier Courtesy Booth on 12-08-2014 Immunoglobulin light chains.kappa.free/Imm unoglobulin light chains.lambda.free mass ratio (S) 20.70 mg/L Abnormal 3.30-19.40 [facility] Work Phone: Comment on above: Is Patient Fasting? NTest performed at:[facility] [address] [place] [place] [address] Immunoglobulin light chains.kappa.free/Imm unoglobulin light chains.lambda.free mass ratio (S) Normal [facility] Work Phone: Comment on above: Scanned image report available in EMR Is Patient Fasting? NTest performed at:[facility] [address] [place] [address] Immunoglobulin light chains.kappa.free/Imm unoglobulin light chains.lambda.free mass ratio (S) 1.25 1 Normal 0.26-1.65 [facility] Work Phone: Comment on above: Is Patient Fasting? NTest performed at:[facility] [address] [place] [address] Immunoglobulin light chains.kappa.free/Imm unoglobulin light chains.lambda.free mass ratio (S) 16.60 mg/L Normal 5.71-26.30 [facility] Work Phone: Comment on above: Is Patient Fasting? NTest performed at:[facility] [address] [address] LDHOrdered By: System Manage r on 12-08-2014 LDH enzyme act/vol 204 U/L Normal 84-246 [facility] Internal [facility] Work Phone: Comment on above: Serial Specimen #1, #2 or #3? 1Test performed at:[facility] [address] [place] [address] MagnesiumOrdered By: Cashier Courtesy Booth on 12-08-2014 Magnesium mass conc 1.7 mg/dL Abnormal 1.8-2.4 Compr [facility] Internal Medicine Work Phone: Comment on above: Serial Specimen #1, #2 or #3? 1Test performed at:[facility] [address] [place] [address] Protein Electroph, SOrdered By: Cashier Courtesy Booth on 12-08-2014 Albumin mass conc 4.0 g/dL Normal 3.2-5.6 Compreh [facility] Internal Medicine Work Phone: Comment on above: Is Patient Fasting? NTest performed at:[facility] [address] [place] [address] Albumin/Globulin mass ratio 1.5 {ratio} Normal 0.7-2.0 [facility] Work Phone: Comment on above: Is Patient Fasting? NTest performed at:[facility] [address] [place] [address] ALPHA-1 GLOBUL 0.2 g/dL Normal [...] on above: Is Patient Fasting? NTest performed at:[facility] [address] [place] [address] INTERPRETATION Comment Normal Comprehens [facility] Internal Medicine Work Phone: Comment on above: Protein electrophore sis scan will follow via computer,mail, or fish hatchery man delivery. The SPE pattern appe ars essentially unremarkable. Evidenceof monoclonal protein is not apparent. M-SPIKE Normal [facility] Work Phone: Comment on above: Not Observed Protein mass conc 6.6 g/dL Normal 6.0-8.5 Compreh ensive Internal Medicine Work Phone: Comment on above: Is Patient Fasting? NTest performed at:[facility] [address] [place] [address] Protein Electroph, S 0.2 g/dL Normal 0.1-0.4 Comp rehensive Internal Medicine Work Phone: Comment on above: Is Patient Fasting? NTest performed at:[facility] [address] [place] [address] Protein Electroph, S 0.6 g/dL Normal 0.4-1.2 [facility] Internal Medicine Work Phone: Comment on above: Is Patient Fasting? NTest performed at:[facility] [address] [place] [address] Protein Electroph, S 0.9 g/dL Normal 0.5-1.6 [facility] Internal Medicine Work Phone: Comment on above: Is Patient Fasting? NTest performed at:[facility] [address] [place] [address] Protein Electroph, S Normal [facility] Internal Medicine Work Phone: Comment on above: Not Observed Scanned image report available in EMR Is Patient Fasting? NTest performed at:[facility] [address] [place] [address] Protein Electroph, S Comment Normal [facility] Work Phone: Comment on above: Protein electrophore sis scan will follow via computer,mail, or fish hatchery man delivery. The SPE pattern appe ars essentially unremarkable. Evidenceof monoclonal protein is not apparent. Is Patient Fasting? NTest performed at:[facility] [address] [place] [address] Retic PanelOrdered By: Ying pierson [employer]porary [employer] Referral Clerk on 12-08-2014 IM RET FRACTION 5.80 % Normal 3.00-15.90 [facility] Internal Medicine Work Phone: IPF 1.4 % [...] Work Phone: Comment on above: Test performed at:[facility] [address] [place] [address] Retic Panel 32.6 pg Normal 30-35 [facility] Medicine Work Phone: Comment on above: Test performed at:[facility] [address] [place] [address] Retic Panel 1.4 % Normal [...] RBCcellular response from bone marrow. Test performed at:[facility] [address] [place] [address] Retic Panel 5.80 % Normal 3.00-15.90 [facility] Work Phone: Comment on above: Test performed at:[facility] [address] [place] [address] Thyroid Stim Hormone (TSH)Or dered By: Cashier Courtesy Booth on 12-08-2014 Thyrotropin Qn 2.82 {uIU/mL} Normal 0.358-3.74 Compreh ensive Internal Medicine Work Phone: Comment on above: Serial Specimen #1, #2 or #3? 1Test performed at:[facility] [address] [place] [address] Uric AcidOrdered By: Cashier Courtesy Booth on 12-08-2014 Urate mass conc 6.4 mg/dL Abnormal 2.6-6.0 Comprehen sive Internal Medicine Work Phone: Comment on above: Serial Specimen #1, #2 or #3? 1Test performed at:[facility] [address] [place] [address] Rapid Flu (41255 x 2)Ordered By: Donna Carrillo on 03-16-2014 FLUAV Ag IA Ql (Throat) Negative Normal [facility] Work Phone: Blood Glucose , Office ([phone])Ordered By: Ninoska Kemp on 04-30-2013 Glucose Glucometer molar conc (BldC) 100 1 Normal [facility] Work Phone: C-REACTIVE PROTEIN ([id number])Or dered By: Cashier Courtesy Booth on 04-30-2013 CRP mass conc 4.7 mg/L Normal 0.0-4.9 Comprehensi Internal Medicine Work Phone: Comment on above: PATIENT NOT FASTINGP ERFORMED BY: [address] [place] [id number] CALCIFIDIOL (24011) VIT D 25 Ordered By: Cashier Courtesy Booth on 04-30-2013 25-Hydroxyvitamin D2+25-Hydroxyvitamin D3 mass conc 35.0 ng/mL Normal 30.0-100.0 [facility] Work Phone: Comment on above: Vitamin D deficiency has been defined by the [place] ofMedicine and an Endocrine Society practice guideline as alevel of serum 25-OH vitamin D less than 20 ng/mL (1,2).The Endocrine Society went on to further define vitamin Dinsufficiency as a level between 21 and 29 ng/mL (2).1. IOM ([place] of Medicine). 2010. Dietary reference intakes for calcium and D. [place]: The National Academies Press.2. Trevon MF, Sherrell JEFFERSON, Treva CORLEY, et al. Evaluation, treatment, and prevention of vitamin D deficiency: an Endocrine Society clinical practice guideline. JCEM. 2010; 96(7):1911-30. PATIENT NOT FASTINGP ERFORMED BY: [employer] [place] [id number] CBC (AUTO) ([id number])Ordered By : Cashier Courtesy Booth on 04-30-2013 Erythrocyte distribution width Auto Ratio (RBC) 13.0 % Normal 12.3-15.4 [facility] Work Phone: Erythrocyte distribution width Ratio (RBC) 13.0 % Normal 12.3-15.4 [facility] Work Phone: Comment on above: PATIENT NOT FASTINGP ERFORMED BY: DAYDAY [facility] Qgxsco1590 [facility] [id number] Hematocrit Auto Volume Fraction (Bld) 41.2 % Normal 34.0-46.6 [facility] Internal Medicine Work Phone: Hematocrit Volume Fraction (Bld) 41.2 % Normal 34.0-46.6 [facility] Work Phone: Comment on above: PATIENT NOT FASTINGP ERFORMED BY: DAYDAY Paul Dtvnku2640 [facility] [id number] Hemoglobin mass conc (Bld) 13.8 g/dL Normal 11.1-15.9 [facility] Work Phone: Comment on above: PATIENT NOT FASTINGP ERFORMED BY: DAYDAY Dangelolin6370 [facility] [id number] MCH Auto Entitic mass (RBC) 31.2 pg Normal 26.6-33.0 [facility] Work Phone: MCH Entitic mass (RBC) 31.2 pg Normal 26.6-33.0 [facility] Work Phone: Comment on above: PATIENT NOT FASTINGP ERFORMED BY: DAYDAY [facility] Fjibhr9643 [facility] [id number] MCHC Auto mass conc (RBC) 33.5 g/dL Normal 31.5-35.7 [facility] Work Phone: MCHC mass conc (RBC) 33.5 g/dL Normal 31.5-35.7 [facility] Internal Medicine Work Phone: Comment on above: PATIENT NOT FASTINGP ERFORMED BY: CB [facility] Dlkhgf5807 [facility] [id number] MCV Auto Entitic volume (RBC) 93 fL Normal 79-97 [facility] Work Phone: MCV Entitic volume (RBC) 93 fL Normal 79-97 [facility] Work Phone: Comment on above: PATIENT NOT FASTINGP ERFORMED BY: CB [facility] Bqktln2049 [facility] [id number] Platelets #/vol (Bld) 232 {x10E3/uL} Normal 155-379 [facility] Work Phone: Comment on above: PATIENT NOT FASTINGP ERFORMED BY: CB [facility] Fgcjtr0869 [facility] [id number] Platelets Auto #/vol (Bld) 232 {x10E3/uL} Normal 155-379 [facility] Work Phone: RBC #/vol (Bld) 4.42 {x10E6/uL} Normal 3.77-5.28 [facility] Work Phone: Comment on above: PATIENT NOT FASTINGP ERFORMED BY: [facility] Hhgkub2331 [facility] [id number] RBC Auto #/vol (Bld) 4.42 {x10E6/uL} Normal 3.77-5.28 [facility] Work Phone: WBC #/vol (Bld) 7.5 {x10E3/uL} Normal 3.4-10.8 [facility] Work Phone: Comment on above: PATIENT NOT FASTINGP ERFORMED BY: CB [facility] Wslmjz3620 [facility] [id number] WBC Auto #/vol (Bld) 7.5 {x10E3/uL} Normal 3.4-10.8 [facility] Work Phone: Folate ([phone])Ordered By: Sy stem Temporary [employer] Referral Clerk on 04-30-2013 Folate mass conc ng/mL Normal Comprehe nsive Internal Medicine Work Phone: Comment on above: A serum folate juany ntration of less than 3.1 ng/mL isconsidered to represent clinical deficiency. PATIENT NOT FASTINGP ERFORMED BY: DAYDAY [facility] Irnysh4666 [facility] [place] [id number] HgA1C , Office ([id number])Ordere d By: Ninoska Kemp on 04-30-2013 Hemoglobin A1c/Hemoglobin.total mass fraction (Bld) 5.9 % Normal 4.6 - 7.1 Comprehensiv e Internal Medicine Work Phone: METABOLIC PANEL, COMPREHENSI VE ([phone])Ordered By: Cashier Courtesy Booth on 04-30-2013 Albumin mass conc 4.4 g/dL Normal 3.5-4.8 Compreh ensive Internal Medicine Work Phone: Comment on above: PATIENT NOT FASTINGP ERFORMED BY: DAYDAY [facility] Uvkswp6864 [facility] [id number] Information: [id number] Albumin/Globulin mass ratio 1.6 {ratio} Normal 1.1-2.5 [facility] Work Phone: Comment on above: PATIENT NOT FASTINGP ERFORMED BY: CB [facility] Nnwvkh9067 V[address] SompharmaceuticalsDuin [place] [id number] Information: [id number] ALP enzyme act/vol 76 [iU]/L Normal 39-117 [facility] Internal Medicine Work Phone: Comment on above: PATIENT NOT FASTINGP ERFORMED BY: CB [facility] Tzdtqq0196 [address] SompharmaceuticalsHaywood Regional Medical Centerin [place] [id number] Information: [id number] ALT enzyme act/vol 19 [iU]/L Normal 0-32 [facility] Internal Medicine Work Phone: Comment on above: PATIENT NOT FASTINGP ERFORMED BY: CB [facility] Xjxciq1539 [facility] HospitalDuin [place] [id number] Information: [id number] AST enzyme act/vol 26 [iU]/L Normal 0-40 [facility] Internal Medicine Work Phone: Comment on above: PATIENT NOT FASTINGP ERFORMED BY: CB [facility] Ohbdwv3766 Vann [facility] Hospitalin [place] [id number] Information: [id number] Bilirubin mass conc 0.4 mg/dL Normal 0.0-1.2 Compr ehensive Internal Medicine Work Phone: Comment on above: PATIENT NOT FASTINGP ERFORMED BY: DAYDAY [facility] Fujnvb6994 [facility] [id number] Information: [id number] Calcium mass conc 9.9 mg/dL Normal 8.6-10.2 Compreh ensive Internal Medicine Work Phone: Comment on above: PATIENT NOT FASTINGP ERFORMED BY: DAYDAY [facility] Ypryrj9925 [facility] [id number] Information: [id number] Chloride molar conc 99 mmol/L Normal 97-108 Compr ensive Internal Medicine Work Phone: Comment on above: PATIENT NOT FASTINGP ERFORMED BY: DAYDAY [facility] Bdlnky3328 [facility] [id number] Information: [id number] CO2 molar conc 25 mmol/L Normal 19-28 Comprehens [facility] Internal Medicine Work Phone: Comment on above: PATIENT NOT FASTINGP ERFORMED BY: DAYDAY [facility] Usluxn0346 [facility] [id number] Information: [id number] Creatinine mass conc 0.99 mg/dL Normal 0.57-1.00 Comp [facility] Internal [facility] Work Phone: Comment on above: PATIENT NOT FASTINGP ERFORMED BY: CB [facility] Sefoxd0484 [facility] [id number] Information: [id number] GFR/1.73 sq M predicted among blacks CKD-EPI vol rate/area (S/P/Bld) 64 mL/min/1.73 Normal Comprehensiv e Internal Medicine Work Phone: Comment on above: PATIENT NOT FASTINGP ERFORMED BY: DAYDAY [facility] Mufbjk3257 [facility] [id number] Information: [id number] GFR/1.73 sq M predicted among non-blacks CKD-EPI vol rate/area (S/P/Bld) 56 mL/min/1.73 Abnormal [facility] Work Phone: Comment on above: PATIENT NOT FASTINGP ERFORMED BY: DAYDAY [facility] Ipcmfy8785 [facility] [id number] Information: [id number] Globulin Calculated mass conc (S) 2.7 g/dL Normal 1.5-4.5 [facility] Work Phone: Globulin mass conc (S) 2.7 g/dL Normal 1.5-4.5 [facility] Work Phone: Comment on above: PATIENT NOT FASTINGP ERFORMED BY: DAYDAY [facility]6370 [facility] [id number] Information: [id number] Glucose mass conc 85 mg/dL Normal 65-99 Compreh ensive Internal Medicine Work Phone: Comment on above: PATIENT NOT FASTINGP ERFORMED BY: DAYDAY [facility] Tnwuri7995 [facility] [id number] Information: [id number] Potassium molar conc 5.0 mmol/L Normal 3.5-5.2 Comp rehensive Internal Medicine Work Phone: Comment on above: PATIENT NOT FASTINGP ERFORMED BY: [facility] Sglcpb5817 [facility] [id number] Information: [id number] Protein mass conc 7.1 g/dL Normal 6.0-8.5 Compreh ensive Internal Medicine Work Phone: Comment on above: PATIENT NOT FASTINGP ERFORMED BY: [facility] Siiwsj3344 [facility] [id number] Information: [id number] Sodium molar conc 138 mmol/L Normal 134-144 Compreh ensive Internal Medicine Work Phone: Comment on above: PATIENT NOT FASTINGP ERFORMED BY: CB [facility] Pzixwn2382 [address] RoadDublin [place] [id number] Information: [id number] Urea nitrogen mass conc 17 mg/dL Normal 8- [facility] Work Phone: Comment on above: PATIENT NOT FASTINGP ERFORMED BY: CB [facility] Apnwme2945 [address] Road[address]ublin [place] [id number] Information: [id number] Urea nitrogen/Creatinine mass ratio 17 mg/mg Normal - [facility] Work Phone: Comment on above: PATIENT NOT FASTINGP ERFORMED BY: CB [facility] Jsbghb9372 [address] RoadDublin [place] [id number] Information: [id number] SED RATE ERYTHROCYTE (75968) Ordered By: Cashier Courtesy Booth on 04-30-2013 ESR Velocity (Bld) 6 mm/h Normal 0-40 [facility] Internal Medicine Work Phone: Comment on above: PATIENT NOT FASTINGP ERFORMED BY: CB [facility] Cuddsz1046 [address] [place] [id number] TSH ([id number])Ordered By: Ying m [employer] Referral Clerk on 04-30-2013 Thyrotropin Qn 2.540 {uIU/mL} Normal 0.450-4.50 0 [facility] Work Phone: Comment on above: PATIENT NOT FASTINGP ERFORMED BY: CB [facility] Rtuelj7530 [address] Road[address] [place] [id number] VITAMIN B-12 (CYANOCOBALAMIN ) ([id number])Ordered By: Cashier Courtesy Booth on 04-30-2013 Cobalamin (Vitamin B12) mass conc 520 pg/mL Normal 211-946 [facility] Work Phone: Comment on above: PATIENT NOT FASTINGP ERFORMED BY: CB [facility] Fihiwu9397 [address] [place] [id number] HgA1C , Office ([id number])Ordere d By: Ninoska Kemp on 12-27-2012 Hemoglobin A1c/Hemoglobin.total mass fraction (Bld) 6.0 % Normal 4.6 - 7.1 Comprehensiv e Internal Medicine Work Phone: ABDOMEN COMPLETEOrdered By: Cashier Courtesy Booth on 12-16-2012 ABDOMEN COMPLETE See Note Normal [...] size of the right kidney. The right voyieszxlhoduo65.7 cm. Normal renal cortex. The right cortex measures 1.2 cm. Thereisno demonstrated renal mass or cyst. There is no right hydronephrosis. Left Kidney: Normal size of the left kidney. The left kidney eoqemchx06.3cm. Normal renal cortex. The left cortex measures 1.0 cm. There is nodemonstrated renal mass or cyst. There is no left hydronephrosis. Aorta: Unremarkable. I.V.C.: The IVC is patent. There is no ascites. IMPRESSION:Fatty infiltration of the liver appearFindings suggestive of adenomyomatosis of the gallbladder. Correlationwith nuclear medicine hepatobiliary scan is recommended. Signed:Grabiel Gallagher M.D.December 16, 2012 at 12:39:21 PM [id number] Signed GP/GP If you are the referring physician and would like to consult with theradiologist who provided this interpretation, please contact Milagros Reyes at [phone]. If this radiologist is unavailable, youwill be directed to another radiologist to assist. If you are a patient with a question regarding this report, pleasecontactyour referring physician directly. Professional Interpretation Provided By: [employer], Phone , These documents contain legally protected [...] Gallagher MD Antinuclear Antibodies Direc tOrdered By: Cashier Courtesy Booth on 12-11-2012 Nuclear Ab Ql (S) Negative Normal Compreh ensive Internal Medicine Work Phone: Comment on above: PERFORMED BY: [employer] [address] [id number] C-Reactive Protein, QuantOrd ered By: Cashier Courtesy Booth on 12-11-2012 CRP mass conc 9.5 mg/L Abnormal 0.0-4.9 Comprehensi ve Internal Medicine Work Phone: Comment on above: PERFORMED BY: [facility] [facility]EC[facility] [id number] CBC With Differential/Platel etOrdered By: Cashier Courtesy Booth on 12-11-2012 Basophils #/vol (Bld) 0.0 {x10E3/uL} Normal 0.0-0.2 [facility] Work Phone: Comment on above: PERFORMED BY: [employer] [facility] [id number] Basophils Auto #/vol (Bld) 0.0 {x10E3/uL} Normal 0.0-0.2 [facility] Work Phone: Basophils/100 WBC (Bld) 0 % Normal 0-3 [facility] Work Phone: Comment on above: PERFORMED BY: [facility] [facility] [id number] Basophils/100 WBC Auto (Bld) 0 % Normal 0-3 [facility] Work Phone: Eosinophils #/vol (Bld) 0.2 {x10E3/uL} Normal 0.0-0.4 [facility] Work Phone: Comment on above: PERFORMED BY: [facility] [facility] [id number] Eosinophils Auto #/vol (Bld) 0.2 {x10E3/uL} Normal 0.0-0.4 [facility] Work Phone: Eosinophils/100 WBC (Bld) 2 % Normal 0-5 [facility] Work Phone: Comment on above: PERFORMED BY: [facility] [facility] [id number] Eosinophils/100 WBC Auto (Bld) 2 % Normal 0-5 [facility] Work Phone: Erythrocyte distribution width Auto Ratio (RBC) 13.2 % Normal 12.3-15.4 [facility] Work Phone: Erythrocyte distribution width Ratio (RBC) 13.2 % Normal 12.3-15.4 [facility] Work Phone: Comment on above: PERFORMED BY: [employer] Gap[place] [id number] Hematocrit Auto Volume Fraction (Bld) 37.8 % Normal 34.0-46.6 [facility] Internal Medicine Work Phone: Hematocrit Volume Fraction (Bld) 37.8 % Normal 34.0-46.6 [facility] Work Phone: Comment on above: PERFORMED BY: [email or web address] Gap[place] [id number] Hemoglobin mass conc (Bld) 12.8 g/dL Normal 11.1-15.9 [facility] Work Phone: Comment on above: PERFORMED BY: [email or web address] [place] [id number] Immature granulocytes #/vol (Bld) 0.0 {x10E3/uL} Normal 0.0-0.1 [facility] Work Phone: Comment on above: PERFORMED BY: [email or web address] SompharmaceuticalsHaywood Regional Medical Centerin [place] [id number] Immature granulocytes/100 WBC (Bld) 0 % Normal 0-2 [facility] Work Phone: Comment on above: PERFORMED BY: [email or web address] SompharmaceuticalsHaywood Regional Medical Centerin [place] [id number] Lymphocytes #/vol (Bld) 2.2 {x10E3/uL} Normal 0.7-3.1 [facility] Work Phone: Comment on above: PERFORMED BY: [employer] [facility] [place] [id number] Lymphocytes Auto #/vol (Bld) 2.2 {x10E3/uL} Normal 0.7-3.1 [facility] Work Phone: Lymphocytes/100 WBC (Bld) 19 % Normal 14-46 [facility] Work Phone: Comment on above: PERFORMED BY: [email or web address] SompharmaceuticalsEC[facility] [id number] Lymphocytes/100 WBC Auto (Bld) 19 % Normal 14-46 [facility] Work Phone: MCH Auto Entitic mass (RBC) 30.8 pg Normal 26.6-33.0 [facility] Work Phone: MCH Entitic mass (RBC) 30.8 pg Normal 26.6-33.0 [facility] Work Phone: Comment on above: PERFORMED BY: [facility]Former[facility] [id number] MCHC Auto mass conc (RBC) 33.9 g/dL Normal 31.5-35.7 [facility] Work Phone: MCHC mass conc (RBC) 33.9 g/dL Normal 31.5-35.7 [facility] Internal Medicine Work Phone: Comment on above: PERFORMED BY: [facility] [facility] [id number] MCV Auto Entitic volume (RBC) 91 fL Normal 79-97 [facility] Work Phone: MCV Entitic volume (RBC) 91 fL Normal 79-97 [facility] Work Phone: Comment on above: PERFORMED BY: [facility] [id number] Monocytes #/vol (Bld) 0.6 {x10E3/uL} Normal 0.1-0.9 [facility] Work Phone: Comment on above: PERFORMED BY: [facility] [facility] [id number] Monocytes Auto #/vol (Bld) 0.6 {x10E3/uL} Normal 0.1-0.9 [facility] Work Phone: Monocytes/100 WBC (Bld) 5 % Normal 4-12 [facility] Work Phone: Comment on above: PERFORMED BY: [facility] [id number] Monocytes/100 WBC Auto (Bld) 5 % Normal 4-12 [facility] Work Phone: Neutrophils #/vol (Bld) 8.2 {x10E3/uL} Abnormal 1.4-7.0 [facility] Work Phone: Comment on above: PERFORMED BY: [facility] [id number] Neutrophils Auto #/vol (Bld) 8.2 {x10E3/uL} Abnormal 1.4-7.0 [facility] Work Phone: Neutrophils/100 WBC (Bld) 74 % Normal 40-74 [facility] Work Phone: Comment on above: PERFORMED BY: [facility] [facility] SchoolEC[facility] [id number] Neutrophils/100 WBC Auto (Bld) 74 % Normal 40-74 [facility] Work Phone: Platelets #/vol (Bld) 230 {x10E3/uL} Normal 155-379 [facility] Work Phone: Comment on above: PERFORMED BY: [email or web address] [facility] [id number] Platelets Auto #/vol (Bld) 230 {x10E3/uL} Normal 155-379 [facility] Work Phone: RBC #/vol (Bld) 4.15 {x10E6/uL} Normal 3.77-5.28 Comp rehensive Internal Medicine Work Phone: Comment on above: PERFORMED BY: [employer] [facility] [id number] RBC Auto #/vol (Bld) 4.15 {x10E6/uL} Normal 3.77-5.28 [facility] Work Phone: WBC #/vol (Bld) 11.3 {x10E3/uL} Abnormal 3.4-10.8 Comp rehensive Internal Medicine Work Phone: Comment on above: PERFORMED BY: [employer]6370 Moleculera LabsECU Health [facility] Hospital [id number] WBC Auto #/vol (Bld) 11.3 {x10E3/uL} Abnormal 3.4-10.8 [facility] Work Phone: Comp. Metabolic Panel (14)Or dered By: Cashier Courtesy Booth on 12-11-2012 Albumin mass conc 4.3 g/dL Normal 3.5-4.8 [facility] Work Phone: Comment on above: PERFORMED BY: SeeWhyox GapJumpersblin [place] [id number] Albumin/Globulin mass ratio 1.6 {ratio} Normal 1.1-2.5 [facility] Work Phone: Comment on above: PERFORMED BY: [place] [id number] ALP enzyme act/vol 76 [iU]/L Normal 45-108 [facility] Internal [facility] Work Phone: Comment on above: PERFORMED BY: [place] [id number] ALT enzyme act/vol 17 [iU]/L Normal 0-32 [facility] Internal Medicine Work Phone: Comment on above: PERFORMED BY: [place] [id number] AST enzyme act/vol 22 [iU]/L Normal 0-40 [facility] Internal Medicine Work Phone: Comment on above: PERFORMED BY: [email or web address] [id number] Bilirubin mass conc 0.5 mg/dL Normal 0.0-1.2 [facility] Internal Medicine Work Phone: Comment on above: PERFORMED BY: [email or web address] [place] [id number] Calcium mass conc 9.8 mg/dL Normal 8.6-10.2 [facility] Work Phone: Comment on above: PERFORMED BY: [email or web address] [place] [id number] Chloride molar conc 101 mmol/L Normal 97-108 Compr ensive Internal Medicine Work Phone: Comment on above: PERFORMED BY: [employer] RoadRentamusblin [place] [id number] CO2 molar conc 22 mmol/L Normal 19-28 Comprehens [facility] Internal Medicine Work Phone: Comment on above: PERFORMED BY: [employer] GapJump[address]bl[address] [place] [id number] Creatinine mass conc 0.95 mg/dL Normal 0.57-1.00 Comp rehensive Internal Medicine Work Phone: Comment on above: PERFORMED BY: [employer]6[address] RoadRentamusblin [place] [id number] GFR/1.73 sq M predicted among blacks CKD-EPI vol rate/area (S/P/Bld) 68 mL/min/1.73 Normal Comprehensiv e Internal Medicine Work Phone: Comment on above: PERFORMED BY: [employer]6[address] RoadRentamusblin [place] [id number] GFR/1.73 sq M predicted among non-blacks CKD-EPI vol rate/area (S/P/Bld) 59 mL/min/1.73 Abnormal [facility] Work Phone: Comment on above: PERFORMED BY: [employer]6[address] Gap[address]bl[address] [place] [id number] Globulin Calculated mass conc (S) 2.7 g/dL Normal 1.5-4.5 [facility] Work Phone: Globulin mass conc (S) 2.7 g/dL Normal 1.5-4.5 [facility] Work Phone: Comment on above: PERFORMED BY: [employer] Gap[address]bl[address] [place] [id number] Glucose mass conc 84 mg/dL Normal 65-99 Compreh ensive Internal Medicine Work Phone: Comment on above: PERFORMED BY: [employer] [place] [id number] Potassium molar conc 4.8 mmol/L Normal 3.5-5.2 Comp rehensive Internal Medicine Work Phone: Comment on above: PERFORMED BY: [employer]6[address] SiliconFormerly [facility] [id number] Protein mass conc 7.0 g/dL Normal 6.0-8.5 Compreh ensive Internal Medicine Work Phone: Comment on above: PERFORMED BY: [employer] SiliconFormerly [facility] [id number] Sodium molar conc 141 mmol/L Normal 134-144 Compreh ensive Internal Medicine Work Phone: Comment on above: PERFORMED BY: [email or web address] SiliconFormerly [facility] [id number] Urea nitrogen mass conc 13 mg/dL Normal 8-27 [facility] Work Phone: Comment on above: PERFORMED BY: [email or web address] SiliconFormerly [facility] [id number] Urea nitrogen/Creatinine mass ratio 14 mg/mg Normal 11-26 [facility] Work Phone: Comment on above: PERFORMED BY: [email or web address] SiliconFormerly [facility] [id number] Cytomegalovirus (CMV) Ab, Ig GOrdered By: Cashier Courtesy Booth on 12-11-2012 CMV IgG IA Qn 8.8 {index} Abnormal 0.0-0.8 Comprehens [facility] Internal Medicine Work Phone: Comment on above: Negative <0.9 Equivo anel 0.9 - 1.0 Positive >1.0 PERFORMED BY: [email or web address] [facility]culera LabsEC[facility] [id number] Cytomegalovirus (CMV) Ab, Ig MOrdered By: Cashier Courtesy Booth on 12-11-2012 Cytomegalovirus (CMV) Ab, IgM <0.9 Normal 0.0-0.8 [facility] Work Phone: Comment on above: Negative <0.9 Equivo anel 0.9 - 1.0 Positive >1.0 PERFORMED BY: [employer] SiliconFormerly [facility] [id number] EBV Acute Infection Antibodi esOrdered By: Cashier Courtesy Booth on 12-11-2012 EBV Acute Infection Antibodies 0.5 {AI} Normal 0.0-0.8 [facility] Work Phone: Comment on above: Negative <0.9 Equivo anel 0.9 - 1.0 Positive >1.0 PERFORMED BY: [email or web address] [facility]cul[facility] LabsEC[facility] [id number] EBV Acute Infection Antibodies <0.2 Normal 0.0-0.8 [facility] Work Phone: Comment on above: Negative <0.9 Equivo anel 0.9 - 1.0 Positive >1.0 PERFORMED BY: [email or web address] [facility]cul[facility] LabsEC[facility] [id number] EBV Acute Infection Antibodies >8.0 Abnormal 0.0-0.8 [facility] Work Phone: Comment on above: Negative <0.9 Equivo anel 0.9 - 1.0 Positive >1.0 PERFORMED BY: [facility] SchoolEC[facility] [id number] EBV Acute Infection Antibodies SPRCS Normal Comprehensive [...] Antibody Present - Antibody Absent PERFORMED BY: [facility] [facility] SchoolEC[facility] [id number] Rheumatoid Arthritis FactorO rdered By: Cashier Courtesy Booth on 12-11-2012 Rheumatoid factor Qn 8.3 {IU/mL} Normal 0.0-13.9 [facility] prehensive Internal Medicine Work Phone: Comment on above: PERFORMED BY: [employer] [facility] SchoolEC[facility] [id number] Sedimentation Rate-Westergre nOrdered By: Cashier Courtesy Booth on 12-11-2012 ESR Velocity (Bld) 19 mm/h Normal 0-40 [facility] Internal Medicine Work Phone: Comment on above: PERFORMED BY: Zachary Prell [facility] [id number] TSHOrdered By: System Manage r on 12-11-2012 Thyrotropin Qn 2.660 {uIU/mL} Normal 0.450-4.50 0 [facility] Work Phone: Comment on above: PERFORMED BY: [facility] Romaine Fgicep2439 [facility] [id number] URINE LISSETTE CULTURE-IDENTIFICA [place] ([id number])Ordered By: Cashier Courtesy Booth on 12-11-2012 Bacteria identified Cx Nom (U) Final report Normal [facility] Work Phone: Comment on above: PATIENT NOT FASTINGP ERFORMED BY: [facility] Imiaab5172 [facility] [id number] Information: [id number] Bacteria identified Cx Nom (U) Staphylococcus aureus [...] Meropenem PATIENT NOT FASTINGP ERFORMED BY: [facility] Mszgkf4389 [facility] [id number] Information: [id number] Bacteria identified Cx Nom (U) Enterococcus faecalis [...] primarily for treating urinary tract infections. (CLSI, L645-D21,2009) PATIENT NOT FASTINGP ERFORMED BY: [facility] Emgeal4709 [facility] [id number] Information: [id number] Bacteria identified Cx Nom (U) Escherichia coli Normal [facility] Work Phone: Comment on above: 2,000 Colonies/mL PATIENT NOT FASTINGP ERFORMED BY: [facility] Ooqyrr2600 [facility] [id number] Information: [id number] Other Antibiotic [facility] prehensive Internal Medicine Work Phone: Comment [...] S PATIENT NOT FASTINGP ERFORMED BY: [facility] Kqzagh9122 [facility] [id number] Information: [id number] Urinalysis, Office ([id number])Or dered By: Lucinda Colbert on 12-11-2012 Bilirubin [...] Phone: Vitamin B12 and FolateOrdere d By: Cashier Courtesy Booth on 12-11-2012 Cobalamin (Vitamin B12) mass conc 485 pg/mL Normal 211-946 [facility] Work Phone: Comment on above: PERFORMED BY: [employer]6[address] [employer] [id number] Folate mass conc 18.1 ng/mL Normal Comprehe nsive Internal Medicine Work Phone: Comment on above: A serum folate juany ntration of less than 3.1 ng/mL isconsidered to represent clinical deficiency. PERFORMED BY: [employer] [place] [id number] Vitamin D, 25-HydroxyOrdered By: Cashier Courtesy Booth on 12-11-2012 25-Hydroxyvitamin D2+25-Hydroxyvitamin D3 mass conc 34.1 ng/mL Normal 30.0-100.0 [facility] Work Phone: Comment on above: Vitamin D deficiency has been defined by the [place] ofMedicine and an Endocrine Society practice guideline as alevel of serum 25-OH vitamin D less than 20 ng/mL (1,2).The Endocrine Society went on to further define vitamin Dinsufficiency as a level between 21 and 29 ng/mL (2).1. IOM ([place] of Medicine). 2010. Dietary reference intakes for calcium and D. [place]: The National Academies Press.2. Trevon MF, Sherrell JEFFERSON, Treva CORLEY, et al. Evaluation, treatment, and prevention of vitamin D deficiency: an Endocrine Society clinical practice guideline. JCEM. 2010; 96(7):1911-30. PERFORMED BY: [employer] Bjvtwr3724 [facility] [id number] BILAT SCRN DIGITAL & CADOrde red By: Cashier Courtesy Booth on 10-10-2012 BILAT SCRN DIGITAL & CAD [...] Gallagher M.D.October 14, 2012 at 1:00:27 PM [id number] Signed GP/GP If you are the referring physician and would like to consult with theradiologist who provided this interpretation, please contact Milagros Reyes at [phone]. If this radiologist is unavailable, youwill be directed to another radiologist to assist. If you are a patient with a question regarding this report, pleasecontactyour referring physician directly. Professional Interpretation Provided By: [employer], Phone , These documents contain legally protected [...] Medicine Work Phone: CBC WITH MANUAL DIFF ([id number]) Ordered By: Cashier Courtesy Booth on 10-07-2012 Basophils #/vol (Bld) 0.1 {x10E3/uL} Normal 0.0-0.2 [facility] Work Phone: Comment on above: PATIENT WAS FASTINGP ERFORMED BY: [facility]Robert [facility] SomersetNzamcl1412 [facility] [id number] Information: [id number] Basophils Auto #/vol (Bld) 0.1 {x10E3/uL} Normal 0.0-0.2 [facility] Work Phone: Basophils/100 WBC (Bld) 1 % Normal 0-3 [facility] Work Phone: Comment on above: PATIENT WAS FASTINGP ERFORMED BY: DAYDAY [place] [id number] [facility] [id number] Information: [id number] Basophils/100 WBC Auto (Bld) 1 % Normal 0-3 [facility] Work Phone: Eosinophils #/vol (Bld) 0.2 {x10E3/uL} Normal 0.0-0.4 [facility] Work Phone: Comment on above: PATIENT WAS FASTINGP ERFORMED BY: DAYDAY [place] [id number] [facility] [id number] Information: [id number] Eosinophils Auto #/vol (Bld) 0.2 {x10E3/uL} Normal 0.0-0.4 [facility] Work Phone: Eosinophils/100 WBC (Bld) 3 % Normal 0-7 [facility] Work Phone: Comment on above: PATIENT WAS FASTINGP ERFORMED BY: DAYDAY [place] [id number] [facility] [id number] Information: [id number] Eosinophils/100 WBC Auto (Bld) 3 % Normal 0-7 [facility] Work Phone: Erythrocyte distribution width Auto Ratio (RBC) 13.0 % Normal 12.3-15.4 [facility] Work Phone: Erythrocyte distribution width Ratio (RBC) 13.0 % Normal 12.3-15.4 [facility] Work Phone: Comment on above: PATIENT WAS FASTINGP ERFORMED BY: [address] [id number] Information: [id number] Hematocrit Auto Volume Fraction (Bld) 37.6 % Normal 34.0-46.6 Comprehens [facility] Internal Medicine Work Phone: Hematocrit Volume Fraction (Bld) 37.6 % Normal 34.0-46.6 [facility] Work Phone: Comment on above: PATIENT WAS FASTINGP ERFORMED BY: DAYDAY [address] [id number] Information: [id number] Hemoglobin mass conc (Bld) 12.8 g/dL Normal 11.1-15.9 [facility] Work Phone: Comment on above: PATIENT WAS FASTINGP ERFORMED BY: [address] [id number] Information: [id number] Immature granulocytes #/vol (Bld) 0.0 {x10E3/uL} Normal 0.0-0.1 [facility] Work Phone: Comment on above: PATIENT WAS FASTINGP ERFORMED BY: [address] [id number] Information: [id number] Immature granulocytes/100 WBC (Bld) 0 % Normal 0-2 [facility] Work Phone: Comment on above: PATIENT WAS FASTINGP ERFORMED BY: [address] [id number] Information: [id number] Lymphocytes #/vol (Bld) 1.8 {x10E3/uL} Normal 0.7-4.5 [facility] Work Phone: Comment on above: PATIENT WAS FASTINGP ERFORMED BY: [address] [id number] Information: [id number] Lymphocytes Auto #/vol (Bld) 1.8 {x10E3/uL} Normal 0.7-4.5 [facility] Work Phone: Lymphocytes/100 WBC (Bld) 22 % Normal 14-46 [facility] Work Phone: Comment on above: PATIENT WAS FASTINGP ERFORMED BY: [address]ox RoadDublin [place] [id number] Information: [id number] Lymphocytes/100 WBC Auto (Bld) 22 % Normal 14-46 [facility] Work Phone: MCH Auto Entitic mass (RBC) 31.7 pg Normal 26.6-33.0 [facility] Work Phone: MCH Entitic mass (RBC) 31.7 pg Normal 26.6-33.0 [facility] Work Phone: Comment on above: PATIENT WAS FASTINGP ERFORMED BY: [address] [id number] Information: [id number] MCHC Auto mass conc (RBC) 34.0 g/dL Normal 31.5-35.7 [facility] Work Phone: MCHC mass conc (RBC) 34.0 g/dL Normal 31.5-35.7 Comp [facility] Internal Medicine Work Phone: Comment on above: PATIENT WAS FASTINGP ERFORMED BY: [address] [id number] Information: [id number] MCV Auto Entitic volume (RBC) 93 fL Normal 79-97 [facility] Work Phone: MCV Entitic volume (RBC) 93 fL Normal 79-97 [facility] Work Phone: Comment on above: PATIENT WAS FASTINGP ERFORMED BY: [address] [id number] Information: [id number] Monocytes #/vol (Bld) 0.5 {x10E3/uL} Normal 0.1-1.0 [facility] Work Phone: Comment on above: PATIENT WAS FASTINGP ERFORMED BY: [address] [id number] Information: [id number] Monocytes Auto #/vol (Bld) 0.5 {x10E3/uL} Normal 0.1-1.0 [facility] Work Phone: Monocytes/100 WBC (Bld) 6 % Normal 4-13 [facility] Work Phone: Comment on above: PATIENT WAS FASTINGP ERFORMED BY: DAYDAY [place] [id number] [facility] [id number] Information: [id number] Monocytes/100 WBC Auto (Bld) 6 % Normal 4-13 [facility] Work Phone: Neutrophils #/vol (Bld) 5.7 {x10E3/uL} Normal 1.8-7.8 [facility] Work Phone: Comment on above: PATIENT WAS FASTINGP ERFORMED BY: DAYDAY [place] [id number] [facility] [id number] Information: [id number] Neutrophils Auto #/vol (Bld) 5.7 {x10E3/uL} Normal 1.8-7.8 [facility] Work Phone: Neutrophils/100 WBC (Bld) 68 % Normal 40-74 [facility] Work Phone: Comment on above: PATIENT WAS FASTINGP ERFORMED BY: DAYDAY [facility] ComplexRomaine DangeloBfkaih2758 [facility] [id number] Information: [id number] Neutrophils/100 WBC Auto (Bld) 68 % Normal 40-74 [facility] Work Phone: Platelets #/vol (Bld) 226 {x10E3/uL} Normal 140-415 [facility] Work Phone: Comment on above: PATIENT WAS FASTINGP ERFORMED BY: DAYDAY [place] [id number] [facility] [id number] Information: [id number] Platelets Auto #/vol (Bld) 226 {x10E3/uL} Normal 140-415 [facility] Work Phone: RBC #/vol (Bld) 4.04 {x10E6/uL} Normal 3.77-5.28 Comp rehensive Internal Medicine Work Phone: Comment on above: PATIENT WAS FASTINGP ERFORMED BY: DAYDAY JessieRomaine Doairu0723 [facility] [id number] Information: [id number] RBC Auto #/vol (Bld) 4.04 {x10E6/uL} Normal 3.77-5.28 [facility] Work Phone: WBC #/vol (Bld) 8.3 {x10E3/uL} Normal 4.0-10.5 [facility] Internal Medicine Work Phone: Comment on above: PATIENT WAS FASTINGP ERFORMED BY: DAYDAY Mykonos SoftwareCox Walnut Lawn Ohatuw4347 [facility] [id number] Information: [id number] WBC Auto #/vol (Bld) 8.3 {x10E3/uL} Normal 4.0-10.5 [facility] Work Phone: HgA1C , Office ([id number])Ordere d By: Ninoska Kemp on 10-07-2012 Hemoglobin A1c/Hemoglobin.total mass fraction (Bld) 5.7 % Normal 4.6 - 7.1 Comprehensiv e Internal Medicine Work Phone: LIPID PANEL ([id number])Ordered B y: Cashier Courtesy Booth on 10-07-2012 Cholesterol in HDL mass conc 54 mg/dL Normal [facility] Work Phone: Comment on above: According to ATP-III Guidelines, HDL-C >59 mg/dL is considered anegative risk factor for CHD. PATIENT WAS FASTINGP ERFORMED BY: DAYDAY [employer]konos SoftwareCo Zrajdi5204 [address] SompharmaceuticalsECU Health [facility] [id number] Cholesterol in LDL mass conc 141 mg/dL Abnormal 0-99 [facility] Work Phone: Comment on above: PATIENT WAS FASTINGP ERFORMED BY: DAYDAY The Grommet Jcanst3089 [facility] [id number] Cholesterol in LDL/Cholesterol in HDL mass ratio 2.6 {ratio_units} Normal 0.0-3.2 [facility] Work Phone: Comment on above: PATIENT WAS FASTINGP ERFORMED BY: DAYDAY LabCoelier Rrrgyj6445 V[address] Roadblin [place] [id number] Cholesterol in VLDL mass conc 20 mg/dL Normal 5-40 [facility] Work Phone: Comment on above: PATIENT WAS FASTINGP ERFORMED BY: DAYDAY LabRomaine DangeloXpbnen8084 V[address] RoadHaywood Regional Medical Centerin [place] [id number] Cholesterol mass conc 215 mg/dL Abnormal 100-199 Com prehensive Internal Medicine Work Phone: Comment on above: PATIENT WAS FASTINGP ERFORMED BY: DAYDAY LabCoelier Qtulup6636 [address] [facility] [place] [id number] Triglyceride mass conc 98 mg/dL Normal 0-149 [facility] Work Phone: Comment on above: PATIENT WAS FASTINGP ERFORMED BY: DAYDAY LabRomaine DangeloLpefrg8198 [address] [facility] [id number] METABOLIC PANEL, COMPREHENSI VE ([id number])Ordered By: Cashier Courtesy Booth on 10-07-2012 Albumin mass conc 4.3 g/dL Normal 3.5-4.8 Compreh [facility] Work Phone: Comment on above: PATIENT WAS FASTINGP ERFORMED BY: DAYDAY LabCoelier DangeloAjjyqs8740 [address] [facility] [id number] Albumin/Globulin mass ratio 1.6 {ratio} Normal 1.1-2.5 [facility] Work Phone: Comment on above: PATIENT WAS FASTINGP ERFORMED BY: DAYDAY LabCoelier DangeloVkhzlk5816 [address] [facility] [id number] ALP enzyme act/vol 76 [iU]/L Normal 45-108 Compre [facility] Internal Medicine Work Phone: Comment on above: PATIENT WAS FASTINGP ERFORMED BY: DAYDAY [facility] Eupnux7573 [address] [facility] [id number] ALT enzyme act/vol 19 [iU]/L Normal 0-32 Compre [facility] Internal Medicine Work Phone: Comment on above: PATIENT WAS FASTINGP ERFORMED BY: DAYDAY LabCo Otqrin0818 [address] [facility] [place] [id number] AST enzyme act/vol 24 [iU]/L Normal 0-40 Compre [facility] Internal Medicine Work Phone: Comment on above: PATIENT WAS FASTINGP ERFORMED BY: DAYDAY [facility] Xdrpux2707 [address] RoadDublin [place] [id number] Bilirubin mass conc 0.5 mg/dL Normal 0.0-1.2 Compr ensive Internal Medicine Work Phone: Comment on above: PATIENT WAS FASTINGP ERFORMED BY: [facility] Cmlych1930 V[address] RoadHaywood Regional Medical Centerin [place] [id number] Calcium mass conc 9.8 mg/dL Normal 8.6-10.2 Compreh [facility] Work Phone: Comment on above: PATIENT WAS FASTINGP ERFORMED BY: DAYDAY LabCo Hwzxtb1777 [address] [facility] [place] [id number] Chloride molar conc 100 mmol/L Normal 97-108 Compr ensive Internal Medicine Work Phone: Comment on above: PATIENT WAS FASTINGP ERFORMED BY: DAYDAY LabCo Dbzdqc0846 [address] [facility]in [place] [id number] CO2 molar conc 22 mmol/L Normal 19-28 Comprehens [facility] Internal Medicine Work Phone: Comment on above: PATIENT WAS FASTINGP ERFORMED BY: DAYDAY LabCo Mydojf6833 [address] [facility]in [place] [id number] Creatinine mass conc 0.96 mg/dL Normal 0.57-1.00 Comp [facility] Work Phone: Comment on above: PATIENT WAS FASTINGP ERFORMED BY: [facility] Pdxhed1421 V[address] RoadHaywood Regional Medical Centerin [place] [id number] GFR/1.73 sq M predicted among blacks CKD-EPI vol rate/area (S/P/Bld) 67 mL/min/1.73 Normal Comprehensiv e Internal Medicine Work Phone: Comment on above: PATIENT WAS FASTINGP ERFORMED BY: [facility] Hqeost5498 V[address] RoadHaywood Regional Medical Centerin [place] [id number] GFR/1.73 sq M predicted among non-blacks CKD-EPI vol rate/area (S/P/Bld) 58 mL/min/1.73 Abnormal [facility] Work Phone: Comment on above: PATIENT WAS FASTINGP ERFORMED BY: DAYDAY Olena Dangelolin6370 [facility] [id number] Globulin Calculated mass conc (S) 2.7 g/dL Normal 1.5-4.5 [facility] Work Phone: Globulin mass conc (S) 2.7 g/dL Normal 1.5-4.5 [facility] Work Phone: Comment on above: PATIENT WAS FASTINGP ERFORMED BY: DAYDAY JessieRomaine DangeloOtzral3118 [facility] [id number] Glucose mass conc 93 mg/dL Normal 65-99 Compreh ensive Internal Medicine Work Phone: Comment on above: PATIENT WAS FASTINGP ERFORMED BY: DAYDAY Paul Lhcmnc0274 [facility] [id number] Potassium molar conc 5.0 mmol/L Normal 3.5-5.2 Comp rehensive Internal Medicine Work Phone: Comment on above: PATIENT WAS FASTINGP ERFORMED BY: DAYDAY JessieRomaine DangeloDapbgk2702 [facility] [id number] Protein mass conc 7.0 g/dL Normal 6.0-8.5 Compreh ensive Internal Medicine Work Phone: Comment on above: PATIENT WAS FASTINGP ERFORMED BY: DAYDAY LabKarina Agpubn5205 [facility] [id number] Sodium molar conc 136 mmol/L Normal 134-144 Compreh ensive Internal Medicine Work Phone: Comment on above: PATIENT WAS FASTINGP ERFORMED BY: DAYDAY LabCo Aoixmc5438 [facility] [id number] Urea nitrogen mass conc 14 mg/dL Normal 8-27 [facility] Work Phone: Comment on above: PATIENT WAS FASTINGP ERFORMED BY: DAYDAY LabCox Walnut Lawn Ofutdn0899 [facility] [id number] Urea nitrogen/Creatinine mass ratio 15 mg/mg Normal 11-26 [facility] Work Phone: Comment on above: PATIENT WAS FASTINGP ERFORMED BY: DAYDAY Dangelolin6370 [address] Roadbl[address] [place] [id number] MICROALBUMINOrdered By: Syst em [employer] Referral Clerk on 10-07-2012 Albumin DL <= 20 mg/L mass conc (U) mg/dL Normal 0.0-17.0 [facility] Work Phone: Comment on above: PATIENT WAS FASTINGP ERFORMED BY: DAYDAY Dangelolin6370 [address] RoadHaywood Regional Medical Centerin [place] [id number] Albumin/Creatinine mass ratio (U) <3.7 Normal 0.0-30.0 [facility] Work Phone: Comment on above: PATIENT WAS FASTINGP ERFORMED BY: DAYDAY Dangelolin6370 [address] RoadECU [facility] [id number] Creatinine mass conc (U) 26.8 mg/dL Normal 15.0-278.0 [facility] Work Phone: Comment on above: PATIENT WAS FASTINGP ERFORMED BY: DAYDAY Parks6370 [address] [facility]bl[facility] [place] [id number] Microscopic ExaminationOrder ed By: Cashier Courtesy Booth on 10-07-2012 Bacteria LM.HPF #/area (Urine sed) Few Normal [facility] Work Phone: Comment on above: PATIENT WAS FASTINGP ERFORMED BY: DAYDAY Dangelolin6370 [address] [facility] Hospitalbl[facility] [place] [id number] Epithelial cells LM.HPF #/area (Urine sed) None seen Normal 0 - 10 [facility] Work Phone: Comment on above: PATIENT WAS FASTINGP ERFORMED BY: DAYDAY LabRomaine DangeloNcjafy2089 [address] RoadDublin [place] [id number] RBC LM.HPF #/area (Urine sed) None seen Normal 0 - 3 [facility] Work Phone: Comment on above: PATIENT WAS FASTINGP ERFORMED BY: DAYDAY LabRomaine DangeloTxirqq0546 [address] [facility] [id number] WBC LM.HPF #/area (Urine sed) None seen Normal 0 - 5 [facility] Work Phone: Comment on above: PATIENT WAS FASTINGP ERFORMED BY: DAYDAY [facility] Fkfihc3999 [address] RoadDublin [place] [id number] TSH ([id number])Ordered By: Syste m [employer] Referral Clerk on 10-07-2012 Thyrotropin Qn 3.100 {uIU/mL} Normal 0.450-4.50 0 [facility] Work Phone: Comment on above: PATIENT WAS FASTINGP ERFORMED BY: DAYDAY [facility] Qrxlvt5620 [address] RoadDublin [place] [id number] URINALYSIS, W/ MICRO ([id number]) Ordered By: Cashier Courtesy Booth on 10-07-2012 Appearance Nom (U) Clear Normal Compre hensive Internal Medicine Work Phone: Comment on above: PATIENT WAS FASTINGP ERFORMED BY: DAYDAY [facility] Sscwzn5658 [address] RoadDublin [place] [id number] Bilirubin Ql (U) Negative Normal Comprehe nsive Internal Medicine Work Phone: Comment on above: PATIENT WAS FASTINGP ERFORMED BY: DAYDAY [facility] Wcyzwj1527 [address] RoadDublin [place] [id number] Color Nom (U) Yellow Normal Comprehensi ve Internal Medicine Work Phone: Comment on above: PATIENT WAS FASTINGP ERFORMED BY: DAYDAY [facility] Lmvqzj2045 [address] RoadDublin [place] [id number] Glucose Ql (U) Negative Normal Comprehens [facility] Internal Medicine Work Phone: Comment on above: PATIENT WAS FASTINGP ERFORMED BY: DAYDAY [facility] Tenpgk1194 [address] RoadDublin [place] [id number] Hemoglobin Ql (U) Negative Normal Compreh ensive Internal Medicine Work Phone: Comment on above: PATIENT WAS FASTINGP ERFORMED BY: DAYDAY [facility] Epuymt4749 [address] RoadDublin [place] [id number] Hemoglobin Test strip Ql (U) Negative Normal [facility] Work Phone: Ketones Ql (U) Negative Normal Comprehens [facility] Internal Medicine Work Phone: Comment on above: PATIENT WAS FASTINGP ERFORMED BY: DAYDAY Parks6370 [address] RoadDublin [place] [id number] Leukocyte esterase Test strip Ql (U) Negative Normal [facility] Work Phone: Comment on above: PATIENT WAS FASTINGP ERFORMED BY: DAYDAY Sanford70 [address] RoadDublin [place] [id number] Microscopic observation LM Nom (Urine sed) MICRON Normal [facility] Work Phone: Comment on above: Microscopic follows if indicated. PATIENT WAS FASTINGP ERFORMED BY: DAYDAY Parks6370 [address]Dublin [place] [id number] Microscopic observation LM Nom (Urine sed) See below: Normal [facility] Work Phone: Comment on above: PATIENT WAS FASTINGP ERFORMED BY: DAYDAY Sanford70 [address] RoadDublin [place] [id number] Nitrite Ql (U) Negative Normal Comprehens [facility] Internal Medicine Work Phone: Comment on above: PATIENT WAS FASTINGP ERFORMED BY: DAYDAY Sanford70 [address] RoadDublin [place] [id number] Nitrite Test strip Ql (U) Negative Normal [facility] Work Phone: pH (U) 7.5 [pH] Normal 5.0-7.5 [facility] Work Phone: Comment on above: PATIENT WAS FASTINGP ERFORMED BY: DAYDAY Dangelolin6370 [address] RoadDublin [place] [id number] pH Test strip (U) 7.5 [pH] Normal 5.0-7.5 Compreh ensive Internal Medicine Work Phone: Protein Ql (U) Negative Normal Comprehens [facility] Internal Medicine Work Phone: Comment on above: PATIENT WAS FASTINGP ERFORMED BY: DAYDAY Parks6370 [address]Dublin [place] [id number] Protein Test strip Ql (U) Negative Normal [facility] Work Phone: Specific gravity Relative Density (U) <=1.005 Abnormal 1.005-1.03 0 [facility] Work Phone: Comment on above: PATIENT WAS FASTINGP ERFORMED BY: eVoter6370 Moleculera LabsECU Health [facility] Hospital [id number] Urobilinogen Test strip mass conc (U) 0.2 mg/dL Normal 0.0-1.9 Comprehensiv e Internal Medicine Work Phone: Comment on above: PATIENT WAS FASTINGP ERFORMED BY: [place] Wi Max6370 VannNewton PeripheralsECU Health [facility] Hospital [id number] Vitamin D Hydroxy (60599)Ord ered By: Cashier Courtesy Booth on 10-07-2012 25-Hydroxyvitamin D2+25-Hydroxyvitamin D3 mass conc 22.2 ng/mL Abnormal 30.0-100.0 [facility] Work Phone: Comment on above: Vitamin D deficiency has been defined by the [place] ofMedicine and an Endocrine Society practice guideline as alevel of serum 25-OH vitamin D less than 20 ng/mL (1,2).The Endocrine Society went on to further define vitamin Dinsufficiency as a level between 21 and 29 ng/mL (2).1. IOM ([place] of Medicine). 2010. Dietary reference intakes for calcium and D. [place]: The National Academies Press.2. Trevon MF, Sherrell NC, Treva CORLEY, et al. Evaluation, treatment, and prevention of vitamin D deficiency: an Endocrine Society clinical practice guideline. JCEM. 2010; 96(7):1911-30. PATIENT WAS FASTINGP ERFORMED BY: Gucash Ujzuxj7703 [facility] [id number] Hemoglobin Glyclated (HGB A1 C) (75160)Ordered By: Cashier Courtesy Booth on 06-03-2012 Hemoglobin A1c/Hemoglobin.total mass fraction (Bld) 6.2 % Abnormal 4.8-5.6 Comprehensiv e Internal Medicine Work Phone: Comment on above: . Increased risk for diabetes: 5.7 - 6.4 Diabetes: >6.4 Glycemic control for adults with diabetes: <7.0 PATIENT NOT FASTINGP ERFORMED BY: Gucash Tdrcqi1324 [address] RoadDublin [place] [id number] Information: ADD [id number] AND DRAW FEE 99 [id number] ASHLEIGH (ANTINUCLEAR ANTIBODY) ( 62775)Ordered By: Cashier Courtesy Booth on 03-27-2012 Nuclear Ab Ql (S) Negative Normal Compreh ensive Internal Medicine Work Phone: Comment on above: PATIENT NOT FASTINGP ERFORMED BY: Gucash Azvmse6031 [address] RoadDublin [place] [id number] C-REACTIVE PROTEIN (06257)Or dered By: Cashier Courtesy Booth on 03-27-2012 CRP mass conc 3.2 mg/L Normal 0.0-4.9 Comprehensi ve Internal Medicine Work Phone: Comment on above: PATIENT NOT FASTINGP ERFORMED BY: Gucash Dgltmb2065 [address] GapJumpersblin [place] [id number] CALCIFIDIOL (31039) VIT D 25 Ordered By: Cashier Courtesy Booth on 03-27-2012 25-Hydroxyvitamin D2+25-Hydroxyvitamin D3 mass conc 15.9 ng/mL Abnormal 30.0-100.0 [facility] Work Phone: Comment on above: Vitamin D deficiency has been defined by the [place] ofMedicine and an Endocrine Society practice guideline as alevel of serum 25-OH vitamin D less than 20 ng/mL (1,2).The Endocrine Society went on to further define vitamin Dinsufficiency as a level between 21 and 29 ng/mL (2).1. IOM ([place] of Medicine). 2010. Dietary reference intakes for calcium and D. [place]: The National Academies Press.2. Trveon MF, Sherrell NC, Treva CORLEY, et al. Evaluation, treatment, and prevention of vitamin D deficiency: an Endocrine Society clinical practice guideline. JCEM. 2010; 96(7):1911-30. PATIENT NOT FASTINGP ERFORMED BY: Care ITrp Yksgpq1182 [address] RoadDublin [place] [id number] CBC (AUTO) ([id number])Ordered By : Cashier Courtesy Booth on 03-27-2012 Erythrocyte distribution width Auto Ratio (RBC) 12.7 % Normal 12.3-15.4 [facility] Work Phone: Erythrocyte distribution width Ratio (RBC) 12.7 % Normal 12.3-15.4 [facility] Work Phone: Comment on above: PATIENT NOT FASTINGP ERFORMED BY: DAYDAY LabCo Gucuaf4010 [address] [facility] [id number] Hematocrit Auto Volume Fraction (Bld) 37.9 % Normal 34.0-46.6 [facility] Internal Medicine Work Phone: Hematocrit Volume Fraction (Bld) 37.9 % Normal 34.0-46.6 [facility] Internal Medicine Work Phone: Comment on above: PATIENT NOT FASTINGP ERFORMED BY: DAYDAY LabRomaine DangeloYkyguc1187 [address] [facility] [id number] Hemoglobin mass conc (Bld) 13.1 g/dL Normal 11.1-15.9 [facility] Work Phone: Comment on above: PATIENT NOT FASTINGP ERFORMED BY: DAYDAY LabCo Ynsphd5189 [address] [facility] [id number] MCH Auto Entitic mass (RBC) 31.6 pg Normal 26.6-33.0 [facility] Work Phone: MCH Entitic mass (RBC) 31.6 pg Normal 26.6-33.0 [facility] Work Phone: Comment on above: PATIENT NOT FASTINGP ERFORMED BY: DAYDAY LabCo Pzrimt4183 [address] [facility] [id number] MCHC Auto mass conc (RBC) 34.6 g/dL Normal 31.5-35.7 [facility] Work Phone: MCHC mass conc (RBC) 34.6 g/dL Normal 31.5-35.7 Comp [facility] Internal Medicine Work Phone: Comment on above: PATIENT NOT FASTINGP ERFORMED BY: DAYDAY [facility] Tuzynd4416 [address] [facility] [id number] MCV Auto Entitic volume (RBC) 92 fL Normal 79-97 [facility] Work Phone: MCV Entitic volume (RBC) 92 fL Normal 79-97 [facility] Work Phone: Comment on above: PATIENT NOT FASTINGP ERFORMED BY: DAYDAY Humbertoelier Rycono1795 [facility] [id number] Platelets #/vol (Bld) 249 {x10E3/uL} Normal 140-415 [facility] Work Phone: Comment on above: PATIENT NOT FASTINGP ERFORMED BY: DAYDAY JessieRomaine Kepkri7998 [facility] [id number] Platelets Auto #/vol (Bld) 249 {x10E3/uL} Normal 140-415 [facility] Work Phone: RBC #/vol (Bld) 4.14 {x10E6/uL} Normal 3.77-5.28 Comp [facility] Work Phone: Comment on above: PATIENT NOT FASTINGP ERFORMED BY: DAYDAY Mykonos SoftwareKarinaAngela Ville 1602570 [facility] [id number] RBC Auto #/vol (Bld) 4.14 {x10E6/uL} Normal 3.77-5.28 [facility] Work Phone: WBC #/vol (Bld) 9.2 {x10E3/uL} Normal 4.0-10.5 [facility]erensive Internal [facility] Work Phone: Comment on above: PATIENT NOT FASTINGP ERFORMED BY: DAYDAY The GrommetRobert Wood Johnson University Hospital SomersetLafliw5164 [facility] [id number] WBC Auto #/vol (Bld) 9.2 {x10E3/uL} Normal 4.0-10.5 [facility] Work Phone: Folate ([id number])Ordered By: Julio stem [employer] Referral Clerk on 03-27-2012 Folate mass conc 14.0 ng/mL Normal Comprehe nsive Internal Medicine Work Phone: Comment on above: A serum folate juany ntration of less than 3.1 ng/mL isconsidered to represent clinical deficiency. PATIENT NOT FASTINGP ERFORMED BY: The GrommetRobert Wood [facility] Hospital SomersetIxkeab0270 [facility] [id number] METABOLIC PANEL, COMPREHENSI VE (81222)Ordered By: Cashier Courtesy Booth on 03-27-2012 Albumin mass conc 4.5 g/dL Normal 3.5-4.8 Compreh ensive Internal Medicine Work Phone: Comment on above: PATIENT NOT FASTINGP ERFORMED BY: DAYDAY [facility] Udshqi2651 [address] RoadDublin [place] [id number] Albumin/Globulin mass ratio 1.8 {ratio} Normal 1.1-2.5 [facility] Work Phone: Comment on above: PATIENT NOT FASTINGP ERFORMED BY: CB [facility] Vcjlqv4634 [address] RoadDublin [place] [id number] ALP enzyme act/vol 70 [iU]/L Normal 25-165 Compre [facility] Internal Medicine Work Phone: Comment on above: PATIENT NOT FASTINGP ERFORMED BY: DAYDAY [facility] Camqko0198 [address] RoadDublin [place] [id number] ALT enzyme act/vol 20 [iU]/L Normal 0-32 Compre [facility] Internal Medicine Work Phone: Comment on above: PATIENT NOT FASTINGP ERFORMED BY: DAYDAY [facility] Qhkaho2233 [address] RoadDublin [place] [id number] AST enzyme act/vol 24 [iU]/L Normal 0-40 Compre [facility] Internal Medicine Work Phone: Comment on above: PATIENT NOT FASTINGP ERFORMED BY: CB [facility] Ubaqqk2790 [address] RoadDublin [place] [id number] Bilirubin mass conc 0.3 mg/dL Normal 0.0-1.2 Compr [facility] Internal Medicine Work Phone: Comment on above: PATIENT NOT FASTINGP ERFORMED BY: CB [facility] Vavrqn1552 [address] RoadDublin [place] [id number] Calcium mass conc 9.7 mg/dL Normal 8.6-10.2 Compreh ensive Internal Medicine Work Phone: Comment on above: PATIENT NOT FASTINGP ERFORMED BY: CB [facility] Soxxwp6787 [address] RoadDublin [place] [id number] Chloride molar conc 101 mmol/L Normal 97-108 Compr ehensive Internal Medicine Work Phone: Comment on above: PATIENT NOT FASTINGP ERFORMED BY: DAYDAY LabRomaine Parks6370 [facility] [id number] CO2 molar conc 22 mmol/L Normal 20-32 Comprehens [facility] Internal Medicine Work Phone: Comment on above: PATIENT NOT FASTINGP ERFORMED BY: DAYDAY [facility] Nxkapt9551 [facility] [id number] Creatinine mass conc 1.01 mg/dL Abnormal 0.57-1.00 Comp rehensive Internal Medicine Work Phone: Comment on above: PATIENT NOT FASTINGP ERFORMED BY: DAYDAY Dangelolin6370 [facility] [id number] GFR/1.73 sq M predicted among blacks CKD-EPI vol rate/area (S/P/Bld) 63 mL/min/1.73 Normal Comprehensiv e Internal Medicine Work Phone: Comment on above: PATIENT NOT FASTINGP ERFORMED BY: DAYDAY [facility] Ynrrgi6256 [facility] [id number] GFR/1.73 sq M predicted among non-blacks CKD-EPI vol rate/area (S/P/Bld) 55 mL/min/1.73 Abnormal [facility] Work Phone: Comment on above: PATIENT NOT FASTINGP ERFORMED BY: DAYDAY [facility] Zefpwy4956 [facility] [id number] Globulin Calculated mass conc (S) 2.5 g/dL Normal 1.5-4.5 [facility] Work Phone: Globulin mass conc (S) 2.5 g/dL Normal 1.5-4.5 [facility] Work Phone: Comment on above: PATIENT NOT FASTINGP ERFORMED BY: DAYDAY [facility] Jlyggf8904 [facility] [id number] Glucose mass conc 84 mg/dL Normal 65-99 Compreh ensive Internal Medicine Work Phone: Comment on above: PATIENT NOT FASTINGP ERFORMED BY: DAYDAY LabRomaine DangeloPzwoes8643 [address] [facility] [place] [id number] Potassium molar conc 4.8 mmol/L Normal 3.5-5.2 Comp rehensive Internal Medicine Work Phone: Comment on above: PATIENT NOT FASTINGP ERFORMED BY: DAYDAY LabCoelier Urcquw5012 [address] [facility] [id number] Protein mass conc 7.0 g/dL Normal 6.0-8.5 Compreh ensive Internal Medicine Work Phone: Comment on above: PATIENT NOT FASTINGP ERFORMED BY: DAYDAY LabCoelier DangeloUhnber4770 [address] [facility] [id number] Sodium molar conc 136 mmol/L Normal 134-144 Compreh ensive Internal Medicine Work Phone: Comment on above: PATIENT NOT FASTINGP ERFORMED BY: DAYDAY Parks6370 [facility] [id number] Urea nitrogen mass conc 15 mg/dL Normal 8-27 [facility] Work Phone: Comment on above: PATIENT NOT FASTINGP ERFORMED BY: DAYDAY LabRomaine DangeloIjwbji2826 [facility] [id number] Urea nitrogen/Creatinine mass ratio 15 mg/mg Normal 11-26 [facility] Work Phone: Comment on above: PATIENT NOT FASTINGP ERFORMED BY: DAYDAY Parks6370 [facility] [id number] RHEUMATOID FACTOR-QUANT (862 31)Ordered By: Cashier Courtesy Booth on 03-27-2012 Rheumatoid factor Qn 7.4 {IU/mL} Normal 0.0-13.9 Com prehensive Internal Medicine Work Phone: Comment on above: PATIENT NOT FASTINGP ERFORMED BY: DAYDAY LabRomaine DangeloIkuvtz2080 [address] [facility] [id number] SED RATE ERYTHROCYTE ([id number]) Ordered By: Cashier Courtesy Booth on 03-27-2012 ESR Velocity (Bld) 9 mm/h Normal 0-40 Compre [facility] Internal Medicine Work Phone: Comment on above: PATIENT NOT FASTINGP ERFORMED BY: CB [facility] Tmqkfa4928 [address] RoadDublin [place] [id number] TSH ([id number])Ordered By: Ying m [employer] Referral Clerk on 03-27-2012 Thyrotropin Qn 2.220 {uIU/mL} Normal 0.450-4.50 0 [facility] Work Phone: Comment on above: PATIENT NOT FASTINGP ERFORMED BY: CB [facility] Evkjsr0492 [address] RoadDublin [place] [id number] VITAMIN B-12 (CYANOCOBALAMIN ) (05622)Ordered By: Cashier Courtesy Booth on 03-27-2012 Cobalamin (Vitamin B12) mass conc 401 pg/mL Normal [id number] [facility] Work Phone: Comment on above: PATIENT NOT FASTINGP ERFORMED BY: CB [id number] [place] [id number] Culture, urine Bacteria identified Cx Nom (U) Klebsiella oxytoca [facility] Work Phone: Bacteria identified Cx Nom (U) Streptococcus group B [facility] Work Phone: Vital Signs Date Time Vital Sign Value Performing Clinician Facility 08-08-2024 07:49-0400 Body height 152.[address] Jian Viveros MD Work Phone: [facility] 08-08-2024 07:49-0400 Body weight 63.[address] Jian Viveros MD Work Phone: [facility] 08-07-2024 08:12-0400 Body mass index (BMI) [Ratio] 27.3 kg/m2 Dr. Jian Viveros MD Work Phone: [facility] 07-29-2024 13:26-0400 Body height 152.[address] Jian Viveros MD Work Phone: [facility] 07-29-2024 13:26-0400 Body mass index (BMI) [Ratio] 27.3 kg/m2 Dr. Jian Viveros MD Work Phone: [facility] 07-29-2024 13:26-0400 Body weight 63.[address] Jian Viveros MD Work Phone: [facility] 07-29-2024 13:26-0400 Diastolic blood pressure 84 mm[Hg] Dr. Jian Viveros MD Work Phone: [facility] 07-29-2024 13:26-0400 Heart rate 55 /min Dr. Jian Viveros MD Work Phone: [facility] 07-29-2024 13:26-0400 Respiratory rate 18 /min Dr. Jian Viveros MD Work Phone: 5(033)[phone] [place] [address] 07-29-2024 13:26-0400 SaO2% (BldA) [Mass fraction] 98 % Dr. Jian Viveros MD Work Phone: [facility] 07-29-2024 13:26-0400 Systolic blood pressure 180 mm[Hg] Dr. Jian Viveros MD Work Phone: [facility] 02-11-2024 13:42-0500 Body height 152.[address] Jian Viveros MD Work Phone: 9(745)264-808771 [place] [address] 02-11-2024 13:42-0500 Body mass index (BMI) [Ratio] 27.1 kg/m2 Dr. Jian Viveros MD Work Phone: 4(836)109-501471 [place] [address] 02-11-2024 13:42-0500 Body weight 63.[address] Jian Viveros MD Work Phone: [facility] 02-11-2024 13:42-0500 Diastolic blood pressure 94 mm[Hg] Dr. Jian Viveros MD Work Phone: [facility] 02-11-2024 13:42-0500 Heart rate 59 /min Dr. Jian Viveros MD Work Phone: [facility] 02-11-2024 13:42-0500 Respiratory rate 18 /min Dr. Jian Viveros MD Work Phone: [facility] 02-11-2024 13:42-0500 SaO2% (BldA) [Mass fraction] 100 % Dr. Jian Viveros MD Work Phone: [facility] 02-11-2024 13:42-0500 Systolic blood pressure 175 mm[Hg] Dr. Jian Viveros MD Work Phone: [facility] 06-19-2023 10:43-0400 Body height 152.[address] Jian Viveros Work Phone: [facility] 06-19-2023 10:43-0400 Body mass index (BMI) [Ratio] 27.7 kg/m2 Dr. Jian Viveros Work Phone: 1(151)[phone] [place] [address] 06-19-2023 10:43-0400 Body weight 64.[address] Jian Viveros Work Phone: 1(535)110-[address]371 [place] [address] 06-19-2023 10:43-0400 Diastolic blood pressure 76 mm[Hg] Dr. Jian Viveros Work Phone: [facility] 06-19-2023 10:43-0400 Heart rate 60 /min Dr. Jian Viveros Work Phone: [facility] 06-19-2023 10:43-0400 Respiratory rate 18 /min Dr. Jian Viveros Work Phone: [facility] 06-19-2023 10:43-0400 Systolic blood pressure 141 mm[Hg] Dr. Jian Viveros Work Phone: [facility] 08-08-2022 14:37-0400 Diastolic blood pressure 90 mm[Hg] Dr. Jian Viveros Work Phone: [facility] 08-08-2022 14:37-0400 Heart rate 60 /min Dr. Jian Viveros Work Phone: [facility] 08-08-2022 14:37-0400 Respiratory rate 16 /min Dr. Jian Viveros Work Phone: [facility] 08-08-2022 14:37-0400 SaO2% (BldA) [Mass fraction] 100 % Dr. Jian Viveros Work Phone: [facility] 08-08-2022 14:37-0400 Systolic blood pressure 178 mm[Hg] Dr. Jian Viveros Work Phone: [facility] 07-25-2022 14:00-0400 Diastolic blood pressure 71 mm[Hg] Dr. Jian Viveros Work Phone: [facility] 07-25-2022 14:00-0400 Heart rate 60 /min Dr. Jian Viveros Work Phone: [facility] 07-25-2022 14:00-0400 Respiratory rate 17 /min Dr. Jian Viveros Work Phone: [facility] 07-25-2022 14:00-0400 SaO2% (BldA) [Mass fraction] 97 % Dr. Jina Viveros Work Phone: [facility] 07-25-2022 14:00-0400 Systolic blood pressure 159 mm[Hg] Dr. Jian Viveros Work Phone: [facility] 07-25-2022 13:00-0400 Body temperature 97.9 [degF] Dr. Jian Viveros Work Phone: [facility] 07-25-2022 06:00-0400 Body mass index (BMI) [Ratio] 27.8 kg/m2 Dr. Jian Viveros Work Phone: [facility] 07-25-2022 06:00-0400 Body weight 64.[address] Jian Viveros Work Phone: [facility] 07-25-2022 04:00-0400 Inhaled oxygen concentration 25 % Dr. Jian Viveros Work Phone: [facility] 07-24-2022 15:09-0400 Body height 152.[address] Jian Viveros Work Phone: [facility] 07-24-2022 11:22-0400 Inhaled oxygen flow rate 8 L/min Dr. Jian Viveros Work Phone: [facility] 07-17-2022 14:52-0400 Body weight 61.[address] Jian Viveros Work Phone: [facility] 07-17-2022 14:52-0400 Diastolic blood pressure 90 mm[Hg] Dr. Jian Viveros Work Phone: [facility] 07-17-2022 14:52-0400 Heart rate 64 /min Dr. Jian Viveros Work Phone: [facility] 07-17-2022 14:52-0400 Respiratory rate 18 /min Dr. Jian Viveros Work Phone: [facility] 07-17-2022 14:52-0400 SaO2% (BldA) [Mass fraction] 100 % Dr. Jian Viveros Work Phone: [facility] 07-17-2022 14:52-0400 Systolic blood pressure 158 mm[Hg] Dr. Jian Viveros Work Phone: [facility] 05-30-2022 13:05-0400 Body temperature 97.7 [degF] Dr. Jian Viveros Work Phone: [facility] 05-30-2022 13:05-0400 Body weight 61.[address] Jian Viveros Work Phone: [facility] 05-30-2022 13:05-0400 Diastolic blood pressure 80 mm[Hg] Dr. Jian Viveros Work Phone: [facility] 05-30-2022 13:05-0400 Heart rate 60 /min Dr. Jian Viveros Work Phone: [facility] 05-30-2022 13:05-0400 Respiratory rate 16 /min Dr. Jian Viveros Work Phone: [facility] 05-30-2022 13:05-0400 SaO2% (BldA) [Mass fraction] 98 % Dr. Jian Viveros Work Phone: [facility] 05-30-2022 13:05-0400 Systolic blood pressure 176 mm[Hg] Dr. Jian Viveros Work Phone: [facility] 05-05-2022 14:47-0500 Body height 165.[address] Jian Viveros Work Phone: [facility] 05-05-2022 14:46-0500 Body mass index (BMI) [Ratio] 22.9 kg/m2 Dr. Jian Viveros Work Phone: [facility] 05-05-2022 14:46-0500 Body weight 62.[address] Jian Viveros Work Phone: [facility] 05-05-2022 14:46-0500 Diastolic blood pressure 93 mm[Hg] Dr. Jian Viveros Work Phone: [facility] 05-05-2022 14:46-0500 Heart rate 59 /min Dr. Jian Viveros Work Phone: [facility] 05-05-2022 14:46-0500 Respiratory rate 18 /min Dr. Jian Viveros Work Phone: [facility] 05-05-2022 14:46-0500 SaO2% (BldA) [Mass fraction] 100 % Dr. Jian Viveros Work Phone: [facility] 05-05-2022 14:46-0500 Systolic blood pressure 168 mm[Hg] Dr. Jian Viveros Work Phone: [facility] 01-05-2022 14:07-0400 Body height 165.[address] Jian Viveros Work Phone: [facility] 01-05-2022 14:06-0400 Body mass index (BMI) [Ratio] 22.6 kg/m2 Dr. Jian Viveros Work Phone: [facility] 01-05-2022 14:06-0400 Body temperature 98 [degF] Dr. Jian Viveros Work Phone: [facility] 01-05-2022 14:06-0400 Body weight 61.[address] Jian Viveros Work Phone: [facility] 01-05-2022 14:06-0400 Diastolic blood pressure 90 mm[Hg] Dr. Jian Viveros Work Phone: [facility] 01-05-2022 14:06-0400 Heart rate 60 /min Dr. Jian Viveros Work Phone: [facility] 01-05-2022 14:06-0400 Respiratory rate 15 /min Dr. Jian Viveros Work Phone: [facility] 01-05-2022 14:06-0400 SaO2% (BldA) [Mass fraction] 100 % Dr. Jian Viveros Work Phone: [facility] 01-05-2022 14:06-0400 Systolic blood pressure 153 mm[Hg] Dr. Jian Viveros Work Phone: [facility] 12-06-2021 10:21-0400 SaO2% (BldA) [Mass fraction] 99 % Dr. Jian Viveros Work Phone: [facility] Work Phone: 12-06-2021 09:37-0400 Heart rate 64 /min Dr. Jian Viveros Work Phone: [facility] Work Phone: 12-06-2021 09:30-0400 Body temperature 97.4 [degF] Dr. Jian Viveros Work Phone: [facility] Work Phone: 12-06-2021 09:30-0400 Diastolic blood pressure 70 mm[Hg] Dr. Jian Viveros Work Phone: [facility] Work Phone: 12-06-2021 09:30-0400 Respiratory rate 15 /min Dr. Jian Viveros Work Phone: [facility] Work Phone: 12-06-2021 09:30-0400 Systolic blood pressure 136 mm[Hg] Dr. Jian Viveros Work Phone: [facility] Work Phone: 12-06-2021 07:45-0400 Inhaled oxygen flow rate 2 L/min Dr. Jian Viveros Work Phone: [facility] Work Phone: 12-05-2021 14:43-0400 Body height 165.[address] Jian Viveros Work Phone: [facility] Work Phone: 12-05-2021 14:43-0400 Body weight 62.[address] Jian Viveros Work Phone: [facility] Work Phone: 12-04-2021 20:20-0400 Body mass index (BMI) [Ratio] 22.8 kg/m2 Dr. Jian Viveros Work Phone: [facility] Work Phone: 12-04-2021 19:26-0400 Body temperature 98.1 [degF] Dr. Jian Viveros Work Phone: [facility] Work Phone: 12-04-2021 19:26-0400 Diastolic blood pressure 71 mm[Hg] Dr. Jian Viveros Work Phone: [facility] Work Phone: 12-04-2021 19:26-0400 Heart rate 62 /min Dr. Jian Viveros Work Phone: [facility] Work Phone: 12-04-2021 19:26-0400 Inhaled oxygen flow rate 2 L/min Dr. Jian Viveros Work Phone: [facility] Work Phone: 12-04-2021 19:26-0400 Respiratory rate 30 /min Dr. Jian Viveros Work Phone: [facility] Work Phone: 12-04-2021 19:26-0400 SaO2% (BldA) [Mass fraction] 95 % Dr. Jian Viveros Work Phone: [facility] Work Phone: 12-04-2021 19:26-0400 Systolic blood pressure 97 mm[Hg] Dr. Jian Viveros Work Phone: [facility] Work Phone: 12-04-2021 16:44-0400 Body height 165.[address] Jian Viveros Work Phone: [facility] Work Phone: 12-04-2021 16:44-0400 Body mass index (BMI) [Ratio] 22.9 kg/m2 Dr. Jian Viveros Work Phone: [facility] Work Phone: 12-04-2021 16:44-0400 Body weight 62.[address] Jian Viveros Work Phone: [facility] Work Phone: 11-27-2021 14:00-0400 Diastolic blood pressure 58 mm[Hg] Dr. Jian Viveros Work Phone: [facility] Work Phone: 11-27-2021 14:00-0400 Heart rate 68 /min Dr. Jian Viveros Work Phone: [facility] Work Phone: 11-27-2021 14:00-0400 Respiratory rate 24 /min Dr. Jian Viveros Work Phone: [facility] Work Phone: 11-27-2021 14:00-0400 SaO2% (BldA) [Mass fraction] 97 % Dr. Jian Viveros Work Phone: [facility] Work Phone: 11-27-2021 14:00-0400 Systolic blood pressure 137 mm[Hg] Dr. Jian Viveros Work Phone: [facility] Work Phone: 11-27-2021 09:46-0400 Inhaled oxygen flow rate 2 L/min Dr. Jian Viveros Work Phone: [facility] Work Phone: 11-27-2021 09:31-0400 Body height 165.[address] Jian Viveros Work Phone: [facility] Work Phone: 11-27-2021 09:31-0400 Body mass index (BMI) [Ratio] 26.2 kg/m2 Dr. Jian Viveros Work Phone: [facility] Work Phone: 11-27-2021 09:31-0400 Body temperature 97.5 [degF] Dr. Jian Viveros Work Phone: [facility] Work Phone: 11-27-2021 09:31-0400 Body weight 71.[address] Jian Viveros Work Phone: [facility] Work Phone: 05-24-2021 12:26-0500 Body height 165.[address] Jian Savage Work Phone: [facility] Work Phone: 05-24-2021 12:26-0500 Body mass index (BMI) [Ratio] 23.9 kg/m2 Dr. Jian Savage Work Phone: [facility] Work Phone: 05-24-2021 12:26-0500 Body weight 65.[address] Jian Savage Work Phone: [facility] Work Phone: 05-24-2021 12:26-0500 Diastolic blood pressure 94 mm[Hg] Dr. Jian Savage Work Phone: [facility] Work Phone: 05-24-2021 12:26-0500 Heart rate 60 /min Dr. Jian Savage Work Phone: [facility] Work Phone: 05-24-2021 12:26-0500 Respiratory rate 16 /min Dr. Jian Savage Work Phone: [facility] Work Phone: 05-24-2021 12:26-0500 SaO2% (BldA) [Mass fraction] 98 % Dr. Jian Savage Work Phone: [facility] Work Phone: 05-24-2021 12:26-0500 Systolic blood pressure 186 mm[Hg] Dr. Jian Savage Work Phone: [facility] Work Phone: 11-08-2018 12:15-0400 BMI (Body Mass Index) 23.02 kg/m2 Rox Huerta [facility] Work Phone: 11-08-2018 12:15-0400 Body weight 63.73 kg Rox [facility] Work Phone: 11-08-2018 12:15-0400 BP Diastolic 82 mm[Hg] Rox Huerta [facility] Work Phone: Comment on above: Patient Position: Sitting; Cuff Location : Left Arm; Cuff Size: Large 11-08-2018 12:15-0400 BP Systolic 158 mm[Hg] Rox [facility] Work Phone: Comment on above: Patient Position: Sitting; Cuff Location : Left Arm; Cuff Size: Large 11-08-2018 12:15-0400 BSA (Body Surface Area) 1.71 m2 Rox Huerta [facility] Work Phone: 11-08-2018 12:15-0400 Height 166.37 cm Rox Huerta [facility] Work Phone: 11-08-2018 12:15-0400 Pulse (Heart Rate) 67 /min Rox Huerta [facility] Work Phone: Comment on above: Pattern: Regular 11-08-2018 12:15-0400 Pulse Oximetry 99 % Rox Huerta [facility] Work Phone: Comment on above: Room air 11-08-2018 12:15-0400 Respiratory Rate 18 /min Rox Huerta [facility] Work Phone: Comment on above: Pattern: Unlabored 10-25-2018 10:22-0400 BMI (Body Mass Index) 22.84 kg/m2 Rox Huerta [facility] Work Phone: 10-25-2018 10:22-0400 Body weight 63.22 kg Rox Huerta [facility] Work Phone: 10-25-2018 10:22-0400 BP Diastolic 92 mm[Hg] Rox Huerta [facility] Work Phone: Comment on above: Patient Position: Sitting; Cuff Location : Left Arm; Cuff Size: Standard 10-25-2018 10:22-0400 BP Systolic 180 mm[Hg] Rox Huerta [facility] Work Phone: Comment on above: Patient Position: Sitting; Cuff Location : Left Arm; Cuff Size: Standard 10-25-2018 10:22-0400 BSA (Body Surface Area) 1.71 m2 Rox Huerta [facility] Work Phone: 10-25-2018 10:22-0400 Height 166.37 cm Rox Huerta [facility] Work Phone: 10-25-2018 10:22-0400 Pulse (Heart Rate) 84 /min Rox Huerta [facility] Work Phone: Comment on above: Pattern: Regular 10-25-2018 10:22-0400 Pulse Oximetry 98 % Rox Huerta [facility] Work Phone: Comment on [...] 11:13-0500 Body weight 64.52 kg Rox Huerta [facility] Work Phone: 03-01-2018 11:13-0500 BP Diastolic 82 mm[Hg] Rox Huerta [facility] Work Phone: Comment on above: Patient Position: Sitting; Cuff Location : Left Arm; Cuff Size: Large 03-01-2018 11:13-0500 BP Systolic 124 mm[Hg] Rox Huerta [facility] Work Phone: Comment on above: Patient Position: Sitting; Cuff Location : Left Arm; Cuff Size: Large 03-01-2018 11:13-0500 BSA (Body Surface Area) 1.72 m2 Rox Huerta [facility] Work Phone: 03-01-2018 11:13-0500 Height 166.37 cm Rox Huerta [facility] Work Phone: 03-01-2018 11:13-0500 Pulse (Heart Rate) 84 /min Rox Huerta [facility] Work Phone: Comment on above: Pattern: Regular 03-01-2018 11:13-0500 Pulse Oximetry 99 % Rox Huerta [facility] Work Phone: Comment on above: Room air 03-01-2018 11:13-0500 Respiratory Rate 18 /min Rox Huerta [facility] Work Phone: Comment on above: Pattern: Unlabored 03-01-2018 11:13-0500 Weight 64.52 kg Rox Huerta [facility] Work Phone: 01-21-2018 11:37-0500 BMI (Body Mass Index) 23.31 kg/m2 Rox Huerta [facility] Work Phone: 01-21-2018 11:37-0500 Body weight 64.52 kg Rox Huerta [facility] Work Phone: 01-21-2018 11:37-0500 BP Diastolic 70 mm[Hg] Rox Huerta [facility] Work Phone: Comment on above: Patient Position: Sitting; Cuff Location : Left Arm; Cuff Size: Standard 01-21-2018 11:37-0500 BP Systolic 128 mm[Hg] Rox Huerta [facility] Work Phone: Comment on above: Patient Position: Sitting; Cuff Location : Left Arm; Cuff Size: Standard 01-21-2018 11:37-0500 BSA (Body Surface Area) 1.72 m2 Rox Huerta [facility] Work Phone: 01-21-2018 11:37-0500 Height 166.37 cm Rox Huerta [facility] Work Phone: 01-21-2018 11:37-0500 Pulse (Heart Rate) 66 /min Rox Huerta [facility] Work Phone: Comment on above: Pattern: Regular 01-21-2018 11:37-0500 Pulse Oximetry 99 % Rox Huerta [facility] Work Phone: Comment on above: Room air 01-21-2018 11:37-0500 Respiratory Rate 18 /min Rox Huerta [facility] Work Phone: Comment on above: Pattern: Unlabored 01-21-2018 11:37-0500 Weight 64.52 kg Rox Huerta [facility] Work Phone: 12-31-2017 10:12-0400 BMI (Body Mass Index) 23.19 kg/m2 Rox Huerta [facility] Work Phone: 12-31-2017 10:12-0400 Body weight 64.18 kg Rox Huerta [facility] Work Phone: 12-31-2017 10:12-0400 BP Diastolic 78 mm[Hg] Rox Huerta [facility] Work Phone: Comment on above: Patient Position: Sitting; Cuff Location : Left Arm; Cuff Size: Standard 12-31-2017 10:12-0400 BP Systolic 138 mm[Hg] Rox Huerta [facility] Work Phone: Comment on above: Patient Position: Sitting; Cuff Location : Left Arm; Cuff Size: Standard 12-31-2017 10:12-0400 BSA (Body Surface Area) 1.72 m2 Rox Huerta [facility] Work Phone: 12-31-2017 10:12-0400 Height 166.37 cm Rox Huerta [facility] Work Phone: 12-31-2017 10:12-0400 Pulse (Heart Rate) 80 /min Rox Huerta [facility] Work Phone: Comment on above: Pattern: Regular 12-31-2017 10:12-0400 Pulse Oximetry 98 % Rox Huerta [facility] Work Phone: Comment on above: Room air 12-31-2017 10:12-0400 Respiratory Rate 18 /min Rox Huerta [facility] Work Phone: Comment on above: Pattern: Unlabored 12-31-2017 10:12-0400 Weight 64.18 kg Rox Huerta [facility] Work Phone: 09-27-2017 12:18-0400 BMI (Body Mass Index) 23.29 kg/m2 Rox Huerta [facility] Work Phone: 09-27-2017 12:18-0400 Body Temperature 97.6 [degF] Rox Huerta [facility] Work Phone: Comment on above: Method: Temporal 09-27-2017 12:18-0400 Body weight 64.47 kg Rox Huerta [facility] Work Phone: 09-27-2017 12:18-0400 BP Diastolic 68 mm[Hg] Rox Huerta [facility] Work Phone: Comment on above: Patient Position: Sitting; Cuff Location : Left Arm; Cuff Size: Large 09-27-2017 12:18-0400 BP Systolic 140 mm[Hg] Rox Huerta [facility] Work Phone: Comment on above: Patient Position: Sitting; Cuff Location : Left Arm; Cuff Size: Large 09-27-2017 12:18-0400 BSA (Body Surface Area) 1.72 m2 Rox Huerta [facility] Work Phone: 09-27-2017 12:18-0400 Height 166.37 cm Rox Huerta [facility] Work Phone: 09-27-2017 12:18-0400 Pulse (Heart Rate) 80 /min Rox He[facility] Work Phone: Comment on above: Pattern: Regular 09-27-2017 12:18-0400 Pulse Oximetry 97 % Rox Huerta [facility] Work Phone: Comment on above: Room air 09-27-2017 12:18-0400 Respiratory Rate 16 /min oRx Huerta [facility] Work Phone: Comment on above: Pattern: Unlabored 09-27-2017 12:18-0400 Weight 64.47 kg Rox Huerta [facility] Work Phone: 08-23-2017 12:47-0400 BMI (Body Mass Index) 22.98 kg/m2 Rox Huerta [facility] Work Phone: 08-23-2017 12:47-0400 Body weight 63.62 kg Rox Huerta [facility] Work Phone: 08-23-2017 12:47-0400 BP Diastolic 80 mm[Hg] Rox Huerta [facility] Work Phone: Comment on above: Patient Position: Sitting; Cuff Location : Left Arm; Cuff Size: Standard 08-23-2017 12:47-0400 BP Systolic 144 mm[Hg] Rox Hureta [facility] Work Phone: Comment on above: Patient Position: Sitting; Cuff Location : Left Arm; Cuff Size: Standard 08-23-2017 12:47-0400 BSA (Body Surface Area) 1.71 m2 Rox Huerta [facility] Work Phone: 08-23-2017 12:47-0400 Height 166.37 cm Rox Huerta [facility] Work Phone: 08-23-2017 12:47-0400 Pulse (Heart Rate) 64 /min Rox Huerta [facility] Work Phone: Comment on above: Pattern: Regular 08-23-2017 12:47-0400 Respiratory Rate 16 /min Rox Huerta [facility] Work Phone: Comment on above: Pattern: Unlabored 08-23-2017 12:47-0400 Weight 63.62 kg Rox Huerta [facility] Work Phone: 08-02-2017 13:53-0400 BMI (Body Mass Index) 22.98 kg/m2 Rox Huerta [facility] Work Phone: Comment on above: hearing wnlDr. Adhikari and had a glauc kong test 08-02-2017 13:53-0400 Body weight 63.62 kg Rox Huerta [facility] Work Phone: Comment on above: hearing wnlDr. Adhikari and had a glauc kong test 08-02-2017 13:53-0400 BP Diastolic 86 mm[Hg] Rox Huerta [facility] Work Phone: Comment on above: Patient Position: Sitting; Cuff Location : Left Arm; Cuff Size: Large hearing wnlDr. Jazte rson and had a glaucoma test 08-02-2017 13:53-0400 BP Systolic 146 mm[Hg] Rox Huerta [facility] Work Phone: Comment on above: Patient Position: Sitting; Cuff Location : Left Arm; Cuff Size: Large hearing wnlDr. Patte rson and had a glaucoma test 08-02-2017 13:53-0400 BSA (Body Surface Area) 1.71 m2 Rox Huerta [facility] Work Phone: Comment on above: hearing wnlDr. Adhikari and had a glauc kong test 08-02-2017 13:53-0400 Height 166.37 cm Rox Huerta [facility] Work Phone: Comment on above: hearing wnlDr. Adhikari and had a glauc kong test 08-02-2017 13:53-0400 Pulse (Heart Rate) 58 /min [facility] Internal Medicine Work Phone: Comment on above: Pattern: Regular hearing wnlDr. Álvaro ortega and had a glaucoma test 08-02-2017 13:53-0400 Pulse Oximetry 98 % [facility] Internal Medicine Work Phone: Comment on above: Room air hearing wnlDr. Álvaro ortega and had a glaucoma test 08-02-2017 13:53-0400 Respiratory Rate 18 /min [facility] Internal Medicine Work Phone: Comment on above: Pattern: Unlabored hearing wnlDr. Álvaro ortega and had a glaucoma test 08-02-2017 13:53-0400 Weight 63.62 kg [facility] Internal Medicine Work Phone: Comment on above: hearing willlDr. Zeynep and had a glauc kong test 07-04-2017 11:32-0400 BMI (Body Mass Index) 23.29 kg/m2 [facility] Internal Medicine Work Phone: 07-04-2017 11:32-0400 Body Temperature 97.1 [degF] [facility] Internal Medicine Work Phone: Comment on above: Method: Temporal 07-04-2017 11:32-0400 Body weight 64.47 kg [facility] Internal Medicine Work Phone: 07-04-2017 11:32-0400 BP Diastolic 70 mm[Hg] [facility] Internal Medicine Work Phone: Comment on above: Patient Position: Sitting; Cuff Location : Left Arm; Cuff Size: Large 07-04-2017 11:32-0400 BP Systolic 158 mm[Hg] [facility] Internal Medicine Work Phone: Comment on above: Patient Position: Sitting; Cuff Location : Left Arm; Cuff Size: Large 07-04-2017 11:32-0400 BSA (Body Surface Area) 1.72 m2 [facility] Internal Medicine Work Phone: 07-04-2017 11:32-0400 Height 166.37 cm [facility] Internal Medicine Work Phone: 07-04-2017 11:32-0400 Pulse (Heart Rate) 70 /min [facility] Internal Medicine Work Phone: Comment on above: Pattern: Regular 07-04-2017 11:32-0400 Pulse Oximetry 99 % [facility] Internal Medicine Work Phone: Comment on above: Room air 07-04-2017 11:32-0400 Respiratory Rate 18 /min [facility] Internal Medicine Work Phone: Comment on above: Pattern: Unlabored 07-04-2017 11:32-0400 Weight 64.47 kg [facility] Internal Medicine Work Phone: 06-25-2017 11:36-0400 BMI (Body Mass Index) 23.8 kg/m2 [facility] Internal Medicine Work Phone: 06-25-2017 11:36-0400 Body weight 65.89 kg [facility] Internal Medicine Work Phone: 06-25-2017 11:36-0400 BP Diastolic 90 mm[Hg] [facility] Internal Medicine Work Phone: Comment on above: Patient Position: Sitting; Cuff Location : Left Arm; Cuff Size: Large 06-25-2017 11:36-0400 BP Systolic 154 mm[Hg] [facility] Internal Medicine Work Phone: Comment on above: Patient Position: Sitting; Cuff Location : Left Arm; Cuff Size: Large 06-25-2017 11:36-0400 BSA (Body Surface Area) 1.74 m2 [facility] Internal Medicine Work Phone: 06-25-2017 11:36-0400 Height 166.37 cm [facility] Internal Medicine Work Phone: 06-25-2017 11:36-0400 Pulse (Heart Rate) 75 /min [facility] Internal Medicine Work Phone: Comment on above: Pattern: Regular 06-25-2017 11:36-0400 Pulse Oximetry 97 % [facility] Internal Medicine Work Phone: Comment on above: Room air 06-25-2017 11:36-0400 Respiratory Rate 18 /min [facility] Internal Medicine Work Phone: Comment on above: Pattern: Unlabored 06-25-2017 11:36-0400 Weight 65.89 kg [facility] Internal Medicine Work Phone: 05-21-2017 14:52-0500 BMI (Body Mass Index) 23.93 kg/m2 [facility] Internal Medicine Work Phone: 05-21-2017 14:52-0500 Body Temperature 98.2 [degF] [facility] Internal Medicine Work Phone: 05-21-2017 14:52-0500 Body weight 66.23 kg [facility] Internal Medicine Work Phone: 05-21-2017 14:52-0500 BP Diastolic 82 mm[Hg] [facility] Internal Medicine Work Phone: Comment on above: Patient Position: Sitting; Cuff Location : Left Arm; Cuff Size: Standard 05-21-2017 14:52-0500 BP Systolic 154 mm[Hg] [facility] Internal Medicine Work Phone: Comment on above: Patient Position: Sitting; Cuff Location : Left Arm; Cuff Size: Standard 05-21-2017 14:52-0500 BSA (Body Surface Area) 1.74 m2 [facility] Internal Medicine Work Phone: 05-21-2017 14:52-0500 Height 166.37 cm [facility] Internal Medicine Work Phone: 05-21-2017 14:52-0500 Pulse (Heart Rate) 77 /min [facility] Internal Medicine Work Phone: Comment on above: Pattern: Regular 05-21-2017 14:52-0500 Pulse Oximetry 99 % [facility] Internal Medicine Work Phone: Comment on above: Room air 05-21-2017 14:52-0500 Respiratory Rate 16 /min [facility] Internal Medicine Work Phone: Comment on above: Pattern: Unlabored 05-21-2017 14:52-0500 Weight 66.23 kg [facility] Internal Medicine Work Phone: 04-12-2017 12:53-0500 BMI (Body Mass Index) 23.82 kg/m2 [facility] Internal Medicine Work Phone: 04-12-2017 12:53-0500 Body weight 65.94 kg [facility] Internal Medicine Work Phone: 04-12-2017 12:53-0500 BP Diastolic 80 mm[Hg] [facility] Internal Medicine Work Phone: Comment on above: Patient Position: Sitting; Cuff Location : Left Arm; Cuff Size: Large 04-12-2017 12:53-0500 BP Systolic 122 mm[Hg] [facility] Internal Medicine Work Phone: Comment on above: Patient Position: Sitting; Cuff Location : Left Arm; Cuff Size: Large 04-12-2017 12:53-0500 BSA (Body Surface Area) 1.74 m2 [facility] Internal Medicine Work Phone: 04-12-2017 12:53-0500 Height 166.37 cm [facility] Internal Medicine Work Phone: 04-12-2017 12:53-0500 Pulse (Heart Rate) 77 /min [facility] Internal Medicine Work Phone: Comment on above: Pattern: Regular 04-12-2017 12:53-0500 Pulse Oximetry 98 % [facility] Internal Medicine Work Phone: Comment on above: Room air 04-12-2017 12:53-0500 Respiratory Rate 18 /min [facility] Internal Medicine Work Phone: Comment on [...] 10:12-0500 Body weight 68.27 kg [facility] Internal Medicine Work Phone: 03-22-2017 10:12-0500 BP Diastolic 60 mm[Hg] [facility] Internal Medicine Work Phone: Comment on above: Patient Position: Sitting; Cuff Location : Left Arm; Cuff Size: Large 03-22-2017 10:12-0500 BP Systolic 110 mm[Hg] [facility] Internal Medicine Work Phone: Comment on above: Patient Position: Sitting; Cuff Location : Left Arm; Cuff Size: Large 03-22-2017 10:12-0500 BSA (Body Surface Area) 1.76 m2 [facility] Internal Medicine Work Phone: 03-22-2017 10:12-0500 Height 166.37 cm [facility] Internal Medicine Work Phone: 03-22-2017 10:12-0500 Pulse (Heart Rate) 61 /min [facility] Internal Medicine Work Phone: Comment on above: Pattern: Regular 03-22-2017 10:12-0500 Pulse Oximetry 98 % [facility] Internal Medicine Work Phone: Comment on above: Room air 03-22-2017 10:12-0500 Respiratory Rate 18 /min [facility] Internal Medicine Work Phone: Comment on above: Pattern: Unlabored 03-22-2017 10:12-0500 Weight 68.27 kg [facility] Internal Medicine Work Phone: 02-05-2017 11:21-0500 BMI (Body Mass Index) 24.66 kg/m2 [facility] Internal Medicine Work Phone: 02-05-2017 11:21-0500 Body weight 68.27 kg [facility] Internal Medicine Work Phone: 02-05-2017 11:21-0500 BP Diastolic 70 mm[Hg] [facility] Internal Medicine Work Phone: Comment on above: Patient Position: Sitting; Cuff Location : Left Arm; Cuff Size: Standard 02-05-2017 11:21-0500 BP Systolic 120 mm[Hg] [facility] Internal Medicine Work Phone: Comment on above: Patient Position: Sitting; Cuff Location : Left Arm; Cuff Size: Standard 02-05-2017 11:21-0500 BSA (Body Surface Area) 1.76 m2 [facility] Internal Medicine Work Phone: 02-05-2017 11:21-0500 Height 166.37 cm [facility] Internal Medicine Work Phone: 02-05-2017 11:21-0500 Pulse (Heart Rate) 82 /min [facility] Internal Medicine Work Phone: Comment on above: Pattern: Regular 02-05-2017 11:21-0500 Pulse Oximetry 98 % [facility] Internal Medicine Work Phone: Comment on above: Room air 02-05-2017 11:21-0500 Respiratory Rate 16 /min [facility] Internal Medicine Work Phone: Comment on above: Pattern: Unlabored 02-05-2017 11:21-0500 Weight 68.27 kg [facility] Internal Medicine Work Phone: 11-17-2016 11:22-0400 BMI (Body Mass Index) 24.99 kg/m2 [facility] Internal Medicine Work Phone: 11-17-2016 11:22-0400 Body weight 69.17 kg [facility] Internal Medicine Work Phone: 11-17-2016 11:22-0400 BP Diastolic 78 mm[Hg] [facility] Internal Medicine Work Phone: Comment on above: Patient Position: Sitting; Cuff Location : Left Arm; Cuff Size: Large 11-17-2016 11:22-0400 BP Systolic 122 mm[Hg] [facility] Internal Medicine Work Phone: Comment on above: Patient Position: Sitting; Cuff Location : Left Arm; Cuff Size: Large 11-17-2016 11:22-0400 BSA (Body Surface Area) 1.77 m2 [facility] Internal Medicine Work Phone: 11-17-2016 11:22-0400 Height 166.37 cm [facility] Internal Medicine Work Phone: 11-17-2016 11:22-0400 Pulse (Heart Rate) 77 /min [facility] Internal Medicine Work Phone: Comment on above: Pattern: Regular 11-17-2016 11:22-0400 Pulse Oximetry 98 % [facility] Internal Medicine Work Phone: Comment on above: Room air 11-17-2016 11:22-0400 Respiratory Rate 16 /min [facility] Internal Medicine Work Phone: Comment on above: Pattern: Unlabored 11-17-2016 11:22-0400 Weight 69.17 kg [facility] Internal Medicine Work Phone: 10-05-2016 10:18-0400 BMI (Body Mass Index) 24.48 kg/m2 [facility] Internal Medicine Work Phone: 10-05-2016 10:18-0400 Body weight 67.76 kg [facility] Internal Medicine Work Phone: 10-05-2016 10:18-0400 BP Diastolic 78 mm[Hg] [facility] Internal Medicine Work Phone: Comment on above: Patient Position: Sitting; Cuff Location : Left Arm; Cuff Size: Large 10-05-2016 10:18-0400 BP Systolic 120 mm[Hg] [facility] Internal Medicine Work Phone: Comment on above: Patient Position: Sitting; Cuff Location : Left Arm; Cuff Size: Large 10-05-2016 10:18-0400 BSA (Body Surface Area) 1.76 m2 [facility] Internal Medicine Work Phone: 10-05-2016 10:18-0400 Height 166.37 cm [facility] Internal Medicine Work Phone: 10-05-2016 10:18-0400 Pulse (Heart Rate) 89 /min [facility] Internal Medicine Work Phone: Comment on above: Pattern: Regular 10-05-2016 10:18-0400 Pulse Oximetry 98 % [facility] Internal Medicine Work Phone: Comment on above: Room air 10-05-2016 10:18-0400 Respiratory Rate 18 /min [facility] Internal Medicine Work Phone: Comment on above: Pattern: Unlabored 10-05-2016 10:18-0400 Weight 67.76 kg [facility] Internal Medicine Work Phone: 08-30-2016 11:59-0400 BMI (Body Mass Index) 24.27 kg/m2 [facility] Internal Medicine Work Phone: 08-30-2016 11:59-0400 Body weight 67.19 kg [facility] Internal Medicine Work Phone: 08-30-2016 11:59-0400 BP Diastolic 78 mm[Hg] [facility] Internal Medicine Work Phone: Comment on above: Patient Position: Sitting; Cuff Location : Left Arm; Cuff Size: Standard 08-30-2016 11:59-0400 BP Systolic 120 mm[Hg] [facility] Internal Medicine Work Phone: Comment on above: Patient Position: Sitting; Cuff Location : Left Arm; Cuff Size: Standard 08-30-2016 11:59-0400 BSA (Body Surface Area) 1.75 m2 [facility] Internal Medicine Work Phone: 08-30-2016 11:59-0400 Height 166.37 cm [facility] Internal Medicine Work Phone: 08-30-2016 11:59-0400 Pulse (Heart Rate) 76 /min [facility] Internal Medicine Work Phone: Comment on above: Pattern: Regular 08-30-2016 11:59-0400 Pulse Oximetry 98 % [facility] Internal Medicine Work Phone: Comment on above: Room air 08-30-2016 11:59-0400 Respiratory Rate 18 /min [facility] Internal Medicine Work Phone: Comment on above: Pattern: Unlabored 08-30-2016 11:59-0400 Weight 67.19 kg [facility] Internal Medicine Work Phone: 08-28-2016 14:28-0400 BMI (Body Mass Index) 24.27 kg/m2 [facility] Internal Medicine Work Phone: 08-28-2016 14:28-0400 Body weight 67.19 kg [facility] Internal Medicine Work Phone: 08-28-2016 14:28-0400 BP Diastolic 84 mm[Hg] [facility] Internal Medicine Work Phone: Comment on above: Patient Position: Sitting; Cuff Location : Left Arm; Cuff Size: Standard 08-28-2016 14:28-0400 BP Systolic 182 mm[Hg] [facility] Internal Medicine Work Phone: Comment on above: Patient Position: Sitting; Cuff Location : Left Arm; Cuff Size: Standard 08-28-2016 14:28-0400 BSA (Body Surface Area) 1.75 m2 [facility] Internal Medicine Work Phone: 08-28-2016 14:28-0400 Height 166.37 cm [facility] Internal Medicine Work Phone: 08-28-2016 14:28-0400 Pulse (Heart Rate) 92 /min [facility] Internal Medicine Work Phone: Comment on above: Pattern: Regular 08-28-2016 14:28-0400 Pulse Oximetry 98 % [facility] Internal Medicine Work Phone: Comment on above: Room air 08-28-2016 14:28-0400 Respiratory Rate 18 /min [facility] Internal Medicine Work Phone: Comment on above: Pattern: Unlabored 08-28-2016 14:28-0400 Weight 67.19 kg [facility] Internal Medicine Work Phone: 06-29-2016 11:32-0400 BMI (Body Mass Index) 24.77 kg/m2 [facility] Internal Medicine Work Phone: 06-29-2016 11:32-0400 Body weight 68.55 kg [facility] Internal Medicine Work Phone: 06-29-2016 11:32-0400 BP Diastolic 80 mm[Hg] [facility] Internal Medicine Work Phone: Comment on above: Patient Position: Sitting; Cuff Location : Left Arm; Cuff Size: Standard 06-29-2016 11:32-0400 BP Systolic 138 mm[Hg] [facility] Internal Medicine Work Phone: Comment on above: Patient Position: Sitting; Cuff Location : Left Arm; Cuff Size: Standard 06-29-2016 11:32-0400 BSA (Body Surface Area) 1.77 m2 [facility] Internal Medicine Work Phone: 06-29-2016 11:32-0400 Height 166.37 cm [facility] Internal Medicine Work Phone: 06-29-2016 11:32-0400 Pulse (Heart Rate) 76 /min [facility] Internal Medicine Work Phone: Comment on above: Pattern: Regular 06-29-2016 11:32-0400 Pulse Oximetry 98 % [facility] Internal Medicine Work Phone: Comment on above: Room air 06-29-2016 11:32-0400 Respiratory Rate 18 /min [facility] Internal Medicine Work Phone: Comment on above: Pattern: Unlabored 06-29-2016 11:32-0400 Weight 68.55 kg [facility] Internal Medicine Work Phone: 06-15-2016 11:17-0400 BMI (Body Mass Index) 24.77 kg/m2 [facility] Internal [facility] Work Phone: 06-15-2016 11:17-0400 Body weight 68.55 kg [facility] Internal Medicine Work Phone: 06-15-2016 11:17-0400 BP Diastolic 78 mm[Hg] [facility] Internal Medicine Work Phone: Comment on above: Patient Position: Sitting; Cuff Location : Left Arm; Cuff Size: Large 06-15-2016 11:17-0400 BP Systolic 138 mm[Hg] [facility] Internal Medicine Work Phone: Comment on above: Patient Position: Sitting; Cuff Location : Left Arm; Cuff Size: Large 06-15-2016 11:17-0400 BSA (Body Surface Area) 1.77 m2 [facility] Internal Medicine Work Phone: 06-15-2016 11:17-0400 Height 166.37 cm [facility] Internal Medicine Work Phone: 06-15-2016 11:17-0400 Pulse (Heart Rate) 80 /min [facility] Internal Medicine Work Phone: Comment on above: Pattern: Regular 06-15-2016 11:17-0400 Pulse Oximetry 98 % [facility] Internal Medicine Work Phone: Comment on above: Room air 06-15-2016 11:17-0400 Respiratory Rate 18 /min [facility] Internal Medicine Work Phone: Comment on above: Pattern: Unlabored 06-15-2016 11:17-0400 Weight 68.55 kg [facility] Internal Medicine Work Phone: 05-25-2016 11:19-0500 BMI (Body Mass Index) 24.83 kg/m2 [facility] Internal [facility] Work Phone: 05-25-2016 11:19-0500 Body weight 68.72 kg [facility] Internal Medicine Work Phone: 05-25-2016 11:19-0500 BP Diastolic 82 mm[Hg] [facility] Internal Medicine Work Phone: Comment on above: Patient Position: Sitting; Cuff Location : Left Arm; Cuff Size: Large 05-25-2016 11:19-0500 BP Systolic 158 mm[Hg] [facility] Internal Medicine Work Phone: Comment on above: Patient Position: Sitting; Cuff Location : Left Arm; Cuff Size: Large 05-25-2016 11:19-0500 BSA (Body Surface Area) 1.77 m2 [facility] Internal Medicine Work Phone: 05-25-2016 11:19-0500 Height 166.37 cm [facility] Internal Medicine Work Phone: 05-25-2016 11:19-0500 Pulse (Heart Rate) 90 /min [facility] Internal Medicine Work Phone: Comment on above: Pattern: Regular 05-25-2016 11:19-0500 Pulse Oximetry 98 % [facility] Internal Medicine Work Phone: Comment on above: Room air 05-25-2016 11:19-0500 Respiratory Rate 18 /min [facility] Internal Medicine Work Phone: Comment on above: Pattern: Unlabored 05-25-2016 11:19-0500 Weight 68.72 kg [facility] Internal Medicine Work Phone: 03-06-2016 11:26-0500 BMI (Body Mass Index) 24.46 kg/m2 [facility] Internal Medicine Work Phone: 03-06-2016 11:26-0500 Body weight 67.7 kg [facility] Internal Medicine Work Phone: 03-06-2016 11:26-0500 BP Diastolic 78 mm[Hg] [facility] Internal Medicine Work Phone: Comment on above: Patient Position: Sitting; Cuff Location : Left Arm; Cuff Size: Standard 03-06-2016 11:26-0500 BP Systolic 138 mm[Hg] [facility] Internal Medicine Work Phone: Comment on above: Patient Position: Sitting; Cuff Location : Left Arm; Cuff Size: Standard 03-06-2016 11:26-0500 BSA (Body Surface Area) 1.76 m2 [facility] Internal Medicine Work Phone: 03-06-2016 11:26-0500 Height 166.37 cm [facility] Internal Medicine Work Phone: 03-06-2016 11:26-0500 Pulse (Heart Rate) 89 /min [facility] Internal Medicine Work Phone: Comment on above: Pattern: Regular 03-06-2016 11:26-0500 Pulse Oximetry 99 % [facility] Internal Medicine Work Phone: Comment on above: Room air 03-06-2016 11:26-0500 Respiratory Rate 18 /min [facility] Internal Medicine Work Phone: Comment on above: Pattern: Unlabored 03-06-2016 11:26-0500 Weight 67.7 kg [facility] Internal Medicine Work Phone: 02-08-2016 11:30-0500 BMI (Body Mass Index) 24.6 kg/m2 [facility] Internal Medicine Work Phone: Comment on above: hearing wnlDr. Rivas and had a glaucom a test done 02-08-2016 11:30-0500 Body weight 68.1 kg [facility] Internal Medicine Work Phone: Comment on above: hearing wnlDr. Rivas and had a glaucom a test done 02-08-2016 11:30-0500 BP Diastolic 82 mm[Hg] [facility] Internal Medicine Work Phone: Comment on above: Patient Position: Sitting; Cuff Location : Left Arm; Cuff Size: Standard hearing wnlDr. Judith christopher and had a glaucoma test done 02-08-2016 11:30-0500 BP Systolic 148 mm[Hg] [facility] Internal Medicine Work Phone: Comment on above: Patient Position: Sitting; Cuff Location : Left Arm; Cuff Size: Standard hearing wnlDr. Wong er and had a glaucoma test done 02-08-2016 11:30-0500 BSA (Body Surface Area) 1.76 m2 [facility] Internal Medicine Work Phone: Comment on above: hearing wnlDr. Rivas and had a glaucom a test done 02-08-2016 11:30-0500 Height 166.37 cm [facility] Internal Medicine Work Phone: Comment on above: hearing willlDrKatharina Rivas and had a glaucom a test done 02-08-2016 11:30-0500 Pulse (Heart Rate) 79 /min [facility] Internal Medicine Work Phone: Comment on above: Pattern: Regular hearing wnlDr. Wong er and had a glaucoma test done 02-08-2016 11:30-0500 Pulse Oximetry 98 % [facility] Internal Medicine Work Phone: Comment on above: Room air hearing wnlDr. Wong er and had a glaucoma test done 02-08-2016 11:30-0500 Respiratory Rate 18 /min [facility] Internal Medicine Work Phone: Comment on above: Pattern: Unlabored hearing wnlDr. Wong er and had a glaucoma test done 02-08-2016 11:30-0500 Weight 68.1 kg [facility] Internal Medicine Work Phone: Comment on above: hearing wnlDr. Rivas and had a glaucom a test done 01-20-2016 10:58-0400 BMI (Body Mass Index) 25.28 kg/m2 [facility] Internal Medicine Work Phone: 01-20-2016 10:58-0400 Body weight 69.97 kg [facility] Internal Medicine Work Phone: 01-20-2016 10:58-0400 BP Diastolic 78 mm[Hg] [facility] Internal Medicine Work Phone: Comment on above: Patient Position: Sitting; Cuff Location : Left Arm; Cuff Size: Large 01-20-2016 10:58-0400 BP Systolic 142 mm[Hg] [facility] Internal Medicine Work Phone: Comment on above: Patient Position: Sitting; Cuff Location : Left Arm; Cuff Size: Large 01-20-2016 10:58-0400 BSA (Body Surface Area) 1.78 m2 [facility] Internal Medicine Work Phone: 01-20-2016 10:58-0400 Height 166.37 cm [facility] Internal Medicine Work Phone: 01-20-2016 10:58-0400 Pulse (Heart Rate) 71 /min [facility] Internal Medicine Work Phone: Comment on above: Pattern: Regular 01-20-2016 10:58-0400 Pulse Oximetry 98 % [facility] Internal Medicine Work Phone: Comment on above: Room air 01-20-2016 10:58-0400 Respiratory Rate 18 /min [facility] Internal Medicine Work Phone: Comment on above: Pattern: Unlabored 01-20-2016 10:58-0400 Weight 69.97 kg [facility] Internal Medicine Work Phone: 08-11-2015 11:02-0400 BMI (Body Mass Index) 23.11 kg/m2 [facility] Internal Medicine Work Phone: 08-11-2015 11:02-0400 Body weight 63.96 kg [facility] Internal Medicine Work Phone: 08-11-2015 11:02-0400 BP Diastolic 60 mm[Hg] [facility] Internal Medicine Work Phone: Comment on above: Patient Position: Sitting; Cuff Location : Left Arm; Cuff Size: Standard 08-11-2015 11:02-0400 BP Systolic 120 mm[Hg] [facility] Internal Medicine Work Phone: Comment on above: Patient Position: Sitting; Cuff Location : Left Arm; Cuff Size: Standard 08-11-2015 11:02-0400 BSA (Body Surface Area) 1.71 m2 [facility] Internal Medicine Work Phone: 08-11-2015 11:02-0400 Height 166.37 cm [facility] Internal Medicine Work Phone: 08-11-2015 11:02-0400 Pulse (Heart Rate) 75 /min [facility] Internal Medicine Work Phone: Comment on above: Pattern: Regular 08-11-2015 11:02-0400 Pulse Oximetry 98 % R[facility] Internal Medicine Work Phone: Comment on above: Room air 08-11-2015 11:02-0400 Respiratory Rate 18 /min [facility] Internal Medicine Work Phone: Comment on above: Pattern: Unlabored 08-11-2015 11:02-0400 Weight 63.96 kg Rox [facility] Internal Medicine Work Phone: 02-17-2015 14:05-0500 BMI (Body Mass Index) 25.79 kg/m2 Rox [facility] Internal Medicine Work Phone: 02-17-2015 14:05-0500 Body Temperature 97.6 [degF] [facility] Internal Medicine Work Phone: Comment on above: Method: Tympanic 02-17-2015 14:05-0500 Body weight 71.39 kg Rox [facility] Internal Medicine Work Phone: 02-17-2015 14:05-0500 BP Diastolic 62 mm[Hg] Rox [facility] Internal Medicine Work Phone: Comment on above: Patient Position: Sitting; Cuff Location : Left Arm; Cuff Size: Standard 02-17-2015 14:05-0500 BP Systolic 122 mm[Hg] Rox [facility] Internal Medicine Work Phone: Comment on above: Patient Position: Sitting; Cuff Location : Left Arm; Cuff Size: Standard 02-17-2015 14:05-0500 BSA (Body Surface Area) 1.8 m2 [facility] Internal Medicine Work Phone: 02-17-2015 14:05-0500 Height 166.37 cm [facility] Work Phone: 02-17-2015 14:05-0500 Pulse (Heart Rate) 82 /min [facility] Medicine Work Phone: Comment on above: Pattern: Regular 02-17-2015 14:05-0500 Pulse Oximetry 93 % [facility] Internal Medicine Work Phone: Comment on above: Room air 02-17-2015 14:05-0500 Respiratory Rate 18 /min [facility] Internal Medicine Work Phone: Comment on above: Pattern: Unlabored 02-17-2015 14:05-0500 Weight 71.39 kg R[facility] Internal Medicine Work Phone: 01-07-2015 09:19-0400 BMI (Body Mass Index) 26.28 kg/m2 Rox [facility] Internal Medicine Work Phone: 01-07-2015 09:19-0400 Body weight 72.75 kg [facility] Internal Medicine Work Phone: 01-07-2015 09:19-0400 BP Diastolic 70 mm[Hg] R[facility] Internal Medicine Work Phone: Comment on above: Patient Position: Sitting; Cuff Location : Left Arm; Cuff Size: Standard 01-07-2015 09:19-0400 BP Systolic 120 mm[Hg] [facility] Medicine Work Phone: Comment on above: Patient Position: Sitting; Cuff Location : Left Arm; Cuff Size: Standard 01-07-2015 09:19-0400 BSA (Body Surface Area) 1.81 m2 [facility] Internal Medicine Work Phone: 01-07-2015 09:190400 Height 166.37 cm [facility] Medicine Work Phone: 01-07-2015 09:19-0400 Pulse (Heart Rate) 71 /min [facility] Medicine Work Phone: Comment on above: Pattern: Regular 01-07-2015 09:19-0400 Pulse Oximetry 97 % [facility] Medicine Work Phone: Comment on above: Room air 01-07-2015 09:19-0400 Respiratory Rate 18 /min [facility] Internal Medicine Work Phone: Comment on above: Pattern: Unlabored 01-07-2015 09:19-0400 Weight 72.75 kg [facility] Internal Medicine Work Phone: 12-10-2014 08:55-0400 BMI (Body Mass Index) 26.38 kg/m2 Rox [facility] Internal Medicine Work Phone: 12-10-2014 08:55-0400 Body Temperature 97.6 [degF] [facility] Internal Medicine Work Phone: Comment on above: Method: Temporal 12-10-2014 08:55-0400 Body weight 73.03 kg Rox [facility] Internal Medicine Work Phone: 12-10-2014 08:55-0400 BP Diastolic 68 mm[Hg] R[facility] Medicine Work Phone: Comment on above: Patient Position: Sitting; Cuff Location : Left Arm; Cuff Size: Standard 12-10-2014 08:55-0400 BP Systolic 108 mm[Hg] [facility] Internal Medicine Work Phone: Comment on above: Patient Position: Sitting; Cuff Location : Left Arm; Cuff Size: Standard 12-10-2014 08:55-0400 BSA (Body Surface Area) 1.81 m2 [facility] Internal Medicine Work Phone: 12-10-2014 08:55-0400 Height 166.37 cm [facility] Work Phone: 12-10-2014 08:55-0400 Pulse (Heart Rate) 72 /min [facility] Medicine Work Phone: Comment on above: Pattern: Regular 12-10-2014 08:55-0400 Respiratory Rate 17 /min [facility] Internal Medicine Work Phone: Comment on above: Pattern: Unlabored 12-10-2014 08:55-0400 Weight 73.03 kg R[facility] Internal Medicine Work Phone: 12-02-2014 07:57-0400 BMI (Body Mass Index) 25.56 kg/m2 Rox [facility] Internal Medicine Work Phone: 12-02-2014 07:57-0400 Body Temperature 97.2 [degF] R[facility] Internal Medicine Work Phone: Comment on above: Method: Temporal 12-02-2014 07:57-0400 Body weight 70.76 kg R[facility] Internal Medicine Work Phone: 12-02-2014 07:57-0400 BP Diastolic 68 mm[Hg] [facility] Medicine Work Phone: Comment on above: Patient Position: Sitting; Cuff Location : Left Arm; Cuff Size: Standard 12-02-2014 07:57-0400 BP Systolic 126 mm[Hg] [facility] Work Phone: Comment on above: Patient Position: Sitting; Cuff Location : Left Arm; Cuff Size: Standard 12-02-2014 07:57-0400 BSA (Body Surface Area) 1.79 m2 [facility] Work Phone: 12-02-2014 07:57-0400 Height 166.37 cm [facility] Work Phone: 12-02-2014 07:57-0400 Pulse (Heart Rate) 91 /min [facility] Medicine Work Phone: Comment on above: Pattern: Regular 12-02-2014 07:57-0400 Pulse Oximetry 98 % [facility] Work Phone: Comment on above: Room air 12-02-2014 07:57-0400 Respiratory Rate 16 /min [facility] Medicine Work Phone: Comment on above: Pattern: Unlabored 12-02-2014 07:57-0400 Weight 70.76 kg [facility] Medicine Work Phone: 11-26-2014 11:43-0400 BMI (Body Mass Index) 25.56 kg/m2 Rox [facility] Internal Medicine Work Phone: Comment on above: had eye exam with Dr Moore in [place] 6mos ago with glaucoma test 11-26-2014 11:43-0400 Body weight 70.76 kg [facility] Work Phone: Comment on above: had eye exam with Dr Moore in [place] 6mos ago with glaucoma test 11-26-2014 11:43-0400 BP Diastolic 74 mm[Hg] Rox [facility] Internal Medicine Work Phone: Comment on above: Patient Position: Sitting; Cuff Location : Left Arm; Cuff Size: Standard had eye exam with Dr Moore in [place] 6mos ago with glaucoma test 11-26-2014 11:43-0400 BP Systolic 124 mm[Hg] [facility] Work Phone: Comment on above: Patient Position: Sitting; Cuff Location : Left Arm; Cuff Size: Standard had eye exam with Dr Moore in [place] 6mos ago with glaucoma test 11-26-2014 11:43-0400 BSA (Body Surface Area) 1.79 m2 [facility] Work Phone: Comment on above: had eye exam with Dr Moore in [place] 6mos ago with glaucoma test 11-26-2014 11:43-0400 Height 166.37 cm [facility] Medicine Work Phone: Comment on above: had eye exam with Dr Moore in [place] 6mos ago with glaucoma test 11-26-2014 11:43-0400 Pulse (Heart Rate) 74 /min [facility] Medicine Work Phone: Comment on above: Pattern: Regular had eye exam with Dr Moore in [place] 6mos ago with glaucoma test 11-26-2014 11:43-0400 Respiratory Rate 17 /min [facility] Work Phone: Comment on above: Pattern: Unlabored had eye exam with Dr Moore in [place] 6mos ago with glaucoma test 11-26-2014 11:43-0400 Weight 70.76 kg R[facility] Work Phone: Comment on above: had eye exam with Dr Moore in [place] 6mos ago with glaucoma test 11-12-2014 12:30-0400 BMI (Body Mass Index) 27.09 kg/m2 Roxalyson [facility] Internal Medicine Work Phone: 11-12-2014 12:30-0400 Body Temperature 98.2 [degF] [facility] Work Phone: Comment on above: Method: Temporal 11-12-2014 12:30-0400 Body weight 74.99 kg Rox [facility] Work Phone: 11-12-2014 12:30-0400 BP Diastolic 74 mm[Hg] [facility] Work Phone: Comment on above: Patient Position: Sitting; Cuff Location : Left Arm; Cuff Size: Standard 11-12-2014 12:30-0400 BP Systolic 122 mm[Hg] [facility] Work Phone: Comment on above: Patient Position: Sitting; Cuff Location : Left Arm; Cuff Size: Standard 11-12-2014 12:30-0400 BSA (Body Surface Area) 1.83 m2 Rox [facility] Work Phone: 11-12-2014 12:30-0400 Height 166.37 cm Rox [facility] Work Phone: 11-12-2014 12:30-0400 Pulse (Heart Rate) 72 /min Roxtherese [facility] Work Phone: Comment on above: Pattern: Regular 11-12-2014 12:30-0400 Respiratory Rate 16 /min [facility] Work Phone: Comment on above: Pattern: Unlabored 11-12-2014 12:30-0400 Weight 74.99 kg [facility] Work Phone: 03-18-2014 13:24-0500 BMI (Body Mass Index) 27.09 kg/m2 Rox [facility] Internal Medicine Work Phone: 03-18-2014 13:24-0500 Body Temperature 97.9 [degF] [facility] Medicine Work Phone: Comment on above: Method: Oral 03-18-2014 13:24-0500 Body weight 74.99 kg [facility] Internal Medicine Work Phone: 03-18-2014 13:24-0500 BP Diastolic 72 mm[Hg] [facility] Work Phone: Comment on above: Patient Position: Sitting; Cuff Location : Left Arm; Cuff Size: Standard 03-18-2014 13:24-0500 BP Systolic 116 mm[Hg] [facility] Work Phone: Comment on above: Patient Position: Sitting; Cuff Location : Left Arm; Cuff Size: Standard 03-18-2014 13:24-0500 BSA (Body Surface Area) 1.83 m2 [facility] Work Phone: 03-18-2014 13:24-0500 Height 166.37 cm [facility] Medicine Work Phone: 03-18-2014 13:24-0500 Pulse (Heart Rate) 60 /min [facility] Work Phone: Comment on above: Pattern: Regular 03-18-2014 13:24-0500 Pulse Oximetry 96 % [facility] Work Phone: Comment on above: Room air 03-18-2014 13:24-0500 Respiratory Rate 18 /min [facility] Internal Medicine Work Phone: 03-18-2014 13:24-0500 Weight 74.99 kg Rox [facility] Internal Medicine Work Phone: 03-16-2014 15:49-0500 BMI (Body Mass Index) 27.09 kg/m2 [facility] Work Phone: 03-16-2014 15:49-0500 Body Temperature 97.7 [degF] [facility] Work Phone: Comment on above: Method: Oral 03-16-2014 15:49-0500 Body weight 74.99 kg Rox [facility] Medicine Work Phone: 03-16-2014 15:49-0500 BP Diastolic 60 mm[Hg] Rox [facility] Work Phone: Comment on above: Patient Position: Sitting; Cuff Location : Left Arm; Cuff Size: Standard 03-16-2014 15:49-0500 BP Systolic 110 mm[Hg] Rox [facility] Work Phone: Comment on above: Patient Position: Sitting; Cuff Location : Left Arm; Cuff Size: Standard 03-16-2014 15:49-0500 BSA (Body Surface Area) 1.83 m2 R[facility] Work Phone: 03-16-2014 15:49-0500 Height 166.37 cm R[facility] Work Phone: 03-16-2014 15:49-0500 Pulse (Heart Rate) 70 /min [facility] Work Phone: Comment on above: Pattern: Regular 03-16-2014 15:49-0500 Respiratory Rate 18 /min [facility] Work Phone: 03-16-2014 15:49-0500 Weight 74.99 kg R[facility] Work Phone: 07-29-2013 14:15-0400 BMI (Body Mass Index) 27.09 kg/m2 [facility] Work Phone: 07-29-2013 14:15-0400 Body Temperature 98.6 [degF] [facility] Work Phone: Comment on above: Method: Oral 07-29-2013 14:15-0400 Body weight 74.99 kg R[facility] Work Phone: 07-29-2013 14:15-0400 BP Diastolic 74 mm[Hg] R[facility] Work Phone: Comment on above: Patient Position: Sitting; Cuff Location : Left Arm; Cuff Size: Standard 07-29-2013 14:15-0400 BP Systolic 126 mm[Hg] [facility] Work Phone: Comment on above: Patient Position: Sitting; Cuff Location : Left Arm; Cuff Size: Standard 07-29-2013 14:15-0400 BSA (Body Surface Area) 1.83 m2 [facility] Work Phone: 07-29-2013 14:15-0400 Height 166.37 cm R[facility] Work Phone: 07-29-2013 14:15-0400 Pulse (Heart Rate) 86 /min R[facility] Work Phone: Comment on above: Pattern: Regular 07-29-2013 14:15-0400 Pulse Oximetry 98 % [facility] Work Phone: Comment on above: Room air 07-29-2013 14:15-0400 Respiratory Rate 18 /min [facility] Work Phone: 07-29-2013 14:15-0400 Weight 74.99 kg Rox [facility] Work Phone: 06-11-2013 14:07-0400 BMI (Body Mass Index) 27.09 kg/m2 [facility]ox [facility] Work Phone: Comment on above: vision DrGuptahearinf [facility] 06-11-2013 14:07-0400 Body Temperature 96.1 [degF] [facility]: Comment on above: Method: Oral vision Raymond mooney [facility] 06-11-2013 14:07-0400 Body weight 74.99 [facility] Work [facility]: Comment on above: vision Fletcher [facility] 06-11-2013 14:07-0400 BP Diastolic 70 mm[Hg] Rox [facility] Internal Medicine Work Phone: Comment on above: Patient Position: Sitting; Cuff Location : Left Arm; Cuff Size: Large vision Raymond mooney [facility] 06-11-2013 14:07-0400 BP Systolic 120 mm[Hg] [facility] Work [facility]: Comment on above: Patient Position: Sitting; Cuff Location : Left Arm; Cuff Size: Large vision Raymond mooney [facility] 06-11-2013 14:07-0400 BSA (Body Surface Area) 1.83 m2 Rox [facility] Internal Medicine Work Phone: Comment on above: vision Fletcher [facility] 06-11-2013 14:07-0400 Height 166.37 cm Rox [facility] Internal Medicine Work Phone: Comment on above: vision Fletcher [facility] 06-11-2013 14:07-0400 Pulse (Heart Rate) 77 /min Rox [facility] Internal Medicine Work Phone: Comment on above: Pattern: Regular vision Raymond mooney [facility] 06-11-2013 14:07-0400 Pulse Oximetry 97 % Rox [facility] Internal Medicine Work Phone: Comment on above: Room air vision Raymond mooney [facility] 06-11-2013 14:07-0400 Respiratory Rate 20 /min Rox [facility] Internal Medicine Work Phone: Comment on above: Pattern: Unlabored vision Raymond mooney [facility] 06-11-2013 14:07-0400 Weight 74.99 kg Rox [facility] Internal Medicine Work Phone: Comment on above: vision DrGuptahearinf [facility] 05-21-2013 13:06-0500 BMI (Body Mass Index) 26.93 kg/m2 [facility] Work Phone: 05-21-2013 13:06-0500 Body Temperature 97.6 [degF] Rox [facility] Internal Medicine Work Phone: Comment on above: Method: Oral 05-21-2013 13:06-0500 Body weight 74.53 kg Rox [facility] Internal Medicine Work Phone: 05-21-2013 13:06-0500 BP Diastolic 80 mm[Hg] Rox [facility] Medicine Work Phone: Comment on above: Patient Position: Sitting; Cuff Location : Left Arm; Cuff Size: Large 05-21-2013 13:06-0500 BP Systolic 120 mm[Hg] Rox [facility] Internal Medicine Work Phone: Comment on above: Patient Position: Sitting; Cuff Location : Left Arm; Cuff Size: Large 05-21-2013 13:06-0500 BSA (Body Surface Area) 1.83 m2 Rox [facility] Internal Medicine Work Phone: 05-21-2013 13:06-0500 Height 166.37 cm R[facility] Medicine Work Phone: 05-21-2013 13:06-0500 Pulse (Heart Rate) 77 /min R[facility] Work Phone: Comment on above: Pattern: Regular 05-21-2013 13:06-0500 Pulse Oximetry 97 % Rox [facility] Work Phone: Comment on above: Room air 05-21-2013 13:06-0500 Respiratory Rate 20 /min Rox [facility] Work Phone: Comment on above: Pattern: Unlabored 05-21-2013 13:06-0500 Weight 74.53 kg Rox [facility] Internal Medicine Work Phone: 04-30-2013 09:58-0500 BMI (Body Mass Index) 26.6 kg/m2 [facility]ox [facility] Work Phone: 04-30-2013 09:58-0500 Body weight 73.62 kg Rox [facility] Internal Medicine Work Phone: 04-30-2013 09:58-0500 BP Diastolic 80 mm[Hg] Rox [facility] Medicine Work Phone: Comment on above: Patient Position: Sitting; Cuff Location : Left Arm; Cuff Size: Large 04-30-2013 09:58-0500 BP Systolic 120 mm[Hg] Rox [facility] Work Phone: Comment on above: Patient Position: Sitting; Cuff Location : Left Arm; Cuff Size: Large 04-30-2013 09:58-0500 BSA (Body Surface Area) 1.82 m2 Rox [facility] Internal Medicine Work Phone: 04-30-2013 09:58-0500 Height 166.37 cm R[facility] Medicine Work Phone: 04-30-2013 09:58-0500 Pulse (Heart Rate) 59 /min Rox [facility] Work Phone: Comment on above: Pattern: Regular 04-30-2013 09:58-0500 Pulse Oximetry 98 % R[facility] Medicine Work Phone: Comment on above: Room air 04-30-2013 09:58-0500 Respiratory Rate 20 /min R[facility] Medicine Work Phone: Comment on above: Pattern: Unlabored 04-30-2013 09:58-0500 Weight 73.62 kg Rox [facility] Internal Medicine Work Phone: 12-27-2012 11:15-0400 BMI (Body Mass Index) 26.58 kg/m2 [facility]ox [facility] Work Phone: 12-27-2012 11:15-0400 Body weight 73.57 kg Rox [facility] Internal Medicine Work Phone: 12-27-2012 11:15-0400 BP Diastolic 76 mm[Hg] Rox [facility] Medicine Work Phone: Comment on above: Patient Position: Sitting; Cuff Location : Left Arm; Cuff Size: Standard 12-27-2012 11:15-0400 BP Systolic 148 mm[Hg] Rox [facility] Work Phone: Comment on above: Patient Position: Sitting; Cuff Location : Left Arm; Cuff Size: Standard 12-27-2012 11:15-0400 BSA (Body Surface Area) 1.82 m2 Rox [facility] Work Phone: 12-27-2012 11:15-0400 Height 166.37 cm Rox [facility] Work Phone: 12-27-2012 11:15-0400 Pulse (Heart Rate) 70 /min Rox [facility] Work Phone: Comment on above: Pattern: Regular 12-27-2012 11:15-0400 Pulse Oximetry 98 % Rox [facility] Work Phone: Comment on above: Room air 12-27-2012 11:15-0400 Respiratory Rate 20 /min R[facility] Medicine Work Phone: Comment on above: Pattern: Unlabored 12-27-2012 11:15-0400 Weight 73.57 kg Rox [facility] Internal Medicine Work Phone: 12-11-2012 15:13-0400 BMI (Body Mass Index) 26.61 kg/m2 Rox Huerta [facility] Internal Medicine Work Phone: 12-11-2012 15:13-0400 Body Temperature 98.1 [degF] Rox [facility] Internal Medicine Work Phone: Comment on above: Method: Oral 12-11-2012 15:13-0400 Body weight 73.65 kg Rox [facility] Medicine Work Phone: 12-11-2012 15:13-0400 BP Diastolic 62 mm[Hg] Rox [facility] Work Phone: Comment on above: Patient Position: Sitting; Cuff Location : Left Arm; Cuff Size: Large 12-11-2012 15:13-0400 BP Systolic 122 mm[Hg] [facility] Work Phone: Comment on above: Patient Position: Sitting; Cuff Location : Left Arm; Cuff Size: Large 12-11-2012 15:13-0400 BSA (Body Surface Area) 1.82 m2 Rox [facility] Internal Medicine Work Phone: 12-11-2012 15:130400 Height 166.37 cm R[facility] Work Phone: 12-11-2012 15:13-0400 Pulse (Heart Rate) 60 /min [facility] Work Phone: Comment on above: Pattern: Regular 12-11-2012 15:13-0400 Pulse Oximetry 98 % Rox [facility] Work Phone: Comment on above: Room air 12-11-2012 15:13-0400 Respiratory Rate 18 /min R[facility] Work Phone: Comment on above: Pattern: Unlabored 12-11-2012 15:13-0400 Weight 73.65 kg Rox [facility] Internal Medicine Work Phone: 10-07-2012 10:10-0400 BMI (Body Mass Index) 26.61 kg/m2 Rox Huerta [facility] Internal Medicine Work Phone: 10-07-2012 10:10-0400 Body Temperature 97.8 [degF] Rox [facility] Internal Medicine Work Phone: Comment on above: Method: Oral 10-07-2012 10:10-0400 Body weight 73.65 kg Rox [facility] Medicine Work Phone: 10-07-2012 10:10-0400 BP Diastolic 62 mm[Hg] Rox [facility] Work Phone: Comment on above: Patient Position: Sitting; Cuff Location : Left Arm; Cuff Size: Large 10-07-2012 10:10-0400 BP Systolic 118 mm[Hg] Rox [facility] Internal Medicine Work Phone: Comment on above: Patient Position: Sitting; Cuff Location : Left Arm; Cuff Size: Large 10-07-2012 10:10-0400 BSA (Body Surface Area) 1.82 m2 Rox u[facility] Internal Medicine Work Phone: 10-07-2012 [id number] Height 166.37 cm Rox [facility] Internal Medicine Work Phone: 10-07-2012 10:10-0400 Pulse (Heart Rate) 62 /min Rox [facility] Work Phone: Comment on above: Pattern: Regular 10-07-2012 [id number] Pulse Oximetry 96 % Rox [facility] Work Phone: Comment on above: Room air 10-07-2012 [id number]:[id number] Respiratory Rate 20 /min Rox [facility] Medicine Work Phone: Comment on above: Pattern: Unlabored 10-07-2012 10:10-0400 Weight 73.65 kg Rox Hu[facility] Internal Medicine Work Phone: 07-05-2012 08:26-0400 BMI (Body Mass Index) 26.57 kg/m2 Rox Huerta [facility] Internal Medicine Work Phone: 07-05-2012 08:26-0400 Body Temperature 97.5 [degF] [facility] Internal Medicine Work Phone: 07-05-2012 08:26-0400 Body weight 73.54 kg [facility] Internal Medicine Work Phone: 07-05-2012 08:26-0400 BP Diastolic 78 mm[Hg] [facility] Internal Medicine Work Phone: Comment on above: Patient Position: Sitting; Cuff Location : Left Arm; Cuff Size: Standard 07-05-2012 08:26-0400 BP Systolic 115 mm[Hg] [facility] Internal Medicine Work Phone: Comment on above: Patient Position: Sitting; Cuff Location : Left Arm; Cuff Size: Standard 07-05-2012 08:26-0400 BSA (Body Surface Area) 1.82 m2 [facility] Internal Medicine Work Phone: 07-05-2012 08:26-0400 Height 166.37 cm [facility] Internal Medicine Work Phone: 07-05-2012 08:26-0400 Pulse (Heart Rate) 68 /min [facility] Internal Medicine Work Phone: Comment on above: Pattern: Regular 07-05-2012 08:26-0400 Respiratory Rate 16 /min [facility] Internal Medicine Work Phone: Comment on above: Pattern: Unlabored 07-05-2012 08:26-0400 Weight 73.54 kg Rox [facility] Internal Medicine Work Phone: 06-11-2012 11:46-0400 BMI (Body Mass Index) 26.73 kg/m2 Rox Huerta [facility] Internal Medicine Work Phone: 06-11-2012 11:46-0400 Body Temperature 97.7 [degF] [facility]ox [facility] Internal Medicine Work Phone: Comment on above: Method: Oral 06-11-2012 11:46-0400 Body weight 73.99 kg Rox [facility] Internal Medicine Work Phone: 06-11-2012 11:46-0400 BP Diastolic 62 mm[Hg] [facility]ox [facility] Internal Medicine Work Phone: Comment on above: Patient Position: Sitting; Cuff Location : Left Arm; Cuff Size: Large 06-11-2012 11:46-0400 BP Systolic 120 mm[Hg] [facility]ox [facility] Internal Medicine Work Phone: Comment on above: Patient Position: Sitting; Cuff Location : Left Arm; Cuff Size: Large 06-11-2012 11:46-0400 BSA (Body Surface Area) 1.82 m2 Rox [facility] Internal Medicine Work Phone: 06-11-2012 11:46-0400 Height 166.37 cm Rox [facility] Internal Medicine Work Phone: 06-11-2012 11:46-0400 Pulse (Heart Rate) 80 /min [facility] Internal Medicine Work Phone: Comment on above: Pattern: Regular 06-11-2012 11:46-0400 Respiratory Rate 18 /min [facility]ox [facility] Internal Medicine Work Phone: Comment on above: Pattern: Unlabored 06-11-2012 11:46-0400 Weight 73.99 kg Rox [facility] Internal Medicine Work Phone: 06-07-2012 09:31-0400 BMI (Body Mass Index) 26.73 kg/m2 Rox Huerta [facility] Internal Medicine Work Phone: 06-07-2012 09:31-0400 Body weight 73.99 kg Rox [facility] Internal Medicine Work Phone: 06-07-2012 09:31-0400 BP Diastolic 78 mm[Hg] [facility]ox [facility] Internal Medicine Work Phone: Comment on above: Patient Position: Sitting; Cuff Location : Left Arm; Cuff Size: Large 06-07-2012 09:31-0400 BP Systolic 122 mm[Hg] [facility]ox [facility] Internal Medicine Work Phone: Comment on above: Patient Position: Sitting; Cuff Location : Left Arm; Cuff Size: Large 06-07-2012 09:31-0400 BSA (Body Surface Area) 1.82 m2 [facility]ox [facility] Internal Medicine Work Phone: 06-07-2012 09:31-0400 Height 166.37 cm Rox [facility] Internal Medicine Work Phone: 06-07-2012 09:31-0400 Pulse (Heart Rate) 72 /min Rox [facility] Internal Medicine Work Phone: Comment on above: Pattern: Regular 06-07-2012 09:31-0400 Respiratory Rate 20 /min Rox [facility] Internal Medicine Work Phone: Comment on above: Pattern: Unlabored 06-07-2012 09:31-0400 Weight 73.99 kg Rox Huerta [facility] Medicine Work Phone: 06-03-2012 09:290400 BMI (Body Mass Index) 26.73 kg/m2 Rox Huerta [facility] Internal Medicine Work Phone: Comment on above: hearing wnlvision with correction ou=20/ 30 od=20/30 os=20/40 06-03-2012 09:29-0400 Body Temperature 97 [degF] [facility] Work Phone: Comment on above: Method: Oral hearing wnlvision wi th correction ou=20/30 od=20/30 os=20/40 06-03-2012 09:290400 Body weight 73.99 [facility] Work Phone: Comment on above: hearing wnlvision with correction ou=20/ 30 od=20/30 os=20/40 06-03-2012 09:29-0400 BP Diastolic 80 mm[Hg] [facility] Internal Medicine Work Phone: Comment on above: Patient Position: Sitting; Cuff Location : Left Arm; Cuff Size: Large hearing wnlvision wi th correction ou=20/30 od=20/30 os=20/40 06-03-2012 09:29-0400 BP Systolic 138 mm[Hg] [facility] Internal Medicine Work Phone: Comment on above: Patient Position: Sitting; Cuff Location : Left Arm; Cuff Size: Large hearing wnlvision wi th correction ou=20/30 od=20/30 os=20/40 06-03-2012 09:29-0400 BSA (Body Surface Area) 1.82 m2 [facility] Internal Medicine Work Phone: Comment on above: hearing wnlvision with correction ou=20/ 30 od=20/30 os=20/40 06-03-2012 09:290400 Height 166.37 cm [facility] Work Phone: Comment on above: hearing wnlvision with correction ou=20/ 30 od=20/30 os=20/40 06-03-2012 09:29-0400 Pulse (Heart Rate) 80 /min [facility] Work Phone: Comment on above: Pattern: Regular hearing wnlvision wi th correction ou=20/30 od=20/30 os=20/40 06-03-2012 09:29-0400 Respiratory Rate 20 /min [facility] Work Phone: Comment on above: Pattern: Unlabored hearing wnlvision wi th correction ou=20/30 od=20/30 os=20/40 06-03-2012 09:290400 Weight 73.99 kg [facility] Work Phone: Comment on above: hearing wnlvision with correction ou=20/ 30 od=20/30 os=20/40 03-27-2012 13:51-0500 BMI (Body Mass Index) 26.12 kg/m2 Rox Huerta [facility] Internal Medicine Work Phone: 03-27-2012 13:51-0500 Body Temperature 97.8 [degF] [facility] Internal Medicine Work Phone: Comment on above: Method: Oral 03-27-2012 13:51-0500 Body weight 72.29 kg Rox [facility] Internal Medicine Work Phone: 03-27-2012 13:51-0500 BP Diastolic 68 mm[Hg] [facility] Internal Medicine Work Phone: Comment on above: Patient Position: Sitting; Cuff Location : Left Arm; Cuff Size: Large 03-27-2012 13:51-0500 BP Systolic 118 mm[Hg] [facility] Internal Medicine Work Phone: Comment on above: Patient Position: Sitting; Cuff Location : Left Arm; Cuff Size: Large 03-27-2012 13:51-0500 BSA (Body Surface Area) 1.81 m2 [facility] Internal Medicine Work Phone: 03-27-2012 13:51-0500 Height 166.37 cm Rox [facility] Internal Medicine Work Phone: 03-27-2012 13:51-0500 Pulse (Heart Rate) 64 /min [facility]ox [facility] Internal Medicine Work Phone: Comment on above: Pattern: Regular 03-27-2012 13:51-0500 Respiratory Rate 18 /min [facility]ox [facility] Internal Medicine Work Phone: Comment on above: Pattern: Unlabored 03-27-2012 13:51-0500 Weight 72.29 kg Rox [facility] Internal Medicine Work Phone: Encounters Encounter Date Encounter Type Care Provider Facility Start: 11-14-2024 ambulatory Jian Viveros [facility] Start: 11-07-2024 End: 11-07-[address] Jian Viveros MD Work Phone: -[facility] Start: 11-07-2024 End: 11-07-[address] Pako Morocho MD -[facility] Work Phone: Start: 11-06-2024 End: 11-06-[address] Jian Viveros MD Work Phone: -[facility] Start: 11-06-2024 End: 11-06-[address] [facility] Work Phone: Start: 11-06-2024 End: 11-06-2024 ambulatory Jian Viveros Facility:[facility] Start: 10-13-2024 End: 10-13-[address] Jian Viveros MD Work Phone: -Ultrasound [facility] Start: 10-13-2024 End: 10-13-[address] Jian Viveros MD -Ultrasound [facility] Work Phone: Start: 10-13-2024 End: 10-13-2024 ambulatory Jian Viveros Facility:[facility] Start: 09-23-2024 End: 09-23-[address] Jian Viveros MD Work Phone: -Laboratory [facility] Start: 09-23-2024 End: 09-23-[address] Jian Viveros MD -Laboratory [facility] Start: 09-23-2024 End: 09-23-2024 ambulatory Jian Viveros Facility:[facility] Start: 08-14-2024 End: 08-14-[address] Jian Viveros MD Work Phone: [facility] Work Phone: Start: 08-14-2024 End: 08-14-2024 Patient encounter procedure Nikki Roni -[facility] Work Phone: Start: 08-08-2024 End: 08-08-2024 Admission to same day surgery center Dr. Pako Morocho MD -[employer] Engineer/Special Procedures Work Phone: Start: 08-08-2024 End: 08-08-2024 ambulatory Jian Viveros [facility] Start: 07-29-2024 End: 07-29-[address] Jian Viveros MD Work Phone: [facility] Work Phone: Start: 07-29-2024 End: 07-29-[address] Jin Barnes MD -[facility] Work Phone: Start: 05-29-2024 End: 05-29-[address] Jian Viveros MD Work Phone: [facility] Work Phone: Start: 05-29-2024 End: 05-29-[address] [facility] Start: 05-29-2024 End: 05-29-2024 ambulatory Jian Viveros Facility:[facility] Start: 05-19-2024 End: 05-19-2024 ambulatory Pako Morocho Facility:[facility] Start: 05-19-2024 End: 05-19-[address] Pako Morocho MD -[facility] Work Phone: Start: 04-17-2024 ambulatory Jian Viveros Facilit y:[facility] Start: 03-04-2024 End: 03-04-[address] [facility] Start: 03-04-2024 End: 03-04-2024 ambulatory Jian Viveros Facility:[facility] Start: 02-11-2024 End: 02-11-2024 Patient encounter procedure Dori Wong PA -[facility] Work Phone: Start: 02-11-2024 End: 02-11-2024 ambulatory Jian Viveros Facility:[facility] Start: 01-31-2024 End: 01-31-2024 ambulatory Jian Viveros Facility:[facility] Start: 07-13-2023 End: 07-13-[address] Jian Viveros Work Phone: [facility] Work Phone: Start: 07-13-2023 End: 07-13-[address] Jian Viveros Work Phone: [facility]-Cardiovascular Services Work Phone: Start: 07-05-2023 End: 07-05-[address] Jian Viveros Work Phone: [facility] Work Phone: Start: 07-05-2023 End: 07-05-[address] Jian Viveros Work Phone: [facility] Start: 06-19-2023 End: 06-19-[address] Jian Viveros Work Phone: [facility] Heart [facility] Work Phone: Start: 06-01-2023 End: 06-01-[address] Jian Viveros Work Phone: [facility] Work Phone: Start: 06-01-2023 End: 06-01-[address] Jian Viveros Work Phone: [facility] Work Phone: Start: 05-31-2023 End: 05-31-[address] Jian Viveros Work Phone: [facility] Work Phone: Start: 04-24-2023 End: 04-24-2023 ambulatory [facility] Work Phone: Start: 04-24-2023 End: 04-24-2023 Patient encounter procedure [facility] Start: 01-12-2023 End: 01-12-2023 Patient encounter procedure [facility] Start: 12-22-2022 Non-patient / Non-visit [facility] Start: 12-22-2022 End: 12-22-[address] Jian Viveros Work Phone: [facility] Work Phone: Start: 12-22-2022 End: 12-22-[address] [facility] Work [facility]: Start: 11-23-2022 End: 11-23-[address] Jian Viveros Work Phone: [facility] Heart [facility] Work Phone: Start: 09-28-2022 End: 09-28-[address] Jian Viveros Work Phone: [facility] Work Phone: Start: 09-28-2022 End: 09-28-[address] Jian Viveros Work Phone: [facility] Start: 08-08-2022 End: 08-08-[address] Jian Viveros Work Phone: [facility] Vascular Surgery Work Phone: Start: 07-25-2022 Non-patient / Non-visit Dr. Jian Viveros Work Phone: [facility] Start: 07-24-2022 Non-patient / Non-visit Dr. Jian Viveros Work Phone: [facility] Start: 07-24-2022 End: 07-25-2022 Evaluation and management of inpatient Dr. Jian Viveros Work Phone: [facility]-Intensive Care Unit Work Phone: Start: 07-21-2022 Non-patient / Non-visit Dr. Jian Viveros Work Phone: [facility] Start: 07-21-2022 End: 07-21-[address] Jian [facility]iver[facility] Work [facility]: Start: 07-17-2022 End: 07-17-[address] Jian Viveros Work Phone: [facility] Vascular Surgery Work Phone: Start: 07-10-2022 End: 07-10-[address] Jian Viveros Work Phone: [facility] Work Phone: Start: 07-10-2022 End: 07-10-[address] Jian Viveros Work Phone: [facility] Start: 06-13-2022 End: 06-13-[address] Jian Viveros Work Phone: [facility] Work Phone: Start: 06-13-2022 End: 06-13-[address] Jian Viveros Work Phone: [facility] Start: 05-30-2022 End: 05-30-[address] Jian Viveros Work Phone: [facility] Work Phone: Start: 05-30-2022 End: 05-30-[address] Jian Viveros Work Phone: [facility] Vascular Surgery Start: 05-18-2022 End: 05-18-[address] Jian Viveros Work Phone: [facility] Start: 05-05-2022 End: 05-05-[address] Jian Viveros Work Phone: [facility] Start: 04-20-2022 Non-patient / Non-visit Dr. Jain Viveros Work Phone: [facility] Start: 04-20-2022 End: 04-20-[address] Jian Viveros Work Phone: [facility] Work Phone: Start: 04-20-2022 End: 04-20-[address] Jian Viveros Work Phone: [facility]-Cardiovascular Services Start: 01-05-2022 End: 01-05-[address] Jian Viveros Work Phone: [facility] Start: 12-06-2021 Non-patient / Non-visit Dr. Jian Viveros Work Phone: [facility] Start: 12-05-2021 Non-patient / Non-visit Dr. Jian Viveros Work Phone: [facility] Start: 12-04-2021 Non-patient / Non-visit Dr. Jian Viveros Work Phone: [facility] Start: 12-04-2021 End: 12-06-2021 Evaluation and management of inpatient Dr. Jian Viveros Work Phone: [facility]-Medical Surgical 3 Start: 11-27-2021 End: 11-27-2021 Emergency department patient visit Dr. Jian Viveros Work Phone: [facility]-Emergency Department Start: 11-15-2021 End: 11-15-[address] [facility] Start: 10-19-2021 Non-patient / Non-visit Dr. Jian Viveros Work Phone: [facility] Start: 10-19-2021 End: 10-19-[address] Jian Viveros Work Phone: [facility] Start: 10-06-2021 End: 10-06-2021 [facility] encounter [facility] Start: 09-02-2021 End: 09-02-[address] Jian Savage Work Phone: [facility] Start: 05-24-2021 End: 05-24-[address] Jian Savage [facility] Start: 11-08-2018 End: 11-08-2018 Office outpatient visit 15 minutes Rox [facility] Internal Medicine Start: 10-25-2018 End: 10-25-2018 [...] End: 03-01-2018 Office outpatient visit 15 minutes [facility]ox [facility] Start: 01-21-2018 End: 01-21-2018 Office outpatient visit 25 minutes [facility] Start: 12-31-2017 End: 12-31-2017 Office outpatient visit 40 minutes Rox [facility] Start: 10-08-2017 End: 10-08-2017 Phone Encounter [facility] Start: 09-27-2017 End: 09-28-2017 Office [...] Start: 05-22-2017 End: 05-22-2017 Annotation/Addendum Rox [facility] Start: 05-21-2017 End: 05-21-2017 Office [...] 10-16-2016 End: 10-16-2016 Phone Encounter Rox [facility] Start: 10-10-2016 End: 10-10-2016 Phone Encounter [facility]ox [facility] Start: 10-05-2016 End: 10-05-2016 Office [...] End: 12-02-2014 Office outpatient visit 10 minutes [facility] Start: 11-26-2014 End: 11-26-2014 Office outpatient visit 25 minutes Rox [facility] Start: 11-12-2014 End: 11-12-2014 Office outpatient visit 25 minutes [facility] Start: 03-18-2014 End: 03-18-2014 Office outpatient visit 25 minutes Roxalyson [facility] Medicine Start: 03-16-2014 End: 03-16-2014 Office outpatient visit 25 minutes Rox [facility] Medicine Start: 01-21-2014 End: 01-21-2014 Office outpatient visit 5 minutes Rox [facility] Medicine Start: 12-18-2013 End: 12-26-2013 Office outpatient visit 5 minutes Rox [facility] Start: 07-29-2013 End: 07-29-2013 Office outpatient visit 25 minutes Roxalyson Hu[facility] Medicine Start: 06-11-2013 End: 06-11-2013 Patient encounter [facility] Start: 05-21-2013 End: 05-21-2013 Patient encounter [facility] Start: 04-30-2013 End: 04-30-2013 Patient encounter [facility]ox [facility] Start: 12-27-2012 End: 12-27-2012 Patient encounter [facility]ox [facility] Start: 12-16-2012 End: 12-16-2012 Phone Encounter [facility] Start: 12-11-2012 End: 12-11-2012 Patient encounter [facility]ox [facility] Start: 10-07-2012 End: 10-07-2012 Patient encounter [facility] Start: 07-05-2012 End: 07-05-2012 Patient encounter [facility]ox[facility]yson [facility] Start: 06-11-2012 End: 06-11-2012 Patient encounter [facility]ox [facility] Start: 06-07-2012 End: 06-07-2012 Patient encounter [facility] Start: 06-03-2012 End: 06-03-2012 Patient encounter [facility] Start: 03-27-2012 End: 03-27-2012 Phone Encounter [facility] Start: 03-27-2012 End: 03-27-2012 Patient encounter [facility] Procedures Date Procedure Procedure Detail [...] Work Phone: Comment on above: Performed at: [place] [id number] Director: Irvin Goins PhD, Phone: [phone] Start: 09-23-2024 Total iron binding capacity measurement [...] examination of knee Start: 01-27-2019 End: 01-27-2019 [employer] Office Visit Report Comments: See Note; NOTES: [facility] [address] [place] [address] OFFICE VISIT Date of Service: 01/27/19 MR#: [id number] Acct: [id number] Name: TRINIDAD PARKER Rep #: [id number] : 1935 Provider: SCOTTIE Gabriel Age/Sex: 83/F [place] [facility] Status: Signed Intake Vital Signs01/27/19 Body Mass Index (BMI) 24.1 01/27/19 Height 5 ft 5 in 01/27/19 Weight: 141 lb 4 oz 01/27/19 Body Mass Index (BMI) 23.5 01/27/19 Blood Pressure 118/78 Intake Visit Reasons: Labial cyst, Dr. Savage ref, ok per EM Environment Coordinator Required: No Is patient in pain?: No Allergies metformin Allergy (Verified 01/27/19 13:41) Unknown Penicillins [PCN] Allergy (Verified 01/27/19 13:41) Unknown atorvastatin Adverse Reaction (Severe, Verified 01/27/19 13:41) elevated liver enzymes Medications Cholecalciferol (VIT D3) [Vitamin D3] 1,000 unit PO DAILY 04/16/15 [History Confirmed 01/27/19] Levothyroxine Sodium [Unithroid] 50 mcg PO DAILY 04/16/15 [History Confirmed 01/27/19] Ipratropium/Albuterol Respimat [Combivent Respimat Inhal [place]] 1 puff INHALATION BID 12/01/16 [History Confirmed [...] sinus syndrome (Chronic) Atherosclerotic heart disease of [place] coronary artery without angina pectoris (Chronic) Nonrheumatic [...] Cardiology Visit Report Comments: See Note; NOTES: [facility] [address] [place] [address] OFFICE VISIT Date of Service: 01/23/19 MR#: [id number] Acct: [id number] Name: TRINIDAD PARKER Rep #: [id number] : 1935 Provider: SHAHEED King Age/Sex: 83/F Location: [facility] Status: Signed HPI HPI History of [...] Visit Reasons: 6 M FU; Pacer 1pm Environment Coordinator Required: No Accompanied by: None Is patient [...] Confirmed 01/23/19] Ipratropium/Albuterol Respimat [Combivent Respimat Inhal [place]] 1 puff INHALATION BID 12/01/16 [History Confirmed [...] mg PO DAILY 01/23/19 [History Confirmed 01/23/19] [facility] Medical History (Updated 01/23/19 @ 15:32 by NADIA CordovaC) Essential (primary) hypertension (Chronic) Hyperlipidemia (Chronic) Complete heart block (Chronic) Sick sinus syndrome (Chronic) Atherosclerotic heart disease of [place] coronary artery without angina pectoris (Chronic) Nonrheumatic [...] (Updated 01/23/19 @ 15:33 by Jian King, MELTER CLERK-C) Smoking Status: Former smoker alcohol intake: never [...] affect Assessment AND Plan 1. Atherosclerosis of [place] coronary artery of [place] heart without angina pectoris I25.10 PCI-AFSHAN-LCx w/ [...] longevity 9.5-10.5 years AP percent at 61% LAB COORDINATOR percent less than 1% and 2V HR [...] prior to saving. 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 transplanted heart: [place] heart History of coronary artery stent placement Z95.5 Sick sinus syndrome I49.5 Presence of permanent cardiac pacemaker Z95.0 Essential (primary) hypertension I10 Hyperlipidemia, unspecified hyperlipidemia type E78.5 Hyperlipidemia type: unspecified Coding Level of Care Code Off vis,est,level 4 Diagnoses Atherosclerosis of [place] coronary artery of [place] heart without angina pectoris I25.10 [place] vs. transplanted heart: [place] heart History of coronary artery stent placement [...] 01-23-2019 Pacemaker Check Comments: See Note; NOTES: [place] [facility] [address] [place] [address] Pacemaker Check Date of Service: 01/23/19 1344 MR#: [id number] Acct: [id number] Name: TRINIDAD PARKER Karl Rep #: [id number] : 1935 From: Nikki Tamayo Age/Sex: 83/F [place] [facility] [place]: Signed Billing Codes PM Device Codes: PM Dev Prog Eval, Dual 01/23/19 1346 <Electronically signed by Nikki Tamayo > Date Nikki Romero Signature: Date (if applicable) CC: Rox Huerta Start: 11-05-2018 End: 11-05-2018 SCREEN MAMM (CAD) W/GENEVIEVE BILAT Comments: See Note; NOTES: [facility] Imaging Services [address] [place] [address] SCREEN MAMM (CAD) W/GENEVIEVE BILAT MR#: [id number] Acct: [id number] Name: TRINIDAD PARKER Rep #: [id number] : 1935 F 83 From: Darell Monte MD PCP: Rox Huerta DO Status: REG CLI Study: SCREEN MAMM (CAD) W/GENEVIEVE BILAT Date of Exam: 11/05/18 Exam# [id number] Ordering Dr: Rox Huerta DO MAMMOGRAPHY - [...] Darell Monte MD at 16:32 EDT Tel [phone], Service support , CC: Rox Huerta DO Qc Chemist: Signed Rox Huerta Work Phone: Start: 07-24-2018 End: 07-24-2018 Pacemaker Check Comments: See Note; NOTES: [facility] [address] [place] [address] Pacemaker Check Date of Service: 07/24/18718 MR#: [id number] Acct: [id number] Name: RENÉEPITATRINIDAD Karl Rep #: [id number] : 1935 From: Nikki Tamayo Age/Sex: 83/F [place] [facility] [place]: Signed Billing Codes PM Device Codes: PM Dev Prog Eval, Dual 07/24/18719 <Electronically signed by Nikki Tamayo > Date Nikki Tamayo Cosigner Signature: Date (if applicable) CC: Rox Huerta Start: 07-23-2018 End: 07-23-2018 Cardiology Visit Report Comments: See Note; NOTES: [facility] [address] [place], [place] [address] OFFICE VISIT Date of Service: 07/23/18 MR#: [id number] Acct: [id number] Name: TRINIDAD PARKER Rep #: [id number] : 1935 Provider: Pako Morocho MD Age/Sex: 83/F Location: [facility] Status: Signed HPI HPI Details: TRINIDAD [...] Confirmed 07/23/18] Ipratropium/Albuterol Respimat [Combivent Respimat Inhal [place]] 1 puff INHALATION BID 12/01/16 [History Confirmed [...] Days #90 cap 07/23/18 [History Confirmed 07/23/18] [facility] Medical History Essential (primary) hypertension (Chronic) Hyperlipidemia (Chronic) Complete heart block (Chronic) Sick sinus syndrome (Chronic) Atherosclerotic heart disease of [place] coronary artery without angina pectoris (Chronic) Nonrheumatic [...] to be functioning well. 3. Atherosclerosis of [place] coronary artery of [place] heart without angina pectoris I25.10 PCI-AFSHAN-LCx w/ [...] Discontinued: isosorbide mononitrate ER Discontinued Reason: Order Dwzmcj68 mg PO QAM 30 tabs 11RF d Follow Up 6 Months (r) Coding Level of Care Code Off vis,est,level 4 Diagnoses Essential (primary) hypertension I10 Presence of permanent cardiac pacemaker Z95.0 Atherosclerosis of [place] coronary artery of [place] heart without angina pectoris I25.10 [place] vs. transplanted heart: [place] heart Hyperlipidemia E78.5 Coding Level of Care Code Off vis,est,level 4 Diagnoses Essential (primary) hypertension I10 Presence of permanent cardiac pacemaker Z95.0 Atherosclerosis of [place] coronary artery of [place] heart without angina pectoris I25.10 [place] vs. transplanted heart: [place] heart Hyperlipidemia E78.5 Supplemental Info Supplemental Information [...] Cardiology Visit Report Comments: See Note; NOTES: [facility] [place] [address] OFFICE VISIT Date of Service: 01/18/18 MR#: [id number] Acct: [id number] Name: TRINIDAD PARKER Rep #: [id number] : 1935 Provider: SCOTTIE King Age/Sex: 82/F [place] [facility] Status: Signed HPI HPI Chief Complaint: [...] Reasons: 6 M FU; pacer @ 11am Environment Coordinator Required: No Accompanied by: None Is patient [...] Confirmed 01/18/18] Ipratropium/Albuterol Respimat [Combivent Respimat Inhal [place]] 1 puff INHALATION BID 12/01/16 [History Confirmed [...] by electrocardiogram (Chronic) Atherosclerotic heart disease of [place] coronary artery without angina pectoris (Chronic) Nonrheumatic mitral (valve) prolapse (Chronic) Atherosclerosis of coronary artery of [place] heart without angina pectoris (Acute) NSTEMI (non-ST [...] metoprolol at this time. 2. Atherosclerosis of [place] coronary artery of [place] heart without angina pectoris I25.10 SHAHEED Finley Patient denies any chest pain, arm pain, jaw pain, neck pain, shortness of breath, or fatigue suggestive of angina at this time. We will continue to monitor this. We will not make any medication regimen changes and will continue risk factor modification. 3. History of coronary artery stent placement Z95.5 [id number]-[id number] Cx 2.5 x 24 mm Synergy Stent [...] pacemaker check from January 2018 showed AP%=54%, LAB COORDINATOR%=2.2%, battery longevity of 10-10.6 years, 5 MS episodes comprising of less than 1% total time, episode of atrial flutter on 12/09/2017 for 1 minute and 20 seconds, and 2 VHR episodes. She will continue to follow-up with pacemaker clinic on a routine/scheduled basis. 5. Essential hypertension I10 SHAHEED Finley Her blood pressure is slightly elevated. [...] prior to saving. 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 transplanted heart: [place] heart History of coronary artery stent placement Z95.5 Cardiac pacemaker in situ Z95.0 Essential hypertension I10 Hypertension type: essential hypertension Pure hypercholesterolemia E78.00 Hyperlipidemia type: pure hypercholesterolemia Coding Level of Care Code Off vis,est,level 3 Diagnoses Dizziness R42 Atherosclerosis of [place] coronary artery of [place] heart without angina pectoris I25.10 [place] vs. transplanted heart: [place] heart History of coronary artery stent placement [...] 01-21-2018 Pacemaker Check Comments: See Note; NOTES: [facility] [address] [place] [address] Pacemaker Check Date of Service: 01/18/18 1450 MR#: [id number] Acct: [id number] Name: RENÉETRINIDAD Karl Rep #: [id number] : 1935 From: Nikki Tamayo Age/Sex: 82/F [place] [facility] [place] Status: Signed Billing Codes PM Device Codes: PM Dev Prog Eval, Dual 01/18/18 145 <Electronically signed by Nikki Tamayo > Date Nikki Tamayo 01/21/18 0717<Electronically signed by Pako Morocho MD> Cosigner Signature: Date (if applicable) Pako Morocho MD CC: Rox Heurta Start: 09-10-2017 End: 09-10-2017 Consultation Comments: See Note; NOTES: [facility] Medical Records Department [address] [place] [address] Consultation 09/10/17 1043 MR#: [id number] Acct: [id number] Name: TRINIDAD PARKER Rep #: [id number] : 1935 82 From: Pako Morocho MD PCP: Rox Huerta DO Status: REG SD Y Location: [facility] Reason for Consult Date of Consultation: [...] vessel with 50% ostial stenosis, small septal auditing coder with 20 to 30% stenosis in the [...] risk medication (Chronic) Atherosclerotic heart disease of [place] coronary artery without angina pectoris (Chronic) Nonrheumatic [...] Office Visit Report Comments: See Note; NOTES: [facility] [address] [place] [address] OFFICE VISIT Date of Service: 09/05/17 MR#: [id number] Acct: [id number] Patient: TRINIDAD PARKER Rep #: [id number] : 1935 Provider: Pako Morocho MD Age/Sex: 82/F [place] [facility] Status: Signed Intake Intake Visit Reasons: [...] Confirmed 07/17/17] Ipratropium/Albuterol Respimat [Combivent Respimat Inhal [place]] 1 puff INHALATION BID 12/01/16 [History Confirmed [...] am, pt to arrive at 10am. 09/05/17 6125 <Electronically signed by Pako Morocho MD> Date Pako Morocho MD Cosigner Signature: Date (if applicable) CC: Rox Jones Start: 08-08-2017 End: 08-08-2017 Dexa Bone Density Study Comments: See Note; NOTES: [facility] Imaging Services [address] [place] [address] Dexa Bone Density Study MR#: [id number] Acct: [id number] Name: TRINIDAD PARKER Rep #: [id number] : 1935 F 82 From: Grabiel Gallagher MD PCP: Rox Hureta DO Status: REG CLI Study: Dexa Bone Density Study Date of Exam: 08/08/17 Exam# [id number] Ordering Dr: Rox Huerta DO STUDY: DUAL [...] Grabiel Gallagher MD at 12:33 EDT Tel [phone], Service support , CC: Rox Huerta DO Qc Chemist: Signed Rox Huerta Work Phone: Start: 08-01-2017 End: 08-01-2017 Pacemaker Check Comments: See Note; NOTES: [facility] [address] [place] [address]. [address] [place] [address] Pacemaker Check Date of Service: 07/17/17 1726 MR#: [id number] Acct: [id number] Name: TRINIDAD PARKER Rep #: [id number] : 1935 From: Nikki Tamayo Age/Sex: 81/F [place] [facility] [place] Status: Signed Comments Summary Comments: Dual Chamber Pacemaker Evaluation: See attached scanned sas programmer analyst report. Interrogation shows 4 MS episodes, <1% total time and 1 VHR episode since 01/19/17. Stored e-gram for VHR 0n 05/28/17 shows what appears to be supraventricular tachycardia @ 190 bpm x 7 beats. Right pectoral pocket/incision w/o s/s of infection or erosion. Pt states she had IL approx 1 mos ago and had been tired. Starts Cardiac Rehab on 07/18/17. Presenting rhythm shows AV sequential paced @ 60 ppm. LAB COORDINATOR=1.4%. Estimate battery life 10 to 10.8 yrs. Device and lead measurements remain stable. No parameter changes made. Counters cleared. Next f/u appt scheduled for in 6 mos. Device Device Date Interviewed: 07/17/17 Follow-up Location: in office Interview Reason: routine follow up [employer]: [employer] Name: Patricia AL Model: 2240 Serial #: [id number] Implant Date: 04/19/15 Year(s): 2 Implant Physician: Dr. Pako Morocho/[facility] Patient Characteristics Atrial Indication: sick sinus syndrome AV/Node Indication: Complete heart block Ejection fraction %: 60 to 64 (11/30/2011) By: Echo Underlying rhythm: Sinus bradycardia Pacemaker Dependent: No Device Characteristics Device: Dual Chamber Type: Pacemaker Remote Follow-Up: No Device Physical Exam Yes Incision well healed Leads Lead #1 [employer] Lead 1: [employer] Model Lead 1: 1688T Serial# Lead 1: [id number] Date Implanted Lead 1: 01/07/07 Position Lead 1: RA Lead #2 [employer] Lead 2: [employer] Model Lead 2: 1688T Serial# Lead 2: [id number] Date Implanted Lead 2: 01/07/07 Position Lead 2: RA Lead #3 [employer] Lead 3: [employer] Model Lead 3: 1688T Serial# Lead 3: [id number] Date Implanted Lead 3: 01/07/07 Position Lead [...] Cardiology Visit Report Comments: See Note; NOTES: [facility] [address] [place] [address] OFFICE VISIT Date of Service: 07/17/17 MR#: [id number] Acct: [id number] Name: TRINIDAD PARKER Rep #: [id number] : 1935 Provider: Pako Morocho MD Age/Sex: 81/F [place] [facility] [place]: Signed HPI HPI Chief [...] vessel with 50% ostial stenosis, small septal auditing coder with 2030% stenosis in the circumflex artery [...] Reasons: 6 M FU (pacer @ 11:30am) Environment Coordinator Required: No Accompanied by: None Is patient [...] Confirmed 07/17/17] Ipratropium/Albuterol Respimat [Combivent Respimat Inhal [place]] 1 puff INHALATION BID 12/01/16 [History Confirmed [...] to 64 (63% per echo 11/30/2011 at [facility]) [facility] Medical History HLD (hyperlipidemia) (Chronic) Complete heart block by electrocardiogram (Chronic) Atherosclerotic heart disease of [place] coronary artery without angina pectoris (Chronic) Nonrheumatic mitral (valve) prolapse (Chronic) Atherosclerosis of coronary artery of [place] heart without angina pectoris (Acute) NSTEMI (non-ST [...] History AND Physical Comments: See Note; NOTES: [facility] Cardiac Rehab [address] [place] [address] CR - History AND Physical MR#: [id number] Acct: [id number] Name: TRINIDAD PARKER Rep #: [id number] : 1935 81 From: Miles Romo BS, [...] Advanced Directives - Advanced Directives Power of Barrel Coater: Yes Living Will: Yes Advance Directives Information [...] = Denies (Slash). Left click = Reports ([place]) Review of Present Symptoms: Reports: Shortness of [...] Cardiology Visit Report Comments: See Note; NOTES: [facility] [address] [place], [place] [address] OFFICE VISIT Date of Service: 06/08/17 MR#: [id number] Acct: [id number] Name: TRINIDAD PARKER Rep #: [id number] : 1935 Provider: Dori Wong Age/Sex: 81/F [place] [facility] Status: Signed HPI HPI Details: TRINIDAD PARKER, is a 81 F who presents to the office today for a hospital follow-up. She was admitted to [facility] on May 31 for chest and left [...] brachial Intake Visit Reasons: CP/ Elevated troponin Environment Coordinator Required: No Accompanied by: None Is patient [...] Confirmed 06/08/17] Ipratropium/Albuterol Respimat [Combivent Respimat Inhal [place]] 1 puff INHALATION BID 12/01/16 [History Confirmed [...] by electrocardiogram (Chronic) Atherosclerotic heart disease of [place] coronary artery without angina pectoris (Chronic) Nonrheumatic mitral (valve) prolapse (Chronic) Atherosclerosis of coronary artery of [place] heart without angina pectoris (Acute) Hypertension (Chronic) [...] affect Assessment AND Plan 1. Atherosclerosis of [place] coronary artery of [place] heart without angina pectoris I25.10 Plan - [...] Code Off vis,est,level 3 Diagnoses Atherosclerosis of [place] coronary artery of [place] heart without angina pectoris I25.10 [place] vs. transplanted heart: [place] heart Essential hypertension I10 Hypertension type: essential hypertension Dyslipidemia E78.5 Status post placement of cardiac pacemaker Z95.0 Hematoma and contusion T14.8XXA Coding Level of Care Code Off vis,est,level 3 Diagnoses Atherosclerosis of [place] coronary artery of [place] heart without angina pectoris I25.10 [place] vs. transplanted heart: [place] heart Essential hypertension I10 Hypertension type: essential hypertension Dyslipidemia E78.5 Status post placement of cardiac pacemaker Z95.0 Hematoma and contusion T14.8XXA 06/08/17 1445 <Electronically signed by Dori DANIELLE> Date Dori DANIELLE 06/08/17 1700<Electronically signed by Pako Morocho MD> Cosigner Signature: Date (if applicable) Pako Morocho MD CC: Rox Jones Start: 06-08-2017 End: 06-23-2017 12 Lead [place] [facility] Comments: See Note; NOTES: [facility] [address] [place] [address] 12 Lead EKG performed by [facility] 06/08/17 1345 MR#: [id number] Acct: [id number] Name: TRINIDAD PARKER Karl Rep #: [id number] : 1935 81 From: Dori DANIELLE Attending Dr: Dori Wong Status: DEP AMB Ordering Dr: Dori Wong Date: 06/08/17 [place] [facility] Sex: F C Ad[place] [facility] Lead E[place] performed by [facility] Electronic atrial pacemaker Low voltage in precordial leads. -Incomplete right undle branch block and left axis -anterior fascicular block. -Right atrial nlargement. ABNORMAL 06/09/17 1201 <Electronically signed by Dori DANIELLE> Date Dori DANIELLE CC: Rox Huerta DO Date Dictated: 06/08/171344 Date Transcribed: 06/08/171344 Qc Chemist: RIKKI Signed Rox Huerta Start: 05-31-2017 History of placement of stent for coronary artery disease History of coronary artery stent placement Dr. Jian Savage Work Phone: Comment on above: PCI-AFSHAN-LCx w/ 2.5 x 24 mm Synergy Stent 05/31/17 Start: 05-30-2017 End: 05-30-2017 Chest 1 View (Portable) Comments: See Note; NOTES: [facility] Imaging Services [address] [place] [address] Chest 1 View (Portable) MR#: [id number] Acct: [id number] Name: TRINIDAD PARKER Rep #: [id number] : 1935 F 81 From: Grabiel Gallagher MD PCP: Rox Huerta DO Status: PRE ER Study: Chest 1 View (Portable) Date of Exam: 05/30/17 Exam# [id number] Ordering Dr: Rudy Christian MD STUDY: X-RAY [...] Grabiel Gallagher MD at 14:55 EDT Tel [phone], Service support , CC: Rudy Christian MD; Rox Huerta DO Qc Chemist: Signed Rox Huerta Start: 03-22-2017 End: 03-22-2017 Chest PA and Lateral Comments: See Note; NOTES: [facility] Imaging Services [address] [place] [address] Chest PA and Lateral MR#: [id number] Acct: [id number] Name: TRINIDAD PARKER Rep #: [id number] : 1935 F 81 From: Laura Navarrete MD PCP: Rox Huerta DO Status: REG CLI Study: Chest PA and Lateral Date of Exam: 03/22/17 Exam# [id number] Ordering Dr: Rox Huerta DO STUDY: X-RAY [...] Service support , CC: Rox Huerta DO Qc Chemist: Signed Rox Huerta Work Phone: Start: 03-08-2017 End: 03-08-2017 SCREENING MAMM (CAD), BILAT Comments: See Note; NOTES: [facility] Imaging Services [address] [place] [address] SCREENING MAMM (CAD), BILAT MR#: [id number] Acct: [id number] Name: TRINIDAD PARKER Rep #: [id number] : 1935 F 81 From: Grabiel Gallagher MD PCP: Rox Huerta DO Status: REG CLI Study: SCREENING MAMM (CAD), BILAT Date of Exam: 03/08/17 Exam# [id number] Ordering Dr: Rox Huerta DO MAMMOGRAPHY - [...] delay biopsy of a clinically suspicious abnormality. [id number] Electronically Signed: Grabiel Gallagher MD at 15:38 EST Tel [phone], Service support , CC: Rox Huerta DO Qc Chemist: Signed Rox Huerta Work Phone: Start: 01-29-2017 End: 01-29-2017 Stress Report Comments: See Note; NOTES: [facility] Cardiovascular Services [address] [place] [address] MR#: [id number] Acct: [id number] Name: TRINIDAD PARKER Rep #: [id number] : 1935 81 From: Pako Morocho MD [...] Morocho MD CC: Pako Morocho MD; Rox Heurta DO Date Dictated: 01/29/171744 Date Transcribed: 01/29/171744 Qc Chemist: [place] Signed Rox Huerta Start: 01-19-2017 End: 01-19-2017 Inital Evaluation (1) - PT Comments: See Note; NOTES: [facility] Physical Therapy [facility] [address] [place], [place] [address] Fax REHABILITATION SERVICES INITIAL EVALUATION MR#: [id number] Acct: [id number] Name: TRINIDAD PARKER Rep #: [id number] : 1935 81 From: Donna Pemberton MPT Referring Dr.: Patricia Roland DPM Status: REG RCR Insurance: MEDICARE PART A B [facility] Patient's Visit Information TRINIDAD PARKER [...] to be FAXED BACK to us at [phone] for Medicare purposes. 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 Light Coil Winder: Jin Harris, PGY 2 Pre-Operative Diagnosis: left foot ganglion cyst. Post-Operative Diagnosis: left foot ganglion cyst. left foot dorsal bone spur Surgery/Procedure Performed:: excision of ganglion cyst with spur excision of left foot Description of Surgical Findings:: Hemostasis: Left well-padded pneumatic ankle tourniquet, 250 mmHg, 53 minutes Materials 2-0 and 3-0 Vicryl, 4-0 nylon Complications: none international marketing manager: Chloe Benavidez Type of Anesthesia:: Local MAC [...] times by her primary care physician and product development manager. The fluid from the cyst was tested [...] Patricia Roland DPM [facility] [phone] 12/17/16 1140 <Electronically signed by Patricia Roland DPM> Date Patricia Roland DPM CC: Patricia Roland DPM; Rox Huerta DO Signed Rox Huerta Start: 12-08-2016 End: 12-08-2016 Foot 2 Views Comments: See Note; NOTES: [facility] Imaging Services [address] [place] [address] Foot 2 Views MR#: [id number] Acct: [id number] Name: TRINIDAD PARKER Rep #: [id number] : 1935 F 81 From: Grabiel Gallagher MD PCP: Rox Huerta DO Status: [facility] Study: Foot 2 Views Date of Exam: 12/08/16 Exam# [id number] Ordering Dr: Patricia Roland DPM STUDY: X-RAY [...] Grabiel Gallagher MD at 14:42 EDT Tel [phone], Service support , CC: Patricia Roland DPM; Rox Huerta DO Qc Chemist: Signed Rox Huerta Start: 12-08-2016 End: 12-08-2016 Discharge Instruction Comments: See Note; NOTES: [facility] Medical Records Department [address] [place] [address] Instructions for Home/Discharge Instructions 12/08/16 1057 MR#: [id number] Acct: [id number] Name: RENÉETRINIDAD M Rep #: [id number] : 1935 81 From: Patricia Roland DPM PCP: Rox Huerta DO Status: REG SCC Discharge Diet: No Restrictions Discharge Activity: May [...] BID 12/01/16 Ipratropium/Albuterol Respimat [Combivent Respimat Inhal [place]] 1 puff INHALATION BID 12/01/16 Primary Care Physician: Rox Huerta DO [Primary Care Provider] - Please Follow Up With: Patricia Roland When: 1 [facility]; call [phone] if questions earlier Proposed Discharge Date: 12/08/16 12/08/16 1102 <Electronically signed by Patricia Roland DPM> Date Patricia Roalnd DPM CC: Rox Bradley HERNDON Rox Huerta Start: 12-02-2016 End: 12-02-2016 Chest PA and Lateral Comments: See Note; NOTES: [facility] Imaging Services [address] [place] [address] Chest PA and Lateral MR#: [id number] Acct: [id number] Name: TRINIDAD PARKER Rep #: [id number] : 1935 F 81 From: Milan Hernandez PCP: Rox Huerta DO Status: PRE SDC Study: Chest PA and Lateral Date of Exam: 12/02/16 Exam# [id number] Ordering Dr: Patricia Roland DPM STUDY: X-RAY [...] CC: Patricia Roland DPM; Rox Huerta DO Qc Chemist: Signed Rox Huerta Start: 09-05-2016 End: 09-05-2016 Inital Evaluation (1) - PT Comments: See Note; NOTES: [facility] Physical Therapy [facility] [address] [place], [place] [address] Fax REHABILITATION SERVICES INITIAL EVALUATION MR#: [id number] Acct: [id number] Name: TRINIDAD PARKER Rep #: [id number] : 1935 81 From: Dieter Fan DPT, OCS, CSCS Referring Dr.: Rox Huerta DO Status: REG RCR Insurance: MEDICARE PART A B [facility] Patient's Visit Information TRINIDAD PARKER is a 81 year old F referred to Physical Therapy by Rox Huerta with a diagnosis of vertigo. Date of Evaluation: 09/04/16 Physical Therapist: Dieter aFn DPT, OC - Visit Plan Frequency: 1x/Week [...] ists, cuts grass, weed shop, visit kids, taoism. - Objective Walks back to [facility] room I, transfers are I chair [...] to be FAXED BACK to us at [phone] for Medicare purposes. Please let me know if there are questions or concerns regarding this plan of care. Physician Signature: ___Date: <Electronically signed by Dieter Fan DPT, [facility], [facility]> 09/05/16 0923 CC: Rox Huerta DO EBG Signed For Medicare only, by signing this I certify the plan of care. Physicians Signature Date Rox Huerta Start: 04-20-2015 End: 04-20-2015 Operative Report Comments: See Note; NOTES: [facility] Medical Records Department [address] [place] [address] Operative Report MR#: [id number] Acct: [id number] Name: TRINIDAD PARKER Rep #: [id number] : 1935 79 From: Pako Morocho MD [...] It was a [employer], model #[id number], serial #[id number]. The leads were inserted. The set screws were tightened and the entire device placed into the pocket after bacitracin solution was used in the pocket. The pocket was then closed in 2 layers with 3-0 and 4-0 Vicryl. Steri-Strips were applied. The patient tolerated the procedure well. Sponge, instrument and needle counts were all normal. Pako Morocho MD T: NTS JOB: [id number] 04/20/15 1729 <Electronically signed by Pako Morocho MD> Date Pako Morocho MD Cosigner Signature (If Indicated): Date CC: Pako Morocho MD; Rox Huerta DO Date Dictated: 04/19/15 1359 Date Transcribed: 04/19/151358 Qc Chemist: Signed Rox Huerta Start: 12-25-2014 End: 12-25-2014 PT Discharge Summary Comments: See Note; NOTES: [facility] [address] [place] [address] Fax REHABILITATION SERVICES DISCHARGE SUMMARY MR#: [id number] Acct: [id number] Name: TRINIDAD PARKER Rep #: [id number] : 1935 79 From: Harika Fraire Referring [...] time. Harika Fraire, PT T: NTS JOB: [id number] <Electronically signed by Harika Fraire > 12/25/14 1351 CC: Rox Huerta DO Signed Rox Huerta Start: 12-09-2014 End: 12-10-2014 Abdomen/Pelvis WITH Contrast Comments: See Note; NOTES: [facility] Imaging Services [address] [place] [address] CAT Scan Report MR#: [id number] Acct: [id number] Name: TRINIDAD PARKER Rep #: [id number] : 1935 F 79 From: Leah Lua MD PCP: Rox Huerta DO Status: REG CLI Study: Abdomen/Pelvis WITH Contrast Date of Exam: 12/09/14 Exam# [id number] Ordering Dr: Roney Reyna MD STUDY: CT [...] MD at 6:05 EDT , Service support [phone], CC: Rox Reyna Qc Chemist: Signed Rox Huerta Start: 12-09-2014 End: 12-10-2014 Chest WITH Contrast Comments: See Note; NOTES: [facility] Imaging Services [address] [place] [address] CAT Scan Report MR#: [id number] Acct: [id number] Name: TRINIDAD PARKER Rep #: [id number] : 1935 F 79 From: Leah Lua MD PCP: oRx Huerta DO Status: REG CLI Study: Chest WITH Contrast Date of Exam: 12/09/14 Exam# [id number] Ordering Dr: Roney Reyna MD STUDY: CT [...] MD at 5:51 EDT , Service support [phone], CC: Rox Huerta DO; Roney Reyna Qc Chemist: Signed Rox Huerta Start: 11-17-2014 End: 11-17-2014 Spine Lumbar without Contrast Comments: See Note; NOTES: [facility] Imaging Services [address] [place] [address] CAT Scan Report MR#: [id number] Acct: [id number] Name: TRINIDAD PARKER Rep #: [id number] : 1935 F 79 From: Bib Moses MD PCP: Rox Huerta DO Status: REG CLI Study: Spine Lumbar without Contrast Date of Exam: 11/17/14 Exam# [id number] Ordering Dr: Rox Huerta DO STUDY: CT [...] MD at 18:52 EDT , Service support [phone], CC: Rox Huerta DO Qc Chemist: Signed Rox Huerta Work Phone: Start: 11-17-2014 End: 11-17-2014 Inital Evaluation - PT Comments: See Note; NOTES: [facility] [address] [place] [address]. [address] [place] [address] Fax REHABILITATION SERVICES INITIAL EVALUATION MR#: [id number] Acct: [id number] Name: TRINIDAD PARKER Rep #: [id number] : 1935 79 From: Harika Fraire Referring [...] then had another injury lifting at a halfway, which was helped again by physical therapy. [...] lower extremity numbness. Oswestry equals 64 percent, L7610-JF, P7108-ZT. GOALS: 1. Decrease complaint of low back [...] care. Harika Fraire, PT T: CRUZ JOB: [id number] <Electronically signed by Harika Fraire > 11/17/14 1426 CC: Signed For Medicare only, by signing this I certify the plan of care. Physicians Signature Date Rox Huerta Start: 10-13-2013 End: 10-13-2013 Bilat Scrn Digital & CAD Comments: See Note; NOTES: [facility] Imaging Services [address] [place] [address] Breast Imaging Report MR#: [id number] Acct: [id number] Name: TRINIDAD PARKER Rep #: [id number] : 1935 F 78 From: Grabiel Gallagher MD PCP: Rox Huerta DO Status: REG CLI Exam# [id number] Ordering Dr: Rox Huerta DO MAMMOGRAPHY - [...] Grabiel Gallagher MD at 10:18 EDT Tel [phone], Service support [phone], CC: Rox Huerta DO Qc Chemist: Signed Rox Bradley Work Phone: Start: 07-29-2013 End: 07-29-2013 L/S Spine Min 4 Views Comments: See Note; NOTES: [facility] Imaging Services [address] [place] [address] Radiology Report MR#: [id number] Acct: [id number] Name: TRINIDAD PARKER Rep #: [id number] : 1935 F 78 From: Steven Alcantara MD PCP: Rox Huerta DO Status: REG CLI Study: L/S Spine Min 4 Views Date of Exam: 07/29/13 Exam# [id number] Ordering Dr: Libia Lama STUDY: X-RAY - [...] at 16:09 EDT Tel , Service support [phone], RAD/L/S Spine Min 4 Views IMPRESSION: No definite acute abnormality. Prominent degenerative changes at L2-L3. Electronically Signed: Steven Alcantara MD at 16:09 EDT Tel , Service support [phone], CC: Libia Lama; Rox Huerta DO Qc Chemist: Signed Libia Lama Work Phone: Start: 12-20-2012 End: 12-25-2012 Hepatobilliary Imaging Comments: See Note; NOTES: [facility] Imaging Services [address] [place] [address] Nuclear Medicine Report MR#: [id number] Acct: [id number] Name: TRINIDAD PARKER Rep #: [id number] : 1935 F 77 From: Yonis Colmenares PCP: Rox Huerta DO Status: REG CLI Study: Hepatobilliary Imaging Date of Exam: 12/20/12 Exam# [id number] Ordering Dr: Rox Huerta DO CLINICAL: 77-year-old [...] December 21, 2012 at 10:54:18 AM EDT [phone] Electronically Signed RB/RB If you are the referring physician and would like to consult with the radiologist who provided this interpretation, please contact Yonis Colmenares M.D. at [phone]. If this radiologist is unavailable, you will be directed to another radiologist to assist. If you are a patient with a question regarding this report, please contact your referring physician directly. Professional Interpretation Provided By: [employer], Phone , CLINICAL: 77-year-old female with reported [...] December 21, 2012 at 10:54:58 AM EDT [phone] Electronically Signed RB/RB If you are the referring physician and would like to consult with the radiologist who provided this interpretation, please contact Yonis Colmenares M.D. at [phone]. If this radiologist is unavailable, you will be directed to another radiologist to assist. If you are a patient with a question regarding this report, please contact your referring physician directly. Professional Interpretation Provided By: [employer], Phone , These documents contain legally protected [...] of these documents. CC: Rox Huerta DO Qc Chemist: Signed Rox Huerta Work Phone: Appendectomy [place] [...] Yumiko Gravius spinal fusion surger y 2016 [facility] [employer]inoska Messenger Comment on above: dr Blaise Aparicio MD spinal fusion surger y 2015 [facility] [employer] Messenger Comment on above: dr Blaise Aparicio MD spinal fusion surger y 2015 [facility] Yumiko Gravius Comment on above: dr Blaise Aparicio MD Urine culture Dr. Jian carlson Work Phone: Viral antigen assay Dr. Jian Viveros Work Phone: Plan of Treatment Date Care Activity Detail Author Start: 11-19-2024 ambulatory Ambulatory Facility:[facility] Start: 11-06-2024 Thiamine measurement [facility] Start: 11-06-2024 Vitamin B6 measurement [facility] Start: 05-23-2025 Patient discharge [facility] Start: 07-29-2024 XR Chest PA and Lateral [facility] Start: 04-24-2023 Thiamine measurement [facility] Start: 09-28-2022 Thiamine measurement [facility] Start: 09-28-2022 Vitamin B6 measurement [facility] Start: 07-25-2022 Patient discharge [facility] Start: 07-24-2022 [facility] Start: 07-24-2022 Referral to service [facility] Start: 07-24-2022 Ambulation without limitation [facility] Start: 07-24-2022 Assessment of risk of venous thromboembolism [facility] Start: 07-24-2022 Catheterization of vein [facility] Start: 07-24-2022 Continuous pulse oximetry [facility] Start: 07-24-2022 Deep breathing and coughing exercises [facility] Start: 07-24-2022 Elevation of head of bed [facility] Start: 07-24-2022 Incentive spirometry [facility] Start: 07-24-2022 Insertion of catheter into peripheral vein [facility] Start: 07-24-2022 Measuring intake and output [facility] Start: 07-24-2022 Notification of physician [facility] Start: 07-24-2022 Oxygen therapy [facility] Start: 07-24-2022 Patient referral to dietitian [facility] Start: 07-24-2022 Providing care according to standard [facility] Start: 07-24-2022 Provision of activity privileges [facility] Start: 07-24-2022 Referral to occupational therapist [facility] Start: 07-24-2022 Referral to service [facility] Start: 07-24-2022 Vital signs measurements [facility] Start: 07-24-2022 [facility] Start: 07-24-2022 Following clinical pathway protocol [facility] Start: 07-24-2022 Admission procedure [facility] Start: 07-24-2022 Maintenance of invasive device [facility] Start: 07-24-2022 Inhalation therapy procedure [facility] Start: 12-08-2021 Blood chemistry [facility] Work Phone: Start: 12-07-2021 Blood chemistry [facility] Work Phone: Start: 12-06-2021 Patient discharge [facility] Work Phone: Start: 12-05-2021 Referral to service [facility] Work Phone: Start: 12-04-2021 Following clinical pathway protocol [facility] Work Phone: Start: 12-04-2021 Assessment of risk of venous thromboembolism [facility] Work Phone: Start: 12-04-2021 Catheterization of vein [facility] Work Phone: Start: 12-04-2021 Inhalation therapy procedure [facility] Work Phone: Start: 12-04-2021 Insertion of catheter into peripheral vein [facility] Work Phone: Start: 12-04-2021 Oxygen therapy [facility] Work Phone: Start: 12-04-2021 Physiotherapy of chest [facility] Work Phone: Start: 12-04-2021 Providing care according to standard [facility] Work Phone: Start: 12-04-2021 Provision of activity privileges [facility] Work Phone: Start: 12-04-2021 Referral to occupational therapist [facility] Work Phone: Start: 12-04-2021 Referral to service [facility] Work Phone: Start: 12-04-2021 End: 12-04-2021 Blood culture [facility] Work Phone: Start: 12-04-2021 Verification routine [facility] Work Phone: Start: 12-04-2021 Following clinical pathway protocol [facility] Work Phone: Start: 12-04-2021 Admission procedure [facility] Work Phone: Start: 12-04-2021 End: 12-04-2021 [facility] Work Phone: Start: 12-04-2021 End: 12-04-2021 Blood culture [facility] Work Phone: Start: 12-04-2021 End: 12-04-2021 [facility] Work Phone: Start: 12-04-2021 Patient referral to dietitian [facility] Work Phone: Start: 11-08-2018 Provider Instructions for Treatment Continue Current Prescription(s) [facility] Work Phone: Start: 10-25-2018 Procedure Education Eprescribed prescriptions (G8515) [facility] Work Phone: Start: 10-25-2018 Provider Instructions for Treatment [facility] Work Phone: Start: 05-29-2018 Provider Instructions for Treatment [facility] Work Phone: Start: 05-29-2018 T4 free mass conc T4, FREE (THYROXINE) (62353) [facility] Work Phone: Start: 05-29-2018 T3 free mass conc T3, FREE (TRIDOTHYRONINE) (41643) [facility] Work Phone: Start: 05-29-2018 Thyrotropin Qn TSH (31554) [facility] Work Phone: Start: 05-29-2018 Lipoprotein blood daksha numbers & subclasses NMR Profile (78253) [facility] Work Phone: Start: 05-29-2018 Protein mass conc NMR Profile (91975) [facility] Work Phone: Start: 05-29-2018 Urnls dip stick/tablet reagent auto microscopy URINALYSIS, W/ MICRO (27054) [facility] Work Phone: Start: 05-29-2018 Urine albumin quantitative MICROALBUMIN: CREATININE RATIO (02323) AND (12772) [facility] Work Phone: Start: 05-29-2018 Comprehensive metabolic panel METABOLIC PANEL, COMPREHENSIVE (86386) [facility] Work Phone: Start: 05-29-2018 Blood count complete auto&auto difrntl wbc CBC W/AUTO DIFF WBC (62135) [facility] Work Phone: Start: 03-01-2018 Provider Instructions for Treatment [facility] Work Phone: Start: 01-21-2018 Provider Instructions for Treatment [facility] Work Phone: Start: 01-21-2018 Basic metabolic panel calcium total Metabolic Panel, Basic (31817) [facility] Work Phone: Start: 12-31-2017 [...] - Strool Based DNA Test, CRC SCREEN (48975) [facility] Work Phone: Start: 08-02-2017 Provider Instructions for Treatment [facility] Work Phone: Start: 06-25-2017 Provider Instructions for Treatment [facility] Work Phone: Start: 05-22-2017 Calcium mass conc CALCIUM SERUM (33527) [facility] Work Phone: Start: 05-22-2017 Calcium ionized CALCIUM, IONIZED (75419) [facility] Work Phone: Start: 05-22-2017 25 hydroxy includes fractions if performed CALCIFEDIOL (31409) [facility] Work Phone: Start: 05-22-2017 Assay of parathormone PARATHORMONE (53195) [facility] Work Phone: Start: [...] Work Phone: Start: 02-05-2017 Thyrotropin Qn TSH (49915) [facility] Work Phone: Start: 02-05-2017 25 hydroxy includes fractions if performed CALCIFEDIOL (39166) [facility] Work Phone: Start: 02-05-2017 Urine albumin quantitative MICROALBUMIN: CREATININE RATIO (52550) AND (12245) [facility] Work Phone: Start: 02-05-2017 Comprehensive metabolic panel METABOLIC PANEL, COMPREHENSIVE (29025) [facility] Work Phone: Start: 02-05-2017 Lipid panel LIPID PANEL (60443) [facility] Work Phone: Start: 02-05-2017 Blood count complete auto&auto difrntl wbc CBC with auto diff (19354) [facility] Work Phone: Start: 11-17-2016 Provider Instructions for Treatment [facility] Work Phone: Start: 10-16-2016 Basic metabolic panel calcium total METABOLIC PANEL, BASIC (04055) [facility] Work Phone: Start: 10-05-2016 [...] 25 hydroxy includes fractions if performed CALCIFIDIOL (22729) VIT D 25 [facility] Work Phone: Start: 05-25-2016 T4 free mass conc T4, FREE (THYROXINE) (90915) [facility] Work Phone: Start: 05-25-2016 T3 free mass conc T3, FREE (TRIDOTHYRONINE) (67488) [facility] Work Phone: Start: 05-25-2016 Thyrotropin Qn TSH (04191) [facility] Work Phone: Start: 05-25-2016 Urnls dip stick/tablet reagent auto microscopy URINALYSIS, W/ MICRO (99778) [facility] Work Phone: Start: 05-25-2016 Urine albumin quantitative MICROALBUMIN: CREATININE RATIO (08442) AND (37633) [facility] Work Phone: Start: 05-25-2016 Comprehensive metabolic panel METABOLIC PANEL, COMPREHENSIVE (36263) [facility] Work Phone: Start: 05-25-2016 Lipid panel LIPID PANEL (60725) [facility] Work Phone: Start: 05-25-2016 Blood count complete auto&auto difrntl wbc CBC W/AUTO DIFF WBC (92642) [facility] Work Phone: Start: 03-06-2016 Provider Instructions for Treatment Reviewed Lab [facility] Work Phone: Start: 02-08-2016 Procedure Education Eprescribed prescriptions (G8553) [facility] Work Phone: Start: 02-08-2016 Provider Instructions for Treatment [facility] Work Phone: Start: 02-08-2016 Blood occult fecal hgb deter ia qual feces 1-3 FECAL OCCULT- Tubes sent home (87819) [facility] Work Phone: Start: 01-20-2016 [...] Work Phone: Start: 12-27-2012 Patient Education [facility] Work Phone: Start: 12-27-2012 Provider Instructions for Treatment [facility] Work Phone: Start: 12-11-2012 Antibody cytomegalovirus cmv CMV ANTIBODY (53892) [facility] Work Phone: Start: 12-11-2012 Antibody cytomegalovirus cmv igm CMV IGM ANTBDY (01188) [facility] Work Phone: Start: 12-11-2012 Antibody kareem-patino eb virus viral capsid vca EB ANTIBODY VIRAL CAPSID (97354) X2 [facility] Work Phone: Start: 12-11-2012 Antibody kareem-patino eb virus nuclear ag ebna EB ANTIBODY NUCLR ANTIGN (60046) [facility] Work Phone: Start: 12-11-2012 Antibody kareem-patino eb virus early antigen ea EB ANTIBODY EARLY ANTIGN (50160) [facility] Work Phone: Start: 12-11-2012 25 hydroxy includes fractions if performed CALCIFIDIOL (11326) VIT D 25 [facility] Work Phone: Start: 12-11-2012 Assay of folic acid serum Folate (46849) [facility] Work Phone: Start: 12-11-2012 Cobalamin (Vitamin B12) mass conc VITAMIN B-12 (CYANOCOBALAMIN) (68886) [facility] Work Phone: Start: 12-11-2012 Thyrotropin Qn TSH (23256) [facility] Work Phone: Start: 12-11-2012 Sedimentation rate rbc non-automated SED RATE ERYTHROCYTE (61210) [facility] Work Phone: Start: 12-11-2012 Rheumatoid factor quantitative RHEUMATOID FACTOR-QUANT (47416) [facility] Work Phone: Start: 12-11-2012 Comprehensive metabolic panel METABOLIC PANEL, COMPREHENSIVE (92683) [facility] Work Phone: Start: 12-11-2012 CRP mass conc C-REACTIVE PROTEIN (85185) [facility] Work Phone: Start: 12-11-2012 Blood count complete automated CBC (AUTO) (87328) [facility] Work Phone: Start: 12-11-2012 Nuclear Ab IF titer (S) ASHLEIGH (ANTINUCLEAR ANTIBODY) (64702) [facility] Work Phone: Start: 12-11-2012 Provider Instructions for Treatment [facility] Work Phone: Start: 10-07-2012 Patient Education Allergies: allergen [facility] Work Phone: Start: 10-07-2012 Provider Instructions for Treatment [facility] Work Phone: Start: 07-05-2012 Patient Education Allergies: allergies [facility] Work Phone: Start: 06-11-2012 Patient Education Itching: itch [facility] Work Phone: Start: 06-11-2012 Provider Instructions for Treatment [facility] Work Phone: Start: 06-07-2012 Provider Instructions for Treatment [facility] Work Phone: Start: 06-03-2012 Provider Instructions for Treatment [facility] Work Phone: Start: 03-27-2012 Provider Instructions for Treatment [facility] Work Phone: Bacteria identified in Blood by Culture Blood Culture [facility] Work Phone: Bacteria identified in Urine by Culture Urine Culture [facility] Work Phone: Basic metabolic 2008 panel with ionized calcium - Serum or Plasma [facility] Blood culture [facility] Work Phone: Complete blood count [facility] CTA Head vessels and Neck vessels W contrast IV [facility] Patient referral [facility] Work Phone: Prothrombin time [facility] Replacement of elect ronic heart device, pulse generator [facility] Urinalysis complete panel - Urine [facility] US Carotid arteries [facility] US Carotid arteries [facility] Heart [facility] Work Phone: Comprehensive [...] Immunization Date Immunization Notes Care Provider Fa [facility] 08-20-2020 Covjocelin (Moderna) Dr. Jian santoyo Work Phone: [facility] 07-23-2020 Jeimy SalazarModernmukesh) Dr. Jian santoyo Work Phone: [facility] 01-17-2018 pneumococcal conjuga te vaccine, 7 valent Rox Huerta [facility] Work Phone: Payers Date Payer Category Payer Self-pay [id number] 2023 Unknown [id number] 2018 Medicare [id number] 2014 Unknown [id number] 2002 Medicare [id number] 2002 Medicare [id number] 1935 Unknown [id number] 2.16.840.1.233169.3.579.2.71 6 Private Health Insurance [facility] [id number] Unknown [employer]/Medicare Unknown [id number] Unknown [id number] 2.16.840.1.171458.3.579.2.46 2 Unknown [id number] 2.16.840.1.363893.3.579.2.46 2 Unknown [id number] 2.16.840.1.623811.3.579.2.46 2 Unknown [id number] 2.16.840.1.865167.3.579.2.46 2 Unknown [id number] 2.16.840.1.924815.3.579.2.46 2 Unknown [id number] 2.16.840.1.412478.3.579.2.46 2 Unknown [id number] 2.16.840.1.675495.3.579.2.46 2 Unknown [id number] 2.16.840.1.527741.3.579.2.46 2 Unknown [id number] 2.16.840.1.396940.3.579.2.46 2 Unknown [id number] 2.16.840.1.087288.3.579.2.46 2 Unknown [id number] 2.16.840.1.056256.3.579.2.46 2 Unknown [id number] 2.16.840.1.528234.3.579.2.46 2 Unknown [id number] 2.16.840.1.278377.3.579.2.46 2 Unknown [id number] 2.16.840.1.325319.3.579.2.46 2 Unknown [id number] 2.16.840.1.484029.3.579.2.46 2 Unknown [id number] 2.16.840.1.473986.3.579.2.46 2 Unknown [id number] 2.16.840.1.215719.3.579.2.46 2 Unknown [id number] 2.16.840.1.608530.3.579.2.46 2 Unknown [id number] 2.16.840.1.660849.3.579.2.46 2 Unknown [id number] 2.16.840.1.745291.3.579.2.46 2 Social History Date Type Detail Facility [...] Start: 05-24-2021 End: 06-19-2023 Tobacco smoking status [facility] Unknown if ever smoked [facility] Start: 01-20-2020 None [facility] Start: 01-20-2020 Alone [facility] Start: 01-20-2020 Cigarettes [facility] Start: 1935 Sex Assigned At Female [facility] Start: 10-11-2023 End: 08-08-2024 Tobacco smoking status NHIS Ex-smoker (finding) [facility] Start: 06-10-2024 Sex Female (finding) [facility] Medical Equipment Procedure Code Equipment Code Equipment Origin al Text Equipment Identifier Dates Endarterectomy, carotid Cardiovascular patch, animal-derived [id number] FDA Start: 07-24-2022 Endarterectomy, carotid Ligation clip, metallic [id number] FDA Start: 07-24-2022 Endarterectomy, carotid Ligation clip, metallic [id number] FDA Start: 07-24-2022 Endarterectomy, carotid Ligation clip, metallic [id number] FDA Start: 07-24-2022 Endarterectomy, carotid Ligation clip, metallic [id number] FDA Start: 07-24-2022 Endarterectomy, carotid Ligation clip, metallic [id number] FDA Start: 07-24-2022 LANCETS (Miscellaneous) 1 [...] Kathleen Start : 21-May-2013 Active Start: 05-21-2013 ([id number]) Dual-chamber implantable pacemaker, rate-responsive ()[id number] FDA Start: 08-08-2024 Goals Date Patient Goal Desired Activity /State Functional Status Date Assessment Result Facility 07-25-2022 Functional status Up ad arnaldo [facility] Work Phone: 12-06-2021 Functional status Chair [facility] Work Phone: Mental Status Date Assessment Result Facility 07-25-2022 Cognitive function Voice/Name [facility] Work Phone: 12-06-2021 Cognitive function Appropriate;Cooperativ e [facility] Work Phone: 12-05-2021 Cognitive function Arousable To Voice/Nam e [facility] Work Phone: 12-04-2021 Cognitive function Level Of Cons ciousness Awake;Alert [facility] Work Phone: 11-27-2021 Cognitive function Awake;Alert;A ppropriate;Follow s Commands [facility] Work Phone: Clinical Notes 04-19-2015 to 11-06-2024 Note Date & Type Note Facility 11-06-2024 Radiology Diagnostic study note [facility] Imaging Services [address] [place] [address] Acute Abdomen Inc Chest MR#: [id number] Acct: [id number] Name: TRINIDAD PARKER Rep #: [id number] : 1935 F 89 From: Oj Weeks MD PCP: Dr. Jian Viveros MD Status: RE G CLI Study:Acute Abdomen Inc Chest Date of Exam: 11/06/24 Exam# [id number] Ordering Dr: Jian Viveros MD PROCEDURE: ACUTE [...] Chest IMPRESSION: NO ACUTE FINDINGS. Reading Location: [id number] CC: Dr. Jian Viveros MD ~ Qc Chemist: Signed [facility] 10-15-2024 Radiology Diagnostic study note [facility] Imaging Services [address] [place] [address] Head/Neck Soft Tissue MR#: [id number] Acct: [id number] Name: TRINIDAD PARKER Rep #: [id number] : 1935 F 89 From: Howard Gallagher MD PCP: Dr. Jian Viveros MD Status: RE G CLI Study:Head/Neck Soft Tissue Date of Exam: 10/13/24 Exam# [id number] Ordering Dr: Jian Viveros MD PROCEDURE: HEAD/NECK [...] No suspicious abnormality is seen. Reading Location: [facility] CC: Dr. Jian Viveros MD ~ Qc Chemist: Signed [facility] 08-14-2024 Procedure note [facility] 07-29-2024 Evaluation note Diagnosis Onset Date Resolution Complete heart block chronic July 29, 2024 12:52pm Paroxysmal atrial fibrillation chronic July 29, 2024 12:52pm Presence of permanent cardiac pacemaker April 19, 2015 chronic July 29, 2024 12:52pm longterm current use of anticoagulant therapy acute July 29, 2024 12:53pm Atherosclerotic heart disease of [place] coronary artery without angina pectoris chronic July 29, 2024 12:53pm Hyperlipidemia chronic July 29, 2024 12:53pm Paroxysmal atrial fibrillation chronic July 29, 2024 12:53pm Presence of permanent cardiac pacemaker April 19, 2015 chronic July 29, 2024 12:53pm [facility] Work Phone: [phone] Evaluation note* Diagnosis Onset Date Resolution Status Admit Date Complete heart block chronic July 29, 2024 12:52pm Paroxysmal atrial fibrillation chronic July 29, 2024 12:52pm Presence of permanent cardia c pacemaker April 19, 2015 chronic July 29 12:52pm longterm current use of anticoagulant therapy acute July 29, 2024 12:53pm Atherosclerotic heart diseas e of [place] coronary artery without angina pectoris chronic July [...] Sick sinus syndrome chronic July 182024 12:58pm [facility] Work Phone: [phone] Procedure [facility] [address] [place] [address] Pacemaker Check Date of Service: 07/29/24 1352 MR#: [id number] Acct: [id number] Name: TRINIDAD PARKER Rep #: [id number] : 1935 From: Nikki quintanilla Age/Sex: 89/F [place] [facility] Status: Signed Billing Codes PM Device Codes: 77043 PM Dev Prog Eval, Dual Assessment and [...] I48.0 - Paroxysmal atrial fibrillation, Z79.01 - longterm (current) use of anticoagulants, Z95.0 - Presence [...] Romero Signature: Date (if applicable) CC: ~ [facility]11-25-2024 Evaluation note* Diagnosis Onset Date Resolution Status Admit Date Dizziness acute February 11, 2024 1:39pm Atherosclerotic heart disease of [place] coronary artery without angina pectoris chronic February 10, 2 024 1:39pm Essential (primary) hypertension chronic February 10, 2 024 1:39pm Paroxysmal atrial fibrillation chronic February 10, 2 024 1:39pm Presence of permanent cardiac pacemaker April 19, 2015 chronic February 102023 1:39pm [facility] Work Phone: 1([phone]) 292-178907-27-2021 NoteHNO ID: [id number] Author: Chance Zhang MD Service: ? Author [...] Chance Zhang MD October 12, 2020 3:13 [facility]02-01-2016 Evaluation note* Diagnosis Onset Date Resolution Status Essential (primary) hypertension chronic Hyperlipidemia chronic Paroxysmal atrial fibrillation chronic Presence of permanent cardiac pacemaker April 19, 2015 chronic History of coronary artery stent placement May 31, 2017 resolved [facility] Work Phone: 1(523) 524-259702-01-2016 Evaluation note* Diagnosis Onset Date Resolution Status [...] syndrome chronic Bilateral carotid artery stenosis chronic [facility] Work Phone: 1([phone]) 710-871402-01-2016 Evaluation note* Diagnosis Onset Date Resolution Status Complete heart block chronic Paroxysmal atrial fibrillation chronic Paroxysmal atrial flutter ch ronic Presence of permanent cardiac pacemaker April 19, 2015 chronic 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 Sick sinus syndrome chronic [facility] Work Phone: [phone]) 842-713502-01-2016 Evaluation note* Diagnosis Onset Date Resolution Status Complete heart block chronic Paroxysmal atrial fibrillation chronic Presence of permanent cardiac pacemaker April 19, 2015 chronic 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 History of coronary artery stent placement May 31, 2017 resolved [facility] Work Phone: 1([phone]) 466-406602-01-2016 Evaluation note* Diagnosis Onset Date Resolution Status Complete heart block chronic Paroxysmal atrial fibrillation chronic Presence of permanent cardiac pacemaker April 19, 2015 chronic 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 History of coronary artery stent placement May 31, 2017 resolved Atherosclerotic heart diseas e of [place] coronary artery without angina pectoris chronic Complete heart block chronic Essential (primary) hypertension chronic Paroxysmal atrial fibrillation chronic [facility] Work Phone: 1(219) 309-491102-01-2016 Evaluation note* Diagnosis Onset Date Resolution Status Admit Date Complete heart block chronic July 29, 2024 12:52pm Paroxysmal atrial fibrillation chronic July 29, 2024 12:52pm Presence of permanent cardiac pacemaker April 19, 2015 chronic July 29, 025 12:52pm [facility] Work Phone: Evaluation noteNo assessment information available [facility] Work Phone: Evaluation note* Diagnosis Onset Date Resolution Status Acute UTI acute Generalized weakness acute Chronic obstructive pulmonary disease with hypoxia chronic COPD exacerbation chronic [facility] Work Phone: Evaluation note* Diagnosis Onset Date Resolution Status Leukocytosis (leucocytosis) acute Acute costochondritis resolv ed [facility] Work Phone: Evaluation note* Diagnosis Onset Date Resolution Status Bilateral carotid artery stenosis chronic Left carotid artery stenosis acute Bilateral carotid artery stenosis chronic [facility] Work Phone: Reason for referral (narrative)No reason for referral [facility]: Family History No Family History [...] Inst ructions Indication:Hypercalcemia Acute myocardial infarction, unspecified [place] type, unspecified artery : cardiovascular counseling Indication:Acute myocardial infarction, unspecified IL type, unspecified artery Hypertension : How to [...] Inst ructions Indication:Hypercalcemia Acute myocardial infarction, unspecified IL type, unspecified artery : cardiovascular counseling Indication:Acute myocardial infarction, unspecified IL type, unspecified artery Hypertension : How to [...] Inst ructions Indication:Hypercalcemia Acute myocardial infarction, unspecified IL type, unspecified artery : cardiovascular counseling Indication:Acute myocardial infarction, unspecified IL type, unspecified artery Hypertension : How to [...] Inst ructions Indication:Hypercalcemia Acute myocardial infarction, unspecified IL type, unspecified artery : cardiovascular counseling Indication:Acute myocardial infarction, unspecified IL type, unspecified artery Hypertension : How to [...] Treatment cardiovascular counseling Indication:Acute myocardial infarction, unspecified [place] type, unspecified artery Start:02-Aug-2017 Instruction Type:Provider Instructions [...] Treatment cardiovascular counseling Indication:Acute myocardial infarction, unspecified IL type, unspecified artery Start:02-Aug-2017 Instruction Type:Provider Instructions [...] Treatment cardiovascular counseling Indication:Acute myocardial infarction, unspecified IL type, unspecified artery Start:02-Aug-2017 Instruction Type:Provider Instructions [...] Treatment cardiovascular counseling Indication:Acute myocardial infarction, unspecified IL type, unspecified artery Start:02-Aug-2017 Instruction Type:Provider Instructions [...] Treatment cardiovascular counseling Indication:Acute myocardial infarction, unspecified IL type, unspecified artery Start:02-Aug-2017 Instruction Type:Provider Instructions [...] Treatment cardiovascular counseling Indication:Acute myocardial infarction, unspecified IL type, unspecified artery Start:02-Aug-2017 Instruction Type:Provider Instructions [...] Treatment cardiovascular counseling Indication:Acute myocardial infarction, unspecified [place] type, unspecified artery Start:02-Aug-2017 Instruction Type:Provider Instructions [...] Records Found Name Dates Details Immunization Registry [facility] - Effective on 03/01/2018. Expiration date unspecified Effective:01-Mar-2018 Name Dates Details Immunization Registry [facility] - Effective on 03/01/2018. Expiration date unspecified Effective:01-Mar-2018 Name Dates Details Immunization Registry [facility] - Effective on 03/01/2018. Expiration date unspecified Effective:01-Mar-2018 Name Dates Details Immunization Registry [facility] - Effective on 03/01/2018. Expiration date unspecified Effective:01-Mar-2018 Name Dates Details Immunization Registry [facility] - Effective on 03/01/2018. Expiration date unspecified Effective:01-Mar-2018 Name Dates Details Immunization Registry [facility] - Effective on 03/01/2018. Expiration date unspecified Effective:01-Mar-2018 Name Dates Details Immunization Registry [facility] - Effective on 03/01/2018. Expiration date unspecified Effective:01-Mar-2018 Name Dates Details Immunization Registry [facility] - Effective on 03/01/2018. Expiration date unspecified Effective:01-Mar-2018 Name Dates Details Immunization Registry [facility] - Effective on 03/01/2018. Expiration date unspecified Effective:01-Mar-2018 Name Dates Details Immunization Registry [facility] - Effective on 03/01/2018. Expiration date unspecified Effective:01-Mar-2018 Advance Directive Response Recorded Date/ Time Advance Directives Yes April 19, 2020 11:46am Living Will Yes April 19 11:46am Power of Barrel Coater Yes April 19, 2020 11:46am Advance Directive Response Recorded Date/ Time Name of Medical Power of Barrel Coater MIGUEL VARGAS November 27, 2021 9:39am Advance Directives Yes April 19, 2020 11:46am Living Will Yes November 27, 2021 9:39am Power of Barrel Coater Yes November 9:39am Advance Directive Response Recorded Date/ Time Name of Medical Power of Barrel Coater MONTEZ Wilson, MIGUEL November 27, 2021 9:39am Advance Directives Yes April 19, 2020 11:46am Living Will No December 04, 2021 4:52pm Power of Barrel Coater No November 4:52pm Advance Directive Response Recorded Date/ Time Name of Medical Power of Barrel Coater MONTEZ WANG, SON November 27, 2021 9:39am Name of Medical Power of Barrel Coater Montez Wang and Leon Wang December 04, 2021 8:37pm Advance Directives Yes April 19, 2020 11:46am Living Will Yes December 04, 2021 8:37pm Power of Barrel Coater Yes November 8:37pm Advance Directive Response Recorded Date/ Time Advance Directives Yes April 19, 2020 10:46am Living Will Yes December 04, 2021 7:37pm Power of Barrel Coater Yes November 7:37pm Advance Directive Response Recorded Date/ Time Advance Directives Yes April 19, 2020 11:46am Living Will Yes December 04, 2021 8:37pm Power of Barrel Coater Yes November 8:37pm Advance Directive Response Recorded Date/ Time Name of Medical Power of Barrel Coater Oumar Parker - son July 24, 2022 11:35am Advance Directives Yes April 19, 2020 11:46am Living Will Yes July 24, 2022 11 :35am Power of Barrel Coater Yes July 24, 2022 11:35am Advance Directive Response Recorded Date/ Time Advance Directives Yes April 19, 2020 11:46am Living Will Yes July 24, 2022 11 :35am Power of Barrel Coater Yes July 24, 2022 11:35am Advance Directive Response Recorded Date/ Time Advance Directives Yes April 19, 2020 10:46am Living Will Yes July 24, 2022 10 :35am Power of Barrel Coater Yes July 24, 2022 10:35am Advance Directive Response Recorded Date/ Time Living Will Yes October 11, 2023 1:12pm Do you have a Healthcare Power of Barrel Coater? Yes October 11, 2023 1:12pm Advance Directives Yes April 19, 2020 11:46am Advance Directive Response Recorded Date/ Time Advance Directives Yes April 19, 2020 11:46am Advance Directive Response Recorded Date/ Time Advance Directives on File Yes July 182024 7:49am Living Will Yes August 08, 2024 7 :49am Do you have a Healthcare Power of Barrel Coater? Yes August 08, 2024 7:49am Name of Medical Power of Barrel Coater Oumar Wang August 08, 2024 7:49am Advance [...] artery stent placement Atherosclerotic heart disease of [place] coronary artery without angina pectoris Complete heart block Essential (primary) hypertension Paroxysmal atrial fibrillation Chief Complaint Admit Date 2 M FU February 11, 2024 1:39pm pain March 04, 2024 5:13pm Pacer Check Remote May 19, 2024 5:47 pm Reason for Visit Admit Date Dizziness February 11, 2024 1:39pm Atherosclerotic heart diseas e of [place] coronary artery without angina pectoris February 11, [...] permanent cardiac pacemaker July 29, 2024 12:52pm watermaster current use of anticoagulant t herapy July 29, 2024 12:53pm Atherosclerotic heart diseas e of [place] coronary artery without angina pectoris July 29, [...] @ 1 July 29, 2024 12:53 pm #[id number] for Normal battery depletion with Dr. Morocho August 08, 2024 7:25am 1 wk s/p PPM generator change f/u August 142024 12:58pm Reason for Visit Admit Date Complete heart block July 29, 2024 12:5 2pm Paroxysmal atrial fibrillation July 29, 2024 12:52pm Presence of permanent cardiac pacemaker July 29, 2024 12:52pm longterm current use of anticoagulant t herapy July 29, 2024 12:53pm Atherosclerotic heart diseas e of [place] coronary artery without angina pectoris July 29, [...] @ 1 July 29, 2024 12:53 pm #[id number] for Normal battery depletion with Dr. Morocho August 08, 2024 7:25am Pacer Check Remote August 14, 2024 9:00a m 1 wk s/p PPM generator change f/u August 142024 12:58pm Chief Complaint Admit Date Pacer Check Remote July 29, 2024 9:00a m Annual In-Clinic Check/Sees MH @ 1:30 Ma y 2024 12:52pm 1 Y FU/Sees Jade @ 1 July 29, 2024 12:53 pm #[id number] for Normal battery depletion with Dr. Morocho August 08, 2024 7:25am Pacer Check Remote August 14, 2024 9:00a m 1 wk s/p PPM generator change f/u August 142024 12:58pm Chief Complaint Admit Date Pacer Check Remote July 29, 2024 9:00a m Annual In-Clinic Check/Sees MH @ 1:30 Ma y 2024 12:52pm 1 Y FU/Sees Jade @ 1 July 29, 2024 12:53 pm #[id number] for Normal battery depletion with Dr. Morocho [...] @ 1 July 29, 2024 12:53 pm #[id number] for Normal battery depletion with Dr. Morocho [...] DATE CREATED AUTHOR AUTHOR'S ORGANIZ ATION 04/27/2021 [facility] DATE CREATED AUTHOR AUTHOR'S ORGANIZ ATION 11/16/2024 [facility] Goals (unrecognized section and content) Goals may [...] BE BASED ON THE PRIMARY CLINICAL RECORDS. [facility]. provides no warranty or guarantee of the accuracy or completeness of information in this document.
[2024-11-17] MEDS: 0.9% Normal Saline (1000mL) 1,000 ML 70 ML IV (00:03)
[2024-11-17 00:11] LABS: Magnesium 1.7 mg/dL (1.5-2.2)
[2024-11-17 00:20] LABS: Vitamin B12 398 pg/mL (180-914)
[2024-11-17 00:51] LABS: FOLATES,SERUM (FOLIC ACID) 13.60 ng/mL (4.60-34.80)
[2024-11-17 00:56] LABS: Troponin T High Sens 2 HR 19 ng/L (<=14)
[2024-11-17] MEDS: MELATONIN 3 MG TABLET PO (02:43)
[2024-11-17 02:50] VITALS: BP 134/64; PULSE 60; RESP 16; TEMP 36.6; O2SAT 98
[2024-11-17 06:00] VITALS: BMI 22.5
[2024-11-17 06:32] LABS: Hematocrit 31.9 % (37-47); Hemoglobin 10.8 g/dL (12.0-15.0); Immature Granulocytes Count 0.010 X10^3/uL (0.0-0.0); Mean Corp Hgb Conc 33.9 g/dL (32-36); Mean Corpuscular Volume 91.1 fL (81-99); Mean Platelet Vol. 9.3 fl (6.2-12.0); NRBC Flagged by Analyzer 0 % (0-5); Platelet Count 198 K/mm3 (150-450); RBC Distribution Width CV 13.3 % (11.6-14.6); RBC Distribution Width SD 43.8 fl (35.1-43.9); Red Blood Count 3.50 M/mm3 (4.2-5.4); White Blood Count 8.0 K/mm3 (4.4-11.0)
[2024-11-17 06:57] LABS: AST(SGOT) 83 U/L (<=31); Alanine Aminotransfer ALT/SGPT 88 U/L (<=34); Albumin, Serum 3.5 g/dL (3.4-4.8); Alkaline Phosphatase 85 U/L (35-104); Anion Gap 12 (5-15); BUN 14 mg/dL (4-19); BUN/Creat Ratio 10.3 RATIO (10-20); Calcium,Total 8.7 mg/dL (7.6-11.0); Carbon Dioxide 20.5 mmol/L (21.0-32.0); Chloride 104 mmol/L (98-108); Estimated Creatinine Clearance 25.17 ml/min (50-250); Globulin 2.3 g/dL (2.2-4.2); Glucose 84 mg/dL (70-99); Potassium 3.2 mmol/L (3.3-5.1)
[2024-11-17 07:58] VITALS: BP 114/63; PULSE 59; RESP 18; TEMP 36.3; O2SAT 100
[2024-11-17] MEDS: Vitamin B Comp W-C Capsule 1 CAP PO (09:54)
[2024-11-17] MEDS: APIXABAN 5 MG TABLET PO ×2 (09:55→20:50)
[2024-11-17] MEDS: Magnesium Chloride 64 MG Delay Rel.Tablet 128 MG PO (09:56)
[2024-11-17] MEDS: Multivitamin (Healthy Eyes) Capsule 1 CAP PO ×2 (09:56→20:50)
[2024-11-17] MEDS: Cholecalciferol (Vit D3) 125 MCG CAPSULE (5,000 UNITS) PO (09:58)
[2024-11-17 13:18] VITALS: BP 94/45; PULSE 60; RESP 16; TEMP 37.2; O2SAT 94
--- NOTE | 2024-11-17 16:00 | PN_ITS ---
Subjective Subjective Patient seen and examined. She had no active complaints. She was admitted with dizziness and syncope. SHe had not been eating and drinking well and complained of abdominal pain. Before admission on the day of admission. She said he had been having intermittent diarrhea and constipation. She also had bowel movements the day of and the day before admission. She was walking around in her home on the day of admission and had a syncopal event. CT of the brain showed no acute intracranial pathology. She denies any lightheadedness, palpitations, chest pain, abdominal pain, nausea or vomiting or any other symptoms. Review of system is otherwise negative. Of note, she also complained that she was having dark stools though they were now brown. Objective Data Objective Data Vital Signs: Vital Signs Temp Pulse Resp BP Pulse Ox O2 Del Method 99 F 60 16 94/45 L 94 Room Air 11/17/24 13:18 11/17/24 13:18 11/17/24 13:18 11/17/24 13:18 11/17/24 13:18 11/17/24 13:18 Oxygen Delivery Method Room Air Weight: 126 lb 15.78 oz Body Mass Index (BMI) 21.8 Intake & Output: Intake and Output for Last 24 Hours 11/15/24 11/16/24 11/17/24 23:59 23:59 23:59 Intake Total 1100 / 1100 1250 / 1250 Output Total 400 / 400 Balance 1100 / 1100 850 / 850 Medical Nutrition Assessment Dietitian: Malnutrition Criteria Met Start: 11/17/24 14:53 Freq: Status: Active Protocol: Document 11/17/24 14:53 RMA (Rec: 11/17/24 14:53 RMA [id number]) Nutrition Malnutrition Evidence of Yes Malnutrition Exists Malnutrition (severe Chronic ): Evidenced By Suboptimal Energy Intake (Severe),Weight Loss (Severe) Clinical Problem Chronic Disease or Condition Related Malnutrition Etiology severe protein-calorie malnutrition in the context of chronic disease and debility related to inadequate energy intake Signs/Symptoms as evidenced by ~9% unintentional weight loss x past 3- 4 months; BMI 21.8; PO meeting less than 75% estimated nutrition needs x past 3 months Status Active Problem Recommendation Dietitian Will liberalize diet to Regular. Recommendations/ Will d/c ensure plus HP w/ medpass and add 240mL ensure Changes plus HP with breakfast tray. Will add magic cup w/ lunch and dinner tray as tolerated. Trend weights as able and adjust ONS to support weight stability. Lab / Micro Data 11/17/24 06:15 11/17/24 06:15 Labs: Laboratory Results - last 24 hr 11/16/24 18:00: WBC 10.0, RBC 3.72 L, Hgb 11.6 L, Hct 33.4 L, MCV 89.8, MCH 31.2, MCHC 34.7, RDW Std Deviation 42.7, RDW Coeff of Guy 13.1, Plt Count 228, MPV 9.5, Immature Gran % (Auto) 0.500, Neut % (Auto) 85.8 H, Lymph % (Auto) 7.1 L, Coffee % (Auto) 6.4, Eos % (Auto) 0.0, Baso % (Auto) 0.2, Absolute Neuts (auto) 8.6 H, Absolute Lymphs (auto) 0.71 L, Nucleated RBC % 0, Sodium 134, Potassium 3.7, Chloride 99, Carbon Dioxide 19.1 L, Anion Gap 15, BUN 19, Creatinine 1.62 H , Estim Creat Clear Calc 19.84 L, Est GFR (MDRD) Non-Af 31 L, BUN/Creatinine Ratio 11.6, Glucose 105 H, Calcium 9.2, Magnesium Cancelled, Total Bilirubin 0.78, AST 101 H, ALT 96 H, Alkaline Phosphatase 96, Troponin T High Sens 19 H, Total Protein 6.6, Albumin 3.9, Globulin 2.7, Albumin/Globulin Ratio 1.5, Amylase 32, Lipase 53, Serum Folate 13.60, TSH Cancelled 11/16/24 19:05: Urine Color Yellow, Urine Clarity Clear, Urine pH 7.0, Ur Specific [place] 1.005, Urine Protein 30 H, Urine Glucose (UA) Normal, Urine Ketones 5 H, Urine Occult Blood 10 H, Urine Nitrite Negative, Urine Bilirubin Negative, Urine Urobilinogen Normal, Ur Leukocyte Esterase 100 H, Urine RBC 0-5 SEEN, Urine WBC 0-5 SEEN, Ur Squamous Epith Cells 0-5 SEEN, Urine Bacteria RARE, Urine Mucus 0 SEEN 11/16/24 20:05: Magnesium 1.7, Troponin T Hi Sens 2 Hr 19 H, Vitamin B12 398, TSH 1.010 11/17/24 06:15: WBC 8.0, RBC 3.50 L, Hgb 10.8 L, Hct 31.9 L, MCV 91.1, MCH 30.9, MCHC 33.9, RDW Std Deviation 43.8, RDW Coeff of Guy 13.3, Plt Count 198, MPV 9.3, Immature Gran % (Auto) 0.100, Neut % (Auto) 79.5 H, Lymph % (Auto) 11.4 L, Coffee % (Auto) 8.6, Eos % (Auto) 0.0, Baso % (Auto) 0.4, Absolute Neuts (auto) 6.4, Absolute Lymphs (auto) 0.91, Nucleated RBC % 0, Sodium 137, Potassium 3.2 L , Chloride 104, Carbon Dioxide 20.5 L, Anion Gap 12, BUN 14, Creatinine 1.36 H, Estim Creat Clear Calc 25.17 L, Est GFR (MDRD) Non-Af 38 L, BUN/Creatinine Ratio 10.3, Glucose 84, Calcium 8.7, Phosphorus 3.1, Total Bilirubin 0.52, AST 83 H, A LT 88 H, Alkaline Phosphatase 85, Total Protein 5.8 L, Albumin 3.5, Globulin 2.3, Albumin/Globulin Ratio 1.5 Radiography Diagnostic Testing: Radiology Impression Brain CT 11/16/24 17:42 IMPRESSION: 1. No evidence of intracranial hemorrhage or acute ischemia. 2. Changes of chronic microvascular ischemia and volume loss. Reading Location: [id number] Cervical Spine CT 11/16/24 17:42 IMPRESSION: No fracture. Multilevel degenerative changes. Reading Location: [id number] Abdomen/Pelvis CT 11/16/24 17:43 IMPRESSION: 1. No acute abnormality. 2. Small sliding hiatus hernia. 3. 7 mm hypodensity right hepatic lobe is new and nonspecific. Mild intrahepatic duct dilation similar to prior exam. Correlate with laboratory values. If desired, nonemergent MRI of the liver could be performed to fully characterize the lesion. 4. Advanced atherosclerosis without aneurysm. 5. Hysterectomy Reading Location: [facility] Chest X-Ray 11/16/24 18:35 IMPRESSION: No acute cardiopulmonary process. Coronary artery atherosclerosis. Pacemaker in place. Reading Location: [facility] Echocardiogram 11/16/24 22:43 Interpretation Summary The estimated ejection fraction is 55???60 %. Normal LV systolic function Mild MR Mild TR In comparison to previous echocardiogram no significant change. Ordering Physician: Randall Eid Performed By: Jesus Manuel Tovar RCS Rhythm Strip Rhythm Strip: Paced Rate: 60 Ectopy: None Physical Exam Const alert, oriented x3 and no apparent distress Constitutional Narrative: frail General Appearance: cooperative HEENT normocephalic, head/scalp atraumatic, moist oral mucous membranes and oropharynx normal Neck no lymphadenopathy and supple Lymph Lymphatic: no lymphedema noted Resp normal respiratory effort, normal air movement and clear to auscultation bilaterally Cardio regular rate, regular rhythm, S1 normal heart sound, S2 normal heart sound and no murmurs GI normal to inspection, nondistended, normoactive bowel sounds, soft to palpation, non-tender and non-distended Extremity normal capillary refill, no clubbing, cyanosis or edema and no calf tenderness General Extremity: no tenderness to palpation of joints or extremities Skin General Skin Exam: no breakdown Neuro CN's II-XII intact bilaterally, no focal motor deficits, no sensory deficits noted and deep tendon reflexes 2+ bilaterally Motor Exam: strength 5/5 throughout and general weakness Psych thought process normal, cooperative and affect normal Appearance: appropriate Assessment & Plan Assessment/Plan (1) Abdominal pain: QUALIFIERS: Abdominal location: generalized Qualified Code(s): R 10.84 - Generalized abdominal pain (2) Diarrhea: QUALIFIERS: Diarrhea type: presumed infectious Qualified Code(s): R19.7 - Diarrhea, unspecified (3) Frequent falls: (4) Syncope and collapse: PLAN: Plan #Syncope and collapse likely due to dehydration from diarrhea * had been having several episodes of diarrhea. * had had several episodes of diarrhea prior to admission. * 2D echo showed EF of 55-60% and normal LV systolic function. * being hydrated with IVF NS @ 125cc/hr * BP running low in the 90s systolic * carotid duplex pending * * #Diarrhea: complaining of diarrhea which had been going on for several days. Stool enteric panel pending. Continue hydrating with IVF. If enteric panel and Cdiff negative, will start loperamide. #Debility and weakness * This is chronic. Has known ambulatory dysfunction in the setting of osteoarthritis with previous back surgery. PT OT on board. Fall precautions. #Paroxysmal A-fib: On amiodarone and Eliquis. She says has been having dark stools. Will therefore check stool for occult blood. #Benign essential hypertension: On amlodipine. Will hold as blood pressure is running low. Hypothyroidism: On Synthroid #S/p stents in 2018: Stable. #History of sick sinus syndrome s/p pacemaker: Stable. #GERD: On PPI DVT prophylaxis: on eliquis. # Charges/Coding Visit Charges Inpatient E&M: 80719 Subs Hosp L2
[2024-11-17 16:48] VITALS: BP 111/50; PULSE 62; RESP 14; TEMP 36; O2SAT 99
--- NOTE | 2024-11-17 20:44 | PCM.PN.HOSP ---
Reason for Visit Chief Complaint: Syncope and Abdominal Pain. Subjective Subjective Nursing called with concerns regarding clarification of IVF orders. Per nursing, pt has not had a liquid or formed BM since arrival to unit. IVF completed at 1300 today following infusion of 2ltr total. Last BP 125/57, paced rhythm. Adequate oral fluid intake reported, with addition/adjustment of nutritional supplement per broadcast meteorologist evaluation today. Objective Data Objective Data Vital Signs: Vital Signs Temp Pulse Resp BP Pulse Ox O2 Del Method 96.8 F L 62 14 111/50 L 99 Room Air 11/17/24 16:48 11/17/24 16:48 11/17/24 16:48 11/17/24 16:48 11/17/24 16:48 11/17/24 16:48 Oxygen Delivery Method Room Air Weight: 126 lb 15.78 oz Body Mass Index (BMI) 22.5 Intake & Output: Intake and Output for Last 24 Hours 11/15/24 11/16/24 11/17/24 23:59 23:59 23:59 Intake Total 1100 / 1100 1650 / 1650 Output Total 600 / 600 Balance 1100 / 1100 1050 / 1050 Medical Nutrition Assessment Dietitian: Malnutrition Criteria Met Start: 11/17/24 14:53 Freq: Status: Active Protocol: Document 11/17/24 14:53 RMA (Rec: 11/17/24 14:53 RMA [id number]) Nutrition Malnutrition Evidence of Yes Malnutrition Exists Malnutrition (severe Chronic ): Evidenced By Suboptimal Energy Intake (Severe),Weight Loss (Severe) Clinical Problem Chronic Disease or Condition Related Malnutrition Etiology severe protein-calorie malnutrition in the context of chronic disease and debility related to inadequate energy intake Signs/Symptoms as evidenced by ~9% unintentional weight loss x past 3- 4 months; BMI 21.8; PO meeting less than 75% estimated nutrition needs x past 3 months Status Active Problem Recommendation Dietitian Will liberalize diet to Regular. Recommendations/ Will d/c ensure plus HP w/ medpass and add 240mL ensure Changes plus HP with breakfast tray. Will add magic cup w/ lunch and dinner tray as tolerated. Trend weights as able and adjust ONS to support weight stability. Lab / Micro Data Attestation: I reviewed the patient's lab results. 11/17/24 06:15 11/17/24 06:15 Labs: Laboratory Results - last 24 hr 11/16/24 18:00: Magnesium Cancelled, Serum Folate 13.60, TSH Cancelled 11/16/24 20:05: Magnesium 1.7, Troponin T Hi Sens 2 Hr 19 H, Vitamin B12 398, TSH 1.010 11/17/24 06:15: WBC 8.0, RBC 3.50 L, Hgb 10.8 L, Hct 31.9 L, MCV 91.1, MCH 30.9, MCHC 33.9, RDW Std Deviation 43.8, RDW Coeff of Guy 13.3, Plt Count 198, MPV 9.3, Immature Gran % (Auto) 0.100, Neut % (Auto) 79.5 H, Lymph % (Auto) 11.4 L, [place] % (Auto) 8.6, Eos % (Auto) 0.0, Baso % (Auto) 0.4, Absolute Neuts (auto) 6.4, Absolute Lymphs (auto) 0.91, Nucleated RBC % 0, Sodium 137, Potassium 3.2 L, Chloride 104, Carbon Dioxide 20.5 L, Anion Gap 12, BUN 14, Creatinine 1.36 H, Estim Creat Clear Calc 25.17 L, Est GFR (MDRD) Non-Af 38 L, BUN/Creatinine Ratio 10.3, Glucose 84, Calcium 8.7, Phosphorus 3.1, Total Bilirubin 0.52, AST 83 H, ALT 88 H, Alkaline Phosphatase 85, Total Protein 5.8 L, Albumin 3.5, Globulin 2.3, Albumin/Globulin Ratio 1.5 Radiography Diagnostic Testing: Radiology Impression Echocardiogram 11/16/24 22:43 Interpretation Summary The estimated ejection fraction is 55???60 %. Normal LV systolic function Mild MR Mild TR In comparison to previous echocardiogram no significant change. Ordering Physician: Randall Eid Performed By: Jesus Manuel Tovar RCS Rhythm Strip Rhythm Strip: Paced Rate: 60 Assessment & Plan Assessment/Plan (1) Mild dehydration: PLAN: Plan Creatinine noted improving, adequate fluid intake reported per nursing. VSS. Hold IVF, re-evaluate need in AM. Potassium replacement of 40meq KCl oral ordered for 3.2 on this morning's chemistry, 9.1.25. Recheck potassium and magnesium levels in AM.
[2024-11-17 20:48] VITALS: BP 125/57; PULSE 60; RESP 18; TEMP 37.1; O2SAT 99
[2024-11-17] MEDS: Potassium Chloride Oral Tablet 20 MEQ 40 MEQ PO (22:34)
[2024-11-18 03:07] VITALS: BP 132/63; PULSE 60; RESP 18; TEMP 36.1; O2SAT 98
[2024-11-18 03:42] VITALS: BMI 22.5
[2024-11-18 03:55] LABS: Hematocrit 29.6 % (37-47); Hemoglobin 10.1 g/dL (12.0-15.0); Immature Granulocytes Count 0.030 X10^3/uL (0.0-0.0); Mean Corp Hgb Conc 34.1 g/dL (32-36); Mean Corpuscular Volume 93.1 fL (81-99); Mean Platelet Vol. 9.9 fl (6.2-12.0); NRBC Flagged by Analyzer 0 % (0-5); Platelet Count 204 K/mm3 (150-450); RBC Distribution Width CV 13.6 % (11.6-14.6); RBC Distribution Width SD 46.4 fl (35.1-43.9); Red Blood Count 3.18 M/mm3 (4.2-5.4); White Blood Count 9.4 K/mm3 (4.4-11.0)
[2024-11-18 04:54] LABS: Anion Gap 10 (5-15); BUN 18 mg/dL (4-19); BUN/Creat Ratio 13.3 RATIO (10-20); Calcium,Total 8.8 mg/dL (7.6-11.0); Carbon Dioxide 20.4 mmol/L (21.0-32.0); Chloride 106 mmol/L (98-108); Estimated Creatinine Clearance 24.98 ml/min (50-250); Glucose 93 mg/dL (70-99); Magnesium 1.8 mg/dL (1.5-2.2); Potassium 3.6 mmol/L (3.3-5.1)
[2024-11-18 08:04] VITALS: BP 110/85; PULSE 65; RESP 16; TEMP 36.6; O2SAT 100
[2024-11-18] MEDS: Vitamin B Comp W-C Capsule 1 CAP PO (09:46)
[2024-11-18] MEDS: APIXABAN 5 MG TABLET PO ×2 (09:46)
[2024-11-18] MEDS: Magnesium Chloride 64 MG Delay Rel.Tablet 128 MG PO (09:47)
[2024-11-18] MEDS: Multivitamin (Healthy Eyes) Capsule 1 CAP PO ×2 (09:47→20:46)
[2024-11-18] MEDS: Cholecalciferol (Vit D3) 125 MCG CAPSULE (5,000 UNITS) PO (09:48)
[2024-11-18] MEDS: Fluticasone 0.05% 1 SPRAY NASAL.SRY NASAL (09:51)
[2024-11-18 10:15] VITALS: O2SAT 93
--- NOTE | 2024-11-18 11:26 | PN_ITS ---
Subjective Subjective Patient seen and examined. She had no active complaints today. She had just had her echo done. I saw her with her nurse by her bedside. She feels much better and her lightheadedness and dizziness have resolved. Review systems otherwise negative. Objective Data Objective Data Vital Signs: Vital Signs Temp Pulse Resp BP Pulse Ox O2 Del Method 97.9 F 65 16 110/85 H 93 Room Air 11/18/24 08:04 11/18/24 08:04 11/18/24 08:04 11/18/24 08:04 11/18/24 10:15 11/18/24 10:15 Oxygen Delivery Method Room Air Weight: 131 lb 2.801 oz Body Mass Index (BMI) 22.5 Intake & Output: Intake and Output for Last 24 Hours 11/16/24 11/17/24 11/18/24 23:59 23:59 23:59 Intake Total 1100 / 1100 1650 / 1650 Output Total 650 / 650 250 / 250 Balance 1100 / 1100 1000 / 1000 -250 / -250 Medical Nutrition Assessment Dietitian: Malnutrition Criteria Met Start: 11/17/24 14:53 Freq: Status: Active Protocol: Document 11/17/24 14:53 RMA (Rec: 11/17/24 14:53 RMA [id number]) Nutrition Malnutrition Evidence of Yes Malnutrition Exists Malnutrition (severe Chronic ): Evidenced By Suboptimal Energy Intake (Severe),Weight Loss (Severe) Clinical Problem Chronic Disease or Condition Related Malnutrition Etiology severe protein-calorie malnutrition in the context of chronic disease and debility related to inadequate energy intake Signs/Symptoms as evidenced by ~9% unintentional weight loss x past 3- 4 months; BMI 21.8; PO meeting less than 75% estimated nutrition needs x past 3 months Status Active Problem Recommendation Dietitian Will liberalize diet to Regular. Recommendations/ Will d/c ensure plus HP w/ medpass and add 240mL ensure Changes plus HP with breakfast tray. Will add magic cup w/ lunch and dinner tray as tolerated. Trend weights as able and adjust ONS to support weight stability. Lab / Micro Data 11/18/24 03:15 11/18/24 03:15 Labs: Laboratory Results - last 24 hr 11/18/24 03:15: WBC 9.4, RBC 3.18 L, Hgb 10.1 L, Hct 29.6 L, MCV 93.1, MCH 31.8, MCHC 34.1, RDW Std Deviation 46.4 H, RDW Coeff of Guy 13.6, Plt Count 204, MPV 9.9, Immature Gran % (Auto) 0.300, Neut % (Auto) 74.1 H, Lymph % (Auto) 13.4 L, [place] % (Auto) 7.8, Eos % (Auto) 4.0, Baso % (Auto) 0.4, Absolute Neuts (auto) 7.0, Absolute Lymphs (auto) 1.26, Nucleated RBC % 0, Sodium 136, Potassium 3.6, Chloride 106, Carbon Dioxide 20.4 L, Anion Gap 10, BUN 18, Creatinine 1.37 H, E stim Creat Clear Calc 24.98 L, Est GFR (MDRD) Non-Af 37 L, BUN/Creatinine Ratio 13.3, Glucose 93, Calcium 8.8, Phosphorus 2.8, Magnesium 1.8 Radiography Diagnostic Testing: Radiology Impression Echocardiogram 11/16/24 22:43 Interpretation Summary The estimated ejection fraction is 55???60 %. Normal LV systolic function Mild MR Mild TR In comparison to previous echocardiogram no significant change. Ordering Physician: Randall Eid Performed By: Jesus Manuel Tovar RCS Rhythm Strip Rhythm Strip: Paced Rate: 60 Ectopy: None Physical Exam Const alert, oriented x3, no apparent distress and well nourished General Appearance: cooperative HEENT normocephalic, head/scalp atraumatic, moist oral mucous membranes and oropharynx normal Eyes PERRL Neck supple and no JVD Lymph Lymphatic: no lymphedema noted Resp normal respiratory effort, normal air movement and clear to auscultation bilaterally Cardio regular rate, regular rhythm, S1 normal heart sound, S2 normal heart sound and no murmurs GI normal to inspection, nondistended, normoactive bowel sounds, soft to palpation, non-tender and non-distended Extremity normal capillary refill, no clubbing, cyanosis or edema and no calf tenderness General Extremity: no tenderness to palpation of joints or extremities Skin General Skin Exam: no breakdown Neuro no focal motor deficits and no sensory deficits noted Motor Exam: general weakness Psych thought process normal, cooperative and affect normal Assessment & Plan Assessment/Plan (1) Frequent falls: (2) Syncope and collapse: (3) Diarrhea: QUALIFIERS: Diarrhea type: presumed infectious Qualified Code(s): R19.7 - Diarrhea, unspecified PLAN: Plan #Syncope and collapse likely due to dehydration from diarrhea * diarrhea has improved. * had had several episodes of diarrhea prior to admission. * 2D echo showed EF of 55-60% and normal LV systolic function. * being hydrated with IVF NS @ 125cc/hr * BP running low in the 90s systolic * carotid duplex done and results pending. * #Diarrhea: diarrhea largely resolved. Stool for occult blood pending, though Hb has remained stable at 10/ #Debility and weakness * This is chronic. Has known ambulatory dysfunction in the setting of osteoarthritis with previous back surgery. PT OT on board. Fall precautions. * #Paroxysmal A-fib: On amiodarone and Eliquis. She says has been having dark stools. Will therefore check stool for occult blood. #Benign essential hypertension: On amlodipine. Will hold as blood pressure is running low. Hypothyroidism: On Synthroid #S/p stents in 2018: Stable. #History of sick sinus syndrome s/p pacemaker: Stable. #GERD: On PPI DVT prophylaxis: on eliquis. Disposition: * Patient states that she would not want to send her to rehab in a usp. * Patient is adamant that she does not want to go to either. * Case management on board to help with disposition on discharge. Charges/Coding Visit Charges Inpatient E&M: 62917 Subs Hosp L2
[2024-11-18 12:36] VITALS: BP 115/54; PULSE 60; RESP 16; TEMP 36.9; O2SAT 99
--- NOTE | 2024-11-18 14:30 | CASEMGMT ---
Addendum entered by Claire Patten 11/18/24 16:08: JO VARELA received update from [facility] and they are able to accept patient. JO VARELA to update discharge plan. Original Note: JO VARELA Face to Face with patient for initial transition planning/care coordination assessment. JO VARELA introduced self and role at [facility]. Patient lying in bed, alert and oriented. Patient willing to participate in assessment and is able to answer all questions appropriately. Care providers, pharmacy, and demographics verified. Strata: 3 PCP: [facility] Specialists: Wyatt, vascular; Estela, security guards dispatcher; Elroy, internal revenue agent Preferred Pharmacy: [facility] Insurance: [facility] Prescription Benefit: yes Living Will/HPOA: yes, sons LNOK: sons, granddaughter Living Arrangements: Patient lives alone in a mobile home with 4 steps and railing to enter the home. Patient states he is independent at home. Patient states she hires aides to assist her with shopping, cleaning, and transportation. Transportation: Friend, neighbor DME/HHC: Patient has shower chair, raised toilet, cane, walker at home. Patient has had HHC with [facility] in the past. No previous SNF. JO VARELA reviewed therapy notes, patient ambulated 60ft contact guard and completed steps, HHC recommended at discharge. Patient wishes to discharge home and would like [facility] at discharge, declined list. JO VARELA updated patient that message was received from son Linden to discuss discharge planning. Patient states she is mad at her son because he wants her to go to SNF at discharge. Patient gave permission for JO VARELA to call son and update regarding discharge plan. Patient states she has no further needs or concerns at this time. JO VARELA called son Linden to discuss discharge plan as developed with patient. Linden added patient's granddaughter Evonne to call. JO VARELA explained progress with therapy and recommendations for HHC and that patient prefers [facility]. JO VARELA explained that patient would be setup with intermediate, therapy, and SW. Linden and Evonne voiced concern for patient going home and would prefer patient to go to rehab. JO VARELA explained that patient is alert and oriented and able to make her own decision and that patient wishes to return home with [facility]. JO VARELA encouraged family to discuss assisted living in the future with patient and to attend follow-up appts with PCP. Linden and Evonne voiced understanding and had no further questions. Referral sent to [facility], awaiting response. CM will continue to follow this patient and plan for a safe discharge. Disposition Plan: Patient to discharge home with C, support from aides and neighbors, and follow-up plans in place. Claire GUEVARA, RN, CM
--- NOTE | 2024-11-18 16:31 | CHAPLAIN ---
Type of Pastoral Visit _x__ Initial Visit ___ Follow-up Visit ___ On-call Visit ___ General Patient Visit ___ Spiritual Assessment ___ Family Conference ___ Bereavement ___ Rapid Response ___ Code Blue ___ Other (describe below) Pastoral Care Referral From _x__ Patient ___ Family ___ Nurse ___ Physician ___ Gimp Tacker ___ Fast Food Crew Member ___ Other (describe below) Sacrament/Intervention _x__ Active listening ___ Anointing ___ Yarsani ___ Bereavement ___ Communion ___ Haleigh exploration ___ _x__ Life review _x__ Prayer ___ Reconciliation ___ Sacrament of Sick _x__ Supportive presence ___ Wedding ___ Other (describe below) Pastoral Comments patient is talkative and welcoming; pt explains her situation of being in the hospital, not sleeping well (mostly due to family disagreements), and her plan to return home; pt states that her one son in particular is demanding that she go to [place] or SNF but she will not because I don't need that yet and I have a great support system of neighbors and friends where I live who look out for each other; pt states that she is still capable of independence and will fight her sons on this; 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
[2024-11-18 18:04] VITALS: BP 121/70; PULSE 62; RESP 16; TEMP 36.2; O2SAT 100
[2024-11-18 20:44] VITALS: BP 145/70; PULSE 62; RESP 18; TEMP 36; O2SAT 100
[2024-11-19 03:07] VITALS: BP 130/56; PULSE 60; RESP 18; TEMP 36.4; O2SAT 98
[2024-11-19 03:39] VITALS: BMI 23.3
[2024-11-19 07:59] VITALS: BP 114/57; PULSE 62; RESP 14; TEMP 36.6; O2SAT 98
[2024-11-19 09:32] LABS: Hematocrit 31.3 % (37-47); Hemoglobin 10.5 g/dL (12.0-15.0); Immature Granulocytes Count 0.030 X10^3/uL (0.0-0.0); Mean Corp Hgb Conc 33.5 g/dL (32-36); Mean Corpuscular Volume 93.4 fL (81-99); Mean Platelet Vol. 9.7 fl (6.2-12.0); NRBC Flagged by Analyzer 0 % (0-5); Platelet Count 206 K/mm3 (150-450); RBC Distribution Width CV 13.9 % (11.6-14.6); RBC Distribution Width SD 47.7 fl (35.1-43.9); Red Blood Count 3.35 M/mm3 (4.2-5.4); White Blood Count 7.8 K/mm3 (4.4-11.0)
[2024-11-19] MEDS: APIXABAN 5 MG TABLET PO ×2 (10:33→21:35)
[2024-11-19] MEDS: Multivitamin (Healthy Eyes) Capsule 1 CAP PO ×2 (10:33→21:35)
[2024-11-19] MEDS: Cholecalciferol (Vit D3) 125 MCG CAPSULE (5,000 UNITS) PO (10:33)
[2024-11-19] MEDS: Fluticasone 0.05% 1 SPRAY NASAL.SRY NASAL (10:33)
[2024-11-19] MEDS: Magnesium Chloride 64 MG Delay Rel.Tablet 128 MG PO (10:34)
[2024-11-19] MEDS: Vitamin B Comp W-C Capsule 1 CAP PO (10:44)
[2024-11-19 10:47] LABS: Anion Gap 10 (5-15); Calcium,Total 9.2 mg/dL (7.6-11.0); Carbon Dioxide 21.9 mmol/L (21.0-32.0); Chloride 108 mmol/L (98-108); Estimated Creatinine Clearance 26.95 ml/min (50-250); Potassium 3.9 mmol/L (3.3-5.1)
[2024-11-19 10:58] LABS: BUN 19 mg/dL (4-19); BUN/Creat Ratio 14.9 RATIO (10-20); Glucose 90 mg/dL (70-99)
[2024-11-19 11:51] VITALS: BP 115/53; PULSE 59; RESP 14; TEMP 36.6; O2SAT 100
--- NOTE | 2024-11-19 14:22 | EX.PCM.CON.S ---
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: PLAN: -duplex reveals >70% stenosis; significant increase since prior duplex in 2022 -prior CTA with soft plaque, normal position of bifurcation -degree of stenosis meets threshold for treatment -discussed endarterectomy vs carotid stent risks/benefits/indications/alternatives; patient would prefer stent if candidate -will review images with [place] -ok to DC -will initiate dual antiplatelet and statin as outpatient prior to procedure if able to tolerate vs alternative agents HPI Consult Data Date of Consult: 11/19/24 HPI Narrative HPI Narrative: MICK CHINCHILLA, is a 89 F who presents with fall, dizziness. She has known carotid disease; prior left [facility] for retinal ischemia in 2022. She had been lost to follow up but at the time had moderate right ICA stenosis. Duplex during admission revealed >70% stenosis of right ICA, patent left ICA with no recurrent stenosis. She has CKD so no contrast based imaging was obtained. She denies numbness/weakness/vision loss/speech difficulty. Currently on Eliquis for a.fib, no current antiplatelet. [facility] Medical History ICD (implantable cardioverter-defibrillator) in place History of steroid therapy Vertigo Seasonal allergies Wears glasses Wears dentures Post-menopausal Depression Ambulates with cane Walker as ambulation aid Arthritis DVT (deep venous thrombosis) Easy bruising Excessive bleeding Restless legs History of ulceration Gastric reflux On home oxygen therapy Former smoker Chronic cough Leg cramps History of echocardiogram Cardiology follow-up encounter History of atrial fibrillation Atrial fibrillation with rapid ventricular response (01/21/20) Paroxysmal atrial fibrillation Paroxysmal atrial flutter Bilateral carotid artery stenosis Right bundle branch block (RBBB) with left anterior fascicular block Right pulmonary embolus (08/17/19) Lichen sclerosus Osteoarthritis Bone spur of foot Hypothyroidism COPD (chronic obstructive pulmonary disease) Ganglion cyst of left foot Essential (primary) hypertension Hyperlipidemia Complete heart block Sick sinus syndrome Diverticulosis GERD (gastroesophageal reflux disease) Anxiety Fatigue Dizziness and giddiness Intermittent chest pain Atherosclerotic heart disease of [place] coronary artery without angina pectoris Nonrheumatic mitral (valve) prolapse NSTEMI (non-ST elevated myocardial infarction) (05/30/17) Home Medications ?Medication ?Instructions ?Recorded ?Last Taken ?Type nitroglycerin 0.4 mg sublingual 0.4 mg sublingual Q5-15M PRN chest 08/03/18 Unknown Rx tablet pain #25 tabs vit C 250 mg-vit E 90 mg-zinc 40 1 cap PO BID eye health 12/04/21 12/03/21 History mg-copper 1 [id number] capsule (PreserVision AREDS-2) albuterol sulfate 90 mcg/actuation 2 puff inhalation Q4H PRN 06/19/23 Unknown History aerosol inhaler shortness of breath or wheezing cholecalciferol (vitamin D3) 125 125 mcg PO DAILY supplement 06/19/23 Unknown History mcg (5,000 unit) capsule fluticasone propionate 50 1 spray intranasal DAILY 06/19/23 Unknown History mcg/actuation nasal spray,suspension vitamin B complex 1 tab PO DAILY supplement 06/19/23 Unknown History amiodarone 200 mg tablet 200 mg PO DAILY heart #90 tabs 06/30/24 Unknown Rx omeprazole 40 mg capsule,delayed 40 mg PO QAM 07/29/24 Unknown History release apixaban 5 mg tablet 5 mg PO BID blood thinner #180 tabs 09/17/24 Unknown Rx amlodipine 10 mg tablet 10 mg PO DAILY 11/16/24 Unknown History levothyroxine 100 mcg tablet 100 mcg PO DAILY 11/16/24 Unknown History Allergy/AdvReac Type Severity Reaction Status Date / Time Penicillins (PCN) Allergy Hives Verified 07/29/24 13:27 aspirin AdvReac Severe Severe GI Verified 07/29/24 13:27 upset atorvastatin AdvReac Severe elevated Verified 07/29/24 13:27 liver enzymes metformin AdvReac gi upset Verified 07/29/24 13:27 Family History Father Cancer lung cancer Heart disease Mother CVA (cerebral vascular accident) Hypertension Sister Hypertension Cancer lung cancer Son Diabetes Hypertension Myocardial infarction, Onset Age: 48 Surgical History History of cardioversion (04/19/20) History of left heart catheterization (09/10/17) H/O excision of ganglion cyst History of back surgery History of hysterectomy History of carpal tunnel release H/O bladder repair surgery History of appendectomy Presence of permanent cardiac pacemaker (04/19/15) History of coronary artery stent placement (05/31/17) Social History Smoking Status: Former smoker alcohol intake: never substance use type: does not use caffeine: Yes Type: coffee Number of servings: 3 what type of physical activity do you participate in: none seatbelt use: always do you feel safe at home: Yes ROS Constitutional Constitutional: Denies chills, fever(s), frequent falls, lethargy or weakness Eyes Eyes: Denies blind spots, change in vision or loss of vision ENT HEENT: Denies bleeding gums, hoarseness or sore throat Cardiovascular Cardiovascular: Denies abdominal pain, bluish discoloration of hand/feet, chest pain with activity, claudication, cold extremities, cyanosis, dyspnea on exertion, erythema on extremities, irregular heart rhythm, leg edema, leg ulcers, numbness in extremities or weakness in extremities Respiratory/Chest Respiratory/Chest: Denies cough, excessive phlegm production, shortness of breath at rest, shortness of breath with exertion or wheezing Gastrointestinal Gastrointestinal: Reports constipation; Denies anorexia, change in stool character, diarrhea, melena or rectal bleeding Genitourinary Genitourinary: Denies dysuria or hematuria Musculoskeletal Musculoskeletal: Denies abnormal gait Integumentary Integumentary: Denies erythema, non-healing lesions or wounds Neurologic Neurologic: Denies abnormal speech, focal weakness, headache(s), loss of vision, numbness, paresthesias or sensory deficit Hematologic/Lymphatic Hematologic/Lymphatic: Denies easy bleeding, easy bruising or lymphadenopathy Physical Exam Const alert, oriented x3, no apparent distress and healthy appearing General Appearance: cooperative; Negative for combative or lethargic Orientation / Consciousness: awake Exam Limitations: no limitations HEENT Head and Scalp: normocephalic and atraumatic Eyes EOMs intact bilaterally General Eye: normal appearance of both eyes Neck full ROM General: trachea midline Resp normal respiratory effort and no use of accessory muscles Effort and Inspection: Negative for labored, stridor or audible wheezes Cardio regular rate and regular rhythm Peripheral Pulses: brachial pulses present and radial pulses present Back/Spine Cervical Spine: cervical ROM normal Extremity full ROM, normal capillary refill and no clubbing, cyanosis or edema Skin no rashes or lesions noted and no wounds Neuro oriented x3, CN's II-XII intact bilaterally, no focal motor deficits and no sensory deficits noted Psych thought process normal, cooperative, affect normal, speech normal and activity/motor behavior normal Medical Records Data Medical Nutrition Assessment Dietitian: Malnutrition Criteria Met Start: 11/17/24 14:53 Freq: Status: Active Protocol: Document 11/17/24 14:53 RMA (Rec: 11/17/24 14:53 RMA [id number]) Nutrition Malnutrition Evidence of Yes Malnutrition Exists Malnutrition (severe Chronic ): Evidenced By Suboptimal Energy Intake (Severe),Weight Loss (Severe) Clinical Problem Chronic Disease or Condition Related Malnutrition Etiology severe protein-calorie malnutrition in the context of chronic disease and debility related to inadequate energy intake Signs/Symptoms as evidenced by ~9% unintentional weight loss x past 3- 4 months; BMI 21.8; PO meeting less than 75% estimated nutrition needs x past 3 months Status Active Problem Recommendation Dietitian Will liberalize diet to Regular. Recommendations/ Will d/c ensure plus HP w/ medpass and add 240mL ensure Changes plus HP with breakfast tray. Will add magic cup w/ lunch and dinner tray as tolerated. Trend weights as able and adjust ONS to support weight stability. Lab / Micro Data 11/19/24 08:40 11/19/24 08:40 Labs: Laboratory Results - last 24 hr 11/19/24 08:40: WBC 7.8, RBC 3.35 L, Hgb 10.5 L, Hct 31.3 L, MCV 93.4, MCH 31.3, MCHC 33.5, RDW Std Deviation 47.7 H, RDW Coeff of Guy 13.9, Plt Count 206, MPV 9.7, Immature Gran % (Auto) 0.400, Neut % (Auto) 78.7 H, Lymph % (Auto) 11.8 L, [place] % (Auto) 7.7, Eos % (Auto) 0.9, Baso % (Auto) 0.5, Absolute Neuts (auto) 6.1, Absolute Lymphs (auto) 0.92, Nucleated RBC % 0, Sodium 139, Potassium 3.9, Chloride 108, Carbon Dioxide 21.9, Anion Gap 10, BUN 19, Creatinine 1.27 H, Estim Creat Clear Calc 26.95 L, Est GFR (MDRD) Non-Af 41 L, BUN/Creatinine Ratio 14.9, Glucose 90, Calcium 9.2 Rhythm Strip Rhythm Strip: Paced Rate: 60 Ectopy: None Imaging Radiology Impression Carotid Duplex 11/16/24 22:43 Interpretation Summary Severe (>70%) stenosis right extracranial internal carotid. Mild (<50%) stenosis left extracranial internal carotid. Flow within the vertebral arteries is antegrade bilaterally. Elevated velocities are noted in the right external carotid artery, indicative of stenosis >50%. Ordering Physician: Randall Eid Referring Physician: Jian Viveros Performed By: Estelita Yo RVT, RDCS and Student Charges/Coding Visit Charges Inpatient E&M: 17529 Init Hosp L2
--- NOTE | 2024-11-19 17:16 | DCINST_ITS ---
Discharge Instructions DC O2, CPAP, BIPAP needs Home O2 Discharge instructions: No Dressing / Incision Discharge Activity: Return to Normal Activity Weight Bearing Status: Weight bearing as tolerated Dressing / Incision Call your doctor if you observe: Fever of 101 or Higher, Shortness of breath, Dizziness, Swelling in the ankles and Chest pain Follow Up Care Test Results: Test results from this visit will be discussed in further detail at your follow- up appointment, if applicable. Discharge Plan Admission Admit Date/Time: 11/16/24 22:35 Primary Reason for Your Visit: carotid stenosis, syncope Attending Provider: Winnie Segundo Primary Care Provider: Jian Viveros Consulting Providers: Randall Eid; Dieter Johnson Instructions Patient Instructions: Diagnosing Syncope, Carotid Artery Disease Discharge Orders/Prescriptions Prescriptions: Continued vitamin B complex Tablet 1 tab PO DAILY albuterol sulfate 90 mcg/actuation HFA aerosol inhaler 2 puff inhalation Q4H PRN (Reason: shortness of breath or wheezing) fluticasone propionate 50 mcg/actuation spray,suspension 1 spray intranasal DAILY cholecalciferol (vitamin D3) 125 mcg (5,000 unit) capsule 125 mcg PO DAILY omeprazole 40 mg capsule,delayed release(DR/EC) 40 mg PO QAM PreserVision AREDS-2 250-90-40-1 mg Capsule 1 cap PO BID levothyroxine 100 mcg tablet 100 mcg PO DAILY amlodipine 10 mg tablet 10 mg PO DAILY nitroglycerin 0.4 mg tablet, sublingual 0.4 mg SUBLINGUAL Q5-15M PRN (Reason: chest pain) Qty: 25 3RF Rx Instructions: until response; do not exceed 3 doses per episode amiodarone 200 mg tablet 200 mg PO DAILY Qty: 90 3RF apixaban 5 mg tablet 5 mg PO BID Qty: 180 3RF Referrals / Follow Up: Dieter Johnson MD [Med Staff - Active Staff] - Within 2 Weeks Jian Viveros MD [Primary Care Provider] - Within 1 Week Disposition Disposition (needs filled in before D/C Order can be placed): Home Health Service
--- NOTE | 2024-11-19 17:17 | DS.PCM_ITS ---
Providers Date of Admission: 11/16/24 Date of Discharge: 11/19/24 Primary Care Physician: Dr. 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 * had had several episodes of diarrhea prior to admission. * 2D echo showed EF of 55-60% and normal LV systolic function. * being hydrated with IVF NS @ 125cc/hr * BP running low in the 90s systolic * carotid duplex done and results pending. * #Diarrhea: diarrhea largely resolved. Stool for occult blood pending, though Hb has remained stable at 10/ #Debility and weakness * This is chronic. Has known ambulatory dysfunction in the setting of osteoarthritis with previous back surgery. PT OT on board. Fall precautions. * #Paroxysmal A-fib: On amiodarone and Eliquis. She says has been having dark stools. Will therefore check stool for occult blood. #Benign essential hypertension: On amlodipine. Will hold as blood pressure is running low. Hypothyroidism: On Synthroid #S/p stents in 2018: Stable. #History of sick sinus syndrome s/p pacemaker: Stable. #GERD: On PPI DVT prophylaxis: on eliquis. Disposition: * Patient states that she would not want to send her to rehab in a prison. * Patient is adamant that she does not want to go to either. * Case management on board to help with disposition on discharge. Medications at Discharge Home Medications nitroglycerin 0.4 mg sublingual tablet 0.4 mg sublingual Q5-15M PRN chest pain #25 tabs 08/03/18 vit C 250 mg-vit E 90 mg-zinc 40 mg-copper 1 [id number] capsule (PreserVision AREDS-2) 1 cap PO BID eye health 12/04/21 albuterol sulfate 90 mcg/actuation aerosol inhaler 2 puff inhalation Q4H PRN shortness of breath or wheezing 06/19/23 cholecalciferol (vitamin D3) 125 mcg (5,000 unit) capsule 125 mcg PO DAILY supplement 06/19/23 fluticasone propionate 50 mcg/actuation nasal spray,suspension 1 spray intranasal DAILY 06/19/23 vitamin B complex 1 tab PO DAILY supplement 06/19/23 amiodarone 200 mg tablet 200 mg PO DAILY heart #90 tabs 06/30/24 omeprazole 40 mg capsule,delayed release 40 mg PO QAM 07/29/24 apixaban 5 mg tablet 5 mg PO BID blood thinner #180 tabs 09/17/24 amlodipine 10 mg tablet 10 mg PO DAILY 11/16/24 levothyroxine 100 mcg tablet 100 mcg PO DAILY 11/16/24 Medical Records Data Medical Nutrition Assessment Dietitian: Malnutrition Criteria Met Start: 11/17/24 14:53 Freq: Status: Active Protocol: Document 11/17/24 14:53 RMA (Rec: 11/17/24 14:53 RMA [id number]) Nutrition Malnutrition Evidence of Yes Malnutrition Exists Malnutrition (severe Chronic ): Evidenced By Suboptimal Energy Intake (Severe),Weight Loss (Severe) Clinical Problem Chronic Disease or Condition Related Malnutrition Etiology severe protein-calorie malnutrition in the context of chronic disease and debility related to inadequate energy intake Signs/Symptoms as evidenced by ~9% unintentional weight loss x past 3- 4 months; BMI 21.8; PO meeting less than 75% estimated nutrition needs x past 3 months Status Active Problem Recommendation Dietitian Will liberalize diet to Regular. Recommendations/ Will d/c ensure plus HP w/ medpass and add 240mL ensure Changes plus HP with breakfast tray. Will add magic cup w/ lunch and dinner tray as tolerated. Trend weights as able and adjust ONS to support weight stability. Weight / BMI Weight Weight: 135 lb 12.876 oz Body Mass Index (BMI) 23.3 ABG / Lab / Microbiology Data 11/19/24 08:40 11/19/24 08:40 Laboratory: Laboratory Results - last 24 hr 11/19/24 08:40: WBC 7.8, RBC 3.35 L, Hgb 10.5 L, Hct 31.3 L, MCV 93.4, MCH 31.3, MCHC 33.5, RDW Std Deviation 47.7 H, RDW Coeff of Guy 13.9, Plt Count 206, MPV 9.7, Immature Gran % (Auto) 0.400, Neut % (Auto) 78.7 H, Lymph % (Auto) 11.8 L, [place] % (Auto) 7.7, Eos % (Auto) 0.9, Baso % (Auto) 0.5, Absolute Neuts (auto) 6.1, Absolute Lymphs (auto) 0.92, Nucleated RBC % 0, Sodium 139, Potassium 3.9, Chloride 108, Carbon Dioxide 21.9, Anion Gap 10, BUN 19, Creatinine 1.27 H, E stim Creat Clear Calc 26.95 L, Est GFR (MDRD) Non-Af 41 L, BUN/Creatinine Ratio 14.9, Glucose 90, Calcium 9.2 Radiography Diagnostic Testing: Radiology Impression Carotid Duplex 11/16/24 22:43 Interpretation Summary Severe (>70%) stenosis right extracranial internal carotid. Mild (<50%) stenosis left extracranial internal carotid. Flow within the vertebral arteries is antegrade bilaterally. Elevated velocities are noted in the right external carotid artery, indicative of stenosis >50%. Ordering Physician: Randall Eid Referring Physician: Jian Viveros Performed By: Srinath ROSALES [facility] Estelita and Student D/C Instructions Weight Bearing Status: Weight bearing as tolerated Call your doctor if you observe: Fever of 101 or Higher, Shortness of breath, Dizziness, Swelling in the ankles and Chest pain DC O2, CPAP, BIPAP Needs Home O2 Discharge instructions: No Discharge Plan Admission Admit Date/Time: 11/16/24 22:35 Primary Reason for Your Visit: carotid stenosis, syncope Attending Provider: Winnie Segundo Primary Care Provider: Jian Viveros Consulting Providers: Randall Eid; Dieter Johnson Instructions Patient Instructions: Diagnosing Syncope, Carotid Artery Disease Discharge Orders/Prescriptions Prescriptions: Continued vitamin B complex Tablet 1 tab PO DAILY albuterol sulfate 90 mcg/actuation HFA aerosol inhaler 2 puff inhalation Q4H PRN (Reason: shortness of breath or wheezing) fluticasone propionate 50 mcg/actuation spray,suspension 1 spray intranasal DAILY cholecalciferol (vitamin D3) 125 mcg (5,000 unit) capsule 125 mcg PO DAILY omeprazole 40 mg capsule,delayed release(DR/EC) 40 mg PO QAM PreserVision AREDS-2 250-90-40-1 mg Capsule 1 cap PO BID levothyroxine 100 mcg tablet 100 mcg PO DAILY amlodipine 10 mg tablet 10 mg PO DAILY nitroglycerin 0.4 mg tablet, sublingual 0.4 mg SUBLINGUAL Q5-15M PRN (Reason: chest pain) Qty: 25 3RF Rx Instructions: until response; do not exceed 3 doses per episode amiodarone 200 mg tablet 200 mg PO DAILY Qty: 90 3RF apixaban 5 mg tablet 5 mg PO BID Qty: 180 3RF Referrals / Follow Up: Dieter Johnson MD [Med Staff - Active Staff] - Within 2 Weeks Jian Viveros MD [Primary Care Provider] - Within 1 Week Disposition Disposition (needs filled in before D/C Order can be placed): Home Health Service
--- NOTE | 2024-11-19 17:17 | PCM.DC.SUM ---
Providers Date of Admission: 11/16/24 Date of Discharge: 11/20/24 Primary Care Physician: Dr. 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 had had several episodes of diarrhea prior to admission. 2D echo showed EF of 55-60% and normal LV systolic function. being hydrated with IVF NS @ 125cc/hr BP running low in the 90s systolic carotid duplex done and results pending. #Diarrhea: diarrhea largely resolved. Stool for occult blood pending, though Hb has remained stable at 10/ #Debility and weakness This is chronic. Has known ambulatory dysfunction in the setting of osteoarthritis with previous back surgery. PT OT on board. Fall precautions. #Paroxysmal A-fib: On amiodarone and Eliquis. She says has been having dark stools. Will therefore check stool for occult blood. #Benign essential hypertension: On amlodipine. Will hold as blood pressure is running low. Hypothyroidism: On Synthroid #S/p stents in 2018: Stable. #History of sick sinus syndrome s/p pacemaker: Stable. #GERD: On PPI DVT prophylaxis: on eliquis. Disposition: Patient states that she would not want to send her to rehab in a custodial. Patient is adamant that she does not want to go to either. Case management on board to help with disposition on discharge. Medications at Discharge Home Medications nitroglycerin 0.4 mg sublingual tablet 0.4 mg sublingual Q5-15M PRN chest pain #25 tabs 08/03/18 vit C 250 mg-vit E 90 mg-zinc 40 mg-copper 1 [id number] capsule (PreserVision AREDS-2) 1 cap PO BID eye health 12/04/21 albuterol sulfate 90 mcg/actuation aerosol inhaler 2 puff inhalation Q4H PRN shortness of breath or wheezing 06/19/23 cholecalciferol (vitamin D3) 125 mcg (5,000 unit) capsule 125 mcg PO DAILY supplement 06/19/23 fluticasone propionate 50 mcg/actuation nasal spray,suspension 1 spray intranasal DAILY 06/19/23 vitamin B complex 1 tab PO DAILY supplement 06/19/23 amiodarone 200 mg tablet 200 mg PO DAILY heart #90 tabs 06/30/24 omeprazole 40 mg capsule,delayed release 40 mg PO QAM 07/29/24 apixaban 5 mg tablet 5 mg PO BID blood thinner #180 tabs 09/17/24 amlodipine 10 mg tablet 10 mg PO DAILY 11/16/24 levothyroxine 100 mcg tablet 100 mcg PO DAILY 11/16/24 Hospital Course Operations None Procedures None Summary of Care Provided Minutes Spent on Discharge: 45 Hospital Course: Patient is an 89-year-old female with past medical history as outlined was admitted to the ED on 11/16/2024 with complaint of syncope and abdominal pain. She had been having intermittent abdominal pain for several days prior to admission. She had had several bowel movements on the day of admission and stated while she was walking in her home that day, she had a syncopal event and woke up on the floor. She remembers hitting her head. She denied any blood in her stools. Review of systems otherwise negative. CT of the brain showed no evidence of acute ischemia or intracranial hemorrhage and she had chronic microvascular ischemia and volume loss. CT of the cervical spine without contrast showed multilevel degenerative changes in addition to the CT of the abdomen and pelvis without contrast that showed no acute intra-abdominal abnormality. Chest x-ray showed no acute cardiopulmonary pathology and showed a pacemaker in situ. She was admitted to be managed for syncope in light of dehydration from diarrhea. She was aggressively hydrated with IV fluids. 2D echo showed EF of 55 to 60% and normal ventricular systolic function. She did have a history of carotid stenosis and has had carotid endarterectomy on her left carotid. Carotid duplex was therefore ordered. PT OT was consulted. Stool for occult blood check was negative. The carotid duplex showed greater than 70% severe right extracranial internal carotid stenosis. Vascular surgery was consulted and recommended that patient follow-up on outpatient basis to be worked up for carotid stent or endarterectomy. Patient had listed allergies to aspirin and statins which could not be placed on any of these. She worked with physical therapy and did well and was deemed as being able to go home. Her family was wanting to go to a custodial but patient adamantly refused and says she had enough support from friends and neighbors). Patient was therefore discharged home on 11/20/2024. She is follow-up with her primary care doctor and follow-up with vascular surgeon outpatient basis within 1 to 2 weeks. Patient was seen and examined prior to discharge. She had no active complaints. Review of systems otherwise negative. Labs and vitals reviewed. Home medications reviewed and reconciled. Physical Exam Const alert, oriented x3, no apparent distress, average body habitus and well nourished Constitutional Narrative: frail General Appearance: cooperative and comfortable HEENT normocephalic, head/scalp atraumatic, hearing grossly normal bilaterally, moist oral mucous membranes and oropharynx normal Mouth: oral and palatal mucosa normal Eyes PERRL, EOMs intact bilaterally and conjunctivae normal Neck no lymphadenopathy, supple and no JVD Lymph Lymphatic: no lymphedema noted Resp normal respiratory effort, normal air movement and no retractions Cardio regular rate, regular rhythm, S1 normal heart sound, S2 normal heart sound and no murmurs GI normal to inspection, nondistended, normoactive bowel sounds, soft to palpation, non-tender and non-distended Extremity normal to inspection, full ROM, normal capillary refill, no clubbing, cyanosis or edema and no calf tenderness General Extremity: no tenderness to palpation of joints or extremities Skin no rashes or lesions noted General Skin Exam: no breakdown Neuro oriented x3, CN's II-XII intact bilaterally, moves all extremities, no focal motor deficits, no sensory deficits noted and deep tendon reflexes 2+ bilaterally Sensorium / Orientation: awake, alert, oriented to person, oriented to place and oriented to time Speech: speech normal Motor Exam: strength 5/5 throughout and general weakness Psych thought process normal, cooperative and affect normal Appearance: appropriate Medical Records Data Medical Nutrition Assessment Dietitian: Malnutrition Criteria Met Start: 11/17/24 14:53 Freq: Status: Active Protocol: Document 11/17/24 14:53 RMA (Rec: 11/17/24 14:53 RMA [id number]) Nutrition Malnutrition Evidence of Yes Malnutrition Exists Malnutrition (severe Chronic ): Evidenced By Suboptimal Energy Intake (Severe),Weight Loss (Severe) Clinical Problem Chronic Disease or Condition Related Malnutrition Etiology severe protein-calorie malnutrition in the context of chronic disease and debility related to inadequate energy intake Signs/Symptoms as evidenced by ~9% unintentional weight loss x past 3- 4 months; BMI 21.8; PO meeting less than 75% estimated nutrition needs x past 3 months Status Active Problem Recommendation Dietitian Will liberalize diet to Regular. Recommendations/ Will d/c ensure plus HP w/ medpass and add 240mL ensure Changes plus HP with breakfast tray. Will add magic cup w/ lunch and dinner tray as tolerated. Trend weights as able and adjust ONS to support weight stability. Weight / BMI Weight Weight: 125 lb 3.561 oz Body Mass Index (BMI) 21.4 ABG / Lab / Microbiology Data 11/20/24 05:31 11/20/24 05:31 Laboratory: Laboratory Results - last 24 hr 11/20/24 05:31: WBC 7.4, RBC 3.26 L, Hgb 10.0 L, Hct 30.4 L, MCV 93.3, MCH 30.7, MCHC 32.9, RDW Std Deviation 46.5 H, RDW Coeff of Guy 13.8, Plt Count 189, MPV 9.5, Immature Gran % (Auto) 0.100, Neut % (Auto) 70.6 H, Lymph % (Auto) 18.9 L, [place] % (Auto) 8.8, Eos % (Auto) 1.1, Baso % (Auto) 0.5, Absolute Neuts (auto) 5.2, Absolute Lymphs (auto) 1.39, Nucleated RBC % 0, Sodium 139, Potassium 4.2, Chloride 107, Carbon Dioxide 21.9, Anion Gap 10, BUN 19, Creatinine 1.28 H, Estim Creat Clear Calc 26.74 L, Est GFR (MDRD) Non-Af 41 L, BUN/Creatinine Ratio 15.0, Glucose 86, Calcium 9.1 Radiography Diagnostic Testing: Radiology Impression Carotid Duplex 11/16/24 22:43 Interpretation Summary Severe (>70%) stenosis right extracranial internal carotid. Mild (<50%) stenosis left extracranial internal carotid. Flow within the vertebral arteries is antegrade bilaterally. Elevated velocities are noted in the right external carotid artery, indicative of stenosis >50%. Ordering Physician: Randall Eid Referring Physician: Jian Viveros Performed By: Srinath ROSALES RDCS, Estelita and Student D/C Instructions Discharge Activity: Return to Normal Activity Weight Bearing Status: Weight bearing as tolerated Call your doctor if you observe: Fever of 101 or Higher, Shortness of breath, Dizziness, Swelling in the ankles and Chest pain DC O2, CPAP, BIPAP Needs Home O2 Discharge instructions: No DC home with Oxygen: No Meaningful Use Info Meaningful Use Meaningful Use Diagnoses (Choose all that apply): None applicable Discharge Plan Admission Admit Date/Time: 11/16/24 22:35 Primary Reason for Your Visit: carotid stenosis, syncope Attending Provider: Winnie Segundo Primary Care Provider: Jian Viveros Consulting Providers: Randall Eid; Dieter Johnson Instructions Patient Instructions: Diagnosing Syncope, Carotid Artery Disease Discharge Orders/Prescriptions Prescriptions: Continued vitamin B complex Tablet 1 tab PO DAILY albuterol sulfate 90 mcg/actuation HFA aerosol inhaler 2 puff inhalation Q4H PRN (Reason: shortness of breath or wheezing) fluticasone propionate 50 mcg/actuation spray,suspension 1 spray intranasal DAILY cholecalciferol (vitamin D3) 125 mcg (5,000 unit) capsule 125 mcg PO DAILY omeprazole 40 mg capsule,delayed release(DR/EC) 40 mg PO QAM PreserVision AREDS-2 250-90-40-1 mg Capsule 1 cap PO BID levothyroxine 100 mcg tablet 100 mcg PO DAILY amlodipine 10 mg tablet 10 mg PO DAILY nitroglycerin 0.4 mg tablet, sublingual 0.4 mg SUBLINGUAL Q5-15M PRN (Reason: chest pain) Qty: 25 3RF Rx Instructions: until response; do not exceed 3 doses per episode amiodarone 200 mg tablet 200 mg PO DAILY Qty: 90 3RF apixaban 5 mg tablet 5 mg PO BID Qty: 180 3RF Referrals / Follow Up: Dieter Johnson MD [Med Staff - Active Staff] - 11/26/24 12:30 pm Jian Viveros MD [Primary Care Provider] - 11/21/24 10:30 am Disposition Disposition (needs filled in before D/C Order can be placed): Home Health Service Charges/Coding Visit Charges Inpatient E&M: 76797 Disch Hosp >30min
--- NOTE | 2024-11-19 18:10 | PN_ITS ---
Subjective Subjective Patient seen and examined. She had no active complaints today. She had an uneventful night. Carotid USG showed right carotid artery stenosis. Vascular surgery reviewed her and recommended outpatient follow up. Plan was to discharge today but she said she did not have a ride in the evening. Objective Data Objective Data Vital Signs: Vital Signs Temp Pulse Resp BP Pulse Ox O2 Del Method 97.8 F 59 L 14 115/53 L 100 Room Air 11/19/24 11:51 11/19/24 11:51 11/19/24 11:51 11/19/24 11:51 11/19/24 11:51 11/19/24 14:00 Oxygen Delivery Method Room Air Weight: 135 lb 12.876 oz Body Mass Index (BMI) 23.3 Intake & Output: Intake and Output for Last 24 Hours 11/17/24 11/18/24 11/19/24 23:59 23:59 23:59 Intake Total 1650 / 1650 500 / 500 250 / 250 Output Total 650 / 650 650 / 650 Balance 1000 / 1000 -150 / -150 250 / 250 Medical Nutrition Assessment Dietitian: Malnutrition Criteria Met Start: 11/17/24 14:53 Freq: Status: Active Protocol: Document 11/17/24 14:53 RMA (Rec: 11/17/24 14:53 RMA [id number]) Nutrition Malnutrition Evidence of Yes Malnutrition Exists Malnutrition (severe Chronic ): Evidenced By Suboptimal Energy Intake (Severe),Weight Loss (Severe) Clinical Problem Chronic Disease or Condition Related Malnutrition Etiology severe protein-calorie malnutrition in the context of chronic disease and debility related to inadequate energy intake Signs/Symptoms as evidenced by ~9% unintentional weight loss x past 3- 4 months; BMI 21.8; PO meeting less than 75% estimated nutrition needs x past 3 months Status Active Problem Recommendation Dietitian Will liberalize diet to Regular. Recommendations/ Will d/c ensure plus HP w/ medpass and add 240mL ensure Changes plus HP with breakfast tray. Will add magic cup w/ lunch and dinner tray as tolerated. Trend weights as able and adjust ONS to support weight stability. Lab / Micro Data 11/19/24 08:40 11/19/24 08:40 Labs: Laboratory Results - last 24 hr 11/19/24 08:40: WBC 7.8, RBC 3.35 L, Hgb 10.5 L, Hct 31.3 L, MCV 93.4, MCH 31.3, MCHC 33.5, RDW Std Deviation 47.7 H, RDW Coeff of Guy 13.9, Plt Count 206, MPV 9.7, Immature Gran % (Auto) 0.400, Neut % (Auto) 78.7 H, Lymph % (Auto) 11.8 L, [place] % (Auto) 7.7, Eos % (Auto) 0.9, Baso % (Auto) 0.5, Absolute Neuts (auto) 6.1, Absolute Lymphs (auto) 0.92, Nucleated RBC % 0, Sodium 139, Potassium 3.9, Chloride 108, Carbon Dioxide 21.9, Anion Gap 10, BUN 19, Creatinine 1.27 H, E stim Creat Clear Calc 26.95 L, Est GFR (MDRD) Non-Af 41 L, BUN/Creatinine Ratio 14.9, Glucose 90, Calcium 9.2 Radiography Diagnostic Testing: Radiology Impression Carotid Duplex 11/16/24 22:43 Interpretation Summary Severe (>70%) stenosis right extracranial internal carotid. Mild (<50%) stenosis left extracranial internal carotid. Flow within the vertebral arteries is antegrade bilaterally. Elevated velocities are noted in the right external carotid artery, indicative of stenosis >50%. Ordering Physician: Randall Eid Referring Physician: Jian Viveros Performed By: Srinath ROSALES RDCS, Estelita and Student Rhythm Strip Rhythm Strip: Paced Rate: 60 Ectopy: None Physical Exam Const alert, oriented x3, no apparent distress, average body habitus and well nourished Constitutional Narrative: frail General Appearance: cooperative HEENT normocephalic, head/scalp atraumatic, hearing grossly normal bilaterally, moist oral mucous membranes and oropharynx normal Eyes PERRL, EOMs intact bilaterally and conjunctivae normal Neck no lymphadenopathy, supple and no JVD Lymph Lymphatic: no lymphedema noted Resp normal respiratory effort, normal air movement, no retractions, no use of accessory muscles and clear to auscultation bilaterally Cardio regular rate, regular rhythm, S1 normal heart sound, S2 normal heart sound and no murmurs GI normal to inspection, nondistended, normoactive bowel sounds, soft to palpation, non-tender and non-distended Extremity normal to inspection, full ROM, normal capillary refill, no clubbing, cyanosis or edema and no calf tenderness General Extremity: no tenderness to palpation of joints or extremities Skin General Skin Exam: no breakdown Neuro oriented x3, CN's II-XII intact bilaterally, moves all extremities and no focal motor deficits Sensorium / Orientation: awake, alert and oriented to time Speech: speech normal Motor Exam: strength 5/5 throughout and general weakness Psych thought process normal, cooperative and affect normal Appearance: appropriate 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 * had had several episodes of diarrhea prior to admission. * 2D echo showed EF of 55-60% and normal LV systolic function. * being hydrated with IVF NS @ 125cc/hr * BP running low in the 90s systolic * carotid duplex done showed severe right carotid artery stenosis (>70%). * #Carotid artery stenosis * carotid duplex as above. vascular surgery evaluated patient and recommended that patient follow up on outpatient basis for evaluation for carotid endarterectomy. * #Diarrhea: * diarrhea largely resolved. * Stool for occult blood pending, though Hb has remained stable at 10.5 #Debility and weakness * This is chronic. Has known ambulatory dysfunction in the setting of osteoarthritis with previous back surgery. * PT OT on board. Fall precautions. * #Paroxysmal A-fib: On amiodarone and Eliquis. #Benign essential hypertension: On amlodipine. Will hold as blood pressure is running low. Hypothyroidism: On Synthroid #S/p stents in 2018: Stable. #History of sick sinus syndrome s/p pacemaker: Stable. #GERD: On PPI DVT prophylaxis: on eliquis. Disposition: * dc home tomorrow. Said she could not get a ride home today. * will dc tomorrow. Charges/Coding Visit Charges Inpatient E&M: 17251 Subs Hosp L2
[2024-11-19 18:49] VITALS: BP 134/59; PULSE 59; RESP 16; TEMP 37.1; O2SAT 99
[2024-11-19 20:09] VITALS: BP 116/61; PULSE 60; RESP 16; TEMP 36.5; O2SAT 97
[2024-11-20 02:25] VITALS: BP 129/59; PULSE 60; RESP 15; TEMP 36.8; O2SAT 99
[2024-11-20 03:06] VITALS: BMI 21.4
[2024-11-20 03:51] VITALS: PULSE 61
[2024-11-20] MEDS: 0.9% Saline Lock 10 ML Syringe IV (05:19)
[2024-11-20 05:54] LABS: Hematocrit 30.4 % (37-47); Hemoglobin 10.0 g/dL (12.0-15.0); Immature Granulocytes Count 0.010 X10^3/uL (0.0-0.0); Mean Corp Hgb Conc 32.9 g/dL (32-36); Mean Corpuscular Volume 93.3 fL (81-99); Mean Platelet Vol. 9.5 fl (6.2-12.0); NRBC Flagged by Analyzer 0 % (0-5); Platelet Count 189 K/mm3 (150-450); RBC Distribution Width CV 13.8 % (11.6-14.6); RBC Distribution Width SD 46.5 fl (35.1-43.9); Red Blood Count 3.26 M/mm3 (4.2-5.4); White Blood Count 7.4 K/mm3 (4.4-11.0)
[2024-11-20 06:20] LABS: Anion Gap 10 (5-15); BUN 19 mg/dL (4-19); BUN/Creat Ratio 15.0 RATIO (10-20); Calcium,Total 9.1 mg/dL (7.6-11.0); Carbon Dioxide 21.9 mmol/L (21.0-32.0); Chloride 107 mmol/L (98-108); Estimated Creatinine Clearance 26.74 ml/min (50-250); Glucose 86 mg/dL (70-99); Potassium 4.2 mmol/L (3.3-5.1)
[2024-11-20 09:00] VITALS: BP 106/51; PULSE 69; RESP 16; TEMP 36.6; O2SAT 99
[2024-11-20] MEDS: Multivitamin (Healthy Eyes) Capsule 1 CAP PO (09:42)
[2024-11-20] MEDS: Cholecalciferol (Vit D3) 125 MCG CAPSULE (5,000 UNITS) PO (09:42)
[2024-11-20] MEDS: APIXABAN 5 MG TABLET PO (09:42)
[2024-11-20] MEDS: Fluticasone 0.05% 1 SPRAY NASAL.SRY NASAL (09:43)
[2024-11-20] MEDS: Magnesium Chloride 64 MG Delay Rel.Tablet 128 MG PO (09:43)
[2024-11-20] MEDS: Vitamin B Comp W-C Capsule 1 CAP PO (09:59)
[2024-11-20] MEDS: Polyethylene Glycol 3350 17 GM PACKET PO (10:23)
--- NOTE | 2024-11-20 11:43 | CASEMGMT ---
Patient has order for discharge. JO VARELA updated [facility] elementary secretary to schedule PCP as soon as available, as PCP requires appt prior to C setup. Appt schedule for tomorrow at 10:30. JO VARELA called and updated [facility] of discharge and PCP follow-up appt, start of care planned for Sunday. JO VARELA in to discuss discharge with patient and updated regarding PCP appt. Patient is not sure if she would have transportation and ask RN NICHOLE to call her friend Claire. Patient called Claire and this RN CM updated her regarding appt tomorrow with PCP at 1030. Claire states she was planning to pick patient up at 11:00 to take to the bank but it is no problem for her to come at 1000 to take her to PCP appt. Patient states she doesn't like to bother people for help as she knows they are busy. JO VARELA encouraged patient that it is okay to ask for help. Patient inquired about help with transportation and JO VARELA informed patient we could provided resources. Patient voiced appreciation and had no further questions or concerns. JO VARELA updated SW regarding request for transportation information.
--- NOTE | 2024-11-20 12:04 | CASEMGMT ---
Social Work SW provided pt with verbal and written information regarding transportation services in the area incluiding [facility], [facility], and [employer] resources. Pt appreciative of resources. BRYCE Pike
== END 2024-11-20 13:57 | disposition home health service (06) | DRG 641 ==
LOC: ED 21:49 → PCU 22:48
PROVIDERS: Admitting Provider Internal Medicine; Emergency Provider Emergency Medicine; PCP Family Medicine; Visit Provider Student in an Organized Health Care Education/Training Program
DX: E86.0 Dehydration (principal); A09 Infectious gastroenteritis and colitis, unspecified; R62.7 Adult failure to thrive; E03.9 Hypothyroidism, unspecified; I48.0 Paroxysmal atrial fibrillation; E66.3 Overweight; J44.9 Chronic obstructive pulmonary disease, unspecified; G25.81 Restless legs syndrome; I10 Essential (primary) hypertension; I34.0 Nonrheumatic mitral (valve) insufficiency; I65.21 Occlusion and stenosis of right carotid artery; E78.5 Hyperlipidemia, unspecified; I25.10 Atherosclerotic heart disease of native coronary artery without angina pectoris; K59.00 Constipation, unspecified; K21.9 Gastro-esophageal reflux disease without esophagitis; Z86.711 Personal history of pulmonary embolism; Z95.0 Presence of cardiac pacemaker; Z68.25 Body mass index [BMI] 25.0-25.9, adult; Z95.5 Presence of coronary angioplasty implant and graft; R53.1 Weakness; Z79.01 Long term (current) use of anticoagulants; Z79.899 Other long term (current) drug therapy; Z79.890 Hormone replacement therapy; Z82.49 Family history of ischemic heart disease and other diseases of the circulatory system; Z86.718 Personal history of other venous thrombosis and embolism; Z87.891 Personal history of nicotine dependence; R53.81 Other malaise; R29.6 Repeated falls; R10.11 Right upper quadrant pain; R55 Syncope and collapse
CPT/HCPCS: 36415; 70450; 71046; 72125; 74177; 76705; 80048; 80053; 81001; 82150; 82607; 82746; 83690; 83735; 84100; 84443; 84484; 85025; 93005; 93306; 93880; 94668; 97162; 97166; 97530; 97535; 97802; 99285; Q9967; A4216

== ENCOUNTER → 2024-11-21 | Outpatient (CLI) | payer MEDICARE, SELFPAY ==
[2017-06-01 08:52] VITALS: BMI 24.1
--- NOTE | 2024-11-21 11:01 | RAD_ITS ---
PROCEDURE: ABD INC DECUB AND/OR ERECT 11/21/2024 REASON FOR EXAM: Constipation TECHNIQUE: Procedure Code: RADABDMV Modality: DX Procedure: ABD INC DECUB AND/OR ERECT COMPARISON: Acute abdominal series, 11/06/2024. FINDINGS: There is a nonobstructive bowel gas pattern. There is stool throughout the colon. Status post multilevel lumbar laminectomy and posterior metallic fusion at L2-3 and bony fusion L3-4 and L4-5. There are no abnormal soft tissue calcifications. Note is made of a dual lead pacemaker. RAD/Abd Inc Decub and/or Erect IMPRESSION: Mild constipation. Other findings as noted. Reading Location: [id number]
[2024-11-21 12:58] LABS: Hematocrit 33.3 % (37-47); Hemoglobin 11.1 g/dL (12.0-15.0); Immature Granulocytes Count 0.030 X10^3/uL (0.0-0.0); Mean Corp Hgb Conc 33.3 g/dL (32-36); Mean Corpuscular Volume 93.8 fL (81-99); Mean Platelet Vol. 9.9 fl (6.2-12.0); NRBC Flagged by Analyzer 0 % (0-5); Platelet Count 253 K/mm3 (150-450); RBC Distribution Width CV 13.8 % (11.6-14.6); RBC Distribution Width SD 47.9 fl (35.1-43.9); Red Blood Count 3.55 M/mm3 (4.2-5.4); White Blood Count 7.3 K/mm3 (4.4-11.0)
[2024-11-21 13:33] LABS: AST(SGOT) 53 U/L (<=31); Alanine Aminotransfer ALT/SGPT 64 U/L (<=34); Albumin, Serum 3.8 g/dL (3.4-4.8); Alkaline Phosphatase 90 U/L (35-104); Anion Gap 12 (5-15); BUN 21 mg/dL (4-19); BUN/Creat Ratio 13.4 RATIO (10-20); Calcium,Total 9.5 mg/dL (7.6-11.0); Carbon Dioxide 22.3 mmol/L (21.0-32.0); Chloride 103 mmol/L (98-108); Globulin 2.8 g/dL (2.2-4.2); Glucose 95 mg/dL (70-99); Potassium 4.5 mmol/L (3.3-5.1)
== END | disposition home or self-care (01) ==
LOC: MTLAB 10:57
PROVIDERS: PCP Family Medicine; Referring Provider Family Medicine; Visit Provider Family Medicine
DX: R19.7 Diarrhea, unspecified (principal); K59.00 Constipation, unspecified
CPT/HCPCS: 36415; 74019; 80053; 85025

== ENCOUNTER → 2025-02-04 | Outpatient (CLI) | payer MEDICARE, SELFPAY ==
[2017-06-01 08:52] VITALS: BMI 24.1
[2025-02-04 16:10] LABS: AST(SGOT) 42 U/L (<=31); Alanine Aminotransfer ALT/SGPT 31 U/L (<=34); Albumin, Serum 4.1 g/dL (3.4-4.8); Alkaline Phosphatase 89 U/L (35-104); Anion Gap 11 (5-15); BUN 23 mg/dL (4-19); BUN/Creat Ratio 15.9 RATIO (10-20); Calcium,Total 9.6 mg/dL (7.6-11.0); Carbon Dioxide 20.6 mmol/L (21.0-32.0); Chloride 105 mmol/L (98-108); Globulin 2.9 g/dL (2.2-4.2); Glucose 89 mg/dL (70-99); Potassium 4.5 mmol/L (3.3-5.1)
== END | disposition home or self-care (01) ==
LOC: MFPLAB 11:23
PROVIDERS: PCP Family Medicine; Visit Provider Family Medicine
DX: L29.9 Pruritus, unspecified (principal)
CPT/HCPCS: 36415; 80053

== ENCOUNTER → 2025-03-04 | Outpatient (CLI) | payer MEDICARE, SELFPAY ==
[2017-06-01 08:52] VITALS: BMI 24.1
--- NOTE | 2025-03-04 11:40 | RAD_ITS ---
PROCEDURE: CHEST PA AND LATERAL 03/04/2025 REASON FOR EXAM: SOB, COUGH TECHNIQUE: Procedure Code: RADCXR Modality: DX Procedure: CHEST PA AND LATERAL COMPARISON: November 16, 2024. FINDINGS: Hardware: A right-sided dual-chamber pacemaker is seen. Heart: Borderline cardiomegaly. Mediastinum: Atherosclerotic calcification of the aortic arch. Lungs: Vascular congestion and CHF. Small bilateral pleural effusions. Bones: Degenerative changes are identified within the thoracic spine. RAD/Chest PA and Lateral IMPRESSION: Small bilateral pleural effusions. CHF. Reading Location: [id number]
[2025-03-04 11:50] LABS: Mucous, Urine 0 SEEN /hpf (<or=2+); Red Blood Cells-Urine 0 SEEN /hpf (0-5)
[2025-03-04 15:33] LABS: Color, Urine Yellow (Yellow); Glucose, Dipstick Normal (Normal); Ketone-Dipstick 5 mg/dl (Negative); Leukocyte Esterase-Dipstick 25 /ul (Negative); Nitrite-Dipstick Negative (Negative); Occult Blood-Urine Negative /ul (Negative); Protein-Dipstick 30 mg/dl (Negative); Specific Gravity, Urine 1.015 (1.002-1.030); Urine Bilirubin Dipstick Negative (Negative)
[2025-03-04 15:33] LABS: Hematocrit 30.3 % (37-47); Hemoglobin 9.6 g/dL (12.0-15.0); Immature Granulocytes Count 0.030 X10^3/uL (0.0-0.0); Mean Corp Hgb Conc 31.7 g/dL (32-36); Mean Corpuscular Volume 95.3 fL (81-99); Mean Platelet Vol. 9.9 fl (6.2-12.0); NRBC Flagged by Analyzer 0 % (0-5); Platelet Count 279 K/mm3 (150-450); RBC Distribution Width CV 14.0 % (11.6-14.6); RBC Distribution Width SD 49.0 fl (35.1-43.9); Red Blood Count 3.18 M/mm3 (4.2-5.4); White Blood Count 8.0 K/mm3 (4.4-11.0)
[2025-03-04 15:43] LABS: Squamous Epithelial Cells - UA 10-25 SEEN /hpf (5-10)
[2025-03-04 16:05] LABS: AST(SGOT) 70 U/L (<=31); Alanine Aminotransfer ALT/SGPT 56 U/L (<=34); Albumin, Serum 3.8 g/dL (3.4-4.8); Alkaline Phosphatase 91 U/L (35-104); Anion Gap 11 (5-15); BUN 17 mg/dL (4-19); BUN/Creat Ratio 12.0 RATIO (10-20); Calcium,Total 8.9 mg/dL (7.6-11.0); Carbon Dioxide 22.1 mmol/L (21.0-32.0); Chloride 101 mmol/L (98-108); Cholesterol 125 mg/dL (<=200); Globulin 2.8 g/dL (2.2-4.2); Glucose 88 mg/dL (70-99); Low Density Lipoprotein Calc. 48 mg/dL; Magnesium 1.9 mg/dL (1.5-2.2); Potassium 4.4 mmol/L (3.3-5.1); Triglycerides 63 mg/dL; Very Low Density Lipoprotein 13 mg/dL (5-40); cholesterol:hdl ratio screen 1.96
[2025-03-05 15:04] LABS: Ferritin 34 ng/mL (22-378); Vitamin B12 300 pg/mL (180-914)
[2025-03-05 16:23] LABS: Iron 34 ug/dL (50-170); Iron Binding Capacity,Total 287 ug/dL (250-450); Iron Binding Capacity,Unsat 253 ug/dL (228-428)
== END | disposition home or self-care (01) ==
LOC: MTLAB 11:40
PROVIDERS: PCP Family Medicine; Referring Provider Family Medicine; Visit Provider Family Medicine
DX: D64.9 Anemia, unspecified (principal); R06.02 Shortness of breath; I10 Essential (primary) hypertension; E03.9 Hypothyroidism, unspecified; R05.9 Cough, unspecified
CPT/HCPCS: 36415; 71046; 80053; 80061; 81001; 82607; 82728; 83540; 83550; 83735; 84439; 84443; 85025